=== PATIENT | male | born 1940 | race Caucasian/White ===

== ENCOUNTER 2017-11-26 07:51 | Inpatient (IN) | payer MEDICARE, OTHER, SELFPAY ==
[2017-11-12 10:12] VITALS: BP 106/60; PULSE 57; RESP 16; TEMP 36.9; O2SAT 97; BMI 27.7
[2017-11-12 11:00] LABS: Absolute Neutrophil Count 4.2 X10^3/uL (2.0-7.7); Basophil# 0.01 X10^3/uL; Basophil% 0.2 % (0-1); Eosinophil# 0.22 X10^3/uL; Eosinophils% 3.4 % (0-5); Hematocrit 39.3 % (40-54); Hemoglobin 13.3 g/dl (13.0-16.5); Lymphocyte % 23.3 % (19-41); Mean Corp Hgb Conc 33.8 g/gl (32-36); Mean Corpuscular Hgb 28.8 pg (27.0-32.0); Mean Corpuscular Volume 85.1 fL (80-94); Mean Platelet Vol. 9.3 fl (6.2-12.0); Monocyte# 0.53 X10^3/uL; Monocyte% 8.2 % (0-10); Neutrophil # 4.18 X10^3/uL (2.7-7.7); Neutrophil % 64.7 % (47-70); POSITIVE COUNT NO; POSITIVE DIFFERENTIAL NO; POSITIVE MORPHOLOGY NO; Platelet Count 118 K/mm3 (150-450); RBC Distribution Width SD 46.7 fl (35.1-43.9); Red Blood Count 4.62 M/mm3 (4.6-6.2); White Blood Count 6.5 K/mm3 (4.4-11.0)
[2017-11-12 11:13] LABS: Anion Gap 7 (5-15); BUN 22 mg/dL (7-18); BUN/Creat Ratio 22.4 RATIO (10-20); Calcium,Total 8.8 mg/dL (8.5-10.1); Chloride 108 mmol/L (98-107); Creatinine, Serum 0.98 mg/dL (0.70-1.30); EST Glomerular Filtration Rate 78 mL/min (>60); Est Glom Filt Rate - Afr Amer 95 mL/min (>60); Estimated Creatinine Clearance 58.08 ml/min; Glucose 122 mg/dL (74-106); Potassium 4.2 mmol/L (3.5-5.1); Sodium Level 139 mmol/L (136-145)
--- NOTE | 2017-11-12 21:45 | PCM.HP.BLA ---
History and Physical DATE OF SURGERY: 11/26/2017 SCHEDULED PROCEDURE: Direct anterior left total hip arthroplasty HISTORY OF PRESENT ILLNESS: This is a 77-year-old male who is been having ongoing left hip pain for several years. Patient recently in April 2017 had back surgery. Since then he has had progressively worsening pain in his left hip. Patient states his pain is aching and sharp. He has increased pain going up and down stairs, sitting for extended periods of time, and prolonged walking. Patient does have occasional start up pain. Pain can reach as high as an 8 out of 10. Patient does have pain in the left buttock and left thigh region. Patient has been through previous physical therapy. Patient denies previous surgery on the left hip. Patient states the left hip pain has been affecting his activities of daily living. X-rays of the left hip reveal severe osteoarthritis. Patient has had a previous right total hip replacement by Dr. Tafoya in 2004. After failing conservative measures and discussing all treatment options with Dr. Lewis, the patient would like to proceed with a left total hip arthroplasty. Patient does have a medical history pertinent for coronary artery disease and hypertension. Patient has had a previous heart bypass surgery in 1996. 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 Patient has had a previous stress echocardiogram in January 2017 which was negative for ischemia. Patient has obtained surgical clearance from his primary care physician and circuitry negative inspector Dr. Ramires. Patient currently denies any chest pain, shortness of breath, fevers chills, or recent infections. REVIEW OF SYSTEMS: ROS: Const: Denies anorexia, anxiety, change in appetite, fever and weight change,hard of hearing, and vision problems. CV: Denies chest pain, heart murmur, irregular heartbeat and peripheral vascular disease. Resp: Denies asthma, cough, pneumonia, sleep apnea, shortness of breath, tuberculosis and wheezing. GI: Reports heartburn, but denies constipation, diarrhea, nausea, bloody stools and vomiting, and difficulity swallowing. : . (F Genital Sx) Denies incontinence. Musculo: Reports trouble walking, but denies ambulatory dysfunction, leg swelling and weakness and limp. Skin: Denies Raynaud's, history of shingles and tattoo. Neuro: Reports numbness/tingling but denies ambulatory dysfunction, dizziness and tremor. Psych: Denies anxiety, depression, insomnia, mental illness and stress. Andreas/Lymph: Denies anemia, bleeding/bruising tendency and past transfusion. Reviewed, no changes. PAST MEDICAL HISTORY: Advance Care Plan: Other Directive, LIVING WILL Effective Date: 05/14/2016 PMH: Medical Problems: Arthritis, Coronary Artery Disease (CAD), Hypercholesterolemia, Aneurysm, High Blood Pressure Accidents: None Surgical Hx: Heart Bypass (CABG) - (1996) [facility] Tonsillectomy - (1946) [place] Hip Replacement - (2004) RT [facility] [facility] [place] [facility] [place] Lower Abdominal Anuresym Back - (2016) Anesthesia Complications: Nausea, Vomiting Assistive Devices: Glasses, Dentures Reviewed, no changes. SOCIAL HISTORY: SH: Marital: .Occupation: Retired.Work Status: Retired - (2000).Hand Dominance: Right-handed. Personal Habits: Smoking: Patient is a former smoker.Cigarette Use: Former - 2PKS/DAY- 25YRS.Alcohol: Denies use.Drug Use: Denies Use.Enjoy Exercising: Exercises 1-3 x/month. Reviewed, no changes. VITALS: Ht: 67 Wt: 177lb Wt k.287 BMI: 27.7 BP: 100/70 Pulse: 68 Resp: 16 T: 97.8 T: 36.6C ALLERGIES: No Known Drug Allergy MEDICATIONS: Simvastatin 40 mg 1 po qd, Isosorbide 10 mg one A day, Atenolol 25 mg 1 PO qd, Omeprazole 20 mg 1 PO daily, Amlodipine Besylate 5 mg 1 by mouth every day, Lisinopril 10 mg 1 by mouth every day, Clopidogrel Bisulfate 75 mg 1 by mouth every day, Tamsulosin HCL 0.4 mg 1 by mouth every day, Aspirin 81 mg 1 by mouth every day, Preservision Areds one PO daily PRE-OP EXAM: General appearance:NORMAL Other: Eyes: Conjunctivae and lids: NORMAL Pupils: ERR Ears, Nose, Mouth, and Throat: NORMAL Other: Inspection of lips, teeth and gums: NORMAL Other: Neck: Examination of neck: no masses noted. Respiratory: Assessment of respiratory effort: NORMAL Other: Ausculation of lungs: clear to ausculation no wheeses, ronchi or rales. Cardiovascular: Ausculation of heart: regular rate and rhythem, no mummurs, gallops or rubs. Exam of carotid arteries: NORMAL Other: Gastrointestinal: Exam of abdomen: soft, nontender, nondistended bowel sounds present. PHYSICAL EXAMINATION: Patient walks with an antalgic gait. Patient has increased pain with left hip range of motion. Internal rotation is to neutral. Flexion to 90?. Sensations intact to light touch. IMAGING STUDIES: 1. X-rays were obtained at [facility] on September 25, 2017 which reveals joint space narrowing, subchondral sclerosis, and osteophyte formation consistent with severe osteoarthritis. There is also evidence of recent lumbar fusion with hardware and previous right total hip arthroplasty. IMPRESSION: 1. Severe left hip osteoarthritis 2. Presence of right total hip arthroplasty 3. Coronary artery disease with previous heart bypass in 1996 4. History of stent placement in the aortoiliac secondary to aneurysm 5. Hyperlipidemia 6. Hypertension PLAN: Dr. Lewis did discuss and review with the patient all treatment options including surgical versus nonsurgical. Patient wishes to proceed with above-stated procedure. Potential risks, benefits, and complications of this procedure were discussed in detail including but not limited to , infection, nerve and blood vessel damage, persistent pain, numbness, tingling, paresthesias, blood clot, pulmonary embolism, and requirement for further surgery. The patient expressed full understanding has no further questions for the doctor. Patient does agree to proceed with the above-stated procedure and has signed the surgery consent form. Patient has obtained surgical clearance from primary care physician and circuitry negative inspector. We will stop patient's Plavix and aspirin with recommendations from circuitry negative inspector. ___ I have re-examined the patient. There are no clinical changes since date of exam. ___ See progress notes for changes. ___ Dictated on admission Date: Time: Signature:
--- NOTE | 2017-11-12 21:56 | HP.PCM_ITS ---
History and Physical DATE OF SURGERY: 11/26/2017 SCHEDULED PROCEDURE: Direct anterior left total hip arthroplasty HISTORY OF PRESENT ILLNESS: This is a 77-year-old male who is been having ongoing left hip pain for several years. Patient recently in April 2017 had back surgery. Since then he has had progressively worsening pain in his left hip. Patient states his pain is aching and sharp. He has increased pain going up and down stairs, sitting for extended periods of time, and prolonged walking. Patient does have occasional start up pain. Pain can reach as high as an 8 out of 10. Patient does have pain in the left buttock and left thigh region. Patient has been through previous physical therapy. Patient denies previous surgery on the left hip. Patient states the left hip pain has been affecting his activities of daily living. X-rays of the left hip reveal severe osteoarthritis. Patient has had a previous right total hip replacement by Dr. Tafoya in 2004. After failing conservative measures and discussing all treatment options with Dr. Lewis, the patient would like to proceed with a left total hip arthroplasty. Patient does have a medical history pertinent for coronary artery disease and hypertension. Patient has had a previous heart bypass surgery in 1996. 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 Patient has had a previous stress echocardiogram in January 2017 which was negative for ischemia. Patient has obtained surgical clearance from his primary care physician and patient access registrar Dr. Ramires. Patient currently denies any chest pain, shortness of breath, fevers chills, or recent infections. REVIEW OF SYSTEMS: ROS: Const: Denies anorexia, anxiety, change in appetite, fever and weight change, hard of hearing, and vision problems. CV: Denies chest pain, heart murmur, irregular heartbeat and peripheral vascular disease. Resp: Denies asthma, cough, pneumonia, sleep apnea, shortness of breath, tuberculosis and wheezing. GI: Reports heartburn, but denies constipation, diarrhea, nausea, bloody stools and vomiting, and difficulity swallowing. : . (F Genital Sx) Denies incontinence. Musculo: Reports trouble walking, but denies ambulatory dysfunction, leg swelling and weakness and limp. Skin: Denies Raynaud's, history of shingles and tattoo. Neuro: Reports numbness/tingling but denies ambulatory dysfunction, dizziness and tremor. Psych: Denies anxiety, depression, insomnia, mental illness and stress. Andreas/Lymph: Denies anemia, bleeding/bruising tendency and past transfusion. Reviewed, no changes. PAST MEDICAL HISTORY: Advance Care Plan: Other Directive, LIVING WILL Effective Date: 05/14/2016 PMH: Medical Problems: Arthritis, Coronary Artery Disease (CAD), Hypercholesterolemia, Aneurysm, High Blood Pressure Accidents: None Surgical Hx: Heart Bypass (CABG) - (1996) [facility] Tonsillectomy - (1946) [place] Hip Replacement - (2004) [place] [facility] [place] [facility] [place] Abdominal Anuresym Back - (2016) Anesthesia Complications: Nausea, Vomiting Assistive Devices: Glasses, Dentures Reviewed, no changes. SOCIAL HISTORY: SH: Marital: .Occupation: Retired.Work Status: Retired - (2000).Hand Dominance: Right-handed. Personal Habits: Smoking: Patient is a former smoker.Cigarette Use: Former - 2PKS/DAY- 25YRS.Alcohol: Denies use.Drug Use: Denies Use.Enjoy Exercising: Exercises 1-3 x/month. Reviewed, no changes. VITALS: Ht: 67 Wt: 177lb Wt k.287 BMI: 27.7 BP: 100/70 Pulse: 68 Resp: 16 T: 97.8 T: 36.6C ALLERGIES: No Known Drug Allergy MEDICATIONS: Simvastatin 40 mg 1 po qd, Isosorbide 10 mg one A day, Atenolol 25 mg 1 PO qd, Omeprazole 20 mg 1 PO daily, Amlodipine Besylate 5 mg 1 by mouth every day, Lisinopril 10 mg 1 by mouth every day, Clopidogrel Bisulfate 75 mg 1 by mouth every day, Tamsulosin HCL 0.4 mg 1 by mouth every day, Aspirin 81 mg 1 by mouth every day, Preservision Areds one PO daily PRE-OP EXAM: General appearance:NORMAL Other: Eyes: Conjunctivae and lids: NORMAL Pupils: ERR Ears, Nose, Mouth, and Throat: NORMAL Other: Inspection of lips, teeth and gums: NORMAL Other: Neck: Examination of neck: no masses noted. Respiratory: Assessment of respiratory effort: NORMAL Other: Ausculation of lungs: clear to ausculation no wheeses, ronchi or rales. Cardiovascular: Ausculation of heart: regular rate and rhythem, no mummurs, gallops or rubs. Exam of carotid arteries: NORMAL Other: Gastrointestinal: Exam of abdomen: soft, nontender, nondistended bowel sounds present. PHYSICAL EXAMINATION: Patient walks with an antalgic gait. Patient has increased pain with left hip range of motion. Internal rotation is to neutral. Flexion to 90?. Sensations intact to light touch. IMAGING STUDIES: 1. X-rays were obtained at [facility] on September 25, 2017 which reveals joint space narrowing, subchondral sclerosis, and osteophyte formation consistent with severe osteoarthritis. There is also evidence of recent lumbar fusion with hardware and previous right total hip arthroplasty. IMPRESSION: 1. Severe left hip osteoarthritis 2. Presence of right total hip arthroplasty 3. Coronary artery disease with previous heart bypass in 1996 4. History of stent placement in the aortoiliac secondary to aneurysm 5. Hyperlipidemia 6. Hypertension PLAN: Dr. Lewis did discuss and review with the patient all treatment options including surgical versus nonsurgical. Patient wishes to proceed with above- stated procedure. Potential risks, benefits, and complications of this procedure were discussed in detail including but not limited to , infection , nerve and blood vessel damage, persistent pain, numbness, tingling, paresthesias, blood clot, pulmonary embolism, and requirement for further surgery. The patient expressed full understanding has no further questions for the doctor. Patient does agree to proceed with the above-stated procedure and has signed the surgery consent form. Patient has obtained surgical clearance from primary care physician and patient access registrar. We will stop patient's Plavix and aspirin with recommendations from patient access registrar. ___ I have re-examined the patient. There are no clinical changes since date of exam. ___ See progress notes for changes. ___ Dictated on admission Date: Time: Signature:
[2017-11-26] VITALS (9 sets, daily range): BP systolic 124–150; BP diastolic 57–79; PULSE 54–69; RESP 16–18; TEMP 36–36.8; O2SAT 94–98; BMI 27.7
[2017-11-26] MEDS: Celecoxib 200 MG Capsule 400 MG PO (08:36)
[2017-11-26] MEDS: Acetaminophen 500 MG Tablet 1000 MG PO ×3 (08:37→21:00)
[2017-11-26] MEDS: oxyCODONE HCl Cr 10 MG Tablet PO (08:37)
--- NOTE | 2017-11-26 10:35 | RAD_ITS ---
STUDY: X-RAY/FLUOROSCOPY - PELVIS AND LEFT HIP REASON FOR EXAM: Male, 77 years old. Right SAHIL. TECHNIQUE: Fluoroscopic assistance was provided to Dr. Slaughter. 3 intraoperative fluoroscopic spot views are submitted. COMPARISON: CT abdomen and pelvis June 03, 2017 FINDINGS: Images demonstrate prior bilateral total hip arthroplasties with bilateral bipolar hip prostheses. The left is new since the earlier CT. On the right, the femoral prosthesis is revised to include a metal ball at the femoral head. On the final image, the stem of the prosthesis remains well seated in the stillaguamish femur, and the ball of the prosthesis is in anatomic alignment with the acetabular prosthesis. Gas lucencies in the adjacent soft tissues are consistent with a surgical wound. RAD/Hip 1 view with Pelvis IMPRESSION: Revision of right total hip arthroplasty. Electronically Signed: Kenny Mike MD at 13:23 EDT , Service support ,
[2017-11-26] MEDS: Cefazolin 2 GM in 0.9% Normal Saline 100 ML IV (10:40)
--- NOTE | 2017-11-26 12:07 | OP.PCM_ITS ---
Report of Operation Date of Procedure: 11/26/17 Pre-Operative Diagnosis: Left hip primary osteoarthritis Post-Operative Diagnosis: Left hip primary osteoarthritis Surgery/Procedure Performed:: Left direct anterior total hip replacement Description of Surgical Findings:: stAble hip with equal leg lengths social worker palliative care: [place] Ruth Type of Anesthesia:: Spinal Anesthesiologist: Oswaldo Keller Special Medications: 2 g Ancef, 1 g TXA at incision, 1 g TXA closure, 10 mg Decadron, joint cocktail (5 mg Duramorph, 30 mL of 0.5% Ropivicaine, 1000 units of epinephrine, 30 mg of Toradol) Specimen's removed: Bony cuts Estimated Blood Loss (mL): 150 Fluids Replaced: 2000 mL crystalloid Description of Procedure: Components used: 1. Accolade 2 Phillip femoral stem size 9 127? 2. [place] trident acetabular shell size 60 mm 3. Phillip X3 polyethylene G 4. [place] Biolox delta 36mm, 2.5mm femoral head Brief history operative indications: 77 yo m who failed conservative measures for their hip osteoarthritis. X-rays were consistent with osteoarthritis including joint space narrowing, osteophyte formation and subchondral cysts. Total hip replacement was discussed with the patient with risks and benefits including but not limited to blood loss, DVTs, PEs, neurovascular damage, dislocation, general risks of anesthesia including loss of life. Patient demonstrated an understanding medical clearance is obtained the patient was consented for surgery. Procedure: On the date of procedure the patient's L hip was marked in the preoperative area. Patient was then taken back to the operating room where anesthesia assumed control of the C-spine and airway and administered anesthetic. Patient was transferred to the operating table and placed in the supine position. The hips were placed at the break of the bed and a sacral bump was placed. The L lower extremity was then prepped out in a sterile fashion using chlorhexidine while the surgeon scrubbed. The PA was vital in the positioning of the patient. Upon reentering the room the L lower extremity was draped in the standard orthopedic fashion and the incision was marked. A timeout was called and everyone agreed upon the side, the site, the procedure be performed, antibody given, and patient's identity. At this time incision was made through skin, subcutaneous tissue, and fat down to fascia. The fascia was then incised and the TFL was retracted laterally. A retractor was placed on the lateral border of the femoral neck. Attention was directed to the inferior portion of the approach and all crossing vessels were identified and appropriately coagulated. A retractor was then placed on the medial portion of the femoral neck. The anterior capsule was then cleared of all soft tissue and then H shaped capsulotomy was made. The retractors were then placed inside the capsule. The femoral neck was identified and a cleanup cut was made. At this time a power corkscrew was used to remove the femoral head. Attention was then turned toward the acetabulum where the soft tissues were appropriately retracted and the acetabulum was sequentially reamed to 59 mm. A 60 mm cup was then selected and impacted into place. Acetabular liner was impacted into place and locking mechanism was verified. The position of the acetabular cup was then verified under live fluoroscopy. Attention was then turned to the femur. Soft tissue releases on the medial and lateral femoral neck were appropriately done, the leg was externally rotated and lateralized. A Joel retractor was placed medially and proximally to the greater trochanter this allowed appropriate visualization and exposure of the femoral canal. Rongeour was then used to remove excess lateral bone. A canal finder and entry broach were used to open the proximal canal. Once we verified we were down the femoral canal we subsequently broached up to a size 9 femur. The appropriate neck was placed in the previously selected head was trialed with a 2.5 mm neck. Traction was pulled and the hip was reduced with internal rotation. Once it was appropriately reduced and stability was checked. There was minimal shuck, equal leg lengths and appropriate stability with hyperextension and external rotation as well as with 90? flexion and internal rotation. Fluoroscopy was then also used to verify the position of the components and leg lengths using the contralateral side for comparison. The trial components were then dislocated the proximal femur was again exposed and the components were removed from the wound. The final components were verified and opened. The wound was copiously irrigated out with normal saline. The acetabulum was checked for any residual debris. The final components were placed and impacted. Traction and internal rotation were again used to reduce the hip. After adequate reduction the hip remained stable with appropriate leg lengths. The final components were once again checked with live fluoroscopy and were found to be satisfactory. The wound was then copiously irrigated with normal saline once more, and hemostasis was obtained. Closure was then done using #1 Vicryl runner to close the fascia. A 2-0 vicryl interuppted sutures were used to close the subcutaneous skin. A 3-0 Monocryl and Steri-Strips were used for final skin closure. A Silverlon dressing was placed. Patient was awakened by anesthesia and transferred to the [facility]. Patient was then transferred to the PACU for recovery. Postoperative plan: Patient will get 24 hours postop antibiotics. Patient will get in-house physical therapy and will be weight-bear as tolerated. Patient will follow up in office in 2 weeks for a wound check and x-rays. Grafts/Implants Used: Phillip Accolade 2 - Complications NONE - Admit VTE Documentation VTE Present on Admission: No VTE Mechan Device Prophylaxis: SCD's, Thigh High DHAVAL Hose VTE Pharm Prophylaxis ordered?: Yes
--- NOTE | 2017-11-26 12:42 | RAD_ITS ---
STUDY: X-RAY - PELVIS AND LEFT HIP REASON FOR EXAM: Male, 77 years old. Postop. TECHNIQUE: Radiological exam, hip, unilateral, with pelvis when performed; 1 view COMPARISON: CT abdomen and pelvis June 03, 2017. FINDINGS: There is a non-specific bowel gas pattern. Gas lucencies overlap the left hip, consistent with recent surgery. There is narrowing with cortical sclerosis of the sacroiliac joints, consistent with degenerative osteoarthritic changes. Normal visualized iliac wings and sacrum. Normal bilateral superior and inferior pubic rami. There are stable degenerative changes of the pubic symphysis with articular narrowing. Normal bilateral ischial tuberosities. There have been bilateral total hip arthroplasties. The left is new since the 2017 CT. Following resection of the left femoral head and neck, and middle bipolar hip prosthesis was placed. The acetabular and femoral components appear well seated, and in anatomic alignment. Based on the contour of the femoral prosthesis on earlier fluoroscopic images, this appears to be the hip in view on that study. The right bipolar hip prosthesis appears well seated and in anatomic alignment. There is no demonstrated acute fracture. RAD/Hip Min 2 Views (Portable) IMPRESSION: Post left total hip arthroplasty. Electronically Signed: Kenny Mike MD at 13:28 EDT , Service support ,
[2017-11-26] MEDS: Scopolamine 1mg/72hr Patch 1 PATCH TD (12:50)
[2017-11-26] MEDS: Lactated Ringers 1,000 ML 125 ML IV ×3 (13:24→22:48)
[2017-11-26] MEDS: oxyCODONE 5 MG Tablet PO (16:18)
[2017-11-26] MEDS: Cefazolin 1 GM/50 ML BAG IV (18:35)
[2017-11-26] MEDS: Isosorbide DN 10 MG Tablet PO (20:59)
[2017-11-26] MEDS: Tamsulosin HCl 0.4 MG Capsule PO (20:59)
[2017-11-26] MEDS: Atenolol 25 MG Tablet PO (20:59)
[2017-11-26] MEDS: Aspirin 325 MG Tablet PO (20:59)
[2017-11-26] MEDS: Atorvastatin Calcium 10 MG Tablet PO (20:59)
[2017-11-26] MEDS: Lisinopril 20 MG Tablet PO (20:59)
[2017-11-26] MEDS: Senna/Docusate Sodium 1 Tablet 2 TABLET PO (21:00)
[2017-11-27] MEDS: Cefazolin 1 GM/50 ML BAG IV (02:47)
[2017-11-27 03:00] VITALS: BP 145/77; PULSE 62; RESP 16; TEMP 36.8; O2SAT 96
[2017-11-27] MEDS: oxyCODONE 5 MG Tablet PO (05:23)
[2017-11-27 06:24] LABS: Hematocrit 33.3 % (40-54); Hemoglobin 11.4 g/dl (13.0-16.5); Mean Corp Hgb Conc 34.2 g/gl (32-36); Mean Corpuscular Hgb 29.2 pg (27.0-32.0); Mean Corpuscular Volume 85.2 fL (80-94); Mean Platelet Vol. 9.3 fl (6.2-12.0); Platelet Count 112 K/mm3 (150-450); RBC Distribution Width CV 14.2 % (11.6-14.6); RBC Distribution Width SD 43.3 fl (35.1-43.9); Red Blood Count 3.91 M/mm3 (4.6-6.2); White Blood Count 8.2 K/mm3 (4.4-11.0)
[2017-11-27 06:30] LABS: Scan Indicated on CBC? Y/N NO
[2017-11-27 06:41] LABS: Anion Gap 7 (5-15); BUN 14 mg/dL (7-18); Calcium,Total 8.4 mg/dL (8.5-10.1); Chloride 106 mmol/L (98-107); Creatinine, Serum 0.78 mg/dL (0.70-1.30); EST Glomerular Filtration Rate 103 mL/min (>60); Est Glom Filt Rate - Afr Amer 124 mL/min (>60); Estimated Creatinine Clearance 56.92 ml/min; Glucose 108 mg/dL (74-106); Potassium 3.8 mmol/L (3.5-5.1); Sodium Level 139 mmol/L (136-145)
[2017-11-27] MEDS: Aspirin 325 MG Tablet PO (08:07)
[2017-11-27 08:08] VITALS: BP 130/78; PULSE 66; RESP 16; TEMP 36.6; O2SAT 97
[2017-11-27 08:15] VITALS: PULSE 68
[2017-11-27] MEDS: Acetaminophen 500 MG Tablet 1000 MG PO (08:57)
--- NOTE | 2017-11-27 09:31 | PCM.PN.ORT ---
Subjective: The patient was sitting in bedside chair upon examination. Patient denies any chest pain, shortness of breath, lightheadedness, nausea or vomiting, or calf pain. Patient did report dizziness initially while getting up but this has resolved. Pain is controlled on medications. No adverse overnight events. Overall patient is doing well and does wish to go home today. Physical therapy outpatient has been set up already. Objective: Vital signs stable and afebrile. Patient is able to plantarflex and dorsiflex actively. Sensation is intact to light touch to saphenous, sural, superficial and deep peroneal, and tibial distribution. Dressing is clean dry and intact. Negative Homans bilaterally, negative signs and symptoms of DVT. - Physical Exam General: Alert, Oriented x3, Cooperative, No apparent distress Vital Signs Temp Pulse Resp BP Pulse Ox 97.9 F 66 16 130/78 H 97 11/27/17 08:08 11/27/17 08:08 11/27/17 08:08 11/27/17 08:08 11/27/17 08:08 Oxygen Delivery Method Room Air Weight: 80.286 kg Body Mass Index (BMI) 27.7 Intake and Output for Last 24 Hours 11/25/17 11/26/17 11/27/17 23:59 23:59 23:59 Intake Total 4240 / 4240 1965 / 1965 Output Total 350 / 350 490 / 490 Balance 3890 / 3890 1475 / 1475 Laboratory Tests Past 24 Hrs 11/27/17 11/27/17 05:54 05:54 WBC 8.2 RBC 3.91 L Hgb 11.4 L Hct 33.3 L MCV 85.2 MCH 29.2 MCHC 34.2 RDW 14.2 RDW Differential 43.3 Plt Count 112 L MPV 9.3 Sodium 139 Potassium 3.8 Chloride 106 Carbon Dioxide 26.0 Anion Gap 7 BUN 14 Creatinine 0.78 Estim Creat Clear Calc 56.92 Est GFR (MDRD) Af Amer 124 Est GFR (MDRD) Non-Af 103 BUN/Creatinine Ratio 18.0 Glucose 108 H Calcium 8.4 L Medical Necessity - Tobacco Use Smoking Status: Former smoker Assessment/Plan 1. S/P left total hip arthroplasty POD #1 2. Continue Pain Medications: Tylenol and OxyIR 3. DVT Prophylaxis: Aspirin 325 mg twice daily 4. PT/OT: Weightbearing as tolerated 5. H & H: 11.4/33.3, asymptomatic 6. Encouraged Incentive Spirometry 7. Disposition: Orthopedically stable. Plan is for discharge home today. Patient will follow-up per postop instructions. Prescriptions will be E scribed to [facility].
--- NOTE | 2017-11-27 09:39 | DCINST_ITS ---
Discharge Diet: No Restrictions Discharge Activity: May Not Drive - while taking narcotic pain medications. May shower in (days): 1 - Turned dressing away from water Ice area for (Minutes): 20 - Every 1-2 hours while awake Weight Bearing Status: Weight bearing as tolerated Additional Activity Instructions:: Wear elastic stockings for 2 weeks. DO NOT use alcohol with narcotic pain medication. DO NOT make important decisions while taking narcotic medication. If you have problems with taking your medication (rash, itching, nausea, etc.) call the office at once. Call your doctor if your incision/area has: Increased Pain/ Swelling, Increased Redness, Foul Smelling Discharge Call your doctor if you observe: Fever of 101 or Higher Remove Dressing in (days):: 4 - Okay to remove dressing on December 01, 2017 Additional Instructions: Follow [facility] postop instructions Do not take baby aspirin 81 mg while taking full dose 325 mg aspirin Allergies/Adverse Reactions: Allergies No Known Allergies Allergy (Verified 11/12/17 09:56) Medications to take at Discharge Amlodipine [Norvasc] 5 mg PO DAILY 11/12/17 Atenolol [Tenormin (beta humaira)] 25 mg PO BID 11/12/17 Clopidogrel Bisulfate [Plavix] 75 mg PO DAILY 11/12/17 Isosorbide DN [Isordil] 10 mg PO BID 11/12/17 Lisinopril 20 mg PO BID 11/12/17 Omeprazole [Prilosec] 20 mg PO DAILY 11/12/17 Simvastatin 20 mg PO QHS 11/12/17 Tamsulosin HCl [Flomax] 0.4 mg PO DAILY 11/12/17 Vit A/Vit C/Vit E/Zinc/Copper [Preservision Areds Softgel] 1 each PO DAILY 11/12 Acetaminophen [Tylenol] 1,000 mg PO Q8 #90 tab 11/27/17 Aspirin 325 mg PO BIDCM #30 tab 11/27/17 Oxycodone [Oxyir] 5 - 10 mg PO Q4H PRN PRN 5 Days #60 tablet 11/27/17 Senna/Docusate Sodium [Senokot-S] 2 tab PO BID #20 tab 11/27/17 The following prescriptions were given: Oxycodone [Oxyir] 5 - 10 mg PO Q4H PRN PRN 5 Days #60 tablet PRN Reason: Mod-Severe Pain (4-06/03) Acetaminophen [Tylenol] 1,000 mg PO Q8 #90 tab Aspirin 325 mg PO BIDCM #30 tab Senna/Docusate Sodium [Senokot-S] 2 tab PO BID #20 tab Primary Care Physician: John Bernstein MD [Primary Care Provider] - Please Follow Up With: [facility] When: 12/01/17 @ 7:30 am Please Follow Up With: Andrey Johnson PA-C When: 12/10/17 @ 10:00 am
[2017-11-27] MEDS: Pantoprazole Sodium 20 MG Tablet PO (10:51)
[2017-11-27] MEDS: Clopidogrel Bisulfate 75 MG Tablet PO (10:51)
[2017-11-27] MEDS: Lisinopril 20 MG Tablet PO (10:51)
[2017-11-27] MEDS: Atenolol 25 MG Tablet PO (10:51)
[2017-11-27] MEDS: amLODIPine 5 MG Tablet PO (10:51)
[2017-11-27] MEDS: Senna/Docusate Sodium 1 Tablet 2 TABLET PO (10:51)
[2017-11-27] MEDS: Isosorbide DN 10 MG Tablet PO (10:51)
[2017-11-27] MEDS: Famotidine 20 MG Tablet PO (10:51)
[2017-11-27 13:24] VITALS: BP 135/74; PULSE 69; RESP 16; TEMP 36.7; O2SAT 98
== END 2017-11-27 13:43 | disposition home or self-care (01) | DRG 470 ==
LOC: ACINP 07:53 → MS3 08:09
PROVIDERS: Admitting Provider Specialist; Family Provider Family Medicine; PCP Family Medicine; Visit Provider Specialist
PROC: 0SRB0JZ Replacement of Left Hip Joint with Synthetic Substitute, Open Approach (ICD-10-PCS; CPT 27284; principal; 2017-11-26 09:50)
DX: M16.12 Unilateral primary osteoarthritis, left hip (principal); Z96.641 Presence of right artificial hip joint; E78.5 Hyperlipidemia, unspecified; I25.10 Atherosclerotic heart disease of native coronary artery without angina pectoris; K21.9 Gastro-esophageal reflux disease without esophagitis; I10 Essential (primary) hypertension; Z95.1 Presence of aortocoronary bypass graft; Z87.891 Personal history of nicotine dependence
CPT/HCPCS: 36415; 73501; 73502; 76000; 80048; 85025; 85027; 87081; 97110; 97116; 97162; 97165; 97530; 97802; 99251; J7120; G0463

== ENCOUNTER → 2019-03-03 06:58 | Outpatient (CLI) | payer MEDICARE, OTHER, SELFPAY ==
[2018-08-11 15:40] VITALS: BMI 28.6
[2019-03-03 09:05] LABS: AST(SGOT) 16 U/L (15-37); Alanine Aminotransfer ALT/SGPT 17 U/L (16-61); Albumin, Serum 3.8 g/dL (3.2-5.0); Alkaline Phosphatase 154 U/L (45-117); Bilirubin, Direct 0.13 mg/dL (0.00-0.30); Cholesterol 112 mg/dL (200); Globulin 3.6 g/dL (2.2-4.2); High Density Lipoprotein 29 mg/dL; Protein, Total 7.4 g/dL (6.4-8.2); Triglycerides 284 mg/dL; Very Low Density Lipoprotein 57 mg/dL (5-40)
== END ==
PROVIDERS: Family Provider Family Medicine; PCP Family Medicine; Referring Provider Internal Medicine Cardiovascular Disease; Visit Provider Internal Medicine Cardiovascular Disease
DX: I25.10 Atherosclerotic heart disease of native coronary artery without angina pectoris (principal); E78.2 Mixed hyperlipidemia
CPT/HCPCS: 36415; 80061; 80076

== ENCOUNTER → 2019-04-13 13:46 | Outpatient (CLI) | payer MEDICARE, OTHER, SELFPAY ==
[2019-03-25 11:05] VITALS: BMI 28.8
--- NOTE | 2019-04-13 13:48 | ECHOD_ITS ---
Reason For Study: S/P CABG Procedure This was a 2D Doppler, Color Flow transthoracic echocardiogram. Exam performed in department. Left Ventricle Mild concentric left ventricular hypertrophy. The estimated ejection fraction is 65 %. Stage 1 diastolic dysfunction. No regional wall motion abnormalities noted. Right Ventricle Mildly dilated right ventricle. Normal systolic function. Atria Normal left atrium. Normal right atrium. Normal atrial septum. Mitral Valve The mitral valve is structurally normal. No prolapse or stenosis seen. Tricuspid Valve Normal tricuspid valve. Trivial tricuspid valve insufficiency. Right ventricular systolic pressure estimated to be 33 mmHg. Aortic Valve Trisinus/trileaflet aortic valve. Trivial aortic valve insufficiency. Pulmonic Valve Normal pulmonic valve. Trivial pulmonic valve insufficiency. Great Vessels Normal aortic root. Moderate atherosclerosis of the aortic arch. Normal inferior vena cava. Inferior vena cava collapse with sniff. Pericardium/Pleural No pericardial effusion. MMode/2D Measurements & Calculations LVIDd: 3.7 cm IVSd: 1.3 cm Ao root diam: 3.4 cm LVIDs: 2.6 cm LVPWd: 1.3 cm RVDd: 3.8 cm FS: 31.7 % LAV(MOD-bp): 58.6 ml LVAd ap4: 25.8 cm2 SV(MOD-sp4): 43.8 ml LAV(MOD-bp) Indexed: 30.2 ml/m2 EDV(MOD-sp4): 68.6 ml LAV(MOD-sp2): 54.5 ml EDV(sp4-el): 72.1 ml LAV(MOD-sp4): 63.2 ml LVAs ap4: 14.2 cm2 ESV(MOD-sp4): 24.8 ml ESV(sp4-el): 23.7 ml EF(MOD-sp4): 63.8 % EF(sp4-el): 67.2 % SV(sp4-el): 48.5 ml LA A4 area: 20.9 cm2 LA dimension(2D): 4.0 cm RA A4 area: 13.5 cm2 Time Measurements MV dec time: 0.34 sec Doppler Measurements & Calculations MV E max galen: 54.6 cm/sec Lat Peak E' Galen: 6.5 cm/sec Med Peak E' Galen: 6.4 cm/sec MV A max galen: 74.0 cm/sec E/E' lat: 8.4 E/E' med: 8.6 MV E/A: 0.74 Ao V2 max: 152.6 cm/sec AI max galen: 353.0 cm/sec LV V1 max: 106.6 cm/sec Ao max P.3 mmHg AI max P.1 mmHg LV V1 max P.5 mmHg AI dec slope: 174.0 cm/sec2 AI P1/2t: 594.4 msec PA V2 max: 91.3 cm/sec TR max galen: 253.4 cm/sec TR max P.7 mmHg Interpretation Summary Mild concentric left ventricular hypertrophy. The estimated ejection fraction is 65 %. Stage 1 diastolic dysfunction. Mildly dilated right ventricle. Trivial tricuspid valve insufficiency. Right ventricular systolic pressure estimated to be 33 mmHg. Trivial aortic valve insufficiency. Compared to echo report dated 06/16/2013, LV function has remained the same, but RVSP has increased from 25 to 33 mm Hg, Ordering Physician: Florencio Ramires Referring Physician: OCTAVIO BOSWELL Performed By: Aliya Davenport RDCS
== END ==
PROVIDERS: Family Provider Family Medicine; PCP Family Medicine; Referring Provider Internal Medicine Cardiovascular Disease; Visit Provider Internal Medicine Cardiovascular Disease
DX: E78.2 Mixed hyperlipidemia (principal); I10 Essential (primary) hypertension; I25.10 Atherosclerotic heart disease of native coronary artery without angina pectoris; Z95.828 Presence of other vascular implants and grafts
CPT/HCPCS: 93306

== ENCOUNTER → 2019-04-15 09:17 | Outpatient (CLI) | payer MEDICARE, OTHER, SELFPAY ==
[2019-03-25 11:05] VITALS: BMI 28.8
--- NOTE | 2019-04-15 09:18 | STEWCON_ITS ---
Reason For Study: SOB, DYSPNEA, CAD Stress Results Protocol: Stress Echocardiogram Maximum Predicted HR: 140 bpm Target HR: 119 bpm % Maximum Predicted HR: 87 % DurationHeart Rate Stage (mm:ss) (bpm) BP Comment BASELINE 73 138/78DILUTED DEFINITY USED 3 CC JOSE PROTOCOL- STAGE 1 3:00 101 130/76NO CP JOSE PROTOCOL- STAGE 2 3:00 109 148/70NO CP, SL SOB JOSE PROTOCOL- STAGE 3 0:37 122 / SOB RECPVERY 86 130/68PO 97% SOB SUBSIDED Stress Duration: 6:37 mm:ss Maximum Stress HR: 122 bpm Baseline Echocardiogram Findings The estimated ejection fraction is 60 %. Stress Echo Wall motion Data Resting WM Intermediate WM Stress WM Resting Wall Motion Wall Motion Stress No regional wall motion No regional wall motion abnormalities noted. abnormalities noted. EKG Data The baseline ECG displays normal sinus rhythm. The patient exercised according to the regular Jose protocol for a total duration of 6:37. The maximum heart rate attained was 122 beats per minute. This was 87% of maximum predicted heart rate. The patient exercised into stage 3 of the Jose protocol. During stress, there were no ST or T wave changes noted to suggest ischemia. No clinical angina was noted. Interpretation Summary The estimated ejection fraction is 60 %. Normal, adequate, treadmill echocardiogram. Negative for ischemia by EKG and echocardiographic criteria. No anginal symptoms noted. Rare PVC noted. Appropriate blood pressure response to exercise. Final LVEF is 75%. Test terminated due to the attainment of target heart rate and dyspnea. Decreased sensitivity due to poor echo windows requiring Definity agent. No complications. The study was technically difficult. Contrast injection was performed. Ordering Physician: Florencio Ramires Referring Physician: Florencio Ramires Performed By: Mp Orozco RCS
== END ==
PROVIDERS: Family Provider Family Medicine; PCP Family Medicine; Referring Provider Internal Medicine Cardiovascular Disease; Visit Provider Internal Medicine Cardiovascular Disease
DX: I25.10 Atherosclerotic heart disease of native coronary artery without angina pectoris (principal); R06.09 Other forms of dyspnea
CPT/HCPCS: 93017; 93350; Q9957; A4216; C8928

== ENCOUNTER 2019-10-27 14:08 | Inpatient (IN) | payer MEDICARE, OTHER, SELFPAY ==
[2019-03-25 11:05] VITALS: BMI 28.8
[2019-10-27] VITALS (7 sets, daily range): BP systolic 122–146; BP diastolic 64–80; PULSE 51–71; RESP 15–20; TEMP 36.3–36.8; O2SAT 92–96; BMI 28.2; BMI 28.3
--- NOTE | 2019-10-27 14:21 | EKG12_ITS ---
Test Reason : CP Blood Pressure : / mmHG Vent. Rate : 068 BPM Atrial Rate : 068 BPM P-R Int : 148 ms QRS Dur : 086 ms QT Int : 420 ms P-R-T Axes : 059 033 076 degrees QTc Int : 446 ms Normal sinus rhythm Minimal voltage criteria for LVH, may be normal variant Borderline ECG Confirmed by SARAH CAMPA, BENEDICTO ([id number]), medical editor HAM ALEXANDRA ([id number]) on 10/29/2019 8:09:01 AM Referred By: TI Confirmed By:WENDY SMITH MD
--- NOTE | 2019-10-27 14:21 | RAD_ITS ---
STUDY: X-RAY CHEST REASON FOR EXAM: Male, 79 years old. CHEST PAIN TECHNIQUE: Single AP portable view of the chest. COMPARISON: Comparison is made with prior study dated January 12, 2010. FINDINGS: EKG electrodes are seen. Mild increased markings at the lung bases suggestive of linear atelectasis superimposed on scarring. There is no demonstrated pleural abnormality. Sternal cerclage wires and vascular clips are present from a prior sternotomy and coronary artery bypass graft procedure (CABG). Normal mediastinum and abhay. Normal visualized pulmonary arteries. There is atherosclerotic calcification of the aortic arch with tortuosity. Normal visualized thoracic spine. There is degenerative osteoarthritis of the bilateral shoulders. There is no demonstrated abnormality of the visualized soft tissue structures of the upper abdomen. RAD/Chest 1 View (Portable) IMPRESSION: Mild increased markings at the lung bases suggestive of linear atelectasis and/or scarring. Electronically Signed: Galindo Raymond, at 14:58 EST , Service support ,
[2019-10-27 14:48] LABS: Absolute Lymphocyte Count 1.38 X10^3/uL (0.83-4.51); Absolute Neutrophil Count 5.7 X10^3/uL (2.0-7.7); Basophil# 0.02 X10^3/uL; Basophil% 0.3 % (0-1); Eosinophil# 0.25 X10^3/uL; Eosinophils% 3.1 % (0-5); Hematocrit 45.1 % (40-54); Hemoglobin 15.6 g/dL (13.0-16.5); Lymphocyte # 1.38 X10^3/ul (4.0); Lymphocyte % 17.3 % (19-41); Mean Corp Hgb Conc 34.6 g/dL (32-36); Mean Corpuscular Hgb 29.8 pg (27.0-32.0); Mean Corpuscular Volume 86.2 fL (80-94); Mean Platelet Vol. 9.4 fl (6.2-12.0); Monocyte# 0.61 X10^3/uL; Monocyte% 7.7 % (0-10); NRBC Flagged by Analyzer 0 % (0-5); Neutrophil # 5.69 X10^3/uL (2.7-7.7); Neutrophil % 71.3 % (47-70); Platelet Count 138 K/mm3 (150-450); RBC Distribution Width CV 13.2 % (11.6-14.6); RBC Distribution Width SD 41.1 fl (35.1-43.9); Red Blood Count 5.23 M/mm3 (4.6-6.2)
[2019-10-27 14:50] LABS: Anion Gap 6 (5-15); BUN 17 mg/dL (7-18); BUN/Creat Ratio 15.5 RATIO (10-20); Calcium,Total 9.4 mg/dL (8.5-10.1); Chloride 108 mmol/L (98-107); EST Glomerular Filtration Rate 68 mL/min (>60); Est Glom Filt Rate - Afr Amer 83 mL/min (>60); Estimated Creatinine Clearance 50.08 ml/min; Glucose 153 mg/dL (74-106); Potassium 4.1 mmol/L (3.5-5.1); Sodium Level 139 mmol/L (136-145)
--- NOTE | 2019-10-27 15:23 | EKG12_ITS ---
Test Reason : REPEAT Blood Pressure : / mmHG Vent. Rate : 049 BPM Atrial Rate : 049 BPM P-R Int : 144 ms QRS Dur : 096 ms QT Int : 472 ms P-R-T Axes : 053 024 075 degrees QTc Int : 426 ms Sinus bradycardia Minimal voltage criteria for LVH, may be normal variant Borderline ECG Confirmed by SARAH CAMPA, BENEDICTO ([id number]), map editor HAM ALEXANDRA ([id number]) on 10/29/2019 8:09:59 AM Referred By: DANE Confirmed By:WENDY SMITH MD
--- NOTE | 2019-10-27 15:45 | ED.VISSUMM ---
- ER Visit Summary Date of Service: 10/27/19 Chief Complaint: Chest pain History of Present Illness: The patient is a [address] Ramires and Dr. Onofre. He reports in the past 24 hours he has had 2 episodes of chest pain. First episode was last night while he was at rest. Last approximate hour until he fell asleep. He describes it as a dull, pressure that was 7 out of 10 at worst. States that it was not present when he woke today. Again today at noon while he was at rest he had an onset of a substernal dull, pressure that was 10 out of 10 in severity. He is pain-free currently. It was worsened by nothing including exertion. Was relieved by nitroglycerin and aspirin on the way to the emergency department. He denies any radiation of the pain. Denies any nausea, vomiting, or shortness of breath. He was diaphoretic with this. Patient denies any chest pain with exertion or change in dyspnea exertion in the past month. He had a four-vessel bypass in 1996. He had a heart catheterization 4 to 5 years ago that did not require stents. He had a stress test in March 2019 that was normal. Physical Examination: Vitals: Stable. Afebrile. General: Well-nourished and well-developed. Head: Normocephalic atraumatic. Neck: Supple, no lymphadenopathy. No JVD. Nontender. Cardiovascular: Regular rate and rhythm. No murmurs. Respiratory: No respiratory distress. Clear to auscultation bilaterally. Abdominal: Soft, nontender, nondistended, normal bowel sounds. No guarding, rebound, or peritoneal signs. Back: Nontender. Extremities: Nontender, no edema. Skin: Normal color, no rash. Neurologic: Alert and oriented ?3. Cranial nerves II through XII are intact. Normal strength and sensation. Psych: Normal affect. Test Results: EKG is sinus at 68 unchanged from 2017. Initial troponin 0 0.037. Chem-7 shows a chloride 108 and glucose 153. CBC shows platelets of 138, segmented neutrophils of 71, lymphocytes of 17. Repeat EKG is changed. He has a biphasic P wave and V1 and V2. Repeat troponin is 0.153. Emergency Department Course and Treatment: Patient is pain-free in the emerge department. He received aspirin by squad prior to arrival. I did review a stress test in March 2019. It was normal with an ejection fraction of 60%. Treatment Plan: The patient was discussed with Dr. Dawson. He was given a dose of Lovenox subcu. He will be admitted to the hospital for further evaluation and treatment. Disposition: Admitted in stable condition. Impression: 1. Chest pain. 2. Indeterminate troponin. 3. KALLI score 5. This note was generated with [employer] dictation software. It may contain incorrect words, spelling, and punctuation that were not noted in review of the chart prior to signing ED Disposition - Plan for ED Patient: Disposition: Acute Care Hospital [facility]
[2019-10-27] MEDS: Enoxaparin 80 MG/0.8 ML Syringe SC (18:09)
--- NOTE | 2019-10-27 18:12 | EKG12_ITS ---
Test Reason : Blood Pressure : / mmHG Vent. Rate : 064 BPM Atrial Rate : 064 BPM P-R Int : 154 ms QRS Dur : 090 ms QT Int : 442 ms P-R-T Axes : 074 054 074 degrees QTc Int : 455 ms Normal sinus rhythm Voltage criteria for left ventricular hypertrophy Abnormal ECG Confirmed by JASON CAMPA, JESSY ([id number]), magazine editor HAM ALEXANDRA ([id number]) on 11/03/2019 10:09:59 AM Referred By: Confirmed By:JESSY GOMEZ MD
--- NOTE | 2019-10-27 20:33 | PCM.HP.STD ---
History of Present Illness Date of Admission: 10/27/19 Chief Complaint: Chest pain The patient is a 79 year old M with a PMH as below presents to the hospital with 2 episodes of chest pain. He said his initial chest pain happened last night and it was a substernal chest pain with no radiation he fell asleep and he woke up without any chest pain. Then today around noon he had another episode while at rest however this substernal chest pain and therefore presented to the hospital. He did not have any acute EKG changes in the ER and his initial troponin was negative at 0.037. This chest pain this afternoon was relieved with nitroglycerin and aspirin on his way to the ER. And neither episode caused radiation of pain. He does have a cardiac history with a CABG in 1996 as well as a heart cath a few years ago. He did also have a normal stress test in March 2019. 3 hours after his initial troponin his second troponin came back elevated to 0.153, thus giving him a KALLI score of 6. The case was discussed with cardiology and he is already on aspirin and Plavix which he will continue he was also given a dose of therapeutic Lovenox. Past Medical History Past Medical History (Chronic Problems): Chronic Problems (Last Updated 03/25/19 @ 11:20 by Saida Middleton) History of endovascular stent graft for abdominal aortic aneurysm (AAA) (Chronic) Stent Graft 2009 Atherosclerosis of [place] coronary artery of [place] heart without angina pectoris (Chronic) Essential (primary) hypertension (Chronic) Hyperlipemia, mixed (Chronic) Medical History: Medical History (Last Updated 03/25/19 @ 11:20 by Saida Middleton) Dyspnea on exertion (Acute) R06.09 Atherosclerosis of [place] coronary artery of [place] heart without angina pectoris (Chronic) I25.10 Essential (primary) hypertension (Chronic) I10 Hyperlipemia, mixed (Chronic) E78.2 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 Rheumatic fever I00 Spinal stenosis M48.00 Syncope R55 Allergies No Known Allergies Allergy (Verified 10/27/19 14:09) Home Medications: Ambulatory Orders Medication Instructions Recorded Omeprazole [Prilosec] 20 mg PO DAILY 11/12/17 Vit A/Vit C/Vit E/Zinc/Copper 1 capsule PO BID 11/12/17 [Preservision Areds Softgel] finasteride 5 mg tablet 5 mg PO DAILY 02/23/18 aspirin 81 mg tablet,delayed 81 mg PO DAILY 08/11/18 release atenolol 25 mg tablet 25 mg PO BID #180 tab 10/21/18 lisinopril 20 mg tablet 20 mg PO BID #180 tab 12/24/18 clopidogrel 75 mg tablet 75 mg PO DAILY #90 tab 02/12/19 Amlodipine [Norvasc] 5 mg PO DAILY 10/27/19 Simvastatin 20 mg PO QHS 10/27/19 Tamsulosin HCl 0.4 mg PO BID 10/27/19 Turmeric/Turmeric Root Extract 500 mg PO BID 10/27/19 [Turmeric 500 mg Capsule] Surgical History: Surgical History (Last Reviewed 03/23/19 @ 20:37 by Saida Middleton) History of endovascular stent graft for abdominal aortic aneurysm (AAA) (Chronic) Z95.828 Stent Graft 2009 H/O coronary artery bypass surgery Z95.1 CABG x 4 Sequential HANCOCK-LAD and D1, , SVG-OM and SVG-RCA 09/22/96 History of left heart catheterization Z98.890 1996, 06/30/2007 Smoking Status: Former smoker Tobacco Use: Cigarettes Alcohol: None Drugs: None - *Family History Maternal Family History: Family History (Last Reviewed 03/23/19 @ 20:37 by Saida Middleton) Mother CAD (coronary artery disease) Brother CAD (coronary artery disease) Brother CAD (coronary artery disease) Review of Systems Constitutional: Denies: Chills, Fever, Weight Change HEENT: Denies: Head Aches, Sinus Congestion, Sinus Drainage Cardiovascular: Reports: Chest Pain. Denies: Palpitations Respiratory: Denies: Cough, Shortness of breath at rest, Sputum production Gastrointestinal: Denies: Abdominal Pain, Nausea, Vomiting Genitourinary: Denies: Dysuria Musculoskeletal: Denies: Joint Pain, Joint Tenderness Skin: Denies: Rash, Wounds Neurological: Denies: Numbness, Tingling, Focal weakness Psychiatric: Denies: Anxiety, Depression Hematologic/ Lymphatic: Denies: Easy Bruising, Easy Bleeding VTE Information - Inpt Only VTE Present on Admission: No - Physical Exam Vitals/I&O's: Vital Signs Temp Pulse Resp BP Pulse Ox 98.0 F 52 L 18 146/64 H 96 10/27/19 19:30 10/27/19 19:30 10/27/19 19:30 10/27/19 19:30 10/27/19 19:30 Oxygen Delivery Method Room Air Weight: 180 lb 8.937 oz Body Mass Index (BMI) 28.3 General: Alert, Oriented x3, Cooperative, No apparent distress HEENT: Atraumatic, PERRLA, EOMI, Normocephalic Oral: Moist Mucosa Neck: Supple, No JVD Lungs: Clear to auscultation, Normal air movement, No rhonchi, No wheeze, No rales Cardiovascular: Regular rate, Regular Rhythm, Normal S1, Normal S2, No murmurs Abdomen: Soft, Non Tender, Non-Distended, No Hepato-splenomegaly Extremities: No edema, Capillary Refill Less than 3 Seconds Skin: No rashes, No breakdown Neurological: Neuro grossly intact, Sensory exam intact to light touch and pain Psych/Mental Status: Normal Affect, Appropriate Laboratory Results 10/27/19 13:53: WBC 8.0, RBC 5.23, Hgb 15.6, Hct 45.1, MCV 86.2, MCH 29.8, MCHC 34.6, RDW Std Deviation 41.1, RDW Coeff of Zoë 13.2, Plt Count 138 L, MPV 9.4, Immature Gran % (Auto) 0.300, Neut % (Auto) 71.3 H, Lymph % (Auto) 17.3 L, Fleming % (Auto) 7.7, Eos % (Auto) 3.1, Baso % (Auto) 0.3, Absolute Neuts (auto) 5.7, Absolute Lymphs (auto) 1.38, Nucleated RBC % 0 10/27/19 13:53: Sodium 139, Potassium 4.1, Chloride 108 H, Carbon Dioxide 25.0, Anion Gap 6, BUN 17, Creatinine 1.10, Estim Creat Clear Calc 50.08, Est GFR (MDRD) Af Amer 83, Est GFR (MDRD) Non-Af 68, BUN/Creatinine Ratio 15.5, Glucose 153 H, Calcium 9.4, Troponin I 0.037 10/27/19 16:55: Troponin I 0.153 H 10/27/19 20:14: Troponin I Pending Current Medications Acetaminophen (Tylenol) 650 mg PO Q6H PRN PRN PRN Reason: Pain Score 1-10/Temp > 100.7 F Amlodipine Besylate (Norvasc) 5 mg PO DAILY [facility] Aspirin (Ecotrin) 81 mg PO DAILYCM [facility] Atenolol (Tenormin (Beta Kenan)) 25 mg PO BID [facility] Atorvastatin Calcium (Lipitor) 10 mg PO QHS [facility] Clopidogrel Bisulfate (Plavix) 75 mg PO DAILY [facility] Finasteride (Proscar) 5 mg PO DAILY [facility] Lisinopril (Zestril) 20 mg PO BID [facility] Nitroglycerin (Nitrostat) 0.4 mg SUBLINGUAL Q5M PRN PRN Reason: CARDIAC/CHEST PAIN Ondansetron HCl (Zofran) 4 mg IV Q8H PRN PRN PRN Reason: NAUSEA/VOMITING Pantoprazole Sodium (Protonix) 20 mg PO DAILY [facility] Sodium Chloride () 10 - 40 ml IV UD PRN PRN Reason: SALINE FLUSH Tamsulosin HCl (Flomax) 0.4 mg PO DAILY [facility] Assessment/Plan All Active Problems (Last Updated 03/25/19 @ 11:20 by Saida Middleton) Dyspnea on exertion (Acute) 1. Chest pain/CAD status post CABG/HTN/HLD -We will trend troponins and consult cardiology -Continue with aspirin and Plavix -He received a dose of therapeutic Lovenox this evening -Continue with his blood pressure medications -Continue with simvastatin 2. GERD -Stable -Continue with PPI DVT: Therapeutic Lovenox Code Visit OBSV E&M: [id number] Initial observation care L2
[2019-10-27] MEDS: Atorvastatin Calcium 10 MG Tablet PO (21:41)
[2019-10-27] MEDS: Atenolol 25 MG Tablet PO (21:41)
[2019-10-27] MEDS: Lisinopril 20 MG Tablet PO (21:41)
[2019-10-28] VITALS (37 sets, daily range): BP systolic 109–188; BP diastolic 53–96; PULSE 55–78; RESP 16–28; TEMP 36.4–37.1; O2SAT 94–99
[2019-10-28 06:18] LABS: Basophil# 0.03 X10^3/uL; Basophil% 0.5 % (0-1); Eosinophil# 0.28 X10^3/uL; Eosinophils% 4.2 % (0-5); Hematocrit 39.8 % (40-54); Hemoglobin 13.4 g/dL (13.0-16.5); Lymphocyte % 24.1 % (19-41); Mean Corp Hgb Conc 33.7 g/dL (32-36); Mean Corpuscular Hgb 28.7 pg (27.0-32.0); Mean Corpuscular Volume 85.2 fL (80-94); Mean Platelet Vol. 9.5 fl (6.2-12.0); Monocyte# 0.66 X10^3/uL; Monocyte% 9.9 % (0-10); NRBC Flagged by Analyzer 0 % (0-5); Neutrophil # 4.04 X10^3/uL (2.7-7.7); Neutrophil % 60.8 % (47-70); Platelet Count 119 K/mm3 (150-450); RBC Distribution Width CV 13.4 % (11.6-14.6); RBC Distribution Width SD 41.6 fl (35.1-43.9); Red Blood Count 4.67 M/mm3 (4.6-6.2); White Blood Count 6.6 K/mm3 (4.4-11.0)
[2019-10-28 06:40] LABS: BUN 18 mg/dL (7-18); Creatinine, Serum 0.88 mg/dL (0.70-1.30); Glucose 97 mg/dL (74-106)
[2019-10-28 06:41] LABS: Anion Gap 6 (5-15); BUN/Creat Ratio 20.5 RATIO (10-20); Calcium,Total 8.9 mg/dL (8.5-10.1); Chloride 110 mmol/L (98-107); EST Glomerular Filtration Rate 89 mL/min (>60); Est Glom Filt Rate - Afr Amer 107 mL/min (>60); Estimated Creatinine Clearance 62.59 ml/min; Sodium Level 139 mmol/L (136-145)
[2019-10-28] MEDS: Aspirin E.C. 81 MG Tablet PO (07:53)
[2019-10-28] MEDS: Clopidogrel Bisulfate 75 MG Tablet PO (07:53)
[2019-10-28] MEDS: amLODIPine 5 MG Tablet PO (07:53)
[2019-10-28] MEDS: Atenolol 25 MG Tablet PO ×2 (07:53→22:44)
[2019-10-28] MEDS: Lisinopril 20 MG Tablet PO ×2 (07:53→22:44)
--- NOTE | 2019-10-28 08:06 | PCM.HP.BLA ---
Problem List (1) NSTEMI (non-ST elevated myocardial infarction) Status: Acute (2) Dyspnea on exertion Status: Acute (3) History of endovascular stent graft for abdominal aortic aneurysm (AAA) Status: Chronic Comment: Stent Graft 2009 (4) Atherosclerosis of lower [place] coronary artery of lower [place] heart without angina pectoris Status: Chronic (5) Essential (primary) hypertension Status: Chronic (6) Hyperlipemia, mixed Status: Chronic History and Physical Date of Admission: 10/28/19 [facility] [address] [place] [address] OFFICE VISIT Date of Service: 03/25/19 MR#: [id number] Acct: [id number] Name: EZE MATAMOROS Rep #: [id number] : 1940 Provider: Florencio Ramires MD Age/Sex: 78/M Location: [facility] Status: Signed HPI HPI History of Present Illness Details: HPI Chief Complaint: Routine f/u Details: Details: Referring physician: Dr. John Bernstein It was a pleasure seeing your patient, Donnie Matamoros, today in our office. As you know he is a 78-year-old gentleman who is returning for followup of his coronary artery disease status post coronary artery bypass grafting. He is status post 4 vessel bypass surgery on on 09/22/96. At that time he underwent an QUAN to the LAD/diagonal, SVG to the obtuse marginal, and an SVG to the RCA. He apparently had a repeat catheterization in June 2007 which demonstrated no additional corrective measures were needed. Since his last visit Mr. Matamoros has had no chest pressure, tightness, burning, heaviness, neck, jaw, or arm discomfort to suggest angina, His main concern was what appeared to be a neurologic abnormality in which he experienced exquisite pain in the bottom surfaces of his feet, to the point where sometimes he cannot walk. Patient sought medical attention with a neurosurgeon, and underwent back surgery since her last visit and his symptoms have completely resolved. He is now walking without any difficulty whatsoever. Patient has had 2 previous back surgeries. In addition he is status post aortoiliac stent grafting the distant past by Dr. Graham at [facility]. He gets yearly CT scans. He seems to decline any claudication symptoms. In addition, the patient also had hip surgery without any difficulty. Patient underwent a stress echocardiogram on 06/30/14 which was negative for inducible ischemia. He underwent a follow-up dobutamine stress echo on 12/20/15 which was again negative for ischemia. His last echocardiogram was May 2013 which showed an EF of 65%. Since that time he has had no chest pain or angina. He is taking and tolerating his medications well. Most recent debridement echocardiogram for surveillance on 02/20/17 was negative for inducible ischemia. Since her last visit he denies any chest pain, angina, but does complain of shortness of breath and dyspnea on exertion. Apparently he has significant macular degeneration, and is legally blind requiring his to escort him. He is now able to exert himself and walk without difficulty. He is taking and tolerating his medicines well. In our office today his blood pressure is 120/60, and pulse is 64 and regular. His physical exam is as below. His lipids as of 05/27/15 showed HDL of 30 and LDL of 32. His lipids as of 07/01/16 showed an HDL of 31 and LDL of 29. Repeat lipids as of 08/12/17 show an LDL of 45 and HDL 35. Repeat lipids as of 03/03/2019 show an LDL of 26 and HDL 29. Intake Vital Signs 03/25/19 Height 5 ft 7 in 03/25/19 Weight: 184 lb 03/25/19 Body Mass Index (BMI) 28.8 03/25/19 Blood Pressure 120/60 03/25/19 Blood Pressure Location Lt brachial 03/25/19 Blood Pressure Position Sitting 03/25/19 Respiratory Rate 20 H 03/25/19 Pulse Rate 64 03/25/19 Pulse Source Auscultation Intake Visit Reasons: 6 M FU Machine Compositor Required: No Is patient in pain?: No Allergies No Known Allergies Allergy (Verified 03/25/19 11:10) Medications Omeprazole [Prilosec] 20 mg PO DAILY 11/12/17 [History Confirmed 03/25/19] Tamsulosin HCl [Flomax] 0.4 mg PO DAILY 11/12/17 [History Confirmed 03/25/19] Vit A/Vit C/Vit E/Zinc/Copper [Preservision Areds Softgel] 1 ea PO DAILY 11/12/17 [History Confirmed 03/25/19] Acetaminophen [Tylenol] 1,000 mg PO Q8 #90 tab 11/27/17 [Rx Confirmed 03/25/19] finasteride 5 mg tablet 5 mg PO QDAY 02/23/18 [History Confirmed 03/25/19] aspirin 81 mg tablet,delayed release 81 mg PO DAILY 08/11/18 [History Confirmed 03/25/19] vitamins A,C,T-rviu-nhvbgb 14,320 unit-226 mg-200 unit capsule 1 cap PO BID 08/11/18 [History Confirmed 03/25/19] atenolol 25 mg tablet 25 mg PO BID #180 tab 10/21/18 [Rx Confirmed 03/25/19] simvastatin 20 mg tablet 20 mg PO QHS #90 tab 10/30/18 [Rx Confirmed 03/25/19] lisinopril 20 mg tablet 20 mg PO BID #180 tab 12/24/18 [Rx Confirmed 03/25/19] clopidogrel 75 mg tablet 75 mg PO DAILY #90 tab 02/12/19 [Rx Confirmed 03/25/19] amlodipine 5 mg tablet 5 mg PO .COMPLEX tab 03/25/19 [History] [facility] Medical History Atherosclerosis of lower sioux coronary artery of lower [place] heart without angina pectoris (Chronic) Essential (primary) hypertension (Chronic) Hyperlipemia, mixed (Chronic) Lupus anticoagulant disorder (Chronic) Rheumatic fever (Chronic) Spinal stenosis (Chronic) Syncope (Chronic) Surgical History History of endovascular stent graft for abdominal aortic aneurysm (AAA) (Chronic) H/O coronary artery bypass surgery (Chronic) History of left heart catheterization (Chronic) Family History Mother CAD (coronary artery disease) Brother CAD (coronary artery disease) CABG Brother CAD (coronary artery disease) Social History (Updated 03/25/19 @ 11:20 by Florencio Ramires MD) Smoking Status: Former smoker ROS Const Const: Positive for other (Feels well but can no longer drive, macular degeneration is worse.); negative for fatigue, weakness, body ache, fever(s), headache(s), chills, frequent falls, night sweats, daytime sleepiness, difficulty sleeping, excessive sweating, weight gain, weight loss, increased appetite, poor appetite or anorexia Eyes Eyes: Positive for other (Macular degeneration is worsening. Can no longer drive.); negative for blind spots, loss of peripheral vision, transient loss of vision, blurry vision, change in vision, double vision, floaters or tunnel vision ENT ENT: Negative for headache(s), dizziness, hearing loss, tinnitus, Nosebleed/epistaxis, balance problems, post nasal drip, lip swelling, tongue swelling, bleeding gums, hoarseness, neck pain, dry mouth or other Cardio Chest Pain: No Palpitations: No Edema: None Muscle aches with walking: None Resp Respiratory: Positive for SOB with activity and Cough (dry cough. Lungs clear); negative for SOB at rest, SOB orthopnea\SOB lying down, Coughing up blood/hemoptysis, chest congestion, pain on inspiration, snoring, stridor, wheezing, crackles, paroxysmal nocturnal dyspnea or other GI GI: Negative nausea, vomiting, heartburn, constipation, belching, bloating, cramping, vomiting blood/hematemesis, bright, red blood in stools, black,tarry stools, loose stools, Difficulty Swallowing or other : Negative for hematuria, frequent nighttime urination/ nocturia, erectile dysfunction or abnormal vaginal bleeding Musc Musc: Negative for muscle aches/ myalgia, muscle weakness, joint pain or balance problems Skin Skin: Negative redness, non-healing lesions, rash, unusual bruising, skin ulcer, wounds, jaundice or other Neuro Neuro: Negative for dizziness, lightheadedness, near syncope, syncope, orthostatic symptoms, frequent falls, headache(s), weakness, confusion, memory loss, restless legs, blurry vision, double vision, vertigo, seizures, lack of coordination or other Andreas Hematologic/Lymphatic: Negative for easy bleeding, easy bruising, enlarged lymph nodes or other Endo Endo: Negative for fatigue, cold intolerance, heat intolerance, excessive sweating, flushing, increased thirst/drinking, increased hunger, hair loss, hair growth or other Psych Psych: Negative for anxiety, depression, thoughts of harming anyone, thoughts of harming yourself, visual hallucinations, panic attacks or audible hallucinations Allergy Allergy/Immunology: Negative for throat swelling, Negative for tongue swelling, Negative for hives, Negative for rash, Negative for lip swelling Cardiology Exam Const Appearance: cooperative, healthy appearing and no acute distress Nutritional Appearance: well nourished Orientation: alert, oriented x3 and oriented to person Head Head: normal to inspection, normocephalic and atraumatic Nose: external nose normal Face and Sinus: face symmetric Mouth: oral mucosae normal Eyes General: appearance normal, both eyes and all related structures Eyelids: eyelids normal Conjunctivae: conjunctivae normal Pupils: PERRL and normal by confrontation EOM: EOM intact bilaterally Neck Neck: normal visual inspection and full ROM Carotids: normal carotid upstroke Chest Chest inspection: normal inspection of the chest Auscultation: Bilateral: Clear to Auscultation Cardio Palpation: normal PMI Rate: regular rate Rhythm: regular rhythm Heart sounds: S1 normal and S2 normal GI GI: normal to inspection, no hepatosplenomegaly and bowel sounds present Neuro General: alert, awake, oriented x3, CN's II-XI intact bilaterally and moves all extremities Skin Skin: no rashes or lesions noted Extremities Pulses: Normal: Right Femoral Pulse, Left Femoral Pulse, Right Dorsalis Pedis Pulse, Left Dorsalis Pedis Pulse, Right Posterior Tibial Pulse, Left Posterior Tibial Pulse, Right Radial Pulse, Left Radial Pulse Lower Extremity Edema: None: Bilateral Psych Psychological: normal affect Assessment & Plan 1. Atherosclerosis of lower [place] coronary artery of lower [place] heart without angina pectoris I25.10 Plan 1. Coronary artery disease: No exertional anginal symptoms at this time however the patient has reported worsening shortness of breath and dyspnea on exertion especially with extreme exercise. It is been over 2 years since his last stress echocardiogram. After the patient's neurosurgery on his back, he cannot walk without any numbness in his feet. I recommended he undergo a treadmill echocardiogram to evaluate his dyspnea on exertion and surveillance for his coronary artery bypass grafts. If this is grossly abnormal for ischemia he may require repeat catheterization and graft angiography. In the meantime he will continue his baby aspirin, Plavix, atenolol, lisinopril. Orders Orders: Stress Test Echo W/Contrast Today Echo Complete Today 2. Hyperlipemia, mixed E78.2 Plan 2. Hyperlipidemia: His LDL and HDL cholesterol are at goal. Continue Zocor. Orders Orders: Echo Complete Today 3. History of endovascular stent graft for abdominal aortic aneurysm (AAA) Z95.828 Stent Graft 2009 Plan 3. AAA repair: I recommended the patient continue his antihypertensive and antilipid therapy. He follows up with Dr. Graham. He has had no claudication symptoms. No indication for PVRs at this time. 4. Return office in 6-months. This note was generated using a voice recognition system and there may be incorrect words, spelling or punctuation that were not noted when reviewing the office note prior to saving. Orders Orders: Echo Complete Today Plan Detail Other Orders Orders: Stress Test Echo W/Contrast Today R06.09 Echo Complete Today I10 Follow Up +6M (Ike) Coding Level of Care Code Off vis,est,level 3 Diagnoses Atherosclerosis of lower [place] coronary artery of lower [place] heart without angina pectoris I25.10 Hyperlipemia, mixed E78.2 History of endovascular stent graft for abdominal aortic aneurysm (AAA) Z95.828 Coding Level of Care Code Off vis,est,level 3 Diagnoses Atherosclerosis of lower [place] coronary artery of lower [place] heart without angina pectoris I25.10 Hyperlipemia, mixed E78.2 History of endovascular stent graft for abdominal aortic aneurysm (AAA) Z95.828 Supplemental Info Supplemental Information Labs LDL Cholesterol 26 mg/dL (0-130) 03/03/19 HDL Cholesterol 29 mg/dL (40-) L 03/03/19 Triglycerides 284 mg/dL (-199) H 03/03/19 VLDL Cholesterol 57 mg/dL (5-40) H 03/03/19 Diagnostics Electrocardiogram 01/05/17 Stress Echocardiogram 06/30/14 03/25/19 1120 <Electronically signed by Florencio Ramires MD> Date Florencio Ramires MD Cosigner Signature: Date (if applicable) CC: John Bernstein MD ~ Interventional cardiology addendum: Patient seen and examined this morning, and history reveals new onset nonexertional chest pain, superimposed on known cardiovascular disease with previous bypass surgery. The patient underwent a walking stress echocardiogram on 04/15/2019 which was read as normal. Given the patient's constellation of symptoms, cardiac risk factors, and abnormal troponins, a left heart catheterization with grafts was recommended. The risk/benefits of the procedure were thoroughly explained the patient informed consent was obtained. Cardiac catheterization to follow.
--- NOTE | 2019-10-28 09:39 | CL.I_ITS ---
Patient Name: EZE EVANS Study Date: 10/28/2019 Performing: Florencio Ramires MD Ht: 66.92 inches 170 cm : 1940 Wt: 180.78 lbs 82 kg Age: 79 Gender: male BSA: 1.94 PROCEDURE(S) PERFORMED SC14-SHC/COR/LV/CABG [id number] AND/OR PTCA, SINGLE GRAFT CLINICAL PROFILE AND CO-MORBIDITIES Indications: ACS <= 24 hrs, New Onset Angina <= 2 months, Stable Known CAD Heart Failure: None Stress/Imaging Date: 04/15/2019 Angina Classification Anginal Classification w/in 2 Weeks: CCS IV CAD Presentations: Unstable angina. Comorbidities/Risk Factors: Hypertension Dyslipidemia Prior CABG Peripheral Arterial Disease CONCLUSIONS Triple vessel CAD of the LAD, LCX and RCA Normal Left Ventricular systolic function LVEF: by LV gram 65 % Elevated Left Ventricular End Diastolic Pressure Widely patent sequential HANCOCK to LAD and DIAG Widely patnet SVG to PDA with eccentric 40% narrowing. Successful PTCA/BRYSON to SVG to OM#1 with filter wire assistance utilizing a 3.5 x 24 Promus Synergy, f ollowed immediately upstream with a 3.5 x 8 Promus Synergy, all post dilated with a 3.5 x 8 NC Balloo n; 90%-->0%, no dissection. Large piece of SVG grummus captured within filter wire. RECOMMENDATIONS Referred for immediate PCI Highly recommend quitting all tobacco products Follow up with primary carpenters supervisor Risk factor modification ASA Indefinitley Plavix for at least 12 months Routine post interventional care Refer for Outpatient Cardiac Rehab Manual sheath removal per protocol Follow up with Dr. Ramires Manual sheath removal as unable to close due to poor visibilty with previous hip replacement. DESCRIPTION OF PROCEDURE The patient arrived to the procedure lab. The risks and benefits of the procedure as well as a full d escription of our services here and lack of surgical backup were fully explained to the patient and/o r their significant other prior to the catheterization. The Timeout was completed, verifying the renetta ect patient and procedure. The patient's procedural site was prepped and draped in the usual fashion. Local anesthetic was given subcutaneously to right groin region with Lidocaine 2%. Using a modified Seldinger technique, arterial access was obtained via the right femoral artery, a 4Fr sheath was inse rted. Left Ventriculography was performed in HUA projection using a 4 Fr. Pigtail catheter. Left Cor onary Artery selective angiography was performed in multiple views using a 4 Fr. JL5 catheter. Right Coronary Artery selective angiography was then performed in multiple views using a 4 Fr. 3DRC cathete r. Saphenous Vein graft to the OM selective angiography was performed in multiple views using a 4 Fr. 3DRC catheter. Left internal mammary artery graft to the LAD selective angiography was performed in multiple views using a 4 Fr. 3DRC catheter. LV to AO pullback pressures were then record ed. Saphenous Vein graft to the RCA selective angiography was performed in multiple views using a 4 F r. AR MOD 2 catheterThe images were reviewed and options discussed. A decision was then made to proce ed with an Intervention, IVUS or other adjunct procedure. Arterial sheath was exchanged for a 6 Fr Sheath. hs 2 Guide catheter was inserted and engaged int o the SVG to the OM . bmw Guide wire was advanced to the OM. emerge 2.00 x 8 Balloon catheter was ad vanced across lesion in the svg to the om mid PTCA balloon inflated at 6 atms for 8 secs. PTCA ballo on inflated at 7 atms for 16 secs. small vessel filter wire Guide wire was advanced to the svg to the om Angiogram performed post balloon dilatation. synergy 3.5 x 24 Drug Eluting stent was advanced on filter wire across the lesion in the svg to th e om mid Angiogram performed post stent deployment. n c emerge 3.5 x 8 Balloon catheter was inserted post stent. Angiogram performed post balloon dilatatio n. synergy 3.5 x 8 Drug Eluting stent was advanced across the lesion in the svg to the om mid Angiog rhonda performed post stent deployment. The arterial sheath was sutured in place and capped CORONARY ANGIOGRAPHY DOMINANCE: Right Dominant LEFT HEART ASSESSMENT Left Ventricular Ejection Fraction: by LV Gram 65 % Normal Left Ventricular systolic function LVEDP: 27 mmHg Elevated Left Ventricular End Diastolic Pressure Normal LV wall motion LEFT MAIN: Mild calcification, No significant disease noted LEFT ANTERIOR DESCENDING ARTERY: PROX LAD: is occluded CIRCUMFLEX ARTERY: MID CIRC: 85 % Stenosis OM 1: Proximal - 70 % Stenosis RIGHT CORONARY ARTERY: is occluded GRAFTS: HANCOCK graft to the LAD and DIAG is patent Saphenous Vein graft to the RPDA has a proximal lesion of 40 % Saphenous Vein graft to the 1st OM has a mid lesion of 90 % INTERVENTION INFORMATION LESION SITE: OM (Mid) Saphaenous Vein Graft to the 90 lesion location in the mid graft segment Lesion Complexity: High/C, lesion at bifurcation: No, thrombus present: No, lesion length: 32 mm, cul prit lesion: Yes Pre Stenosis: 90 % Pre intervention KALLI flow: 2 PROCEDURE: Drug Eluting Stent with post dilatation Post Stenosis: 0 % Post intervention KALLI flow: 3 Lesion Devices: [place] [employer] 6 Fr HSII 100cm Guide Catheter Henson .014 [employer] [place] Straight 190cm Cosme Sci Small Vessel 2.25-3.5 Filter Wire 190cm Cosme Sci EMERGE MR 2.00x08 BALLOON Cosme Sci Synergy MR BRYSON 3.50x24 Cosme Sci NC EMERGE MR 3.50x08 BALLOON Cosme Sci Synergy MR BRYSON 3.50x08 COMPLICATIONS No Complications PROCEDURE MEDICATIONS Oxygen: 2 L/min via nasal cannula Heparin 6000 unit(s) IV 10/28/2019 08:40:49 Nitro 200 mcg IC 10/28/2019 08:44:06 Nitro glycerin 25mg / 250ml D5W @ 5 mcg/min IV started 10/28/2019 08:45:16 Nitro 300 mcg IC 10/28/2019 08:57:05 SUMMARY OF HEMODYNAMIC DATA Time AIR REST ECG 08:12:41 AO 179/75 (110) SA 08:25:40 LV 198/-14, 27 08:36:42 LV 199/-15, 27 08:36:48 LVp 202/-19, 25 08:36:53 AOp 193/71 (116) 08:36:58 Signed By Florencio Ramires MD On 10/28/2019 09:38:24 Florencio Ramires MD
[2019-10-28] MEDS: 0.9% Normal Saline 1,000 ML 150 ML IV (09:45)
--- NOTE | 2019-10-28 10:04 | EKG12_ITS ---
Test Reason : AM EKG Blood Pressure : / mmHG Vent. Rate : 063 BPM Atrial Rate : 063 BPM P-R Int : 158 ms QRS Dur : 086 ms QT Int : 458 ms P-R-T Axes : 069 042 073 degrees QTc Int : 468 ms Normal sinus rhythm Normal ECG Confirmed by JASON CAMPA, JESSY ([id number]), editor news HAM ALEXANDRA ([id number]) on 11/03/2019 9:43:58 AM Referred By: TROY Confirmed By:JESSY GOMEZ MD
--- NOTE | 2019-10-28 10:34 | CASEMGMT ---
Social Work met with pt and in room. Pt confirms he has both a living will and health care POA which names his daughter Jadyn Peralta. Pt notified that [facility] does not have a copy of documents and requested copy be brought in for EMR. GODFREY Benjamin
--- NOTE | 2019-10-28 10:37 | PCM.PROGNOTE ---
Patient Problems: Active and Suspected Problems (Last Updated 03/25/19 @ 11:20 by Saida Middleton) NSTEMI (non-ST elevated myocardial infarction) (Acute) Subjective: Patient was seen and examined today, he underwent cardiac catheterization this morning and had a drug-eluting stent placed in the saphenous vein graft to the obtuse marginal artery. Left ventricular ejection fraction was 65%. At this time, patient has no complaints of any chest pain or shortness of breath. His is in the room with him. - Physical Exam Vitals/I&O's: Vital Signs Temp Pulse Resp BP Pulse Ox 97.5 F L 57 L 16 143/79 H 96 10/28/19 09:35 10/28/19 10:30 10/28/19 10:30 10/28/19 10:30 10/28/19 10:30 Oxygen Delivery Method Room Air Weight: 81.9 kg Body Mass Index (BMI) 28.3 Intake and Output for Last 24 Hours 10/26/19 10/27/19 10/28/19 23:59 23:59 23:59 Output Total 350 / 350 Balance -350 / -350 General: Alert, Oriented x3, Cooperative, No apparent distress, Well developed HEENT: Atraumatic, PERRLA, EOMI, Normocephalic Oral: Moist Mucosa Neck: Supple, Trachea Midline, Thyroid Normal Size and Texture Lungs: Clear to auscultation, Normal air movement, No rhonchi, No wheeze, No rales Cardiovascular: Regular rate, Regular Rhythm, Normal S1, Normal S2, No murmurs, PMI Normal, No rub noted, No Gallop Abdomen: Bowel Sounds Present, Soft, Non Tender, Non-Distended Extremities: No edema, Capillary Refill Less than 3 Seconds Skin: No rashes, No breakdown Musculoskeletal: No Tenderness to Palpation of Joints or Extremities Neurological: Cranial nerves II-XII grossly intact, Neuro grossly intact, Sensory exam intact to light touch and pain, Coordination normal Psych/Mental Status: Normal Affect, Appropriate, Alert and oriented to time, place, person, mood and affect Laboratory Results 10/27/19 13:53: WBC 8.0, RBC 5.23, Hgb 15.6, Hct 45.1, MCV 86.2, MCH 29.8, MCHC 34.6, RDW Std Deviation 41.1, RDW Coeff of Zoë 13.2, Plt Count 138 L, MPV 9.4, Immature Gran % (Auto) 0.300, Neut % (Auto) 71.3 H, Lymph % (Auto) 17.3 L, Cuming % (Auto) 7.7, Eos % (Auto) 3.1, Baso % (Auto) 0.3, Absolute Neuts (auto) 5.7, Absolute Lymphs (auto) 1.38, Nucleated RBC % 0 10/27/19 13:53: Sodium 139, Potassium 4.1, Chloride 108 H, Carbon Dioxide 25.0, Anion Gap 6, BUN 17, Creatinine 1.10, Estim Creat Clear Calc 50.08, Est GFR (MDRD) Af Amer 83, Est GFR (MDRD) Non-Af 68, BUN/Creatinine Ratio 15.5, Glucose 153 H, Calcium 9.4, Troponin I 0.037 10/27/19 16:55: Troponin I 0.153 H 10/27/19 20:14: Troponin I 0.394 H 10/28/19 05:34: WBC 6.6, RBC 4.67, Hgb 13.4, Hct 39.8 L, MCV 85.2, MCH 28.7, MCHC 33.7, RDW Std Deviation 41.6, RDW Coeff of Zoë 13.4, Plt Count 119 L, MPV 9.5, Immature Gran % (Auto) 0.500, Neut % (Auto) 60.8, Lymph % (Auto) 24.1, Cuming % (Auto) 9.9, Eos % (Auto) 4.2, Baso % (Auto) 0.5, Absolute Neuts (auto) 4.0, Absolute Lymphs (auto) 1.60, Nucleated RBC % 0 10/28/19 05:34: Sodium 139, Potassium 4.0, Chloride 110 H, Carbon Dioxide 23.0, Anion Gap 6, BUN 18, Creatinine 0.88, Estim Creat Clear Calc 62.59, Est GFR (MDRD) Af Amer 107, Est GFR (MDRD) Non-Af 89, BUN/Creatinine Ratio 20.5 H, Glucose 97, Calcium 8.9 Current Medications Acetaminophen (Tylenol) 650 mg PO Q6H PRN PRN PRN Reason: Pain Score 1-10/Temp > 100.7 F Acetaminophen (Tylenol) 650 mg PO Q6H PRN PRN PRN Reason: Pain Score 1-3/10 Amlodipine Besylate (Norvasc) 5 mg PO DAILY [facility] Last Admin: 10/28/19 07:53 Dose: 5 mg Documented by: [facility] Admin: 10/28/19 07:53 Dose: 81 mg Documented by: Atenolol (Tenormin (Beta Kenan)) 25 mg PO BID [facility] Last Admin: 10/28/19 07:53 Dose: 25 mg Documented by: Atorvastatin Calcium (Lipitor) 10 mg PO QHS [facility] Last Admin: 10/27/19 21:41 Dose: 10 mg Documented by: Atropine Sulfate () 0.5 mg IV UD PRN PRN Reason: HR <50 bpm Clopidogrel Bisulfate (Plavix) 75 mg PO DAILY [facility] Last Admin: 10/28/19 07:53 Dose: 75 mg Documented by: Finasteride (Proscar) 5 mg PO DAILY [facility] Heparin Sodium (Beef Lung) (Heparin 500 Unit/5 Ml (100/Ml)) 500 unit IV UD PRN PRN Reason: HEPARIN FLUSH Hydrochlorothiazide () 12.5 mg PO DAILY [facility] Sodium Chloride () 1,000 mls @ 0 mls/hr IV .Q0M [facility] Sodium Chloride () 1,000 mls @ 150 mls/hr IV .Q6H40M [facility] Stop: 10/28/19 16:43 Last Admin: 10/28/19 09:45 Dose: 150 mls/hr Documented by: Nitroglycerin/Dextrose () 250 mls @ 3 mls/hr IV .[id number] [facility] Isosorbide Mononitrate (Imdur) 30 mg PO DAILY [facility] Labetalol HCl (Trandate) 5 mg IV X1 PRN PRN Reason: SBP > 160 when pulling sheath Lisinopril (Zestril) 20 mg PO BID [facility] Last Admin: 10/28/19 07:53 Dose: 20 mg Documented by: Lorazepam (Ativan) 1 mg PO Q6H PRN PRN PRN Reason: BACK SPASMS/ANXIETY Metoclopramide HCl (Reglan) 5 mg IV Q6H PRN PRN PRN Reason: NAUSEA/VOMITING Morphine Sulfate () 2 - 4 mg IV Q4H PRN PRN PRN Reason: Pain Score 1-10/10 Nitroglycerin (Nitrostat) 0.4 mg SUBLINGUAL Q5M PRN PRN Reason: CARDIAC/CHEST PAIN Nitroglycerin (Nitrostat) 0.4 mg SUBLINGUAL Q5M PRN PRN Reason: CARDIAC/CHEST PAIN Ondansetron HCl (Zofran) 4 mg IV Q8H PRN PRN PRN Reason: NAUSEA/VOMITING Pantoprazole Sodium (Protonix) 20 mg PO DAILY [facility] Sodium Chloride () 10 - 40 ml IV UD PRN PRN Reason: SALINE FLUSH Sodium Chloride () 500 ml IV BOLUS PRN PRN Reason: VASO-VAGAL PROTOCOL Tamsulosin HCl (Flomax) 0.4 mg PO DAILY [facility] Medical Necessity - Tobacco Use Smoking Status: Former smoker Tobacco Use: Cigarettes Assessment/Plan All Active Problems (Last Updated 03/25/19 @ 11:20 by Saida Middleton) NSTEMI (non-ST elevated myocardial infarction) (Acute) Dyspnea on exertion (Acute) #1 [id number]'s EF is normal #2 occlusive coronary artery disease with placement of drug-eluting stent in saphenous venous graft-postop day 0-medication adjustment per cardiology #3 triple-vessel coronary artery disease #4 essential hypertension-patient currently on a nitro drip-this will probably be weaned off #5 hyperlipidemia Code Visit Inpatient E&M: [id number] Init Hosp L3
[2019-10-28 12:40] LABS: ACT Activated Clotting Time 186 sec (74-137)
[2019-10-28 12:40] LABS: ACT Activated Clotting Time 169 sec (74-137)
[2019-10-28] MEDS: Nitroglycerin Infusion 250 ML 3 MG IV (12:50)
[2019-10-28 14:01] LABS: ACT Activated Clotting Time 246 sec (74-137)
[2019-10-28] MEDS: hydroCHLOROthiazide 12.5mg 12.5 MG PO (15:30)
[2019-10-28] MEDS: Pantoprazole Sodium 20 MG Tablet PO (15:30)
[2019-10-28] MEDS: Isosorbide Mononitrate 30 MG Tablet PO (15:30)
[2019-10-28] MEDS: Tamsulosin HCl 0.4 MG Capsule PO (15:30)
--- NOTE | 2019-10-28 22:30 | NURSING ---
cath site dressing dry and intact, good pulses
[2019-10-28] MEDS: Atorvastatin Calcium 10 MG Tablet PO (22:44)
[2019-10-29] VITALS (7 sets, daily range): BP systolic 116–140; BP diastolic 31–80; PULSE 63–73; RESP 16–26; TEMP 36.6–37.1; O2SAT 95–98
--- NOTE | 2019-10-29 01:35 | NURSING ---
pt awake, c/o severe heartburn/reflux, dr. sarah toney, joseta ordered.
[2019-10-29] MEDS: Mag Hydrox/Al Hydrox/Simeth 30 ML UDC PO (01:56)
[2019-10-29 04:55] LABS: Hematocrit 38.8 % (40-54); Hemoglobin 13.4 g/dL (13.0-16.5); Mean Corp Hgb Conc 34.5 g/dL (32-36); Mean Corpuscular Hgb 29.6 pg (27.0-32.0); Mean Corpuscular Volume 85.8 fL (80-94); Mean Platelet Vol. 9.4 fl (6.2-12.0); Platelet Count 126 K/mm3 (150-450); RBC Distribution Width CV 13.3 % (11.6-14.6); RBC Distribution Width SD 41.5 fl (35.1-43.9); Red Blood Count 4.52 M/mm3 (4.6-6.2); White Blood Count 8.4 K/mm3 (4.4-11.0)
[2019-10-29 05:11] LABS: ALB/GLOB Ratio 1.1 RATIO (0.9-2.4); AST(SGOT) 17 U/L (15-37); Alanine Aminotransfer ALT/SGPT 16 U/L (16-61); Albumin, Serum 3.5 g/dL (3.2-5.0); Alkaline Phosphatase 116 U/L (45-117); Anion Gap 6 (5-15); BUN 22 mg/dL (7-18); BUN/Creat Ratio 21.6 RATIO (10-20); Calcium,Total 9.1 mg/dL (8.5-10.1); Chloride 106 mmol/L (98-107); Creatinine, Serum 1.02 mg/dL (0.70-1.30); EST Glomerular Filtration Rate 75 mL/min (>60); Est Glom Filt Rate - Afr Amer 90 mL/min (>60); Globulin 3.3 g/dL (2.2-4.2); Glucose 122 mg/dL (74-106); Potassium 3.7 mmol/L (3.5-5.1); Protein, Total 6.8 g/dL (6.4-8.2); Sodium Level 138 mmol/L (136-145)
[2019-10-29] MEDS: Aspirin E.C. 81 MG Tablet PO (07:58)
[2019-10-29] MEDS: Pantoprazole Sodium 20 MG Tablet PO (07:58)
[2019-10-29] MEDS: Calcium Carbonate 500 MG Tablet 1000 MG PO (08:26)
--- NOTE | 2019-10-29 08:42 | CRPHASE1 ---
Patient Communication PHII Cardiac Rehab Discussed with Patient:: Yes Guide to Cardiac Rehab Given to Patient:: Yes Cardiac Rehab Facility Choice List Given to Patient:: Yes Choice Program [facility] CR PHII:: Communication Given to CR, Refer to [facility] Food Safety Manager:: Florencio Ramires Phase II Cardiac Rehab:: Yes Sessions:: 36 sessions - 3 days/wk, 12 weeks Risk Factors/Lifestyle Smoking Status: Former smoker Hx Hypertension: Yes - ESSENTIAL Hx Diabetes Mellitus Type 1: No Hx Diabetes Mellitus Type 2: No Hx Metabolic Disorders: Yes Hx Dyslipidemia: Yes Hx Obesity: No Stress: Home/Family Risk Factor for Sedentary Lifestyle: Moderate Risk Family History: Family History (Last Reviewed 03/23/19 @ 20:37 by Saida Middleton) Mother CAD (coronary artery disease) Brother CAD (coronary artery disease) Brother CAD (coronary artery disease) Past Cardiac Illness: Coronary Artery Disease, Previous PCI w/Stent, Coronary Artery Bypass Graft Phase I Education Given On:: [place], Nutrition, Antiplatelet medication Issues Affecting Care:: None Knowledge of Condition:: Yes Learning Preferences: Verbal, Written Hospital Course Presenting Symptoms:: NSTEMI Medical/Surgical History DE:: Yes - NSTEMI CAD:: Yes Cardiomyopathy:: No Diabetes:: No Hypertension:: Yes - ESSENTIAL HTN Dyslipidemia:: Yes Other Medical/Surgical Issues:: LUPUS, HX RHEUMATIC FEVER, HX SYNCOPE CABG: Yes PTCA:: Yes - CABG 1996/ PTCA 2009 ICD:: No Discharge/Home/Social Eval Discharge Disposition: Home Cardiac Rehabilitation Info Cardiac Rehabilitation Program Information: Cardiac Rehabilitation is important for patients like you who are recovering from a heart problem. Cardiac rehabilitation programs are recognized as integral to the continued care of the patient with coronary heart disease. The cardiac rehabilitation program is designed to optimize a patient's physical, psychological, and social functioning. Health career technical supervisor work in cardiac rehabilitation programs and assist you with getting the treatments you need to get stronger and healthier - like exercise, healthy eating habits, and medications. Cardiac rehabilitation has been show to help people with heart problems live longer and have better life enjoyment than people who do not go to cardiac rehabilitation. Please contact the Cardiac Rehabilitation Program at [facility] at in two weeks if you have not heard from them.
--- NOTE | 2019-10-29 08:46 | CRPH1.INSTRU ---
General Education CAD and cardiac anatomy and function:: Patient communicates acknowledgment Explanation of diagnoses and procedures:: Patient communicates acknowledgment Sign/Symptoms of DC:: Patient communicates acknowledgment Antiplatelet therapy: Patient communicates acknowledgment Proper use of NTG-SL: Not instructed Emergency procedures and activation of EMS: Patient communicates acknowledgment Compliance of all prescribed medications: Patient communicates acknowledgment Smoking Recommendations Include:: Previous smoker; encourage continued cessation Nicotine/Smoking Response Code:: Patient communicates acknowledgment Dyslipidemia Patient Dyslipidemia Risk Factors Are:: Total Cholesterol, Triglycerides, HDL, LDL Recommendations Include:: Lipid profile provided, Reviewed NCEP/ATP guidelines, Therapeutic Lifestyle Change dietary guidelines Dyslipidemia Response Code:: Patient communicates acknowledgment Overweight/Obesity Patient Overweight/Obesity Risk Factors Are:: BMI Normal [18-25 & < 65 years old] Hypertension Recommendations Include:: Maintain BP <130/85, DASH dietary guidelines, Decrease/maintain normal body weight, Moderation of ETOH Hypertension:: Patient communicates acknowledgment Heart Disease Patient Heart Disease Risk Factors Are:: Previous cardiac event Heart Disease Response Code:: Patient communicates acknowledgment Diabetes Patient Diabetes Risk Factors Are:: No documented hx of diabetes Metabolic Syndrome Patient Metabolic Syndrome Risk Factors Are [3 of 5]:: High triglyceride >150, Hypertension, Low HDL <40 [male] or < 50 [female] Recommendations Include:: Reinforce compliance to risk factor modifications, Encouraged follow-up with Primary Care Physician Metabolic Syndrome Response Code:: Patient communicates acknowledgment Sedentary Patient Sedentary Risk Factors Are:: Lack of regular exercise Recommendations Include:: Aerobic exercise 5-7 times/week for 20-30 minutes continuously, Benefits of regular exercise, Discussed home walking program, Monitored Outpatient Cardiac Rehab Sedentary Response Code:: Patient communicates acknowledgment Stress Recommendations Include:: Identification of stressors, and assessment of coping skills, Stress management techniques Stress Response Code:: Patient communicates acknowledgment
--- NOTE | 2019-10-29 08:48 | PCM.PN.CARD ---
Subjectve: Patient feeling much better today, no further chest pain. Blood pressure much better improved. Right groin is clean/dry/intact, without evidence of thrills, bruits or hematoma. Telemetry showed normal sinus rhythm, no ventricular ectopy. EKG shows normal sinus rhythm, no acute changes. Hemoglobin and creatinine are within nominal limits. Objective: Vital Signs Temp Pulse Resp BP Pulse Ox 98 F 65 16 140/80 H 97 10/29/19 08:01 10/29/19 08:01 10/29/19 08:01 10/29/19 08:01 10/29/19 08:01 Oxygen Delivery Method Room Air Weight: 180 lb 8.937 oz Body Mass Index (BMI) 28.3 Intake and Output for Last 24 Hours 10/27/19 10/28/19 10/29/19 23:59 23:59 23:59 Intake Total 1019.25 / 1219.25 400 / 400 Output Total 850 / 1125 275 / 275 Balance 169.25 / 94.25 125 / 125 General: Awake, Alert, Oriented x 3 HEENT: PERRL, EOMI, Sclera Non Icteric Neck: Supple, Good ROM, No Lymph Node Enlargement Lungs: Clear to auscultation Cardiovascular: Regular Rhythm, Normal S1, Normal S2, No Murmurs, No Rubs, No Gallops Vascular: No Carotid Bruits, Normal Femoral Pulses, Normal Radial Pulses, Normal Dorsalis Pedal Pulse, Normal Posterior Tibial Pulses Abdomen: Bowel Sounds Present, Soft, Non Tender, No HSM, No Organomegaly Extremities: No Cyanosis, No Clubbing, No edema Neurological: No Focal Motor or Sensory Deficit 10/29/19 04:45: WBC 8.4, RBC 4.52 L, Hgb 13.4, Hct 38.8 L, MCV 85.8, MCH 29.6, MCHC 34.5, Plt Count 126 L, MPV 9.4 10/29/19 04:45: Sodium 138, Potassium 3.7, Chloride 106, Carbon Dioxide 26.0, Anion Gap 6, BUN 22 H, Creatinine 1.02, Est GFR (MDRD) Af Amer 90, Est GFR (MDRD) Non-Af 75, BUN/Creatinine Ratio 21.6 H, Glucose 122 H, Calcium 9.1, Total Bilirubin 0.60 Rhythm: EKG: ECHO: Stress Test: Cardiac Cath: PCI: CT Surgery: Holter monitor: EPS: PPM: CXR: Chest CT Scan: Medical Necessity - Tobacco Use Smoking Status: Former smoker Tobacco Use: Cigarettes Assessment/Plan 1. Coronary artery disease: The patient presented with new onset angina, acute coronary syndrome, non-STEMI, and underwent left heart catheterization with graft angiography identifying a 90% stenosis and a saphenous vein graft to the obtuse marginal. The patient received 2 drug-eluting stents to the saphenous vein graft to the obtuse marginal with filter wire assistance with an excellent result. He is asymptomatic today. The patient will continue baby aspirin daily and Plavix daily for life. We have added Imdur 30 mg p.o. daily, and hydrochlorothiazide 12.5 mg p.o. daily for elevated LVEDP. In addition he will continue his other antihypertensive medicines as outlined in the MR[facility]. Patient will be seen in the office in 1 to 2 weeks time, followed by cardiac rehab. Patient has a 30 to 40% proximal saphenous vein graft to PDA stenosis but this did not appear to require intervention. The patient have recurrent chest pain symptoms, he may require further reevaluation of this vessel. 2. Hyperlipidemia: Continue Lipitor therapy. Repeat lipid profile after cardiac rehab is completed. 3. Thank you very much for the opportunity to participate in the cardiac care of your patient. Patient may be discharged home and follow-up with Dr. Ramires going forward. Inpatient E&M: [id number] [facility] Hosp L2
[2019-10-29] MEDS: Atenolol 25 MG Tablet PO (09:22)
[2019-10-29] MEDS: Lisinopril 20 MG Tablet PO (09:22)
[2019-10-29] MEDS: hydroCHLOROthiazide 12.5mg 12.5 MG PO (09:22)
[2019-10-29] MEDS: Clopidogrel Bisulfate 75 MG Tablet PO (09:23)
[2019-10-29] MEDS: Tamsulosin HCl 0.4 MG Capsule PO (09:23)
[2019-10-29] MEDS: Finasteride 5 MG Tablet PO (09:23)
[2019-10-29] MEDS: Isosorbide Mononitrate 30 MG Tablet PO (09:23)
[2019-10-29] MEDS: amLODIPine 5 MG Tablet PO (09:23)
--- NOTE | 2019-10-29 09:43 | PCM.DC ---
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 Successful PTCA/BRYSON to SVG to OM#1 with filter wire assistance utilizing a 3.5 x 24 Promus Synergy, followed immediately upstream with a 3.5 x 8 Promus Synergy, all post dilated with a 3.5 x 8 NC Balloon; 90%-->0%, no dissection. Large piece of SVG grummus captured within filter wire. 10/28/2019 per DJN @ [facility] NSTEMI (non-ST elevated myocardial infarction) (Acute) You will use the following diet at home:: Cardiac Your food should be the consistency of: Regular Your liquids should be the consistency of: Regular/Thin Discharge Activity: Return to Normal Activity Call your doctor if you observe: Fever of 101 or Higher, Shortness of breath, Dizziness, Fainting spells, Swelling in the ankles, Chest pain, Increased palpitations (irregular heartbeat) Allergies/Adverse Reactions: Allergies No Known Allergies Allergy (Verified 10/27/19 14:09) Medications to take at Discharge Omeprazole [Prilosec] 20 mg PO DAILY 11/12/17 Vit A/Vit C/Vit E/Zinc/Copper [Preservision Areds Softgel] 1 capsule PO BID 11/12/17 finasteride 5 mg tablet 5 mg PO DAILY 02/23/18 aspirin 81 mg tablet,delayed release 81 mg PO DAILY 08/11/18 atenolol 25 mg tablet 25 mg PO BID #180 tab 10/21/18 lisinopril 20 mg tablet 20 mg PO BID #180 tab 12/24/18 clopidogrel 75 mg tablet 75 mg PO DAILY #90 tab 02/12/19 Amlodipine [Norvasc] 5 mg PO DAILY 10/27/19 Simvastatin 20 mg PO QHS 10/27/19 Tamsulosin HCl 0.4 mg PO BID 10/27/19 Turmeric/Turmeric Root Extract [Turmeric 500 mg Capsule] 500 mg PO BID 10/27/19 Isosorbide Mononitrate [Imdur] 30 mg PO DAILY #30 tab 10/29/19 hydroCHLOROthiazide [Hydrochlorothiazide] 12.5 mg PO DAILY #30 cap 10/29/19 The following prescriptions were given: hydroCHLOROthiazide [Hydrochlorothiazide] 12.5 mg PO DAILY #30 cap Transmission Status: Pending to [facility] Isosorbide Mononitrate [Imdur] 30 mg PO DAILY #30 tab Transmission Status: Pending to [facility] Orders to be completed after discharge: Phase II, Outpatient Cardiac Rehab Location: None Selected Primary Care Physician: Robel Onofre DO [Primary Care Provider] - Please follow up with your Primary Care Physician in: 3-5 days Test Results: Test results from this visit will be discussed in further detail at your follow-up appointment, if applicable. Please Follow Up With: Florencio Ramires MD When: 1-2 weeks
--- NOTE | 2019-10-29 10:09 | PCM.DC.SUM ---
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 Successful PTCA/BRYSON to SVG to OM#1 with filter wire assistance utilizing a 3.5 x 24 Promus Synergy, followed immediately upstream with a 3.5 x 8 Promus Synergy, all post dilated with a 3.5 x 8 NC Balloon; 90%-->0%, no dissection. Large piece of SVG grummus captured within filter wire. 10/28/2019 per DJN @ [facility] History of endovascular stent graft for abdominal aortic aneurysm (AAA) (Chronic) Stent Graft 2009 Atherosclerosis of [place] coronary artery of [place] heart without angina pectoris (Chronic) Essential (primary) hypertension (Chronic) Hyperlipemia, mixed (Chronic) Hospital Course and Treatment Imaging Results: CXR: IMPRESSION: Mild increased markings at the lung bases suggestive of linear atelectasis and/or scarring. Cardiac Cath: CONCLUSIONS Triple vessel CAD of the LAD, LCX and RCA Normal Left Ventricular systolic function LVEF: by LV gram 65 % Elevated Left Ventricular End Diastolic Pressure Widely patent sequential HANCOCK to LAD and DIAG Widely patnet SVG to PDA with eccentric 40% narrowing. Successful PTCA/BRYSON to SVG to OM#1 with filter wire assistance utilizing a 3.5 x 24 Promus Synergy, followed immediately upstream with a 3.5 x 8 Promus Synergy, all post dilated with a 3.5 x 8 NC Balloon; 90%-->0%, no dissection. Large piece of SVG grummus captured within filter wire. RECOMMENDATIONS Referred for immediate PCI Highly recommend quitting all tobacco products Follow up with primary clinical review specialist Risk factor modification ASA Indefinitley Plavix for at least 12 months Routine post interventional care Refer for Outpatient Cardiac Rehab Manual sheath removal per protocol Follow up with Dr. Ramires Manual sheath removal as unable to close due to poor visibilty with previous hip replacement. Consults: Cardiology Operations: None Procedures: Cardiac catheterization Summary of Care Provided: Per HPI: The patient is a 79 year old M with a PMH as below presents to the hospital with 2 episodes of chest pain. He said his initial chest pain happened last night and it was a substernal chest pain with no radiation he fell asleep and he woke up without any chest pain. Then today around noon he had another episode while at rest however this substernal chest pain and therefore presented to the hospital. He did not have any acute EKG changes in the ER and his initial troponin was negative at 0.037. This chest pain this afternoon was relieved with nitroglycerin and aspirin on his way to the ER. And neither episode caused radiation of pain. He does have a cardiac history with a CABG in 1996 as well as a heart cath a few years ago. He did also have a normal stress test in March 2019. 3 hours after his initial troponin his second troponin came back elevated to 0.153, thus giving him a KALLI score of 6. The case was discussed with cardiology and he is already on aspirin and Plavix which he will continue he was also given a dose of therapeutic Lovenox. Hospital Course: 1. NSTEMI/CAD s/p stent and CABG/HTN/[id number]-old male with a history of a CABG presents with chest pain for 2 days. He underwent a cardiac cath because of a rising troponin and was found to have triple-vessel disease. He had 2 drug-eluting stents placed in the saphenous vein graft to OM1. He has done well after the procedure, denies any chest pain. He was started on Imdur and hydrochlorothiazide for his blood pressure as well as continued on his aspirin, Plavix, lisinopril, atenolol, and Norvasc. He will also be continued on his simvastatin. He will need to follow-up with his primary care doctor in 3 to 5 days and with cardiology in 1 to 2 weeks. Patient Problems: Active and Suspected Problems (Last Updated 10/28/19 @ 14:21 by Saida Middleton) NSTEMI (non-ST elevated myocardial infarction) (Acute) - Physical Exam Vitals/I&O's: Vital Signs Temp Pulse Resp BP Pulse Ox 98 F 69 16 118/58 L 98 10/29/19 09:00 10/29/19 09:00 10/29/19 09:00 10/29/19 09:00 10/29/19 09:00 Oxygen Delivery Method Room Air Weight: 180 lb 8.937 oz Body Mass Index (BMI) 28.3 Intake and Output for Last 24 Hours 10/27/19 10/28/19 10/29/19 23:59 23:59 23:59 Intake Total 1019.25 / 1219.25 400 / 400 Output Total 850 / 1125 275 / 275 Balance 169.25 / 94.25 125 / 125 General: Alert, Oriented x3, Cooperative, No apparent distress HEENT: Atraumatic, PERRLA, EOMI, Normocephalic Oral: Moist Mucosa Neck: Supple, No JVD Lungs: Clear to auscultation, Normal air movement, No rhonchi, No wheeze, No rales Cardiovascular: Regular rate, Regular Rhythm, Normal S1, Normal S2, No murmurs Abdomen: Soft, Non Tender, Non-Distended, No Hepato-splenomegaly Extremities: No edema, Capillary Refill Less than 3 Seconds Skin: No rashes, No breakdown Neurological: Neuro grossly intact, Sensory exam intact to light touch and pain Psych/Mental Status: Normal Affect, Appropriate Laboratory Results 10/28/19 09:15: Activated Clotting Time 246 H 10/28/19 11:35: Activated Clotting Time 186 H 10/28/19 12:29: Activated Clotting Time 169 H 10/29/19 04:45: WBC 8.4, RBC 4.52 L, Hgb 13.4, Hct 38.8 L, MCV 85.8, MCH 29.6, MCHC 34.5, RDW Std Deviation 41.5, RDW Coeff of Zoë 13.3, Plt Count 126 L, MPV 9.4 10/29/19 04:45: Sodium 138, Potassium 3.7, Chloride 106, Carbon Dioxide 26.0, Anion Gap 6, BUN 22 H, Creatinine 1.02, Estim Creat Clear Calc 54.00, Est GFR (MDRD) Af Amer 90, Est GFR (MDRD) Non-Af 75, BUN/Creatinine Ratio 21.6 H, Glucose 122 H, Calcium 9.1, Total Bilirubin 0.60, AST 17, ALT 16, Alkaline Phosphatase 116, Total Protein 6.8, Albumin 3.5, Globulin 3.3, Albumin/Globulin Ratio 1.1 Current Medications Acetaminophen (Tylenol) 650 mg PO Q6H PRN PRN PRN Reason: Pain Score 1-10/Temp > 100.7 F Acetaminophen (Tylenol) 650 mg PO Q6H PRN PRN PRN Reason: Pain Score 1-3/10 Amlodipine Besylate (Norvasc) 5 mg PO DAILY [facility] Last Admin: 10/29/19 09:23 Dose: 5 mg Documented by: [facility] Admin: 10/29/19 07:58 Dose: 81 mg Documented by: Atenolol (Tenormin (Beta Kenan)) 25 mg PO BID [facility] Last Admin: 10/29/19 09:22 Dose: 25 mg Documented by: Atorvastatin Calcium (Lipitor) 10 mg PO QHS [facility] Last Admin: 10/28/19 22:44 Dose: 10 mg Documented by: Atropine Sulfate () 0.5 mg IV UD PRN PRN Reason: HR <50 bpm Calcium Carbonate (Tums) 1,000 mg PO Q6H PRN PRN PRN Reason: heartburn Last Admin: 10/29/19 08:26 Dose: 1,000 mg Documented by: Clopidogrel Bisulfate (Plavix) 75 mg PO DAILY [facility] Last Admin: 10/29/19 09:23 Dose: 75 mg Documented by: Finasteride (Proscar) 5 mg PO DAILY [facility] Last Admin: 10/29/19 09:23 Dose: 5 mg Documented by: Heparin Sodium (Beef Lung) (Heparin 500 Unit/5 Ml (100/Ml)) 500 unit IV UD PRN PRN Reason: HEPARIN FLUSH Hydrochlorothiazide () 12.5 mg PO DAILY [facility] Last Admin: 10/29/19 09:22 Dose: 12.5 mg Documented by: Sodium Chloride () 1,000 mls @ 0 mls/hr IV .Q0M [facility] Nitroglycerin/Dextrose () 250 mls @ 3 mls/hr IV .[id number] [facility]; Protocol Last Titration: 10/28/19 17:00 Dose: Infused Documented by: Isosorbide Mononitrate (Imdur) 30 mg PO DAILY [facility] Last Admin: 10/29/19 09:23 Dose: 30 mg Documented by: Labetalol HCl (Trandate) 5 mg IV X1 PRN PRN Reason: SBP > 160 when pulling sheath Stop: 10/30/19 10:44 Lisinopril (Zestril) 20 mg PO BID [facility] Last Admin: 10/29/19 09:22 Dose: 20 mg Documented by: Lorazepam (Ativan) 1 mg PO Q6H PRN PRN PRN Reason: BACK SPASMS/ANXIETY Metoclopramide HCl (Reglan) 5 mg IV Q6H PRN PRN PRN Reason: NAUSEA/VOMITING Morphine Sulfate () 2 - 4 mg IV Q4H PRN PRN PRN Reason: Pain Score 1-10/10 Nitroglycerin (Nitrostat) 0.4 mg SUBLINGUAL Q5M PRN PRN Reason: CARDIAC/CHEST PAIN Nitroglycerin (Nitrostat) 0.4 mg SUBLINGUAL Q5M PRN PRN Reason: CARDIAC/CHEST PAIN Ondansetron HCl (Zofran) 4 mg IV Q8H PRN PRN PRN Reason: NAUSEA/VOMITING Pantoprazole Sodium (Protonix) 20 mg PO DAILY [facility] Last Admin: 10/29/19 07:58 Dose: 20 mg Documented by: Sodium Chloride () 10 - 40 ml IV UD PRN PRN Reason: SALINE FLUSH Sodium Chloride () 500 ml IV BOLUS PRN PRN Reason: VASO-VAGAL PROTOCOL Tamsulosin HCl (Flomax) 0.4 mg PO DAILY [facility] Last Admin: 10/29/19 09:23 Dose: 0.4 mg Documented by: Discharge Activity: Return to Normal Activity Call your doctor if you observe: Fever of 101 or Higher, Shortness of breath, Dizziness, Fainting spells, Swelling in the ankles, Chest pain, Increased palpitations (irregular heartbeat) Home Medications: Medications to take at Discharge Omeprazole [Prilosec] 20 mg PO DAILY 11/12/17 Vit A/Vit C/Vit E/Zinc/Copper [Preservision Areds Softgel] 1 capsule PO BID 11/12/17 finasteride 5 mg tablet 5 mg PO DAILY 02/23/18 aspirin 81 mg tablet,delayed release 81 mg PO DAILY 08/11/18 atenolol 25 mg tablet 25 mg PO BID #180 tab 10/21/18 lisinopril 20 mg tablet 20 mg PO BID #180 tab 12/24/18 clopidogrel 75 mg tablet 75 mg PO DAILY #90 tab 02/12/19 Amlodipine [Norvasc] 5 mg PO DAILY 10/27/19 Simvastatin 20 mg PO QHS 10/27/19 Tamsulosin HCl 0.4 mg PO BID 10/27/19 Turmeric/Turmeric Root Extract [Turmeric 500 mg Capsule] 500 mg PO BID 10/27/19 Isosorbide Mononitrate [Imdur] 30 mg PO DAILY #30 tab 10/29/19 hydroCHLOROthiazide [Hydrochlorothiazide] 12.5 mg PO DAILY #30 cap 10/29/19 Following Prescrptions Were Given to Patient: hydroCHLOROthiazide [Hydrochlorothiazide] 12.5 mg PO DAILY #30 cap Transmission Status: Sent to [facility] Isosorbide Mononitrate [Imdur] 30 mg PO DAILY #30 tab Transmission Status: Sent to [facility] Other Amb Orders: Phase II, Outpatient Cardiac Rehab Location: None Selected Primary Care Physician: Robel Onofre DO [Primary Care Provider] - Please follow up with your Primary Care Physician in: 3-5 days Please Follow Up With: Florencio Ramires MD When: 1-2 weeks Disposition: Home Minutes spent on discharge:: 35 Patient Condition:: Stable Medical Necessity - Tobacco Use Smoking Status: Former smoker Tobacco Use: Cigarettes Meaningful Use Info Meaningful Use Diagnoses (Choose all that apply): AMI - AMI/Post PCI/Angioplasty Aspirin given w/in 24hrs of arrival?: Yes ASA at discharge?: Yes Antiplatelet Therapy at Discharge:: Yes Statins at discharge?: Yes Gabriel/ARB at discharge?: Yes Beta Kenan at discharge?: Yes Done w/ Acute AL measure.: Yes Inpatient E&M: 31818 Disch Hosp
== END 2019-10-29 11:00 | disposition home or self-care (01) | DRG 247 ==
LOC: ED 14:57 → PCU 18:30 → ICU 10-28 09:50
PROVIDERS: Internal Medicine; Internal Medicine Cardiovascular Disease; Admitting Provider Family Medicine; Emergency Provider Emergency Medicine; PCP Student in an Organized Health Care Education/Training Program; Visit Provider Family Medicine
DX: I21.4 Non-ST elevation (NSTEMI) myocardial infarction (principal); I25.110 Atherosclerotic heart disease of native coronary artery with unstable angina pectoris; I10 Essential (primary) hypertension; E78.2 Mixed hyperlipidemia; H35.30 Unspecified macular degeneration; Z79.82 Long term (current) use of aspirin; Z87.891 Personal history of nicotine dependence; Z79.02 Long term (current) use of antithrombotics/antiplatelets; Z95.1 Presence of aortocoronary bypass graft; Z86.79 Personal history of other diseases of the circulatory system; I25.710 Atherosclerosis of autologous vein coronary artery bypass graft(s) with unstable angina pectoris
CPT/HCPCS: 36415; 71045; 80048; 80053; 84484; 85025; 85027; 85347; 92937; 93005; 93459; 99285; J7030; J7040; Q9967; A4216; C1725; C1769; C1874; C1884; C1887; C1894; C9604

== ENCOUNTER → 2019-11-04 07:44 | Outpatient (CLI) | payer MEDICARE, OTHER, SELFPAY ==
[2019-10-27 19:29] VITALS: BMI 28.3
--- NOTE | 2019-11-04 07:49 | PCM.CR.ITP ---
Diagnosis - General Information Admitting Diagnosis: PCI W/CORONARY STENT Secondary Diagnosis: NSTEMI Personal Learning Style:: Audio/Visual, Written Barriers to Learning: Hearing Impairment - BILATERAL HEARING AIDS, Vision Impairment - BILATERAL MACULAR DEGENERATION 10% VISION; CONSIDERED LEGALLY BLIND Gave educational material for:: Treating Heart Disease, Emotions & Heart Disease, Stress Management & Relaxation, Sleep Disorders & Heart Disease, How The Heart Works, What it means to have Heart Disease, How Coronary Artery Disease is Diagnosed, Heart Procedures, What Heart Medications Do, Risk Factors & Modifications, Living an Active Life, Nutrition - Education/Goals Individual Counseling: Initial Assessment: Abnormal Cholesterol Levels, High Blood Pressure Cardiac Rehabilitation Goals: 1. Maintain the individual as the primary focus of care. 2. To improve the patient's quality of life. 3. Identification of cardiac risk factors and provide cardiac risk factor management. 4. Enhance the psychosocial status of the patient. 5. Reconditioning enough to allow the patient to resume customary activities. 6. Control symptoms of cardiac disease Personal Goals: Initial Assessment: Improve management of stress and emotions, Improve energy level, Participate in home exercise program, Get back to work, or to resume activities faster, Improve knowledge of cardiac disease, Improve muscle strength and endurance, Improve diet and eating habits (eat healthier), Control risk factors (learn risk factor modification) Scale for measuring improvement of personal goals: Enter appropriate number in Comments. 2 = Unchanged. 3 = Slightly Better. 4 = Moderate Improvement. 5 = Met my Goal - Diagnosis & Disease Process Outcomes/Goals: Pt IDs own risk factors & lifestyle modifications by Session 10, Verbalizes symptoms of angina & response by session 3., Pt independently manages Plan/Interventions: Assist Pt to ID & engage in lifestyle modification to reduce CVD risk, Instruct on individual risk factors, Review symptoms of angina & emergency actions, Review secondary diagnosis & identify educational needs. 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 Assistive Devices:: None Exercise - Initial Assessment - Visit Date of Eval: 11/04/19 Session #:: 0 - INITIAL EVALUATION Mets: Pre-: >5 METS for 30 minutes by discharge - Physician Prescribed Exercise Modalities: Treadmill, Airdyne, NuStep Frequency: 3x/week for 12 weeks [36 sessions] Intensity: 60-80% of age predicted maximum heart rate reserve Current METSs:: 3.0 Target Heart Rate:: 96-125 EKG Type: SINUS BRADYCARDIA - Outcomes & Goals Goals:: Verbalizes understanding of THR, RPE & goal METS by session 6, Documents in home exercise log/reports 30 min aerobic 5 day/wk by DC, Demonstrates accurate pulse taking by DC - Intervention & Plan Exercise Program Goals: Instruct on personal THR & RPE, Instruct on MET level & personal MET goal, Show patient to take own pulse /validate performance until accurate, Instruct on home exercise - Physical Activity Home Exercise Physical Activity - Home Exercise: Safe Exercise, Warm-up, Self-monitoring, Cool-Down, Home Exercise > 30 min Daily, Sitting Time <3 hours/daily - Outcomes & Goals Outcomes/Goals: Demonstrates correct Warm-up/exercise Cool-Down (S3) if = 2.5 METs, Verbalizes symptoms of exercise intolerance by Session 3 (S3), Demonstrate safe equipment use (S3) & follows exercise prescrition (6) - Intervention & Plan Plan/Intervention: Instruct warm-up & cool-down if exercising at > 2 METs, Instruct on symptoms of exercise intolerance & actions to take, Instruct & monitor on saf, Assess intial functional capacity & safety risk Nutrition - Initial Assessment - Program Goals Nutrition Program Goals: LDL <100 optimal. 100 - 129 Near optimal. 130 - 159 Borderline High. 160 - 189 High. Total Cholesterol <200 desirable. 200 - 239 Borderline High. >/= 240 High. HDL < 40 Low >/=60 High. Triglycerides <150 desirable. <199 optimal. VlDL 5 - 40. HgbA1C <7%. BMI <25 Patient has diagnosis of Hyperlipidemia (ICD E78)?: Yes - Visit Date of Assessment:: 11/04/19 - Cholesterol/Lipids Triglycerides (mg/dL): 284 - 03/03/2019 LDL Cholesterol (mg/dL): 26 HDL Cholesterol (mg/dL): 29 Determine presence & major risk factors that modify LDL goal: Hypertension or hypertensive medication, Low HDL cholesterol <40 mg/dL* Outcomes/Goals: Pt IDs own risk factors & lifestyle modifications by Session 10, Verbalizes symptoms of angina & response by session 3., Pt independently manages Intervention/Plan: Instruct on personal lipid levels & lipid goals/NCEP guidelines, Instruct on cholesterol Referral to dietitian:: Yes - MEDICAL NUTRITION THERAPY - Diabetes (Other Core Measures) Diabetes Type: Not Applicable - Weight Mgt (Other Care) Outcomes/Goals: Pt sets, maintains & shows weight loss goal & trend during rehab Intervention/Plan: Instruct on ideal BMI & set weight loss goal w/patient - Healthy Eating Habits Will attend diet classes:: Yes Outcomes/Goals:: Consume diet rich in vegs,fruits,whole grain/high fiber,fish,lean meat, Limit sat/trans fats,cholesterol & added salts & sugars Intervention/Plan:: Assess current eating habits - Education Gave educational materials for:: Healthy eating Medical - Initial Assessment - Visit Date of Eval: 11/04/19 Session #:: 0 - IITIAL EVALUATION - Medication Compliance Preventative Medication(s):: Aspirin, Clopidogrel/P2Y12 inhibit, Statin/lipid Doesn?t believe in the benefits of treatment?: No Believes medications are unnecessary or harmful?: No Has a concern about medication side effects?: No Expresses concern over the cost of medications?: No Outcomes/Goals: Verbalizes medications,desired effect & common side effects @ DC, Pt self-reports following medication regimen, Keeps card in wallet w/medications listed by DC Interventions/plans: Instruct on medication effects & side effects, Review medication list w/patient every two weeks, Instruct importance of taking meds as ordered & assist problem solving - Tobacco Use Tobacco Use: Non-smoker - Hypertension Hypertension Diagnosis:: Hypertension ICD-10 I10 Resting Blood Pressure:: 120/60 [place] [employer] Hypertension Guidelines: [place] [employer] Hypertension Guidelines. Normal BP Less than 120/80. Elevated BP 120/80. Hypertension Stage 1: BP 130-139/80-89. Hypertesnion Stage 2: BP 140 or higher/90 or higher. Hypertension Crisis: BP higher than 180/120 Outcomes/Goals: Able to verbalize/achieve optimal blood pressure <130/80, Incorporates diet changes & exercise for blood pressure control by DC Interventions/plan: Instruct on optimal blood pressure, hypertension & medications, Instruct on effects of sodium, alcohol, stress, exercise &hypertension - Tobacco Cessation Referral Smoking Cessation Referral:: No Individual Education/Counseling:: No Education Schedule Given:: Yes Psychosocial - Initial Assess - VIsit Date of Eval: 11/04/19 Session #:: 0 - INITIAL EVALUATION Not Applicable: Yes History of previous Mental disease:: No Self-reported stressors: Other - VISION IMPAIRMENT PREVENTS ME FROM DOING MANY ACTIVITIES - Target Goals Target Goals: Assess presence or absence of depression. Using a valid screening tool, maximizes coping skills. Positive support system - Psychosocial Test Tool Used:: Alex Wiggins QOL Cardiac, PHQ-9 Questionnaire phq-9 Severity: Severity. 1-4 Minimal Depression. 5-9 Mild Depression. 10-14 Moderate Depression. 15-19 Moderately Sever Depression. 20-27 Severe Depression. Rule: - Referral to Behavioral Health PS - Interventions: Yes Attend Stress Management Classes - Outcomes/Goals: See list Psychosocial Outcomes/Goals:: ID's personal stressors & 2 strategies to manage stress by discharge - Intervention/Plan: See List Interventions/Plan:: Assess stressors,coping strategies & signs of derpression on admission, Instruct/assist pt to develop coping & personal stress Mgt strategies, Instruct patient to recognize signs & symptoms of depression, Instruct patient to recog Patient Health Questionnaire Initial Assessment 1. Little interest or pleasure in doing things: Several days 2. Feeling down, depressed, or hopeless: Several days 3. Trouble falling or staying asleep, or sleeping too much: Not at all 4. Feeling tired or having little energy: Several days 5. Poor appetite or overeating: Not at all 6. Feeling bad about yourself -- or that you are a failure or have let yourself or your family down: Several days 7. Trouble concentrating on things, such as reading the newspaper or watching television: Not at all 8. Moving or speaking so slowly that other people could have noticed. Or the opposite - being so fidgety or restless that you have been moving around a lot more than usual: Not at all 9. Thoughts that you would be better off , or of hurting yourself in some way: Several days How difficult have these problems made it for you to do your work, take care of things at home, or get along with other people?: Very difficult - EMOTIONAL ASPECT MORE RELATED TO HIS LOSS OF VISION WHICH HINDERS HIS ABILITY TO DO NORMAL ACTIVIES. Total Score: 5 PERICO-Q SV Test - Statements CAD is a disease of the arteries in the heart: False Examples of risk factors for heart disease: True Angina is chest pain or discomfort: True The benefits of resistance training include: True Eating more meat and dairy products: False Anti-platelet medications such as aspirin are important: True The only effective way to manage stress: False An exercise warm-up slowly increases heart rate: True Prepared, processed foods usually have high sodium: True Depression is common after a heart attack: True The statin medications lower cholesterol: True To control blood pressure, lower the amount of sodium: True If someone gets chest discomfort during walking: False Transfats are partially hydrogenated vegetable oils: True Sleep apnea that is not treated increases the risk: I Don't Know To control cholesterol, one should become a vegetarian: False Someone knows if he/she is exercising at the right level: I Don't Know Diabetes cannot be prevented with exercise & health eating: I Don't Know Stress is a large risk for heart attack: I Don't Know A diet that can help lower blood pressure is rich in: True - Total Score Total Correct Responses: 16 Self-Efficacy Initial Assessment We would like to know how confident you are in doing certain activities. Please select your confidence level for:: Select your confidence level for the following using the scale 1-10 where 1 is not at all confident and 10 is totally confident. Your score is the average of all 6 responses. Fatigue: How confident are you that you can keep the fatigue caused by your disease from interfering with the things you want to do? Select Number: 8 Physical Discomfort or Pain: How confident are you that you can keep the physical discomfort or pain of your disease from interfering with the things you want to do? Select Number: 8 Emotional Distress: How confident are you that you can keep the emotional distress caused by your disease from interfering with the things you want to do? Select Number: 9 Other Symptoms or Health Problems: How confident are you that you can keep other symptoms or health problems from interfering with the things you want to do? Select Number: 2 Different Tasks and Activities: How confident are you that you can do the different tasks and activities needed to manage your health condition so as to reduce your need to see a doctor? Select Number: 8 Medication: How confident are you that you can do things other than just taking medication to reduce how much your illness affects your everyday life? Select Number: 9 Total Score:: 7 Nutrition Survey - Nutrition Survey Instructions Scoring Instructions: Scoring is as follows: Yes = 1 points. No = 0 point. Patient score that is >/=12 is considered to be at potential nutritional risk and could benefit from a referral to a registered dietitian. - Nutrition Survey Initial Have you lost >10 lbs over the past 2 months without trying?: No Are you following a special diet at home for diabetes, low fat, or low salt?: No Are you interested in meeting with a dietitian for help understanding your diet?: Yes Do you eat less than 3 meals a day?: No Do you eat fatty meats (love, sausage, ribs, etc), fried foods, desserts, large amounts of salad dressings, margarine, butter, or cheese most days?: Yes Do you have food allergies? [Enter types in comment field]: No Do you eat in restaurants more than 3 times a week?: No Do you season food with salt, seasoning salt, or garlic salt?: Yes Do you used canned, boxed, frozen meals, or soups, seasoning packets?: No Total Score:: 3
--- NOTE | 2019-11-04 07:50 | PCM.CR.HP2 ---
CR - History & Physical - General Arrival date:: 11/04/19 Arrival time:: 07:54 Date of Referral:: 10/28/19 Date of CR Evaluation:: 11/04/19 Referring Physician: DR. ADDISON GARDINER Primary Diagnosis: PCI W/CORONARY STENTING - History of Present Cardiac Event Onset Date: Enter Onset Date of cardiac illnesses in Comment field below Acute Myocardial Infarction within 12 months:: Yes - NSTEMI 10/28/2019 PTCA or coronary stenting:: Yes - 10/28/2019 - Medications Home Medications: Ambulatory Orders Medication Instructions Recorded Omeprazole [Prilosec] 20 mg PO DAILY 11/12/17 Vit A/Vit C/Vit E/Zinc/Copper 1 capsule PO BID 11/12/17 [Preservision Areds Softgel] finasteride 5 mg tablet 5 mg PO DAILY 02/23/18 aspirin 81 mg tablet,delayed 81 mg PO DAILY 08/11/18 release atenolol 25 mg tablet 25 mg PO BID #180 tab 10/21/18 lisinopril 20 mg tablet 20 mg PO BID #180 tab 12/24/18 Amlodipine [Norvasc] 5 mg PO DAILY 10/27/19 Simvastatin 20 mg PO QHS 10/27/19 Tamsulosin HCl 0.4 mg PO BID 10/27/19 Turmeric/Turmeric Root Extract 500 mg PO BID 10/27/19 [Turmeric 500 mg Capsule] Isosorbide Mononitrate [Imdur] 30 mg PO DAILY #30 tab 10/29/19 clopidogrel 75 mg tablet 75 mg PO DAILY #90 tab 10/29/19 hydroCHLOROthiazide 12.5 mg PO DAILY #30 cap 10/29/19 [Hydrochlorothiazide] - Allergies Allergies/Adverse Reactions: Allergies No Known Allergies Allergy (Verified 10/27/19 14:09) - Sleep Disorder Evaluation Hx of Sleep Apnea: No Do you snore loudly (louder than talking or can be heard through closed doors)?: No Do you often feel tired/ fatigued/ sleepy during daytime?: No - PRIOR TO THE HEART ATTACK, FEELING MUCH BETTER SINCE THE STENT Has anyone observed you stop breathing during sleep?: No History of Hypertension (for STOP score): Yes STOP Results: Negative Advanced Directives - Advanced Directives Power of Printed Circuit Board Panels Developer: Yes Living Will: Yes Advance Directives Information Provided: No Advance Directives on File: No DNR Order?:: No - MOLST See MOLST form: No Past Medical History - Past Medical Illness Medical History: Past Medical History (Last Updated 11/04/19 @ 07:58 by Etienne Banks, EDUARD, BANQUET MANAGER, BS) 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) I25.810 Dyspnea on exertion (Acute) R06.09 Atherosclerosis of [place] coronary artery of [place] heart without angina pectoris (Chronic) I25.10 Essential (primary) hypertension (Chronic) I10 Hyperlipemia, mixed (Chronic) E78.2 Macular degeneration of both eyes H35.30 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 Successful PTCA/BRYSON to SVG to OM#1 with filter wire assistance utilizing a 3.5 x 24 Promus Synergy, followed immediately upstream with a 3.5 x 8 Promus Synergy, all post dilated with a 3.5 x 8 NC Balloon; 90%-->0%, no dissection. Large piece of SVG grummus captured within filter wire. 10/28/2019 per [facility]N @ [facility] History of endovascular stent graft for abdominal aortic aneurysm (AAA) (Chronic) Z95.828 Stent Graft 2009 H/O bilateral hip replacements Z96.643 History of tonsillectomy Z90.89 H/O coronary artery bypass surgery Z95.1 CABG x 4 Sequential HANCOCK-LAD and D1, , SVG-OM and SVG-RCA 09/22/96 History of left heart catheterization Z98.890 1996, 06/30/2007 - Family History Summary Family History: Family History (Last Reviewed 03/23/19 @ 20:37 by Saida Middleton) Mother CAD (coronary artery disease) Brother CAD (coronary artery disease) CABG Brother CAD (coronary artery disease) Social History - Smoking History Smoking Status: Former smoker Years Smokin - QUIT SMOKING 37 YEARS AGO Hx Tobacco Use: No Hx Smoking Exposure: No - Alcohol Use Alcohol Usage: No - Substance Abuse Hx Substance Use: No - Occupation Occupation (List type of work in comments):: Retired - Hobbies, Recreation, Social Activities Hobbies: Other - [employer], PREVIOUS H/O TRAVELING [employer] Recreational Activities: I am able to engage in most, but not all activities, I am able to engage in a few activities - IF COULD SEE COULD DO ALOT MORE, EVEN HAD TO QUIT DRIVING LAST JANUARY DUE TO VISION ISSUES. IF COULD SEE COULD DO A LOT MORE. Social Environment - Status Marital Status: - Current Living Arrangements Living Environment:: Spouse - Children How many children do you have?: 3 Do any of your children live nearby?: Yes - DAUGHTER JUST NEXT DOOR, SON MOVING BACK FROM [facility] - Safety Do you feel safe in your surroundings?: Yes - Assistance Do you need any assistance at home?: VERY LITTLE. Review of Systems - Review of Systems Hints: Right click = Denies ([place]ash). Left click = Reports ([place]) Review of Present Symptoms: Reports: Shortness of Breath with Exertion - SOME IF I REALLY EXERT MYSELF. NOTICE ALOT MORE ENERGY SINCE HAVING THE STENT DONE., Appetite - Normal, Appetite - Special Diet - NONE;, Sleep - Normal. Denies: Shortness of Breath at Rest, Dizziness/Lightheadedness, Fatigue - Pain Is Patient Pain Free?: Yes Pain Location: none Pain Level: 0/10 Risk Factor Assessment - Chief Complaint Chief Complaint: PT IS A VERY PLEASENT 79 YR OLD MALE WHO PRESENTST O CARDIAC REHAB TODAY FOLLOWING RECENT NSTEMI AND PCI INTERVENTION. THE PATIENT HAS ONLY 10% VISION IN BOTH EYES DUE TO MACULAR DEGENERATION DISEASE. - Vital Signs Temperature: 98.5 F Respiratory Rate: 20 Pulse Ox: 94 Blood Pressure: 120/60 Nailbeds:: PINK - Pulse Pulse Rate: 64 Pulse Rhythm: Regular - Blood Cholesterol/Lipids Total Cholesterol (mg/dL) Goal = less than 200 mg/dL: 0 - NO RECENT LIPID PROFILE 03/03/2019 HDL Cholesterol (mg/dL) Goal = less than 40 mg/dL: 29 LDL Cholesterol (mg/dL) Goal = less than 70 mg/dL: 26 - AT GOAL Triglycerides (mg/dL) Goal = less than 150 mg/dL: 284 - Diabetes Nutrition Referral for Diabetes: No - Obesity Height: 5 ft 7 in Weight:: 184 lb Weight in Pounds: 184.0 lbs Weight Source: [facility] Body Mass Index (BMI): 28.8 Nutritional Referral for Obesity: No - Physical Inactivity Physical Inactivity: None - NOT DUE TO PHYSICAL LIMITS BUT DUE TO VISION IMPAIRMENT - Risk Stratification Risk Guidelines: Lowest Risk: Risk Factor for Smoking, Risk Factor for Dyslipidemia, Risk Factor for Diabetes, Risk Factor for Hypertension, Risk Factor for Depression, Moderate Risk: Risk Factor for Obesity, Risk Factor for Sedentary Lifestyle - NOT THAT HE CANT DO ACTIVITIES, HE CAN'T SEE TO DO MUCH. - For Smoking Smoking Risk Guidelines: Smoking Low Risk: None or quit greater than 6 months ago. Smoking Moderate Risk: Smoker or quit 6 months or less ago. Smoking High Risk: Smoker - For Dyslipidemia Dyslipidemia Risk Guidelines: Low Risk: Moderate Risk: High Risk: 15-25% fat 25.1-29% fat >/= 30% fat. <7% sat fat 7-9% sat fat >9% sat fat. <150 mg chol 150-299 mg chol >/= 300 mg chol. LDL <100 LDL 100-129 LDL >/= 130. Chol/HDL ratio <5.0 Chol/HDL ratio 5.0-6.0 Chol/HDL ratio >6.0. Triglycerides <100 Triglycerides 100-149 Triglycerides >/= 150 - For Diabetes Mellitus Diabetes Risk Guidelines: Diabetes Low Risk: HgA1c <6.5% and/or FBG <120. Diabetes Moderate Risk: HgA1c 6.6-7.9% and/or FBG 120-180. Diabetes High Risk: HgA1c >/= 8% and/or FBG >180 - For Obesity/Overweight Obesity/Overweight Risk Guidelines: Obesity Low Risk: BMI <25.0. Obesity Moderate Risk: BMI 25-29.9. Obesity High Risk: BMI >/= 30.0 - For Hypertension Hypertension Risk Guidelines: Hypertension Low Risk: Systolic <120 and Diastolic <80. Hypertension Moderate Risk: Systolic 120-139 and Diastolic 80-89. Hypertension High Risk: Systolic >/= 140 and Diastolic >/= 90 - For Sedentary Lifestyle Sedentary Lifestyle Risk Guidelines: Sedentary Lifestyle Low Risk: >/= 1,500 kcal/week. Sedentary Lifestyle Moderate Risk: 700-1,499 kcal/week. Sedentary Lifestyle High Risk: < 700 kcal/week - For Depression Depression Risk Guidelines: Depression Low Risk: Not clinically depressed. Depression Moderate Risk: Mildly depressed. Depression High Risk: Clinically depressed - Family History Family History: Family History (Last Reviewed 03/23/19 @ 20:37 by Saida Middleton) Mother CAD (coronary artery disease) Brother CAD (coronary artery disease) Brother CAD (coronary artery disease) Motivation - Motivation to Participate On a scale of 1 to 10, how prepared are you to commit to attending program?: 8 What do you see as barriers to successfully being able to complete the program?: VISION, INABILITY TO DRIVE MYSELF. What do you see as the benefits of succesfully completing the program? In other words, what do you hope to get out of participating in the program?: PHYSICAL ABILITY TO DO MORE, IMPROVE EMOTIONS RELATED TO LOSS OF VISION. Are there issues you are dealing with that will interfere with completing the program?: LOSS OF VISION, IF SIT AROUND GET DOWN AND LOSS OF EMOTIONS. BEING PHYSICAL Do you have a spouse or signficant other, family or friends who will help support you to complete the program?: YES.
[2019-11-04 08:26] VITALS: BP 120/60; PULSE 64; RESP 20; TEMP 36.9; O2SAT 94; BMI 28.8
[2019-11-04 09:07] VITALS: BP 120/60
== END ==
PROVIDERS: PCP Student in an Organized Health Care Education/Training Program; Referring Provider Internal Medicine Cardiovascular Disease; Visit Provider Internal Medicine Cardiovascular Disease
DX: E78.2 Mixed hyperlipidemia (principal); I10 Essential (primary) hypertension; I25.810 Atherosclerosis of coronary artery bypass graft(s) without angina pectoris; Z95.1 Presence of aortocoronary bypass graft; Z95.5 Presence of coronary angioplasty implant and graft

== ENCOUNTER 2019-11-08 06:23 | Outpatient (RCR) | payer MEDICARE, OTHER, SELFPAY ==
[2019-11-04 08:26] VITALS: BMI 28.8
== END 2019-11-23 23:59 ==
LOC: CR 06:23
PROVIDERS: PCP Student in an Organized Health Care Education/Training Program; Referring Provider Internal Medicine Cardiovascular Disease; Visit Provider Internal Medicine Cardiovascular Disease
DX: I25.10 Atherosclerotic heart disease of native coronary artery without angina pectoris (principal); Z95.5 Presence of coronary angioplasty implant and graft
CPT/HCPCS: 93798

== ENCOUNTER → 2020-01-06 06:51 | Outpatient (CLI) | payer MEDICARE, OTHER, SELFPAY ==
[2019-11-18 10:24] VITALS: BMI 28.5
[2020-01-06 07:35] LABS: AST(SGOT) 19 U/L (15-37); Alanine Aminotransfer ALT/SGPT 19 U/L (16-61); Albumin, Serum 3.9 g/dL (3.2-5.0); Alkaline Phosphatase 117 U/L (45-117); Bilirubin, Direct 0.16 mg/dL (0.00-0.30); Cholesterol 122 mg/dL (200); Globulin 3.5 g/dL (2.2-4.2); High Density Lipoprotein 34 mg/dL; Protein, Total 7.4 g/dL (6.4-8.2); Triglycerides 270 mg/dL; Very Low Density Lipoprotein 54 mg/dL (5-40)
== END ==
PROVIDERS: PCP Student in an Organized Health Care Education/Training Program; Referring Provider Internal Medicine Cardiovascular Disease; Visit Provider Internal Medicine Cardiovascular Disease
DX: E78.00 Pure hypercholesterolemia, unspecified (principal); E78.2 Mixed hyperlipidemia; Z95.5 Presence of coronary angioplasty implant and graft
CPT/HCPCS: 36415; 80061; 80076

== ENCOUNTER 2020-01-21 11:30 | Outpatient (RCR) | payer MEDICARE, OTHER, SELFPAY ==
[2019-11-18 10:24] VITALS: BMI 28.5
--- NOTE | 2019-11-26 07:18 | PCM.CR.ITP ---
Exercise - Initial Assessment - Visit Date of Eval: 11/26/19 - With obvious neccessary interupption in the delivery of CR, the patient's program is on hold due to the coronovirus. The CR program has been closed for patient safety reasons.
--- NOTE | 2019-12-24 11:04 | PCM.CR.ITP ---
Diagnosis - General Information Admitting Diagnosis: PCI with coronary stent Personal Learning Style:: Audio/Visual, Demonstration, Group, Individual Preference, Written Barriers to Learning: Vision Impairment - Pt is legally blind Stage of change r/t lifestyle modifications:: Action Gave educational material for:: Treating Heart Disease, Emotions & Heart Disease, Stress Management & Relaxation, Sleep Disorders & Heart Disease, How The Heart Works, What it means to have Heart Disease, How Coronary Artery Disease is Diagnosed, Heart Procedures, What Heart Medications Do, Risk Factors & Modifications, Living an Active Life, Nutrition - Education/Goals Cardiac Rehabilitation Goals: 1. Maintain the individual as the primary focus of care. 2. To improve the patient's quality of life. 3. Identification of cardiac risk factors and provide cardiac risk factor management. 4. Enhance the psychosocial status of the patient. 5. Reconditioning enough to allow the patient to resume customary activities. 6. Control symptoms of cardiac disease Scale for measuring improvement of personal goals: Enter appropriate number in Comments. 2 = Unchanged. 3 = Slightly Better. 4 = Moderate Improvement. 5 = Met my Goal - Diagnosis & Disease Process Outcomes/Goals: Pt IDs own risk factors & lifestyle modifications by Session 10, Verbalizes symptoms of angina & response by session 3., Pt independently manages, Other Additional Outcomes/Goals: Plan/Interventions: Assist Pt to ID & engage in lifestyle modification to reduce CVD risk, Instruct on individual risk factors, Review symptoms of angina & emergency actions, Review secondary diagnosis & identify educational needs., Other see comment - Safety Fall Risk Assessed:: Yes - legally blind Assistive Devices:: None Exercise - 30-day Assessment - Visit Date of Eval: 12/24/19 Comments:: Pt was on hold for COVID 19 precaution. Pt is now going to start rehab. - Physician Prescribed Exercise Intensity: 60-80% of age predicted maximum heart rate reserve Target Heart Rate:: 96-125 EKG Type: SB - Outcomes & Goals Goals:: Verbalizes understanding of THR, RPE & goal METS by session 6, Documents in home exercise log/reports 30 min aerobic 5 day/wk by DC, Demonstrates accurate pulse taking by DC, Other additional outcome/goals: see below - Intervention & Plan Exercise Program Goals: Instruct on personal THR & RPE, Instruct on MET level & personal MET goal, Show patient to take own pulse /validate performance until accurate, Instruct on home exercise, Other additional plan/int Patient Health Questionnaire 30-Day Re-eval Assessment 1. Little interest or pleasure in doing things: Several days 2. Feeling down, depressed, or hopeless: Several days 3. Trouble falling or staying asleep, or sleeping too much: Not at all 4. Feeling tired or having little energy: Several days 5. Poor appetite or overeating: Not at all 6. Feeling bad about yourself -- or that you are a failure or have let yourself or your family down: Several days 7. Trouble concentrating on things, such as reading the newspaper or watching television: Not at all 8. Moving or speaking so slowly that other people could have noticed. Or the opposite - being so fidgety or restless that you have been moving around a lot more than usual: Not at all 9. Thoughts that you would be better off , or of hurting yourself in some way: Several days How difficult have these problems made it for you to do your work, take care of things at home, or get along with other people?: Very difficult - emotional aspect is more related to his loss of visioon Total Score: 5 Self-Efficacy 30-Day Re-eval Assessment We would like to know how confident you are in doing certain activities. Please select your confidence level for:: Select your confidence level for the following using the scale 1-10 where 1 is not at all confident and 10 is totally confident. Your score is the average of all 6 responses. Fatigue: How confident are you that you can keep the fatigue caused by your disease from interfering with the things you want to do? Select Number: 8 Physical Discomfort or Pain: How confident are you that you can keep the physical discomfort or pain of your disease from interfering with the things you want to do? Select Number: 8 Emotional Distress: How confident are you that you can keep the emotional distress caused by your disease from interfering with the things you want to do? Select Number: 9 Other Symptoms or Health Problems: How confident are you that you can keep other symptoms or health problems from interfering with the things you want to do? Select Number: 2 Different Tasks and Activities: How confident are you that you can do the different tasks and activities needed to manage your health condition so as to reduce your need to see a doctor? Select Number: 8 Medication: How confident are you that you can do things other than just taking medication to reduce how much your illness affects your everyday life? Select Number: 9 Total Score:: 7
--- NOTE | 2020-01-11 09:36 | CR.ITP_ITS ---
Exercise - 30-day Assessment - Visit Date of Eval: 01/11/20 Session #:: 6 Comments:: Suspension of Cardiac Rehab services resulted from 11/25/2019 through 12/27/2019 as a result of Covid-19 closure of the program under the Dept of [facility] and [place] Gov. [place]'s orders. - Physician Prescribed Exercise Modalities: Treadmill, Airdyne, NuStep Frequency: 3x/week for 12 weeks [36 sessions] Intensity: 60-80% of age predicted maximum heart rate reserve Current METSs:: 3.0 Target Heart Rate:: 91-119 Current RPE:: 11-12 Maximum Excercise HR:: 78 Resting Blood Pressure: 112/46 Maximum Exercise Blood Pressure: 120/52 EKG Type: Sinus bradycardia to sinus rhythm wiht rare PVC noted. - Outcomes & Goals Goals:: Verbalizes understanding of THR, RPE & goal METS by session 6, Documents in home exercise log/reports 30 min aerobic 5 day/wk by DC, Demonstrates accurate pulse taking by DC - Intervention & Plan Exercise Program Goals: Instruct on personal THR & RPE, Instruct on MET level & personal MET goal, Show patient to take own pulse /validate performance until accurate, Instruct on home exercise - 30-day Reassessments 30 day Reassessments:: Progressing - Physical Activity Home Exercise Physical Activity - Home Exercise: Safe Exercise, Warm-up, Self-monitoring, Cool-Down, Home Exercise > 30 min Daily, Sitting Time <3 hours/daily - Outcomes & Goals Outcomes/Goals: Demonstrates correct Warm-up/exercise Cool-Down (S3) if = 2.5 METs, Verbalizes symptoms of exercise intolerance by Session 3 (S3), Demonstrate safe equipment use (S3) & follows exercise prescrition (6) - Intervention & Plan Plan/Intervention: Instruct warm-up & cool-down if exercising at > 2 METs, Instruct on symptoms of exercise intolerance & actions to take, Instruct & monitor on saf, Assess intial functional capacity & safety risk - 30-day Reassessments 30 day Reassessments:: Progressing Nutrition - 30-Day Assessment - Program Goals Nutrition Program Goals: LDL <100 optimal. 100 - 129 Near optimal. 130 - 159 Borderline High. 160 - 189 High. Total Cholesterol <200 desirable. 200 - 239 Borderline High. >/= 240 High. HDL < 40 Low >/=60 High. Triglycerides <150 desirable. <199 optimal. VlDL 5 - 40. HgbA1C <7%. BMI <25 Patient has diagnosis of Hyperlipidemia (ICD E78)?: Yes - Visit Date of Assessment:: 01/11/20 Session #:: 6 - Cholesterol/Lipids Determine presence & major risk factors that modify LDL goal: Cigarette smoking, Hypertension or hypertensive medication, Low HDL cholesterol <40 mg/dL*, Family history of premature CHD in Male < 55 years: female <65 yearsFa, Age men > 45 years; women >/= 55 years Outcomes/Goals: Pt IDs own risk factors & lifestyle modifications by Session 10, Verbalizes symptoms of angina & response by session 3., Pt independently manages Intervention/Plan: Instruct on personal lipid levels & lipid goals/NCEP guidelines, Instruct on cholesterol Referral to dietitian:: Yes 30-day Reassessments:: Progressing - Diabetes (Other Core Measures) Diabetes Type: Not Applicable - Weight Mgt (Other Care) Not Applicable: Yes Height: 5 ft 7 in Weight:: 181 lb BMI: 28.3 Diagnosis Overweight/Obesity BMI> 30% ICD-10 E66: No Diagnosis High BMI/Morbid Obesity BMI> 35% ICD-10 Z68: No Outcomes/Goals: Pt sets, maintains & shows weight loss goal & trend during rehab Intervention/Plan: Instruct on ideal BMI & set weight loss goal w/patient, Assist pt to ID & incorporate diet changes for weight loss by S9, Encourage goal of using 250-300dcal per session for weight loss 30 day Reassessments:: Progressing - Healthy Eating Habits Outcomes/Goals:: Consume diet rich in vegs,fruits,whole grain/high fiber,fish,lean meat, Limit sat/trans fats,cholesterol & added salts & sugars Intervention/Plan:: Assess current eating habits 30-day Reassessments:: Progressing - Education Gave educational materials for:: Healthy eating Medical- 30-Day Assessment - Visit Date of Eval: 01/11/20 Session #:: 6 - Medication Compliance Preventative Medication(s):: Aspirin, Clopidogrel/P2Y12 inhibit, Statin/lipid, Beta humaira H/O mental health issues: depression, anxiety, or addiction?: No Doesn?t believe in the benefits of treatment?: No Believes medications are unnecessary or harmful?: No Has a concern about medication side effects?: No Expresses concern over the cost of medications?: No Outcomes/Goals: Verbalizes medications,desired effect & common side effects @ DC, Pt self-reports following medication regimen, Keeps card in wallet w/medications listed by DC Interventions/plans: Instruct on medication effects & side effects, Review medication list w/patient every two weeks, Instruct importance of taking meds as ordered & assist problem solving 30-day Reassessments:: Progressing - Tobacco Use Tobacco Use: Non-smoker - Hypertension Hypertension Diagnosis:: Hypertension ICD-10 I10 Resting Blood Pressure:: 112/46 [place] [employer] Hypertension Guidelines: [place] [employer] Hypertension Guidelines. Normal BP Less than 120/80. Elevated BP 120/80. Hypertension Stage 1: BP 130-139/80-89. Hypertesnion Stage 2: BP 140 or higher/90 or higher. Hypertension Crisis: BP higher than 180/120 Peak Exercise Blood Pressure:: 120/52 Outcomes/Goals: Able to verbalize/achieve optimal blood pressure <130/80, Incorporates diet changes & exercise for blood pressure control by DC Interventions/plan: Instruct on optimal blood pressure, hypertension & medications, Instruct on effects of sodium, alcohol, stress, exercise &hypertension 30 day Reassessments:: Progressing - Tobacco Cessation Referral Smoking Cessation Referral:: No Individual Education/Counseling:: No Education Schedule Given:: Yes Psychosocial - 30-Day Assess - VIsit Date of Eval: 01/11/20 Session #:: 6 Not Applicable: Yes History of previous Mental disease:: No - Target Goals Target Goals: Assess presence or absence of depression. Using a valid screening tool, maximizes coping skills. Positive support system - Psychosocial Test Tool Used:: [employer] QOL Cardiac, PHQ-9 Questionnaire phq-9 Severity: Severity. 1-4 Minimal Depression. 5-9 Mild Depression. 10-14 Moderate Depression. 15-19 Moderately Sever Depression. 20-27 Severe Depres laxmi. Rule: - Referral to Behavioral Health PS - Interventions: Yes Attend Stress Management Classes, No Referral to Behavioral Health if PHQ-9 score >9:, No Referral to [facility], No Referral to Physician if PHQ-9 if score is 5-9: - Outcomes/Goals: See list Psychosocial Outcomes/Goals:: ID's personal stressors & 2 strategies to manage stress by discharge - Intervention/Plan: See List Interventions/Plan:: Assess stressors,coping strategies & signs of derpression on admission, Instruct/assist pt to develop coping & personal stress Mgt strategies, Instruct patient to recognize signs & symptoms of depression, Instruct patient to recog - 30-day Reassessments: 30 day Reassessments:: Progressing Patient Health Questionnaire 30-Day Re-eval Assessment 1. Little interest or pleasure in doing things: Several days 2. Feeling down, depressed, or hopeless: Several days 3. Trouble falling or staying asleep, or sleeping too much: Not at all 4. Feeling tired or having little energy: Several days 5. Poor appetite or overeating: Not at all 6. Feeling bad about yourself -- or that you are a failure or have let yourself or your family down: Not at all 7. Trouble concentrating on things, such as reading the newspaper or watching television: Not at all 8. Moving or speaking so slowly that other people could have noticed. Or the opposite - being so fidgety or restless that you have been moving around a lot more than usual: Not at all 9. Thoughts that you would be better off , or of hurting yourself in some way: Several days How difficult have these problems made it for you to do your work, take care of things at home, or get along with other people?: Very difficult - emotional depression related to his loss of vision and reliance on others for support. Total Score: 4 Self-Efficacy 30-Day Re-eval Assessment We would like to know how confident you are in doing certain activities. Please select your confidence level for:: Select your confidence level for the following using the scale 1-10 where 1 is not at all confident and 10 is totally confident. Your score is the average of all 6 responses. Fatigue: How confident are you that you can keep the fatigue caused by your disease from interfering with the things you want to do? Select Number: 8 Physical Discomfort or Pain: How confident are you that you can keep the physical discomfort or pain of your disease from interfering with the things you want to do? Select Number: 8 Emotional Distress: How confident are you that you can keep the emotional distress caused by your disease from interfering with the things you want to do? Select Number: 9 Other Symptoms or Health Problems: How confident are you that you can keep other symptoms or health problems from interfering with the things you want to do? Select Number: 2 Different Tasks and Activities: How confident are you that you can do the different tasks and activities needed to manage your health condition so as to reduce your need to see a doctor? Select Number: 8 Medication: How confident are you that you can do things other than just taking medication to reduce how much your illness affects your everyday life? Select Number: 9 Total Score:: 7
[2020-01-11 09:45] VITALS: BP 112/46; BP 120/52; BMI 28.3
== END 2020-01-23 23:59 ==
LOC: CR 11:30
PROVIDERS: PCP Student in an Organized Health Care Education/Training Program; Referring Provider Internal Medicine Cardiovascular Disease; Visit Provider Internal Medicine Cardiovascular Disease
DX: I25.10 Atherosclerotic heart disease of native coronary artery without angina pectoris (principal); Z95.5 Presence of coronary angioplasty implant and graft
CPT/HCPCS: 93798

== ENCOUNTER 2020-02-21 11:30 | Outpatient (RCR) | payer MEDICARE, OTHER, SELFPAY ==
[2019-11-18 10:24] VITALS: BMI 28.5
[2020-01-11 09:45] VITALS: BMI 28.3
[2020-01-24 00:17] VITALS: BP 112/46; BP 120/52
--- NOTE | 2020-02-07 14:02 | CR.ITP_ITS ---
Exercise - 60-day Assessment - Visit Date of Eval: 02/07/20 Session #:: 17 Comments:: PATIENT'S CR PROGRAM INTERUPPTED BY COVID-19 CLOSURE BETWEEN OCTOBER 25, 2019 AND December. - Physician Prescribed Exercise Modalities: Treadmill, Airdyne, NuStep Frequency: 3x/week for 12 weeks [36 sessions] Current METSs:: 4.0 Target Heart Rate:: 91-119 Current RPE:: 13-14 Maximum Excercise HR:: 86 Resting Blood Pressure: 108/54 Maximum Exercise Blood Pressure: 132/50 EKG Type: SINUS BRADYCARDIA TO SINUS RHYTHM WITHOUT ECTOPY. - Outcomes & Goals Goals:: Verbalizes understanding of THR, RPE & goal METS by session 6, Documents in home exercise log/reports 30 min aerobic 5 day/wk by DC, Demonstrates accurate pulse taking by DC - Intervention & Plan Exercise Program Goals: Instruct on personal THR & RPE, Instruct on MET level & personal MET goal, Show patient to take own pulse /validate performance until accurate, Instruct on home exercise - 30-day Reassessments 30 day Reassessments:: Progressing - Physical Activity Home Exercise Physical Activity - Home Exercise: Safe Exercise, Warm-up, Self-monitoring, Cool-Down, Home Exercise > 30 min Daily, Sitting Time <3 hours/daily - Outcomes & Goals Outcomes/Goals: Demonstrates correct Warm-up/exercise Cool-Down (S3) if = 2.5 METs, Verbalizes symptoms of exercise intolerance by Session 3 (S3), Demonstrate safe equipment use (S3) & follows exercise prescrition (6) - Intervention & Plan Plan/Intervention: Instruct warm-up & cool-down if exercising at > 2 METs, Instruct on symptoms of exercise intolerance & actions to take, Instruct & monitor on saf, Assess intial functional capacity & safety risk - 30-day Reassessments 30 day Reassessments:: Progressing Nutrition - 60-Day Assessment - Program Goals Nutrition Program Goals: LDL <100 optimal. 100 - 129 Near optimal. 130 - 159 Borderline High. 160 - 189 High. Total Cholesterol <200 desirable. 200 - 239 Borderline High. >/= 240 High. HDL < 40 Low >/=60 High. Triglycerides <150 desirable. <199 optimal. VlDL 5 - 40. HgbA1C <7%. BMI <25 Patient has diagnosis of Hyperlipidemia (ICD E78)?: Yes - Visit Date of Assessment:: 02/07/20 Session #:: 18 - Cholesterol/Lipids Determine presence & major risk factors that modify LDL goal: Hypertension or hypertensive medication, Age men > 45 years; women >/= 55 years Outcomes/Goals: Pt IDs own risk factors & lifestyle modifications by Session 10, Verbalizes symptoms of angina & response by session 3., Pt independently manages Intervention/Plan: Instruct on personal lipid levels & lipid goals/NCEP guidelines, Instruct on cholesterol Referral to dietitian:: No - PATIENT'S INSURANCE DOES NOT COVER SERVICE 30-day Reassessments:: Progressing - Diabetes (Other Core Measures) Diabetes Type: Not Applicable - Weight Mgt (Other Care) Not Applicable: Yes Height: 5 ft 7 in Weight:: 185 lb BMI: 29.0 Diagnosis Overweight/Obesity BMI> 30% ICD-10 E66: No Diagnosis High BMI/Morbid Obesity BMI> 35% ICD-10 Z68: No Outcomes/Goals: Pt sets, maintains & shows weight loss goal & trend during rehab Intervention/Plan: Instruct on ideal BMI & set weight loss goal w/patient, Assist pt to ID & incorporate diet changes for weight loss by S9 30 day Reassessments:: Progressing - Healthy Eating Habits Outcomes/Goals:: Consume diet rich in vegs,fruits,whole grain/high fiber,fish,lean meat, Limit sat/trans fats,cholesterol & added salts & sugars Intervention/Plan:: Assess current eating habits 30-day Reassessments:: Progressing - Education Gave educational materials for:: Healthy eating Medical- 60-Day Assessment - Visit Date of Eval: 02/07/20 Session #:: 18 - Medication Compliance Preventative Medication(s):: Aspirin, Clopidogrel/P2Y12 inhibit, Statin/lipid, Beta humaira H/O mental health issues: depression, anxiety, or addiction?: No Doesn?t believe in the benefits of treatment?: No Believes medications are unnecessary or harmful?: No Has a concern about medication side effects?: No Expresses concern over the cost of medications?: No Outcomes/Goals: Verbalizes medications,desired effect & common side effects @ DC, Pt self-reports following medication regimen, Keeps card in wallet w/medications listed by DC Interventions/plans: Instruct on medication effects & side effects, Review medication list w/patient every two weeks, Instruct importance of taking meds as ordered & assist problem solving 30-day Reassessments:: Progressing - Tobacco Use Tobacco Use: Non-smoker - Hypertension Hypertension Diagnosis:: Hypertension ICD-10 I10 Resting Blood Pressure:: 108/54 [place] [employer] Hypertension Guidelines: [place] [employer] Hypertension Guidelines. Normal BP Less than 120/80. Elevated BP 120/80. Hypertension Stage 1: BP 130-139/80-89. Hypertesnion Stage 2: BP 140 or higher/90 or higher. Hypertension Crisis: BP higher than 180/120 Peak Exercise Blood Pressure:: 132/50 Outcomes/Goals: Able to verbalize/achieve optimal blood pressure <130/80, Incorporates diet changes & exercise for blood pressure control by DC Interventions/plan: Instruct on optimal blood pressure, hypertension & medications, Instruct on effects of sodium, alcohol, stress, exercise &hypertension 30 day Reassessments:: Progressing - Tobacco Cessation Referral Smoking Cessation Referral:: No Individual Education/Counseling:: No Education Schedule Given:: Yes Psychosocial - 60-Day Assess - VIsit Date of Eval: 02/07/20 Session #:: 18 Not Applicable: No History of previous Mental disease:: Yes History of Emotional Disorders: Depression - BILATERAL MACULAR DEGENERATION/LOSS OF VISION DIFFICULTY W/ADLs. Self-reported stressors: Medical/Health, Recent Illness - Target Goals Target Goals: Assess presence or absence of depression. Using a valid screening tool, maximizes coping skills. Positive support system - Psychosocial Test Tool Used:: [employer] QOL Cardiac, PHQ-9 Questionnaire phq-9 Severity: Severity. 1-4 Minimal Depression. 5-9 Mild Depression. 10-14 Moderate Depression. 15-19 Moderately Sever Depression. 20-27 Severe Depression. Rule: - Referral to Behavioral Health PS - Interventions: Yes Referral to Behavioral Health if PHQ-9 score >9:, Yes Referral to Physician if PHQ-9 if score is 5-9:, Yes Attend Stress Management Classes - Outcomes/Goals: See list Psychosocial Outcomes/Goals:: ID's personal stressors & 2 strategies to manage stress by discharge - Intervention/Plan: See List Interventions/Plan:: Assess stressors,coping strategies & signs of derpression on admission, Instruct/assist pt to develop coping & personal stress Mgt strategies, Refer to Behavioral Health if appropriate, Refer to Physician if appropriate, Instruct patient to recognize signs & symptoms of depression, Instruct patient to recog - 30-day Reassessments: 30 day Reassessments:: Not Met Patient Health Questionnaire 60-Day Re-eval Assessment 1. Little interest or pleasure in doing things: Several days 2. Feeling down, depressed, or hopeless: Several days 3. Trouble falling or staying asleep, or sleeping too much: Not at all 4. Feeling tired or having little energy: Several days 5. Poor appetite or overeating: Not at all 6. Feeling bad about yourself -- or that you are a failure or have let yourself or your family down: Several days 7. Trouble concentrating on things, such as reading the newspaper or watching television: Not at all 8. Moving or speaking so slowly that other people could have noticed. Or the opposite - being so fidgety or restless that you have been moving around a lot more than usual: Not at all 9. 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 Please select your confidence level for:: Select your confidence level for the following using the scale 1-10 where 1 is not at all confident and 10 is totally confident. Your score is the average of all 6 responses. Fatigue: How confident are you that you can keep the fatigue caused by your disease from interfering with the things you want to do? Select Number: 8 Physical Discomfort or Pain: How confident are you that you can keep the physical discomfort or pain of your disease from interfering with the things you want to do? Select Number: 8 Emotional Distress: How confident are you that you can keep the emotional distress caused by your disease from interfering with the things you want to do? Select Number: 9 Other Symptoms or Health Problems: How confident are you that you can keep other symptoms or health problems from interfering with the things you want to do? Select Number: 2 Different Tasks and Activities: How confident are you that you can do the different tasks and activities needed to manage your health condition so as to reduce your need to see a doctor? Select Number: 8 Medication: How confident are you that you can do things other than just taking medication to reduce how much your illness affects your everyday life? Select Number: 9 Total Score:: 7
[2020-02-07 14:12] VITALS: BP 108/54; BP 132/50; BMI 29.0
== END 2020-02-22 23:59 ==
LOC: CR 11:30
PROVIDERS: PCP Student in an Organized Health Care Education/Training Program; Referring Provider Internal Medicine Cardiovascular Disease; Visit Provider Internal Medicine Cardiovascular Disease
DX: I25.10 Atherosclerotic heart disease of native coronary artery without angina pectoris (principal); Z95.5 Presence of coronary angioplasty implant and graft
CPT/HCPCS: 93798

== ENCOUNTER 2020-03-24 11:30 | Outpatient (RCR) | payer MEDICARE, OTHER, SELFPAY ==
[2019-11-18 10:24] VITALS: BMI 28.5
[2020-02-07 14:12] VITALS: BMI 29.0
[2020-02-23 00:18] VITALS: BP 108/54; BP 132/50
--- NOTE | 2020-03-09 06:27 | PCM.CR.ITP ---
Exercise - 90-day Assessment - Visit Date of Eval: 03/09/20 Session #:: 29 - Physician Prescribed Exercise Modalities: Treadmill, Airdyne, NuStep Frequency: 3x/week for 12 weeks [36 sessions] Intensity: 60-80% of age predicted maximum heart rate reserve Current METSs:: 4.5 Target Heart Rate:: 91-119 Current RPE:: 13-15 Maximum Excercise HR:: 82 Resting Blood Pressure: 100/46 Maximum Exercise Blood Pressure: 112/50 EKG Type: Sinus rhythm without ectopy. - Outcomes & Goals Goals:: Verbalizes understanding of THR, RPE & goal METS by session 6, Documents in home exercise log/reports 30 min aerobic 5 day/wk by DC, Demonstrates accurate pulse taking by DC - Intervention & Plan Exercise Program Goals: Instruct on personal THR & RPE, Instruct on MET level & personal MET goal, Show patient to take own pulse /validate performance until accurate, Instruct on home exercise - 30-day Reassessments 30 day Reassessments:: Met - Physical Activity Home Exercise Physical Activity - Home Exercise: Safe Exercise, Warm-up, Self-monitoring, Cool-Down, Home Exercise > 30 min Daily, Sitting Time <3 hours/daily - Outcomes & Goals Outcomes/Goals: Demonstrates correct Warm-up/exercise Cool-Down (S3) if = 2.5 METs, Verbalizes symptoms of exercise intolerance by Session 3 (S3), Demonstrate safe equipment use (S3) & follows exercise prescrition (6) - Intervention & Plan Plan/Intervention: Instruct warm-up & cool-down if exercising at > 2 METs, Instruct on symptoms of exercise intolerance & actions to take, Instruct & monitor on saf, Assess intial functional capacity & safety risk - 30-day Reassessments 30 day Reassessments:: Met Nutrition - 90-Day Assessment - Program Goals Nutrition Program Goals: LDL <100 optimal. 100 - 129 Near optimal. 130 - 159 Borderline High. 160 - 189 High. Total Cholesterol <200 desirable. 200 - 239 Borderline High. >/= 240 High. HDL < 40 Low >/=60 High. Triglycerides <150 desirable. <199 optimal. VlDL 5 - 40. HgbA1C <7%. BMI <25 Patient has diagnosis of Hyperlipidemia (ICD E78)?: Yes - Visit Date of Assessment:: 03/09/20 Session #:: 29 - Cholesterol/Lipids Determine presence & major risk factors that modify LDL goal: Hypertension or hypertensive medication, Age men > 45 years; women >/= 55 years Outcomes/Goals: Pt IDs own risk factors & lifestyle modifications by Session 10, Verbalizes symptoms of angina & response by session 3., Pt independently manages Intervention/Plan: Instruct on personal lipid levels & lipid goals/NCEP guidelines, Instruct on cholesterol Referral to dietitian:: No 30-day Reassessments:: Met - Diabetes (Other Core Measures) Diabetes Type: Not Applicable - Weight Mgt (Other Care) Not Applicable: Yes Height: 5 ft 7 in Weight:: 185 lb 8 oz BMI: 29.0 Diagnosis Overweight/Obesity BMI> 30% ICD-10 E66: No Diagnosis High BMI/Morbid Obesity BMI> 35% ICD-10 Z68: No Outcomes/Goals: Pt sets, maintains & shows weight loss goal & trend during rehab Intervention/Plan: Instruct on ideal BMI & set weight loss goal w/patient, Encourage goal of using 250-300dcal per session for weight loss 30 day Reassessments:: Progressing - Healthy Eating Habits Will attend diet classes:: Yes Outcomes/Goals:: Consume diet rich in vegs,fruits,whole grain/high fiber,fish,lean meat, Limit sat/trans fats,cholesterol & added salts & sugars Intervention/Plan:: Assess current eating habits 30-day Reassessments:: Progressing - Education Gave educational materials for:: Healthy eating Medical- 90-Day Assessment - Visit Date of Eval: 03/09/20 Session #:: 29 - Medication Compliance Preventative Medication(s):: Aspirin, Clopidogrel/P2Y12 inhibit, Statin/lipid, Beta humaira H/O mental health issues: depression, anxiety, or addiction?: No Doesn?t believe in the benefits of treatment?: No Believes medications are unnecessary or harmful?: No Has a concern about medication side effects?: No Expresses concern over the cost of medications?: No Outcomes/Goals: Verbalizes medications,desired effect & common side effects @ DC, Pt self-reports following medication regimen, Keeps card in wallet w/medications listed by DC Interventions/plans: Instruct on medication effects & side effects, Review medication list w/patient every two weeks, Instruct importance of taking meds as ordered & assist problem solving 30-day Reassessments:: Progressing - Tobacco Use Tobacco Use: Non-smoker - Hypertension Hypertension Diagnosis:: Hypertension ICD-10 I10 Resting Blood Pressure:: 100/46 [place] [employer] Hypertension Guidelines: [place] [employer] Hypertension Guidelines. Normal BP Less than 120/80. Elevated BP 120/80. Hypertension Stage 1: BP 130-139/80-89. Hypertesnion Stage 2: BP 140 or higher/90 or higher. Hypertension Crisis: BP higher than 180/120 Peak Exercise Blood Pressure:: 112/50 Outcomes/Goals: Able to verbalize/achieve optimal blood pressure <130/80, Incorporates diet changes & exercise for blood pressure control by DC Interventions/plan: Instruct on optimal blood pressure, hypertension & medications, Instruct on effects of sodium, alcohol, stress, exercise &hypertension 30 day Reassessments:: Met - Tobacco Cessation Referral Smoking Cessation Referral:: No Individual Education/Counseling:: No Education Schedule Given:: Yes Psychosocial - 90-Day Assess - VIsit Date of Eval: 03/09/20 Session #:: 29 Not Applicable: Yes History of previous Mental disease:: No - Target Goals Target Goals: Assess presence or absence of depression. Using a valid screening tool, maximizes coping skills. Positive support system - Psychosocial Test Tool Used:: [employer] QOL Cardiac, PHQ-9 Questionnaire phq-9 Severity: Severity. 1-4 Minimal Depression. 5-9 Mild Depression. 10-14 Moderate Depression. 15-19 Moderately Sever Depression. 20-27 Severe Depression. Rule: - Referral to Behavioral Health PS - Interventions: Yes Attend Stress Management Classes, No Referral to Behavioral Health if PHQ-9 score >9:, No Referral to [facility], No Referral to Physician if PHQ-9 if score is 5-9: - Outcomes/Goals: See list Psychosocial Outcomes/Goals:: ID's personal stressors & 2 strategies to manage stress by discharge - Intervention/Plan: See List Interventions/Plan:: Assess stressors,coping strategies & signs of derpression on admission, Instruct/assist pt to develop coping & personal stress Mgt strategies, Instruct patient to recognize signs & symptoms of depression, Instruct patient to recog - 30-day Reassessments: 30 day Reassessments:: Met Patient Health Questionnaire 90-Day Re-eval Assessment 1. Little interest or pleasure in doing things: Several days 2. Feeling down, depressed, or hopeless: Several days 3. Trouble falling or staying asleep, or sleeping too much: Not at all 4. Feeling tired or having little energy: Not at all 5. Poor appetite or overeating: Not at all 6. Feeling bad about yourself -- or that you are a failure or have let yourself or your family down: Several days 7. Trouble concentrating on things, such as reading the newspaper or watching television: Not at all 8. Moving or speaking so slowly that other people could have noticed. Or the opposite - being so fidgety or restless that you have been moving around a lot more than usual: Not at all 9. Thoughts that you would be better off , or of hurting yourself in some way: Not at all How difficult have these problems made it for you to do your work, take care of things at home, or get along with other people?: Very difficult - more related to his vision impairment Total Score: 3 Self-Efficacy 90-Day Re-eval Assessment We would like to know how confident you are in doing certain activities. Please select your confidence level for:: Select your confidence level for the following using the scale 1-10 where 1 is not at all confident and 10 is totally confident. Your score is the average of all 6 responses. Fatigue: How confident are you that you can keep the fatigue caused by your disease from interfering with the things you want to do? Select Number: 8 Physical Discomfort or Pain: How confident are you that you can keep the physical discomfort or pain of your disease from interfering with the things you want to do? Select Number: 8 Emotional Distress: How confident are you that you can keep the emotional distress caused by your disease from interfering with the things you want to do? Select Number: 9 Other Symptoms or Health Problems: How confident are you that you can keep other symptoms or health problems from interfering with the things you want to do? Select Number: 4 Different Tasks and Activities: How confident are you that you can do the different tasks and activities needed to manage your health condition so as to reduce your need to see a doctor? Select Number: 9 Medication: How confident are you that you can do things other than just taking medication to reduce how much your illness affects your everyday life? Select Number: 9 Total Score:: 7
[2020-03-09 06:33] VITALS: BP 100/46; BP 112/50; BMI 29.0
== END 2020-03-24 23:59 ==
LOC: CR 11:30
PROVIDERS: PCP Student in an Organized Health Care Education/Training Program; Referring Provider Internal Medicine Cardiovascular Disease; Visit Provider Internal Medicine Cardiovascular Disease
DX: I25.10 Atherosclerotic heart disease of native coronary artery without angina pectoris (principal); Z95.5 Presence of coronary angioplasty implant and graft
CPT/HCPCS: 93798

== ENCOUNTER 2020-03-27 07:37 | Outpatient (RCR) | payer MEDICARE, OTHER, SELFPAY ==
[2020-03-09 06:33] VITALS: BMI 29.0
[2020-03-16 09:13] VITALS: BMI 28.8
[2020-03-25 00:19] VITALS: BP 100/46; BP 112/50
== END 2020-04-24 23:59 ==
LOC: CR 07:37
PROVIDERS: PCP Student in an Organized Health Care Education/Training Program; Referring Provider Internal Medicine Cardiovascular Disease; Visit Provider Internal Medicine Cardiovascular Disease
DX: I25.10 Atherosclerotic heart disease of native coronary artery without angina pectoris (principal); Z95.5 Presence of coronary angioplasty implant and graft
CPT/HCPCS: 93798

== ENCOUNTER → 2020-03-31 10:00 | Outpatient (CLI) | payer MEDICARE, OTHER, SELFPAY ==
[2020-03-09 06:33] VITALS: BMI 29.0
[2020-03-16 09:13] VITALS: BMI 28.8
--- NOTE | 2020-03-31 10:00 | ECHOD_ITS ---
Reason For Study: s/p [place] Procedure This was a 2D Doppler, Color Flow transthoracic echocardiogram. Exam performed in department. Left Ventricle Mild eccentric left ventricular hypertrophy. The estimated ejection fraction is 65 %. Stage 1 diastolic dysfunction. No regional wall motion abnormalities noted. Right Ventricle Normal size and thickness. Normal systolic function. Atria Normal left atrium. Normal right atrium. Normal atrial septum. Mitral Valve The mitral valve is structurally normal. No prolapse or stenosis seen. Trivial mitral valve insufficiency. Tricuspid Valve Normal tricuspid valve. Trivial tricuspid valve insufficiency. Right ventricular systolic pressure estimated to be 31 mmHg. Aortic Valve Trisinus/trileaflet aortic valve. Trivial aortic valve insufficiency. Pulmonic Valve Normal pulmonic valve. Trivial pulmonic valve insufficiency. Great Vessels Normal aortic root. Normal arch. Normal inferior vena cava. Inferior vena cava collapse with sniff. Pericardium/Pleural No pericardial effusion. MMode/2D Measurements & Calculations LVIDd: 3.9 cm IVSd: 1.6 cm LA dimension: 4.4 cm LVIDs: 2.9 cm LVPWd: 1.2 cm FS: 23.8 % LAV(MOD-bp): 52.3 ml LA A4 area: 18.2 cm2 RA A4 area: 16.4 cm2 LAV(MOD-bp) Indexed: 26.7 ml/m2 LAV(MOD-sp2): 57.5 ml LAV(MOD-sp4): 47.0 ml Time Measurements MV dec time: 0.40 sec Doppler Measurements & Calculations MV E max galen: 68.7 cm/sec Lat Peak E' Galen: 9.0 cm/sec Med Peak E' Galen: 4.7 cm/sec MV A max galen: 49.1 cm/sec E/E' lat: 7.6 E/E' med: 14.6 MV E/A: 1.4 MV V2 max: 85.4 cm/sec MV P1/2t max galen: 84.8 cm/sec Ao V2 max: 131.4 cm/sec MV max P.9 mmHg MV P1/2t: 77.3 msec Ao max P.9 mmHg MV V2 mean: 39.6 cm/sec MV dec slope: 321.2 cm/sec2 Ao V2 mean: 86.7 cm/sec MV mean P.76 mmHg MVA(P1/2t): 2.8 cm2 Ao mean P.5 mmHg MV V2 VTI: 31.2 cm Ao V2 VTI: 31.9 cm AI max galen: 348.8 cm/sec LV V1 max: 79.3 cm/sec PA V2 max: 81.9 cm/sec AI max P.7 mmHg LV V1 max P.5 mmHg LV V1 mean P.2 mmHg AI dec slope: 117.1 cm/sec2 LV V1 mean: 51.8 cm/sec AI P1/2t: 872.6 msec LV V1 VTI: 21.1 cm TR max galen: 242.8 cm/sec TR max P.6 mmHg Interpretation Summary Mild eccentric left ventricular hypertrophy. The estimated ejection fraction is 65 %. Stage 1 diastolic dysfunction. Trivial mitral valve insufficiency. Trivial tricuspid valve insufficiency. Right ventricular systolic pressure estimated to be 31 mmHg. Trivial aortic valve insufficiency. Compared to echo report dated 04/13/2019, no appreciable changes noted. Ordering Physician: Florencio Ramires Referring Physician: Robel Onofre Performed By: Mp Orozco RCS
== END ==
PROVIDERS: PCP Student in an Organized Health Care Education/Training Program; Referring Provider Internal Medicine Cardiovascular Disease; Visit Provider Internal Medicine Cardiovascular Disease
DX: I25.2 Old myocardial infarction (principal)
CPT/HCPCS: 93306

== ENCOUNTER 2021-07-17 17:59 | Outpatient (CLI) | payer MEDICARE, OTHER, SELFPAY ==
[2020-03-09 06:33] VITALS: BMI 29.0
[2021-07-17] MEDS: 0.9% Saline Lock 10 ML Syringe IV (17:58)
[2021-07-17 18:02] VITALS: BP 130/63; PULSE 63; RESP 16; TEMP 36.8; O2SAT 97; BMI 28.8
[2021-07-17 18:33] VITALS: BP 133/60; PULSE 58; RESP 16; TEMP 36.6; O2SAT 97
[2021-07-17 19:24] VITALS: BP 138/68; PULSE 62; RESP 16; TEMP 36.6; O2SAT 98
== END 2021-07-17 19:32 | disposition home or self-care (01) ==
LOC: MS3OUT 18:00 → MS3 18:01
PROVIDERS: PCP Student in an Organized Health Care Education/Training Program; Referring Provider Nurse Practitioner Adult Health; Visit Provider Nurse Practitioner Adult Health
DX: Z23 Encounter for immunization (principal); U07.1 COVID-19
CPT/HCPCS: M0245; Q0245

== ENCOUNTER → 2022-01-01 | Outpatient (CLI) | payer MEDICARE, OTHER, SELFPAY ==
[2020-03-09 06:33] VITALS: BMI 29.0
--- NOTE | 2022-01-01 07:55 | CT_ITS ---
STUDY: CT ABDOMEN AND PELVIS WITH CONTRAST REASON FOR EXAM: Male, 81 years old. LOCALIZED ENLARGED LYMPH NODES. Prior abdominal aortic aneurysm repair. RADIATION DOSAGE (If Supplied By Facility): CTDIvol = ( 15.69 ) mGy, DLP = ( 1061.51 ) mGycm TECHNIQUE: Transaxial images were obtained from the dome of the diaphragm to the symphysis pubis without oral contrast. IV 100mL Isovue-300 was administered. Sagittal and coronal images were reconstructed. Individualized dose optimization techniques were used for this CT. COMPARISON: Comparison is made with prior study 06/03/2017. FINDINGS: The visualized lung bases are unremarkable. Coronary artery calcifications. There is decreased attenuation of the liver consistent with steatosis. There are multiple gallstones. Borderline splenomegaly. Normal pancreas. Normal bilateral adrenal glands. Multiple cysts are seen in the right kidney. The largest cyst measures 3.1 cm. Stable focal atrophy in the lower pole of the left kidney most likely secondary to prior infarction. 2 mm calculus is seen in the lower pole calyx of the left kidney. There is a small hiatal hernia. Normal small intestine. There are scattered colonic diverticula consistent with diverticulosis. The appendix is visualized and appears normal. Aortic stent graft is seen within the distal abdominal aorta. The distal limbs are seen in the common iliac arteries bilaterally. Once again, there is aneurysmal dilatation of the distal abdominal aorta with a transverse dimension of 4.1 cm. Normal inferior vena cava. Normal retroperitoneum. Normal urinary bladder. There is a small umbilical hernia containing fat. Small bilateral inguinal hernias slightly worse on the right side containing nondilated small bowel loops. Prior laminectomy and fusion at the L4-L5 level. The patient is status post bilateral total hip replacement. CT/Abdomen/Pelvis WITH Contrast IMPRESSION: Diffuse fatty infiltration of the liver. Multiple small gallstones. Status post endoluminal stent grafting of the abdominal aortic aneurysm. This is unchanged. Bilateral inguinal hernias worse on the right side. Electronically Signed: Galindo Raymond MD at 9:41 EDT ,
[2022-01-01 08:10] LABS: CREATININE FINGERSTICK 1.3 mg/dL (0.70-1.30)
== END | disposition home or self-care (01) ==
LOC: CT 07:53
PROVIDERS: PCP Student in an Organized Health Care Education/Training Program; Visit Provider Student in an Organized Health Care Education/Training Program
DX: R59.0 Localized enlarged lymph nodes (principal); R10.31 Right lower quadrant pain
CPT/HCPCS: 74177; Q9967

== ENCOUNTER 2022-06-13 16:27 | Inpatient (IN) | payer MEDICARE, OTHER, SELFPAY ==
[2020-03-09 06:33] VITALS: BMI 29.0
[2022-06-13] VITALS (8 sets, daily range): BP systolic 125–158; BP diastolic 70–93; PULSE 72–89; RESP 18–20; TEMP 36.2–37.3; O2SAT 93–98; BMI 28.3; BMI 28.4
[2022-06-13] MEDS: Ondansetron 4 MG/2 ML Vial IV (17:27)
[2022-06-13] MEDS: 0.9% Normal Saline 1,000 ML 1000 ML IV (17:27)
[2022-06-13 17:31] LABS: Absolute Lymphocyte Count 1.16 X10^3/uL (0.83-4.51); Absolute Neutrophil Count 14.4 X10^3/uL (2.0-7.7); Basophil# 0.02 X10^3/uL; Basophil% 0.1 % (0-1); Hematocrit 42.6 % (40-54); Hemoglobin 14.5 g/dL (13.0-16.5); Lymphocyte # 1.16 X10^3/ul (0.83-4.51); Lymphocyte % 6.9 % (19-41); Mean Corpuscular Hgb 29.7 pg (27.0-32.0); Mean Corpuscular Volume 87.1 fL (80-94); Mean Platelet Vol. 9.3 fl (6.2-12.0); Monocyte# 1.22 X10^3/uL; Monocyte% 7.2 % (0-10); NRBC Flagged by Analyzer 0 % (0-5); Neutrophil # 14.38 X10^3/uL (2.7-7.7); Neutrophil % 85.3 % (47-70); Platelet Count 205 K/mm3 (150-450); RBC Distribution Width CV 13.9 % (11.6-14.6); RBC Distribution Width SD 44.2 fl (35.1-43.9); Red Blood Count 4.89 M/mm3 (4.6-6.2); White Blood Count 16.9 K/mm3 (4.4-11.0)
--- NOTE | 2022-06-13 17:35 | EDS_ITS ---
HPI HPI - GI History of Present Illness Chief Complaint: GI Bleed Informant: patient Narrative Narrative: Patient is an 82-year-old male with history of BPH, coronary artery disease, hyperlipidemia and hypertension presenting for vomiting of coffee-ground emesis after hernia surgery. Patient had elective bilateral inguinal hernia repair yesterday with Dr. Mendez at [facility]. Patient has had some difficulty urinating overnight and feels like he is having decreased urination. He has a sensation of incomplete emptying. He is also had multiple episodes of vomiting. This afternoon had started to turn into coffee-ground material. No bright red blood was reported. He has not had a bowel movement since the surgery. He denies any significant abdominal pain and only has mild pain at his surgical site. Did have issues with postop urinary retention with prior surgeries. He is never reacted like this with pain medication or anesthetic before. Has some mild epigastric abdominal discomfort. Denies any chest pain or difficulty breathing. Had chicken noodle soup and Oreo cheesecake last night after her surgery. No report of any fevers or chills. Patient has been holding his aspirin and his Plavix in association with his surgery. He had his other medications this morning. 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 Rheumatic fever Spinal stenosis Syncope Home Medications finasteride 5 mg tablet 5 mg PO DAILY prostate 02/23/18 [History Last Taken 06/13/22] aspirin 81 mg tablet,delayed release (Adult Aspirin Regimen) 81 mg PO DAILY blood thinner 08/11/18 [History Last Taken 06/04/22] tamsulosin 0.4 mg capsule 0.4 mg PO QHS prostate 10/27/19 [History Last Taken 06/12/22] atenolol 50 mg tablet 50 mg PO DAILY BLOOD PRESSURE 11/18/19 [History Last Taken 06/13/22] clopidogrel 75 mg tablet 75 mg PO DAILY BLOOD THINNER #90 tabs 02/07/20 [Rx Last Taken 06/04/22] simvastatin 20 mg tablet 20 mg PO QHS cholesterol #90 tabs 11/10/20 [Rx Last Taken 06/12/22] lansoprazole 15 mg capsule,delayed release 15 mg PO QHS GERD 07/17/21 [History Last Taken 06/10/22] amlodipine 5 mg tablet 5 mg PO DAILY BLOOD PRESSURE 06/13/22 [History Last Taken 06/13/22] cholecalciferol (vitamin D3) 50 mcg (2,000 unit) capsule (Vitamin D3) 50 mcg PO DAILY SUPPLEMENT 06/13/22 [History Last Taken 06/04/22] cyanocobalamin (vitamin B-12) 1,000 mcg tablet 1,000 mcg PO DAILY SUPPLEMENT 06/13/22 [History Last Taken 06/04/22] hydrochlorothiazide 12.5 mg capsule 12.5 mg PO DAILY 06/13/22 [History Last Taken 06/13/22] lisinopril 5 mg tablet 5 mg PO DAILY BLOOD PRESSURE 06/13/22 [History Last Taken 06/13/22] oxycodone-acetaminophen 5 mg-325 mg tablet 1 tab PO Q6H PRN Pain 06/13/22 [History Last Taken 06/13/22] Allergy/AdvReac Type Severity Reaction Status Date / Time No Known Allergies Allergy Verified 06/13/22 16:29 Family History Mother CAD (coronary artery disease) Brother CAD (coronary artery disease) CABG Brother CAD (coronary artery disease) Surgical History H/O bilateral hip replacements H/O coronary artery bypass surgery History of endovascular stent graft for abdominal aortic aneurysm (AAA) History of left heart catheterization History of tonsillectomy 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) Stented coronary artery (10/28/19) Social History Smoking Status: Former smoker how long ago did patient quit smokin years ago alcohol intake: never substance use type: does not use caffeine: Yes Type: coffee Number of servings: 4 ROS ROS ED Constitutional Constitutional ED: Denies chills or fever(s) ENT ENT ED: Denies rhinorrhea or sore throat Cardiovascular Cardiovascular: Denies chest pain or palpitations Respiratory/Chest Respiratory/Chest: Denies cough Gastrointestinal Gastrointestinal: Reports abdominal pain, nausea and vomiting; Denies constipation, diarrhea or melena Genitourinary Genitourinary ED: Denies dysuria or hematuria Musculoskeletal Musculoskeletal: Denies arthralgias or myalgias Integumentary Denies rash Neurologic Neurologic: Denies headache(s) or weakness Psychiatric Psychiatric: Denies anxiety Hematologic/Lymphatic Hematologic/Lymphatic: Denies easy bleeding or easy bruising EXAM Physical Exam Const Vital Signs: 06/13/22 16:28 06/13/22 17:31 06/13/22 18:36 Temperature 97.1 F L 99.1 F Temperature Source Temporal Temporal Pulse Rate 83 72 76 Respiratory Rate 20 H 18 18 Blood Pressure 125/70 H 137/76 H 158/76 H Blood Pressure Mean 88 96 103 Pulse Ox 98 97 96 Oxygen Delivery Method Room Air Room Air Room Air 06/13/22 19:28 06/13/22 19:28 Temperature 99.1 F Temperature Source Temporal Pulse Rate 80 80 Respiratory Rate 20 H 20 H Blood Pressure 152/70 H 152/70 H Blood Pressure Mean 97 97 Pulse Ox 95 95 Oxygen Delivery Method Room Air Room Air Positive well nourished and well developed General Appearance ED: well developed and NAD; Negative for pallor HEENT Reports dry mucous membranes normocephalic and atraumatic Mouth ED: Yes dry mucous membranes Mouth: dry mucous membranes Eyes PERRL and EOMs intact bilaterally Neck supple and no JVD Chest Wall Chest Narrative: No chest wall crepitus Resp normal respiratory effort and clear to auscultation bilaterally Cardio regular rate, regular rhythm and no murmurs GI non-tender and non-distended GI Narrative: Dressed port sites of the lower abdomen. No active bleeding or drainage appreciated. Auscultation: normoactive bowel sounds Palpation: soft; Negative for guarding or rigid Extremity full ROM General Extremety ED: Negative for edema or tenderness General Extremity: Negative for edema Neuro CN's II-XII intact bilaterally, moves all extremities, no sensory deficits noted and gait normal Sensorium / Orientation: alert, oriented to person, oriented to place and oriented to time Psych mental status grossly normal and thought process normal Skin no wounds General Skin Exam: Negative for pallor MDM MDM MDM Narrative Medical decision making narrative: Patient is evaluated for nausea and vomiting has progressed throughout the day today and is now turned into coffee-ground. Patient has emesis in the room that is coffee-ground in appearance and is occult positive for blood. He is hemodynamically stable in the ER and is actually mildly hypertensive. Patient has a stable hemoglobin of 14.5 however he does have a acute leukocytosis of 16.9. Creatinine is elevated from his baseline of 1.45. Patient is given IV fluids. He also has an elevated BUN of 44. Urinalysis is positive for ketones but not consistent with infection. Patient does have urinary retention and a Padron catheter is placed and he has over 1 L out. Not clear if his PEPE is secondary to acute urinary retention or dehydration from his vomiting. Given his PEPE, hematemesis and postop status will admit the patient. CT abdomen pelvis obtained which is negative for any acute process. Patient's lower abdomen is soft and I do not see any signs of acute surgical site infection or dehiscence. Case is discussed with Dr. Heard, GI as well as surgery on-call, Dr. Valdivia. Patient is admitted to the medicine service. Patient is given IV Protonix in the emergency room. Lab Data Attestation: I reviewed the patient's lab results. Labs: Laboratory Results - last 24 hr 06/13/22 06/13/22 06/13/22 16:55 16:55 17:30 WBC 16.9 H RBC 4.89 Hgb 14.5 Hct 42.6 MCV 87.1 MCH 29.7 MCHC 34.0 RDW Std Deviation 44.2 H RDW Coeff of Zoë 13.9 Plt Count 205 MPV 9.3 Immature Gran % (Auto) 0.500 Neut % (Auto) 85.3 H Lymph % (Auto) 6.9 L [place] % (Auto) 7.2 Eos % (Auto) 0.0 Baso % (Auto) 0.1 Absolute Neuts (auto) 14.4 H Absolute Lymphs (auto) 1.16 Nucleated RBC % 0 Sodium 136 Potassium 4.5 Chloride 98 Carbon Dioxide 29.0 Anion Gap 9 BUN 44 H Creatinine 1.45 H Estim Creat Clear Calc 36.09 Est GFR (MDRD) Af Amer 60 Est GFR (MDRD) Non-Af 49 L BUN/Creatinine Ratio 30.3 H Glucose 178 H Calcium 9.7 Total Bilirubin 1.00 AST 23 ALT 18 Alkaline Phosphatase 88 Total Protein 7.4 Albumin 3.8 Globulin 3.6 Albumin/Globulin Ratio 1.1 Lipase 46 L Urine Color Yellow Urine Clarity Clear Urine pH 8.0 Ur Specific [place] 1.010 Urine Protein 30 H Urine Glucose (UA) 50 H Urine Ketones 15 H Urine Occult Blood Negative Urine Nitrite Negative Urine Bilirubin Negative Urine Urobilinogen Normal Ur Leukocyte Esterase Negative Urine RBC 0 SEEN Urine WBC 0 SEEN Ur Squamous Epith Cells 0-5 SEEN Urine Bacteria 1+ Urine Mucus 0 SEEN Radiography Chest X-Ray - ED: 2 View, Read by ED Physician, Read by Radiologist and No Acute Disease Diagnostic Testing: Clinical Impression(s) from Imaging Studies Abdomen/Pelvis CT 06/13/22 18:10 IMPRESSION: 1. Resolution of the bowel seen within the right inguinal canal on the previous study. There is no gas in the distal left inguinal canal/upper scrotum of uncertain etiology. This is incompletely visualized on the current exam. 2. Stable aortobiiliac stent. 3. No other interval change. Electronically Signed: Galindo Henry DO at 18:49 EDT Reading Location ID and State: [facility] / [place] Tel [phone], Service support , Chest X-Ray 06/13/22 18:18 IMPRESSION: No acute cardiopulmonary disease or major interval change. Electronically Signed: Galindo Henry DO at 18:50 EDT Reading Location ID and State: [facility] / [place] Tel [phone], Service support , Discharge Plan Dx/Rx/DC Orders Clinical Impression: Upper GI bleed, PEPE (acute kidney injury), Acute urinary retention Disposition Disposition: Acute Care Hospital [facility] Discharge Date/Time: 06/13/22 20:01
[2022-06-13 17:43] LABS: Mucous, Urine 0 SEEN /hpf (<or=2+); Red Blood Cells-Urine 0 SEEN /hpf (0-5); White Blood Cells 0 SEEN /hpf (0-5)
[2022-06-13 17:57] LABS: Glucose, Dipstick 50 mg/dl (Normal); Ketone-Dipstick 15 mg/dl (Negative); Leukocyte Esterase-Dipstick Negative /ul (Negative); Nitrite-Dipstick Negative (Negative); Occult Blood-Urine Negative /ul (Negative); Protein-Dipstick 30 mg/dl (Negative); Urine Bilirubin Dipstick Negative (Negative); Urine Urobilinogen Normal (Normal)
[2022-06-13 18:05] LABS: ALB/GLOB Ratio 1.1 RATIO (0.9-2.4); AST(SGOT) 23 U/L (15-37); Alanine Aminotransfer ALT/SGPT 18 U/L (16-61); Albumin, Serum 3.8 g/dL (3.2-5.0); Alkaline Phosphatase 88 U/L (45-117); Anion Gap 9 (5-15); BUN 44 mg/dL (7-18); BUN/Creat Ratio 30.3 RATIO (10-20); Calcium,Total 9.7 mg/dL (8.5-10.1); Chloride 98 mmol/L (98-107); Creatinine, Serum 1.45 mg/dL (0.70-1.30); EST Glomerular Filtration Rate 49 mL/min (>60); Est Glom Filt Rate - Afr Amer 60 mL/min (>60); Estimated Creatinine Clearance 36.09 ml/min; Globulin 3.6 g/dL (2.2-4.2); Glucose 178 mg/dL (74-106); Lipase 46 U/L (73-393); Potassium 4.5 mmol/L (3.5-5.1); Protein, Total 7.4 g/dL (6.4-8.2); Sodium Level 136 mmol/L (136-145)
[2022-06-13 18:06] LABS: Color, Urine Yellow (Yellow); Urine Clarity Clear (Clear)
--- NOTE | 2022-06-13 18:10 | CT_ITS ---
STUDY: CT ABDOMEN AND PELVIS WITH CONTRAST REASON FOR EXAM: Male, 82 years old. Vomiting. RADIATION DOSAGE (If Supplied By Facility): CTDIvol = ( 17.60 ) mGy, DLP = ( 1210.47 ) mGycm TECHNIQUE: Transaxial images were obtained from the dome of the diaphragm to the symphysis pubis without oral contrast. IV 100mL Isovue-370 was administered. Sagittal and coronal images were reconstructed. Individualized dose optimization techniques were used for this CT. COMPARISON: 01/01/2022. FINDINGS: The visualized lung bases are unremarkable. The visualized portions of the heart are within normal limits. Dilated fluid-filled distal esophagus with retrocardiac hiatal hernia. Normal liver. Multiple gallstones without acute cholecystitis or biliary ductal dilatation. Normal spleen. Normal pancreas. Normal bilateral adrenal glands. Stable right renal cysts. No hydronephrosis. Normal right ureter. Small left cortical cyst. In addition there is an area of marked cortical loss with calcifications and fat lower pole which appears stable. Normal left ureter. Hiatal hernia. The stomach is well-distended with fluid. Normal small intestine. Colonic diverticulosis without acute inflammatory change. The appendix is visualized and appears normal. Aortobiiliac stent graft within an thrombosed abdominal aortic aneurysm. There is question of minimal leakage of contrast posterior to the left iliac stent Normal inferior vena cava. Normal retroperitoneum. Limited visualization of pelvic structures due to the scatter artifact from bilateral hips. There is a GALARZA catheter within urinary bladder. The prostate is enlarged with central calcifications. No visualized pelvic lymphadenopathy. No free air or free fluid is seen within the abdominal cavity. Bilateral inguinal hernia is. There is gas within the left upper scrotum/distal inguinal canal. The scrotum is incompletely imaged. There are diffuse degenerative changes of the visualized lumbar spine. CT/Abdomen/Pelvis W IV Cont ONLY IMPRESSION: 1. Resolution of the bowel seen within the right inguinal canal on the previous study. There is no gas in the distal left inguinal canal/upper scrotum of uncertain etiology. This is incompletely visualized on the current exam. 2. Stable aortobiiliac stent. 3. No other interval change. Electronically Signed: Galindo Henry DO at 18:49 EDT Reading Location ID and State: [address] [place] [address] Tel [phone], Service support ,
[2022-06-13 18:18] LABS: Bacteria 1+ /hpf (None Seen); Squamous Epithelial Cells - UA 0-5 SEEN /hpf (0-5)
--- NOTE | 2022-06-13 18:18 | RAD_ITS ---
STUDY: X-RAY CHEST REASON FOR EXAM: Male, 82 years old. Hernia surgery yesterday. Coffee ground emesis today. TECHNIQUE: PA and lateral views of the chest. COMPARISON: Chest, 10/27/2019 FINDINGS: The lungs are clear and expanded. There is no demonstrated pleural abnormality. Sternal cerclage wires and vascular clips are present from a prior sternotomy and coronary artery bypass graft procedure (CABG). The heart is normal in size Normal mediastinum and abhay. Normal visualized pulmonary arteries. Normal visualized aortic arch and descending thoracic aorta. There are diffuse degenerative changes of the visualized thoracic spine. There is degenerative osteoarthritis of the bilateral shoulders. There is no demonstrated abnormality of the visualized soft tissue structures of the upper abdomen. RAD/Chest PA and Lateral IMPRESSION: No acute cardiopulmonary disease or major interval change. Electronically Signed: Galindo Henry DO at 18:50 EDT ,
--- NOTE | 2022-06-13 19:16 | CON.PCM_ITS ---
Assessment & Plan Assessment/Plan (1) Upper GI bleed: PLAN: The differential diagnosis does include a Maegan-Feldman tear, erosive esophagitis, underlying peptic ulcer disease, medication induced gastroparesis, ileus. At this time see stable and regarding his vital sign and his blood count recommend to check H&H's every 6 hours. Hold all NSAIDs and antiplatelet medicines. Recommend Protonix 40 mg IV twice daily. I will continue to follow him while he is in the hospital. Thank you very much for allowing me to participate in the care of this patient. HPI Consult Data Date of Consult: 06/13/22 HPI Narrative Reason for Consultation: Upper GI bleed HPI Narrative: EZE EVANS, is a 82 M who presents as an outpatient with coffee-ground emesis. He has a history of BPH, coronary artery disease, hyperlipidemia and hypertension presenting for vomiting of coffee-ground emesis after hernia surgery.? Patient had elective bilateral inguinal hernia repair yesterday with Dr. Mendez at [facility] [place].? Patient has had some difficulty urinating overnight and feels like he is having decreased urination.? He has a sensation of incomplete emptying.? He is also had multiple episodes of vomiting.? This afternoon had started to turn into coffee-ground material.? No bright red blood was reported.? He has not had a bowel movement since the surgery.? He denies any significant abdominal pain and only has mild pain at his surgical site.? He did have issues with postop urinary retention with prior surgeries.? He is never reacted like this with pain medication or anesthetic before.? Has some mild epigastric abdominal discomfort.? Denies any chest pain or difficulty breathing.? Had chicken noodle soup and Oreo cheesecake last night after her surgery.? No report of any fevers or chills.? Patient has been holding his aspirin and his Plavix in association with his surgery.? He had his other medications this morning. He has not taken his blood thinners in the past 48 hours. His white blood cell count is 16.9 and his hemoglobin is 16. His BUN to crea tinine ratio is elevated. [facility] Medical History (Updated 06/13/22 @ 19:[address] 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 Rheumatic fever Spinal stenosis Syncope Home Medications finasteride 5 mg tablet 5 mg PO DAILY prostate 02/23/18 [History Last Taken 06/13/22] aspirin 81 mg tablet,delayed release (Adult Aspirin Regimen) 81 mg PO DAILY blood thinner 08/11/18 [History Last Taken 06/04/22] tamsulosin 0.4 mg capsule 0.4 mg PO QHS prostate 10/27/19 [History Last Taken 06/12/22] atenolol 50 mg tablet 50 mg PO DAILY BLOOD PRESSURE 11/18/19 [History Last Taken 06/13/22] clopidogrel 75 mg tablet 75 mg PO DAILY BLOOD THINNER #90 tabs 02/07/20 [Rx Last Taken 06/04/22] simvastatin 20 mg tablet 20 mg PO QHS cholesterol #90 tabs 11/10/20 [Rx Last Taken 06/12/22] lansoprazole 15 mg capsule,delayed release 15 mg PO QHS GERD 07/17/21 [History Last Taken 06/10/22] amlodipine 5 mg tablet 5 mg PO DAILY BLOOD PRESSURE 06/13/22 [History Last Taken 06/13/22] cholecalciferol (vitamin D3) 50 mcg (2,000 unit) capsule (Vitamin D3) 50 mcg PO DAILY SUPPLEMENT 06/13/22 [History Last Taken 06/04/22] cyanocobalamin (vitamin B-12) 1,000 mcg tablet 1,000 mcg PO DAILY SUPPLEMENT 06/13/22 [History Last Taken 06/04/22] hydrochlorothiazide 12.5 mg capsule 12.5 mg PO DAILY 06/13/22 [History Last Taken 06/13/22] lisinopril 5 mg tablet 5 mg PO DAILY BLOOD PRESSURE 06/13/22 [History Last Taken 06/13/22] oxycodone-acetaminophen 5 mg-325 mg tablet 1 tab PO Q6H PRN Pain 06/13/22 [History Last Taken 06/13/22] Allergy/AdvReac Type Severity Reaction Status Date / Time No Known Allergies Allergy Verified 06/13/22 16:29 Family History Mother CAD (coronary artery disease) Brother CAD (coronary artery disease) CABG Brother CAD (coronary artery disease) Surgical History H/O bilateral hip replacements H/O coronary artery bypass surgery History of endovascular stent graft for abdominal aortic aneurysm (AAA) History of left heart catheterization History of tonsillectomy 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) Stented coronary artery (10/28/19) Social History Smoking Status: Former smoker how long ago did patient quit smokin years ago alcohol intake: never substance use type: does not use caffeine: Yes Type: coffee Number of servings: 4 ROS Review of Systems ROS Unobtainable: other Constitutional Constitutional: Denies fatigue, fever(s), poor appetite, weight gain or weight loss ENT HEENT: Denies mouth lesions Cardiovascular Cardiovascular: Denies abdominal bloating, abdominal edema or abdominal pain Respiratory/Chest Respiratory/Chest: Denies change in mental status, change in phlegm color, chest congestion or chest tightness Gastrointestinal Gastrointestinal: Denies belching, bloating, change in bowel habits, change in stool character, chewing difficulty, coffee ground emesis, constipation, cramping, diarrhea, dyspepsia, dysphagia, early satiety, excessive flatus, fecal incontinence, heartburn, hematemesis, hematochezia, hemorrhoids, loose stools, melena, nausea, odynophagia, rectal bleeding, tenesmus, vomiting or weight changes Genitourinary Genitourinary: Denies abdominal discomfort, burning urination or itching Musculoskeletal Musculoskeletal: Reports as per HPI; Denies muscle weakness or myalgias Integumentary Integumentary: Denies jaundice Neurologic Neurologic: Denies lack of coordination or weakness Psychiatric Psychiatric: Denies confusion, depression, memory loss, mood swings, paranoia or suicidal ideation Endocrine Endocrinology: Denies systems reviewed and no addt'l complaints, except as documented Hematologic/Lymphatic Hematologic/Lymphatic: Denies anemia, easy bleeding, easy bruising or lymphadenopathy Allergic/Immunologic Allergic/Immunologic: Denies systems reviewed and no addt'l complaints, except as documented Physical Exam Const alert General Appearance: cooperative Orientation / Consciousness: oriented to person HEENT hearing grossly normal bilaterally Head and Scalp: normal to inspection Face and Sinus: face symmetric Nose: external nose normal Mouth: oral and palatal mucosa normal Eyes conjunctivae normal General Eye: normal appearance of both eyes Neck full ROM General: normal visual inspection Lymph Lymphatic: no lymphadenopathy noted Chest inspection of chest normal and palpation of chest normal Chest: symmetrical chest wall rise Resp normal respiratory effort Effort and Inspection: able to speak in complete sentences Cardio regular rate GI non-distended Percussion: normal to percussion Rectal Exam: deferred Neuro Speech: speech normal Gait (Neuro): normal gait Lab / Micro Data Result Diagrams: 06/13/22 16:55 06/13/22 16:55 Labs: Laboratory Results - last 24 hr 06/13/22 16:55: WBC 16.9 H, RBC 4.89, Hgb 14.5, Hct 42.6, MCV 87.1, MCH 29.7, MCHC 34.0, RDW Std Deviation 44.2 H, RDW Coeff of Zoë 13.9, Plt Count 205, MPV 9.3, Immature Gran % (Auto) 0.500, Neut % (Auto) 85.3 H, Lymph % (Auto) 6.9 L, Harper % (Auto) 7.2, Eos % (Auto) 0.0, Baso % (Auto) 0.1, Absolute Neuts (auto) 14.4 H, Absolute Lymphs (auto) 1.16, Nucleated RBC % 0 06/13/22 16:55: Sodium 136, Potassium 4.5, Chloride 98, Carbon Dioxide 29.0, Anion Gap 9, BUN 44 H, Creatinine 1.45 H, Estim Creat Clear Calc 36.09, Est GFR (MDRD) Af Amer 60, Est GFR (MDRD) Non-Af 49 L, BUN/Creatinine Ratio 30.3 H, Glucose 178 H, Calcium 9.7, Total Bilirubin 1.00, AST 23, ALT 18, Alkaline Ph osphatase 88, Total Protein 7.4, Albumin 3.8, Globulin 3.6, Albumin/Globulin Ratio 1.1, Lipase 46 L 06/13/22 17:30: Urine Color Yellow, Urine Clarity Clear, Urine pH 8.0, Ur Specific [place] 1.010, Urine Protein 30 H, Urine Glucose (UA) 50 H, Urine Ketones 15 H, Urine Occult Blood Negative, Urine Nitrite Negative, Urine Bilirubin Negative, Urine Urobilinogen Normal, Ur Leukocyte Esterase Negative, Urine RBC 0 SEEN, Urine WBC 0 SEEN, Ur Squamous Epith Cells 0-5 SEEN, Urine Bacteria 1+, Urine Mucus 0 SEEN Micro: Microbiology 06/13/22 17:30 Vomitus Gastric Occult Blood - Final Occult Blood Positive Radiology Impression Abdomen/Pelvis CT 06/13/22 18:10 IMPRESSION: 1. Resolution of the bowel seen within the right inguinal canal on the previous study. There is no gas in the distal left inguinal canal/upper scrotum of uncertain etiology. This is incompletely visualized on the current exam. 2. Stable aortobiiliac stent. 3. No other interval change. Electronically Signed: Galindo Henry DO at 18:49 EDT Reading Location ID and State: [employer] Tel [phone], Service support , Chest X-Ray 06/13/22 18:18 IMPRESSION: No acute cardiopulmonary disease or major interval change. Electronically Signed: Galindo Henry DO at 18:50 EDT Reading Location ID and State: [employer] Tel [phone], Service support , Charges/Coding Visit Charges Inpatient E&M: 97902 Init Hosp L2
--- NOTE | 2022-06-13 20:13 | HP.PCM.HOS_ITS ---
HPI - General General Date of Admission: 06/13/22 Date of Service: 06/13/22 Chief Complaint: Nausea vomiting coffee-ground vomiting started today. 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 Patient said he is having coffee-ground/black color vomiting started after he woke up today. As per daughter, patient was vomiting every 1/2 hour. Patient had elective laparoscopic bilateral inguinal hernia repair by Dr. Mendez in [facility]. Patient had difficulty urination but he voided spontaneously last night prior to discharge from the ER. In the morning was having some difficulty urinating and felt like incomplete emptying. Patient denies hematochezia or melena. Patient did not had bowel movement after surgery. Patient does not have bilateral inguinal pain but mild soreness. Patient has history of BPH and is on Flomax and finasteride. He gets urine retention after anesthesia during previous surgery. In ED, patient vitals were in normal range. No tachycardia. H&H 14.5/42.6. Platelet count 205,000. Patient is further admitted. 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 Rheumatic fever Spinal stenosis Syncope Home Medications finasteride 5 mg tablet 5 mg PO DAILY prostate 02/23/18 [History Last Taken 06/13/22] aspirin 81 mg tablet,delayed release (Adult Aspirin Regimen) 81 mg PO DAILY blood thinner 08/11/18 [History Last Taken 06/04/22] tamsulosin 0.4 mg capsule 0.4 mg PO QHS prostate 10/27/19 [History Last Taken 06/12/22] atenolol 50 mg tablet 50 mg PO DAILY BLOOD PRESSURE 11/18/19 [History Last Taken 06/13/22] clopidogrel 75 mg tablet 75 mg PO DAILY BLOOD THINNER #90 tabs 02/07/20 [Rx Last Taken 06/04/22] simvastatin 20 mg tablet 20 mg PO QHS cholesterol #90 tabs 11/10/20 [Rx Last Taken 06/12/22] lansoprazole 15 mg capsule,delayed release 15 mg PO QHS GERD 07/17/21 [History Last Taken 06/10/22] amlodipine 5 mg tablet 5 mg PO DAILY BLOOD PRESSURE 06/13/22 [History Last Taken 06/13/22] cholecalciferol (vitamin D3) 50 mcg (2,000 unit) capsule (Vitamin D3) 50 mcg PO DAILY SUPPLEMENT 06/13/22 [History Last Taken 06/04/22] cyanocobalamin (vitamin B-12) 1,000 mcg tablet 1,000 mcg PO DAILY SUPPLEMENT 06/13/22 [History Last Taken 06/04/22] hydrochlorothiazide 12.5 mg capsule 12.5 mg PO DAILY 06/13/22 [History Last Taken 06/13/22] lisinopril 5 mg tablet 5 mg PO DAILY BLOOD PRESSURE 06/13/22 [History Last Taken 06/13/22] oxycodone-acetaminophen 5 mg-325 mg tablet 1 tab PO Q6H PRN Pain 06/13/22 [History Last Taken 06/13/22] Allergy/AdvReac Type Severity Reaction Status Date / Time No Known Allergies Allergy Verified 06/13/22 16:29 Family History Mother CAD (coronary artery disease) Brother CAD (coronary artery disease) CABG Brother CAD (coronary artery disease) Surgical History H/O bilateral hip replacements H/O coronary artery bypass surgery History of endovascular stent graft for abdominal aortic aneurysm (AAA) History of left heart catheterization History of tonsillectomy 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) Stented coronary artery (10/28/19) Social History Smoking Status: Former smoker how long ago did patient quit smokin years ago alcohol intake: never substance use type: does not use caffeine: Yes Type: coffee Number of servings: 4 ROS ROS Narrative Constitutional: Reports fatigue and weakness. No fever HEENT: Bilateral impaired hearing. Reports systems reviewed and no addt'l complaints, except as documented Respiratory/Chest: Denies chest pain, shortness of breath at rest or with exertion Gastrointestinal: No abdominal pain or distention. Rest as described in HPI Genitourinary: Urine retention as described in HPI. Denies burning urination. Musculoskeletal: Reports mild joint pain and limited range of motion, degenerative arthritis Spine/back: 2 times lumbar spinal surgery. Neurologic: Denies seizure-like activity. No focal weakness. skin: No ulcer. No rash Endocrinology: Reports systems reviewed and no addt'l complaints, except as documented Hematologic/Lymphatic: Reports systems reviewed and no addt'l complaints, except as documented Rest 14 ROS are negative except as mentioned in HPI Vital Signs Vital Signs Vital Signs: 06/13/22 16:28 06/13/22 17:31 06/13/22 18:36 Temperature 97.1 F L 99.1 F Temperature Source Temporal Temporal Pulse Rate 83 72 76 Respiratory Rate 20 H 18 18 Blood Pressure 125/70 H 137/76 H 158/76 H Blood Pressure Mean 88 96 103 Pulse Ox 98 97 96 Oxygen Delivery Method Room Air Room Air Room Air 06/13/22 19:28 06/13/22 19:28 Temperature 99.1 F Temperature Source Temporal Pulse Rate 80 80 Respiratory Rate 20 H 20 H Blood Pressure 152/70 H 152/70 H Blood Pressure Mean 97 97 Pulse Ox 95 95 Oxygen Delivery Method Room Air Room Air Weight Weight: 181 lb Body Mass Index (BMI) 28.3 Physical Exam Narrative Physical exam General: Alert, Oriented x3, Cooperative HEENT: Atraumatic, PERRLA, EOMI, Normocephalic Oral: Oral mucosa dry. No Gingival or Mucosal Lesions/ Ulcerations Neck: Supple, No JVD, Negative Carotid Bruits Lungs: Air entry diminished in bilateral lung bases. No crepitation/rhonchi Cardiovascular: Regular rate, Regular Rhythm, Normal S1, Normal S2, holosystolic murmur over cardiac apex with radiation to axilla. Abdomen: Bowel Sounds Present, Soft, Non Tender, Non-Distended. Laparoscopic scars are dry. Mild tenderness over left groin at hernia repair surgery. : Padron catheter draining 200 mL clear urine. No renal angle tenderness. No suprapubic tenderness. Extremities: No edema, Capillary Refill Less than 3 Seconds Skin: No rashes, No breakdown Musculoskeletal/spine: No Tenderness to Palpation of Joints or Extremities. Deep surgical scar in the lumbar spine. No paraspinal muscle tenderness. Neurological: Cranial nerves II-XII grossly intact, DTR 2+/4 and Symmetrical, Neuro grossly intact Psych/Mental Status: Normal Affect, Appropriate. Results Lab / Micro Data Result Diagrams: 06/13/22 16:55 06/13/22 16:55 Labs: Laboratory Results - last 24 hr 06/13/22 16:55: WBC 16.9 H, RBC 4.89, Hgb 14.5, Hct 42.6, MCV 87.1, MCH 29.7, MCHC 34.0, RDW Std Deviation 44.2 H, RDW Coeff of Zoë 13.9, Plt Count 205, MPV 9.3, Immature Gran % (Auto) 0.500, Neut % (Auto) 85.3 H, Lymph % (Auto) 6.9 L, [place] % (Auto) 7.2, Eos % (Auto) 0.0, Baso % (Auto) 0.1, Absolute Neuts (auto) 14.4 H, Absolute Lymphs (auto) 1.16, Nucleated RBC % 0 06/13/22 16:55: Sodium 136, Potassium 4.5, Chloride 98, Carbon Dioxide 29.0, Anion Gap 9, BUN 44 H, Creatinine 1.45 H, Estim Creat Clear Calc 36.09, Est GFR (MDRD) Af Amer 60, Est GFR (MDRD) Non-Af 49 L, BUN/Creatinine Ratio 30.3 H, Glucose 178 H, Calcium 9.7, Total Bilirubin 1.00, AST 23, ALT 18, Alkaline Phosphatase 88, Total Protein 7.4, Albumin 3.8, Globulin 3.6, Albumin/Globulin Ratio 1.1, Lipase 46 L 06/13/22 17:30: Urine Color Yellow, Urine Clarity Clear, Urine pH 8.0, Ur Specific [place] 1.010, Urine Protein 30 H, Urine Glucose (UA) 50 H, Urine Ketones 15 H, Urine Occult Blood Negative, Urine Nitrite Negative, Urine Bilirubin Negative, Urine Urobilinogen Normal, Ur Leukocyte Esterase Negative, Urine RBC 0 SEEN, Urine WBC 0 SEEN, Ur Squamous Epith Cells 0-5 SEEN, Urine B acteria 1+, Urine Mucus 0 SEEN Micro: Microbiology 06/13/22 17:30 Vomitus Gastric Occult Blood - Final Occult Blood Positive Radiology Impression Abdomen/Pelvis CT 06/13/22 18:10 IMPRESSION: 1. Resolution of the bowel seen within the right inguinal canal on the previous study. There is no gas in the distal left inguinal canal/upper scrotum of uncertain etiology. This is incompletely visualized on the current exam. 2. Stable aortobiiliac stent. 3. No other interval change. Electronically Signed: Galindo Henry DO at 18:49 EDT Reading Location ID and State: [facility] / [place] Tel [phone], Service support , Chest X-Ray 06/13/22 18:18 IMPRESSION: No acute cardiopulmonary disease or major interval change. Electronically Signed: Galindo Henry DO at 18:50 EDT , Assessment & Plan Assessment/Plan (1) Upper GI bleed: PLAN: Plan This 82-year-old gentleman is being admitted for evaluation of upper GI bleed. 1. Intractable nausea vomiting and upper GI bleed, Possible differential diagnosis Maegan-Feldman tear, erosive esophagitis possible peptic ulcer disease, antiplatelet/anticoagulant agent: Patient is being admitted on the monitored bed. IV fluid normal saline. Hemodynamically blood pressure and heart rate are in normal range. Monitor intake and output. H&H every 6 hourly. H&H 14.5/42 percent. Platelet count 205,000. Patient has leukocytosis probably reactive from surgery yesterday. CBC and BMP tomorrow 2. Bilateral laparoscopic inguinal hernia repair: This was done by Dr. Mendez. Patient has mild soreness of her left inguinal hernia repair. No external surgical incision or scar. 3. BPH with history of recurrent postop urine retention: Patient had postop urinary retention and is having clear urine in Padron catheter. Continue Flomax and Proscar. 4. Coronary artery disease status post CABG, stent, non-STEMI last October 2019: Patient had 2 drug-eluting stent at that time in saphenous vein graft to OM1. Patient follows in cardiology office with Dr. Donald and John cui, Last visit September 2021. Last echo from March 2020 shows mild concentric LVH, EF 65%, stage I diastolic dysfunction, trivial MR, trivial TR, trivial AI and RVSP 31 mmHg. Overall suggestive of mild HFpEF. No acute issues of chest pain pressure or shortness of breath. Patient on metoprolol continued. 5. Acute kidney injury with CKD stage IIIa: Patient had last creatinine 1.02 in October 2019. Today, BUN/creatinine 44/1.45, BUN/creatinine ratio 30s to 1. Hold lisinopril, HCTZ. UA WBC 0, 1+ bacteria, nitrite and LE negative. SG n ormal. Mild proteinuria. IV fluid normal saline. Monitor kidney function, urine output. Patient has Padron catheter as mentioned above 6. Other multiple comorbidities include hypertension, dyslipidemia and history of endovascular stent graft for AAA: Home medication reconciliation done. Living will/advanced directive/end of life care: Patient does have living will or advanced directive. His daughter near the bedside is power of commonwealth attorney for health. Patient's has dementia. After discussion of benefits/risks procedures involved with full code, DNR CC arrest and DNR CC, the patient and her daughter opted for full code. Patient does want artificial life support including intubation, tube feed, ventilator and/chest compression, central venous catheter, vasopressor and DC shock if needed Total time spent in [id number] encounter in discussion of advanced directive 16 minutes. Microbiology Past 72 Hours 06/13/22 17:30 Vomitus Gastric Occult Blood - Final Occult Blood Positive Laboratory Results 06/13/22 16:55: WBC 16.9 H, RBC 4.89, Hgb 14.5, Hct 42.6, MCV 87.1, MCH 29.7, MCHC 34.0, RDW Std Deviation 44.2 H, RDW Coeff of Zoë 13.9, Plt Count 205, MPV 9.3, Immature Gran % (Auto) 0.500, Neut % (Auto) 85.3 H, Lymph % (Auto) 6.9 L, [place] % (Auto) 7.2, Eos % (Auto) 0.0, Baso % (Auto) 0.1, Absolute Neuts (auto) 14.4 H, Absolute Lymphs (auto) 1.16, Nucleated RBC % 0 06/13/22 16:55: Sodium 136, Potassium 4.5, Chloride 98, Carbon Dioxide 29.0, Anion Gap 9, BUN 44 H, Creatinine 1.45 H, Estim Creat Clear Calc 36.09, Est GFR (MDRD) Af Amer 60, Est GFR (MDRD) Non-Af 49 L, BUN/Creatinine Ratio 30.3 H, Glucose 178 H, Calcium 9.7, Total Bilirubin 1.00, AST 23, ALT 18, Alkaline Phosphatase 88, Total Protein 7.4, Albumin 3.8, Globulin 3.6, Albumin/Globulin Ratio 1.1, Lipase 46 L 06/13/22 16:55: Magnesium Pending 06/13/22 17:30: Urine Color Yellow, Urine Clarity Clear, Urine pH 8.0, Ur Specific [place] 1.010, Urine Protein 30 H, Urine Glucose (UA) 50 H, Urine Ketones 15 H, Urine Occult Blood Negative, Urine Nitrite Negative, Urine Bilirubin Negative, Urine Urobilinogen Normal, Ur Leukocyte Esterase Negative, Urine RBC 0 SEEN, Urine WBC 0 SEEN, Ur Squamous Epith Cells 0-5 SEEN, Urine Bact eria 1+, Urine Mucus 0 SEEN 1. NSTEMI/CAD s/p stent and CABG/HTN/RVX-20-tukb-old male with a history of a CABG presents with chest pain for 2 days.? He underwent a cardiac cath because of a rising troponin and was found to have triple-vessel disease.? He had 2 drug-eluting stents placed in the saphenous vein graft to OM1.? He has done well after the procedure, denies any chest pain.? He was started on Imdur and hydrochlorothiazide for his blood pressure as well as continued on his aspirin, Plavix, lisinopril, atenolol, and Norvasc.? He will also be continued on his simvastatin.? He will need to follow-up with his primary care doctor in 3 to 5 days and with cardiology in 1 to 2 weeks. Echocardiogram from 03/31/2020: Interpretation Summary Mild eccentric left ventricular hypertrophy. The estimated ejection fraction is 65 %. Stage 1 diastolic dysfunction. Trivial mitral valve insufficiency. Trivial tricuspid valve insufficiency. Right ventricular systolic pressure estimated to be 31 mmHg. Trivial aortic valve insufficiency. Charges/Coding Visit Charges Inpatient E&M: 54911 Init Hosp L3 OBSV E&M: 60086 Observ/hosp same date L1
--- NOTE | 2022-06-13 20:18 | EKG12_ITS ---
Test Reason : PRE-OP Blood Pressure : / mmHG Vent. Rate : 079 BPM Atrial Rate : 079 BPM P-R Int : 142 ms QRS Dur : 086 ms QT Int : 384 ms P-R-T Axes : 062 027 052 degrees QTc Int : 440 ms Normal sinus rhythm Normal ECG When compared with ECG of 29-OCT-2019 05:04, No significant change was found Confirmed by DEREK CAMPA, MARTHA ([id number]), school photograph editor HAM ALEXANDRA ([id number]) on 06/17/2022 2:11:46 PM Referred By: CHERRIE Confirmed By:MARTHA REED MD
[2022-06-13] MEDS: 0.9% Normal Saline 1,000 ML 75 ML IV (21:04)
[2022-06-13 21:05] LABS: International Normalized Ratio 1.2
[2022-06-13] MEDS: 0.9% Saline Lock 10 ML Syringe IV (21:05)
[2022-06-13] MEDS: Atorvastatin Calcium 10 MG Tablet PO (21:24)
[2022-06-13] MEDS: Tamsulosin HCl 0.4 MG Capsule PO (21:24)
[2022-06-13 21:45] LABS: Magnesium 2.2 mg/dL (1.6-2.6)
[2022-06-13 23:04] LABS: Hemoglobin 12.8 g/dL (13.0-16.5)
[2022-06-14] VITALS (15 sets, daily range): BP systolic 86–160; BP diastolic 48–91; PULSE 64–89; RESP 16–18; TEMP 36.6–37.3; O2SAT 94–99; BMI 27.2
[2022-06-14] MEDS: Calcium Carbonate 500 MG Tablet PO (00:33)
[2022-06-14 04:27] LABS: Absolute Lymphocyte Count 1.83 X10^3/uL (0.83-4.51); Absolute Neutrophil Count 14.4 X10^3/uL (2.0-7.7); Basophil# 0.02 X10^3/uL; Basophil% 0.1 % (0-1); Hematocrit 37.3 % (40-54); Hemoglobin 12.7 g/dL (13.0-16.5); Lymphocyte # 1.83 X10^3/ul (0.83-4.51); Lymphocyte % 10.2 % (19-41); Mean Corpuscular Hgb 29.6 pg (27.0-32.0); Mean Corpuscular Volume 86.9 fL (80-94); Mean Platelet Vol. 9.3 fl (6.2-12.0); Monocyte# 1.64 X10^3/uL; Monocyte% 9.1 % (0-10); NRBC Flagged by Analyzer 0 % (0-5); Neutrophil # 14.39 X10^3/uL (2.7-7.7); POSITIVE DIFFERENTIAL YES; Platelet Count 159 K/mm3 (150-450); RBC Distribution Width SD 44.2 fl (35.1-43.9); Red Blood Count 4.29 M/mm3 (4.6-6.2)
[2022-06-14 04:36] LABS: Differential Indicated SCAN CRITERIA MET
[2022-06-14 04:57] LABS: Phosphorus 2.2 mg/dL (2.5-4.9)
[2022-06-14 05:28] LABS: Anion Gap 5 (5-15); BUN 50 mg/dL (7-18); Calcium,Total 9.2 mg/dL (8.5-10.1); Chloride 105 mmol/L (98-107); Creatinine, Serum 1.02 mg/dL (0.70-1.30); EST Glomerular Filtration Rate 74 mL/min (>60); Est Glom Filt Rate - Afr Amer 90 mL/min (>60); Estimated Creatinine Clearance 49.52 ml/min; Glucose 145 mg/dL (74-106); Potassium 3.6 mmol/L (3.5-5.1); Sodium Level 137 mmol/L (136-145); Thyroid Stim Hormone (TSH) 0.56 uIU/mL (0.358-3.74)
--- NOTE | 2022-06-14 10:10 | CASEMGMT ---
SAMUEL KNAPP Face to Face with patient for initial transition planning/care coordination assessment. RN CM introduced self and role at [facility]. Patient lying in bed, alert and oriented, daughter at bedside. Patient willing to participate in assessment and is able to answer all questions appropriately. Care providers, pharmacy, and demographics verified. Patient wishes to discharge home, denies need for home health at this time. Patient states he has no further needs or concerns at this time. CM to follow for discharge planning needs that may arise. PCP: [place] Specialists: Odilon scalp specialist; Andrea surgeon Preferred Pharmacy: [facility] Insurance: [facility], [facility] Prescription Benefit: yes Living Will/HPOA: yes, daughter Zulema Bernstein HPOA LNOK: , daughters Living Arrangements: Patient lives with in a 2 home. Patient is independent and able to ambulate stairs. Transportation: , children DME/HHC: Patient has shower chair, raised toilet, cane, walker, grab bars, and wheelchair at home. Patient denies previous HHC or SNF. Disposition Plan: Patient to discharge home with family support and follow-up plans in place Mora BLAIR, RN, CM
[2022-06-14] MEDS: Tamsulosin HCl 0.4 MG Capsule PO ×2 (10:28→22:48)
[2022-06-14] MEDS: 0.9% Normal Saline 1,000 ML 75 ML IV (10:29)
--- NOTE | 2022-06-14 12:42 | PN.SURG_ITS ---
Subjective Subjective Patient is an 82-year-old white male who is status post a laparoscopic bilateral inguinal hernia repair this past Friday. Presented with GI bleed. Friend is here to see the patient is going to be doing an upper endoscopy on him today. Objective Data Objective Data Abdomen is soft dressings are dry no hematomas are identified. Vital Signs: Vital Signs Temp Pulse Resp BP Pulse Ox O2 Del Method 99.1 F 87 18 158/91 H 97 Room Air 06/14/22 08:24 06/14/22 09:46 06/14/22 08:24 06/14/22 08:24 06/14/22 08:24 06/14/22 09:39 Oxygen Delivery Method Room Air Weight: 173 lb 8.061 oz Body Mass Index (BMI) 28.4 Intake & Output: Intake and Output for Last 24 Hours 06/12/22 06/13/22 06/14/22 23:59 23:59 23:59 Intake Total 1035 / 1435 1182.5 / 1182.5 Output Total 100 / 750 1425 / 1425 Balance 935 / 685 -242.5 / -242.5 Lab / Micro Data Result Diagrams: 06/14/22 04:04 06/14/22 04:04 Labs: Laboratory Results - last 24 hr 06/13/22 16:55: WBC 16.9 H, RBC 4.89, Hgb 14.5, Hct 42.6, MCV 87.1, MCH 29.7, MCHC 34.0, RDW Std Deviation 44.2 H, RDW Coeff of Zoë 13.9, Plt Count 205, MPV 9.3, Immature Gran % (Auto) 0.500, Neut % (Auto) 85.3 H, Lymph % (Auto) 6.9 L, [place] % (Auto) 7.2, Eos % (Auto) 0.0, Baso % (Auto) 0.1, Absolute Neuts (auto) 14.4 H, Absolute Lymphs (auto) 1.16, Nucleated RBC % 0 06/13/22 16:55: Sodium 136, Potassium 4.5, Chloride 98, Carbon Dioxide 29.0, Anion Gap 9, BUN 44 H, Creatinine 1.45 H, Estim Creat Clear Calc 36.09, Est GFR (MDRD) Af Amer 60, Est GFR (MDRD) Non-Af 49 L, BUN/Creatinine Ratio 30.3 H, Glucose 178 H, Calcium 9.7, Total Bilirubin 1.00, AST 23, ALT 18, Alkaline Phosphatase 88, Total Protein 7.4, Albumin 3.8, Globulin 3.6, Albumin/Globulin Ratio 1.1, Lipase 46 L 06/13/22 16:55: Magnesium 2.2 06/13/22 17:30: Urine Color Yellow, Urine Clarity Clear, Urine pH 8.0, Ur Specific [place] 1.010, Urine Protein 30 H, Urine Glucose (UA) 50 H, Urine Ketones 15 H, Urine Occult Blood Negative, Urine Nitrite Negative, Urine Bilirubin Negative, Urine Urobilinogen Normal, Ur Leukocyte Esterase Negative, Urine RBC 0 SEEN, Urine WBC 0 SEEN, Ur Squamous Epith Cells 0-5 SEEN, Urine Bacteria 1+, Urine Mucus 0 SEEN 06/13/22 20:36: PT 15.0 H, INR 1.2 06/13/22 22:29: Hgb 12.8 L, Hct 37.0 L 06/14/22 04:04: WBC 18.0 H, RBC 4.29 L, Hgb 12.7 L, Hct 37.3 L, MCV 86.9, MCH 29.6, MCHC 34.0, RDW Std Deviation 44.2 H, RDW Coeff of Zoë 14.0, Plt Count 159, MPV 9.3, Immature Gran % (Auto) 0.600, Neut % (Auto) 80.0 H, Lymph % (Auto) 10.2 L, [place] % (Auto) 9.1, Eos % (Auto) 0.0, Baso % (Auto) 0.1, Absolute Neuts (auto) 14.4 H, Absolute Lymphs (auto) 1.83, Nucleated RBC % 0, Diff Path Review December06/14/22 04:04: Sodium 137, Potassium 3.6, Chloride 105, Carbon Dioxide 27.0, Anion Gap 5, BUN 50 H, Creatinine 1.02, Estim Creat Clear Calc 49.52, Est GFR (MDRD) Af Amer 90, Est GFR (MDRD) Non-Af 74, BUN/Creatinine Ratio 49.0 H, Glucose 145 H, Calcium 9.2, TSH 0.56 06/14/22 04:04: Phosphorus 2.2 L Micro: Microbiology 06/13/22 17:30 Vomitus Gastric Occult Blood - Final Occult Blood Positive Radiography Diagnostic Testing: Radiology Impression Abdomen/Pelvis CT 06/13/22 18:10 IMPRESSION: 1. Resolution of the bowel seen within the right inguinal canal on the previous study. There is no gas in the distal left inguinal canal/upper scrotum of uncertain etiology. This is incompletely visualized on the current exam. 2. Stable aortobiiliac stent. 3. No other interval change. Electronically Signed: Galindo Henry DO at 18:49 EDT Reading Location ID and State: [facility] / [place] Tel [phone], Service support , Chest X-Ray 06/13/22 18:18 IMPRESSION: No acute cardiopulmonary disease or major interval change. Electronically Signed: Galindo Henry DO at 18:50 EDT Reading Location ID and State: [employer] / [place] Tel [phone], Service support , Assessment & Plan Assessment/Plan (1) Status post bilateral inguinal hernia repair: PLAN: It is okay for the patient to be discharged with his Padron catheter. I will see him in the office and remove it.
[2022-06-14 13:24] LABS: Pathologist Review Reviewed
[2022-06-14] MEDS: Lactated Ringers 1,000 ML 15 ML IV (16:07)
--- NOTE | 2022-06-14 16:41 | DS.PCM_ITS ---
Providers Date of Admission: 06/13/22 Date of Discharge: 06/15/22 Primary Care Physician: Dr. Robel Onofre, Consultations 06/13/22 20:34 Consult: Gastroenterology Routine Consulting Provider: Francoise G[facility] Reason for Consult: Upper GI Bleed EMERGENT Consult: No MD Notified: Yes Date Notified: 06/13/22 Time Notified: 17:00 Method of Notification: Verbal Reason For Visit: UPPER GI BLEED Diagnosis Discharge Diagnosis (1) Status post bilateral inguinal hernia repair: Status: Acute Code(s): Z98.890 - Other specified postprocedural states; Z87.19 - Personal history of ot her diseases of the digestive system (2) Erosive esophagitis: Status: Acute Code(s): K22.10 - Ulcer of esophagus without bleeding (3) Urinary retention: Status: Acute Code(s): R33.9 - Retention of urine, unspecified (4) PEPE (acute kidney injury): Status: Acute Code(s): N17.9 - Acute kidney failure, unspecified (5) Leukocytosis: Status: Acute Code(s): D72.829 - Elevated white blood cell count, unspecified (6) Acute blood loss anemia: Status: Acute Code(s): D62 - Acute posthemorrhagic anemia Medications at Discharge Home Medications finasteride 5 mg tablet 5 mg PO DAILY prostate 02/23/18 aspirin 81 mg tablet,delayed release (Adult Aspirin Regimen) 81 mg PO DAILY blood thinner 08/11/18 tamsulosin 0.4 mg capsule 0.4 mg PO QHS prostate 10/27/19 atenolol 50 mg tablet 50 mg PO DAILY BLOOD PRESSURE 11/18/19 clopidogrel 75 mg tablet 75 mg PO DAILY BLOOD THINNER #90 tabs 02/07/20 simvastatin 20 mg tablet 20 mg PO QHS cholesterol #90 tabs 11/10/20 amlodipine 5 mg tablet 5 mg PO DAILY BLOOD PRESSURE 06/13/22 cholecalciferol (vitamin D3) 50 mcg (2,000 unit) capsule (Vitamin D3) 50 mcg PO DAILY SUPPLEMENT 06/13/22 cyanocobalamin (vitamin B-12) 1,000 mcg tablet 1,000 mcg PO DAILY SUPPLEMENT 06/13/22 hydrochlorothiazide 12.5 mg capsule 12.5 mg PO DAILY 06/13/22 lisinopril 5 mg tablet 5 mg PO DAILY BLOOD PRESSURE 06/13/22 oxycodone-acetaminophen 5 mg-325 mg tablet 1 tab PO Q6H PRN Pain 06/13/22 pantoprazole 40 mg tablet,delayed release (Protonix) 40 mg PO DAILY #60 tabs 06/14/22 sucralfate 1 gram tablet (Carafate) 1 g PO Q6H #120 tabs 06/15/22 Hospital Course Operations None Procedures EGD and - (CT abdomen and pelvis) Summary of Care Provided Minutes Spent on Discharge: 29 Hospital Course: Mr. Matamoros is an 82-year-old white male who presented to the emergency department [facility] on 06/13/2022 complaining of nausea and vomiting that contained coffee-ground emesis. This evidently started on the day of presentation. The patient had an elective laparoscopic bilateral inguinal hernia repair done by Dr. Mendez on the day prior to admission and was discharged home following the procedure. He had difficulty urinating but was able to void spontaneously prior to discharge from that procedure. The morning of admission he complained that he was having some difficulty initiating his urine and felt like he was incompletely emptying. He evidently does have a history of urinary tension following anesthesia and has BPH at baseline and takes Flomax and finasteride. He evidently started having coffee-ground emesis on wakening the day of admission and he had a witnessed episode in the emergency department therefore he was admitted to the hospital. Vital signs on presentation to the emergency department showed a temperature of 97.1, respiratory rate of 83, blood pressure 125/70, pulse ox 98% on room air. CBC showed a leukocytosis with a hemoglobin of 14.5 however his repeat hemoglobin dropped to 12.8. Platelet count was normal. His chemistry panel showed normal electrolytes however his initial BUN was 44 and his creatinine was 1.45. This improved with hydration to 1.02 on the day of discharge. His TSH was 0.56. CT of his abdomen pelvis was performed in the emergency department which showed resolution of bowel in the right inguinal canal, a stable aortic stent and no interval change. He was seen by gastroenterology for which an EGD was performed. EGD identified severe erosive esophagitis which was treated with heater probe and biopsied, small hiatal hernia, hematin in the stomach, and blood in the second portion of the duodenum. Recommendations were for a clear liquid diet x3 days with a slow transition, use of Protonix 40 mg p.o. twice daily for 4 weeks as well as Carafate suspension 1 g p.o. 4 times daily. With the severity of his esophagitis he was monitored overnight with a repeat hemoglobin obtained on the a.m. of 06/15/2022 and was found to be 9.2 down from 12.7 the day previously. The patient had no signs of active bleeding and a repeat hemoglobin was obtained approximately 3 hours post his initial specimen and it was found to be stable at 9.0. I suspect the drop was from fluids and equilibration. He did have a drop in his platelets as well and this is likely consumptive. It did appear that the esophagus may have ischemic changes and there was some suspicion that he perhaps had some hypotension during his operative procedure earlier this week however those records are not available to us. The importance of compliance with his clear liquid diet and transition slowly to soft then regular foods after the 3-day clear liquid portion was completed was impressed upon the patient with great significance and he voiced understanding along with his daughter at the bedside. Patient is to avoid aspirin, ibuprofen, naproxen and other nonsteroidal anti-inflammatory drugs for 7 days after EGD. He is to follow-up with Dr. Heard within the next 2 weeks and call Friday to initiate appointment. He is to follow-up with Dr. Mendez postoperatively for his bilateral inguinal hernia repair and per Dr. Mendez's documentation he would like him to leave his Padron in and he would remove it in the office. He is to follow-up with his primary care physician within the next 1 week. Would recommend follow-up CBC to be done within the next 3 to 5 days. Patient instructed to call primary care physician to obtain order to be done next week. Discharge diagnoses: Severe erosive esophagitis Upper GI bleed Acute blood loss anemia Leukocytosis-suspected reactive Postoperative urinary retention PEPE-resolved CAD status post CABG/stents Vitamin D deficiency Hypertension BPH AAA status post endovascular stent graft Hyperlipidemia GERD Physical Exam Narrative Patient complains only of some reflux which he states he has chronically Const alert, oriented x3, no apparent distress and well nourished Constitutional Narrative: Elderly white male, lying in bed, appears comfortable, nontoxic, daughter at bedside General Appearance: cooperative, comfortable, well kempt and well developed Orientation / Consciousness: awake, oriented to person, oriented to place and oriented to time Exam Limitations: no limitations Nutritional Appearance: overweight HEENT normocephalic, head/scalp atraumatic and moist oral mucous membranes HEENT Narrative: Mallampati 2, no thrush Eyes PERRL and EOMs intact bilaterally Eyes Narrative: Slight conjunctival pallor bilaterally, no scleral icterus Resp normal respiratory effort, no retractions, no use of accessory muscles and clear to auscultation bilaterally Auscultation: Negative for crackles, rales, rhonchi or wheezes Cardio regular rate, regular rhythm, S1 normal heart sound, S2 normal heart sound, no murmurs, no rub, no gallops and no clicks GI normal to inspection, nondistended, normoactive bowel sounds, soft to palpation and non-tender Extremity no clubbing, cyanosis or edema Extremity Narrative: 2+ pedal pulses Skin no rashes or lesions noted, no wounds, skin turgor normal and no jaundice Neuro oriented x3, CN's II-XII intact bilaterally, moves all extremities and no focal motor deficits Speech: speech normal Psych affect normal Psych Narrative: Pleasant, appropriately interactive, cooperative Weight / BMI Weight Weight: 78.7 kg Body Mass Index (BMI) 27.2 ABG / Lab / Microbiology Data Result Diagrams: 06/15/22 08:52 06/15/22 06:27 Laboratory: Laboratory Results - last 24 hr 06/13/22 16:55: WBC 16.9 H, RBC 4.89, Hgb 14.5, Hct 42.6, MCV 87.1, MCH 29.7, MCHC 34.0, RDW Std Deviation 44.2 H, RDW Coeff of Zoë 13.9, Plt Count 205, MPV 9.3, Immature Gran % (Auto) 0.500, Neut % (Auto) 85.3 H, Lymph % (Auto) 6.9 L, Waldo % (Auto) 7.2, Eos % (Auto) 0.0, Baso % (Auto) 0.1, Absolute Neuts (auto) 14.4 H, Absolute Lymphs (auto) 1.16, Nucleated RBC % 0 06/13/22 16:55: Sodium 136, Potassium 4.5, Chloride 98, Carbon Dioxide 29.0, Anion Gap 9, BUN 44 H, Creatinine 1.45 H, Estim Creat Clear Calc 36.09, Est GFR (MDRD) Af Amer 60, Est GFR (MDRD) Non-Af 49 L, BUN/Creatinine Ratio 30.3 H, Glucose 178 H, Calcium 9.7, Total Bilirubin 1.00, AST 23, ALT 18, Alkaline Phosphatase 88, Total Protein 7.4, Albumin 3.8, Globulin 3.6, Albumin/Globulin Ratio 1.1, Lipase 46 L 06/13/22 16:55: Magnesium 2.2 06/13/22 17:30: Urine Color Yellow, Urine Clarity Clear, Urine pH 8.0, Ur Specific Mershon 1.010, Urine Protein 30 H, Urine Glucose (UA) 50 H, Urine Ketones 15 H, Urine Occult Blood Negative, Urine Nitrite Negative, Urine Bilirubin Negative, Urine Urobilinogen Normal, Ur Leukocyte Esterase Negative, Urine RBC 0 SEEN, Urine WBC 0 SEEN, Ur Squamous Epith Cells 0-5 SEEN, Urine Bacteria 1+, Urine Mucus 0 SEEN 06/13/22 20:36: PT 15.0 H, INR 1.2 06/13/22 22:29: Hgb 12.8 L, Hct 37.0 L 06/14/22 04:04: WBC 18.0 H, RBC 4.29 L, Hgb 12.7 L, Hct 37.3 L, MCV 86.9, MCH 29.6, MCHC 34.0, RDW Std Deviation 44.2 H, RDW Coeff of Zoë 14.0, Plt Count 159, MPV 9.3, Immature Gran % (Auto) 0.600, Neut % (Auto) 80.0 H, Lymph % (Auto) 10.2 L, Waldo % (Auto) 9.1, Eos % (Auto) 0.0, Baso % (Auto) 0.1, Absolute Neuts (auto) 14.4 H, Absolute Lymphs (auto) 1.83, Nucleated RBC % 0, Diff Path Review Reviewed 06/14/22 04:04: Sodium 137, Potassium 3.6, Chloride 105, Carbon Dioxide 27.0, Anion Gap 5, BUN 50 H, Creatinine 1.02, Estim Creat Clear Calc 49.52, Est GFR (MDRD) Af Amer 90, Est GFR (MDRD) Non-Af 74, BUN/Creatinine Ratio 49.0 H, Glucose 145 H, Calcium 9.2, TSH 0.56 06/14/22 04:04: Phosphorus 2.2 L Microbiology: Microbiology 06/13/22 17:30 Vomitus Gastric Occult Blood - Final Occult Blood Positive Radiography Diagnostic Testing: Radiology Impression Abdomen/Pelvis CT 06/13/22 18:10 IMPRESSION: 1. Resolution of the bowel seen within the right inguinal canal on the previous study. There is no gas in the distal left inguinal canal/upper scrotum of uncertain etiology. This is incompletely visualized on the current exam. 2. Stable aortobiiliac stent. 3. No other interval change. Electronically Signed: Galindo Henry DO at 18:49 EDT Reading Location ID and State: [place] / [place] Tel [phone], Service support , Chest X-Ray 06/13/22 18:18 IMPRESSION: No acute cardiopulmonary disease or major interval change. Electronically Signed: Galindo Henry DO at 18:50 EDT Reading Location ID and State: [place] / [place] Tel [phone], Service support , D/C Instructions Discharge Diet: - (Clear liquid diet x3 days then advance to soft diet and slowly back to regular food, may use clear supplements) Discharge Activity: Return to Normal Activity Meaningful Use Info Meaningful Use Diagnoses (Choose all that apply): None applicable Discharge Plan Admission Admit Date/Time: 06/13/22 20:03 Primary Reason for Your Visit: Hematemesis/nausea vomiting Attending Provider: Mikaela Beck Primary Care Provider: Robel Onofre Consulting Providers: Rico Holliday Instructions Additional Instructions / Restrictions: 1. Maintain Padron until seen by Dr. Mendez 2. Please taken no more than a clear liquid diet for the next 3 days okay to use clear Ensure supplements during that time to supplement nutrition 3. Hold aspirin and Plavix as noted below until next 06/22/2022 at which time they may be restarted 4. Please continue Protonix and Carafate as ordered -Please crush Carafate and placed in liquid to take 5. Please call primary care physician on 06/17/2022 and request comple te blood count lab work to be done no later than Friday of next week to follow-up your blood counts. 6. Return to the emergency department with any ongoing nausea or vomiting Discharge Orders/Prescriptions Prescriptions: New pantoprazole [Protonix] 40 mg tablet,delayed release (DR/EC) 40 mg PO DAILY Qty: 60 1RF sucralfate [Carafate] 1 gram tablet 1 g PO Q6H Qty: 120 1RF Rx Instructions: Crush tablets and placed in liquid to make slurry to take Continued finasteride 5 mg tablet 5 mg PO DAILY atenolol 50 mg tablet 50 mg PO DAILY tamsulosin 0.4 mg capsule 0.4 mg PO QHS cyanocobalamin (vitamin B-12) 1,000 mcg tablet 1,000 mcg PO DAILY Label Comments: Take 1 tablet by mouth once daily. oxycodone-acetaminophen 5-325 mg tablet 1 tab PO Q6H PRN (Reason: Pain) hydrochlorothiazide 12.5 mg capsule 12.5 mg PO DAILY lisinopril 5 mg tablet 5 mg PO DAILY cholecalciferol (vitamin D3) [Vitamin D3] 50 mcg (2,000 unit) capsule 50 mcg PO DAILY amlodipine 5 mg tablet 5 mg PO DAILY simvastatin 20 mg tablet 20 mg PO QHS Qty: 90 4RF Held aspirin [Adult Aspirin Regimen] 81 mg tablet,delayed release (DR/EC) 81 mg PO DAILY Hold Instructions: Resume on 06/22/22. clopidogrel 75 mg tablet 75 mg PO DAILY Qty: 90 3RF Hold Instructions: Resume on 06/22/22. Discontinued lansoprazole 15 mg Capsule,Delayed Release(Dr/Ec) 15 mg PO QHS Referrals / Follow Up: Florencio Mendez MD [Med Staff - Active Staff] - See Referral Note (As scheduled) Robel Onofre DO [Primary Care Provider] - Within 2 Weeks Zeeshan Heard DO [Med Staff - Active Staff] - Within 2 Weeks (Call on Friday to make appointment) Disposition Disposition (needs filled in before D/C Order can be placed): Home, Self Care Charges/Coding Visit Charges Inpatient E&M: 77158 Disch Hosp
--- NOTE | 2022-06-14 17:30 | EGD_PTH ---
PATIENT: EZE EVANS LOC: 3 U#:[id number] AGE/SX: 82/M ROOM: [facility] RE06/13/[address]: Dr. Mikaela Beck DO : 1940 BED: 1 DIS: 06/15/2022 SPEC #: [id number] RECD: 06/14/22 21:02 STATUS: GUS REMarkie #: [id number] MIMA: 06/14/22 17:[address]: Zeeshan Heard DEPT: SURGICAL PATHOLOGY RECD BY: Susana Herrmann ENTERED: 06/17/22 08:56 SP TYPE: EGD BIOPSY OT DR: DO Dr. Mikaela Balderas DO Dr. Prakash Chand, MD Tissues: Esophagus, NOS Procedures: Special Stain Group I Surgery Specimen Level IV GMS Stain (control) Comments: @ Ordering doctor for SUIV edited from to @ by BAIRON at 06/17/22 1340 @ Submitting doctor edited from to @ by RGOOD at 06/17/22 1340 HEADER OPERATION: EGD with biopsies (MAC) PRE-OP DIAGNOSIS: Upper GI bleed TISSUE SUBMITTED: Random esophagus biopsy MICROSCOPIC DIAGNOSIS Esophagus, random biopsy: Ulceration with associated acute and chronic inflammation, fibrinopurulent exudate and granulation. Reactive epithelial atypia. Fungal organisms consistent with Nara species. AM:veronica 06/18/2022 COMMENT GMS stain with matched control was used in the evaluation of this case. MICROSCOPIC DESCRIPTION Slides are reviewed. GROSS DESCRIPTION Received in fixative is one container labeled with the patient's name and designated random esophagus biopsy. The specimen consists of multiple irregular fragments of light fitzgerald soft tissue that in aggregate measure 1 x 0.8 x 0.1 cm. The specimen is totally submitted in one cassette. / AM:veronica 06/17/2022 TC:2 CPT: 53300, 90106
--- NOTE | 2022-06-14 17:36 | OP.EGD_ITS ---
Patient Name: Todd Matamoros Procedure Date: 06/14/2022 5:09 PM Date of : 1940 Age: 82 Procedure: Upper GI endoscopy Indications: Epigastric abdominal pain, Hematemesis Providers: Zeeshan Heard DO Medicines: Monitored Anesthesia Care Patient Profile: This is an 82 year old male. Refer to note in patient chart for documentation of history and physical. Patient has symptoms of acute abdominal cramping, acute abdominal distention, acute epigastric abdominal pain and acute vomiting. Complications: No immediate complications. Procedure: Pre-Anesthesia Assessment: - Prior to the procedure, a History and Physical was performed, and patient medications and allergies were reviewed. The risks and benefits of the procedure and the sedation options and risks were discussed with the patient. All questions were answered and informed consent was obtained. Patient identification and proposed procedure were verified by the physician in the pre-procedure area. Mental Status Examination: alert and oriented. Airway Examination: normal oropharyngeal airway and neck mobility. Respiratory Examination: clear to auscultation. CV Examination: normal. Prophylactic Antibiotics: The patient does not require prophylactic antibiotics. Prior Anticoagulants: The patient has taken no previous anticoagulant or antiplatelet agents. ASA Grade Assessment: II - A patient with mild systemic disease. After reviewing the risks and benefits, the patient was deemed in satisfactory condition to undergo the procedure. The anesthesia plan was to use monitored anesthesia care (MAC). Immediately prior to administration of medications, the patient was re-assessed for adequacy to receive sedatives. The heart rate, respiratory rate, oxygen saturations, blood pressure, adequacy of pulmonary ventilation, and response to care were monitored throughout the procedure. The physical status of the patient was re-assessed after the procedure. After obtaining informed consent, the endoscope was passed under direct vision. Throughout the procedure, the patient's blood pressure, pulse, and oxygen saturations were monitored continuously. The Endoscope was introduced through the mouth, and advanced to the second part of duodenum. The upper GI endoscopy was accomplished without difficulty. The patient tolerated the procedure well. Scope In: 5:19:41 PM Scope Out: 5:27:58 PM Total Procedure Duration Time 0 hours 8 minutes 17 seconds Findings: Severe esophagitis with bleeding was found 26 to 40 cm from the incisors. Biopsies were taken with a cold forceps for histology. Verification of patient identification for the specimen was done. Estimated blood loss was minimal. Coagulation for hemostasis using heater probe was successful. Estimated blood loss was minimal. A small hiatal hernia was present. Hematin (altered blood/vwxlzn-ccebzn-pzuz material) was found in the stomach. Hematin (altered blood/ygiyyl-wlqsbc-yval material) was found in the second portion of the duodenum. Impression: - Severe erosive esophagitis. Biopsied. Treated with a heater probe. - Small hiatal hernia. - Hematin (altered blood/gmwjya-ggsbgg-irwf material) in the stomach. - Blood in the second portion of the duodenum. Recommendation: - Return patient to hospital [facility] for ongoing care. - Clear liquid diet for 3 days. - Use Protonix (pantoprazole) 40 mg PO BID for 4 weeks. - Use sucralfate suspension 1 gram PO QID. - Continue present medications. - No aspirin, ibuprofen, naproxen, or other non-steroidal anti-inflammatory drugs for 7 days after biopsy. Procedure Code(s): --- Professional --- 27869, 59, Esophagogastroduodenoscopy, flexible, transoral; with control of bleeding, any method 02109, 51, Esophagogastroduodenoscopy, flexible, transoral; with biopsy, single or multiple CPT copyright 2017 [employer]. All rights reserved. The codes documented in this report are preliminary and upon voip engineer review may be revised to meet current compliance requirements. Zeeshan Heard DO 06/14/2022 5:35:45 PM This report has been signed electronically. Number of Addenda: 0 Note Initiated On: 06/14/2022 5:09 PM
--- NOTE | 2022-06-14 17:37 | OP.CCLET_ITS ---
06/14/2022 Robel Onofre [address] [place] [address] Re : Upper GI endoscopy procedure for [facility] Dear Dr. Onofre This procedure was performed on Tuesday, June 14, 2022. My impressions and recommendations are as follows: Impressions : - Severe erosive esophagitis. Biopsied. Treated with a heater probe. - Small hiatal hernia. - Hematin (altered blood/ygeksy-tfcpim-fuxj material) in the stomach. - Blood in the second portion of the duodenum. Recommendations : - Return patient to hospital [facility] for ongoing care. - Clear liquid diet for 3 days. - Use Protonix (pantoprazole) 40 mg PO BID for 4 weeks. - Use sucralfate suspension 1 gram PO QID. - Continue present medications. - No aspirin, ibuprofen, naproxen, or other non-steroidal anti-inflammatory drugs for 7 days after biopsy. My findings are described in the full procedure note, which is enclosed. If I can be of further assistance, please feel free to contact me at . Sincerely, Zeeshan Heard, 06/14/2022 5:35:45 PM This report has been signed electronically.
--- NOTE | 2022-06-14 18:12 | PN.HOSP_ITS ---
Subjective Subjective Patient reports he is feeling well and would like to be able to go home. Hesitant on proceeding with the EGD and would like to talk to DrBeata Friend along with his daughter. Seems upset about the way his surgery went in [place]. Denies any further nausea or vomiting. States he is quite hungry. Also concerned about his urinary retention postoperatively. Objective Data Objective Data Vital Signs: Vital Signs Temp Pulse Resp BP Pulse Ox O2 Del Method 98 F 82 18 122/81 H 99 Room Air 06/14/22 17:53 06/14/22 17:53 06/14/22 17:53 06/14/22 17:53 06/14/22 17:53 06/14/22 17:53 Oxygen Delivery Method Room Air Weight: 78.7 kg Body Mass Index (BMI) 27.2 Intake & Output: Intake and Output for Last 24 Hours 06/12/22 06/13/22 06/14/22 23:59 23:59 23:59 Intake Total 1035 / 1435 3045.5 / 3045.5 Output Total 100 / 750 2425 / 2425 Balance 935 / 685 620.5 / 620.5 Lab / Micro Data Result Diagrams: 06/14/22 04:04 06/14/22 04:04 Labs: Laboratory Results - last 24 hr 06/13/22 16:55: Magnesium 2.2 06/13/22 17:30: Urine RBC 0 SEEN, Urine WBC 0 SEEN, Ur Squamous Epith Cells 0-5 SEEN, Urine Bacteria 1+, Urine Mucus 0 SEEN 06/13/22 20:36: PT 15.0 H, INR 1.2 06/13/22 22:29: Hgb 12.8 L, Hct 37.0 L 06/14/22 04:04: WBC 18.0 H, RBC 4.29 L, Hgb 12.7 L, Hct 37.3 L, MCV 86.9, MCH 29.6, MCHC 34.0, RDW Std Deviation 44.2 H, RDW Coeff of Zoë 14.0, Plt Count 159, MPV 9.3, Immature Gran % (Auto) 0.600, Neut % (Auto) 80.0 H, Lymph % (Auto) 10.2 L, [place] % (Auto) 9.1, Eos % (Auto) 0.0, Baso % (Auto) 0.1, Absolute Neuts (auto) 14.4 H, Absolute Lymphs (auto) 1.83, Nucleated RBC % 0, Diff Path Review Reviewed 06/14/22 04:04: Sodium 137, Potassium 3.6, Chloride 105, Carbon Dioxide 27.0, Anion Gap 5, BUN 50 H, Creatinine 1.02, Estim Creat Clear Calc 49.52, Est GFR (MDRD) Af Amer 90, Est GFR (MDRD) Non-Af 74, BUN/Creatinine Ratio 49.0 H, Glucose 145 H, Calcium 9.2, TSH 0.56 06/14/22 04:04: Phosphorus 2.2 L Micro: Microbiology 06/13/22 17:30 Vomitus Gastric Occult Blood - Final Occult Blood Positive Radiography Diagnostic Testing: Radiology Impression Abdomen/Pelvis CT 06/13/22 18:10 IMPRESSION: 1. Resolution of the bowel seen within the right inguinal canal on the previous study. There is no gas in the distal left inguinal canal/upper scrotum of uncertain etiology. This is incompletely visualized on the current exam. 2. Stable aortobiiliac stent. 3. No other interval change. Electronically Signed: Galindo Henry DO at 18:49 EDT Reading Location ID and State: [place] / [place] Tel [phone], Service support , Chest X-Ray 06/13/22 18:18 IMPRESSION: No acute cardiopulmonary disease or major interval change. Electronically Signed: Galindo Henry DO at 18:50 EDT Reading Location ID and State: [facility] / [place] Tel [phone], Service support , Physical Exam Const alert, oriented x3 and no apparent distress Constitutional Narrative: Elderly white male, somewhat agitated and refusing EGD at this time, would like to talk to Dr. Heard along with his daughter prior to proceeding, nontoxic appearing HEENT head/scalp atraumatic and moist oral mucous membranes HEENT Narrative: Moderate hearing loss with hearing aids in place Head and Scalp: normocephalic Resp normal respiratory effort, no retractions, no use of accessory muscles and clear to auscultation bilaterally Auscultation: Negative for crackles, rales, rhonchi or wheezes Cardio regular rate, regular rhythm, S1 normal heart sound, S2 normal heart sound, no murmurs, no rub, no gallops and no clicks GI normal to inspection, nondistended, normoactive bowel sounds, soft to palpation and non-tender Extremity no clubbing, cyanosis or edema Extremity Narrative: 2+ pedal pulses Neuro oriented x3, moves all extremities and no focal motor deficits Speech: speech normal Psych Psych Narrative: Mildly agitated Assessment & Plan Assessment/Plan (1) Upper GI bleed: (2) Acute blood loss anemia: (3) Urinary retention: (4) Erosive esophagitis: (5) Leukocytosis: (6) PEPE (acute kidney injury): PLAN: Plan Upper GI bleed secondary to severe erosive esophagitis -Plan to monitor overnight -Clear liquid diet initiated and patient to continue for 3 days after EGD on -Plan to hold aspirin and Plavix as well as other NSAIDs for the next 7 days with restart date 06/22/2022 -Protonix p.o. twice daily -Carafate 4 times daily -Follow-up CBC after discharge 3 to 5 days -Biopsies taken at EGD -Will need follow-up with GI after discharge in 2 weeks -Discharge tomorrow if patient remains stable and able to tolerate clear liquid diet Acute blood loss anemia -Mild with hemoglobin dropped to 12.1 -Hemoglobin is currently stable -No need for transfusion -Repeat CBC in the morning for stability Leukocytosis -Suspect reactive with relationship to surgery and GI bleeding -No signs of infection however could be related to esophageal stress related to the above -Repeat CBC in a.m. Postoperative urinary retention -Continue Flomax and Proscar -We will maintain Padron until he follows up with Dr. Mendez after discharge at which time Dr. Mendez will plan on removing Padron PEPE -Resolved -Serum creatinine is back to baseline CAD status post CABG/stents -Last PCI was in 2019 -Aspirin and Plavix on hold secondary to above -Continue and statin Hypertension -Continue home -Continue home Hydrocort Zide -Continue home amlodipine Hyperlipidemia -Continue home simvastatin BPH -Continue home Flomax -Continue home Proscar History of AAA status post endovascular stent graft -Currently stable History of GERD -Hold home Nexium -Protonix p.o. 40 mg twice daily DVT prophylaxis -SCDs -Chemoprophylaxis contraindicated secondary above CODE STATUS -full code Charges/Coding Visit Charges Inpatient E&M: 73739 Subs Hosp L2
[2022-06-14] MEDS: Atorvastatin Calcium 10 MG Tablet PO (22:48)
[2022-06-15] VITALS (8 sets, daily range): BP systolic 111–133; BP diastolic 48–64; PULSE 63–83; RESP 16–20; TEMP 36.6–37.2; O2SAT 94–97
[2022-06-15 07:15] LABS: Absolute Lymphocyte Count 0.92 X10^3/uL (0.83-4.51); Absolute Neutrophil Count 6.9 X10^3/uL (2.0-7.7); Basophil# 0.01 X10^3/uL; Basophil% 0.1 % (0-1); Eosinophil# 0.06 X10^3/uL; Eosinophils% 0.7 % (0-5); Hemoglobin 9.2 g/dL (13.0-16.5); Lymphocyte # 0.92 X10^3/ul (0.83-4.51); Lymphocyte % 10.2 % (19-41); Mean Corp Hgb Conc 34.1 g/dL (32-36); Mean Corpuscular Volume 87.9 fL (80-94); Mean Platelet Vol. 9.4 fl (6.2-12.0); Monocyte# 1.02 X10^3/uL; Monocyte% 11.3 % (0-10); NRBC Flagged by Analyzer 0 % (0-5); Neutrophil # 6.91 X10^3/uL (2.7-7.7); Neutrophil % 76.9 % (47-70); Platelet Count 109 K/mm3 (150-450); RBC Distribution Width SD 45.1 fl (35.1-43.9); Red Blood Count 3.07 M/mm3 (4.6-6.2)
[2022-06-15 07:42] LABS: Anion Gap 4 (5-15); BUN 42 mg/dL (7-18); BUN/Creat Ratio 38.5 RATIO (10-20); Calcium,Total 8.5 mg/dL (8.5-10.1); Chloride 111 mmol/L (98-107); Creatinine, Serum 1.09 mg/dL (0.70-1.30); EST Glomerular Filtration Rate 69 mL/min (>60); Est Glom Filt Rate - Afr Amer 83 mL/min (>60); Estimated Creatinine Clearance 46.34 ml/min; Glucose 123 mg/dL (74-106); Potassium 3.5 mmol/L (3.5-5.1); Sodium Level 141 mmol/L (136-145)
[2022-06-15 10:04] LABS: Absolute Lymphocyte Count 1.01 X10^3/uL (0.83-4.51); Absolute Neutrophil Count 6.1 X10^3/uL (2.0-7.7); Basophil# 0.02 X10^3/uL; Basophil% 0.2 % (0-1); Eosinophil# 0.07 X10^3/uL; Eosinophils% 0.9 % (0-5); Hematocrit 26.7 % (40-54); Lymphocyte # 1.01 X10^3/ul (0.83-4.51); Lymphocyte % 12.4 % (19-41); Mean Corp Hgb Conc 33.7 g/dL (32-36); Mean Corpuscular Hgb 29.7 pg (27.0-32.0); Mean Corpuscular Volume 88.1 fL (80-94); Mean Platelet Vol. 9.2 fl (6.2-12.0); Monocyte# 0.84 X10^3/uL; Monocyte% 10.3 % (0-10); NRBC Flagged by Analyzer 0 % (0-5); Neutrophil # 6.14 X10^3/uL (2.7-7.7); Neutrophil % 75.6 % (47-70); Platelet Count 109 K/mm3 (150-450); RBC Distribution Width CV 14.1 % (11.6-14.6); RBC Distribution Width SD 44.9 fl (35.1-43.9); Red Blood Count 3.03 M/mm3 (4.6-6.2); White Blood Count 8.1 K/mm3 (4.4-11.0)
[2022-06-15] MEDS: Tamsulosin HCl 0.4 MG Capsule PO (10:27)
[2022-06-15] MEDS: Ensure Plus High Protein 120 ML LIQUID PO (10:27)
[2022-06-15] MEDS: amLODIPine 5 MG Tablet PO (10:27)
[2022-06-15] MEDS: Atenolol 50 MG Tablet PO (10:27)
[2022-06-15] MEDS: Finasteride 5 MG Tablet PO (10:28)
== END 2022-06-15 12:54 | disposition home or self-care (01) | DRG 381 ==
LOC: ED 18:48 → MS3 20:18
PROVIDERS: Internal Medicine Gastroenterology; Admitting Provider Internal Medicine; Emergency Provider Emergency Medicine; PCP Student in an Organized Health Care Education/Training Program; Visit Provider Internal Medicine
PROC: 0DJ08ZZ Inspection of Upper Intestinal Tract, Via Natural or Artificial Opening Endoscopic (ICD-10-PCS; CPT 43235; principal; 2022-06-14 17:25)
DX: K22.11 Ulcer of esophagus with bleeding (principal); N17.9 Acute kidney failure, unspecified; D62 Acute posthemorrhagic anemia; N18.31 Chronic kidney disease, stage 3a; I25.10 Atherosclerotic heart disease of native coronary artery without angina pectoris; E78.2 Mixed hyperlipidemia; I12.9 Hypertensive chronic kidney disease with stage 1 through stage 4 chronic kidney disease, or unspecified chronic kidney disease; E55.9 Vitamin D deficiency, unspecified; K44.9 Diaphragmatic hernia without obstruction or gangrene; D72.829 Elevated white blood cell count, unspecified; E78.5 Hyperlipidemia, unspecified; K21.9 Gastro-esophageal reflux disease without esophagitis; R33.9 Retention of urine, unspecified; Z87.891 Personal history of nicotine dependence; Z66 Do not resuscitate; Z79.82 Long term (current) use of aspirin; Z79.02 Long term (current) use of antithrombotics/antiplatelets; R33.8 Other retention of urine; Z95.828 Presence of other vascular implants and grafts; I71.40 Abdominal aortic aneurysm, without rupture, unspecified; N40.1 Benign prostatic hyperplasia with lower urinary tract symptoms; Z87.19 Personal history of other diseases of the digestive system; Z98.890 Other specified postprocedural states; Z95.5 Presence of coronary angioplasty implant and graft
CPT/HCPCS: 36415; 71046; 74177; 80048; 80053; 81001; 82271; 83690; 83735; 84100; 84443; 85014; 85018; 85025; 85610; 88305; 88312; 93005; 99251; 99283; J7030; J7050; J7120; Q9967; A4216; G0463; J2405; J3490

== ENCOUNTER 2024-12-14 12:39 | Emergency (ER) | payer MEDICARE, SELFPAY ==
[2020-03-09 06:33] VITALS: BMI 29.0
[2024-12-14 12:40] VITALS: BP 188/86; PULSE 52; RESP 18; TEMP 36.3; O2SAT 97
--- NOTE | 2024-12-14 13:10 | CT_ITS ---
PROCEDURE: CTA HEAD AND NECK W/ CONTRAST 12/14/2024 REASON FOR EXAM: VERTIGO TECHNIQUE: CTA imaging of the head and neck from the aortic arch to the skull vertex with out constrast and with intravenous contrast. Coronal and Sagittal reconstruction series were provided. 3D post processing with reformations, Maximum intensity projection (MIPs) Volume rendering and Shaded surface rendering was provided. CONTRAST: Isovue 370 VOLUME: 88 mL One or more dose reduction techniques were used (e.g., Automated exposure control, adjustment of the mA and/or kV according to patient size, use of iterative reconstruction technique). RADIATION DOSE SUMMARY: CTDlvol: 33.3 mGy DLP: 1574.76 mGycm COMPARISON: None FINDINGS: Aortic Arch: Normal size and branching pattern. Mild atherosclerotic plaque. Brachiocephalic and Subclavians: Mild atherosclerotic plaque without significant stenosis. Prior CABG. RIGHT Carotid: Right CCA: Unremarkable. Right ICA: Mild calcified and soft plaque. Maximum stenosis (NASCET): <50 % Right ECA: Unremarkable. LEFT Carotid: Left CCA: Unremarkable. Left ICA: Unremarkable. Left ECA: Unremarkable. Vertebrals: Codominant. Arise from the subclavians. Both vertebrals form the basilar. RIGHT Vertebral: Unremarkable. LEFT Vertebral: Unremarkable. Anatomy: [place] anatomy is normal. Aneurysm or avm: No intracranial aneurysms or large vascular malformations are identified. Anterior cerebral arteries: Unremarkable: Middle cerebral arteries: Unremarkable. Basilar artery: Unremarkable. Posterior cerebral arteries: Unremarkable. Other major branches of the posterior circulation: Unremarkable. Major venous structures: Unremarkable. Other findings: Neck: No lymphadenopathy. Lungs: Lung apices are clear. Bones: Unenhanced brain examination was performed as well. Mild degree of cerebral atrophy as well as decreased attenuation in the bilateral periventricular white matter suggestive of chronic small-vessel disease. CT/CTA Head AND Neck W/ Contrast IMPRESSION: Minimal plaque formation at the origin of the right internal carotid artery. Cerebral atrophy. Reading Location: [place] [address]
[2024-12-14] MEDS: Metoclopramide 10 MG/2 ML Vial 2.5 MG IV (13:23)
[2024-12-14] MEDS: 0.9% Normal Saline (500mL Bag) 500 ML 1000 ML IV (13:27)
[2024-12-14 13:42] LABS: Absolute Lymphocyte Count 1.05 X10^3/uL (0.83-4.51); Absolute Neutrophil Count 4.8 X10^3/uL (2.0-7.7); Basophil# 0.02 X10^3/uL; Basophil% 0.3 % (0-1); Eosinophil# 0.18 X10^3/uL; Eosinophils% 2.7 % (0-5); Hematocrit 41.5 % (40-54); Hemoglobin 14.6 g/dL (13.0-16.5); Lymphocyte # 1.05 X10^3/ul (0.83-4.51); Lymphocyte % 15.9 % (19-41); Mean Corp Hgb Conc 35.2 g/dL (32-36); Mean Corpuscular Hgb 28.9 pg (27.0-32.0); Mean Corpuscular Volume 82.2 fL (80-94); Mean Platelet Vol. 9.4 fl (6.2-12.0); Monocyte# 0.54 X10^3/uL; Monocyte% 8.2 % (0-10); NRBC Flagged by Analyzer 0 % (0-5); Neutrophil # 4.79 X10^3/uL (2.7-7.7); Neutrophil % 72.6 % (47-70); Platelet Count 122 K/mm3 (150-450); RBC Distribution Width CV 13.9 % (11.6-14.6); RBC Distribution Width SD 41.1 fl (35.1-43.9); Red Blood Count 5.05 M/mm3 (4.6-6.2); White Blood Count 6.6 K/mm3 (4.4-11.0)
[2024-12-14 13:46] LABS: International Normalized Ratio 1.1
[2024-12-14 13:48] LABS: Partial Thromboplast Time 82.8 Seconds (24.1-36.2)
--- NOTE | 2024-12-14 13:50 | EDS_ITS ---
HPI History of Present Illness Chief Complaint: Dizziness Informant: patient and family Narrative Narrative: Patient here with daughter sent from PCP office Dr. Onofre for evaluation of vertigo symptoms. History of coronary disease with bypass in the past. Reports macular degeneration only 10% vision left. Has been on and off dizzy symptoms for months symptoms worsened yesterday while going to the bathroom. He states felt like room was spinning yesterday. He had evaluation in the office with [place] fully explained to the right he sat up and threw up. No headache. No recent upper respiratory symptoms or sinus symptoms. Does wear hearing aids. No allergies. Currently resting no symptoms. He ambulates with guidance from his daughter. Prior similar symptoms: Yes PFSH [facility] Medical History Hiatal hernia Restless legs High cholesterol History of stress test HTN (hypertension) Heart attack Macular degeneration of both eyes Atherosclerosis of coronary artery bypass graft(s) without angina pectoris Dyspnea on exertion Atherosclerosis of [place] coronary artery of [place] heart without angina pectoris Lupus anticoagulant disorder Syncope Spinal stenosis Rheumatic fever Essential (primary) hypertension Hyperlipemia, mixed Home Medications ?Medication ?Instructions ?Recorded ?Last Taken ?Type finasteride 5 mg tablet 5 mg PO DAILY prostate 02/2306/13/22 History aspirin 81 mg tablet,delayed 81 mg PO DAILY blood thin ner 08/11/18 06/04/22 History release (Adult Aspirin Regimen) tamsulosin 0.4 mg capsule 0.4 mg PO QHS prostate 10/2606/12/22 History atenolol 50 mg tablet 50 mg PO DAILY BLOOD PRESSUR E 11/18/19 06/13/22 History clopidogrel 75 mg tablet 75 mg PO DAILY BLOOD THINNER #90 02/07/20 06/04/22 Rx tabs simvastatin 20 mg tablet 20 mg PO QHS cholesterol #90 tabs 11/10/20 06/12/22 Rx cholecalciferol (vitamin D3) 50 50 mcg PO DAILY SUPPLE MENT 06/13/22 06/04/22 History mcg (2,000 unit) capsule (Vitamin D3) cyanocobalamin (vitamin B-12) 1,000 mcg PO DAILY SUPPL EMENT 06/13/22 06/04/22 History 1,000 mcg tablet pantoprazole 40 mg tablet,delayed 40 mg PO DAILY #60 t abs 06/14/22 Unknown Rx release (Protonix) omeprazole 20 mg capsule,delayed 20 mg PO DAILY Unknown History release isosorbide dinitrate 30 mg tablet 30 mg PO BID 4 Unknown History sertraline 25 mg tablet 25 mg PO DAILY 02/06/24 Unkn own History cyanocobalamin (vitamin B-12) mcg 12/14/24 Unknown His tory 1,000 mcg/mL injection solution lisinopril 10 mg tablet 10 mg PO DAILY 12/14/24 Unkn own History Allergy/AdvReac Type Severity Reaction Status Date / Time No Known Allergies Allergy Verified 12/14/24 12:42 Family History Mother CAD (coronary artery disease) Brother CAD (coronary artery disease) CABG Brother CAD (coronary artery disease) Surgical History Status post bilateral inguinal hernia repair Status post cardiac surgery History of heart artery stent H/O cardiac catheterization History of tonsillectomy 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) Stented coronary artery (10/28/19) H/O coronary artery bypass surgery History of endovascular stent graft for abdominal aortic aneurysm (AAA) History of left heart catheterization Social History Smoking Status: Former smoker how long ago did patient quit smokin years ago alcohol intake: never substance use type: does not use caffeine: Yes Type: coffee Number of servings: 4 ROS ROS ED Constitutional Constitutional ED: Denies chills, fever(s) or sweats ENT ENT ED: Denies sore throat Cardiovascular Cardiovascular: Denies chest pain, leg edema, palpitations or racing heartbeat Respiratory/Chest Respiratory/Chest: Denies cough, dyspnea or dyspnea on exertion Gastrointestinal Gastrointestinal: Reports nausea and vomiting; Denies abdominal pain or diarrhea Genitourinary Genitourinary ED: Denies dysuria, hematuria or urinary frequency Musculoskeletal Musculoskeletal: Denies back pain, extremity pain or neck pain Integumentary Denies rash or wounds Neurologic Neurologic: Reports other Details: Vertical ; Denies headache(s), paresthesias or weakness EXAM Physical Exam Const Vital Signs: 12/14/24 12:40 Temperature 97.4 F L Temperature Source Oral Pulse Rate 52 L Respiratory Rate 18 Blood Pressure 188/86 H Blood Pressure Mean 120 Pulse Ox 97 Oxygen Delivery Method Room Air Positive well nourished and well developed General Appearance ED: well developed and NAD HEENT Reports moist mucous membranes normocephalic and atraumatic Eyes Eyes Narrative: No nystagmus, he reports can see the outline of me during evaluation with light perception which is normal for him. Neck full ROM Chest Wall Chest: Negative for tenderness Resp normal respiratory effort and normal air movement Effort and Inspection: symmetric chest movement; Negative for respiratory distress Cardio regular rate, regular rhythm and no murmurs Peripheral Pulses: pulses 2+ throughout GI normal to inspection, nondistended, normoactive bowel sounds and non-tender Palpation: Negative for guarding or rebound tenderness present Extremity normal to inspection General Extremety ED: Negative for edema or tenderness General Extremity: Negative for edema Neuro oriented x3 and no sensory deficits noted Sensorium / Orientation: awake and alert Skin no rashes or lesions noted and no wounds MDM MDM MDM Narrative Medical decision making narrative: Interventions / MDM: Differential diagnosis: Diagnosis considered but do not suspect: N/A My EKG interpretation: Sinus rhythm 49, no ST changes. Imaging independently reviewed and interpreted by myself: N/A External documents reviewed: N/A Test considered but not ordered:N/A ED course: Presenting with vertigo symptoms that worsened overnight. Sent from PCP office. EKG sinus rhythm. Will check labs, CT angiogram head and neck, IV Reglan ordered. Will reevaluate. Re-evaluation: stable Disposition discussed with patient/family/significant other: Case discussed with consulting clinician: N/A This note was generated with [employer] dictation software. It may contain incorrect words, spelling, and punctuation that were not noted in checking the note before signing. Lab Data Labs: Laboratory Results - last 24 hr 12/14/24 13:24 WBC 6.6 RBC 5.05 Hgb 14.6 Hct 41.5 MCV 82.2 MCH 28.9 MCHC 35.2 RDW Std Deviation 41.1 RDW Coeff of Zoë 13.9 Plt Count 122 L MPV 9.4 Immature Gran % (Auto) 0.300 Neut % (Auto) 72.6 H Lymph % (Auto) 15.9 L [place] % (Auto) 8.2 Eos % (Auto) 2.7 Baso % (Auto) 0.3 Absolute Neuts (auto) 4.8 Absolute Lymphs (auto) 1.05 Nucleated RBC % 0 PT 14.0 INR 1.1 APTT 82.8 H Discharge Plan Triage Chief Complaint: Dizziness ED Provider: Cristobal Mayo Dx/Rx/DC Orders Prescriptions: No Action finasteride 5 mg tablet 5 mg PO DAILY aspirin [Adult Aspirin Regimen] 81 mg tablet,delayed release (DR/EC) 81 mg PO DAILY atenolol 50 mg tablet 50 mg PO DAILY omeprazole 20 mg capsule,delayed release(DR/EC) 20 mg PO DAILY sertraline 25 mg tablet 25 mg PO DAILY isosorbide dinitrate 30 mg tablet 30 mg PO BID Rx Instructions: allow nitrate-free interval of 12-14 hrs per 24-hr period tamsulosin 0.4 mg capsule 0.4 mg PO QHS cyanocobalamin (vitamin B-12) 1,000 mcg tablet 1,000 mcg PO DAILY Patient Comments: Take 1 tablet by mouth once daily. cholecalciferol (vitamin D3) [Vitamin D3] 50 mcg (2,000 unit) capsule 50 mcg PO DAILY pantoprazole [Protonix] 40 mg tablet,delayed release (DR/EC) 40 mg PO DAILY Qty: 60 1RF cyanocobalamin (vitamin B-12) 1,000 mcg/mL solution Patient Comments: Inject 1 mL intramuscularly one time a week for 30 days, THEN 1 mL every 2 weeks. lisinopril 10 mg tablet 10 mg PO DAILY clopidogrel 75 mg tablet 75 mg PO DAILY Qty: 90 3RF simvastatin 20 mg tablet 20 mg PO QHS Qty: 90 4RF Primary Care Provider: Robel Onofre Referrals: Robel Onofre DO [Primary Care Provider] - Print Language: Slovenian
--- NOTE | 2024-12-14 13:50 | EX.ED.DYSGE1 ---
HPI History of Present Illness Chief Complaint: Dizziness Informant: patient and family Narrative Narrative: Patient here with daughter sent from PCP office Dr. Onofre for evaluation of vertigo symptoms. History of coronary disease with bypass in the past. Reports macular degeneration only 10% vision left. Has been on and off dizzy symptoms for months symptoms worsened yesterday while going to the bathroom. He states felt like room was spinning yesterday. He had evaluation in the office with [facility] fully explained to the right he sat up and threw up. No headache. No recent upper respiratory symptoms or sinus symptoms. Does wear hearing aids. No allergies. Currently resting no symptoms. He ambulates with guidance from his daughter. 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 Dyspnea on exertion Atherosclerosis of [place] coronary artery of [place] heart without angina pectoris Lupus anticoagulant disorder Syncope Spinal stenosis Rheumatic fever Essential (primary) hypertension Hyperlipemia, mixed Home Medications ?Medication ?Instructions ?Recorded ?Last Taken ?Type finasteride 5 mg tablet 5 mg PO DAILY prostate 02/23/18 12/14/24 History aspirin 81 mg tablet,delayed 81 mg PO DAILY blood thinner 08/11/18 12/13/24 History release (Adult Aspirin Regimen) tamsulosin 0.4 mg capsule 0.4 mg PO BID prostate 10/27/19 12/14/24 History atenolol 50 mg tablet 50 mg PO DAILY BLOOD PRESSURE 11/18/19 12/14/24 History clopidogrel 75 mg tablet 75 mg PO DAILY BLOOD THINNER #90 02/07/20 12/14/24 Rx tabs simvastatin 20 mg tablet 20 mg PO QHS cholesterol #90 tabs 11/10/20 12/13/24 Rx cholecalciferol (vitamin D3) 50 50 mcg PO DAILY SUPPLEMENT 06/13/22 12/13/24 History mcg (2,000 unit) capsule (Vitamin D3) omeprazole 20 mg capsule,delayed 20 mg PO DAILY 02/07/23 12/13/24 History release sertraline 25 mg tablet 25 mg PO DAILY 02/06/24 12/13/24 History cyanocobalamin (vitamin B-12) 1,000 mcg IM .COMPLEX 12/14/24 11/30/24 History 1,000 mcg/mL injection solution lisinopril 10 mg tablet 10 mg PO DAILY 12/14/24 12/14/24 History meclizine 12.5 mg tablet 12.5 mg PO TID PRN dizziness #20 12/14/24 Unknown Rx tabs Allergy/AdvReac Type Severity Reaction Status Date / Time No Known Allergies Allergy Verified 12/14/24 12:42 Family History Mother CAD (coronary artery disease) Brother CAD (coronary artery disease) CABG Brother CAD (coronary artery disease) Surgical History Status post bilateral inguinal hernia repair Status post cardiac surgery History of heart artery stent H/O cardiac catheterization History of tonsillectomy 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) Stented coronary artery (10/28/19) H/O coronary artery bypass surgery History of endovascular stent graft for abdominal aortic aneurysm (AAA) History of left heart catheterization Social History Smoking Status: Former smoker how long ago did patient quit smokin years ago alcohol intake: never substance use type: does not use caffeine: Yes Type: coffee Number of servings: 4 ROS ROS ED Constitutional Constitutional ED: Denies chills, fever(s) or sweats ENT ENT ED: Denies sore throat Cardiovascular Cardiovascular: Denies chest pain, leg edema, palpitations or racing heartbeat Respiratory/Chest Respiratory/Chest: Denies cough, dyspnea or dyspnea on exertion Gastrointestinal Gastrointestinal: Reports nausea and vomiting; Denies abdominal pain or diarrhea Genitourinary Genitourinary ED: Denies dysuria, hematuria or urinary frequency Musculoskeletal Musculoskeletal: Denies back pain, extremity pain or neck pain Integumentary Denies rash or wounds Neurologic Neurologic: Reports other Details: Vertical ; Denies headache(s), paresthesias or weakness EXAM Physical Exam Const Vital Signs: 12/14/24 12:40 12/14/24 14:39 12/14/24 14:57 Temperature 97.4 F L 97.4 F L Temperature Source Oral Pulse Rate 52 L 52 L Respiratory Rate 18 18 Blood Pressure 188/86 H 174/92 H 174/92 H Blood Pressure Mean 120 119 119 Pulse Ox 97 97 Oxygen Delivery Method Room Air Positive well nourished and well developed General Appearance ED: well developed and NAD HEENT Reports moist mucous membranes normocephalic and atraumatic Eyes Eyes Narrative: No nystagmus, he reports can see the outline of me during evaluation with light perception which is normal for him. Neck full ROM Chest Wall Chest: Negative for tenderness Resp normal respiratory effort and normal air movement Effort and Inspection: symmetric chest movement; Negative for respiratory distress Cardio regular rate, regular rhythm and no murmurs Peripheral Pulses: pulses 2+ throughout GI normal to inspection, nondistended, normoactive bowel sounds and non-tender Palpation: Negative for guarding or rebound tenderness present Extremity normal to inspection General Extremety ED: Negative for edema or tenderness General Extremity: Negative for edema Neuro oriented x3 and no sensory deficits noted Sensorium / Orientation: awake and alert Skin no rashes or lesions noted and no wounds MDM MDM MDM Narrative Medical decision making narrative: Interventions / MDM: Differential diagnosis: Vertigo, history of coronary disease, history of macular degeneration Diagnosis considered but do not suspect: Intracranial hemorrhage, vertebral spine diagnosis however CT negative. My EKG interpretation: Sinus rhythm 49, no ST changes. Imaging independently reviewed and interpreted by myself: CT angiogram head and neck: Mild plaque noted right internal carotid artery, no other acute findings. External documents reviewed: N/A Test considered but not ordered:N/A ED course: Presenting with vertigo symptoms that worsened overnight. Sent from PCP office. EKG sinus rhythm. Will check labs, CT angiogram head and neck, IV Reglan ordered. Will reevaluate. Symptoms completely resolved on reevaluation he is ambulated to the bathroom with no return of symptoms. At this time with resolution of symptoms do not feel hospitalization is necessary. Prescription for meclizine to use, strict return precautions. Outpatient follow-up. All questions were answered. Re-evaluation: stable Disposition discussed with patient/family/significant other: Patient and daughter Case discussed with consulting clinician: N/A This note was generated with [employer] dictation software. It may contain incorrect words, spelling, and punctuation that were not noted in checking the note before signing. Lab Data Attestation: I reviewed the patient's lab results. Labs: Laboratory Results - last 24 hr 12/14/24 13:24 WBC 6.6 RBC 5.05 Hgb 14.6 Hct 41.5 MCV 82.2 MCH 28.9 MCHC 35.2 RDW Std Deviation 41.1 RDW Coeff of Zoë 13.9 Plt Count 122 L MPV 9.4 Immature Gran % (Auto) 0.300 Neut % (Auto) 72.6 H Lymph % (Auto) 15.9 L [place] % (Auto) 8.2 Eos % (Auto) 2.7 Baso % (Auto) 0.3 Absolute Neuts (auto) 4.8 Absolute Lymphs (auto) 1.05 Nucleated RBC % 0 PT 14.0 INR 1.1 APTT 82.8 H Sodium 137 Potassium 4.0 Chloride 106 Carbon Dioxide 21.1 Anion Gap 10 BUN 17 Creatinine 1.01 Est GFR (MDRD) Non-Af 73 BUN/Creatinine Ratio 16.9 Glucose 112 H Calcium 9.6 Radiography Diagnostic Testing: Clinical Impression(s) from Imaging Studies Head/Neck CTA 12/14/24 13:10 IMPRESSION: Minimal plaque formation at the origin of the right internal carotid artery. Cerebral atrophy. Reading Location: [place] [id number] Discharge Plan Triage Chief Complaint: Dizziness ED Provider: Cristobal Mayo Dx/Rx/DC Orders Clinical Impression: Vertigo, History of macular degeneration Instructions: ED Vertigo, Unspecified Prescriptions: New meclizine 12.5 mg tablet 12.5 mg PO TID PRN (Reason: dizziness) Qty: 20 0RF No Action finasteride 5 mg tablet 5 mg PO DAILY aspirin [Adult Aspirin Regimen] 81 mg tablet,delayed release (DR/EC) 81 mg PO DAILY atenolol 50 mg tablet 50 mg PO DAILY omeprazole 20 mg capsule,delayed release(DR/EC) 20 mg PO DAILY sertraline 25 mg tablet 25 mg PO DAILY tamsulosin 0.4 mg capsule 0.4 mg PO BID cholecalciferol (vitamin D3) [Vitamin D3] 50 mcg (2,000 unit) capsule 50 mcg PO DAILY cyanocobalamin (vitamin B-12) 1,000 mcg/mL solution 1,000 mcg IM .COMPLEX Patient Comments: Inject 1 mL intramuscularly one time a week for 30 days, THEN 1 mL every 2 weeks. Rx Instructions: 1,000 mcg intramuscularly QOWEEK; lisinopril 10 mg tablet 10 mg PO DAILY clopidogrel 75 mg tablet 75 mg PO DAILY Qty: 90 3RF simvastatin 20 mg tablet 20 mg PO QHS Qty: 90 4RF Primary Care Provider: Robel Onofre Referrals: Robel Onofre DO [Primary Care Provider] - 1 Week Activity Restrictions/Additional Instructions: CT angiogram head and neck only mild plaque noted right internal carotid. No other acute findings. This is not causing her symptoms. EKG labs stable. Use meclizine as needed. Follow-up with her doctor. If Symptoms recur or worsens, return to ED for reevaluation. Print Language: Estonian Disposition Disposition: Home, Self Care Discharge Date/Time: 12/14/24 15:01
[2024-12-14 14:12] LABS: Anion Gap 10 (5-15); BUN 17 mg/dL (4-19); BUN/Creat Ratio 16.9 RATIO (10-20); Calcium,Total 9.6 mg/dL (7.6-11.0); Carbon Dioxide 21.1 mmol/L (21.0-32.0); Chloride 106 mmol/L (98-108); Creatinine, Serum 1.01 mg/dL (0.70-1.20); EST Glomerular Filtration Rate 73 (>60); Glucose 112 mg/dL (70-99); Sodium Level 137 mmol/L (133-145)
[2024-12-14 14:39] VITALS: BP 174/92
[2024-12-14 14:57] VITALS: BP 174/92; PULSE 52; RESP 18; TEMP 36.3; O2SAT 97
== END 2024-12-14 15:01 | disposition home or self-care (01) ==
PROVIDERS: Emergency Provider Emergency Medicine; PCP Student in an Organized Health Care Education/Training Program; Visit Provider Emergency Medicine
DX: R42 Dizziness and giddiness (principal); Z87.891 Personal history of nicotine dependence; I25.10 Atherosclerotic heart disease of native coronary artery without angina pectoris; E78.2 Mixed hyperlipidemia; I10 Essential (primary) hypertension; Z95.5 Presence of coronary angioplasty implant and graft; Z79.82 Long term (current) use of aspirin; Z79.02 Long term (current) use of antithrombotics/antiplatelets; Z79.899 Other long term (current) drug therapy; H35.30 Unspecified macular degeneration; G31.9 Degenerative disease of nervous system, unspecified; I65.21 Occlusion and stenosis of right carotid artery
CPT/HCPCS: 70496; 70498; 80048; 85025; 85610; 85730; 93005; 96361; 96374; 99284; Q9967; A4216

== ENCOUNTER 2025-07-01 14:24 | Outpatient (RCR) | payer MEDICARE, SELFPAY ==
[2020-03-09 06:33] VITALS: BMI 29.0
--- NOTE | 2025-07-06 16:18 | HP.SP.EV_ITS ---
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 His daughter was present for the evaluation and she stated that certain foods have recently caused him to choke on several occassions, including vegetables and beans in soup and lettuce. Phi lip wiht PMH of erosive esophagitis, NSTEMI, atherosclerosis fo coronary artery bypass graft(s) without angina pectoris, S/P CABG x3 (09/22/96), stented coronary artery (10/28/19), endovascular stent graft for abdominal aortic aneurysm (AAA), atherosclerosis of [place] coronary artery of [place] heart without angina pectoris, essential HTN, hyperlipemia (mixed). Medications related to this diagnosis: aspirin [Adult Aspirin Regimen] 81 mg tablet,delayed release (DR/EC), atenolol 50 mg tablet, cholecalciferol (vitamin D3) [Vitamin D3] 50 mcg (2,000 unit) capsule, clopidogrel 75 mg tablet, cyanocobalamin (vitamin B-12) 1,000 mcg/mL solution, finasteride 5 mg tablet, lisinopril 10 mg tablet, meclizine 12.5 mg tablet, omeprazole 20 mg capsule,delayed release(DR/EC), sertraline 25 mg tablet, simvastatin 20 mg tablet, tamsulosin 0.4 mg capsule Smoking Status: Never smoker Diagnosis Diagnosis: Mild oropharyngeal dysphagia Pain Is pain an issue with your current prescribed condition?: No Personal Preferred language: Lao Patient Allergies Allergies Allergies: Allergies No Known Allergies Allergy (Verified 03/22/25 14:19) Subjective Dysphagia Symptoms Reported Symptoms/Problems with: Coughing and Choking Current Diet Solids Current Diet: Regular Current Diet Liquids Current Liquids: Thin Objective Dysphagia Administered by Administered by: [employer] SALESPERSON Thin Liquids Administred via: Cup and Straw Oral Transit: WNL Bolus clearance: fully cleared Gagging: No Pharyngeal phase: laryngeal elevation mildly restricted slow initiation Comments: No overt s/s of aspiration with this consistency. Pureed Administered via: Spoon Oral Preparation: WNL Oral Transit: WNL Bolus clearance: fully cleared Pharyngeal phase: laryngeal elevation mildly restricted slow initiation Comments: No overt s/s of aspiration with this consistency. Soft & Bite sized (Mechanical) Oral Preparation: WNL Oral Transit: WNL Bolus clearance: fully cleared Pharyngeal phase: laryngeal elevation mildly restricted slow initiation Comments: No overt s/s of aspiration with this consistency. Regular Oral Preparation: WNL Oral Transit: WNL Bolus clearance: fully cleared Pharyngeal phase: laryngeal elevation mildly restricted slow initiation Patient Report: Pt with dentures so he stated some things take him longer to chew. Comments: No overt s/s of aspiration with this consistency. Swallowing Impairment Contributing Factors to Swallowing Impairment: Mastication Inefficiency and Reduced Laryngeal Excursion Other: Difficulty with mastication on some foods due to dentures Impact Impact on Safety & Functioning: Risk for Aspiration Comments: Risk for aspiration due to reduced hyolaryngeal excursion with all consistencies this date. Patient with no overt s/s during trials this date. Educated patient on safe swallow strategies an diet recommendations. Recommendations Modified Barium Swallow/Cookie Swallow Recommended: No Swallowing Treatment: No Diet Texture Recommendations Solids: Easy to Chew (Level 7) Liquids: Thin (Level 0) Safety Saftey Precautions/Swallowing Recommendations (Check all that Apply): 1 to 1 Distant Supervision, Reduce Distractions, Small Sips & Bites when Eating, Multiple Swallows and Alternate Liquids & Solids Results Swallowing Diagnosis: Oropharyngeal Phase Dysphagia (R13.12) Severity: Mild Subjective Oral Motor Subjective Dentures ill fitting: No Comments Comments: Patient has partial upper and full lower dentures. Objective Oral Motor Oral Status Dentition: Upper Dentures and Lower Dentures Labial Impairment: WNL Observation at Rest: WNL Closure: WNL Pucker: WFL Retraction: WFL Alternating Pucker/Retraction: WFL Involuntary Movement noted: No Labial Comments Comments: Some difficulty with following instructions and mild labial weakness noted. Lingual Impairment: WNL Protrusion: WFL Retraction: WFL Lateralization: WFL Involuntary Movement: No Lingual Comments Comments: Some difficulty with following instructions and mild lingual weakness noted. Jaw Impairment: WNL Opening: WNL Closing: WNL Involuntary Movement: No Oral Motor Comments Comments: Mild weakness noted overall (WFL). Respiratory Status Respiratory Status: Room Air Reference: Neuro-QoL instrument Radiation Oncology Patient Plan Plan Plan: At this time, skilled speech therapy is not recommended for Pt and his daughter were educated on a home exercise program, inclduing oral motor tasks and safe swallow strategies to utilize following this evaluation. ST also recommends an easier to chew diet (IDDSI EC7) to reduce the risk of aspiration. Pt and daughter agreed to this recommendation. Recommendations Treatment Warranted: No Education Patient has Indicated that the Following The Patient has indicated that they have no educational or learning abilities that may effect their care.: Yes Patient Instruction Patient Education: Home Exercise Program Person Taught: Patient and Family Teaching Method: Discussion Response to teaching: Verbalize Understanding
== END 2025-07-01 19:00 | disposition home or self-care (01) ==
LOC: SP 14:24
PROVIDERS: PCP Student in an Organized Health Care Education/Training Program; Referring Provider Student in an Organized Health Care Education/Training Program; Visit Provider Student in an Organized Health Care Education/Training Program
DX: R13.11 Dysphagia, oral phase (principal)
CPT/HCPCS: 92610

== ENCOUNTER 2025-07-18 23:45 | Inpatient (IN) | payer MEDICARE, SELFPAY ==
[2020-03-09 06:33] VITALS: BMI 29.0
[2025-07-18 23:45] VITALS: BP 214/117; PULSE 105; PULSE 110; RESP 12; RESP 32; RESP 41; TEMP 36.1; O2SAT 100; BMI 31.0
[2025-07-18 23:49] VITALS: BP 214/117; PULSE 101; RESP 25; TEMP 36.1; O2SAT 100
[2025-07-19] VITALS (27 sets, daily range): BP systolic 121–173; BP diastolic 48–111; PULSE 56–100; RESP 12–28; TEMP 36.3–36.8; O2SAT 3–99; BMI 30.2
--- OUTSIDE RECORDS SUMMARY | 2025-07-19 00:08 | XMS RPT_ITS | CCD ---
Author Organization [facility] Inform ion [facility] Care Team Providers Care Inspector Firearms Name Role Phone Tony, Harumi Y Unavailable Unavailable Teodora RN, Dede Ewing Unavailable Unavailaneesh Middleton RN, Asida A Unavailable Unavailable Britney Jimenez Unavailable Unavailable Emi BAKER, Saida A Unavailable Unavailable Mandeep Bernstein DO Unavailable SAMUEL Araiza, Dede Ewing Unavailable UnavailAnuradha Gaytan Unavailable Unavailable Britney Jimenez Unavailable Unavailable John Bernstein Primary Care Provider Robel Onofre Primary Care Provider Robel Onofre DO Primary Care Provider Dr. Robel Onofre Primary Care Provider Dr. Robel Onofre Referring Provider Roof PRODUCT RESPONSIBILITY LIAISON, PRODUCT RESPONSIBILITY LIAISON-C John Murphy Attending Provider Robel Onofre DO Primary Care Provider Robel Onofre DO Primary Care Provider Dr. Robel Onofre Primary Care Provider Dr. Miladys Roca Emergency Provider Friend, Dr. Byers Attending Provider Dr. Rico Holliday Admit Provider Dr. Rico Holliday Attending Provider Dr. Rico Holliday Other Provider Dr. Mikaela Beck Attending Provider Dr. Mikaela Beck Other Provider FLORENCIO TESFAYE Admitting Unavailable FLORENCIO TESFAYE Attending Unavailable ONOFRE, ROBEL L Primary Care Unavailable Onofre DORobel L Primary Care Provider Onofre DORobel L Primary Care Provider Foote DRILLER HAND.MACHINIST APPRENTICE, Cat Argentina Unavailable Cristóbal DRILLER HAND.MACHINIST APPRENTICE, Bessie Unavailable Foote DRILLER HAND.MACHINIST APPRENTICE, Cat Elaine Unavailable Kingston OROZCO, Dr. Huston Primary Care Provider Maria Esther OROZCO, Dr. Jain Emergency Provider Elías DRILLER HAND.MACHINIST APPRENTICE, Una Duvall Unavailable Maria Esther OROZCO, Dr. Jain Attending Provider Kingston OROZCO, Dr. Huston Referring Provider Samir CAMPA, Dr. Berry Attending Provider ASHA HERNANDEZ Attending Unavailable ONOFRE, ROBEL Primary Care Unavailable ONOFRE, ROBEL Attending Unavailable ONOFRE, ROBEL Primary Care Unavailable ONOFRE, ROBEL Attending Unavailable ONOFRE, ROBEL Primary Care Unavailable ONOFRE, ROBEL Referring Unavailable ONOFRE, ROBEL Primary Care Unavailable ONOFRE, ROBEL Referring Unavailable ONOFRE, ROBEL Primary Care Unavailable ONOFRE, ROBEL Attending Unavailable ONOFRE, ROBEL Primary Care Unavailable ONOFRE, ROBLE Referring Unavailable ONOFRE, ROBEL Primary Care Unavailable ONOFRE, ROBEL L Referring Unavailable ONOFRE, ROBEL L Primary Care Unavailable Jamal Dawson Attending Unavailable Onofre, Robel Primary Care Unavailable Onofre, Robel Referring Unavailable Onofre, Robel Primary Care Unavailable Cristobal Mayo Attending Unavailable Onofre, Robel Primary Care Unavailable Onofre, Robel Attending Unavailable Onofre, Robel Referring Unavailable Medications Current Medications Medication Drug Class(es) Dates Sig (Normalized) Sig (Original) aspirin 81 mg delayed release oral tablet (20 sources) Platelet Aggregation Inhibitor, Nonsteroidal Anti-inflammatory Drug Start: 08-11-2018 take 1 tablet by mouth once daily Aspirin (Adult Aspirin Regimen) 81 mg tablet,delayed release (DR/EC) Active 81 mg PO DAILY August 11, 2018 1:00am blood thinner Start: 11-27-2017 End: 08-11-2018 take 1 tablet by mouth twice daily at mealtime Aspirin 325 MG tablet Discontinued 325 mg PO TWICE DAILY WITH MEALS 30 0 November 27, 2017 12:00am August 11, 2018 4:43pm Start: 12-12-2010 End: 11-27-2017 take 1 tablet by mouth once daily Aspirin 81 MG tablet Discontinued 81 mg PO DAILY@0800 November 12, 2017 12:00am November 27, 2017 9:35am BLOOD THINNER Start: 12-12-2010 take 1 tablet by triston th once daily ASPIRIN 81 MG TABS One tablet by mouth daily ASPIRIN [id number] Saida Middleton RN Start: 04-17-2007 End: 07-03-2022 take 1 tablet by mouth once daily Aspirin 81 mg ORAL Tab Take one(1) tablet daily. 0 04/17/2007 07/03/2022 Discontinued Comment on above: Take one(1) tablet d jony. atenolol 50 mg oral tablet (20 sources) beta-Adrenergic Kenan Start: 11-18-2019 End: 06-30-2024 take 1 tablet by mouth once daily Atenolol 50 mg tablet Active 50 mg PO DAILY November 18, 2019 12:00am BLOOD PRESSURE Start: 11-12-2017 End: 11-18-2019 take 1 tablet by mouth twice daily Atenolol 25 mg tablet Discontinued 25 mg PO TWICE A DAY 180 3 October 21, 2018 4:10pm November 18, 2019 10:29am BP Start: 11-11-2011 End: 10-27-2017 take 1 tablet by mouth twice daily Atenolol 25 MG tablet Discontinued 25 mg PO TWICE A DAY January 05, 2017 12:00am October 27, 2017 5:43pm Start: 12-12-2010 take 1 tablet by triston th once daily ATENOLOL 25 MG TABS One tablet by mouth daily ATENOLOL [id number] Anuradha Hickey Comment on above: Take 1 tablet by triston th once daily. cholecalciferol 0.05 mg oral capsule (20 sources) Vitamin D Start: take 1 capsule by mouth once daily Cholecalciferol, Vitamin D3, (VITAMIN D-3) 50 mcg (2,000 unit) cap Indications: Vitamin D deficiency Take 1 capsule by mouth once daily. 90 capsule 3 11/24/2024 Active Start: 06-13-2022 take 1 capsule by [facility] once daily Cholecalciferol (Vitamin D3) (Vitamin D3) 50 mcg (2,000 unit) capsule Active 50 ug PO DAILY June 13, 2022 12:00am SUPPLEMENT Start: 02-01-2022 End: 11-22-2024 take 1 capsule by mouth once daily Cholecalciferol, Vitamin D3, (VITAMIN D-3) 50 mcg (2,000 unit) cap Indications: Vitamin D deficiency Take 1 capsule by mouth once daily. 90 capsule 3 11/25/2023 11/22/2024 Discontinued Comment on above: Take 1 capsule by [facility] once daily. finasteride 5 mg oral tablet (20 sources) 5-alpha Reductase Inhibitor Start: 02-24-20 End: 10-08-19 take 1 tablet by mouth once daily Finasteride 5 mg tablet Active 5 mg PO DAILY February 23, 2018 12:00am prostate Comment on above: Take 1 tablet by [facility] once daily. iv contrast (will be provided with radiology test) (1 source) Start: 12-28-19 End: 12-29-19 iv contrast (will be provided with radiology test) Indications: Right groin pain CT ABD/PEL -Inject, intravenously, once for 1 dose.No IV access, insert saline lock prior to the beginning of sedation, infusion, injection of imaging exam. Discontinue saline lock post exam. If Pt. has a central line or IVAD, may access for administration according to line specific nursing protocol. Once exam is complete flush line and de-access according to line specific nursing protocol in the CT contrast administration guidelines link. 1 Each 0 12/27/2021 12/28/2021 Active Comment on above: CT ABD/PEL -Inject, intravenously, once for 1 dose.No IV access, insert saline lock prior to the beginning of sedation, infusion, injection of imaging exam. Discontinue saline lock post exam. If Pt. has a central line or IVAD, may access for administration according to line specific nursing protocol. Once exam is complete flush line and de-access according to line specific nursing protocol in the CT contrast administration guidelines link. lisinopril 10 mg oral tablet (20 sources) Angiotensin Converting Enzyme Inhibitor Start: 12-15-19 take 1 tablet by mouth once daily Lisinopril 10 mg tablet Active 10 mg PO DAILY December 14, 2024 12:00am Start: 12-22-2023 End: 12-09-2024 take 1 tablet by mouth once daily lisinopril (ZESTRIL) 10 mg tablet Take 1 tablet by mouth once daily. 90 tablet 3 12/09/2024 Active Start: 10-10-2021 End: 12-14-2024 take 1 tablet by mouth once daily Lisinopril 5 mg tablet Discontinued 5 mg PO DAILY June 13, 2022 12:00am December 14, 2024 1:13pm BLOOD PRESSURE Start: 06-06-2020 take 1 tablet by triston th once daily lisinopril (PRINIVIL;ZESTRIL) 5 MG tablet Take 5 mg by mouth daily 0 06/06/2020 Active Start: 04-14-2020 End: 04-14-2020 take 1 tablet by mouth once daily Lisinopril 10 mg tablet Discontinued 10 mg PO DAILY April 14, 2020 8:58am April 14, 2020 9:16am Start: 03-16-2020 End: 04-14-2020 take 5 mg by mouth once daily Lisinopril 10 mg tablet Discontinued 5 mg PO DAILY 1 0 March 16, 2020 12:00am April 14, 2020 9:00am Start: 03-16-2020 End: 04-14-2020 take 5 mg by mouth once daily Lisinopril Discontinued 5 MG PO DAILY 1 March 16, 2020 12:00am April 14, 2020 9:00am Start: 02-17-2020 End: 03-16-2020 take 10 mg by mouth once daily Lisinopril 20 mg tablet Discontinued 10 mg PO DAILY 180 3 February 17, 2020 4:31pm March 16, 2020 3:42pm BP Start: 02-17-2020 End: 03-16-2020 take 10 mg by mouth once daily Lisinopril Discontinued 10 MG PO DAILY 180 February 17, 2020 4:31pm March 16, 2020 3:42pm Start: 01-10-2020 End: 02-17-2020 take 1 tablet by mouth once daily Lisinopril 20 mg tablet Discontinued 20 mg PO DAILY 180 3 January 10, 2020 5:08pm February 17, 2020 4:31pm BP Start: 11-12-2017 End: 01-10-2020 take 1 tablet by mouth twice daily Lisinopril 20 mg tablet Discontinued 20 mg PO TWICE A DAY 180 3 January 04, 2020 9:35am January 10, 2020 5:09pm BP Start: 01-05-2017 End: 08-12-2017 take 1 tablet by mouth once daily Lisinopril (Zestril) 20 MG tablet Discontinued 20 mg PO DAILY January 05, 2017 12:00am August 12, 2017 3:09pm Start: 07-03-2015 End: 10-27-2017 take 1 tablet by mouth twice daily Lisinopril 20 MG tablet Discontinued 20 mg PO TWICE A DAY August 12, 2017 3:07pm October 27, 2017 5:43pm Start: 07-03-2015 take 1 tablet by triston th once daily LISINOPRIL 10 MG TABS One tablet by mouth daily LISINOPRIL [id number] Florencio Ramires MD Start: 07-03-2015 take 1 tablet by triston th twice daily LISINOPRIL 10 MG TABS One tablet by mouth twice daily LISINOPRIL [id number] Saida Middleton RN Start: 01-03-2014 End: 07-03-2015 take 1 tablet by mouth once daily LISINOPRIL 20 MG TABS One tablet by mouth daily LISINOPRIL [id number] Florencio Ramires MD Comment on above: Take 1 tablet by triston th once daily. meclizine hydrochloride 12.5 mg oral tablet (7 sources) Antiemetic Start: 12-15-19 25 take 1 tablet by mouth every eight hours as needed meclizine (ANTIVERT) 12.5 mg tab Take 1 tablet by mouth three times a day as needed (for dizziness.). 20 tablet 12/21/2024 Active pantoprazole 40 mg delayed release oral tablet (20 sources) Proton Pump Inhibitor Start: 12-28-19 25 take 1 tablet by mouth once daily pantoprazole DR (PROTONIX) 40 mg tablet Indications: Gastroesophageal ref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 hemorrhage Take 1 tablet by mouth once daily. 30 minutes before eating. 90 tablet 1 12/27/2024 Active Start: 06-14-2022 End: 12-14-2024 take 1 tablet by mouth once daily Pantoprazole (Protonix) 40 mg tablet,delayed release (DR/EC) Discontinued 40 mg PO DAILY 60 1 June 14, 2022 12:00am December 14, 2024 2:12pm Comment on above: Take 40 mg by mouth once daily. Take 1 tablet by triston th once daily. sertraline 25 mg oral tablet (20 sources) Serotonin Reuptake Inhibitor Start: 02-04-2024 End: 09-13-2025 take 1 tablet by mouth once daily Sertraline 25 mg tablet Active 25 mg PO DAILY February 06, 2024 12:00am Start: 12-05-2020 End: 06-03-2022 take 1 tablet by mouth once daily at bedtime sertraline (ZOLOFT) 25 mg tablet Indications: Dysthymia Take 1 tablet by mouth daily at bedtime. 90 tablet 1 12/05/2020 06/03/2022 Discontinued Comment on above: Take 1 tablet by triston th daily at bedtime. tamsulosin hydrochloride 0.4 mg oral capsule (20 sources) alpha-Adrenergic Kenan Start: End: take 2 capsules by mouth once daily tamsulosin (FLOMAX) 0.4 mg Take 2 capsules by mouth once daily. 180 capsule 3 11/08/2024 Active Start: 07-11-2020 take 2 capsules by m outh once daily tamsulosin (FLOMAX) 0.4 MG capsule TAKE 2 CAPSULES BY MOUTH ONCE DAILY 0 07/11/2020 Active Start: 10-27-2019 take 1 capsule by mo uth twice daily Tamsulosin 0.4 mg capsule Active 0.4 mg PO TWICE A DAY October 27, 2019 1:00am prostate Start: 05-29-2017 FLOMAX 0.4 MG CAPS 1 tab daily TAMSULOSIN HCL [id number] Mirian Ortiz DRILLER HAND-MACHINIST APPRENTICE Start: 05-31-2014 End: 07-03-2015 take 1 tablet by mouth once daily TAMSULOSIN HCL 0.4 MG CAPS One tablet by mouth daily TAMSULOSIN HCL [id number] Florencio Ramires MD Comment on above: Take 2 capsules by m outh once daily. triamcinolone acetonide 1 mg/ml topical cream (20 sources) Corticosteroid Start: 2020 End: 2022 triamcinolone acetonide (KENALOG) 0.1 % cream Indications: Other eczema Apply 1 application to affected area two times a day. For eczema, Apply sparingly to area for rash/itching. 453 g 1 07/25/2023 Active Comment on above: Apply 1 application to affected area twice daily. For eczema, Apply sparingly to area for rash/itching. Apply 1 application to affected area two times a day. For eczema, Apply sparingly to area for rash/itching. vitamin b12 1 mg/ml injectable solution (20 sources) Vitamin B12 Start: 2023 End: 2025 inject 1 mL by intramuscular injection every week, then inject 1 mL by intramuscular injection every other week cyanocobalamin 1,000 mcg/mL Indications: Vitamin B12 deficiency INJECT 1 ML INTRAMUSCULARLY 1 TIME PER WEEK FOR 30 DAYS THEN 1 ML EVERY 2 (TWO) WEEKS 30 mL 1 02/11/2025 Active Start: 02-01-2022 End: 12-14-2024 take 1 tablet by mouth once daily Cyanocobalamin (Vitamin B-12) 1,000 mcg tablet Discontinued 1000 ug PO DAILY June 13, 2022 12:00am December 14, 2024 2:12pm SUPPLEMENT Comment on above: Take 1 tablet by triston once daily. Vitamins A,C,A-Ounb-Rfkluy (Preservision Areds) 14,[phone] mcxy-tm-tawt capsule (1 source) Start: 2021 take 1 capsule by mouth twice daily Vitamins A,C,A-Bzsg-Mqgmcw (Preservision Areds) [phone] xefd-gv-iqow capsule Active 1 CAP PO TWICE A DAY 2021 11:07am Completed/Discontinued Medications Medication Drug Class(es) Dates Sig (Normalized) Sig (Original) acetaminophen 325 mg / oxyCODONE hydrochloride 5 mg oral tablet (6 sources) Opioid Agonist Start: 06-13-2022 take 1 tablet by mouth every six hours Oxycodone-Acetami nophen Active 1 TABLET PO EVERY 6 HOURS June 13, 2022 12:00am Start: 06-12-2022 End: 02-07-2023 Oxycodone-Acetaminophen 5-32 5 mg tablet Discontinued 1 {tbl} PO EVERY 6 HOURS as needed for Pain June 13, 2022 12:00am February 07, 2023 1:24pm Comment on above: Take 1 tablet by triston th every 6 hours as needed for up to 5 days. [id number] actuat albuterol 0.09 mg/actuat metered dose inhaler (9 sources) beta2-Adrenergic Agonist Start: 03-30-20 End: 02-02-20 22 take 2 puff(s) by inhalation every four hours as needed for wheezing albuterol HFA (VENTOLIN HFA) 90 mcg/actuation inhaler Indications: WYATT (dyspnea on exertion) , Cough Inhale 2 Puffs as instructed every 4 hours as needed for wheezing/shortness of breath. 18 g 1 03/30/2021 02/01/2022 Discontinued Comment on above: Inhale 2 Puffs as in structed every 4 hours as needed for wheezing/shortness of breath. amLODIPine 5 mg oral tablet (20 sources) Dihydropyridine Calcium Channel Kenan Start: 10-27-19 End: 02-08-20 23 take 1 tablet by mouth once daily Amlodipine 5 mg tablet Discontinued 5 mg PO DAILY 90 4 November 12, 2019 11:27am June 13, 2022 6:56pm bp Start: 11-12-2017 End: 03-25-2019 take 1 tablet by mouth once daily Amlodipine 5 mg tablet Discontinued 5 mg PO DAILY 90 3 November 05, 2018 9:26am March 25, 2019 11:11am BP Start: 05-31-2014 End: 10-27-2017 take 1 tablet by mouth once daily Amlodipine 5 MG tablet Discontinued 5 mg PO DAILY January 05, 2017 12:00am October 27, 2017 5:43pm Comment on above: Take 1 tablet by triston th once daily. ceramides 1,3,6-11(CERAVE TOPICAL CREAM) (13 sources) Start: 08-01-2009 End: 05-31-2022 ceramides 1,3,6-11(CERAVE TOPICAL CREAM) Indications: Xerosis cutis , Unspecified pruritic disorder Apply to dry skin areas and psoriasis/eczema areas of hands bid to qid and prn as directed and tolerated. stock size 12 08/01/2009 05/31/2022 Discontinued Start: 08-01-2009 ceramides 1,3, 6-11(CERAVE TOPICAL CREAM) Indications: Xerosis cutis , Unspecified pruritic disorder Apply to dry skin areas and psoriasis/eczema areas of hands bid to qid and prn as directed and tolerated. stock size 12 08/01/2009 Active Comment on above: Apply to dry skin ar eas and psoriasis/eczema areas of hands bid to qid and prn as directed and tolerated. clobetasol propionate 0.0005 mg/mg topical ointment (13 sources) Corticosteroid Start: 012 End: clobetasol 0.05 % ointment Indications: Lichenification and lichen simplex chronicus , Neurodermatitis, localized , Nummular eczema Apply selectively to dermatitis and/or psoriasis red scaling patch//plaque selectively on lower leg calf once to twice per day (qday to bid) until clear (up to a maximum of 4 to 6 wks if needed) and then stop or taper off as able. Can then substitute a bland moisturizer cream such as CeraVe cream twice per day as able. 15 g 2 07/21/2012 05/31/2022 Discontinued Comment on above: Apply selectively to dermatitis and/or psoriasis red scaling patch//plaque selectively on lower leg calf once to twice per day (qday to bid) until clear (up to a maximum of 4 to 6 wks if needed) and then stop or taper off as able. Can then substitute a bland moisturizer cream such as CeraVe cream twice per day as able. clopidogrel 75 mg oral tablet (20 sources) P2Y12 Platelet Inhibitor Start: 016 End: take 1 tablet by mouth once daily Clopidogrel 75 mg tablet Discontinued 75 mg PO DAILY 90 October 29, 2019 11:31am February 07, 2020 11:53am BLOOD THINNER Comment on above: Take 1 tablet by triston once daily. docusate sodium 50 mg / sennosides, fpc 8.6 mg oral tablet (5 sources) Start: 018 End: Sennosides-Docusate Sodium 1 TABLET tablet Discontinued 2 {tbl} PO TWICE A DAY 20 November 27, 2017 12:00am February 23, 2018 3:09pm Take until first bowel movement, then as needed Start: 11-27-2017 End: 02-23-2018 Sennosides-Docusate Sodium D iscontinued 2 TABLET PO TWICE A DAY November 27, 2017 12:00am February 23, 2018 3:09pm Take until first bowel movement, then as needed EZETIMIBE-SIMVASTATIN (8 sources) HMG-CoA Reductase Inhibitor, Dietary Cholesterol Absorption Inhibitor Start: 05-24-2013 take 1 tablet by mouth once daily VYTORIN 10-20 MG TABS One tablet by mouth daily EZETIMIBE-SIMVASTATIN [id number] Florencio Ramires MD Start: 05-24-2013 take 1 tablet by triston th once daily VYTORIN 10-20 MG TABS One tablet by mout h daily EZETIMIBE-SIMVASTATIN [id number] Florencio Ramires MD Start: 05-24-2013 take 1 tablet by triston th once daily VYTORIN 10-20 MG TABS One tablet by mout h daily EZETIMIBE-SIMVASTATIN [id number] Florencio Ramires MD hydroCHLOROthiazide 12.5 mg oral capsule (20 sources) Thiazide Diuretic Start: 04-03-2022 End: 02-06-2024 take 1 capsule by mouth once daily Hydrochlorothiazide 12.5 mg capsule Discontinued 12.5 mg PO DAILY June 13, 2022 12:00am February 06, 2024 8:56am Start: 02-12-2021 take 1 capsule by mo uth once daily hydroCHLOROthiazide 12.5 mg capsule Take 1 capsule by mouth once daily. 90 capsule 3 02/12/2021 Active Start: 10-29-2019 End: 04-14-2020 take 1 capsule by mouth once daily Hydrochlorothiazide 12.5 mg capsule Discontinued 12.5 mg PO DAILY 90 3 November 25, 2019 10:37am April 14, 2020 8:59am Comment on above: Take 1 capsule by mo uth once daily. ibuprofen 200 mg oral tablet (20 sources) Nonsteroidal Anti-inflammatory Drug Start: 7 End: 7 take 1 tablet by mouth three times daily Ibuprofen 200 MG tablet Discontinued 200 mg PO THREE TIMES A DAY January 05, 2017 12:00am August 12, 2017 3:08pm Start: 05-31-2014 take 2 tablets by mo uth twice daily IBUPROFEN 200 MG TABS Two tablets by mouth twice daily IBUPROFEN [id number] Saida Middleton RN 24 hr isosorbide mononitrate 30 mg extended release oral tablet (20 sources) Nitrate Vasodilator Start: 10-29-2019 End: 12-22-2023 take 1 tablet by mouth once daily, then take 1 tablet by mouth every twenty-four hours Isosorbide Mononitrate 30 mg tablet extended release 24 hr Discontinued 30 mg PO DAILY 90 3 November 25, 2019 10:37am April 14, 2020 8:59am Start: 04-03-2017 ISOSORBIDE MON ONITRATE 10 MG TABS 1/2 tab twice a day ISOSORBIDE MONONITRATE [id number] Scot D Bernstein DO Start: 11-11-2011 take 1 tablet by triston th twice daily ISOSORBIDE MONONITRATE 10 MG TABS One half Tablet by mouth twice daily ISOSORBIDE MONONITRATE [id number] Florencio Ramires MD Comment on above: Take 1 tablet by triston th once daily. isosorbide dinitrate 30 mg oral tablet (12 sources) Nitrate Vasodilator Start: End: take 1 tablet by mouth twice daily Isosorbide Dinitrate 30 mg tablet Discontinued 30 mg PO TWICE A DAY February 06, 2024 12:00am December 14, 2024 2:12pm allow nitrate-free interval of 12-14 hrs per 24-hr period Start: 11-12-2017 End: 02-23-2018 take 1 tablet by mouth twice daily Isosorbide Dinitrate 10 MG tablet Discontinued 10 mg PO TWICE A DAY November 12, 2017 12:00am February 23, 2018 3:16pm BP Start: 01-05-2017 End: 10-27-2017 Isosorbide Dinitrate 10 MG t ablet Discontinued 5 mg PO TWICE A DAY January 05, 2017 12:00am October 27, 2017 5:43pm Start: 01-05-2017 End: 10-27-2017 take 5 mg by mouth twice daily Isosorbide Dinitrate Di scontinued 5 MG PO TWICE A DAY January 05, 2017 12:00am October 27, 2017 5:43pm lansoprazole 15 mg delayed release oral capsule (10 sources) Proton Pump Inhibitor Start: 07-17-2021 End: 06-14-2022 take 1 capsule by mouth at bedtime Lansoprazole 15 mg Capsule,Delayed Release(Dr/Ec) Discontinued 15 mg PO AT BEDTIME July 17, 2021 1:00am June 14, 2022 5:56pm GERD Start: 04-14-2020 End: 2021 take 1 capsule by mouth once daily Lansoprazole 15 mg capsule,delayed release(DR/EC) Discontinued 15 mg PO DAILY April 14, 2020 12:00am 2021 11:06am MULTIPLE VITAMINS-MINERALS (1 source) Start: 04-03-2017 PRESERVISION A REDS CAPS one tab twice a day MULTIPLE VITAMINS-MINERALS [id number] Scot D Bernstein DO MULTIPLE VITAMINS-MINERALS (1 source) Start: 05-12-2018 PRESERVISION A REDS 2+MULTI VIT CAPS twice a day MULTIPLE VITAMINS-MINERALS [id number] Scot D Bernstein DO 24 hr nitroglycerin 0.1 mg/hr transdermal system (20 sources) Nitrate Vasodilator Start: 12-12-2010 End: 11-11-2011 NITRO-DUR 0.1 MG/HR PT24 Apply every morning & remove at night NITROGLYCERIN [id number] Reinaldo Diaz MD Start: 12-12-2010 NITROGLYCERIN 0.4 MG SUBL 1 tablet under the tongue every 5 minutes times 3 as needed for chest pain. NITROGLYCERIN [id number] Jennifer Tomlin RN Start: 12-12-2010 End: 11-11-2011 NITRO-DUR 0.1 MG/HR PT24 Tammi ly every morning & remove at night NITROGLYCERIN [id number] Reinaldo Diaz MD Start: 12-12-2010 NITRO-DUR 0.1 MG/HR PT24 Apply every morning & remove at night NITROGLYCERIN [id number] Anuradha Hickey [id number] ETHYL ESTERS (20 sources) Start: 12-02-2011 take 2 capsules by mouth twice daily LOVAZA 1 GM CAPS Two capsules by mouth twice daily [id number] ETHYL ESTERS [id number] Jennifer Tomlin RN Start: 12-02-2011 End: 11-11-2012 take 2 capsules by mouth twice daily LOVAZA 1 GM CAPS Two capsules by mouth twice daily [id number] ETHYL ESTERS [id number] Reinaldo Diaz MD Start: 12-02-2011 End: 11-11-2012 take 2 capsules by mouth twice daily LOVAZA 1 GM CAPS Two capsules by mouth twice daily [id number] ETHYL ESTERS [id number] Jennifer Tomlin RN Start: 12-02-2011 take 2 capsules by m [facility] twice daily LOVAZA 1 GM CAPS Two capsules by mouth twice daily [id number] ETHYL ESTERS [id number] Jennifer Tomlin RN Start: 12-02-2011 End: 11-11-2012 take 2 capsules by mouth twice daily LOVAZA 1 GM CAPS Two capsules by mouth twice daily [id number] ETHYL ESTERS [id number] Reinaldo Diaz MD Start: 12-12-2010 take 1 tablet by triston th twice daily LOVAZA 1 GM CAPS One tablet by mouth twice daily [id number] ETHYL ESTERS [id number] Anuradha Hickey Start: 12-12-2010 take 1 tablet by triston twice daily LOVAZA 1 GM CAPS One tablet by mouth twice daily [id number]-[id number] ETHYL ESTERS [id number] Anuradha Hickey Start: 12-12-2010 take 1 tablet by triston twice daily LOVAZA 1 GM CAPS One tablet by mouth twice daily [id number] ETHYL ESTERS [id number] Anuradha Hickey omeprazole 20 mg delayed release oral capsule (20 sources) Proton Pump Inhibitor Start: 04-03-2017 OMEPRAZO LE 20 MG TBEC one tab a day OMEPRAZOLE [id number] Mandeep Bernstein DO Start: 12-12-2010 End: 12-27-2024 take 1 capsule by mouth once daily Omeprazole 20 MG capsule Discontinued 20 mg PO DAILY November 12, 2017 12:00am April 14, 2020 9:00am 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 Take one(1) tablet daily. oxyCODONE hydrochloride 5 mg oral tablet (5 sources) Opioid Agonist Start: 11-28-19 18 End: 02-24-20 18 take 5-10 mg by mouth every four hours as needed for pain Oxycodone 5 MG tablet Discontinued 5 - 10 mg PO EVERY 4 HOURS NEEDED as needed for Mod-Severe Pain (4-1010) 60 5 0 November 27, 2017 12:00am February 23, 2018 3:09pm Presence of left artificial hip joint pravastatin sodium 40 mg oral tablet (16 sources) HMG-CoA Reductase Inhibitor Start: 12-13-19 11 End: 05-24-20 13 take 1 tablet by mouth at bedtime PRAVACHOL 40 MG TABS One tablet by mouth at bedtime. PRAVASTATIN SODIUM [id number] Florencio Ramires MD ramipril 10 mg oral tablet (20 sources) Angiotensin Converting Enzyme Inhibitor Start: 11-12-19 13 End: 01-04-20 14 take 1 tablet by mouth twice daily ALTACE 10 MG CAPS One tablet by mouth twice daily RAMIPRIL [id number] Reinaldo Diaz MD Start: 11-11-2012 End: 01-03-2014 take 1 tablet by mouth twice daily ALTACE 10 MG CAPS One tablet by mouth twice daily RAMIPRIL [id number] Reinaldo Diaz MD Start: 05-25-2012 take 1 tablet by triston th twice daily ALTACE 5 MG CAPS One tablet by mouth twice daily RAMIPRIL [id number] Reinaldo Diaz MD Start: 11-11-2011 take 1 tablet by triston th twice daily ALTACE 5 MG CAPS One tablet by mouth twice daily RAMIPRIL [id number] Reinaldo Diaz MD Start: 12-12-2010 take 1 tablet by triston th twice daily ALTACE 2.5 MG CAPS One tablet by mouth twice daily RAMIPRIL [id number] Anuradha Hickey Start: 12-12-2010 take 1 tablet by triston th twice daily ALTACE 2.5 MG CAPS One tablet by mouth twice daily RAMIPRIL [id number] Anuradha Hickey rosuvastatin calcium 10 mg oral tablet (8 sources) HMG-CoA Reductase Inhibitor Start: 05-28-2013 take 1 tablet by mouth at bedtime CRESTOR 10 MG TABS One tablet by mouth at bedtime. ROSUVASTATIN CALCIUM [id number] Florencio Ramires MD simvastatin 20 mg oral tablet (20 sources) HMG-CoA Reductase Inhibitor Start: 10-27-2019 End: 12-27-2024 take 1 tablet by mouth at bedtime Simvastatin 20 mg tablet Discontinued 20 mg PO AT BEDTIME 90 4 November 12, 2019 11:27am November 10, 2020 1:03pm cholesterol Start: 11-12-2017 End: 10-30-2018 take 1 tablet by mouth at bedtime Simvastatin 20 MG tablet Discontinued 20 mg PO AT BEDTIME November 12, 2017 12:00am October 30, 2018 5:32pm CHOLESTEROL Start: 08-12-2017 End: 10-27-2017 Simvastatin 40 MG tablet Discontinued 20 mg PO AT BEDTIME August 12, 2017 3:06pm October 27, 2017 5:43pm Start: 08-12-2017 End: 10-27-2017 take 20 mg by mouth at bedtime Simvastatin Discontinue d 20 MG PO AT BEDTIME August 12, 2017 3:06pm October 27, 2017 5:43pm Start: 04-03-2017 SIMVASTATIN 40 MG TABS 1/2 tab at bedtime SIMVASTATIN [id number] Scot Bekah Bernstein DO Start: 06-04-2013 End: 08-12-2017 take 1 tablet by mouth at bedtime Simvastatin 40 MG tablet Discontinued 40 mg PO AT BEDTIME January 05, 2017 12:00am August 12, 2017 3:09pm Comment on above: Take 1 tablet by triston th daily at bedtime. sucralfate 1000 mg oral tablet (20 sources) Aluminum Complex Start: 06-15-2022 End: 12-22-2023 take 1 tablet by mouth every six hours Sucralfate (Carafate) 1 gram tablet Discontinued 1 g PO EVERY 6 HOURS 120 1 June 15, 2022 12:00am February 07, 2023 1:24pm Crush tablets and placed in liquid to make slurry to take Comment on above: TAKE 1 TABLET BY TRISTON TH EVERY [address] IN LIQUID TO MAKE SLURRY TO TAKE Turmeric-Turmeric Root Extract (3 sources) Start: 10-27-2019 End: 04-14-2020 take 500 mg by mouth twice daily Turmeric-Turmeric Root Extract Discontinued 500 MG PO TWICE A DAY October 27, 2019 7:08pm April 14, 2020 9:00am Start: 10-27-2019 End: 04-14-2020 take 500 mg by mouth twice daily Turmeric-Turmeric Root Extract Discontinued 500 MG PO TWICE A DAY October 27, 2019 1:00am April 14, 2020 9:00am Turmeric-Turmeric Root Extract 1 EACH capsule (2 sources) Start: 10-27-2019 End: 04-14-2020 take 1 capsule by mouth twice daily Turmeric-Turmeric Root Extract 1 EACH capsule Discontinued 500 mg PO TWICE A DAY October 27, 2019 1:00am April 14, 2020 9:00am supplement Start: 10-27-2019 End: 04-14-2020 take 1 capsule by mouth twice daily Turmeric-Turmeric Root Extract 1 EACH capsule Discontinued 500 mg PO TWICE A DAY October 27, 2019 1:00am April 14, 2020 9:00am vit C/E/Zn/coppr/lutein/zeax an (PRESERVISION AREDS 2 ORAL) (17 sources) End: 06-12-2022 vit C/E/Zn/coppr/lutein/zeax an (PRESERVISION AREDS 2 ORAL) Take 2 tablets by mouth twice daily. 0 06/12/2022 Discontinued vit C/E/Zn/coppr /lutein/zeaxan (PRESERVISION AREDS 2 ORAL) Take 2 tablets by mouth twice daily. 0 Active Comment on above: Take 2 tablets by mo [facility] twice daily. Vitamins A,C,B-Dgcj-Hxhogm (3 sources) Start: 11-12-2017 End: 04-14-2020 take 1 capsule by mouth twice daily Vitamins A,C,E-Ctgz-Wegvps Discontinued 1 CAP PO TWICE A DAY November 12, 2017 10:06am April 14, 2020 9:00am Start: 11-12-2017 End: 04-14-2020 take 1 capsule by mouth twice daily Vitamins A,C,D-Ntxa-Uupjly Discontinued 1 CAP PO TWICE A DAY November 12, 2017 12:00am April 14, 2020 9:00am Vitamins A,C,S-Gnhp-Bpeaqn 1 EACH capsule (2 sources) Start: 11-12-2017 End: 04-14-2020 take 1 capsule by mouth twice daily Vitamins A,C,Y-Hvtz-Gldsih 1 EACH capsule Discontinued 1 NMA PO TWICE A DAY November 12, 2017 12:00am April 14, 2020 9:00am eye health Start: 11-12-2017 End: 04-14-2020 take 1 capsule by mouth twice daily Vitamins A,C,V-Kblv-Habvqw 1 EACH capsule Discontinued 1 NMA PO TWICE A DAY November 12, 2017 12:00am April 14, 2020 9:00am Problems Active Problems Problem Classification Problem Date Documented Da te Episodic/Chronic Abdominal pain (2 sources) Right inguinal pain; Translations: [Right lower quadrant pain] Episodic Acute and unspecified renal failure (4 sources) Injury of kidney; Translations: [Acute kidney failure, unspecified] Episodic Acute myocardial infarction (20 sources) Myocardial infarction; Translations: [Non-ST elevation (NSTEMI) myocardial infarction] Onset: 0 11-09-2019 Chronic Acute posthemorrhagic anemia (4 sources) Acute posthemorrhagic anemia; Translations: [Acute posthemorrhagic anemia] Episodic Adjustment disorders (5 sources) Stress; Translations: [Reaction to severe stress, unspecified] 02-04-2024 Chronic Aortic; peripheral; and visceral artery aneurysms (20 sources) Abdominal aortic aneurysm without rupture; Translations: [Abdominal aortic aneurysm, without rupture] Onset: 6 08-08-2016 Chronic Coagulation and hemorrhagic disorders (20 sources) Thrombocytopenic disorder; Translations: [Thrombocytopenia, unspecified] Onset: 2 Chronic Complication of device; implant or graft (20 sources) Arteriosclerosis of coronary artery bypass graft; Translations: [Atherosclerosis of coronary artery bypass graft(s) without angina pectoris] Onset: 1 12-12-2010 Chronic Comment on above: 09/22/1996: HANCOCK to L AD-Diagonal (sequential) arteries and SVG to the OM and RCAWidely patent sequential HANCOCK to LAD and DIAGWidely patent SVG to PDA with eccentric 40% narrowing.Successful PTCA/BRYSON to SVG to OM#1 with filter wire assistance utilizing a 3.5 x 24 Promus Synergy, followed immediately upstream with a 3.5 x 8 Promus Synergy, all post dilated with a 3.5 x 8 NC Balloon; 90%-->0%, no dissection.Large piece of SVG grummus captured within filter wire. 10/28/2019 per DJN @ [facility] Coronary atherosclerosis and other heart disease (20 sources) Coronary arteriosclerosis; Translations: [Coronary atherosclerosis] Onset: 1 Resolved: 5 12-12-2010 Chronic Diseases of white blood cells (4 sources) Leukocytosis; Translations: [Elevated white blood cell count, unspecified] Chronic Disorders of lipid metabolism (20 sources) Hyperlipidemia; Translations: [Familial hypercholesterolemia] Onset: 1 12-12-2010 Chronic Esophageal disorders (20 sources) Gastro-esophageal reflux disease with esophagitis; Translations: [GERD with esophagitis] Onset: 0 10-01-2019 Chronic Esophageal disorders (1 source) Maegan-Feldman tear; Translations: [Gastro-esophageal laceration-hemorrhage syndrome] Episodic Esophageal disorders (1 source) Esophageal disorders; Translations: [Gastroesophageal ref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 hemorrhage] Onset: 0 Essential hypertension (20 sources) Hypertensive disorder; Translations: [Essential hypertension] Onset: 1 12-12-2010 Chronic Gastrointestinal hemorrhage (6 sources) Upper gastrointestinal bleeding; Translations: [Gastrointestinal hemorrhage, unspecified] Episodic Genitourinary symptoms and ill-defined conditions (6 sources) Retention of urine; Translations: [Retention of urine, unspecified] Onset: 0 Episodic Hyperplasia of prostate (20 sources) Nocturia due to benign prostatic hypertrophy; Translations: [Benign prostatic hyperplasia with lower urinary tract symptoms] Onset: 0 Chronic Immunizations and screening for infectious disease (9 sources) Patient encounter status; Translations: [Encounter for immunization] Onset: 3 Episodic Lymphadenitis (1 source) Localized enlarged lymph nodes; Translations: [Localized enlarged lymph nodes] Episodic Miscellaneous mental health disorders (5 sources) Finding relating to self-concept; Translations: [Other symptoms and signs involving emotional state] 02-04-2024 Episodic Mood disorders (20 sources) Dysthymia; Translations: [Dysthymic disorder] Onset: 1 12-05-2020 Chronic Nutritional deficiencies (20 sources) Vitamin D deficiency; Translations: [Vitamin D deficiency, unspecified] Onset: 1 Chronic Other aftercare (2 sources) Surgical follow-up; Translations: [Encounter for surgical aftercare following surgery on the circulatory system] Episodic Other circulatory disease (1 source) Blood vessel finding; Translations: [Presence of other vascular implants and grafts] Chronic Other circulatory disease (2 sources) History of repair of aneurysm of abdominal aorta using endovascular stent graft; Translations: [Presence of other vascular implants and grafts] Onset: 6 Chronic Other circulatory disease (5 sources) History of endovascular stent graft for repair of abdominal aortic aneurysm; Translations: [Presence of other vascular implants and grafts] 02-23-2018 Chronic Comment on above: Stent Graft 2009 Other circulatory disease (1 source) Low blood pressure; Translations: [Hypotension, unspecified] Episodic Other ear and sense organ disorders (1 source) Bilateral hearing loss; Translations: [Unspecified hearing loss, bilateral] 02-04-2024 Chronic Other gastrointestinal disorders (1 source) Groin mass; Translations: [Other intra-abdominal and pelvic swelling, mass and lump] Episodic Other gastrointestinal disorders (2 sources) Dysphagia, oral phase; Translations: [Oral phase dysphagia] Onset: 5 Episodic Other liver diseases (1 source) Alkaline phosphatase raised; Translations: [Abnormal levels of other serum enzymes] 01-01-2024 Episodic Other lower respiratory disease (8 sources) Dyspnea on exertion; Translations: [Dyspnea, unspecified] Onset: 5 07-03-2015 Episodic Other nervous system disorders (2 sources) History of macular degeneration; Translations: [Personal history of other diseases of the nervous system and sense organs] 12-14-2024 Episodic Other nervous system disorders (1 source) Abnormal gait; Translations: [Unspecified abnormalities of gait and mobility] 12-14-2024 Episodic Other nutritional; endocrine; and metabolic disorders (8 sources) Body mass index (BMI) 30.0-30.9, adult; Translations: [Body mass index (BMI) 30.0-30.9, adult] Onset: 3 05-24-2013 Chronic Peripheral and visceral atherosclerosis (9 sources) Peripheral vascular disease, unspecified; Translations: [Intermittent claudication] Onset: 6 01-02-2016 Chronic Residual codes; unclassified (1 source) Other specified postprocedural states; Translations: [Other postprocedural status] Episodic Residual codes; unclassified (5 sources) Low motivation; Translations: [Other specified personal risk factors, not elsewhere classified] 02-04-2024 Episodic Retinal detachments; defects; vascular occlusion; and retinopathy (20 sources) 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; Translations: [Exudative age-related macular degeneration, bilateral, stage unspecified] Onset: 0 10-01-2019 Chronic Unclassified (3 sources) Long-term drug therapy; Translations: [Other retirement (current) drug therapy] Onset: 1 12-12-2010 Unclassified (2 sources) History of repair of aneurysm of abdominal aorta using endovascular stent graft; Translations: [History of endovascular stent graft for abdominal aortic aneurysm (AAA)] Onset: 6 08-08-2016 Unclassified (5 sources) Age more than 65 years; Translations: [Over 65 years old] 07-17-2021 Unclassified (1 source) Familial hypercholesterolemia, unspecified type; Translations: [Familial hypercholesterolemia, unspecified type] Onset: 0 Viral infection (5 sources) Disease caused by 2019-nCoV; Translations: [COVID-19] 10-15-2021 Episodic Past or Other Problems Problem Classification Problem Date Documented Da te Episodic/Chronic Abdominal hernia (20 sources) Bilateral inguinal hernia; Translations: [Bilateral inguinal hernia, without obstruction or gangrene, not specified as recurrent] Onset: 2 Resolved: 2 Episodic Allergic reactions (20 sources) Radiation-induced dermatosis; Translations: [Other skin changes due to chronic exposure to nonionizing radiation] Onset: 6 04-03-2010 Episodic Conditions associated with dizziness or vertigo (11 sources) Vertigo; Translations: [Dizziness and giddiness] Onset: 5 12-14-2024 Episodic Coronary atherosclerosis and other heart disease (20 sources) Presence of aortocoronary bypass graft; Translations: [Stented coronary artery] Onset: 7 12-12-2010 Episodic Comment on above: Widely patent sequen tial HANCOCK to LAD and DIAGWidely patent SVG to PDA with eccentric 40% narrowing.Successful PTCA/BRYSON to SVG to OM#1 with filter wire assistance utilizing a 3.5 x 24 Promus Synergy, followed immediately upstream with a 3.5 x 8 Promus Synergy, all post dilated with a 3.5 x 8 NC Balloon; 90%-->0%, no dissection.Large piece of SVG grummus captured within filter wire. 10/28/2019 per DJN @ [facility] Deficiency and other anemia (20 sources) Iron deficiency anemia; Translations: [Iron deficiency anemia, unspecified] Onset: 3 Episodic Diabetes mellitus without complication (19 sources) Hyperglycemia; Translations: [Hyperglycemia, unspecified] Onset: 4 06-14-2023 Episodic Malaise and fatigue (20 sources) Fatigue; Translations: [Other fatigue] Onset: 1 Episodic Nausea and vomiting (2 sources) Nausea and vomiting; Translations: [Nausea with vomiting, unspecified] Onset: 5 12-14-2024 Episodic Nonspecific chest pain (16 sources) Precordial pain; Translations: [Precordial pain] Onset: 1 Resolved: 5 07-03-2015 Episodic Nutritional deficiencies (20 sources) Cobalamin deficiency; Translations: [Deficiency of other specified B group vitamins] Onset: 2 Episodic Other acquired deformities (1 source) Spondylolisthesis, lumbar region; Translations: [Spondylolisthesis, lumbar region] Onset: 7 04-03-2017 Episodic Other aftercare (5 sources) Other intermediate designer (current) drug therapy; Translations: [Other retirement (current) drug therapy] Onset: 1 12-12-2010 Episodic Other and unspecified benign neoplasm (20 sources) Benign neoplasm of skin of face; Translations: [Other benign neoplasm of skin of unspecified part of face] Onset: 6 05-27-2006 Episodic Other and unspecified benign neoplasm (20 sources) Benign neoplasm of skin of trunk; Translations: [Other benign neoplasm of skin of trunk] Onset: 6 07-02-2006 Episodic Other and unspecified benign neoplasm (20 sources) Melanocytic nevus of face; Translations: [Melanocytic nevi of unspecified part of face] Onset: 0 04-04-2010 Episodic Other and unspecified benign neoplasm (20 sources) Melanocytic nevi of unspecified part of face; Translations: [Benign neoplasm of skin of other and unspecified parts of face] Onset: 0 04-04-2010 Episodic Other circulatory disease (20 sources) Non-neoplastic nevus; Translations: [Nevus, non-neoplastic] Onset: 6 07-02-2006 Episodic Other connective tissue disease (1 source) Arthrodesis status; Translations: [Arthrodesis status] Onset: 7 05-29-2017 Episodic Other diseases of kidney and ureters (20 sources) Acute renal insufficiency; Translations: [Disorder of kidney and ureter, unspecified] Onset: 2 Episodic Other gastrointestinal disorders (20 sources) Diarrhea; Translations: [Diarrhea, unspecified] Onset: 0 02-09-2020 Episodic Other inflammatory condition of skin (20 sources) Pruritus of skin; Translations: [Pruritus, unspecified] Onset: 9 08-02-2009 Episodic Other lower respiratory disease (20 sources) Dyspnea; Translations: [Dyspnea on exertion] Onset: 3 Resolved: 5 05-24-2013 Episodic Other nervous system disorders (1 source) Unspecified abnormalities of gait and mobility; Translations: [Gait disturbance] Onset: 5 Episodic Other nutritional; endocrine; and metabolic disorders (8 sources) Body mass index (BMI) 29.0-29.9, adult; Translations: [Body mass index (BMI) 29.0-29.9, adult] Onset: 3 05-31-2014 Episodic Other screening for suspected conditions (not mental disorders or infectious disease) (16 sources) Electrocardiogram abnormal; Translations: [Abnormal electrocardiogram [ECG] [EKG]] Onset: 1 Resolved: 5 12-12-2010 Episodic Other screening for suspected conditions (not mental disorders or infectious disease) (20 sources) Serum creatinine raised; Translations: [Other specified abnormal findings of blood chemistry] Onset: 2 Episodic Other skin disorders (20 sources) Actinic keratosis; Translations: [Actinic keratosis] Onset: 6 Episodic Other skin disorders (20 sources) Inflamed seborrheic keratosis; Translations: [Inflamed seborrheic keratosis] Onset: 6 05-27-2006 Episodic Other skin disorders (20 sources) Disorder of skin pigmentation; Translations: [Disorder of pigmentation, unspecified] Onset: 6 04-04-2010 Episodic Other skin disorders (20 sources) Seborrheic keratosis; Translations: [Other seborrheic keratosis] Onset: 6 07-02-2006 Episodic Other skin disorders (20 sources) Scar conditions and fibrosis of skin; Translations: [Scar conditions and fibrosis of skin] Onset: 6 07-02-2006 Episodic Other skin disorders (20 sources) Asteatosis cutis; Translations: [Xerosis cutis] Onset: 9 08-02-2009 Episodic Other skin disorders (1 source) Actinic keratosis; Translations: [Actinic keratosis] Onset: 2 Episodic Residual codes; unclassified (17 sources) Family history of ischemic heart disease and other diseases of the circulatory system; Translations: [History of operative procedure on lumbar spinal structure] Onset: 7 Resolved: 5 07-03-2015 Episodic Spondylosis; intervertebral disc disorders; other back problems (1 source) Spinal stenosis of lumbar region; Translations: [Other congenital malformations of spine, not associated with scoliosis] Onset: 7 04-03-2017 Episodic Unclassified (1 source) Problem Results Test Name Value Interpretation Reference Range Facility CNTHERAPYon 06-27-2025 CNTHERAPY OT/PT/Speech Visit ([facility]) TODD MATAMOROS ([id number]) 1940 M Date Time Provider Department 06/27/25 1:00 PM SALLY STEELE [facility] Date Time Provider Department Center 06/27/2025 1:00 PM [id number] STEE[facility] Reason for Visit: Speech Evaluation [7677] Visit Diagnosis:Oral phase dysphagia [R13.11] Allergies As of Date: 06/27/2025 (No Known Allergies) Date Reviewed: 12/14/2024 Reviewed by: Asha Hernandez, GIA.MACHINIST APPRENTICE - Fully Assessed Prescriptions as of 06/27/2025 - atenolol (TENORMIN) 50 mg tablet Take 1 tablet by mouth once daily. - cyanocobalamin 1,000 mcg/mL INJECT 1 ML INTRAMUSCULARLY 1 TIME PER WEEK FOR 30 DAYS THEN 1 ML EVERY 2 (TWO) WEEKS - sertraline (ZOLOFT) 25 mg tablet Take 1 tablet by mouth once daily. - simvastatin (ZOCOR) 20 mg tablet Take 1 tablet by mouth daily at bedtime. - pantoprazole DR (PROTONIX) 40 mg tablet Take 1 tablet by mouth once daily. 30 minutes before eating. - lisinopril (ZESTRIL) 10 mg tablet Take 1 tablet by mouth once daily. - Cholecalciferol, Vitamin D3, (VITAMIN D-3) 50 mcg (2,000 unit) cap Take 1 capsule by mouth once daily. - tamsulosin (FLOMAX) 0.4 mg Take 2 capsules by mouth once daily. - finasteride (PROSCAR) 5 mg tablet Take 1 tablet by mouth once daily. - clopidogrel (PLAVIX) 75 mg tablet Take 1 tablet by mouth once daily. - triamcinolone acetonide (KENALOG) 0.1 % cream Apply 1 application to affected area two times a day. For eczema, Apply sparingly to area for rash/itching. Normal [facility] Rosanna 06-25-2025 LEON Telephone (FAMPWS) TODD MATAMOROS ([id number]) 1940 M Date Time Provider Department 06/25/25 ROBEL ONOFREPWS During your visit today, we recorded the following information about you: Robel Onofre DO 06/25/2025 7:58 AM Signed Please fax Speech therapy referral to [facility]. This was ordered yesterday DO Jason Hernandez Linda M, LPN 06/25/2025 9:07 AM Signed Order faxed to [facility] as requested. Allergies As of Date: 06/25/2025 (No Known Allergies) Date Reviewed: 12/14/2024 Reviewed by: Asha Hernandez, DRILLER HAND.MACHINIST APPRENTICE - Fully Assessed Prescriptions as of 06/25/2025 - atenolol (TENORMIN) 50 mg tablet Take 1 tablet by mouth once daily. - cyanocobalamin 1,000 mcg/mL INJECT 1 ML INTRAMUSCULARLY 1 TIME PER WEEK FOR 30 DAYS THEN 1 ML EVERY 2 (TWO) WEEKS - sertraline (ZOLOFT) 25 mg tablet Take 1 tablet by mouth once daily. - simvastatin (ZOCOR) 20 mg tablet Take 1 tablet by mouth daily at bedtime. - pantoprazole DR (PROTONIX) 40 mg tablet Take 1 tablet by mouth once daily. 30 minutes before eating. - lisinopril (ZESTRIL) 10 mg tablet Take 1 tablet by mouth once daily. - Cholecalciferol, Vitamin D3, (VITAMIN D-3) 50 mcg (2,000 unit) cap Take 1 capsule by mouth once daily. - tamsulosin (FLOMAX) 0.4 mg Take 2 capsules by mouth once daily. - finasteride (PROSCAR) 5 mg tablet Take 1 tablet by mouth once daily. - clopidogrel (PLAVIX) 75 mg tablet Take 1 tablet by mouth once daily. - triamcinolone acetonide (KENALOG) 0.1 % cream Apply 1 application to affected area two times a day. For eczema, Apply sparingly to area for rash/itching. Problem List As Of Date 06/25/2025 Noted Resolved ACTINIC KERATOSES (Premalignant AK's) [L57.0] 05/27/2006 ACTINIC DAMAGE///CHR SOLAR SKIN DAMAGE NOS [L57*05/27/2006 SEBORRHEIC KERATOSIS INFLAMED [L82.0] 05/27/2006 SOLAR LENTIGINES [L81.9] 05/27/2006 BENIGN FABIAN SKIN FACE NEC [D23.30] 05/27/2006 BENIGN FABIAN SKIN TRUNK [D23.5] 07/02/2006 SEBORRHEIC KERATOSIS NOS [L82.1] 07/02/2006 NEVUS, NON-NEOPLASTIC [I78.1] 07/02/2006 SCAR AND FIBROSIS OF SKIN [L90.5] 07/02/2006 Eczema Dermatitis and Other Eczema, due to Unsp*08/02/2009 Xerosis Cutis [L85.3] 08/02/2009 Unspecified Pruritic Disorder [L29.9] 08/02/2009 Melanocytic Nevus Moles: Intradermal types: of *04/04/2010 BPH associated with nocturia [N40.1, R35.1] 10/01/2019 Bilateral exudative age-related macular degener*10/01/2019 Coronary artery disease due to lipid rich plaqu*10/01/2019 GERD with esophagitis [K21.00] 10/01/2019 Familial hypercholesterolemia [E78.019] 10/01/2019 NSTEMI (non-ST elevated myocardial infarction) *11/09/2019 Diarrhea [R19.7] 02/09/2020 Gastroesophageal reflux disease with esophagiti*06/06/2020 Vitamin D deficiency [E55.9] 12/05/2020 Fatigue [R53.83] 12/05/2020 Dysthymia [F34.1] 12/05/2020 Eczema [L30.9] 12/05/2020 Hypertension, essential [I10] 03/06/2021 AAA (abdominal aortic aneurysm) [I71.40] 05/31/2022 Thrombocytopenia (HCC) [D69.6] 05/31/2022 Acute renal insufficiency [N28.9] 05/31/2022 Vitamin B12 deficiency [E53.8] 06/04/2022 Elevated serum creatinine [R79.89] 06/04/2022 Right inguinal hernia [K40.90] 06/04/2022 06/12/2022 Iron deficiency anemia [D50.9] 12/06/2022 Borderline abnormal thyroid function test [R94.*12/22/2023 Hyperglycemia [R73.9] 06/30/2024 Macular degeneration of both eyes [H35.30] 06/30/2024 Depression [F32.A] 06/30/2024 BPPV (benign paroxysmal positional vertigo), un*12/27/2024 Dysuria [R30.0] 06/25/2025 Oral phase dysphagia [R13.11] 06/25/2025 Cough [R05.9] 06/25/2025 Encounter Status:Closed by HEIDI ABDI on 06/25/25 Normal [facility] 25(OH)D3 [facility] 25-hydroxyvitamin D3 [Mass/Vol] 46.4 ng/mL Normal 31.0-80.0 [facility] Comment on above: Order Comment: Christian modi Type: BLOOD SPECIMENOrdering Facility: [facility] Address: [address] [place] [address] Result Comment: Clas sification of 25 [place] Vitamin D status: Deficiency/Insufficiency: < or = 30 ng/ml. Sufficiency/Optimal Levels: 31-80 ng/mL Toxicity: > 100 ng/mL. Test performed by chemiluminescent immunoassay. Performed By: #### 1 989-3 ####[facility] LABCLIA [id number] [place] [address] [place] CBC W Auto Differential pane l (Bld)on 06-24-2025 Basophils (Bld) [#/Vol] 0.04 10*3/uL Normal <0.11 [facility] Comment on above: Order Comment: Christian modi Type: BLOOD SPECIMENOrdering Facility: [facility] Address: [address] [place] [address] Performed By: #### 5 7021-8 ####[facility] LABCLIA [id number] [place] [address] [place] Basophils/100 WBC (Bld) 0.6 % Normal C [facility] Comment on above: Order Comment: Christian modi Type: BLOOD SPECIMENOrdering Facility: [facility] Address: [address] [place] [address] Performed By: #### 5 7021-8 ####[facility] LABCLIA [id number] [place] [address] [place] Differential cell count method Nom (Bld) Auto Normal [facility] Comment on above: Order Comment: Speci men Type: BLOOD SPECIMENOrdering Facility: [facility] Address: [address] [place] [address] Performed By: #### 5 7021-8 ####[facility] LABCLIA [id number] [place] [address] [place] Eosinophils (Bld) [#/Vol] 0.33 10*3/uL Normal <0.46 [facility] Comment on above: Order Comment: Speci men Type: BLOOD SPECIMENOrdering Facility: [facility] Address: [address] [place] [address] Performed By: #### 5 7021-8 ####[facility] LABCLIA [id number] [address] [place] Eosinophils/100 WBC (Bld) 4.7 % Normal [facility] Comment on above: Order Comment: Speci men Type: BLOOD SPECIMENOrdering Facility: [facility] Address: [address] [place] [address] Performed By: #### 5 7021-8 ####[facility] LABCLIA [id number] [address] [place] Erythrocyte distribution width (RBC) [Ratio] 14.6 % Normal 11.5-15.0 [facility] Comment on above: Order Comment: Speci men Type: BLOOD SPECIMENOrdering Facility: [facility] Address: [address] [place] [address] Performed By: #### 5 7021-8 ####[facility] LABCLIA [id number] [address] [place] Hematocrit (Bld) [Volume fraction] 42.5 % Normal 39.0-51.0 [facility] Comment on above: Order Comment: Speci men Type: BLOOD SPECIMENOrdering Facility: [facility] Address: [address] [place] [address] Performed By: #### 5 7021-8 ####[facility] LABCLIA [id number] [place] [address] [place] Hemoglobin (Bld) [Mass/Vol] 14.4 g/dL Normal 13.0-17.0 [facility] Comment on above: Order Comment: Speci men Type: BLOOD SPECIMENOrdering Facility: [facility] Address: [address] [place] [address] Performed By: #### 5 7021-8 ####[facility] LABCLIA [id number] [place] [address] [place] Immature granulocytes (Bld) [#/Vol] 10*3/uL Normal <0.10 [facility] Comment on above: Order Comment: Speci men Type: BLOOD SPECIMENOrdering Facility: [facility] Address: [address] [place] [address] Performed By: #### 5 7021-8 ####[facility] LABCLIA [id number] [place] [address] [place] Immature granulocytes/100 WBC (Bld) 0.3 % Normal [facility] Comment on above: Order Comment: Speci men Type: BLOOD SPECIMENOrdering Facility: [facility] Address: [address] [place] [address] Performed By: #### 5 7021-8 ####[facility] LABCLIA [id number] [place] [address] [place] Lymphocytes (Bld) [#/Vol] 1.44 10*3/uL Normal 1.00-4.00 [facility] Comment on above: Order Comment: Speci men Type: BLOOD SPECIMENOrdering Facility: [facility] Address: [address] [place] [address] Performed By: #### 5 7021-8 ####[facility] LABCLIA [id number] [place] [address] [place] Lymphocytes/100 WBC (Bld) 20.3 % Normal [facility] Comment on above: Order Comment: Speci men Type: BLOOD SPECIMENOrdering Facility: [facility] Address: [address] [place] [address] Performed By: #### 5 7021-8 ####[facility] LABCLIA [id number] [place] [address] [place] MCH (RBC) [Entitic mass] 30.1 pg Normal 26.0-34.0 [facility] Comment on above: Order Comment: Speci men Type: BLOOD SPECIMENOrdering Facility: [facility] Address: [address] [place] [address] Performed By: #### 5 7021-8 ####[facility] LABCLIA [id number] [place] [address] [place] MCHC (RBC) [Mass/Vol] 33.9 g/dL Normal 30.5-36.0 [facility] Comment on above: Order Comment: Speci men Type: BLOOD SPECIMENOrdering Facility: [facility] Address: [address] [place] [address] Performed By: #### 5 7021-8 ####[facility] LABCLIA [id number] [place] [address] [place] MCV (RBC) [Entitic vol] 88.7 fL Normal 80.0-100.0 C [facility] Comment on above: Order Comment: Speci men Type: BLOOD SPECIMENOrdering Facility: [facility] Address: [address] [place] [address] Performed By: #### 5 7021-8 ####[facility] LABCLIA [id number] [place] [address] [place] Monocytes (Bld) [#/Vol] 0.77 10*3/uL Normal <0.87 [facility] Comment on above: Order Comment: Speci men Type: BLOOD SPECIMENOrdering Facility: [facility] Address: [address] [place] [address] Performed By: #### 5 7021-8 ####[facility] LABCLIA [id number] [place] [address] [place] Monocytes/100 WBC (Bld) 10.9 % Normal C [facility] Comment on above: Order Comment: Speci men Type: BLOOD SPECIMENOrdering Facility: [facility] Address: [address] [place] [address] Performed By: #### 5 7021-8 ####[facility] LABCLIA [id number] [place] [address] [place] Neutrophils (Bld) [#/Vol] 4.48 10*3/uL Normal 1.45-7.50 [facility] Comment on above: Order Comment: Speci men Type: BLOOD SPECIMENOrdering Facility: [facility] Address: [address] [place] [address] Performed By: #### 5 7021-8 ####[facility] LABCLIA [id number] [place] [address] [place] Neutrophils/100 WBC (Bld) 63.2 % Normal [facility] Comment on above: Order Comment: Speci men Type: BLOOD SPECIMENOrdering Facility: [facility] Address: [address] [place] [address] Performed By: #### 5 7021-8 ####[facility] LABCLIA [id number] [place] [address] [place] Nucleated RBC (Bld) [#/Vol] 10*3/uL Normal <0.01 [facility] Comment on above: Order Comment: Speci men Type: BLOOD SPECIMENOrdering Facility: [facility] Address: [address] [place] [address] Performed By: #### 5 7021-8 ####[facility] LABCLIA [id number] [place] [address] [place] Nucleated RBC/100 WBC (Bld) [Ratio] 0.0 /100 WBC Normal [facility] Comment on above: Order Comment: Speci men Type: BLOOD SPECIMENOrdering Facility: [facility] Address: [address] [place] [address] Performed By: #### 5 7021-8 ####[facility] LABCLIA [id number] [place] [address] [place] Platelet mean volume (Bld) [Entitic vol] 9.9 fL Normal 9.0-12.7 [facility] Comment on above: Order Comment: Speci men Type: BLOOD SPECIMENOrdering Facility: [facility] Address: [address] [place] [address] Performed By: #### 5 7021-8 ####[facility] LABCLIA [id number] [place] [address] [place] Platelets (Bld) [#/Vol] 134 10*3/uL Low 150-400 [facility] Comment on above: Order Comment: Speci men Type: BLOOD SPECIMENOrdering Facility: [facility] Address: [address] [place] [address] Performed By: #### 5 7021-8 ####[facility] LABCLIA [id number] [place] [address] [place] RBC (Bld) [#/Vol] 4.79 10*6/uL Normal 4.20-6.00 [facility] Comment on above: Order Comment: Speci men Type: BLOOD SPECIMENOrdering Facility: [facility] Address: [address] [place] [address] Performed By: #### 5 7021-8 ####[facility] LABCLIA [id number] [place] [address] [place] WBC (Bld) [#/Vol] 7.08 10*3/uL Normal 3.70-11.00 [facility] Comment on above: Order Comment: Speci men Type: BLOOD SPECIMENOrdering Facility: [facility] Address: [address] [place] [address] Performed By: #### 5 7021-8 ####[facility] LABCLIA [id number] [place] [address] [place] CNOVon 06-24-2025 CNOV Office Visit (FAMPWS ) TODD MATAMOROS ([id number]) 1940 M Date Time Provider Department 06/24/25 10:00 AM [facility] During your visit today, we recorded the following information about you: Temperature Pulse Blood pressure Weight 96.5 degrees 56/minute 138/72 85.7 kg Height 1.7 m Robel Onofre DO 06/25/2025 8:03 AM Signed CC: Todd Matamoros is a 85 year old male who presents to the office for follow up HPI: Dry cough, present for a few months now. Him and his daughter Jadyn state that every time he eats he finds that he feels the need to be coughing. Starts to cough while eating, feels food sometimes isn't able to be swallowed as well up in his throat. Does have hx of GERD, no obvious voice changes. No vomiting, no nausea. His appetite is good/normal. This is getting frustrating to him as well. Urinary urgency and frequency recently, has been eating more sugar and more stress due to recently with fracture of hip and surgical correction. Macular degeneration, continues to progress, no new recent interventions received. Knows that this affects his functioning/abilities but still has been able to stay at home since he knows where everything is located etc. No falls. BPH, long standing, use of Flomax and Proscar with improvement/relief, symptoms much improved HTN, CAD, aortic aneurysm, well controlled pulse and BP, taking medications as prescribed. Continues to see [facility] for followup Iron deficiency, eating iron rich foods,no signs of bleeding. Last labs in Jun 2024, willing to have labs rechecked. Mood, overall stable, taking Sertraline. Helps to care for his with dementia and she recently had a hip fracture. Daughter feels he is doing well. Has fatigue, taking vitamin b12 injections PAST MEDICAL HISTORY Diagnosis Date Acute bronchitis Aneurysm of abdominal aorta 04/20/2011. Lower abdomen. BPH (benign prostatic hyperplasia) CAD (coronary artery disease) Diverticulosis of colon (without mention of hemorrhage) GERD (gastroesophageal reflux disease) Hyperlipidemia Hypertension Internal hemorrhoids without mention of complication Macular degeneration NSTEMI (non-ST elevated myocardial infarction) ([facility]) 10/28/2019 Osteoarthritis of left hip Paresthesia PMH - PAST MEDICAL HISTORY OF sood PMH - PAST MEDICAL HISTORY OF heart problems PMH - PAST MEDICAL HISTORY OF problems with disc PMH - PAST MEDICAL HISTORY OF age 7 rheumatic fever PMH - PAST MEDICAL HISTORY OF syncope Spinal stenosis, unspecified region other than cervical lumbar Urinary incontinence PAST SURGICAL HISTORY Procedure Laterality Date ARTHRP ACETBLR/PROX FEM PROSTC AGRFT/ALGRFT Left 11/26/2017 Dr. Sukhjinder Lewis AVASTIN (BEVACIZUMAB) 1.25MG INTRAVITREAL INJECTION OD (RIGHT EYE) Right multiple COLONOSCOPY FLX DX W/COLLJ SPEC WHEN PFRMD 07/28/2007 DIR RPR ANEURYSM ABDOMINAL AORTA 04/20/2011 [facility] EYLEA (AFLIBERCEPT) 2MG INTRAVITREAL INJECTION OD (RIGHT EYE) Right 2017 x 3 INGUINAL HERNIA REPAIR HX Bilateral 06/12/2022 with mesh OTHER 10/28/2019 PTCA/BRYSON X2 in the saphenous vein graft to OM1. PAST SURGICAL HISTORY OF 09/1996 CABG PAST SURGICAL HISTORY OF 2004, 2016 Back PAST SURGICAL HISTORY OF cardiac cath PAST SURGICAL HISTORY OF 2004 right hip replacement PAST SURGICAL HISTORY OF 06/2007 surveillance cardiac cath PAST SURGICAL HISTORY OF 12/2009 Heart Cath PAST SURGICAL HISTORY OF Left 11/2017 Left Hip Surgery PERIPH ANEUR ARM KHADIJAH MAP INPT 2010 PRICARDIECTOMY STOT/COMPL W/CARDPULM BYPASS 1996 TONSILLECTOMY PRIMARY/SECONDARY Tonsillectomy XCAPSL CTRC RMVL INSJ IO LENS PROSTH W/O ECP Bilateral Cataract Extraction with PC IOL Social History: SOCIAL HISTORY[1] FAMILY HISTORY Problem Relation Age of Onset Heart Mother age 60 [place], smoker None Father age 77 MVA Cataract Father No Known Problems Sister No Known Problems Brother No Known Problems Sister No Known Problems Sister No Known Problems Sister Coronary Artery Disease Brother Coronary Artery Disease Brother Current Outpatient prescriptions: atenolol (TENORMIN) 50 mg tablet Take 1 tablet by mouth once daily. cyanocobalamin 1,000 mcg/mL INJECT 1 ML INTRAMUSCULARLY 1 TIME PER WEEK FOR 30 DAYS THEN 1 ML EVERY 2 (TWO) WEEKS sertraline (ZOLOFT) 25 mg tablet Take 1 tablet by mouth once daily. simvastatin (ZOCOR) 20 mg tablet Take 1 tablet by mouth daily at bedtime. pantoprazole DR (PROTONIX) 40 mg tablet Take 1 tablet by mouth once daily. 30 minutes before eating. lisinopril (ZESTRIL) 10 mg tablet Take 1 tablet by mouth once daily. Cholecalciferol, Vitamin D3, (VITAMIN D-3) 50 mcg (2,000 unit) cap Take 1 capsule by mouth once daily. tamsulosin (FLOMAX) 0.4 mg Take 2 capsules by mouth once daily. finasteride (PROSCAR) 5 (more content not included)... Normal [facility] Comprehensive metabolic 2000 panelon 06-24-2025 Albumin [Mass/Vol] 4.3 g/dL Normal 3.9-4.9 [facility] Comment on above: Order Comment: Speci men Type: BLOOD SPECIMENOrdering Facility: [facility] Address: [address] [place] [address] Performed By: #### L IPNF, 37963-0, 3024-7, 3016-3 ####[facility] LABCLIA [id number] [place] [address] [place] ALP [Catalytic activity/Vol] 116 U/L High 38-113 [facility] Comment on above: Order Comment: Speci men Type: BLOOD SPECIMENOrdering Facility: [facility] Address: [address] [place] [address] Performed By: #### L IPNF, 89886-8, 3024-7, 3016-3 ####[facility] LABCLIA [id number] [place] [address] [place] ALT [Catalytic activity/Vol] 11 U/L Normal 10-54 [facility] Comment on above: Order Comment: Speci men Type: BLOOD SPECIMENOrdering Facility: [facility] Address: [address] [place] [address] Performed By: #### L IPNF, 55824-5, 3024-7, 3016-3 ####[facility] LABCLIA [id number] [place] [address] [place] Anion gap [Moles/Vol] 9 mmol/L Normal 8-15 [facility] Comment on above: Order Comment: Speci men Type: BLOOD SPECIMENOrdering Facility: [facility] Address: [address] [place] [address] Performed By: #### L IPNF, 31705-0, 4-7, 3016-3 ####[facility] LABCLIA [id number] [place] [address] [place] AST [Catalytic activity/Vol] 15 U/L Normal 14-40 [facility] Comment on above: Order Comment: Speci men Type: BLOOD SPECIMENOrdering Facility: [facility] Address: [address] [place] [address] Performed By: #### L IPNF, 90431-8, 3023-7, 6-3 ####[facility] LABCLIA [id number] [place] [address] [place] Bilirubin [Mass/Vol] 0.5 mg/dL Normal 0.2-1.3 [facility] Comment on above: Order Comment: Speci men Type: BLOOD SPECIMENOrdering Facility: [facility] Address: [address] [place] [address] Performed By: #### L IPNF, 04226-1, 3023-7, 3016-3 ####[facility] LABCLIA [id number] [place] [address] [place] Calcium [Mass/Vol] 9.4 mg/dL Normal 8.5-10.2 [facility] Comment on above: Order Comment: Speci men Type: BLOOD SPECIMENOrdering Facility: [facility] Address: [address] [place] [address] Performed By: #### L IPNF, 54827-0, 4-7, 3016-3 ####[facility] LABCLIA [id number] [place] [address] [place] Chloride [Moles/Vol] 106 mmol/L Normal 98-107 [facility] Comment on above: Order Comment: Speci men Type: BLOOD SPECIMENOrdering Facility: [facility] Address: [address] [place] [address] Performed By: #### L IPNF, 49923-0, 3024-7, 3016-3 ####[facility] LABCLIA [id number] [place] [address] [place] CO2 [Moles/Vol] 24 mmol/L Normal 22-30 [facility] Comment on above: Order Comment: Speci men Type: BLOOD SPECIMENOrdering Facility: [facility] Address: [address] [place] [address] Performed By: #### L IPNF, 81914-6, 3024-7, 3016-3 ####[facility] LABCLIA [id number] [place] [address] [place] Creatinine [Mass/Vol] 1.25 mg/dL High 0.73-1.22 [facility] Comment on above: Order Comment: Speci men Type: BLOOD SPECIMENOrdering Facility: [facility] Address: [address] [place] [address] Performed By: #### L IPNF, 34091-2, 3024-7, 3016-3 ####[facility] LABCLIA [id number] [place] [address] [place] eGFRcr SerPlBld CKD-EPI 2020 56 mL/min/1.73m??? Low >=60 [facility] Comment on above: Order Comment: Speci men Type: BLOOD SPECIMENOrdering Facility: [facility] Address: [address] [place] [address] Result Comment: Shannan mated Glomerular Filtration Rate (eGFR) is calculated using the 2020 CKD-EPI creatinine equation. This equation utilizes serum creatinine, sex, and age as parameters. The creatinine assay has traceable calibration to isotope dilution-mass spectrometry. Refer to KDIGO guidelines for clinical interpretation. In patients with unstable renal function, e.g. those with acute kidney injury, the eGFR may not accurately reflect actual GFR. Performed By: #### L IPNF, 76475-6, 3023-7, 6-3 ####[facility] LABCLIA [id number] [place] [id number] [place] Glucose [Mass/Vol] 99 mg/dL Normal 74-99 [facility] Comment on above: Order Comment: Speci men Type: BLOOD SPECIMENOrdering Facility: [facility] Address: [address] [place] [address] Result Comment: The [place] Diabetes Association (ADA) provides guidance for cutoff values for fasting glucose and random glucose. The ADA defines fasting as no caloric intake for at least 8 hours. Fasting plasma glucose results between 100 to 125 mg/dL indicate increased risk for diabetes (prediabetes). Fasting plasma glucose results greater than or equal to 126 mg/dL meet the criteria for diagnosis of diabetes. In the absence of unequivocal hyperglycemia, results should be confirmed by repeat testing. In a patient with classic symptoms of hyperglycemia or hyperglycemic crisis, random plasma glucose results greater than or equal to 200 mg/dL meet the criteria for diagnosis of diabetes. Reference: Standards of Medical Care in Diabetes 2016, [place] [employer] Association. Diabetes Care. 2016.39(Suppl 1). Performed By: #### L IPNF, 04010-9, 7, 3 ####[facility] LABCLIA [id number] [place] [id number] [place] Potassium [Moles/Vol] 4.6 mmol/L Normal 3.7-5.1 [facility] Comment on above: Order Comment: Speci men Type: BLOOD SPECIMENOrdering Facility: [facility] Address: [address] [place] [id number] Performed By: #### L IPNF, 07598-6, 3023-7, 3015-3 ####[facility] LABCLIA [id number] [place] [id number] [place] Protein [Mass/Vol] 7.0 g/dL Normal 6.3-8.0 [facility] Comment on above: Order Comment: Speci men Type: BLOOD SPECIMENOrdering Facility: [facility] Address: [address] [place] [address] Performed By: #### L IPNF, 37211-7, 3024-7, 3016-3 ####[facility] LABCLIA [id number] [place] [id number] [place] Sodium [Moles/Vol] 139 mmol/L Normal 136-144 [facility] Comment on above: Order Comment: Speci men Type: BLOOD SPECIMENOrdering Facility: [facility] Address: [address] [place] [address] Performed By: #### L IPNF, 10634-8, 4-7, 6-3 ####[facility] LABCLIA [id number] [place] [address] [place] Urea nitrogen [Mass/Vol] 21 mg/dL Normal 9-24 [facility] Comment on above: Order Comment: Speci men Type: BLOOD SPECIMENOrdering Facility: [facility] Address: [address] [place] [address] Performed By: #### L IPNF, 46952-6, 4-7, 6-3 ####[facility] LABCLIA [id number] [place] [address] [place] HbA1c (Bld)on 06-24-2025 Average glucose Estimated from glycated hemoglobin (Bld) [Mass/Vol] 103 mg/dL Normal [facility] Comment on above: Order Comment: Speci men Type: BLOOD SPECIMENOrdering Facility: [facility] Address: [address] [place] [address] Result Comment: eAG: (Estimated average glucose) is a calculated value from HgbA1c and is patient service representative of the average blood glucose level in the last 2-3 month period. Performed By: #### 5 5454-3 ####[facility] LABCLIA [id number] [place] [address] [place] HbA1c (Bld) [Mass fraction] 5.2 % Normal 4.3-5.6 [facility] Comment on above: Order Comment: Speci men Type: BLOOD SPECIMENOrdering Facility: [facility] Address: [address] [place] [address] Result Comment: [place] Diabetes Association guidelines indicate that patients with HgbA1c in the range 5.7-6.4% are at increased risk for development of diabetes, and intervention by lifestyle modification may be beneficial. HgbA1c greater or equal to 6.5% is considered diagnostic of diabetes. Performed By: #### 5 5454-3 ####[facility] LABCLIA [id number] [address] [place] LIPID PANEL, NONFASTINGon Cholesterol [Mass/Vol] 115 mg/dL Normal <200 [facility] Comment on above: Order Comment: Christian modi Type: BLOOD SPECIMENOrdering Facility: [facility] Address: [address] [place] [address] Result Comment: <200 mg/dL, Desirable 200-239 mg/dL, Borderline high >239 mg/dL, High Performed By: #### L IPNF, 38319-1, 3024-7, 3016-3 ####[facility] LABCLIA [id number] [address] [place] HDL CHOLESTEROL, NF 32 mg/dL Low >39 [facility] Comment on above: Order Comment: Christian modi Type: BLOOD SPECIMENOrdering Facility: [facility] Address: [address] [place] [address] Result Comment: 40-5 9 mg/dL, Acceptable >59 mg/dL, High: Negative risk factor for coronary heart disease <40 mg/dL, Low: Positive risk factor for coronary heart disease Performed By: #### L IPNF, 36440-0, 3024-7, 3016-3 ####[facility] LABCLIA [id number] [place] [address] [place] LDL CHOLESTEROL CALCULATED, NF 43 mg/dL Normal <100 [facility] Comment on above: Order Comment: Emiraudel modi Type: BLOOD SPECIMENOrdering Facility: [facility] Address: [address] [place] [address] Result Comment: <100 mg/dL, Optimal 100-129 mg/dL, Near optimal/above optimal 130-159 mg/dL, Borderline high 160-189 mg/dL, High >189 mg/dL, Very high Secondary prevention optimal LDL Cholesterol levels are recommended to be <70 mg/dL LDL cholesterol is calculated using the Polo-NIH equation. Performed By: #### L IPTITO, 80102-6, 3023-7, 3015-3 ####[facility] LABCLIA [id number] [address] OF [facility] LDL/HDL RATIO, NF 1.34 mg/dL Normal <2.54 [facility] Comment on above: Order Comment: Christian modi Type: BLOOD SPECIMENOrdering Facility: [facility] Address: [address] [place] [address] Result Comment: Refe rence: 1. National Cholesterol Education Program ATP III Guideline At-A-Glance Quick Desk Reference: National Heart, Lung, and Blood [place]. National Institutes of Health. 2001: NIH Publication No. 01-3305. 2. An International Atherosclerosis Society position paper: global recommendations for the management of dyslipidemia: executive summary, Atherosclerosis. 2014: 232(2):410-413. Performed By: #### L KEITH, 24785-3, 3024-02, 3 ####[facility] LABCLIA [id number] [address] OF [facility] NON HDL CHOL, NF 83 mg/dL Normal <130 [facility] Comment on above: Order Comment: Christian modi Type: BLOOD SPECIMENOrdering Facility: [facility] Address: [address] [place] [address] Result Comment: <130 mg/dL, Optimal 130-159 mg/dL, Near optimal/above optimal 160-189 mg/dL, Borderline high 190-219 mg/dL, High >219 mg/dL, Very high Secondary prevention optimal non HDL Cholesterol levels are recommended to be <100 mg/dL Performed By: #### L IPNF, 17742-9, 3023-7, 3015-3 ####[facility] LABCLIA [id number] [place] [address] [place] T CHOL/HDL RATIO NF 3.59 mg/dL Normal <5.10 [facility] Comment on above: Order Comment: Speci men Type: BLOOD SPECIMENOrdering Facility: [facility] Address: [address] [place] [address] Performed By: #### L IPNF, 88932-3, 3024-7, 3016-3 ####[facility] LABCLIA [id number] [place] [address] [place] TRIGLYCERIDES, NF 257 mg/dL High <150 [facility] Comment on above: Order Comment: Speci men Type: BLOOD SPECIMENOrdering Facility: [facility] Address: [address] [place] [address] Result Comment: <150 mg/dL, Normal 150-199 mg/dL, Borderline high 200-499 mg/dL, High >499 mg/dL, Very high Performed By: #### L IPNF, 66332-2, 3023-7, 6-3 ####[facility] LABCLIA [id number] [place] [address] [place] VLDL CHOLESTEROL, NF 35 mg/dL High <30 [facility] Comment on above: Order Comment: Speci men Type: BLOOD SPECIMENOrdering Facility: [facility] Address: [address] [place] [address] Performed By: #### L IPNF, 72362-5, 3023-7, 6-3 ####[facility] LABCLIA [id number] [place] [address] [place] T4 Free SerPl-mCncon -31-2 025 Free T4 [Mass/Vol] 1.2 ng/dL Normal 0.9-1.7 [facility] Comment on above: Order Comment: Speci men Type: BLOOD SPECIMENOrdering Facility: [facility] Address: [address] [place] [address] Performed By: #### L IPNF, 89808-6, 302-7, 3016-3 ####[facility] LABCLIA [id number] [place] [id number] [place] TSH SerPl-aCncon 06-24-2025 TSH Qn 2.480 m[IU]/L Normal 0.270-4.200 [facility] Comment on above: Order Comment: Speci men Type: BLOOD SPECIMENOrdering Facility: [facility] Address: [address] [place] [address] Performed By: #### L IP, 57155-9, 3024-7, 3016-3 ####[facility] LABCLIA [id number] [place] [address] [place] Vit B12 SerPl-mCncon 025 Cobalamin (Vitamin B12) [Mass/Vol] 798 pg/mL Normal 232-1245 [facility] Comment on above: Order Comment: Speci men Type: BLOOD SPECIMENOrdering Facility: [facility] Address: [address] [place] [address] Performed By: #### 2 132-9 ####[facility] LABCLIA [id number] [place] [address] [place] XR CHEST 2V FRONTAL/LATon XR CHEST 2V FRONTAL/LAT * * *Final Repor t* * * DATE OF EXAM: Jun 24 2025 11:44AM WOX [id number] - XR CHEST 2V FRONTAL/LAT / PROCEDURE REASON: Oral phase dysphagia * * * * Physician Interpretation * * * * EXAMINATION: CHEST RADIOGRAPH (2 VIEW FRONTAL and LATERAL) CLINICAL HISTORY: Oral phase dysphagia MQ: XC2_6 EXAM DATE/TIME: 06/24/2025 11:44 AM COMPARISON: August 09, 2019. RESULT: Lines, tubes, and devices: None. Lungs and pleura: No consolidation. No lung mass. No pleural effusion. No pneumothorax. Cardiomediastinal silhouette: The patient is status post median sternotomy. Bones and soft tissues: Unremarkable. IMPRESSION: Stable exam with no acute radiographic abnormality. Mill Control Operator: TOM Transcribe Date/Time: Jun 26 2025 6:21P Dictated by : FIDEL GAO MD This examination was interpreted and the report reviewed and electronically signed by: FIDEL GAO MD on Jun 26 2025 6:22PM EST [id number] Normal [facility] Cardiology Visit Reporton Cardiology Visit Report [facility] [address] [place] [address] OFFICE VISIT Date of Service: 03/22/25 MR#: [id number] Acct: [id number] Name: TODD MATAMOROS Rep #: [id number] : 1940 Provider: Dr. Jamal Dawson MD Age/Sex: 84/M Location: [facility] Status: Signed HPI HPI History of Present Illness Details: This is an 84-year-old white male who presents today for outpatient cardiovascular follow-up visit. He has a history of underlying CAD, status post PCI, status post CABG, abdominal aortic aneurysm status post repair, superimposed on hyperlipidemia and hypertension. He has been taking care of his who has dementia. From a cardiac standpoint, the patient is doing well. He denies any palpitations, chest pain, pressure or heaviness. He denies SOB, Orthopnea, and PND. He does not have bleeding issues; no blood in urine, stool or nosebleeds. He denies any decrease in energy level, myalgias, or claudication. He does not have edema, or sudden weight gain. He denies dizziness, lightheadedness, syncopal or near syncopal episodes, and headaches. Intake Vital Signs 02/06/24 08:52 12/14/24 12:40 03/22/25 14:16 Height 5 ft 6 in 5 ft 6 in 5 ft 6 in Weight: 186 lb BMI 29.9 BP 149/73 H Blood Pressure Location Lt brachial Position Sitting Respiration 16 Pulse 57 L Pulse Source Monitor Intake Visit Reasons: 1 Y FU Sat Act Instructor Required: No Accompanied by: Daughter Is patient in pain?: No Allergies No Known Allergies Allergy (Verified 03/22/25 14:19) Medications ???Medication ???Instructions ???Recorded ???Confirmed ???Type finasteride 5 mg tablet 5 mg PO DAILY prostate 02/23/18 History aspirin 81 mg tablet,delayed 81 mg PO DAILY blood thinner 08/1103/22/25 History release (Adult Aspirin Regimen) tamsulosin 0.4 mg capsule 0.4 mg PO BID prostate 10/27/19 History atenolol 50 mg tablet 50 mg PO DAILY BLOOD PRESSURE 10/2403/22/25 History clopidogrel 75 mg tablet 75 mg PO DAILY BLOOD THINNER #90 0 02/07/20 03/22/25 Rx tabs simvastatin 20 mg tablet 20 mg PO QHS cholesterol #90 tabs 11/10/20 03/22/25 Rx cholecalciferol (vitamin D3) 50 50 mcg PO DAILY SUPPLEMENT 2 03/22/25 History mcg (2,000 unit) capsule (Vitamin D3) omeprazole 20 mg capsule,delayed 20 mg PO DAILY 02/07/23 03/22/25 H istory release sertraline 25 mg tablet 25 mg PO DAILY 02/06/24 03/22/25 H istory cyanocobalamin (vitamin B-12) 1,000 mcg IM .COMPLEX 12/14/24 History 1,000 mcg/mL injection solution lisinopril 10 mg tablet 10 mg PO DAILY 12/14/24 03/22/25 H istory meclizine 12.5 mg tablet 12.5 mg PO TID PRN dizziness #20 0 12/14/24 03/22/25 Rx tabs Have you fallen in the past year?: No PFSH Medical History Hiatal hernia Restless legs High cholesterol History of stress test HTN (hypertension) Heart attack Macular degeneration of both eyes Atherosclerosis of coronary artery bypass graft(s) without angina pectoris Dyspnea on exertion Atherosclerosis of council coronary artery of council heart without angina pectoris Lupus anticoagulant disorder Syncope Spinal stenosis Rheumatic fever Essential (primary) hypertension Hyperlipemia, mixed Surgical History Status post bilateral inguinal hernia repair Status post cardiac surgery History of heart artery stent H/O cardiac catheterization History of tonsillectomy 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) Stented coronary artery (10/28/19) H/O coronary artery bypass surgery History of endovascular stent graft for abdominal aortic aneurysm (AAA) History of left heart catheterization Family History Mother CAD (coronary artery disease) Brother CAD (coronary artery disease) CABG Brother CAD (coronary artery disease) Social History Smoking Status: Former smoker how long ago did patient quit smokin years ago alcohol intake: never substance use type: does not use caffeine: Yes Type: coffee Number of servings: 4 ROS Const Const: Positive for daytime sleepiness; Negative for fatigue, weakness, headache(s) or difficulty sleeping ENT ENT: Negative for headache(s), dizziness or Nosebleed/epistaxis Cardio Chest Pain: No Palpitations: No Edema: None Resp Respiratory: Positive for SOB with activity and SOB at rest; Negative for SOB orthopnea SOB lying down or Cough GI GI: Negative nausea, vomiting or heartburn Neuro Neuro: Negative for dizziness, lightheadedness, near syncope, headache(s) or weakness Endo Endo: Negative fo (more content not included)... Normal [facility] CNOVon 12-27-2024 [facility] Office Visit (FAMPWS ) TODD AMTAMOROS ([id number]) 1940 M Date Time Provider Department 12/27/24 10:40 AM ROBEL ONOFRE FAMPWS During your visit today, we recorded the following information about you: Temperature Pulse Respiration Blood pressure 98.6 degrees 60/minute 20/minute 110/70 Weight 82.6 kg Robel Onofre, 12/27/2024 2:03 PM Signed CC: Todd Matamoros is a 84 year old male who presents to the office for follow up HPI: Recently with episode of dizziness. Was assessed in office by Asha Hernandez CNP and then sent to [facility] for further assessment with CT brain and labs which were overall normal. He was then seen for follow up with ENT specialist for additional testing and Dr. Garay was able to do Iris maneuver with benefit. Macular degeneration, continues to progress, no new recent interventions received. Knows that this affects his functioning/abilities but still has been able to stay at home since he knows where everything is located etc. No falls. BPH, long standing, use of Flomax and Proscar with improvement/relief, symptoms much improved HTN, CAD, aortic aneurysm, well controlled pulse and BP, taking medications as prescribed. Continues to see [facility] for followup Iron deficiency, eating iron rich foods,no signs of bleeding. Last labs in Jun 2024 Mood, overall stable, taking Sertraline. Helps to care for his with dementia. Daughter feels he is doing well. Has fatigue, taking vitamin b12 injections PAST MEDICAL HISTORY Diagnosis Date Acute bronchitis Aneurysm of abdominal aorta 04/20/2011. Lower abdomen. BPH (benign prostatic hyperplasia) CAD (coronary artery disease) Diverticulosis of colon (without mention of hemorrhage) GERD (gastroesophageal reflux disease) Hyperlipidemia Hypertension Internal hemorrhoids without mention of complication Macular degeneration NSTEMI (non-ST elevated myocardial infarction) ([facility]) 10/28/2019 Osteoarthritis of left hip Paresthesia PMH - PAST MEDICAL HISTORY OF sood PMH - PAST MEDICAL HISTORY OF heart problems PMH - PAST MEDICAL HISTORY OF problems with disc PMH - PAST MEDICAL HISTORY OF age 7 rheumatic fever PMH - PAST MEDICAL HISTORY OF syncope Spinal stenosis, unspecified region other than cervical lumbar Urinary incontinence PAST SURGICAL HISTORY Procedure Laterality Date ARTHRP ACETBLR/PROX FEM PROSTC AGRFT/ALGRFT Left 11/26/2017 Dr. Sukhjinder Lewis AVASTIN (BEVACIZUMAB) 1.25MG INTRAVITREAL INJECTION OD (RIGHT EYE) Right multiple COLONOSCOPY FLX DX W/COLLJ SPEC WHEN PFRMD 07/28/2007 DIR RPR ANEURYSM ABDOMINAL AORTA 04/20/2011 [place] EYLEA (AFLIBERCEPT) 2MG INTRAVITREAL INJECTION OD (RIGHT EYE) Right 2017 x 3 INGUINAL HERNIA REPAIR HX Bilateral 06/12/2022 with mesh OTHER 10/28/2019 PTCA/BRYSON X2 in the saphenous vein graft to OM1. PAST SURGICAL HISTORY OF 09/1996 CABG PAST SURGICAL HISTORY OF 2004, 2016 Back PAST SURGICAL HISTORY OF cardiac cath PAST SURGICAL HISTORY OF 2004 right hip replacement PAST SURGICAL HISTORY OF 06/2007 surveillance cardiac cath PAST SURGICAL HISTORY OF 12/2009 Heart Cath PAST SURGICAL HISTORY OF Left 11/2017 Left Hip Surgery PERIPH ANEUR ARM KHADIJAH MAP INPT 2010 PRICARDIECTOMY STOT/COMPL W/CARDPULM BYPASS 1996 TONSILLECTOMY PRIMARY/SECONDARY Tonsillectomy XCAPSL CTRC RMVL INSJ IO LENS PROSTH W/O ECP Bilateral Cataract Extraction with PC IOL Current Outpatient Medications Medication Sig simvastatin (ZOCOR) 20 mg tablet Take 1 tablet by mouth daily at bedtime. meclizine (ANTIVERT) 12.5 mg tab Take 1 tablet by mouth three times a day as needed (for dizziness.). lisinopril (ZESTRIL) 10 mg tablet Take 1 tablet by mouth once daily. Cholecalciferol, Vitamin D3, (VITAMIN D-3) 50 mcg (2,000 unit) cap Take 1 capsule by mouth once daily. tamsulosin (FLOMAX) 0.4 mg Take 2 capsules by mouth once daily. sertraline (ZOLOFT) 25 mg tablet Take 1 tablet by mouth once daily. finasteride (PROSCAR) 5 mg tablet Take 1 tablet by mouth once daily. cyanocobalamin 1,000 mcg/mL Inject 1 mL intramuscularly one time a week for 30 days, THEN 1 mL every 2 weeks. clopidogrel (PLAVIX) 75 mg tablet Take 1 tablet by mouth once daily. atenolol (TENORMIN) 50 mg tablet Take 1 tablet by mouth once daily. triamcinolone acetonide (KENALOG) 0.1 % cream Apply 1 application to affected area two times a day. For eczema, Apply sparingly to area for rash/itching. omeprazole 20 mg capsule Take 20 mg by mouth once daily. Take one(1) tablet daily. No current facility-administered medications for this visit. ALLERGIES No Known Allergies Social History Tobacco Use Smoking status: Former Current packs/day: 0.00 Types: Cigarettes Quit date: 05/27/1982 Years since quittin.6 Smokeless tobacco: Never Vaping Use Vaping st (more content not included)... Normal [facility] Rosanna 12-20-2024 LEON Telephone (FAMPWS) TODD MATAMOROS ([id number]) 1940 M Date Time Provider Department 12/20/24 ROBEL ONOFRE During your visit today, we recorded the following information about you: Gildardo Franklin RN 12/20/2024 9:05 AM Signed Daughter, Zulema, reports pt saw Asha on 12/14/24 for vertigo. Asha sent pt to [facility] ER that day and ER prescribed meclizine 12.5 mg take 3 x's day prn. Reports the meclizine has helped pt's vertigo. Daughter did not schedule ER f/u with pcp b/c patient has appt with pcp on Friday12/27/24 for a f/u. Reports pt has 1-2 meclizine pills left. Asking if pcp would send new Rx to [facility]. Pended. Parish Beasley PA-C 12/21/2024 9:08 AM Signed The following approved medication requests have been transmitted electronically. Requested Prescriptions Signed Prescriptions Disp Refills meclizine (ANTIVERT) 12.5 mg tab 20 tablet 0 Sig: Take 1 tablet by mouth three times a day as needed (for dizziness.). Authorizing Provider: PARISH BEASLEY PA-C KEENER, HEATHER 12/21/2024 9:36 AM Signed Spoke with daughter and notified of below. Verbalized understanding. Nuria Hurst LPN Allergies As of Date: 12/20/2024 (No Known Allergies) Date Reviewed: 12/14/2024 Reviewed by: Asha Hernandez, DRILLER HAND.MACHINIST APPRENTICE - Fully Assessed Reason for Visit: Patient Question [5017] Order(s):meclizine (ANTIVERT) 12.5 mg tabTake 1 tablet by mouth three times a day as needed (for dizziness.).Disp: 20 tabletRfl: 0 Prescriptions as of 12/21/2024 - meclizine (ANTIVERT) 12.5 mg tab Take 1 tablet by mouth three times a day as needed (for dizziness.). - lisinopril (ZESTRIL) 10 mg tablet Take 1 tablet by mouth once daily. - Cholecalciferol, Vitamin D3, (VITAMIN D-3) 50 mcg (2,000 unit) cap Take 1 capsule by mouth once daily. - tamsulosin (FLOMAX) 0.4 mg Take 2 capsules by mouth once daily. - sertraline (ZOLOFT) 25 mg tablet Take 1 tablet by mouth once daily. - finasteride (PROSCAR) 5 mg tablet Take 1 tablet by mouth once daily. - cyanocobalamin 1,000 mcg/mL Inject 1 mL intramuscularly one time a week for 30 days, THEN 1 mL every 2 weeks. - clopidogrel (PLAVIX) 75 mg tablet Take 1 tablet by mouth once daily. - atenolol (TENORMIN) 50 mg tablet Take 1 tablet by mouth once daily. - simvastatin (ZOCOR) 20 mg tablet Take 1 tablet by mouth daily at bedtime. - triamcinolone acetonide (KENALOG) 0.1 % cream Apply 1 application to affected area two times a day. For eczema, Apply sparingly to area for rash/itching. - omeprazole 20 mg capsule Take 20 mg by mouth once daily. Take one(1) tablet daily. Problem List As Of Date 12/20/2024 Noted Resolved ACTINIC KERATOSES (Premalignant AK's) [L57.0] 05/27/2006 ACTINIC DAMAGE///CHR SOLAR SKIN DAMAGE NOS [L57*05/27/2006 SEBORRHEIC KERATOSIS INFLAMED [L82.0] 05/27/2006 SOLAR LENTIGINES [L81.9] 05/27/2006 BENIGN FABIAN SKIN FACE NEC [D23.30] 05/27/2006 BENIGN FABIAN SKIN TRUNK [D23.5] 07/02/2006 SEBORRHEIC KERATOSIS NOS [L82.1] 07/02/2006 NEVUS, NON-NEOPLASTIC [I78.1] 07/02/2006 SCAR AND FIBROSIS OF SKIN [L90.5] 07/02/2006 Eczema Dermatitis and Other Eczema, due to Unsp*08/02/2009 Xerosis Cutis [L85.3] 08/02/2009 Unspecified Pruritic Disorder [L29.9] 08/02/2009 Melanocytic Nevus Moles: Intradermal types: of *04/04/2010 BPH associated with nocturia [N40.1, R35.1] 10/01/2019 Bilateral exudative age-related macular degener*10/01/2019 Coronary artery disease due to lipid rich plaqu*10/01/2019 GERD with esophagitis [K21.00] 10/01/2019 Familial hypercholesterolemia [E78.01] 10/01/2019 NSTEMI (non-ST elevated myocardial infarction) *11/09/2019 Diarrhea [R19.7] 02/09/2020 Gastroesophageal reflux disease with esophagiti*06/06/2020 Vitamin D deficiency [E55.9] 12/05/2020 Fatigue [R53.83] 12/05/2020 Dysthymia [F34.1] 12/05/2020 Eczema [L30.9] 12/05/2020 Hypertension, essential [I10] 03/06/2021 AAA (abdominal aortic aneurysm) [I71.40] 05/31/2022 Thrombocytopenia (HCC) [D69.6] 05/31/2022 Acute renal insufficiency [N28.9] 05/31/2022 Vitamin B12 deficiency [E53.8] 06/04/2022 Elevated serum creatinine [R79.89] 06/04/2022 Right inguinal hernia [K40.90] 06/04/2022 06/12/2022 Iron deficiency anemia [D50.9] 12/06/2022 Borderline abnormal thyroid function test [R94.*12/22/2023 Hyperglycemia [R73.9] 06/30/2024 Macular degeneration of both eyes [H35.30] 06/30/2024 Depression [F32.A] 06/30/2024 Prescriptions ordered this encounter Disp Refills Start End MECLIZINE 12.5 MG TABLET 20 t* 0 12/21/2024 Route: ORAL Sig: Take 1 tablet by mouth three times a day as needed (for dizziness.). Encounter Status:Closed by PARISH BEASLEY on 12/21/24 Normal [facility] Absolute lymphocyte countOrd ered By: Cristobal Mayo on 12-14-2024 Lymphocytes Auto (Unsp spec) [#/Vol] 1.05 10*3/uL 0.83-4.51 [facility] Absolute neutrophil countOrd ered By: Cristobal Mayo on 12-14-2024 Neutrophils (Bld) [#/Vol] 4.8 10*3/uL 2.0-7.7 [facility] Activated partial thrombopla stin time (aPTT) in platelet poor plasma by coagulation aOrdered By: Cristobal Mayo on 12-14-2024 aPTT Coag (PPP) [Time] 82.8 s High 24.1-36.2 [facility] Anion gap in Serum or Plasma Ordered By: Cristobal Mayo on 12-14-2024 Anion gap [Moles/Vol] 10 mmol/L 5-15 [facility] Automated lymphocyte count a s percentage of total leukocytesOrdered By: Cristobal Mayo on 12-14-2024 Lymphocytes/100 WBC Auto (Unsp spec) 15.9 % Low - [facility] BUN/creatinine ratioOrdered By: Cristobal Mayo on 12-14-2024 Urea nitrogen/Creatinine [Mass ratio] 16.9 mg/mg - [facility] Basic Metabolic Profile (BMP )on 12-14-2024 BUN/CRE 16.9 RATIO Normal - [facility] Comment on above: Performed By: #### L 100.0100, L500.2500, L300.4310, L300.3900 #### [facility] [address] [place], [address] Calcium [Mass/Vol] 9.6 mg/dL Normal 7.6-11.0 [facility] Comment on above: Performed By: #### L 100.0100, L500.2500, L300.4310, L300.3900 #### [facility] [address] [place], [address] Chloride [Moles/Vol] 106 mmol/L Normal 98-108 [facility] Comment on above: Performed By: #### L 100.0100, L500.2500, L300.4310, L300.3900 #### [facility] [address] [place], [address] CO2 [Moles/Vol] 21.1 mmol/L Normal 21.0-32.0 [facility] Comment on above: Performed By: #### L 100.0100, L500.2500, L300.4310, L300.3900 #### [facility] [address] [place], [address] Creatinine [Mass/Vol] 1.01 mg/dL Normal 0.70-1.20 [facility] Comment on above: Performed By: #### L 100.0100, L500.2500, L300.4310, L300.3900 #### [facility] [address] [place], [address] GAP 10 Normal 5-15 [facility] Comment on above: Performed By: #### L 100.0100, L500.2500, L300.4310, L300.3900 #### [facility] [address] [place], [address] GFR/1.73 sq M.predicted among non-blacks MDRD (S/P/Bld) [Vol rate/Area] 73 mL/min/{1.73_m2} Normal >60 [facility] Comment on above: Result Comment: mL/m in/1.73m2 CKD-EPI Creatinine Equation (2020) Performed By: #### L 100.0100, L500.2500, L300.4310, L300.3900 #### [facility] [address] [place], [address] Glucose [Mass/Vol] 112 mg/dL High 70-99 [facility] Comment on above: Performed By: #### L 100.0100, L500.2500, L300.4310, L300.3900 #### [facility] [address] [place], [address] Potassium [Moles/Vol] 4.0 mmol/L Normal 3.3-5.1 [facility] Comment on above: Performed By: #### L 100.0100, L500.2500, L300.4310, L300.3900 #### [facility] [address] [place], [address] Sodium [Moles/Vol] 137 mmol/L Normal 133-145 [facility] Comment on above: Performed By: #### L 100.0100, L500.2500, L300.4310, L300.3900 #### [facility] [address] [place], [address] Urea nitrogen [Mass/Vol] 17 mg/dL Normal 4-19 [facility] Comment on above: Performed By: #### L 100.0100, L500.2500, L300.4310, L300.3900 #### [facility] [address] [place], [address] Basophil percentageOrdered B y: Cristobal Mayo on 12-14-2024 Basophils/100 WBC (Bld) 0.3 % 0-1 [facility] CBC W/Diff, Automatedon 11-24 Absolute Lymph 1.05 X10 3/uL Normal 0.83-4.51 [facility] Comment on above: Performed By: #### L 100.0100, L500.2500, L300.4310, L300.3900 #### [facility] [address] [place], [address] Absolute Neut 4.8 X10 3/uL Normal 2.0-7.7 [facility] Comment on above: Performed By: #### L 100.0100, L500.2500, L300.4310, L300.3900 #### [facility] [address] [place], [address] Basophils/100 WBC (Bld) 0.3 % Normal 0-1 [facility] Comment on above: Performed By: #### L 100.0100, L500.2500, L300.4310, L300.3900 #### [facility] [address] [place], [address] Eosinophils/100 WBC (Bld) 2.7 % Normal 0-5 [facility] Comment on above: Performed By: #### L 100.0100, L500.2500, L300.4310, L300.3900 #### [facility] [address] [place], [address] Erythrocyte distribution width (RBC) [Ratio] 13.9 % Normal 11.6-14.6 [facility] Comment on above: Performed By: #### L 100.0100, L500.2500, L300.4310, L300.3900 #### [facility] [address] [place], [address] Hematocrit (Bld) [Volume fraction] 41.5 % Normal 40-54 [facility] Comment on above: Performed By: #### L 100.0100, L500.2500, L300.4310, L300.3900 #### [facility] [address] [place], [address] Hemoglobin (Bld) [Mass/Vol] 14.6 g/dL Normal 13.0-16.5 [facility] Comment on above: Performed By: #### L 100.0100, L500.2500, L300.4310, L300.3900 #### [facility] [address] [place], [address] IG% 0.300 Normal 0.0-0.9 [facility] Comment on above: Result Comment: IG% - Immature Granulocytes (promyelocytes, myelocytes and metamyelocytes) > 1% indicates that a LEFT SHIFT is Present. Performed By: #### L 100.0100, L500.2500, L300.4310, L300.3900 #### [facility] [address] [place], [address] Lymphocytes/100 WBC (Bld) 15.9 % Low 19-41 [facility] Comment on above: Performed By: #### L 100.0100, L500.2500, L300.4310, L300.3900 #### [facility] [address] [place], [address] MCH (RBC) [Entitic mass] 28.9 pg Normal 27.0-32.0 [facility] Comment on above: Performed By: #### L 100.0100, L500.2500, L300.4310, L300.3900 #### [facility] [address] [place], [address] MCHC (RBC) [Mass/Vol] 35.2 g/dL Normal 32-36 [facility] Comment on above: Performed By: #### L 100.0100, L500.2500, L300.4310, L300.3900 #### [facility] [address] [place], [address] MCV (RBC) [Entitic vol] 82.2 fL Normal 80-94 [facility] Comment on above: Performed By: #### L 100.0100, L500.2500, L300.4310, L300.3900 #### [facility] [address] [place], [address] Monocytes/100 WBC (Bld) 8.2 % Normal 0-10 [facility] Comment on above: Performed By: #### L 100.0100, L500.2500, L300.4310, L300.3900 #### [facility] [address] [place], [address] Neutrophils/100 WBC (Bld) 72.6 % High 47-70 [facility] Comment on above: Performed By: #### L 100.0100, L500.2500, L300.4310, L300.3900 #### [facility] [address] [place], [address] Nucleated RBC (Bld) [#/Vol] 0 10*3/uL Normal 0-5 [facility] Comment on above: Performed By: #### L 100.0100, L500.2500, L300.4310, L300.3900 #### [facility] [address] [place], [address] Platelet mean volume (Bld) [Entitic vol] 9.4 fL Normal 6.2-12.0 [facility] Comment on above: Performed By: #### L 100.0100, L500.2500, L300.4310, L300.3900 #### [facility] [address] [place], [address] Platelets (Bld) [#/Vol] 122 10*3/uL Low 150-450 [facility] Comment on above: Performed By: #### L 100.0100, L500.2500, L300.4310, L300.3900 #### [facility] [address] [place], [address] RBC (Bld) [#/Vol] 5.05 10*6/uL Normal 4.6-6.2 [facility] Comment on above: Performed By: #### L 100.0100, L500.2500, L300.4310, L300.3900 #### [facility] [address] [place], [address] RDW SD 41.1 fl Normal 35.1-43.9 [facility] Comment on above: Performed By: #### L 100.0100, L500.2500, L300.4310, L300.3900 #### [facility] [address] [place], [address] WBC (Bld) [#/Vol] 6.6 10*3/uL Normal 4.4-11.0 [facility] Comment on above: Performed By: #### L 100.0100, L500.2500, L300.4310, L300.3900 #### [facility] [place], [address] CNOVon 12-14-2024 CNOV Office Visit (INTMWS ) TODD MATAMOROS ([id number]) 1940 M Date Time Provider Department 12/14/24 11:40 AM ASHA HERNANDEZ INTMWS During your visit today, we recorded the following information about you: Pulse Respiration Blood pressure Weight 54/minute 12/minute 152/84 84.1 kg Asha Hernandez, DRILLER HAND.MACHINIST APPRENTICE 12/14/2024 12:34 PM Signed CC: Patient presents with: Vertigo: Dizziness x 1 day HPI Recording using [employer] software for draft documentation of the visit was discussed with the patient/authorized patient service representative; all questions welcomed and answered. Patient/authorized patient service representative agreed to proceed Daryn is a 84-year-old male, with a history of CABG, presenting with acute onset of vertigo and nausea. He is accompanied by his daughter, who is providing additional history. Daryn reports the onset of vertigo last night when he sat up from a supine position to use the bathroom. He describes the sensation as the room spinning and notes that the vertigo subsided after sitting in the bathroom for a while. He denies any previous similar episodes, though he recalls a mild episode years ago that did not require medical attention. He also reports a 2-month history of feeling clumsy when standing and moving, but denies any recent falls or head injuries. Daryn experiences nausea with the vertigo, but denies emesis, fever, chills, otalgia, ear pressure, tinnitus, cephalalgia, chest pain, palpitations, slurred speech, facial drooping, or numbness and tingling. He has not been sick recently and denies any changes in vision since the onset of vertigo. He is not completely blind, but has limited vision. Denies any recent hospitalization, new medications or dose changes. Daryn is on Plavix following a CABG and denies any current cardiac issues. His BP is elevated today and orthostatic vital signs were positive, he has not been monitoring his blood pressure at home. 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 Lower abdomen. BPH (benign prostatic hyperplasia) CAD (coronary artery disease) Diverticulosis of colon (without mention of hemorrhage) GERD (gastroesophageal reflux disease) Hyperlipidemia Hypertension Internal hemorrhoids without mention of complication Macular degeneration NSTEMI (non-ST elevated myocardial infarction) ([facility]) 10/28/2019 Osteoarthritis of left hip Paresthesia PMH - PAST MEDICAL HISTORY OF sood PMH - PAST MEDICAL HISTORY OF heart problems PMH - PAST MEDICAL HISTORY OF problems with disc PMH - PAST MEDICAL HISTORY OF age 7 rheumatic fever PMH - PAST MEDICAL HISTORY OF syncope Spinal stenosis, unspecified region other than cervical lumbar Urinary incontinence PAST SURGICAL HISTORY Procedure Laterality Date ARTHRP ACETBLR/PROX FEM PROSTC AGRFT/ALGRFT Left 11/26/2017 Dr. Sukhjinder Lewis AVASTIN (BEVACIZUMAB) 1.25MG INTRAVITREAL INJECTION OD (RIGHT EYE) Right multiple COLONOSCOPY FLX DX W/COLLJ SPEC WHEN PFRMD 07/28/2007 DIR RPR ANEURYSM ABDOMINAL AORTA 04/20/2011 [facility] EYLEA (AFLIBERCEPT) 2MG INTRAVITREAL INJECTION OD (RIGHT EYE) Right 2017 x 3 INGUINAL HERNIA REPAIR HX Bilateral 06/12/2022 with mesh OTHER 10/28/2019 PTCA/BRYSON X2 in the saphenous vein graft to OM1. PAST SURGICAL HISTORY OF 09/1996 CABG PAST SURGICAL HISTORY OF 2004, 2016 Back PAST SURGICAL HISTORY OF cardiac cath PAST SURGICAL HISTORY OF 2004 right hip replacement PAST SURGICAL HISTORY OF 06/2007 surveillance cardiac cath PAST SURGICAL HISTORY OF 12/2009 Heart Cath PAST SURGICAL HISTORY OF Left 11/2017 Left Hip Surgery PERIPH ANEUR ARM KHADIJAH MAP INPT 2010 PRICARDIECTOMY STOT/COMPL W/CARDPULM BYPASS 1996 TONSILLECTOMY PRIMARY/SECONDARY Tonsillectomy XCAPSL CTRC RMVL INSJ IO LENS PROSTH W/O ECP Bilateral Cataract Extraction with PC IOL ALLERGIES Patient has no known allergies. MEDICATIONS lisinopril (ZESTRIL) 10 mg tablet Take 1 tablet by mouth once daily. Cholecalciferol, Vitamin D3, (VITAMIN D-3) 50 mcg (2,000 unit) cap Take 1 capsule by mouth once daily. tamsulosin (FLOMAX) 0.4 mg Take 2 capsules by mouth once daily. sertraline (ZOLOFT) 25 mg tablet Take 1 tablet by mouth once daily. finasteride (PROSCAR) 5 mg tablet Take 1 tablet by mouth once daily. cyanocobalamin 1,000 mcg/mL Inject 1 mL intramuscularly one time a week for 30 days, THEN 1 mL every 2 weeks. clopidogrel (PLAVIX) 75 mg tablet Take 1 tablet by mouth once daily. atenolol (TENORMIN) 50 mg tablet Take 1 tablet by mouth once daily. simvastatin (ZOCOR) 20 mg tablet Take 1 tablet by mouth daily at bedtime. triamcinolone acetonide (KENALOG) 0.1 % cream Apply 1 application to affected area two times a day. For eczema, Apply sparingly to area for rash/itching. omeprazole 20 mg capsule Take 20 mg b (more content not included)... Normal [facility] 12-14-2024 [facility] Telephone (ISAIASWS) TODD MATAMOROS ([id number]) 1940 M Date Time Provider Department 12/14/24 ROBEL ONOFRE [facility] During your visit today, we recorded the following information about you: Debra Romero LPN 12/14/2024 9:41 AM Signed Pt's daughter calls to report that pt is having vertigo-spinning sensation/dizziness. Daughter reports this started last night. Daughter reports it is causing some imbalance. Daughter denies: N/V, fever, MCCLAIN, SOB, one-sided weakness, trouble speaking or forming words. Daughter reports she is not currently with pt but was with him this morning and was going back to pt. Appt scheduled for this morning. Debra Romero LPN Allergies As of Date: 12/14/2024 (No Known Allergies) Date Reviewed: 06/30/2024 Reviewed by: Rodney Kirk LPN - Fully Assessed Reason for Visit: Vertigo [3853] Prescriptions as of 12/14/2024 - lisinopril (ZESTRIL) 10 mg tablet Take 1 tablet by mouth once daily. - Cholecalciferol, Vitamin D3, (VITAMIN D-3) 50 mcg (2,000 unit) cap Take 1 capsule by mouth once daily. - tamsulosin (FLOMAX) 0.4 mg Take 2 capsules by mouth once daily. - sertraline (ZOLOFT) 25 mg tablet Take 1 tablet by mouth once daily. - finasteride (PROSCAR) 5 mg tablet Take 1 tablet by mouth once daily. - cyanocobalamin 1,000 mcg/mL Inject 1 mL intramuscularly one time a week for 30 days, THEN 1 mL every 2 weeks. - clopidogrel (PLAVIX) 75 mg tablet Take 1 tablet by mouth once daily. - atenolol (TENORMIN) 50 mg tablet Take 1 tablet by mouth once daily. - simvastatin (ZOCOR) 20 mg tablet Take 1 tablet by mouth daily at bedtime. - triamcinolone acetonide (KENALOG) 0.1 % cream Apply 1 application to affected area two times a day. For eczema, Apply sparingly to area for rash/itching. - omeprazole 20 mg capsule Take 20 mg by mouth once daily. Take one(1) tablet daily. Problem List As Of Date 12/14/2024 Noted Resolved ACTINIC KERATOSES (Premalignant AK's) [L57.0] 05/27/2006 ACTINIC DAMAGE///CHR SOLAR SKIN DAMAGE NOS [L57*05/27/2006 SEBORRHEIC KERATOSIS INFLAMED [L82.0] 05/27/2006 SOLAR LENTIGINES [L81.9] 05/27/2006 BENIGN FABIAN SKIN FACE NEC [D23.30] 05/27/2006 BENIGN FABIAN SKIN TRUNK [D23.5] 07/02/2006 SEBORRHEIC KERATOSIS NOS [L82.1] 07/02/2006 NEVUS, NON-NEOPLASTIC [I78.1] 07/02/2006 SCAR AND FIBROSIS OF SKIN [L90.5] 07/02/2006 Eczema Dermatitis and Other Eczema, due to Unsp*08/02/2009 Xerosis Cutis [L85.3] 08/02/2009 Unspecified Pruritic Disorder [L29.9] 08/02/2009 Melanocytic Nevus Moles: Intradermal types: of *04/04/2010 BPH associated with nocturia [N40.1, R35.1] 10/01/2019 Bilateral exudative age-related macular degener*10/01/2019 Coronary artery disease due to lipid rich plaqu*10/01/2019 GERD with esophagitis [K21.00] 10/01/2019 Familial hypercholesterolemia [E78.01] 10/01/2019 NSTEMI (non-ST elevated myocardial infarction) *11/09/2019 Diarrhea [R19.7] 02/09/2020 Gastroesophageal reflux disease with esophagiti*06/06/2020 Vitamin D deficiency [E55.9] 12/05/2020 Fatigue [R53.83] 12/05/2020 Dysthymia [F34.1] 12/05/2020 Eczema [L30.9] 12/05/2020 Hypertension, essential [I10] 03/06/2021 AAA (abdominal aortic aneurysm) [I71.40] 05/31/2022 Thrombocytopenia (HCC) [D69.6] 05/31/2022 Acute renal insufficiency [N28.9] 05/31/2022 Vitamin B12 deficiency [E53.8] 06/04/2022 Elevated serum creatinine [R79.89] 06/04/2022 Right inguinal hernia [K40.90] 06/04/2022 06/12/2022 Iron deficiency anemia [D50.9] 12/06/2022 Borderline abnormal thyroid function test [R94.*12/22/2023 Hyperglycemia [R73.9] 06/30/2024 Macular degeneration of both eyes [H35.30] 06/30/2024 Depression [F32.A] 06/30/2024 Encounter Status:Closed by DEBRA ROMERO on 12/14/24 Normal [facility] CTA Head AND Neck W/ Contras ton 12-14-2024 CTA Head AND Neck W/ Contrast [facility] Imaging Services [address] [place] [address] CTA Head AND Neck W/ Contrast MR#: [id number] Acct: [id number] Name: TODD MATAMOROS Rep #: [id number] : 1940 M 84 From: Galindo redding MD PCP: Dr. Robel Onofre, DO Status: REG ER Study: CTA Head AND Neck W/ Contrast Date of Exam: Exam# [id number] Ordering Dr: Cristobal Mayo DO PROCEDURE: CTA HEAD AND NECK W/ CONTRAST 12/14/2024 REASON FOR EXAM: VERTIGO TECHNIQUE: CTA imaging of the head and neck from the aortic arch to the skull vertex with out constrast and with intravenous contrast. Coronal and Sagittal reconstruction series were provided. 3D post processing with reformations, Maximum intensity projection (MIPs) Volume rendering and Shaded surface rendering was provided. CONTRAST: Isovue 370 VOLUME: 88 mL One or more dose reduction techniques were used (e.g., Automated exposure control, adjustment of the mA and/or kV according to patient size, use of iterative reconstruction technique). RADIATION DOSE SUMMARY: CTDlvol: 33.3 mGy DLP: 1574.76 mGycm COMPARISON: None FINDINGS: Aortic Arch: Normal size and branching pattern. Mild atherosclerotic plaque. Brachiocephalic and Subclavians: Mild atherosclerotic plaque without significant stenosis. Prior CABG. RIGHT Carotid: Right CCA: Unremarkable. Right ICA: Mild calcified and soft plaque. Maximum stenosis (NASCET): <50 % Right ECA: Unremarkable. LEFT Carotid: Left CCA: Unremarkable. Left ICA: Unremarkable. Left ECA: Unremarkable. Vertebrals: Codominant. Arise from the subclavians. Both vertebrals form the basilar. RIGHT Vertebral: Unremarkable. LEFT Vertebral: Unremarkable. Anatomy: [place] anatomy is normal. Aneurysm or avm: No intracranial aneurysms or large vascular malformations are identified. Anterior cerebral arteries: Unremarkable: Middle cerebral arteries: Unremarkable. Basilar artery: Unremarkable. Posterior cerebral arteries: Unremarkable. Other major branches of the posterior circulation: Unremarkable. Major venous structures: Unremarkable. Other findings: Neck: No lymphadenopathy. Lungs: Lung apices are clear. Bones: Unenhanced brain examination was performed as well. Mild degree of cerebral atrophy as well as decreased attenuation in the bilateral periventricular white matter suggestive of chronic small-vessel disease. CT/CTA Head AND Neck W/ Contrast IMPRESSION: Minimal plaque formation at the origin of the right internal carotid artery. Cerebral atrophy. Reading Location: [place] [address] CC: Dr. Robel Onofre DO; Dr. Cristobal Mayo DO Mill Control Operator: Signed Normal [facility] Carbon dioxide, total [Moles /volume] in Central venous bloodOrdered By: Cristobal Mayo on 12-14-2024 CO2 [Moles/Vol] 21.1 mmol/L 21.0-32.0 [facility] Chloride assayOrdered By: Geovanni Mayo on 12-14-2024 Chloride [Moles/Vol] 106 mmol/L 98-108 [facility] Emergency Department Summary on 12-14-2024 Emergency Department Summary [facility] Medical Records Department [address] [place] [address] Emergency Department Summary 12/14/24 MR#: [id number] Acct: [id number] Name: TODD MATAMOROS Rep #: [id number] : 1940 84 From: Cristobal Ivory PCP: Dr. Robel Onofre DO Status:DEP ER Location: ED HPI History of Present Illness Chief Complaint: Dizziness Informant: patient and family Narrative Narrative: Patient here with daughter sent from PCP office Dr. Onofre for evaluation of vertigo symptoms. History of coronary disease with bypass in the past. Reports macular degeneration only 10% vision left. Has been on and off dizzy symptoms for months symptoms worsened yesterday while going to the bathroom. He states felt like room was spinning yesterday. He had evaluation in the office with David-Hallpike fully explained to the right he sat up and threw up. No headache. No recent upper respiratory symptoms or sinus symptoms. Does wear hearing aids. No allergies. Currently resting no symptoms. He ambulates with guidance from his daughter. Prior similar symptoms: Yes PFSH [facility] Medical History Hiatal hernia Restless legs High cholesterol History of stress test HTN (hypertension) Heart attack Macular degeneration of both eyes Atherosclerosis of coronary artery bypass graft(s) without angina pectoris Dyspnea on exertion Atherosclerosis of council coronary artery of council heart without angina pectoris Lupus anticoagulant disorder Syncope Spinal stenosis Rheumatic fever Essential (primary) hypertension Hyperlipemia, mixed Home Medications ???Medication ???Instructions ???Recorded ???Last Taken ???Type finasteride 5 mg tablet 5 mg PO DAILY prostate 02/23/18 History aspirin 81 mg tablet,delayed 81 mg PO DAILY blood thinner 08/1112/13/24 History release (Adult Aspirin Regimen) tamsulosin 0.4 mg capsule 0.4 mg PO BID prostate 10/27/19 History atenolol 50 mg tablet 50 mg PO DAILY BLOOD PRESSURE 10/2412/14/24 History clopidogrel 75 mg tablet 75 mg PO DAILY BLOOD THINNER #90 0 02/07/20 12/14/24 Rx tabs simvastatin 20 mg tablet 20 mg PO QHS cholesterol #90 tabs 11/10/20 12/13/24 Rx cholecalciferol (vitamin D3) 50 50 mcg PO DAILY SUPPLEMENT 2 12/13/24 History mcg (2,000 unit) capsule (Vitamin D3) omeprazole 20 mg capsule,delayed 20 mg PO DAILY 02/07/23 12/13/24 H istory release sertraline 25 mg tablet 25 mg PO DAILY 02/06/24 12/13/24 H istory cyanocobalamin (vitamin B-12) 1,000 mcg IM .COMPLEX 12/14/2404/18 History 1,000 mcg/mL injection solution lisinopril 10 mg tablet 10 mg PO DAILY 12/14/24 12/14/24 H istory meclizine 12.5 mg tablet 12.5 mg PO TID PRN dizziness #20 0 12/14/24 Unknown Rx tabs Allergy/AdvReac Type Severity Reaction Status Date / Time No Known Allergies Allergy Verified 12/14/24 12:42 Family History Mother CAD (coronary artery disease) Brother CAD (coronary artery disease) CABG Brother CAD (coronary artery disease) Surgical History Status post bilateral inguinal hernia repair Status post cardiac surgery History of heart artery stent H/O cardiac catheterization History of tonsillectomy 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) Stented coronary artery (10/28/19) H/O coronary artery bypass surgery History of endovascular stent graft for abdominal aortic aneurysm (AAA) History of left heart catheterization Social History Smoking Status: Former smoker how long ago did patient quit smokin years ago alcohol intake: never substance use type: does not use caffeine: Yes Type: coffee Number of servings: 4 ROS ROS ED Constitutional Constitutional ED: Denies chills, fever(s) or sweats ENT ENT ED: Denies sore throat Cardiovascular Cardiovascular: Denies chest pain, leg edema, palpitations or racing heartbeat Respiratory/Chest Respiratory/Chest: Denies cough, dyspnea or dyspnea on exertion Gastrointestinal Gastrointestinal: Reports nausea and vomiting; Denies abdominal pain or diarrhea Genitourinary Genitourinary ED: Denies dysuria, hematuria or urinary frequency Musculoskeletal Musculoskeletal: Denies back pain, extremity pain or neck pain Integumentary Denies rash or wounds Neurologic Neurologic: Reports other Details: Vertical ; Denies headache(s), paresthesias or weakness EXAM Physical Exam Const Vital Signs: 12/14/24 12:40 12/14/24 14:39 12/14/24 14:57 Temperature 97.4 F L 97.4 F L Temperature Source Oral Pulse Rate 52 L 52 L Respiratory Rate 18 18 Blood Pressure 188/86 H 174/92 H 174/9 (more content not included)... Normal [facility] Eosinophil percentageOrdered By: Cristobal Mayo on 12-14-2024 Eosinophils/100 WBC (Bld) 2.7 % 0-5 [facility] Erythrocyte distribution wid th (RBC) [Ratio]Ordered By: Cristobal Mayo on 12-14-2024 Erythrocyte distribution width (RBC) [Entitic vol] 41.1 fL 35.1-43.9 [facility] Erythrocyte distribution wid th ratioOrdered By: Cristobal Mayo on 12-14-2024 Erythrocyte distribution width (RBC) [Ratio] 13.9 % 11.6-14.6 [facility] Erythrocyte distribution wid th standard deviationOrdered By: Cristobal Mayo on 12-14-2024 Erythrocyte distribution width (RBC) [Ratio] 41.1 fl 35.1-43.9 [facility] GFR/1.73 sq M.predicted lebron g non-blacks MDRD (S/P/Bld) [Vol rate/Area]Ordered By: Cristobal Mayo on 12-14-2024 Estimated GFR (MDRD) Non-Af Amer 73 >60 [facility] Comment on above: mL/min/1.73m2 CKD-EP I Creatinine Equation (2020) Glomerular filtration rate ( GFR) estimation/1.73 sq m using serum, plasma, or whole bOrdered By: Cristobal Mayo on 12-14-2024 GFR/1.73 sq M.predicted among non-blacks MDRD (S/P/Bld) [Vol rate/Area] 73 mL/min/{1.73_m2} >60 [facility] Comment on above: mL/min/1.73m2 CKD-EP I Creatinine Equation (2020) Hematocrit Auto (Bld) [Volum e fraction]Ordered By: Cristobal Mayo on 12-14-2024 Hematocrit (Bld) [Volume fraction] 41.5 % 40-54 [facility] Hemoglobin measurementOrdere d By: Cristobal Mayo on 12-14-2024 Hemoglobin (Bld) [Mass/Vol] 14.6 g/dL 13.0-16.5 [facility] Immature granulocytes/100 WB C Auto (Bld)Ordered By: Cristobal Mayo on 12-14-2024 Immature granulocytes/100 WBC (Bld) 0.300 % 0.0-0.9 [facility] Comment on above: IG% - Immature Granu locytes (promyelocytes, myelocytes and metamyelocytes) > 1% indicates that a LEFT SHIFT is Present. International normalized rat io (INR) calculationOrdered By: Cristobal Mayo on 12-14-2024 INR Coag (Bld) [Relative time] 1.1 {INR} [facility] Lymphocytes Auto (Unsp spec) [#/Vol]Ordered By: Cristobal Mayo on 12-14-2024 Lymphocytes (Bld) [#/Vol] 1.05 10*3/uL 0.83-4.51 [facility] Lymphocytes/100 WBC Auto (Un sp spec)Ordered By: Cristobal Mayo on 12-14-2024 Lymphocytes/100 WBC (Bld) 15.9 % Low 19-41 [facility] MCV (mean corpuscular volume ) determinationOrdered By: Cristobal Mayo on 12-14-2024 MCV (RBC) [Entitic vol] 82.2 fL 80-94 [facility] Mean corpuscular hemoglobin (MCH) determinationOrdered By: Cristobal Mayo on 12-14-2024 MCH (RBC) [Entitic mass] 28.9 pg 27.0-32.0 [facility] Mean corpuscular hemoglobin concentration (MCHC) determinationOrdered By: Cristobal Mayo on 12-14-2024 MCHC (RBC) [Mass/Vol] 35.2 g/dL 32-36 [facility] Mean platelet volume determi nationOrdered By: Cristobal Mayo on 12-14-2024 Platelet mean volume (Bld) [Entitic vol] 9.4 fL 6.2-12.0 [facility] Monocyte percentageOrdered B y: Cristobal Mayo on 12-14-2024 Monocytes/100 WBC (Bld) 8.2 % 0-10 [facility] Neutrophil percentageOrdered By: Cristobal Mayo on 12-14-2024 Neutrophils/100 WBC (Bld) 72.6 % High 47-70 [facility] Nucleated red blood cell per centageOrdered By: Cristobal Mayo on 12-14-2024 Nucleated RBC/100 WBC (Bld) [Ratio] 0 % 0-5 [facility] Partial Thromboplast Timeon 12-14-2024 aPTT Coag (Bld) [Time] 82.8 s High 24.1-36.2 [facility] Comment on above: Performed By: #### L 100.0100, L500.2500, L300.4310, L300.3900 #### [facility] [address] [place], [address] Platelet countOrdered By: Geovanni Mayo on 12-14-2024 Platelets (Bld) [#/Vol] 122 10*3/uL Low 150-450 [facility] Potassium (Unsp spec) [Mass/ Vol]Ordered By: Cristobal Mayo on 12-14-2024 Potassium [Moles/Vol] 4.0 mmol/L 3.3-5.1 [facility] Potassium measurement (mass/ volume)Ordered By: Cristobal Mayo on 12-14-2024 Potassium (Unsp spec) [Mass/Vol] 4.0 mmol/L 3.3-5.1 [facility] Prothrombin Time w/INRon INR Coag (PPP) [Relative time] 1.1 {INR} Normal [facility] Comment on above: Performed By: #### L 100.0100, L500.2500, L300.4310, L300.3900 #### [facility] [address] [place], [address] PT Coag (PPP) [Time] 14.0 s Normal 11.7-14.9 [facility] Comment on above: Performed By: #### L 100.0100, L500.2500, L300.4310, L300.3900 #### [facility] [address] [place], [address] Prothrombin timeOrdered By: Cristobal Mayo on 12-14-2024 PT Coag (PPP) [Time] 14.0 s 11.7-14.9 [facility] RBC Auto (Bld) [#/Vol]Ordere d By: Cristobal Mayo on 12-14-2024 RBC (Bld) [#/Vol] 5.05 10*6/uL 4.6-6.2 [facility] Serum creatinine measurement (mass/volume)Ordered By: Cristobal Mayo on 12-14-2024 Creatinine [Mass/Vol] 1.01 mg/dL 0.70-1.20 [facility] Serum glucose measurement (m ass/volume)Ordered By: Cristobal Mayo on 12-14-2024 Glucose [Mass/Vol] 112 mg/dL High 70-99 [facility] Serum or plasma calcium kimmie urement (mass/volume)Ordered By: Cristobal Mayo on 12-14-2024 Calcium [Mass/Vol] 9.6 mg/dL 7.6-11.0 [facility] Serum or plasma urea nitroge n measurement (mass/volume)Ordered By: Cristobal Mayo on 12-14-2024 Urea nitrogen [Mass/Vol] 17 mg/dL 4-19 [facility] Sodium levelOrdered By: Cristobal Mayo on 12-14-2024 Sodium [Moles/Vol] 137 mmol/L 133-145 [facility] White blood cell (WBC) count Ordered By: Cristobal Mayo on 12-14-2024 WBC (Bld) [#/Vol] 6.6 10*3/uL 4.4-11.0 [facility] aPTT Coag (PPP) [Time]Ordere d By: Cristobal Mayo on 12-14-2024 aPTT Coag (Bld) [Time] 82.8 s High 24.1-36.2 [facility] CNPNon 10-08-2024 CNPN Telephone (FAMDahianaWS) TODD MATAMOROS ([id number]) 1940 M Date Time Provider Department 10/08/24 ROBEL ONOFRE During your visit today, we recorded the following information about you: Zenaida Morrissey 10/08/2024 8:17 AM Signed Shy is calling Robel Onofre DO today to request Letter (Blindness confirmation for taxes) Patient has been identified by name and birthdate. Duration of symptoms: N/A Person calling: daughter: Jadyn Lew patient at: [phone] Was an appointment scheduled: No Closing statement: Robel Wilson DO 10/12/2024 7:48 AM Signed Okay for letter. 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 Please compose letter for me to review and sign DO Luan Hernandez Susan LPN 10/12/2024 1:40 PM Signed Letter signed on Nurse's desk 2nd floor. Allergies As of Date: 10/08/2024 (No Known Allergies) Date Reviewed: 06/30/2024 Reviewed by: Rodney Kirk LPN - Fully Assessed Reason for Visit: Letter [264] Cmt: Blindness confirmation for taxes Prescriptions as of 10/12/2024 - sertraline (ZOLOFT) 25 mg tablet Take 1 tablet by mouth once daily. - finasteride (PROSCAR) 5 mg tablet Take 1 tablet by mouth once daily. - cyanocobalamin 1,000 mcg/mL Inject 1 mL intramuscularly one time a week for 30 days, THEN 1 mL every 2 weeks. - tamsulosin (FLOMAX) 0.4 mg Take 2 capsules by mouth once daily. - clopidogrel (PLAVIX) 75 mg tablet Take 1 tablet by mouth once daily. - atenolol (TENORMIN) 50 mg tablet Take 1 tablet by mouth once daily. - simvastatin (ZOCOR) 20 mg tablet Take 1 tablet by mouth daily at bedtime. - lisinopril (ZESTRIL) 10 mg tablet Take 1 tablet by mouth once daily. - Cholecalciferol, Vitamin D3, (VITAMIN D-3) 50 mcg (2,000 unit) cap Take 1 capsule by mouth once daily. - triamcinolone acetonide (KENALOG) 0.1 % cream Apply 1 application to affected area two times a day. For eczema, Apply sparingly to area for rash/itching. - omeprazole 20 mg capsule Take 20 mg by mouth once daily. Take one(1) tablet daily. Problem List As Of Date 10/08/2024 Noted Resolved ACTINIC KERATOSES (Premalignant AK's) [L57.0] 05/27/2006 ACTINIC DAMAGE///CHR SOLAR SKIN DAMAGE NOS [L57*05/27/2006 SEBORRHEIC KERATOSIS INFLAMED [L82.0] 05/27/2006 SOLAR LENTIGINES [L81.9] 05/27/2006 BENIGN FABIAN SKIN FACE NEC [D23.30] 05/27/2006 BENIGN FABIAN SKIN TRUNK [D23.5] 07/02/2006 SEBORRHEIC KERATOSIS NOS [L82.1] 07/02/2006 NEVUS, NON-NEOPLASTIC [I78.1] 07/02/2006 SCAR AND FIBROSIS OF SKIN [L90.5] 07/02/2006 Eczema Dermatitis and Other Eczema, due to Unsp*08/02/2009 Xerosis Cutis [L85.3] 08/02/2009 Unspecified Pruritic Disorder [L29.9] 08/02/2009 Melanocytic Nevus Moles: Intradermal types: of *04/04/2010 BPH associated with nocturia [N40.1, R35.1] 10/01/2019 Bilateral exudative age-related macular degener*10/01/2019 Coronary artery disease due to lipid rich plaqu*10/01/2019 GERD with esophagitis [K21.00] 10/01/2019 Familial hypercholesterolemia [E78.01] 10/01/2019 NSTEMI (non-ST elevated myocardial infarction) *11/09/2019 Diarrhea [R19.7] 02/09/2020 Gastroesophageal reflux disease with esophagiti*06/06/2020 Vitamin D deficiency [E55.9] 12/05/2020 Fatigue [R53.83] 12/05/2020 Dysthymia [F34.1] 12/05/2020 Eczema [L30.9] 12/05/2020 Hypertension, essential [I10] 03/06/2021 AAA (abdominal aortic aneurysm) [I71.40] 05/31/2022 Thrombocytopenia (HCC) [D69.6] 05/31/2022 Acute renal insufficiency [N28.9] 05/31/2022 Vitamin B12 deficiency [E53.8] 06/04/2022 Elevated serum creatinine [R79.89] 06/04/2022 Right inguinal hernia [K40.90] 06/04/2022 06/12/2022 Iron deficiency anemia [D50.9] 12/06/2022 Borderline abnormal thyroid function test [R94.*12/22/2023 Hyperglycemia [R73.9] 06/30/2024 Macular degeneration of both eyes [H35.30] 06/30/2024 Depression [F32.A] 06/30/2024 Letter Text Encounter Status:Closed by RODNEY KIRK LPN on 10/12/24 [facility] Rosanna 08-30-2024 LEON Telephone (FAMPWS) TODD MATAMOROS ([id number]) 1940 M Date Time Provider Department 08/30/24 ROBEL ONOFRE During your visit today, we recorded the following information about you: Rodney Kirk LPN 08/30/2024 12:11 PM Signed Type of form: Deaf and blind form Form received via walk in When form is completed, PhoneTina when complete.[phone] Form has been forwarded to Physician Desk: Shahla Peguero D.O., LPN, SAMUEL 09/01/2024 10:55 AM Signed Daughter calls to ask if form could be completed today as she is unexpectedly leaving to go out of town late this afternoon. Notified daughter that I was uncertain that letter would be completed that quickly. Daughter voices understanding and requests if can't be completed today to please send it to her in the mail at [phone] [phone]. SAMUEL Delgado Jordan L, DO 09/01/2024 8:16 PM Signed Paperwork is complete now DO Jason Hernandez Linda M, LPN 09/02/2024 8:44 AM Signed Forms mailed to Jadyn's home address as requested. Copy placed in chart of forms. Allergies As of Date: 08/30/2024 (No Known Allergies) Date Reviewed: 06/30/2024 Reviewed by: Rodney Kirk LPN - Fully Assessed Prescriptions as of 11/30/2024 - Cholecalciferol, Vitamin D3, (VITAMIN D-3) 50 mcg (2,000 unit) cap Take 1 capsule by mouth once daily. - tamsulosin (FLOMAX) 0.4 mg Take 2 capsules by mouth once daily. - sertraline (ZOLOFT) 25 mg tablet Take 1 tablet by mouth once daily. - finasteride (PROSCAR) 5 mg tablet Take 1 tablet by mouth once daily. - cyanocobalamin 1,000 mcg/mL Inject 1 mL intramuscularly one time a week for 30 days, THEN 1 mL every 2 weeks. - clopidogrel (PLAVIX) 75 mg tablet Take 1 tablet by mouth once daily. - atenolol (TENORMIN) 50 mg tablet Take 1 tablet by mouth once daily. - simvastatin (ZOCOR) 20 mg tablet Take 1 tablet by mouth daily at bedtime. - lisinopril (ZESTRIL) 10 mg tablet Take 1 tablet by mouth once daily. - triamcinolone acetonide (KENALOG) 0.1 % cream Apply 1 application to affected area two times a day. For eczema, Apply sparingly to area for rash/itching. - omeprazole 20 mg capsule Take 20 mg by mouth once daily. Take one(1) tablet daily. Problem List As Of Date 08/30/2024 Noted Resolved ACTINIC KERATOSES (Premalignant AK's) [L57.0] 05/27/2006 ACTINIC DAMAGE///CHR SOLAR SKIN DAMAGE NOS [L57*05/27/2006 SEBORRHEIC KERATOSIS INFLAMED [L82.0] 05/27/2006 SOLAR LENTIGINES [L81.9] 05/27/2006 BENIGN FABIAN SKIN FACE NEC [D23.30] 05/27/2006 BENIGN FABIAN SKIN TRUNK [D23.5] 07/02/2006 SEBORRHEIC KERATOSIS NOS [L82.1] 07/02/2006 NEVUS, NON-NEOPLASTIC [I78.1] 07/02/2006 SCAR AND FIBROSIS OF SKIN [L90.5] 07/02/2006 Eczema Dermatitis and Other Eczema, due to Unsp*08/02/2009 Xerosis Cutis [L85.3] 08/02/2009 Unspecified Pruritic Disorder [L29.9] 08/02/2009 Melanocytic Nevus Moles: Intradermal types: of *04/04/2010 BPH associated with nocturia [N40.1, R35.1] 10/01/2019 Bilateral exudative age-related macular degener*10/01/2019 Coronary artery disease due to lipid rich plaqu*10/01/2019 GERD with esophagitis [K21.00] 10/01/2019 Familial hypercholesterolemia [E78.01] 10/01/2019 NSTEMI (non-ST elevated myocardial infarction) *11/09/2019 Diarrhea [R19.7] 02/09/2020 Gastroesophageal reflux disease with esophagiti*06/06/2020 Vitamin D deficiency [E55.9] 12/05/2020 Fatigue [R53.83] 12/05/2020 Dysthymia [F34.1] 12/05/2020 Eczema [L30.9] 12/05/2020 Hypertension, essential [I10] 03/06/2021 AAA (abdominal aortic aneurysm) [I71.40] 05/31/2022 Thrombocytopenia (HCC) [D69.6] 05/31/2022 Acute renal insufficiency [N28.9] 05/31/2022 Vitamin B12 deficiency [E53.8] 06/04/2022 Elevated serum creatinine [R79.89] 06/04/2022 Right inguinal hernia [K40.90] 06/04/2022 06/12/2022 Iron deficiency anemia [D50.9] 12/06/2022 Borderline abnormal thyroid function test [R94.*12/22/2023 Hyperglycemia [R73.9] 06/30/2024 Macular degeneration of both eyes [H35.30] 06/30/2024 Depression [F32.A] 06/30/2024 Encounter Status:Closed by RODNEY KIRK LPN on 11/30/24 [facility] ([id number]) 1940 M Date Time Provider Department 07/01/24 ROBEL ONOFRE During your visit today, we recorded the following information about you: Robel Onofre DO 07/01/2024 10:46 AM Signed Please inform patient or daughters that his labs are overall stable. Urine has a little protein and is dark and concentrated. Needs to be drinking more water. DO Ella Hernandez Kim E, LPN 07/01/2024 11:50 AM Signed Patient notified and verbalized understanding. Kortney Bonner LPN Allergies As of Date: 07/01/2024 (No Known Allergies) Date Reviewed: 06/30/2024 Reviewed by: Rodney Kirk LPN - Fully Assessed Prescriptions as of 07/01/2024 - tamsulosin (FLOMAX) 0.4 mg Take 2 capsules by mouth once daily. - clopidogrel (PLAVIX) 75 mg tablet Take 1 tablet by mouth once daily. - atenolol (TENORMIN) 50 mg tablet Take 1 tablet by mouth once daily. - cyanocobalamin 1,000 mcg/mL Inject 1 mL intramuscularly one time a week for 30 days, THEN 1 mL every 2 weeks. - sertraline (ZOLOFT) 25 mg tablet Take 1 tablet by mouth once daily. - simvastatin (ZOCOR) 20 mg tablet Take 1 tablet by mouth daily at bedtime. - lisinopril (ZESTRIL) 10 mg tablet Take 1 tablet by mouth once daily. - Cholecalciferol, Vitamin D3, (VITAMIN D-3) 50 mcg (2,000 unit) cap Take 1 capsule by mouth once daily. - finasteride (PROSCAR) 5 mg tablet Take 1 tablet by mouth once daily. - triamcinolone acetonide (KENALOG) 0.1 % cream Apply 1 application to affected area two times a day. For eczema, Apply sparingly to area for rash/itching. - omeprazole 20 mg capsule Take 20 mg by mouth once daily. Take one(1) tablet daily. Problem List As Of Date 07/01/2024 Noted Resolved ACTINIC KERATOSES (Premalignant AK's) [L57.0] 05/27/2006 ACTINIC DAMAGE///CHR SOLAR SKIN DAMAGE NOS [L57*05/27/2006 SEBORRHEIC KERATOSIS INFLAMED [L82.0] 05/27/2006 SOLAR LENTIGINES [L81.9] 05/27/2006 BENIGN FABIAN SKIN FACE NEC [D23.30] 05/27/2006 BENIGN FABIAN SKIN TRUNK [D23.5] 07/02/2006 SEBORRHEIC KERATOSIS NOS [L82.1] 07/02/2006 NEVUS, NON-NEOPLASTIC [I78.1] 07/02/2006 SCAR AND FIBROSIS OF SKIN [L90.5] 07/02/2006 Eczema Dermatitis and Other Eczema, due to Unsp*08/02/2009 Xerosis Cutis [L85.3] 08/02/2009 Unspecified Pruritic Disorder [L29.9] 08/02/2009 Melanocytic Nevus Moles: Intradermal types: of *04/04/2010 BPH associated with nocturia [N40.1, R35.1] 10/01/2019 Bilateral exudative age-related macular degener*10/01/2019 Coronary artery disease due to lipid rich plaqu*10/01/2019 GERD with esophagitis [K21.00] 10/01/2019 Familial hypercholesterolemia [E78.01] 10/01/2019 NSTEMI (non-ST elevated myocardial infarction) *11/09/2019 Diarrhea [R19.7] 02/09/2020 Gastroesophageal reflux disease with esophagiti*06/06/2020 Vitamin D deficiency [E55.9] 12/05/2020 Fatigue [R53.83] 12/05/2020 Dysthymia [F34.1] 12/05/2020 Eczema [L30.9] 12/05/2020 Hypertension, essential [I10] 03/06/2021 AAA (abdominal aortic aneurysm) [I71.40] 05/31/2022 Thrombocytopenia (HCC) [D69.6] 05/31/2022 Acute renal insufficiency [N28.9] 05/31/2022 Vitamin B12 deficiency [E53.8] 06/04/2022 Elevated serum creatinine [R79.89] 06/04/2022 Right inguinal hernia [K40.90] 06/04/2022 06/12/2022 Iron deficiency anemia [D50.9] 12/06/2022 Borderline abnormal thyroid function test [R94.*12/22/2023 Hyperglycemia [R73.9] 06/30/2024 Macular degeneration of both eyes [H35.30] 06/30/2024 Depression [F32.A] 06/30/2024 Encounter Status:Closed by KORTNEY BONNER on 07/01/24 Normal [facility] 25(OH)D3 [facility] 2023 25-hydroxyvitamin D3 [Mass/Vol] 44.7 ng/mL Normal 31.0-80.0 [facility] Comment on above: Order Comment: Speci men Type: BLOOD SPECIMENOrdering Facility: [facility] Address: [address] [place] [address] Result Comment: Clas sification of 25 [place] Vitamin D status: Deficiency/Insufficiency: < or = 30 ng/ml. Sufficiency/Optimal Levels: 31-80 ng/mL Toxicity: > 100 ng/mL. Test performed by chemiluminescent immunoassay. Performed By: #### 1 989-3 ####[facility] LABCLIA [id number] [place] [address] [place] CBC W Auto Differential pane l (Bld)on 06-30-2024 Basophils (Bld) [#/Vol] 10*3/uL Normal <0.11 C [facility] Comment on above: Order Comment: Speci men Type: BLOOD SPECIMENOrdering Facility: [facility] Address: [address] [place] [address] Performed By: #### 5 7021-8 ####[facility] LABIA [id number] [place] [address] [place] Basophils/100 WBC (Bld) 0.3 % Normal C [facility] Comment on above: Order Comment: Speci men Type: BLOOD SPECIMENOrdering Facility: [facility] Address: [address] [place] [address] Performed By: #### 5 7021-8 ####[facility] LABCLIA [id number] [place] [address] [place] Differential cell count method Nom (Bld) Auto Normal [facility] Comment on above: Order Comment: Speci men Type: BLOOD SPECIMENOrdering Facility: [facility] Address: [address] [place] [address] Performed By: #### 5 7021-8 ####[facility] LABCLIA [id number] [address] [id number] [address] [place] Eosinophils (Bld) [#/Vol] 0.23 10*3/uL Normal <0.46 [facility] Comment on above: Order Comment: Speci men Type: BLOOD SPECIMENOrdering Facility: [facility] Address: [address] [place] [address] Performed By: #### 5 7021-8 ####[facility] LABCLIA [id number] [place] [address] [place] Eosinophils/100 WBC (Bld) 3.1 % Normal [facility] Comment on above: Order Comment: Speci men Type: BLOOD SPECIMENOrdering Facility: [facility] Address: [address] [place] [address] Performed By: #### 5 7021-8 ####[facility] LABCLIA [id number] [place] [address] [place] Erythrocyte distribution width (RBC) [Ratio] 14.1 % Normal 11.5-15.0 [facility] Comment on above: Order Comment: Speci men Type: BLOOD SPECIMENOrdering Facility: [facility] Address: [address] [place] [address] Performed By: #### 5 7021-8 ####[facility] LABCLIA [id number] [place] Hematocrit (Bld) [Volume fraction] 42.9 % Normal 39.0-51.0 [facility] Comment on above: Order Comment: Speci men Type: BLOOD SPECIMENOrdering Facility: [facility] Address: [address] [place] [address] Performed By: #### 5 7021-8 ####[facility] LABCLIA [id number] [place] [address] [place] Hemoglobin (Bld) [Mass/Vol] 14.6 g/dL Normal 13.0-17.0 [facility] Comment on above: Order Comment: Speci men Type: BLOOD SPECIMENOrdering Facility: [facility] Address: [address] [place] [address] Performed By: #### 5 7021-8 ####[facility] LABCLIA [id number] [place] [address] [place] Immature granulocytes (Bld) [#/Vol] 0.03 10*3/uL Normal <0.10 [facility] Comment on above: Order Comment: Speci men Type: BLOOD SPECIMENOrdering Facility: [facility] Address: [address] [place] [address] Performed By: #### 5 7021-8 ####[facility] LABCLIA [id number] [place] [address] [place] Immature granulocytes/100 WBC (Bld) 0.4 % Normal [facility] Comment on above: Order Comment: Speci men Type: BLOOD SPECIMENOrdering Facility: [facility] Address: [address] [place] [address] Performed By: #### 5 7021-8 ####[facility] LABCLIA [id number] [place] [address] [place] Lymphocytes (Bld) [#/Vol] 1.43 10*3/uL Normal 1.00-4.00 [facility] Comment on above: Order Comment: Speci men Type: BLOOD SPECIMENOrdering Facility: [facility] Address: [address] [place] [address] Performed By: #### 5 7021-8 ####[facility] LABCLIA [id number] [place] [address] [place] Lymphocytes/100 WBC (Bld) 19.1 % Normal [facility] Comment on above: Order Comment: Speci men Type: BLOOD SPECIMENOrdering Facility: [facility] Address: [address] [place] [address] Performed By: #### 5 7021-8 ####[facility] LABCLIA [id number] [address] [id number], [place] [address] [place] MCH (RBC) [Entitic mass] 29.9 pg Normal 26.0-34.0 [facility] Comment on above: Order Comment: Speci men Type: BLOOD SPECIMENOrdering Facility: [facility] Address: [address] [place] [address] Performed By: #### 5 7021-8 ####[facility] LABCLIA [id number] [place] [address] [place] MCHC (RBC) [Mass/Vol] 34.0 g/dL Normal 30.5-36.0 [facility] Comment on above: Order Comment: Speci men Type: BLOOD SPECIMENOrdering Facility: [facility] Address: [address] [place] [address] Performed By: #### 5 7021-8 ####[facility] LABCLIA [id number] [place] [address] [place] MCV (RBC) [Entitic vol] 87.9 fL Normal 80.0-100.0 C [facility] Comment on above: Order Comment: Speci men Type: BLOOD SPECIMENOrdering Facility: [facility] Address: [address] [place] [address] Performed By: #### 5 7021-8 ####[facility] LABIA [id number] [place] [address] [place] Monocytes (Bld) [#/Vol] 0.72 10*3/uL Normal <0.87 [facility] Comment on above: Order Comment: Speci men Type: BLOOD SPECIMENOrdering Facility: [facility] Address: [address] [place] [address] Performed By: #### 5 7021-8 ####[facility] LABCLIA [id number] [place] [address] [place] Monocytes/100 WBC (Bld) 9.6 % Normal C [facility] Comment on above: Order Comment: Speci men Type: BLOOD SPECIMENOrdering Facility: [facility] Address: [address] [place] [address] Performed By: #### 5 7021-8 ####[facility] LABCLIA [id number] [place] [address] [place] Neutrophils (Bld) [#/Vol] 5.05 10*3/uL Normal 1.45-7.50 [facility] Comment on above: Order Comment: Speci men Type: BLOOD SPECIMENOrdering Facility: [facility] Address: [address] [place] [address] Performed By: #### 5 7021-8 ####[facility] LABCLIA [id number] [place] [address] [place] Neutrophils/100 WBC (Bld) 67.5 % Normal [facility] Comment on above: Order Comment: Speci men Type: BLOOD SPECIMENOrdering Facility: [facility] Address: [address] [place] [address] Performed By: #### 5 7021-8 ####[facility] LABCLIA [id number] [place] [address] [place] Nucleated RBC (Bld) [#/Vol] 10*3/uL Normal <0.01 [facility] Comment on above: Order Comment: Speci men Type: BLOOD SPECIMENOrdering Facility: [facility] Address: [address] [place] [address] Performed By: #### 5 7021-8 ####[facility] LABCLIA [id number] [place] [address] [place] Nucleated RBC/100 WBC (Bld) [Ratio] 0.0 /100 WBC Normal [facility] Comment on above: Order Comment: Speci men Type: BLOOD SPECIMENOrdering Facility: [facility] Address: [address] [place] [address] Performed By: #### 5 7021-8 ####[facility] LABCLIA [id number] [place] [address] [place] Platelet mean volume (Bld) [Entitic vol] 9.8 fL Normal 9.0-12.7 [facility] Comment on above: Order Comment: Speci men Type: BLOOD SPECIMENOrdering Facility: [facility] Address: [address] [place] [address] Performed By: #### 5 7021-8 ####[facility] LABIA [id number] [place] [address] [place] Platelets (Bld) [#/Vol] 133 10*3/uL Low 150-400 [facility] Comment on above: Order Comment: Speci men Type: BLOOD SPECIMENOrdering Facility: [facility] Address: [address] [place] [address] Performed By: #### 5 7021-8 ####[facility] LABIA [id number] [place] [address] [place] RBC (Bld) [#/Vol] 4.88 10*6/uL Normal 4.20-6.00 [facility] Comment on above: Order Comment: Speci men Type: BLOOD SPECIMENOrdering Facility: [facility] Address: [address] [place] [address] Performed By: #### 5 7021-8 ####[facility] LABIA [id number] [place] [address] [place] WBC (Bld) [#/Vol] 7.48 10*3/uL Normal 3.70-11.00 [facility] Comment on above: Order Comment: Speci men Type: BLOOD SPECIMENOrdering Facility: [facility] Address: [address] [place] [address] Performed By: #### 5 7021-8 ####[facility] LABCLIA [id number] [place] [place] [address] [place] CNOVon 06-30-2024 CNOV Office Visit (FAMPWS ) TODD MATAMOROS ([id number]) 1940 M Date Time Provider Department 06/30/24 10:40 AM [facility] During your visit today, we recorded the following information about you: Temperature Pulse Respiration Blood pressure 97.8 degrees 64/minute 20/minute 140/80 Weight 84.4 kg Robel Onofre DO 06/30/2024 12:24 PM Signed CC: Todd Matamoros is a 84 year old male who presents to the office for follow up HPI: Macular degeneration, continues to progress, no new recent interventions received. Knows that this affects his functioning/abilities but still has been able to stay at home since he knows where everything is located etc. No falls. BPH, long standing, use of Flomax and Proscar with improvement/relief, symptoms much improved HTN, CAD, aortic aneurysm, well controlled pulse and BP, taking medications as prescribed. Continues to see [facility] for followup Iron deficiency, eating iron rich foods,no signs of bleeding. Last labs in November Mood, overall stable, taking Sertraline. Helps to care for his with dementia. Daughter feels he is doing well. Has fatigue, wondering if can try vitamin b12 injections PAST MEDICAL HISTORY Diagnosis Date Acute bronchitis Aneurysm of abdominal aorta ([facility]) 04/20/2011. Lower abdomen. BPH (benign prostatic hyperplasia) CAD (coronary artery disease) Diverticulosis of colon (without mention of hemorrhage) GERD (gastroesophageal reflux disease) Hyperlipidemia Hypertension Internal hemorrhoids without mention of complication Macular degeneration NSTEMI (non-ST elevated myocardial infarction) ([facility]) 10/28/2019 Osteoarthritis of left hip Paresthesia PMH - PAST MEDICAL HISTORY OF sood PMH - PAST MEDICAL HISTORY OF heart problems PMH - PAST MEDICAL HISTORY OF problems with disc PMH - PAST MEDICAL HISTORY OF age 7 rheumatic fever PMH - PAST MEDICAL HISTORY OF syncope Spinal stenosis, unspecified region other than cervical lumbar Urinary incontinence PAST SURGICAL HISTORY Procedure Laterality Date ARTHRP ACETBLR/PROX FEM PROSTC AGRFT/ALGRFT Left 11/26/2017 Dr. Sukhjinder Lewis AVASTIN (BEVACIZUMAB) 1.25MG INTRAVITREAL INJECTION OD (RIGHT EYE) Right multiple COLONOSCOPY FLX DX W/COLLJ SPEC WHEN PFRMD 07/28/2007 DIR RPR ANEURYSM ABDOMINAL AORTA 04/20/2011 Bledsoe Klarissa EYLEA (AFLIBERCEPT) 2MG INTRAVITREAL INJECTION OD (RIGHT EYE) Right 2017 x 3 INGUINAL HERNIA REPAIR HX Bilateral 06/12/2022 with mesh OTHER 10/28/2019 PTCA/BRYSON X2 in the saphenous vein graft to OM1. PAST SURGICAL HISTORY OF 09/1996 CABG PAST SURGICAL HISTORY OF 2004, 2016 Back PAST SURGICAL HISTORY OF cardiac cath PAST SURGICAL HISTORY OF 2004 right hip replacement PAST SURGICAL HISTORY OF 06/2007 surveillance cardiac cath PAST SURGICAL HISTORY OF 12/2009 Heart Cath PAST SURGICAL HISTORY OF Left 11/2017 Left Hip Surgery PERIPH ANEUR ARM KHADIJAH MAP INPT 2010 PRICARDIECTOMY STOT/COMPL W/CARDPULM BYPASS 1996 TONSILLECTOMY PRIMARY/SECONDARY Tonsillectomy XCAPSL CTRC RMVL INSJ IO LENS PROSTH W/O ECP Bilateral Cataract Extraction with PC IOL Current Outpatient Medications Medication Sig sertraline (ZOLOFT) 25 mg tablet Take 1 tablet by mouth once daily. simvastatin (ZOCOR) 20 mg tablet Take 1 tablet by mouth daily at bedtime. lisinopril (ZESTRIL) 10 mg tablet Take 1 tablet by mouth once daily. Cholecalciferol, Vitamin D3, (VITAMIN D-3) 50 mcg (2,000 unit) cap Take 1 capsule by mouth once daily. cyanocobalamin (VITAMIN B-12) 1,000 mcg tab Take 1 tablet by mouth once daily. finasteride (PROSCAR) 5 mg tablet Take 1 tablet by mouth once daily. tamsulosin (FLOMAX) 0.4 mg Take 2 capsules by mouth once daily. triamcinolone acetonide (KENALOG) 0.1 % cream Apply 1 application to affected area two times a day. For eczema, Apply sparingly to area for rash/itching. atenolol (TENORMIN) 50 mg tablet Take 1 tablet by mouth once daily. clopidogrel (PLAVIX) 75 mg tablet Take 1 tablet by mouth once daily. omeprazole 20 mg capsule Take 20 mg by mouth once daily. Take one(1) tablet daily. No current facility-administered medications for this visit. ALLERGIES No Known Allergies Social History Tobacco Use Smoking status: Former Current packs/day: 0.00 Types: Cigarettes Quit date: 05/27/1982 Years since quittin.1 Smokeless tobacco: Never Vaping Use Vaping status: Never Used Substance Use Topics Alcohol use: No Drug use: No ROS: See HPI PE: There were no vitals taken for this visit. Gen: AANDO, NAD, non-toxic appearing, Pleasant, cooperative HEENT: NT/AC, PERRLA, EOMs intact b/l, visually impaired, nares clear and patent b/l, pharynx without erythema, exudate or lesions, MMM. Uvula midline. EACs without erythema or debris. TMs pearly mcarthur with intact landmarks b/l. Neck: supple, No cer (more content not included)... Normal [facility] Comprehensive metabolic 2000 panelon 06-30-2024 Albumin [Mass/Vol] 4.2 g/dL Normal 3.9-4.9 [facility] Comment on above: Order Comment: Speci men Type: BLOOD SPECIMENOrdering Facility: [facility] Address: [address] [place] [address] Performed By: #### 2 4323-8, LIPNF, 3015-10, ####[facility] LABCLIA [id number] [place] [address] [place] ALP [Catalytic activity/Vol] 123 U/L High 38-113 [facility] Comment on above: Order Comment: Speci men Type: BLOOD SPECIMENOrdering Facility: [facility] Address: [address] [place] [address] Performed By: #### 2 4323-8, LIPNF, 3015-10, ####[facility] LABCLIA [id number] [place] [address] [place] ALT [Catalytic activity/Vol] 12 U/L Normal 10-54 [facility] Comment on above: Order Comment: Speci men Type: BLOOD SPECIMENOrdering Facility: [facility] Address: [address] [place] [address] Performed By: #### 2 4323-8, LIPNF, 6-3, ####[facility] LABCLIA [id number] [place] [address] [place] Anion gap [Moles/Vol] 11 mmol/L Normal 8-15 [facility] Comment on above: Order Comment: Speci men Type: BLOOD SPECIMENOrdering Facility: [facility] Address: [address] [place] [address] Performed By: #### 2 4323-8, LIPNF, 6-3, ####[facility] LABCLIA [id number] [place] [address] [place] AST [Catalytic activity/Vol] 13 U/L Low 14-40 [facility] Comment on above: Order Comment: Speci men Type: BLOOD SPECIMENOrdering Facility: [facility] Address: [address] [place] [address] Performed By: #### 2 4323-8, LIPNF, 6-3, ####[facility] LABCLIA [id number] [place] [address] [place] Bilirubin [Mass/Vol] 0.6 mg/dL Normal 0.2-1.3 [facility] Comment on above: Order Comment: Speci men Type: BLOOD SPECIMENOrdering Facility: [facility] Address: [address] [place] [address] Performed By: #### 2 4323-8, LIPNF, 3015-3, ####[facility] LABCLIA [id number] [place] [address] [place] Calcium [Mass/Vol] 9.3 mg/dL Normal 8.5-10.2 [facility] Comment on above: Order Comment: Speci men Type: BLOOD SPECIMENOrdering Facility: [facility] Address: [address] [place] [address] Performed By: #### 2 4323-8, LIPNF, 6-3, ####[facility] LABCLIA [id number] [place] [address] [place] Chloride [Moles/Vol] 105 mmol/L Normal 98-107 [facility] Comment on above: Order Comment: Speci men Type: BLOOD SPECIMENOrdering Facility: [facility] Address: [address] [place] [address] Performed By: #### 2 4323-8, LIPNF, 6-3, ####[facility] LABIA [id number] [place] [address] [place] CO2 [Moles/Vol] 21 mmol/L Low 22-30 [facility] Comment on above: Order Comment: Speci men Type: BLOOD SPECIMENOrdering Facility: [facility] Address: [address] [place] [address] Performed By: #### 2 4323-8, LIPNF, 6-3, ####[facility] LABIA [id number] [place] [address] [place] Creatinine [Mass/Vol] 1.09 mg/dL Normal 0.73-1.22 [facility] Comment on above: Order Comment: Speci men Type: BLOOD SPECIMENOrdering Facility: [facility] Address: [address] [place] [address] Performed By: #### 2 4323-8, LIPNF, 3015-3, ####[facility] LABIA [id number] [place] [address] [place] Creatinine and Glomerular filtration rate.predicted panel (S/P/Bld) 67 mL/min/1.73m??? Normal >=60 [facility] Comment on above: Order Comment: Speci men Type: BLOOD SPECIMENOrdering Facility: [facility] Address: [address] [place] [address] Result Comment: Shannan mated Glomerular Filtration Rate (eGFR) is calculated using the 2020 CKD-EPI creatinine equation. This equation utilizes serum creatinine, sex, and age as parameters. The creatinine assay has traceable calibration to isotope dilution-mass spectrometry. Refer to KDIGO guidelines for clinical interpretation. In patients with unstable renal function, e.g. those with acute kidney injury, the eGFR may not accurately reflect actual GFR. Performed By: #### 2 4323-8, ALEJA, 3015-3, ####[facility] LABIA [id number] [address] [address] [place] Glucose [Mass/Vol] 98 mg/dL Normal 74-99 [facility] Comment on above: Order Comment: Speci men Type: BLOOD SPECIMENOrdering Facility: [facility] Address: [address] [place] [address] Result Comment: The [place] Diabetes Association (ADA) provides guidance for cutoff values for fasting glucose and random glucose. The ADA defines fasting as no caloric intake for at least 8 hours. Fasting plasma glucose results between 100 to 125 mg/dL indicate increased risk for diabetes (prediabetes). Fasting plasma glucose results greater than or equal to 126 mg/dL meet the criteria for diagnosis of diabetes. In the absence of unequivocal hyperglycemia, results should be confirmed by repeat testing. In a patient with classic symptoms of hyperglycemia or hyperglycemic crisis, random plasma glucose results greater than or equal to 200 mg/dL meet the criteria for diagnosis of diabetes. Reference: Standards of Medical Care in Diabetes 2016, [place] Diabetes Association. Diabetes Care. 2016.39(Suppl 1). Performed By: #### 2 4323-8, LIPTITO, 3015-3, ####[facility] LABIA [id number] [address] [address] [place] Potassium [Moles/Vol] 4.0 mmol/L Normal 3.7-5.1 [facility] Comment on above: Order Comment: Speci men Type: BLOOD SPECIMENOrdering Facility: [facility] Address: [address] [place] [id number] Performed By: #### 2 4323-8, LIPNF, 3016-3, ####[facility] LABCLIA [id number] [address] [address] [place] Protein [Mass/Vol] 6.6 g/dL Normal 6.3-8.0 [facility] Comment on above: Order Comment: Speci men Type: BLOOD SPECIMENOrdering Facility: [facility] Address: [address] [place] [address] Performed By: #### 2 4323-8, LIPNF, 6-3, ####[facility] LABIA [id number] [place] [address] [place] Sodium [Moles/Vol] 137 mmol/L Normal 136-144 [facility] Comment on above: Order Comment: Speci men Type: BLOOD SPECIMENOrdering Facility: [facility] Address: [address] [place] [address] Performed By: #### 2 4323-8, LIPNF, 6-3, ####[facility] LABIA [id number] [place] [address] [place] Urea nitrogen [Mass/Vol] 22 mg/dL Normal 9-24 [facility] Comment on above: Order Comment: Speci men Type: BLOOD SPECIMENOrdering Facility: [facility] Address: [address] [place] [address] Performed By: #### 2 4323-8, LIPNF, 6-3, ####[facility] LABIA [id number] [place] [id number] [place] HbA1c (Bld)on 06-30-2024 Average glucose Estimated from glycated hemoglobin (Bld) [Mass/Vol] 100 mg/dL Normal [facility] Comment on above: Order Comment: Speci men Type: BLOOD SPECIMENOrdering Facility: [facility] Address: [address] [place] [address] Result Comment: eAG: (Estimated average glucose) is a calculated value from HgbA1c and is patient service representative of the average blood glucose level in the last 2-3 month period. Performed By: #### 5 5454-3 ####[facility] LABCLIA [id number] [place] [address] [place] HbA1c (Bld) [Mass fraction] 5.1 % Normal 4.3-5.6 [facility] Comment on above: Order Comment: Christian modi Type: BLOOD SPECIMENOrdering Facility: [facility] Address: [address] [place] [address] Result Comment: [place] Diabetes Association guidelines indicate that patients with HgbA1c in the range 5.7-6.4% are at increased risk for development of diabetes, and intervention by lifestyle modification may be beneficial. HgbA1c greater or equal to 6.5% is considered diagnostic of diabetes. Performed By: #### 5 5454-3 ####[facility] LABIA [id number] [place] [address] [place] LIPID PANEL, NONFASTINGon Cholesterol [Mass/Vol] 126 mg/dL Normal <200 [facility] Comment on above: Order Comment: Christian modi Type: BLOOD SPECIMENOrdering Facility: [facility] Address: [address] [place] [address] Result Comment: <200 mg/dL, Desirable 200-239 mg/dL, Borderline high >239 mg/dL, High Performed By: #### 2 4323-8, LIPNF, 3016-3, 28133-6 ####[facility] LABIA [id number] [place] [address] [place] HDL CHOLESTEROL, NF 33 mg/dL Low >39 [facility] Comment on above: Order Comment: Christian modi Type: BLOOD SPECIMENOrdering Facility: [facility] Address: [address] [place] [address] Result Comment: 40-5 9 mg/dL, Acceptable >59 mg/dL, High: Negative risk factor for coronary heart disease <40 mg/dL, Low: Positive risk factor for coronary heart disease Performed By: #### 2 4323-8, LIPNF, 3015-3, ####[facility] LABCLIA [id number] [place] [address] [place] LDL CHOLESTEROL, NF 43 mg/dL Normal <100 [facility] Comment on above: Order Comment: Speci men Type: BLOOD SPECIMENOrdering Facility: [facility] Address: [address] [place] [address] Result Comment: <100 mg/dL, Optimal 100-129 mg/dL, Near optimal/above optimal 130-159 mg/dL, Borderline high 160-189 mg/dL, High >189 mg/dL, Very high Secondary prevention optimal LDL Cholesterol levels are recommended to be < 70 mg/dL Performed By: #### 2 4323-8, LIPNF, 3015-10, ####[facility] LABCLIA [id number] [address] [place] LDL/HDL RATIO, NF 1.30 mg/dL Normal <2.54 [facility] Comment on above: Order Comment: Emii men Type: BLOOD SPECIMENOrdering Facility: [facility] Address: [address] [place] [address] Result Comment: Refe isabellce: 1. National Cholesterol Education Program ATP III Guideline At-A-Glance Quick Desk Reference: National Heart, Lung, and Blood [place]. National Institutes of Health. 2001: NIH Publication No. 01-3305. 2. An International Atherosclerosis Society position paper: global recommendations for the management of dyslipidemia: executive summary, Atherosclerosis. 2014: 232(2):410-413. Performed By: #### 2 4323-8, LIPNF, 3015-, ####[facility] LABCLIA [id number] [place] [address] [place] NON HDL CHOL, NF 93 mg/dL Normal <130 [facility] Comment on above: Order Comment: Speci men Type: BLOOD SPECIMENOrdering Facility: [facility] Address: [address] [place], [place] [address] Result Comment: <130 mg/dL, Optimal 130-159 mg/dL, Near optimal/above optimal 160-189 mg/dL, Borderline high 190-219 mg/dL, High >219 mg/dL, Very high Secondary prevention optimal non HDL Cholesterol levels are recommended to be <100 mg/dL Performed By: #### 2 4323-8, LIPNF, 3015-3, ####[facility] LABCLIA [id number] [place] [address] [place] T CHOL/HDL RATIO NF 3.82 mg/dL Normal <5.10 [facility] Comment on above: Order Comment: Speci men Type: BLOOD SPECIMENOrdering Facility: [facility] Address: [address] [place] [address] Performed By: #### 2 4323-8, LIPNF, 3015-10, ####[facility] LABCLIA [id number] [place] [address] [place] TRIGLYCERIDES, NF 251 mg/dL High <150 [facility] Comment on above: Order Comment: Speci men Type: BLOOD SPECIMENOrdering Facility: [facility] Address: [address] [place] [address] Result Comment: <150 mg/dL, Normal 150-199 mg/dL, Borderline high 200-499 mg/dL, High >499 mg/dL, Very high Performed By: #### 2 4323-8, LIPNF, 3015-10, ####[facility] LABCLIA [id number] [place] [id number] [place] VLDL CHOLESTEROL, NF 50 mg/dL High <30 [facility] Comment on above: Order Comment: Speci men Type: BLOOD SPECIMENOrdering Facility: [facility] Address: [address] [place] [address] Performed By: #### 2 4323-8, LIPNF, 3015-10, ####[facility] LABCLIA [id number] [address] [address] [place] Magnesium SerPl-mCncon 06-30 Magnesium [Mass/Vol] 2.2 mg/dL Normal 1.7-2.3 [facility] Comment on above: Order Comment: Speci men Type: BLOOD SPECIMENOrdering Facility: [facility] Address: [address] [place] [address] Performed By: #### 2 4323-8, LIPNF, 3015-10, ####[facility] LABIA [id number] [place] [address] [place] TSH SerPl-aCncon 06-30-2024 TSH Qn 2.020 m[IU]/L Normal 0.270-4.200 [facility] Comment on above: Order Comment: Speci men Type: BLOOD SPECIMENOrdering Facility: [facility] Address: [address] [place] [address] Performed By: #### 2 4323-8, LIPNF, 3015-10, ####[facility] LABIA [id number] [place] [address] [place] Urinalysis complete panel (U )on 06-30-2024 Bacteria LM.HPF (Urine sed) [#/Area] Negative Normal Negative [facility] Comment on above: Order Comment: Speci men Type: URINE SPECIMENOrdering Facility: [facility] Address: [address] [place] [address] Performed By: #### 2 4356-8 ####[facility] LABIA [id number] [place] [address] [place] Bilirubin Ql (U) Negative Normal Negative [facility] Comment on above: Order Comment: Speci men Type: URINE SPECIMENOrdering Facility: [facility] Address: [address] [place] [address] Performed By: #### 2 4356-8 ####[facility] LABCLIA [id number] [place] [address] [place] Clarity (Unsp spec) Clear Normal Clear [facility] Comment on above: Order Comment: Speci men Type: URINE SPECIMENOrdering Facility: [facility] Address: [address] [place] [address] Performed By: #### 2 4356-8 ####[facility] LABCLIA [id number] [place] [address] [place] Color (U) Dark Yellow Abnormal Yellow [facility] Comment on above: Order Comment: Speci men Type: URINE SPECIMENOrdering Facility: [facility] Address: [address] [place] [address] Performed By: #### 2 4356-8 ####[facility] LABCLIA [id number] [place] [address] [place] Epithelial cells LM.HPF (Urine sed) [#/Area] Few Normal [facility] Comment on above: Order Comment: Speci men Type: URINE SPECIMENOrdering Facility: [facility] Address: [address] [place] [address] Performed By: #### 2 4356-8 ####[facility] LABCLIA [id number] [place] [address] [place] Glucose Test strip (U) [Mass/Vol] Negative Normal Negative [facility] Comment on above: Order Comment: Speci men Type: URINE SPECIMENOrdering Facility: [facility] Address: [address] [place] [address] Performed By: #### 2 4356-8 ####[facility] LABCLIA [id number] [place] [address] [place] Hemoglobin Ql (U) Negative Normal Negative [facility] Comment on above: Order Comment: Speci men Type: URINE SPECIMENOrdering Facility: [facility] Address: [address] [place] [address] Performed By: #### 2 4356-8 ####[facility] LABCLIA [id number] [place] [address] [place] Hyaline casts (Urine sed) [#/Area] 0 /[LPF] Normal 0 /LPF [facility] Comment on above: Order Comment: Speci men Type: URINE SPECIMENOrdering Facility: [facility] Address: [address] [place] [address] Performed By: #### 2 4356-8 ####[facility] LABCLIA [id number] [place] [address] [place] Ketones Ql (U) Negative Normal Negative [facility] Comment on above: Order Comment: Speci men Type: URINE SPECIMENOrdering Facility: [facility] Address: [address] [place] [address] Performed By: #### 2 4356-8 ####[facility] LABCLIA [id number] [place] [address] [place] Leukocyte esterase Test strip Ql (U) Negative Normal Negative [facility] Comment on above: Order Comment: Speci men Type: URINE SPECIMENOrdering Facility: [facility] Address: [address] [place] [address] Performed By: #### 2 4356-8 ####[facility] LABCLIA [id number] [place] [address] [place] Nitrite Ql (U) Negative Normal Negative [facility] Comment on above: Order Comment: Speci men Type: URINE SPECIMENOrdering Facility: [facility] Address: [address] [place] [address] Performed By: #### 2 4356-8 ####[facility] LABCLIA [id number] [place] [address] [place] pH (U) 5.5 [pH] Normal <8.5 [facility] Comment on above: Order Comment: Speci men Type: URINE SPECIMENOrdering Facility: [facility] Address: [address] [place] [address] Performed By: #### 2 4356-8 ####[facility] LABIA [id number] [place] [address] [place] Protein (U) [Mass/Vol] Trace Abnormal Negative [facility] Comment on above: Order Comment: Speci men Type: URINE SPECIMENOrdering Facility: [facility] Address: [address] [place] [address] Performed By: #### 2 4356-8 ####[facility] [id number] [place] [address] [place] RBC LM.HPF (Urine sed) [#/Area] 0-2 /HPF Normal 0-2 /HPF [facility] Comment on above: Order Comment: Speci men Type: URINE SPECIMENOrdering Facility: [facility] Address: [address] [place] [address] Performed By: #### 2 4356-8 ####[facility] [id number] [place] [address] [place] Specific gravity (U) [Rel density] 1.024 Normal 1.005-1.030 [facility] Comment on above: Order Comment: Speci men Type: URINE SPECIMENOrdering Facility: [facility] Address: [address] [place] [address] Performed By: #### 2 4356-8 ####[facility] [id number] [place] [address] [place] Urobilinogen Ql (U) 1.0 EU/dL Normal 0.2-1.0 EU/dL [facility] Comment on above: Order Comment: Speci men Type: URINE SPECIMENOrdering Facility: [facility] Address: [address] [place] [address] Performed By: #### 2 4356-8 ####[facility] LABCLIA [id number] [place] [id number] [place] WBC LM.HPF (Urine sed) [#/Area] 0-5 /HPF Normal 0-5 /HPF [facility] Comment on above: Order Comment: Speci men Type: URINE SPECIMENOrdering Facility: [facility] Address: [address] [place] [address] Performed By: #### 2 4356-8 ####[facility] LABCLIA [id number] [place] [id number] [place] Vit B12 [facility] 06-30- 024 Cobalamin (Vitamin B12) [Mass/Vol] 1079 pg/mL Normal 232-1245 [facility] Comment on above: Order Comment: Speci men Type: BLOOD SPECIMENOrdering Facility: [facility] Address: [address] [place] [address] Performed By: #### 2 132-9 ####[facility] LABCLIA [id number] [place] [id number] [place] 25-hydroxyvitamin D3 [Mass/V ol]on 12-22-2023 Interpretation and review of laboratory results Normal [facility] The reference range interval was based on an analysis of samples from healthy adults and may not pertain to children from 0-18 years old. [facility] CBC W Auto Differential pane l (Bld)on 12-22-2023 Basophils (Bld) [#/Vol] 0.03 10*3/uL [facility] Basophils/100 WBC (Bld) 0.4 % C [facility] Differential cell count method Nom (Bld) Auto [facility] Eosinophils (Bld) [#/Vol] 0.54 10*3/uL High [facility] Eosinophils/100 WBC (Bld) 7.7 % [facility] Erythrocyte distribution width (RBC) [Ratio] 14.2 % 11.5 - 15.0 % [facility] Hematocrit (Bld) [Volume fraction] 44.0 % 39.0 - 51.0 % [facility] Hemoglobin (Bld) [Mass/Vol] 15.2 g/dL 13.0 - 17.0 g/dL [facility] Immature granulocytes (Bld) [#/Vol] 0.03 10*3/uL [facility] Immature granulocytes/100 WBC (Bld) 0.4 % [facility] Interpretation and review of laboratory results Abnormal [facility] Lymphocytes (Bld) [#/Vol] 1.45 10*3/uL [facility] Lymphocytes/100 WBC (Bld) 20.7 % [facility] MCH (RBC) [Entitic mass] 30.5 pg 26.0 - 34.0 pg [facility] MCHC (RBC) [Mass/Vol] 34.5 g/dL 30.5 - 36.0 g/dL [facility] MCV (RBC) [Entitic vol] 88.2 fL 80.0 - 100.0 fL [facility] Monocytes (Bld) [#/Vol] 0.62 10*3/uL [facility] Monocytes/100 WBC (Bld) 8.8 % [facility] Neutrophils (Bld) [#/Vol] 4.34 10*3/uL [facility] Neutrophils/100 WBC (Bld) 62.0 % [facility] Nucleated RBC (Bld) [#/Vol] [facility] Nucleated RBC/100 WBC (Bld) [Ratio] 0.0 % /100 WBC [facility] Platelet mean volume (Bld) [Entitic vol] 10.0 fL 9.0 - 12.7 fL [facility] Platelets (Bld) [#/Vol] 126 10*3/uL Low [facility] RBC (Bld) [#/Vol] 4.99 10*6/uL 4.20 - 6.0 0 m/uL [facility] WBC (Bld) [#/Vol] 7.01 10*3/uL [facility] VITAMIN D 25 HYDROXYon 12-21 25-hydroxyvitamin D3 [Mass/Vol] 47.9 ng/mL 31.0 - 80.0 ng/mL [facility] Comment on above: Classification of 25 [place] Vitamin D status: Deficiency/Insufficiency: < or = 30 ng/ml. Sufficiency/Optimal Levels: 31-80 ng/mL Toxicity: > 100 ng/mL. Test performed by chemiluminescent immunoassay. CBC W Auto Differential pane l (Bld)on 12-06-2022 Basophils (Bld) [#/Vol] 0.03 10*3/uL <0.11 k/uL [facility] Basophils/100 WBC (Bld) 0.4 % C [facility] Differential cell count method Nom (Bld) Auto [facility] Eosinophils (Bld) [#/Vol] 0.23 10*3/uL <0.46 k/uL [facility] Eosinophils/100 WBC (Bld) 3.3 % [facility] Erythrocyte distribution width (RBC) [Ratio] 16.5 % High 11.5 - 15.0 % [facility] Hematocrit (Bld) [Volume fraction] 38.5 % Low 39.0 - 51.0 % [facility] Hemoglobin (Bld) [Mass/Vol] 12.2 g/dL Low 13.0 - 17.0 g/dL [facility] Immature granulocytes (Bld) [#/Vol] 0.03 10*3/uL <0.10 k/uL [facility] Immature granulocytes/100 WBC (Bld) 0.4 % [facility] Lymphocytes (Bld) [#/Vol] 1.41 10*3/uL 1.00 - 4.00 k/uL [facility] Lymphocytes/100 WBC (Bld) 20.5 % [facility] MCH (RBC) [Entitic mass] 25.6 pg Low 26.0 - 34.0 pg [facility] MCHC (RBC) [Mass/Vol] 31.7 g/dL 30.5 - 36.0 g/dL [facility] MCV (RBC) [Entitic vol] 80.7 fL 80.0 - 100.0 fL [facility] Monocytes (Bld) [#/Vol] 0.75 10*3/uL <0.87 k/uL [facility] Monocytes/100 WBC (Bld) 10.9 % [facility] Neutrophils (Bld) [#/Vol] 4.43 10*3/uL 1.45 - 7.50 k/uL [facility] Neutrophils/100 WBC (Bld) 64.5 % [facility] Nucleated RBC (Bld) [#/Vol] <0.01 k/uL [facility] Nucleated RBC/100 WBC (Bld) [Ratio] 0.0 /100 WBC [facility] Platelet mean volume (Bld) [Entitic vol] 10.0 fL 9.0 - 12.7 fL [facility] Platelets (Bld) [#/Vol] 174 10*3/uL 150 - 400 k/uL [facility] RBC (Bld) [#/Vol] 4.77 10*6/uL 4.20 - 6.0 0 m/uL [facility] WBC (Bld) [#/Vol] 6.88 10*3/uL 3.70 - 11.00 k/uL [facility] Comprehensive metabolic 2000 panelon 12-06-2022 Albumin [Mass/Vol] 4.1 g/dL 3.9 - 4.9 g/dL [facility] ALP [Catalytic activity/Vol] 97 U/L 38 - 113 U/L [facility] ALT [Catalytic activity/Vol] 14 U/L 10 - 54 U/L [facility] Anion gap [Moles/Vol] 8 mmol/L Low 9 - 18 mmol/L [facility] AST [Catalytic activity/Vol] 16 U/L 14 - 40 U/L [facility] Bilirubin [Mass/Vol] 0.4 mg/dL 0.2 - 1 .3 mg/dL [facility] Calcium [Mass/Vol] 10.1 mg/dL 8.5 - 10. 2 mg/dL [facility] Chloride [Moles/Vol] 104 mmol/L 97 - 10 5 mmol/L [facility] CO2 [Moles/Vol] 26 mmol/L 22 - 30 mmol/L [facility] Creatinine [Mass/Vol] 1.24 mg/dL High 0.73 - 1.22 mg/dL [facility] Estimated Glomerular Filtration Rate 58 mL/min/1.73m Low >=60 mL/min/1.73 m [facility] Glucose [Mass/Vol] 84 mg/dL 74 - 99 mg/dL [facility] Potassium [Moles/Vol] 4.3 mmol/L 3.7 - 5.1 mmol/L [facility] Protein [Mass/Vol] 7.0 g/dL 6.3 - 8.0 g/dL [facility] Sodium [Moles/Vol] 138 mmol/L 136 - 144 mmol/L [facility] Urea nitrogen [Mass/Vol] 18 mg/dL 9 - 24 mg/dL [facility] FERRITIN BLDon 12-06-2022 Ferritin [Mass/Vol] 28.5 ng/mL Low 30.3 - 565.7 ng/mL [facility] Iron and Iron binding capaci ty panelon 12-06-2022 Iron [Mass/Vol] 39 ug/dL Low 41 - 186 ug/dL [facility] Iron binding capacity [Mass/Vol] 381 ug/dL 232 - 386 ug/dL [facility] Iron/TIBC [Molar ratio] 10.2 % Low 15.0 - 57.0 % [facility] PSA/PROSTSPECAG SCRNon 12-06 Prostate specific Ag [Mass/Vol] 1.90 ng/mL <2.60 ng/mL [facility] TSH BLDon 12-06-2022 TSH Qn 1.980 m[IU]/L 0.270 - 4.200 mIU/L [facility] VITAMIN B12 BLOODon 12-07-19 Cobalamin (Vitamin B12) [Mass/Vol] 911 pg/mL 232 - 1,245 pg/mL [facility] VITAMIN D 25 HYDROXYon 12-06 25-hydroxyvitamin D3 [Mass/Vol] 57.5 ng/mL 31.0 - 80.0 ng/mL [facility] CBC panel Auto (Bld)on 06-18 Erythrocyte distribution width (RBC) [Ratio] 14.5 % 11.5 - 15.0 % [facility] Hematocrit (Bld) [Volume fraction] 29.4 % Low 39.0 - 51.0 % [facility] Hemoglobin (Bld) [Mass/Vol] 10.1 g/dL Low 13.0 - 17.0 g/dL [facility] MCH (RBC) [Entitic mass] 30.6 pg 26.0 - 34.0 pg [facility] MCHC (RBC) [Mass/Vol] 34.4 g/dL 30.5 - 36.0 g/dL [facility] MCV (RBC) [Entitic vol] 89.1 fL 80.0 - 100.0 fL [facility] Nucleated RBC (Bld) [#/Vol] 0.02 10*3/uL High <0.01 k/uL [facility] Platelet mean volume (Bld) [Entitic vol] 10.3 fL 9.0 - 12.7 fL [facility] Platelets (Bld) [#/Vol] 168 10*3/uL 150 - 400 k/uL [facility] RBC (Bld) [#/Vol] 3.30 10*6/uL Low 4.20 - 6.0 0 m/uL [facility] WBC (Bld) [#/Vol] 9.59 10*3/uL 3.70 - 11.00 k/uL [facility] Absolute lymphocyte counton 06-15-2022 Lymphocytes Auto (Unsp spec) [#/Vol] 1.01 10*3/uL 0.83-4.51 [facility] Work Phone: Basophil percentageon 2021 Basophils/100 WBC (Bld) 0.2 % 0-1 [facility] Work Phone: Eosinophils/100 WBC (Bld) 0.9 % 0-5 [facility] Work Phone: Neutrophils (Bld) [#/Vol] 6.1 10*3/uL 2.0-7.7 [facility] Work Phone: Neutrophils/100 WBC (Bld) 75.6 % 47-70 [facility] Work Phone: WBC (Bld) [#/Vol] 8.1 10*3/uL 4.4-11.0 [facility] Work Phone: Chloride [Moles/Vol] 111 mmol/L 98-107 [facility] Work Phone: Glucose [Mass/Vol] 123 mg/dL 74-106 [facility] Work Phone: Comment on above: Fasting Glucose resu lt from 100 to 125 mg/dL suggests IMPAIRED HOMEOSTASIS per A.D.A. criteria. Potassium [Moles/Vol] 3.5 mmol/L 3.5-5.1 [facility] Work Phone: Sodium [Moles/Vol] 141 mmol/L 136-145 [facility] Work Phone: [phone] Blood erythrocytes count (nu mber/volume)on 06-15-2022 RBC (Bld) [#/Vol] 3.03 10*6/uL [facility]6-6.2 [facility]: Blood hemoglobin measurement (mass/volume)on 06-15-2022 Hemoglobin (Bld) [Mass/Vol] 9.0 g/dL 13.0-16.5 [facility] Work Phone: Blood lymphocytes/100 leukoc yteson 06-15-2022 Lymphocytes/100 WBC (Bld) 12.4 % 19-41 [facility] Work Phone: Blood monocytes/100 leukocyt eson 06-15-2022 Monocytes/100 WBC (Bld) 10.3 % 0-10 [facility] Work Phone: Blood platelet mean volumeon 06-15-2022 Platelet mean volume (Bld) [Entitic vol] 9.2 fL 6.2-12.0 [facility] Work Phone: Determination of erythrocyte mean corpuscular volume (MCV)on 06-15-2022 MCV (RBC) [Entitic vol] 88.1 fL 80-94 [facility] Work Phone: Hematocrit Auto (Bld) [Volum e fraction]on 06-15-2022 Hematocrit (Bld) [Volume fraction] 26.7 % 40-54 [facility] Work Phone: Laboratory - Chemistry and C hemistry - challengeon 06-15-2022 CO2 [Moles/Vol] 26.0 mmol/L 21.0-32.0 [facility] Work Phone: Urea nitrogen/Creatinine [Mass ratio] 38.5 mg/mg 10-20 [facility] Work Phone: Laboratory - Hematology and Cell countson 06-15-2022 Erythrocyte distribution width (RBC) [Entitic vol] 44.9 fL 35.1-43.9 [facility] Work Phone: Erythrocyte distribution width (RBC) [Ratio] 14.1 % 11.6-14.6 [facility] Work Phone: Immature granulocytes/100 WBC (Bld) 0.600 % 0.0-0.9 [facility] Work Phone: Comment on above: IG% - Immature Granu locytes (promyelocytes, myelocytes and metamyelocytes) > 1% indicates that a LEFT SHIFT is Present. MCH (RBC) [Entitic mass] 29.7 pg 27.0-32.0 [facility] Work Phone: Nucleated RBC/100 WBC (Bld) [Ratio] 0 % 0-5 [facility] Work Phone: MCHC Auto (RBC) [Mass/Vol]on 06-15-2022 MCHC (RBC) [Mass/Vol] 33.7 g/dL 32-36 [facility] Work Phone: No Panel Informationon 06-15 Estimated Creatinine Clearance Calc 46.34 ml/min [facility] Work Phone: Estimated GFR (MDRD) Amer 83 mL/min >60 [facility] Work Phone: Comment on above: GFR Calc Estimated GFR (MDRD) Non-Af Amer 69 mL/min >60 [facility] Work Phone: Comment on above: Non- GFR Calc Platelets bldon 06-15-2022 Platelets (Bld) [#/Vol] 109 10*3/uL 150-450 [facility] Work Phone: Serum or plasma calcium kimmie urement (mass/volume)on 06-15-2022 Calcium [Mass/Vol] 8.5 mg/dL 8.5-10.1 [facility] Work Phone: Serum or plasma creatinine m easurement (mass/volume)on 06-15-2022 Creatinine [Mass/Vol] 1.09 mg/dL 0.70-1.30 [facility] Work Phone: Comment on above: The validity of the calculated GFR & GFRAA in patients over 70 years has not been determined. Clinical correlation is essential. Serum or plasma urea nitroge n measurement (mass/volume)on 06-15-2022 Urea nitrogen [Mass/Vol] 42 mg/dL 7-18 [facility] Work Phone: Thin prep Papanicolaou smear with manual screeningon 06-15-2022 Thin prep Papanicolaou smear with manual screening 4 5-15 [facility] Work Phone: Basophil percentageon 2021 Basophil percentage 2.2 mg/dL 2.5-4.9 [facility] Work Phone: No Panel Informationon 06-14 Thyroid Stimulating Hormone (TSH) 0.56 uIU/mL 0.358-3.74 [facility] Work Phone: Review by pathologiston 05-26 Pathologist review Xu (Unsp spec) [Interp] Reviewed [facility] Work Phone: Comment on above: Previous reported re sult: Candace jackson Edited by: BAIRON on 06/14/22:1324Neutrophilic leukocytosis.Normocytic anemia.Clinical correlation suggested.Devon Hodgson D.O. 06/14/22 AMENDED REPORT 06/14/22 1324 PATH REV previously reported as: Candace jackson Absolute lymphocyte counton 06-13-2022 Lymphocytes Auto (Unsp spec) [#/Vol] 1.16 10*3/uL 0.83-4.51 [facility] Work Phone: Basophil percentageon 2021 Basophil percentage 0 SEEN /hpf 0-5 [facility] Work Phone: [phone] Basophils/100 WBC (Bld) 0.1 % 0-1 [facility] Work Phone: [phone] Bilirubin [Mass/Vol] 1.00 mg/dL 0.20-1.00 [facility] Work Phone: [phone] Comment on above: For patients on eltr ombopag therapy, use of Dimension [place] TBIL is not recommended. Chloride [Moles/Vol] 98 mmol/L 98-107 [facility] Work Phone: Eosinophils/100 WBC (Bld) 0.0 % 0-5 [facility] Work Phone: Glucose [Mass/Vol] 178 mg/dL 74-106 [facility] Work Phone: Comment on above: Fasting Glucose resu lt greater than or equal to 126 mg/dL suggests DIABETES MELLITUS per A.D.A. criteria. Neutrophils (Bld) [#/Vol] 14.4 10*3/uL 2.0-7.7 [facility] Work Phone: Neutrophils/100 WBC (Bld) 85.3 % 47-70 [facility] Work Phone: Potassium [Moles/Vol] 4.5 mmol/L 3.5-5.1 [facility] Work Phone: Comment on above: Moderate Hemolysis, Result may be falsely increased. Protein [Mass/Vol] 7.4 g/dL 6.4-8.2 [facility] Work Phone: Sodium [Moles/Vol] 136 mmol/L 136-145 [facility] Work Phone: WBC (Bld) [#/Vol] 16.9 10*3/uL 4.4-11.0 [facility] Work Phone: Bilirubin Test strip Ql (U)o n 06-13-2022 Bilirubin Ql (U) Negative Negative [facility] Work Phone: Blood erythrocytes count (nu mber/volume)on 06-13-2022 RBC (Bld) [#/Vol] 4.89 10*6/uL 4.6-6.2 [facility] Work Phone: Blood hemoglobin measurement (mass/volume)on 06-13-2022 Hemoglobin (Bld) [Mass/Vol] 14.5 g/dL 13.0-16.5 [facility] Work Phone: Blood lymphocytes/100 leukoc yteson 06-13-2022 Lymphocytes/100 WBC (Bld) 6.9 % 19-41 [facility] Work Phone: Blood monocytes/100 leukocyt eson 06-13-2022 Monocytes/100 WBC (Bld) 7.2 % 0-10 [facility] Work Phone: Blood platelet mean volumeon 06-13-2022 Platelet mean volume (Bld) [Entitic vol] 9.3 fL 6.2-12.0 [facility] Work Phone: Determination of erythrocyte mean corpuscular volume (MCV)on 06-13-2022 MCV (RBC) [Entitic vol] 87.1 fL 80-94 [facility] Work Phone: Hematocrit Auto (Bld) [Volum e fraction]on 06-13-2022 Hematocrit (Bld) [Volume fraction] 42.6 % 40-54 [facility] Work Phone: [phone] INR in Blood by Coagulation assayon 06-13-2022 INR Coag (Bld) [Relative time] 1.2 {INR} [facility] Work Phone: Ketones Test strip Ql (U)on 06-13-2022 Ketones Ql (U) 15 mg/dl Negative [facility] Work Phone: Laboratory - Chemistry and C hemistry - challengeon 06-13-2022 ALP [Catalytic activity/Vol] 88 U/L 45-117 [facility] Work Phone: ALT [Catalytic activity/Vol] 18 U/L 16-61 [facility] Work Phone: [phone] CO2 [Moles/Vol] 29.0 mmol/L 21.0-32.0 [facility] Work Phone: Globulin (S) [Mass/Vol] 3.6 g/dL 2.2-4.2 [facility] Work Phone: [phone] Lipase [Catalytic activity/Vol] 46 U/L 73-393 [facility] Work Phone: Magnesium [Mass/Vol] 2.2 mg/dL 1.6-2.6 [facility] Work Phone: Comment on above: Moderate Hemolysis, Result may be falsely increased. Urea nitrogen/Creatinine [Mass ratio] 30.3 mg/mg 06-13 [facility] Work Phone: Laboratory - Coagulationon 1 PT Coag (PPP) [Time] 15.0 s 11.7-14.9 [facility] Work Phone: Laboratory - Hematology and Cell countson 06-13-2022 Erythrocyte distribution width (RBC) [Entitic vol] 44.2 fL 35.1-43.9 [facility] Work Phone: Erythrocyte distribution width (RBC) [Ratio] 13.9 % 11.6-14.6 [facility] Work Phone: Immature granulocytes/100 WBC (Bld) 0.500 % 0.0-0.9 [facility] Work Phone: Comment on above: IG% - Immature Granu locytes (promyelocytes, myelocytes and metamyelocytes) > 1% indicates that a LEFT SHIFT is Present. MCH (RBC) [Entitic mass] 29.7 pg 27.0-32.0 [facility] Work Phone: Nucleated RBC/100 WBC (Bld) [Ratio] 0 % 0-5 [facility] Work Phone: MCHC Auto (RBC) [Mass/Vol]on 06-13-2022 MCHC (RBC) [Mass/Vol] 34.0 g/dL 32-36 [facility] Work Phone: Mucus LM Ql (Urine sed)on Mucus Ql (Urine sed) 0 SEEN /hpf [facility] Work Phone: Nitrite Test strip Ql (U)on 06-13-2022 Nitrite Ql (U) Negative Negative [facility] Work Phone: No Panel Informationon 06-13 Estimated Creatinine Clearance Calc 36.09 ml/min [facility] Work Phone: Estimated GFR (MDRD) Amer 60 mL/min >60 [facility] Work Phone: Comment on above: GFR Calc Estimated GFR (MDRD) Non-Af Amer 49 mL/min >60 [facility] Work Phone: Comment on above: Non- GFR Calc Platelets bldon 06-13-2022 Platelets (Bld) [#/Vol] 205 10*3/uL 150-450 [facility] Work Phone: Protein Test strip Ql (U)on 06-13-2022 Protein Ql (U) 30 mg/dl Negative [facility] Work Phone: Serum or plasma albumin kimmie urement (mass/volume)on 06-13-2022 Albumin [Mass/Vol] 3.8 g/dL 3.2-5.0 [facility] Work Phone: Serum or plasma albumin/glob ulin mass ratioon 06-13-2022 Albumin/Globulin [Mass ratio] 1.1 {ratio} 0.9-2.4 [facility] Work Phone: Serum or plasma calcium kimmie urement (mass/volume)on 06-13-2022 Calcium [Mass/Vol] 9.7 mg/dL 8.5-10.1 [facility] Work Phone: Serum or plasma creatinine m easurement (mass/volume)on 06-13-2022 Creatinine [Mass/Vol] 1.45 mg/dL 0.70-1.30 [facility] Work Phone: Comment on above: The validity of the calculated GFR & GFRAA in patients over 70 years has not been determined. Clinical correlation is essential. Serum or plasma urea nitroge n measurement (mass/volume)on 06-13-2022 Urea nitrogen [Mass/Vol] 44 mg/dL 7-18 [facility] Work Phone: Squamous epithelial cells de tection in urine sediment by light microscopyon 06-13-2022 Epithelial cells.squamous LM Ql (Urine sed) 0-5 SEEN /hpf 0-5 [facility] Work Phone: Thin prep Papanicolaou smear with manual screeningon 06-13-2022 Thin prep Papanicolaou smear with manual screening 23 U/L 15-37 [facility] Work Phone: Comment on above: Moderate Hemolysis, Result may be falsely increased. Thin prep Papanicolaou smear with manual screening 9 5-15 [facility] Work Phone: Urine blood detectionon --2021 RBC Ql (U) Negative Negative [facility] Work Phone: RBC Ql (U) 0 SEEN /hpf 0-5 [facility] Work Phone: Urine clarityon 06-13-2022 Clarity (U) Clear Clear [facility] Work Phone: Urine color determinationon 06-13-2022 Color (U) Yellow Yellow [facility] Work Phone: Urine glucose detectionon Glucose Ql (U) 50 mg/dl Normal [facility] Work Phone: Urine leukocyte esterase det ection by dipstickon 06-13-2022 Leukocyte esterase Test strip Ql (U) Negative Negative [facility] Work Phone: Urine pHon 06-13-2022 pH (U) 8.0 [pH] 5.0 - 8.0 [facility] Work Phone: Urine sediment bacteria coun t by microscopy (number/high power field)on 06-13-2022 Bacteria LM.HPF (Urine sed) [#/Area] 1 /[HPF] None Seen [facility] Work Phone: Urine specific gravity measu rementon 06-13-2022 Specific gravity (U) [Rel density] 1.010 1.002-1.030 [facility] Work Phone: Urobilinogen Auto test strip Ql (U)on 06-13-2022 Urobilinogen Ql (U) Normal mg/dl Normal [facility] Work Phone: ANES POSTPROC EVALon 022 ANES POSTPROC EVAL HNO ID: [id number] Author: Fernando Salinas MD Service: Anesthesiology Author Type: Anesthesiologist Type: Anesthesia Postprocedure Evaluation Filed: 06/12/2022 1:06 PM Note Text: POST ANESTHESIA EVALUATION NOTE : 1940 Procedure Summary Date: 06/12/22 Room / Location: [place] [address] / ID OR Anesthesia Start: 1140 Anesthesia Stop: 1300 Procedure: LAPAROSCOPY SURGICAL REPAIR INITIAL INGUINAL HERNIA W/ MESH (Right: Groin) Diagnosis: Right inguinal hernia (Right inguinal hernia [K40.90]) Surgeons: Florencio Tesfaye MD Responsible Provider: Fernando Salinas MD Anesthesia Type: general ASA Status: 3 Anesthesia Type: general Airway Type: ETT Last Vitals Vitals Value Taken Time BP 169/81 06/12/22 1300 Temp 37 06/12/22 1306 Pulse 61 06/12/22 1305 Resp 18 06/12/22 1305 SpO2 97 % 06/12/22 1305 Vitals shown include unvalidated device data. Post Anesthesia Patient Status Patient Evaluation: PACU. PACU/ICU Patient Condition: stable. Anticipated Disposition: phase 2 then home. Neurological Status: aware and responsive. Pulmonary Status: breathing comfortably on room air Airway Control: returned to baseline unsupported. Cardiovascular Status: stable. Pain Management: clinically adequate - multimodal analgesia pain management approach Postoperative Hydration: acceptable. Intraoperative Events: no significant anesthesia events Recommendation: continue current plan of care. Anesthesia Observations No Documentation SIGNATURE: Fernando Salinas MD PATIENT NAME: Todd Matamoros DATE: June 12, 2022 TIME: 1:06 PM CSN: [id number] [facility] ANES PRE-OPon 06-12-2022 ANES PRE-OP HNO ID: [id number] Author: Fernando Salinas MD Service: Anesthesiology Author Type: Anesthesiologist Type: Anesthesia Preprocedure Evaluation Filed: 06/12/2022 10:26 AM Note Text: ANESTHESIOLOGY DAY OF SURGERY NOTE : 1940 Procedure Information Date/Time: 06/12/22 1143 Procedure: LAPAROSCOPY SURGICAL REPAIR INITIAL INGUINAL HERNIA W/ MESH (Right) - Laparoscopic Inguinal Hernia Repair right with mesh possible bilateral Location: [place] OR04 / [place] Surgeons: Florencio Tesfaye MD Estimated body mass index is 28.19 kg/m? as calculated from the following: Height as of 05/31/22: 170.2 cm (5' 7). Weight as of 06/03/22: 81.6 kg (180 lb). Most recent hematocrit and potassium results: Hematocrit 40.4 05/31/2022 Potassium 4.1 05/31/2022 Relevant Problems CARDIO (+) AAA (abdominal aortic aneurysm) (+) Coronary artery disease due to lipid rich plaque (+) Hypertension, essential (+) NSTEMI (non-ST elevated myocardial infarction) (HCC) GI (+) Gastroesophageal ref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 hemorrhage -RENAL (+) Acute renal insufficiency I - PHYSICAL EVALUATION AIRWAY Patient intubated: No. Mallampati: II. TM distance: >3 FB. Neck ROM: full ROM without neurological symptoms. Mouth opening: adequate. Short neck: no. Thick neck: no DENTAL Dental findings: teeth intact and poor dentition. Additional exam findings: no II - ANESTHESIA PLAN ASA Score: 3 Anesthetic Plan: general Airway type: ETT NPO Status: adequate Monitoring plan: Standard ASA. Postoperative analgesic plan: parenteral or oral opioids and multimodal analgesia. Patient / Surrogate agrees to blood products: yes DNR status not reviewed with patient and/or family prior to surgery. Significant changes in the patient condition since the History and Physical, not otherwise documented in primary service progress note: no. Potential Anesthesia issues that may suggest increased risk of complications or contraindication to planned procedure: none. No vitals data found for the desired time range. No current facility-administered medications on file as of 06/12/2022. Outpatient Medications as of 06/12/2022 Medication Sig - lisinopril (ZESTRIL, PRINIVIL) 5 mg tablet Take 1 tablet by mouth once daily. - hydroCHLOROthiazide (HYDRODIURIL, ESIDRIX) 12.5 mg capsule Take 1 capsule by mouth once daily. - amLODIPine (NORVASC) 5 mg tablet Take 1 tablet by mouth once daily. - Cholecalciferol, Vitamin D3, 50 mcg (2,000 unit) cap Take 1 capsule by mouth once daily. - cyanocobalamin (VITAMIN B-12) 1,000 mcg tab Take 1 tablet by mouth once daily. - simvastatin (ZOCOR) 20 mg tablet Take 1 tablet by mouth daily at bedtime. - finasteride (PROSCAR) 5 mg tablet Take 1 tablet by mouth once daily. - atenolol (TENORMIN) 50 mg tablet Take 1 tablet by mouth once daily. - tamsulosin (FLOMAX) 0.4 mg Take 2 capsules by mouth once daily. - triamcinolone acetonide (KENALOG) 0.1 % cream Apply 1 application to affected area twice daily. For eczema, Apply sparingly to area for rash/itching. - isosorbide mononitrate ER (IMDUR) 30 mg 24 hr tablet Take 1 tablet by mouth once daily. - vit C/E/Zn/coppr/lutein/ze axan (PRESERVISION AREDS 2 ORAL) Take 2 tablets by mouth twice daily. - omeprazole 20 mg capsule Take 20 mg by mouth once daily. Take one(1) tablet daily. - Aspirin 81 mg ORAL Tab Take one(1) tablet daily. I have interviewed and examined the patient. I have reviewed the medical record and/or the pre-anesthesia evaluation, pertinent labs, and test results. This contains updated information obtained within 48 hours of Surgery/Procedure. SIGNATURE: Fernando Salinas MD PATIENT NAME: Todd Matamoros DATE: June 12, 2022 TIME: 10:26 AM CSN: [id number] [facility] HISTORY PHYSICALon HISTORY PHYSICAL HNO ID: [id number] Author: Florencio Tesfaye MD Service: General Surgery Author Type: Physician Type: HANDP Filed: 06/12/2022 11:11 AM Note Text: HISTORY AND PHYSICAL Todd Matamoros 1940 REFERRING PHYSICIAN: Self CHIEF COMPLAINT: Follow Up (Bilateral inguinal hernia) HPI: Todd is a 82 year old male with a complaint of a bulge and discomfort in his right inguinal region. The patient notes discomfort in this area with lifting and straining. The symptoms have increased, over the past few weeks. The patient notes no symptoms of bowel obstruction and denies nausea or vomiting. Patient noticed this after he was trying to work on a stump and then working his barn on his tractor. He is never noticed any bulges coming out he is never had any change in his bowel or bladder habits. He had a CAT scan of his abdomen and pelvis which did show bilateral inguinal hernias on the CAT scan. PAST MEDICAL HISTORY PAST MEDICAL HISTORY Diagnosis Date Acute bronchitis Aneurysm of abdominal aorta (HCC) 04/20/2011. Lower abdomen. BPH (benign prostatic hyperplasia) CAD (coronary artery disease) Diverticulosis of colon (without mention of hemorrhage) GERD (gastroesophageal reflux disease) Hyperlipidemia Hypertension Internal hemorrhoids without mention of complication Macular degeneration NSTEMI (non-ST elevated myocardial infarction) ([facility]) 10/28/2019 Osteoarthritis of left hip Paresthesia PMH - PAST MEDICAL HISTORY OF sood PMH - PAST MEDICAL HISTORY OF heart problems PMH - PAST MEDICAL HISTORY OF problems with disc PMH - PAST MEDICAL HISTORY OF age 7 rheumatic fever PMH - PAST MEDICAL HISTORY OF syncope Spinal stenosis, unspecified region other than cervical lumbar Urinary incontinence PAST SURGICAL HISTORY PAST SURGICAL HISTORY Procedure Laterality Date ARTHRP ACETBLR/PROX FEM PROSTC AGRFT/ALGRFT Left 11/26/2017 Dr. Sukhjinder Lewis AVASTIN (BEVACIZUMAB) 1.25MG INTRAVITREAL INJECTION OD (RIGHT EYE) Right multiple COLONOSCOPY FLX DX W/COLLJ SPEC WHEN PFRMD 07/28/07 DIR RPR ANEURYSM ABDOMINAL AORTA 04/20/2011 [facility] EYLEA (AFLIBERCEPT) 2MG INTRAVITREAL INJECTION OD (RIGHT EYE) Right 2017 x 3 OTHER 10/28/2019 PTCA/BRYSON X2 in the saphenous vein graft to OM1. PAST SURGICAL HISTORY OF 09/1996 CABG PAST SURGICAL HISTORY OF 2004, 2016 Back PAST SURGICAL HISTORY OF cardiac cath PAST SURGICAL HISTORY OF 2004 right hip replacement PAST SURGICAL HISTORY OF 06/2007 surveillance cardiac cath PAST SURGICAL HISTORY OF 12/2009 Heart Cath PAST SURGICAL HISTORY OF Left 11/2017 Left Hip Surgery PERIPH ANEUR ARM KHADIJAH MAP INPT 2010 PRICARDIECTOMY STOT/COMPL W/CARDPULM BYPASS 1996 TONSILLECTOMY PRIMARY/SECONDARY Tonsillectomy XCAPSL CTRC RMVL INSJ IO LENS PROSTH W/O ECP Bilateral Cataract Extraction with PC IOL CURRENT MEDICATIONS Current Outpatient Medications Medication Sig lisinopril (ZESTRIL, PRINIVIL) 5 mg tablet Take 1 tablet by mouth once daily. hydroCHLOROthiazide (HYDRODIURIL, ESIDRIX) 12.5 mg capsule Take 1 capsule by mouth once daily. amLODIPine (NORVASC) 5 mg tablet Take 1 tablet by mouth once daily. Cholecalciferol, Vitamin D3, 50 mcg (2,000 unit) cap Take 1 capsule by mouth once daily. cyanocobalamin (VITAMIN B-12) 1,000 mcg tab Take 1 tablet by mouth once daily. simvastatin (ZOCOR) 20 mg tablet Take 1 tablet by mouth daily at bedtime. finasteride (PROSCAR) 5 mg tablet Take 1 tablet by mouth once daily. atenolol (TENORMIN) 50 mg tablet Take 1 tablet by mouth once daily. tamsulosin (FLOMAX) 0.4 mg Take 2 capsules by mouth once daily. clopidogrel (PLAVIX) 75 mg tablet Take 1 tablet by mouth once daily. triamcinolone acetonide (KENALOG) 0.1 % cream Apply 1 application to affected area twice daily. For eczema, Apply sparingly to area for rash/itching. sertraline (ZOLOFT) 25 mg tablet Take 1 tablet by mouth daily at bedtime. isosorbide mononitrate ER (IMDUR) 30 mg 24 hr tablet Take 1 tablet by mouth once daily. vit C/E/Zn/coppr/lutein/ze axan (PRESERVISION AREDS 2 ORAL) Take 2 tablets by mouth twice daily. omeprazole 20 mg capsule Take 20 mg by mouth once daily. Take one(1) tablet daily. clobetasol 0.05 % ointment Apply selectively to dermatitis and/or psoriasis red scaling patch//plaque selectively on lower leg calf once to twice per day (qday to bid) until clear (up to a maximum of 4 to 6 wks if needed) and then stop or taper off as able. Can then substitute a bland moisturizer cream such as CeraVe cream twice per day as able. ceramides 1,3,6-11(CERAVE TOPICAL CREAM) Apply to dry skin areas and psoriasis/eczema areas of hands bid to qid and prn as directed and tolerated. Aspirin 81 mg ORAL Tab Take one(1) tablet daily. No current facility-administered medications for this visit. ALLERGIES: Patient has no known allergies. PERSONAL HISTORY: SOCIAL HISTORY Social History Tobacco Use Smokin (more content not included)... [facility] OPERATIVE NOon 06-12-2022 OPERATIVE NO HNO ID: [id number] Author: Florencio Tesfaye MD Service: General Surgery Author Type: Physician Type: Operative Report Filed: 06/12/2022 12:59 PM Note Text: OPERATIVE/PROCEDURE REPORT LOG ID: [id number] SURGERY/PROCEDURE DATE: 06/12/2022 INCISION/PROCEDURE START TIME: 12:00 PM INCISION CLOSE/PROCEDURE END TIME: 12:49 PM SURGEON(S)/PROCEDURALI ST(S) AND MEDICAL SECRETARY(S): Surgeon(s) and Role: * Florencio Tesfaye MD - Primary Nurse Practitioner: Nuria Banks APRN.MACHINIST APPRENTICE Physician [employer] Contractor: Indy Mosqueda PA-C SURGERY/PROCEDURE(S): Laparoscopic bilateral inguinal hernia repair with mesh ANESTHESIA: General SURGERY/PROCEDURE DETAILS: Patient was brought into the operating room. Placed in the supine position. Under excellent general anesthetic the abdomen was sterilely prepped and draped in the usual fashion. Local was injected supraumbilically. Dissection was carried down to the fascia the fascia was grasped with a Britt varies needle was placed inside the abdomen the abdomen was insufflated to 15 torr. A 10/12 trocar was placed without difficulty. It was flank by 2 number #5 trochars. Over these placed under direct visualization without injury to underlying structures. Patient was placed in the headdown rotated to the left position. I scored the peritoneum on the right. I dissected down to the pubic tubercle and Michael's ligament bringing back a direct inguinal defect into the operating field. I dissected further laterally dissecting the cord and vessel structures free. I had excellent hemostasis. I fashioned a 10 x 15 ProGrip mesh into the wound it laid flat I then reperitonealized the area with a pro tacker. I then went to the left side inspected he did indeed have an inguinal hernia here this was an indirect inguinal hernia I scored the peritoneum on the left once again dissected down to Michael's ligament and the pubic tubercle I dissected further laterally bringing a indirect defect back into the operating field identifying the cord and structures in the process and then dissected further laterally. I had good hemostasis. I fashioned a 16 x 12 mesh which I actually cut down to 15 x 10 ProGrip mesh since we did not have any further 15 x 10's. I placed this into the operating field and lay completely flat in the inguinal floor covering the defect completely. I reperitonealized the area covering the mesh. Ilioinguinal nerve blocks were performed. Trochars were removed good in the stasis was noted a closed the fascia the umbilical port with a [id number] stitch of 0 Vicryl. Skin incisions were closed with subcuticular stitches of 4-0 Monocryl. Steri-Strips were applied sterile dressings were applied patient tolerated the procedure well. Nuria Banks CNP was my lead recreation assistant. She assisted with retraction, visualization and performed skin closure. No additional surgeons or qualified residents were available. PRE-OP/PRE-PROCEDURE DIAGNOSIS: Right inguinal hernia POST-OP/POST-PROCEDURE DIAGNOSIS: Bilateral inguinal hernias ESTIMATED BLOOD LOSS: <30 mls SPECIMENS: None IMPLANTABLE DEVICES: two 10 x 15 ProGrip mesh DRAINS: None COMPLICATIONS: None PARTICIPATION IN SURGERY/PROCEDURE: I/primary surgeon/proceduralist performed the procedure with assistance. SIGNATURE: Florencio Tesfaye III, MD PATIENT NAME: Todd Matamoros DATE: June 12, 2022 TIME: 12:53 PM [facility] Basic metabolic 2000 panelon 05-31-2022 Anion gap [Moles/Vol] 8 mmol/L Low 9 - 18 mmol/L [facility] Calcium [Mass/Vol] 9.2 mg/dL 8.5 - 10. 2 mg/dL [facility] Chloride [Moles/Vol] 104 mmol/L 97 - 10 5 mmol/L [facility] CO2 [Moles/Vol] 24 mmol/L 22 - 30 mmol/L [facility] Creatinine [Mass/Vol] 1.15 mg/dL 0.73 - 1.22 mg/dL [facility] Estimated Glomerular Filtration Rate 63 mL/min/1.73m >=60 mL/min/1.73 m [facility] Glucose [Mass/Vol] 126 mg/dL High 74 - 99 mg/dL [facility] Potassium [Moles/Vol] 4.1 mmol/L 3.7 - 5.1 mmol/L [facility] Sodium [Moles/Vol] 136 mmol/L 136 - 144 mmol/L [facility] Urea nitrogen [Mass/Vol] 25 mg/dL High 9 - 24 mg/dL [facility] CBC W Auto Differential pane l (Bld)on 05-31-2022 Abs Immature Gran <0.10 k/uL [facility] Basophils (Bld) [#/Vol] 0.03 10*3/uL <0.11 k/uL [facility] Basophils/100 WBC (Bld) 0.4 % C [facility] Differential cell count method Nom (Bld) Auto [facility] Eosinophils (Bld) [#/Vol] 0.32 10*3/uL <0.46 k/uL [facility] Eosinophils/100 WBC (Bld) 4.6 % [facility] Erythrocyte distribution width (RBC) [Ratio] 13.8 % 11.5 - 15.0 % [facility] Hematocrit (Bld) [Volume fraction] 40.4 % 39.0 - 51.0 % [facility] Hemoglobin (Bld) [Mass/Vol] 14.2 g/dL 13.0 - 17.0 g/dL [facility] Immature Gran % 0.3 % [facility] Lymphocytes (Bld) [#/Vol] 1.58 10*3/uL 1.00 - 4.00 k/uL [facility] Lymphocytes/100 WBC (Bld) 22.9 % [facility] MCH (RBC) [Entitic mass] 30.3 pg 26.0 - 34.0 pg [facility] MCHC (RBC) [Mass/Vol] 35.1 g/dL 30.5 - 36.0 g/dL [facility] MCV (RBC) [Entitic vol] 86.1 fL 80.0 - 100.0 fL [facility] Monocytes (Bld) [#/Vol] 0.64 10*3/uL <0.87 k/uL [facility] Monocytes/100 WBC (Bld) 9.3 % [facility] Neutrophils (Bld) [#/Vol] 4.31 10*3/uL 1.45 - 7.50 k/uL [facility] Neutrophils/100 WBC (Bld) 62.5 % [facility] Nucleated RBC (Bld) [#/Vol] <0.01 k/uL [facility] Nucleated RBC/100 WBC (Bld) [Ratio] 0.0 /100 WBC [facility] Platelet mean volume (Bld) [Entitic vol] 9.2 fL 9.0 - 12.7 fL [facility] Platelets (Bld) [#/Vol] 126 10*3/uL Low 150 - 400 k/uL [facility] RBC (Bld) [#/Vol] 4.69 10*6/uL 4.20 - 6.0 0 m/uL [facility] WBC (Bld) [#/Vol] 6.90 10*3/uL 3.70 - 11.00 k/uL [facility] Basophil percentageon 2021 Creatinine [Mass/Vol] 1.3 mg/dL 0.70-1.30 [facility] Work Phone: Laboratory - Chemistry and C hemistry - challengeon 01-01-2022 GFR/1.73 sq M.predicted among non-blacks MDRD (S/P/Bld) [Vol rate/Area] 54.0000 mL/min/{1.73_m2} >60 [facility] Work Phone: VL AORTA/IVC/ILIAC/BYPASS GR AFT COMPLETEOrdered By: Shailesh Stone on 06-20-2021 [facility] ----- Abdominal Aortic Endograft Report Patient DO ShilohB: 1940 Study 06/20/2021 Name: Todd Presley (81yrs) Date: Patient [id number] Age: 81 Account: [id number] ID: Gender: M Loc: BP: Ordering Physician: Shailesh Stone Broadcast Designer: SHERWIN MaharajT Interpreting Physician: Prachi López MD ----- Location: [address] ----- Indications: AAA without rupture. ----- Conclusions 1. Right resting MIRNA is 1.07. This is within the normal range. 2. Left resting MIRNA is 1.10. This is within the normal range. 3. There is a 4.5 cm infrarenal abdominal aortic aneurysm. 4. Patent aortic endograft with no evidence of an endoleak. 5. The velocities are normal in both limbs. ----- History: Risk factors: Former tobacco use. Hypertension. Age over 75 years. Labs, prior tests, procedures, and surgery: EVAR. ----- Study data: Abdominal aorta endograft duplex exam. Duplex scan, grayscale 2D imaging, color Doppler imaging, and spectral Doppler analysis. Location: Vascular laboratory. Procedure: A vascular evaluation was performed with the patient in the supine position. Images were obtained using a [employer] E9 vascular ultrasound machine. The study was technically limited due to bowel gas. ----- Arterial pressure indices: + + ------+ + +Location +Pressure (REST)*+Index (REST)+ + + ------+ + +R brachial+145 + + + + ------+ + +L brachial+149 + + + + ------+ + +R DP +158 +1.06 + + + ------+ + +R PT +160 +1.07 + + + ------+ + +L DP +158 +1.06 + + + ------+ + +L PT +164 +1.10 + + + ------+ + ----- Arterial flow: +---------+ --+ +------ -----+--------+------- ----+ +Location +Diameter AP+Diameter +PSV(cm/sec)+Comment +Attachment + + + +Tr + + +sites + +---------+ --+ +------ -----+--------+------- ----+ +Aorta , +2.67 cm +2.70 +39 +--------+ + +prox + + + + + + +---------+ --+ +------ -----+--------+------- ----+ +Aorta , +2.91 cm +2.84 +38 +--------+Infrarenal + +mid + + + + + + +---------+ --+ +------ -----+--------+------- ----+ +Aorta , + +------- -----+32 +Appears + + +prox + + + +negative+ + +stent + + + +for + + +limb + + + +endoleak+ + +---------+ --+ +------ -----+--------+------- ----+ +Aorta , + +------- -----+34 +--------+ + +mid stent+ + + + + + +limb + + + + + + +---------+ --+ +------ -----+--------+------- ----+ +Aorta , + +------- -----+48 +--------+ + +dist + + + + + + +stent + + + + + + +limb + + + + + + +---------+ --+ +------ -----+--------+------- ----+ +Aorta , +4.37 cm +4.48 + +Was 4.67+ + +distal + + + +cm x + + + + + + +4.52 cm + + + + + + +on + + + + + + +previous+ + + + + + +exam + + + + (more content not included)... [employer] Work Phone: [place], [facility] Incoming Cardiology Results From [facility] - 06/20/2021 5:22 PM EDT [facility] ----- Abdominal Aortic Endograft Report Patient Shiloh, : 1940 Study 06/20/2021 Name: Todd Presley (yr) Date: Patient [id number] Age: 81 Account: [id number] ID: Gender: M Loc: BP: Ordering Physician: Shailesh Stone Broadcast Designer: Valerie Ulloa RVT Interpreting Physician: Prachi López MD ----- Location: [address] ----- Indications: AAA without rupture. ----- Conclusions 1. Right resting MIRNA is 1.07. This is within the normal range. 2. Left resting MIRNA is 1.10. This is within the normal range. 3. There is a 4.5 cm infrarenal abdominal aortic aneurysm. 4. Patent aortic endograft with no evidence of an endoleak. 5. The velocities are normal in both limbs. ----- History: Risk factors: Former tobacco use. Hypertension. Age over 75 years. Labs, prior tests, procedures, and surgery: EVAR. ----- Study data: Abdominal aorta endograft duplex exam. Duplex scan, grayscale 2D imaging, color Doppler imaging, and spectral Doppler analysis. Location: Vascular laboratory. Procedure: A vascular evaluation was performed with the patient in the supine position. Images were obtained using a [employer] E9 vascular ultrasound machine. The study was technically limited due to bowel gas. ----- Arterial pressure indices: + + ------+ + +Location +Pressure (REST)*+Index (REST)+ + + ------+ + +R brachial+145 + + + + ------+ + +L brachial+149 + + + + ------+ + +R DP +158 +1.06 + + + ------+ + +R PT +160 +1.07 + + + ------+ + +L DP +158 +1.06 + + + ------+ + +L PT +164 +1.10 + + + ------+ + ----- Arterial flow: +---------+ --+ +------ -----+--------+------- ----+ +Location +Diameter AP+Diameter +PSV(cm/sec)+Comment +Attachment + + + +Tr + + +sites + +---------+ --+ +------ -----+--------+------- ----+ +Aorta , +2.67 cm +2.70 +39 +--------+ + +prox + + + + + + +---------+ --+ +------ -----+--------+------- ----+ +Aorta , +2.91 cm +2.84 +38 +--------+Infrarenal + +mid + + + + + + +---------+ --+ +------ -----+--------+------- ----+ +Aorta , + +------- -----+32 +Appears + + +prox + + + +negative+ + +stent + + + +for + + +limb + + + +endoleak+ + +---------+ --+ +------ -----+--------+------- ----+ +Aorta , + +------- -----+34 +--------+ + +mid stent+ + + + + + +limb + + + + + + +---------+ --+ +------ -----+--------+------- ----+ +Aorta , + +------- -----+48 +--------+ + +dist + + + + + + +stent + + + + + + +limb + + + + + + +---------+ --+ +------ -----+--------+------- ----+ +Aorta , +4.37 cm +4.48 + +Was 4.67+ + +distal + + + +cm x + + + + + + +4.52 cm + + + + + + +on + + + + + + +previous+ + + + + + +exam + + + + + + +10/09/20+ + + + + + +. + + +---------+ --+ +------ -----+--------+------- ----+ +Right + +------- -----+46 +--------+ + +limb , + + + + + + +prox + + + + + + +---------+ --+ +------ -----+--------+------- ----+ +Right + +------- -----+78 +--------+ + +limb , + + + + + + +mid + + + + + + +---------+ --+ +------ -----+--------+------- ----+ +Right + +------- -----+61 +--------+ + +limb , + + + + + + +distal + + + + + + +---------+ --+ +------ -----+--------+------- ----+ +R CLARITZA , +1.59 cm +1.49 +60 +--------+Right + +distal to+ + + + +Common + +stent + + + + +Iliac + + + + + + +Artery + +---------+ --+ +------ -----+--------+------- ----+ +Left limb+ +--- ---------+60 +--------+ + +, prox + + + + + + +---------+ --+ +------ -----+--------+------- ----+ +Left limb+ (more content not included)... [employer] Work Phone: [facility] Phone: VL Aorta Iliac Duplex w/ Te nt Drew 06-20-2021 VL Aorta Iliac Duplex w/ Stent Graft Patient Name: TODD MATAMOROS [facility]#: [id number] Ultrasound ACCESSION EXAM DATE/TIME PROCEDURE ORDERING PROVIDER [id number] 06/20/2021 10:18 EDT VL Aorta Iliac Duplex w/ [id number] -SHAILESH STONE Stent Graft CPT code 05605 [id number] Reason For Exam (VL Aorta Iliac Duplex w/ Stent Graft) Presence of other vascular implants and grafts Report [facility] ----- Abdominal Aortic Endograft Report Patient DO ShilohB: 1940 Study 06/20/2021 Name: Todd Presley (81yrs) Date: Patient [id number] Age: 81 Account: [id number] ID: Gender: M Loc: BP: Ordering Physician: Shailesh Stone Broadcast Designer: Valerie Ulloa RVT Interpreting Physician: Prachi López MD ----- Location: [address] ----- Indications: AAA without rupture. ----- Conclusions 1. Right resting MIRNA is 1.07. This is within the normal range. 2. Left resting MIRNA is 1.10. This is within the normal range. 3. There is a 4.5 cm infrarenal abdominal aortic aneurysm. 4. Patent aortic endograft with no evidence of an endoleak. 5. The velocities are normal in both limbs. ----- History: Risk factors: Former tobacco use. Hypertension. Age over 74 years. Labs, prior tests, procedures, and surgery: EVAR. ----- Study data: Abdominal aorta endograft duplex exam. Duplex scan, Ultrasound Report grayscale 2D imaging, color Doppler imaging, and spectral Doppler analysis. Location: Vascular laboratory. Procedure: A vascular evaluation was performed with the patient in the supine position. Images were obtained using a [employer] E9 vascular ultrasound machine. The study was technically limited due to bowel gas. ----- Arterial pressure indices: + + ------+ + +Location +Pressure (REST)*+Index (REST)+ + + ------+ + +R brachial+145 + + + + ------+ + +L brachial+149 + + + + ------+ + +R DP +158 +1.06 + + + ------+ + +R PT +160 +1.07 + + + ------+ + +L DP +158 +1.06 + + + ------+ + +L PT +164 +1.10 + + + ------+ + ----- Arterial flow: +---------+ --+ +------ -----+--------+------- ----+ +Location +Diameter AP+Diameter +PSV(cm/sec)+Comment +Attachment + + + +Tr + + +sites + +---------+ --+ +------ -----+--------+------- ----+ +Aorta , +2.67 cm +2.70 +39 +--------+ + +prox + + + + + + +---------+ --+ +------ -----+--------+------- ----+ +Aorta , +2.91 cm +2.84 +38 +--------+Infrarenal + +mid + + + + + + +---------+ --+ +------ -----+--------+------- ----+ +Aorta , + +------- -----+32 +Appears + + +prox + + + +negative+ + +stent + + + +for + + +limb + + + +endoleak+ + +---------+ --+ +------ -----+--------+------- ----+ +Aorta , + +------- -----+34 +--------+ + +mid stent+ + + + + + +limb + + + + + + +---------+ --+ +------ -----+--------+------- ----+ +Aorta , + +------- -----+48 +--------+ + +dist + + + + + + +stent + + + + + + +limb + + + + + + +---------+ --+ +------ -----+--------+------- ----+ +Aorta , +4.37 cm +4.48 + +Was 4.67+ + +distal + + + +cm x + + + + + + +4.52 cm + + + + + + +on + + + + + + +previous+ + + + + + +exam + + + + + + +10/09/20+ + + + + + +. + + +---------+ --+ +------ -----+--------+------- ----+ +Right + +------- -----+46 +--------+ + Ultrasound Report +limb , + + + + + + +prox + + + + + + +---------+ --+ +------ -----+--------+------- ----+ +Right + +------- -----+78 +--------+ + +limb , + + + + + + +mid + + + + + + +---------+ --+ +------ -----+--------+------- ----+ +Right + +------- -----+61 +--------+ + +limb , + + + + + + +distal + + + + + + +---------+ --+ +------ -----+--------+------- ----+ +R CLARITZA , +1.59 cm +1.49 +60 +--------+Right + +distal to+ + + + +Common + +stent + + + + +Iliac + + + + + + +Artery + (more content not included)... Normal [facility] VL Aorta IVC Bypass Drew 06-02-2020 [facility] ----- Abdominal Aortic Endograft Report Ordering Physician: John Clark MD Broadcast Designer: Mae Brito [facility] Interpreting Physician: Fernando Walker MD ----- Location: [address] ----- Indications: AAA without rupture, history of endovascular stent graft for AAA. ----- Conclusions 1. Right resting MIRNA is 1.05. This is within the normal range. 2. Left resting MIRNA is 1.06. This is within the normal range. 3. Study is negative for aneurysm involving the abdominal aorta. 4. The proximal and distal attachments sites are normal. 5. No endoleak present at this time. 6. No flow in sac. 7. The right renal velocity is normal. 8. The left renal velocity is normal. 9. MIRNA is normal. ----- History: Risk factors: Former tobacco use. Hypertension. Hyperlipidemia. Age over 65 years. ----- Study data: Abdominal aorta endograft duplex exam. Duplex scan, grayscale 2D imaging, color Doppler imaging, and spectral Doppler analysis. Location: Vascular laboratory. Procedure: A vascular evaluation was performed with the patient in the supine position. Images were obtained using a [employer] E9 vascular ultrasound machine. ----- Arterial pressure indices: + + ------+ + +Location +Pressure (REST)*+Index (REST)+ + + ------+ + +R brachial+146 + + + + ------+ + +R DP +136 +0.87 + + + ------+ + +R PT +164 +1.05 + + + ------+ + +L brachial+156 + + + + ------+ + +L DP +140 +0.90 + + + ------+ + +L PT +166 +1.06 + + + ------+ + ----- Arterial flow: + +---- ---------+ + +--------- ----+ +Location +Diameter AP+Diameter +PSV(cm/sec)+Comment + + + +Tr + + + + +---- ---------+ + +--------- ----+ +Suprarenal aorta+1.99 cm +1.79 +38 +No leak seen.+ +, prox + + + + + + +---- ---------+ + +--------- ----+ +Aorta , prox + +------- -----+28 + + +stent limb + + + + + + +---- ---------+ + +--------- ----+ +Aorta , mid + +------- -----+31 + + +stent limb + + + + + + +---- ---------+ + +--------- ----+ +Aorta , dist + +------- -----+77 + + +stent limb + + + + + + +---- ---------+ + +--------- ----+ +Abdominal aorta +2.54 cm +2.62 +28 + + +, mid + + + + + + +---- ---------+ + +--------- ----+ +Abdominal aorta +4.67 cm +4.52 +77 +Last exam on + +, distal + + + +03--19 mmt + + + + + +4.49 cm x + + + + + +4.51 cm + + +---- ---------+ + +--------- ----+ +Right limb , + +------- -----+109 + + +prox + + + + + + +---- ---------+ + +--------- ----+ +Right limb , mid+ +---- --------+130 + + + +---- ---------+ + +--------- ----+ +Right limb , + +------- -----+91 + + +distal + + + + + + +---- ---------+ + +--------- ----+ +R CLARITZA , distal +1.15 cm +1.15 +89 + + +to stent + + + + + + +---- ---------+ + +--------- ----+ +Left limb , prox+ +--- ---------+89 + + + +---- ---------+ + +--------- ----+ +Left limb , mid + +------- -----+82 + + + +---- ---------+ + +--------- ----+ +Left limb , + +------- -----+113 + + +distal + + + + + + +---- ---------+ + +--------- ----+ +L CLARITZA , distal +1.06 cm +1.19 +97 + + +to stent + + + + + + +---- ---------+ + +--------- ----+ +R renal artery + +------- -----+81 + + +max + + + + + + +---- ---------+ + +--------- ----+ +L renal artery + +------- -----+71 + + +max + + + + + + +---- ---------+ + +--------- ----+ Prepared and electronically signed by Fernando Walker MD 06/02/2020 14:26 - [place], [place], [facility] Cardiology Results From Navin/C[facility] - 06/02/2020 2:26 PM EDT [facility] ----- Abdominal Aortic Endograft Report Ordering Physician: John Clark MD Broadcast Designer: SHERWIN JayT Interpreting Physician: Fernando Walker MD ----- Location: [address] ----- Indications: AAA without rupture, history of endovascular stent graft for AAA. ----- Conclusions 1. Right resting MIRNA is 1.05. This is within the normal range. 2. Left resting MIRNA is 1.06. This is within the normal range. 3. Study is negative for aneurysm involving the abdominal aorta. 4. The proximal and distal attachments sites are normal. 5. No endoleak present at this time. 6. No flow in sac. 7. The right renal velocity is normal. 8. The left renal velocity is normal. 9. MIRNA is normal. ----- History: Risk factors: Former tobacco use. Hypertension. Hyperlipidemia. Age over 64 years. ----- Study data: Abdominal aorta endograft duplex exam. Duplex scan, grayscale 2D imaging, color Doppler imaging, and spectral Doppler analysis. Location: Vascular laboratory. Procedure: A vascular evaluation was performed with the patient in the supine position. Images were obtained using a [employer] E9 vascular ultrasound machine. ----- Arterial pressure indices: + + ------+ + +Location +Pressure (REST)*+Index (REST)+ + + ------+ + +R brachial+146 + + + + ------+ + +R DP +136 +0.87 + + + ------+ + +R PT +164 +1.05 + + + ------+ + +L brachial+156 + + + + ------+ + +L DP +140 +0.90 + + + ------+ + +L PT +166 +1.06 + + + ------+ + ----- Arterial flow: + +---- ---------+ + +--------- ----+ +Location +Diameter AP+Diameter +PSV(cm/sec)+Comment + + + +Tr + + + + +---- ---------+ + +--------- ----+ +Suprarenal aorta+1.99 cm +1.79 +38 +No leak seen.+ +, prox + + + + + + +---- ---------+ + +--------- ----+ +Aorta , prox + +------- -----+28 + + +stent limb + + + + + + +---- ---------+ + +--------- ----+ +Aorta , mid + +------- -----+31 + + +stent limb + + + + + + +---- ---------+ + +--------- ----+ +Aorta , dist + +------- -----+77 + + +stent limb + + + + + + +---- ---------+ + +--------- ----+ +Abdominal aorta +2.54 cm +2.62 +28 + + +, mid + + + + + + +---- ---------+ + +--------- ----+ +Abdominal aorta +4.67 cm +4.52 +77 +Last exam on + +, distal + + + +03--19 mmt + + + + + +4.49 cm x + + + + + +4.51 cm + + +---- ---------+ + +--------- ----+ +Right limb , + +------- -----+109 + + +prox + + + + + + +---- ---------+ + +--------- ----+ +Right limb , mid+ +---- --------+130 + + + +---- ---------+ + +--------- ----+ +Right limb , + +------- -----+91 + + +distal + + + + + + +---- ---------+ + +--------- ----+ +R CLARITZA , distal +1.15 cm +1.15 +89 + + +to stent + + + + + + +---- ---------+ + +--------- ----+ +Left limb , prox+ +--- ---------+89 + + + +---- ---------+ + +--------- ----+ +Left limb , mid + +------- -----+82 + + + +---- ---------+ + +--------- ----+ +Left limb , + +------- -----+113 + + +distal + + + + + + +---- ---------+ + +--------- ----+ +L CLARITZA , distal +1.06 cm +1.19 +97 + + +to stent + + + + + + +---- ---------+ + +--------- ----+ +R renal artery + +------- -----+81 + + +max + + + + + + +---- ---------+ + +--------- ----+ +L renal artery + +------- -----+71 + + +max + + + + + + +---- ---------+ + +--------- ----+ Prepared and electronically signed by Fernando Walker MD 06/02/2020 14:26 [place], [place] Clinical Summary: HMSPatient IDon 05-12-2018 OOP Invalid Interpretation Code [facility] Work Phone: Office Visit: Follow-up by Mann peng: 1on 05-12-2018 NEGATED: Highlighted rowProtein mass conc Done Invalid Interpretation Code [facility] Work Phone: Lab Report: Lipid Profileon 08-12-2017 Cholesterol 112 mg/dL Invalid Interpretation Code 200 [facility] Work Phone: HDL Cholesterol 35 mg/dL [facility] Work Phone: LDL Cholesterol 45 mg/dL Invalid Interpretation Code 0-130 [facility] Work Phone: Triglyceride 162 mg/dL Invalid Interpretation Code [facility] Work Phone: very low density lipoproteins 32 mg/dL Invalid Interpretation Code 5-40 [facility] Work Phone: Lab Report: Liver Profileon 08-12-2017 Alanine aminotransferase (ALT) 17 U/L Invalid Interpretation Code 12-78 [facility] Work Phone: Albumin 3.6 g/dL Invalid Interpretation Code 3.4-5.0 [employer] Work Phone: [phone] Alkaline phosphatase (ALP) 145 U/L High 45-117 [employer] Work Phone: [phone] Aspartate aminotransferase (AST) 15 U/L Invalid Interpretation Code 15-37 [employer] Work Phone: [phone] Bilirubin (direct) 0.14 mg/dL Invalid Interpretation Code 0.00-0.30 [employer] Work Phone: [phone] Bilirubin (total) 0.50 mg/dL Invalid Interpretation Code 0.20-1.00 [employer] Work Phone: [phone] Globulin 4.4 g/dL High 2.2-4.2 [employer] Work Phone: [phone] Protein 8.0 g/dL Invalid Interpretation Code 6.4-8.2 [employer] Work Phone: [phone] Office Visiton 02-03-2017 Documentation of current medications (procedure) Done Invalid Interpretation Code [employer] Work Phone: [phone] Fall risk assessment No Invalid Interpretation Code [employer] Work Phone: [phone] Protein mass conc Done [employer] Work Phone: [phone] Chart Maintenanceon 02-02-20 17 Left ventricular Ejection fraction 65 % Invalid Interpretation Code [employer] Phone: [phone] Lab Report: Lipid Profileon 01-31-2017 Cholesterol 127 mg/dL Invalid Interpretation Code 200 [employer] Work Phone: [phone] HDL Cholesterol 40 mg/dL Invalid Interpretation Code [employer] Work Phone: [phone] LDL Cholesterol 54 mg/dL Invalid Interpretation Code 0-130 [employer] Work Phone: [phone] Triglyceride 166 mg/dL Invalid Interpretation Code [employer] Work Phone: [phone] very low density lipoproteins 33 mg/dL Invalid Interpretation Code 5-40 [employer] Work Phone: [phone] Lab Report: Liver Profileon 01-31-2017 Alanine aminotransferase (ALT) 26 U/L Invalid Interpretation Code 12-78 [employer] Work Phone: [phone] Albumin 3.8 g/dL Invalid Interpretation Code 3.4-5.0 [facility] Work Phone: [phone] Alkaline phosphatase (ALP) 132 U/L High 45-117 [facility] Work Phone: [phone] ALP enzyme act/vol (Bld) 132 U/L High 45-117 [facility] Work Phone: [phone] Aspartate aminotransferase (AST) 16 U/L Invalid Interpretation Code 15-37 [facility] Work Phone: [phone] Bilirubin (direct) 0.19 mg/dL Invalid Interpretation Code 0.00-0.30 [facility] Work Phone: [phone] Bilirubin (total) 0.70 mg/dL Invalid Interpretation Code 0.20-1.00 [facility] Work Phone: [phone] Globulin 3.5 g/dL Invalid Interpretation Code 2.3-3.5 [facility] Work Phone: [phone] Globulin mass conc (S) 3.5 g/dL 2.3-3.5 [facility] Work Phone: [phone] Protein 7.3 g/dL Invalid Interpretation Code 6.4-8.2 [facility] Work Phone: [phone] Office Visiton 07-30-2016 Documentation of current medications (procedure) Done Invalid Interpretation Code [facility] Work Phone: [phone] Protein mass conc Done [facility] Work Phone: [phone] Tobacco smoking status DEIS Tobacco smoking status DEIS Invalid Interpretation Code [facility] Work Phone: [phone] Tobacco smoking status [facility] Former smoker [facility] Work Phone: [phone] Tobacco use [facility] Former smoker Invalid Interpretation Code [facility] Work Phone: [phone] Lab Report: Lipid Profileon 07-01-2016 Cholesterol in HDL mass conc 31 mg/dL Low [facility] Work Phone: [phone] Cholesterol in LDL mass conc 29 mg/dL 0-130 [facility] Work Phone: [phone] Cholesterol mass conc 106 mg/dL [address] [facility] Work Phone: [phone] Lipoprotein.pre-beta mass conc 46 mg/dL High 5-40 [facility] Work Phone: [phone] Triglyceride mass conc 232 mg/dL High [facility] Work Phone: [phone] Lab Report: Liver Profileon 07-01-2016 Albumin mass conc 4.0 g/dL 3.4-5.0 [facility] Work Phone: [phone] ALP enzyme act/vol (Bld) 137 U/L High 50-136 [facility] Work Phone: [phone] ALT enzyme act/vol 25 U/L 12-78 [facility] Work Phone: [phone] AST enzyme act/vol 23 U/L 15-37 [facility] Work Phone: [phone] Bilirubin mass conc 0.70 mg/dL 0.20-1.00 [facility] Work Phone: [phone] Bilirubin.direct mass conc 0.15 mg/dL 0.00-0.30 [facility] Work Phone: [phone] Globulin mass conc (S) 3.3 g/dL 2.3-3.5 [facility] Work Phone: [phone] Protein mass conc 7.3 g/dL 6.4-8.2 [facility] Work Phone: [phone] Office Visiton 01-02-2016 Dietary management education, guidance, and counseling (procedure) yes Invalid Interpretation Code [facility] Work Phone: [phone] Office Visiton 07-03-2015 cardiac risk group C Invalid Interpretation Code [facility] Work Phone: [phone] General cardiovascular disease 10Y risk [#] [place].D'Agostino N/A Invalid Interpretation Code [facility] Work Phone: [phone] Protein mass conc yes [facility] Work Phone: [phone] Smoking cessation education (procedure) yes Invalid Interpretation Code [facility] Work Phone: [phone] Lab Report: LIVERon 06-14-20 14 ALK 139 U/L High 50-136 [facility] Work Phone: [phone] GE use only - for [employer] import when terms are not otherwise specified 139 U/L High 50-136 [facility] Work Phone: [phone] Replaced Document: Harjit Orr 05-24-2013 EKG QRS axis 28 deg [facility] [employer] Work Phone: [phone] electrocardiogram interpretation Sinus Bradycardia WITHIN NORMAL LIMITS Invalid Interpretation Code [facility] Work Phone: [phone] Interpretation Sinus Bradycardia WITHIN NORMAL LIMITS [facility] Work Phone: [phone] P [place] 55 deg [facility] Work Phone: [phone] P wave axis, electrocardiogram 55 deg Invalid Interpretation Code [facility] Work Phone: [phone] [place] Interval 138 ms [facility] Work Phone: [phone] [place] interval, electrocardiogram 138 ms Invalid Interpretation Code [facility] Work Phone: [phone] Pulse (Heart Rate) 442 ms Invalid Interpretation Code [facility] Work Phone: [phone] Pulse (Heart Rate) 57 /min Invalid Interpretation Code [facility] Work Phone: [phone] QRS axis, electrocardiogram 28 deg Invalid Interpretation Code [facility] Work Phone: [phone] QRS Duration 98 ms [facility] Work Phone: [phone] QRS duration, electrocardiogram 98 ms Invalid Interpretation Code [facility] Work Phone: [phone] QT Interval new path ms [facility] Work Phone: [phone] QT interval, electrocardiogram new path ms Invalid Interpretation Code [facility] Work Phone: [phone] T [place] 79 deg [facility] Work Phone: [phone] T wave axis, electrocardiogram 79 deg Invalid Interpretation Code [facility] Work Phone: [phone] Hemoglobin.gastrointestinal Ql ([place]) Gastric Occult Blood Positive [facility] Work Phone: Vital Signs Date Time Vital Sign Value Performing Clinician Facility 03-22-2025 14:16-0400 Body height 167.[address] Robel Onofre DO Work Phone: [facility] 03-22-2025 14:16-0400 Body mass index (BMI) [Ratio] 29.9 kg/m2 Dr. Robel Onofre DO Work Phone: [phone] [place] [address] 03-22-2025 14:16-0400 Body weight 84.[address] Robel Onofre DO Work Phone: [phone] [place] [address] 03-22-2025 14:16-0400 Diastolic blood pressure 73 mm[Hg] Dr. Robel Onofre DO Work Phone: [phone] [place] [address] 03-22-2025 14:16-0400 Heart rate 57 /min Dr. Robel Onofre DO Work Phone: [phone] [place] [address] 03-22-2025 14:16-0400 Respiratory rate 16 /min Dr. Robel Onofre DO Work Phone: [phone] [place] [address] 03-22-2025 14:16-0400 Systolic blood pressure 149 mm[Hg] Dr. Robel Onofre DO Work Phone: [phone] [place] [address] 12-27-2024 10:58-0400 Body mass index (BMI) [Ratio] 28.23 kg/m2 Robel Onofre DO Work Phone: [facility] 12-27-2024 10:58-0400 Body temperature 98.6 [degF] Robel Onofre DO Work Phone: [facility] 12-27-2024 10:58-0400 Body weight 82.56 kg Robel Hernandezon DO Work Phone: [facility] 12-27-2024 10:58-0400 Diastolic blood pressure 70 mm[Hg] Robel Hernandezon DO Work Phone: [facility] 12-27-2024 10:58-0400 Heart rate 60 /min Robel Hernandezon DO Work Phone: [facility] 12-27-2024 10:58-0400 Respiratory rate 20 /min Robel Onofre DO Work Phone: [facility] 12-27-2024 10:58-0400 Systolic blood pressure 110 mm[Hg] Robel Onofre DO Work Phone: [facility] 12-14-2024 14:57-0400 Body temperature 97.4 [degF] Dr. Robel Onofre DO Work Phone: [facility] 12-14-2024 14:57-0400 Diastolic blood pressure 92 mm[Hg] Dr. Robel Onofre DO Work Phone: [facility] 12-14-2024 14:57-0400 Heart rate 52 /min Dr. Robel Onofre DO Work Phone: [facility] 12-14-2024 14:57-0400 Respiratory rate 18 /min Dr. Robel Onofre DO Work Phone: [facility] 12-14-2024 14:57-0400 SaO2% (BldA) [Mass fraction] 97 % Dr. Robel Onofre DO Work Phone: [facility] 12-14-2024 14:57-0400 Systolic blood pressure 174 mm[Hg] Dr. Robel Onofre DO Work Phone: [phone] [place] [address] 12-14-2024 12:40-0400 Body height 167.[address] Robel Onofre DO Work Phone: [facility] 12-14-2024 11:45-0400 Body mass index (BMI) [Ratio] 28.76 kg/m2 Asha Hernandez APRN.MACHINIST APPRENTICE Work Phone: [facility] 12-14-2024 11:45-0400 Body weight 84.1 kg Asha Hernandez DRILLER HAND.MACHINIST APPRENTICE Work Phone: [facility] 12-14-2024 11:45-0400 Diastolic blood pressure 84 mm[Hg] Asha Hernandez DRILLER HAND.MACHINIST APPRENTICE Work Phone: [facility] 12-14-2024 11:45-0400 Heart rate 54 /min Asha Hernandez APRN.MACHINIST APPRENTICE Work Phone: [facility] 12-14-2024 11:45-0400 Respiratory rate 12 /min Asha Hernandez DRILLER HAND.MACHINIST APPRENTICE Work Phone: [facility] 12-14-2024 11:45-0400 SaO2% (BldA) [Mass fraction] 98 % Asha AlvaradoAnamaria DRILLER HAND.MACHINIST APPRENTICE Work Phone: [facility] 12-14-2024 11:45-0400 Systolic blood pressure 152 mm[Hg] Asha Hernandez DRILLER HAND.MACHINIST APPRENTICE Work Phone: [facility] 06-30-2024 10:29-0500 Body mass index (BMI) [Ratio] 28.85 kg/m2 Robel Onofre DO Work Phone: [facility] 06-30-2024 10:29-0500 Body temperature 97.81 [degF] Robel Onofre DO Work Phone: [facility] 06-30-2024 10:29-0500 Body weight 84.37 kg Robel Onofre DO Work Phone: [facility] 06-30-2024 10:29-0500 Diastolic blood pressure 80 mm[Hg] Roble Onofre DO Work Phone: [facility] 06-30-2024 10:29-0500 Heart rate 64 /min Robel Onofre DO Work Phone: [facility] 06-30-2024 10:29-0500 Respiratory rate 20 /min Robel Onofre DO Work Phone: [facility] 06-30-2024 10:29-0500 Systolic blood pressure 140 mm[Hg] Robel Onofre DO Work Phone: [facility] 03-10-2024 12:21-0400 Body mass index (BMI) [Ratio] 27.74 kg/m2 Bessie Ambrocio DRILLER HAND.MACHINIST APPRENTICE Work Phone: [facility] 03-10-2024 12:21-0400 Body weight 81.1 kg Bessie Ambrocio DRILLER HAND.MACHINIST APPRENTICE Work Phone: [facility] 03-10-2024 12:21-0400 Diastolic blood pressure 78 mm[Hg] Bessie Cristóbal DRILLER HAND.MACHINIST APPRENTICE Work Phone: [facility] 03-10-2024 12:21-0400 Heart rate 55 /min Bessie Cristóbal DRILLER HAND.MACHINIST APPRENTICE Work Phone: [facility] 03-10-2024 12:21-0400 Respiratory rate 18 /min Bessie Cristóbal DRILLER HAND.MACHINIST APPRENTICE Work Phone: [facility] 03-10-2024 12:21-0400 SaO2% (BldA) [Mass fraction] 96 % Bessie Cristóbal DRILLER HAND.MACHINIST APPRENTICE Work Phone: [facility] 03-10-2024 12:21-0400 Systolic blood pressure 136 mm[Hg] Bessie Cristóbal DRILLER HAND.MACHINIST APPRENTICE Work Phone: [facility] 02-04-2024 12:48-0400 Body mass index (BMI) [Ratio] 27.67 kg/m2 Bessie Cristóbal DRILLER HAND.MACHINIST APPRENTICE Work Phone: [facility] 02-04-2024 12:48-0400 Body weight 80.92 kg Bessie Cristóbal DRILLER HAND.MACHINIST APPRENTICE Work Phone: [facility] 02-04-2024 12:48-0400 Diastolic blood pressure 80 mm[Hg] Bessie Cristóbal DRILLER HAND.MACHINIST APPRENTICE Work Phone: [facility] 02-04-2024 12:48-0400 Heart rate 52 /min Bessie Cristóbal DRILLER HAND.MACHINIST APPRENTICE Work Phone: [facility] 02-04-2024 12:48-0400 Respiratory rate 20 /min Bessie Cristóbal DRILLER HAND.MACHINIST APPRENTICE Work Phone: [facility] 02-04-2024 12:48-0400 SaO2% (BldA) [Mass fraction] 96 % Bessie Cristóbal DRILLER HAND.MACHINIST APPRENTICE Work Phone: [facility] 02-04-2024 12:48-0400 Systolic blood pressure 122 mm[Hg] Bessie Ambrocio APRNBeataMACHINIST APPRENTICE Work Phone: [facility] 12-22-2023 12:12-0400 Body mass index (BMI) [Ratio] 27.92 kg/m2 Robel Onofre DO Work Phone: [facility] 12-22-2023 12:12-0400 Body temperature 96.69 [degF] Robel Onofre DO Work Phone: [facility] 12-22-2023 12:12-0400 Body weight 81.65 kg Robel Onofre DO Work Phone: [facility] 12-22-2023 12:12-0400 Diastolic blood pressure 70 mm[Hg] Robel Onofre DO Work Phone: [facility] 12-22-2023 12:12-0400 Heart rate 64 /min Robel Onofre DO Work Phone: [facility] 12-22-2023 12:12-0400 Respiratory rate 20 /min Robel Onofre DO Work Phone: [facility] 12-22-2023 12:12-0400 Systolic blood pressure 120 mm[Hg] Robel Onofre DO Work Phone: [facility] 06-13-2023 13:19-0400 Body height 171 cm Robel Onofre DO Work Phone: [facility] 06-13-2023 13:19-0400 Body temperature 96.69 [degF] Robel Onofre DO Work Phone: [facility] 06-13-2023 13:190400 Body weight 83.92 kg Robel Onofre DO Work Phone: [facility] 06-13-2023 13:19-0400 Diastolic blood pressure 70 mm[Hg] Robel Onofre DO Work Phone: [facility] 06-13-2023 13:19-0400 Heart rate 56 /min Robel Onofre DO Work Phone: [facility] 06-13-2023 13:19-0400 Respiratory rate 24 /min Robel Onofre DO Work Phone: [facility] 06-13-2023 13:19-0400 Systolic blood pressure 136 mm[Hg] Robel Onofre DO Work Phone: [facility] 12-06-2022 09:36-0400 Body temperature 97.7 [degF] Robel Onofre DO Work Phone: [facility] 12-06-2022 09:36-0400 Body weight 82.56 kg Robel Onofre DO Work Phone: [facility] 12-06-2022 09:36-0400 Diastolic blood pressure 60 mm[Hg] Robel Onofre DO Work Phone: [facility] 12-06-2022 09:36-0400 Heart rate 60 /min Robel Onofre DO Work Phone: [facility] 12-06-2022 09:36-0400 Respiratory rate 20 /min Robel Onofre DO Work Phone: [facility] 12-06-2022 09:36-0400 Systolic blood pressure 120 mm[Hg] Robel Onofre DO Work Phone: [facility] 07-03-2022 07:49-0500 Body weight 81.56 kg Bessie Cristóbal DRILLER HAND.MACHINIST APPRENTICE Work Phone: [facility] 07-03-2022 07:49-0500 Diastolic blood pressure 80 mm[Hg] Bessie Cristóbal DRILLER HAND.MACHINIST APPRENTICE Work Phone: [facility] 07-03-2022 07:49-0500 Heart rate 55 /min Bessie Cristóbal DRILLER HAND.MACHINIST APPRENTICE Work Phone: [facility] 07-03-2022 07:49-0500 SaO2% (BldA) [Mass fraction] 98 % Bessie Cristóbal DRILLER HAND.MACHINIST APPRENTICE Work Phone: [facility] 07-03-2022 07:49-0500 Systolic blood pressure 128 mm[Hg] Bessie Cristóbal DRILLER HAND.MACHINIST APPRENTICE Work Phone: [facility] 06-15-2022 12:48-0400 Body temperature 98.5 [degF] Dr. Robel Onofre Work Phone: [facility] Work Phone: 06-15-2022 12:48-0400 Diastolic blood pressure 48 mm[Hg] Dr. Robel Onofre Work Phone: [facility] Work Phone: 06-15-2022 12:48-0400 Heart rate 63 /min Dr. Robel Onofre Work Phone: [facility] Work Phone: 06-15-2022 12:48-0400 Respiratory rate 18 /min Dr. Robel Onofre Work Phone: [facility] Work Phone: 06-15-2022 12:48-0400 SaO2% (BldA) [Mass fraction] 94 % Dr. Robel Onofre Work Phone: [facility] Work Phone: 06-15-2022 12:48-0400 Systolic blood pressure 111 mm[Hg] Dr. Robel Onofre Work Phone: [facility] Work Phone: 06-15-2022 03:54-0400 Body weight 82.[address] Robel Onofre Work Phone: [facility] Work Phone: 06-14-2022 15:08-0400 Body height [address] Robel Onofre Work Phone: [facility] Work Phone: 06-14-2022 15:08-0400 Body mass index (BMI) [Ratio] 27.2 kg/m2 Dr. Robel Onofre Work Phone: [facility] Work Phone: 06-13-2022 19:28-0400 Body temperature 99.1 [degF] Dr. Robel Onofre Work Phone: [facility] Work Phone: 06-13-2022 19:28-0400 Diastolic blood pressure 70 mm[Hg] Dr. Robel Onofre Work Phone: [facility] Work Phone: 06-13-2022 19:28-0400 Heart rate 80 /min Dr. Robel Onofre Work Phone: [facility] Work Phone: 06-13-2022 19:28-0400 Respiratory rate 20 /min Dr. Robel Onofre Work Phone: [facility] Work Phone: 06-13-2022 19:28-0400 SaO2% (BldA) [Mass fraction] 95 % Dr. Robel Onofre Work Phone: [facility] Work Phone: 06-13-2022 19:28-0400 Systolic blood pressure 152 mm[Hg] Dr. Robel Onofre Work Phone: [facility] Work Phone: 06-13-2022 16:28-0400 Body height 170.[address] Robel Onofre Work Phone: [facility] Work Phone: 06-13-2022 16:28-0400 Body mass index (BMI) [Ratio] 28.3 kg/m2 Dr. Robel Onofre Work Phone: [facility] Work Phone: 06-13-2022 16:28-0400 Body weight 82.[address] Robel Onofre Work Phone: [facility] Work Phone: 06-12-2022 13:30-0400 Diastolic blood pressure 67 mm[Hg] Florencio Tesfaye MD Work Phone: [facility] 10-19-2022 13:30-0400 Heart rate 49 /min Florencio Tesfaye MD Work Phone: [facility] 06-12-2022 13:30-0400 Respiratory rate 13 /min Florencio Tesfaye MD Work Phone: [facility] 06-12-2022 13:30-0400 SaO2% (BldA) [Mass fraction] 99 % Florencio Tesfaye MD Work Phone: [facility] 06-12-2022 13:30-0400 Systolic blood pressure 152 mm[Hg] Florencio Tesfaye MD Work Phone: [facility] 06-12-2022 13:00-0400 Body temperature 97.2 [degF] Florencio Tesfaye MD Work Phone: [facility] 06-03-2022 10:47-0400 Body weight 81.65 kg Robel Onofre DO Work Phone: [facility] 06-03-2022 10:47-0400 Diastolic blood pressure 66 mm[Hg] Robel Onofre DO Work Phone: [facility] 06-03-2022 10:47-0400 Heart rate 60 /min Robel Onofre DO Work Phone: [facility] 06-03-2022 10:47-0400 Respiratory rate 16 /min Robel Onofre DO Work Phone: [facility] 06-03-2022 10:47-0400 Systolic blood pressure 120 mm[Hg] Robel Onofre DO Work Phone: [facility] 05-31-2022 08:47-0400 Body height 170.2 cm Pacc 1 Work Phone: [facility] 05-31-2022 08:47-0400 Body temperature 97.7 [degF] Pacc 1 Work Phone: [facility] 05-31-2022 08:47-0400 Body weight 82.37 kg Pacc 1 Work Phone: [facility] 05-31-2022 08:47-0400 Diastolic blood pressure 58 mm[Hg] Pacc 1 Work Phone: [facility] 05-31-2022 08:47-0400 Heart rate 51 /min Pacc 1 Work Phone: [facility] 05-31-2022 08:47-0400 Respiratory rate 16 /min Pacc 1 Work Phone: [facility] 05-31-2022 08:47-0400 SaO2% (BldA) [Mass fraction] 96 % Pacc 1 Work Phone: [facility] 05-31-2022 08:47-0400 Systolic blood pressure 100 mm[Hg] Pacc 1 Work Phone: [facility] 05-21-2022 15:11-0400 Body temperature 97.59 [degF] Florencio Tesfaye MD Work Phone: [facility] 05-21-2022 15:11-0400 Body weight 82.01 kg Florencio Tesfaye MD Work Phone: [facility] 05-21-2022 15:11-0400 Diastolic blood pressure 63 mm[Hg] Florencio Tesfaye MD Work Phone: [facility] 05-21-2022 15:11-0400 Heart rate 59 /min Florencio Tesfaye MD Work Phone: [facility] 05-21-2022 15:11-0400 SaO2% (BldA) [Mass fraction] 96 % Florencio Tesfaye MD Work Phone: [facility] 05-21-2022 15:11-0400 Systolic blood pressure 133 mm[Hg] Florencio Tesfaye MD Work Phone: [facility] 01-11-2022 08:03-0400 Body height 170.2 cm Florencio Tesfaye MD Work Phone: [facility] 01-11-2022 08:03-0400 Body temperature 98.1 [degF] Florencio Tesfaye MD Work Phone: [facility] 01-11-2022 08:03-0400 Body weight 83.28 kg Florencio Tesfaye MD Work Phone: [facility] 01-11-2022 08:03-0400 Diastolic blood pressure 58 mm[Hg] Florencio Tesfaye MD Work Phone: [facility] 01-11-2022 08:03-0400 Heart rate 85 /min Florencio Tesfaye MD Work Phone: [facility] 01-11-2022 08:03-0400 SaO2% (BldA) [Mass fraction] 99 % Florencio Tesfaye MD Work Phone: [facility] 01-11-2022 08:03-0400 Systolic blood pressure 118 mm[Hg] Florencio Tesfaye MD Work Phone: [facility] 12-26-2021 14:59-0400 Body weight 85.73 kg Bessie Cristóbal DRILLER HAND.MACHINIST APPRENTICE Work Phone: [facility] 12-26-2021 14:59-0400 Diastolic blood pressure 76 mm[Hg] Bessie Cristóbal DRILLER HAND.MACHINIST APPRENTICE Work Phone: [facility] 12-26-2021 14:59-0400 Heart rate 56 /min Bessie Cristóbal DRILLER HAND.MACHINIST APPRENTICE Work Phone: [facility] 12-26-2021 14:59-0400 SaO2% (BldA) [Mass fraction] 97 % Bessie Cristóbal DRILLER HAND.MACHINIST APPRENTICE Work Phone: [facility] 12-26-2021 14:59-0400 Systolic blood pressure 120 mm[Hg] Bessie Cristóbal DRILLER HAND.MACHINIST APPRENTICE Work Phone: [facility] 12-12-2021 10:04-0400 Body temperature 96.8 [degF] Robel Onofre DO Work Phone: [facility] 12-12-2021 10:04-0400 Body weight 83.92 kg Robel Onofre DO Work Phone: [facility] 12-12-2021 10:04-0400 Diastolic blood pressure 70 mm[Hg] Robel Onofre DO Work Phone: [facility] 12-12-2021 10:04-0400 Heart rate 56 /min Robel Onofre DO Work Phone: [facility] 12-12-2021 10:04-0400 Respiratory rate 16 /min Robel Onofre DO Work Phone: [facility] 12-12-2021 10:04-0400 Systolic blood pressure 100 mm[Hg] Robel Onofre DO Work Phone: [facility] 10-15-2021 08:32-0500 Body height 170.[address] Robel Onofre Work Phone: [facility] Work Phone: 10-15-2021 08:32-0500 Body mass index (BMI) [Ratio] 29.1 kg/m2 Dr. Robel Onofre Work Phone: [facility] Work Phone: 10-15-2021 08:32-0500 Body weight 84.[address] Robel Onofre Work Phone: [facility] Work Phone: 10-15-2021 08:32-0500 Diastolic blood pressure 70 mm[Hg] Dr. Robel Onofre Work Phone: [facility] Work Phone: 10-15-2021 08:32-0500 Heart rate 54 /min Dr. Robel Onofre Work Phone: [facility] Work Phone: 10-15-2021 08:32-0500 Respiratory rate 20 /min Dr. Robel Onofre Work Phone: [facility] Work Phone: 10-15-2021 08:32-0500 SaO2% (BldA) [Mass fraction] 96 % Dr. Robel Onofre Work Phone: [facility] Work Phone: 10-15-2021 08:32-0500 Systolic blood pressure 122 mm[Hg] Dr. Robel Onofre Work Phone: [facility] Work Phone: 02-03-2017 08:40-0400 BMI (Body Mass Index) 28.03 kg/m2 [facility] Work Phone: 02-03-2017 08:40-0400 BP Diastolic 68 mm[Hg] [facility] Work Phone: 02-03-2017 08:40-0400 BP Systolic 118 mm[Hg] [facility] Work Phone: 02-03-2017 08:40-0400 Height 170.18 cm [facility] Work Phone: 02-03-2017 08:40-0400 Pulse (Heart Rate) 58 /min [facility] Work Phone: 02-03-2017 08:40-0400 Respiratory Rate 18 /min [facility] Work Phone: 02-03-2017 08:40-0400 Weight 81.19 kg [facility] Work Phone: 07-30-2016 14:03-0500 BMI (Body Mass Index) 28.19 kg/m2 [facility] Work Phone: 07-30-2016 14:03-0500 BSA (Body Surface Area) 1.94 m2 [facility] Work Phone: 07-30-2016 14:03-0500 Height 170.18 cm [facility] Work Phone: 07-30-2016 14:03-0500 Pulse (Heart Rate) 62 /min [facility] Work Phone: 07-30-2016 14:03-0500 Respiratory Rate 18 /min [facility] Work Phone: 07-30-2016 14:03-0500 Weight 81.65 kg [facility] Work Phone: 01-02-2016 10:45-0400 BP Diastolic 78 mm[Hg] Dede Araiza RN [facility] Work Phone: 01-02-2016 10:45-0400 BP Systolic 150 mm[Hg] [facility] Work Phone: 05-24-2013 10:32-0400 Heart rate 57 /min [facility] Work Phone: 05-24-2013 10:32-0400 Heart rate 442 ms [facility] Work Phone: NEGATED: Highlighted [id number] 11:20-0400 BMI (Body Mass Index) 27.35 kg/m2 [facility] Work Phone: NEGATED: Highlighted [id number] 11:20-0400 BP Diastolic 77 mm[Hg] [facility] Work Phone: NEGATED: Highlighted [id number] 11:20-0400 BP Systolic 127 mm[Hg] [facility] Work Phone: NEGATED: Highlighted [id number] 11:20-0400 Height 170.18 cm [facility] Work Phone: NEGATED: Highlighted [id number] 11:20-0400 Height 170 cm [facility] Work Phone: NEGATED: Highlighted [id number] 11:20-0400 Pulse (Heart Rate) 57 /min [facility] Work Phone: NEGATED: Highlighted [id number] 11:20-0400 Weight 78.93 kg [facility] Work Phone: NEGATED: Poonam [id number] 11:0 Weight 79 kg [facility] Work Phone: Encounters Encounter Date Encounter Type Care Provider Facility Start: 07-01-2025 ambulatory Robel Onofre Facilit y:[facility] Start: 06-27-2025 End: 06-27-2025 ambulatory ROBEL ONOFRE Facility:[facility] Start: 06-24-2025 End: 06-24-2025 ambulatory ROBEL ONOFRE Facility:[facility] Start: 06-24-2025 End: 06-24-2025 ambulatory ROBEL ONOFRE Facility:[facility] Start: 03-22-2025 End: 03-22-[address] Jamal Dawson MD -[facility] Work Phone: Start: 03-22-2025 End: 03-22-[address] Robel Onofre DO Work Phone: -[facility] Start: 03-17-2025 End: 03-17-2025 Refill Robel Onofre DO Work Phone: [facility] [place] Comment on above: Refill Request Start: 02-10-2025 End: 02-11-2025 Refill Cat Foote APRN.MACHINIST APPRENTICE Work Phone: [facility] [place] Comment on above: Refill Request Start: 01-18-2025 End: 01-18-2025 ambulatory Citlaly Payton MA [employer] Start: 01-18-2025 End: 01-18-2025 Patient encounter procedure Citlaly Payton MA [facility] Comment on above: Population Health Na vigation Outreach ([place]/Workbench/ACO ) Start: 12-27-2024 End: 12-27-2024 Patient encounter procedure Robel Onofre DO Work Phone: [facility] [place] Comment on above: Gastroesophageal ref 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 hemorrhage (Primary Dx); Vitamin D deficiency; Other depression; Vitamin B12 deficiency; Thrombocytopenia; Familial hypercholesterolemia; Macular degeneration of both eyes, unspecified type; BPH associated with nocturia; Actinic keratosis; BPPV (benign paroxysmal positional vertigo), unspecified laterality Start: 12-27-2024 End: 12-27-2024 ambulatory ROBEL ONOFRE Facility:[facility] Start: 12-20-2024 End: 12-21-2024 Telephone encounter Robel Onofre DO Work Phone: [facility] [place] Comment on above: Patient Question Start: 12-14-2024 End: 12-14-2024 Telephone encounter Robel Onofre DO Work Phone: [facility] [place] Comment on above: Vertigo Start: 12-14-2024 End: 12-14-2024 Emergency department patient visit Dr. Robel Onofre DO Work Phone: -Emergency Department Work Phone: Start: 12-14-2024 End: 12-14-2024 Office outpatient visit 25 minutes Asha Hernandez APRN.MACHINIST APPRENTICE Work Phone: [facility] [place] Comment on above: Vertigo (Primary Dx) ; Nausea and vomiting, unspecified vomiting type; Gait disturbance Start: 12-14-2024 End: 12-14-2024 ambulatory ASHA HERNANDEZ Facility:[facility] Start: 12-09-2024 End: 12-09-2024 Refill Robel Hernandezon DO Work Phone: [address] [place] [address] Comment on above: Refill Request Start: 11-22-2024 End: 11-24-2024 Refill Robel Tobinrison DO Work Phone: [facility] [place] Comment on above: Refill Request Start: 11-08-2024 End: 11-08-2024 Refill Robel Bowman Onofre DO Work Phone: [address] [place] [address] Comment on above: Refill Request Start: 10-08-2024 End: 10-12-2024 Refill Robel Tobinrison DO Work Phone: [facility] [place] Comment on above: Refill Request Letter (Blindness co nfirmation for taxes) Start: 08-30-2024 End: 11-30-2024 Telephone encounter Robel Onofre DO Work Phone: [facility] Start: 08-11-2024 End: 08-11-2024 Refill Robel Onofre DO Work Phone: [facility] [place] Comment on above: Refill Request Start: 07-01-2024 End: 07-01-2024 Telephone encounter Robel Onofre DO Work Phone: [facility] [place] Start: 06-30-2024 End: 06-30-2024 ambulatory ROBEL ONOFRE Facility:[facility] Start: 06-30-2024 End: 06-30-2024 Patient encounter procedure Robel Onofre DO Work Phone: [facility] Comment on above: Hypertension, essent ial (Primary Dx); Need for influenza vaccination; Vitamin D deficiency; Vitamin B12 deficiency; Thrombocytopenia (HCC); Macular degeneration of both eyes, unspecified type; Familial hypercholesterolemia; BPH associated with nocturia; Borderline abnormal thyroid function test; Hyperglycemia; Other depression Start: 06-30-2024 End: 06-30-2024 ambulatory ROBEL ONOFRE Facility:[facility] Start: 05-04-2024 End: 05-04-2024 Refill Robel Onofre DO Work Phone: [facility] Comment on above: Refill Request Start: 03-10-2024 End: 03-10-2024 Office outpatient visit 15 minutes Bessie Ambrocio APRN.MACHINIST APPRENTICE Work Phone: [facility] [place] Comment on above: Feelings of worthles sness (Primary Dx); Stress; Lack of motivation; Other depression Start: 02-04-2024 End: 02-04-2024 Patient encounter procedure Bessie Ambrocio APRN.CNP Work Phone: [facility] [place] Comment on above: Feelings of worthles sness (Primary Dx); Stress; Lack of motivation; Other depression; Macular degeneration of both eyes, unspecified type; Bilateral hearing loss, unspecified hearing loss type Start: 01-26-2024 Telephone encounter Robel villanueva DO Work Phone: [facility] [place] Comment on above: Depression Start: 01-16-2024 Telephone encounter Robel villanueva DO Work Phone: [facility] [place] Comment on above: Results Start: 01-01-2024 Telephone encounter Robel villanueva DO Work Phone: [facility] [place] Start: 12-22-2023 End: 12-22-2023 Patient encounter procedure Robel Onofre DO Work Phone: [facility] [place] Comment on above: Hypertension, essent ial (Primary Dx); Vitamin D deficiency; Vitamin B12 deficiency; Other eczema; Bilateral exudative age-related macular degeneration, unspecified stage (HCC); Familial hypercholesterolemia; BPH associated with nocturia; Iron deficiency anemia, unspecified iron deficiency anemia type; Borderline abnormal thyroid function test; Abdominal aortic aneurysm (AAA) without rupture, unspecified part (HCC); Thrombocytopenia (HCC); Actinic keratosis Start: 11-25-2023 Refill Robel terrazas DO Work Phone: [facility] [place] Comment on above: Refill Request Start: 11-24-2023 Refill Robel terrazas DO Work Phone: [facility] [place] Comment on above: Refill Request; erro r Start: 11-12-2023 Refill Robel terrazas DO Work Phone: [facility] [place] Comment on above: Refill Request Start: 10-14-2023 Refill Robel terrazas DO Work Phone: [facility] [place] Comment on above: Refill Request Start: 07-31-2023 Refill Robel terrazas DO Work Phone: [facility] [place] Comment on above: Refill Request Start: 07-25-2023 Refill Robel terrazas DO Work Phone: [facility] [place] Comment on above: Refill Request Orders Start: 06-13-2023 End: 06-13-2023 Patient encounter procedure Robel Onorfe DO Work Phone: [facility] [place] Comment on above: Hypertension, essent ial (Primary Dx); Need for influenza vaccination; Bilateral exudative age-related macular degeneration, unspecified stage (HCC); Abdominal aortic aneurysm (AAA) without rupture, unspecified part (HCC); Thrombocytopenia (HCC); Vitamin D deficiency; Vitamin B12 deficiency; Familial hypercholesterolemia; BPH associated with nocturia; Iron deficiency anemia, unspecified iron deficiency anemia type; Coronary artery disease due to lipid rich plaque; Hyperglycemia; Screening for prostate cancer Start: 03-31-2023 Refill Robel terrazas DO Work Phone: [facility] Comment on above: Refill Request Start: 02-12-2023 Refill Robel terrazas DO Work Phone: [address] [place] [address] Comment on above: Refill Request Start: 01-30-2023 Telephone encounter Robel Gracie villanueva DO Work Phone: [facility] Comment on above: Handicap Placard Start: 12-23-2022 Telephone encounter Robel Bowman Jess villanueva DO Work Phone: [facility] Comment on above: Results Start: 12-06-2022 End: 12-06-2022 Patient encounter procedure Robel Onofre DO Work Phone: [facility] Comment on above: Vitamin D deficiency (Primary Dx); Vitamin B12 deficiency; Hypertension, essential; Familial hypercholesterolemia; BPH associated with nocturia; Screening for prostate cancer; Iron deficiency anemia, unspecified iron deficiency anemia type Start: 11-18-2022 Refill Bessie kenney APRN.MACHINIST APPRENTICE Work Phone: [facility] Comment on above: Refill Request Start: 10-17-2022 Refill Robel terrazas DO Work Phone: [facility] Comment on above: Refill Request Start: 10-07-2022 Refill Robel terrazas DO Work Phone: [facility] Comment on above: Refill Request Start: 09-10-2022 Refill Robel terrazas DO Work Phone: [facility] Comment on above: Refill Request Start: 07-24-2022 Refill Robel terrazas DO Work Phone: [facility] Comment on above: Refill Request Start: 07-04-2022 Telephone encounter Bessie Camargo DRILLER HAND.MACHINIST APPRENTICE Work Phone: [facility] Comment on above: Results Start: 07-03-2022 End: 07-03-2022 Patient encounter procedure Bessie Ambrocio DRILLER HAND.MACHINIST APPRENTICE Work Phone: [facility] Comment on above: Hypertension, essent ial (Primary Dx); Maegan-Feldman tear Start: 06-26-2022 Telephone encounter Robel villanueva DO Work Phone: [facility] Comment on above: Patient Update Start: 06-21-2022 Telephone encounter Robel villanueva DO Work Phone: [facility] Comment on above: Patient Update Start: 06-17-2022 ambulatory Robel terrazas DO Work Phone: [facility] Start: 06-17-2022 Telephone encounter Robel villanueva DO Work Phone: [facility] Comment on above: Orders Start: 06-14-2022 Non-patient / Non-visit Dr. Roxana Onofre Work Phone: [facility] Start: 06-14-2022 Non-patient / Non-visit Dr. Roxana Onofre Work Phone: [facility] Start: 06-13-2022 End: 06-15-2022 Evaluation and management of inpatient Dr. Robel Onofre Work Phone: [facility] 3 Start: 06-13-[address] Abram Onofre Work Phone: [facility] Work Phone: Start: 06-13-2022 Non-patient / Non-visit Dr. Roxana Onofre Work Phone: [facility] Start: 06-13-2022 Telephone encounter Florencio cummings MD Work Phone: General Surgery Comment on above: Patient Update Start: 06-12-2022 ambulatory FLORENCIO TESFAYE Facili ty:[facility] Start: 06-12-2022 End: 06-12-2022 Subsequent hospital visit by physician Florencio Tesfaye MD Work Phone: [facility] Surgery Comment on above: Right inguinal herni a [K40.90] Start: 06-07-2022 Telephone encounter Luiza Rivers APRN.CNP Work Phone: Pre Anesthesia Comment on above: Patient Update Start: 06-03-2022 End: 06-03-2022 Patient encounter procedure Robel Onofre Work Phone: [facility] Comment on above: Hypertension, essent ial (Primary Dx); Encounter for immunization; Vitamin D deficiency; Vitamin B12 deficiency; Elevated serum creatinine; Fatigue, unspecified type; Familial hypercholesterolemia; BPH associated with nocturia; Coronary artery disease due to lipid rich plaque; Bilateral exudative age-related macular degeneration, unspecified stage (HCC); Screening for prostate cancer; Thrombocytopenia (HCC); Non-recurrent bilateral inguinal hernia without obstruction or gangrene Start: 05-31-2022 End: 05-31-2022 [facility] [place] Start: 05-31-2022 End: 05-31-2022 ambulatory [facility] Work Phone: Pre Anesthesia Comment on above: Pre-operative examin ation (Primary Dx); Coronary artery disease due to lipid rich plaque; Hypertension, essential; Abdominal aortic aneurysm (AAA), unspecified part, unspecified whether ruptured; Thrombocytopenia (HCC); Familial hypercholesterolemia; Acute renal insufficiency; BPH associated with nocturia; Gastroesophageal ref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 hemorrhage Start: 05-31-2022 End: 05-31-2022 Preprocedural examination done [facility] [place] [facility] Work Phone: Pre Anesthesia Start: 05-21-2022 End: 05-21-2022 Patient encounter procedure Florencio Tesfaye MD Work Phone: General Surgery Comment on above: Right inguinal herni a (Primary Dx) Start: 04-08-2022 Refill Robel Grimes son DO Work Phone: [facility] [place] Comment on above: Refill Request Start: 02-18-2022 Refill Robel Grimes son DO Work Phone: [facility] Comment on above: Refill Request Start: 02-01-2022 Telephone encounter Bessie Camargo DRILLER HAND.MACHINIST APPRENTICE Work Phone: [facility] Comment on above: Results Start: 01-31-2022 Telephone encounter Robel villanueva DO Work Phone: [facility] Comment on above: Patient Update; Appo intment Start: 01-11-2022 End: 01-11-2022 Patient encounter procedure Florencio Tesfaye MD Work Phone: General Surgery Comment on above: Bilateral inguinal h ernia without obstruction or gangrene, recurrence not specified Start: 01-02-2022 Telephone encounter Robel villanueva DO Work Phone: [place] [facility] Comment on above: Results; Appointment Start: 01-01-2022 End: 01-01-[address] Robel Onofre Work Phone: [facility] Start: 12-27-2021 Telephone encounter Bessie Camargo DRILLER HAND.MACHINIST APPRENTICE Work Phone: [facility] Comment on above: Faxed orders Change Of Order ([facility] radiology dept.) Start: 12-26-2021 End: 12-26-2021 Patient encounter procedure Bessie Cristóbal DRILLER HAND.MACHINIST APPRENTICE Work Phone: [facility] Comment on above: Right inguinal pain (Primary Dx); Inguinal bulge Start: 12-26-2021 Telephone encounter Robel villanueva DO Work Phone: [facility] [place] Comment on above: Right groin pain Start: 12-12-2021 End: 12-12-2021 Patient encounter procedure Robel Onofre DO Work Phone: [facility] Comment on above: Vitamin D deficiency (Primary Dx); BPH associated with nocturia; Fatigue, unspecified type; Familial hypercholesterolemia; Coronary artery disease due to lipid rich plaque; Hypertension, essential; Actinic keratosis Start: 10-15-2021 End: 10-15-[address] Robel Onofre Work Phone: [facility] Start: 06-20-2021 End: 06-20-2021 Subsequent hospital visit by physician Shailesh FLORENCE [facility] Comment on above: Presence of other va scular implants and grafts; Abdominal aortic aneurysm, without rupture (HCC); Encounter for surgical aftercare following surgery on the circulatory system; Hx of endovascular stent graft for abdominal aortic aneurysm; AAA (abdominal aortic aneurysm) without rupture (HCC); Aftercare following surgery of the circulatory system Start: 06-02-2020 End: 06-02-2020 Subsequent hospital visit by physician John Clark Work Phone: [facility] Comment on above: Abdominal aortic ane urysm without rupture (HCC); History of endovascular stent graft for abdominal aortic aneurysm (AAA) Start: 05-12-2018 End: 05-14-2018 Patient encounter procedure Mandeep Bernstein DO Work Phone: [facility] Work Phone: Procedures Date Procedure Procedure Detail Performing Clinician Start: 12-14-2024 CT angiography of head and neck Dr. Abram Onofre DO Work Phone: Start: 06-13-2023 INFLUENZA VACCINE, PRSV FREE, AGE 65+ YR, HIGH DOSE, QUADRIVALENT (FLUZONE HIGH-DOSE) Robel Onofre DO Work Phone: Start: 06-14-[address] Robel clemente Work Phone: Start: 06-13-2022 Plain chest X-ray Dr. Robel Onofre Work Phone: Start: 06-13-2022 Computed tomography of abdomen and pelvis with intravenous contrast Dr. Robel Onofre Work Phone: Start: 01-01-2022 Computed tomography of abdomen and pelvis with contrast Dr. Robel Onofre Work Phone: Start: 06-20-2021 Dup-scan aorta ivc iliac vascl/bpgs complete Shailesh FLORENCE Start: 06-02-2020 Dup-scan aorta ivc iliac vascl/bpgs complete BandarSharee Clark Work Phone: Start: 05-12-2018 End: 05-14-2018 Blood pressure within normal parameters - no follow-up required Scot D Bernstein DO Work Phone: Start: 05-12-2018 End: 05-14-2018 BMI documented as above normal parameters - follow-up documented Scot D Bernstein DO Work Phone: Start: 05-12-2018 End: 05-14-2018 Current medications documented Scot D Mi ller DO Work Phone: Start: 05-12-2018 End: 05-14-2018 Pain assessment documented as positive - follow-up documented Scot D Bernstein DO Work Phone: Start: 05-12-2018 End: 05-14-2018 Tobacco non-user Scot D Bernstein DO Work Phone: Start: 08-01-2017 End: 08-13-2017 *Hepatic Function Panel Florencio Ramires MD Work Phone: Start: 08-01-2017 End: 08-13-2017 Lipid panel [AGGREGATE] Florencio Ramires MD Work Phone: Start: 02-03-2017 End: 02-21-2017 Stress Echocardiogram - Dobutamine Prakash Ramires MD Work Phone: Start: 12-30-2016 End: 02-01-2017 *Hepatic Function Panel Florencio Ramires MD Work Phone: Start: 12-30-2016 End: 02-01-2017 Lipid panel [AGGREGATE] Florencio Ramires MD Work Phone: Start: 07-30-2016 End: 07-30-2016 DJN Florencio Ramires MD Work Phone: Start: 07-30-2016 End: 07-30-2016 Follow Up Appt 6 months Florencio Ramires MD Work Phone: Start: 07-01-2016 End: 07-01-2016 *Hepatic Function Panel Florencio Ramires MD Work Phone: Start: 07-01-2016 End: 07-01-2016 Lipid panel [AGGREGATE] Florencio Ramires MD Work Phone: Start: 01-02-2016 End: 01-02-2016 Dietary management education, guidance, and counseling Dede Araiza RN Start: 01-02-2016 End: 02-07-2016 MIRNA Florencio Ramires MD Work Phone: Start: 01-02-2016 End: 01-02-2016 KATTY Ramires MD Work Phone: Start: 01-02-2016 End: 01-02-2016 Follow Up Appt 6 months Florencio Ramires MD Work Phone: Start: 01-02-2016 End: 01-19-2016 Stress Echocardiogram - Dobutamine Prakash Ramires MD Work Phone: Start: 11-28-2015 End: 12-28-2015 *Hepatic Function Panel Florencio Ramires MD Work Phone: Start: 11-28-2015 End: 12-28-2015 Lipid panel [AGGREGATE] Florencio Ramires MD Work Phone: Start: 07-03-2015 End: 07-03-2015 KATTY Ramires MD Work Phone: Start: 07-03-2015 End: 07-04-2015 Documentation of current medications Florencio Ramires MD Work Phone: Start: 07-03-2015 End: 07-03-2015 Follow Up Appt 6 months Florencio Ramires MD Work Phone: Start: 07-03-2015 End: 07-03-2015 Follow Up BP Check Florencio Ramires MD Work Phone: Start: 07-03-2015 End: 07-04-2015 Smoking cessation education Florencio tolentino MD Work Phone: Start: 05-29-2015 End: 05-29-2015 *Hepatic Function Panel Florencio Ramires MD Work Phone: Start: 05-29-2015 End: 05-29-2015 Lipid panel [AGGREGATE] Florencio Ramires MD Work Phone: Start: 12-13-2014 End: 12-13-2014 *Hepatic Function Panel Florencio Ramires MD Work Phone: Start: 12-13-2014 End: 12-13-2014 Lipid panel [AGGREGATE] Florencio Ramires MD Work Phone: Start: 05-31-2014 End: 06-14-2014 *Hepatic Function Panel Florencio Ramires MD Work Phone: Start: 05-31-2014 End: 05-31-2014 SUHASN Florencio Ramires MD Work Phone: Start: 05-31-2014 End: 05-31-2014 Follow Up Appt 1 year Gildardo Arzate Work Phone: Start: 05-31-2014 End: 06-14-2014 Lipid panel [AGGREGATE] Florencio Ramires MD Work Phone: Start: 05-31-2014 End: 06-30-2014 Stress Echocardiogram - Dobutamine Prakash Ramires MD Work Phone: Start: 05-24-2013 End: 05-18-2014 DJN Florencio Ramires MD Work Phone: Start: 05-24-2013 End: 05-18-2014 Echocardiography Florencio Ramires MD Work Phone: Start: 05-24-2013 End: 05-18-2014 Stress Echocardiogram - Dobutamine Prakash Ramires MD Work Phone: Start: 05-19-2013 End: 05-31-2014 *Hepatic Function Panel Reinaldo Diaz MD Start: 05-19-2013 End: 05-31-2014 Lipid panel [AGGREGATE] Reinaldo Diaz MD Start: 11-25-2012 End: 04-14-2013 *Hepatic Function Panel Reinaldo Diaz MD Start: 11-25-2012 End: 04-14-2013 Lipid panel [AGGREGATE] Reinaldo Diaz MD Start: 11-11-2012 End: 11-11-2012 eRx Transmitted during this visit (Medicare only) Reinaldo Diaz MD Start: 11-11-2012 End: 11-11-2012 Follow Up Appt 6 months Reinaldo Diaz MD Start: 05-25-2012 End: 05-25-2012 Electrocardiogram, complete Reinaldo Diaz MD Start: 05-25-2012 End: 05-25-2012 eRx Transmitted during this visit (Medicare only) Reinaldo Diaz MD Start: 05-25-2012 End: 05-25-2012 Follow Up Appt 6 months Reinaldo Diaz MD Start: 05-07-2012 End: 05-07-2012 *Hepatic Function Panel Reinaldo Diaz MD Start: 05-07-2012 End: 05-07-2012 Lipid panel [AGGREGATE] Reinaldo Diaz MD Start: 11-11-2011 End: 11-21-2011 *Hepatic Function Panel Reinaldo Diaz MD Start: 11-11-2011 End: 11-11-2011 Follow Up Appt 6 months Reinaldo Diaz MD Start: 11-11-2011 End: 11-11-2011 Follow Up Appt Other Reinaldo Diaz MD Start: 11-11-2011 End: 11-21-2011 Lipid panel [AGGREGATE] Reinaldo Diaz MD Start: 09-22-1996 History of coronary artery bypass grafting S/P CABG x 3 Dr. Robel Onofre Work Phone: Comment on above: 09/22/1996: HANCOCK to LAD-Diagonal (sequent ial) arteries and SVG to the OM and RCA History of repair of inguinal hernia Status post bilateral inguinal hernia repair Dr. Robel Onofre Work Phone: Measurement of occul t blood in gastric fluid specimen Dr. Robel Onofre Work Phone: Plan of Treatment Date Care Activity Detail Author Start: 06-30-2027 Diabetes Screening Diabetes Screening [facility] Start: 01-13-2027 Diabetes Screening Diabetes Screening [facility] Start: 12-21-2026 Diabetes Screening Diabetes Screening [facility] Start: 12-06-2025 DIABETES SCREEN DIABETES SCREEN [facility] Start: 12-06-2025 Diabetes Screening Diabetes Screening [facility] Start: 07-03-2025 DIABETES SCREEN DIABETES SCREEN [facility] Start: 06-30-2025 Hepatitis B surface antibody level LDL Cholesterol [facility] Start: 06-24-2025 End: 06-24-2025 Patient encounter procedure 06/24/2025 10:00 AM EDT Office Visit [facility] [place] [address], [place] [id number] Robel Onofre DO [address] [place], [place] [id number] Medicare Wellness [facility] [place] Comment on above: Medicare Wellness Start: 05-31-2025 DIABETES SCREEN DIABETES SCREEN [facility] Start: 04-25-2025 Influenza vaccination Influenza Vaccine (#1) [facility] Start: 01-31-2025 DIABETES SCREEN DIABETES SCREEN [facility] Start: 01-13-2025 Hepatitis B surface antibody level LDL Cholesterol [facility] Start: 12-27-2024 End: 12-27-2024 Patient encounter procedure 12/27/2024 10:40 AM EDT Office Visit [facility] [place] [address], [place] [id number] Robel Onofre DO [address] [facility] [place] [address] follow up [facility] [place] Comment on above: follow up Start: 12-14-2024 [facility] Start: 08-25-2024 Advance Directive Discussion Advance Directive Discussion [facility] Start: 08-25-2024 Medicare Advantage Annual Wellness Visit Medicare Advantage Annual Wellness Visit [facility] Start: 06-30-2024 End: 09-29-2024 25-hydroxyvitamin D3 [Mass/volume] in Serum or Plasma [facility] Comment on above: Expected: 06/30/2024, Expires: Start: 06-30-2024 End: 09-29-2024 CBC W Auto Differential panel - Blood [facility] Comment on above: Expected: 06/30/2024, Expires: Start: 06-30-2024 End: 09-29-2024 Cobalamin (Vitamin B12) [Mass/volume] in Serum or Plasma [facility] Comment on above: Expected: 06/30/2024, Expires: Start: 06-30-2024 End: 09-29-2024 Comprehensive metabolic 2000 panel - Serum or Plasma [facility] Work Phone: Comment on above: Expected: 06/30/2024, Expires: Start: 06-30-2024 End: 09-29-2024 Hemoglobin A1c in Blood [facility] Comment on above: Expected: 06/30/2024, Expires: Start: 06-30-2024 End: 09-29-2024 LIPID PANEL, NONFASTING [facility] Comment on above: Expected: 06/30/2024, Expires: Start: 06-30-2024 End: 09-29-2024 Magnesium [Mass/volume] in Serum or Plasma [facility] Comment on above: Expected: 06/30/2024, Expires: Start: 06-30-2024 End: 09-29-2024 Thyrotropin [Units/volume] in Serum or Plasma [facility] Comment on above: Expected: 06/30/2024, Expires: Start: 06-30-2024 End: 09-29-2024 Urinalysis complete panel - Urine [facility] Comment on above: Expected: 06/30/2024, Expires: Start: 06-30-2024 End: 06-30-2024 Patient encounter procedure 06/30/2024 10:40 AM EST Office Visit [facility] [place] [address] [facility] [address] Robel Onofre DO [address] [facility] [place] [address] 6 month follow up [facility] [place] Comment on above: 6 month follow up Start: 05-29-2024 DIABETES SCREEN DIABETES SCREEN [facility] Start: 04-25-2024 Covid-19 Vaccine ( season) Covid-19 Vaccine () [facility] Start: 04-25-2024 Covid-19 Vaccine ( season) Covid-19 Vaccine ( season) [facility] Start: 04-25-2024 Influenza vaccination Influenza Vaccine (#1) [facility] Start: 03-10-2024 End: 03-10-2024 Patient encounter procedure 03/10/2024 12:20 PM EDT Office Visit [facility] [place] [address] [facility] [address] Bessie Ambrocio, DRILLER HAND.MACHINIST APPRENTICE [address] [facility] [place] [address] 4-6 weeks follow up [facility] [place] Comment on above: 4-6 weeks follow up Start: 02-04-2024 End: 02-04-2024 Patient encounter procedure 02/04/2024 12:40 PM EDT Office Visit [facility] [place] [address] [facility] [address] Bessie Ambrocio, DRILLER HAND.MACHINIST APPRENTICE [address] [facility] [place], [place] [id number] depression [facility] Comment on above: depression Start: 01-01-2024 End: 04-01-2024 ALK PHOS ISOENZYM BL ALK PHOS ISOENZYM BL Lab Routine Elevated alkaline phosphatase level Expected: 01/01/2024, Expires: 04/01/2024 [facility] Comment on above: Expected: 01/01/2024, Expires: Start: 01-01-2024 End: 04-01-2024 CBC W Auto Differential panel - Blood COMPLETE BLOOD COUNT AND DIFFERENTIAL Lab Routine Thrombocytopenia (HCC) Expected: 01/01/2024, Expires: 04/01/[address] [facility] Work Phone: Comment on above: Expected: 01/01/2024, Expires: Start: 01-01-2024 End: 04-01-2024 Comprehensive metabolic 2000 panel - Serum or Plasma COMPREHENSIVE METABOLIC PANEL Lab Routine Elevated serum creatinine Expected: 01/01/2024, Expires: 04/01/2024 [facility] Comment on above: Expected: 01/01/2024, Expires: Start: 12-22-2023 End: 03-22-2024 Cobalamin (Vitamin B12) [Mass/volume] in Serum or Plasma [facility] Comment on above: Expected: 12/22/2023, Expires: Start: 12-22-2023 End: 03-22-2024 Comprehensive metabolic 2000 panel - Serum or Plasma [facility] Work Phone: Comment on above: Expected: 12/22/2023, Expires: Start: 12-22-2023 End: 03-22-2024 Iron and Iron binding capacity panel - Serum or Plasma IRON AND TIBC Lab Routine Iron deficiency anemia, unspecified iron deficiency anemia type Expected: 12/22/2023, Expires: 03/22/2024 [facility] Comment on above: Expected: 12/22/2023, Expires: Start: 12-22-2023 End: 03-22-2024 LIPID PANEL, NONFASTING LIPID PANEL, NONFASTING Lab Routine Familial hypercholesterolemia Expected: 12/22/2023, Expires: 03/22/2024 [facility] Comment on above: Expected: 12/22/2023, Expires: Start: 12-22-2023 End: 03-22-2024 Thyrotropin [Units/volume] in Serum or Plasma [facility] Comment on above: Expected: 12/22/2023, Expires: Start: 12-22-2023 End: 03-22-2024 Thyroxine (T4) free [Mass/volume] in Serum or Plasma [facility] Comment on above: Expected: 12/22/2023, Expires: Start: 12-14-2023 End: 03-14-2024 25-hydroxyvitamin D3 [Mass/volume] in Serum or Plasma VITAMIN D 25 HYDROXY Lab Routine Vitamin D deficiency Expected: 12/14/2023, Expires: 03/14/[address] [facility] Work Phone: Comment on above: Expected: 12/14/2023, Expires: Start: 12-14-2023 End: 03-14-2024 CBC panel - Blood by Automated count CBC Lab Routine Familial hypercholesterolemia Iron deficiency anemia, unspecified iron deficiency anemia type Expected: 12/14/2023, Expires: 03/14/[address] [facility] Work Phone: Comment on above: Expected: 12/14/2023, Expires: Start: 12-14-2023 End: 03-14-2024 Cobalamin (Vitamin B12) [Mass/volume] in Serum or Plasma VITAMIN B12 BLOOD Lab Routine Vitamin B12 deficiency Expected: 12/14/2023, Expires: 03/14/[address] [facility] Work Phone: Comment on above: Expected: 12/14/2023, Expires: Start: 12-14-2023 End: 03-14-2024 Comprehensive metabolic 2000 panel - Serum or Plasma COMP METABOLIC PANEL Lab Routine Familial hypercholesterolemia Expected: 12/14/2023, Expires: 03/14/[address] [facility] Work Phone: Comment on above: Expected: 12/14/2023, Expires: Start: 12-14-2023 End: 03-14-2024 Ferritin [Mass/volume] in Serum or Plasma FERRITIN BLD Lab Routine Iron deficiency anemia, unspecified iron deficiency anemia type Expected: 12/14/2023, Expires: 03/14/[address] [facility] Work Phone: Comment on above: Expected: 12/14/2023, Expires: Start: 12-14-2023 End: 03-14-2024 Hemoglobin A1c in Blood HGB A1C Lab Routine Hyperglycemia Expected: 12/14/2023, Expires: 03/14/[address] [facility] Work Phone: Comment on above: Expected: 12/14/2023, Expires: Start: 12-14-2023 End: 03-14-2024 Iron and Iron binding capacity panel - Serum or Plasma IRON + TIBC Lab Routine Iron deficiency anemia, unspecified iron deficiency anemia type Expected: 12/14/2023, Expires: 03/14/[address] [facility] Work Phone: Comment on above: Expected: 12/14/2023, Expires: 4 Start: 12-14-2023 End: 03-14-2024 Lipid 1996 panel - Serum or Plasma LIPID PANEL BASIC Lab Routine Familial hypercholesterolemia Expected: 12/14/2023, Expires: 03/14/[address] [facility] Work Phone: Comment on above: Expected: 12/14/2023, Expires: 4 Start: 12-14-2023 End: 03-14-2024 PSA/PROSTSPECAG SCRN PSA/PROSTSPECAG SCRN Lab Routine BPH associated with nocturia Screening for prostate cancer Expected: 12/14/2023, Expires: 03/14/[address] [facility] Work Phone: Comment on above: Expected: 12/14/2023, Expires: 4 Start: 08-25-2023 Advance Directive Discussion Advance Directive Discussion [facility] Start: 04-25-2023 Covid-19 Vaccine () Covid-19 Vaccine () [facility] Start: 04-25-2023 Influenza vaccination [facility] Start: 12-03-2022 End: 02-02-2023 25-hydroxyvitamin D3 [Mass/volume] in Serum or Plasma VITAMIN D 25 HYDROXY Lab Routine Vitamin D deficiency Expected: 12/03/2022, Expires: 02/02/[address] [facility] Work Phone: Comment on above: Expected: 12/03/2022, Expires: 3 Start: 12-03-2022 End: 02-02-2023 CBC panel - Blood by Automated count CBC Lab Routine Familial hypercholesterolemia Expected: 12/03/2022, Expires: 02/02/[address] [facility] Work Phone: Comment on above: Expected: 12/03/2022, Expires: 3 Start: 12-03-2022 End: 02-02-2023 Cobalamin (Vitamin B12) [Mass/volume] in Serum or Plasma VITAMIN B12 BLOOD Lab Routine Vitamin B12 deficiency Expected: 12/03/2022, Expires: 02/02/[address] [facility] Work Phone: Comment on above: Expected: 12/03/2022, Expires: 3 Start: 12-03-2022 End: 02-02-2023 Comprehensive metabolic 2000 panel - Serum or Plasma COMP METABOLIC PANEL Lab Routine Familial hypercholesterolemia Expected: 12/03/2022, Expires: 02/02/[address] [facility] Work Phone: Comment on above: Expected: 12/03/2022, Expires: 3 Start: 12-03-2022 End: 02-02-2023 Lipid 1996 panel - Serum or Plasma LIPID PANEL BASIC Lab Routine Familial hypercholesterolemia Expected: 12/03/2022, Expires: 02/02/[address] [facility] Work Phone: Comment on above: Expected: 12/03/2022, Expires: 3 Start: 12-03-2022 End: 02-02-2023 PSA/PROSTSPECAG SCRN PSA/PROSTSPECAG SCRN Lab Routine BPH associated with nocturia Screening for prostate cancer Expected: 12/03/2022, Expires: 02/02/[address] [facility] Work Phone: Comment on above: Expected: 12/03/2022, Expires: 3 Start: 12-03-2022 End: 02-02-2023 Thyrotropin [Units/volume] in Serum or Plasma TSH BLD Lab Routine Elevated serum creatinine Fatigue, unspecified type Familial hypercholesterolemia BPH associated with nocturia Expected: 12/03/2022, Expires: 02/02/[address] [facility] Work Phone: Comment on above: Expected: 12/03/2022, Expires: 3 Start: 08-25-2022 ADVANCE DIRECTIVE DISCUSSION ADVANCE DIRECTIVE DISCUSSION [facility] Start: 06-15-2022 Patient discharge [facility] Work Phone: Start: 06-14-2022 Catheterization of vein [facility] Work Phone: Start: 06-13-2022 Application of intermittent pneumatic compression device [facility] Work Phone: Start: 06-13-2022 Ambulation without limitation [facility] Work Phone: Start: 06-13-2022 Assessment of risk of venous thromboembolism [facility] Work Phone: Start: 06-13-2022 Documentation procedure [facility] Work Phone: Start: 06-13-2022 Incentive spirometry [facility] Work Phone: Start: 06-13-2022 Insertion of catheter into peripheral vein [facility] Work Phone: Start: 06-13-2022 Measuring intake and output [facility] Work Phone: Start: 06-13-2022 Oxygen therapy [facility] Work Phone: Start: 06-13-2022 Providing care according to standard [facility] Work Phone: Start: 06-13-2022 Referral to gastroenterology service [facility] Work Phone: Start: 06-13-2022 Referral to occupational therapist [facility] Work Phone: Start: 06-13-2022 Referral to service [facility] Work Phone: Start: 06-13-2022 [facility] Work Phone: Start: 06-13-2022 Following clinical pathway protocol [facility] Work Phone: Start: 06-13-2022 Admission procedure [facility] Work Phone: Start: 05-29-2022 Hepatitis B surface antibody level LDL CHOLESTEROL [facility] Start: 04-25-2022 Influenza vaccination INFLUENZA (#1) [facility] Start: 02-15-2022 End: 04-17-2022 Renal function 2000 panel - Serum or Plasma RENAL FUNCTION PANEL Lab Routine Elevated serum creatinine Expected: 02/15/2022, Expires: 04/17/[address] [facility] Work Phone: Comment on above: Expected: 02/15/2022, Expires: 2 Start: 12-27-2021 End: 02-26-2022 CREATININE BLD CREATININE BLD Lab Routine Right groin pain Expected: 12/27/2021, Expires: 02/26/[address] [facility] Work Phone: Comment on above: Expected: 12/27/2021, Expires: 2 Start: 08-25-2021 ADVANCE DIRECTIVE DISCUSSION ADVANCE DIRECTIVE DISCUSSION [facility] Start: 06-06-2021 PNEUMOCOCCAL: 65+ (2 - PCV) PNEUMOCOCCAL: 65+ (2 - PCV) [facility] Start: 05-09-2021 COVID-19 Vaccine (3 - Pfizer booster) COVID-19 Vaccine (3 - Pfizer booster) [facility] Work Phone: Start: 03-08-2021 COVID-19 VACCINE (4 - Booster for Pfizer series) COVID-19 VACCINE (4 - Booster for Pfizer series) [facility] Start: 01-01-2021 COVID-19 VACCINE (4 - Booster for Pfizer series) COVID-19 VACCINE (4 - Booster for Pfizer series) [facility] Start: 01-01-2021 COVID-19 VACCINE (5 - Booster) COVID-19 VACCINE (5 - Booster) [facility] Start: 01-01-2021 COVID-19 VACCINE (6 - Booster) COVID-19 VACCINE (6 - Booster) [facility] Start: 01-01-2021 COVID-19 VACCINE (6 - Pfizer series) COVID-19 VACCINE (6 - Pfizer series) [facility] Start: 04-25-2020 Influenza vaccination Flu vaccine (#1) [place], [place] Start: 02-14-2019 Annual Wellness Visit (AWV) Annual Wellness Visit (AWV) [place], [place] Start: 05-12-2018 End: 05-12-2018 Radex spine lumbosacral minimum 4 views XR LUMBAR 4VWS FLEX/EX [facility] Work Phone: Start: 08-12-2017 End: 08-12-2017 Appointment Appointment [facility] Work Phone: Start: 08-01-2017 End: 08-13-2017 *Hepatic Function Panel *Hepatic Function Panel [facility] Work Phone: Start: 08-01-2017 End: 08-13-2017 Lipid panel [AGGREGATE] *Lipid Profile CC [facility] Work Phone: Start: 02-03-2017 End: 02-03-2017 Appointment Appointment [facility] Work Phone: Start: 02-03-2017 End: 02-03-2017 DJN DJN [facility] Work Phone: Start: 02-03-2017 End: 02-03-2017 Follow Up Appt 6 months Follow Up Appt 6 months [facility] Work Phone: Start: 02-03-2017 End: 02-03-2017 Stress Echocardiogram - Dobutamine Stress Echocardiogram - Dobutamine [facility] Work Phone: Start: 12-30-2016 End: 02-01-2017 *Hepatic Function Panel *Hepatic Function Panel [facility] Work Phone: Start: 12-30-2016 End: 02-01-2017 Lipid panel [AGGREGATE] *Lipid Profile CC PCP [facility] Work Phone: Start: 07-30-2016 End: 07-30-2016 DJN DJN [facility] Work Phone: Start: 07-30-2016 End: 07-30-2016 Follow Up Appt 6 months Follow Up Appt 6 months [facility] Work Phone: Start: 07-01-2016 End: 07-01-2016 *Hepatic Function Panel *Hepatic Function Panel [facility] Work Phone: Start: 07-01-2016 End: 07-01-2016 Lipid panel [AGGREGATE] *Lipid Profile CC PCP [facility] Work Phone: Start: 01-02-2016 End: 01-02-2016 MIRNA MIRNA [facility] Work Phone: Start: 01-02-2016 End: 01-02-2016 DJN DJN [facility] Work Phone: Start: 01-02-2016 End: 01-02-2016 Follow Up Appt 6 months Follow Up Appt 6 months [facility] Work Phone: Start: 01-02-2016 End: 01-02-2016 Stress Echocardiogram - Dobutamine Stress Echocardiogram - Dobutamine [facility] Work Phone: Start: 11-28-2015 End: 12-28-2015 *Hepatic Function Panel *Hepatic Function Panel [facility] Work Phone: Start: 11-28-2015 End: 12-28-2015 Lipid panel [AGGREGATE] *Lipid Profile CC PCP [facility] Work Phone: Start: 07-03-2015 End: 07-03-2015 DJN DJN [facility] Work Phone: Start: 07-03-2015 End: 07-03-2015 Follow Up Appt 6 months Follow Up Appt 6 months [facility] Work Phone: Start: 07-03-2015 End: 07-03-2015 Follow Up BP Check Follow Up BP Check [facility] Work Phone: Start: 05-29-2015 End: 05-29-2015 *Hepatic Function Panel *Hepatic Function Panel [email or web address] Work Phone: Start: 05-29-2015 End: 05-29-2015 Lipid panel [AGGREGATE] *Lipid Profile CC PCP [facility] Work Phone: Start: 12-13-2014 End: 12-13-2014 *Hepatic Function Panel *Hepatic Function Panel [email or web address] Work Phone: Start: 12-13-2014 End: 12-13-2014 Lipid panel [AGGREGATE] *Lipid Profile CC PCP [facility] Work Phone: Start: 05-31-2014 End: 06-14-2014 *Hepatic Function Panel *Hepatic Function Panel [email or web address] Work Phone: Start: 05-31-2014 End: 05-31-2014 KATTY LAANIZ [employer] Work Phone: Start: 05-31-2014 End: 05-31-2014 Follow Up Appt 1 year Follow Up Appt 1 year [employer] Work Phone: Start: 05-31-2014 End: 06-14-2014 Lipid panel [AGGREGATE] *Lipid Profile CC PCP [facility] Work Phone: Start: 05-31-2014 End: 06-30-2014 Stress Echocardiogram - Dobutamine Stress Echocardiogram - Dobutamine [employer] Work Phone: Start: 2014 RSV Vaccine (1 - 1-dose 75+ series) RSV Vaccine (1 - 1-dose 75+ series) [facility] Start: 05-24-2013 End: 05-18-2014 KATTY ALANIZ [employer] Work Phone: Start: 05-24-2013 End: 05-24-2013 Echocardiography Echocardiogram (complete) [employer] Work Phone: Start: 05-24-2013 End: 05-18-2014 Follow Up Appt 1 year Follow Up Appt 1 year [facility] Work Phone: Start: 05-24-2013 End: 05-24-2013 Stress Echocardiogram - Dobutamine Stress Echocardiogram - Dobutamine [facility] Work Phone: Start: 05-19-2013 End: 05-31-2014 *Hepatic Function Panel *Hepatic Function Panel [facility] Work Phone: Start: 05-19-2013 End: 05-31-2014 Lipid panel [AGGREGATE] *Lipid Profile [facility] Work Phone: Start: 11-25-2012 End: 04-14-2013 *Hepatic Function Panel *Hepatic Function Panel [facility] Work Phone: Start: 11-25-2012 End: 04-14-2013 Lipid panel [AGGREGATE] *Lipid Profile [facility] Work Phone: Start: 11-11-2012 End: 11-11-2012 Follow Up Appt 6 months Follow Up Appt 6 months [facility] Work Phone: Start: 06-02-2012 End: 05-07-2012 *Hepatic Function Panel *Hepatic Function Panel [facility] Work Phone: Start: 06-02-2012 End: 05-07-2012 Lipid panel [AGGREGATE] *Lipid Profile [facility] Work Phone: Start: 05-25-2012 End: 05-25-2012 Electrocardiogram, complete EKG (In office) [facility] Work Phone: Start: 05-25-2012 End: 05-25-2012 Follow Up Appt 6 months Follow Up Appt 6 months [facility] Work Phone: Start: 11-11-2011 End: 11-21-2011 *Hepatic Function Panel *Hepatic Function Panel [facility] Work Phone: Start: 11-11-2011 End: 11-11-2011 Follow Up Appt 6 months Follow Up Appt 6 months [facility] Work Phone: Start: 11-11-2011 End: 11-11-2011 Follow Up Appt Other Follow Up Appt Other [facility] Work Phone: Start: 11-11-2011 End: 11-21-2011 Lipid panel [AGGREGATE] *Lipid Profile [facility] Work Phone: Start: 2004 Pneumococcal 65+ years Vaccine (1 of 1 - PPSV23) Pneumococcal 65+ years Vaccine (1 of 1 - PPSV23) [place], [place] Start: 1999 RSV Vaccine (1 - 1-dose 60+ series) RSV Vaccine (1 - 1-dose 60+ series) [facility] Start: 1989 Shingles Vaccine (1 of 2) Shingles Vaccine (1 of 2) [place] Start: 1989 SHINGRIX VACCINE (1 of 2) SHINGRIX VACCINE (1 of 2) [facility] Start: 1958 DTaP/Tdap/Td vaccine (1 - Tdap) DTaP/Tdap/Td vaccine (1 - Tdap) [place], [place] Start: 1958 Urine microalbumin profile [facility] Start: 1957 Anxiety Screening Anxiety Screening [facility] Start: 1949 Lipid panel Lipid screen [facility] Work Phone: Start: 1939 Creatinine measurement Creatinine monitoring [facility] Work Phone: Start: 1939 Potassium monitoring Potassium monitoring [facility] Work Phone: End: 01-26-2023 Ct abdomen & pelvis w/contrast material CT ABD/PEL W IVCON Radiology Routine Localized enlarged lymph nodes Right groin pain 1 Occurrences starting 12/27/2021 until 01/26/[address] [facility] Work Phone: Comment on above: 1 Occurrences starting 12/27/2021 until 01/26/2023 Hemoglobin.gastroint shannan nal.lower [Presence] in Stool by Immunoassay FECAL OCCULT BLOOD TEST Lab Routine Hypotension, unspecified hypotension type Ordered: 06/17/[address] [facility] Work Phone: Comment on above: Ordered: 06/17/2022 INFLUENZA SEASONAL QUADRIVALENT HIGH DOSE AGE 65+ INFLUENZA SEASONAL QUADRIVALENT HIGH DOSE AGE 65+ Immunization/Injection Routine Encounter for immunization Ordered: 06/03/[address] [facility] Work Phone: Comment on above: Ordered: 06/03/2022 Patient Education [facility] Work Phone: Patient referral Marianne Escobar [facility] Work Phone: End: 01-25-2023 Us pelvic nonobstetric image dcmtn limited/f/u US PEL[facility] Radiology MAYANK Right inguinal pain Inguinal bulge 1 Occurrences starting 12/26/2021 until 01/25/[address] [facility] Work Phone: Comment on above: 1 Occurrences starting 12/26/2021 until 01/25/2023 [facility] Immunizations Immunization Date Immunization Notes Care Provider [facility] 06-30-2024 influenza, high dose seasonal, preservative-free Robel Onofre DO Work Phone: [facility] 06-30-2024 influenza virus vaccine, unspecified formulation Tugg DO Work Phone: [facility] 06-13-2023 influenza (HD-IIV4) vaccine, age 65+ yr, high dose, quadrivalent, PF (FLUZONE HIGH-DOSE) Tugg DO Work Phone: [facility] Work Phone: 06-13-2023 influenza virus vaccine, unspecified formulation Tugg DO Work Phone: [facility] 12-06-2022 pneumococcal (PCV20) vaccine, 20 valent (PREVNAR 20) Tugg DO Work Phone: [facility] Work Phone: 12-06-2022 pneumococcal Conjuga te, unspecified formulation Tugg DO Work Phone: [facility] Work Phone: 07-03-2022 influenza, high-dose , quadrivalent vaccine (FLUZONE HIGH DOSE QUADRIVALENT) Bessie Ambrocio APRN.MACHINIST APPRENTICE Work Phone: [facility] 11-06-2020 COVID-19 vaccine, ag e 12+ yr (PFIZER-BIONTECH - PURPLE TOP) Robel Onofre DO Work Phone: [facility] Work Phone: 10-16-2020 COVID-19 vaccine, ag e 12+ yr (PFIZER-BIONTECH - PURPLE TOP) Robel Onofre DO Work Phone: [facility] Work Phone: 06-06-2020 influenza, high-dose , quadrivalent vaccine (FLUZONE HIGH DOSE QUADRIVALENT) Robel Onofre DO Work Phone: [facility] Work Phone: 06-06-2020 pneumococcal polysaccharide vaccine, 23 valent Robel Onofre DO Work Phone: [facility] Work Phone: 03-25-2020 Covid (Pfizer) Dr. Robel Onofre Work Phone: [facility] 02-23-2020 Covid (Pfizer) Dr. Robel Onofre Work Phone: [facility] 08-25-2019 influenza, injectabl e, quadrivalent, preservative free Dr. Robel Onofre DO Work Phone: [facility] 08-25-2019 influenza, seasonal, injectable Dr. Robel Onofre Work Phone: [facility] Work Phone: 07-27-2019 influenza, high dose seasonal, preservative-free Robel Onofre DO Work Phone: [facility] 05-25-[address] Robel Onofre Work Phone: [facility] No information available. Dorota Koenig [facility] Work Phone: NEGATED: Highlighted row has not occurred!06-04-2022 influenza, high-dose, quadrivalent vaccine (FLUZONE HIGH DOSE QUADRIVALENT) Robel Onofre DO Work Phone: [facility] Work Phone: Payers Date Payer Category Payer Self-pay [id number] 2024 Medicare (Managed Care) MMO [employer] HMO [id number] 2024 Unknown [id number] 2021 Private Health Insurance [employer] [id number] 2021 Unknown [employer] [place] [employer] [place] MEDIC[employer] SUPPLEMENT [id number] 2021-Present [phone] [address] [place] [address] Indemnity [id number] 2021 Unknown [employer] [place] [employer] [place] [employer]IC[employer] SUPPLEMENT [id number] 2021-Present [phone] [address] [place] [address] Indemnity [id number] 2021 Medicare [id number] 2016 Private Health Insurance [employer] [place] SUPP [id number] 2016-Present [phone] [address] [place] [address] [id number] [id number] 2016 Private Health Insurance [employer] [place] SUPP [id number] 2016-Present [phone] [address] [place] [address] [id number] 2014 Private Health Insurance [id number] 2004 Medicare MEDICARE MEDICAR E A AND B [id number] 2004-Present [phone] [address] [address] [place] [address] Medicare [id number] 2004 Medicare [id number] 2004 Medicare [id number] Unknown [id number] Unknown [id number] Unknown [id number] Unknown [id number] Social History Date Type Detail Facility Start: 02-11-2018 End: 06-13-2022 Assertion Unknown if ever smoked [facility] Work Phone: Start: 1940 Sex Assigned At Not on file [place], [place] Start: 07-27-2020 End: 12-14-2024 Tobacco smoking status DEIS Former smoker [facility] Work Phone: End: 07-27-1982 History of tobacco use Current smoker [facility] End: 07-27-1982 History of tobacco use Cigarette Smoker [facility] Start: 07-27-2020 End: 06-30-2024 Tobacco use and exposure Never used [facility] Start: 07-27-2020 Alcohol intake Lifetime non-drinker (finding) [facility] Work Phone: Start: 07-27-2020 End: 12-06-2022 History SDOH Alcohol Frequency 1 [facility] Work Phone: Start: 12-12-2021 End: 12-14-2024 Alcohol intake Current non-drinker of alcohol (finding) [facility] Start: 12-04-2020 End: 12-06-2022 History SDOH Social Connections Phone 5 [facility] Start: 12-04-2020 End: 12-06-2022 History SDOH Social Connections Meetings 3 [facility] Start: 12-04-2020 End: 12-06-2022 History SDOH Transport Med 2 [facility] Start: 12-04-2020 Education 12 [facility] Start: 12-02-2021 End: 07-03-2022 Exposure to SARS-CoV-2 (event) Not sure [facility] Work Phone: Start: 10-27-2019 None [facility] Start: 10-27-2019 Cigarettes [facility] Start: 1940 Sex Assigned At Male [facility] Start: 12-06-2022 History SDOH Alcohol Std Drinks 0 [facility] Start: 09-10-2022 End: 12-05-2022 History of Social function [facility] Start: 09-10-2022 End: 12-05-2022 Social connection and isolation panel [facility] Do you belong to any clubs or organizations such as episcopal groups, unions, fraternal or athletic groups, or school groups? Yes [facility] Are you now , , , , never or living with a partner? [facility] How often to you hav e a drink containing alcohol? Never [facility] How many standard dr inks containing alcohol do you have on a typical day? Patient does not drink [facility] Do you feel stress - tense, restless, nervous, or anxious, or unable to sleep at night because your mind is troubled all the time - these days [OSQ] Only a little [facility] (I/We) worried wheervin er (my/our) food would run out before (I/we) got money to buy more. Never true [facility] In the past 12 month s, was there a time when you were not able to pay the mortgage or rent on time? No [facility] Do you feel stress - tense, restless, nervous, or anxious, or unable to sleep at night because your mind is troubled all the time - these days [OSQ] Not at all [facility] Start: 12-14-2024 Sex Male (finding) [facility] Medical Equipment Procedure Code Equipment Code Equipment Origin al Text Equipment Identifier Dates ACCOLADE II ANGL E STEM 127 DEG FDA Start: 11-26-2017 BIOLEX DELTA CER AMIC FEM HEAD FDA Start: 11-26-2017 TRIDENT X3 O DEG POLY INSERT FDA Start: 11-26-2017 trident susan acetabular shell FDA Start: 11-26-2017 Mesh Progrip Polyactic Acid Collagen Polyester [id number] Surgical Self Fixate - [id number] Start: 06-12-2022 ACCOLADE II ANGL E STEM 127 DEG FDA Start: 11-26-2017 BIOLEX DELTA CER AMIC FEM HEAD FDA Start: 11-26-2017 TRIDENT X3 O DEG POLY INSERT FDA Start: 11-26-2017 trident susan acetabular shell FDA Start: 11-26-2017 ACCOLADE II ANGL E STEM 127 DEG FDA Start: 11-26-2017 BIOLEX DELTA CER AMIC FEM HEAD FDA Start: 11-26-2017 TRIDENT X3 O DEG POLY INSERT FDA Start: 11-26-2017 trident susan acetabular shell FDA Start: 11-26-2017 Mesh Progrip Wisam Pet [id number] Surgical Self Fixate Flat Sheet Hernia Sterile - [id number] Start: 06-12-2022 ACCOLADE II ANGL E STEM 127 DEG FDA Start: 11-26-2017 BIOLEX DELTA CER AMIC FEM HEAD FDA Start: 11-26-2017 TRIDENT X3 O DEG POLY INSERT FDA Start: 11-26-2017 trident susan acetabular shell FDA Start: 11-26-2017 ACCOLADE II ANGL E STEM 127 DEG FDA Start: 11-26-2017 BIOLEX DELTA CER AMIC FEM HEAD FDA Start: 11-26-2017 TRIDENT X3 O DEG POLY INSERT FDA Start: 11-26-2017 trident susan acetabular shell FDA Start: 11-26-2017 Goals Date Patient Goal Desired Activity /State Functional Status Date Assessment Result Facility 06-15-2022 Functional status Ambulates;Chair [facility] Work Phone: Mental Status Date Assessment Result Facility 12-14-2024 Cognitive function Voice/Name [facility] Work Phone: 06-15-2022 Cognitive function Voice/Name [facility] Work Phone: Clinical Notes 09-22-1996 to 06-27-2025 Telephone Encounter - Zenaida Morrissey [facility] 03/17/2025 8:57 AM EDTTelephone Encounter - Zenaida Morrissey [facility] 03/17/2025 8:57 AM Citlaly Maldonado MA - 01/18/2025 10:42 AM EDTPatient Instructions Note Date & Type Note Facility 06-27-2025 Note HNO ID: [id number] Author: SALLY STEELE CCC-TELEVISION SCRIPT WRITER Service: ? Author Type: Speech Language Pathologist Type: Progress Notes Filed: 06/27/2025 13:58 Note Text: Summary: DYSPHAGIA EVALUATION Episode Visit Count: 1 Therapist That Will Accept/Oversee The Plan Of Care: Sally Steele Start of Care Date: 06/27/25 Onset Date: 06/24/25 Patient Identified by Name and Date of : Yes [facility] SPEECH THERAPY CLINICAL SWALLOW EVALUATION PLAN OF CARE: Impression: Swallow Deficits Identified / Suspected: Concern for possible esophageal impairment RECOMMENDATIONS: Diet Recommendations Regular Consistency, Thin Liquids IDDSI Level 0 Swallow Strategy Recommendations (Alternate bites/sips;Anti-Reflux precautions;Feed / Eat at a slow rate;Maintain an upright position 20-30 minutes following all oral intake;Self-monitoring;Sit upright 90 degrees for all PO;Small Bite/Sip;Use extra moistening agents) Instrumental Swallow Study Recommendations Modified Barium Swallow Study (MBSS) Recommended Consults GI TELEVISION SCRIPT WRITER Recommendations: Instrumental Swallow Assessment Recommendations Instrumental Swallow Assessment Recommendations: Modified Barium Swallow Study (MBSS) Results and Recommendations Discussed With: Patient, Family, Physician Goals for Episode of Care: established 06/27/2025 N/A; EVALUATION ONLY Planned Interventions, Frequency, and Duration: Current Frequency: Discontinue Therapy Services Duration: (Evaluation only) SUGGESTED TREATMENT OBJECTIVES: N/A Patient demonstrates good understanding of results, recommendations, goals and plan of care. Patient and Family agreed with plan. SUBJECTIVE: Todd Matamoros is a 85 year old male seen today for clinical swallowing assessment. 85 y/o male referred to outpatient speech pathology for dysphagia evaluation due to coughing with meals x3 months. Chest xray 06/24/25 clear. Patient reports he is a slow eater, and chews forever. Elmo accompanied patient, who reported mixed consistencies and items with hulls or skins trigger extensive coughing episodes. Patient denies dysphagia with meats or breads. Reports PPI manages reflux symptoms. Past Relevant Medical Conditions: GERD Patient Goals: Get rid of this cough business. Home Environment Prior Functional Level: Within Functional Limits PROMIS Scales 06/26/2025 Speech Communication Score 80 (Normal) Proxy-reported T-Score and Percentile Interpretation T-scores: mean of general population = 50. 5 points is clinically meaningfully difference Percentiles provide an indication of how the patient's score ranks in relation to the general population. Higher percentile rankings indicate better function/quality of life. 50th percentile is the average of the general population and indicates half of respondents had a worse score. OBJECTIVE MEASURES WITH LEVEL OF FUNCTION: Swallow Position Of Patient During Assessment: Upright In Chair Feeding Method: Patient Self-Fed Consistencies Presented: Thin Liquids IDDSI Level 0, Pureed Solids IDDSI Level 4, Solid Solid Oral Phase: Impaired Mastication (Prolonged mastication. No changes in respiratory pattern or evidence of fatigue. Total oral clearance.) Response to Swallow Interventions: -No coughing, throat clearing, or changes in respiratory pattern ot vocal quality in all trials with thin liquids, pudding, and peanut butter sandwich crackers. -Independent with small, single bites and sips at slow rate. Compensatory Strategies Utilized During Assessment: Alternate bites and sips, Anti-Reflux precautions, Extended time between presentations, Feed / Eat at a slow rate, Maintain an upright position 20-30 minutes following all oral intake, Self-monitoring, Sit upright 90 degrees for all PO, Small Bite/Sip, Use extra moistening agents Terrie Swallow Protocol: Pass Suspected Esophageal Deficits: Patient/Family reported symptoms consistent with possible esophageal dysphagia: early satiation, globus, coughing near end of meal. Education Learning Preferences: Demonstration, Explanation, Performance Barriers: Visual Deficit, Hearing Deficit Learning/Educational Needs: Compensatory Strategies, Family Education/Training, Plan of Care, Swallowing Skills Education Provided: Yes, see treatment interventions for education provided Education Provided To: Patient, Family Education Mode/Type: Demonstration, Explanation/Discussion, Performance, Teach Back Response to Education/Teach Back: States/Identifies, Return Demonstration TREATMENT: Evaluation: Swallow Eval Func (90404) Evaluation: Swallow Eval Func (58443) Current Home Program: Continue diet as tolerated. Continue current swallow/eating strategies. MBSS and GI follow-up ( (more content not included)... [facility] 06-25-2025 Note HNO ID: [id number] Author: ROBEL ONOFRE, DO Service: ? Author Type: Physician Type: Progress Notes Filed: 06/25/2025 08:03 Note Text: Todd Matamoros is a 85 year old male here for a Medicare Wellness visit. Medicare Health Risk Assessment General Health Good Exercise: Minutes/Day Patient declined Exercise: Days/Week Patient declined Alcohol: Daily Use Never Alcohol: Drinks/Day Patient does not drink Alcohol: 6 or more drinks Never Feel off balance Decline Concerns: Teeth/Dentures No Concerns: Sexual function Decline Troubled by feelings None of the above Frequency: Eating healthy diet Nearly every day ADLs requiring help Decline Safety precautions in home/vehicle Yes Smoke, vape, chews tobacco No Difficulty hearing Yes, I wear a hearing aid Difficulty seeing Yes Current Providers Specialists: I have reviewed specialist-related care of the patient in the medical record. Medical/Family history review Reviewed and updated problem list, medical/surgical/family/social history, medications, and allergies. Opioid use review Prescribed: No opioid use on file in the last 90 days Patient-reported: No opioid use on file in the last 90 days Depression screening PHQ-2 Score: 1 (06/23/2025 5:50 AM) PHQ-9 Score: 2 (06/23/2025 5:50 AM) Based on score and interview, patient is at risk for depression. Recommendation: continuing current treatment plan Anxiety screening Continue current medication regiment BALDO-2 Score: 1 BALDO-7 Score: 1 Cognitive screening Cognitive screening reviewed and No further action needed (score 3-5). Functional Observation Was the patient's Timed Up AND Go test unsteady or >= 12 seconds? No Advance Directives Surrogate decision maker and/or advance care plan documented Measurements BP 138/72 Pulse (!) 56 Temp (!) 35.8 ?C (96.5 ?F) (Left Tympanic) Ht 170 cm (5' 6.93) Wt 85.7 kg (189 lb) SpO2 97% BMI 29.66 kg/m? Vision Screening: Follows with optometry/ophthalmology Assessment/Plan Medicare annual wellness visit, subsequent (Z00.00) - Counseled on healthy diet and regular exercise - Fall avoidance information provided - Personalized prevention plan provided - Discussed need for and benefit of weight loss. BMI 29.66 kg/(m2) Robel Onofre DO [facility] 06-24-2025 Note HNO ID: [id number] Author: NAMITA HARDWICK RT(R) Service: ? Author Type: Technologist Type: Progress Notes Filed: 06/24/2025 11:45 Note Text: Radiology Service Progress Note PATIENT NAME: Todd Matamoros DATE OF SERVICE: June 24, 2025 TIME: 11:36 AM PATIENT IDENTITY VERIFICATION COMPLETED USING TWO (2) IDENTIFIERS: Name and Date of confirmed by patient verbally. FALL SCREENING: Has the patient had 2 falls in the last year or 1 fall with injury or currently using an Ambulatory Assistive Device (Walker, Cane, Wheelchair, Crutches, etc.)? No PATIENT GENDER DATA: Assigned male at PATIENT RELEVANT IMPLANT DATA REVIEWED: Yes PATIENT PRESENTS WITH AN IMPLANTABLE OR ATTACHED DIRECTOR OF INFORMATICS: No RADIOLOGY DEPARTMENT: General X-ray: Exam(s) Completed: Chest X-Ray PERIPHERAL IV DATA: Not applicable SIGNED BY: RT Derrick(R) June 24, 2025 11:36 AM [facility] 06-24-2025 Note HNO ID: [id number] Author: ROBEL ONOFRE DO Service: ? Author Type: Physician Type: Progress Notes Filed: 06/25/2025 08:03 Note Text: CC: Todd Matamoros is a 85 year old male who presents to the office for follow up HPI: Dry cough, present for a few months now. Him and his daughter Jadyn state that every time he eats he finds that he feels the need to be coughing. Starts to cough while eating, feels food sometimes isn't able to be swallowed as well up in his throat. Does have hx of GERD, no obvious voice changes. No vomiting, no nausea. His appetite is good/normal. This is getting frustrating to him as well. Urinary urgency and frequency recently, has been eating more sugar and more stress due to recently with fracture of hip and surgical correction. Macular degeneration, continues to progress, no new recent interventions received. Knows that this affects his functioning/abilities but still has been able to stay at home since he knows where everything is located etc. No falls. BPH, long standing, use of Flomax and Proscar with improvement/relief, symptoms much improved HTN, CAD, aortic aneurysm, well controlled pulse and BP, taking medications as prescribed. Continues to see [facility] for followup Iron deficiency, eating iron rich foods,no signs of bleeding. Last labs in Jun 2024, willing to have labs rechecked. Mood, overall stable, taking Sertraline. Helps to care for his with dementia and she recently had a hip fracture. Daughter feels he is doing well. Has fatigue, taking vitamin b12 injections PAST MEDICAL HISTORY Diagnosis Date Acute bronchitis Aneurysm of abdominal aorta 04/20/2011. Lower abdomen. BPH (benign prostatic hyperplasia) CAD (coronary artery disease) Diverticulosis of colon (without mention of hemorrhage) GERD (gastroesophageal reflux disease) Hyperlipidemia Hypertension Internal hemorrhoids without mention of complication Macular degeneration NSTEMI (non-ST elevated myocardial infarction) ([facility]) 10/28/2019 Osteoarthritis of left hip Paresthesia PMH - PAST MEDICAL HISTORY OF sood PMH - PAST MEDICAL HISTORY OF heart problems PMH - PAST MEDICAL HISTORY OF problems with disc PMH - PAST MEDICAL HISTORY OF age 7 rheumatic fever PMH - PAST MEDICAL HISTORY OF syncope Spinal stenosis, unspecified region other than cervical lumbar Urinary incontinence PAST SURGICAL HISTORY Procedure Laterality Date ARTHRP ACETBLR/PROX FEM PROSTC AGRFT/ALGRFT Left 11/26/2017 Dr. Sukhjinder Lewis AVASTIN (BEVACIZUMAB) 1.25MG INTRAVITREAL INJECTION OD (RIGHT EYE) Right multiple COLONOSCOPY FLX DX W/COLLJ SPEC WHEN PFRMD 07/28/2007 DIR RPR ANEURYSM ABDOMINAL AORTA 04/20/2011 [facility] EYLEA (AFLIBERCEPT) 2MG INTRAVITREAL INJECTION OD (RIGHT EYE) Right 2017 x 3 INGUINAL HERNIA REPAIR HX Bilateral 06/12/2022 with mesh OTHER 10/28/2019 PTCA/BRYSON X2 in the saphenous vein graft to OM1. PAST SURGICAL HISTORY OF 09/1996 CABG PAST SURGICAL HISTORY OF 2004, 2016 Back PAST SURGICAL HISTORY OF cardiac cath PAST SURGICAL HISTORY OF 2004 right hip replacement PAST SURGICAL HISTORY OF 06/2007 surveillance cardiac cath PAST SURGICAL HISTORY OF 12/2009 Heart Cath PAST SURGICAL HISTORY OF Left 11/2017 Left Hip Surgery PERIPH ANEUR ARM KHADIJAH MAP INPT 2010 PRICARDIECTOMY STOT/COMPL W/CARDPULM BYPASS 1996 TONSILLECTOMY PRIMARY/SECONDARY Tonsillectomy XCAPSL CTRC RMVL INSJ IO LENS PROSTH W/O ECP Bilateral Cataract Extraction with PC IOL Social History: SOCIAL HISTORY[1] FAMILY HISTORY Problem Relation Age of Onset Heart Mother age 60 [place], smoker None Father age 77 MVA Cataract Father No Known Problems Sister No Known Problems Brother No Known Problems Sister No Known Problems Sister No Known Problems Sister Coronary Artery Disease Brother Coronary Artery Disease Brother Current Outpatient prescriptions: atenolol (TENORMIN) 50 mg tablet Take 1 tablet by mouth once daily. cyanocobalamin 1,000 mcg/mL INJECT 1 ML INTRAMUSCULARLY 1 TIME PER WEEK FOR 30 DAYS THEN 1 ML EVERY 2 (TWO) WEEKS sertraline (ZOLOFT) 25 mg tablet Take 1 tablet by mouth once daily. simvastatin (ZOCOR) 20 mg tablet Take 1 tablet by mouth daily at bedtime. pantoprazole DR (PROTONIX) 40 mg tablet Take 1 tablet by mouth once daily. 30 minutes before eating. lisinopril (ZESTRIL) 10 mg tablet Take 1 tablet by mouth once daily. Cholecalciferol, Vitamin D3, (VITAMIN D-3) 50 mcg (2,000 unit) cap Take 1 capsule by mouth once daily. tamsulosin (FLOMAX) 0.4 mg Take 2 capsules by mouth once daily. finasteride (PROSCAR) 5 mg tablet Take 1 tablet by mouth once daily. clopidogrel (PLAVIX) 75 mg tablet Take 1 tablet by mouth once daily. triamcinolone acetonide (KENALOG) 0.1 % cream Apply 1 application to affected area two times a day. For eczema, Apply sparingly to area for rash/itching. Allergies: ALLERGIES (more content not included)... [facility] 03-17-2025 Telephone encounter Note Prescription Refill Information The patient has been identified by name and date of : Yes Caregiver verified no other encounters exist for this prescription request: Yes Caregiver confirmed with patient/requestor that no other refills are due, in the near future, with this provider at this time: Yes The last office visit in the department: 12-27-24 Does the patient have a future office visit with this provider/department: Yes Requested Prescriptions Pending Prescriptions Disp Refills sertraline (ZOLOFT) 25 mg tablet 90 tablet 1 Sig: Take 1 tablet by mouth once daily. Zenaida Mace March 17, 2025 8:57 AM [facility] 03-17-2025 Miscellaneous Notes Prescription Refill Information The patient has been identified by name and date of : Yes Caregiver verified no other encounters exist for this prescription request: Yes Caregiver confirmed with patient/requestor that no other refills are due, in the near future, with this provider at this time: Yes The last office visit in the department: 12-27-24 Does the patient have a future office visit with this provider/department: Yes Requested Prescriptions Pending Prescriptions Disp Refills sertraline (ZOLOFT) 25 mg tablet 90 tablet 1 Sig: Take 1 tablet by mouth once daily. Zenaida Mace March 17, 2025 8:57 AM documented in this encounter [facility] 02-10-2025 Telephone encounter Note Prescription Refill Information The patient has been identified by name and date of : Yes Caregiver verified no other encounters exist for this prescription request: Yes Caregiver confirmed with patient/requestor that no other refills are due, in the near future, with this provider at this time: Yes The last office visit in the department: 12/27/24 Does the patient have a future office visit with this provider/department: Yes Requested Prescriptions Pending Prescriptions Disp Refills cyanocobalamin 1,000 mcg/mL [Pharmacy Med Name: cyanocobalamin (vit B-12) 1,000 mcg/mL injection solution] 30 mL 1 Sig: INJECT 1 ML INTRAMUSCULARLY 1 TIME PER WEEK FOR 30 DAYS THEN 1 ML EVERY 2 (TWO) WEEKS Sarah Cedillo MA February 10, 2025 7:53 PM [facility] 02-10-2025 Miscellaneous Notes Prescription Refill Information The patient has been identified by name and date of : Yes Caregiver verified no other encounters exist for this prescription request: Yes Caregiver confirmed with patient/requestor that no other refills are due, in the near future, with this provider at this time: Yes The last office visit in the department: 12/27/24 Does the patient have a future office visit with this provider/department: Yes Requested Prescriptions Pending Prescriptions Disp Refills cyanocobalamin 1,000 mcg/mL [Pharmacy Med Name: cyanocobalamin (vit B-12) 1,000 mcg/mL injection solution] 30 mL 1 Sig: INJECT 1 ML INTRAMUSCULARLY 1 TIME PER WEEK FOR 30 DAYS THEN 1 ML EVERY 2 (TWO) WEEKS Sarah Cedillo MA February 10, 2025 7:53 PM documented in this encounter [facility] 01-18-2025 Note HNO ID: [id number] Author: ICTLALY PAYTON MA Service: ? Author Type: Orthopaedic Technologist Type: Progress Notes Filed: 01/18/2025 10:43 Note Text: POPULATION HEALTH NAVIGATION OUTREACH Action/FYI Spoke to patient's daughter and appointment for AWV with HCC gap closure scheduled. Daughter also asked me to schedule an appointment for his /her mother and this was done as well. Topic Due (Y or N) Comments Annual Wellness Exam Yes PCP Follow up No Colorectal Cancer Screening No A1C No HTN/Controlling BP No HCC Yes Updated appointment notes No Reason for Outreach Care Gap/HCC or Scheduling Wellness Visits Care Gaps due: Medicare Annual Wellness Visit Patient Contacted: Spoke to patient/parent/or legal guardian Patient identified by name and : Yes Care Gap/HCC/Scheduling Wellness actions taken: Patient scheduled/pended orders: Medicare Annual Wellness Visit 06/24/2025 in [facility] with ROBEL ONOFRE - Medicare Wellness, HCC gap closure HCC related Navigation Signature: Citlaly Payton MA January 18, 2025 10:43 AM [facility] 01-18-2025 History of Present illness Narrative POPULATION HEALTH NAVIGATION OUTREACH Action/FYI Spoke to patient's daughter and appointment for AWV with HCC gap closure scheduled. Daughter also asked me to schedule an appointment for his /her mother and this was done as well. Topic Due (Y or N) Comments Annual Wellness Exam Yes PCP Follow up No Colorectal Cancer Screening No A1C No HTN/Controlling BP No HCC Yes Updated appointment notes No Reason for Outreach Care Gap/HCC or Scheduling Wellness Visits Care Gaps due: Medicare Annual Wellness Visit Patient Contacted: Spoke to patient/parent/or legal guardian Patient identified by name and : Yes Care Gap/HCC/Scheduling Wellness actions taken: Patient scheduled/pended orders: Medicare Annual Wellness Visit 06/24/2025 in [facility] with ROBEL ONOFRE Medicare Wellness, HCC gap closure HCC related Navigation Signature: Citlaly Payton MA January 18, 2025 10:43 AM documented in this encounter [facility] 01-18-2025 Note Patient Outreach (NE TNAV) TODD MATAMOROS ([id number]) 1940 M Date Time Provider Department 01/18/25 CITLALY PAYTON During your visit today, we recorded the following information about you: Citlaly Payton MA 01/18/2025 10:43 AM Signed POPULATION HEALTH NAVIGATION OUTREACH Action/FYI Spoke to patient's daughter and appointment for AWV with HCC gap closure scheduled. Daughter also asked me to schedule an appointment for his /her mother and this was done as well. Topic Due (Y or N) Comments Annual Wellness Exam Yes PCP Follow up No Colorectal Cancer Screening No A1C No HTN/Controlling BP No HCC Yes Updated appointment notes No Reason for Outreach Care Gap/HCC or Scheduling Wellness Visits Care Gaps due: Medicare Annual Wellness Visit Patient Contacted: Spoke to patient/parent/or legal guardian Patient identified by name and : Yes Care Gap/HCC/Scheduling Wellness actions taken: Patient scheduled/pended orders: Medicare Annual Wellness Visit 06/24/2025 in [facility] with ROBEL ONOFRE Medicare Wellness, HCC gap closure HCC related Navigation Signature: Citlaly Payton MA January 18, 2025 10:43 AM Allergies As of Date: 01/18/2025 (No Known Allergies) Date Reviewed: 12/14/2024 Reviewed by: Asha Hernandez APRN.CNP - Fully Assessed Reason for Visit: Population Health Navigation Outreach [3910] Cmt: [place]/Workbench/ACO Prescriptions as of 01/18/2025 - simvastatin (ZOCOR) 20 mg tablet Take 1 tablet by mouth daily at bedtime. - pantoprazole DR (PROTONIX) 40 mg tablet Take 1 tablet by mouth once daily. 30 minutes before eating. - meclizine (ANTIVERT) 12.5 mg tab Take 1 tablet by mouth three times a day as needed (for dizziness.). - lisinopril (ZESTRIL) 10 mg tablet Take 1 tablet by mouth once daily. - Cholecalciferol, Vitamin D3, (VITAMIN D-3) 50 mcg (2,000 unit) cap Take 1 capsule by mouth once daily. - tamsulosin (FLOMAX) 0.4 mg Take 2 capsules by mouth once daily. - sertraline (ZOLOFT) 25 mg tablet Take 1 tablet by mouth once daily. - finasteride (PROSCAR) 5 mg tablet Take 1 tablet by mouth once daily. - cyanocobalamin 1,000 mcg/mL Inject 1 mL intramuscularly one time a week for 30 days, THEN 1 mL every 2 weeks. - clopidogrel (PLAVIX) 75 mg tablet Take 1 tablet by mouth once daily. - atenolol (TENORMIN) 50 mg tablet Take 1 tablet by mouth once daily. - triamcinolone acetonide (KENALOG) 0.1 % cream Apply 1 application to affected area two times a day. For eczema, Apply sparingly to area for rash/itching. Problem List As Of Date 01/18/2025 Noted Resolved ACTINIC KERATOSES (Premalignant AK's) [L57.0] 05/27/2006 ACTINIC DAMAGE///CHR SOLAR SKIN DAMAGE NOS [L57*05/27/2006 SEBORRHEIC KERATOSIS INFLAMED [L82.0] 05/27/2006 SOLAR LENTIGINES [L81.9] 05/27/2006 BENIGN FABIAN SKIN FACE NEC [D23.30] 05/27/2006 BENIGN FABIAN SKIN TRUNK [D23.5] 07/02/2006 SEBORRHEIC KERATOSIS NOS [L82.1] 07/02/2006 NEVUS, NON-NEOPLASTIC [I78.1] 07/02/2006 SCAR AND FIBROSIS OF SKIN [L90.5] 07/02/2006 Eczema Dermatitis and Other Eczema, due to Unsp*08/02/2009 Xerosis Cutis [L85.3] 08/02/2009 Unspecified Pruritic Disorder [L29.9] 08/02/2009 Melanocytic Nevus Moles: Intradermal types: of *04/04/2010 BPH associated with nocturia [N40.1, R35.1] 10/01/2019 Bilateral exudative age-related macular degener*10/01/2019 Coronary artery disease due to lipid rich plaqu*10/01/2019 GERD with esophagitis [K21.00] 10/01/2019 Familial hypercholesterolemia [E78.01] 10/01/2019 NSTEMI (non-ST elevated myocardial infarction) *11/09/2019 Diarrhea [R19.7] 02/09/2020 Gastroesophageal reflux disease with esophagiti*06/06/2020 Vitamin D deficiency [E55.9] 12/05/2020 Fatigue [R53.83] 12/05/2020 Dysthymia [F34.1] 12/05/2020 Eczema [L30.9] 12/05/2020 Hypertension, essential [I10] 03/06/2021 AAA (abdominal aortic aneurysm) [I71.40] 05/31/2022 Thrombocytopenia (HCC) [D69.6] 05/31/2022 Acute renal insufficiency [N28.9] 05/31/2022 Vitamin B12 deficiency [E53.8] 06/04/2022 Elevated serum creatinine [R79.89] 06/04/2022 Right inguinal hernia [K40.90] 06/04/2022 06/12/2022 Iron deficiency anemia [D50.9] 12/06/2022 Borderline abnormal thyroid function test [R94.*12/22/2023 Hyperglycemia [R73.9] 06/30/2024 Macular degeneration of both eyes [H35.30] 06/30/2024 Depression [F32.A] 06/30/2024 BPPV (benign paroxysmal positional vertigo), un*12/27/2024 Encounter Status:Closed by CITLALY PAYTON on 01/18/25 [facility] 12-27-2024 Instructions Robel Onofre DO - 12/27/2024 11:19 AM EDT STOP the Omeprazole Start on PROTONIX documented in this encounter [facility] 12-27-2024 Note HNO ID: [id number] Author: ROBEL ONOFRE DO Service: ? Author Type: Physician Type: Progress Notes Filed: 12/27/2024 14:03 Note Text: CC: Todd Matamoros is a 84 year old male who presents to the office for follow up HPI: Recently with episode of dizziness. Was assessed in office by Asha Hernandez CNP and then sent to [facility] for further assessment with CT brain and labs which were overall normal. He was then seen for follow up with ENT specialist for additional testing and Dr. Garay was able to do Iris maneuver with benefit. Macular degeneration, continues to progress, no new recent interventions received. Knows that this affects his functioning/abilities but still has been able to stay at home since he knows where everything is located etc. No falls. BPH, long standing, use of Flomax and Proscar with improvement/relief, symptoms much improved HTN, CAD, aortic aneurysm, well controlled pulse and BP, taking medications as prescribed. Continues to see [facility] for followup Iron deficiency, eating iron rich foods,no signs of bleeding. Last labs in Jun 2024 Mood, overall stable, taking Sertraline. Helps to care for his with dementia. Daughter feels he is doing well. Has fatigue, taking vitamin b12 injections PAST MEDICAL HISTORY Diagnosis Date Acute bronchitis Aneurysm of abdominal aorta 04/20/2011. Lower abdomen. BPH (benign prostatic hyperplasia) CAD (coronary artery disease) Diverticulosis of colon (without mention of hemorrhage) GERD (gastroesophageal reflux disease) Hyperlipidemia Hypertension Internal hemorrhoids without mention of complication Macular degeneration NSTEMI (non-ST elevated myocardial infarction) (HCC) 10/28/2019 Osteoarthritis of left hip Paresthesia PMH - PAST MEDICAL HISTORY OF sood PMH - PAST MEDICAL HISTORY OF heart problems PMH - PAST MEDICAL HISTORY OF problems with disc PMH - PAST MEDICAL HISTORY OF age 7 rheumatic fever PMH - PAST MEDICAL HISTORY OF syncope Spinal stenosis, unspecified region other than cervical lumbar Urinary incontinence PAST SURGICAL HISTORY Procedure Laterality Date ARTHRP ACETBLR/PROX FEM PROSTC AGRFT/ALGRFT Left 11/26/2017 Dr. Sukhjinder Lewis AVASTIN (BEVACIZUMAB) 1.25MG INTRAVITREAL INJECTION OD (RIGHT EYE) Right multiple COLONOSCOPY FLX DX W/COLLJ SPEC WHEN PFRMD 07/28/2007 DIR RPR ANEURYSM ABDOMINAL AORTA 04/20/2011 [place] EYLEA (AFLIBERCEPT) 2MG INTRAVITREAL INJECTION OD (RIGHT EYE) Right 2017 x 3 INGUINAL HERNIA REPAIR HX Bilateral 06/12/2022 with mesh OTHER 10/28/2019 PTCA/BRYSON X2 in the saphenous vein graft to OM1. PAST SURGICAL HISTORY OF 09/1996 CABG PAST SURGICAL HISTORY OF 2004, 2016 Back PAST SURGICAL HISTORY OF cardiac cath PAST SURGICAL HISTORY OF 2004 right hip replacement PAST SURGICAL HISTORY OF 06/2007 surveillance cardiac cath PAST SURGICAL HISTORY OF 12/2009 Heart Cath PAST SURGICAL HISTORY OF Left 11/2017 Left Hip Surgery PERIPH ANEUR ARM KHADIJAH MAP INPT 2010 PRICARDIECTOMY STOT/COMPL W/CARDPULM BYPASS 1996 TONSILLECTOMY PRIMARY/SECONDARY Tonsillectomy XCAPSL CTRC RMVL INSJ IO LENS PROSTH W/O ECP Bilateral Cataract Extraction with PC IOL Current Outpatient Medications Medication Sig simvastatin (ZOCOR) 20 mg tablet Take 1 tablet by mouth daily at bedtime. meclizine (ANTIVERT) 12.5 mg tab Take 1 tablet by mouth three times a day as needed (for dizziness.). lisinopril (ZESTRIL) 10 mg tablet Take 1 tablet by mouth once daily. Cholecalciferol, Vitamin D3, (VITAMIN D-3) 50 mcg (2,000 unit) cap Take 1 capsule by mouth once daily. tamsulosin (FLOMAX) 0.4 mg Take 2 capsules by mouth once daily. sertraline (ZOLOFT) 25 mg tablet Take 1 tablet by mouth once daily. finasteride (PROSCAR) 5 mg tablet Take 1 tablet by mouth once daily. cyanocobalamin 1,000 mcg/mL Inject 1 mL intramuscularly one time a week for 30 days, THEN 1 mL every 2 weeks. clopidogrel (PLAVIX) 75 mg tablet Take 1 tablet by mouth once daily. atenolol (TENORMIN) 50 mg tablet Take 1 tablet by mouth once daily. triamcinolone acetonide (KENALOG) 0.1 % cream Apply 1 application to affected area two times a day. For eczema, Apply sparingly to area for rash/itching. omeprazole 20 mg capsule Take 20 mg by mouth once daily. Take one(1) tablet daily. No current facility-administered medications for this visit. ALLERGIES No Known Allergies Social History Tobacco Use Smoking status: Former Current packs/day: 0.00 Types: Cigarettes Quit date: 05/27/1982 Years since quittin.6 Smokeless tobacco: Never Vaping Use Vaping status: Never Used Substance Use Topics Alcohol use: No Drug use: No ROS: See HPI PE: BP 110/70 Pulse 60 Temp (Src) 98.6 (Right Tympanic) Resp 20 Wt 182 lb (82.6kg) Gen: AANDO, NAD, non-toxic appearing, Pleasant, cooperative HEENT: NT/AC, PERRLA, EOMs intact b/l, visually impair (more content not included)... [facility] 12-27-2024 History of Present illness Narrative CC: Todd Matamoros is a 84 year old male who presents to the office for follow up HPI: Recently with episode of dizziness. Was assessed in office by Asha Hernandez CNP and then sent to [facility] for further assessment with CT brain and labs which were overall normal. He was then seen for follow up with ENT specialist for additional testing and Dr. Garay was able to do Iris maneuver with benefit. Macular degeneration, continues to progress, no new recent interventions received. Knows that this affects his functioning/abilities but still has been able to stay at home since he knows where everything is located etc. No falls. BPH, long standing, use of Flomax and Proscar with improvement/relief, symptoms much improved HTN, CAD, aortic aneurysm, well controlled pulse and BP, taking medications as prescribed. Continues to see [facility] for followup Iron deficiency, eating iron rich foods,no signs of bleeding. Last labs in Jun 2024 Mood, overall stable, taking Sertraline. Helps to care for his with dementia. Daughter feels he is doing well. Has fatigue, taking vitamin b12 injections PAST MEDICAL HISTORY Diagnosis Date Acute bronchitis Aneurysm of abdominal aorta 04/20/2011. Lower abdomen. BPH (benign prostatic hyperplasia) CAD (coronary artery disease) Diverticulosis of colon (without mention of hemorrhage) GERD (gastroesophageal reflux disease) Hyperlipidemia Hypertension Internal hemorrhoids without mention of complication Macular degeneration NSTEMI (non-ST elevated myocardial infarction) ([facility]) 10/28/2019 Osteoarthritis of left hip Paresthesia PMH - PAST MEDICAL HISTORY OF sood PMH - PAST MEDICAL HISTORY OF heart problems PMH - PAST MEDICAL HISTORY OF problems with disc PMH - PAST MEDICAL HISTORY OF age 7 rheumatic fever PMH - PAST MEDICAL HISTORY OF syncope Spinal stenosis, unspecified region other than cervical lumbar Urinary incontinence PAST SURGICAL HISTORY Procedure Laterality Date ARTHRP ACETBLR/PROX FEM PROSTC AGRFT/ALGRFT Left 11/26/2017 Dr. Sukhjinder Lewis AVASTIN (BEVACIZUMAB) 1.25MG INTRAVITREAL INJECTION OD (RIGHT EYE) Right multiple COLONOSCOPY FLX DX W/COLLJ SPEC WHEN PFRMD 07/28/2007 DIR RPR ANEURYSM ABDOMINAL AORTA 04/20/2011 [facility] EYLEA (AFLIBERCEPT) 2MG INTRAVITREAL INJECTION OD (RIGHT EYE) Right 2017 x 3 INGUINAL HERNIA REPAIR HX Bilateral 06/12/2022 with mesh OTHER 10/28/2019 PTCA/BRYSON X2 in the saphenous vein graft to OM1. PAST SURGICAL HISTORY OF 09/1996 CABG PAST SURGICAL HISTORY OF 2004, 2016 Back PAST SURGICAL HISTORY OF cardiac cath PAST SURGICAL HISTORY OF 2004 right hip replacement PAST SURGICAL HISTORY OF 06/2007 surveillance cardiac cath PAST SURGICAL HISTORY OF 12/2009 Heart Cath PAST SURGICAL HISTORY OF Left 11/2017 Left Hip Surgery PERIPH ANEUR ARM KHADIJAH MAP INPT 2010 PRICARDIECTOMY STOT/COMPL W/CARDPULM BYPASS 1996 TONSILLECTOMY PRIMARY/SECONDARY <AGE 11 age 8 Tonsillectomy XCAPSL CTRC RMVL INSJ IO LENS PROSTH W/O ECP Bilateral Cataract Extraction with PC IOL Current Outpatient Medications Medication Sig simvastatin (ZOCOR) 20 mg tablet Take 1 tablet by mouth daily at bedtime. meclizine (ANTIVERT) 12.5 mg tab Take 1 tablet by mouth three times a day as needed (for dizziness.). lisinopril (ZESTRIL) 10 mg tablet Take 1 tablet by mouth once daily. Cholecalciferol, Vitamin D3, (VITAMIN D-3) 50 mcg (2,000 unit) cap Take 1 capsule by mouth once daily. tamsulosin (FLOMAX) 0.4 mg Take 2 capsules by mouth once daily. sertraline (ZOLOFT) 25 mg tablet Take 1 tablet by mouth once daily. finasteride (PROSCAR) 5 mg tablet Take 1 tablet by mouth once daily. cyanocobalamin 1,000 mcg/mL Inject 1 mL intramuscularly one time a week for 30 days, THEN 1 mL every 2 weeks. clopidogrel (PLAVIX) 75 mg tablet Take 1 tablet by mouth once daily. atenolol (TENORMIN) 50 mg tablet Take 1 tablet by mouth once daily. triamcinolone acetonide (KENALOG) 0.1 % cream Apply 1 application to affected area two times a day. For eczema, Apply sparingly to area for rash/itching. omeprazole 20 mg capsule Take 20 mg by mouth once daily. Take one(1) tablet daily. No current facility-administered medications for this visit. ALLERGIES No Known Allergies Social History Tobacco Use Smoking status: Former Current packs/day: 0.00 Types: Cigarettes Quit date: 05/27/1982 Years since quittin.6 Smokeless tobacco: Never Vaping Use Vaping status: Never Used Substance Use Topics Alcohol use: No Drug use: No ROS: See HPI PE: BP 110/70 Pulse 60 Temp (Src) 98.6 (Right Tympanic) Resp 20 Wt 182 lb (82.6kg) Gen: A&O, NAD, non-toxic appearing, Pleasant, cooperative HEENT: NT/AC, PERRLA, EOMs intact b/l, visually impaired, nares clear and patent b/l, pharynx without erythema, exudate or lesions, MMM. Uvula midline. EACs without erythema or debris. TMs pearly mcarthur with intact landmarks b/l. Neck: supple, No cervical LAD, no thyromegaly, no carotid bruits CV: RRR, normal S1 and S2, no murmurs, no gallops, no rubs, Pulses 2+ and symmetric in UE and LE b/l Lungs: normal respiratory effort, CTA b/l, no wheezing or rhonchi or rales Abd: soft, NT, ND, +BS, no hepatosplenomegaly MS: FROM all 4 extremities Neuro: CN II-XII intact b/l, strength 5/5 b/l UE and LE, DTRs 2/4 UE and LE, sensation intact. Skin: warm, dry, intact, actinic keratosis x 1 on left lower cheek No edema, normal pulses Informed consent: Discussed the risks (permanent scarring, light or dark discoloration, infection, pain, bleeding, bruising, redness, blister formation, and recurrence of the lesion) and the benefits of the procedure, as well as the alternatives. Informed consent was obtained. Anesthesia: none The hyperkeratotic portion of the lesion was removed with sharp debridement. The lesion was destroyed with liquid nitrogen. It was frozen until the ice ball extended beyond the lesion. 1 freeze/thaw cycles were done. Lesion on left lower cheek ASSESSMENT/PLAN: 1. Gastroesophageal ref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 hemorrhage - ICD9: 530.81, 530.10, ICD10: K21.00 (primary diagnosis) - Discussed lifestyle modifications including losing weight, limiting caffeine, no meals three hours before sleep, and head of bed elevation - PANTOPRAZOLE 40 MG TABLET,DELAYED RELEASE 2. Vitamin D deficiency - ICD9: 268.9, ICD10: E55.9 Continue supplement 3. Other depression - ICD9: 311, ICD10: F32.89 Stable, continue same medication 4. Vitamin B12 deficiency - ICD9: 266.2, ICD10: E53.8 Continue supplement stable 5. Thrombocytopenia - ICD9: 287.5, ICD10: D69.6 stable 6. Familial hypercholesterolemia - ICD9: 272.0, ICD10: E78.01 stable 7. Macular degeneration of both eyes, unspecified type - ICD9: 362.50, ICD10: H35.30 Stable/slowly worsening, no concerns. 8. BPH associated with nocturia - ICD9: 600.01, 788.43, ICD10: N40.1, R35.1 stable 9. Actinic keratosis - ICD9: 702.0, ICD10: L57.0 Treated with cryotherapy with benefit, no complications, tolerated well, aware of care at home 10. BPPV (benign paroxysmal positional vertigo), unspecified laterality - ICD9: 386.11, ICD10: H81.10 Improved after IRIS maneuver, CT head and labs were stable/normal Robel Onofre DO Return if no improvement. Follow up with Robel Onofre DO. To ER if develops chest pain, shortness of breath. Discussed risks, benefits, alternatives, and potential side effects of medications. Patient/Guardian expressed understanding and agreed with the plan. See patient instructions. Robel Onofre DO [address] [place] [address] documented in this encounter [facility] 12-21-2024 Telephone encounter Note Spoke with daughter and notified of below. Verbalized understanding. Nuria Hurst LPN [facility] 12-21-2024 Miscellaneous Notes Spoke with daughter and notified of below. Verbalized understanding. Nuria Hurst LPN The following approved medication requests have been transmitted electronically. Requested Prescriptions Signed Prescriptions Disp Refills meclizine (ANTIVERT) 12.5 mg tab 20 tablet 0 Sig: Take 1 tablet by mouth three times a day as needed (for dizziness.). Authorizing Provider: PARISH BEASLEY PA-C Daughter, Zulema, reports pt saw Asha on 12/14/24 for vertigo. Asha sent pt to [facility] ER that day and ER prescribed meclizine 12.5 mg take 3 x's day prn. Reports the meclizine has helped pt's vertigo. Daughter did not schedule ER f/u with pcp b/c patient has appt with pcp on Friday12/27/24 for a f/u. Reports pt has 1-2 meclizine pills left. Asking if pcp would send new Rx to [facility]. Pended. documented in this encounter [facility] 12-21-2024 Telephone encounter Note The following approved medication requests have been transmitted electronically. Requested Prescriptions Signed Prescriptions Disp Refills meclizine (ANTIVERT) 12.5 mg tab 20 tablet 0 Sig: Take 1 tablet by mouth three times a day as needed (for dizziness.). Authorizing Provider: PARISH BEASLEY PA-C [facility] 12-20-2024 Telephone encounter Note Daughter, Zulema, reports pt saw Asha on 12/14/24 for vertigo. Asha sent pt to [facility] ER that day and ER prescribed meclizine 12.5 mg take 3 x's day prn. Reports the meclizine has helped pt's vertigo. Daughter did not schedule ER f/u with pcp b/c patient has appt with pcp on Friday12/27/24 for a f/u. Reports pt has 1-2 meclizine pills left. Asking if pcp would send new Rx to [facility]. Pended. [facility] 12-14-2024 Radiology Diagnostic study note [facility] Imaging Services [address] [place], [place] [id number] CTA Head AND Neck W/ Contrast MR#: [id number] Acct: [id number] Name: TODD MATAMOROS Rep #: [id number] : 1940 M 84 From: Robert Raymond MD PCP: Dr. Robel Onofre, DO Status: RE G ER Study:CTA Head AND Neck W/ Contrast Date of E xam: 12/14/24 Exam# [id number] Ordering Dr: Cristobal Mayo DO PROCEDURE: CTA HEAD AND NECK W/ CONTRAST 12/14/2024 REASON FOR EXAM: VERTIGO TECHNIQUE: CTA imaging of the head and neck from the aortic arch to the skull vertex with out constrast and with intravenous contrast. Coronal and Sagittal reconstruction series were provided. 3D post processing with reformations, Maximum intensity projection (MIPs) Volume rendering and Shaded surface rendering was provided. CONTRAST: Isovue 370 VOLUME: 88 mL One or more dose reduction techniques were used (e.g., Automated exposure control, adjustment of the mA and/or kV according to patient size, use of iterative reconstruction technique). RADIATION DOSE SUMMARY: CTDlvol: 33.3 mGy DLP: 1574.76 mGycm COMPARISON: None FINDINGS: Aortic Arch: Normal size and branching pattern. Mild atherosclerotic plaque. Brachiocephalic and Subclavians: Mild atherosclerotic plaque without significantstenosis. Prior CABG. RIGHT Carotid: Right CCA: Unremarkable. Right ICA: Mild calcified and soft plaque. Maximum stenosis (NASCET): <50 % Right ECA: Unremarkable. LEFT Carotid: Left CCA: Unremarkable. Left ICA: Unremarkable. Left ECA: Unremarkable. Vertebrals: Codominant. Arise from the subclavians. Both vertebrals form the basilar. RIGHT Vertebral: Unremarkable. LEFT Vertebral: Unremarkable. Anatomy: [place] anatomy is normal. Aneurysm or avm: No intracranial aneurysms or large vascular malformations are identified. Anterior cerebral arteries: Unremarkable: Middle cerebral arteries: Unremarkable. Basilar artery: Unremarkable. Posterior cerebral arteries: Unremarkable. Other major branches of the posterior circulation: Unremarkable. Major venous structures: Unremarkable. Other findings: Neck: No lymphadenopathy. Lungs: Lung apices are clear. Bones: Unenhanced brain examination was performed as well. Mild degree of cerebral atrophy as well as decreased attenuation in the bilateral periventricular white matter suggestive of chronic small-vessel disease. CT/CTA Head AND Neck W/ Contrast IMPRESSION: Minimal plaque formation at the origin of the right internal carotid artery. Cerebral atrophy. [facility] CC: Dr. Robel Onofre, DO; Dr. Cristobal Mayo DO ~ Mill Control Operator: Signed [facility] 12-14-2024 Instructions Asha Hernandez, GIA.[facility] - 12/14/2024 12:22 PM EDT We discussed your dizziness and nausea: - Your symptoms are consistent with benign positional vertigo, which occurs when crystals in the inner ear become misaligned, causing dizziness and a spinning sensation. However, due to your age, medical history (including a prior heart bypass), and the severity of your nausea and dizziness, I am concerned about the possibility of a stroke. - I strongly recommend that you go to the emergency room today for further evaluation. At the hospital, they can perform a CT scan of your brain to rule out a stroke and provide treatment for your dizziness and nausea. - Please let the emergency room staff know about your symptoms, including when they started, the spinning sensation, and the associated nausea. We discussed your medical history: - Your neurological exam today was normal, but it is important to note that some strokes may not show obvious neurological signs. - Your history of heart disease increases your risk for stroke, which is why further testing is necessary. Next steps: - Please proceed to the emergency room as soon as possible for further evaluation and treatment. - Bring a list of your current medications with you to the hospital. If you have any questions or concerns after your visit to the emergency room, please contact our office. documented in this encounter [facility] 12-14-2024 Note HNO ID: [id number] Author: ASHA HERNANDEZ APRN.LEO Service: ? Author Type: Nurse Practitioner Type: Progress Notes Filed: 12/14/2024 12:34 Note Text: CC: Patient presents with: Vertigo: Dizziness x 1 day HPI Recording using [employer] software for draft documentation of the visit was discussed with the patient/authorized patient service representative; all questions welcomed and answered. Patient/authorized patient service representative agreed to proceed Daryn is a 84-year-old male, with a history of CABG, presenting with acute onset of vertigo and nausea. He is accompanied by his daughter, who is providing additional history. Daryn reports the onset of vertigo last night when he sat up from a supine position to use the bathroom. He describes the sensation as the room spinning and notes that the vertigo subsided after sitting in the bathroom for a while. He denies any previous similar episodes, though he recalls a mild episode years ago that did not require medical attention. He also reports a 2-month history of feeling clumsy when standing and moving, but denies any recent falls or head injuries. Daryn experiences nausea with the vertigo, but denies emesis, fever, chills, otalgia, ear pressure, tinnitus, cephalalgia, chest pain, palpitations, slurred speech, facial drooping, or numbness and tingling. He has not been sick recently and denies any changes in vision since the onset of vertigo. He is not completely blind, but has limited vision. Denies any recent hospitalization, new medications or dose changes. Daryn is on Plavix following a CABG and denies any current cardiac issues. His BP is elevated today and orthostatic vital signs were positive, he has not been monitoring his blood pressure at home. 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 Lower abdomen. BPH (benign prostatic hyperplasia) CAD (coronary artery disease) Diverticulosis of colon (without mention of hemorrhage) GERD (gastroesophageal reflux disease) Hyperlipidemia Hypertension Internal hemorrhoids without mention of complication Macular degeneration NSTEMI (non-ST elevated myocardial infarction) ([facility]) 10/28/2019 Osteoarthritis of left hip Paresthesia PMH - PAST MEDICAL HISTORY OF sood PMH - PAST MEDICAL HISTORY OF heart problems PMH - PAST MEDICAL HISTORY OF problems with disc PMH - PAST MEDICAL HISTORY OF age 7 rheumatic fever PMH - PAST MEDICAL HISTORY OF syncope Spinal stenosis, unspecified region other than cervical lumbar Urinary incontinence PAST SURGICAL HISTORY Procedure Laterality Date ARTHRP ACETBLR/PROX FEM PROSTC AGRFT/ALGRFT Left 11/26/2017 Dr. Sukhjinder Lewis AVASTIN (BEVACIZUMAB) 1.25MG INTRAVITREAL INJECTION OD (RIGHT EYE) Right multiple COLONOSCOPY FLX DX W/COLLJ SPEC WHEN PFRMD 07/28/2007 DIR RPR ANEURYSM ABDOMINAL AORTA 04/20/2011 [facility] EYLEA (AFLIBERCEPT) 2MG INTRAVITREAL INJECTION OD (RIGHT EYE) Right 2017 x 3 INGUINAL HERNIA REPAIR HX Bilateral 06/12/2022 with mesh OTHER 10/28/2019 PTCA/BRYSON X2 in the saphenous vein graft to OM1. PAST SURGICAL HISTORY OF 09/1996 CABG PAST SURGICAL HISTORY OF 2004, 2016 Back PAST SURGICAL HISTORY OF cardiac cath PAST SURGICAL HISTORY OF 2004 right hip replacement PAST SURGICAL HISTORY OF 06/2007 surveillance cardiac cath PAST SURGICAL HISTORY OF 12/2009 Heart Cath PAST SURGICAL HISTORY OF Left 11/2017 Left Hip Surgery PERIPH ANEUR ARM KHADIJAH MAP INPT 2010 PRICARDIECTOMY STOT/COMPL W/CARDPULM BYPASS 1996 TONSILLECTOMY PRIMARY/SECONDARY Tonsillectomy XCAPSL CTRC RMVL INSJ IO LENS PROSTH W/O ECP Bilateral Cataract Extraction with PC IOL ALLERGIES Patient has no known allergies. MEDICATIONS lisinopril (ZESTRIL) 10 mg tablet Take 1 tablet by mouth once daily. Cholecalciferol, Vitamin D3, (VITAMIN D-3) 50 mcg (2,000 unit) cap Take 1 capsule by mouth once daily. tamsulosin (FLOMAX) 0.4 mg Take 2 capsules by mouth once daily. sertraline (ZOLOFT) 25 mg tablet Take 1 tablet by mouth once daily. finasteride (PROSCAR) 5 mg tablet Take 1 tablet by mouth once daily. cyanocobalamin 1,000 mcg/mL Inject 1 mL intramuscularly one time a week for 30 days, THEN 1 mL every 2 weeks. clopidogrel (PLAVIX) 75 mg tablet Take 1 tablet by mouth once daily. atenolol (TENORMIN) 50 mg tablet Take 1 tablet by mouth once daily. simvastatin (ZOCOR) 20 mg tablet Take 1 tablet by mouth daily at bedtime. triamcinolone acetonide (KENALOG) 0.1 % cream Apply 1 application to affected area two times a day. For eczema, Apply sparingly to area for rash/itching. omeprazole 20 mg capsule Take 20 mg by mouth once daily. Take one(1) tablet daily. FAMILY HISTORY Problem Relation Age of Onset Heart Mother age 60 [place], smoker None Father age 77 MVA Cataract Father No Known Problems Sister No Known Problems Brother No Known Problems (more content not included)... [facility] 12-14-2024 History of Present illness Narrative CC: Patient presents with: Vertigo: Dizziness x 1 day HPI Recording using [employer] software for draft documentation of the visit was discussed with the patient/authorized patient service representative; all questions welcomed and answered. Patient/authorized patient service representative agreed to proceed Daryn is a 84-year-old male, with a history of CABG, presenting with acute onset of vertigo and nausea. He is accompanied by his daughter, who is providing additional history. Daryn reports the onset of vertigo last night when he sat up from a supine position to use the bathroom. He describes the sensation as the room spinning and notes that the vertigo subsided after sitting in the bathroom for a while. He denies any previous similar episodes, though he recalls a mild episode years ago that did not require medical attention. He also reports a 2-month history of feeling clumsy when standing and moving, but denies any recent falls or head injuries. Daryn experiences nausea with the vertigo, but denies emesis, fever, chills, otalgia, ear pressure, tinnitus, cephalalgia, chest pain, palpitations, slurred speech, facial drooping, or numbness and tingling. He has not been sick recently and denies any changes in vision since the onset of vertigo. He is not completely blind, but has limited vision. Denies any recent hospitalization, new medications or dose changes. Daryn is on Plavix following a CABG and denies any current cardiac issues. His BP is elevated today and orthostatic vital signs were positive, he has not been monitoring his blood pressure at home. 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 Lower abdomen. BPH (benign prostatic hyperplasia) CAD (coronary artery disease) Diverticulosis of colon (without mention of hemorrhage) GERD (gastroesophageal reflux disease) Hyperlipidemia Hypertension Internal hemorrhoids without mention of complication Macular degeneration NSTEMI (non-ST elevated myocardial infarction) ([facility]) 10/28/2019 Osteoarthritis of left hip Paresthesia PMH - PAST MEDICAL HISTORY OF sood PMH - PAST MEDICAL HISTORY OF heart problems PMH - PAST MEDICAL HISTORY OF problems with disc PMH - PAST MEDICAL HISTORY OF age 7 rheumatic fever PMH - PAST MEDICAL HISTORY OF syncope Spinal stenosis, unspecified region other than cervical lumbar Urinary incontinence PAST SURGICAL HISTORY Procedure Laterality Date ARTHRP ACETBLR/PROX FEM PROSTC AGRFT/ALGRFT Left 11/26/2017 Dr. Sukhjinder Lewis AVASTIN (BEVACIZUMAB) 1.25MG INTRAVITREAL INJECTION OD (RIGHT EYE) Right multiple COLONOSCOPY FLX DX W/COLLJ SPEC WHEN PFRMD 07/28/2007 DIR RPR ANEURYSM ABDOMINAL AORTA 04/20/2011 [facility] EYLEA (AFLIBERCEPT) 2MG INTRAVITREAL INJECTION OD (RIGHT EYE) Right 2017 x 3 INGUINAL HERNIA REPAIR HX Bilateral 06/12/2022 with mesh OTHER 10/28/2019 PTCA/BRYSON X2 in the saphenous vein graft to OM1. PAST SURGICAL HISTORY OF 09/1996 CABG PAST SURGICAL HISTORY OF 2004, 2016 Back PAST SURGICAL HISTORY OF cardiac cath PAST SURGICAL HISTORY OF 2004 right hip replacement PAST SURGICAL HISTORY OF 06/2007 surveillance cardiac cath PAST SURGICAL HISTORY OF 12/2009 Heart Cath PAST SURGICAL HISTORY OF Left 11/2017 Left Hip Surgery PERIPH ANEUR ARM KHADIJAH MAP INPT 2010 PRICARDIECTOMY STOT/COMPL W/CARDPULM BYPASS 1996 TONSILLECTOMY PRIMARY/SECONDARY <AGE 11 age 8 Tonsillectomy XCAPSL CTRC RMVL INSJ IO LENS PROSTH W/O ECP Bilateral Cataract Extraction with PC IOL ALLERGIES Patient has no known allergies. MEDICATIONS lisinopril (ZESTRIL) 10 mg tablet Take 1 tablet by mouth once daily. Cholecalciferol, Vitamin D3, (VITAMIN D-3) 50 mcg (2,000 unit) cap Take 1 capsule by mouth once daily. tamsulosin (FLOMAX) 0.4 mg Take 2 capsules by mouth once daily. sertraline (ZOLOFT) 25 mg tablet Take 1 tablet by mouth once daily. finasteride (PROSCAR) 5 mg tablet Take 1 tablet by mouth once daily. cyanocobalamin 1,000 mcg/mL Inject 1 mL intramuscularly one time a week for 30 days, THEN 1 mL every 2 weeks. clopidogrel (PLAVIX) 75 mg tablet Take 1 tablet by mouth once daily. atenolol (TENORMIN) 50 mg tablet Take 1 tablet by mouth once daily. simvastatin (ZOCOR) 20 mg tablet Take 1 tablet by mouth daily at bedtime. triamcinolone acetonide (KENALOG) 0.1 % cream Apply 1 application to affected area two times a day. For eczema, Apply sparingly to area for rash/itching. omeprazole 20 mg capsule Take 20 mg by mouth once daily. Take one(1) tablet daily. FAMILY HISTORY Problem Relation Age of Onset Heart Mother age 60 [place], smoker None Father age 77 MVA Cataract Father No Known Problems Sister No Known Problems Brother No Known Problems Sister No Known Problems Sister No Known Problems Sister Coronary Artery Disease Brother Coronary Artery Disease Brother Social History Tobacco Use Smoking status: Former Current packs/day: 0.00 Types: Cigarettes Quit date: 05/27/1982 Years since quittin.5 Smokeless tobacco: Never Vaping Use Vaping status: Never Used Substance Use Topics Alcohol use: No Drug use: No BP 152/84 Pulse (!) 54 Resp 12 Wt 84.1 kg (185 lb 6.5 oz) SpO2 98% BMI 28.76 kg/m Physical Exam Vitals reviewed. Constitutional: General: He is not in acute distress. Appearance: He is ill-appearing. He is not toxic-appearing. HENT: Head: Normocephalic and atraumatic. Right Ear: Tympanic membrane normal. Left Ear: Tympanic membrane normal. Mouth/Throat: Lips: [place]. Mouth: Mucous membranes are moist. Pharynx: Oropharynx is clear. Eyes: Extraocular Movements: Extraocular movements intact. Conjunctiva/sclera: Conjunctivae normal. Pupils: Pupils are equal, round, and reactive to light. Neck: Vascular: No carotid bruit. Cardiovascular: Rate and Rhythm: Normal rate and regular rhythm. Pulses: Normal pulses. Heart sounds: Normal heart sounds. No murmur heard. Pulmonary: Effort: Pulmonary effort is normal. Breath sounds: Normal breath sounds. No wheezing, rhonchi or rales. Musculoskeletal: Right lower leg: No edema. Left lower leg: No edema. Skin: General: Skin is warm and dry. Neurological: General: No focal deficit present. Mental Status: He is alert and oriented to person, place, and time. Cranial Nerves: Cranial nerve deficit present. Motor: No weakness or tremor. Coordination: Rapid alternating movements normal. Gait: Gait abnormal. Deep Tendon Reflexes: Reflexes are normal and symmetric. Comments: Spearman-Hallpike- vertigo elicited with head turned to the right however nystagmus was absent Assessment/Plan 1. Vertigo (R42) Nausea and vomiting, unspecified vomiting type (R11.2) Onset of vertigo occurred last evening when transitioning from a supine to sitting position. Described as room spinning, accompanied by nausea but no emesis. No associated otalgia, tinnitus, or recent upper respiratory infections. Neurological exam revealed no abnormalities. Spearman-Hallpike maneuver elicited vertigo when head turned to the right but negative for nystagmus. Differential diagnosis includes BPPV and potential cerebrovascular accident (CVA) due to age and cardiac history. - Recommended immediate evaluation in the emergency department for further diagnostic workup, including CT scan of the brain to rule out CVA. Patient is stable for his daughter to transport him to [facility] ER - Discussed potential treatments for vertigo and nausea in the ED. 2. Gait disturbance (R26.9) Chronic mild gait instability reported over the past few months, no recent exacerbation. No recent falls or injuries. Neurological examination showed normal strength and reflexes. - Monitor gait stability; etiology unclear. - Follow-up with primary care physician to discuss ongoing gait issues. I spent a total of 30 minutes on the date of the service which included preparing to see the patient, [id number] patient care, completing clinical documentation, performing a medically appropriate examination, counseling and educating the patient/family/caregiver, and care coordination (not separately reported). Prescription instructions reviewed with patient as applicable. Potential red flag symptoms discussed with the patient. Reviewed appropriate action plan to take if red flag symptoms occur. Patient agreeable to treatment plan. Asha Hernandez APRN.MACHINIST APPRENTICE documented in this encounter [facility] 12-14-2024 Telephone encounter Note Pt's daughter calls to report that pt is having vertigo-spinning sensation/dizziness. Daughter reports this started last night. Daughter reports it is causing some imbalance. Daughter denies: N/V, fever, MCCLAIN, SOB, one-sided weakness, trouble speaking or forming words. Daughter reports she is not currently with pt but was with him this morning and was going back to pt. Appt scheduled for this morning. Debra Romero LPN [facility] 12-14-2024 Miscellaneous Notes Pt's daughter calls to report that pt is having vertigo-spinning sensation/dizziness. Daughter reports this started last night. Daughter reports it is causing some imbalance. Daughter denies: N/V, fever, MCCLAIN, SOB, one-sided weakness, trouble speaking or forming words. Daughter reports she is not currently with pt but was with him this morning and was going back to pt. Appt scheduled for this morning. Debra Romero LPN documented in this encounter [facility] 12-09-2024 Telephone encounter Note Prescription Refill Information The patient has been identified by name and date of : Yes Caregiver verified no other encounters exist for this prescription request: Yes Caregiver confirmed with patient/requestor that no other refills are due, in the near future, with this provider at this time: Yes The last office visit in the department: Does the patient have a future office visit with this provider/department: Yes Requested Prescriptions Pending Prescriptions Disp Refills lisinopril (ZESTRIL) 10 mg tablet 90 tablet 3 Sig: Take 1 tablet by mouth once daily. Sravanthi Mace December 09, 2024 2:48 PM [facility] 12-09-2024 Miscellaneous Notes Prescription Refill Information The patient has been identified by name and date of : Yes Caregiver verified no other encounters exist for this prescription request: Yes Caregiver confirmed with patient/requestor that no other refills are due, in the near future, with this provider at this time: Yes The last office visit in the department: Does the patient have a future office visit with this provider/department: Yes Requested Prescriptions Pending Prescriptions Disp Refills lisinopril (ZESTRIL) 10 mg tablet 90 tablet 3 Sig: Take 1 tablet by mouth once daily. Sravanthi Mace December 09, 2024 2:48 PM documented in this encounter [facility] 11-22-2024 Telephone encounter Note Patient has been identified by name and date of : Yes Patient phones for refill(s): Requested Prescriptions Pending Prescriptions Disp Refills Cholecalciferol, Vitamin D3, (VITAMIN D-3) 50 mcg (2,000 unit) cap 90 capsule 3 Sig: Take 1 capsule by mouth once daily. Date of last office visit in primary care: 06/30/2024 Date of next office visit in primary care: 12/27/2024 Please advise. Thank you. Vanessa Casillas. [facility] 11-22-2024 Miscellaneous Notes Patient has been identified by name and date of : Yes Patient phones for refill(s): Requested Prescriptions Pending Prescriptions Disp Refills Cholecalciferol, Vitamin D3, (VITAMIN D-3) 50 mcg (2,000 unit) cap 90 capsule 3 Sig: Take 1 capsule by mouth once daily. Date of last office visit in primary care: 06/30/2024 Date of next office visit in primary care: 12/27/2024 Please advise. Thank you. Vanessa Casillas. documented in this encounter [facility] 11-08-2024 Telephone encounter Note Prescription Refill Information The patient has been identified by name and date of : Yes Caregiver verified no other encounters exist for this prescription request: Yes Caregiver confirmed with patient/requestor that no other refills are due, in the near future, with this provider at this time: Yes The last office visit in the department: Does the patient have a future office visit with this provider/department: Yes Requested Prescriptions Pending Prescriptions Disp Refills tamsulosin (FLOMAX) 0.4 mg 180 capsule 3 Sig: Take 2 capsules by mouth once daily. Sravanthi Mace November 08, 2024 8:43 AM [facility] 11-08-2024 Miscellaneous Notes Prescription Refill Information The patient has been identified by name and date of : Yes Caregiver verified no other encounters exist for this prescription request: Yes Caregiver confirmed with patient/requestor that no other refills are due, in the near future, with this provider at this time: Yes The last office visit in the department: Does the patient have a future office visit with this provider/department: Yes Requested Prescriptions Pending Prescriptions Disp Refills tamsulosin (FLOMAX) 0.4 mg 180 capsule 3 Sig: Take 2 capsules by mouth once daily. Sravanthi Mace November 08, 2024 8:43 AM documented in this encounter [facility] 10-12-2024 Telephone encounter Note Letter signed on Nurse's desk 2nd floor. [facility] 10-12-2024 Miscellaneous Notes Letter signed on Nurse's desk 2nd floor. Okay for letter. 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 Please compose letter for me to review and sign Robel Onofre DO Shy is calling Robel Onofre DO today to request Letter (Blindness confirmation for taxes) Patient has been identified by name and birthdate. Duration of symptoms: N/A Person calling: daughter: Jadyn Lew patient at: [phone] Was an appointment scheduled: No Closing statement: Zenaida Mace documented in this encounter [facility] 10-12-2024 Telephone encounter Note Okay for letter. 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 Please compose letter for me to review and sign Robel Onofre DO [facility] 10-08-2024 Telephone encounter Note Shy is calling Robel Onofre DO today to request Letter (Blindness confirmation for taxes) Patient has been identified by name and birthdate. Duration of symptoms: N/A Person calling: daughter: Jadyn Lew patient at: [phone] Was an appointment scheduled: No Closing statement: Zenaida Mace [facility] Work Phone: 10-08-2024 Telephone encounter Note For your information: Patient's insurance is now [employer]. Daughter unable to supply further information. Will call back with info to update namita. [facility] 10-08-2024 Miscellaneous Notes For your information: Patient's insurance is now [employer]. Daughter unable to supply further information. Will call back with info to update namita. Prescription Refill Information The patient has been identified by name and date of : Yes Caregiver verified no other encounters exist for this prescription request: Yes Caregiver confirmed with patient/requestor that no other refills are due, in the near future, with this provider at this time: Yes The last office visit in the department: 06-30-24 Does the patient have a future office visit with this provider/department: Yes Requested Prescriptions Pending Prescriptions Disp Refills sertraline (ZOLOFT) 25 mg tablet 90 tablet 1 Sig: Take 1 tablet by mouth once daily. finasteride (PROSCAR) 5 mg tablet 90 tablet 3 Sig: Take 1 tablet by mouth once daily. Zenaida Mace October 08, 2024 8:15 AM documented in this encounter [facility] 10-08-2024 Telephone encounter Note Prescription Refill Information The patient has been identified by name and date of : Yes Caregiver verified no other encounters exist for this prescription request: Yes Caregiver confirmed with patient/requestor that no other refills are due, in the near future, with this provider at this time: Yes The last office visit in the department: 06-30-24 Does the patient have a future office visit with this provider/department: Yes Requested Prescriptions Pending Prescriptions Disp Refills sertraline (ZOLOFT) 25 mg tablet 90 tablet 1 Sig: Take 1 tablet by mouth once daily. finasteride (PROSCAR) 5 mg tablet 90 tablet 3 Sig: Take 1 tablet by mouth once daily. Zenaida Mace October 08, 2024 8:15 AM [facility] 09-02-2024 Telephone encounter Note Forms mailed to Jadyn's home address as requested. Copy placed in chart of forms. [facility] 09-02-2024 Miscellaneous Notes Forms mailed to Jadyn's home address as requested. Copy placed in chart of forms. Paperwork is complete now Robel Onofre DO Daughter calls to ask if form could be completed today as she is unexpectedly leaving to go out of town late this afternoon. Notified daughter that I was uncertain that letter would be completed that quickly. Daughter voices understanding and requests if can't be completed today to please send it to her in the mail at [address]. [place], [place] [address]. Shahla Sofia RN Type of form: Deaf and blind form Form received via walk in When form is completed, PhoneTina when complete.[phone] Form has been forwarded to Physician Desk: Dr. Kingston Kirk LPN documented in this encounter [facility] 09-01-2024 Telephone encounter Note Paperwork is complete now Robel Onofre DO [facility] 09-01-2024 Telephone encounter Note Daughter calls to ask if form could be completed today as she is unexpectedly leaving to go out of town late this afternoon. Notified daughter that I was uncertain that letter would be completed that quickly. Daughter voices understanding and requests if can't be completed today to please send it to her in the mail at [address], [place] [address]. Shahla Sofia RN [facility] 08-30-2024 Telephone encounter Note Type of form: Deaf and blind form Form received via walk in When form is completed, PhoneTina when complete.[phone] Form has been forwarded to Physician Desk: Dr. Kingston Kirk LPN [facility] 08-11-2024 Telephone encounter Note Prescription Refill Information The patient has been identified by name and date of : Yes Caregiver verified no other encounters exist for this prescription request: Yes Caregiver confirmed with patient/requestor that no other refills are due, in the near future, with this provider at this time: Yes The last office visit in the department: 06-30-24 Does the patient have a future office visit with this provider/department: Yes Requested Prescriptions Pending Prescriptions Disp Refills cyanocobalamin 1,000 mcg/mL 30 mL 1 Sig: Inject 1 mL intramuscularly one time a week for 30 days, THEN 1 mL every 2 weeks. Lorrie Mace August 11, 2024 10:59 AM [facility] 08-11-2024 Miscellaneous Notes Prescription Refill Information The patient has been identified by name and date of : Yes Caregiver verified no other encounters exist for this prescription request: Yes Caregiver confirmed with patient/requestor that no other refills are due, in the near future, with this provider at this time: Yes The last office visit in the department: 06-30-24 Does the patient have a future office visit with this provider/department: Yes Requested Prescriptions Pending Prescriptions Disp Refills cyanocobalamin 1,000 mcg/mL 30 mL 1 Sig: Inject 1 mL intramuscularly one time a week for 30 days, THEN 1 mL every 2 weeks. Lorrie Mace August 11, 2024 10:59 AM documented in this encounter [facility] 07-01-2024 Telephone encounter Note Patient notified and verbalized understanding. Kortney Bonner LPN [facility] 07-01-2024 Miscellaneous Notes Patient notified and verbalized understanding. Kortney Bonner LPN Please inform patient or daughters that his labs are overall stable. Urine has a little protein and is dark and concentrated. Needs to be drinking more water. Robel Onofre DO documented in this encounter [facility] 07-01-2024 Telephone encounter Note Please inform patient or daughters that his labs are overall stable. Urine has a little protein and is dark and concentrated. Needs to be drinking more water. Robel Onofre DO [facility] 06-30-2024 Note HNO ID: [id number] Author: ROBEL ONOFRE DO Service: ? Author Type: Physician Type: Progress Notes Filed: 06/30/2024 12:24 Note Text: CC: Todd Matamoros is a 84 year old male who presents to the office for follow up HPI: Macular degeneration, continues to progress, no new recent interventions received. Knows that this affects his functioning/abilities but still has been able to stay at home since he knows where everything is located etc. No falls. BPH, long standing, use of Flomax and Proscar with improvement/relief, symptoms much improved HTN, CAD, aortic aneurysm, well controlled pulse and BP, taking medications as prescribed. Continues to see [facility] for followup Iron deficiency, eating iron rich foods,no signs of bleeding. Last labs in November Mood, overall stable, taking Sertraline. Helps to care for his with dementia. Daughter feels he is doing well. Has fatigue, wondering if can try vitamin b12 injections PAST MEDICAL HISTORY Diagnosis Date Acute bronchitis Aneurysm of abdominal aorta ([facility]) 04/20/2011. Lower abdomen. BPH (benign prostatic hyperplasia) CAD (coronary artery disease) Diverticulosis of colon (without mention of hemorrhage) GERD (gastroesophageal reflux disease) Hyperlipidemia Hypertension Internal hemorrhoids without mention of complication Macular degeneration NSTEMI (non-ST elevated myocardial infarction) ([facility]) 10/28/2019 Osteoarthritis of left hip Paresthesia PMH - PAST MEDICAL HISTORY OF sood PMH - PAST MEDICAL HISTORY OF heart problems PMH - PAST MEDICAL HISTORY OF problems with disc PMH - PAST MEDICAL HISTORY OF age 7 rheumatic fever PMH - PAST MEDICAL HISTORY OF syncope Spinal stenosis, unspecified region other than cervical lumbar Urinary incontinence PAST SURGICAL HISTORY Procedure Laterality Date ARTHRP ACETBLR/PROX FEM PROSTC AGRFT/ALGRFT Left 11/26/2017 Dr. Sukhjinder Lewis AVASTIN (BEVACIZUMAB) 1.25MG INTRAVITREAL INJECTION OD (RIGHT EYE) Right multiple COLONOSCOPY FLX DX W/COLLJ SPEC WHEN PFRMD 07/28/2007 DIR RPR ANEURYSM ABDOMINAL AORTA 04/20/2011 [place] EYLEA (AFLIBERCEPT) 2MG INTRAVITREAL INJECTION OD (RIGHT EYE) Right 2017 x 3 INGUINAL HERNIA REPAIR HX Bilateral 06/12/2022 with mesh OTHER 10/28/2019 PTCA/BRYSON X2 in the saphenous vein graft to OM1. PAST SURGICAL HISTORY OF 09/1996 CABG PAST SURGICAL HISTORY OF 2004, 2017 Back PAST SURGICAL HISTORY OF cardiac cath PAST SURGICAL HISTORY OF 2004 right hip replacement PAST SURGICAL HISTORY OF 06/2007 surveillance cardiac cath PAST SURGICAL HISTORY OF 12/2009 Heart Cath PAST SURGICAL HISTORY OF Left 11/2017 Left Hip Surgery PERIPH ANEUR ARM [facility]AH MAP INPT 2010 PRICARDIECTOMY STOT/COMPL W/CARDPULM BYPASS 1996 TONSILLECTOMY PRIMARY/SECONDARY Tonsillectomy XCAPSL CTRC RMVL INSJ IO LENS PROSTH W/O ECP Bilateral Cataract Extraction with PC IOL Current Outpatient Medications Medication Sig sertraline (ZOLOFT) 25 mg tablet Take 1 tablet by mouth once daily. simvastatin (ZOCOR) 20 mg tablet Take 1 tablet by mouth daily at bedtime. lisinopril (ZESTRIL) 10 mg tablet Take 1 tablet by mouth once daily. Cholecalciferol, Vitamin D3, (VITAMIN D-3) 50 mcg (2,000 unit) cap Take 1 capsule by mouth once daily. cyanocobalamin (VITAMIN B-12) 1,000 mcg tab Take 1 tablet by mouth once daily. finasteride (PROSCAR) 5 mg tablet Take 1 tablet by mouth once daily. tamsulosin (FLOMAX) 0.4 mg Take 2 capsules by mouth once daily. triamcinolone acetonide (KENALOG) 0.1 % cream Apply 1 application to affected area two times a day. For eczema, Apply sparingly to area for rash/itching. atenolol (TENORMIN) 50 mg tablet Take 1 tablet by mouth once daily. clopidogrel (PLAVIX) 75 mg tablet Take 1 tablet by mouth once daily. omeprazole 20 mg capsule Take 20 mg by mouth once daily. Take one(1) tablet daily. No current facility-administered medications for this visit. ALLERGIES No Known Allergies Social History Tobacco Use Smoking status: Former Current packs/day: 0.00 Types: Cigarettes Quit date: 05/27/1982 Years since quittin.1 Smokeless tobacco: Never Vaping Use Vaping status: Never Used Substance Use Topics Alcohol use: No Drug use: No ROS: See HPI PE: There were no vitals taken for this visit. Gen: AANDO, NAD, non-toxic appearing, Pleasant, cooperative HEENT: NT/AC, PERRLA, EOMs intact b/l, visually impaired, nares clear and patent b/l, pharynx without erythema, exudate or lesions, MMM. Uvula midline. EACs without erythema or debris. TMs pearly mcarthur with intact landmarks b/l. Neck: supple, No cervical LAD, no thyromegaly, no carotid bruits CV: RRR, normal S1 and S2, no murmurs, no gallops, no rubs, Pulses 2+ and symmetric in UE and LE b/l Lungs: normal respiratory effort, CTA b/l, no wheezing or rhonchi or rales Abd: soft, NT, ND, +BS, no hepatosplenomegaly MS: FROM all 4 extremities Ne (more content not included)... [facility] 06-30-2024 History of Present illness Narrative CC: Todd Matamoros is a 84 year old male who presents to the office for follow up HPI: Macular degeneration, continues to progress, no new recent interventions received. Knows that this affects his functioning/abilities but still has been able to stay at home since he knows where everything is located etc. No falls. BPH, long standing, use of Flomax and Proscar with improvement/relief, symptoms much improved HTN, CAD, aortic aneurysm, well controlled pulse and BP, taking medications as prescribed. Continues to see [facility] for followup Iron deficiency, eating iron rich foods,no signs of bleeding. Last labs in November Mood, overall stable, taking Sertraline. Helps to care for his with dementia. Daughter feels he is doing well. Has fatigue, wondering if can try vitamin b12 injections PAST MEDICAL HISTORY Diagnosis Date Acute bronchitis Aneurysm of abdominal aorta ([facility]) 04/20/2011. Lower abdomen. BPH (benign prostatic hyperplasia) CAD (coronary artery disease) Diverticulosis of colon (without mention of hemorrhage) GERD (gastroesophageal reflux disease) Hyperlipidemia Hypertension Internal hemorrhoids without mention of complication Macular degeneration NSTEMI (non-ST elevated myocardial infarction) ([facility]) 10/28/2019 Osteoarthritis of left hip Paresthesia PMH - PAST MEDICAL HISTORY OF sood PMH - PAST MEDICAL HISTORY OF heart problems PMH - PAST MEDICAL HISTORY OF problems with disc PMH - PAST MEDICAL HISTORY OF age 7 rheumatic fever PMH - PAST MEDICAL HISTORY OF syncope Spinal stenosis, unspecified region other than cervical lumbar Urinary incontinence PAST SURGICAL HISTORY Procedure Laterality Date ARTHRP ACETBLR/PROX FEM PROSTC AGRFT/ALGRFT Left 11/26/2017 Dr. Sukhjinder Lewis AVASTIN (BEVACIZUMAB) 1.25MG INTRAVITREAL INJECTION OD (RIGHT EYE) Right multiple COLONOSCOPY FLX DX W/COLLJ SPEC WHEN PFRMD 07/28/2007 DIR RPR ANEURYSM ABDOMINAL AORTA 04/20/2011 [place] EYLEA (AFLIBERCEPT) 2MG INTRAVITREAL INJECTION OD (RIGHT EYE) Right 2017 x 3 INGUINAL HERNIA REPAIR HX Bilateral 06/12/2022 with mesh OTHER 10/28/2019 PTCA/BRYSON X2 in the saphenous vein graft to OM1. PAST SURGICAL HISTORY OF 09/1996 CABG PAST SURGICAL HISTORY OF 2004, 2016 Back PAST SURGICAL HISTORY OF cardiac cath PAST SURGICAL HISTORY OF 2004 right hip replacement PAST SURGICAL HISTORY OF 06/2007 surveillance cardiac cath PAST SURGICAL HISTORY OF 12/2009 Heart Cath PAST SURGICAL HISTORY OF Left 11/2017 Left Hip Surgery PERIPH ANEUR ARM [facility]ADIJAH MAP INPT 2010 PRICARDIECTOMY STOT/COMPL W/CARDPULM BYPASS 1996 TONSILLECTOMY PRIMARY/SECONDARY <AGE 11 age 8 Tonsillectomy XCAPSL CTRC RMVL INSJ IO LENS PROSTH W/O ECP Bilateral Cataract Extraction with PC IOL Current Outpatient Medications Medication Sig sertraline (ZOLOFT) 25 mg tablet Take 1 tablet by mouth once daily. simvastatin (ZOCOR) 20 mg tablet Take 1 tablet by mouth daily at bedtime. lisinopril (ZESTRIL) 10 mg tablet Take 1 tablet by mouth once daily. Cholecalciferol, Vitamin D3, (VITAMIN D-3) 50 mcg (2,000 unit) cap Take 1 capsule by mouth once daily. cyanocobalamin (VITAMIN B-12) 1,000 mcg tab Take 1 tablet by mouth once daily. finasteride (PROSCAR) 5 mg tablet Take 1 tablet by mouth once daily. tamsulosin (FLOMAX) 0.4 mg Take 2 capsules by mouth once daily. triamcinolone acetonide (KENALOG) 0.1 % cream Apply 1 application to affected area two times a day. For eczema, Apply sparingly to area for rash/itching. atenolol (TENORMIN) 50 mg tablet Take 1 tablet by mouth once daily. clopidogrel (PLAVIX) 75 mg tablet Take 1 tablet by mouth once daily. omeprazole 20 mg capsule Take 20 mg by mouth once daily. Take one(1) tablet daily. No current facility-administered medications for this visit. ALLERGIES No Known Allergies Social History Tobacco Use Smoking status: Former Current packs/day: 0.00 Types: Cigarettes Quit date: 05/27/1982 Years since quittin.1 Smokeless tobacco: Never Vaping Use Vaping status: Never Used Substance Use Topics Alcohol use: No Drug use: No ROS: See HPI PE: There were no vitals taken for this visit. Gen: A&O, NAD, non-toxic appearing, Pleasant, cooperative HEENT: NT/AC, PERRLA, EOMs intact b/l, visually impaired, nares clear and patent b/l, pharynx without erythema, exudate or lesions, MMM. Uvula midline. EACs without erythema or debris. TMs pearly mcarthur with intact landmarks b/l. Neck: supple, No cervical LAD, no thyromegaly, no carotid bruits CV: RRR, normal S1 and S2, no murmurs, no gallops, no rubs, Pulses 2+ and symmetric in UE and LE b/l Lungs: normal respiratory effort, CTA b/l, no wheezing or rhonchi or rales Abd: soft, NT, ND, +BS, no hepatosplenomegaly MS: FROM all 4 extremities Neuro: CN II-XII intact b/l, strength 5/5 b/l UE and LE, DTRs 2/4 UE and LE, sensation intact. Skin: warm, dry, intact, actinic keratosis x 1 on left superior helix, x 1 on right superior helix, x 3 on mid upper chest wall, x1 on right helix No edema, normal pulses ASSESSMENT/PLAN: 1. Hypertension, essential - ICD9: 401.9, ICD10: I10 (primary diagnosis) - Controlled - Continue current medications - Recommend home blood pressure monitoring, to bring results to next visit - Encouraged sodium restriction, DASH or Mediterranean diet - Recommend regular aerobic exercise - COMPREHENSIVE METABOLIC PANEL - COMPLETE BLOOD COUNT AND DIFFERENTIAL 2. Need for influenza vaccination - ICD9: V04.81, ICD10: Z23 - INFLUENZA VACCINE, PRSV FREE, AGE 65+ YR, HIGH DOSE, TRIVALENT (FLUZONE HIGH-DOSE) 3. Vitamin D deficiency - ICD9: 268.9, ICD10: E55.9 Continue supplement Has fatigue - VITAMIN D 25 HYDROXY 4. Vitamin B12 deficiency - ICD9: 266.2, ICD10: E53.8 Add on vitamin B12 IM injections - VITAMIN B12 - CYANOCOBALAMIN (VIT B-12) 1,000 MCG/ML INJECTION SOLUTION 5. Thrombocytopenia (HCC) - ICD9: 287.5, ICD10: D69.6 stable 6. Macular degeneration of both eyes, unspecified type - ICD9: 362.50, ICD10: H35.30 Slowly worsening, no new falls. Needs to start with use of a cane and strengthening exercises 7. Familial hypercholesterolemia - ICD9: 272.0, ICD10: E78.01 Continue supplement - LIPID PANEL, NONFASTING - MAGNESIUM 8. BPH associated with nocturia - ICD9: 600.01, 788.43, ICD10: N40.1, R35.1 Recheck labs and UA - URINALYSIS, WITH MICROSCOPIC 9. Borderline abnormal thyroid function test - ICD9: 794.5, ICD10: R94.6 - Instructed patient on importance of taking on an empty stomach either first thing in the morning or at bedtime. - THYROID STIMULATING HORMONE 10. Hyperglycemia - ICD9: 790.29, ICD10: R73.9 Recheck labs. - HEMOGLOBIN A1C 11. Other depression - ICD9: 311, ICD10: F32.89 stable Robel Onofre DO Return if no improvement. Follow up with Robel Onofre DO. To ER if develops chest pain, shortness of breath. Discussed risks, benefits, alternatives, and potential side effects of medications. Patient/Guardian expressed understanding and agreed with the plan. See patient instructions. Robel Onofre DO [address] [place] [address] documented in this encounter [facility] 05-04-2024 Telephone encounter Note Prescription Refill Information The patient has been identified by name and date of : Yes Caregiver verified no other encounters exist for this prescription request: Yes Caregiver confirmed with patient/requestor that no other refills are due, in the near future, with this provider at this time: Yes The last office visit in the department: 03-10-24 Does the patient have a future office visit with this provider/department: Yes Requested Prescriptions Pending Prescriptions Disp Refills sertraline (ZOLOFT) 25 mg tablet 90 tablet 1 Sig: Take 1 tablet by mouth once daily. Zenaida Mace May 04, 2024 11:46 AM [facility] 05-04-2024 Miscellaneous Notes Prescription Refill Information The patient has been identified by name and date of : Yes Caregiver verified no other encounters exist for this prescription request: Yes Caregiver confirmed with patient/requestor that no other refills are due, in the near future, with this provider at this time: Yes The last office visit in the department: 03-10-24 Does the patient have a future office visit with this provider/department: Yes Requested Prescriptions Pending Prescriptions Disp Refills sertraline (ZOLOFT) 25 mg tablet 90 tablet 1 Sig: Take 1 tablet by mouth once daily. Zenaida Mace May 04, 2024 11:46 AM documented in this encounter [facility] 03-10-2024 History of Present illness Narrative Chief Complaint Patient presents with: Medication Follow-up MOHAMUD Matamoros is a 83 year old male who presents here today for Above Complaints.. Per visit with myself on 02/04/2024: MOHAMUD Matamoros is a 83 year old male who presents here today for Above Complaints. Accompanied today by his daughter Jadyn. Depression-had 2 bad days, about 2 weeks ago. Is unable to describe what a bad day is. Feels that overall he doesn't have depression, states he feels good today. 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 Now he feels that he cannot do any of these. Patient's lives at home with him-they have been 66 years-has dementia and this is hard on him to experience the degeneration but also that it is difficult to take care of her and he wishes he could be more helpful. Denies SI/HI, but does state on his 2 bad days did think that things would be better if he were not here. Denies he would ever harm himself. Feels blessed with his large extended family and health. ASSESSMENT/PLAN: 1. Feelings of worthlessness - ICD9: 799.29, ICD10: R45.89 (primary diagnosis) Begin sertraline daily at bedtime. Discussed with patient and daughter expected action of the medication follow up in the office in 4-6 weeks. - SERTRALINE 25 MG TABLET 2. Stress - ICD9: V62.89, ICD10: F43.9 Begin sertraline daily at bedtime. Discussed with patient and daughter expected action of the medication follow up in the office in 4-6 weeks. - SERTRALINE 25 MG TABLET 3. Lack of motivation - ICD9: V49.89, ICD10: Z91.89 Begin sertraline daily at bedtime. Discussed with patient and daughter expected action of the medication follow up in the office in 4-6 weeks. - SERTRALINE 25 MG TABLET 4. Other depression - ICD9: 311, ICD10: F32.89 Begin sertraline daily at bedtime. Discussed with patient and daughter expected action of the medication follow up in the office in 4-6 weeks. - SERTRALINE 25 MG TABLET 5. Macular degeneration of both eyes, unspecified type - ICD9: 362.50, ICD10: H35.30 Begin sertraline daily at bedtime. Discussed with patient and daughter expected action of the medication follow up in the office in 4-6 weeks. - SERTRALINE 25 MG TABLET 6. Bilateral hearing loss, unspecified hearing loss type - ICD9: 389.9, ICD10: H91.93 Begin sertraline daily at bedtime. Discussed with patient and daughter expected action of the medication follow up in the office in 4-6 weeks. - SERTRALINE 25 MG TABLET Bessie Ambrocio APRN.MACHINIST APPRENTICE Currently: Accompanied by daughter Zulema today. Mood-significant improvement. Denies SI/HI. Less feelings of being down, feeling worthless, overwhelmed. Tolerating Zoloft 25mg well, denies side effects. Would like to continue this medication. Past medical history, appointments, medications, allergies reviewed. Previous Medical History PAST MEDICAL HISTORY Diagnosis Date Acute bronchitis Aneurysm of abdominal aorta (HCC) 04/20/2011. Lower abdomen. BPH (benign prostatic hyperplasia) CAD (coronary artery disease) Diverticulosis of colon (without mention of hemorrhage) GERD (gastroesophageal reflux disease) Hyperlipidemia Hypertension Internal hemorrhoids without mention of complication Macular degeneration NSTEMI (non-ST elevated myocardial infarction) ([facility]) 10/28/2019 Osteoarthritis of left hip Paresthesia PMH - PAST MEDICAL HISTORY OF sood PMH - PAST MEDICAL HISTORY OF heart problems PMH - PAST MEDICAL HISTORY OF problems with disc PMH - PAST MEDICAL HISTORY OF age 7 rheumatic fever PMH - PAST MEDICAL HISTORY OF syncope Spinal stenosis, unspecified region other than cervical lumbar Urinary incontinence Previous Surgical History PAST SURGICAL HISTORY Procedure Laterality Date ARTHRP ACETBLR/PROX FEM PROSTC AGRFT/ALGRFT Left 11/26/2017 Dr. Sukhjinder Lewis AVASTIN (BEVACIZUMAB) 1.25MG INTRAVITREAL INJECTION OD (RIGHT EYE) Right multiple COLONOSCOPY FLX DX W/COLLJ SPEC WHEN PFRMD 07/28/2007 DIR RPR ANEURYSM ABDOMINAL AORTA 04/20/2011 [facility] EYLEA (AFLIBERCEPT) 2MG INTRAVITREAL INJECTION OD (RIGHT EYE) Right 2017 x 3 INGUINAL HERNIA REPAIR HX Bilateral 06/12/2022 with mesh OTHER 10/28/2019 PTCA/BRYSON X2 in the saphenous vein graft to OM1. PAST SURGICAL HISTORY OF 09/1996 CABG PAST SURGICAL HISTORY OF 2004, 2016 Back PAST SURGICAL HISTORY OF cardiac cath PAST SURGICAL HISTORY OF 2004 right hip replacement PAST SURGICAL HISTORY OF 06/2007 surveillance cardiac cath PAST SURGICAL HISTORY OF 12/2009 Heart Cath PAST SURGICAL HISTORY OF Left 11/2017 Left Hip Surgery PERIPH ANEUR ARM KHADIJAH MAP INPT 2010 PRICARDIECTOMY STOT/COMPL W/CARDPULM BYPASS 1996 TONSILLECTOMY PRIMARY/SECONDARY <AGE 11 age 8 Tonsillectomy XCAPSL CTRC RMVL INSJ IO LENS PROSTH W/O ECP Bilateral Cataract Extraction with PC IOL Family History FAMILY HISTORY Problem Relation Age of Onset Heart Mother age 60 [place], smoker None Father age 77 MVA Cataract Father No Known Problems Sister No Known Problems Brother No Known Problems Sister No Known Problems Sister No Known Problems Sister Coronary Artery Disease Brother Coronary Artery Disease Brother Patient Allergies ALLERGIES No Known Allergies Current Medications Current Outpatient Medications on File Prior to Visit Medication Sig sertraline (ZOLOFT) 25 mg tablet Take 1 tablet by mouth once daily for 14 days, THEN 2 tablets once daily. (Patient taking differently: Take 1 tablet by mouth once daily for 14 days, THEN 2 tablets once daily. ) simvastatin (ZOCOR) 20 mg tablet Take 1 tablet by mouth daily at bedtime. lisinopril (ZESTRIL) 10 mg tablet Take 1 tablet by mouth once daily. Cholecalciferol, Vitamin D3, (VITAMIN D-3) 50 mcg (2,000 unit) cap Take 1 capsule by mouth once daily. cyanocobalamin (VITAMIN B-12) 1,000 mcg tab Take 1 tablet by mouth once daily. finasteride (PROSCAR) 5 mg tablet Take 1 tablet by mouth once daily. tamsulosin (FLOMAX) 0.4 mg Take 2 capsules by mouth once daily. triamcinolone acetonide (KENALOG) 0.1 % cream Apply 1 application to affected area two times a day. For eczema, Apply sparingly to area for rash/itching. atenolol (TENORMIN) 50 mg tablet Take 1 tablet by mouth once daily. clopidogrel (PLAVIX) 75 mg tablet Take 1 tablet by mouth once daily. omeprazole 20 mg capsule Take 20 mg by mouth once daily. Take one(1) tablet daily. No current facility-administered medications on file prior to visit. Social History Social History Tobacco Use Smoking status: Former Types: Cigarettes Quit date: 05/27/1982 Years since quittin.8 Smokeless tobacco: Never Vaping Use Vaping Use: Never used Substance Use Topics Alcohol use: No Drug use: No Review of Symptoms REVIEW OF SYSTEMS See HPI, otherwise negative EXAM: BP 136/78 (BP Site: Left Arm, BP Position: Sitting, BP Cuff Size: Regular Adult) Pulse (!) 55 Resp 18 Wt 81.1 kg (178 lb 12.8 oz) SpO2 96% BMI 27.74 kg/m General Appearance: Well appearing, alert, in no acute distress, well-hydrated, well nourished. [place]. Psychiatric: pleasant, cooperative. Health Maintenance List DTaP,Tdap,Td Vaccine(1 - Tdap) Never done RSV Vaccine(1 - 1-dose 60+ series) Never done Covid-19 Vaccine( season) due on 04/25/2023 Advance Directive Discussion Never done Influenza Vaccine(1) due on 04/25/2024 LDL Cholesterol due on 01/13/2025 Diabetes Screening due on 01/13/2027 Shingrix Vaccine Completed Pneumococcal Vaccine: 65+ Completed Data reviewed Previous records, office notes ASSESSMENT/PLAN: 1. Feelings of worthlessness - ICD9: 799.29, ICD10: R45.89 (primary diagnosis) Continue current sertraline nightly. Has appt scheduled with PCP Dr. Onofre in June, she will review medication during that appointment. - SERTRALINE 25 MG TABLET 2. Stress - ICD9: V62.89, ICD10: F43.9 Continue current sertraline nightly. Has appt scheduled with PCP Dr. Onofre in June, she will review medication during that appointment. - SERTRALINE 25 MG TABLET 3. Lack of motivation - ICD9: V49.89, ICD10: Z91.89 Continue current sertraline nightly. Has appt scheduled with PCP Dr. Onofre in June, she will review medication during that appointment. - SERTRALINE 25 MG TABLET 4. Other depression - ICD9: 311, ICD10: F32.89 Continue current sertraline nightly. Has appt scheduled with PCP Dr. Onofre in June, she will review medication during that appointment. - SERTRALINE 25 MG TABLET Bessie Ambrocio APRN.MACHINIST APPRENTICE documented in this encounter [facility] 02-04-2024 History of Present illness Narrative Chief Complaint Patient presents with: Depression HPI Todd Matamoros is a 83 year old male who presents here today for Above Complaints. Accompanied today by his daughter Jadyn. Depression-had 2 bad days, about 2 weeks ago. Is unable to describe what a bad day is. Feels that overall he doesn't have depression, states he feels good today. 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 Now he feels that he cannot do any of these. Patient's lives at home with him-they have been 66 years-has dementia and this is hard on him to experience the degeneration but also that it is difficult to take care of her and he wishes he could be more helpful. Denies SI/HI, but does state on his 2 bad days did think that things would be better if he were not here. Denies he would ever harm himself. Feels blessed with his large extended family and health. Past medical history, appointments, medications, allergies reviewed. Previous Medical History PAST MEDICAL HISTORY Diagnosis Date Acute bronchitis Aneurysm of abdominal aorta ([facility]) 04/20/2011. Lower abdomen. BPH (benign prostatic hyperplasia) CAD (coronary artery disease) Diverticulosis of colon (without mention of hemorrhage) GERD (gastroesophageal reflux disease) Hyperlipidemia Hypertension Internal hemorrhoids without mention of complication Macular degeneration NSTEMI (non-ST elevated myocardial infarction) ([facility]) 10/28/2019 Osteoarthritis of left hip Paresthesia PMH - PAST MEDICAL HISTORY OF sood PMH - PAST MEDICAL HISTORY OF heart problems PMH - PAST MEDICAL HISTORY OF problems with disc PMH - PAST MEDICAL HISTORY OF age 7 rheumatic fever PMH - PAST MEDICAL HISTORY OF syncope Spinal stenosis, unspecified region other than cervical lumbar Urinary incontinence Previous Surgical History PAST SURGICAL HISTORY Procedure Laterality Date ARTHRP ACETBLR/PROX FEM PROSTC AGRFT/ALGRFT Left 11/26/2017 Dr. Sukhjinder Lewis AVASTIN (BEVACIZUMAB) 1.25MG INTRAVITREAL INJECTION OD (RIGHT EYE) Right multiple COLONOSCOPY FLX DX W/COLLJ SPEC WHEN PFRMD 07/28/2007 DIR RPR ANEURYSM ABDOMINAL AORTA 04/20/2011 [place] EYLEA (AFLIBERCEPT) 2MG INTRAVITREAL INJECTION OD (RIGHT EYE) Right 2017 x 3 INGUINAL HERNIA REPAIR HX Bilateral 06/12/2022 with mesh OTHER 10/28/2019 PTCA/BRYSON X2 in the saphenous vein graft to OM1. PAST SURGICAL HISTORY OF 09/1996 CABG PAST SURGICAL HISTORY OF 2004, 2016 Back PAST SURGICAL HISTORY OF cardiac cath PAST SURGICAL HISTORY OF 2004 right hip replacement PAST SURGICAL HISTORY OF 06/2007 surveillance cardiac cath PAST SURGICAL HISTORY OF 12/2009 Heart Cath PAST SURGICAL HISTORY OF Left 11/2017 Left Hip Surgery PERIPH ANEUR ARM KHADIJAH MAP INPT 2010 PRICARDIECTOMY STOT/COMPL W/CARDPULM BYPASS 1996 TONSILLECTOMY PRIMARY/SECONDARY <AGE 11 age 8 Tonsillectomy XCAPSL CTRC RMVL INSJ IO LENS PROSTH W/O ECP Bilateral Cataract Extraction with PC IOL Family History FAMILY HISTORY Problem Relation Age of Onset Heart Mother age 60 [place], smoker None Father age 77 MVA Cataract Father No Known Problems Sister No Known Problems Brother No Known Problems Sister No Known Problems Sister No Known Problems Sister Coronary Artery Disease Brother Coronary Artery Disease Brother Patient Allergies ALLERGIES No Known Allergies Current Medications Current Outpatient Medications on File Prior to Visit Medication Sig simvastatin (ZOCOR) 20 mg tablet Take 1 tablet by mouth daily at bedtime. lisinopril (ZESTRIL) 10 mg tablet Take 1 tablet by mouth once daily. Cholecalciferol, Vitamin D3, (VITAMIN D-3) 50 mcg (2,000 unit) cap Take 1 capsule by mouth once daily. cyanocobalamin (VITAMIN B-12) 1,000 mcg tab Take 1 tablet by mouth once daily. finasteride (PROSCAR) 5 mg tablet Take 1 tablet by mouth once daily. tamsulosin (FLOMAX) 0.4 mg Take 2 capsules by mouth once daily. triamcinolone acetonide (KENALOG) 0.1 % cream Apply 1 application to affected area two times a day. For eczema, Apply sparingly to area for rash/itching. atenolol (TENORMIN) 50 mg tablet Take 1 tablet by mouth once daily. clopidogrel (PLAVIX) 75 mg tablet Take 1 tablet by mouth once daily. omeprazole 20 mg capsule Take 20 mg by mouth once daily. Take one(1) tablet daily. No current facility-administered medications on file prior to visit. Social History Social History Tobacco Use Smoking status: Former Types: Cigarettes Quit date: 05/27/1982 Years since quittin.7 Smokeless tobacco: Never Vaping Use Vaping Use: Never used Substance Use Topics Alcohol use: No Drug use: No Review of Symptoms REVIEW OF SYSTEMS See HPI, otherwise negative EXAM: BP 122/80 (BP Site: Left Arm, BP Position: Sitting, BP Cuff Size: Regular Adult) Pulse (!) 52 Resp 20 Wt 80.9 kg (178 lb 6.4 oz) SpO2 96% BMI 27.67 kg/m General Appearance: Well appearing, alert, in no acute distress, well-hydrated, well nourished. [place], significantly decreased sight.. Lungs: Lungs clear to auscultation. No wheezing, rhonchi, rales.. Heart: RRR without murmur, gallop, or rubs. No ectopy. Psychiatric: pleasant, cooperative. Health Maintenance List DTaP,Tdap,Td Vaccine(1 - Tdap) Never done RSV Vaccine(1 - 1-dose 60+ series) Never done Covid-19 Vaccine( season) due on 04/25/2023 Advance Directive Discussion Never done LDL Cholesterol due on 01/13/2025 Diabetes Screening due on 01/13/2027 Influenza Vaccine Completed Shingrix Vaccine Completed Pneumococcal Vaccine: 65+ Completed Data reviewed Previous records, office notes ASSESSMENT/PLAN: 1. Feelings of worthlessness - ICD9: 799.29, ICD10: R45.89 (primary diagnosis) Begin sertraline daily at bedtime. Discussed with patient and daughter expected action of the medication follow up in the office in 4-6 weeks. - SERTRALINE 25 MG TABLET 2. Stress - ICD9: V62.89, ICD10: F43.9 Begin sertraline daily at bedtime. Discussed with patient and daughter expected action of the medication follow up in the office in 4-6 weeks. - SERTRALINE 25 MG TABLET 3. Lack of motivation - ICD9: V49.89, ICD10: Z91.89 Begin sertraline daily at bedtime. Discussed with patient and daughter expected action of the medication follow up in the office in 4-6 weeks. - SERTRALINE 25 MG TABLET 4. Other depression - ICD9: 311, ICD10: F32.89 Begin sertraline daily at bedtime. Discussed with patient and daughter expected action of the medication follow up in the office in 4-6 weeks. - SERTRALINE 25 MG TABLET 5. Macular degeneration of both eyes, unspecified type - ICD9: 362.50, ICD10: H35.30 Begin sertraline daily at bedtime. Discussed with patient and daughter expected action of the medication follow up in the office in 4-6 weeks. - SERTRALINE 25 MG TABLET 6. Bilateral hearing loss, unspecified hearing loss type - ICD9: 389.9, ICD10: H91.93 Begin sertraline daily at bedtime. Discussed with patient and daughter expected action of the medication follow up in the office in 4-6 weeks. - SERTRALINE 25 MG TABLET Bessie Ambrocio APRN.CNP\ documented in this encounter [facility] 01-26-2024 Telephone encounter Note Spoke to daughter patient was scheduled. Did make 40 min due to multiple concerns Abby Hardy MA [facility] 01-26-2024 Miscellaneous Notes Spoke to daughter patient was scheduled. Did make 40 min due to multiple concerns Abby Hardy MA Needs appointment to assess and discuss. Thank you, Cat Foote APRN.MACHINIST APPRENTICE Patient's daughter Jadyn calling stating that patient has been having issues with depression that seems to be getting worse due to 's worsening symptoms of dementia. Jadyn states that Todd is ready to try medication for this and is wondering if something could be sent to pharmacy. Please call Jadyn back once addressed. documented in this encounter [facility] 01-26-2024 Telephone encounter Note Needs appointment to assess and discuss. Thank you, Cat Foote APRN.MACHINIST APPRENTICE [facility] 01-26-2024 Telephone encounter Note Patient's daughter Jadyn calling stating that patient has been having issues with depression that seems to be getting worse due to 's worsening symptoms of dementia. Jadyn states that Todd is ready to try medication for this and is wondering if something could be sent to pharmacy. Please call Jadyn back once addressed. [facility] 01-16-2024 Telephone encounter Note TC to patients daughter Jadyn who is listed in chart to receive medical information. Jadyn verbalized understanding of providers message and has no questions at this time. MINA Myers [facility] 01-16-2024 Miscellaneous Notes TC to patients daughter Jadyn who is listed in chart to receive medical information. Jadyn verbalized understanding of providers message and has no questions at this time. MINA Myers Please let him know that overall his labs look much better, improved from previous labs. Now alkaline phosphatase is normal. Renal and liver function is normal. Triglycerides are just slightly high which is related to fatty meat and sugars. Cut back on this if able Robel Onofre DO documented in this encounter [facility] 01-16-2024 Telephone encounter Note Please let him know that overall his labs look much better, improved from previous labs. Now alkaline phosphatase is normal. Renal and liver function is normal. Triglycerides are just slightly high which is related to fatty meat and sugars. Cut back on this if able Robel Onofre DO [facility] 01-01-2024 Telephone encounter Note Jadyn- Daughter notified and verbalized understanding. Marylu Villanueva MA [facility] 01-01-2024 Miscellaneous Notes Jadyn- Daughter notified and verbalized understanding. Marylu Villanueva MA Please call patient and let him know that his recent labs show that his 1 liver enzyme called alkaline phosphatase is sligthly high and his serum creatinine is also slightly high. I would like him to increase his electrolyte rich water intake to at least 60-80 oz a day and recheck labs in 2 weeks. Robel Onofre DO documented in this encounter [facility] 01-01-2024 Telephone encounter Note Please call patient and let him know that his recent labs show that his 1 liver enzyme called alkaline phosphatase is sligthly high and his serum creatinine is also slightly high. I would like him to increase his electrolyte rich water intake to at least 60-80 oz a day and recheck labs in 2 weeks. Robel Onofre DO [facility] 12-22-2023 History of Present illness Narrative CC: Todd Matamoros is a 83 year old male who presents to the office for follow up HPI: Macular degeneration, continues to progress, no new recent interventions received. Knows that this affects his functioning/abilities but still has been able to stay at home since he knows where everything is located etc. No falls. BPH, long standing, use of Flomax and Proscar with improvement/relief, symptoms much improved HTN, CAD, aortic aneurysm, well controlled pulse and BP, taking medications as prescribed. Continues to see [facility] for followup Iron deficiency, eating iron rich foods,no signs of bleeding. Last labs in November PAST MEDICAL HISTORY Diagnosis Date Acute bronchitis Aneurysm of abdominal aorta (HCC) 04/20/2011. Lower abdomen. BPH (benign prostatic hyperplasia) CAD (coronary artery disease) Diverticulosis of colon (without mention of hemorrhage) GERD (gastroesophageal reflux disease) Hyperlipidemia Hypertension Internal hemorrhoids without mention of complication Macular degeneration NSTEMI (non-ST elevated myocardial infarction) ([facility]) 10/28/2019 Osteoarthritis of left hip Paresthesia PMH - PAST MEDICAL HISTORY OF sood PMH - PAST MEDICAL HISTORY OF heart problems PMH - PAST MEDICAL HISTORY OF problems with disc PMH - PAST MEDICAL HISTORY OF age 7 rheumatic fever PMH - PAST MEDICAL HISTORY OF syncope Spinal stenosis, unspecified region other than cervical lumbar Urinary incontinence PAST SURGICAL HISTORY Procedure Laterality Date ARTHRP ACETBLR/PROX FEM PROSTC AGRFT/ALGRFT Left 11/26/2017 Dr. Sukhjinder Lewis AVASTIN (BEVACIZUMAB) 1.25MG INTRAVITREAL INJECTION OD (RIGHT EYE) Right multiple COLONOSCOPY FLX DX W/COLLJ SPEC WHEN PFRMD 07/28/2007 DIR RPR ANEURYSM ABDOMINAL AORTA 04/20/2011 [facility] EYLEA (AFLIBERCEPT) 2MG INTRAVITREAL INJECTION OD (RIGHT EYE) Right 2017 x 3 INGUINAL HERNIA REPAIR HX Bilateral 06/12/2022 with mesh OTHER 10/28/2019 PTCA/BRYSON X2 in the saphenous vein graft to OM1. PAST SURGICAL HISTORY OF 09/1996 CABG PAST SURGICAL HISTORY OF 2004, 2016 Back PAST SURGICAL HISTORY OF cardiac cath PAST SURGICAL HISTORY OF 2004 right hip replacement PAST SURGICAL HISTORY OF 06/2007 surveillance cardiac cath PAST SURGICAL HISTORY OF 12/2009 Heart Cath PAST SURGICAL HISTORY OF Left 11/2017 Left Hip Surgery PERIPH ANEUR ARM KHADIJAH MAP INPT 2010 PRICARDIECTOMY STOT/COMPL W/CARDPULM BYPASS 1996 TONSILLECTOMY PRIMARY/SECONDARY <AGE 11 age 8 Tonsillectomy XCAPSL CTRC RMVL INSJ IO LENS PROSTH W/O ECP Bilateral Cataract Extraction with PC IOL Social History: Social History Tobacco Use Smoking status: Former Types: Cigarettes Quit date: 05/27/1982 Years since quittin.6 Smokeless tobacco: Never Vaping Use Vaping Use: Never used Substance Use Topics Alcohol use: No Drug use: No FAMILY HISTORY Problem Relation Age of Onset Heart Mother age 60 [place], smoker None Father age 77 MVA Cataract Father No Known Problems Sister No Known Problems Brother No Known Problems Sister No Known Problems Sister No Known Problems Sister Coronary Artery Disease Brother Coronary Artery Disease Brother Current Outpatient prescriptions: simvastatin (ZOCOR) 20 mg tablet Take 1 tablet by mouth daily at bedtime. Cholecalciferol, Vitamin D3, (VITAMIN D-3) 50 mcg (2,000 unit) cap Take 1 capsule by mouth once daily. cyanocobalamin (VITAMIN B-12) 1,000 mcg tab Take 1 tablet by mouth once daily. finasteride (PROSCAR) 5 mg tablet Take 1 tablet by mouth once daily. pantoprazole DR (PROTONIX) 40 mg tablet Take 1 tablet by mouth once daily. tamsulosin (FLOMAX) 0.4 mg Take 2 capsules by mouth once daily. triamcinolone acetonide (KENALOG) 0.1 % cream Apply 1 application to affected area two times a day. For eczema, Apply sparingly to area for rash/itching. atenolol (TENORMIN) 50 mg tablet Take 1 tablet by mouth once daily. clopidogrel (PLAVIX) 75 mg tablet Take 1 tablet by mouth once daily. hydroCHLOROthiazide 12.5 mg capsule Take 1 capsule by mouth once daily. lisinopril (ZESTRIL) 5 mg tablet Take 1 tablet by mouth once daily. sucralfate (CARAFATE) 1 gram tablet TAKE 1 TABLET BY MOUTH EVERY [address] TABLE[address] AND [address] IN LIQUID TO MAKE SLURRY TO TAKE isosorbide mononitrate ER (IMDUR) 30 mg 24 hr tablet Take 1 tablet by mouth once daily. omeprazole 20 mg capsule Take 20 mg by mouth once daily. Take one(1) tablet daily. Allergies: ALLERGIES No Known Allergies ROS: See HPI PE: 12/22/23 1212 BP: 120/70 Pulse: 64 Resp: 20 Temp: (!) 35.9 C (96.7 F) Weight: 81.6 kg (180 lb) Gen: A&O, NAD, non-toxic appearing, Pleasant, cooperative HEENT: NT/AC, PERRLA, EOMs intact b/l, visually impaired, nares clear and patent b/l, pharynx without erythema, exudate or lesions, MMM. Uvula midline. EACs without erythema or debris. TMs pearly mc[place]ur with intact landmarks b/l. Neck: supple, No cervical LAD, no thyromegaly, no carotid bruits CV: RRR, normal S1 and S2, no murmurs, no gallops, no rubs, Pulses 2+ and symmetric in UE and LE b/l Lungs: normal respiratory effort, CTA b/l, no wheezing or rhonchi or rales Abd: soft, NT, ND, +BS, no hepatosplenomegaly MS: FROM all 4 extremities Neuro: CN II-XII intact b/l, strength 5/5 b/l UE and LE, DTRs 2/4 UE and LE, sensation intact. Skin: warm, dry, intact, actinic keratosis x 2 on left superior helix, x 1 on right superior helix, x 2 on right upper cheek, x 2 on left mid and upper cheek, x 1 on left dorsal distal forearm, x 2 on right shoulder and x 2 on left upper back ASSESSMENT/PLAN: 1. Hypertension, essential - ICD9: 401.9, ICD10: I10 (primary diagnosis) - Controlled - Start lisinopril at increased dose to 10 mg a day and discontinue HCTZ 12.5 mg a day - Recommend home blood pressure monitoring, to bring results to next visit - Encouraged sodium restriction, DASH or Mediterranean diet - Recommend regular aerobic exercise 2. Vitamin D deficiency - ICD9: 268.9, ICD10: E55.9 Continue supplement - VITAMIN D 25 HYDROXY 3. Vitamin B12 deficiency - ICD9: 266.2, ICD10: E53.8 Continue supplement - VITAMIN B12 4. Other eczema - ICD9: 692.9, ICD10: L30.8 - discussed skin care of rash - follow up if symptoms persist or worsen. - Dry skin care instructions reviewed - Use mild soap like Dove, Aveeno or Cetaphil - limit shower/bath to less than 15 minutes with warm, not hot, water - BID use of recommended emollients such as Cetaphil, Eucerin Plus, Aveeno, Aquaphor - Follow up if symptoms persist or worsen. 5. Bilateral exudative age-related macular degeneration, unspecified stage (HCC) - ICD9: 362.52, ICD10: H35.3230 Worsening, chronic 6. Familial hypercholesterolemia - ICD9: 272.0, ICD10: E78.01 Continue statin therapy 7. BPH associated with nocturia - ICD9: 600.01, 788.43, ICD10: N40.1, R35.1 Continue same medications 8. Iron deficiency anemia, unspecified iron deficiency anemia type - ICD9: 280.9, ICD10: D50.9 Recheck labs as ordered. - COMPREHENSIVE METABOLIC PANEL - COMPLETE BLOOD COUNT AND DIFFERENTIAL 9. Borderline abnormal thyroid function test - ICD9: 794.5, ICD10: R94.6 - Instructed patient on importance of taking on an empty stomach either first thing in the morning or at bedtime. - THYROID STIMULATING HORMONE - T4 FREE/FREE THYROXINE 10. Abdominal aortic aneurysm (AAA) without rupture, unspecified part (HCC) - ICD9: 441.4, ICD10: I71.40 stable 11. Thrombocytopenia (HCC) - ICD9: 287.5, ICD10: D69.6 stable 12. Actinic keratosis - ICD9: 702.0, ICD10: L57.0 Treated with cryotherapy today in the office, tolerated well, no complications, he is aware of care at home Robel Onofre DO To ER if develops chest pain, shortness of breath, or severe worsening of symptoms. Discussed risks, benefits, alternatives, and potential side effects of medications. Patient expressed understanding and agreed with the plan. Robel Onofre DO [address] [place] [address] documented in this encounter [facility] 11-25-2023 Miscellaneous Notes Spoke with pt and information listed below given. Pt verbalizes understanding. Tiffanie Latham LPN Patient has been identified by name and date of : Yes, Provider [place] Daughter phones for refill(s): Requested Prescriptions Pending Prescriptions Disp Refills Cholecalciferol, Vitamin D3, (VITAMIN D-3) 50 mcg (2,000 unit) cap 90 capsule 3 Sig: Take 1 capsule by mouth once daily. Date of last office visit in primary care: 06/13/2023 Date of next office visit in primary care: 12/22/2023 Please advise. Thank you. Rodney Mace. documented in this encounter [facility] 11-12-2023 Miscellaneous Notes Patient has been identified by name and date of : Patient phones for refill(s): Requested Prescriptions Pending Prescriptions Disp Refills cyanocobalamin (VITAMIN B-12) 1,000 mcg tab 90 tablet 3 Sig: Take 1 tablet by mouth once daily. Date of last office visit in primary care: 06/13/2023 Date of next office visit in primary care: 12/22/2023 Please advise. Thank you. Lidia Galvez. documented in this encounter [facility] 10-14-2023 Miscellaneous Notes Patient has been identified by name and date of : Yes Daughter phones for refill(s): Requested Prescriptions Pending Prescriptions Disp Refills finasteride (PROSCAR) 5 mg tablet 90 tablet 3 Sig: Take 1 tablet by mouth once daily. Date of last office visit in primary care: 06/13/2023 Date of next office visit in primary care: 12/22/2023 Please advise. Thank you. Marisela Lilly Pss. documented in this encounter [facility] 07-31-2023 Miscellaneous Notes KIRAN 06/13/23 Scheduled 12/22/23 Patient has been identified by name and date of : Yes Requested Prescriptions Pending Prescriptions Disp Refills tamsulosin (FLOMAX) 0.4 mg 180 capsule 3 Sig: Take 2 capsules by mouth once daily. RX INSTRUCTIONS: Patient aware RX will be sent to pharmacy. No need to notify patient. Lidia Galvez documented in this encounter [facility] 07-31-2023 Miscellaneous Notes Called pts daughter who is his steel detailer gave information provided. She voices understanding. Asked this me mailed to home address,. Printed and sent to home address as asked. rx written in letters and sent to patient. Also printed if they need this as well Please inform Robel Onofre DO Last office visit - 06/13/2023 Patients steel detailer calling asking if they can please get a script for a stair lift chair. Thank you documented in this encounter [facility] 07-25-2023 Miscellaneous Notes Kiran--06/13/23 Nov--12/22/23 Last refill--12/05/20 453 g with 1 refill Last labs--12/06/22 Patient has been identified by name and date of : Yes Requested Prescriptions Pending Prescriptions Disp Refills triamcinolone acetonide (KENALOG) 0.1 % cream 453 g 1 Sig: Apply 1 application to affected area two times a day. For eczema, Apply sparingly to area for rash/itching. RX INSTRUCTIONS: Patient aware RX will be sent to pharmacy. No need to notify patient. Lakesha Mace documented in this encounter [facility] 06-14-2023 History of Present illness Narrative CC: Todd Matamoros is a 83 year old male who presents to the office for 6 months follow up HPI: Macular degeneration, continues to progress, no new recent interventions received. Knows that this affects his functioning/abilities but still has been able to stay at home since he knows where everything is located etc. No falls. BPH, long standing, use of Flomax and Proscar with improvement/relief, symptoms much improved HTN, CAD, aortic aneurysm, well controlled pulse and BP, taking medications as prescribed. Continues to see [facility] for followup Iron deficiency, eating iron rich foods,no signs of bleeding. Last labs in November PAST MEDICAL HISTORY Diagnosis Date Acute bronchitis Aneurysm of abdominal aorta ([facility]) 04/20/2011. Lower abdomen. BPH (benign prostatic hyperplasia) CAD (coronary artery disease) Diverticulosis of colon (without mention of hemorrhage) GERD (gastroesophageal reflux disease) Hyperlipidemia Hypertension Internal hemorrhoids without mention of complication Macular degeneration NSTEMI (non-ST elevated myocardial infarction) ([facility]) 10/28/2019 Osteoarthritis of left hip Paresthesia PMH - PAST MEDICAL HISTORY OF sood PMH - PAST MEDICAL HISTORY OF heart problems PMH - PAST MEDICAL HISTORY OF problems with disc PMH - PAST MEDICAL HISTORY OF age 7 rheumatic fever PMH - PAST MEDICAL HISTORY OF syncope Spinal stenosis, unspecified region other than cervical lumbar Urinary incontinence PAST SURGICAL HISTORY Procedure Laterality Date ARTHRP ACETBLR/PROX FEM PROSTC AGRFT/ALGRFT Left 11/26/2017 Dr. Sukhjinder Lewis AVASTIN (BEVACIZUMAB) 1.25MG INTRAVITREAL INJECTION OD (RIGHT EYE) Right multiple COLONOSCOPY FLX DX W/COLLJ SPEC WHEN PFRMD 07/28/2007 DIR RPR ANEURYSM ABDOMINAL AORTA 04/20/2011 [facility] EYLEA (AFLIBERCEPT) 2MG INTRAVITREAL INJECTION OD (RIGHT EYE) Right 2017 x 3 INGUINAL HERNIA REPAIR HX Bilateral 06/12/2022 with mesh OTHER 10/28/2019 PTCA/BRYSON X2 in the saphenous vein graft to OM1. PAST SURGICAL HISTORY OF 09/1996 CABG PAST SURGICAL HISTORY OF 2004, 2016 Back PAST SURGICAL HISTORY OF cardiac cath PAST SURGICAL HISTORY OF 2004 right hip replacement PAST SURGICAL HISTORY OF 06/2007 surveillance cardiac cath PAST SURGICAL HISTORY OF 12/2009 Heart Cath PAST SURGICAL HISTORY OF Left 11/2017 Left Hip Surgery PERIPH ANEUR ARM KHADIJAH MAP INPT 2010 PRICARDIECTOMY STOT/COMPL W/CARDPULM BYPASS 1996 TONSILLECTOMY PRIMARY/SECONDARY <AGE 11 age 8 Tonsillectomy XCAPSL CTRC RMVL INSJ IO LENS PROSTH W/O ECP Bilateral Cataract Extraction with PC IOL Current Outpatient Medications Medication Sig hydroCHLOROthiazide 12.5 mg capsule Take 1 capsule by mouth once daily. lisinopril (ZESTRIL) 5 mg tablet Take 1 tablet by mouth once daily. simvastatin (ZOCOR) 20 mg tablet Take 1 tablet by mouth daily at bedtime. cyanocobalamin (VITAMIN B-12) 1,000 mcg tab Take 1 tablet by mouth once daily. VITAMIN D-3 50 mcg (2,000 unit) cap Take 1 capsule by mouth once daily. finasteride (PROSCAR) 5 mg tablet Take 1 tablet by mouth once daily. pantoprazole DR (PROTONIX) 40 mg tablet Take 1 tablet by mouth once daily. tamsulosin (FLOMAX) 0.4 mg Take 2 capsules by mouth once daily. sucralfate (CARAFATE) 1 gram tablet TAKE 1 TABLET BY MOUTH EVERY [address] TABLETS [address] IN LIQUID TO MAKE SLURRY TO TAKE triamcinolone acetonide (KENALOG) 0.1 % cream Apply 1 application to affected area twice daily. For eczema, Apply sparingly to area for rash/itching. isosorbide mononitrate ER (IMDUR) 30 mg 24 hr tablet Take 1 tablet by mouth once daily. omeprazole 20 mg capsule Take 20 mg by mouth once daily. Take one(1) tablet daily. atenolol (TENORMIN) 50 mg tablet Take 1 tablet by mouth once daily. clopidogrel (PLAVIX) 75 mg tablet Take 1 tablet by mouth once daily. No current facility-administered medications for this visit. ALLERGIES No Known Allergies Social History Tobacco Use Smoking status: Former Types: Cigarettes Quit date: 05/27/1982 Years since quittin.0 Smokeless tobacco: Never Vaping Use Vaping Use: Never used Substance Use Topics Alcohol use: No Drug use: No ROS: See HPI PE: BP 136/70 Pulse 56 Temp (Src) 96.7 (Right Tympanic) Resp 24 Ht 5' 7.323 (1.71m) Wt 185 lb (83.9kg) BMI 28.70 kg/(m^2). Gen: A&O, NAD, non-toxic appearing, Pleasant, cooperative HEENT: NT/AC, PERRLA, EOMs intact b/l, visually impaired, nares clear and patent b/l, pharynx without erythema, exudate or lesions. Uvula midline. MMM, EACs without erythema or debris. TMs pearly mcarthur with intact landmarks b/l. Wearing hearing aides Neck: supple, No cervical LAD, no thyromegaly, no carotid bruits CV: RRR, normal S1 and S2, no murmurs, no gallops, no rubs, Pulses 2+ and symmetric in UE and LE b/l Lungs: normal respiratory effort, CTA b/l, no wheezing or rhonchi or rales Abd: soft, NT, ND, +BS, no hepatosplenomegaly Inguinal hernia present groin without pain today MS: FROM all 4 extremities, gait steady but slowed Neuro: CN II-XII intact b/l, sensation intact. Skin: actinic keratosis on right mid cheek and left lower cheek- 2 total ASSESSMENT/PLAN: 1. Hypertension, essential - ICD9: 401.9, ICD10: I10 (primary diagnosis) - Controlled - Continue current medications - Recommend home blood pressure monitoring, to bring results to next visit - Encouraged sodium restriction, DASH or Mediterranean diet - Recommend regular aerobic exercise - Discussed need for and benefit of weight loss. BMI 28.70 kg/(m^2) 2. Need for influenza vaccination - ICD9: V04.81, ICD10: Z23 - INFLUENZA VACCINE, PRSV FREE, AGE 65+ YR, HIGH DOSE, QUADRIVALENT (FLUZONE HIGH-DOSE) 3. Bilateral exudative age-related macular degeneration, unspecified stage (HCC) - ICD9: 362.52, ICD10: H35.3230 Slowly worsening, visually impaired. 4. Abdominal aortic aneurysm (AAA) without rupture, unspecified part (HCC) - ICD9: 441.4, ICD10: I71.40 stable 5. Thrombocytopenia (HCC) - ICD9: 287.5, ICD10: D69.6 stable 6. Vitamin D deficiency - ICD9: 268.9, ICD10: E55.9 Continue supplement - VITAMIN D 25 HYDROXY 7. Vitamin B12 deficiency - ICD9: 266.2, ICD10: E53.8 Continue supplement - VITAMIN B12 BLOOD 8. Familial hypercholesterolemia - ICD9: 272.0, ICD10: E78.01 Recheck labs in 6 months - COMP METABOLIC PANEL - CBC - LIPID PANEL BASIC 9. BPH associated with nocturia - ICD9: 600.01, 788.43, ICD10: N40.1, R35.1 Recheck labs in 6 months, no new symptoms. - PSA/PROSTSPECAG SCRN 10. Iron deficiency anemia, unspecified iron deficiency anemia type - ICD9: 280.9, ICD10: D50.9 Recheck labs as ordered, no signs of bleeding - CBC - IRON + TIBC - FERRITIN BLD 11. Coronary artery disease due to lipid rich plaque - ICD9: 414.00, 414.3, ICD10: I25.10, I25.83 Hx of, no recent symptoms 12. Hyperglycemia - ICD9: 790.29, ICD10: R73.9 Recheck labs, diet control - HGB A1C 13. Screening for prostate cancer - ICD9: V76.44, ICD10: Z12.5 - Counseled on healthy diet and regular exercise - PSA/PROSTSPECAG SCRN Robel Onofre DO Return if no improvement. Follow up with Robel Onofre DO. To ER if develops chest pain, shortness of breath. Discussed risks, benefits, alternatives, and potential side effects of medications. Patient/Guardian expressed understanding and agreed with the plan. See patient instructions. Robel Onofre DO [address] [place] [address] documented in this encounter [facility] 03-31-2023 Miscellaneous Notes Kiran--12/06/22 Nov--06/13/23 Last refill--lisinopril--10/07/22 90 with 1 refill Hctz--04/03/22 90 with 3 refills Last labs--12/06/22 Pharmacy verified in [facility] Patient has been identified by name and date of : Yes Patient aware RX will be sent to pharmacy. No need to notify patient. Zulema phones for refill(s): Requested Prescriptions Pending Prescriptions Disp Refills hydroCHLOROthiazide 12.5 mg capsule 90 capsule 3 Sig: Take 1 capsule by mouth once daily. lisinopril (ZESTRIL) 5 mg tablet 90 tablet 3 Sig: Take 1 tablet by mouth once daily. Date of last office visit : 12/06/2022 Date of next office visit : 06/13/2023 Last 2 Encounter Wt Readings: Date: Wt: 12/06/2022 82.6 kg (182 lb) 07/03/2022 81.6 kg (179 lb 12.8 oz) Not applicable Please advise. Zenaida Zacarias Pss documented in this encounter [facility] 02-12-2023 Miscellaneous Notes Patient has been identified by name and date of : Yes Last office visit in this department: Visit date not found RX INSTRUCTIONS: Patient aware RX will be sent to pharmacy. No need to notify patient. Patient phones requesting refills as follows: Requested Prescriptions Pending Prescriptions Disp Refills cyanocobalamin (VITAMIN B-12) 1,000 mcg tab 90 tablet 3 Sig: Take 1 tablet by mouth once daily. Cholecalciferol, Vitamin D3, (VITAMIN D-3) 50 mcg (2,000 unit) cap 90 capsule 3 Sig: Take 1 capsule by mouth once daily. Please review and advise. Sravanthi Mace documented in this encounter [facility] 02-05-2023 Miscellaneous Notes Given Rx's to daughter. Order signed Robel Onofre DO Order and Handicap placard letter placed on provider's desk to sign. Nury Levy RN Order placed Robel Onofre DO Patient requesting prescription of Handicap placard. Patient has two cars not sure if he needs two scripts or just one? Please advise and call Zulema Bernstein when ready for picker/puller. documented in this encounter [facility] 12-25-2022 Miscellaneous Notes Patient's daughter Jadyn calls back and notified of results and provider instructions. Jadyn voices understanding. Nury Levy RN Left a message for Jadyn to call the office for results on pts lab work. Tiffanie Latham LPN Left message to return call. Please inform patient's daughter Zulema Salamanca that his labs show that his iron is still too low and his anemia is still present but slightly improved. Would recommend increased iron intake of Slo fe supplement with at least 45-67 mg of iron in it twice a day with food if able to tolerate and doesn't cause constipation. Also can consider EGD and colonoscopy for further evaluation of the anemia cause. Serum creatinine is slightly high, needs to continue good fluid intake of at least 60 oz of water a day or more. Avoid NSAIDs orally as able. Robel Onofre DO documented in this encounter [facility] 12-06-2022 History of Present illness Narrative CC: Todd Matamoros is a 82 year old male who presents to the office for 6 months follow up HPI: Macular degeneration, continues to progress, no new recent interventions received. BPH, long standing, use of Flomax and Proscar with improvement/relief, symptoms much improved HTN, CAD, aortic aneurysm, well controlled pulse and BP, taking medications as prescribed. Will be seeing [facility] for follow up next week Iron deficiency, eating iron rich foods, okay to have labs rechecked, no signs of bleeding. PAST MEDICAL HISTORY Diagnosis Date Acute bronchitis Aneurysm of abdominal aorta 04/20/2011. Lower abdomen. BPH (benign prostatic hyperplasia) CAD (coronary artery disease) Diverticulosis of colon (without mention of hemorrhage) GERD (gastroesophageal reflux disease) Hyperlipidemia Hypertension Internal hemorrhoids without mention of complication Macular degeneration NSTEMI (non-ST elevated myocardial infarction) ([facility]) 10/28/2019 Osteoarthritis of left hip Paresthesia PMH - PAST MEDICAL HISTORY OF sood PMH - PAST MEDICAL HISTORY OF heart problems PMH - PAST MEDICAL HISTORY OF problems with disc PMH - PAST MEDICAL HISTORY OF age 7 rheumatic fever PMH - PAST MEDICAL HISTORY OF syncope Spinal stenosis, unspecified region other than cervical lumbar Urinary incontinence PAST SURGICAL HISTORY Procedure Laterality Date ARTHRP ACETBLR/PROX FEM PROSTC AGRFT/ALGRFT Left 11/26/2017 Dr. Sukhjinder Lewis AVASTIN (BEVACIZUMAB) 1.25MG INTRAVITREAL INJECTION OD (RIGHT EYE) Right multiple COLONOSCOPY FLX DX W/COLLJ SPEC WHEN PFRMD 07/28/2007 DIR RPR ANEURYSM ABDOMINAL AORTA 04/20/2011 [facility] EYLEA (AFLIBERCEPT) 2MG INTRAVITREAL INJECTION OD (RIGHT EYE) Right 2017 x 3 INGUINAL HERNIA REPAIR HX Bilateral 06/12/2022 with mesh OTHER 10/28/2019 PTCA/BRYSON X2 in the saphenous vein graft to OM1. PAST SURGICAL HISTORY OF 09/1996 CABG PAST SURGICAL HISTORY OF 2004, 2016 Back PAST SURGICAL HISTORY OF cardiac cath PAST SURGICAL HISTORY OF 2004 right hip replacement PAST SURGICAL HISTORY OF 06/2007 surveillance cardiac cath PAST SURGICAL HISTORY OF 12/2009 Heart Cath PAST SURGICAL HISTORY OF Left 11/2017 Left Hip Surgery PERIPH ANEUR ARM KHADIJAH MAP INPT 2010 PRICARDIECTOMY STOT/COMPL W/CARDPULM BYPASS 1996 TONSILLECTOMY PRIMARY/SECONDARY <AGE 11 age 8 Tonsillectomy XCAPSL CTRC RMVL INSJ IO LENS PROSTH W/O ECP Bilateral Cataract Extraction with PC IOL Social History: Social History Tobacco Use Smoking status: Former Types: Cigarettes Quit date: 05/27/1982 Years since quittin.5 Smokeless tobacco: Never Vaping Use Vaping Use: Never used Substance Use Topics Alcohol use: No Drug use: No FAMILY HISTORY Problem Relation Age of Onset Heart Mother age 60 [place], smoker None Father age 77 MVA Cataract Father No Known Problems Sister No Known Problems Brother No Known Problems Sister No Known Problems Sister No Known Problems Sister Coronary Artery Disease Brother Coronary Artery Disease Brother Current Outpatient prescriptions: cyanocobalamin (VITAMIN B-12) 1,000 mcg tab Take 1 tablet by mouth once daily. VITAMIN D-3 50 mcg (2,000 unit) cap Take 1 capsule by mouth once daily. finasteride (PROSCAR) 5 mg tablet Take 1 tablet by mouth once daily. lisinopril (ZESTRIL, PRINIVIL) 5 mg tablet Take 1 tablet by mouth once daily. pantoprazole DR (PROTONIX) 40 mg tablet Take 1 tablet by mouth once daily. atenolol (TENORMIN) 50 mg tablet Take 1 tablet by mouth once daily. tamsulosin (FLOMAX) 0.4 mg Take 2 capsules by mouth once daily. clopidogrel (PLAVIX) 75 mg tablet Take 1 tablet by mouth once daily. hydroCHLOROthiazide (HYDRODIURIL, ESIDRIX) 12.5 mg capsule Take 1 capsule by mouth once daily. simvastatin (ZOCOR) 20 mg tablet Take 1 tablet by mouth daily at bedtime. isosorbide mononitrate ER (IMDUR) 30 mg 24 hr tablet Take 1 tablet by mouth once daily. omeprazole 20 mg capsule Take 20 mg by mouth once daily. Take one(1) tablet daily. sucralfate (CARAFATE) 1 gram tablet TAKE 1 TABLET BY MOUTH EVERY [address] TABLETS AND PLACE IN LIQUID TO MAKE SLURRY TO TAKE triamcinolone acetonide (KENALOG) 0.1 % cream Apply 1 application to affected area twice daily. For eczema, Apply sparingly to area for rash/itching. Allergies: ALLERGIES No Known Allergies ROS: See HPI PE: 12/06/22 0936 BP: 120/60 Pulse: 60 Resp: 20 Temp: 36.5 C (97.7 F) TempSrc: Right Tympanic Weight: 82.6 kg (182 lb) Gen: A&O, NAD, non-toxic appearing, Pleasant, cooperative HEENT: NT/AC, PERRLA, EOMs intact b/l, visually impaired, nares clear and patent b/l, pharynx without erythema, exudate or lesions. Uvula midline. MMM, EACs without erythema or debris. TMs pearly mcarthur with intact landmarks b/l. Wearing hearing aides Neck: supple, No cervical LAD, no thyromegaly, no carotid bruits CV: RRR, normal S1 and S2, no murmurs, no gallops, no rubs, Pulses 2+ and symmetric in UE and LE b/l Lungs: normal respiratory effort, CTA b/l, no wheezing or rhonchi or rales Abd: soft, NT, ND, +BS, no hepatosplenomegaly Inguinal hernia present groin without pain today MS: FROM all 4 extremities, gait steady but slowed Neuro: CN II-XII intact b/l, sensation intact. ASSESSMENT/PLAN: 1. Vitamin D deficiency - ICD9: 268.9, ICD10: E55.9 (primary diagnosis) Recheck labs, continue supplements - VITAMIN D 25 HYDROXY 2. Vitamin B12 deficiency - ICD9: 266.2, ICD10: E53.8 Recheck labs, continue supplements - TSH BLD - VITAMIN B12 BLOOD 3. Hypertension, essential - ICD9: 401.9, ICD10: I10 - good control - Continue current medication(s) - Encouraged dietary sodium restriction/DASH diet - Recommended regular aerobic exercise. - Recommend home blood pressure monitoring, to bring results in on next visit - Goal of BP <130/80 - TSH BLD 4. Familial hypercholesterolemia - ICD9: 272.0, ICD10: E78.01 Recheck labs as ordered - CBC + DIFF - COMP METABOLIC PANEL - TSH BLD 5. BPH associated with nocturia - ICD9: 600.01, 788.43, ICD10: N40.1, R35.1 - recheck labs, continue follow up with Urologist - PSA/PROSTSPECAG SCRN - TSH BLD 6. Screening for prostate cancer - ICD9: V76.44, ICD10: Z12.5 - Counseled on healthy diet and regular exercise - PSA/PROSTSPECAG SCRN 7. Iron deficiency anemia, unspecified iron deficiency anemia type - ICD9: 280.9, ICD10: D50.9 Recheck labs, asymptomatic - CBC + DIFF - COMP METABOLIC PANEL - TSH BLD - IRON + TIBC - FERRITIN BLD - VITAMIN B12 BLOOD Robel Onofre DO To ER if develops chest pain, shortness of breath, or severe worsening of symptoms. Discussed risks, benefits, alternatives, and potential side effects of medications. Patient expressed understanding and agreed with the plan. Robel Onofre DO [address] [place] [address] documented in this encounter [facility] 11-18-2022 Miscellaneous Notes Patient has been identified by name and date of : Patient phones for refill(s): Requested Prescriptions Pending Prescriptions Disp Refills cyanocobalamin (VITAMIN B-12) 1,000 mcg tab [Pharmacy Med Name: cyanocobalamin (vit B-12) 1,000 mcg tablet] 90 tablet 3 Sig: Take 1 tablet by mouth once daily. VITAMIN D-3 50 mcg (2,000 unit) cap [Pharmacy Med Name: Vitamin D3 50 mcg (2,000 unit) capsule] 90 capsule 3 Sig: Take 1 capsule by mouth once daily. Date of last office visit in primary care: 07/03/22 Last 2 Encounter Wt Readings: Date: Wt: 07/03/2022 81.6 kg (179 lb 12.8 oz) 06/18/2022 80.3 kg (177 lb) Previous labs/tests for medication: Not applicable Please advise. Thank you. Rodney Kirk LPN documented in this encounter [facility] 10-17-2022 Miscellaneous Notes Last office visit: 07/03/22 F/u scheduled: 12/06/22 Mikaela Varghese Ma Pharmacy verified in [facility] Patient has been identified by name and date of : Yes Patient aware RX will be sent to pharmacy. No need to notify patient. Child phones for refill(s): Requested Prescriptions Pending Prescriptions Disp Refills finasteride (PROSCAR) 5 mg tablet 90 tablet 3 Sig: Take 1 tablet by mouth once daily. Date of last office visit : 07/03/2022 Date of next office visit : 12/06/2022 Last 2 Encounter Wt Readings: Date: Wt: 07/03/2022 81.6 kg (179 lb 12.8 oz) 06/18/2022 80.3 kg (177 lb) Not applicable Please advise. Zenaida Zacarias Pss documented in this encounter [facility] 10-07-2022 Miscellaneous Notes Kiran--07/03/22 Nov--12/06/22 Last refill--protonix--06/14/22 Lisinopril--04/08/22 90 with 1 refill Last labs--07/03/22 Patient has been identified by name and date of : Yes Requested Prescriptions Pending Prescriptions Disp Refills lisinopril (ZESTRIL, PRINIVIL) 5 mg tablet 90 tablet 1 Sig: Take 1 tablet by mouth once daily. pantoprazole DR (PROTONIX) 40 mg tablet 90 tablet 3 Sig: Take 1 tablet by mouth once daily. RX INSTRUCTIONS: Patient aware RX will be sent to pharmacy. No need to notify patient. Lorrie Latham Pss documented in this encounter [facility] 09-10-2022 Miscellaneous Notes Patient has been identified by name and date of : Yes Requested Prescriptions Pending Prescriptions Disp Refills atenolol (TENORMIN) 50 mg tablet 90 tablet 3 Sig: Take 1 tablet by mouth once daily. RX INSTRUCTIONS: Patient aware RX will be sent to pharmacy. No need to notify patient. Lorrie Latham Pss documented in this encounter [facility] 07-24-2022 Miscellaneous Notes Patient has been identified by name and date of : Yes Patient phones for refill(s): Requested Prescriptions Pending Prescriptions Disp Refills tamsulosin (FLOMAX) 0.4 mg 180 capsule 3 Sig: Take 2 capsules by mouth once daily. Date of last office visit in primary care: 07/03/22 Labs-07/03/22 NOV-none med filled 12/02/22 Last 2 Encounter Wt Readings: Date: Wt: 07/03/2022 81.6 kg (179 lb 12.8 oz) 06/18/2022 80.3 kg (177 lb) Previous labs/tests for medication: Not applicable Please advise. Thank you. Cat Trammell documented in this encounter [facility] 07-04-2022 Miscellaneous Notes Spoke with pt's daughter and information listed below given. Pt 's daughter verbalizes understanding. Left message with daughter to contact office for pt results. Marylu Jolly Ma Please let Daryn/his daughters know that we received his lab results. His hemoglobin has increased from 10.1 to now 11.1, so this is good. His iron level looks good as well. Bessie Ambrocio APRN.CNP documented in this encounter [facility] 07-03-2022 History of Present illness Narrative Chief Complaint Patient presents with: [facility] F/U [facility] Todd Matamoros is a 82 year old male who presents here today for Above Complaints.. Today: Was admitted to [facility] on 06/13 for coffee ground emesis. Had a surgery for hernia repair on 06/12. Was found to have a Maegan-Feldman tear and has followed up with Dr. Tesfaye in general surgery since. His sx have since resolved. He is to follow up with Dr. Tesfaye prn. Past medical history, appointments, medications, allergies reviewed. Previous Medical History PAST MEDICAL HISTORY Diagnosis Date Acute bronchitis Aneurysm of abdominal aorta 04/20/2011. Lower abdomen. BPH (benign prostatic hyperplasia) CAD (coronary artery disease) Diverticulosis of colon (without mention of hemorrhage) GERD (gastroesophageal reflux disease) Hyperlipidemia Hypertension Internal hemorrhoids without mention of complication Macular degeneration NSTEMI (non-ST elevated myocardial infarction) ([facility]) 10/28/2019 Osteoarthritis of left hip Paresthesia PMH - PAST MEDICAL HISTORY OF sood PMH - PAST MEDICAL HISTORY OF heart problems PMH - PAST MEDICAL HISTORY OF problems with disc PMH - PAST MEDICAL HISTORY OF age 7 rheumatic fever PMH - PAST MEDICAL HISTORY OF syncope Spinal stenosis, unspecified region other than cervical lumbar Urinary incontinence Previous Surgical History PAST SURGICAL HISTORY Procedure Laterality Date ARTHRP ACETBLR/PROX FEM PROSTC AGRFT/ALGRFT Left 11/26/2017 Dr. Sukhjinder Lewis AVASTIN (BEVACIZUMAB) 1.25MG INTRAVITREAL INJECTION OD (RIGHT EYE) Right multiple COLONOSCOPY FLX DX W/COLLJ SPEC WHEN PFRMD 07/28/2007 DIR RPR ANEURYSM ABDOMINAL AORTA 04/20/2011 [facility] EYLEA (AFLIBERCEPT) 2MG INTRAVITREAL INJECTION OD (RIGHT EYE) Right 2017 x 3 INGUINAL HERNIA REPAIR HX Bilateral 06/12/2022 with mesh OTHER 10/28/2019 PTCA/BRYSON X2 in the saphenous vein graft to OM1. PAST SURGICAL HISTORY OF 09/1996 CABG PAST SURGICAL HISTORY OF 2004, 2016 Back PAST SURGICAL HISTORY OF cardiac cath PAST SURGICAL HISTORY OF 2004 right hip replacement PAST SURGICAL HISTORY OF 06/2007 surveillance cardiac cath PAST SURGICAL HISTORY OF 12/2009 Heart Cath PAST SURGICAL HISTORY OF Left 11/2017 Left Hip Surgery PERIPH ANEUR ARM KHADIJAH MAP INPT 2010 PRICARDIECTOMY STOT/COMPL W/CARDPULM BYPASS 1996 TONSILLECTOMY PRIMARY/SECONDARY <AGE 11 age 8 Tonsillectomy XCAPSL CTRC RMVL INSJ IO LENS PROSTH W/O ECP Bilateral Cataract Extraction with PC IOL Family History FAMILY HISTORY Problem Relation Age of Onset Heart Mother age 60 [place], smoker None Father age 77 MVA Cataract Father No Known Problems Sister No Known Problems Brother No Known Problems Sister No Known Problems Sister No Known Problems Sister Coronary Artery Disease Brother Coronary Artery Disease Brother Patient Allergies ALLERGIES No Known Allergies Current Medications Current Outpatient Medications on File Prior to Visit Medication Sig pantoprazole DR (PROTONIX) 40 mg tablet Take 40 mg by mouth once daily. sucralfate (CARAFATE) 1 gram tablet TAKE 1 TABLET BY MOUTH EVERY [address] TABLE[address] AND [address] IN LIQUID TO MAKE SLURRY TO TAKE clopidogrel (PLAVIX) 75 mg tablet Take 1 tablet by mouth once daily. lisinopril (ZESTRIL, PRINIVIL) 5 mg tablet Take 1 tablet by mouth once daily. hydroCHLOROthiazide (HYDRODIURIL, ESIDRIX) 12.5 mg capsule Take 1 capsule by mouth once daily. Cholecalciferol, Vitamin D3, 50 mcg (2,000 unit) cap Take 1 capsule by mouth once daily. cyanocobalamin (VITAMIN B-12) 1,000 mcg tab Take 1 tablet by mouth once daily. simvastatin (ZOCOR) 20 mg tablet Take 1 tablet by mouth daily at bedtime. finasteride (PROSCAR) 5 mg tablet Take 1 tablet by mouth once daily. atenolol (TENORMIN) 50 mg tablet Take 1 tablet by mouth once daily. tamsulosin (FLOMAX) 0.4 mg Take 2 capsules by mouth once daily. triamcinolone acetonide (KENALOG) 0.1 % cream Apply 1 application to affected area twice daily. For eczema, Apply sparingly to area for rash/itching. isosorbide mononitrate ER (IMDUR) 30 mg 24 hr tablet Take 1 tablet by mouth once daily. omeprazole 20 mg capsule Take 20 mg by mouth once daily. Take one(1) tablet daily. amLODIPine (NORVASC) 5 mg tablet Take 1 tablet by mouth once daily. (Patient not taking: Reported on 07/03/2022) Aspirin 81 mg ORAL Tab Take one(1) tablet daily. (Patient not taking: No sig reported) No current facility-administered medications on file prior to visit. Social History Social History Tobacco Use Smoking status: Former Types: Cigarettes Quit date: 05/27/1982 Years since quittin.1 Smokeless tobacco: Never Vaping Use Vaping Use: Never used Substance Use Topics Alcohol use: No Drug use: No Review of Symptoms REVIEW OF SYSTEMS See HPI, otherwise negative EXAM: BP 128/80 (BP Site: Left Arm, BP Position: Sitting, BP Cuff Size: Regular Adult) Pulse (!) 55 Wt 81.6 kg (179 lb 12.8 oz) SpO2 98% BMI 28.16 kg/m General Appearance: Well appearing, alert, in no acute distress, well-hydrated, well nourished.. Lungs: Lungs clear to auscultation. No wheezing, rhonchi, rales.. Heart: RRR without murmur, gallop, or rubs. No ectopy. Abdomen: Normal abdominal exam, Abdomen soft, non-tender. Bowel sounds normal. No masses, organomegaly. Health Maintenance List DTAP,TDAP,TD(1 - Tdap) Never done SHINGRIX VACCINE(1 of 2) Never done COVID-19 VACCINE(5 - Booster) due on 01/01/2021 PNEUMOCOCCAL: 65+(2 - PCV) due on 06/06/2021 ADVANCE DIRECTIVE DISCUSSION Never done INFLUENZA(1) due on 04/25/2022 LDL CHOLESTEROL due on 05/29/2022 DIABETES SCREEN due on 05/31/2025 Data reviewed Previous records, office notes, hospital records ASSESSMENT/PLAN: 1. Hypertension, essential - ICD9: 401.9, ICD10: I10 (primary diagnosis) - good control - Continue current medication(s) - Recommended regular aerobic exercise. - Recommend home blood pressure monitoring, to bring results in on next visit - Goal of BP <130/80 2. Meagan-Feldman tear - ICD9: 530.7, ICD10: K22.6 Sx has resolved. Following with Dr. Tesfaye in general surgery. Bessie Ambrocio APRN.LEO documented in this encounter [facility] 06-27-2022 Miscellaneous Notes TC to patient who verbalizes understanding and will bring BP readings to appointment on Friday. NATHAN Myers Noted. Glad to hear he is doing better. Continue to monitor BP and bring recordings into visit on Friday. Thank you, Cat Lentz APRN.CNP Pt reports he is feeling better today. Reports BP was 153/72 this am. Marylu Jolly Ma Please call patient to see how he is feeling? Robel Onofre DO documented in this encounter [facility] 06-21-2022 Miscellaneous Notes Pt daughter informed of providers instructions, verbalized understanding. Marylu Jolly Ma Please have patient continue to check BP daily. If systolic drops below 90, let us know. If patient remains asymptomatic, OK to continue to monitor. If any symptoms arise over weekend, needs to go to ER. OK to restart anticoagulation as instructed. Thank you, Cat Lentz APRN.LEO Patient's daughter Shy calling and reports patient's BP this morning was 94/54. Patient is not having any hypotensive symptoms. She is calling to report this since patient is on BP medications. Daughter also asking if it is ok for patient to resume his plavix and aspirin tomorrow as originally ordered to restart? The medications were on hold while patient was having procedure. Please advise daughter Shy at [phone]. Thank you. documented in this encounter [facility] 06-17-2022 Miscellaneous Notes Noted. Good to hear. Thank you, Cat Lentz APRN.MACHINIST APPRENTICE Spoke with pts son pt is with him at the moment . He states they feel their one cuff they were using might have been the problem when they take it with this other cuff its normal. Pt is feeling much better. He will bring him in for cbc just incase. Will follow up with surgeon tomorrow and then decide if our appt needs moved up. Please ask patient if vomiting any coffee ground emesis or any blood in stool. We can complete CBC and fecal occult test to check hemoglobin levels to make sure not bleeding. With general surgery appointment tomorrow morning, this will addressed in more detail. Also, appointment Jul 03--- is this for hospital follow-up? This should be sooner if able. Thank you, Cat Lentz APRN.MACHINIST APPRENTICE Daughter calls and states pt had hernia surgery last 06-12-22. Pt was having complications and was admitted to [facility] 06-13-22 vomiting black coffee ground. and had a scope the following day and found the little tear in the esophagus Pt was D/C 06-08-22. Follow up with his surgeon on 06-18-22 . Daughter Zulema calls and states the following: LOW BLOOD PRESSURE BLOOD PRESSURE: today 99/52, 98/47 took again at 10:28 am 94/43 ONSETS: started this am. Yesterday 115 to 120. Friday 110 to 112 HOW: taking BP on arm with a cuff HISTORY: no history of low blood pressure MEDICATIONS: taking his medications and not missing any doses PULSE RATE: 61 OTHER SYMPTOMS: No difficulty breathing Tiffanie Latham LPN documented in this encounter [facility] 06-17-2022 History of Present illness Narrative TRANSITION CARE MANAGEMENT (TCM) INITIAL CONTACT Orthopaedic Technologist Outreach Provider Action/FYI: Pt having low blood pressure, daughter called in. Phone encounter made for this. Initial contact with patient post discharge, spoke to daughter. Patient identified by name and . TRANSITION CARE MANAGEMENT INITIAL OUTREACH DOCUMENTATION: Date of Outreach: 06/17/2022 Outreach Attempt 1: Contact Made Date of Discharge 06/08/2022 Some recent data might be hidden SUMMARY: -Pt discharged from [facility] on 06/08/22. -Admitted for: vomiting coffee grounds Do you have a hospital follow up appointment with your PCP? Appointment on 07/03/22 with 7:40 am this apt is at the daughter's request. No. Assist patient with follow-up appointment within 1-14 calendar days from discharge date. If patient prefers not to schedule follow-up appointment at this time, notify PCP. MEDICATIONS: Many patients have questions or concerns about their medications once they are home. Were you prescribed any new medications? If yes, what are those medications? Pantoprazole 40 mg 1 daily, Carafate 1 gm tablet every 6 hours, Were you told to hold any medications? If yes, what are those medications? Aspirin, clopidogrel Were any of your medications discontinued? If yes, what are those medications? lansoprazole Do you have any questions about getting or taking your medications? No Your discharge instructions/After visit Summary (AVS) are important in guiding you through the recovery process. Is there anything I might help you understand? No Do you have all the necessary equipment and supplies at home? Yes Medical records from recent hospitalization: Records are at [facility] documented in this encounter [facility] 06-13-[address] Tesfaye aware and agreed with the recommendation given by Delma Mojica RN to be evaluated in the emergency room. Bhavna Anne RN Pt's daughter called in states father has been having black coffee ground like emesis through out the day. Earlier today pt took pain medication and vomitted, daughter states emesis was very small amount of black and has had that a couple times, but just recently filled a [facility] and was all black. Pt hasn't been able to keep much food or drink down today per daughter. Pt denies any pain at this time. Encouraged daughter to take pt to ER to be assessed since it is 4:00 and not sure how quickly the provider could respond. Daughter agreeable. Please advise. Delma Mojica RN documented in this encounter [facility] 06-12-2022 Note HNO ID: [id number] Author: Tamara Stinson APRN.CRNA Service: Anesthesiology Author Type: Nurse Singing Waiter Or Waitress Type: Anesthesia Procedure Notes Filed: 06/12/2022 12:03 PM Note Text: ANESTHESIOLOGY PROCEDURE NOTE Airway General Information Procedure Start Time/Medication Administration: 06/12/2022 11:46 AM Patient location during procedure: OR Timeout Performed Pre-procedure: timeout performed Consent Obtained: Yes Patient identity confirmed: arm band and care support team member Staffing MEMORY CARE PROGRAM RESIDENT: Tamara Stinson APRN.MEMORY CARE PROGRAM RESIDENT Performed by: SARI Indications and Patient Condition Indications for airway management: anesthesia and respiratory distress Preoxygenated: yes anesthesia circuit Patient position: sniffing Method: asleep Final Airway Details Final airway type: endotracheal airway Final Endotracheal Airway: ETT Cuffed: yes Successful intubation technique: direct laryngoscopy Devices used: intubating stylet Endotracheal tube insertion site: oral Blade: Melissa Blade size: #4 ETT size (mm): 8.0 Measured from: lips Measurement (cm): 24 Placement verified by: chest auscultation and capnometry Cormack-Lehane Classification: grade I - full view of glottis Number of attempts at approach: 1 SIGNATURE: Tamara Stinson APRN.MEMORY CARE PROGRAM RESIDENT PATIENT NAME: Todd Matamoros DATE: June 12, 2022 TIME: 12:02 PM CSN: [id number] [facility] 06-12-2022 Surgical operation note OPERATIVE/PROCEDURE REPORT LOG ID: [id number] SURGERY/PROCEDURE DATE: 06/12/2022 INCISION/PROCEDURE START TIME: 12:00 PM INCISION CLOSE/PROCEDURE END TIME: 12:49 PM SURGEON(S)/PROCEDURALIST(S) AND MEDICAL SECRETARY(S): Surgeon(s) and Role: * Florencio Tesfaye MD - Primary Nurse Practitioner: Nuria Banks APRN.MACHINIST APPRENTICE Physician Brickmason Contractor: Indy Mosqueda PA-C SURGERY/PROCEDURE(S): Laparoscopic bilateral inguinal hernia repair with mesh ANESTHESIA: General SURGERY/PROCEDURE DETAILS: Patient was brought into the operating room. Placed in the supine position. Under excellent general anesthetic the abdomen was sterilely prepped and draped in the usual fashion. Local was injected supraumbilically. Dissection was carried down to the fascia the fascia was grasped with a [place] varies needle was placed inside the abdomen the abdomen was insufflated to 15 torr. A 10/12 trocar was placed without difficulty. It was flank by 2 number #5 trochars. Over these placed under direct visualization without injury to underlying structures. Patient was placed in the headdown rotated to the left position. I scored the peritoneum on the right. I dissected down to the pubic tubercle and Michael's ligament bringing back a direct inguinal defect into the operating field. I dissected further laterally dissecting the cord and vessel structures free. I had excellent hemostasis. I fashioned a 10 x 15 ProGrip mesh into the wound it laid flat I then reperitonealized the area with a pro tacker. I then went to the left side inspected he did indeed have an inguinal hernia here this was an indirect inguinal hernia I scored the peritoneum on the left once again dissected down to Michael's ligament and the pubic tubercle I dissected further laterally bringing a indirect defect back into the operating field identifying the cord and structures in the process and then dissected further laterally. I had good hemostasis. I fashioned a 16 x 12 mesh which I actually cut down to 15 x 10 ProGrip mesh since we did not have any further 15 x 10's. I placed this into the operating field and lay completely flat in the inguinal floor covering the defect completely. I reperitonealized the area covering the mesh. Ilioinguinal nerve blocks were performed. Trochars were removed good in the stasis was noted a closed the fascia the umbilical port with a [id number] stitch of 0 Vicryl. Skin incisions were closed with subcuticular stitches of 4-0 Monocryl. Steri-Strips were applied sterile dressings were applied patient tolerated the procedure well. Nuria Banks CNP was my lead recreation assistant. She assisted with retraction, visualization and performed skin closure. No additional surgeons or qualified residents were available. PRE-OP/PRE-PROCEDURE DIAGNOSIS: Right inguinal hernia POST-OP/POST-PROCEDURE DIAGNOSIS: Bilateral inguinal hernias ESTIMATED BLOOD LOSS: <30 mls SPECIMENS: None IMPLANTABLE DEVICES: two 10 x 15 ProGrip mesh DRAINS: None COMPLICATIONS: None PARTICIPATION IN SURGERY/PROCEDURE: I/primary surgeon/proceduralist performed the procedure with assistance. SIGNATURE: Florencio Tefsaye III, MD PATIENT NAME: Todd Matamoros DATE: June 12, 2022 TIME: 12:53 PM documented in this encounter [facility] 06-12-2022 History and physical note Images from the original note were not included. HISTORY AND PHYSICAL Todd Matamoros 1940 REFERRING PHYSICIAN: Self CHIEF COMPLAINT: Follow Up (Bilateral inguinal hernia) HPI: Todd is a 82 year old male with a complaint of a bulge and discomfort in his right inguinal region. The patient notes discomfort in this area with lifting and straining. The symptoms have increased, over the past few weeks. The patient notes no symptoms of bowel obstruction and denies nausea or vomiting. Patient noticed this after he was trying to work on a stump and then working his barn on his tractor. He is never noticed any bulges coming out he is never had any change in his bowel or bladder habits. He had a CAT scan of his abdomen and pelvis which did show bilateral inguinal hernias on the CAT scan. 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 Lower abdomen. BPH (benign prostatic hyperplasia) CAD (coronary artery disease) Diverticulosis of colon (without mention of hemorrhage) GERD (gastroesophageal reflux disease) Hyperlipidemia Hypertension Internal hemorrhoids without mention of complication Macular degeneration NSTEMI (non-ST elevated myocardial infarction) ([facility]) 10/28/2019 Osteoarthritis of left hip Paresthesia PMH - PAST MEDICAL HISTORY OF sood PMH - PAST MEDICAL HISTORY OF heart problems PMH - PAST MEDICAL HISTORY OF problems with disc PMH - PAST MEDICAL HISTORY OF age 7 rheumatic fever PMH - PAST MEDICAL HISTORY OF syncope Spinal stenosis, unspecified region other than cervical lumbar Urinary incontinence PAST SURGICAL HISTORY PAST SURGICAL HISTORY Procedure Laterality Date ARTHRP ACETBLR/PROX FEM PROSTC AGRFT/ALGRFT Left 11/26/2017 Dr. Sukhjinder Lewis AVASTIN (BEVACIZUMAB) 1.25MG INTRAVITREAL INJECTION OD (RIGHT EYE) Right multiple COLONOSCOPY FLX DX W/COLLJ SPEC WHEN PFRMD 07/28/07 DIR RPR ANEURYSM ABDOMINAL AORTA 04/20/2011 [place] EYLEA (AFLIBERCEPT) 2MG INTRAVITREAL INJECTION OD (RIGHT EYE) Right 2017 x 3 OTHER 10/28/2019 PTCA/BRYSON X2 in the saphenous vein graft to OM1. PAST SURGICAL HISTORY OF 09/1996 CABG PAST SURGICAL HISTORY OF 2004, 2016 Back PAST SURGICAL HISTORY OF cardiac cath PAST SURGICAL HISTORY OF 2004 right hip replacement PAST SURGICAL HISTORY OF 06/2007 surveillance cardiac cath PAST SURGICAL HISTORY OF 12/2009 Heart Cath PAST SURGICAL HISTORY OF Left 11/2017 Left Hip Surgery PERIPH ANEUR ARM KHADIJAH MAP INPT 2010 PRICARDIECTOMY STOT/COMPL W/CARDPULM BYPASS 1996 TONSILLECTOMY PRIMARY/SECONDARY <AGE 11 age 8 Tonsillectomy XCAPSL CTRC RMVL INSJ IO LENS PROSTH W/O ECP Bilateral Cataract Extraction with PC IOL CURRENT MEDICATIONS Current Outpatient Medications Medication Sig lisinopril (ZESTRIL, PRINIVIL) 5 mg tablet Take 1 tablet by mouth once daily. hydroCHLOROthiazide (HYDRODIURIL, ESIDRIX) 12.5 mg capsule Take 1 capsule by mouth once daily. amLODIPine (NORVASC) 5 mg tablet Take 1 tablet by mouth once daily. Cholecalciferol, Vitamin D3, 50 mcg (2,000 unit) cap Take 1 capsule by mouth once daily. cyanocobalamin (VITAMIN B-12) 1,000 mcg tab Take 1 tablet by mouth once daily. simvastatin (ZOCOR) 20 mg tablet Take 1 tablet by mouth daily at bedtime. finasteride (PROSCAR) 5 mg tablet Take 1 tablet by mouth once daily. atenolol (TENORMIN) 50 mg tablet Take 1 tablet by mouth once daily. tamsulosin (FLOMAX) 0.4 mg Take 2 capsules by mouth once daily. clopidogrel (PLAVIX) 75 mg tablet Take 1 tablet by mouth once daily. triamcinolone acetonide (KENALOG) 0.1 % cream Apply 1 application to affected area twice daily. For eczema, Apply sparingly to area for rash/itching. sertraline (ZOLOFT) 25 mg tablet Take 1 tablet by mouth daily at bedtime. isosorbide mononitrate ER (IMDUR) 30 mg 24 hr tablet Take 1 tablet by mouth once daily. vit C/E/Zn/coppr/lutein/zeaxan (PRESERVISION AREDS 2 ORAL) Take 2 tablets by mouth twice daily. omeprazole 20 mg capsule Take 20 mg by mouth once daily. Take one(1) tablet daily. clobetasol 0.05 % ointment Apply selectively to dermatitis and/or psoriasis red scaling patch//plaque selectively on lower leg calf once to twice per day (qday to bid) until clear (up to a maximum of 4 to 6 wks if needed) and then stop or taper off as able. Can then substitute a bland moisturizer cream such as CeraVe cream twice per day as able. ceramides 1,3,6-11(CERAVE TOPICAL CREAM) Apply to dry skin areas and psoriasis/eczema areas of hands bid to qid and prn as directed and tolerated. Aspirin 81 mg ORAL Tab Take one(1) tablet daily. No current facility-administered medications for this visit. ALLERGIES: Patient has no known allergies. PERSONAL HISTORY: SOCIAL HISTORY Social History Tobacco Use Smoking status: Former Types: Cigarettes Quit date: 05/27/1982 Years since quittin.0 Smokeless tobacco: Never Vaping Use Vaping Use: Never used Substance Use Topics Alcohol use: No Drug use: No FAMILY HISTORY: FAMILY HISTORY FAMILY HISTORY Problem Relation Age of Onset Heart Mother age 60 [place], smoker None Father age 77 MVA Cataract Father No Known Problems Sister No Known Problems Brother No Known Problems Sister No Known Problems Sister No Known Problems Sister Coronary Artery Disease Brother Coronary Artery Disease Brother REVIEW OF SYSTEMS: General: The patient NOTES fatigue, denies weight loss, denies weight gain, denies feeling hot, and denies feelings of cold. Eyes: The patient denies glaucoma, denies eye injury/surgery, wears glasses or contacts. Ear/Nose/Throat: The patient denies allergies, denies hayfever, denies ear infections, and denies bloody noses. Cardiovascular: The patient denies chest pain, NOTES heart disease, NOTES high blood pressure,denies cardiac stent, NOTES prior heart attack, denies irregular heart beat, denies high cholesterol, denies poor circulation, denies heart failure, other cardiac issues, denies claudication, denies cold feet, denies peripheral arterial stent. Respiratory: The patient denies tuberculosis, denies pneumonia, denies frequent cough, denies pulmonary embolism, denies shortness of breath, and denies coughing up blood. Gastrointestinal: The patient denies difficulty swallowing, NOTES acid reflux, denies ulcers, denies vomiting, denies jaundice/hepatitis, denies gallbladder problems, denies black or tarry stools, denies hemorrhoids, denies bleeding from rectum, denies diverticulitis, denies constipation, denies diarrhea, denies loss of stool control, and NOTES hernias. Kidney/Bladder: The patient denies kidney stones, denies urine infections, and denies bloody urine. Skin: The patient denies a history of skin cancer, denies bleeding/changing moles, and denies a history of skin rash. Neurologic: The patient denies a history of epilepsy/convulsions, denies headaches, denies head/spinal injuries, and denies stroke/TIA. Psychiatric: The patient denies psychiatric medications, NOTES depression, and denies voices, denies substance abuse. Endocrine: The patient denies thyroid disorders, denies diabetes, and denies hormonal problems. Hematologic: The patient denies a history of bruising, denies bleeding, and denies anemia, denies blood clots. Infections: The patient denies a history of measles and mumps, denies rheumatic fever, and denies sexually transmitted diseases. Musculoskeletal: The patient denies back pain/injury, NOTES back problems, denies sciatica, denies knee/foot trouble, denies arthritis, or denies gout. s When was patient's last Mammogram screening? N/A Last Colonoscopy: 07/28/2007 PHYSICAL EXAMINATION: General: The patient is 82 year old male, well nourished, well hydrated in no acute distress. The patient is oriented to time, place, and person. VITALS: Blood pressure 133/63, pulse (!) 59, temperature 36.4 C (97.6 F), weight 82 kg (180 lb 12.8 oz), SpO2 96 %. Body mass index is 28.32 kg/m . HEENT: Normal cephalic, ataumatic, pupils are equally round, sclera are anicteric, mucous membranes are moist, oropharynx is clear. Neck has no masses, asymmetry or lymphadenopathy. Thyroid is unremarkable. Respiratory: Clear to auscultation and percussion. Normal respiratory excursion and pattern. Cardiac: Examination is regular rate and rhythm. Abdominal exam: Soft, nontender, with no palpable masses. No hepatosplenomegaly. A moderate reducible right inguinal hernia, no left inguinal or umbilical hernias are noted Rectal exam: exam deferred Extremities: no clubbing, cyanosis or edema. No adenopathy. Other: LABORATORY VALUES: As Noted RADIOLOGIC STUDIES: As Noted Assessment IMPRESSION: right inguinal hernia PLAN: My plan is to perform a laparoscopic right inguinal hernia repair with mesh. The planned surgical procedure was discussed extensively with the patient. The risks, benefits, anticipated outcomes and possible complications were mentioned. Todd smithands that all hernia repair surgery has a chance of recurrence and/or chronic post operative pain. My staff has also explained the procedure in understandable terms and the patient was given the option to take printed material concerning the planned procedure. The patient had the opportunity to ask questions concerning the planned procedure. The patient freely consents to the planned procedure. My findings have been communicated to Dr. Robel Onofre DO via shared medical record. This note will be forwarded to Dr. Robel Onofre DO. Diagnoses: (K40.90) Right inguinal hernia (primary encounter diagnosis) Anticipated CPT Code: laparoscopic right inguinal hernia repair with mesh - 14528-936 Anticipated Anesthetic: General Patient weight: Blood pressure 133/63, pulse (!) 59, temperature 36.4 C (97.6 F), weight 82 kg (180 lb 12.8 oz), SpO2 96 %. BMI: Body mass index is 28.32 kg/m . Planned antibiotic: Ancef 2gm IVPB back tender insulation board to OR SCDs needed - Yes Return to Clinic: The patient is instructed to follow-up with me 1 week post operatively. COVID (Procedure Consent) Procedure Criteria Procedure Criteria: Yes Elective The surgeon/proceduralist and patient have discussed in detail the risk of exposure to and/or potential harm posed by the COVID-19 virus with having a surgery/procedure at this time versus the risk of delaying the surgery/procedure. It is not possible to know either the risk of delaying the surgery or procedure or chance of getting an infection with perfect accuracy, but a joint decision was made between the patient and the surgeon/proceduralist to proceed at this time with the scheduled surgery/procedure as indicated on the consent form. Florencio Tesfaye III, MD UPDATED HISTORY AND PHYSICAL EXAMINATION SERVICE DATE: 06/12/2022 SERVICE TIME: 11:11 AM PHYSICAL EXAM MUST BE COMPLETED ON ADMISSION The History and Physical (completed in the past 30 days) has been reviewed and the patient has been examined. The contents accurately reflect the patient's condition with the following additions or revisions since the H&P was completed. Examination indicates no changes. This H&P can be found in the attached. SIGNATURE: Florencio Tesfaye III, MD PATIENT NAME: Todd Matamoros DATE: June 12, 2022 TIME: 11:11 AM documented in this encounter [facility] 06-07-2022 Miscellaneous Notes Received letter from Dr. Donald's office with notification to stop Plavix for 5 days prior to procedure but can continue aspirin therapy due to cardiac stent. TE from Erickson rasheed today notifying patient of instructions. Copy of letter given to Luiza Rivers CNP and original sent to hog operator to scan. Gianna Branham LPN documented in this encounter [facility] 06-07-2022 Miscellaneous Notes Message left for Dr Donald for permission to hold plavix 5 day sprior ro 06/12/22 surgery. Received a call back from Saida BAKER at Dr Donald's office. They did not receive letter from our office requesting plavix instructions. Per Dr Dnoald, pt may hold plavix 5 days prior to surgery as his stent was done over 1 year ago. Will fax letter to his office for Dr Moodispaw to sign. Spoke with pt this mornng and instructed to hold Plavix starting today, 06/07/22. Pt verbalized understanding. Erickson Alvares RN June 07, 2022 10:44 AM documented in this encounter [facility] 06-04-2022 History of Past i llness Narrative Problem Noted Date Resolved Date Right inguinal hernia 06/04/2022 06/12/2022 documented as of this encounter (statuses as of 06/13/2022) [facility] History of Past illness Narrative* Problem Noted Date Resolved Date Right inguinal hernia 06/04/2022 06/12/2022 documented as of this encounter (statuses as of 06/13/2022) [facility] History of Past illness Narrative* Problem Noted Date Resolved Date Right inguinal hernia 06/04/2022 06/12/2022 documented as of this encounter (statuses as of 06/21/2022) [facility] History of Past illness Narrative* Problem Noted Date Resolved Date Right inguinal hernia 06/04/2022 06/12/2022 documented as of this encounter (statuses as of 06/24/2022) [facility] History of Past illness Narrative* Problem Noted Date Resolved Date Right inguinal hernia 06/04/2022 06/12/2022 documented as of this encounter (statuses as of 06/25/2022) [facility] History of Past illness Narrative* Problem Noted Date Resolved Date Right inguinal hernia 06/04/2022 06/12/2022 documented as of this encounter (statuses as of 06/27/2022) [facility] History of Past illness Narrative* Problem Noted Date Resolved Date Right inguinal hernia 06/04/2022 06/12/2022 documented as of this encounter (statuses as of 07/03/2022) [facility] History of Past illness Narrative* Problem Noted Date Resolved Date Right inguinal hernia 06/04/2022 06/12/2022 documented as of this encounter (statuses as of 07/04/2022) [facility] History of Past illness Narrative* Problem Noted Date Resolved Date Right inguinal hernia 06/04/2022 06/12/2022 documented as of this encounter (statuses as of 07/24/2022) [address]-2022 History of Past illness Narrative* Problem Noted Date Resolved Date Right inguinal hernia 06/04/2022 06/12/2022 documented as of this encounter (statuses as of 09/11/2022) [address]-2022 History of Past illness Narrative* Problem Noted Date Resolved Date Right inguinal hernia 06/04/2022 06/12/2022 documented as of this encounter (statuses as of 10/08/2022) [facility] History of Past illness Narrative* Problem Noted Date Resolved Date Right inguinal hernia 06/04/2022 06/12/2022 documented as of this encounter (statuses as of 10/17/2022) [facility] History of Past illness Narrative* Problem Noted Date Resolved Date Right inguinal hernia 06/04/2022 06/12/2022 documented as of this encounter (statuses as of 11/18/2022) [address]-2022 History of Past illness Narrative* Problem Noted Date Resolved Date Right inguinal hernia 06/04/2022 06/12/2022 documented as of this encounter (statuses as of 12/06/2022) [facility] History of Past illness Narrative* Problem Noted Date Resolved Date Right inguinal hernia 06/04/2022 06/12/2022 documented as of this encounter (statuses as of 12/26/2022) [address]-2022 History of Past illness Narrative* Problem Noted Date Resolved Date Right inguinal hernia 06/04/2022 06/12/2022 documented as of this encounter (statuses as of 02/05/2023) [facility] History of Past illness Narrative* Problem Noted Date Resolved Date Right inguinal hernia 06/04/2022 06/12/2022 documented as of this encounter (statuses as of 02/12/2023) [address]-2022 History of Past illness Narrative* Problem Noted Date Diagnosed Date Resolved Date Right inguinal hernia 06/04/20222021 documented as of this encounter (statuses as of 03/31/2023) [facility] History of Past illness Narrative* Problem Noted Date Diagnosed Date Resolved Date Right inguinal hernia 06/04/20222021 documented as of this encounter (statuses as of 06/18/2023) [address]-2022 History of Past illness Narrative* Problem Noted Date Diagnosed Date Resolved Date Right inguinal hernia 06/04/20222021 documented as of this encounter (statuses as of 07/25/2023) [address]22 History of Past illness Narrative* Problem Noted Date Diagnosed Date Resolved Date Right inguinal hernia 06/04/20222021 documented as of this encounter (statuses as of 07/31/2023) [facility] History of Past illness Narrative* Problem Noted Date Diagnosed Date Resolved Date Right inguinal hernia 06/04/20222021 documented as of this encounter (statuses as of 07/31/2023) [facility] History of Past illness Narrative* Problem Noted Date Diagnosed Date Resolved Date Right inguinal hernia 06/04/20222021 documented as of this encounter (statuses as of 10/15/2023) [facility] History of Past illness Narrative* Problem Noted Date Diagnosed Date Resolved Date Right inguinal hernia 06/04/20222021 documented as of this encounter (statuses as of 11/13/2023) [facility] History of Past illness Narrative* Problem Noted Date Diagnosed Date Resolved Date Right inguinal hernia 06/04/20222021 documented as of this encounter (statuses as of 11/24/2023) [facility] History of Past illness Narrative* Problem Noted Date Diagnosed Date Resolved Date Right inguinal hernia 06/04/20222021 documented as of this encounter (statuses as of 11/25/2023) [facility] History of Present illness Narrative* Robel Onofre, DO - 06/04/2022 7:35 AM EDT CC: Todd Matamoros is a 82 year old male who presents to the office for follow up. HPI: Macular degeneration, continues to progress, no new recent interventions received. BPH, long standing, use of Flomax and Proscar with improvement/relief, symptoms much improved HTN, CAD, aortic aneurysm, well controlled pulse and BP, taking medications as prescribed. Will be having upcoming inguinal hernia repair by Dr. Tesfaye Overall feeling well other than intermittent discomfort with inguinal hernia area. Will be having this repair next week. PAST MEDICAL HISTORY Diagnosis Date Acute bronchitis Aneurysm of abdominal aorta 04/20/2011. Lower abdomen. BPH (benign prostatic hyperplasia) CAD (coronary artery disease) Diverticulosis of colon (without mention of hemorrhage) GERD (gastroesophageal reflux disease) Hyperlipidemia Hypertension Internal hemorrhoids without mention of complication Macular degeneration NSTEMI (non-ST elevated myocardial infarction) ([facility]) 10/28/2019 Osteoarthritis of left hip Paresthesia PMH - PAST MEDICAL HISTORY OF sood PMH - PAST MEDICAL HISTORY OF heart problems PMH - PAST MEDICAL HISTORY OF problems with disc PMH - PAST MEDICAL HISTORY OF age 7 rheumatic fever PMH - PAST MEDICAL HISTORY OF syncope Spinal stenosis, unspecified region other than cervical lumbar Urinary incontinence PAST SURGICAL HISTORY Procedure Laterality Date ARTHRP ACETBLR/PROX FEM PROSTC AGRFT/ALGRFT Left 11/26/2017 Dr. Sukhjinder Lewis AVASTIN (BEVACIZUMAB) 1.25MG INTRAVITREAL INJECTION OD (RIGHT EYE) Right multiple COLONOSCOPY FLX DX W/COLLJ SPEC WHEN PFRMD 07/28/07 D[facility] RPR ANEURYSM ABDOMINAL AORTA 04/20/2011 [place] EYLEA (AFLIBERCEPT) 2MG INTRAVITREAL INJECTION OD (RIGHT EYE) Right 2017 x 3 OTHER 10/28/2019 PTCA/BRYSON X2 in the saphenous vein graft to OM1. PAST SURGICAL HISTORY OF 09/1996 CABG PAST SURGICAL HISTORY OF 2004, 2016 Back PAST SURGICAL HISTORY OF cardiac cath PAST SURGICAL HISTORY OF 2004 right hip replacement PAST SURGICAL HISTORY OF 06/2007 surveillance cardiac cath PAST SURGICAL HISTORY OF 12/2009 Heart Cath PAST SURGICAL HISTORY OF Left 11/2017 Left Hip Surgery PERIPH ANEUR ARM [facility]ADIJAH MAP INPT 2010 PRICARDIECTOMY STOT/COMPL W/CARDPULM BYPASS 1996 TONSILLECTOMY PRIMARY/SECONDARY <AGE 11 age 8 Tonsillectomy XCAPSL CTRC RMVL INSJ IO LENS PROSTH W/O ECP Bilateral Cataract Extraction with PC IOL Social History: Social History Tobacco Use Smoking status: Former Types: Cigarettes Quit date: 05/27/1982 Years since quittin.0 Smokeless tobacco: Never Vaping Use Vaping Use: Never used Substance Use Topics Alcohol use: No Drug use: No FAMILY HISTORY Problem Relation Age of Onset Heart Mother age 60 [place], smoker None Father age 77 MVA Cataract Father No Known Problems Sister No Known Problems Brother No Known Problems Sister No Known Problems Sister No Known Problems Sister Coronary Artery Disease Brother Coronary Artery Disease Brother Current Outpatient prescriptions: lisinopril (ZESTRIL, PRINIVIL) 5 mg tablet Take 1 tablet by mouth once daily. hydroCHLOROthiazide (HYDRODIURIL, ESIDRIX) 12.5 mg capsule Take 1 capsule by mouth once daily. amLODIPine (NORVASC) 5 mg tablet Take 1 tablet by mouth once daily. simvastatin (ZOCOR) 20 mg tablet Take 1 tablet by mouth daily at bedtime. finasteride (PROSCAR) 5 mg tablet Take 1 tablet by mouth once daily. atenolol (TENORMIN) 50 mg tablet Take 1 tablet by mouth once daily. tamsulosin (FLOMAX) 0.4 mg Take 2 capsules by mouth once daily. triamcinolone acetonide (KENALOG) 0.1 % cream Apply 1 application to affected area twice daily. Foreczema, Apply sparingly to area for rash/itching. isosorbide mononitrate ER (IMDUR) 30 mg 24 hr tablet Take 1 tablet by mouth once daily. vit C/E/Zn/coppr/lutein/zeaxan (PRESERVISION AREDS 2 ORAL) Take 2 tablets by mouth twice daily. omeprazole 20 mg capsule Take 20 mg by mouth once daily. Take one(1) tablet daily. Aspirin 81 mg ORAL Tab Take one(1) tablet daily. clopidogrel (PLAVIX) 75 mg tablet Take 1 tablet by mouth once daily. Cholecalciferol, Vitamin D3, 50 mcg (2,000 unit) cap Take 1 capsule by mouth once daily. cyanocobalamin (VITAMIN B-12) 1,000 mcg tab Take 1 tablet by mouth once daily. Allergies: ALLERGIES No Known Allergies ROS: See HPI PE: 06/03/22 1047 BP: 120/66 Pulse: 60 Resp: 16 Weight: 81.6 kg (180 lb) Gen: A&O, NAD, non-toxic appearing, Pleasant, cooperative HEENT: NT/AC, PERRLA, EOMs intact b/l, visually impaired, nares clear and patent b/l, pharynx without erythema, exudate or lesions. Uvula midline. MMM, EACs without erythema or debris. TMs pearly mcarthur with intact landmarks b/l. Wearing hearing aides Neck: supple, No cervical LAD, no thyromegaly, no carotid bruits CV: RRR, normal S1 and S2, no murmurs, no gallops, no rubs, Pulses 2+ and symmetric in UE and LE b/l Lungs: normal respiratory effort, CTA b/l, no wheezing or rhonchi or rales Abd: soft, NT, ND, +BS, no hepatosplenomegaly Inguinal hernia present groin without pain today MS: FROM all 4 extremities, gait steady but slowed Neuro: CN II-XII intact b/l, sensation intact. ASSESSMENT/PLAN: 1. Hypertension, essential - ICD9: 401.9, ICD10: I10 (primary diagnosis) - good control - Continue current medication(s) - Encouraged dietary sodium restriction/DASH diet - Recommended regular aerobic exercise. - Recommend home blood pressure monitoring, to bring results in on next visit - Discussed need and benefit for weight loss. - Goal of BP <130/80 2. Encounter for immunization - ICD9: V03.89, ICD10: Z23 - INFLUENZA SEASONAL QUADRIVALENT HIGH DOSE AGE 65+ 3. Vitamin D deficiency - ICD9: 268.9, ICD10: E55.9 Continue supplement, recheck labs in 6 months. - VITAMIN D 25 HYDROXY 4. Vitamin B12 deficiency - ICD9: 266.2, ICD10: E53.8 Continue supplement, recheck labs in 6 months - VITAMIN B12 BLOOD 5. Elevated serum creatinine - ICD9: 790.99, ICD10: R79.89 Recheck labs in 6 months, stable, hx of, need for increased water intake. - TSH BLD 6. Fatigue, unspecified type - ICD9: 780.79, ICD10: R53.83 - recheck labs - TSH BLD 7. Familial hypercholesterolemia - ICD9: 272.0, ICD10: E78.01 Stable, diet and medication controlled. Hx of CAD and NSTEMI, no recent symptoms. - COMP METABOLIC PANEL - CBC - LIPID PANEL BASIC - TSH BLD 8. BPH associated with nocturia - ICD9: 600.01, 788.43, ICD10: N40.1, R35.1 - recheck labs. - TSH BLD - PSA/PROSTSPECAG SCRN 9. Coronary artery disease due to lipid rich plaque - ICD9: 414.00, 414.3, ICD10: I25.10, I25.83 Stable, diet and medication controlled. Hx of CAD and NSTEMI, no recent symptoms. 10. Bilateral exudative age-related macular degeneration, unspecified stage (HCC) - ICD9: 362.52, ICD10: H35.3230 F/u with Cardiology Technician 11. Screening for prostate cancer - ICD9: V76.44, ICD10: Z12.5 - Counseled on healthy diet and regular exercise - PSA/PROSTSPECAG SCRN 12. Thrombocytopenia (HCC) - ICD9: 287.5, ICD10: D69.6 Stable, chronic 13. Non-recurrent bilateral inguinal hernia without obstruction or gangrene - ICD9: 550.92, ICD10: K40.20 - f/u with Dr. Tesfaye for surgical repair Robel Onofre DO To ER if develops chest pain, shortness of breath, or severe worsening of symptoms. Discussed risks, benefits, alternatives, and potential side effects of medications. Patient expressed understanding and agreed with the plan. Robel Onofre DO [address] [place] [address] [facility] History and physical note * Luiza Rivers APRN.MACHINIST APPRENTICE - 05/31/2022 8:55 AM EDT HISTORY AND PHYSICAL EXAMINATION SERVICE DATE: 05/31/2022 SERVICE TIME: 8:55 AM PRIMARY CARE PHYSICIAN: Robel Onofre DO REASON FOR VISIT: Todd Matamoros is a 82 year old male who is scheduled for Procedure(s) with comments: LAPAROSCOPY SURGICAL REPAIR INITIAL INGUINAL HERNIA W/ MESH (Right) - Laparoscopic Inguinal Hernia Repair right with mesh possible bilateral at the request of Dr. Florencio Tesfaye for consultation. My final recommendation will be communicated back to the requesting physician by way of shared medical record or letter. Subjective The patient has the following: ACTIVE PROBLEM LIST ACTINIC KERATOSES (Premalignant AK's) ACTINIC DAMAGE///CHR SOLAR SKIN DAMAGE NOS Inflamed Seborrheic Keratosis SOLAR LENTIGINES Benign Neoplasm of Skin of Other and Unspecified Parts of Face Benign Neoplasm of Skin of Trunk, Except Scrotum Other Seborrheic Keratosis Nevus, Non-Neoplastic Scar Condition and Fibrosis of Skin Eczema Dermatitis and Other Eczema, due to Unspec Xerosis Cutis Unspecified Pruritic Disorder Melanocytic Nevus Moles: Intradermal types: of Face Bph Associated With Nocturia Bilateral Exudative Age-Related Macular Degeneration (Hcc) Coronary Artery Disease Due to Lipid Rich Plaque Gerd With Esophagitis Familial Hypercholesterolemia Nstemi (Non-St Elevated Myocardial Infarction) (Hcc) Diarrhea Gastroesophageal Reflux Disease With Esophagitis Without Hemorrhage Vitamin D Deficiency Fatigue Dysthymia Eczema Hypertension, Essential COVID-19 Immunization Status Overdue - COVID-19 VACCINE (4 - Booster for Pfizer series) Overdue since 01/01/2021 11/06/2020 Imm Admin: COVID-19 vaccine, age 12+ yr (PFIZER-BIONTECH - PURPLE TOP) 10/16/2020 Imm Admin: COVID-19 vaccine, age 12+ yr (PFIZER-BIONTECH - PURPLE TOP) 09/16/2020 Imm Admin: COVID-19 vaccine, age 12+ yr (PFIZER-BIONTECH - PURPLE TOP) CHIEF COMPLAINT: Pre-op exam HPI: GINNY is a 82 yo seen for PAC due to scheduled above surgery because of an inguinal hernia. 05/21/2022 Dr. Tesfaye HPI: Todd is a 82 year old male with a complaint of a bulge and discomfort in his right inguinalregion. The patient notes discomfort in this area with lifting and straining. The symptoms have increased, over the past few weeks. The patient notes no symptoms of bowel obstruction and denies nausea or vomiting. Patient noticed this after he was trying to work on a stump and then working his barn on his tractor. He is never noticed any bulges coming out he is never had any change in his bowel or bladder habits. He had a CAT scan of his abdomen and pelvis which did show bilateral inguinal hernias on the CATscan. REVIEW OF SYSTEMS: General: No weight loss, malaise or fevers. Neurological: No history of TIA's, stroke, BOOKS BINDER tumor, impaired sensorium, hemiplegia, paraplegia orquadraplegia. No neurological symptoms or problems. Respiratory: No history of current cough or dyspnea, or pneumonia in the past 6 weeks. No history of respiratory/pulmonary symptoms or problems. Cardiovascular: Positive for: abdominal aortic aneurysm (s/p repair), anticoagulation therapy (ASA, Plavix), CAD, hyperlipidemia (on rx), hypertension (on rx) and open heart surgery Patient's last office visit with field scout, [facility], The following tests and/or procedures were performed: cardiac stents. Negative for: arrhythmia, atrial fibrillation, chest pain, CHF, congenital heart defect, DVT/PE, recent [place], murmur/valvular heart disease and valve surgery. GI: See HPI. Positive for: GERD (on rx) Negative for: abdominal pain, dysphagia, hepatitis, irritable bowel syndrome, inflammatory bowel disease, liver disease, nausea, pancreatitis, vomiting and ETOH >2 drinks/day. : Positive for: BPH (on rx). Negative for: urinary incontinence, nephrolithiasis, renal failure and urinary tract infection. Endocrine: No history of diabetes. Has not taken steroids within the past 30 days. No history of endocrinological symptoms or problems. Hematology: +thrombocytopenia Positive for: chronic anti-coagulation/platelet meds. Patient is on anti- coagulation/platelet medication(s): Aspirin and Plavix. Negative for: anemia, bruises/bleeds easily and transfusion of at least 4 units within 72 hours prior to surgery. Oncology: No history of CA metastasis, chemo within 30 days, or radiotherapy within 90 days. No history of oncological symptoms or problems. Psych: No history of psychiatric symptoms or problems. Musculoskeletal: Negative for joint pain or swelling, back pain or muscle pain. Skin: Negative for lesions, rash and itching. PAST MEDICAL HISTORY Diagnosis Date Acute bronchitis Aneurysm of abdominal aorta 04/20/2011. Lower abdomen. BPH (benign prostatic hyperplasia) CAD (coronary artery disease) Diverticulosis of colon (without mention of hemorrhage) GERD (gastroesophageal reflux disease) Hyperlipidemia Hypertension Internal hemorrhoids without mention of complication Macular degeneration NSTEMI (non-ST elevated myocardial infarction) (HCC) 10/28/2019 Osteoarthritis of left hip Paresthesia PMH - PAST MEDICAL HISTORY OF sood PMH - PAST MEDICAL HISTORY OF heart problems PMH - PAST MEDICAL HISTORY OF problems with disc PMH - PAST MEDICAL HISTORY OF age 7 rheumatic fever PMH - PAST MEDICAL HISTORY OF syncope Spinal stenosis, unspecified region other than cervical lumbar Urinary incontinence PAST SURGICAL HISTORY Procedure Laterality Date ARTHRP ACETBLR/PROX FEM PROSTC AGRFT/ALGRFT Left 11/26/2017 Dr. Sukhjinder Lewis AVASTIN (BEVACIZUMAB) 1.25MG INTRAVITREAL INJECTION OD (RIGHT EYE) Right multiple COLONOSCOPY FLX DX W/COLLJ SPEC WHEN PFRMD 07/28/07 DIR RPR ANEURYSM ABDOMINAL AORTA 04/20/2011 [facility] EYLEA (AFLIBERCEPT) 2MG INTRAVITREAL INJECTION OD (RIGHT EYE) Right 2017 x 3 OTHER 10/28/2019 PTCA/BRYSON X2 in the saphenous vein graft to OM1. PAST SURGICAL HISTORY OF 09/1996 CABG PAST SURGICAL HISTORY OF 2004, 2016 Back PAST SURGICAL HISTORY OF cardiac cath PAST SURGICAL HISTORY OF 2004 right hip replacement PAST SURGICAL HISTORY OF 06/2007 surveillance cardiac cath PAST SURGICAL HISTORY OF 12/2009 Heart Cath PAST SURGICAL HISTORY OF Left 11/2017 Left Hip Surgery PERIPH ANEUR ARM KHADIJAH MAP INPT 2010 PRICARDIECTOMY STOT/COMPL W/CARDPULM BYPASS 1996 TONSILLECTOMY PRIMARY/SECONDARY <AGE 11 age 8 Tonsillectomy XCAPSL CTRC RMVL INSJ IO LENS PROSTH W/O ECP Bilateral Cataract Extraction with PC IOL FAMILY HISTORY Problem Relation Age of Onset Heart Mother age 60 [place], smoker None Father age 77 MVA Cataract Father No Known Problems Sister No Known Problems Brother No Known Problems Sister No Known Problems Sister No Known Problems Sister Coronary Artery Disease Brother Coronary Artery Disease Brother Social History Tobacco Use Smoking status: Former Types: Cigarettes Quit date: 05/27/1982 Years since quittin.0 Smokeless tobacco: Never Vaping Use Vaping Use: Never used Substance Use Topics Alcohol use: No Drug use: No Prior to Admission medications as of 05/31/22 0847 Medication Sig Last Dose Taking lisinopril (ZESTRIL, PRINIVIL) 5 mg tablet Take 1 tablet by mouth once daily. Taking Yes hydroCHLOROthiazide (HYDRODIURIL, ESIDRIX) 12.5 mg capsule Take 1 capsule by mouth once daily. Taking Yes amLODIPine (NORVASC) 5 mg tablet Take 1 tablet by mouth once daily. Taking Yes Cholecalciferol, Vitamin D3, 50 mcg (2,000 unit) cap Take 1 capsule by mouth once daily. Taking Yes cyanocobalamin (VITAMIN B-12) 1,000 mcg tab Take 1 tablet by mouth once daily. Taking Yes simvastatin (ZOCOR) 20 mg tablet Take 1 tablet by mouth daily at bedtime. Taking Yes finasteride (PROSCAR) 5 mg tablet Take 1 tablet by mouth once daily. Taking Yes atenolol (TENORMIN) 50 mg tablet Take 1 tablet by mouth once daily. Taking Yes tamsulosin (FLOMAX) 0.4 mg Take 2 capsules by mouth once daily. Taking Yes clopidogrel (PLAVIX) 75 mg tablet Take 1 tablet by mouth once daily. Taking Yes triamcinolone acetonide (KENALOG) 0.1 % cream Apply 1 application to affected area twice daily. Foreczema, Apply sparingly to area for rash/itching. Taking Yes sertraline (ZOLOFT) 25 mg tablet Take 1 tablet by mouth daily at bedtime. Taking Yes isosorbide mononitrate ER (IMDUR) 30 mg 24 hr tablet Take 1 tablet by mouth once daily. Taking Yes vit C/E/Zn/coppr/lutein/zeaxan (PRESERVISION AREDS 2 ORAL) Take 2 tablets by mouth twice daily. Taking Yes omeprazole 20 mg capsule Take 20 mg by mouth once daily. Take one(1) tablet daily. Taking Yes Aspirin 81 mg ORAL Tab Take one(1) tablet daily. Taking Yes No medication comments found. ALLERGIES No Known Allergies Objective PHYSICAL EXAM: General: alert and oriented (x3) and healthy appearance. Pertinent negatives noted - not distressed. Skin: normal color, no rash or lesions. HEENT: EOM intact and pupils equal round. Pertinent negatives noted - no carotid bruit. Cardiovascular: regular rate and rhythm, normal S1 and S2, no rub, murmurs, or gallop. Respiratory: normal breath sounds, no wheezes or crackles. No chest wall deformity or tenderness. Abdomen: soft. Pertinent negatives noted - not tender. Extremities: no deformity, no edema or tenderness, no joint swelling or clubbing. Neurological: normal cognition and motor skills. Gait normal. No weakness or sensory deficit. PAIN ASSESSMENT: VITALS: BP 100/58 Pulse 51 Temp 97.7 Resp 16 Ht 5' 7 (1.70m) Wt 181 lb 9.6 oz (82.4kg) SpO2 96% BMI 28.44 kg/(m^2). Diagnostic tests reviewed for today's visit: Lab Value Units Date High Low HB 14.7 g/dL 01/31/2022 17.0 13.0 HCT 43.5 % 01/31/2022 51.0 39.0 WBC 5.41 k/uL 01/31/2022 11.00 3.70 PLT 137 k/uL 01/31/2022 400 150 NA 135 mmol/L 01/31/2022 144 136 K 3.9 mmol/L 01/31/2022 5.1 3.7 GLUC 111 mg/dL 01/31/2022 99 74 BUN 24 mg/dL 01/31/2022 24 9 CREAT 1.31 mg/dL 01/31/2022 1.22 0.73 PTSEC No results within date range. INR No results within date range. APTT No results within date range. ALT 10 U/L 01/31/2022 54 10 AST 15 U/L 01/31/2022 40 14 TBILI 0.9 mg/dL 01/31/2022 1.3 0.2 TSH No results within date range. Lab Value Units Date High Low HCGQT No results within date range. UHCG No results within date range. HCG, BODY* No results within date range. Lab Value Units Date High Low ABORHD No results within date range. ABSCREEN No results within date range. Hemoglobin A1C (%) Date Value 05/29/2021 5.2 12/05/2020 5.3 No results found for this or any previous visit (from the past 8760 hour(s)). No results found for this or any previous visit (from the past 55769 hour(s)). Assessment BPH associated with nocturia Assessment: controlled on rx Coronary artery disease due to lipid rich plaque Assessment: s/p CABG and stent, daily statin, BB, and ASA therapy. Also on Plavix, AC letter faxed to [employer] scout office. Follows [facility], last OV 09/2021 scanned into [employer]. Denies CP, palpitations or SOB Familial hypercholesterolemia Assessment: c/w statin Gastroesophageal ref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 hemorrhage Assessment: controlled on rx Hypertension, essential Assessment: controlled on rx Last 14 BP Last 14 Encounter BP Readings: Date: BP: 05/31/2022 100/58 05/21/2022 133/63 01/31/2022 118/58 01/11/2022 118/58 12/26/2021 120/76 12/12/2021 100/70 06/06/2021 120/60 03/06/2021 130/80 12/05/2020 120/60 06/06/2020 120/70 02/09/2020 110/60 10/01/2019 130/60 08/09/2019 128/66 04/17/2007 118/70 AAA (abdominal aortic aneurysm) Assessment: s/p repair, following OS vascular 07/10/2021 Karolina Almanzar CNP, OSH IMAGING Aorta Bypass Graft Complete 06/20/21 Conclusions 1. Right resting MIRNA is 1.07. This is within the normal range. 2. Left resting MIRNA is 1.10. This is within the normal range. 3. There is a 4.5 cm infrarenal abdominal aortic aneurysm. 4. Patent aortic endograft with no evidence of an endoleak. 5. The velocities are normal in both limbs. ASSESSMENT/PLAN: Problem List Items Addressed This Visit Abdominal aortic aneurysm (AAA) without rupture (HCC) - Primary 1. Stable follow-up of abdominal aortic aneurysm(s) - Aortoiliac Duplex - 1 year--order already placed - Continue ASA/Statin - Discussed importance of maintaining normal blood pressure of 120/80 mmHg. - Advised at least 30 minutes of safe aerobic activity daily. Follow-Up: 1 year Thrombocytopenia (HCC) Assessment: hx, stable,no tx Platelet Count Date Value Ref Range Status 05/31/2022 126 (L) 150 - 400 k/uL Final Acute renal insufficiency Assessment: remote lab, recheck normal Creatinine Date Value Ref Range Status 05/31/2022 1.15 0.73 - 1.22 mg/dL Final 01/31/2022 1.31 (H) 0.73 - 1.22 mg/dL Final 05/29/2021 1.12 0.73 - 1.22 mg/dL Final 12/05/2020 0.94 0.73 - 1.22 mg/dL Final Day Activity Status Index: METS: Climb a flight of stairs or walk up a hill (5.50 METs) DASI Score: 5.5 Patient denies any chest pain or undue shortness of breath with the above physical activity. Clinical Frailty Scale: 4. Apparently vulnerable STOP-Bang Score: Has or is being treated for high blood pressure Patient over 50 years old Male patient Denies snoring loudly Denies feeling tired, fatigued, or sleepy during the daytime Has not been observed to stop breathing or choking/gasping during sleep BMI less than or equal to 35 kg/m^2 Does not have a large neck STOP-Bang Score: 3 [id number] Score: Age: >=75 Sex: male CHF history: No Hypertension history: Yes Stroke/TIA/thromboembolism history: No Vascular disease history: Yes Diabetes history: No [id number] Score: 4 ARISCAT Score: Age: >80 Preoperative SpO2: >=96% Respiratory infection in the last month: No Preoperative anemia: No Surgical incision: peripheral Duration of surgery: <2 hrs Emergency procedure: No ARISCAT Score: 16 ASA Class: 3 ANESTHESIA FINDINGS: Intubation History: No history of difficult intubation Significant Anesthesia Considerations: none Airway History: No history of difficult airway I - PHYSICAL EVALUATION AIRWAYTracheostomy tube not present Mallampati: II. TM distance: >3 FB. Neck ROM: full ROM without neurological symptoms. Mouth opening: adequate. Short neck: no. Thick neck: no DENTAL Dentures, upper: complete. II - ANESTHESIA PLAN ASA Score: 3 Anesthetic Plan: other Anesthetic plan additional comments: *PACC/TCI - anesthesia choice. Informed Consent Anesthetic risks, benefits, alternatives, personnel and consent discussed: yes. Patient / Responsible Republican agrees to proceed: yes Patient / Surrogate agrees to blood products: blood products not planned Prepared for Surgery: optimally prepared for surgery, pending [see comment]. Labs AC letter faxed to [facility] CONSULTS: Patient does not require consults for optimization at this time Planned Anesthetic: other anesthesia choice The Following Tests/Procedures Have Been Initiated: Orders Placed This Encounter >CBC + AUTO DIFF Standing Status: Future Standing Expiration Date: 07/31/2022 >BMP Standing Status: Future Standing Expiration Date: 07/31/2022 Instructions Given to Patient: Instructions located in the after visit summary. Patient given verbal and written preop instructions and voices comprehension and compliance. SIGNATURE: Luiza Rivers APRN.CNP PATIENT NAME: Todd Matamoros DATE: May 31, 2022 TIME: 8:55 AM PAGER/CONTACT #: documented in [facility]Dun[facility] Instructions* Patient Instructions* Luiza Rivers APRN.CNP - 05/31/2022 8:55 AM EDT PATIENT PREOPERATIVE INSTRUCTIONS Florencio Tesfaye MD has scheduled you for your procedure at this surgery center: [facility]: [phone] -- [address] [facility] [address]. Please read below carefully for your personalized instructions. Dietary Restrictions: - No solid food after midnight. - You may have 12 ounces of clear liquids (water, clear juices such as apple juice or gatorade, carbonated beverages, clear tea, black coffee, jello) until 2 hours before scheduled arrival at facility. No red/purple coloring and no creamer/sugar Medications: Unless instructed differently below, stay on all of your medications until your surgery. Approved medications to take the morning of surgery with a sip of water: Aspirin, Amlodipine, Atenolol, Finasteride, Isosorbide, Omeprazole, Sertraline, Tamsulosin Do not take Lisinopril or Hydrochlorothiazide the morning or evening prior to surgery If you take any medications for erectile dysfunction-Cialis (Tadalafil), Levitra, Staxyn (Vardenafil) Viagra (Sildenenafil please do not take these for 48 hours before surgery. If you start any new medications after today's visit, please contact the surgeon's office. Blood Thinning Medications: - Stop NSAIDS (Ibuprofen, Advil, Aleve, Motrin, Celebrex, Mobic, etc.) 7 days before surgery, as directed by your surgeon. - Stop Plavix 5 days before surgery or as directed by physician. - Stop Vitamin E, ALL multi-vitamins, herbals and dietary supplements 7 days before surgery. - You may take Tylenol (Acetaminophen) or any of your pain medications that do not contain aspirin or NSAIDS as needed. Important Reminders: - If you use CPAP/BIPAP, bring the machine with you to the surgery center. - If you are prescribed inhalers for breathing, continue using them. - Candy, mints, and tobacco products are NOT permitted the morning of surgery. - Hearing aids, dentures and glasses may be worn the morning of surgery. - NO jewelry, body piercings, makeup, hairpins or contacts are to be worn the day of surgery. If you develop symptoms such as a fever, cold, or flu, or have other changes to your health within TWO DAYS of scheduled surgery or the morning of surgery, please contact the surgery center above. Personal Belongings: -Please have photo ID and insurance cards. -If you do not have a copy of advance directives on file with us, please bring a copy with you on the day of surgery. - Leave ALL valuables and money at home or with family members. For Outpatient Procedures: - YOU MUST HAVE A RESPONSIBLE DIGITAL ARCHIVIST TAKE YOU HOME. A FIELD [employer] MAN OR BELT REPAIRER CANNOT BE MADE A RESPONSIBLE DIGITAL ARCHIVIST. - We recommend that a responsible person stays with you overnight to take care of you. - You cannot stay in a hotel alone after outpatient surgery. You will not be permitted to have yoursurgery, if you do not have someone to take care of you. Arrival Time for Surgery: - The Surgery Center or hospital where you are having surgery will call the afternoon before surgery (or Friday for Friday surgery) with a scheduled arrival time. - If you have not heard by 4 pm, please contact the surgery center above. Please be aware that emergency situations arise, which may delay or change your surgical time. If this happens, we will notify you as soon as possible and regret any inconvenience. If you already have an Advance Directive, please fax a copy to [phone] or email to for it to be added to your chart. If you do not have an Advance Directive, you can find the appropriate form and more information at [email or web address]. We recommend that youcomplete the Advance Directive form found on the website and bring it with you the day of your surgery. It can be witnessed and scanned into your chart that day. Luiza Rivers APRN.LEO documented in this encounterDun[facility]10-03-[facility]22 History of Present illness Narrative* Florencio Tesfaye MD - 05/27/2022 7:54 AM EDT HISTORY AND PHYSICAL Todd Matamoros 1940 REFERRING PHYSICIAN: Self CHIEF COMPLAINT: Follow Up (Bilateral inguinal hernia) HPI: Todd is a 82 year old male with a complaint of a bulge and discomfort in his right inguinalregion. The patient notes discomfort in this area with lifting and straining. The symptoms have increased, over the past few weeks. The patient notes no symptoms of bowel obstruction and denies nausea or vomiting. Patient noticed this after he was trying to work on a stump and then working his barn on his tractor. He is never noticed any bulges coming out he is never had any change in his bowel or bladder habits. He had a CAT scan of his abdomen and pelvis which did show bilateral inguinal hernias on the CATscan. 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 Lower abdomen. BPH (benign prostatic hyperplasia) CAD (coronary artery disease) Diverticulosis of colon (without mention of hemorrhage) GERD (gastroesophageal reflux disease) Hyperlipidemia Hypertension Internal hemorrhoids without mention of complication Macular degeneration NSTEMI (non-ST elevated myocardial infarction) ([facility]) 10/28/2019 Osteoarthritis of left hip Paresthesia PMH - PAST MEDICAL HISTORY OF sood PMH - PAST MEDICAL HISTORY OF heart problems PMH - PAST MEDICAL HISTORY OF problems with disc PMH - PAST MEDICAL HISTORY OF age 7 rheumatic fever PMH - PAST MEDICAL HISTORY OF syncope Spinal stenosis, unspecified region other than cervical lumbar Urinary incontinence PAST SURGICAL HISTORY Procedure Laterality Date ARTHRP ACETBLR/PROX FEM PROSTC AGRFT/ALGRFT Left 11/26/2017 Dr. Sukhjinder Lewis AVASTIN (BEVACIZUMAB) 1.25MG INTRAVITREAL INJECTION OD (RIGHT EYE) Right multiple COLONOSCOPY FLX DX W/COLLJ SPEC WHEN PFRMD 07/28/07 DIR RPR ANEURYSM ABDOMINAL AORTA 04/20/2011 [place] EYLEA (AFLIBERCEPT) 2MG INTRAVITREAL INJECTION OD (RIGHT EYE) Right 2016 x 3 OTHER 10/28/2019 PTCA/BRYSON X2 in the saphenous vein graft to OM1. PAST SURGICAL HISTORY OF 09/1996 CABG PAST SURGICAL HISTORY OF 2004, 2016 Back PAST SURGICAL HISTORY OF cardiac cath PAST SURGICAL HISTORY OF 2004 right hip replacement PAST SURGICAL HISTORY OF 06/2007 surveillance cardiac cath PAST SURGICAL HISTORY OF 12/2009 Heart Cath PAST SURGICAL HISTORY OF Left 11/2017 Left Hip Surgery PERIPH ANEUR ARM KHADIJAH MAP INPT 2010 PRICARDIECTOMY STOT/COMPL W/CARDPULM BYPASS 1996 TONSILLECTOMY PRIMARY/SECONDARY <AGE 11 age 8 Tonsillectomy XCAPSL CTRC RMVL INSJ IO LENS PROSTH W/O ECP Bilateral Cataract Extraction with PC IOL Current Outpatient Medications Medication Sig lisinopril (ZESTRIL, PRINIVIL) 5 mg tablet Take 1 tablet by mouth once daily. hydroCHLOROthiazide (HYDRODIURIL, ESIDRIX) 12.5 mg capsule Take 1 capsule by mouth once daily. amLODIPine (NORVASC) 5 mg tablet Take 1 tablet by mouth once daily. Cholecalciferol, Vitamin D3, 50 mcg (2,000 unit) cap Take 1 capsule by mouth once daily. cyanocobalamin (VITAMIN B-12) 1,000 mcg tab Take 1 tablet by mouth once daily. simvastatin (ZOCOR) 20 mg tablet Take 1 tablet by mouth daily at bedtime. finasteride (PROSCAR) 5 mg tablet Take 1 tablet by mouth once daily. atenolol (TENORMIN) 50 mg tablet Take 1 tablet by mouth once daily. tamsulosin (FLOMAX) 0.4 mg Take 2 capsules by mouth once daily. clopidogrel (PLAVIX) 75 mg tablet Take 1 tablet by mouth once daily. triamcinolone acetonide (KENALOG) 0.1 % cream Apply 1 application to affected area twice daily. Foreczema, Apply sparingly to area for rash/itching. sertraline (ZOLOFT) 25 mg tablet Take 1 tablet by mouth daily at bedtime. isosorbide mononitrate ER (IMDUR) 30 mg 24 hr tablet Take 1 tablet by mouth once daily. vit C/E/Zn/coppr/lutein/zeaxan (PRESERVISION AREDS 2 ORAL) Take 2 tablets by mouth twice daily. omeprazole 20 mg capsule Take 20 mg by mouth once daily. Take one(1) tablet daily. clobetasol 0.05 % ointment Apply selectively to dermatitis and/or psoriasis red scaling patch//plaque selectively on lower leg calf once to twice per day (qday to bid) until clear (up to a maximum of4 to 6 wks if needed) and then stop or taper off as able. Can then substitute a bland moisturizer cream such as CeraVe cream twice per day as able. ceramides 1,3,6-11(CERAVE TOPICAL CREAM) Apply to dry skin areas and psoriasis/eczema areas of hands bid to qid and prn as directed and tolerated. Aspirin 81 mg ORAL Tab Take one(1) tablet daily. No current facility-administered medications for this visit. ALLERGIES: Patient has no known allergies. PERSONAL HISTORY: Social History Tobacco Use Smoking status: Former Types: Cigarettes Quit date: 05/27/1982 Years since quittin.0 Smokeless tobacco: Never Vaping Use Vaping Use: Never used Substance Use Topics Alcohol use: No Drug use: No FAMILY HISTORY: FAMILY HISTORY Problem Relation Age of Onset Heart Mother age 60 [place], smoker None Father age 77 MVA Cataract Father No Known Problems Sister No Known Problems Brother No Known Problems Sister No Known Problems Sister No Known Problems Sister Coronary Artery Disease Brother Coronary Artery Disease Brother REVIEW OF SYSTEMS: General: The patient NOTES fatigue, denies weight loss, denies weight gain, denies feeling hot, anddenies feelings of cold. Eyes: The patient denies glaucoma, denies eye injury/surgery, wears glasses or contacts. Ear/Nose/Throat: The patient denies allergies, denies hayfever, denies ear infections, and denies bloody noses. Cardiovascular: The patient denies chest pain, NOTES heart disease, NOTES high blood pressure,denies cardiac stent, NOTES prior heart attack, denies irregular heart beat, denies high cholesterol, denies poor circulation, denies heart failure, other cardiac issues, denies claudication, denies cold feet, denies peripheral arterial stent. Respiratory: The patient denies tuberculosis, denies pneumonia, denies frequent cough, denies pulmonary embolism, denies shortness of breath, and denies coughing up blood. Gastrointestinal: The patient denies difficulty swallowing, NOTES acid reflux, denies ulcers, denies vomiting, denies jaundice/hepatitis, denies gallbladder problems, denies black or tarry stools, denies hemorrhoids, denies bleeding from rectum, denies diverticulitis, denies constipation, denies diarrhea, denies loss of stool control, and NOTES hernias. Kidney/Bladder: The patient denies kidney stones, denies urine infections, and denies bloody urine. Skin: The patient denies a history of skin cancer, denies bleeding/changing moles, and denies a history of skin rash. Neurologic: The patient denies a history of epilepsy/convulsions, denies headaches, denies head/spinal injuries, and denies stroke/TIA. Psychiatric: The patient denies psychiatric medications, NOTES depression, and denies voices, denies substance abuse. Endocrine: The patient denies thyroid disorders, denies diabetes, and denies hormonal problems. Hematologic: The patient denies a history of bruising, denies bleeding, and denies anemia, denies blood clots. Infections: The patient denies a history of measles and mumps, denies rheumatic fever, and denies sexually transmitted diseases. Musculoskeletal: The patient denies back pain/injury, NOTES back problems, denies sciatica, denies knee/foot trouble, denies arthritis, or denies gout. s When was patient's last Mammogram screening? N/A Last Colonoscopy: 07/28/2007 PHYSICAL EXAMINATION: General: The patient is 82 year old male, well nourished, well hydrated in no acute distress. The patient is oriented to time, place, and person. VITALS: Blood pressure 133/63, pulse (!) 59, temperature 36.4 C (97.6 F), weight 82 kg (180 lb 12.8oz), SpO2 96 %. Body mass index is 28.32 kg/m . HEENT: Normal cephalic, ataumatic, pupils are equally round, sclera are anicteric, mucous membranesare moist, oropharynx is clear. Neck has no masses, asymmetry or lymphadenopathy. Thyroid is unremarkable. Respiratory: Clear to auscultation and percussion. Normal respiratory excursion and pattern. Cardiac: Examination is regular rate and rhythm. Abdominal exam: Soft, nontender, with no palpable masses. No hepatosplenomegaly. A moderate reducible right inguinal hernia, no left inguinal or umbilical hernias are noted Rectal exam: exam deferred Extremities: no clubbing, cyanosis or edema. No adenopathy. Other: LABORATORY VALUES: As Noted RADIOLOGIC STUDIES: As Noted Assessment IMPRESSION: right inguinal hernia PLAN: My plan is to perform a laparoscopic right inguinal hernia repair with mesh. The planned surgical procedure was discussed extensively with the patient. The risks, benefits, anticipated outcomesand possible complications were mentioned. [facility] that all hernia repair surgery has a chance of recurrence and/or chronic post operative pain. My staff has also explained the procedure in understandable terms and the patient was given the option to take printed material concerning the planned procedure. The patient had the opportunity to ask questions concerning the planned procedure. The patient freely consents to the planned procedure. My findings have been communicated to Dr. Robel Onofre DO via shared medical record. This note will be forwarded to Dr. Robel Onofre DO. Diagnoses: (K40.90) Right inguinal hernia (primary encounter diagnosis) Anticipated CPT Code: laparoscopic right inguinal hernia repair with mesh - 46892-008 Anticipated Anesthetic: General Patient weight: Blood pressure 133/63, pulse (!) 59, temperature 36.4 C (97.6 F), weight 82 kg (180lb 12.8 oz), SpO2 96 %. BMI: Body mass index is 28.32 kg/m . Planned antibiotic: Ancef 2gm IVPB back tender insulation board to OR SCDs needed - Yes Return to Clinic: The patient is instructed to follow-up with me 1 week post operatively. COVID (Procedure Consent) Procedure Criteria Procedure Criteria: Yes Elective The surgeon/proceduralist and patient have discussed in detail therisk of exposure to and/or potential harm posed by the COVID-19 virus with having a surgery/procedure at this time versus the risk of delaying the surgery/procedure. It is not possible to know eitherthe risk of delaying the surgery or procedure or chance of getting an infection with perfect accuracy, but a joint decision was made between the patient and the surgeon/proceduralist to proceed at this time with the scheduled surgery/procedure as indicated on the consent form. Florencio Tesfaye III, MD documented in this encounterDunlap [facility] Hospital08-15-2022 Miscellaneous Notes* Telephone Encounter - Analilia Pedersen MA - 04/08/2022 12:37 PM EDT Patient has been identified by name and date of : Yes Requested Prescriptions Pending Prescriptions Disp Refills lisinopril (ZESTRIL, PRINIVIL) 5 mg tablet 90 tablet 1 Sig: Take 1 tablet by mouth once daily. RX INSTRUCTIONS: Patient aware RX will be sent to pharmacy. No need to notify patient. Analilia Pedersen MA Kiran: 01/2022 Nov: 05/2022 Last refill: 09/2021 * Telephone Encounter - Delma Alatorre Pss - 04/08/2022 11:14 AM EDT Patient has been identified by name and date of : Yes Requested Prescriptions Pending Prescriptions Disp Refills lisinopril (ZESTRIL, PRINIVIL) 5 mg tablet 90 tablet 1 Sig: Take 1 tablet by mouth once daily. RX INSTRUCTIONS: Patient aware RX will be sent to pharmacy. No need to notify patient. Delma Alatorre Pss documented in this encounterDunlap [facility] Hospital06-27-2022 Miscellaneous Notes* Telephone Encounter - NATHAN Myers - 02/18/2022 11:19 AM EDT KIRAN 01/31/2022 NOV 06/03/2022 Please advise. Thank you. NATHAN Myers * Telephone Encounter - Haritha Arias - 02/18/2022 9:22 AM EDT Patient has been identified by name and date of : Yes Pending Prescriptions Disp Refills AMLODIPINE 5 MG TABLET 90 tablet 3 Sig: Take 1 tablet by mouth once daily. ASHLY: No RX INSTRUCTIONS: Patient aware RX will be sent to pharmacy. No need to notify patient. Haritha Arias documented in this encounterDunlap Memorial Hospital06-10-2022 Miscellaneous Notes* Telephone Encounter - Marylu Jolly Ma - 02/01/2022 10:45 AM EDT Don't see Zulema number in chart. Pt informed, verbalized understanding. Pt reports he is feeling much better. No more abdominal pain. Pt informed office will call Jadyn (daughter) to relay results to her as well. Jadyn notified and verbalized understanding Marylu Jolly Ma * Telephone Encounter - Bessie Ambrocio APRN.CNP - 02/01/2022 10:20 AM EDT Please call patient's daughter, Zulema, with results per patient and Zulema request. His vitamin D level is a bit low. I don't believe he is taking a vitamin D supplement. I'm sending one to his pharmacy for him. His vitamin B12 levels are a bit low as well. I'm sending him a daily vitamin B supplement. Iron levels look good. His platelet levels are just slightly low; however, this is chronic for him, so not acutely worrisome. His creatinine levels, which are related to his kidneys are elevated a bit. This is likely related to dehydration, like we discussed. I'd like him to make sure that he drinks at least 60-80oz of water daily. And then we'll recheck these labs again in 2 weeks. Please also see how he is feeling. At this point, I am suspecting a stomach bug/virus that he has had. However, if he does not improve/continue to improve, they should let us know early next week. Bessie Ambrocio APRN.LEO documented in this encounterDunlap [facility] Hospital06-09-2022 Miscellaneous Notes* Telephone Encounter - Bessie Ambrocio APRN.CNP - 01/31/2022 9:58 AM EDT Thank you. Bessie Ambrocio APRN.CNP * Telephone Encounter - Shahla Sofia RN - 01/31/2022 9:48 AM EDT Appointment changed to 40 minutes. Updated daughter Shy of appointment time changed to 1240 pm. Shahla Sofia RN * Telephone Encounter - Bessie Ambrocio APRN.CNP - 01/31/2022 9:36 AM EDT This needs to be changed to a 40 minute appointment, given age and number or complaints. Bessie Ambrocio APRN.CNP * Telephone Encounter - Shahla Sofia RN - 01/31/2022 9:26 AM EDT Daughter (Shy) calls to request an appointment for patient. She reports that his appetite is poor, decreased energy, nausea at times over the past two days, and continues to have bilateral groin pain from hernias. No surgical treatment recommended by Dr. Tesfaye at this time per daughter. No fever, chest pain, shortness of breath, cough vomiting, diarrhea, constipation, or bleeding. Offered VV but declined. Shahla Sofia RN documented in this encounterDunlap Memorial Hospital05-20-2022 History of Present illness Narrative* Florencio Tesfaye MD - 01/11/2022 8:13 AM EDT HISTORY AND PHYSICAL Todd Matamoros 1940 REFERRING PHYSICIAN: Robel Onofre DO CHIEF COMPLAINT: Consult (bilateral inguinal hernia) HPI: The patient is a 81 year old male with a complaint of right groin pain. Patient noticed this after he was trying to work on a stump and then working his barn on his tractor. He is never noticed any bulges coming out he is never had any change in his bowel or bladder habits. He had a CAT scan of his abdomen and pelvis which did show bilateral inguinal hernias on the CAT scan. Since the incidence he has had no further pain or discomfort in his groin area.. The patient is being seen by me today at the request of Dr. Robel Onofre DO for my opinion and advice regarding Bilateral inguinal hernia without obstruction or gangrene, recurrence not specified. PAST MEDICAL HISTORY Diagnosis Date Acute bronchitis Aneurysm of abdominal aorta ([facility]) 04/20/2011. Lower abdomen. BPH (benign prostatic hyperplasia) CAD (coronary artery disease) Diverticulosis of colon (without mention of hemorrhage) GERD (gastroesophageal reflux disease) Hyperlipidemia Hypertension Internal hemorrhoids without mention of complication Macular degeneration NSTEMI (non-ST elevated myocardial infarction) ([facility]) 10/28/2019 Osteoarthritis of left hip Paresthesia PMH - PAST MEDICAL HISTORY OF sood PMH - PAST MEDICAL HISTORY OF heart problems PMH - PAST MEDICAL HISTORY OF problems with disc PMH - PAST MEDICAL HISTORY OF age 7 rheumatic fever PMH - PAST MEDICAL HISTORY OF syncope Spinal stenosis, unspecified region other than cervical lumbar Urinary incontinence PAST SURGICAL HISTORY Procedure Laterality Date ARTHRP ACETBLR/PROX FEM PROSTC AGRFT/ALGRFT Left 11/26/2017 Dr. Sukhjinder Lewis AVASTIN (BEVACIZUMAB) 1.25MG INTRAVITREAL INJECTION OD (RIGHT EYE) Right multiple COLONOSCOPY FLX DX W/COLLJ SPEC WHEN PFRMD 07/28/07 DIR RPR ANEURYSM ABDOMINAL AORTA 04/20/2011 [place] EYLEA (AFLIBERCEPT) 2MG INTRAVITREAL INJECTION OD (RIGHT EYE) Right 2017 x 3 OTHER 10/28/2019 PTCA/BRYSON X2 in the saphenous vein graft to OM1. PAST SURGICAL HISTORY OF 09/1996 CABG PAST SURGICAL HISTORY OF 2004, 2016 Back PAST SURGICAL HISTORY OF cardiac cath PAST SURGICAL HISTORY OF 2004 right hip replacement PAST SURGICAL HISTORY OF 06/2007 surveillance cardiac cath PAST SURGICAL HISTORY OF 12/2009 Heart Cath PAST SURGICAL HISTORY OF Left 11/2017 Left Hip Surgery PERIPH ANEUR ARM KHADIJAH MAP INPT 2010 PRICARDIECTOMY STOT/COMPL W/CARDPULM BYPASS 1996 TONSILLECTOMY PRIMARY/SECONDARY <AGE 11 age 8 Tonsillectomy XCAPSL CTRC RMVL INSJ IO LENS PROSTH W/O ECP Bilateral Cataract Extraction with PC IOL Current Outpatient Medications Medication Sig simvastatin (ZOCOR) 20 mg tablet Take 1 tablet by mouth daily at bedtime. lisinopril (ZESTRIL, PRINIVIL) 5 mg tablet Take 1 tablet by mouth once daily. finasteride (PROSCAR) 5 mg tablet Take 1 tablet by mouth once daily. atenolol (TENORMIN) 50 mg tablet Take 1 tablet by mouth once daily. tamsulosin (FLOMAX) 0.4 mg Take 2 capsules by mouth once daily. clopidogrel (PLAVIX) 75 mg tablet Take 1 tablet by mouth once daily. amLODIPine (NORVASC) 5 mg tablet Take 1 tablet by mouth once daily. hydroCHLOROthiazide 12.5 mg capsule Take 1 capsule by mouth once daily. triamcinolone acetonide (KENALOG) 0.1 % cream Apply 1 application to affected area twice daily. Foreczema, Apply sparingly to area for rash/itching. sertraline (ZOLOFT) 25 mg tablet Take 1 tablet by mouth daily at bedtime. isosorbide mononitrate ER (IMDUR) 30 mg 24 hr tablet Take 1 tablet by mouth once daily. vit C/E/Zn/coppr/lutein/zeaxan (PRESERVISION AREDS 2 ORAL) Take 2 tablets by mouth twice daily. omeprazole 20 mg capsule Take 20 mg by mouth once daily. Take one(1) tablet daily. clobetasol 0.05 % ointment Apply selectively to dermatitis and/or psoriasis red scaling patch//plaque selectively on lower leg calf once to twice per day (qday to bid) until clear (up to a maximum of4 to 6 wks if needed) and then stop or taper off as able. Can then substitute a bland moisturizer cream such as CeraVe cream twice per day as able. ceramides 1,3,6-11(CERAVE TOPICAL CREAM) Apply to dry skin areas and psoriasis/eczema areas of hands bid to qid and prn as directed and tolerated. Aspirin 81 mg ORAL Tab Take one(1) tablet daily. albuterol HFA (VENTOLIN HFA) 90 mcg/actuation inhaler Inhale 2 Puffs as instructed every 4 hours asneeded for wheezing/shortness of breath. (Patient not taking: Reported on 01/11/2022 ) No current facility-administered medications for this visit. ALLERGIES: Patient has no known allergies. PERSONAL HISTORY: Social History Tobacco Use Smoking status: Former Smoker Quit date: 05/27/1982 Years since quittin.6 Smokeless tobacco: Never Used Vaping Use Vaping Use: Never used Substance Use Topics Alcohol use: No Drug use: No FAMILY HISTORY: FAMILY HISTORY Problem Relation Age of Onset Heart Mother age 60 [place], smoker None Father age 77 MVA Cataract Father No Known Problems Sister No Known Problems Brother No Known Problems Sister No Known Problems Sister No Known Problems Sister Coronary Artery Disease Brother Coronary Artery Disease Brother REVIEW OF SYMPTOMS: The review of systems data was entered by the nurse and reviewed by nh Nursing Notes: Bhavna Anne RN 01/11/2022 8:09 AM Signed REVIEW OF SYSTEMS: General: The patient NOTES fatigue, denies weight loss, denies weight gain, denies feeling hot, anddenies feelings of cold. Eyes: The patient denies glaucoma, denies eye injury/surgery, wears glasses or contacts. Ear/Nose/Throat: The patient denies allergies, denies hayfever, denies ear infections, and denies bloody noses. Cardiovascular: The patient denies chest pain, NOTES heart disease, NOTES high blood pressure,denies cardiac stent, NOTES prior heart attack, denies irregular heart beat, denies high cholesterol, denies poor circulation, denies heart failure, other cardiac issues, denies claudication, denies cold feet, denies peripheral arterial stent. Respiratory: The patient denies tuberculosis, denies pneumonia, denies frequent cough, denies pulmonary embolism, denies shortness of breath, and denies coughing up blood. Gastrointestinal: The patient denies difficulty swallowing, NOTES acid reflux, denies ulcers, denies vomiting, denies jaundice/hepatitis, denies gallbladder problems, denies black or tarry stools, denies hemorrhoids, denies bleeding from rectum, denies diverticulitis, denies constipation, denies diarrhea, denies loss of stool control, and NOTES hernias. Kidney/Bladder: The patient denies kidney stones, denies urine infections, and denies bloody urine. Skin: The patient denies a history of skin cancer, denies bleeding/changing moles, and denies a history of skin rash. Neurologic: The patient denies a history of epilepsy/convulsions, denies headaches, denies head/spinal injuries, and denies stroke/TIA. Psychiatric: The patient denies psychiatric medications, NOTES depression, and denies voices, denies substance abuse. Endocrine: The patient denies thyroid disorders, denies diabetes, and denies hormonal problems. Hematologic: The patient denies a history of bruising, denies bleeding, and denies anemia, denies blood clots. Infections: The patient denies a history of measles and mumps, denies rheumatic fever, and denies sexually transmitted diseases. Musculoskeletal: The patient denies back pain/injury, NOTES back problems, denies sciatica, denies knee/foot trouble, denies arthritis, or denies gout. s When was patient's last Mammogram screening? N/A Last Colonoscopy: 07/28/2007 Bhavna Anne RN PHYSICAL EXAMINATION: General: The patient is 81 year old male, well nourished, well hydrated in no acute distress. The patient is oriented to time, place, and person. VITALS: Blood pressure 118/58, pulse 85, temperature 36.7 C (98.1 F), height 170.2 cm (5' 7), weight 83.3 kg (183 lb 9.6 oz), SpO2 99 %. Abdominal exam: Soft, nontender, with no palpable masses. No hepatosplenomegaly. No palpable hernias. Rectal exam: exam deferred Extremities: no clubbing, cyanosis or edema. No adenopathy. Other: LABORATORY VALUES: As Noted RADIOLOGIC STUDIES: As Noted Assessment IMPRESSION: Bilateral inguinal hernia without obstruction or gangrene, recurrence not specified PLAN: Given the fact that the patient is completely asymptomatic at this time and I cannot elicit any hernias coming down on my physical exam I do not think there is any surgical interventions that we should entertain here. I think the patient should probably be working smarter so that he does not injure his groin areas any further. I have also instructed them if he were to notice a bulge I should probably send reexamine him and if he ever develops a bulge that does not spontaneously go back heshould emergently go to the emergency department. Diagnoses: (K40.20) Bilateral inguinal hernia without obstruction or gangrene, recurrence not specified My findings have been communicated to Dr. Robel Onofre DO via shared medical record. This note will be forwarded to Dr. Robel Onofre DO. Return to Clinic: The patient is instructed to follow-up with me as needed. Florencio Tesfaye III, MD documented in this encounterDunlap Memorial Hospital05-20-2022 Nurse Note* Bhavna Anne RN - 01/11/2022 8:07 AM EDT REVIEW OF SYSTEMS: General: The patient NOTES fatigue, denies weight loss, denies weight gain, denies feeling hot, anddenies feelings of cold. Eyes: The patient denies glaucoma, denies eye injury/surgery, wears glasses or contacts. Ear/Nose/Throat: The patient denies allergies, denies hayfever, denies ear infections, and denies bloody noses. Cardiovascular: The patient denies chest pain, NOTES heart disease, NOTES high blood pressure,denies cardiac stent, NOTES prior heart attack, denies irregular heart beat, denies high cholesterol, denies poor circulation, denies heart failure, other cardiac issues, denies claudication, denies cold feet, denies peripheral arterial stent. Respiratory: The patient denies tuberculosis, denies pneumonia, denies frequent cough, denies pulmonary embolism, denies shortness of breath, and denies coughing up blood. Gastrointestinal: The patient denies difficulty swallowing, NOTES acid reflux, denies ulcers, denies vomiting, denies jaundice/hepatitis, denies gallbladder problems, denies black or tarry stools, denies hemorrhoids, denies bleeding from rectum, denies diverticulitis, denies constipation, denies diarrhea, denies loss of stool control, and NOTES hernias. Kidney/Bladder: The patient denies kidney stones, denies urine infections, and denies bloody urine. Skin: The patient denies a history of skin cancer, denies bleeding/changing moles, and denies a history of skin rash. Neurologic: The patient denies a history of epilepsy/convulsions, denies headaches, denies head/spinal injuries, and denies stroke/TIA. Psychiatric: The patient denies psychiatric medications, NOTES depression, and denies voices, denies substance abuse. Endocrine: The patient denies thyroid disorders, denies diabetes, and denies hormonal problems. Hematologic: The patient denies a history of bruising, denies bleeding, and denies anemia, denies blood clots. Infections: The patient denies a history of measles and mumps, denies rheumatic fever, and denies sexually transmitted diseases. Musculoskeletal: The patient denies back pain/injury, NOTES back problems, denies sciatica, denies knee/foot trouble, denies arthritis, or denies gout. s When was patient's last Mammogram screening? N/A Last Colonoscopy: 07/28/2007 Bhavna Anne RN documented in this encounterDunlap Memorial Hospital05-12-2022 Miscellaneous Notes* Telephone Encounter - Bessie Ambrocio APRN.LEO - 01/03/2022 8:29 AM EDT Noted, thank you. Bessie Ambrocio APRN.LEO * Telephone Encounter - Brooklynn Muller RN - 01/03/2022 8:20 AM EDT Pts daughter called and is notified of providers results and instructions. She voices understanding. Put daughter through to scheduling to make appointment with general surgery. Brooklynn Muller RN * Telephone Encounter - Robel Onofre DO - 01/02/2022 10:06 PM EDT Please inform patient that his CT of abdomen/pelvis shows that he has bilateral inguinal hernias - the right is more prominent than the left side and contains loops of bowel wall. There is also a small umbilical hernia, this is fat containing. I would like him to see the general surgeon for evaluation to determine if surgery is indicated. Thanks Robel Onofre DO documented in this encounterDunlap Memorial Hospital05-05-2022 Miscellaneous Notes* Telephone Encounter - Jessica Moon Ma - 12/27/2021 2:48 PM EDT Faxed to [facility]. * Telephone Encounter - Bessie Ambrocio APRN.CNP - 12/27/2021 2:44 PM EDT New order placed per below request. Bessie Ambrocio APRN.CNP * Telephone Encounter - Torie King LPN - 12/27/2021 1:38 PM EDT [facility] coroner technician Ju is calling to report if you are ruling out inguinal hernia the do not do this with an ultrasound at [facility]. It would be CT abd/pelvis with contrast. You can fax them a new order for CT. documented in this encounterDunlap Memorial Hospital05-05-2022 Miscellaneous Notes* Telephone Encounter - Nury Levy RN - 12/27/2021 8:13 AM EDT Patient's daughter calls and is requesting that ultrasound orders be faxed to [facility]. Orders faxed as requested. Nury Levy RN documented in this encounterDunlap Memorial Hospital05-04-2022 History of Present illness Narrative* Bessie Ambrocio APRN.CNP - 12/26/2021 3:06 PM EDT Chief Complaint Patient presents with: Mass: right groin area HPI Todd Matamoros is a 81 year old male who presents here today for Acute onset of right groin pain. Today: Has had 3 different episodes where his groin hurts for about an hour at a time. 3 weeks ago picked up a log, then started hurting a few hours later. Is a dull pain, similar to pulling something. Rates 5-6/10. Nothing that makes it better or worse. Has tried to feel for a hernia, but unable to feel anything. Most recent episode was this past Friday afternoon. No pain or discomfort in scrotum or penis. Past medical history, appointments, medications, allergies reviewed. Previous Medical History PAST MEDICAL HISTORY Diagnosis Date Acute bronchitis Aneurysm of abdominal aorta ([facility]) 04/20/2011. Lower abdomen. BPH (benign prostatic hyperplasia) CAD (coronary artery disease) Diverticulosis of colon (without mention of hemorrhage) GERD (gastroesophageal reflux disease) Hyperlipidemia Hypertension Internal hemorrhoids without mention of complication Macular degeneration NSTEMI (non-ST elevated myocardial infarction) ([facility]) 10/28/2019 Osteoarthritis of left hip Paresthesia PMH - PAST MEDICAL HISTORY OF sodo PMH - PAST MEDICAL HISTORY OF heart problems PMH - PAST MEDICAL HISTORY OF problems with disc PMH - PAST MEDICAL HISTORY OF age 7 rheumatic fever PMH - PAST MEDICAL HISTORY OF syncope Spinal stenosis, unspecified region other than cervical lumbar Urinary incontinence Previous Surgical History PAST SURGICAL HISTORY Procedure Laterality Date ARTHRP ACETBLR/PROX FEM PROSTC AGRFT/ALGRFT Left 11/26/2017 Dr. Sukhjinder Lewis AVASTIN (BEVACIZUMAB) 1.25MG INTRAVITREAL INJECTION OD (RIGHT EYE) Right multiple COLONOSCOPY FLX DX W/COLLJ SPEC WHEN PFRMD 07/28/07 DIR RPR ANEURYSM ABDOMINAL AORTA 04/20/2011 [facility] EYLEA (AFLIBERCEPT) 2MG INTRAVITREAL INJECTION OD (RIGHT EYE) Right 2017 x 3 OTHER 10/28/2019 PTCA/BRYSON X2 in the saphenous vein graft to OM1. PAST SURGICAL HISTORY OF 09/1996 CABG PAST SURGICAL HISTORY OF 2004, 2016 Back PAST SURGICAL HISTORY OF cardiac cath PAST SURGICAL HISTORY OF 2004 right hip replacement PAST SURGICAL HISTORY OF 06/2007 surveillance cardiac cath PAST SURGICAL HISTORY OF 12/2009 Heart Cath PAST SURGICAL HISTORY OF Left 11/2017 Left Hip Surgery PERIPH ANEUR ARM KHADIJAH MAP INPT 2010 PRICARDIECTOMY STOT/COMPL W/CARDPULM BYPASS 1996 TONSILLECTOMY PRIMARY/SECONDARY <AGE 11 age 8 Tonsillectomy XCAPSL CTRC RMVL INSJ IO LENS PROSTH W/O ECP Bilateral Cataract Extraction with PC IOL Family History FAMILY HISTORY Problem Relation Age of Onset Heart Mother age 60 [place], smoker None Father age 77 MVA Cataract Father No Known Problems Sister No Known Problems Brother No Known Problems Sister No Known Problems Sister No Known Problems Sister Coronary Artery Disease Brother Coronary Artery Disease Brother Patient Allergies ALLERGIES No Known Allergies Current Medications Current Outpatient Medications on File Prior to Visit Medication Sig simvastatin (ZOCOR) 20 mg tablet Take 1 tablet by mouth daily at bedtime. lisinopril (ZESTRIL, PRINIVIL) 5 mg tablet Take 1 tablet by mouth once daily. finasteride (PROSCAR) 5 mg tablet Take 1 tablet by mouth once daily. atenolol (TENORMIN) 50 mg tablet Take 1 tablet by mouth once daily. tamsulosin (FLOMAX) 0.4 mg Take 2 capsules by mouth once daily. clopidogrel (PLAVIX) 75 mg tablet Take 1 tablet by mouth once daily. albuterol HFA (VENTOLIN HFA) 90 mcg/actuation inhaler Inhale 2 Puffs as instructed every 4 hours asneeded for wheezing/shortness of breath. amLODIPine (NORVASC) 5 mg tablet Take 1 tablet by mouth once daily. hydroCHLOROthiazide 12.5 mg capsule Take 1 capsule by mouth once daily. triamcinolone acetonide (KENALOG) 0.1 % cream Apply 1 application to affected area twice daily. Foreczema, Apply sparingly to area for rash/itching. sertraline (ZOLOFT) 25 mg tablet Take 1 tablet by mouth daily at bedtime. isosorbide mononitrate ER (IMDUR) 30 mg 24 hr tablet Take 1 tablet by mouth once daily. vit C/E/Zn/coppr/lutein/zeaxan (PRESERVISION AREDS 2 ORAL) Take 2 tablets by mouth twice daily. omeprazole 20 mg capsule Take 20 mg by mouth once daily. Take one(1) tablet daily. clobetasol 0.05 % ointment Apply selectively to dermatitis and/or psoriasis red scaling patch//plaque selectively on lower leg calf once to twice per day (qday to bid) until clear (up to a maximum of4 to 6 wks if needed) and then stop or taper off as able. Can then substitute a bland moisturizer cream such as CeraVe cream twice per day as able. ceramides 1,3,6-11(CERAVE TOPICAL CREAM) Apply to dry skin areas and psoriasis/eczema areas of hands bid to qid and prn as directed and tolerated. Aspirin 81 mg ORAL Tab Take one(1) tablet daily. No current facility-administered medications on file prior to visit. Social History Social History Tobacco Use Smoking status: Former Smoker Quit date: 05/27/1982 Years since quittin.6 Smokeless tobacco: Never Used Substance Use Topics Alcohol use: No Drug use: No Review of Symptoms REVIEW OF SYSTEMS See HPI, otherwise negative EXAM: BP 120/76 (BP Site: Left Arm, BP Position: Sitting, BP Cuff Size: Regular Adult) Pulse (!) 56 Wt 85.7 kg (189 lb) SpO2 97% BMI 28.74 kg/m General Appearance: Well appearing, alert, in no acute distress, well-hydrated, well nourished. Genitalia: Penis normal. No urethral discharge. Scrotum normal to palpation. No hernia., Normal except for slight bulge palpable to right groin-nonpainful, nontender. Health Maintenance List DTAP,TDAP,TD(1 - Tdap) Never done SHINGRIX VACCINE(1 of 2) Never done ADVANCE DIRECTIVE DISCUSSION Never done LDL CHOLESTEROL due on 05/29/2022 DIABETES SCREEN due on 05/29/2024 INFLUENZA Completed PNEUMOVAX AGE 65 AND OVER WITH 5YR LOOKBACK Completed COVID-19 VACCINE Completed MENINGOCOCCAL CONJUGATE Aged Out Data reviewed Previous records, office notes. ASSESSMENT/PLAN: 1. Right inguinal pain - ICD9: 789.03, ICD10: R10.31 (primary diagnosis) Suspect inguinal hernia. Groin assessment and palpation performed in exam room with patient's son present as well. - US PELVIS LTD 2. Inguinal bulge - ICD9: 789.30, ICD10: R19.09 Suspect inguinal hernia. Groin assessment and palpation performed in exam room with patient's son present as well. - [employer] Bessie Ambrocio APRN.CNP [facility] Miscellaneous Notes* Telephone Encounter - Bessie Ambrocio APRN.CNP - 12/26/2021 9:16 AM EDT Noted, thank you. Bessie Ambrocio APRN.CNP * Telephone Encounter - Gildardo Franklin RN - 12/26/2021 8:59 AM EDT Daughter, Jadyn, reports, 3 weeks ago, patient overdid it lifting logs, and had pain in right groin / pelvic area, that came and went. 1 week later pain returned. Patient did not report this to family, until it happened again this past Friday. This time, pain was intense. Family assessed area, didnot find a lump (looking for hernia). No pain since Sat. Hx of AAA and daughter wonders if the painis related to this. Scheduled same day appt with Architectural Associate for evaluation. documented in this [facility] History of Present illness Narrative* Robel Onofre, DO - 12/12/2021 12:30 PM EDT CC: Todd Matamoros is a 81 year old male who presents to the office for follow up HPI: Macular degeneration, continues to progress, no new recent interventions received. BPH, long standing, use of Flomax and Proscar with improvement/relief, symptoms much improved HTN, CAD, aortic aneurysm, well controlled pulse and BP, taking medications as prescribed. No recent chest pain/pressure or dyspnea or dizziness/LH or edema. Hx of CAD PAST MEDICAL HISTORY Diagnosis Date Acute bronchitis Aneurysm of abdominal aorta (HCC) 04/20/2011. Lower abdomen. BPH (benign prostatic hyperplasia) CAD (coronary artery disease) Diverticulosis of colon (without mention of hemorrhage) GERD (gastroesophageal reflux disease) Hyperlipidemia Hypertension Internal hemorrhoids without mention of complication Macular degeneration NSTEMI (non-ST elevated myocardial infarction) ([facility]) 10/28/2019 Osteoarthritis of left hip Paresthesia PMH - PAST MEDICAL HISTORY OF sood PMH - PAST MEDICAL HISTORY OF heart problems PMH - PAST MEDICAL HISTORY OF problems with disc PMH - PAST MEDICAL HISTORY OF age 7 rheumatic fever PMH - PAST MEDICAL HISTORY OF syncope Spinal stenosis, unspecified region other than cervical lumbar Urinary incontinence PAST SURGICAL HISTORY Procedure Laterality Date ARTHRP ACETBLR/PROX FEM PROSTC AGRFT/ALGRFT Left 11/26/2017 Dr. Sukhjinder Lewis AVASTIN (BEVACIZUMAB) 1.25MG INTRAVITREAL INJECTION OD (RIGHT EYE) Right multiple COLONOSCOPY FLX DX W/COLLJ SPEC WHEN PFRMD 07/28/07 DIR RPR ANEURYSM ABDOMINAL AORTA 04/20/2011 [facility] EYLEA (AFLIBERCEPT) 2MG INTRAVITREAL INJECTION OD (RIGHT EYE) Right 2017 x 3 OTHER 10/28/2019 PTCA/BRYSON X2 in the saphenous vein graft to OM1. PAST SURGICAL HISTORY OF 09/1996 CABG PAST SURGICAL HISTORY OF 2004, 2016 Back PAST SURGICAL HISTORY OF cardiac cath PAST SURGICAL HISTORY OF 2004 right hip replacement PAST SURGICAL HISTORY OF 06/2007 surveillance cardiac cath PAST SURGICAL HISTORY OF 12/2009 Heart Cath PAST SURGICAL HISTORY OF Left 11/2017 Left Hip Surgery PERIPH ANEUR ARM KHADIJAH MAP INPT 2010 PRICARDIECTOMY STOT/COMPL W/CARDPULM BYPASS 1996 TONSILLECTOMY PRIMARY/SECONDARY <AGE 11 age 8 Tonsillectomy XCAPSL CTRC RMVL INSJ IO LENS PROSTH W/O ECP Bilateral Cataract Extraction with PC IOL Current Outpatient Medications Medication Sig simvastatin (ZOCOR) 20 mg tablet Take 1 tablet by mouth daily at bedtime. lisinopril (ZESTRIL, PRINIVIL) 5 mg tablet Take 1 tablet by mouth once daily. finasteride (PROSCAR) 5 mg tablet Take 1 tablet by mouth once daily. atenolol (TENORMIN) 50 mg tablet Take 1 tablet by mouth once daily. tamsulosin (FLOMAX) 0.4 mg Take 2 capsules by mouth once daily. clopidogrel (PLAVIX) 75 mg tablet Take 1 tablet by mouth once daily. amLODIPine (NORVASC) 5 mg tablet Take 1 tablet by mouth once daily. hydroCHLOROthiazide 12.5 mg capsule Take 1 capsule by mouth once daily. sertraline (ZOLOFT) 25 mg tablet Take 1 tablet by mouth daily at bedtime. isosorbide mononitrate ER (IMDUR) 30 mg 24 hr tablet Take 1 tablet by mouth once daily. vit C/E/Zn/coppr/lutein/zeaxan (PRESERVISION AREDS 2 ORAL) Take 2 tablets by mouth twice daily. omeprazole 20 mg capsule Take 20 mg by mouth once daily. Take one(1) tablet daily. ceramides 1,3,6-11(CERAVE TOPICAL CREAM) Apply to dry skin areas and psoriasis/eczema areas of hands bid to qid and prn as directed and tolerated. Aspirin 81 mg ORAL Tab Take one(1) tablet daily. albuterol HFA (VENTOLIN HFA) 90 mcg/actuation inhaler Inhale 2 Puffs as instructed every 4 hours asneeded for wheezing/shortness of breath. triamcinolone acetonide (KENALOG) 0.1 % cream Apply 1 application to affected area twice daily. Foreczema, Apply sparingly to area for rash/itching. clobetasol 0.05 % ointment Apply selectively to dermatitis and/or psoriasis red scaling patch//plaque selectively on lower leg calf once to twice per day (qday to bid) until clear (up to a maximum of4 to 6 wks if needed) and then stop or taper off as able. Can then substitute a bland moisturizer cream such as CeraVe cream twice per day as able. No current facility-administered medications for this visit. ALLERGIES No Known Allergies Social History Tobacco Use Smoking status: Former Smoker Quit date: 05/27/1982 Years since quittin.5 Smokeless tobacco: Never Used Substance Use Topics Alcohol use: No Drug use: No ROS: See HPI PE: BP 100/70 Pulse 56 Temp (Src) 96.8 (Left Tympanic) Resp 16 Wt 185 lb (83.9kg) Gen: A&O, NAD, non-toxic appearing, Pleasant, cooperative HEENT: NT/AC, PERRLA, EOMs intact b/l, visually impaired, nares clear and patent b/l, pharynx without erythema, exudate or lesions. Uvula midline. MMM, EACs without erythema or debris. TMs pearly mcarthur with intact landmarks b/l. Wearing hearing aides Neck: supple, No cervical LAD, no thyromegaly, no carotid bruits CV: RRR, normal S1 and S2, no murmurs, no gallops, no rubs, Pulses 2+ and symmetric in UE and LE b/l Lungs: normal respiratory effort, CTA b/l, no wheezing or rhonchi or rales Abd: soft, NT, ND, +BS, no hepatosplenomegaly MS: FROM all 4 extremities, gait steady but slowed Neuro: CN II-XII intact b/l, sensation intact. Actinic keratosis right side of distal nose, actinic keratosis left distal eyebrow area ASSESSMENT/PLAN: 1. Vitamin D deficiency - ICD9: 268.9, ICD10: E55.9 (primary diagnosis) - continue supplement 2. BPH associated with nocturia - ICD9: 600.01, 788.43, ICD10: N40.1, R35.1 - stable, continue supplement 3. Fatigue, unspecified type - ICD9: 780.79, ICD10: R53.83 - continue same medications and supplements. 4. Familial hypercholesterolemia - ICD9: 272.0, ICD10: E78.01 - stable, hx of, recheck labs in 6 months. 5. Coronary artery disease due to lipid rich plaque - ICD9: 414.00, 414.3, ICD10: I25.10, I25.83 - f/u with [facility] [employer] as scheduled. stable 6. Hypertension, essential - ICD9: 401.9, ICD10: I10 - good control - Continue current medication(s) - Encouraged dietary sodium restriction/DASH diet - Recommended regular aerobic exercise. - Recommend home blood pressure monitoring, to bring results in on next visit - Goal of BP <130/80 7. Actinic keratosis - ICD9: 702.0, ICD10: L57.0 - treated x 2 with cryotherapy, tolerated well, aware of wound care Robel Onofre DO Return if no improvement. Follow up with Robel Onofre DO. To ER if develops chest pain, shortness of breath Discussed risks, benefits, alternatives, and potential side effects of medications. Patient/Guardian expressed understanding and agreed with the plan. See patient instructions. 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, 1996 chronic Stented coronary artery October 28, 2019 [facility] Work Phone: Evaluation note* Diagnosis Presence of other vascular implants and grafts Abdominal aortic aneurysm, without rupture (HCC) Encounter for surgical aftercare following surgery on the circulatory system Hx of endovascular stent graft for abdominal aortic aneurysm Blood vessel replaced by other means AAA (abdominal aortic aneurysm) without rupture (HCC) Abdominal aneurysm without mention of rupture Aftercare following surgery of the circulatory system Aftercare following surgery of the circulatory system, NEC documented in this encounter [facility] Work Phone: Evaluation note* Diagnosis Vitamin D deficiency- Primary Unspecified vitamin D deficiency 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 and other lower urinary tract symptoms (LUTS) Fatigue, unspecified type Familial hypercholesterolemia Pure hypercholesterolemia Coronary artery disease due to lipid rich plaque Hypertension, essential Unspecified essential hypertension Actinic keratosis [facility]* Diagnosis Right inguinal pain- Primary Abdominal pain, right lower quadrant Inguinal bulge Abdominal or pelvic swelling, mass or lump, unspecified site [facility]* Diagnosis Right groin pain- Primary Abdominal pain, right lower quadrant Localized enlarged lymph nodes Enlargement of lymph nodes [facility]* Diagnosis Bilateral inguinal hernia without obstruction or gangrene, recurrence not specified- Primary [facility]* Diagnosis Bilateral inguinal hernia without obstruction or gangrene, recurrence not specified [facility]* Diagnosis Vitamin D deficiency- Primary Unspecified vitamin D deficiency Vitamin B12 deficiency Other B-complex deficiencies Elevated serum creatinine Other nonspecific findings on examination of blood documented in this encounter [facility] note* Diagnosis Right inguinal hernia- Primary Inguinal hernia without mention of obstruction or gangrene, unilateral or unspecified, (not specified as recurrent) Right inguinal hernia Inguinal hernia without mention of obstruction or gangrene, unilateral or unspecified, (not specified as recurrent) documented in this encounter [facility] note* Diagnosis Pre-operative examination- Primary Preoperative examination, unspecified Coronary artery disease due to lipid rich plaque Hypertension, essential Unspecified essential hypertension Abdominal aortic aneurysm (AAA), unspecified part, unspecified whether ruptured Thrombocytopenia (HCC) Thrombocytopenia, unspecified Familial hypercholesterolemia Pure hypercholesterolemia Acute renal insufficiency Unspecified disorder of kidney and ureter 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 and other lower urinary tract symptoms (LUTS) Gastroesophageal ref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 hemorrhage Right inguinal hernia Inguinal hernia without mention of obstruction or gangrene, unilateral or unspecified, (not specified as recurrent) [facility]* Diagnosis Hypertension, essential- Primary Unspecified essential hypertension Encounter for immunization Need for other specified prophylactic vaccination against single bacterial disease Vitamin D deficiency Unspecified vitamin D deficiency Vitamin B12 deficiency Other B-complex deficiencies Elevated serum creatinine Other nonspecific findings on examination of blood Fatigue, unspecified type Familial hypercholesterolemia Pure hypercholesterolemia 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 and other lower urinary tract symptoms (LUTS) Coronary artery disease due to lipid rich plaque Bilateral exudative age-related macular degeneration, unspecified stage (HCC) Screening for prostate cancer Special screening for malignant neoplasm of prostate Thrombocytopenia (HCC) Thrombocytopenia, unspecified Non-recurrent bilateral inguinal hernia without obstruction or gangrene Right inguinal hernia Inguinal hernia without mention of obstruction or gangrene, unilateral or unspecified, (not specified as recurrent) [facility]* Diagnosis Right inguinal hernia- Primary Inguinal hernia without mention of obstruction or gangrene, unilateral or unspecified, (not specified as recurrent) Right inguinal hernia Inguinal hernia without mention of obstruction or gangrene, unilateral or unspecified, (not specified as recurrent) [facility]* Diagnosis Onset Date Resolution Status Upper GI bleed acute [facility] Work Phone: Evaluation note* Diagnosis Onset Date Resolution Status Acute blood loss anemia acut e PEPE (acute kidney injury) ac lobiot Erosive esophagitis acute Leukocytosis acute Status post bilateral inguinal hernia repair acute Upper GI bleed acute Urinary retention acute [facility] Work Phone: Evaluation note* Diagnosis Hypotension, unspecified hypotension type- Primary [facility]* Diagnosis Hypertension, essential- Primary Unspecified essential hypertension 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 [facility] Diagnosis Vitamin D deficiency Unspecified vitamin D deficiency Vitamin B12 deficiency Other B-complex deficiencies documented in this encounter [facility] note* Diagnosis Vitamin D deficiency- Primary Unspecified vitamin D deficiency Vitamin B12 deficiency Other B-complex deficiencies Hypertension, essential Unspecified essential hypertension Familial hypercholesterolemia Pure hypercholesterolemia 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 and other lower urinary tract symptoms (LUTS) Screening for prostate cancer Special screening for malignant neoplasm of prostate Iron deficiency anemia, unspecified iron deficiency anemia type documented in this encounter [facility] note* Diagnosis Macular degeneration of both eyes, unspecified type- Primary [facility] Diagnosis Vitamin D deficiency Unspecified vitamin D deficiency Vitamin B12 deficiency Other B-complex deficiencies [facility]* Diagnosis Hypertension, essential- Primary Unspecified essential hypertension Need for influenza vaccination Need for prophylactic vaccination and inoculation against influenza Bilateral exudative age-related macular degeneration, unspecified stage (HCC) Abdominal aortic aneurysm (AAA) without rupture, unspecified part (HCC) Thrombocytopenia (HCC) Thrombocytopenia, unspecified Vitamin D deficiency Unspecified vitamin D deficiency Vitamin B12 deficiency Other B-complex deficiencies Familial hypercholesterolemia Pure hypercholesterolemia 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 and other lower urinary tract symptoms (LUTS) Iron deficiency anemia, unspecified iron deficiency anemia type Coronary artery disease due to lipid rich plaque Hyperglycemia Other abnormal glucose Screening for prostate cancer Special screening for malignant neoplasm of prostate [facility] Diagnosis Other eczema [facility]* Diagnosis Vitamin D deficiency Unspecified vitamin D deficiency Vitamin B12 deficiency Other B-complex deficiencies [facility] Diagnosis Vitamin D deficiency Unspecified vitamin D deficiency Vitamin B12 deficiency Other B-complex deficiencies [facility] Diagnosis Vitamin D deficiency Unspecified vitamin D deficiency [facility]* Diagnosis Hypertension, essential- Primary Unspecified essential hypertension Vitamin D deficiency Unspecified vitamin D deficiency Vitamin B12 deficiency Other B-complex deficiencies Other eczema Bilateral exudative age-related macular degeneration, unspecified stage (HCC) Familial hypercholesterolemia Pure hypercholesterolemia 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 and other lower urinary tract symptoms (LUTS) Iron deficiency anemia, unspecified iron deficiency anemia type Borderline abnormal thyroid function test Nonspecific abnormal results of thyroid function study Abdominal aortic aneurysm (AAA) without rupture, unspecified part (HCC) Thrombocytopenia (HCC) Thrombocytopenia, unspecified Actinic keratosis [facility] Diagnosis Elevated alkaline phosphatase level- Primary Other nonspecific abnormal serum enzyme levels Elevated serum creatinine Other nonspecific findings on examination of blood Thrombocytopenia (HCC) Thrombocytopenia, unspecified documented [facility]* Diagnosis Feelings of worthlessness- Primary Stress Other psychological or physical stress, not elsewhere classified Lack of motivation Other depression Macular degeneration of both eyes, unspecified type Bilateral hearing loss, unspecified hearing loss type [facility]* Diagnosis Feelings of worthlessness- Primary Stress Other psychological or physical stress, not elsewhere classified Lack of motivation Other depression [facility]* Diagnosis Pre-operative examination- Primary Preoperative examination, unspecified Coronary artery disease due to lipid rich plaque Hypertension, essential Unspecified essential hypertension Abdominal aortic aneurysm (AAA), unspecified part, unspecified whether ruptured (HCC) Thrombocytopenia (HCC) Thrombocytopenia, unspecified Familial hypercholesterolemia Pure hypercholesterolemia Acute renal insufficiency Unspecified disorder of kidney and ureter 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 and other lower urinary tract symptoms (LUTS) Gastroesophageal ref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 hemorrhage Feelings of worthlessness Stress Other psychological or physical stress, not elsewhere classified Lack of motivation Other depression [facility]* Diagnosis Pre-operative examination- Primary Preoperative examination, unspecified Coronary artery disease due to lipid rich plaque Hypertension, essential Unspecified essential hypertension Abdominal aortic aneurysm (AAA), unspecified part, unspecified whether ruptured (HCC) Thrombocytopenia (HCC) Thrombocytopenia, unspecified Familial hypercholesterolemia Pure hypercholesterolemia Acute renal insufficiency Unspecified disorder of kidney and ureter 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 and other lower urinary tract symptoms (LUTS) Gastroesophageal ref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 hemorrhage Hypertension, essential- Primary Unspecified essential hypertension Need for influenza vaccination Need for prophylactic vaccination and inoculation against influenza Vitamin D deficiency Unspecified vitamin D deficiency Vitamin B12 deficiency Other B-complex deficiencies Thrombocytopenia (HCC) Thrombocytopenia, unspecified Macular degeneration of both eyes, unspecified type Familial hypercholesterolemia Pure hypercholesterolemia 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 and other lower urinary tract symptoms (LUTS) Borderline abnormal thyroid function test Nonspecific abnormal results of thyroid function study Hyperglycemia Other abnormal glucose Other depression documented in this encounter [facility] note* Diagnosis Pre-operative examination- Primary Preoperative examination, unspecified Coronary artery disease due to lipid rich plaque Hypertension, essential Unspecified essential hypertension Abdominal aortic aneurysm (AAA), unspecified part, unspecified whether ruptured (HCC) Thrombocytopenia (HCC) Thrombocytopenia, unspecified Familial hypercholesterolemia Pure hypercholesterolemia Acute renal insufficiency Unspecified disorder of kidney and ureter 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 and other lower urinary tract symptoms (LUTS) Gastroesophageal ref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 hemorrhage Vitamin B12 deficiency Other B-complex deficiencies documented in this encounter [facility] note* Diagnosis Pre-operative examination- Primary Preoperative examination, unspecified Coronary artery disease due to lipid rich plaque Hypertension, essential Unspecified essential hypertension Abdominal aortic aneurysm (AAA), unspecified part, unspecified whether ruptured (HCC) Thrombocytopenia (HCC) Thrombocytopenia, unspecified Familial hypercholesterolemia Pure hypercholesterolemia Acute renal insufficiency Unspecified disorder of kidney and ureter 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 and other lower urinary tract symptoms (LUTS) Gastroesophageal ref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 hemorrhage Feelings of worthlessness Stress Other psychological or physical stress, not elsewhere classified Lack of motivation Other depression documented in this encounter [facility] note* Diagnosis Pre-operative examination- Primary Preoperative examination, unspecified Coronary artery disease due to lipid rich plaque Hypertension, essential Unspecified essential hypertension Abdominal aortic aneurysm (AAA), unspecified part, unspecified whether ruptured Thrombocytopenia Thrombocytopenia, unspecified Familial hypercholesterolemia Pure hypercholesterolemia Acute renal insufficiency Unspecified disorder of kidney and ureter 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 and other lower urinary tract symptoms (LUTS) Gastroesophageal ref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 hemorrhage Vitamin D deficiency Unspecified vitamin D deficiency documented in this encounter [facility] noteNo assessment information availableWAd[facility] Work Phone: Evaluation note* Diagnosis Pre-operative examination- Primary Preoperative examination, unspecified Coronary artery disease due to lipid rich plaque Hypertension, essential Unspecified essential hypertension Abdominal aortic aneurysm (AAA), unspecified part, unspecified whether ruptured Thrombocytopenia Thrombocytopenia, unspecified Familial hypercholesterolemia Pure hypercholesterolemia Acute renal insufficiency Unspecified disorder of kidney and ureter 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 and other lower urinary tract symptoms (LUTS) Gastroesophageal ref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 hemorrhage Vertigo- Primary Dizziness and giddiness Nausea and vomiting, unspecified vomiting type Gait disturbance Abnormality of gait documented in this encounter [facility] note* Diagnosis Pre-operative examination- Primary Preoperative examination, unspecified Coronary artery disease due to lipid rich plaque Hypertension, essential Unspecified essential hypertension Abdominal aortic aneurysm (AAA), unspecified part, unspecified whether ruptured Thrombocytopenia Thrombocytopenia, unspecified Familial hypercholesterolemia Pure hypercholesterolemia Acute renal insufficiency Unspecified disorder of kidney and ureter 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 and other lower urinary tract symptoms (LUTS) Gastroesophageal ref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 hemorrhage Gastroesophageal ref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 hemorrhage- Primary Vitamin D deficiency Unspecified vitamin D deficiency Other depression Vitamin B12 deficiency Other B-complex deficiencies Thrombocytopenia Thrombocytopenia, unspecified Familial hypercholesterolemia Pure hypercholesterolemia Macular degeneration of both eyes, unspecified type 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 and other lower urinary tract symptoms (LUTS) Actinic keratosis BPPV (benign paroxysmal positional vertigo), unspecified laterality documented in this encounter [facility] Diagnosis Pre-operative examination- Primary Preoperative examination, unspecified Coronary artery disease due to lipid rich plaque Hypertension, essential Unspecified essential hypertension Abdominal aortic aneurysm (AAA), unspecified part, unspecified whether ruptured Thrombocytopenia Thrombocytopenia, unspecified Familial hypercholesterolemia Pure hypercholesterolemia Acute renal insufficiency Unspecified disorder of kidney and ureter 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 No other acute findings. This is not causing her symptoms. EKG labs stable. Use meclizine as needed. Follow-up with her doctor. If Symptoms recur or worsens, return to ED for reevaluation.[facility] Work Phone: Reason for referral (narrative)* Diagnostic Procedure Only (Urgent) - Pending Review Specialty Diagnoses / Procedures Referred By Bala sheridan Referred To Contact US IMAGING Diagnoses Right inguinal pain Inguinal bulge Procedures US PELVIS LTD US PELVIC NONOBSTETRIC IMAGE DCMTN LIMITED/F/U Bessie Ambrocio, GIA.MACHINIST APPRENTICE [address] [place] [address] Us Imaging Referral ID Status Reason Start Date Expiration Date Visits Requested Visits Authorized [id number] Pending Review Auto-Generat ed Referral 12/26/2021 01/25/2023 1 1 [facility])No reason for referral information availableWAdams [facility] Work Phone: Instructions Instruction Description Start Date Patient advised to follow-up with Primary Care Physician for BMI management. Advance Directives No Advanced Directives Records FoundDocuments on File Type Date Recorded Patient Netting Inspector Expl anation ACP-Advance Directive ACP-Power of Vp Clinical Advance Directive Response Recorded Date/ Time Living Will Yes November 04, 2019 8:26am Power of Vp Clinical Yes November 03 8:26am Advance Directive Response Recorded Date/ Time Name of Medical Power of Vp Clinical Thierno Matamoros June 13, 2022 5:30pm Living Will Yes June 13 5:30pm Power of Vp Clinical Yes June 13, 2022 5:30pm Advance Directive Response Recorded Date/ Time Name of Medical Power of Vp Clinical Jadyn Peralta, Thierno Matamoros and Shy Bernstein June 13, 2022 8:21pm Living Will Yes June 13 8:21pm Power of Vp Clinical Yes June 13, 2022 8:21pm Advance Directive Response Recorded Date/ Time Do you have a Healthcare Power of Vp Clinical? No December 14, 2024 12:42pm Advance Directive Response Recorded Date/ Time Living Will Yes June 13 8:21pm Do you have a Healthcare Power of Vp Clinical? Yes June 13, 2022 8:21pm Do you have a Healthcare Power of Vp Clinical? No December 14, 2024 12:42pm Assessments Diagnosis Abdominal aortic aneurysm without rupture (HCC) Abdominal aneurysm without mention of rupture History of endovascular stent graft for abdominal aortic aneurysm (AAA) Review of System There may be information available, but it has not been provided by the sender. Family History No Family History Records Found Relationship Condition Age at Onset Recorded Date/T matti mother Coronary artery disease Unknown brother Coronary artery disease Unknown Reason for Referral Status Reason Specialty Diagnoses / Procedures Referre d By Contact Referred To Contact Open Radiology Diagnoses Abdominal aortic aneurysm without rupture (HCC) History of endovascular stent graft for abdominal aortic aneurysm (AAA) Procedures VL Aorta IVC Bypass Graft John Clark MD [address] [facility] [address] [place] [address] Status Reason Specialty Diagnoses / Procedures Referre d By Contact Referred To Contact Open Radiology Diagnoses Hx of endovascular stent graft for abdominal aortic aneurysm AAA (abdominal aortic aneurysm) without rupture (HCC) Aftercare following surgery of the circulatory system Procedures VL AORTA/IVC/ILIAC/BYPASS GRAFT COMPLETE Shailesh Stone PA [address] [place] [address] Specialty Diagnoses / Procedures Referred By Bala sheridan Referred To Contact CT IMAGING Diagnoses Localized enlarged lymph nodes Right groin pain Procedures CT ABD/PEL W IVCON CT ABD & PELVIS W/CONTRAST Robel Onofre, DO [address] [place] [address] Ct Imaging Referral ID Status Reason Start Date Expiration Date Visits Requested Visits Authorized [id number] Pending Review Auto-Generat ed Referral 12/27/2021 01/26/2023 1 1 Specialty Diagnoses / Procedures Referred By Bala sheridan Referred To Contact General Surgery Diagnoses Bilateral inguinal hernia without obstruction or gangrene, recurrence not specified Procedures CONSULT TO GENERAL SURGERY OFFICE/OUTPATIENT [facility] 60-74 MINUTES Robel Onofre, DO [address] [place] [address] Referral ID Status Reason Start Date Expiration Date Visits Requested Visits Authorized [id number] Authorized PCP Requested Referral 01/02/2022 01/02/2023 1 1 Summary Purpose Chief Complaint and Reason for Visit Chief Complaint 6 M FU RIGHT GROIN PAIN Reason for Visit Atherosclerosis of c oronary artery bypass graft(s) without angina pectoris Essential (primary) hypertension Hyperlipemia, mixed S/P CABG x 3 Stented coronary artery Chief Complaint GI BLEED UPPER GI BLEED, PEPE Reason for Visit Upper GI bleed Chief Complaint GI BLEED UPPER GI BLEED UPPER GI BLEED UPPER GI BLEED Reason for Visit Acute blood loss ane abby PEPE (acute kidney injury) Erosive esophagitis Leukocytosis Status post bilateral inguinal hernia repair Upper GI bleed Urinary retention Chief Complaint Admit Date vertigo December 14, 2024 12: 39pm Chief Complaint Admit Date vertigo December 14, 2024 12: 39pm 1 Y FU March 22, 2025 2:14 pm Medications Administered Section Inactive Administered Medications - up to 3 most recent administrations Medication Order MAR Action Action Date Dose Rate Site acetaminophen 1,000 mg tab(s) (TYLENOL) 1,000 mg, ORAL, PRE-OP ONCE, 1 dose, On Fri06/12/22 at 1030, If ordered PRN for pain, patient/guardian may elect to receive this medication for higher pain levels INSTEAD of the opioid, if preferred: Yes, Preprocedure Given 06/12/2022 10:47 AM EDT 1,000 mg fentaNYL 50 mcg/mL 50 mcg injection (SUBLIMAZE) 50 mcg, INTRAVENOUS, EVERY 10 MINUTES NEEDED, 4 doses, Starting on Fri06/12/22 at 1311, Until Batool 06/13/22 at 0303, FIRST LINE THERAPY for mild, moderate, or severe pain, USE FOR MILD PAIN ONLY IF PATIENT IS UNABLE TO TOLERATE ORAL THERAPY, Recovery or Phase I (only) HYDROmorphone 0.2 mg injection (DILAUDID) 0.2 mg, INTRAVENOUS, EVERY 5 MINUTES NEEDED, 5 doses, Starting on Fri06/12/22 at 1311, Until Fri06/13/22 at 0303, SECOND LINE THERAPY for mild, moderate, or severe pain, USE FOR MILD PAIN ONLY IF PATIENT IS UNABLE TO TOLERATE ORAL THERAPY, Recovery or Phase I (only) lactated ringers iv infusion 5-30 mL/hr, INTRAVENOUS, CONTINUOUS, Starting on Fri06/12/22 at 1030, Until Fri06/12/22 at 1300, Preprocedure New Bag/Syringe/Bottle 06/12/2022 10:30 AM EDT 30 mL/hr 30 mL/hr lactated ringers iv infusion 50 mL/hr, INTRAVENOUS, CONTINUOUS, Starting on Fri06/12/22 at 1330, Until Fri06/13/22 at 0303, Recovery or Phase I (only) ondansetron (PF) 4 mg injection (ZOFRAN) 4 mg, INTRAVENOUS, EVERY 6 HOURS NEEDED, Starting on Fri06/12/22 at 1311, Until Fri06/13/22 at 0303, Nausea/Vomiting - First Line - Parenteral, Shivering, EVERY 6 HOURS NEEDED Give IV push over 2 minutes. Use when patient unable to take medications by mouth., Recovery or Phase I (only) ondansetron orally disintegrating 4 mg tab(s) (ZOFRAN ODT) 4 mg, ORAL, EVERY 6 HOURS NEEDED, Starting on Fri06/12/22 at 1311, Until Batool 06/13/22 at 0303, Nausea/Vomiting - First Line - Enteral, EVERY 6 HOURS NEEDED Use when patient able to take medications by mouth. Place tablet on tongue and allow to dissolve; do not chew. Open packaging using dry hands; do not push tablet through packaging., Recovery or Phase I (only) oxyCODONE-acetaminophen 5-325 mg 1-2 tablet (PERCOCET) 1-2 tablet, ORAL, NEEDED, 1 dose, Starting on Fri06/12/22 at 1311, Until Fri06/12/22 at 1415, Moderate Pain (4-6) - Enteral, Recovery or Phase I (only) Given 06/12/2022 2:15 PM EDT 1 tablet scopolamine - REMOVE PATCH ONCE, Recovery or Phase I (only), THIS IS USED ONLY TO DOCUMENT PATCH REMOVAL. Use Remvd Patch action. scopolamine - VERIFY patch EVERY 8 HOURS, Recovery or Phase I (only), THIS IS USED ONLY TO DOCUMENT THAT THE PATCH IS VERIFIED ON OR OFF PER ORDER. Use Patch On or Patch Off action. scopolamine 1 mg over 3 days 1 Patch (TRANSDERM-SCOP) 1 Patch, TRANSDERMAL, Administer over 24 Hours, NEEDED, 1 dose, Starting on Fri06/12/22 at 1311, Until Batool 06/13/22 at 0303, Nausea/Vomiting - Second Line - Topical, Allow 4 hours to achieve onset Apply patch behind ear. Each time a new patch is needed it should be placed behind the alternate ear from the previous patch. Remove old patch. Each 1.5 mg patch delivers 1 mg of scopolamine over 3 days., Recovery or Phase I (only) Additional Source Comments (unrecognized sect ion and content) No Status Records FoundNo Status Records FoundNo Status Records FoundNo Status Records FoundNo Status Records Found INFORMATION SOURCE (unrecogn ized section and content) DATE CREATED AUTHOR 06/22/2021 [facility] DATE CREATED AUTHOR AUTHOR'S ORGANIZ ATION 06/17/2022 [facility] DATE CREATED AUTHOR AUTHOR'S ORGANIZ ATION 06/27/2025 [facility] DATE CREATED AUTHOR AUTHOR'S ORGANIZ ATION 06/28/2025 [facility] DATE CREATED AUTHOR AUTHOR'S ORGANIZ ATION 07/01/2025 [facility] Source Comments (unrecognize d section and content) In the event this informatio n is protected by the Federal Confidentiality of Alcohol and Drug Abuse Patient Records regulations: The Federal rules restrict any use of the information to criminally investigate or prosecute any alcohol or drug abuse patient.[facility]In the event this information is protected by the Federal Confidentiality of Alcohol and Drug Abuse Patient Records regulations: The Federal rules restrict any use of the information to criminally investigate or prosecute any alcohol or drug abuse patient.[facility] HospitalIn the event this information is protected by the Federal Confidentiality of Alcohol and Drug Abuse Patient Records regulations: The Federal rules restrict any use of the information to criminally investigate or prosecute any alcohol or drug abuse patient.[facility] HospitalIn the event this information is protected by the Federal Confidentiality of Alcohol and Drug Abuse Patient Records regulations: The Federal rules restrict any use of the information to criminally investigate or prosecute any alcohol or drug abuse patient.[facility] HospitalIn the event this information is protected by the Federal Confidentiality of Alcohol and Drug Abuse Patient Records regulations: The Federal rules restrict any use of the information to criminally investigate or prosecute any alcohol or drug abuse patient.[facility] HospitalIn the event this information is protected by the Federal Confidentiality of Alcohol and Drug Abuse Patient Records regulations: The Federal rules restrict any use of the information to criminally investigate or prosecute any alcohol or drug abuse patient.[facility] HospitalIn the event this information is protected by the Federal Confidentiality of Alcohol and Drug Abuse Patient Records regulations: The Federal rules restrict any use of the information to criminally investigate or prosecute any alcohol or drug abuse patient.[facility] HospitalIn the event this information is protected by the Federal Confidentiality of Alcohol and Drug Abuse Patient Records regulations: The Federal rules restrict any use of the information to criminally investigate or prosecute any alcohol or drug abuse patient.[facility] HospitalIn the event this information is protected by the Federal Confidentiality of Alcohol and Drug Abuse Patient Records regulations: The Federal rules restrict any use of the information to criminally investigate or prosecute any alcohol or drug abuse patient.[facility] HospitalIn the event this information is protected by the Federal Confidentiality of Alcohol and Drug Abuse Patient Records regulations: The Federal rules restrict any use of the information to criminally investigate or prosecute any alcohol or drug abuse patient.[facility] HospitalIn the event this information is protected by the Federal Confidentiality of Alcohol and Drug Abuse Patient Records regulations: The Federal rules restrict any use of the information to criminally investigate or prosecute any alcohol or drug abuse patient.[facility] HospitalIn the event this information is protected by the Federal Confidentiality of Alcohol and Drug Abuse Patient Records regulations: The Federal rules restrict any use of the information to criminally investigate or prosecute any alcohol or drug abuse patient.[facility] HospitalIn the event this information is protected by the Federal Confidentiality of Alcohol and Drug Abuse Patient Records regulations: The Federal rules restrict any use of the information to criminally investigate or prosecute any alcohol or drug abuse patient.[facility] HospitalIn the event this information is protected by the Federal Confidentiality of Alcohol and Drug Abuse Patient Records regulations: The Federal rules restrict any use of the information to criminally investigate or prosecute any alcohol or drug abuse patient.[facility] HospitalIn the event this information is protected by the Federal Confidentiality of Alcohol and Drug Abuse Patient Records regulations: The Federal rules restrict any use of the information to criminally investigate or prosecute any alcohol or drug abuse patient.[facility] HospitalIn the event this information is protected by the Federal Confidentiality of Alcohol and Drug Abuse Patient Records regulations: The Federal rules restrict any use of the information to criminally investigate or prosecute any alcohol or drug abuse patient.[facility] HospitalIn the event this information is protected by the Federal Confidentiality of Alcohol and Drug Abuse Patient Records regulations: The Federal rules restrict any use of the information to criminally investigate or prosecute any alcohol or drug abuse patient.[facility] HospitalIn the event this information is protected by the Federal Confidentiality of Alcohol and Drug Abuse Patient Records regulations: The Federal rules restrict any use of the information to criminally investigate or prosecute any alcohol or drug abuse patient.[facility] HospitalIn the event this information is protected by the Federal Confidentiality of Alcohol and Drug Abuse Patient Records regulations: The Federal rules restrict any use of the information to criminally investigate or prosecute any alcohol or drug abuse patient.[facility] HospitalIn the event this information is protected by the Federal Confidentiality of Alcohol and Drug Abuse Patient Records regulations: The Federal rules restrict any use of the information to criminally investigate or prosecute any alcohol or drug abuse patient.[facility] HospitalIn the event this information is protected by the Federal Confidentiality of Alcohol and Drug Abuse Patient Records regulations: The Federal rules restrict any use of the information to criminally investigate or prosecute any alcohol or drug abuse patient.[facility] HospitalIn the event this information is protected by the Federal Confidentiality of Alcohol and Drug Abuse Patient Records regulations: The Federal rules restrict any use of the information to criminally investigate or prosecute any alcohol or drug abuse patient.[facility] HospitalIn the event this information is protected by the Federal Confidentiality of Alcohol and Drug Abuse Patient Records regulations: The Federal rules restrict any use of the information to criminally investigate or prosecute any alcohol or drug abuse patient.[facility] HospitalIn the event this information is protected by the Federal Confidentiality of Alcohol and Drug Abuse Patient Records regulations: The Federal rules restrict any use of the information to criminally investigate or prosecute any alcohol or drug abuse patient.[facility] HospitalIn the event this information is protected by the Federal Confidentiality of Alcohol and Drug Abuse Patient Records regulations: The Federal rules restrict any use of the information to criminally investigate or prosecute any alcohol or drug abuse patient.[facility] HospitalIn the event this information is protected by the Federal Confidentiality of Alcohol and Drug Abuse Patient Records regulations: The Federal rules restrict any use of the information to criminally investigate or prosecute any alcohol or drug abuse patient.[facility] HospitalIn the event this information is protected by the Federal Confidentiality of Alcohol and Drug Abuse Patient Records regulations: The Federal rules restrict any use of the information to criminally investigate or prosecute any alcohol or drug abuse patient.[facility] HospitalIn the event this information is protected by the Federal Confidentiality of Alcohol and Drug Abuse Patient Records regulations: The Federal rules restrict any use of the information to criminally investigate or prosecute any alcohol or drug abuse patient.[facility] HospitalIn the event this information is protected by the Federal Confidentiality of Alcohol and Drug Abuse Patient Records regulations: The Federal rules restrict any use of the information to criminally investigate or prosecute any alcohol or drug abuse patient.[facility] HospitalIn the event this information is protected by the Federal Confidentiality of Alcohol and Drug Abuse Patient Records regulations: The Federal rules restrict any use of the information to criminally investigate or prosecute any alcohol or drug abuse patient.[facility] HospitalIn the event this information is protected by the Federal Confidentiality of Alcohol and Drug Abuse Patient Records regulations: The Federal rules restrict any use of the information to criminally investigate or prosecute any alcohol or drug abuse patient.[facility] HospitalIn the event this information is protected by the Federal Confidentiality of Alcohol and Drug Abuse Patient Records regulations: The Federal rules restrict any use of the information to criminally investigate or prosecute any alcohol or drug abuse patient.[facility] HospitalIn the event this information is protected by the Federal Confidentiality of Alcohol and Drug Abuse Patient Records regulations: The Federal rules restrict any use of the information to criminally investigate or prosecute any alcohol or drug abuse patient.[facility] HospitalIn the event this information is protected by the Federal Confidentiality of Alcohol and Drug Abuse Patient Records regulations: The Federal rules restrict any use of the information to criminally investigate or prosecute any alcohol or drug abuse patient.[facility] HospitalIn the event this information is protected by the Federal Confidentiality of Alcohol and Drug Abuse Patient Records regulations: The Federal rules restrict any use of the information to criminally investigate or prosecute any alcohol or drug abuse patient.[facility] HospitalIn the event this information is protected by the Federal Confidentiality of Alcohol and Drug Abuse Patient Records regulations: The Federal rules restrict any use of the information to criminally investigate or prosecute any alcohol or drug abuse patient.[facility] HospitalIn the event this information is protected by the Federal Confidentiality of Alcohol and Drug Abuse Patient Records regulations: The Federal rules restrict any use of the information to criminally investigate or prosecute any alcohol or drug abuse patient.[facility] HospitalIn the event this information is protected by the Federal Confidentiality of Alcohol and Drug Abuse Patient Records regulations: The Federal rules restrict any use of the information to criminally investigate or prosecute any alcohol or drug abuse patient.[facility] HospitalIn the event this information is protected by the Federal Confidentiality of Alcohol and Drug Abuse Patient Records regulations: The Federal rules restrict any use of the information to criminally investigate or prosecute any alcohol or drug abuse patient.[facility] HospitalIn the event this information is protected by the Federal Confidentiality of Alcohol and Drug Abuse Patient Records regulations: The Federal rules restrict any use of the information to criminally investigate or prosecute any alcohol or drug abuse patient.[facility] HospitalIn the event this information is protected by the Federal Confidentiality of Alcohol and Drug Abuse Patient Records regulations: The Federal rules restrict any use of the information to criminally investigate or prosecute any alcohol or drug abuse patient.[facility] HospitalIn the event this information is protected by the Federal Confidentiality of Alcohol and Drug Abuse Patient Records regulations: The Federal rules restrict any use of the information to criminally investigate or prosecute any alcohol or drug abuse patient.[facility] HospitalIn the event this information is protected by the Federal Confidentiality of Alcohol and Drug Abuse Patient Records regulations: The Federal rules restrict any use of the information to criminally investigate or prosecute any alcohol or drug abuse patient.[facility] HospitalIn the event this information is protected by the Federal Confidentiality of Alcohol and Drug Abuse Patient Records regulations: The Federal rules restrict any use of the information to criminally investigate or prosecute any alcohol or drug abuse patient.[facility] HospitalIn the event this information is protected by the Federal Confidentiality of Alcohol and Drug Abuse Patient Records regulations: The Federal rules restrict any use of the information to criminally investigate or prosecute any alcohol or drug abuse patient.[facility] HospitalIn the event this information is protected by the Federal Confidentiality of Alcohol and Drug Abuse Patient Records regulations: The Federal rules restrict any use of the information to criminally investigate or prosecute any alcohol or drug abuse patient.[facility] HospitalIn the event this information is protected by the Federal Confidentiality of Alcohol and Drug Abuse Patient Records regulations: The Federal rules restrict any use of the information to criminally investigate or prosecute any alcohol or drug abuse patient.[facility] HospitalIn the event this information is protected by the Federal Confidentiality of Alcohol and Drug Abuse Patient Records regulations: The Federal rules restrict any use of the information to criminally investigate or prosecute any alcohol or drug abuse patient.[facility] HospitalIn the event this information is protected by the Federal Confidentiality of Alcohol and Drug Abuse Patient Records regulations: The Federal rules restrict any use of the information to criminally investigate or prosecute any alcohol or drug abuse patient.[facility] HospitalIn the event this information is protected by the Federal Confidentiality of Alcohol and Drug Abuse Patient Records regulations: The Federal rules restrict any use of the information to criminally investigate or prosecute any alcohol or drug abuse patient.[facility] HospitalIn the event this information is protected by the Federal Confidentiality of Alcohol and Drug Abuse Patient Records regulations: The Federal rules restrict any use of the information to criminally investigate or prosecute any alcohol or drug abuse patient.[facility] HospitalIn the event this information is protected by the Federal Confidentiality of Alcohol and Drug Abuse Patient Records regulations: The Federal rules restrict any use of the information to criminally investigate or prosecute any alcohol or drug abuse patient.[facility] HospitalIn the event this information is protected by the Federal Confidentiality of Alcohol and Drug Abuse Patient Records regulations: The Federal rules restrict any use of the information to criminally investigate or prosecute any alcohol or drug abuse patient.[facility] HospitalIn the event this information is protected by the Federal Confidentiality of Alcohol and Drug Abuse Patient Records regulations: The Federal rules restrict any use of the information to criminally investigate or prosecute any alcohol or drug abuse patient.[facility] HospitalIn the event this information is protected by the Federal Confidentiality of Alcohol and Drug Abuse Patient Records regulations: The Federal rules restrict any use of the information to criminally investigate or prosecute any alcohol or drug abuse patient.[facility] HospitalIn the event this information is protected by the Federal Confidentiality of Alcohol and Drug Abuse Patient Records regulations: The Federal rules restrict any use of the information to criminally investigate or prosecute any alcohol or drug abuse patient.[facility] HospitalIn the event this information is protected by the Federal Confidentiality of Alcohol and Drug Abuse Patient Records regulations: The Federal rules restrict any use of the information to criminally investigate or prosecute any alcohol or drug abuse patient.[facility] HospitalIn the event this information is protected by the Federal Confidentiality of Alcohol and Drug Abuse Patient Records regulations: The Federal rules restrict any use of the information to criminally investigate or prosecute any alcohol or drug abuse patient.[facility] HospitalIn the event this information is protected by the Federal Confidentiality of Alcohol and Drug Abuse Patient Records regulations: The Federal rules restrict any use of the information to criminally investigate or prosecute any alcohol or drug abuse patient.[facility] HospitalIn the event this information is protected by the Federal Confidentiality of Alcohol and Drug Abuse Patient Records regulations: The Federal rules restrict any use of the information to criminally investigate or prosecute any alcohol or drug abuse patient.[facility] HospitalIn the event this information is protected by the Federal Confidentiality of Alcohol and Drug Abuse Patient Records regulations: The Federal rules restrict any use of the information to criminally investigate or prosecute any alcohol or drug abuse patient.[facility] HospitalIn the event this information is protected by the Federal Confidentiality of Alcohol and Drug Abuse Patient Records regulations: The Federal rules restrict any use of the information to criminally investigate or prosecute any alcohol or drug abuse patient.[facility] HospitalIn the event this information is protected by the Federal Confidentiality of Alcohol and Drug Abuse Patient Records regulations: The Federal rules restrict any use of the information to criminally investigate or prosecute any alcohol or drug abuse patient.[facility] HospitalIn the event this information is protected by the Federal Confidentiality of Alcohol and Drug Abuse Patient Records regulations: The Federal rules restrict any use of the information to criminally investigate or prosecute any alcohol or drug abuse patient.[facility] HospitalIn the event this information is protected by the Federal Confidentiality of Alcohol and Drug Abuse Patient Records regulations: The Federal rules restrict any use of the information to criminally investigate or prosecute any alcohol or drug abuse patient.[facility] Reason for Visit (unrecogniz ed section and content) Reason Comments 6 Month Exam Reason Comments Right groin pain Reason Comments hernia right groin area Reason Comments Faxed orders Reason Comments Change Of Order [facility] radiology dept. Reason Comments Results Appointment Reason Comments Consult bilateral inguinal h ernia Specialty Diagnoses / Procedures Referred By Contac t Referred To Contact General Surgery Diagnoses Bilateral inguinal hernia without obstruction or gangrene, recurrence not specified Procedures CONSULT TO GENERAL SURGERY OFFICE/OUTPATIENT NEW HIGH MDM 60-74 MINUTES Robel Onofre, DO [address] [place] [address] Referral ID Status Reason Start Date Expiration Date V isits Requested Visits Authorized [id number] Closed PCP Requested Referral 01/02/2022 01/02/2023 1 1 Reason Comments Patient Update Appointment Reason Comments Results Reason Onset Date Comments Refill Request 02/18/2022 Reason Onset Date Comments Refill Request 04/08/2022 Reason Comments Follow Up Bilateral inguinal h ernia Reason Comments Consult Reason Comments Recheck Reason Comments Patient Update Specialty Diagnoses / Procedures Referred By Contac t Referred To Contact Diagnoses Right inguinal hernia Right inguinal hernia [K40.90] Procedures LAPAROSCOPY SURG RPR INITIAL INGUINAL HERNIA LAPAROSCOPY SURGICAL REPAIR INITIAL INGUINAL HERNIA W/ MESH [facility] [address] [place] [address] Referral ID Status Reason Start Date Expiration Date Visits Re quested Visits Authorized [id number] 1 1 Reason Comments Orders Reason Comments Hospital F/U Reason Onset Date Comments Refill Request 07/24/2022 Reason Comments Refill Request Reason Onset Date Comments Refill Request 10/17/2022 Reason Comments Handicap Placard Reason Onset Date Comments Refill Request 02/12/2023 Reason Onset Date Comments Refill Request 03/31/2023 Reason Onset Date Comments Yearly Exam Immunizations 06/13/2023 Flu vaccination Reason Onset Date Comments Refill Request 07/25/2023 Reason Onset Date Comments Refill Request 07/31/2023 Reason Onset Date Comments Refill Request 10/14/2023 Reason Onset Date Comments Refill Request 11/12/2023 Reason Onset Date Comments Refill Request 11/24/2023 error 11/24/2023 Reason Onset Date Comments Refill Request 11/25/2023 Reason Comments Depression Reason Comments Medication Follow-up Reason Onset Date Comments Refill Request 05/04/2024 Reason Onset Date Comments 6 Month Exam Immunizations 06/30/2024 Flu vaccination Reason Onset Date Comments Refill Request 08/11/2024 Reason Onset Date Comments Refill Request 10/08/2024 Reason Comments Letter Blindness confirmati on for taxes Reason Onset Date Comments Refill Request 11/08/2024 Reason Onset Date Comments Refill Request 11/22/2024 Reason Onset Date Comments Refill Request 12/09/2024 Reason Comments Vertigo Reason Comments Vertigo Dizziness x 1 day Reason Comments Patient Question Reason Comments Follow Up Reason Onset Date Comments Population Health Navigation Outreach 01/18/2025 Marianne/Workbench/ACO Reason Onset Date Comments Refill Request 03/17/2025 Care Teams (unrecognized sec tion and content) Inspector Firearms Relationship Specialty Start Date End Date Robel Onofre, DO [address] [place] [address] PCP - General Family Practice 10/01/19 Inspector Firearms Relationship Specialty Start Date End Date Robel Onofre, DO [address] [place] [address] PCP - General Family Practice 10/01/19 Inspector Firearms Relationship Specialty Start Date End Date Robel Onofre, DO [address] [place] [address] PCP - General Family Practice 10/01/19 Inspector Firearms Relationship Specialty Start Date End Date Robel Onofre, DO [address] [place] [address] PCP - General Family Practice 10/01/19 Inspector Firearms Relationship Specialty Start Date End Date Robel Onofre, DO [address] [place] [address] PCP - General Family Practice 10/01/19 Inspector Firearms Relationship Specialty Start Date End Date Robel Onofre, DO [address] [facility] [place] [address] PCP - General Family Practice 10/01/19 Inspector Firearms Relationship Specialty Start Date End Date Robel Onofre, DO [address] [place] [address] PCP - General Family Practice 10/01/19 Inspector Firearms Relationship Specialty Start Date End Date Robel Onofre, DO [address] [place] [address] PCP - General Family Practice 10/01/19 Inspector Firearms Relationship Specialty Start Date End Date Robel Onofre, DO [address] [place] [address] PCP - General Family Medicine 10/01/19 Inspector Firearms Relationship Specialty Start Date End Date Robel Onofre, DO [address] [place] [address] PCP - General Family Medicine 10/01/19 Inspector Firearms Relationship Specialty Start Date End Date Robel Onofre, DO [address] [place] [address] PCP - General Family Medicine 10/01/19 Inspector Firearms Relationship Specialty Start Date End Date Robel Onofre, DO [address] [place] [address] PCP - General Family Medicine 10/01/19 Inspector Firearms Relationship Specialty Start Date End Date Robel Onofre, DO [address] [place] [address] PCP - General Family Medicine 10/01/19 Inspector Firearms Relationship Specialty Start Date End Date Robel Onofre, DO [address] [place] [address] PCP - General Family Medicine 10/01/19 Inspector Firearms Relationship Specialty Start Date End Date Robel Onofre, DO [address] [place] [address] PCP - General Family Medicine 10/01/19 Inspector Firearms Relationship Specialty Start Date End Date Robel Onofre, DO [address] [place] [address] PCP - General Family Medicine 10/01/19 Inspector Firearms Relationship Specialty Start Date End Date Robel Onofre, DO [address] [place] [address] PCP - General Family Medicine 10/01/19 Inspector Firearms Relationship Specialty Start Date End Date Robel Onofre, DO [address] [place] [address] PCP - General Family Medicine 10/01/19 Inspector Firearms Relationship Specialty Start Date End Date Robel Onfore, DO [address] [place] [address] PCP - General Family Medicine 10/01/19 Inspector Firearms Relationship Specialty Start Date End Date Robel Onofre, DO [address] [place] [address] PCP - General Family Medicine 10/01/19 Inspector Firearms Relationship Specialty Start Date End Date Robel Onofre, DO [address] [place] [address] PCP - General Family Medicine 10/01/19 Inspector Firearms Relationship Specialty Start Date End Date Robel Onofre DO [address] [place] [address] PCP - General Family Medicine 10/01/19 Inspector Firearms Relationship Specialty Start Date End Date Robel Onofre DO [address] [place] [address] PCP - General Family Medicine 10/01/19 Inspector Firearms Relationship Specialty Start Date End Date Robel Onofre DO [address] [facility] [place] [address] PCP - General Family Medicine 10/01/19 Inspector Firearms Relationship Specialty Start Date End Date Robel Onofre, [address] [facility] [place] [address] PCP - General Family Medicine 10/01/19 Inspector Firearms Relationship Specialty Start Date End Date Robel Onofre, [address] [facility] [place] [address] PCP - General Family Medicine 10/01/19 Inspector Firearms Relationship Specialty Start Date End Date Robel Onofre, [address] [place] [address] PCP - General Family Medicine 10/01/19 Inspector Firearms Relationship Specialty Start Date End Date Robel Onofre, [address] [place] [address] PCP - General Family Medicine 10/01/19 Inspector Firearms Relationship Specialty Start Date End Date Robel Onofre, [address] [place] [address] PCP - General Family Medicine 10/01/19 Inspector Firearms Relationship Specialty Start Date End Date Robel Onofre, [address] [place] [address] PCP - General Family Medicine 10/01/19 Inspector Firearms Relationship Specialty Start Date End Date Robel Onofre DO [address] [place] [place] [address] PCP - General Family Medicine 10/01/19 Inspector Firearms Relationship Specialty Start Date End Date Robel Onofre DO [address] [place] [address] PCP - General Family Medicine 10/01/19 Inspector Firearms Relationship Specialty Start Date End Date Robel Onofre DO [address] [place] [address] PCP - General Family Medicine 10/01/19 Inspector Firearms Relationship Specialty Start Date End Date Robel Onofre DO [address] [place] [address] PCP - General Family Medicine 10/01/19 Inspector Firearms Relationship Specialty Start Date End Date Robel Onofre DO [address] [place] [address] PCP - General Family Medicine 10/01/19 Cat Foote, DRILLER HAND.MACHINIST APPRENTICE [address] [place] [place] [address] Receptionist Nurse Family Medicine 08/01/24 Bessie Ambrocio, DRILLER HAND.MACHINIST APPRENTICE [address] [place] [place] [address] Receptionist Nurse Family Medicine 08/01/24 Inspector Firearms Relationship Specialty Start Date End Date Robel Onofre DO [address] [place] [address] PCP - General Family Medicine 10/01/19 Cat Foote, DRILLER HAND.MACHINIST APPRENTICE [address] [place] [place] [address] Receptionist Nurse Family Medicine 08/01/24 Bessie Ambrocio DRILLER HAND.MACHINIST APPRENTICE [address] [place] [address] Receptionist Nurse Family [facility] 08/01/24 Inspector Firearms Relationship Specialty Start Date End Date Robel Onofre DO [address] [facility] [place] [address] PCP - General Family Medicine 10/01/19 Cat Foote, DRILLER HAND.MACHINIST APPRENTICE [address] [facility] [place] [address] Receptionist Nurse Family Medicine 08/01/24 Bessie Ambrocio, DRILLER HAND.MACHINIST APPRENTICE [address] [facility] [place] [address] [facility] Inspector Firearms Relationship Specialty Start Date End Date Robel Onofre DO [address] [facility] [place] [address] PCP - General Family Medicine 10/01/19 Cat Foote, DRILLER HAND.MACHINIST APPRENTICE [address] [facility] [place] [address] Receptionist Nurse Family Medicine 08/01/24 Bessie Ambrocio, DRILLER HAND.MACHINIST APPRENTICE [address] [facility] [place] [address] [facility] 08/01/24 Inspector Firearms Relationship Specialty Start Date End Date Robel Onofre DO [address] [facility] [place] [address] PCP - General Family Medicine 10/01/19 Bessie Ambrocio, DRILLER HAND.MACHINIST APPRENTICE [address] [place] [address] [facility] 08/01/24 Inspector Firearms Relationship Specialty Start Date End Date Robel Onofre DO [address] [place] [address] PCP - General Family Medicine 10/01/19 Cat Foote, DRILLER HAND.MACHINIST APPRENTICE [address] [place] [address] [facility] 08/01/24 11/12/24 Bessie Ambrocio, DRILLER HAND.MACHINIST APPRENTICE [address] [place] [address] Formerly [facility] 08/01/24 Inspector Firearms Relationship Specialty Start Date End Date Robel Onofre DO [address] [place] [address] PCP - General Family Medicine 10/01/19 Bessie Ambrocio, DRILLER HAND.MACHINIST APPRENTICE [address] [place] [address] Formerly [facility] 08/01/24 Team Status: Active Member Role Status Dates Dr. Robel Onofre DO Primary Care Provider Active Team Status: Inactive Member Role Status Dates Dr. Robel Onofre DO Primary Care Provider Active Start: December 14, 2024 End: December 14, 2024 Dr. Cristobal Mayo DO Emergency Provider Active Start : December 14, 2024 End: December 14, 2024 Inspector Firearms Relationship Specialty Start Date End Date Robel Onofre DO [address] [place] [address] PCP - General Family Medicine 10/01/19 Bessie Ambrocio, DRILLER HAND.MACHINIST APPRENTICE [address] [place] [address] Receptionist Nurse Family Medicine 08/01/24 Inspector Firearms Relationship Specialty Start Date End Date Robel Onofre DO [address] [place] [place] [address] PCP - General Family Medicine 10/01/19 [facility] DRILLER HAND.MACHINIST APPRENTICE [address] [place] [address] Receptionist Nurse Family [facility] 08/01/24 Inspector Firearms Relationship Specialty Start Date End Date Robel Onofre DO [address] [place] [address] PCP - General Family Medicine 10/01/19 [facility], DRILLER HAND.MACHINIST APPRENTICE [address] [place] [address] Receptionist Nurse Family [facility] 08/01/24 Inspector Firearms Relationship Specialty Start Date End Date Robel Onofre DO [address] [place] [address] PCP - General Family Medicine 10/01/19 [facility], DRILLER HAND.MACHINIST APPRENTICE [address] [place] [address] Receptionist Nurse Family Medicine 08/01/24 Una Mckinley, DRILLER HAND.MACHINIST APPRENTICE [address] [place] [address] Receptionist Nurse Family Medicine 02/07/25 Inspector Firearms Relationship Specialty Start Date End Date Robel Onofre DO [address] [place] [address] PCP - General Family Medicine 10/01/19 Bessie Ambrocio APRN.MACHINIST APPRENTICE [address] [place], [place] [address] Receptionist Nurse Family Medicine 08/01/24 Una Mckinley, GIA.MACHINIST APPRENTICE [address] [place], [place] [address] Receptionist Nurse Family Medicine 02/07/25 Team Status: Active Member Role/Relationship Status Dates Dr. Robel Onofre DO Primary Care Provider Active Team Status: Inactive Member Role/Relationship Status Dates Dr. Robel Onofre DO Primary Care Provider Active Start: December 14, 2024 End: December 14, 2024 Dr. Cristobal Mayo DO Attending Provider Active Start : December 14, 2024 End: December 14, 2024 Dr. Cristobal Mayo DO Emergency Provider Active Start : December 14, 2024 End: December 14, 2024 Team Status: Inactive Member Role/Relationship Status Dates Dr. Robel Onofre DO Primary Care Provider Active Start: March 22, 2025 End: March 22, 2025 Dr. Robel Onofre DO Referring Provider Active Start: March 22, 2025 End: March 22, 2025 Dr. Jamal Dawson MD Attending Provider Active S tart: March 22, 2025 End: March 22, 2025 Goals (unrecognized section and content) Goals may be documented in a n alternate sectionGoals may be documented in an alternate sectionGoals may be documented in an alternate sectionGoals may be documented in an alternate section Scheduled Active and Recently Administ ered Medications (unrecognized section and content) Medication Order 06/10/2022 06/11/2022 06/12/2022 acetaminophen 1,000 mg tab(s) (TYLENOL) (COMPLETED) 1,000 mg, ORAL, PRE-OP ONCE, 1 dose, On Fri06/12/22 at 1030, If ordered PRN for pain, patient/guardian may elect to receive this medication for higher pain levels INSTEAD of the opioid, if preferred: Yes, Preprocedure 1047 (Given - Provid er: Tiffanie Gross RN) ceFAZolin iv piggyback 2 g in D5W (iso-osmotic) 100 mL (ANCEF) (COMPLETED) 2 g, INTRAVENOUS, at 200 mL/hr, Administer over 30 Minutes, PRE-OP ONCE, 1 dose, On Fri06/12/22 at 1030, General Cases PRE-OP ANTIBIOTIC ADMINISTER ONLY IN SURGICAL AREA - DO NOT ADMINSTER ON THE FLOOR Refrigerate, Please document the antimicrobial indication: Prophylaxis, Preprocedure 1047 (Sent with Bella ent - Provider: Tiffanie Gross RN)1140 (Given - Provider: Tamara Stinson APRN.MEMORY CARE PROGRAM RESIDENT) scopolamine - REMOVE PATCH(Linked Group 1) ONCE, Recovery or Phase I (only), THIS IS USED ONLY TO DOCUMENT PATCH REMOVAL. Use Remvd Patch action. scopolamine - VERIFY patch(Linked Group 1) EVERY 8 HOURS, Recovery or Phase I (only), THIS IS USED ONLY TO DOCUMENT THAT THE PATCH IS VERIFIED ON OR OFF PER ORDER. Use Patch On or Patch Off action. 1330 (Due) Continuous Medication Order 06/10/2022 06/11/2022 06/12/2022 lactated ringers iv infusion (CANCELED) 5-30 mL/hr, INTRAVENOUS, CONTINUOUS, Starting on Fri06/12/22 at 1030, Until Fri06/12/22 at 1300, Preprocedure 1030 (New Bag/Syring e/Bottle - Provider: Tiffanie Gross RN)1300 (Due: Infusion Complete) lactated ringers iv infusion 50 mL/hr, INTRAVENOUS, CONTINUOUS, Starting on Fri06/12/22 at 1330, Until Batool 06/13/22 at 0303, Recovery or Phase I (only) 1330 (Due) PRN Medication Order 06/10/2022 06/11/2022 06/12/2022 bupivacaine (PF) 0.5 % (5 mg/mL) injection (CANCELED) X (OR/PROCEDURE) PRN, Starting on Fri06/12/22 at 1211, Until Fri06/12/22 at 1305, Intraprocedure 1211 (Given - Provid er: Florencio Tesfaye MD) fentaNYL 50 mcg/mL 50 mcg injection (SUBLIMAZE) 50 mcg, INTRAVENOUS, EVERY 10 MINUTES NEEDED, 4 doses, Starting on Fri06/12/22 at 1311, Until Batool 06/13/22 at 0303, FIRST LINE THERAPY for mild, moderate, or severe pain, USE FOR MILD PAIN ONLY IF PATIENT IS UNABLE TO TOLERATE ORAL THERAPY, Recovery or Phase I (only) HYDROmorphone 0.2 mg injection (DILAUDID) 0.2 mg, INTRAVENOUS, EVERY 5 MINUTES NEEDED, 5 doses, Starting on Fri06/12/22 at 1311, Until Batool 06/13/22 at 0303, SECOND LINE THERAPY for mild, moderate, or severe pain, USE FOR MILD PAIN ONLY IF PATIENT IS UNABLE TO TOLERATE ORAL THERAPY, Recovery or Phase I (only) ondansetron (PF) 4 mg injection (ZOFRAN)(Linked Group 2) 4 mg, INTRAVENOUS, EVERY 6 HOURS NEEDED, Starting on Fri06/12/22 at 1311, Until Batool 06/13/22 at 0303, Nausea/Vomiting - First Line - Parenteral, Shivering, EVERY 6 HOURS NEEDED Give IV push over 2 minutes. Use when patient unable to take medications by mouth., Recovery or Phase I (only) ondansetron orally disintegrating 4 mg tab(s) (ZOFRAN ODT)(Linked Group 2) 4 mg, ORAL, EVERY 6 HOURS NEEDED, Starting on Fri06/12/22 at 1311, Until Batool 06/13/22 at 0303, Nausea/Vomiting - First Line - Enteral, EVERY 6 HOURS NEEDED Use when patient able to take medications by mouth. Place tablet on tongue and allow to dissolve; do not chew. Open packaging using dry hands; do not push tablet through packaging., Recovery or Phase I (only) oxyCODONE-acetaminophen 5-325 mg 1-2 tablet (PERCOCET) (COMPLETED) 1-2 tablet, ORAL, NEEDED, 1 dose, Starting on Fri06/12/22 at 1311, Until Discontinued, Moderate Pain (4-6) - Enteral, Recovery or Phase I (only) 1415 (Given - Provid er: Delma Sharp RN) scopolamine 1 mg over 3 days 1 Patch (TRANSDERM-SCOP)(Linked Group 1) 1 Patch, TRANSDERMAL, Administer over 24 Hours, NEEDED, 1 dose, Starting on Fri06/12/22 at 1311, Until [place] 06/13/22 at 0303, Nausea/Vomiting - Second Line - Topical, Allow 4 hours to achieve onset Apply patch behind ear. Each time a new patch is needed it should be placed behind the alternate ear from the previous patch. Remove old patch. Each 1.5 mg patch delivers 1 mg of scopolamine over 3 days., Recovery or Phase I (only) Linked Groups Order Group 1: scopolamine 1 mg over 3 days 1 Patch (TRANSDERM-SCOP)Jump to med 1 Patch, TRANSDERMAL, Administer over 24 Hours, NEEDED, 1 dose, Starting on Fri06/12/22 at 1311, Until [place] 06/13/22 at 0303, Nausea/Vomiting - Second Line - Topical
Allow 4 hours to achieve onset Apply patch behind ear. Each time a new patch is needed it should be placed behind the alternate ear from the previous patch. Remove old patch. Each 1.5 mg patch delivers 1 mg of scopolamine over 3 days.
Recovery or Phase I (only) And scopolamine - VERIFY patchJump to med EVERY 8 HOURS, Recovery or Phase I (only)
THIS IS USED ONLY TO DOCUMENT THAT THE PATCH IS VERIFIED ON OR OFF PER ORDER. Use Patch On or Patch Off action.
And scopolamine - REMOVE PATCHJump to med ONCE, Recovery or Phase I (only)
THIS IS USED ONLY TO DOCUMENT PATCH REMOVAL. Use Remvd Patch action.
Group 2: ondansetron orally disintegrating 4 mg tab(s) (ZOFRAN ODT)Jump to med 4 mg, ORAL, EVERY 6 HOURS NEEDED, Starting on Fri06/12/22 at 1311, Until [place] 06/13/22 at 0303, Nausea/Vomiting - First Line - Enteral
EVERY 6 HOURS NEEDED Use when patient able to take medications by mouth. Place tablet on tongue and allow to dissolve; do not chew. Open packaging using dry hands; do not push tablet through packaging.
Recovery or Phase I (only) Or ondansetron (PF) 4 mg injection (ZOFRAN)Jump to med 4 mg, INTRAVENOUS, EVERY 6 HOURS NEEDED, Starting on 06/12/22 at 1311, Until [place] 06/13/22 at 0303, Nausea/Vomiting - First Line - Parenteral, Shivering
EVERY 6 HOURS NEEDED Give IV push over 2 minutes. Use when patient unable to take medications by mouth.
Recovery or Phase I (only) FOR RECORDS PERTAINING TO PATIENTS WHO ARE OR HAVE BEEN ENROLLED IN A CHEMICAL DEPENDENCY/SUBSTANCEABUSE PROGRAM, SOME INFORMATION MAY BE OMITTED. This clinical summary was aggregated from multiple sources. Caution should be exercised in using it in the provision of clinical care. This summary normalizes information from multiple sources, and as a consequence, information in this document may materially change the coding, format and clinical context of patient data. In addition, data may be omitted in some cases. CLINICAL DECISIONS SHOULD BE BASED ON THE PRIMARY CLINICAL RECORDS. [facility] [employer] [facility]. provides no warranty or guarantee of the accuracy or completeness of information in this document.
[2025-07-19 00:11] LABS: Allen Test Positive; Base Excess -4 mmol/L (-2 to +2); FI02 60.0; PO2 91 mmHG (75-100); SITE R Radial; SO2 97 % (94-98)
--- NOTE | 2025-07-19 00:11 | EKG12_ITS ---
Test Reason : DYSRHYTHMIA Blood Pressure : */* mmHG Vent. Rate : 99 BPM Atrial Rate : 99 BPM P-R Int : 164 ms QRS Dur : 104 ms QT Int : 386 ms P-R-T Axes : 61 41 103 degrees QTcB Int : 495 ms Normal sinus rhythm Possible Left atrial enlargement Left ventricular hypertrophy ( Sokolow-Gill , Romhilt-Melendrez ) ST & T wave abnormality, consider inferior ischemia Prolonged QT Abnormal ECG Confirmed by DEREK CAMPA, MARTHA ([id number]), news copy editor HAM ALEXANDRA ([id number]) on 07/20/2025 9:13:45 AM Referred By: AIDEN Confirmed By: MARTHA REED MD
--- NOTE | 2025-07-19 00:20 | RAD_ITS ---
PROCEDURE: CHEST 1 VIEW (PORTABLE) 07/19/2025 REASON FOR EXAM: DYSPNEA TECHNIQUE: Frontal view of the chest. COMPARISON: 06/13/2022. FINDINGS: Hazy interstitial markings are noted within both lungs concerning for interstitial infiltrates. 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 Atherosclerotic calcifications are noted within the aortic knob. No acute osseous abnormality. RAD/Chest 1 View (Portable) IMPRESSION: As above. Reading Location: [id number]
[2025-07-19 00:23] LABS: Hematocrit 44.9 % (40-54); Hemoglobin 14.9 g/dL (13.0-16.5); Immature Granulocytes Count 0.060 X10^3/uL (0.0-0.0); Mean Corp Hgb Conc 33.2 g/dL (32-36); Mean Corpuscular Volume 86.2 fL (80-94); Mean Platelet Vol. 10.0 fl (6.2-12.0); NRBC Flagged by Analyzer 0 % (0-5); Platelet Count 140 K/mm3 (150-450); RBC Distribution Width CV 14.7 % (11.6-14.6); RBC Distribution Width SD 46.0 fl (35.1-43.9); Red Blood Count 5.21 M/mm3 (4.6-6.2); White Blood Count 10.9 K/mm3 (4.4-11.0)
[2025-07-19 00:43] LABS: Troponin T High Sensitivity 1994 ng/L (<=22)
[2025-07-19 00:50] LABS: Anion Gap 14 (5-15); BUN 26 mg/dL (4-19); BUN/Creat Ratio 21.9 RATIO (10-20); Calcium,Total 9.3 mg/dL (7.6-11.0); Carbon Dioxide 18.4 mmol/L (21.0-32.0); Chloride 103 mmol/L (98-108); Estimated Creatinine Clearance 46.92 ml/min (50-250); Glucose 201 mg/dL (70-99); Magnesium 2.3 mg/dL (1.5-2.2); Potassium 4.0 mmol/L (3.3-5.1); Pro- Brain NATRIURETIC PEPTIDE 2378 pg/mL (<=1800); Procalcitonin 0.07 ng/mL (<=0.10)
--- NOTE | 2025-07-19 01:46 | EX.ED.DYSGE1 ---
HPI History of Present Illness Chief Complaint: Shortness of Breath Informant: patient, family and EMS Narrative Narrative: Patient is an 85-year-old male with past medical history of hypertension hyperlipidemia coronary artery disease status post CABG and stent placement as well as aortic aneurysm repair. He states he does not have a history of lung disorders such as asthma or COPD and does not smoke nor does he require oxygen at baseline. He states he has had a slight cough for the last few days but nothing that is worrisome. He ate dinner with his son this evening and he and his son both reported that he felt normal and did not have any signs of respiratory distress or difficulty breathing. The patient reports he went to bed normally and then awoke with chest discomfort that was in the midsternal region as well as shortness of breath. Secondary to his cardiac history EMS was called. When they arrived he was awake and alert but his pulse ox was low at approximately 80% and he was having difficulty breathing so they placed him on a nonrebreather. [facility] Medical History Hiatal hernia Restless legs High cholesterol History of stress test HTN (hypertension) Heart attack Macular degeneration of both eyes Atherosclerosis of coronary artery bypass graft(s) without angina pectoris Dyspnea on exertion Atherosclerosis of [place] coronary artery of [place] heart without angina pectoris Lupus anticoagulant disorder Syncope Spinal stenosis Rheumatic fever Essential (primary) hypertension Hyperlipemia, mixed Home Medications ?Medication ?Instructions ?Recorded ?Last Taken ?Type finasteride 5 mg tablet 5 mg PO DAILY prostate 02/23/18 12/14/24 History tamsulosin 0.4 mg capsule 0.4 mg PO BID prostate 10/27/19 12/14/24 History atenolol 50 mg tablet 50 mg PO DAILY BLOOD PRESSURE 11/18/19 12/14/24 History clopidogrel 75 mg tablet 75 mg PO DAILY BLOOD THINNER #90 02/07/20 12/14/24 Rx tabs simvastatin 20 mg tablet 20 mg PO QHS cholesterol #90 tabs 11/10/20 12/13/24 Rx cholecalciferol (vitamin D3) 50 50 mcg PO DAILY SUPPLEMENT 06/13/22 12/13/24 History mcg (2,000 unit) capsule (Vitamin D3) omeprazole 20 mg capsule,delayed 20 mg PO DAILY 02/07/23 12/13/24 History release sertraline 25 mg tablet 25 mg PO DAILY 02/06/24 12/13/24 History cyanocobalamin (vitamin B-12) 1,000 mcg IM .COMPLEX 12/14/24 11/30/24 History 1,000 mcg/mL injection solution lisinopril 10 mg tablet 10 mg PO DAILY 12/14/24 12/14/24 History Allergy/AdvReac Type Severity Reaction Status Date / Time No Known Allergies Allergy Verified 07/18/25 23:48 Family History Mother CAD (coronary artery disease) Brother CAD (coronary artery disease) CABG Brother CAD (coronary artery disease) Surgical History Status post bilateral inguinal hernia repair Status post cardiac surgery History of heart artery stent H/O cardiac catheterization History of tonsillectomy 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) Stented coronary artery (10/28/19) H/O coronary artery bypass surgery History of endovascular stent graft for abdominal aortic aneurysm (AAA) History of left heart catheterization Social History Smoking Status: Never smoker how long ago did patient quit smokin years ago alcohol intake: never substance use type: does not use caffeine: Yes Type: coffee Number of servings: 4 ROS ROS ED Constitutional Constitutional ED: Denies chills or fever(s) Eyes Eyes: Denies change in vision ENT ENT ED: Denies rhinorrhea or sore throat Cardiovascular Cardiovascular: Reports chest pain; Denies palpitations or racing heartbeat Respiratory/Chest Respiratory/Chest: Reports cough and dyspnea Gastrointestinal Gastrointestinal: Denies abdominal pain, diarrhea, nausea or vomiting Musculoskeletal Musculoskeletal: Denies back pain or myalgias Integumentary Denies rash Neurologic Neurologic: Denies headache(s) Hematologic/Lymphatic Hematologic/Lymphatic: Reports easy bleeding and easy bruising Allergic/Immunologic Allergic/Immunologic ED: Denies mouth swelling, tongue swelling or urticaria EXAM Physical Exam Const Vital Signs: 07/18/25 23:45 07/18/25 23:45 07/18/25 23:45 Temperature 96.9 F L Temperature Source Temporal Pulse Rate 110 H 105 H Respiratory Rate 41 H 32 H Respiratory Effort Respiratory Depth Respiratory Pattern Tachypnea Blood Pressure 214/117 H Blood Pressure Mean 149 Pulse Ox 100 100 100 Oxygen Delivery Method Bi-pap Bi-pap Oxygen Flow Rate (L/min) Fraction of Inspired Oxygen (FIO2) 100 100 07/18/25 23:49 07/18/25 23:49 07/19/25 00:09 Temperature 96.9 F L Temperature Source Temporal Pulse Rate 101 H Respiratory Rate 25 H Respiratory Effort Short of Breath Accessory Muscle Use Respiratory Depth Deep Respiratory Pattern Tachypnea Tachypnea Blood Pressure 214/117 H Blood Pressure Mean 149 Pulse Ox 100 97 Oxygen Delivery Method Bi-pap Bi-pap Oxygen Flow Rate (L/min) Fraction of Inspired Oxygen (FIO2) 100 50 07/19/25 00:18 07/19/25 01:00 07/19/25 01:30 Temperature Temperature Source Pulse Rate 77 71 72 Respiratory Rate 26 H 24 H 18 Respiratory Effort Respiratory Depth Respiratory Pattern Blood Pressure 173/95 H 135/75 H 140/80 H Blood Pressure Mean 121 95 100 Pulse Ox 97 97 97 Oxygen Delivery Method Bi-pap Bi-pap Bi-pap Oxygen Flow Rate (L/min) 50 Fraction of Inspired Oxygen (FIO2) 50 35 07/19/25 01:38 07/19/25 02:00 07/19/25 02:30 Temperature 98 F Temperature Source Pulse Rate 69 69 65 Respiratory Rate 19 H 19 H 22 H Respiratory Effort Respiratory Depth Respiratory Pattern Blood Pressure 140/80 H 147/89 H 151/84 H Blood Pressure Mean 100 108 106 Pulse Ox 96 95 94 Oxygen Delivery Method Bi-pap Bi-pap Oxygen Flow Rate (L/min) Fraction of Inspired Oxygen (FIO2) 30 30 Positive well nourished and well developed Constitutional Narrative: Patient is in moderate respiratory distress with tachypnea and accessory muscle use General Appearance ED: well developed; Negative for pallor HEENT Reports moist mucous membranes HEENT Narrative: No tongue or lip swelling no oral lesions no airway edema or compromise; no secondary findings in the posterior pharynx to suggest infection Eyes PERRL and EOMs intact bilaterally General Eye ED: Negative for scleral icterus Neck supple and no JVD Chest Wall palpation of chest normal Resp Resp Narrative: Patient is in moderate respiratory distress with tachypnea and accessory muscle use Breath sounds are diminished throughout with crackles in the bilateral bases and faint expiratory wheeze in the upper lobes Cardio regular rhythm Rate: tachycardic and other Other Details: Tachycardic rate with regular rhythm Radial and carotid pulses are equal and symmetric GI normal to inspection, nondistended, normoactive bowel sounds, non-tender, non-distended and no masses GI Narrative: No voluntary guarding or rigidity or pulsatile mass No fluid wave noted Auscultation: normoactive bowel sounds Palpation: soft Extremity Extremity Narrative: Trace pitting edema of the bilateral lower extremities Negative Homans' sign bilaterally Neuro oriented x3, CN's II-XII intact bilaterally and no sensory deficits noted Sensorium / Orientation: alert Motor Exam: strength 5/5 throughout Psych mental status grossly normal Skin no rashes or lesions noted General Skin Exam: Negative for jaundice or pallor MDM MDM MDM Narrative Medical decision making narrative: Patient arrived to the ER in respiratory distress with tachypnea and accessory muscle use and he was hypoxic with pulse ox of 84%. With the patient showing moderate respiratory distress with work of breathing and hypoxia and lungs sounding more like volume overload than infectious process he was placed on BiPAP upon arrival. With this his pulse ox improved into the mid 90s and his work of breathing resolved. He also reported feeling much better. In order to assess for volume overload versus pneumonia or pneumothorax a chest x-ray was obtained. A viral swab was also ordered to assess for COVID versus influenza versus RSV as a potential cause of his symptoms. An EKG was ordered to assess for acute coronary syndrome versus cardiac dysrhythmia. Lab work was obtained to check for acute blood loss anemia versus PEPE or clinically significant electrolyte abnormality. The patient's white count is normal there is no left shift his procalcitonin is normal and therefore I do not feel this is an infectious process. The patient's proBNP is elevated at approximately 2400 and his x-ray shows pulmonary vascular congestion indicating this is CHF exacerbation. This would correlate with the fact his BiPAP is helping control symptoms and Lasix was also added for diuresis. EKG did not show STEMI or dysrhythmia or ischemic change. However troponin was obtained as he does have significant cardiac history and reported chest pain when he awoke. The troponin is greatly elevated at approximately 2000. Secondary to this the case was discussed with his counter intelligence technician Dr. Dawson. He recommends the patient be placed on a heparin drip secondary to his symptoms and elevated value. He states that there is no need for a nitro drip as the patient at this time is pain-free. He states he will evaluate the patient later today and decide upon need for heart catheterization. The patient was also given aspirin secondary to his report of chest discomfort and elevated troponin. He is already on antiplatelet/Plavix so I did not add a other dose of this especially as heparin is being given at this time. The hospitalist was then contacted and the case was discussed and he agrees to accept the patient for continued care. This plan of care was also communicated to the patient and his son who are agreeable to it History & Record Review Discussion w/independent historian: Patient and Family Lab Data Attestation: I reviewed the patient's lab results. Labs: Laboratory Results - last 24 hr 07/18/25 07/19/25 23:50 01:49 WBC 10.9 RBC 5.21 Hgb 14.9 Hct 44.9 MCV 86.2 MCH 28.6 MCHC 33.2 RDW Std Deviation 46.0 H RDW Coeff of Zoë 14.7 H Plt Count 140 L MPV 10.0 Immature Gran % (Auto) 0.600 Neut % (Auto) 68.7 Lymph % (Auto) 20.5 [place] % (Auto) 7.6 Eos % (Auto) 2.3 Baso % (Auto) 0.3 Absolute Neuts (auto) 7.5 Absolute Lymphs (auto) 2.23 Nucleated RBC % 0 PT 15.1 H INR 1.2 APTT 79.5 H Sodium 135 Potassium 4.0 Chloride 103 Carbon Dioxide 18.4 L Anion Gap 14 BUN 26 H Creatinine 1.17 Estim Creat Clear Calc 46.92 L Est GFR (MDRD) Non-Af 61 BUN/Creatinine Ratio 21.9 H Glucose 201 H Calcium 9.3 Magnesium 2.3 H Troponin T High Sens 1993 H* Troponin T Hi Sens 2 Hr 1948 H* NT pro BNP II 2378 H Procalcitonin 0.07 ABG Data ABG results: ABG 07/19/25 00:07 Specimen Type ART Sample Site R Radial pH 7.34 L Bicarbonate Actual 21.4 L Total CO2 23 Base Excess -4 L O2 Saturation 97 O2 % 60.0 ABG pCO2 39.5 ABG pO2 91 Jasbir Test Positive O2 Delivery Device BiPAP Vent Mode Not entered Clinical Comments 09/06 12 60% Radiography Diagnostic Testing: Clinical Impression(s) from Imaging Studies Chest X-Ray 07/19/25 00:20 IMPRESSION: As above. Reading Location: [facility] 1 view chest x-ray as interpreted by the emergency medicine reveals mild cardiomegaly with pulmonary vascular congestion without obvious infiltrate or pneumothorax Management Discussion w/another healthcare provider: Hospitalist and Tree Inspector Critical Care Time Critical Care Time: Yes Critical care time (excluding procedures): Discussing w/Patient &/or Family/Youth Career Specialist, Discussing w/Consultants, Arranging Admission or Transfer and - (Critical care time of 33) Discharge Plan Dx/Rx/DC Orders Clinical Impression: Non-ST elevated myocardial infarction (non-STEMI), CHF exacerbation, Acute respiratory failure with hypoxia, Essential (primary) hypertension, Hyperlipidemia, CAD (coronary artery disease) Disposition Disposition: Acute Care Hospital [facility] Discharge Date/Time: 07/19/25 02:58
[2025-07-19] MEDS: Heparin Injection (Vial) 5,000 UNIT/ML VIAL 4000 UNIT IV (01:52)
[2025-07-19] MEDS: HEPARIN/D5w 25,000 UNITS 25,000 UNITS/250 ML IV.SOLN. 10 UNITS CONT INF (01:56)
[2025-07-19 02:10] LABS: Prothrombin Time (Protime)PT. 15.1 SECONDS (11.7-14.9)
[2025-07-19 02:11] LABS: Partial Thromboplast Time 79.5 Seconds (24.1-36.2)
--- OUTSIDE RECORDS SUMMARY | 2025-07-19 02:11 | XMS RPT_ITS | CCD ---
Author Organization [facility] Inform ion [facility] Care Team Providers Care City Maintenance Manager Name Role Phone Tony, Harumi Y Unavailable Unavailable Teodora RN, Dede Ewing Unavailable Unavailaneesh Middleton RN, Saida A Unavailable Unavailable Britney Jimenez Unavailable Unavailable Emi BAKER, Saida A Unavailable Unavailable Mandeep Bernstein DO Unavailable SAMUEL Araiza, Dede Ewing Unavailable UnavailAnuradha Gaytan Unavailable Unavailable Britney Jimenez Unavailable Unavailable John Bernstein Primary Care Provider Robel Onofre Primary Care Provider Robel Onofre DO Primary Care Provider Dr. Robel Onofre Primary Care Provider Dr. Robel Onofre Referring Provider Roof MACHINE BENDER, MACHINE BENDER-C John Murphy Attending Provider Robel Onofre DO [...] Onofre DORobel L Primary Care Provider Foote HYDRAMATIC SPECIALIST.CT TECH, Cat Argentina Unavailable Cristóbal HYDRAMATIC SPECIALIST.CT TECH, Bessie Unavailable [place]e HYDRAMATIC SPECIALIST.CT TECH, Cat Elaine Unavailable Kingston OROZCO, Dr. Huston Primary Care Provider Maria Esther OROZCO, Dr. Jain Emergency Provider Elías HYDRAMATIC SPECIALIST.CT TECH, Una Duvall Unavailable Maria Esther OROZCO, Dr. Jain Attending Provider [place] OROZCO, Dr. Huston Referring Provider Samir CAMPA, [...] TABS One tablet by mouth daily ASPIRIN [id number] Saida Middleton RN Start: 04-17-2007 End: 07-03-2022 [...] TABS One tablet by mouth daily ATENOLOL [id number] Anuradha Hickey Comment on above: Take 1 tablet by triston th once daily. cholecalciferol 0.05 mg oral capsule (20 sources) Vitamin D Start: take 1 capsule by mouth once daily Cholecalciferol, Vitamin D3, (VITAMIN D-3) 50 mcg (2,000 unit) cap Indications: Vitamin D deficiency Take 1 capsule by mouth once daily. 90 capsule 3 11/24/2024 Active Start: 06-13-2022 take 1 capsule by [facility] once daily Cholecalciferol (Vitamin D3) (Vitamin D3) [...] Comment on above: Take 1 capsule by [facility] once daily. finasteride 5 mg oral tablet (20 sources) 5-alpha Reductase Inhibitor Start: 02-24-20 End: 10-08-19 take 1 tablet by mouth once daily Finasteride 5 mg tablet Active 5 mg PO DAILY February 23, 2018 12:00am prostate Comment on above: Take 1 tablet by [facility] daily. iv contrast (will be [...] TABS One tablet by mouth daily LISINOPRIL [id number] Florencio Ramires MD Start: 07-03-2015 take 1 tablet by triston th twice daily LISINOPRIL 10 MG TABS One tablet by mouth twice daily LISINOPRIL [id number] Saida Middleton RN Start: 01-03-2014 End: 07-03-2015 take 1 tablet by mouth once daily LISINOPRIL 20 MG TABS One tablet by mouth daily LISINOPRIL [id number] Florencio Ramires MD Comment on above: Take [...] 0.4 mg oral capsule (20 sources) alpha-Adrenergic Kenna Start: End: take 2 capsules by mouth [...] MG CAPS 1 tab daily TAMSULOSIN HCL [id number] Mirian Ortiz HYDRAMATIC SPECIALIST-CT TECH Start: 05-31-2014 End: 07-03-2015 take 1 tablet by mouth once daily TAMSULOSIN HCL 0.4 MG CAPS One tablet by mouth daily TAMSULOSIN HCL 39752866047 Florencio Ramires MD Comment on above: Take [...] 1 tablet by triston once daily. Vitamins A,C,X-Wecf-Grgdjf (Preservision Areds) 14,320-226-200 hupq-up-gmca capsule (1 source) Start: 2021 take 1 capsule by mouth twice daily Vitamins A,C,L-Evaz-Cbmczz (Preservision Areds) 14,320-226-200 rqkw-jk-czhq capsule Active 1 CAP PO TWICE A [...] as needed for up to 5 days. [id number] actuat albuterol 0.09 mg/actuat metered dose [...] daily. docusate sodium 50 mg / sennosides, [facility] 8.6 mg oral tablet (5 sources) Start: [...] TABS One tablet by mouth daily EZETIMIBE-SIMVASTATIN [id number] Florencio Ramires MD Start: 05-24-2013 take 1 tablet by triston th once daily VYTORIN 10-20 MG TABS One tablet by mout h daily EZETIMIBE-SIMVASTATIN 78887264238 Florencio Ramires MD Start: 05-24-2013 take 1 tablet by triston th once daily VYTORIN 10-20 MG TABS One tablet by mout h daily EZETIMIBE-SIMVASTATIN 48368517794 Florencio Ramires MD hydroCHLOROthiazide 12.5 mg oral [...] Two tablets by mouth twice daily IBUPROFEN [id number] Saida Middleton RN 24 hr isosorbide mononitrate [...] 1/2 tab twice a day ISOSORBIDE MONONITRATE [id number] Scot D Bernstein DO Start: 11-11-2011 take 1 tablet by triston th twice daily ISOSORBIDE MONONITRATE 10 MG TABS One half Tablet by mouth twice daily ISOSORBIDE MONONITRATE 80537876777 Florencio Ramires MD Comment on above: Take [...] one tab twice a day MULTIPLE VITAMINS-MINERALS [id number] Scot D Bernstein DO MULTIPLE VITAMINS-MINERALS (1 source) Start: 05-12-2018 PRESERVISION A REDS 2+MULTI VIT CAPS twice a day MULTIPLE VITAMINS-MINERALS [id number] Scot D Bernstein DO 24 hr nitroglycerin 0.1 mg/hr transdermal system (20 sources) Nitrate Vasodilator Start: 12-12-2010 End: 11-11-2011 NITRO-DUR 0.1 MG/HR PT24 Apply every morning & remove at night NITROGLYCERIN 05261923845 Reinaldo Diaz MD Start: 12-12-2010 NITROGLYCERIN 0.4 MG SUBL 1 tablet under the tongue every 5 minutes times 3 as needed for chest pain. NITROGLYCERIN [id number] Jennifer Tomlin RN Start: 12-12-2010 End: 11-11-2011 NITRO-DUR 0.1 MG/HR PT24 Tammi ly every morning & remove at night NITROGLYCERIN 06191292754 Reinaldo Diaz MD Start: 12-12-2010 NITRO-DUR 0.1 MG/HR PT24 Apply every morning & remove at night NITROGLYCERIN [id number] Anuradha Hickey HUJPX-2-PFIZ ETHYL ESTERS (20 sources) Start: 12-02-2011 take 2 capsules by mouth twice daily LOVAZA 1 GM CAPS Two capsules by mouth twice daily MGKDL-0-TXNS ETHYL ESTERS [id number] Jennifer Tomlin RN Start: 12-02-2011 End: 11-11-2012 take 2 capsules by mouth twice daily LOVAZA 1 GM CAPS Two capsules by mouth twice daily JNTET-9-SAVE ETHYL ESTERS [id number] Reinaldo Diaz MD Start: 12-02-2011 End: 11-11-2012 take 2 capsules by mouth twice daily LOVAZA 1 GM CAPS Two capsules by mouth twice daily BATLF-3-FLLI ETHYL ESTERS 70028245317 Jennifer Tomlin RN Start: 12-02-2011 take 2 capsules by m [facility] twice daily LOVAZA 1 GM CAPS Two capsules by mouth twice daily LMCUC-9-GNVP ETHYL ESTERS [id number] Jennifer Tomlin RN Start: 12-02-2011 End: 11-11-2012 take 2 capsules by mouth twice daily LOVAZA 1 GM CAPS Two capsules by mouth twice daily ZQEBZ-4-VWLZ ETHYL ESTERS 55795160221 Reinaldo Diaz MD Start: 12-12-2010 take 1 tablet by triston th twice daily LOVAZA 1 GM CAPS One tablet by mouth twice daily EIVXS-5-OXGZ ETHYL ESTERS 72309661294 Anuradha Hickey Start: 12-12-2010 take 1 tablet by triston twice daily LOVAZA 1 GM CAPS One tablet by mouth twice daily OSBUM-0-IKYO ETHYL ESTERS [id number] Anuradha Hickey Start: 12-12-2010 take 1 tablet by triston twice daily LOVAZA 1 GM CAPS One tablet by mouth twice daily KZCFL-9-ZNRK ETHYL ESTERS 94932118631 Anuradha Hickey omeprazole 20 mg delayed release oral capsule (20 sources) Proton Pump Inhibitor Start: 04-03-2017 OMEPRAZO LE 20 MG TBEC one tab a day OMEPRAZOLE [id number] Mandeep Bernstein DO Start: 12-12-2010 End: 12-27-2024 take 1 capsule by mouth once daily Omeprazole 20 MG capsule Discontinued 20 mg PO DAILY November 12, 2017 12:00am April 14, 2020 9:00am ACID TRIM DIE MAKER Comment on above: Take 20 mg by [...] tablet by mouth at bedtime. PRAVASTATIN SODIUM [id number] Florencio Ramires MD ramipril 10 mg oral tablet (20 sources) Angiotensin Converting Enzyme Inhibitor Start: 11-12-19 13 End: 01-04-20 14 take 1 tablet by mouth twice daily ALTACE 10 MG CAPS One tablet by mouth twice daily RAMIPRIL [id number] Reinaldo Diaz MD Start: 11-11-2012 End: 01-03-2014 take 1 tablet by mouth twice daily ALTACE 10 MG CAPS One tablet by mouth twice daily RAMIPRIL 61264322510 Reinaldo Diaz MD Start: 05-25-2012 take 1 tablet by triston th twice daily ALTACE 5 MG CAPS One tablet by mouth twice daily RAMIPRIL [id number] Reinaldo Diaz MD Start: 11-11-2011 take 1 tablet by triston th twice daily ALTACE 5 MG CAPS One tablet by mouth twice daily RAMIPRIL [id number] Reinaldo Diaz MD Start: 12-12-2010 take 1 tablet by triston th twice daily ALTACE 2.5 MG CAPS One tablet by mouth twice daily RAMIPRIL [id number] Anuradha Hickey Start: 12-12-2010 take 1 tablet by triston th twice daily ALTACE 2.5 MG CAPS One tablet by mouth twice daily RAMIPRIL [id number] Anuradha Hickey rosuvastatin calcium 10 mg oral tablet (8 sources) HMG-CoA Reductase Inhibitor Start: 05-28-2013 take 1 tablet by mouth at bedtime CRESTOR 10 MG TABS One tablet by mouth at bedtime. ROSUVASTATIN CALCIUM 74468854478 Florencio Ramires MD simvastatin 20 mg oral [...] MG TABS 1/2 tab at bedtime SIMVASTATIN [id number] Scot Bekah Bernstein DO Start: 06-04-2013 End: [...] on above: Take 2 tablets by mo [facility] twice daily. Vitamins A,C,M-Nftq-Ezhmpv (3 sources) Start: 11-12-2017 End: 04-14-2020 take 1 capsule by mouth twice daily Vitamins A,C,G-Ogid-Ekwloo Discontinued 1 CAP PO TWICE A DAY November 12, 2017 10:06am April 14, 2020 9:00am Start: 11-12-2017 End: 04-14-2020 take 1 capsule by mouth twice daily Vitamins A,C,Z-Ddvr-Jtdkcp Discontinued 1 CAP PO TWICE A DAY November 12, 2017 12:00am April 14, 2020 9:00am Vitamins A,C,S-Nror-Xwleuh 1 EACH capsule (2 sources) Start: 11-12-2017 End: 04-14-2020 take 1 capsule by mouth twice daily Vitamins A,C,N-Xmet-Aqglgx 1 EACH capsule Discontinued 1 NMA PO TWICE A DAY November 12, 2017 12:00am April 14, 2020 9:00am [facility] Start: 11-12-2017 End: 04-14-2020 take 1 capsule by mouth twice daily Vitamins A,C,X-Cqwa-Dqezjl 1 EACH capsule Discontinued 1 NMA PO [...] within filter wire. 10/28/2019 per DJN @ [facility] Coronary atherosclerosis and other heart disease [...] (3 sources) Long-term drug therapy; Translations: [Other care home (current) drug therapy] Onset: 1 12-12-2010 Unclassified [...] within filter wire. 10/28/2019 per DJN @ [facility] Deficiency and other anemia (20 sources) [...] 04-03-2017 Episodic Other aftercare (5 sources) Other terminal operations manager (current) drug therapy; Translations: [Other care home (current) drug therapy] Onset: 1 12-12-2010 Episodic [...] 06-27-2025 CNTHERAPY OT/PT/Speech Visit (LDSP) TODD MATAMOROS ([id number]) 1940 M Date Time Provider Department 06/27/25 1:00 PM SALLY STEELE LDSP Date Time Provider Department Center 06/27/2025 1:00 PM [id number]-IUTYOBKSALLY STEELE [facility] Reason for Visit: Speech Evaluation [5047] Visit Diagnosis:Oral phase dysphagia [R13.11] Allergies As of Date: 06/27/2025 (No Known Allergies) Date Reviewed: 12/14/2024 Reviewed by: Asha Hernandez, GIA.CT TECH - Fully Assessed Prescriptions as of 06/27/2025 [...] Apply sparingly to area for rash/itching. Normal [facility] Rosanna 06-25-2025 LEON Telephone (FAMPWS) TODD MATAMOROS ([id number]) 1940 M Date Time Provider Department 06/25/25 ROBEL ONOFREPWS During your visit today, we recorded the following information about you: Robel Onofre DO 06/25/2025 7:58 AM Signed Please fax Speech therapy referral to [facility]. This was ordered yesterday DO Jason Hernandez Linda M, LPN 06/25/2025 9:07 AM Signed Order faxed to [facility] as requested. Allergies As of Date: 06/25/2025 (No Known Allergies) Date Reviewed: 12/14/2024 Reviewed by: Asha Hernandez, HYDRAMATIC SPECIALIST.CT TECH - Fully Assessed Prescriptions as of 06/25/2025 [...] Status:Closed by HEIDI ABDI on 06/25/25 Normal [facility] 25(OH)[facility] 25-hydroxyvitamin D3 [Mass/Vol] 46.4 ng/mL Normal 31.0-80.0 [facility] Comment on above: Order Comment: Christian modi Type: BLOOD SPECIMENOrdering Facility: [facility] Address: [address] [place] [address] Result Comment: Clas sification of 25 OH Vitamin D status: Deficiency/Insufficiency: < or = 30 ng/ml. Sufficiency/Optimal Levels: 31-80 ng/mL Toxicity: > 100 ng/mL. Test performed by chemiluminescent immunoassay. Performed By: #### 1 989-3 ####[facility]CL[facility] [id number] [place] [address] [place] CBC W Auto Differential pane l (Bld)on 06-24-2025 Basophils (Bld) [#/Vol] 0.04 10*3/uL Normal <0.11 [facility] Comment on above: Order Comment: Christian modi Type: BLOOD SPECIMENOrdering Facility: [facility] Address: [address] [place] [address] Performed By: #### 5 7021-8 ####[facility]CLIA [id number] [place] [address] [place] Basophils/100 WBC (Bld) 0.6 % Normal C [facility] Comment on above: Order Comment: Christian modi Type: BLOOD SPECIMENOrdering Facility: [facility] Address: [address] [place] [address] Performed By: #### 5 7021-8 ####[facility]CLIA [id number] [place] [address] [place] Differential cell count method Nom (Bld) Auto Normal [facility] Comment on above: Order Comment: Speci men Type: BLOOD SPECIMENOrdering Facility: [facility] Address: [address] [place] [address] Performed By: #### 5 7021-8 ####[facility]CL[facility] [id number] [place] [address] [place] Eosinophils (Bld) [#/Vol] 0.33 10*3/uL Normal <0.46 [facility] Comment on above: Order Comment: Speci men Type: BLOOD SPECIMENOrdering Facility: [facility] Address: [address] [place] [address] Performed By: #### 5 7021-8 ####[facility] [id number] [address] [place] Eosinophils/100 WBC (Bld) 4.7 % Normal [facility] Comment on above: Order Comment: Speci men Type: BLOOD SPECIMENOrdering Facility: [facility] Address: [address] [place] [address] Performed By: #### 5 7021-8 ####[facility]CLIA [id number] [address] [place] Erythrocyte distribution width (RBC) [Ratio] 14.6 % Normal 11.5-15.0 [facility] Comment on above: Order Comment: Speci men Type: BLOOD SPECIMENOrdering Facility: [facility] Address: [address] [place] [address] Performed By: #### 5 7021-8 ####[facility]CL[facility] [id number] [address] [place] Hematocrit (Bld) [Volume fraction] 42.5 % Normal 39.0-51.0 [facility] Comment on above: Order Comment: Speci men Type: BLOOD SPECIMENOrdering Facility: [facility] Address: [address] [place] [address] Performed By: #### 5 7021-8 ####[facility]CL[facility] [id number] [place] [address] [place] Hemoglobin (Bld) [Mass/Vol] 14.4 g/dL Normal 13.0-17.0 [facility] Comment on above: Order Comment: Speci men Type: BLOOD SPECIMENOrdering Facility: [facility] Address: [address] [place] [address] Performed By: #### 5 7021-8 ####[facility]CL[facility] [id number] [place] [address] [place] Immature granulocytes (Bld) [#/Vol] 10*3/uL Normal <0.10 [facility] Comment on above: Order Comment: Speci men Type: BLOOD SPECIMENOrdering Facility: [facility] Address: [address] [place] [address] Performed By: #### 5 7021-8 ####[facility]CLIA [id number] [place] [address] [place] Immature granulocytes/100 WBC (Bld) 0.3 % Normal [facility] Comment on above: Order Comment: Speci men Type: BLOOD SPECIMENOrdering Facility: [facility] Address: [address] [place] [address] Performed By: #### 5 7021-8 ####[facility]CLIA [id number] [place] [address] [place] Lymphocytes (Bld) [#/Vol] 1.44 10*3/uL Normal 1.00-4.00 [facility] Comment on above: Order Comment: Speci men Type: BLOOD SPECIMENOrdering Facility: [facility] Address: [address] [place] [address] Performed By: #### 5 7021-8 ####[facility]CLIA [id number] [place] [address] [place] Lymphocytes/100 WBC (Bld) 20.3 % Normal [facility] Comment on above: Order Comment: Speci men Type: BLOOD SPECIMENOrdering Facility: [facility] Address: [address] [place] [address] Performed By: #### 5 7021-8 ####[facility]CLIA [id number] [place] [address] [place] MCH (RBC) [Entitic mass] 30.1 pg Normal 26.0-34.0 [facility] Comment on above: Order Comment: Speci men Type: BLOOD SPECIMENOrdering Facility: [facility] Address: [address] [place] [address] Performed By: #### 5 7021-8 ####[facility]CLIA [id number] [place] [address] [place] MCHC (RBC) [Mass/Vol] 33.9 g/dL Normal 30.5-36.0 [facility] Comment on above: Order Comment: Speci men Type: BLOOD SPECIMENOrdering Facility: [facility] Address: [address] [place] [address] Performed By: #### 5 7021-8 ####[facility]CLIA [id number] [place] [address] [place] MCV (RBC) [Entitic vol] 88.7 fL Normal 80.0-100.0 C [facility] Comment on above: Order Comment: Speci men Type: BLOOD SPECIMENOrdering Facility: [facility] Address: [address] [place] [address] Performed By: #### 5 7021-8 ####[facility]CLIA [id number] [place] [address] [place] Monocytes (Bld) [#/Vol] 0.77 10*3/uL Normal <0.87 [facility] Comment on above: Order Comment: Speci men Type: BLOOD SPECIMENOrdering Facility: [facility] Address: [address] [place] [address] Performed By: #### 5 7021-8 ####[facility]CLIA [id number] [place] [address] [place] Monocytes/100 WBC (Bld) 10.9 % Normal C [facility] Comment on above: Order Comment: Speci men Type: BLOOD SPECIMENOrdering Facility: [facility] Address: [address] [place] [address] Performed By: #### 5 7021-8 ####[facility]CLIA [id number] [place] [address] [place] Neutrophils (Bld) [#/Vol] 4.48 10*3/uL Normal 1.45-7.50 [facility] Comment on above: Order Comment: Speci men Type: BLOOD SPECIMENOrdering Facility: [facility] Address: [address] [place] [address] Performed By: #### 5 7021-8 ####[facility] [id number] [place] [address] [place] Neutrophils/100 WBC (Bld) 63.2 % Normal [facility] Comment on above: Order Comment: Speci men Type: BLOOD SPECIMENOrdering Facility: [facility] Address: [address] [place] [address] Performed By: #### 5 7021-8 ####[facility]CLIA [id number] [place] [address] [place] Nucleated RBC (Bld) [#/Vol] 10*3/uL Normal <0.01 [facility] Comment on above: Order Comment: Speci men Type: BLOOD SPECIMENOrdering Facility: [facility] Address: [address] [place] [address] Performed By: #### 5 7021-8 ####[facility]CLIA [id number] [place] [address] [place] Nucleated RBC/100 WBC (Bld) [Ratio] 0.0 /100 WBC Normal [facility] Comment on above: Order Comment: Speci men Type: BLOOD SPECIMENOrdering Facility: [facility] Address: [address] [place] [address] Performed By: #### 5 7021-8 ####[facility]CLIA [id number] [place] [address] [place] Platelet mean volume (Bld) [Entitic vol] 9.9 fL Normal 9.0-12.7 [facility] Comment on above: Order Comment: Speci men Type: BLOOD SPECIMENOrdering Facility: [facility] Address: [address] [place] [address] Performed By: #### 5 7021-8 ####[facility]CLIA [id number] [place] [address] [place] Platelets (Bld) [#/Vol] 134 10*3/uL Low 150-400 [facility] Comment on above: Order Comment: Speci men Type: BLOOD SPECIMENOrdering Facility: [facility] Address: [address] [place] [address] Performed By: #### 5 7021-8 ####[facility]CLIA [id number] [place] [address] [place] RBC (Bld) [#/Vol] 4.79 10*6/uL Normal 4.20-6.00 [facility] Comment on above: Order Comment: Speci men Type: BLOOD SPECIMENOrdering Facility: [facility] Address: [address] [place] [address] Performed By: #### 5 7021-8 ####[facility]CLIA [id number] [place] [address] [place] WBC (Bld) [#/Vol] 7.08 10*3/uL Normal 3.70-11.00 [facility] Comment on above: Order Comment: Speci men Type: BLOOD SPECIMENOrdering Facility: [facility] Address: [address] [place] [address] Performed By: #### 5 7021-8 ####[facility]CLIA [id number] [place] [address] [place] CNOVon 06-24-2025 CNOV Office Visit (FAMPWS ) TODD MATAMOROS ([id number]) 1940 M Date Time Provider Department 06/24/25 10:00 AM [facility] visit today, we recorded [...] taking medications as prescribed. Continues to see Travel Consultant for followup Iron deficiency, eating iron rich [...] Macular degeneration NSTEMI (non-ST elevated myocardial infarction) ([facility]) 10/28/2019 Osteoarthritis of left hip Paresthesia PMH [...] 07/28/2007 DIR RPR ANEURYSM ABDOMINAL AORTA 04/20/2011 [facility] EYLEA (AFLIBERCEPT) 2MG INTRAVITREAL INJECTION OD [...] Age of Onset Heart Mother age 60 NC, smoker None Father age 77 MVA Cataract [...] (PROSCAR) 5 (more content not included)... Normal [facility] Comprehensive metabolic 2000 panelon 06-24-2025 Albumin [Mass/Vol] 4.3 g/dL Normal 3.9-4.9 [facility] Comment on above: Order Comment: Speci men Type: BLOOD SPECIMENOrdering Facility: [facility] Address: [address] [place] [address] Performed By: #### L IPNF, 77128-0, 3024-7, 3016-3 ####[facility]CLIA [id number] [place] [address] [place] ALP [Catalytic activity/Vol] 116 U/L High 38-113 [facility] Comment on above: Order Comment: Speci men Type: BLOOD SPECIMENOrdering Facility: [facility] Address: [address] [place] [address] Performed By: #### L IPNF, 08700-8, 3024-7, 3016-3 ####[facility]CLIA [id number] [place] [address] [place] ALT [Catalytic activity/Vol] 11 U/L Normal 10-54 [facility] Comment on above: Order Comment: Speci men Type: BLOOD SPECIMENOrdering Facility: [facility] Address: [address] [place] [address] Performed By: #### L IPNF, 81038-8, 3024-7, 3016-3 ####[facility]CLIA [id number] [place] [address] [place] Anion gap [Moles/Vol] 9 mmol/L Normal 8-15 [facility] Comment on above: Order Comment: Speci men Type: BLOOD SPECIMENOrdering Facility: [facility] Address: [address] [place] [address] Performed By: #### L IPNF, 59792-7, 4-7, 3016-3 ####[facility]CLIA [id number] [place] [address] [place] AST [Catalytic activity/Vol] 15 U/L Normal 14-40 [facility] Comment on above: Order Comment: Speci men Type: BLOOD SPECIMENOrdering Facility: [facility] Address: [address] [place] [address] Performed By: #### L IPNF, 81962-3, 3023-7, 6-3 ####[facility] LABCLIA [id number] [place] [address] [place] Bilirubin [Mass/Vol] 0.5 mg/dL Normal 0.2-1.3 [facility] Comment on above: Order Comment: Speci men Type: BLOOD SPECIMENOrdering Facility: [facility] Address: [address] [place] [address] Performed By: #### L IPNF, 36672-6, 3023-7, 3016-3 ####[facility] LABCLIA [id number] [place] [address] [place] Calcium [Mass/Vol] 9.4 mg/dL Normal 8.5-10.2 [facility] Comment on above: Order Comment: Speci men Type: BLOOD SPECIMENOrdering Facility: [facility] Address: [address] [place] [address] Performed By: #### L IPNF, 60881-9, 4-7, 3016-3 ####[facility] LABCLIA [id number] [place] [address] [place] Chloride [Moles/Vol] 106 mmol/L Normal 98-107 [facility] Comment on above: Order Comment: Speci men Type: BLOOD SPECIMENOrdering Facility: [facility] Address: [address] [place] [address] Performed By: #### L IPNF, 02874-1, 3024-7, 3016-3 ####[facility] LABCLIA [id number] [place] [address] [place] CO2 [Moles/Vol] 24 mmol/L Normal 22-30 [facility] Comment on above: Order Comment: Speci men Type: BLOOD SPECIMENOrdering Facility: [facility] Address: [address] [place] [address] Performed By: #### L IPNF, 51443-3, 3024-7, 3016-3 ####[facility] LABCLIA [id number] [place] [address] [place] Creatinine [Mass/Vol] 1.25 mg/dL High 0.73-1.22 [facility] Comment on above: Order Comment: Speci men Type: BLOOD SPECIMENOrdering Facility: [facility] Address: [address] [place] [address] Performed By: #### L IPNF, 06232-9, 3024-7, 3016-3 ####[facility] LABCLIA [id number] [place] [address] [place] eGFRcr SerPlBld CKD-EPI 2020 56 mL/min/1.73m??? Low >=60 [facility] Comment on above: Order Comment: Speci men Type: BLOOD SPECIMENOrdering Facility: [facility] Address: [address] [place] [address] Result Comment: Shannan mated Glomerular Filtration Rate [...] actual GFR. Performed By: #### L IPNF, 51229-6, 3023-7, 6-3 ####[facility] LABCLIA [id number] [place] [id number] [place] Glucose [Mass/Vol] 99 mg/dL Normal 74-99 [facility] Comment on above: Order Comment: Speci men Type: BLOOD SPECIMENOrdering Facility: [facility] Address: [address] [place] [address] Result Comment: The [place] Diabetes Association (ADA) provides guidance for cutoff [...] Standards of Medical Care in Diabetes 2016, [place] Diabetes Association. Diabetes Care. 2016.39(Suppl 1). Performed By: #### L IPNF, 27524-2, 7, 3 ####[facility] LABCLIA [id number] [place] [id number] [place] Potassium [Moles/Vol] 4.6 mmol/L Normal 3.7-5.1 [facility] Comment on above: Order Comment: Speci men Type: BLOOD SPECIMENOrdering Facility: [facility] Address: [address] [place] [id number] Performed By: #### L IPNF, 42856-2, 3023-7, 3015-3 ####[facility] LABCLIA [id number] [place] [id number] [place] Protein [Mass/Vol] 7.0 g/dL Normal 6.3-8.0 [facility] Comment on above: Order Comment: Speci men Type: BLOOD SPECIMENOrdering Facility: [facility] Address: [address] [place] [address] Performed By: #### L IPNF, 74683-8, 3024-7, 3016-3 ####[facility] LABCLIA [id number] [place] [id number] [place] Sodium [Moles/Vol] 139 mmol/L Normal 136-144 [facility] Comment on above: Order Comment: Speci men Type: BLOOD SPECIMENOrdering Facility: [facility] Address: [address] [place] [address] Performed By: #### L IPNF, 65585-1, 4-7, 6-3 ####[facility] LABCLIA [id number] [place] [address] [place] Urea nitrogen [Mass/Vol] 21 mg/dL Normal 9-24 [facility] Comment on above: Order Comment: Speci men Type: BLOOD SPECIMENOrdering Facility: [facility] Address: [address] [place] [address] Performed By: #### L IPNF, 11452-3, 4-7, 6-3 ####[facility] LABCLIA [id number] [place] [address] [place] HbA1c (Bld)on 06-24-2025 Average glucose Estimated from glycated hemoglobin (Bld) [Mass/Vol] 103 mg/dL Normal [facility] Comment on above: Order Comment: Speci men Type: BLOOD SPECIMENOrdering Facility: [facility] Address: [address] [place] [address] Result Comment: eAG: (Estimated average glucose) is a calculated value from HgbA1c and is auto service representative of the average blood glucose level in the last 2-3 month period. Performed By: #### 5 5454-3 ####[facility] LABCLIA [id number] [place] [address] [place] HbA1c (Bld) [Mass fraction] 5.2 % Normal 4.3-5.6 [facility] Comment on above: Order Comment: Speci men Type: BLOOD SPECIMENOrdering Facility: [facility] Address: [address] [place] [address] Result Comment: Amer ican Diabetes Association guidelines indicate that patients with HgbA1c in the range 5.7-6.4% are at increased risk for development of diabetes, and intervention by lifestyle modification may be beneficial. HgbA1c greater or equal to 6.5% is considered diagnostic of diabetes. Performed By: #### 5 5454-3 ####[facility] LABCLIA [id number] [address] OF [place] LIPID PANEL, NONFASTINGon Cholesterol [Mass/Vol] 115 mg/dL Normal <200 [facility] Comment on above: Order Comment: Christian modi Type: BLOOD SPECIMENOrdering Facility: [facility] Address: [address] [place] [address] Result Comment: <200 mg/dL, Desirable 200-239 mg/dL, Borderline high >239 mg/dL, High Performed By: #### L IPNF, 29562-0, 3024-7, 3016-3 ####[facility] LABCLIA [id number] [address] [place] HDL CHOLESTEROL, NF 32 mg/dL Low >39 [facility] Comment on above: Order Comment: Christian modi Type: BLOOD SPECIMENOrdering Facility: [facility] Address: [address] [place] [address] Result Comment: 40-5 9 mg/dL, Acceptable >59 mg/dL, High: Negative risk factor for coronary heart disease <40 mg/dL, Low: Positive risk factor for coronary heart disease Performed By: #### L IPNF, 23399-8, 3024-7, 3016-3 ####[facility] LABCLIA [id number] [place] [address] [place] LDL CHOLESTEROL CALCULATED, NF 43 mg/dL Normal <100 [facility] Comment on above: Order Comment: Emiraudel modi Type: BLOOD SPECIMENOrdering Facility: [facility] Address: [address] [place] [address] Result Comment: <100 mg/dL, Optimal 100-129 mg/dL, Near optimal/above optimal 130-159 mg/dL, Borderline high 160-189 mg/dL, High >189 mg/dL, Very high Secondary prevention optimal LDL Cholesterol levels are recommended to be <70 mg/dL LDL cholesterol is calculated using the Polo-NIH equation. Performed By: #### L IPTITO, 59906-2, 3023-7, 3015-3 ####[facility] LABCLIA [id number] [address] OF [facility] LDL/HDL RATIO, NF 1.34 mg/dL Normal <2.54 [facility] Comment on above: Order Comment: Christian modi Type: BLOOD SPECIMENOrdering Facility: [facility] Address: [address] [place] [address] Result Comment: Refe rence: 1. National Cholesterol Education Program ATP III Guideline At-A-Glance Quick Desk Reference: National Heart, Lung, and Blood Marble. National Institutes of Health. 2001: NIH Publication No. 01-3305. 2. An International Atherosclerosis Society position paper: global recommendations for the management of dyslipidemia: executive summary, Atherosclerosis. 2014: 232(2):410-413. Performed By: #### L KEITH, 50188-4, 3024-02, 3 ####[facility] LABCLIA [id number] [address] OF [facility] NON HDL CHOL, NF 83 mg/dL Normal <130 [facility] Comment on above: Order Comment: Christian modi Type: BLOOD SPECIMENOrdering Facility: [facility] Address: [address] [place] [address] Result Comment: <130 mg/dL, Optimal 130-159 mg/dL, Near optimal/above optimal 160-189 mg/dL, Borderline high 190-219 mg/dL, High >219 mg/dL, Very high Secondary prevention optimal non HDL Cholesterol levels are recommended to be <100 mg/dL Performed By: #### L IPNF, 66826-6, 3023-7, 3015-3 ####[facility] LABCLIA [id number] [place] [address] [place] T CHOL/HDL RATIO NF 3.59 mg/dL Normal <5.10 [facility] Comment on above: Order Comment: Speci men Type: BLOOD SPECIMENOrdering Facility: [facility] Address: [address] [place] [address] Performed By: #### L IPNF, 44231-1, 3024-7, 3016-3 ####[facility] LABCLIA [id number] [place] [address] [place] TRIGLYCERIDES, NF 257 mg/dL High <150 [facility] Comment on above: Order Comment: Speci men Type: BLOOD SPECIMENOrdering Facility: [facility] Address: [address] [place] [address] Result Comment: <150 mg/dL, Normal 150-199 mg/dL, Borderline high 200-499 mg/dL, High >499 mg/dL, Very high Performed By: #### L IPNF, 34775-7, 3023-7, 6-3 ####[facility] LABCLIA [id number] [place] [address] [place] VLDL CHOLESTEROL, NF 35 mg/dL High <30 [facility] Comment on above: Order Comment: Speci men Type: BLOOD SPECIMENOrdering Facility: [facility] Address: [address] [place] [address] Performed By: #### L IPNF, 44732-5, 3023-7, 6-3 ####[facility] LABCLIA [id number] [place] [address] [place] T4 Free SerPl-mCncon -31-2 025 Free T4 [Mass/Vol] 1.2 ng/dL Normal 0.9-1.7 [facility] Comment on above: Order Comment: Speci men Type: BLOOD SPECIMENOrdering Facility: [facility] Address: [address] [place] [address] Performed By: #### L IPNF, 41600-9, 302-7, 3016-3 ####[facility] LABCLIA [id number] [place] [id number] [place] TSH SerPl-aCncon 06-24-2025 TSH Qn 2.480 m[IU]/L Normal 0.270-4.200 [facility] Comment on above: Order Comment: Speci men Type: BLOOD SPECIMENOrdering Facility: [facility] Address: [address] [place] [address] Performed By: #### L IP, 67563-6, 3024-7, 3016-3 ####[facility] LABCLIA [id number] [place] [address] [place] Vit B12 SerPl-mCncon 025 Cobalamin (Vitamin B12) [Mass/Vol] 798 pg/mL Normal 232-1245 [facility] Comment on above: Order Comment: Speci men Type: BLOOD SPECIMENOrdering Facility: [facility] Address: [address] [place] [address] Performed By: #### 2 132-9 ####[facility] LABCLIA [id number] [place] [address] [place] XR CHEST 2V [...] Stable exam with no acute radiographic abnormality. External Grinder: TOM Transcribe Date/Time: Jun 26 2025 6:21P Dictated by : FIDEL GAO MD This examination was interpreted and the report reviewed and electronically signed by: FIDEL GAO MD on Jun 26 2025 6:22PM EST [id number] Normal [facility] Cardiology Visit Reporton Cardiology Visit Report [facility] [address] [place] [address] OFFICE VISIT Date of Service: 03/22/25 MR#: [id number] Acct: [id number] Name: TODD MATAMOROS Rep #: [id number] : 1940 Provider: Dr. Jamal Dawson MD Age/Sex: 84/M [place] [facility] Status: Signed HPI HPI History of Present [...] Monitor Intake Visit Reasons: 1 Y FU [employer] Application Developer Required: No Accompanied by: Daughter Is patient [...] angina pectoris Dyspnea on exertion Atherosclerosis of [place] coronary artery of [place] heart without angina pectoris Lupus anticoagulant disorder [...] Negative fo (more content not included)... [facility] 12-27-2024 [facility] Office Visit (FAMPWS ) TODD MATAMOROS ([id number]) 1940 M Date Time Provider Department 12/27/24 [...] Asha Hernandez CNP and then sent to [facility] EMERGENCY DEPARTMENT for further assessment with [...] taking medications as prescribed. Continues to see Travel Consultant for followup Iron deficiency, eating iron rich [...] Macular degeneration NSTEMI (non-ST elevated myocardial infarction) ([facility]) 10/28/2019 Osteoarthritis of left hip Paresthesia PMH [...] 07/28/2007 DIR RPR ANEURYSM ABDOMINAL AORTA 04/20/2011 [place] EYLEA (AFLIBERCEPT) 2MG INTRAVITREAL INJECTION OD [...] Vaping st (more content not included)... Normal [facility] Rosanna 12-20-2024 [facility] Telephone (FAMPWS) TODD MATAMOROS ([id number]) 1940 M Date Time Provider Department 12/20/24 ROBEL ONOFRE During your visit today, we recorded the following information about you: Gildardo Franklin RN 12/20/2024 9:05 AM Signed Daughter, Zulema, reports pt saw Asha on 12/14/24 for vertigo. Asha sent pt to [facility] ER that day and ER prescribed [...] Date Reviewed: 12/14/2024 Reviewed by: Asha Hernandez, HYDRAMATIC SPECIALIST.CT TECH - Fully Assessed Reason for Visit: Patient Question [7557] Order(s):meclizine (ANTIVERT) 12.5 mg tabTake 1 tablet [...] Status:Closed by [place] on 12/21/24 Normal [facility] Absolute lymphocyte countOrd ered By: Cristobal Mayo on 12-14-2024 Lymphocytes Auto (Unsp spec) [#/Vol] 1.05 10*3/uL 0.83-4.51 [facility] Absolute neutrophil countOrd ered By: Cristobal Mayo on 12-14-2024 Neutrophils (Bld) [#/Vol] 4.8 10*3/uL 2.0-7.7 [facility] Activated partial thrombopla stin time (aPTT) in platelet poor plasma by coagulation aOrdered By: Cristobal Mayo on 12-14-2024 aPTT Coag (PPP) [Time] 82.8 s High 24.1-36.2 [facility] Anion gap in Serum or Plasma Ordered By: Cristobal Mayo on 12-14-2024 Anion gap [Moles/Vol] 10 mmol/L 5-15 [facility] Automated lymphocyte count a s percentage of total leukocytesOrdered By: Cristobal Mayo on 12-14-2024 Lymphocytes/100 WBC Auto (Unsp spec) 15.9 % Low - [facility] BUN/creatinine ratioOrdered By: Cristobal Mayo on 12-14-2024 Urea nitrogen/Creatinine [Mass ratio] 16.9 mg/mg - [facility] Basic Metabolic Profile (BMP )on 12-14-2024 BUN/CRE 16.9 RATIO Normal - [facility] Comment on above: Performed By: #### L 100.0100, L500.2500, L300.4310, L300.3900 #### [facility] [address] [place], [address] Calcium [Mass/Vol] 9.6 mg/dL Normal 7.6-11.0 [facility] Comment on above: Performed By: #### L 100.0100, L500.2500, L300.4310, L300.3900 #### [facility] [address] [place], [address] Chloride [Moles/Vol] 106 mmol/L Normal 98-108 [facility] Comment on above: Performed By: #### L 100.0100, L500.2500, L300.4310, L300.3900 #### [facility] [address] [place], [address] CO2 [Moles/Vol] 21.1 mmol/L Normal 21.0-32.0 [facility] Comment on above: Performed By: #### L 100.0100, L500.2500, L300.4310, L300.3900 #### [facility] [address] [place], [address] Creatinine [Mass/Vol] 1.01 mg/dL Normal 0.70-1.20 [facility] Comment on above: Performed By: #### L 100.0100, L500.2500, L300.4310, L300.3900 #### [facility] [address] [place], [address] GAP 10 Normal 5-15 [facility] Comment on above: Performed By: #### L 100.0100, L500.2500, L300.4310, L300.3900 #### [facility] [address] [place], [address] GFR/1.73 sq M.predicted among non-blacks MDRD (S/P/Bld) [Vol rate/Area] 73 mL/min/{1.73_m2} Normal >60 [facility] Comment on above: Result Comment: mL/m in/1.73m2 CKD-EPI Creatinine Equation (2020) Performed By: #### L 100.0100, L500.2500, L300.4310, L300.3900 #### [facility] [address] [place], [address] Glucose [Mass/Vol] 112 mg/dL High 70-99 [facility] Comment on above: Performed By: #### L 100.0100, L500.2500, L300.4310, L300.3900 #### [facility] [address] [place], [address] Potassium [Moles/Vol] 4.0 mmol/L Normal 3.3-5.1 [facility] Comment on above: Performed By: #### L 100.0100, L500.2500, L300.4310, L300.3900 #### [facility] [address] [place], [address] Sodium [Moles/Vol] 137 mmol/L Normal 133-145 [facility] Comment on above: Performed By: #### L 100.0100, L500.2500, L300.4310, L300.3900 #### [facility] [address] [place], [address] Urea nitrogen [Mass/Vol] 17 mg/dL Normal 4-19 [facility] Comment on above: Performed By: #### L 100.0100, L500.2500, L300.4310, L300.3900 #### [facility] [address] [place], [address] Basophil percentageOrdered B y: Cristobal Mayo on 12-14-2024 Basophils/100 WBC (Bld) 0.3 % 0-1 [facility] CBC W/Diff, Automatedon 11-24 Absolute Lymph 1.05 X10 3/uL Normal 0.83-4.51 [facility] Comment on above: Performed By: #### L 100.0100, L500.2500, L300.4310, L300.3900 #### [facility] [address] [place], [address] Absolute Neut 4.8 X10 3/uL Normal 2.0-7.7 [facility] Comment on above: Performed By: #### L 100.0100, L500.2500, L300.4310, L300.3900 #### [facility] [address] [place], [address] Basophils/100 WBC (Bld) 0.3 % Normal 0-1 [facility] Comment on above: Performed By: #### L 100.0100, L500.2500, L300.4310, L300.3900 #### [facility] [address] [place], [address] Eosinophils/100 WBC (Bld) 2.7 % Normal 0-5 [facility] Comment on above: Performed By: #### L 100.0100, L500.2500, L300.4310, L300.3900 #### [facility] [address] [place], [address] Erythrocyte distribution width (RBC) [Ratio] 13.9 % Normal 11.6-14.6 [facility] Comment on above: Performed By: #### L 100.0100, L500.2500, L300.4310, L300.3900 #### [facility] [address] [place], [address] Hematocrit (Bld) [Volume fraction] 41.5 % Normal 40-54 [facility] Comment on above: Performed By: #### L 100.0100, L500.2500, L300.4310, L300.3900 #### [facility] [address] [place], [address] Hemoglobin (Bld) [Mass/Vol] 14.6 g/dL Normal 13.0-16.5 [facility] Comment on above: Performed By: #### L 100.0100, L500.2500, L300.4310, L300.3900 #### [facility] [address] [place], [address] IG% 0.300 Normal 0.0-0.9 [facility] Comment on above: Result Comment: IG% - Immature Granulocytes (promyelocytes, myelocytes and metamyelocytes) > 1% indicates that a LEFT SHIFT is Present. Performed By: #### L 100.0100, L500.2500, L300.4310, L300.3900 #### [facility] [address] [place], [address] Lymphocytes/100 WBC (Bld) 15.9 % Low 19-41 [facility] Comment on above: Performed By: #### L 100.0100, L500.2500, L300.4310, L300.3900 #### [facility] [address] [place], [address] MCH (RBC) [Entitic mass] 28.9 pg Normal 27.0-32.0 [facility] Comment on above: Performed By: #### L 100.0100, L500.2500, L300.4310, L300.3900 #### [facility] [address] [place], [address] MCHC (RBC) [Mass/Vol] 35.2 g/dL Normal 32-36 [facility] Comment on above: Performed By: #### L 100.0100, L500.2500, L300.4310, L300.3900 #### [facility] [address] [place], [address] MCV (RBC) [Entitic vol] 82.2 fL Normal 80-94 [facility] Comment on above: Performed By: #### L 100.0100, L500.2500, L300.4310, L300.3900 #### [facility] [address] [place], [address] Monocytes/100 WBC (Bld) 8.2 % Normal 0-10 [facility] Comment on above: Performed By: #### L 100.0100, L500.2500, L300.4310, L300.3900 #### [facility] [address] [place], [address] Neutrophils/100 WBC (Bld) 72.6 % High 47-70 [facility] Comment on above: Performed By: #### L 100.0100, L500.2500, L300.4310, L300.3900 #### [facility] [address] [place], [address] Nucleated RBC (Bld) [#/Vol] 0 10*3/uL Normal 0-5 [facility] Comment on above: Performed By: #### L 100.0100, L500.2500, L300.4310, L300.3900 #### [facility] [address] [place], [address] Platelet mean volume (Bld) [Entitic vol] 9.4 fL Normal 6.2-12.0 [facility] Comment on above: Performed By: #### L 100.0100, L500.2500, L300.4310, L300.3900 #### [facility] [address] [place], [address] Platelets (Bld) [#/Vol] 122 10*3/uL Low 150-450 [facility] Comment on above: Performed By: #### L 100.0100, L500.2500, L300.4310, L300.3900 #### [facility] [address] [place], [address] RBC (Bld) [#/Vol] 5.05 10*6/uL Normal 4.6-6.2 [facility] Comment on above: Performed By: #### L 100.0100, L500.2500, L300.4310, L300.3900 #### [facility] [address] [place], [address] RDW SD 41.1 fl Normal 35.1-43.9 [facility] Comment on above: Performed By: #### L 100.0100, L500.2500, L300.4310, L300.3900 #### [facility] [address] [place], [address] WBC (Bld) [#/Vol] 6.6 10*3/uL Normal 4.4-11.0 [facility] Comment on above: Performed By: #### L 100.0100, L500.2500, L300.4310, L300.3900 #### [facility] [place], [address] CNOVon 12-14-2024 CNOV Office Visit (INTMWS ) TODD MATAMOROS ([id number]) 1940 M Date Time Provider Department 12/14/24 11:40 AM ASHA HERNANDEZ INTMWS During your visit today, we recorded the following information about you: Pulse Respiration Blood pressure Weight 54/minute 12/minute 152/84 84.1 kg Asha Hernandez, HYDRAMATIC SPECIALIST.CT TECH 12/14/2024 12:34 PM Signed CC: Patient presents with: Vertigo: Dizziness x 1 day HPI Recording using FXTrip software for draft documentation of the visit was discussed with the patient/authorized auto service representative; all questions welcomed and answered. Patient/authorized auto service representative agreed to proceed Daryn is [...] Macular degeneration NSTEMI (non-ST elevated myocardial infarction) ([facility]) 10/28/2019 Osteoarthritis of left hip Paresthesia PMH [...] 07/28/2007 DIR RPR ANEURYSM ABDOMINAL AORTA 04/20/2011 [facility] EYLEA (AFLIBERCEPT) 2MG INTRAVITREAL INJECTION OD [...] mg b (more content not included)... Normal [facility] 12-14-2024 [facility] Telephone (ISAIASWS) TODD MATAMOROS ([id number]) 1940 M Date Time Provider Department 12/14/[address] [facility] During your visit today, we recorded the [...] Status:Closed by DEBRA ROMERO on 12/14/24 Normal [facility] CTA Head AND Neck W/ Contras ton 12-14-2024 CTA Head AND Neck W/ Contrast [facility] [address] [place] [address] CTA Head AND Neck W/ Contrast MR#: [id number] Acct: [id number] Name: TODD MATAMOROS Rep #: [id number] : 1940 M 84 From: Galindo redding MD PCP: Dr. Robel Onofre, DO Status: REG ER Study: CTA Head AND Neck W/ Contrast Date of Exam: Exam# [id number] Ordering Dr: Cristobal Mayo DO PROCEDURE: CTA [...] RIGHT Vertebral: Unremarkable. LEFT Vertebral: Unremarkable. Anatomy: [place] of [place] anatomy is normal. Aneurysm or [...] internal carotid artery. Cerebral atrophy. Reading Location: [place] [address] CC: Dr. Robel Onofre DO; Dr. Cristobal Mayo DO External Grinder: Signed [facility] Carbon dioxide, total [Moles /volume] in Central venous bloodOrdered By: Cristobal Mayo on 12-14-2024 CO2 [Moles/Vol] 21.1 mmol/L 21.0-32.0 [facility] Chloride assayOrdered By: Geovanni Mayo on 12-14-2024 Chloride [Moles/Vol] 106 mmol/L 98-108 [facility] Emergency Department Summary on 12-14-2024 Emergency Department Summary [facility] Medical Records Department [address] [place] [address] Emergency Department Summary 12/14/24 MR#: [id number] Acct: [id number] Name: TODD MATAMOROS Rep #: [id number] : 1940 84 From: Cristobal Ivory PCP: [...] his daughter. 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 Normal [facility] Eosinophil percentageOrdered By: Cristobal Mayo on 12-14-2024 Eosinophils/100 WBC (Bld) 2.7 % 0-5 [facility] Erythrocyte distribution wid th (RBC) [Ratio]Ordered By: Cristobal Mayo on 12-14-2024 Erythrocyte distribution width (RBC) [Entitic vol] 41.1 fL 35.1-43.9 [facility] Erythrocyte distribution wid th ratioOrdered By: Cristobal Mayo on 12-14-2024 Erythrocyte distribution width (RBC) [Ratio] 13.9 % 11.6-14.6 [facility] Erythrocyte distribution wid th standard deviationOrdered By: Cristobal Myao on 12-14-2024 Erythrocyte distribution width (RBC) [Ratio] 41.1 fl 35.1-43.9 [facility] GFR/1.73 sq M.predicted lebron g non-blacks MDRD (S/P/Bld) [Vol rate/Area]Ordered By: Cristobal Mayo on 12-14-2024 Estimated GFR (MDRD) Non-Af Amer 73 >60 [facility] Comment on above: mL/min/1.73m2 CKD-EP I Creatinine Equation (2020) Glomerular filtration rate ( GFR) estimation/1.73 sq m using serum, plasma, or whole bOrdered By: Cristobal Mayo on 12-14-2024 GFR/1.73 sq M.predicted among non-blacks MDRD (S/P/Bld) [Vol rate/Area] 73 mL/min/{1.73_m2} >60 [facility] Comment on above: mL/min/1.73m2 CKD-EP I Creatinine Equation (2020) Hematocrit Auto (Bld) [Volum e fraction]Ordered By: Cristobal Mayo on 12-14-2024 Hematocrit (Bld) [Volume fraction] 41.5 % 40-54 [facility] Hemoglobin measurementOrdere d By: Cristobal Mayo on 12-14-2024 Hemoglobin (Bld) [Mass/Vol] 14.6 g/dL 13.0-16.5 [facility] Immature granulocytes/100 WB C Auto (Bld)Ordered By: Cristobal Mayo on 12-14-2024 Immature granulocytes/100 WBC (Bld) 0.300 % 0.0-0.9 [facility] Comment on above: IG% - Immature Granu locytes (promyelocytes, myelocytes and metamyelocytes) > 1% indicates that a LEFT SHIFT is Present. International normalized rat io (INR) calculationOrdered By: Cristobal Mayo on 12-14-2024 INR Coag (Bld) [Relative time] 1.1 {INR} [facility] Lymphocytes Auto (Unsp spec) [#/Vol]Ordered By: Cristobal Mayo on 12-14-2024 Lymphocytes (Bld) [#/Vol] 1.05 10*3/uL 0.83-4.51 [facility] Lymphocytes/100 WBC Auto (Un sp spec)Ordered By: Cristobal Mayo on 12-14-2024 Lymphocytes/100 WBC (Bld) 15.9 % Low 19-41 [facility] MCV (mean corpuscular volume ) determinationOrdered By: Cristobal Mayo on 12-14-2024 MCV (RBC) [Entitic vol] 82.2 fL 80-94 [facility] Mean corpuscular hemoglobin (MCH) determinationOrdered By: Cristobal Mayo on 12-14-2024 MCH (RBC) [Entitic mass] 28.9 pg 27.0-32.0 [facility] Mean corpuscular hemoglobin concentration (MCHC) determinationOrdered By: Cristobal Mayo on 12-14-2024 MCHC (RBC) [Mass/Vol] 35.2 g/dL 32-36 [facility] Mean platelet volume determi nationOrdered By: Cristobal Mayo on 12-14-2024 Platelet mean volume (Bld) [Entitic vol] 9.4 fL 6.2-12.0 [facility] Monocyte percentageOrdered B y: Cristobal Mayo on 12-14-2024 Monocytes/100 WBC (Bld) 8.2 % 0-10 [facility] Neutrophil percentageOrdered By: Cristobal Mayo on 12-14-2024 Neutrophils/100 WBC (Bld) 72.6 % High 47-70 [facility] Nucleated red blood cell per centageOrdered By: Cristobal Mayo on 12-14-2024 Nucleated RBC/100 WBC (Bld) [Ratio] 0 % 0-5 [facility] Partial Thromboplast Timeon 12-14-2024 aPTT Coag (Bld) [Time] 82.8 s High 24.1-36.2 [facility] Comment on above: Performed By: #### L 100.0100, L500.2500, L300.4310, L300.3900 #### [facility] [address] [place], [address] Platelet countOrdered By: Geovanni Mayo on 12-14-2024 Platelets (Bld) [#/Vol] 122 10*3/uL Low 150-450 [facility] Potassium (Unsp spec) [Mass/ Vol]Ordered By: Cristobal Mayo on 12-14-2024 Potassium [Moles/Vol] 4.0 mmol/L 3.3-5.1 [facility] Potassium measurement (mass/ volume)Ordered By: Cristobal Mayo on 12-14-2024 Potassium (Unsp spec) [Mass/Vol] 4.0 mmol/L 3.3-5.1 [facility] Prothrombin Time w/INRon INR Coag (PPP) [Relative time] 1.1 {INR} [facility] Comment on above: Performed By: #### L 100.0100, L500.2500, L300.4310, L300.3900 #### [facility] [address] [place], [address] PT Coag (PPP) [Time] 14.0 s Normal 11.7-14.9 [facility] Comment on above: Performed By: #### L 100.0100, L500.2500, L300.4310, L300.3900 #### [facility] [address] [place], [address] Prothrombin timeOrdered By: Cristobal Mayo on 12-14-2024 PT Coag (PPP) [Time] 14.0 s 11.7-14.9 [facility] RBC Auto (Bld) [#/Vol]Ordere d By: Cristobal Mayo on 12-14-2024 RBC (Bld) [#/Vol] 5.05 10*6/uL 4.6-6.2 [facility] Serum creatinine measurement (mass/volume)Ordered By: Cristobal Mayo on 12-14-2024 Creatinine [Mass/Vol] 1.01 mg/dL 0.70-1.20 [facility] Serum glucose measurement (m ass/volume)Ordered By: Cristobal Mayo on 12-14-2024 Glucose [Mass/Vol] 112 mg/dL High 70-99 [facility] Serum or plasma calcium kimmie urement (mass/volume)Ordered By: Cristobal Mayo on 12-14-2024 Calcium [Mass/Vol] 9.6 mg/dL 7.6-11.0 [facility] Serum or plasma urea nitroge n measurement (mass/volume)Ordered By: Cristobal Mayo on 12-14-2024 Urea nitrogen [Mass/Vol] 17 mg/dL 4-19 [facility] Sodium levelOrdered By: Cristobal Mayo on 12-14-2024 Sodium [Moles/Vol] 137 mmol/L 133-145 [facility] White blood cell (WBC) count Ordered By: Cristobal Mayo on 12-14-2024 WBC (Bld) [#/Vol] 6.6 10*3/uL 4.4-11.0 [facility] aPTT Coag (PPP) [Time]Ordere d By: Cristobal Mayo on 12-14-2024 aPTT Coag (Bld) [Time] 82.8 s High 24.1-36.2 [facility] CNPNon 10-08-2024 CNPN Telephone (FAMDahianaWS) TODD MATAMOROS ([id number]) 1940 M Date Time Provider Department 10/08/24 ROBEL ONOFRE During your visit today, we recorded the following information about you: Zenaida Morrissey 10/08/2024 8:17 AM Signed Shy is calling Robel Onofre DO today to request Letter (Blindness confirmation for taxes) Patient has been identified by name and birthdate. Duration of symptoms: N/A Person calling: daughter: Jadyn Lew patient at: [phone] Was an appointment scheduled: No Closing statement: [...] Status:Closed by RODNEY KIRK LPN on 10/12/24 [facility] Rosanna 08-30-2024 LEON Telephone (FAMPWS) TODD MATAMOROS ([id number]) 1940 M Date Time Provider Department 08/30/24 ROBEL ONOFRE During your visit today, we recorded the following information about you: Rodney Kirk LPN 08/30/2024 12:11 PM Signed Type of form: Deaf and blind form Form received via walk in When form is completed, PhoneTina when complete.[phone] Form has been forwarded to Physician Desk: [...] it to her in the mail at [phone] [phone]. SAMUEL Delgado Jordan L, DO 09/01/2024 8:16 [...] Status:Closed by RODNEY KIRK LPN on 11/30/24 [facility] TOD[facility]OS ([id number]) 1940 M Date Time Provider Department 07/01/24 [...] Status:Closed by KORTNEY BONNER on 07/01/24 Normal [facility] 25([place])D3 [facility] 2023 25-hydroxyvitamin D3 [Mass/Vol] 44.7 ng/mL Normal 31.0-80.0 [facility] Comment on above: Order Comment: Speci men Type: BLOOD SPECIMENOrdering Facility: [facility] Address: [address] [place] [address] Result Comment: Clas sification of 25 [place] Vitamin D status: Deficiency/Insufficiency: < or = 30 ng/ml. Sufficiency/Optimal Levels: 31-80 ng/mL Toxicity: > 100 ng/mL. Test performed by chemiluminescent immunoassay. Performed By: #### 1 989-3 ####[facility] LABCLIA [id number] [place] [address] [place] CBC W Auto Differential pane l (Bld)on 06-30-2024 Basophils (Bld) [#/Vol] 10*3/uL Normal <0.11 C [facility] Comment on above: Order Comment: Speci men Type: BLOOD SPECIMENOrdering Facility: [facility] Address: [address] [place] [address] Performed By: #### 5 7021-8 ####[facility] LABIA [id number] [place] [address] [place] Basophils/100 WBC (Bld) 0.3 % Normal C [facility] Comment on above: Order Comment: Speci men Type: BLOOD SPECIMENOrdering Facility: [facility] Address: [address] [place] [address] Performed By: #### 5 7021-8 ####[facility] LABCLIA [id number] [place] [address] [place] Differential cell count method Nom (Bld) Auto Normal [facility] Comment on above: Order Comment: Speci men Type: BLOOD SPECIMENOrdering Facility: [facility] Address: [address] [place] [address] Performed By: #### 5 7021-8 ####[facility] LABCLIA [id number] [id number] [address] [place] Eosinophils (Bld) [#/Vol] 0.23 10*3/uL Normal <0.46 [facility] Comment on above: Order Comment: Speci men Type: BLOOD SPECIMENOrdering Facility: [facility] Address: [address] [place] [address] Performed By: #### 5 7021-8 ####[facility] LABCLIA [id number] [place] [address] [place] Eosinophils/100 WBC (Bld) 3.1 % Normal [facility] Comment on above: Order Comment: Speci men Type: BLOOD SPECIMENOrdering Facility: [facility] Address: [address] [place] [address] Performed By: #### 5 7021-8 ####[facility] LABCLIA [id number] [place] [address] [place] Erythrocyte distribution width (RBC) [Ratio] 14.1 % Normal 11.5-15.0 [facility] Comment on above: Order Comment: Speci men Type: BLOOD SPECIMENOrdering Facility: [facility] Address: [address] [place] [address] Performed By: #### 5 7021-8 ####[facility] LABCLIA [id number] [address] [place] Hematocrit (Bld) [Volume fraction] 42.9 % Normal 39.0-51.0 [facility] Comment on above: Order Comment: Speci men Type: BLOOD SPECIMENOrdering Facility: [facility] Address: [address] [place] [address] Performed By: #### 5 7021-8 ####[facility] LABCLIA [id number] [place] [address] [place] Hemoglobin (Bld) [Mass/Vol] 14.6 g/dL Normal 13.0-17.0 [facility] Comment on above: Order Comment: Speci men Type: BLOOD SPECIMENOrdering Facility: [facility] Address: [address] [place] [address] Performed By: #### 5 7021-8 ####[facility] LABCLIA [id number] [place] [address] [place] Immature granulocytes (Bld) [#/Vol] 0.03 10*3/uL Normal <0.10 [facility] Comment on above: Order Comment: Speci men Type: BLOOD SPECIMENOrdering Facility: [facility] Address: [address] [place] [address] Performed By: #### 5 7021-8 ####[facility] LABCLIA [id number] [place] [address] [place] Immature granulocytes/100 WBC (Bld) 0.4 % Normal [facility] Comment on above: Order Comment: Speci men Type: BLOOD SPECIMENOrdering Facility: [facility] Address: [address] [place] [address] Performed By: #### 5 7021-8 ####[facility] LABCLIA [id number] [place] [address] [place] Lymphocytes (Bld) [#/Vol] 1.43 10*3/uL Normal 1.00-4.00 [facility] Comment on above: Order Comment: Speci men Type: BLOOD SPECIMENOrdering Facility: [facility] Address: [address] [place] [address] Performed By: #### 5 7021-8 ####[facility] LABCLIA [id number] [place] [address] [place] Lymphocytes/100 WBC (Bld) 19.1 % Normal [facility] Comment on above: Order Comment: Speci men Type: BLOOD SPECIMENOrdering Facility: [facility] Address: [address] [place] [address] Performed By: #### 5 7021-8 ####[facility] LABCLIA [id number] [id number] [address] [place] MCH (RBC) [Entitic mass] 29.9 pg Normal 26.0-34.0 [facility] Comment on above: Order Comment: Speci men Type: BLOOD SPECIMENOrdering Facility: [facility] Address: [address] [place] [address] Performed By: #### 5 7021-8 ####[facility] LABCLIA [id number] [place] [address] [place] MCHC (RBC) [Mass/Vol] 34.0 g/dL Normal 30.5-36.0 [facility] Comment on above: Order Comment: Speci men Type: BLOOD SPECIMENOrdering Facility: [facility] Address: [address] [place] [address] Performed By: #### 5 7021-8 ####[facility] LABCLIA [id number] [place] [address] [place] MCV (RBC) [Entitic vol] 87.9 fL Normal 80.0-100.0 C [facility] Comment on above: Order Comment: Speci men Type: BLOOD SPECIMENOrdering Facility: [facility] Address: [address] [place] [address] Performed By: #### 5 7021-8 ####[facility] LABIA [id number] [place] [address] [place] Monocytes (Bld) [#/Vol] 0.72 10*3/uL Normal <0.87 [facility] Comment on above: Order Comment: Speci men Type: BLOOD SPECIMENOrdering Facility: [facility] Address: [address] [place] [address] Performed By: #### 5 7021-8 ####[facility] LABCLIA [id number] [place] [address] [place] Monocytes/100 WBC (Bld) 9.6 % Normal C [facility] Comment on above: Order Comment: Speci men Type: BLOOD SPECIMENOrdering Facility: [facility] Address: [address] [place] [address] Performed By: #### 5 7021-8 ####[facility] LABCLIA [id number] [place] [address] [place] Neutrophils (Bld) [#/Vol] 5.05 10*3/uL Normal 1.45-7.50 [facility] Comment on above: Order Comment: Speci men Type: BLOOD SPECIMENOrdering Facility: [facility] Address: [address] [place] [address] Performed By: #### 5 7021-8 ####[facility] LABCLIA [id number] [place] [address] [place] Neutrophils/100 WBC (Bld) 67.5 % Normal [facility] Comment on above: Order Comment: Speci men Type: BLOOD SPECIMENOrdering Facility: [facility] Address: [address] [place] [address] Performed By: #### 5 7021-8 ####[facility] LABCLIA [id number] [place] [address] [place] Nucleated RBC (Bld) [#/Vol] 10*3/uL Normal <0.01 [facility] Comment on above: Order Comment: Speci men Type: BLOOD SPECIMENOrdering Facility: [facility] Address: [address] [place] [address] Performed By: #### 5 7021-8 ####[facility] LABCLIA [id number] [place] [address] [place] Nucleated RBC/100 WBC (Bld) [Ratio] 0.0 /100 WBC Normal [facility] Comment on above: Order Comment: Speci men Type: BLOOD SPECIMENOrdering Facility: [facility] Address: [address] [place] [address] Performed By: #### 5 7021-8 ####[facility] LABCLIA [id number] [place] [address] [place] Platelet mean volume (Bld) [Entitic vol] 9.8 fL Normal 9.0-12.7 [facility] Comment on above: Order Comment: Speci men Type: BLOOD SPECIMENOrdering Facility: [facility] Address: [address] [place] [address] Performed By: #### 5 7021-8 ####[facility] LABIA [id number] [place] [address] [place] Platelets (Bld) [#/Vol] 133 10*3/uL Low 150-400 [facility] Comment on above: Order Comment: Speci men Type: BLOOD SPECIMENOrdering Facility: [facility] Address: [address] [place] [address] Performed By: #### 5 7021-8 ####[facility] LABIA [id number] [place] [address] [place] RBC (Bld) [#/Vol] 4.88 10*6/uL Normal 4.20-6.00 [facility] Comment on above: Order Comment: Speci men Type: BLOOD SPECIMENOrdering Facility: [facility] Address: [address] [place] [address] Performed By: #### 5 7021-8 ####[facility] LABIA [id number] [place] [address] [place] WBC (Bld) [#/Vol] 7.48 10*3/uL Normal 3.70-11.00 [facility] Comment on above: Order Comment: Speci men Type: BLOOD SPECIMENOrdering Facility: [facility] Address: [address] [place] [address] Performed By: #### 5 7021-8 ####[facility] LABCLIA [id number] [place] [address] [place] CNOVon 06-30-2024 CNOV Office Visit (FAMPWS ) TODD MATAMOROS ([id number]) 1940 M Date Time Provider Department 06/30/24 10:40 AM [facility] During your visit today, we recorded the [...] taking medications as prescribed. Continues to see Travel Consultant for followup Iron deficiency, eating iron rich foods,no signs of bleeding. Last labs in November Mood, overall stable, taking Sertraline. Helps to care for his with dementia. Daughter feels he is doing well. Has fatigue, wondering if can try vitamin b12 injections PAST MEDICAL HISTORY Diagnosis Date Acute bronchitis Aneurysm of abdominal aorta ([facility]) 04/20/2011. Lower abdomen. BPH (benign prostatic hyperplasia) CAD (coronary artery disease) Diverticulosis of colon (without mention of hemorrhage) GERD (gastroesophageal reflux disease) Hyperlipidemia Hypertension Internal hemorrhoids without mention of complication Macular degeneration NSTEMI (non-ST elevated myocardial infarction) ([facility]) 10/28/2019 Osteoarthritis of left hip Paresthesia PMH [...] 07/28/2007 DIR RPR ANEURYSM ABDOMINAL AORTA 04/20/2011 [place] Klarissa EYLEA (AFLIBERCEPT) 2MG INTRAVITREAL INJECTION OD [...] No cer (more content not included)... Normal [facility] Comprehensive metabolic 2000 panelon 06-30-2024 Albumin [Mass/Vol] 4.2 g/dL Normal 3.9-4.9 [facility] Comment on above: Order Comment: Speci men Type: BLOOD SPECIMENOrdering Facility: [facility] Address: [address] [place] [address] Performed By: #### 2 4323-8, LIPNF, 3015-10, ####[facility] LABCLIA [id number] [place] [address] [place] ALP [Catalytic activity/Vol] 123 U/L High 38-113 [facility] Comment on above: Order Comment: Speci men Type: BLOOD SPECIMENOrdering Facility: [facility] Address: [address] [place] [address] Performed By: #### 2 4323-8, LIPNF, 3015-10, ####[facility] LABCLIA [id number] [place] [address] [place] ALT [Catalytic activity/Vol] 12 U/L Normal 10-54 [facility] Comment on above: Order Comment: Speci men Type: BLOOD SPECIMENOrdering Facility: [facility] Address: [address] [place] [address] Performed By: #### 2 4323-8, LIPNF, 6-3, ####[facility] LABCLIA [id number] [place] [address] [place] Anion gap [Moles/Vol] 11 mmol/L Normal 8-15 [facility] Comment on above: Order Comment: Speci men Type: BLOOD SPECIMENOrdering Facility: [facility] Address: [address] [place] [address] Performed By: #### 2 4323-8, LIPNF, 6-3, ####[facility] LABCLIA [id number] [place] [address] [place] AST [Catalytic activity/Vol] 13 U/L Low 14-40 [facility] Comment on above: Order Comment: Speci men Type: BLOOD SPECIMENOrdering Facility: [facility] Address: [address] [place] [address] Performed By: #### 2 4323-8, LIPNF, 6-3, ####[facility] LABCLIA [id number] [place] [address] [place] Bilirubin [Mass/Vol] 0.6 mg/dL Normal 0.2-1.3 [facility] Comment on above: Order Comment: Speci men Type: BLOOD SPECIMENOrdering Facility: [facility] Address: [address] [place] [address] Performed By: #### 2 4323-8, LIPNF, 3015-3, ####[facility] LABCLIA [id number] [place] [address] [place] Calcium [Mass/Vol] 9.3 mg/dL Normal 8.5-10.2 [facility] Comment on above: Order Comment: Speci men Type: BLOOD SPECIMENOrdering Facility: [facility] Address: [address] [place] [address] Performed By: #### 2 4323-8, LIPNF, 6-3, ####[facility] LABCLIA [id number] [place] [address] [place] Chloride [Moles/Vol] 105 mmol/L Normal 98-107 [facility] Comment on above: Order Comment: Speci men Type: BLOOD SPECIMENOrdering Facility: [facility] Address: [address] [place] [address] Performed By: #### 2 4323-8, LIPNF, 6-3, ####[facility] LABIA [id number] [place] [address] [place] CO2 [Moles/Vol] 21 mmol/L Low 22-30 [facility] Comment on above: Order Comment: Speci men Type: BLOOD SPECIMENOrdering Facility: [facility] Address: [address] [place] [address] Performed By: #### 2 4323-8, LIPNF, 6-3, ####[facility] LABIA [id number] [place] [address] [place] Creatinine [Mass/Vol] 1.09 mg/dL Normal 0.73-1.22 [facility] Comment on above: Order Comment: Speci men Type: BLOOD SPECIMENOrdering Facility: [facility] Address: [address] [place] [address] Performed By: #### 2 4323-8, LIPNF, 3015-3, ####[facility] LABIA [id number] [place] [address] [place] Creatinine and Glomerular filtration rate.predicted panel (S/P/Bld) 67 mL/min/1.73m??? Normal >=60 [facility] Comment on above: Order Comment: Speci men Type: BLOOD SPECIMENOrdering Facility: [facility] Address: [address] [place] [address] Result Comment: Shannan mated Glomerular Filtration Rate [...] Performed By: #### 2 4323-8, ALEJA, 3015-3, ####[facility] LABIA [id number] [address] [address] [place] Glucose [Mass/Vol] 98 mg/dL Normal 74-99 [facility] Comment on above: Order Comment: Speci men Type: BLOOD SPECIMENOrdering Facility: [facility] Address: [address] [place] [address] Result Comment: The [place] [employer] (ADA) provides guidance for cutoff [...] Standards of Medical Care in Diabetes 2016, [employer]. Diabetes Care. 2016.39(Suppl 1). Performed By: #### 2 4323-8, LIPTITO, 3015-3, ####[facility] LABIA [id number] [address] [address] [place] Potassium [Moles/Vol] 4.0 mmol/L Normal 3.7-5.1 [facility] Comment on above: Order Comment: Speci men Type: BLOOD SPECIMENOrdering Facility: [facility] Address: [address] [id number] Performed By: #### 2 4323-8, LIPNF, 3016-3, ####[facility] LABCLIA [id number] [address] [address] [place] Protein [Mass/Vol] 6.6 g/dL Normal 6.3-8.0 [facility] Comment on above: Order Comment: Speci men Type: BLOOD SPECIMENOrdering Facility: [facility] Address: [address] [place] [address] Performed By: #### 2 4323-8, LIPNF, 6-3, ####[facility] LABIA [id number] [place] [address] [place] Sodium [Moles/Vol] 137 mmol/L Normal 136-144 [facility] Comment on above: Order Comment: Speci men Type: BLOOD SPECIMENOrdering Facility: [facility] Address: [address] [place] [address] Performed By: #### 2 4323-8, LIPNF, 6-3, ####[facility] LABIA [id number] [place] [address] [place] Urea nitrogen [Mass/Vol] 22 mg/dL Normal 9-24 [facility] Comment on above: Order Comment: Speci men Type: BLOOD SPECIMENOrdering Facility: [facility] Address: [address] [place] [address] Performed By: #### 2 4323-8, LIPNF, 6-3, ####[facility] LABIA [id number] [address] [id number] [place] HbA1c (Bld)on 06-30-2024 Average glucose Estimated from glycated hemoglobin (Bld) [Mass/Vol] 100 mg/dL Normal [facility] Comment on above: Order Comment: Speci men Type: BLOOD SPECIMENOrdering Facility: [facility] Address: [address] [place] [address] Result Comment: eAG: (Estimated average glucose) is a calculated value from HgbA1c and is auto service representative of the average blood glucose level in the last 2-3 month period. Performed By: #### 5 5454-3 ####[facility] LABCLIA [id number] [place] [address] [place] HbA1c (Bld) [Mass fraction] 5.1 % Normal 4.3-5.6 [facility] Comment on above: Order Comment: Christian modi Type: BLOOD SPECIMENOrdering Facility: [facility] Address: [address] [place] [address] Result Comment: [place] Diabetes Association guidelines indicate that patients with HgbA1c in the range 5.7-6.4% are at increased risk for development of diabetes, and intervention by lifestyle modification may be beneficial. HgbA1c greater or equal to 6.5% is considered diagnostic of diabetes. Performed By: #### 5 5454-3 ####[facility] LABIA [id number] [place] [address] [place] LIPID PANEL, NONFASTINGon Cholesterol [Mass/Vol] 126 mg/dL Normal <200 [facility] Comment on above: Order Comment: Christian modi Type: BLOOD SPECIMENOrdering Facility: [facility] Address: [address] [place] [address] Result Comment: <200 mg/dL, Desirable 200-239 mg/dL, Borderline high >239 mg/dL, High Performed By: #### 2 4323-8, LIPNF, 3016-3, 94585-9 ####[facility] LABIA [id number] [place] [address] [place] HDL CHOLESTEROL, NF 33 mg/dL Low >39 [facility] Comment on above: Order Comment: Christian modi Type: BLOOD SPECIMENOrdering Facility: [facility] Address: [address] [place] [address] Result Comment: 40-5 9 mg/dL, Acceptable >59 mg/dL, High: Negative risk factor for coronary heart disease <40 mg/dL, Low: Positive risk factor for coronary heart disease Performed By: #### 2 4323-8, LIPNF, 3015-3, ####[facility] LABCLIA [id number] [place] [address] [place] LDL CHOLESTEROL, NF 43 mg/dL Normal <100 [facility] Comment on above: Order Comment: Speci men Type: BLOOD SPECIMENOrdering Facility: [facility] Address: [address] [place] [address] Result Comment: <100 mg/dL, Optimal 100-129 mg/dL, Near optimal/above optimal 130-159 mg/dL, Borderline high 160-189 mg/dL, High >189 mg/dL, Very high Secondary prevention optimal LDL Cholesterol levels are recommended to be < 70 mg/dL Performed By: #### 2 4323-8, LIPNF, 3015-10, ####[facility] LABCLIA [id number] [address] [place] LDL/HDL RATIO, NF 1.30 mg/dL Normal <2.54 [facility] Comment on above: Order Comment: Emii men Type: BLOOD SPECIMENOrdering Facility: [facility] Address: [address] [place] [address] Result Comment: Refe isabellce: 1. National Cholesterol Education Program ATP III Guideline At-A-Glance Quick Desk Reference: National Heart, Lung, and Blood Marble. National Institutes of Health. 2001: NIH Publication No. 01-3305. 2. An International Atherosclerosis Society position paper: global recommendations for the management of dyslipidemia: executive summary, Atherosclerosis. 2014: 232(2):410-413. Performed By: #### 2 4323-8, LIPNF, 3015-, ####[facility] LABCLIA [id number] [place] [address] [place] NON HDL CHOL, NF 93 mg/dL Normal <130 [facility] Comment on above: Order Comment: Speci men Type: BLOOD SPECIMENOrdering Facility: [facility] Address: [address] [place], [place] [id number] Result Comment: <130 mg/dL, Optimal 130-159 mg/dL, Near optimal/above optimal 160-189 mg/dL, Borderline high 190-219 mg/dL, High >219 mg/dL, Very high Secondary prevention optimal non HDL Cholesterol levels are recommended to be <100 mg/dL Performed By: #### 2 4323-8, LIPNF, 3015-3, ####[facility] LABCLIA [id number] [place] [address] [place] T CHOL/HDL RATIO NF 3.82 mg/dL Normal <5.10 [facility] Comment on above: Order Comment: Speci men Type: BLOOD SPECIMENOrdering Facility: [facility] Address: [address] [place] [address] Performed By: #### 2 4323-8, LIPNF, 3015-10, ####[facility] LABCLIA [id number] [place] [address] [place] TRIGLYCERIDES, NF 251 mg/dL High <150 [facility] Comment on above: Order Comment: Speci men Type: BLOOD SPECIMENOrdering Facility: [facility] Address: [address] [place] [address] Result Comment: <150 mg/dL, Normal 150-199 mg/dL, Borderline high 200-499 mg/dL, High >499 mg/dL, Very high Performed By: #### 2 4323-8, LIPNF, 3015-10, ####[facility] LABCLIA [id number] [place] [id number] [place] VLDL CHOLESTEROL, NF 50 mg/dL High <30 [facility] Comment on above: Order Comment: Speci men Type: BLOOD SPECIMENOrdering Facility: [facility] Address: [address] [place] [address] Performed By: #### 2 4323-8, LIPNF, 3015-10, ####[facility] LABCLIA [id number] [address] [address] [place] Magnesium SerPl-mCncon 06-30 Magnesium [Mass/Vol] 2.2 mg/dL Normal 1.7-2.3 [facility] Comment on above: Order Comment: Speci men Type: BLOOD SPECIMENOrdering Facility: [facility] Address: [address] [place] [address] Performed By: #### 2 4323-8, LIPNF, 3015-10, ####[facility] LABIA [id number] [place] [id number] [place] TSH SerPl-aCncon 06-30-2024 TSH Qn 2.020 m[IU]/L Normal 0.270-4.200 [facility] Comment on above: Order Comment: Speci men Type: BLOOD SPECIMENOrdering Facility: [facility] Address: [address] [place] [address] Performed By: #### 2 4323-8, LIPNF, 3015-10, ####[facility] LABIA [id number] [place] [address] [place] Urinalysis complete panel (U )on 06-30-2024 Bacteria LM.HPF (Urine sed) [#/Area] Negative Normal Negative [facility] Comment on above: Order Comment: Speci men Type: URINE SPECIMENOrdering Facility: [facility] Address: [address] [place] [address] Performed By: #### 2 4356-8 ####[facility] LABIA [id number] [place] [address] [place] Bilirubin Ql (U) Negative Normal Negative [facility] Comment on above: Order Comment: Speci men Type: URINE SPECIMENOrdering Facility: [facility] Address: [address] [place] [address] Performed By: #### 2 4356-8 ####[facility] LABCLIA [id number] [place] [address] [place] Clarity (Unsp spec) Clear Normal Clear [facility] Comment on above: Order Comment: Speci men Type: URINE SPECIMENOrdering Facility: [facility] Address: [address] [place] [address] Performed By: #### 2 4356-8 ####[facility] LABCLIA [id number] [place] [address] [place] Color (U) Dark Yellow Abnormal Yellow [facility] Comment on above: Order Comment: Speci men Type: URINE SPECIMENOrdering Facility: [facility] Address: [address] [place] [address] Performed By: #### 2 4356-8 ####[facility] LABCLIA [id number] [place] [address] [place] Epithelial cells LM.HPF (Urine sed) [#/Area] Few Normal [facility] Comment on above: Order Comment: Speci men Type: URINE SPECIMENOrdering Facility: [facility] Address: [address] [place] [address] Performed By: #### 2 4356-8 ####[facility] LABCLIA [id number] [place] [address] [place] Glucose Test strip (U) [Mass/Vol] Negative Normal Negative [facility] Comment on above: Order Comment: Speci men Type: URINE SPECIMENOrdering Facility: [facility] Address: [address] [place] [address] Performed By: #### 2 4356-8 ####[facility] LABCLIA [id number] [place] [address] [place] Hemoglobin Ql (U) Negative Normal Negative [facility] Comment on above: Order Comment: Speci men Type: URINE SPECIMENOrdering Facility: [facility] Address: [address] [place] [address] Performed By: #### 2 4356-8 ####[facility] LABCLIA [id number] [place] [address] [place] Hyaline casts (Urine sed) [#/Area] 0 /[LPF] Normal 0 /LPF [facility] Comment on above: Order Comment: Speci men Type: URINE SPECIMENOrdering Facility: [facility] Address: [address] [place] [address] Performed By: #### 2 4356-8 ####[facility] LABCLIA [id number] [place] [address] [place] Ketones Ql (U) Negative Normal Negative [facility] Comment on above: Order Comment: Speci men Type: URINE SPECIMENOrdering Facility: [facility] Address: [address] [place] [address] Performed By: #### 2 4356-8 ####[facility] LABCLIA [id number] [place] [address] [place] Leukocyte esterase Test strip Ql (U) Negative Normal Negative [facility] Comment on above: Order Comment: Speci men Type: URINE SPECIMENOrdering Facility: [facility] Address: [address] [place] [address] Performed By: #### 2 4356-8 ####[facility] LABCLIA [id number] [place] [address] [place] Nitrite Ql (U) Negative Normal Negative [facility] Comment on above: Order Comment: Speci men Type: URINE SPECIMENOrdering Facility: [facility] Address: [address] [place] [address] Performed By: #### 2 4356-8 ####[facility] LABCLIA [id number] [place] [address] [place] pH (U) 5.5 [pH] Normal <8.5 [facility] Comment on above: Order Comment: Speci men Type: URINE SPECIMENOrdering Facility: [facility] Address: [address] [place] [address] Performed By: #### 2 4356-8 ####[facility] LABIA [id number] [place] [address] [place] Protein (U) [Mass/Vol] Trace Abnormal Negative Cl [facility] Comment on above: Order Comment: Speci men Type: URINE SPECIMENOrdering Facility: [facility] Address: [address] [place] [address] Performed By: #### 2 4356-8 ####[facility] [id number] [place] [address] [place] RBC LM.HPF (Urine sed) [#/Area] 0-2 /HPF Normal 0-2 /HPF [facility] Comment on above: Order Comment: Speci men Type: URINE SPECIMENOrdering Facility: [facility] Address: [address] [place] [address] Performed By: #### 2 4356-8 ####[facility] [id number] [place] [address] [place] Specific gravity (U) [Rel density] 1.024 Normal 1.005-1.030 [facility] Comment on above: Order Comment: Speci men Type: URINE SPECIMENOrdering Facility: [facility] Address: [address] [place] [address] Performed By: #### 2 4356-8 ####[facility] [id number] [place] [address] [place] Urobilinogen Ql (U) 1.0 EU/dL Normal 0.2-1.0 EU/dL [facility] Comment on above: Order Comment: Speci men Type: URINE SPECIMENOrdering Facility: [facility] Address: [address] [place] [address] Performed By: #### 2 4356-8 ####[facility] LABCLIA [id number] [place] [id number] [place] WBC LM.HPF (Urine sed) [#/Area] 0-5 /HPF Normal 0-5 /HPF [facility] Comment on above: Order Comment: Speci men Type: URINE SPECIMENOrdering Facility: [facility] Address: [address] [place] [address] Performed By: #### 2 4356-8 ####[facility] LABCLIA [id number] [place] [id number] [place] Vit B12 [facility] 06-30- 024 Cobalamin (Vitamin B12) [Mass/Vol] 1079 pg/mL Normal 232-1245 [facility] Comment on above: Order Comment: Speci men Type: BLOOD SPECIMENOrdering Facility: [facility] Address: [address] [place] [address] Performed By: #### 2 132-9 ####[facility] LABCLIA [id number] [place] [id number] [place] 25-hydroxyvitamin D3 [Mass/V ol]on 12-22-2023 Interpretation and review of laboratory results Normal [facility] The reference range interval was based on an analysis of samples from healthy adults and may not pertain to children from 0-[address] [facility] CBC W Auto Differential pane l (Bld)on 12-22-2023 Basophils (Bld) [#/Vol] 0.03 10*3/uL [facility] Basophils/100 WBC (Bld) 0.4 % C [facility] Differential cell count method Nom (Bld) Auto [facility] Eosinophils (Bld) [#/Vol] 0.54 10*3/uL High [facility] Eosinophils/100 WBC (Bld) 7.7 % [facility] Erythrocyte distribution width (RBC) [Ratio] 14.2 % 11.5 - 15.0 % [facility] Hematocrit (Bld) [Volume fraction] 44.0 % 39.0 - 51.0 % [facility] Hemoglobin (Bld) [Mass/Vol] 15.2 g/dL 13.0 - 17.0 g/dL [facility] Immature granulocytes (Bld) [#/Vol] 0.03 10*3/uL [facility] Immature granulocytes/100 WBC (Bld) 0.4 % [facility] Interpretation and review of laboratory results Abnormal [facility] Lymphocytes (Bld) [#/Vol] 1.45 10*3/uL [facility] Lymphocytes/100 WBC (Bld) 20.7 % [facility] MCH (RBC) [Entitic mass] 30.5 pg 26.0 - 34.0 pg [facility] MCHC (RBC) [Mass/Vol] 34.5 g/dL 30.5 - 36.0 g/dL [facility] MCV (RBC) [Entitic vol] 88.2 fL 80.0 - 100.0 fL [facility] Monocytes (Bld) [#/Vol] 0.62 10*3/uL [facility] Monocytes/100 WBC (Bld) 8.8 % [facility] Neutrophils (Bld) [#/Vol] 4.34 10*3/uL [facility] Neutrophils/100 WBC (Bld) 62.0 % [facility] Nucleated RBC (Bld) [#/Vol] [facility] Nucleated RBC/100 WBC (Bld) [Ratio] 0.0 % /100 WBC [facility] Platelet mean volume (Bld) [Entitic vol] 10.0 fL 9.0 - 12.7 fL [facility] Platelets (Bld) [#/Vol] 126 10*3/uL Low [facility] RBC (Bld) [#/Vol] 4.99 10*6/uL 4.20 - 6.0 0 m/uL [facility] WBC (Bld) [#/Vol] 7.01 10*3/uL [facility] VITAMIN D 25 HYDROXYon 12-21 25-hydroxyvitamin D3 [Mass/Vol] 47.9 ng/mL 31.0 - 80.0 ng/mL [facility] Comment on above: Classification of 25 [place] Vitamin D status: Deficiency/Insufficiency: < or = 30 ng/ml. Sufficiency/Optimal Levels: 31-80 ng/mL Toxicity: > 100 ng/mL. Test performed by chemiluminescent immunoassay. CBC W Auto Differential pane l (Bld)on 12-06-2022 Basophils (Bld) [#/Vol] 0.03 10*3/uL <0.11 k/uL [facility] Basophils/100 WBC (Bld) 0.4 % C [facility] Differential cell count method Nom (Bld) Auto [facility] Eosinophils (Bld) [#/Vol] 0.23 10*3/uL <0.46 k/uL [facility] Eosinophils/100 WBC (Bld) 3.3 % [facility] Erythrocyte distribution width (RBC) [Ratio] 16.5 % High 11.5 - 15.0 % [facility] Hematocrit (Bld) [Volume fraction] 38.5 % Low 39.0 - 51.0 % [facility] Hemoglobin (Bld) [Mass/Vol] 12.2 g/dL Low 13.0 - 17.0 g/dL [facility] Immature granulocytes (Bld) [#/Vol] 0.03 10*3/uL <0.10 k/uL [facility] Immature granulocytes/100 WBC (Bld) 0.4 % [facility] Lymphocytes (Bld) [#/Vol] 1.41 10*3/uL 1.00 - 4.00 k/uL [facility] Lymphocytes/100 WBC (Bld) 20.5 % [facility] MCH (RBC) [Entitic mass] 25.6 pg Low 26.0 - 34.0 pg [facility] MCHC (RBC) [Mass/Vol] 31.7 g/dL 30.5 - 36.0 g/dL [facility] MCV (RBC) [Entitic vol] 80.7 fL 80.0 - 100.0 fL [facility] Monocytes (Bld) [#/Vol] 0.75 10*3/uL <0.87 k/uL [facility] Monocytes/100 WBC (Bld) 10.9 % C [facility] Neutrophils (Bld) [#/Vol] 4.43 10*3/uL 1.45 - 7.50 k/uL [facility] Neutrophils/100 WBC (Bld) 64.5 % [facility] Nucleated RBC (Bld) [#/Vol] <0.01 k/uL [facility] Nucleated RBC/100 WBC (Bld) [Ratio] 0.0 /100 WBC [facility] Platelet mean volume (Bld) [Entitic vol] 10.0 fL 9.0 - 12.7 fL [facility] Platelets (Bld) [#/Vol] 174 10*3/uL 150 - 400 k/uL [facility] RBC (Bld) [#/Vol] 4.77 10*6/uL 4.20 - 6.0 0 m/uL [facility] WBC (Bld) [#/Vol] 6.88 10*3/uL 3.70 - 11.00 k/uL [facility] Comprehensive metabolic 2000 panelon 12-06-2022 Albumin [Mass/Vol] 4.1 g/dL 3.9 - 4.9 g/dL [facility] ALP [Catalytic activity/Vol] 97 U/L 38 - 113 U/L [facility] ALT [Catalytic activity/Vol] 14 U/L 10 - 54 U/L [facility] Anion gap [Moles/Vol] 8 mmol/L Low 9 - 18 mmol/L [facility] AST [Catalytic activity/Vol] 16 U/L 14 - 40 U/L [facility] Bilirubin [Mass/Vol] 0.4 mg/dL 0.2 - 1 .3 mg/dL [facility] Calcium [Mass/Vol] 10.1 mg/dL 8.5 - 10. 2 mg/dL [facility] Chloride [Moles/Vol] 104 mmol/L 97 - 10 5 mmol/L [facility] CO2 [Moles/Vol] 26 mmol/L 22 - 30 mmol/L [facility] Creatinine [Mass/Vol] 1.24 mg/dL High 0.73 - 1.22 mg/dL [facility] Estimated Glomerular Filtration Rate 58 mL/min/1.73m Low >=60 mL/min/1.73 m [facility] Glucose [Mass/Vol] 84 mg/dL 74 - 99 mg/dL [facility] Potassium [Moles/Vol] 4.3 mmol/L 3.7 - 5.1 mmol/L [facility] Protein [Mass/Vol] 7.0 g/dL 6.3 - 8.0 g/dL [facility] Sodium [Moles/Vol] 138 mmol/L 136 - 144 mmol/L [facility] Urea nitrogen [Mass/Vol] 18 mg/dL 9 - 24 mg/dL [facility] FERRITIN BLDon 12-06-2022 Ferritin [Mass/Vol] 28.5 ng/mL Low 30.3 - 565.7 ng/mL [facility] Iron and Iron binding capaci ty panelon 12-06-2022 Iron [Mass/Vol] 39 ug/dL Low 41 - 186 ug/dL [facility] Iron binding capacity [Mass/Vol] 381 ug/dL 232 - 386 ug/dL [facility] Iron/TIBC [Molar ratio] 10.2 % Low 15.0 - 57.0 % [facility] PSA/PROSTSPECAG SCRNon 12-06 Prostate specific Ag [Mass/Vol] 1.90 ng/mL <2.60 ng/mL [facility] TSH BLDon 12-06-2022 TSH Qn 1.980 m[IU]/L 0.270 - 4.200 mIU/L [facility] VITAMIN B12 BLOODon 12-07-19 Cobalamin (Vitamin B12) [Mass/Vol] 911 pg/mL 232 - 1,245 pg/mL [facility] VITAMIN D 25 HYDROXYon 12-06 25-hydroxyvitamin D3 [Mass/Vol] 57.5 ng/mL 31.0 - 80.0 ng/mL [facility] CBC panel Auto (Bld)on 06-18 Erythrocyte distribution width (RBC) [Ratio] 14.5 % 11.5 - 15.0 % [facility] Hematocrit (Bld) [Volume fraction] 29.4 % Low 39.0 - 51.0 % [facility] Hemoglobin (Bld) [Mass/Vol] 10.1 g/dL Low 13.0 - 17.0 g/dL [facility] MCH (RBC) [Entitic mass] 30.6 pg 26.0 - 34.0 pg [facility] MCHC (RBC) [Mass/Vol] 34.4 g/dL 30.5 - 36.0 g/dL [facility] MCV (RBC) [Entitic vol] 89.1 fL 80.0 - 100.0 fL [facility] Nucleated RBC (Bld) [#/Vol] 0.02 10*3/uL High <0.01 k/uL [facility] Platelet mean volume (Bld) [Entitic vol] 10.3 fL 9.0 - 12.7 fL [facility] Platelets (Bld) [#/Vol] 168 10*3/uL 150 - 400 k/uL [facility] RBC (Bld) [#/Vol] 3.30 10*6/uL Low 4.20 - 6.0 0 m/uL [facility] WBC (Bld) [#/Vol] 9.59 10*3/uL 3.70 - 11.00 k/uL [facility] Absolute lymphocyte counton 06-15-2022 Lymphocytes Auto (Unsp spec) [#/Vol] 1.01 10*3/uL 0.83-4.51 [facility] Work Phone: Basophil percentageon 2021 Basophils/100 WBC (Bld) 0.2 % 0-1 W [facility] Work Phone: Eosinophils/100 WBC (Bld) 0.9 % 0-5 [facility] Work Phone: Neutrophils (Bld) [#/Vol] 6.1 10*3/uL 2.0-7.7 [facility] Work Phone: Neutrophils/100 WBC (Bld) 75.6 % 47-70 [facility] Work Phone: WBC (Bld) [#/Vol] 8.1 10*3/uL 4.4-11.0 [facility] Work Phone: Chloride [Moles/Vol] 111 mmol/L 98-107 [facility] Work Phone: Glucose [Mass/Vol] 123 mg/dL 74-106 [facility] Work Phone: Comment on above: Fasting Glucose resu lt from 100 to 125 mg/dL suggests IMPAIRED HOMEOSTASIS per A.D.A. criteria. Potassium [Moles/Vol] 3.5 mmol/L 3.5-5.1 [facility] Work Phone: Sodium [Moles/Vol] 141 mmol/L 136-145 [facility] Work Phone: [phone] Blood erythrocytes count (nu mber/volume)on 06-15-2022 RBC (Bld) [#/Vol] 3.03 10*6/uL 4.6-6.2 [facility]: Blood hemoglobin measurement (mass/volume)on 06-15-2022 Hemoglobin (Bld) [Mass/Vol] 9.0 g/dL 13.0-16.5 [facility] Work Phone: Blood lymphocytes/100 leukoc yteson 06-15-2022 Lymphocytes/100 WBC (Bld) 12.4 % 19-41 [facility] Work Phone: Blood monocytes/100 leukocyt eson 06-15-2022 Monocytes/100 WBC (Bld) 10.3 % 0-10 [facility] Work Phone: Blood platelet mean volumeon 06-15-2022 Platelet mean volume (Bld) [Entitic vol] 9.2 fL 6.2-12.0 [facility] Work Phone: Determination of erythrocyte mean corpuscular volume (MCV)on 06-15-2022 MCV (RBC) [Entitic vol] 88.1 fL 80-94 [facility] Work Phone: Hematocrit Auto (Bld) [Volum e fraction]on 06-15-2022 Hematocrit (Bld) [Volume fraction] 26.7 % 40-54 [facility] Work Phone: Laboratory - Chemistry and C hemistry - challengeon 06-15-2022 CO2 [Moles/Vol] 26.0 mmol/L 21.0-32.0 [facility] Work Phone: Urea nitrogen/Creatinine [Mass ratio] 38.5 mg/mg 10-20 [facility] Work Phone: Laboratory - Hematology and Cell countson 06-15-2022 Erythrocyte distribution width (RBC) [Entitic vol] 44.9 fL 35.1-43.9 [facility] Work Phone: Erythrocyte distribution width (RBC) [Ratio] 14.1 % 11.6-14.6 [facility] Work Phone: Immature granulocytes/100 WBC (Bld) 0.600 % 0.0-0.9 [facility] Work Phone: Comment on above: IG% - Immature Granu locytes (promyelocytes, myelocytes and metamyelocytes) > 1% indicates that a LEFT SHIFT is Present. MCH (RBC) [Entitic mass] 29.7 pg 27.0-32.0 [facility] Work Phone: Nucleated RBC/100 WBC (Bld) [Ratio] 0 % 0-5 [facility] Work Phone: MCHC Auto (RBC) [Mass/Vol]on 06-15-2022 MCHC (RBC) [Mass/Vol] 33.7 g/dL 32-36 [facility] Work Phone: No Panel Informationon 06-15 Estimated Creatinine Clearance Calc 46.34 ml/min [facility] Work Phone: Estimated GFR (MDRD) Amer 83 mL/min >60 [facility] Work Phone: Comment on above: GFR Calc Estimated GFR (MDRD) Non-Af Amer 69 mL/min >60 [facility] Work Phone: Comment on above: Non- GFR Calc Platelets bldon 06-15-2022 Platelets (Bld) [#/Vol] 109 10*3/uL 150-450 [facility] Work Phone: Serum or plasma calcium kimmie urement (mass/volume)on 06-15-2022 Calcium [Mass/Vol] 8.5 mg/dL 8.5-10.1 [facility] Work Phone: Serum or plasma creatinine m easurement (mass/volume)on 06-15-2022 Creatinine [Mass/Vol] 1.09 mg/dL 0.70-1.30 [facility] Work Phone: Comment on above: The validity of the calculated GFR & GFRAA in patients over 70 years has not been determined. Clinical correlation is essential. Serum or plasma urea nitroge n measurement (mass/volume)on 06-15-2022 Urea nitrogen [Mass/Vol] 42 mg/dL 7-18 [facility] Work Phone: Thin prep Papanicolaou smear with manual screeningon 06-15-2022 Thin prep Papanicolaou smear with manual screening 4 5-15 [facility] Work Phone: Basophil percentageon 2021 Basophil percentage 2.2 mg/dL 2.5-4.9 [facility] Work Phone: No Panel Informationon 06-14 Thyroid Stimulating Hormone (TSH) 0.56 uIU/mL 0.358-3.74 [facility] Work Phone: Review by pathologiston 05-26 Pathologist review Xu (Unsp spec) [Interp] Reviewed [facility] Work Phone: Comment on above: Previous reported re sult: Candace jackson Edited by: BAIRON on 06/14/22:1324Neutrophilic leukocytosis.Normocytic anemia.Clinical correlation suggested.Devon Hodgson D.O. 06/14/22 AMENDED REPORT 06/14/22 1324 PATH REV previously reported as: Candace jackson Absolute lymphocyte counton 06-13-2022 Lymphocytes Auto (Unsp spec) [#/Vol] 1.16 10*3/uL 0.83-4.51 [facility] Work Phone: Basophil percentageon 2021 Basophil percentage 0 SEEN /hpf 0-5 [facility] Work Phone: [phone] Basophils/100 WBC (Bld) 0.1 % 0-1 [facility] Work Phone: [phone] Bilirubin [Mass/Vol] 1.00 mg/dL 0.20-1.00 [facility] Work Phone: [phone] Comment on above: For patients on eltr ombopag therapy, use of Dimension [place] TBIL is not recommended. Chloride [Moles/Vol] 98 mmol/L 98-107 [facility] Work Phone: Eosinophils/100 WBC (Bld) 0.0 % 0-5 [facility] Work Phone: Glucose [Mass/Vol] 178 mg/dL 74-106 [facility] Work Phone: Comment on above: Fasting Glucose resu lt greater than or equal to 126 mg/dL suggests DIABETES MELLITUS per A.D.A. criteria. Neutrophils (Bld) [#/Vol] 14.4 10*3/uL 2.0-7.7 [facility] Work Phone: Neutrophils/100 WBC (Bld) 85.3 % 47-70 [facility] Work Phone: Potassium [Moles/Vol] 4.5 mmol/L 3.5-5.1 [facility] Work Phone: Comment on above: Moderate Hemolysis, Result may be falsely increased. Protein [Mass/Vol] 7.4 g/dL 6.4-8.2 [facility] Work Phone: Sodium [Moles/Vol] 136 mmol/L 136-145 [facility] Work Phone: WBC (Bld) [#/Vol] 16.9 10*3/uL 4.4-11.0 [facility] Work Phone: Bilirubin Test strip Ql (U)o n 06-13-2022 Bilirubin Ql (U) Negative Negative [facility] Work Phone: Blood erythrocytes count (nu mber/volume)on 06-13-2022 RBC (Bld) [#/Vol] 4.89 10*6/uL 4.6-6.2 [facility] Work Phone: Blood hemoglobin measurement (mass/volume)on 06-13-2022 Hemoglobin (Bld) [Mass/Vol] 14.5 g/dL 13.0-16.5 [facility] Work Phone: Blood lymphocytes/100 leukoc yteson 06-13-2022 Lymphocytes/100 WBC (Bld) 6.9 % 19-41 [facility] Work Phone: Blood monocytes/100 leukocyt eson 06-13-2022 Monocytes/100 WBC (Bld) 7.2 % 0-10 [facility] Work Phone: Blood platelet mean volumeon 06-13-2022 Platelet mean volume (Bld) [Entitic vol] 9.3 fL 6.2-12.0 [facility] Work Phone: Determination of erythrocyte mean corpuscular volume (MCV)on 06-13-2022 MCV (RBC) [Entitic vol] 87.1 fL 80-94 [facility] Work Phone: Hematocrit Auto (Bld) [Volum e fraction]on 06-13-2022 Hematocrit (Bld) [Volume fraction] 42.6 % 40-54 [facility] Work Phone: INR in Blood by Coagulation assayon 06-13-2022 INR Coag (Bld) [Relative time] 1.2 {INR} [facility] Work Phone: Ketones Test strip Ql (U)on 06-13-2022 Ketones Ql (U) 15 mg/dl Negative [facility] Work Phone: Laboratory - Chemistry and C hemistry - challengeon 06-13-2022 ALP [Catalytic activity/Vol] 88 U/L 45-117 [facility] Work Phone: ALT [Catalytic activity/Vol] 18 U/L 16-61 [facility] Work Phone: [phone] CO2 [Moles/Vol] 29.0 mmol/L 21.0-32.0 [facility] Work Phone: Globulin (S) [Mass/Vol] 3.6 g/dL 2.2-4.2 [facility] Work Phone: [phone] Lipase [Catalytic activity/Vol] 46 U/L 73-393 [facility] Work Phone: Magnesium [Mass/Vol] 2.2 mg/dL 1.6-2.6 [facility] Work Phone: Comment on above: Moderate Hemolysis, Result may be falsely increased. Urea nitrogen/Creatinine [Mass ratio] 30.3 mg/mg 06-13 [facility] Work Phone: Laboratory - Coagulationon 1 PT Coag (PPP) [Time] 15.0 s 11.7-14.9 [facility] Work Phone: Laboratory - Hematology and Cell countson 06-13-2022 Erythrocyte distribution width (RBC) [Entitic vol] 44.2 fL 35.1-43.9 [facility] Work Phone: Erythrocyte distribution width (RBC) [Ratio] 13.9 % 11.6-14.6 [facility] Work Phone: Immature granulocytes/100 WBC (Bld) 0.500 % 0.0-0.9 [facility] Work Phone: Comment on above: IG% - Immature Granu locytes (promyelocytes, myelocytes and metamyelocytes) > 1% indicates that a LEFT SHIFT is Present. MCH (RBC) [Entitic mass] 29.7 pg 27.0-32.0 [facility] Work Phone: Nucleated RBC/100 WBC (Bld) [Ratio] 0 % 0-5 [facility] Work Phone: MCHC Auto (RBC) [Mass/Vol]on 06-13-2022 MCHC (RBC) [Mass/Vol] 34.0 g/dL 32-36 [facility] Work Phone: Mucus LM Ql (Urine sed)on Mucus Ql (Urine sed) 0 SEEN /hpf [facility] Work Phone: Nitrite Test strip Ql (U)on 06-13-2022 Nitrite Ql (U) Negative Negative [facility] Work Phone: No Panel Informationon 06-13 Estimated Creatinine Clearance Calc 36.09 ml/min [facility] Work Phone: Estimated GFR (MDRD) Amer 60 mL/min >60 [facility] Work Phone: Comment on above: GFR Calc Estimated GFR (MDRD) Non-Af Amer 49 mL/min >60 [facility] Work Phone: Comment on above: Non- GFR Calc Platelets bldon 06-13-2022 Platelets (Bld) [#/Vol] 205 10*3/uL 150-450 [facility] Work Phone: Protein Test strip Ql (U)on 06-13-2022 Protein Ql (U) 30 mg/dl Negative [facility] Work Phone: Serum or plasma albumin kimmie urement (mass/volume)on 06-13-2022 Albumin [Mass/Vol] 3.8 g/dL 3.2-5.0 [facility] Work Phone: Serum or plasma albumin/glob ulin mass ratioon 06-13-2022 Albumin/Globulin [Mass ratio] 1.1 {ratio} 0.9-2.4 [facility] Work Phone: Serum or plasma calcium kimmie urement (mass/volume)on 06-13-2022 Calcium [Mass/Vol] 9.7 mg/dL 8.5-10.1 [facility] Work Phone: Serum or plasma creatinine m easurement (mass/volume)on 06-13-2022 Creatinine [Mass/Vol] 1.45 mg/dL 0.70-1.30 [facility] Work Phone: Comment on above: The validity of the calculated GFR & GFRAA in patients over 70 years has not been determined. Clinical correlation is essential. Serum or plasma urea nitroge n measurement (mass/volume)on 06-13-2022 Urea nitrogen [Mass/Vol] 44 mg/dL 7-18 [facility] Work Phone: Squamous epithelial cells de tection in urine sediment by light microscopyon 06-13-2022 Epithelial cells.squamous LM Ql (Urine sed) 0-5 SEEN /hpf 0-5 [facility] Work Phone: Thin prep Papanicolaou smear with manual screeningon 06-13-2022 Thin prep Papanicolaou smear with manual screening 23 U/L 15-37 [facility] Work Phone: Comment on above: Moderate Hemolysis, Result may be falsely increased. Thin prep Papanicolaou smear with manual screening 9 5-15 [facility] Work Phone: Urine blood detectionon --2021 RBC Ql (U) Negative Negative [facility] Work Phone: RBC Ql (U) 0 SEEN /hpf 0-5 [facility] Work Phone: Urine clarityon 06-13-2022 Clarity (U) Clear Clear [facility] Work Phone: Urine color determinationon 06-13-2022 Color (U) Yellow Yellow [facility] Work Phone: Urine glucose detectionon Glucose Ql (U) 50 mg/dl Normal [facility] Work Phone: Urine leukocyte esterase det ection by dipstickon 06-13-2022 Leukocyte esterase Test strip Ql (U) Negative Negative [facility] Work Phone: Urine pHon 06-13-2022 pH (U) 8.0 [pH] 5.0 - 8.0 [facility] Work Phone: Urine sediment bacteria coun t by microscopy (number/high power field)on 06-13-2022 Bacteria LM.HPF (Urine sed) [#/Area] 1 /[HPF] None Seen [facility] Work Phone: Urine specific gravity measu rementon 06-13-2022 Specific gravity (U) [Rel density] 1.010 1.002-1.030 [facility] Work Phone: Urobilinogen Auto test strip Ql (U)on 06-13-2022 Urobilinogen Ql (U) Normal mg/dl Normal [facility] Work Phone: ANES POSTPROC EVALon 022 ANES POSTPROC EVAL HNO ID: [id number] Author: Fernando Salinas MD Service: Anesthesiology Author Type: Anesthesiologist Type: Anesthesia Postprocedure Evaluation Filed: 06/12/2022 1:06 PM Note Text: POST ANESTHESIA EVALUATION NOTE : 1940 Procedure Summary Date: 06/12/22 Room / Location: [place] [address] / [place] OR Anesthesia Start: 1140 Anesthesia Stop: 1300 [...] June 12, 2022 TIME: 1:06 PM CSN: [id number] [facility] ANES PRE-OPon 06-12-2022 ANES PRE-OP HNO ID: [id number] Author: Fernando Salinas MD Service: Anesthesiology Author [...] June 12, 2022 TIME: 10:26 AM CSN: [id number] [facility] HISTORY PHYSICALon HISTORY PHYSICAL HNO ID: [id number] Author: Florencio Tesfaye MD Service: General Surgery [...] Macular degeneration NSTEMI (non-ST elevated myocardial infarction) ([facility]) 10/28/2019 Osteoarthritis of left hip Paresthesia PMH [...] 07/28/07 DIR RPR ANEURYSM ABDOMINAL AORTA 04/20/2011 [facility] EYLEA (AFLIBERCEPT) 2MG INTRAVITREAL INJECTION OD [...] Tobacco Use Smokin (more content not included)... [facility] OPERATIVE NOon 06-12-2022 OPERATIVE NO HNO ID: [id number] Author: Florencio Tesfaye MD Service: General Surgery Author Type: Physician Type: Operative Report Filed: 06/12/2022 12:59 PM Note Text: OPERATIVE/PROCEDURE REPORT LOG ID: [id number] SURGERY/PROCEDURE DATE: 06/12/2022 INCISION/PROCEDURE START TIME: 12:00 PM INCISION CLOSE/PROCEDURE END TIME: 12:49 PM SURGEON(S)/PROCEDURALI ST(S) AND MANAGER PHYSICAL(S): Surgeon(s) and Role: * Florencio Tesfaye MD - Primary Nurse Practitioner: Nuria Banks APRN.CT TECH Physician Recruiting Consultant: Indy Mosqueda PA-C SURGERY/PROCEDURE(S): Laparoscopic bilateral inguinal [...] the fascia the umbilical port with a [id number] stitch of 0 Vicryl. Skin incisions were closed with subcuticular stitches of 4-0 Monocryl. Steri-Strips were applied sterile dressings were applied patient tolerated the procedure well. Nuria Banks CNP was my assistant professor of theater. She assisted with retraction, visualization and performed [...] DATE: June 12, 2022 TIME: 12:53 PM [facility] Basic metabolic 2000 panelon 05-31-2022 Anion gap [Moles/Vol] 8 mmol/L Low 9 - 18 mmol/L [facility] Calcium [Mass/Vol] 9.2 mg/dL 8.5 - 10. 2 mg/dL [facility] Chloride [Moles/Vol] 104 mmol/L 97 - 10 5 mmol/L [facility] CO2 [Moles/Vol] 24 mmol/L 22 - 30 mmol/L [facility] Creatinine [Mass/Vol] 1.15 mg/dL 0.73 - 1.22 mg/dL [facility] Estimated Glomerular Filtration Rate 63 mL/min/1.73m >=60 mL/min/1.73 m [facility] Glucose [Mass/Vol] 126 mg/dL High 74 - 99 mg/dL [facility] Potassium [Moles/Vol] 4.1 mmol/L 3.7 - 5.1 mmol/L [facility] Sodium [Moles/Vol] 136 mmol/L 136 - 144 mmol/L [facility] Urea nitrogen [Mass/Vol] 25 mg/dL High 9 - 24 mg/dL [facility] CBC W Auto Differential pane l (Bld)on 05-31-2022 Abs Immature Gran <0.10 k/uL [facility] Basophils (Bld) [#/Vol] 0.03 10*3/uL <0.11 k/uL [facility] Basophils/100 WBC (Bld) 0.4 % C [facility] Differential cell count method Nom (Bld) Auto [facility] Eosinophils (Bld) [#/Vol] 0.32 10*3/uL <0.46 k/uL [facility] Eosinophils/100 WBC (Bld) 4.6 % [facility] Erythrocyte distribution width (RBC) [Ratio] 13.8 % 11.5 - 15.0 % [facility] Hematocrit (Bld) [Volume fraction] 40.4 % 39.0 - 51.0 % [facility] Hemoglobin (Bld) [Mass/Vol] 14.2 g/dL 13.0 - 17.0 g/dL [facility] Immature Gran % 0.3 % [facility] Lymphocytes (Bld) [#/Vol] 1.58 10*3/uL 1.00 - 4.00 k/uL [facility] Lymphocytes/100 WBC (Bld) 22.9 % [facility] MCH (RBC) [Entitic mass] 30.3 pg 26.0 - 34.0 pg [facility] MCHC (RBC) [Mass/Vol] 35.1 g/dL 30.5 - 36.0 g/dL [facility] MCV (RBC) [Entitic vol] 86.1 fL 80.0 - 100.0 fL [facility] Monocytes (Bld) [#/Vol] 0.64 10*3/uL <0.87 k/uL [facility] Monocytes/100 WBC (Bld) 9.3 % [facility] Neutrophils (Bld) [#/Vol] 4.31 10*3/uL 1.45 - 7.50 k/uL [facility] Neutrophils/100 WBC (Bld) 62.5 % [facility] Nucleated RBC (Bld) [#/Vol] <0.01 k/uL [facility] Nucleated RBC/100 WBC (Bld) [Ratio] 0.0 /100 WBC [facility] Platelet mean volume (Bld) [Entitic vol] 9.2 fL 9.0 - 12.7 fL [facility] Platelets (Bld) [#/Vol] 126 10*3/uL Low 150 - 400 k/uL [facility] RBC (Bld) [#/Vol] 4.69 10*6/uL 4.20 - 6.0 0 m/uL [facility] WBC (Bld) [#/Vol] 6.90 10*3/uL 3.70 - 11.00 k/uL [facility] Basophil percentageon 2021 Creatinine [Mass/Vol] 1.3 mg/dL 0.70-1.30 [facility] Work Phone: Laboratory - Chemistry and C hemistry - challengeon 01-01-2022 GFR/1.73 sq M.predicted among non-blacks MDRD (S/P/Bld) [Vol rate/Area] 54.0000 mL/min/{1.73_m2} >60 [facility] Work Phone: VL AORTA/IVC/ILIAC/BYPASS GR AFT COMPLETEOrdered By: Shailesh Stone on 06-20-2021 [facility] ----- Abdominal Aortic Endograft Report Patient DO ShilohB: 1940 Study 06/20/2021 Name: Todd Presley (81yrs) Date: Patient [id number] Age: 81 Account: [id number] ID: Gender: M Loc: BP: Ordering Physician: Shailesh Stone Blueprint Assembler: SHERWIN MaharajT Interpreting Physician: Prachi López MD ----- Location: [address] ----- Indications: AAA without rupture. ----- [...] supine position. Images were obtained using a [employer] E9 vascular ultrasound machine. The study was [...] + + + (more content not included)... [facility] Work Phone: [place], [facility] Incoming Cardiology Results From [employer] - 06/20/2021 5:22 PM EDT [facility] ----- Abdominal Aortic Endograft Report Patient Shiloh, : 1940 Study 06/20/2021 Name: Todd Presley (yr) Date: Patient [id number] Age: 81 Account: [id number] ID: Gender: M Loc: BP: Ordering Physician: Shailesh Stone Blueprint Assembler: Valerie Ulloa RVT Interpreting Physician: Prachi López MD ----- Location: [address] ----- Indications: AAA without rupture. ----- [...] supine position. Images were obtained using a [employer] E9 vascular ultrasound machine. The study was [...] ----+ +Left limb+ (more content not included)... 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 Patient Name: TODD MATAMOROS [facility]#: [id number] Ultrasound ACCESSION EXAM DATE/TIME PROCEDURE ORDERING PROVIDER [id number] 06/20/2021 10:18 EDT VL Aorta Iliac Duplex w/ [id number] -SHAILESH STONE Stent Graft CPT code 15639 [id number] Reason For Exam (VL Aorta Iliac Duplex w/ Stent Graft) Presence of other vascular implants and grafts Report [facility] ----- Abdominal Aortic Endograft Report Patient DO ShilohB: 1940 Study 06/20/2021 Name: Todd Presley (81yrs) Date: Patient [id number] Age: 81 Account: [id number] ID: Gender: M Loc: BP: Ordering Physician: Shailesh Stone Blueprint Assembler: Valerie Ulloa RVT Interpreting Physician: Prachi Lópze MD ----- Location: [address] ----- Indications: AAA without rupture. ----- [...] supine position. Images were obtained using a [employer] E9 vascular ultrasound machine. The study was [...] +Artery + (more content not included)... Normal [employer] [facility] VL Aorta IVC Bypass [place] 06-02-2020 [facility] ----- Abdominal Aortic Endograft Report Ordering Physician: John Clark MD Blueprint Assembler: Mae Brito [facility] Interpreting Physician: Fernando Walker MD ----- Location: [address] ----- Indications: AAA without rupture, history [...] supine position. Images were obtained using a [employer] E9 vascular ultrasound machine. ----- Arterial pressure [...] signed by Fernando Walker MD 06/02/2020 14:26 [facility] [place], [place], [facility] Cardiology Results From [employer] - 06/02/2020 2:26 PM EDT [facility] ----- Abdominal Aortic Endograft Report Ordering Physician: John Clark MD Blueprint Assembler: SHERWIN JayT Interpreting Physician: Fernando Walker MD ----- Location: [address] ----- Indications: AAA without rupture, history [...] supine position. Images were obtained using a [employer] E9 vascular ultrasound machine. ----- Arterial pressure [...] signed by Fernando Walker MD 06/02/2020 14:26 [place], [place] Clinical Summary: HMSPatient IDon 05-12-2018 OOP Invalid Interpretation Code [facility] Work Phone: Office Visit: Follow-up by Mann peng: 1on 05-12-2018 NEGATED: Highlighted rowProtein mass conc Done Invalid Interpretation Code [facility] Work Phone: Lab Report: Lipid Profileon 08-12-2017 Cholesterol 112 mg/dL Invalid Interpretation Code 200 [facility] Work Phone: HDL Cholesterol 35 mg/dL Low [facility] Work Phone: LDL Cholesterol 45 mg/dL Invalid Interpretation Code 0-130 [facility] Work Phone: Triglyceride 162 mg/dL Invalid Interpretation Code [facility] Work Phone: very low density lipoproteins 32 mg/dL Invalid Interpretation Code 5-40 [facility] Work Phone: Lab Report: Liver Profileon 08-12-2017 Alanine aminotransferase (ALT) 17 U/L Invalid Interpretation Code 12-78 [facility] Work Phone: Albumin 3.6 g/dL Invalid Interpretation Code 3.4-5.0 [employer] Work Phone: [phone] Alkaline phosphatase (ALP) 145 U/L High 45-117 [employer] Work Phone: [phone] Aspartate aminotransferase (AST) 15 U/L Invalid Interpretation Code 15-37 [employer] Work Phone: [phone] Bilirubin (direct) 0.14 mg/dL Invalid Interpretation Code 0.00-0.30 [employer] Work Phone: [phone] Bilirubin (total) 0.50 mg/dL Invalid Interpretation Code 0.20-1.00 [employer] Work Phone: [phone] Globulin 4.4 g/dL High 2.2-4.2 [employer] Work Phone: [phone] Protein 8.0 g/dL Invalid Interpretation Code 6.4-8.2 [employer] Work Phone: [phone] Office Visiton 02-03-2017 Documentation of current medications (procedure) Done Invalid Interpretation Code [employer] Work Phone: [phone] Fall risk assessment No Invalid Interpretation Code [employer] Work Phone: [phone] Protein mass conc Done [employer] Work Phone: [phone] Chart Maintenanceon 02-02-20 17 Left ventricular Ejection fraction 65 % Invalid Interpretation Code [employer] Phone: [phone] Lab Report: Lipid Profileon 01-31-2017 Cholesterol 127 mg/dL Invalid Interpretation Code 200 [employer] Work Phone: [phone] HDL Cholesterol 40 mg/dL Invalid Interpretation Code [employer] Work Phone: [phone] LDL Cholesterol 54 mg/dL Invalid Interpretation Code 0-130 [employer] Work Phone: [phone] Triglyceride 166 mg/dL Invalid Interpretation Code [employer] Work Phone: [phone] very low density lipoproteins 33 mg/dL Invalid Interpretation Code 5-40 [employer] Work Phone: [phone] Lab Report: Liver Profileon 01-31-2017 Alanine aminotransferase (ALT) 26 U/L Invalid Interpretation Code 12-78 [employer] Work Phone: [phone] Albumin 3.8 g/dL Invalid Interpretation Code 3.4-5.0 [facility] Work Phone: [phone] Alkaline phosphatase (ALP) 132 U/L High 45-117 [facility] Work Phone: [phone] ALP enzyme act/vol (Bld) 132 U/L High 45-117 [facility] Work Phone: [phone] Aspartate aminotransferase (AST) 16 U/L Invalid Interpretation Code 15-37 [facility] Work Phone: [phone] Bilirubin (direct) 0.19 mg/dL Invalid Interpretation Code 0.00-0.30 [facility] Work Phone: [phone] Bilirubin (total) 0.70 mg/dL Invalid Interpretation Code 0.20-1.00 [facility] Work Phone: [phone] Globulin 3.5 g/dL Invalid Interpretation Code 2.3-3.5 [facility] Work Phone: [phone] Globulin mass conc (S) 3.5 g/dL 2.3-3.5 [facility] Work Phone: [phone] Protein 7.3 g/dL Invalid Interpretation Code 6.4-8.2 [facility] Work Phone: [phone] Office Visiton 07-30-2016 Documentation of current medications (procedure) Done Invalid Interpretation Code [facility] Work Phone: [phone] Protein mass conc Done [facility] Work Phone: [phone] Tobacco smoking status TXIS Tobacco smoking status TXIS Invalid Interpretation Code [facility] Work Phone: [phone] Tobacco smoking status [facility] Former smoker [facility] Work Phone: [phone] Tobacco use [facility] Former smoker Invalid Interpretation Code [facility] Work Phone: [phone] Lab Report: Lipid Profileon 07-01-2016 Cholesterol in HDL mass conc 31 mg/dL Low [facility] Work Phone: [phone] Cholesterol in LDL mass conc 29 mg/dL 0-130 [facility] Work Phone: [phone] Cholesterol mass conc 106 mg/dL [address] [facility] Work Phone: [phone] Lipoprotein.pre-beta mass conc 46 mg/dL High 5-40 [facility] Work Phone: [phone] Triglyceride mass conc 232 mg/dL High [facility] Work Phone: [phone] Lab Report: Liver Profileon 07-01-2016 Albumin mass conc 4.0 g/dL 3.4-5.0 [facility] Work Phone: [phone] ALP enzyme act/vol (Bld) 137 U/L High 50-136 [facility] Work Phone: [phone] ALT enzyme act/vol 25 U/L 12-78 [facility] Work Phone: [phone] AST enzyme act/vol 23 U/L 15-37 [facility] Work Phone: [phone] Bilirubin mass conc 0.70 mg/dL 0.20-1.00 [facility] Work Phone: [phone] Bilirubin.direct mass conc 0.15 mg/dL 0.00-0.30 [facility] Work Phone: [phone] Globulin mass conc (S) 3.3 g/dL 2.3-3.5 [facility] Work Phone: [phone] Protein mass conc 7.3 g/dL 6.4-8.2 [facility] Work Phone: [phone] Office Visiton 01-02-2016 Dietary management education, guidance, and counseling (procedure) yes Invalid Interpretation Code [facility] Work Phone: [phone] Office Visiton 07-03-2015 cardiac risk group C Invalid Interpretation Code [facility] Work Phone: [phone] General cardiovascular disease 10Y risk [#] [place].D'Agostino N/A Invalid Interpretation Code [facility] Work Phone: [phone] Protein mass conc yes [facility] Work Phone: [phone] Smoking cessation education (procedure) yes Invalid Interpretation Code [facility] Work Phone: [phone] Lab Report: LIVERon 06-14-20 14 ALK 139 U/L High 50-136 [facility] Work Phone: [phone] GE use only - for [employer] import when terms are not otherwise specified 139 U/L High 50-136 [facility] [employer] Work Phone: [phone] Replaced Document: Harjit Orr 05-24-2013 EKG QRS axis 28 deg [facility] [place] Work Phone: [phone] electrocardiogram interpretation Sinus Bradycardia WITHIN NORMAL LIMITS Invalid Interpretation Code [facility] Work Phone: [phone] Interpretation Sinus Bradycardia WITHIN NORMAL LIMITS [facility] Work Phone: [phone] P Bowman 55 deg [facility] Work Phone: [phone] P wave axis, electrocardiogram 55 deg Invalid Interpretation Code [facility] [employer] Work Phone: [phone] IN Interval 138 ms [facility] [employer] Work Phone: [phone] IN interval, electrocardiogram 138 ms Invalid Interpretation Code [facility] [employer] Work Phone: [phone] Pulse (Heart Rate) 442 ms Invalid Interpretation Code [facility] [employer] Work Phone: [phone] Pulse (Heart Rate) 57 /min Invalid Interpretation Code [facility] Work Phone: [phone] QRS axis, electrocardiogram 28 deg Invalid Interpretation Code [facility] [employer] Work Phone: [phone] QRS Duration 98 ms [employer] [facility] [employer] Work Phone: [phone] QRS duration, electrocardiogram 98 ms Invalid Interpretation Code [facility] [employer] Work Phone: [phone] QT Interval new path ms [facility] [employer] Work Phone: [phone] QT interval, electrocardiogram new path ms Invalid Interpretation Code [facility] [employer] Work Phone: [phone] T Bowman 79 deg [facility] [employer] Work Phone: [phone] T wave axis, electrocardiogram 79 deg Invalid Interpretation Code [facility] [employer] Work Phone: [phone] Hemoglobin.gastrointestinal Ql ([place] fld) Gastric Occult Blood Positive [facility] Work Phone: Vital Signs Date Time Vital Sign Value Performing Clinician Facility 03-22-2025 14:16-0400 Body height 167.[address] Robel Onofre DO Work Phone[facility] 03-22-2025 14:16-0400 Body mass index (BMI) [Ratio] 29.9 kg/m2 Dr. Robel Onofre DO Work Phone: [phone] [place] [address] 03-22-2025 14:16-0400 Body weight 84.[address] Robel Onofre DO Work Phone: [phone] [place] [address] 03-22-2025 14:16-0400 Diastolic blood pressure 73 mm[Hg] Dr. Robel Onofre DO Work Phone: [phone] [place] [address] 03-22-2025 14:16-0400 Heart rate 57 /min Dr. Robel Onofre DO Work Phone: [phone] [place] [address] 03-22-2025 14:16-0400 Respiratory rate 16 /min Dr. Robel Onofre DO Work Phone: [phone] [place] [address] 03-22-2025 14:16-0400 Systolic blood pressure 149 mm[Hg] Dr. Robel Onofre DO Work Phone: [phone] [place] [address] 12-27-2024 10:58-0400 Body mass index (BMI) [Ratio] 28.23 kg/m2 Robel Onofre DO Work Phone: [facility] 12-27-2024 10:58-0400 Body temperature 98.6 [degF] Robel Onofre DO Work Phone: [facility] 12-27-2024 10:58-0400 Body weight 82.56 kg Robel Hernandezon DO Work Phone: [facility] 12-27-2024 10:58-0400 Diastolic blood pressure 70 mm[Hg] Robel Hernandezon DO Work Phone: [facility] 12-27-2024 10:58-0400 Heart rate 60 /min Robel Hernandezon DO Work Phone: [facility] 12-27-2024 10:58-0400 Respiratory rate 20 /min Robel Onofre DO Work Phone: [facility] 12-27-2024 10:58-0400 Systolic blood pressure 110 mm[Hg] Robel Onofre DO Work Phone: [facility] 12-14-2024 14:57-0400 Body temperature 97.4 [degF] Dr. Robel Onofre DO Work Phone: [facility] 12-14-2024 14:57-0400 Diastolic blood pressure 92 mm[Hg] Dr. Robel Onofre DO Work Phone: [facility] 12-14-2024 14:57-0400 Heart rate 52 /min Dr. Robel Onofre DO Work Phone: [facility] 12-14-2024 14:57-0400 Respiratory rate 18 /min Dr. Robel Onofre DO Work Phone: [facility] 12-14-2024 14:57-0400 SaO2% (BldA) [Mass fraction] 97 % Dr. Robel Onofre DO Work Phone: [facility] 12-14-2024 14:57-0400 Systolic blood pressure 174 mm[Hg] Dr. Robel Onofre DO Work Phone: [phone] [place] [address] 12-14-2024 12:40-0400 Body height 167.[address] Robel Onofre DO Work Phone: [facility] 12-14-2024 11:45-0400 Body mass index (BMI) [Ratio] 28.76 kg/m2 Asha Hernandez APRN.CT TECH Work Phone: [facility] 12-14-2024 11:45-0400 Body weight 84.1 kg Asha Hernandez HYDRAMATIC SPECIALIST.CT TECH Work Phone: [facility] 12-14-2024 11:45-0400 Diastolic blood pressure 84 mm[Hg] Asha Hernandez HYDRAMATIC SPECIALIST.CT TECH Work Phone: [facility] 12-14-2024 11:45-0400 Heart rate 54 /min Asha Hernandez APRN.CT TECH Work Phone: [facility] 12-14-2024 11:45-0400 Respiratory rate 12 /min Asha Hernandez HYDRAMATIC SPECIALIST.CT TECH Work Phone: [facility] 12-14-2024 11:45-0400 SaO2% (BldA) [Mass fraction] 98 % Asha AlvaradoAnamaria HYDRAMATIC SPECIALIST.CT TECH Work Phone: [facility] 12-14-2024 11:45-0400 Systolic blood pressure 152 mm[Hg] Asha Hernandez HYDRAMATIC SPECIALIST.CT TECH Work Phone: [facility] 06-30-2024 10:29-0500 Body mass index (BMI) [Ratio] 28.85 kg/m2 Robel Onofre DO Work Phone: [facility] 06-30-2024 10:29-0500 Body temperature 97.81 [degF] Robel Onofre DO Work Phone: [facility] 06-30-2024 10:29-0500 Body weight 84.37 kg Robel Onofre DO Work Phone: [facility] 06-30-2024 10:29-0500 Diastolic blood pressure 80 mm[Hg] Robel Onofre DO Work Phone: [facility] 06-30-2024 10:29-0500 Heart rate 64 /min Robel Onofre DO Work Phone: [facility] 06-30-2024 10:29-0500 Respiratory rate 20 /min Robel Onofre DO Work Phone: [facility] 06-30-2024 10:29-0500 Systolic blood pressure 140 mm[Hg] Robel Onofre DO Work Phone: [facility] 03-10-2024 12:21-0400 Body mass index (BMI) [Ratio] 27.74 kg/m2 Bessie Ambrocio HYDRAMATIC SPECIALIST.CT TECH Work Phone: [facility] 03-10-2024 12:21-0400 Body weight 81.1 kg Bessie Ambrocio HYDRAMATIC SPECIALIST.CT TECH Work Phone: [facility] 03-10-2024 12:21-0400 Diastolic blood pressure 78 mm[Hg] Bessie Cristóbal HYDRAMATIC SPECIALIST.CT TECH Work Phone: [facility] 03-10-2024 12:21-0400 Heart rate 55 /min Bessie Cristóbal HYDRAMATIC SPECIALIST.CT TECH Work Phone: [facility] 03-10-2024 12:21-0400 Respiratory rate 18 /min Bessie Cristóabl HYDRAMATIC SPECIALIST.CT TECH Work Phone: [facility] 03-10-2024 12:21-0400 SaO2% (BldA) [Mass fraction] 96 % Bessie Cristóbal HYDRAMATIC SPECIALIST.CT TECH Work Phone: [facility] 03-10-2024 12:21-0400 Systolic blood pressure 136 mm[Hg] Bessie Cristóbal HYDRAMATIC SPECIALIST.CT TECH Work Phone: [facility] 02-04-2024 12:48-0400 Body mass index (BMI) [Ratio] 27.67 kg/m2 Bessie Cristóbal HYDRAMATIC SPECIALIST.CT TECH Work Phone: [facility] 02-04-2024 12:48-0400 Body weight 80.92 kg Bessie Cristóbal HYDRAMATIC SPECIALIST.CT TECH Work Phone: [facility] 02-04-2024 12:48-0400 Diastolic blood pressure 80 mm[Hg] Bessie Cristóbal HYDRAMATIC SPECIALIST.CT TECH Work Phone: [facility] 02-04-2024 12:48-0400 Heart rate 52 /min Bessie Cristóbal HYDRAMATIC SPECIALIST.CT TECH Work Phone: [facility] 02-04-2024 12:48-0400 Respiratory rate 20 /min Bessie Cristóbal HYDRAMATIC SPECIALIST.CT TECH Work Phone: [facility] 02-04-2024 12:48-0400 SaO2% (BldA) [Mass fraction] 96 % Bessie Cristóbal HYDRAMATIC SPECIALIST.CT TECH Work Phone: [facility] 02-04-2024 12:48-0400 Systolic blood pressure 122 mm[Hg] Bessie Ambrocio APRNBeataCT TECH Work Phone: [facility] 12-22-2023 12:12-0400 Body mass index (BMI) [Ratio] 27.92 kg/m2 Robel Onofre DO Work Phone: [facility] 12-22-2023 12:12-0400 Body temperature 96.69 [degF] Robel Onofre DO Work Phone: [facility] 12-22-2023 12:12-0400 Body weight 81.65 kg Robel Onofre DO Work Phone: [facility] 12-22-2023 12:12-0400 Diastolic blood pressure 70 mm[Hg] Robel Onofre DO Work Phone: [facility] 12-22-2023 12:12-0400 Heart rate 64 /min Robel Onofre DO Work Phone: [facility] 12-22-2023 12:12-0400 Respiratory rate 20 /min Robel Onofre DO Work Phone: [facility] 12-22-2023 12:12-0400 Systolic blood pressure 120 mm[Hg] Robel Onofre DO Work Phone: [facility] 06-13-2023 13:19-0400 Body height 171 cm Robel Onofre DO Work Phone: [facility] 06-13-2023 13:19-0400 Body temperature 96.69 [degF] Robel Onofre DO Work Phone: [facility] 06-13-2023 13:190400 Body weight 83.92 kg Robel Onofre DO Work Phone: [facility] 06-13-2023 13:19-0400 Diastolic blood pressure 70 mm[Hg] Robel Onofre DO Work Phone: [facility] 06-13-2023 13:19-0400 Heart rate 56 /min Robel Onofre DO Work Phone: [facility] 06-13-2023 13:19-0400 Respiratory rate 24 /min Robel Onofre DO Work Phone: [facility] 06-13-2023 13:19-0400 Systolic blood pressure 136 mm[Hg] Robel Onofre DO Work Phone: [facility] 12-06-2022 09:36-0400 Body temperature 97.7 [degF] Robel Onofre DO Work Phone: [facility] 12-06-2022 09:36-0400 Body weight 82.56 kg Robel Onofre DO Work Phone: [facility] 12-06-2022 09:36-0400 Diastolic blood pressure 60 mm[Hg] Robel Onofre DO Work Phone: [facility] 12-06-2022 09:36-0400 Heart rate 60 /min Robel Onofre DO Work Phone: [facility] 12-06-2022 09:36-0400 Respiratory rate 20 /min Robel Onofre DO Work Phone: [facility] 12-06-2022 09:36-0400 Systolic blood pressure 120 mm[Hg] Robel Onofre DO Work Phone: [facility] 07-03-2022 07:49-0500 Body weight 81.56 kg Bessie Cristóbal HYDRAMATIC SPECIALIST.CT TECH Work Phone: [facility] 07-03-2022 07:49-0500 Diastolic blood pressure 80 mm[Hg] Bessie Cristóbal HYDRAMATIC SPECIALIST.CT TECH Work Phone: [facility] 07-03-2022 07:49-0500 Heart rate 55 /min Bessie Cristóbal HYDRAMATIC SPECIALIST.CT TECH Work Phone: [facility] 07-03-2022 07:49-0500 SaO2% (BldA) [Mass fraction] 98 % Bessie Cristóbal HYDRAMATIC SPECIALIST.CT TECH Work Phone: [facility] 07-03-2022 07:49-0500 Systolic blood pressure 128 mm[Hg] Bessie Cristóbal HYDRAMATIC SPECIALIST.CT TECH Work Phone: [facility] 06-15-2022 12:48-0400 Body temperature 98.5 [degF] Dr. Robel Onofre Work Phone: [facility] Work Phone: 06-15-2022 12:48-0400 Diastolic blood pressure 48 mm[Hg] Dr. Robel Onofre Work Phone: [facility] Work Phone: 06-15-2022 12:48-0400 Heart rate 63 /min Dr. Robel Onofre Work Phone: [facility] Work Phone: 06-15-2022 12:48-0400 Respiratory rate 18 /min Dr. Robel Onofre Work Phone: [facility] Work Phone: 06-15-2022 12:48-0400 SaO2% (BldA) [Mass fraction] 94 % Dr. Robel Onofre Work Phone: [facility] Work Phone: 06-15-2022 12:48-0400 Systolic blood pressure 111 mm[Hg] Dr. Robel Onofre Work Phone: [facility] Work Phone: 06-15-2022 03:54-0400 Body weight 82.[address] Robel Onofre Work Phone: [facility] Work Phone: 06-14-2022 15:08-0400 Body height [address] Robel Onofre Work Phone: [facility] Work Phone: 06-14-2022 15:08-0400 Body mass index (BMI) [Ratio] 27.2 kg/m2 Dr. Robel Onofre Work Phone: [facility] Work Phone: 06-13-2022 19:28-0400 Body temperature 99.1 [degF] Dr. Robel Onofre Work Phone: [facility] Work Phone: 06-13-2022 19:28-0400 Diastolic blood pressure 70 mm[Hg] Dr. Robel Onofre Work Phone: [facility] Work Phone: 06-13-2022 19:28-0400 Heart rate 80 /min Dr. Robel Onofre Work Phone: [facility] Work Phone: 06-13-2022 19:28-0400 Respiratory rate 20 /min Dr. Robel Onofre Work Phone: [facility] Work Phone: 06-13-2022 19:28-0400 SaO2% (BldA) [Mass fraction] 95 % Dr. Robel Onofre Work Phone: [facility] Work Phone: 06-13-2022 19:28-0400 Systolic blood pressure 152 mm[Hg] Dr. Robel Onofre Work Phone: [facility] Work Phone: 06-13-2022 16:28-0400 Body height 170.[address] Robel Onofre Work Phone: [facility] Work Phone: 06-13-2022 16:28-0400 Body mass index (BMI) [Ratio] 28.3 kg/m2 Dr. Robel Onofre Work Phone: [facility] Work Phone: 06-13-2022 16:28-0400 Body weight 82.[address] Robel Onofre Work Phone: [facility] Work Phone: 06-12-2022 13:30-0400 Diastolic blood pressure 67 mm[Hg] Florencio Tesfaye MD Work Phone: [facility] 10-19-2022 13:30-0400 Heart rate 49 /min Florencio Tesfaye MD Work Phone: [facility] 06-12-2022 13:30-0400 Respiratory rate 13 /min Florencio Tesfaye MD Work Phone: [facility] 06-12-2022 13:30-0400 SaO2% (BldA) [Mass fraction] 99 % Florencio Tesfaye MD Work Phone: [facility] 06-12-2022 13:30-0400 Systolic blood pressure 152 mm[Hg] Florencio Tesfaye MD Work Phone: [facility] 06-12-2022 13:00-0400 Body temperature 97.2 [degF] Florencio Tesfaye MD Work Phone: [facility] 06-03-2022 10:47-0400 Body weight 81.65 kg Robel Onofre DO Work Phone: [facility] 06-03-2022 10:47-0400 Diastolic blood pressure 66 mm[Hg] Robel Onofre DO Work Phone: [facility] 06-03-2022 10:47-0400 Heart rate 60 /min Robel Onofre DO Work Phone: [facility] 06-03-2022 10:47-0400 Respiratory rate 16 /min Robel Onofre DO Work Phone: [facility] 06-03-2022 10:47-0400 Systolic blood pressure 120 mm[Hg] Robel Onofer DO Work Phone: [facility] 05-31-2022 08:47-0400 Body height 170.2 cm Pacc 1 Work Phone: [facility] 05-31-2022 08:47-0400 Body temperature 97.7 [degF] Pacc 1 Work Phone: [facility] 05-31-2022 08:47-0400 Body weight 82.37 kg Pacc 1 Work Phone: [facility] 05-31-2022 08:47-0400 Diastolic blood pressure 58 mm[Hg] Pacc 1 Work Phone: [facility] 05-31-2022 08:47-0400 Heart rate 51 /min Pacc 1 Work Phone: [facility] 05-31-2022 08:47-0400 Respiratory rate 16 /min Pacc 1 Work Phone: [facility] 05-31-2022 08:47-0400 SaO2% (BldA) [Mass fraction] 96 % Pacc 1 Work Phone: [facility] 05-31-2022 08:47-0400 Systolic blood pressure 100 mm[Hg] Pacc 1 Work Phone: [facility] 05-21-2022 15:11-0400 Body temperature 97.59 [degF] Florencio Tesfaye MD Work Phone: [facility] 05-21-2022 15:11-0400 Body weight 82.01 kg Florencio Tesfaye MD Work Phone: [facility] 05-21-2022 15:11-0400 Diastolic blood pressure 63 mm[Hg] Florencio Tesfaye MD Work Phone: [facility] 05-21-2022 15:11-0400 Heart rate 59 /min Florencio Tesfaye MD Work Phone: [facility] 05-21-2022 15:11-0400 SaO2% (BldA) [Mass fraction] 96 % Florencio Tesfaye MD Work Phone: [facility] 05-21-2022 15:11-0400 Systolic blood pressure 133 mm[Hg] Florencio Tesfaye MD Work Phone: [facility] 01-11-2022 08:03-0400 Body height 170.2 cm Florencio Tesfaye MD Work Phone: [facility] 01-11-2022 08:03-0400 Body temperature 98.1 [degF] Florencio Tesfaye MD Work Phone: [facility] 01-11-2022 08:03-0400 Body weight 83.28 kg Florencio Tesfaye MD Work Phone: [facility] 01-11-2022 08:03-0400 Diastolic blood pressure 58 mm[Hg] Florencio Tesfaye MD Work Phone: [facility] 01-11-2022 08:03-0400 Heart rate 85 /min Florencio Tesfaye MD Work Phone: [facility] 01-11-2022 08:03-0400 SaO2% (BldA) [Mass fraction] 99 % Florencio Tesfaye MD Work Phone: [facility] 01-11-2022 08:03-0400 Systolic blood pressure 118 mm[Hg] Florencio Tesfaye MD Work Phone: [facility] 12-26-2021 14:59-0400 Body weight 85.73 kg Bessie Cristóbal HYDRAMATIC SPECIALIST.CT TECH Work Phone: [facility] 12-26-2021 14:59-0400 Diastolic blood pressure 76 mm[Hg] Bessie Cristóbal HYDRAMATIC SPECIALIST.CT TECH Work Phone: [facility] 12-26-2021 14:59-0400 Heart rate 56 /min Bessei Cristóbal HYDRAMATIC SPECIALIST.CT TECH Work Phone: [facility] 12-26-2021 14:59-0400 SaO2% (BldA) [Mass fraction] 97 % Bessie Cristóbal HYDRAMATIC SPECIALIST.CT TECH Work Phone: [facility] 12-26-2021 14:59-0400 Systolic blood pressure 120 mm[Hg] Bessie Cristóbal HYDRAMATIC SPECIALIST.CT TECH Work Phone: [facility] 12-12-2021 10:04-0400 Body temperature 96.8 [degF] Robel Onofre DO Work Phone: [facility] 12-12-2021 10:04-0400 Body weight 83.92 kg Robel Onofre DO Work Phone: [facility] 12-12-2021 10:04-0400 Diastolic blood pressure 70 mm[Hg] Robel Onofre DO Work Phone: [facility] 12-12-2021 10:04-0400 Heart rate 56 /min Robel Onofre DO Work Phone: [facility] 12-12-2021 10:04-0400 Respiratory rate 16 /min Robel Onofre DO Work Phone: [facility] 12-12-2021 10:04-0400 Systolic blood pressure 100 mm[Hg] Robel Onofre DO Work Phone: [facility] 10-15-2021 08:32-0500 Body height 170.[address] Robel Onofre Work Phone: [facility] Work Phone: 10-15-2021 08:32-0500 Body mass index (BMI) [Ratio] 29.1 kg/m2 Dr. Robel Onofre Work Phone: [facility] Work Phone: 10-15-2021 08:32-0500 Body weight 84.[address] Robel Onofre Work Phone: [facility] Work Phone: 10-15-2021 08:32-0500 Diastolic blood pressure 70 mm[Hg] Dr. Robel Onofre Work Phone: [facility] Work Phone: 10-15-2021 08:32-0500 Heart rate 54 /min Dr. Robel Onofre Work Phone: [facility] Work Phone: 10-15-2021 08:32-0500 Respiratory rate 20 /min Dr. Robel Onofre Work Phone: [facility] Work Phone: 10-15-2021 08:32-0500 SaO2% (BldA) [Mass fraction] 96 % Dr. Robel Onofre Work Phone: [facility] Work Phone: 10-15-2021 08:32-0500 Systolic blood pressure 122 mm[Hg] Dr. Robel Onofre Work Phone: [facility] Work Phone: 02-03-2017 08:40-0400 BMI (Body Mass Index) 28.03 kg/m2 [facility] Work Phone: 02-03-2017 08:40-0400 BP Diastolic 68 mm[Hg] [facility] Work Phone: 02-03-2017 08:40-0400 BP Systolic 118 mm[Hg] [facility] Work Phone: 02-03-2017 08:40-0400 Height 170.18 cm [facility] Work Phone: 02-03-2017 08:40-0400 Pulse (Heart Rate) 58 /min [facility] Work Phone: 02-03-2017 08:40-0400 Respiratory Rate 18 /min [facility] Work Phone: 02-03-2017 08:40-0400 Weight 81.19 kg [facility] Work Phone: 07-30-2016 14:03-0500 BMI [...] BP Diastolic 78 mm[Hg] Dede Araiza RN [facility] Work Phone: 01-02-2016 10:45-0400 BP Systolic 150 mm[Hg] [facility] Work Phone: 05-24-2013 10:32-0400 Heart rate 57 /min [facility] Work Phone: 05-24-2013 10:32-0400 Heart rate 442 ms [facility] Work Phone: NEGATED: Highlighted [id number] 11:20-0400 BMI (Body Mass Index) 27.35 kg/m2 [facility] Work Phone: NEGATED: Highlighted [id number] 11:20-0400 BP Diastolic 77 mm[Hg] [facility] Work Phone: NEGATED: Highlighted [id number] 11:20-0400 BP Systolic 127 mm[Hg] [facility] Work Phone: NEGATED: Highlighted [id number] 11:20-0400 Height 170.18 cm [facility] Work Phone: NEGATED: Highlighted [id number] 11:20-0400 Height 170 cm [facility] Work Phone: NEGATED: Highlighted [id number] 11:20-0400 Pulse (Heart Rate) 57 /min [facility] Work Phone: NEGATED: Highlighted [id number] 11:20-0400 Weight 78.93 kg [facility] Work Phone: NEGATED: Poonam [id number] 11:0 Weight 79 kg [facility] Work Phone: Encounters Encounter Date Encounter Type Care Provider Facility Start: 07-01-2025 ambulatory Robel Onofre [facility]ilit [facility] Start: 06-27-2025 End: 06-27-2025 ambulatory ROBEL ONOFRE Facility:[facility] Start: 06-24-2025 End: 06-24-2025 ambulatory ROBEL ONOFRE Facility:[facility] Start: 06-24-2025 End: 06-24-2025 ambulatory ROBEL ONOFRE Facility:[facility] Start: 03-22-2025 End: 03-22-[address] Jamal Dawson MD -[facility] Work Phone: Start: 03-22-2025 End: 03-22-[address] Robel Onofre DO Work Phone: -[facility] Start: 03-17-2025 End: 03-17-2025 Refill Robel Onofre DO Work Phone: [facility] Comment on above: Refill Request Start: 02-10-2025 End: 02-11-2025 Refill Cat Foote APRN.CT TECH Work Phone: [facility] Comment on above: Refill Request Start: 01-18-2025 End: 01-18-2025 ambulatory Citlaly Payton MA [facility] Start: 01-18-2025 End: 01-18-2025 Patient encounter procedure Citlaly Payton MA [facility] Comment on above: Population Health Na vigation Outreach ([place]/Workbench/ACO ) Start: 12-27-2024 End: 12-27-2024 Patient encounter procedure Robel Onofre DO Work Phone: [facility] [place] Comment on above: Gastroesophageal ref 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 hemorrhage (Primary Dx); Vitamin D deficiency; Other depression; Vitamin B12 deficiency; Thrombocytopenia; Familial hypercholesterolemia; Macular degeneration of both eyes, unspecified type; BPH associated with nocturia; Actinic keratosis; BPPV (benign paroxysmal positional vertigo), unspecified laterality Start: 12-27-2024 End: 12-27-2024 ambulatory ROBEL ONOFRE Facility:[facility] Start: 12-20-2024 End: 12-21-2024 Telephone encounter Robel Onofre DO Work Phone: [facility] [place] Comment on above: Patient Question Start: 12-14-2024 End: 12-14-2024 Telephone encounter Robel Onofre DO Work Phone: [facility] [place] Comment on above: Vertigo Start: 12-14-2024 End: 12-14-2024 Emergency department patient visit Dr. Robel Onofre DO Work Phone: -Emergency Department Work Phone: Start: 12-14-2024 End: 12-14-2024 Office outpatient visit 25 minutes Asha Hernandez APRN.CT TECH Work Phone: [facility] [place] Comment on above: Vertigo (Primary Dx) ; Nausea and vomiting, unspecified vomiting type; Gait disturbance Start: 12-14-2024 End: 12-14-2024 ambulatory ASHA HERNANDEZ Facility:[facility] Start: 12-09-2024 End: 12-09-2024 Refill Robel Hernandezon DO Work Phone: [address] [place] [address] Comment on above: Refill Request Start: 11-22-2024 End: 11-24-2024 Refill Robel Tobinrison DO Work Phone: [facility] [place] Comment on above: Refill Request Start: 11-08-2024 End: 11-08-2024 Refill Robel Bowman Onofre DO Work Phone: [address] [place] [address] Comment on above: Refill Request Start: 10-08-2024 End: 10-12-2024 Refill Robel Tobinrison DO Work Phone: [facility] [place] Comment on above: Refill Request Letter (Blindness co nfirmation for taxes) Start: 08-30-2024 End: 11-30-2024 Telephone encounter Robel Onofre DO Work Phone: [facility] [place] Start: 08-11-2024 End: 08-11-2024 Refill Robel Onofre DO Work Phone: [facility] [place] Comment on above: Refill Request Start: 07-01-2024 End: 07-01-2024 Telephone encounter Robel Onofre DO Work Phone: [facility] [place] Start: 06-30-2024 End: 06-30-2024 ambulatory ROBEL ONOFRE Facility:[facility] Start: 06-30-2024 End: 06-30-2024 Patient encounter procedure Robel Oonfre DO Work Phone: [facility] Comment on above: Hypertension, essent ial (Primary Dx); Need for influenza vaccination; Vitamin D deficiency; Vitamin B12 deficiency; Thrombocytopenia (HCC); Macular degeneration of both eyes, unspecified type; Familial hypercholesterolemia; BPH associated with nocturia; Borderline abnormal thyroid function test; Hyperglycemia; Other depression Start: 06-30-2024 End: 06-30-2024 ambulatory ROBEL ONOFRE Facility:[facility] Start: 05-04-2024 End: 05-04-2024 Refill Robel Onofre DO Work Phone: [facility] Comment on above: Refill Request Start: 03-10-2024 End: 03-10-2024 Office outpatient visit 15 minutes Bessie Ambrocio APRN.CT TECH Work Phone: [facility] [place] Comment on above: Feelings of worthles sness (Primary Dx); Stress; Lack of motivation; Other depression Start: 02-04-2024 End: 02-04-2024 Patient encounter procedure Bessie Ambrocio APRN.CNP Work Phone: [facility] [place] Comment on above: Feelings of worthles sness (Primary Dx); Stress; Lack of motivation; Other depression; Macular degeneration of both eyes, unspecified type; Bilateral hearing loss, unspecified hearing loss type Start: 01-26-2024 Telephone encounter Robel villanueva DO Work Phone: [facility] [place] Comment on above: Depression Start: 01-16-2024 Telephone encounter Robel villanueva DO Work Phone: [facility] [place] Comment on above: Results Start: 01-01-2024 Telephone encounter Robel villanueva DO Work Phone: [facility] [place] Start: 12-22-2023 End: 12-22-2023 Patient encounter procedure Robel Onofre DO Work Phone: [facility] [place] Comment on above: Hypertension, essent ial (Primary [...] 11-25-2023 Refill Robel terrazas DO Work Phone: [facility] [place] Comment on above: Refill Request Start: 11-24-2023 Refill Robel terrazas DO Work Phone: [facility] [place] Comment on above: Refill Request; erro r Start: 11-12-2023 Refill Robel terrazas DO Work Phone: [facility] [place] Comment on above: Refill Request Start: 10-14-2023 Refill Robel terrazas DO Work Phone: [facility] [place] Comment on above: Refill Request Start: 07-31-2023 Refill Robel terrazas DO Work Phone: [facility] [place] Comment on above: Refill Request Start: 07-25-2023 Refill Robel terrazas DO Work Phone: [facility] [place] Comment on above: Refill Request Orders Start: 06-13-2023 End: 06-13-2023 Patient encounter procedure Robel Onofre DO Work [...] 03-31-2023 Refill Robel terrazas DO Work Phone: [facility] Comment on above: Refill Request Start: 02-12-2023 Refill Robel terrazas DO Work Phone: [address] [place] [address] Comment on above: Refill Request Start: 01-30-2023 Telephone encounter Robel Gracie villanueva DO Work Phone: [facility] Comment on above: Handicap Placard Start: 12-23-2022 Telephone encounter Robel Bowman Jess villanueva DO Work Phone: [facility] Comment on above: Results Start: 12-06-2022 End: 12-06-2022 Patient encounter procedure Robel Onofre DO Work Phone: [facility] Comment on above: Vitamin D deficiency (Primary Dx); Vitamin B12 deficiency; Hypertension, essential; Familial hypercholesterolemia; BPH associated with nocturia; Screening for prostate cancer; Iron deficiency anemia, unspecified iron deficiency anemia type Start: 11-18-2022 Refill Bessie kenney APRN.CT TECH Work Phone: [facility] Comment on above: Refill Request Start: 10-17-2022 Refill Robel terrazas DO Work Phone: [facility] Comment on above: Refill Request Start: 10-07-2022 Refill Robel terrazas DO Work Phone: [facility] Comment on above: Refill Request Start: 09-10-2022 Refill Robel terrazas DO Work Phone: [facility] Comment on above: Refill Request Start: 07-24-2022 Refill Robel terrazas DO Work Phone: [facility] Comment on above: Refill Request Start: 07-04-2022 Telephone encounter Bessie Camargo HYDRAMATIC SPECIALIST.CT TECH Work Phone: [facility] Comment on above: Results Start: 07-03-2022 End: 07-03-2022 Patient encounter procedure Bessie Ambrocio HYDRAMATIC SPECIALIST.CT TECH Work Phone: [facility] Comment on above: Hypertension, essent ial (Primary Dx); Maegan-Feldman tear Start: 06-26-2022 Telephone encounter Robel villanueva DO Work Phone: [facility] Comment on above: Patient Update Start: 06-21-2022 Telephone encounter Robel villanueva DO Work Phone: [facility] Comment on above: Patient Update Start: 06-17-2022 ambulatory Robel terrazas DO Work Phone: [facility] Start: 06-17-2022 Telephone encounter Robel villanueva DO Work Phone: [facility] Comment on above: Orders Start: 06-14-2022 Non-patient / Non-visit Dr. Roxana Onofre Work Phone: [facility] Inpatient Physicians Start: 06-14-2022 Non-patient / Non-visit Dr. Roxana Onofre Work Phone: [facility] Start: 06-13-2022 End: 06-15-2022 Evaluation and management of inpatient Dr. Robel Onofre Work Phone: [facility] Start: 06-13-[address] Abram Onofre Work Phone: [facility] Work Phone: Start: 06-13-2022 Non-patient / Non-visit Dr. Roxana Onofre Work Phone: [facility] Start: 06-13-2022 Telephone encounter Florencio cummings MD Work Phone: General Surgery Comment on above: Patient Update Start: 06-12-2022 ambulatory FLORENCIO TESFAYE Facili ty:[facility] Start: 06-12-2022 End: 06-12-2022 Subsequent hospital visit by physician Florencio Tesfaye MD Work Phone: [facility] Surgery Comment on above: Right inguinal herni a [K40.90] Start: 06-07-2022 Telephone encounter Luiza Rivers APRN.CNP Work Phone: Pre Anesthesia Comment on above: Patient Update Start: 06-03-2022 End: 06-03-2022 Patient encounter procedure Robel Onofre Work Phone: [facility] Comment on above: Hypertension, essent ial [...] gangrene Start: 05-31-2022 End: 05-31-2022 [facility] Work Phone: [facility] [place] Start: 05-31-2022 End: 05-31-2022 ambulatory [facility] 1 Work Phone: Pre Anesthesia Comment [...] Refill Robel Grimes son DO Work Phone: [facility] [place] Comment on above: Refill Request Start: 02-18-2022 Refill Robel Grimes son DO Work Phone: [facility] Comment on above: Refill Request Start: 02-01-2022 Telephone encounter Bessie Camargo HYDRAMATIC SPECIALIST.CT TECH Work Phone: [facility] Comment on above: Results Start: 01-31-2022 Telephone encounter Robel villanueva DO Work Phone: [facility] Comment on above: Patient Update; Appo intment Start: 01-11-2022 End: 01-11-2022 Patient encounter procedure Florencio Tesfaye MD Work Phone: General Surgery Comment on above: Bilateral inguinal h ernia without obstruction or gangrene, recurrence not specified Start: 01-02-2022 Telephone encounter Robel villanueva DO Work Phone: [facility] Comment on above: Results; Appointment Start: 01-01-2022 End: 01-01-[address] Robel Onofre Work Phone: [facility] Start: 12-27-2021 Telephone encounter Bessie Camargo HYDRAMATIC SPECIALIST.CT TECH Work Phone: [facility] Comment on above: Faxed orders Change Of Order ([facility] radiology dept.) Start: 12-26-2021 End: 12-26-2021 Patient encounter procedure Bessie Cristóbal HYDRAMATIC SPECIALIST.CT TECH Work Phone: [facility] Comment on above: Right inguinal pain (Primary Dx); Inguinal bulge Start: 12-26-2021 Telephone encounter Robel villanueva DO Work Phone: [facility] [place] Comment on above: Right groin pain Start: 12-12-2021 End: 12-12-2021 Patient encounter procedure Robel Onofre DO Work Phone: [facility] [place] Comment on above: Vitamin D deficiency (Primary Dx); BPH associated with nocturia; Fatigue, unspecified type; Familial hypercholesterolemia; Coronary artery disease due to lipid rich plaque; Hypertension, essential; Actinic keratosis Start: 10-15-2021 End: 10-15-[address] Robel Onofre Work Phone: [facility] Start: 06-20-2021 End: 06-20-2021 Subsequent hospital [...] encounter procedure Mandeep Bernstein DO Work Phone: [facility] Work Phone: Procedures [...] 12-13-2014 End: 12-13-2014 Lipid panel [AGGREGATE] Florencio aRmires MD Work Phone: Start: 05-31-2014 End: 06-14-2014 [...] Start: 05-19-2013 End: 05-31-2014 Lipid panel [AGGREGATE] eRinaldo Diaz MD Start: 11-25-2012 End: 04-14-2013 *Hepatic [...] Author Start: 06-30-2027 Diabetes Screening Diabetes Screening [facility] Start: 01-13-2027 Diabetes Screening Diabetes Screening [facility] Start: 12-21-2026 Diabetes Screening Diabetes Screening [facility] Start: 12-06-2025 DIABETES SCREEN DIABETES SCREEN [facility] Start: 12-06-2025 Diabetes Screening Diabetes Screening [facility] Start: 07-03-2025 DIABETES SCREEN DIABETES SCREEN [facility] Start: 06-30-2025 Hepatitis B surface antibody level LDL Cholesterol [facility] Start: 06-24-2025 End: 06-24-2025 Patient encounter procedure 06/24/2025 10:00 AM EDT Office Visit [facility] [place] [address] [place], [place] [id number] Robel Onofre DO [address] [place], [place] [id number] Medicare Wellness [facility] [place] Comment on above: Medicare Wellness Start: 05-31-2025 DIABETES SCREEN DIABETES SCREEN [facility] Start: 04-25-2025 Influenza vaccination [facility] Start: 01-31-2025 DIABETES SCREEN DIABETES SCREEN [facility] Start: 01-13-2025 Hepatitis B surface antibody level LDL Cholesterol [facility] Start: 12-27-2024 End: 12-27-2024 Patient encounter procedure 12/27/2024 10:40 AM EDT Office Visit [facility] [place] [address] [place], [place] [address] Robel Onofre DO [address] [facility] [place] [address] follow up [facility] [place] Comment on above: follow up Start: 12-14-2024 [facility] Start: 08-25-2024 Advance Directive Discussion Advance Directive Discussion [facility] Start: 08-25-2024 Medicare Advantage Annual Wellness Visit Medicare Advantage Annual Wellness Visit [facility] Start: 06-30-2024 End: 09-29-2024 25-hydroxyvitamin D3 [Mass/volume] in Serum or Plasma [facility] Comment on above: Expected: 06/30/2024, Expires: Start: 06-30-2024 End: 09-29-2024 CBC W Auto Differential panel - Blood [facility] Comment on above: Expected: 06/30/2024, Expires: Start: 06-30-2024 End: 09-29-2024 Cobalamin (Vitamin B12) [Mass/volume] in Serum or Plasma [facility] Comment on above: Expected: 06/30/2024, Expires: Start: 06-30-2024 End: 09-29-2024 Comprehensive metabolic 2000 panel - Serum or Plasma [facility] Work Phone: Comment on above: Expected: 06/30/2024, Expires: Start: 06-30-2024 End: 09-29-2024 Hemoglobin A1c in Blood [facility] Comment on above: Expected: 06/30/2024, Expires: Start: 06-30-2024 End: 09-29-2024 LIPID PANEL, NONFASTING [facility] Comment on above: Expected: 06/30/2024, Expires: Start: 06-30-2024 End: 09-29-2024 Magnesium [Mass/volume] in Serum or Plasma [facility] Comment on above: Expected: 06/30/2024, Expires: Start: 06-30-2024 End: 09-29-2024 Thyrotropin [Units/volume] in Serum or Plasma [facility] Comment on above: Expected: 06/30/2024, Expires: Start: 06-30-2024 End: 09-29-2024 Urinalysis complete panel - Urine [facility] Comment on above: Expected: 06/30/2024, Expires: Start: 06-30-2024 End: 06-30-2024 Patient encounter procedure 06/30/2024 10:40 AM EST Office Visit [facility] [place] [address] [facility] [place] [address] Robel Onofre DO [address] [facility] [place] [address] 6 month follow up [facility] [place] Comment on above: 6 month follow up Start: 05-29-2024 DIABETES SCREEN DIABETES SCREEN [facility] Start: 04-25-2024 Covid-19 Vaccine ( season) Covid-19 Vaccine () [facility] Start: 04-25-2024 Covid-19 Vaccine ( season) Covid-19 Vaccine ( season) [facility] Start: 04-25-2024 Influenza vaccination Influenza Vaccine (#1) [facility] Start: 03-10-2024 End: 03-10-2024 Patient encounter procedure 03/10/2024 12:20 PM EDT Office Visit [facility] [place] [address] [facility] [place] [address] Bessie Ambrocio, HYDRAMATIC SPECIALIST.CT TECH [address] [facility] [place] [address] 4-6 weeks follow up [facility] [place] Comment on above: 4-6 weeks follow up Start: 02-04-2024 End: 02-04-2024 Patient encounter procedure 02/04/2024 12:40 PM EDT Office Visit [facility] [place] [address] [facility] [place] [address] Bessie Ambrocio, HYDRAMATIC SPECIALIST.CT TECH [address] [facility] [place], [place] [id number] depression [facility] [place] Comment on above: depression Start: 01-01-2024 End: 04-01-2024 ALK PHOS ISOENZYM BL ALK PHOS ISOENZYM BL Lab Routine Elevated alkaline phosphatase level Expected: 01/01/2024, Expires: 04/01/2024 [facility] Comment on above: Expected: 01/01/2024, Expires: Start: 01-01-2024 End: 04-01-2024 CBC W Auto Differential panel - Blood COMPLETE BLOOD COUNT AND DIFFERENTIAL Lab Routine Thrombocytopenia (HCC) Expected: 01/01/2024, Expires: 04/01/2024 [facility] Work Phone: Comment on above: Expected: 01/01/2024, Expires: Start: 01-01-2024 End: 04-01-2024 Comprehensive metabolic 2000 panel - Serum or Plasma COMPREHENSIVE METABOLIC PANEL Lab Routine Elevated serum creatinine Expected: 01/01/2024, Expires: 04/01/2024 [facility] Comment on above: Expected: 01/01/2024, Expires: Start: 12-22-2023 End: 03-22-2024 Cobalamin (Vitamin B12) [Mass/volume] in Serum or Plasma [facility] Comment on above: Expected: 12/22/2023, Expires: Start: 12-22-2023 End: 03-22-2024 Comprehensive metabolic 2000 panel - Serum or Plasma [facility] Work Phone: Comment on above: Expected: 12/22/2023, Expires: Start: 12-22-2023 End: 03-22-2024 Iron and Iron binding capacity panel - Serum or Plasma IRON AND TIBC Lab Routine Iron deficiency anemia, unspecified iron deficiency anemia type Expected: 12/22/2023, Expires: 03/22/2024 [facility] Comment on above: Expected: 12/22/2023, Expires: Start: 12-22-2023 End: 03-22-2024 LIPID PANEL, NONFASTING LIPID PANEL, NONFASTING Lab Routine Familial hypercholesterolemia Expected: 12/22/2023, Expires: 03/22/2024 [facility] Comment on above: Expected: 12/22/2023, Expires: Start: 12-22-2023 End: 03-22-2024 Thyrotropin [Units/volume] in Serum or Plasma [facility] Comment on above: Expected: 12/22/2023, Expires: Start: 12-22-2023 End: 03-22-2024 Thyroxine (T4) free [Mass/volume] in Serum or Plasma [facility] Comment on above: Expected: 12/22/2023, Expires: Start: 12-14-2023 End: 03-14-2024 25-hydroxyvitamin D3 [Mass/volume] in Serum or Plasma VITAMIN D 25 HYDROXY Lab Routine Vitamin D deficiency Expected: 12/14/2023, Expires: 03/14/2024 [facility] Work Phone: Comment on above: Expected: 12/14/2023, Expires: Start: 12-14-2023 End: 03-14-2024 CBC panel - Blood by Automated count CBC Lab Routine Familial hypercholesterolemia Iron deficiency anemia, unspecified iron deficiency anemia type Expected: 12/14/2023, Expires: 03/14/2024 [facility] Work Phone: Comment on above: Expected: 12/14/2023, Expires: Start: 12-14-2023 End: 03-14-2024 Cobalamin (Vitamin B12) [Mass/volume] in Serum or Plasma VITAMIN B12 BLOOD Lab Routine Vitamin B12 deficiency Expected: 12/14/2023, Expires: 03/14/2024 [facility] Work Phone: Comment on above: Expected: 12/14/2023, Expires: Start: 12-14-2023 End: 03-14-2024 Comprehensive metabolic 2000 panel - Serum or Plasma COMP METABOLIC PANEL Lab Routine Familial hypercholesterolemia Expected: 12/14/2023, Expires: 03/14/2024 [facility] Work Phone: Comment on above: Expected: 12/14/2023, Expires: Start: 12-14-2023 End: 03-14-2024 Ferritin [Mass/volume] in Serum or Plasma FERRITIN BLD Lab Routine Iron deficiency anemia, unspecified iron deficiency anemia type Expected: 12/14/2023, Expires: 03/14/2024 [facility] Work Phone: Comment on above: Expected: 12/14/2023, Expires: Start: 12-14-2023 End: 03-14-2024 Hemoglobin A1c in Blood HGB A1C Lab Routine Hyperglycemia Expected: 12/14/2023, Expires: 03/14/2024 [facility] Work Phone: Comment on above: Expected: 12/14/2023, Expires: Start: 12-14-2023 End: 03-14-2024 Iron and Iron binding capacity panel - Serum or Plasma IRON + TIBC Lab Routine Iron deficiency anemia, unspecified iron deficiency anemia type Expected: 12/14/2023, Expires: 03/14/2024 [facility] Work Phone: Comment on above: Expected: 12/14/2023, Expires: 4 Start: 12-14-2023 End: 03-14-2024 Lipid 1996 panel - Serum or Plasma LIPID PANEL BASIC Lab Routine Familial hypercholesterolemia Expected: 12/14/2023, Expires: 03/14/2024 [facility] Work Phone: Comment on above: Expected: 12/14/2023, Expires: 4 Start: 12-14-2023 End: 03-14-2024 PSA/PROSTSPECAG SCRN PSA/PROSTSPECAG SCRN Lab Routine BPH associated with nocturia Screening for prostate cancer Expected: 12/14/2023, Expires: 03/14/2024 [facility] Work Phone: Comment on above: Expected: 12/14/2023, Expires: 4 Start: 08-25-2023 Advance Directive Discussion Advance Directive Discussion [facility] Start: 04-25-2023 Covid-19 Vaccine () Covid-19 Vaccine () [facility] Start: 04-25-2023 Influenza vaccination [facility] Start: 12-03-2022 End: 02-02-2023 25-hydroxyvitamin D3 [Mass/volume] in Serum or Plasma VITAMIN D 25 HYDROXY Lab Routine Vitamin D deficiency Expected: 12/03/2022, Expires: 02/02/2023 [facility] Work Phone: Comment on above: Expected: 12/03/2022, Expires: 3 Start: 12-03-2022 End: 02-02-2023 CBC panel - Blood by Automated count CBC Lab Routine Familial hypercholesterolemia Expected: 12/03/2022, Expires: 02/02/2023 [facility] Work Phone: Comment on above: Expected: 12/03/2022, Expires: 3 Start: 12-03-2022 End: 02-02-2023 Cobalamin (Vitamin B12) [Mass/volume] in Serum or Plasma VITAMIN B12 BLOOD Lab Routine Vitamin B12 deficiency Expected: 12/03/2022, Expires: 02/02/2023 [facility] Work Phone: Comment on above: Expected: 12/03/2022, Expires: 3 Start: 12-03-2022 End: 02-02-2023 Comprehensive metabolic 2000 panel - Serum or Plasma COMP METABOLIC PANEL Lab Routine Familial hypercholesterolemia Expected: 12/03/2022, Expires: 02/02/2023 [facility] Work Phone: Comment on above: Expected: 12/03/2022, Expires: 3 Start: 12-03-2022 End: 02-02-2023 Lipid 1996 panel - Serum or Plasma LIPID PANEL BASIC Lab Routine Familial hypercholesterolemia Expected: 12/03/2022, Expires: 02/02/2023 [facility] Work Phone: Comment on above: Expected: 12/03/2022, Expires: 3 Start: 12-03-2022 End: 02-02-2023 PSA/PROSTSPECAG SCRN PSA/PROSTSPECAG SCRN Lab Routine BPH associated with nocturia Screening for prostate cancer Expected: 12/03/2022, Expires: 02/02/2023 [facility] Work Phone: Comment on above: Expected: 12/03/2022, Expires: 3 Start: 12-03-2022 End: 02-02-2023 Thyrotropin [Units/volume] in Serum or Plasma TSH BLD Lab Routine Elevated serum creatinine Fatigue, unspecified type Familial hypercholesterolemia BPH associated with nocturia Expected: 12/03/2022, Expires: 02/02/2023 [facility] Work Phone: Comment on above: Expected: 12/03/2022, Expires: 3 Start: 08-25-2022 ADVANCE DIRECTIVE DISCUSSION ADVANCE DIRECTIVE DISCUSSION [facility] Start: 06-15-2022 [facility] discharge [facility] Work Phone: Start: 06-14-2022 Catheterization of vein [facility] Work Phone: Start: 06-13-2022 Application of intermittent pneumatic compression device [facility] Work Phone: Start: 06-13-2022 Ambulation without limitation [facility] Work Phone: Start: 06-13-2022 Assessment of risk of venous thromboembolism [facility] Work Phone: Start: 06-13-2022 Documentation procedure [facility] Work Phone: Start: 06-13-2022 Incentive spirometry [facility] Work Phone: Start: 06-13-2022 Insertion of catheter into peripheral vein [facility] Work Phone: Start: 06-13-2022 Measuring intake and output [facility] Work Phone: Start: 06-13-2022 Oxygen therapy [facility] Work Phone: Start: 06-13-2022 Providing care according to standard [facility] Work Phone: Start: 06-13-2022 Referral to gastroenterology service [facility] Work Phone: Start: 06-13-2022 Referral to occupational therapist [facility] Work Phone: Start: 06-13-2022 Referral to service [facility] Work Phone: Start: 06-13-2022 [facility] Work Phone: Start: 06-13-2022 Following clinical pathway protocol [facility] Work Phone: Start: 06-13-2022 Admission procedure [facility] Work Phone: Start: 05-29-2022 Hepatitis B surface antibody level LDL CHOLESTEROL [facility] Start: 04-25-2022 Influenza vaccination INFLUENZA (#1) [facility] Start: 02-15-2022 End: 04-17-2022 Renal function 2000 panel - Serum or Plasma RENAL FUNCTION PANEL Lab Routine Elevated serum creatinine Expected: 02/15/2022, Expires: 04/17/2022 [facility] Work Phone: Comment on above: Expected: 02/15/2022, Expires: 2 Start: 12-27-2021 End: 02-26-2022 CREATININE BLD CREATININE BLD Lab Routine Right groin pain Expected: 12/27/2021, Expires: 02/26/2022 [facility] Work Phone: Comment on above: Expected: 12/27/2021, Expires: 2 Start: 08-25-2021 ADVANCE DIRECTIVE DISCUSSION ADVANCE DIRECTIVE DISCUSSION [facility] Start: 06-06-2021 PNEUMOCOCCAL: 65+ (2 - PCV) PNEUMOCOCCAL: 65+ (2 - PCV) [facility] Start: 05-09-2021 COVID-19 Vaccine (3 - Pfizer booster) COVID-19 Vaccine (3 - Pfizer booster) [facility] Work Phone: Start: 03-08-2021 COVID-19 VACCINE (4 - Booster for Pfizer series) COVID-19 VACCINE (4 - Booster for Pfizer series) [facility] Start: 01-01-2021 COVID-19 VACCINE (4 - Booster for Pfizer series) COVID-19 VACCINE (4 - Booster for Pfizer series) [facility] Start: 01-01-2021 COVID-19 VACCINE (5 - Booster) COVID-19 VACCINE (5 - Booster) [facility] Start: 01-01-2021 COVID-19 VACCINE (6 - Booster) COVID-19 VACCINE (6 - Booster) [facility] Start: 01-01-2021 COVID-19 VACCINE (6 - Pfizer series) COVID-19 VACCINE (6 - Pfizer series) [facility] Start: 04-25-2020 Influenza vaccination Flu vaccine (#1) [place], [place] Start: 02-14-2019 Annual Wellness Visit (AWV) Annual Wellness Visit (AWV) [place] Start: 05-12-2018 End: 05-12-2018 Radex spine lumbosacral minimum 4 views XR LUMBAR 4VWS FLEX/EX [facility] Work Phone: Start: 08-12-2017 End: 08-12-2017 Appointment Appointment [facility] Work Phone: Start: 08-01-2017 End: 08-13-2017 *Hepatic Function Panel *Hepatic Function Panel [facility] Work Phone: Start: 08-01-2017 End: 08-13-2017 Lipid panel [AGGREGATE] *Lipid Profile CC PCP [facility] Work Phone: Start: 02-03-2017 End: 02-03-2017 Appointment Appointment [facility] Work Phone: Start: 02-03-2017 End: 02-03-2017 DJN DJN [facility] Work Phone: Start: 02-03-2017 End: 02-03-2017 Follow Up Appt 6 months Follow Up Appt 6 months [facility] Work Phone: Start: 02-03-2017 End: 02-03-2017 Stress Echocardiogram - Dobutamine Stress Echocardiogram - Dobutamine [facility] Work Phone: Start: 12-30-2016 End: 02-01-2017 *Hepatic Function Panel *Hepatic Function Panel [facility] Work Phone: Start: 12-30-2016 End: 02-01-2017 Lipid panel [AGGREGATE] *Lipid Profile CC PCP [facility] Work Phone: Start: 07-30-2016 End: 07-30-2016 DJN DJN [facility] Work Phone: Start: 07-30-2016 End: 07-30-2016 Follow Up Appt 6 months Follow Up Appt 6 months [facility] Work Phone: Start: 07-01-2016 End: 07-01-2016 *Hepatic Function Panel *Hepatic Function Panel [facility] Work Phone: Start: 07-01-2016 End: 07-01-2016 Lipid panel [AGGREGATE] *Lipid Profile CC PCP [facility] Work Phone: Start: 01-02-2016 End: 01-02-2016 MIRNA MIRNA [facility] Work Phone: Start: 01-02-2016 End: 01-02-2016 DJN DJN [facility] Work Phone: Start: 01-02-2016 End: 01-02-2016 Follow Up Appt 6 months Follow Up Appt 6 months [facility] Work Phone: Start: 01-02-2016 End: 01-02-2016 Stress Echocardiogram - Dobutamine Stress Echocardiogram - Dobutamine [facility] Work Phone: Start: 11-28-2015 End: 12-28-2015 *Hepatic Function Panel *Hepatic Function Panel [facility] Work Phone: Start: 11-28-2015 End: 12-28-2015 Lipid panel [AGGREGATE] *Lipid Profile CC PCP [facility] Work Phone: Start: 07-03-2015 End: 07-03-2015 DJN DJN [facility] Work Phone: Start: 07-03-2015 End: 07-03-2015 Follow Up Appt 6 months Follow Up Appt 6 months [facility] Work Phone: Start: 07-03-2015 End: 07-03-2015 Follow Up BP Check Follow Up BP Check [facility] [employer] Work Phone: Start: 05-29-2015 End: 05-29-2015 *Hepatic Function Panel *Hepatic Function Panel [facility] Work Phone: Start: 05-29-2015 End: 05-29-2015 Lipid panel [AGGREGATE] *Lipid Profile CC PCP [facility] [employer] Work Phone: Start: 12-13-2014 End: 12-13-2014 *Hepatic Function Panel *Hepatic Function Panel [facility] Work Phone: Start: 12-13-2014 End: 12-13-2014 Lipid panel [AGGREGATE] *Lipid Profile CC PCP [facility] [employer] Work Phone: Start: 05-31-2014 End: 06-14-2014 *Hepatic Function Panel *Hepatic Function Panel [facility] Work Phone: Start: 05-31-2014 End: 05-31-2014 KATTY ALANIZ [employer] Work Phone: Start: 05-31-2014 End: 05-31-2014 Follow Up Appt 1 year Follow Up Appt 1 year [employer] Work Phone: Start: 05-31-2014 End: 06-14-2014 Lipid panel [AGGREGATE] *Lipid Profile CC PCP [facility] [employer] Work Phone: Start: 05-31-2014 End: 06-30-2014 Stress Echocardiogram - Dobutamine Stress Echocardiogram - Dobutamine [employer] Work Phone: Start: 2014 RSV Vaccine (1 - 1-dose 75+ series) RSV Vaccine (1 - 1-dose 75+ series) [facility] Start: 05-24-2013 End: 05-18-2014 KATTY ALANIZ [employer] Work Phone: Start: 05-24-2013 End: 05-24-2013 Echocardiography Echocardiogram (complete) [employer] Work Phone: Start: 05-24-2013 End: 05-18-2014 Follow Up Appt 1 year Follow Up Appt 1 year [facility] Work Phone: Start: 05-24-2013 End: 05-24-2013 Stress Echocardiogram - Dobutamine Stress Echocardiogram - Dobutamine [facility] Work Phone: Start: 05-19-2013 End: 05-31-2014 *Hepatic Function Panel *Hepatic Function Panel [facility] [employer] Work Phone: Start: 05-19-2013 End: 05-31-2014 Lipid panel [AGGREGATE] *Lipid Profile [facility] [employer] Work Phone: Start: 11-25-2012 End: 04-14-2013 *Hepatic Function Panel *Hepatic Function Panel [facility] [employer] Work Phone: Start: 11-25-2012 End: 04-14-2013 Lipid panel [AGGREGATE] *Lipid Profile [facility] [employer] Work Phone: Start: 11-11-2012 End: 11-11-2012 Follow Up Appt 6 months Follow Up Appt 6 months [facility] [employer] Work Phone: Start: 06-02-2012 End: 05-07-2012 *Hepatic Function Panel *Hepatic Function Panel [facility] [employer] Work Phone: Start: 06-02-2012 End: 05-07-2012 Lipid panel [AGGREGATE] *Lipid Profile [facility] [employer] Work Phone: Start: 05-25-2012 End: 05-25-2012 Electrocardiogram, complete EKG (In office) [facility] Work Phone: Start: 05-25-2012 End: 05-25-2012 Follow Up Appt 6 months Follow Up Appt 6 months [facility] [employer] Work Phone: Start: 11-11-2011 End: 11-21-2011 *Hepatic Function Panel *Hepatic Function Panel [facility] [employer] Work Phone: Start: 11-11-2011 End: 11-11-2011 Follow Up Appt 6 months Follow Up Appt 6 months [facility] Work Phone: Start: 11-11-2011 End: 11-11-2011 Follow Up Appt Other Follow Up Appt Other [facility] Work Phone: Start: 11-11-2011 End: 11-21-2011 Lipid panel [AGGREGATE] *Lipid Profile [facility] Work Phone: Start: 2004 Pneumococcal 65+ years Vaccine (1 of 1 - PPSV23) Pneumococcal 65+ years Vaccine (1 of 1 - PPSV23) [place], [place] Start: 1999 RSV Vaccine (1 - 1-dose 60+ series) RSV Vaccine (1 - 1-dose 60+ series) [facility] Start: 1989 Shingles Vaccine (1 of 2) Shingles Vaccine (1 of 2) [place], [place] Start: 1989 SHINGRIX VACCINE (1 of 2) SHINGRIX VACCINE (1 of 2) [facility] Start: 1958 DTaP/Tdap/Td vaccine (1 - Tdap) DTaP/Tdap/Td vaccine (1 - Tdap) [place], [place] Start: 1958 Urine microalbumin profile [facility] Start: 1957 Anxiety Screening Anxiety Screening [facility] Start: 1949 Lipid panel Lipid screen [facility] Work Phone: Start: 1940 Creatinine measurement Creatinine monitoring [facility] Work Phone: Start: 1939 Potassium monitoring Potassium monitoring [facility] Work Phone: End: 01-26-2023 Ct abdomen & pelvis w/contrast material CT ABD/PEL W IVCON Radiology Routine Localized enlarged lymph nodes Right groin pain 1 Occurrences starting 12/27/2021 until 01/26/2023 [facility] Work Phone: Comment on above: 1 Occurrences starting 12/27/2021 until 01/26/2023 Hemoglobin.gastroint shannan nal.lower [Presence] in Stool by Immunoassay FECAL OCCULT BLOOD TEST Lab Routine Hypotension, unspecified hypotension type Ordered: 06/17/2022 [facility] Work Phone: Comment on above: Ordered: 06/17/2022 INFLUENZA SEASONAL QUADRIVALENT HIGH DOSE AGE 65+ INFLUENZA SEASONAL QUADRIVALENT HIGH DOSE AGE 65+ Immunization/Injection Routine Encounter for immunization Ordered: 06/03/2022 [facility] Work Phone: Comment on above: Ordered: 06/03/2022 Patient Education [facility] Work Phone: Patient referral [facility] Work Phone: End: 01-25-2023 Us pelvic nonobstetric image dcmtn limited/f/u US PELVIS LTD Radiology MAYANK Right inguinal pain Inguinal bulge 1 Occurrences starting 12/26/2021 until 01/25/2023 [facility] Work Phone: Comment on above: 1 Occurrences starting 12/26/2021 until 01/25/2023 [facility] Immunizations Immunization Date Immunization Notes Care Provider [facility] 06-30-2024 influenza, high dose seasonal, preservative-free Robel Onofre DO Work Phone: [facility] 06-30-2024 influenza virus vaccine, unspecified formulation [employer] DO Work Phone: [facility] 06-13-2023 influenza (HD-IIV4) vaccine, age 65+ yr, high dose, quadrivalent, PF (FLUZONE HIGH-DOSE) [employer] DO Work Phone: [facility] Work Phone: 06-13-2023 influenza virus vaccine, unspecified formulation [employer] DO Work Phone: [facility] 12-06-2022 pneumococcal (PCV20) vaccine, 20 valent (PREVNAR 20) [employer] DO Work Phone: [facility] Work Phone: 12-06-2022 pneumococcal Conjuga te, unspecified formulation [employer] DO Work Phone: [facility] Work Phone: 07-03-2022 influenza, high-dose , quadrivalent vaccine (FLUZONE HIGH DOSE QUADRIVALENT) Bessie Ambrocio APRN.CT TECH Work Phone: [facility] 11-06-2020 COVID-19 vaccine, ag e 12+ yr (PFIZER-BIONTECH - PURPLE TOP) Robel Onofre DO Work Phone: [facility] Work Phone: 10-16-2020 COVID-19 vaccine, ag e 12+ yr (PFIZER-BIONTECH - PURPLE TOP) Robel Onofre DO Work Phone: [facility] Work Phone: 06-06-2020 influenza, high-dose , quadrivalent vaccine (FLUZONE HIGH DOSE QUADRIVALENT) Robel Onofre DO Work Phone: [facility] Work Phone: 06-06-2020 pneumococcal polysaccharide vaccine, 23 valent Robel Onofre DO Work Phone: [facility] Work Phone: 03-25-2020 Covid (Pfizer) Dr. Robel Onofre Work Phone: [facility] 02-23-2020 Covid (Pfizer) Dr. Robel Onofre Work Phone: [facility] 08-25-2019 influenza, injectabl e, quadrivalent, preservative free Dr. Robel Onofre DO Work Phone: [facility] 08-25-2019 influenza, seasonal, injectable Dr. Robel Onofre Work Phone: [facility] Work Phone: 07-27-2019 influenza, high dose seasonal, preservative-free Robel Onofre DO Work Phone: [facility] 05-25-[address] Robel Onofre Work Phone: [facility] No information available. Dorota Koenig [facility] Work Phone: NEGATED: Highlighted row has not occurred!06-04-2022 influenza, high-dose, quadrivalent vaccine (FLUZONE HIGH DOSE QUADRIVALENT) Robel Onofre DO Work Phone: [facility] Work Phone: Payers Date Payer Category Payer Self-pay [id number] 2024 Medicare (Managed Care) MMO [employer] HMO [id number] 2024 Unknown [id number] 2021 Private Health Insurance [employer] [place] [id number] 2021 Unknown [employer] [place] [employer] [place] MEDICARE SUPPLEMENT [id number] 2021-Present [phone] [id number] [place] [address] Indemnity [id number] 2021 Unknown [employer] [place] [employer] [place] MEDIC[employer] SUPPLEMENT [id number] 2021-Present [phone] [address] [place] [address] Indemnity [id number] 2021 Medicare [id number] 2016 Private Health Insurance [employer] [place] [employer] SUPP [id number] 2016-Present [phone] [address] [place] [address] [id number] [id number] 2016 Private Health Insurance [employer] [place] SUPP [id number] 2016-Present [phone] [address] [place] [address] [id number] 2014 Private Health Insurance [id number] 2004 Medicare MEDICARE MEDICAR E A AND B [id number] 2004-Present [phone] [address] [address] [place] [address] Medicare [id number] 2004 Medicare [id number] 2004 Medicare [id number] Unknown [id number] Unknown [id number] Unknown [id number] Unknown [id number] Social History Date Type Detail Facility Start: 02-11-2018 End: 06-13-2022 Assertion Unknown if ever smoked [facility] Work Phone: Start: 1940 Sex Assigned At Not on file [place], [place] Start: 07-27-2020 End: 12-14-2024 Tobacco smoking status TXIS Former smoker [facility] Work Phone: End: 07-27-1982 History of tobacco use Current smoker [facility] End: 07-27-1982 History of tobacco use Cigarette Smoker [facility] Start: 07-27-2020 End: 06-30-2024 Tobacco use and exposure Never used [facility] Start: 07-27-2020 Alcohol intake Lifetime non-drinker (finding) [facility] Work Phone: Start: 07-27-2020 End: 12-06-2022 History SDOH Alcohol Frequency 1 [facility] Work Phone: Start: 12-12-2021 End: 12-14-2024 Alcohol intake Current non-drinker of alcohol (finding) [facility] Start: 12-04-2020 End: 12-06-2022 History SDOH Social Connections Phone 5 [facility] Start: 12-04-2020 End: 12-06-2022 History SDOH Social Connections Meetings 3 [facility] Start: 12-04-2020 End: 12-06-2022 History SDOH Transport Med 2 [facility] Start: 12-04-2020 Education 12 [facility] Start: 12-02-2021 End: 07-03-2022 Exposure to SARS-CoV-2 (event) Not sure [facility] Work Phone: Start: 10-27-2019 None [facility] Start: 10-27-2019 Cigarettes [facility] Start: 1940 Sex Assigned At Male [facility] Start: 12-06-2022 History SDOH Alcohol Std Drinks 0 [facility] Start: 09-10-2022 End: 12-05-2022 History of Social function [facility] Start: 09-10-2022 End: 12-05-2022 Social connection and isolation panel [facility] Do you belong to any clubs or organizations such as restorationism groups, unions, fraternal or athletic groups, or school groups? Yes [facility] Are you now , , , , never or living with a partner? [facility] How often to you hav e a drink containing alcohol? Never [facility] How many standard dr inks containing alcohol do you have on a typical day? Patient does not drink [facility] Do you feel stress - tense, restless, nervous, or anxious, or unable to sleep at night because your mind is troubled all the time - these days [OSQ] Only a little [facility] (I/We) worried wheervin er (my/our) food would run out before (I/we) got money to buy more. Never true [facility] In the past 12 month s, was there a time when you were not able to pay the mortgage or rent on time? No [facility] Do you feel stress - tense, restless, nervous, or anxious, or unable to sleep at night because your mind is troubled all the time - these days [OSQ] Not at all [facility] Start: 12-14-2024 Sex Male (finding) [facility] Medical Equipment Procedure Code Equipment Code Equipment Origin al Text Equipment Identifier Dates ACCOLADE II ANGL E STEM 127 DEG FDA Start: 11-26-2017 BIOLEX DELTA CER AMIC FEM HEAD FDA Start: 11-26-2017 TRIDENT X3 O DEG POLY INSERT FDA Start: 11-26-2017 trident susan acetabular shell FDA Start: 11-26-2017 Mesh Progrip Polyactic Acid Collagen Polyester [id number] Surgical Self Fixate - [id number] Start: 06-12-2022 ACCOLADE II ANGL E [...] FDA Start: 11-26-2017 Mesh Progrip Wisam Pet [id number] Surgical Self Fixate Flat Sheet Hernia Sterile - [id number] Start: 06-12-2022 ACCOLADE II ANGL E [...] Assessment Result Facility 06-15-2022 Functional status Ambulates;[facility] Work Phone: Mental Status Date Assessment Result Facility 12-14-2024 Cognitive function Voice/Name [facility] Work Phone: 06-15-2022 Cognitive function Voice/Name [facility] Work Phone: Clinical Notes 09-22-1996 to 06-27-2025 Telephone Encounter - Zenaida Morrissey [facility] 03/17/2025 8:57 AM EDTTelephone Encounter - Zenaida Morrissey [facility] 03/17/2025 8:57 AM Citlaly Maldonado MA - 01/18/2025 10:42 AM EDTPatient Instructions Note Date & Type Note Facility 06-27-2025 Note HNO ID: [id number] Author: SALLY STEELE CCC-POLYMERIZATION ENGINEER Service: ? Author Type: Speech Language Pathologist Type: Progress Notes Filed: 06/27/2025 13:58 Note Text: Summary: DYSPHAGIA EVALUATION Episode Visit Count: 1 Therapist That Will Accept/Oversee The Plan Of Care: Sally Steele Start of Care Date: 06/27/25 Onset Date: 06/24/25 Patient Identified by Name and Date of : Yes [facility] SPEECH THERAPY CLINICAL [...] Barium Swallow Study (MBSS) Recommended Consults GI POLYMERIZATION ENGINEER Recommendations: Instrumental Swallow Assessment Recommendations Instrumental Swallow [...] Return Demonstration TREATMENT: Evaluation: Swallow Eval Func (49803) Evaluation: Swallow Eval Func (97298) Current Home Program: Continue diet as tolerated. Continue current swallow/eating strategies. MBSS and GI follow-up ( (more content not included)... [facility] 06-25-2025 Note HNO ID: [id number] Author: ROBEL ONOFRE, DO Service: ? Author [...] loss. BMI 29.66 kg/(m2) Robel Onofre DO [facility] 06-24-2025 Note HNO ID: [id number] Author: NAMITA HARDWICK RT(R) Service: ? Author [...] PATIENT PRESENTS WITH AN IMPLANTABLE OR ATTACHED KICK PRESS OPERATOR: No RADIOLOGY DEPARTMENT: General X-ray: Exam(s) Completed: Chest X-Ray PERIPHERAL IV DATA: Not applicable SIGNED BY: RT Derrick(R) June 24, 2025 11:36 AM [facility] 06-24-2025 Note HNO ID: [id number] Author: ROBEL ONOFRE DO Service: ? Author [...] taking medications as prescribed. Continues to see Travel Consultant for followup Iron deficiency, eating iron rich [...] Macular degeneration NSTEMI (non-ST elevated myocardial infarction) ([facility]) 10/28/2019 Osteoarthritis of left hip Paresthesia PMH [...] 07/28/2007 DIR RPR ANEURYSM ABDOMINAL AORTA 04/20/2011 [facility] EYLEA (AFLIBERCEPT) 2MG INTRAVITREAL INJECTION OD [...] Age of Onset Heart Mother age 60 NC, smoker None Father age 77 MVA Cataract [...] rash/itching. Allergies: ALLERGIES (more content not included)... [facility] 03-17-2025 Telephone encounter Note Prescription Refill Information [...] Zenaida Mace March 17, 2025 8:57 AM [facility] 03-17-2025 Miscellaneous Notes Prescription Refill Information The [...] 2025 8:57 AM documented in this encounter [facility] 02-10-2025 Telephone encounter Note Prescription Refill Information [...] Cedillo MA February 10, 2025 7:53 PM [facility] 02-10-2025 Miscellaneous Notes Prescription Refill Information The [...] 2025 7:53 PM documented in this encounter [facility] 01-18-2025 Note HNO ID: [id number] Author: CITLALY PAYTON MA Service: ? Author Type: Flanging Operator Type: Progress Notes Filed: 01/18/2025 10:43 Note [...] orders: Medicare Annual Wellness Visit 06/24/2025 in [facility] with ROBEL ONOFRE - Medicare Wellness, HCC gap closure HCC related Navigation Signature: Citlaly Payton MA January 18, 2025 10:43 AM [facility] 01-18-2025 History of Present illness Narrative POPULATION [...] orders: Medicare Annual Wellness Visit 06/24/2025 in [facility] with ROBEL ONOFRE Medicare Wellness, HCC gap closure HCC related Navigation Signature: Citlaly Payton MA January 18, 2025 10:43 AM documented in this encounter [facility] 01-18-2025 Note Patient Outreach (NE TNAV) TODD MATAMOROS ([id number]) 1940 M Date Time Provider Department 01/18/25 [...] orders: Medicare Annual Wellness Visit 06/24/2025 in [facility] with ROBEL ONOFRE Medicare Wellness, HCC gap closure HCC related Navigation Signature: Citlaly Payton MA January 18, 2025 10:43 AM Allergies As of Date: 01/18/2025 (No Known Allergies) Date Reviewed: 12/14/2024 Reviewed by: Asha Hernandez APRN.CNP - Fully Assessed Reason for Visit: Population Health Navigation Outreach [3910] Cmt: [facility]/ACO Prescriptions as of 01/18/2025 - simvastatin (ZOCOR) [...] Encounter Status:Closed by CITLALY PAYTON on 01/18/25 [facility] 12-27-2024 Instructions Robel Onofre DO - 12/27/2024 11:19 AM EDT STOP the Omeprazole Start on PROTONIX documented in this encounter [facility] 12-27-2024 Note HNO ID: [id number] Author: ROBEL ONOFRE DO Service: ? Author Type: Physician Type: Progress Notes Filed: 12/27/2024 14:03 Note Text: CC: Todd Matamoros is a 84 year old male who presents to the office for follow up HPI: Recently with episode of dizziness. Was assessed in office by Asha Hernandez CNP and then sent to [facility] for further assessment with [...] taking medications as prescribed. Continues to see Travel Consultant for followup Iron deficiency, eating iron rich [...] 07/28/2007 DIR RPR ANEURYSM ABDOMINAL AORTA 04/20/2011 [place] EYLEA (AFLIBERCEPT) 2MG INTRAVITREAL INJECTION OD [...] b/l, visually impair (more content not included)... [facility] 12-27-2024 History of Present illness Narrative CC: Todd Matamoros is a 84 year old male who presents to the office for follow up HPI: Recently with episode of dizziness. Was assessed in office by Asha Hernandez CNP and then sent to [facility] for further assessment with [...] taking medications as prescribed. Continues to see Travel Consultant for followup Iron deficiency, eating iron rich [...] Macular degeneration NSTEMI (non-ST elevated myocardial infarction) ([facility]) 10/28/2019 Osteoarthritis of left hip Paresthesia PMH [...] 07/28/2007 DIR RPR ANEURYSM ABDOMINAL AORTA 04/20/2011 [facility] EYLEA (AFLIBERCEPT) 2MG INTRAVITREAL INJECTION OD [...] See patient instructions. Robel Onofre DO [address] [place] [address] documented in this encounter [facility] 12-21-2024 Telephone encounter Note Spoke with daughter and notified of below. Verbalized understanding. Nuria Hurst LPN [facility] 12-21-2024 Miscellaneous Notes Spoke with daughter and [...] 12/14/24 for vertigo. Asha sent pt to [facility] ER that day and ER prescribed meclizine 12.5 mg take 3 x's day prn. Reports the meclizine has helped pt's vertigo. Daughter did not schedule ER f/u with pcp b/c patient has appt with pcp on Friday12/27/24 for a f/u. Reports pt has 1-2 meclizine pills left. Asking if pcp would send new Rx to [facility]. Pended. documented in this encounter [facility] 12-21-2024 Telephone encounter Note The following approved medication requests have been transmitted electronically. Requested Prescriptions Signed Prescriptions Disp Refills meclizine (ANTIVERT) 12.5 mg tab 20 tablet 0 Sig: Take 1 tablet by mouth three times a day as needed (for dizziness.). Authorizing Provider: PARISH BEASLEY PA-C [facility] 12-20-2024 Telephone encounter Note Daughter, Zulema, reports pt saw Asha on 12/14/24 for vertigo. Asha sent pt to [facility] ER that day and ER prescribed meclizine 12.5 mg take 3 x's day prn. Reports the meclizine has helped pt's vertigo. Daughter did not schedule ER f/u with pcp b/c patient has appt with pcp on Friday12/27/24 for a f/u. Reports pt has 1-2 meclizine pills left. Asking if pcp would send new Rx to [facility]. Pended. [facility] 12-14-2024 Radiology Diagnostic study note [facility] [address] [place], [place] [id number] CTA Head AND Neck W/ Contrast MR#: [id number] Acct: [id number] Name: TODD MATAMOROS Rep #: [id number] : [id number] M [id number] From: Robert Raymond MD PCP: Dr. Robel Onofre, DO Status: RE G ER Study:CTA Head AND Neck W/ Contrast Date of E xam: 12/14/24 Exam# [id number] Ordering Dr: Cristobal Mayo DO PROCEDURE: CTA [...] RIGHT Vertebral: Unremarkable. LEFT Vertebral: Unremarkable. Anatomy: Robinson of [place] anatomy is normal. Aneurysm or [...] internal carotid artery. Cerebral atrophy. [facility] CC: Dr. Robel Onofre, DO; Dr. Cristobal Mayo DO ~ External Grinder: Signed [facility] 12-14-2024 Instructions Asha Hernandez, GIA.[facility] - 12/14/2024 12:22 PM EDT We [...] contact our office. documented in this encounter [facility] 12-14-2024 Note HNO ID: [id number] Author: ASHA HERNANDEZ APRN.LEO Service: ? Author Type: Nurse Practitioner Type: Progress Notes Filed: 12/14/2024 12:34 Note Text: CC: Patient presents with: Vertigo: Dizziness x 1 day HPI Recording using FXTrip software for draft documentation of the visit was discussed with the patient/authorized auto service representative; all questions welcomed and answered. Patient/authorized auto service representative agreed to proceed Daryn is [...] Macular degeneration NSTEMI (non-ST elevated myocardial infarction) ([facility]) 10/28/2019 Osteoarthritis of left hip Paresthesia PMH [...] 07/28/2007 DIR RPR ANEURYSM ABDOMINAL AORTA 04/20/2011 [facility] EYLEA (AFLIBERCEPT) 2MG INTRAVITREAL INJECTION OD [...] Age of Onset Heart Mother age 60 [place], smoker None Father age 77 MVA Cataract Father No Known Problems Sister No Known Problems Brother No Known Problems (more content not included)... [facility] 12-14-2024 History of Present illness Narrative CC: Patient presents with: Vertigo: Dizziness x 1 day HPI Recording using FXTrip software for draft documentation of the visit was discussed with the patient/authorized auto service representative; all questions welcomed and answered. Patient/authorized auto service representative agreed to proceed Daryn is [...] Macular degeneration NSTEMI (non-ST elevated myocardial infarction) ([facility]) 10/28/2019 Osteoarthritis of left hip Paresthesia PMH [...] 07/28/2007 DIR RPR ANEURYSM ABDOMINAL AORTA 04/20/2011 [facility] EYLEA (AFLIBERCEPT) 2MG INTRAVITREAL INJECTION OD [...] Age of Onset Heart Mother age 60 [place], smoker None Father age 77 MVA Cataract [...] Left Ear: Tympanic membrane normal. Mouth/Throat: Lips: [place]. Mouth: Mucous membranes are moist. Pharynx: Oropharynx [...] Reflexes: Reflexes are normal and symmetric. Comments: Thayer-Hallpike- vertigo elicited with head turned to the right however nystagmus was absent Assessment/Plan 1. Vertigo (R42) Nausea and vomiting, unspecified vomiting type (R11.2) Onset of vertigo occurred last evening when transitioning from a supine to sitting position. Described as room spinning, accompanied by nausea but no emesis. No associated otalgia, tinnitus, or recent upper respiratory infections. Neurological exam revealed no abnormalities. Thayer-Hallpike maneuver elicited vertigo when head turned to the right but negative for nystagmus. Differential diagnosis includes BPPV and potential cerebrovascular accident (CVA) due to age and cardiac history. - Recommended immediate evaluation in the emergency department for further diagnostic workup, including CT scan of the brain to rule out CVA. Patient is stable for his daughter to transport him to [facility] ER - Discussed potential treatments for [...] which included preparing to see the patient, [id number] patient care, completing clinical documentation, performing a medically appropriate examination, counseling and educating the patient/family/caregiver, and care coordination (not separately reported). Prescription instructions reviewed with patient as applicable. Potential red flag symptoms discussed with the patient. Reviewed appropriate action plan to take if red flag symptoms occur. Patient agreeable to treatment plan. Asha Hernandez APRN.CT TECH documented in this encounter [facility] 12-14-2024 Telephone encounter Note Pt's daughter calls [...] scheduled for this morning. Debra Romero LPN [facility] 12-14-2024 Miscellaneous Notes Pt's daughter calls to [...] Debra Romero LPN documented in this encounter [facility] 12-09-2024 Telephone encounter Note Prescription Refill Information [...] Sravanthi Mace December 09, 2024 2:48 PM [facility] 12-09-2024 Miscellaneous Notes Prescription Refill Information The [...] 2024 2:48 PM documented in this encounter [facility] 11-22-2024 Telephone encounter Note Patient has been [...] 12/27/2024 Please advise. Thank you. Vanessa Casillas. [facility] 11-22-2024 Miscellaneous Notes Patient has been identified [...] you. Vanessa Casillas. documented in this encounter [facility] 11-08-2024 Telephone encounter Note Prescription Refill Information [...] Sravanthi Mace November 08, 2024 8:43 AM [facility] 11-08-2024 Miscellaneous Notes Prescription Refill Information The [...] 2024 8:43 AM documented in this encounter [facility] 10-12-2024 Telephone encounter Note Letter signed on Nurse's desk 2nd floor. [facility] 10-12-2024 Miscellaneous Notes Letter signed on Nurse's [...] Person calling: daughter: Jadyn Lew patient at: [phone] Was an appointment scheduled: No Closing statement: Zenaida Mace documented in this encounter [facility] 10-12-2024 Telephone encounter Note Okay for letter. 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 Please compose letter for me to review and sign Robel Onofre DO [facility] 10-08-2024 Telephone encounter Note Shy is calling Robel Onofre DO today to request Letter (Blindness confirmation for taxes) Patient has been identified by name and birthdate. Duration of symptoms: N/A Person calling: daughter: Jadyn Lew patient at: [phone] Was an appointment scheduled: No Closing statement: Zenaida Mace [facility] Work Phone: 10-08-2024 Telephone encounter Note For your information: Patient's insurance is now [employer]. Daughter unable to supply further information. Will call back with info to update namita. [facility] 10-08-2024 Miscellaneous Notes For your information: Patient's [...] 2024 8:15 AM documented in this encounter [facility] 10-08-2024 Telephone encounter Note Prescription Refill Information [...] Zenaida Mace October 08, 2024 8:15 AM [facility] 09-02-2024 Telephone encounter Note Forms mailed to Jadyn's home address as requested. Copy placed in chart of forms. [facility] 09-02-2024 Miscellaneous Notes Forms mailed to Jadyn's [...] it to her in the mail at [address] [place], [place] [address]. Shahla Sofia RN Type of form: Deaf and blind form Form received via walk in When form is completed, PhoneTina when complete.[phone] Form has been forwarded to Physician Desk: Dr. Kinsg[place] Kirk LPN documented in this encounter [facility] 09-01-2024 Telephone encounter Note Paperwork is complete now Robel Onofre DO [facility] 09-01-2024 Telephone encounter Note Daughter calls to ask if form could be completed today as she is unexpectedly leaving to go out of town late this afternoon. Notified daughter that I was uncertain that letter would be completed that quickly. Daughter voices understanding and requests if can't be completed today to please send it to her in the mail at [address] [place], [place] [address]. Shahla Sofia RN [facility] 08-30-2024 Telephone encounter Note Type of form: Deaf and blind form Form received via walk in When form is completed, PhoneTina when complete.[phone] Form has been forwarded to Physician Desk: Dr. Kingston Kirk LPN [facility] 08-11-2024 Telephone encounter Note Prescription Refill Information [...] Lorrie Mace August 11, 2024 10:59 AM [facility] 08-11-2024 Miscellaneous Notes Prescription Refill Information The [...] 2024 10:59 AM documented in this encounter [facility] 07-01-2024 Telephone encounter Note Patient notified and verbalized understanding. Kortney Bonner LPN [facility] 07-01-2024 Miscellaneous Notes Patient notified and verbalized understanding. Kortney Bonner LPN Please inform patient or daughters that his labs are overall stable. Urine has a little protein and is dark and concentrated. Needs to be drinking more water. Robel Onofre DO documented in this encounter [facility] 07-01-2024 Telephone encounter Note Please inform patient or daughters that his labs are overall stable. Urine has a little protein and is dark and concentrated. Needs to be drinking more water. Robel Onofre DO [facility] 06-30-2024 Note HNO ID: [id number] Author: ROBEL ONOFRE DO Service: ? Author [...] taking medications as prescribed. Continues to see Travel Consultant for followup Iron deficiency, eating iron rich foods,no signs of bleeding. Last labs in November Mood, overall stable, taking Sertraline. Helps to care for his with dementia. Daughter feels he is doing well. Has fatigue, wondering if can try vitamin b12 injections PAST MEDICAL HISTORY Diagnosis Date Acute bronchitis Aneurysm of abdominal aorta ([facility]) 04/20/2011. Lower abdomen. BPH (benign prostatic hyperplasia) CAD (coronary artery disease) Diverticulosis of colon (without mention of hemorrhage) GERD (gastroesophageal reflux disease) Hyperlipidemia Hypertension Internal hemorrhoids without mention of complication Macular degeneration NSTEMI (non-ST elevated myocardial infarction) ([facility]) 10/28/2019 Osteoarthritis of left hip Paresthesia PMH [...] 07/28/2007 DIR RPR ANEURYSM ABDOMINAL AORTA 04/20/2011 [place] EYLEA (AFLIBERCEPT) 2MG INTRAVITREAL INJECTION OD [...] 4 extremities Ne (more content not included)... [facility] 06-30-2024 History of Present illness Narrative CC: [...] taking medications as prescribed. Continues to see Travel Consultant for followup Iron deficiency, eating iron rich foods,no signs of bleeding. Last labs in November Mood, overall stable, taking Sertraline. Helps to care for his with dementia. Daughter feels he is doing well. Has fatigue, wondering if can try vitamin b12 injections PAST MEDICAL HISTORY Diagnosis Date Acute bronchitis Aneurysm of abdominal aorta ([facility]) 04/20/2011. Lower abdomen. BPH (benign prostatic hyperplasia) CAD (coronary artery disease) Diverticulosis of colon (without mention of hemorrhage) GERD (gastroesophageal reflux disease) Hyperlipidemia Hypertension Internal hemorrhoids without mention of complication Macular degeneration NSTEMI (non-ST elevated myocardial infarction) ([facility]) 10/28/2019 Osteoarthritis of left hip Paresthesia PMH [...] 07/28/2007 DIR RPR ANEURYSM ABDOMINAL AORTA 04/20/2011 [place] EYLEA (AFLIBERCEPT) 2MG INTRAVITREAL INJECTION OD [...] See patient instructions. Robel Onofre DO [address] [place] [address] documented in this encounter [facility] 05-04-2024 Telephone encounter Note Prescription Refill Information [...] Zenaida Mace May 04, 2024 11:46 AM [facility] 05-04-2024 Miscellaneous Notes Prescription Refill Information The [...] 2024 11:46 AM documented in this encounter [facility] 03-10-2024 History of Present illness Narrative Chief [...] - SERTRALINE 25 MG TABLET Bessie Ambrocio APRN.CT TECH Currently: Accompanied by daughter Zulema today. Mood-significant [...] Macular degeneration NSTEMI (non-ST elevated myocardial infarction) ([facility]) 10/28/2019 Osteoarthritis of left hip Paresthesia PMH [...] 07/28/2007 DIR RPR ANEURYSM ABDOMINAL AORTA 04/20/2011 [facility] EYLEA (AFLIBERCEPT) 2MG INTRAVITREAL INJECTION OD [...] Age of Onset Heart Mother age 60 [place], smoker None Father age 77 MVA Cataract [...] in no acute distress, well-hydrated, well nourished. [place]. Psychiatric: pleasant, cooperative. Health Maintenance List DTaP,Tdap,Td [...] - SERTRALINE 25 MG TABLET Bessie Ambrocio APRN.CT TECH documented in this encounter [facility] 02-04-2024 History of Present illness Narrative Chief [...] Date Acute bronchitis Aneurysm of abdominal aorta ([facility]) 04/20/2011. Lower abdomen. BPH (benign prostatic hyperplasia) CAD (coronary artery disease) Diverticulosis of colon (without mention of hemorrhage) GERD (gastroesophageal reflux disease) Hyperlipidemia Hypertension Internal hemorrhoids without mention of complication Macular degeneration NSTEMI (non-ST elevated myocardial infarction) ([facility]) 10/28/2019 Osteoarthritis of left hip Paresthesia PMH [...] 07/28/2007 DIR RPR ANEURYSM ABDOMINAL AORTA 04/20/2011 [place] EYLEA (AFLIBERCEPT) 2MG INTRAVITREAL INJECTION OD [...] Age of Onset Heart Mother age 60 [place], smoker None Father age 77 MVA Cataract [...] in no acute distress, well-hydrated, well nourished. [place], significantly decreased sight.. Lungs: Lungs clear to [...] Bessie Ambrocio APRN.CNP\ documented in this encounter [facility] 01-26-2024 Telephone encounter Note Spoke to daughter patient was scheduled. Did make 40 min due to multiple concerns Abby Hardy MA [facility] 01-26-2024 Miscellaneous Notes Spoke to daughter patient was scheduled. Did make 40 min due to multiple concerns Abby Hardy MA Needs appointment to assess and discuss. Thank you, Cat Foote APRN.CT TECH Patient's daughter Jadyn calling stating that patient has been having issues with depression that seems to be getting worse due to 's worsening symptoms of dementia. Jadyn states that Todd is ready to try medication for this and is wondering if something could be sent to pharmacy. Please call Jadyn back once addressed. documented in this encounter [facility] 01-26-2024 Telephone encounter Note Needs appointment to assess and discuss. Thank you, Cat Foote APRN.CT TECH [facility] 01-26-2024 Telephone encounter Note Patient's daughter Jadyn calling stating that patient has been having issues with depression that seems to be getting worse due to 's worsening symptoms of dementia. Jadyn states that Todd is ready to try medication for this and is wondering if something could be sent to pharmacy. Please call Jadyn back once addressed. [facility] 01-16-2024 Telephone encounter Note TC to patients daughter Jadyn who is listed in chart to receive medical information. Jadyn verbalized understanding of providers message and has no questions at this time. MINA Myers [facility] 01-16-2024 Miscellaneous Notes TC to patients daughter [...] Robel Onofre DO documented in this encounter [facility] 01-16-2024 Telephone encounter Note Please let him know that overall his labs look much better, improved from previous labs. Now alkaline phosphatase is normal. Renal and liver function is normal. Triglycerides are just slightly high which is related to fatty meat and sugars. Cut back on this if able Robel Onofre DO [facility] 01-01-2024 Telephone encounter Note Jadyn- Daughter notified and verbalized understanding. Marylu Villanueva MA [facility] 01-01-2024 Miscellaneous Notes Jadyn- Daughter notified and [...] Robel Onofre DO documented in this encounter [facility] 01-01-2024 Telephone encounter Note Please call patient and let him know that his recent labs show that his 1 liver enzyme called alkaline phosphatase is sligthly high and his serum creatinine is also slightly high. I would like him to increase his electrolyte rich water intake to at least 60-80 oz a day and recheck labs in 2 weeks. Robel Onofre DO [facility] 12-22-2023 History of Present illness Narrative CC: [...] taking medications as prescribed. Continues to see Travel Consultant for followup Iron deficiency, eating iron rich [...] Macular degeneration NSTEMI (non-ST elevated myocardial infarction) ([facility]) 10/28/2019 Osteoarthritis of left hip Paresthesia PMH [...] 07/28/2007 DIR RPR ANEURYSM ABDOMINAL AORTA 04/20/2011 [facility] EYLEA (AFLIBERCEPT) 2MG INTRAVITREAL INJECTION OD [...] Age of Onset Heart Mother age 60 [place], smoker None Father age 77 MVA Cataract [...] agreed with the plan. Robel Onofre DO [address] [place] [address] documented in this encounter [facility] 11-25-2023 Miscellaneous Notes Spoke with pt and [...] you. Rodney Mace. documented in this encounter [facility] 11-12-2023 Miscellaneous Notes Patient has been identified [...] you. Lidia Galvez. documented in this encounter [facility] 10-14-2023 Miscellaneous Notes Patient has been identified [...] Marisela Lilly Pss. documented in this encounter [facility] 07-31-2023 Miscellaneous Notes KIRAN 06/13/23 Scheduled 12/22/23 Patient has been identified by name and date of : Yes Requested Prescriptions Pending Prescriptions Disp Refills tamsulosin (FLOMAX) 0.4 mg 180 capsule 3 Sig: Take 2 capsules by mouth once daily. RX INSTRUCTIONS: Patient aware RX will be sent to pharmacy. No need to notify patient. Lidia Galvez documented in this encounter [facility] 07-31-2023 Miscellaneous Notes Called pts daughter who is his credit correspondence clerk gave information provided. She voices understanding. Asked this me mailed to home address,. Printed and sent to home address as asked. rx written in letters and sent to patient. Also printed if they need this as well Please inform Robel Onofre DO Last office visit - 06/13/2023 Patients credit correspondence clerk calling asking if they can please get a script for a stair lift chair. Thank you documented in this encounter [facility] 07-25-2023 Miscellaneous Notes Kiran--06/13/23 Nov--12/22/23 Last refill--12/05/20 [...] patient. Lakesha Mace documented in this encounter [facility] 06-14-2023 History of Present illness Narrative CC: [...] taking medications as prescribed. Continues to see Travel Consultant for followup Iron deficiency, eating iron rich foods,no signs of bleeding. Last labs in November PAST MEDICAL HISTORY Diagnosis Date Acute bronchitis Aneurysm of abdominal aorta ([facility]) 04/20/2011. Lower abdomen. BPH (benign prostatic hyperplasia) CAD (coronary artery disease) Diverticulosis of colon (without mention of hemorrhage) GERD (gastroesophageal reflux disease) Hyperlipidemia Hypertension Internal hemorrhoids without mention of complication Macular degeneration NSTEMI (non-ST elevated myocardial infarction) ([facility]) 10/28/2019 Osteoarthritis of left hip Paresthesia PMH [...] 07/28/2007 DIR RPR ANEURYSM ABDOMINAL AORTA 04/20/2011 [facility] EYLEA (AFLIBERCEPT) 2MG INTRAVITREAL INJECTION OD [...] plan. See patient instructions. Robel Onofre DO [address] [place] [address] documented in this encounter [facility] 03-31-2023 Miscellaneous Notes Kiran--12/06/22 Nov--06/13/23 Last refill--lisinopril--10/07/22 90 with 1 refill Hctz--04/03/22 90 with 3 refills Last labs--12/06/22 Pharmacy verified in [facility] Patient has been identified by name and [...] Zenaida Zacarias Pss documented in this encounter [facility] 02-12-2023 Miscellaneous Notes Patient has been identified [...] advise. Sravanthi Mace documented in this encounter [facility] 02-05-2023 Miscellaneous Notes Given Rx's to daughter. Order signed Robel Onofre DO Order and Handicap placard letter placed on provider's desk to sign. Nury Levy RN Order placed Robel Onofre DO Patient requesting prescription of Handicap placard. Patient has two cars not sure if he needs two scripts or just one? Please advise and call Zulema Bernstein when ready for pick up man. documented in this encounter [facility] 12-25-2022 Miscellaneous Notes Patient's daughter Jadyn calls [...] Robel Onofre DO documented in this encounter [facility] 12-06-2022 History of Present illness Narrative CC: [...] taking medications as prescribed. Will be seeing Travel Consultant for follow up next week Iron deficiency, [...] Macular degeneration NSTEMI (non-ST elevated myocardial infarction) ([facility]) 10/28/2019 Osteoarthritis of left hip Paresthesia PMH [...] 07/28/2007 DIR RPR ANEURYSM ABDOMINAL AORTA 04/20/2011 [facility] EYLEA (AFLIBERCEPT) 2MG INTRAVITREAL INJECTION OD [...] Age of Onset Heart Mother age 60 NC, smoker None Father age 77 MVA Cataract [...] with the plan. Robel Onofre DO [address] [place] [address] documented in this encounter [facility] 11-18-2022 Miscellaneous Notes Patient has been identified [...] Rodney Kirk LPN documented in this encounter [facility] 10-17-2022 Miscellaneous Notes Last office visit: 07/03/22 F/u scheduled: 12/06/22 Mikaela Varghese [facility] Pharmacy verified in [facility] Patient has been identified by name and [...] Zenaida Zacarias Pss documented in this encounter [facility] 10-07-2022 Miscellaneous Notes Kiran--07/03/22 Nov--12/06/22 Last refill--protonix--06/14/22 [...] Lorrie Latham Pss documented in this encounter [facility] 09-10-2022 Miscellaneous Notes Patient has been identified by name and date of : Yes Requested Prescriptions Pending Prescriptions Disp Refills atenolol (TENORMIN) 50 mg tablet 90 tablet 3 Sig: Take 1 tablet by mouth once daily. RX INSTRUCTIONS: Patient aware RX will be sent to pharmacy. No need to notify patient. Lorrie Latham Pss documented in this encounter [facility] 07-24-2022 Miscellaneous Notes Patient has been identified [...] you. Cat Trammell documented in this encounter [facility] 07-04-2022 Miscellaneous Notes Spoke with pt's daughter [...] Bessie Ambrocio APRN.CNP documented in this encounter [facility] 07-03-2022 History of Present illness Narrative Chief Complaint Patient presents with: [facility] Todd Matamoros is a 82 year old male who presents here today for Above Complaints.. Today: Was admitted to [facility] on 06/13 for coffee ground emesis. [...] Macular degeneration NSTEMI (non-ST elevated myocardial infarction) ([facility]) 10/28/2019 Osteoarthritis of left hip Paresthesia PMH [...] 07/28/2007 DIR RPR ANEURYSM ABDOMINAL AORTA 04/20/2011 [facility] EYLEA (AFLIBERCEPT) 2MG INTRAVITREAL INJECTION OD [...] Age of Onset Heart Mother age 60 [place], smoker None Father age 77 MVA Cataract [...] visit - Goal of BP <130/80 2. Maegan-Feldman tear - ICD9: 530.7, ICD10: K22.6 Sx has resolved. Following with Dr. Tesfaye in general surgery. Bessie Ambrocio APRN.LEO documented in this encounter [facility] 06-27-2022 Miscellaneous Notes TC to patient who [...] Robel Onofre DO documented in this encounter [facility] 06-21-2022 Miscellaneous Notes Pt daughter informed of [...] having procedure. Please advise daughter Shy at [phone]. Thank you. documented in this encounter [facility] 06-17-2022 Miscellaneous Notes Noted. Good to hear. Thank you, Cat Lentz APRN.CT TECH Spoke with pts son pt is with [...] should be sooner if able. Thank you, aCt Lentz APRN.CT TECH Daughter calls and states pt had hernia surgery last 06-12-22. Pt was having complications and was admitted to [facility] 06-13-22 vomiting black coffee ground. and [...] Tiffanie Latham LPN documented in this encounter [facility] 06-17-2022 History of Present illness Narrative TRANSITION CARE MANAGEMENT (TCM) INITIAL CONTACT Flanging Operator Outreach Provider Action/FYI: Pt having low blood pressure, daughter called in. Phone encounter made for this. Initial contact with patient post discharge, spoke to daughter. Patient identified by name and . TRANSITION CARE MANAGEMENT INITIAL OUTREACH DOCUMENTATION: Date of Outreach: 06/17/2022 Outreach Attempt 1: Contact Made Date of Discharge 06/08/2022 Some recent data might be hidden SUMMARY: -Pt discharged from [facility] on 06/08/22. -Admitted for: vomiting coffee [...] records from recent hospitalization: Records are at [facility] documented in this encounter [facility] 06-13-[address] Tesfaye aware and [...] Delma Mojica RN documented in this encounter [facility] 06-12-2022 Note HNO ID: [id number] Author: Tamara Stinson APRN.CRNA Service: Anesthesiology Author Type: Nurse Die Cast Die Maker Type: Anesthesia Procedure Notes Filed: 06/12/2022 12:03 PM Note Text: ANESTHESIOLOGY PROCEDURE NOTE Airway General Information Procedure Start Time/Medication Administration: 06/12/2022 11:46 AM Patient location during procedure: OR Timeout Performed Pre-procedure: timeout performed Consent Obtained: Yes Patient identity confirmed: arm band and care development team lead Staffing RESEARCH ATTORNEY: Tamara Stinson APRN.RESEARCH ATTORNEY Performed by: SARI Indications and Patient Condition [...] attempts at approach: 1 SIGNATURE: Tamara Stinson APRN.RESEARCH ATTORNEY PATIENT NAME: Todd Matamoros DATE: June 12, 2022 TIME: 12:02 PM CSN: [id number] [facility] 06-12-2022 Surgical operation note OPERATIVE/PROCEDURE REPORT LOG ID: [id number] SURGERY/PROCEDURE DATE: 06/12/2022 INCISION/PROCEDURE START TIME: 12:00 PM INCISION CLOSE/PROCEDURE END TIME: 12:49 PM SURGEON(S)/PROCEDURALIST(S) AND MANAGER PHYSICAL(S): Surgeon(s) and Role: * Florencio Tesfaye MD - Primary Nurse Practitioner: Nuria Banks APRN.CT TECH Physician Recruiting Consultant: Indy Mosqueda PA-C SURGERY/PROCEDURE(S): Laparoscopic bilateral inguinal hernia repair with mesh ANESTHESIA: General SURGERY/PROCEDURE DETAILS: Patient was brought into the operating room. Placed in the supine position. Under excellent general anesthetic the abdomen was sterilely prepped and draped in the usual fashion. Local was injected supraumbilically. Dissection was carried down to the fascia the fascia was grasped with a Jefferson varies needle was placed inside the abdomen [...] the fascia the umbilical port with a [id number] stitch of 0 Vicryl. Skin incisions were closed with subcuticular stitches of 4-0 Monocryl. Steri-Strips were applied sterile dressings were applied patient tolerated the procedure well. Nuria Banks CNP was my assistant professor of theater. She assisted with retraction, visualization and performed [...] TIME: 12:53 PM documented in this encounter [facility] 06-12-2022 History and physical note Images from [...] Date Acute bronchitis Aneurysm of abdominal aorta ([facility]) 04/20/2011. Lower abdomen. BPH (benign prostatic hyperplasia) CAD (coronary artery disease) Diverticulosis of colon (without mention of hemorrhage) GERD (gastroesophageal reflux disease) Hyperlipidemia Hypertension Internal hemorrhoids without mention of complication Macular degeneration NSTEMI (non-ST elevated myocardial infarction) ([facility]) 10/28/2019 Osteoarthritis of left hip Paresthesia PMH [...] 07/28/07 DIR RPR ANEURYSM ABDOMINAL AORTA 04/20/2011 [place] EYLEA (AFLIBERCEPT) 2MG INTRAVITREAL INJECTION OD [...] Age of Onset Heart Mother age 60 [place], smoker None Father age 77 MVA Cataract [...] right inguinal hernia repair with mesh - [id number] Anticipated Anesthetic: General Patient weight: Blood pressure 133/63, pulse (!) 59, temperature 36.4 C (97.6 F), weight 82 kg (180 lb 12.8 oz), SpO2 96 %. BMI: Body mass index is 28.32 kg/m . Planned antibiotic: Ancef 2gm IVPB second floor operator to OR SCDs needed - Yes Return [...] TIME: 11:11 AM documented in this encounter [facility] 06-07-2022 Miscellaneous Notes Received letter from Dr. Donald's office with notification to stop Plavix for 5 days prior to procedure but can continue aspirin therapy due to cardiac stent. TE from Erickson rasheed today notifying patient of instructions. Copy of letter given to Luiza Rivers CNP and original sent to roller die cutting machine operator to scan. Gianna Branham LPN documented in this encounter [facility] 06-07-2022 Miscellaneous Notes Message left for Dr Donald for permission to hold plavix 5 day sprior ro 06/12/22 surgery. Received a call back from Saida BAKER at Dr Donald's office. They did not receive letter from our office requesting plavix instructions. Per Dr Donald, pt may hold plavix 5 days prior to surgery as his stent was done over 1 year ago. Will fax letter to his office for Dr Moodispaw to sign. Spoke with pt this mornng and instructed to hold Plavix starting today, 06/07/22. Pt verbalized understanding. Erickson Alvares RN June 07, 2022 10:44 AM documented in this encounter [facility] 06-04-2022 History of Past i llness Narrative Problem Noted Date Resolved Date Right inguinal hernia 06/04/2022 06/12/2022 documented as of this encounter (statuses as of 06/13/2022) [facility] History of Past illness Narrative* Problem Noted Date Resolved Date Right inguinal hernia 06/04/2022 06/12/2022 documented as of this encounter (statuses as of 06/13/2022) [facility] History of Past illness Narrative* Problem Noted Date Resolved Date Right inguinal hernia 06/04/2022 06/12/2022 documented as of this encounter (statuses as of 06/21/2022) [facility] History of Past illness Narrative* Problem Noted Date Resolved Date Right inguinal hernia 06/04/2022 06/12/2022 documented as of this encounter (statuses as of 06/24/2022) [facility] History of Past illness Narrative* Problem Noted Date Resolved Date Right inguinal hernia 06/04/2022 06/12/2022 documented as of this encounter (statuses as of 06/25/2022) [facility] History of Past illness Narrative* Problem Noted Date Resolved Date Right inguinal hernia 06/04/2022 06/12/2022 documented as of this encounter (statuses as of 06/27/2022) [facility] History of Past illness Narrative* Problem Noted Date Resolved Date Right inguinal hernia 06/04/2022 06/12/2022 documented as of this encounter (statuses as of 07/03/2022) [facility] History of Past illness Narrative* Problem Noted Date Resolved Date Right inguinal hernia 06/04/2022 06/12/2022 documented as of this encounter (statuses as of 07/04/2022) [facility] History of Past illness Narrative* Problem Noted Date Resolved Date Right inguinal hernia 06/04/2022 06/12/2022 documented as of this encounter (statuses as of 07/24/2022) [address]11-2022 History of Past illness Narrative* Problem Noted Date Resolved Date Right inguinal hernia 06/04/2022 06/12/2022 documented as of this encounter (statuses as of 09/11/2022) [address]22 History of Past illness Narrative* Problem Noted Date Resolved Date Right inguinal hernia 06/04/2022 06/12/2022 documented as of this encounter (statuses as of 10/08/2022) [facility] History of Past illness Narrative* Problem Noted Date Resolved Date Right inguinal hernia 06/04/2022 06/12/2022 documented as of this encounter (statuses as of 10/17/2022) [facility] History of Past illness Narrative* Problem Noted Date Resolved Date Right inguinal hernia 06/04/2022 06/12/2022 documented as of this encounter (statuses as of 11/18/2022) [address]22 History of Past illness Narrative* Problem Noted Date Resolved Date Right inguinal hernia 06/04/2022 06/12/2022 documented as of this encounter (statuses as of 12/06/2022) [facility] History of Past illness Narrative* Problem Noted Date Resolved Date Right inguinal hernia 06/04/2022 06/12/2022 documented as of this encounter (statuses as of 12/26/2022) [address]22 History of Past illness Narrative* Problem Noted Date Resolved Date Right inguinal hernia 06/04/2022 06/12/2022 documented as of this encounter (statuses as of 02/05/2023) [facility] History of Past illness Narrative* Problem Noted Date Resolved Date Right inguinal hernia 06/04/2022 06/12/2022 documented as of this encounter (statuses as of 02/12/2023) [address]22 History of Past illness Narrative* Problem Noted Date Diagnosed Date Resolved Date Right inguinal hernia 06/04/20222021 documented as of this encounter (statuses as of 03/31/2023) [facility] History of Past illness Narrative* Problem Noted Date Diagnosed Date Resolved Date Right inguinal hernia 06/04/20222021 documented as of this encounter (statuses as of 06/18/2023) [address]22 History of Past illness Narrative* Problem Noted Date Diagnosed Date Resolved Date Right inguinal hernia 06/04/20222021 documented as of this encounter (statuses as of 07/25/2023) [address]22 History of Past illness Narrative* Problem Noted Date Diagnosed Date Resolved Date Right inguinal hernia 06/04/20222021 documented as of this encounter (statuses as of 07/31/2023) [facility] History of Past illness Narrative* Problem Noted Date Diagnosed Date Resolved Date Right inguinal hernia 06/04/20222021 documented as of this encounter (statuses as of 07/31/2023) [facility] History of Past illness Narrative* Problem Noted Date Diagnosed Date Resolved Date Right inguinal hernia 06/04/20222021 documented as of this encounter (statuses as of 10/15/2023) [facility] History of Past illness Narrative* Problem Noted Date Diagnosed Date Resolved Date Right inguinal hernia 06/04/20222021 documented as of this encounter (statuses as of 11/13/2023) [facility] History of Past illness Narrative* Problem Noted Date Diagnosed Date Resolved Date Right inguinal hernia 06/04/20222021 documented as of this encounter (statuses as of 11/24/2023) [facility] History of Past illness Narrative* Problem Noted Date Diagnosed Date Resolved Date Right inguinal hernia 06/04/20222021 documented as of this encounter (statuses as of 11/25/2023) [facility] History of Present illness Narrative* Robel Onofre, [...] Macular degeneration NSTEMI (non-ST elevated myocardial infarction) ([facility]) 10/28/2019 Osteoarthritis of left hip Paresthesia PMH [...] 07/28/07 DIR RPR ANEURYSM ABDOMINAL AORTA 04/20/2011 [place] EYLEA (AFLIBERCEPT) 2MG INTRAVITREAL INJECTION OD [...] Age of Onset Heart Mother age 60 [place], smoker None Father age 77 MVA Cataract [...] - ICD9: 362.52, ICD10: H35.3230 F/u with Automotive Design Layout Drafter 11. Screening for prostate cancer - ICD9: [...] with the plan. Robel Onofre DO [address] [place] [address] [facility] History and physical note * Luiza Rivers APRN.CT TECH - 05/31/2022 8:55 AM EDT HISTORY AND [...] fevers. Neurological: No history of TIA's, stroke, PERSONAL COACH tumor, impaired sensorium, hemiplegia, paraplegia orquadraplegia. No neurological symptoms or problems. Respiratory: No history of current cough or dyspnea, or pneumonia in the past 6 weeks. No history of respiratory/pulmonary symptoms or problems. Cardiovascular: Positive for: abdominal aortic aneurysm (s/p repair), anticoagulation therapy (ASA, Plavix), CAD, hyperlipidemia (on rx), hypertension (on rx) and open heart surgery Patient's last office visit with quarry boss, [facility], The following tests and/or procedures were performed: cardiac stents. Negative for: arrhythmia, atrial fibrillation, chest pain, CHF, congenital heart defect, DVT/PE, recent NC, murmur/valvular heart disease and valve surgery. GI: [...] ACETBLR/PROX FEM PROSTC AGRFT/ALGRFT Left 11/26/2017 Dr. Sukhjidner Lewis AVASTIN (BEVACIZUMAB) 1.25MG INTRAVITREAL INJECTION OD (RIGHT EYE) Right multiple COLONOSCOPY FLX DX W/COLLJ SPEC WHEN PFRMD 07/28/07 DIR RPR ANEURYSM ABDOMINAL AORTA 04/20/2011 [facility] EYLEA (AFLIBERCEPT) 2MG INTRAVITREAL INJECTION OD [...] Age of Onset Heart Mother age 60 [place], smoker None Father age 77 MVA Cataract [...] or any previous visit (from the past 92725 hour(s)). Assessment BPH associated with nocturia Assessment: controlled on rx Coronary artery disease due to lipid rich plaque Assessment: s/p CABG and stent, daily statin, BB, and ASA therapy. Also on Plavix, AC letter faxed to quarry boss office. Follows [facility], last OV 09/2021 scanned into [employer]. Denies CP, palpitations or SOB Familial hypercholesterolemia [...] have a large neck STOP-Bang Score: 3 [id number] Score: Age: >=75 Sex: male CHF history: No Hypertension history: Yes Stroke/TIA/thromboembolism history: No Vascular disease history: Yes Diabetes history: No [id number] Score: 4 ARISCAT Score: Age: >80 Preoperative [...] and consent discussed: yes. Patient / Responsible Green Party agrees to proceed: yes Patient / Surrogate agrees to blood products: blood products not planned Prepared for Surgery: optimally prepared for surgery, pending [see comment]. Labs AC letter faxed to [facility] CONSULTS: Patient does not require [...] 8:55 AM PAGER/CONTACT #: documented in [facility] Instructions* Patient Instructions* Luiza Rivers APRN.CNP - 05/31/2022 8:55 AM EDT PATIENT PREOPERATIVE INSTRUCTIONS Florencio Tesfaye MD has scheduled you for your procedure at this surgery center: [facility]: [phone] -- [address] [facility] [address]. Please read below carefully for your personalized [...] Procedures: - YOU MUST HAVE A RESPONSIBLE COMPOSING MACHINE OPERATOR TAKE YOU HOME. A TRACK LINER OPERATOR OR GREETER GUEST SERVICES CANNOT BE MADE A RESPONSIBLE COMPOSING MACHINE OPERATOR. - We recommend that a responsible person [...] Advance Directive, please fax a copy to [phone] or email to for it to be [...] day. Luiza Rivers APRN.LEO documented in [facility] History of Present illness Narrative* Florencio Tesfaye [...] Macular degeneration NSTEMI (non-ST elevated myocardial infarction) ([facility]) 10/28/2019 Osteoarthritis of left hip Paresthesia PMH [...] 07/28/07 DIR RPR ANEURYSM ABDOMINAL AORTA 04/20/2011 [place] EYLEA (AFLIBERCEPT) 2MG INTRAVITREAL INJECTION OD [...] Age of Onset Heart Mother age 60 [place], smoker None Father age 77 MVA Cataract [...] benefits, anticipated outcomesand possible complications were mentioned. [facility] that all hernia repair surgery has a [...] right inguinal hernia repair with mesh - [id number] Anticipated Anesthetic: General Patient weight: Blood pressure 133/63, pulse (!) 59, temperature 36.4 C (97.6 F), weight 82 kg (180lb 12.8 oz), SpO2 96 %. BMI: Body mass index is 28.32 kg/m . Planned antibiotic: Ancef 2gm IVPB second floor operator to OR SCDs needed - Yes Return [...] Florencio Tesfaye III, MD documented in [facility] Miscellaneous Notes* Telephone Encounter - Analilia Pedersen [...] patient. Delma Alatorre Pss documented in this encounterHol[facility] [place] Miscellaneous Notes* Telephone Encounter - NATHAN Myers [...] notify patient. Haritha Arias documented in this encounterHol[facility] [place] Miscellaneous Notes* Telephone Encounter - Marylu Jolly [...] week. Bessie Ambrocio APRN.LEO documented in this encounterHol[facility] [place] Miscellaneous Notes* Telephone Encounter - Bessie Ambrocio [...] declined. Shahla Sofia RN documented in this encounterHol[facility] [place] History of Present illness Narrative* Florencio Tesfaye [...] Date Acute bronchitis Aneurysm of abdominal aorta ([facility]) 04/20/2011. Lower abdomen. BPH (benign prostatic hyperplasia) CAD (coronary artery disease) Diverticulosis of colon (without mention of hemorrhage) GERD (gastroesophageal reflux disease) Hyperlipidemia Hypertension Internal hemorrhoids without mention of complication Macular degeneration NSTEMI (non-ST elevated myocardial infarction) ([facility]) 10/28/2019 Osteoarthritis of left hip Paresthesia PMH [...] 07/28/07 DIR RPR ANEURYSM ABDOMINAL AORTA 04/20/2011 [place] EYLEA (AFLIBERCEPT) 2MG INTRAVITREAL INJECTION OD [...] Age of Onset Heart Mother age 60 [place], smoker None Father age 77 MVA Cataract Father No Known Problems Sister No Known Problems Brother No Known Problems Sister No Known Problems Sister No Known Problems Sister Coronary Artery Disease Brother Coronary Artery Disease Brother REVIEW OF SYMPTOMS: The review of systems data was entered by the nurse and reviewed by wy Nursing Notes: Bhavna Anne RN 01/11/2022 8:09 [...] Florencio Tesfaye III, MD documented in this encounterHol[facility] [place] Nurse Note* Bhavna Anne RN - 01/11/2022 [...] 07/28/2007 Bhavna Anne RN documented in this encounterHol[facility] [place]05-12-2022 Miscellaneous Notes* Telephone Encounter - Bessie Ambrocio [...] Thanks Robel Onofre DO documented in this encounterHol[facility] [place]05-[facility]-2022 Miscellaneous Notes* Telephone Encounter - Jessica Moon Ma - 12/27/2021 2:48 PM EDT Faxed to [facility]. * Telephone Encounter - Bessie Ambrocio APRN.CNP - 12/27/2021 2:44 PM EDT New order placed per below request. Bessie Ambrocio APRN.CNP * Telephone Encounter - Torie King LPN - 12/27/2021 1:38 PM EDT [facility] technical administrative assistant Ju is calling to report if you are ruling out inguinal hernia the do not do this with an ultrasound at [facility]. It would be CT abd/pelvis with contrast. You can fax them a new order for CT. documented in this encounterHolzer [facility] [place]05-[facility]-2022 Miscellaneous Notes* Telephone Encounter - Nury Levy RN - 12/27/2021 8:13 AM EDT Patient's daughter calls and is requesting that ultrasound orders be faxed to [facility]. Orders faxed as requested. Nury Levy RN documented in this encounterHolzer [facility] [place]05-[facility] History of Present illness Narrative* Bessie Ambrocio APRN.CNP - 12/26/2021 3:06 PM EDT Chief Complaint Patient presents with: Mass: right groin area HPI Todd Maatmoros is a 81 year old male who [...] Macular degeneration NSTEMI (non-ST elevated myocardial infarction) ([facility]) 10/28/2019 Osteoarthritis of left hip Paresthesia PMH [...] 07/28/07 DIR RPR ANEURYSM ABDOMINAL AORTA 04/20/2011 [facility] EYLEA (AFLIBERCEPT) 2MG INTRAVITREAL INJECTION OD [...] Age of Onset Heart Mother age 60 [place], smoker None Father age 77 MVA Cataract [...] present as well. - [employer] e[employer]ssie Ambrocio APRN.CNP documented in this encounterHol[facility] [place]-2022 Miscellaneous Notes* Telephone Encounter - Bessie Ambrocio [...] to this. Scheduled same day appt with Lumber Scaler for evaluation. documented in this encounterHolzer [facility] [place]04-[facility] History of Present illness Narrative* Robel Onofre, [...] Macular degeneration NSTEMI (non-ST elevated myocardial infarction) ([facility]) 10/28/2019 Osteoarthritis of left hip Paresthesia PMH [...] 07/28/07 DIR RPR ANEURYSM ABDOMINAL AORTA 04/20/2011 [facility] EYLEA (AFLIBERCEPT) 2MG INTRAVITREAL INJECTION OD [...] 414.3, ICD10: I25.10, I25.83 - f/u with Travel Consultant as scheduled. stable 6. Hypertension, essential - [...] See patient instructions. Robel Onofre DO [address] [place] [address] [facility]* Diagnosis Onset Date Resolution Status Atherosclerosis of coronary artery bypass graft(s) without angina pectoris chronic Essential (primary) hypertension chronic Hyperlipemia, mixed chronic S/P CABG x 3 September 22, 1996 chronic Stented coronary artery October 28, 2019 [facility] Work Phone: Evaluation note* Diagnosis Presence of [...] hypertension Actinic keratosis [facility] [place] [facility]* Diagnosis Right inguinal pain- Primary Abdominal pain, right lower quadrant Inguinal bulge Abdominal or pelvic swelling, mass or lump, unspecified site [facility] [place] [facility]* Diagnosis Right groin pain- Primary Abdominal pain, right lower quadrant Localized enlarged lymph nodes Enlargement of lymph nodes [facility] [place] [facility]* Diagnosis Bilateral inguinal hernia without obstruction or gangrene, recurrence not specified- Primary [facility] [place] [facility]* Diagnosis Bilateral inguinal hernia without obstruction or gangrene, recurrence not specified [facility] [place] [facility]* Diagnosis Vitamin D deficiency- Primary Unspecified vitamin D deficiency Vitamin B12 deficiency Other B-complex deficiencies Elevated serum creatinine Other nonspecific findings on examination of blood documented in this encounter [facility] note* Diagnosis Right inguinal hernia- Primary Inguinal hernia without mention of obstruction or gangrene, unilateral or unspecified, (not specified as recurrent) Right inguinal hernia Inguinal hernia without mention of obstruction or gangrene, unilateral or unspecified, (not specified as recurrent) documented in this encounter [facility] note* Diagnosis Pre-operative examination- Primary Preoperative [...] specified as recurrent) [facility] [place] [facility]* Diagnosis Hypertension, essential- Primary Unspecified essential [...] specified as recurrent) [facility] [place] [facility]* Diagnosis Right inguinal hernia- Primary Inguinal hernia without mention of obstruction or gangrene, unilateral or unspecified, (not specified as recurrent) Right inguinal hernia Inguinal hernia without mention of obstruction or gangrene, unilateral or unspecified, (not specified as recurrent) [facility] [place] [facility]* Diagnosis Onset Date Resolution Status Upper GI bleed acute [facility] Work Phone: Evaluation note* Diagnosis Onset Date Resolution Status Acute blood loss anemia acut e PEPE (acute kidney injury) ac lobito Erosive esophagitis acute Leukocytosis acute Status post bilateral inguinal hernia repair acute Upper GI bleed acute Urinary retention acute [facility] Work Phone: Evaluation note* Diagnosis Hypotension, unspecified hypotension type- Primary [facility] [place] [facility]* Diagnosis Hypertension, essential- Primary Unspecified essential hypertension 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 [facility] [place] [facility]* Diagnosis Vitamin D deficiency Unspecified vitamin D deficiency Vitamin B12 deficiency Other B-complex deficiencies documented in this encounter [facility] note* Diagnosis Vitamin D deficiency- Primary [...] deficiency anemia type documented in this encounter [facility] note* Diagnosis Macular degeneration of both eyes, unspecified type- Primary [facility] Vitamin D deficiency Unspecified vitamin D deficiency Vitamin B12 deficiency Other B-complex deficiencies [facility] Diagnosis Hypertension, essential- Primary Unspecified essential [...] neoplasm of prostate [facility] [place] [facility]* Diagnosis Other eczema [facility] Diagnosis Vitamin D deficiency Unspecified vitamin D deficiency Vitamin B12 deficiency Other B-complex deficiencies [facility] [place] [facility]* Diagnosis Vitamin D deficiency Unspecified vitamin D deficiency Vitamin B12 deficiency Other B-complex deficiencies [facility] Diagnosis Vitamin D deficiency Unspecified vitamin D deficiency [facility] [place] [facility]* Diagnosis Hypertension, essential- Primary Unspecified essential [...] unspecified Actinic keratosis [facility] [place] [facility]* Diagnosis Elevated alkaline phosphatase level- Primary Other nonspecific abnormal serum enzyme levels Elevated serum creatinine Other nonspecific findings on examination of blood Thrombocytopenia (HCC) Thrombocytopenia, unspecified [facility]* Diagnosis Feelings of worthlessness- Primary Stress Other psychological or physical stress, not elsewhere classified Lack of motivation Other depression Macular degeneration of both eyes, unspecified type Bilateral hearing loss, unspecified hearing loss type [facility] [place] [facility]* Diagnosis Feelings of worthlessness- Primary Stress Other psychological or physical stress, not elsewhere classified Lack of motivation Other depression [facility] [place] [facility]* Diagnosis Pre-operative examination- Primary Preoperative examination, [...] motivation Other depression [facility] [place] [facility]* Diagnosis Pre-operative examination- Primary Preoperative examination, [...] glucose Other depression documented in this encounter [facility] note* Diagnosis Pre-operative examination- Primary Preoperative [...] Other B-complex deficiencies documented in this encounter [facility] note* Diagnosis Pre-operative examination- Primary Preoperative [...] motivation Other depression documented in this encounter [facility] note* Diagnosis Pre-operative examination- Primary Preoperative [...] vitamin D deficiency documented in this encounter [facility] noteNo assessment information availableWAshtabula [facility] Work Phone: Evaluation note* Diagnosis [...] Abnormality of gait documented in this encounter [facility] note* Diagnosis Pre-operative examination- Primary Preoperative [...] vertigo), unspecified laterality [facility] [place] [facility]* Diagnosis Pre-operative examination- Primary Preoperative examination, [...] Other B-complex deficiencies [facility] Diagnosis Pre-operative examination- Primary Preoperative examination, [...] motivation Other depression [facility] Instructions CT angiogram head and neck only mild plaque noted right internal carotid. No other acute findings. This is not causing her symptoms. EKG labs stable. Use meclizine as needed. Follow-up with her doctor. If Symptoms recur or worsens, return to ED for reevaluation.[facility] Work Phone: Reason for referral (narrative)* Diagnostic Procedure Only (Urgent) - Pending Review Specialty Diagnoses / Procedures Referred By Bala sheridan Referred To Contact US IMAGING Diagnoses Right inguinal pain Inguinal bulge Procedures US PELVIS LTD US PELVIC NONOBSTETRIC IMAGE DCMTN LIMITED/F/U Bessie Ambrocio, GIA.CT TECH [address] [place] [address] Us Imaging Referral ID Status Reason Start Date Expiration Date Visits Requested Visits Authorized [id number] Pending Review Auto-Generat ed Referral 12/26/2021 01/25/2023 1 1 [facility] for referral (narrative)No reason for referral information availableWAshtabula County Medical Center Work Phone: Instructions Instruction Description Start Date Patient advised to follow-up with Primary Care Physician for BMI management. Advance Directives No Advanced Directives Records FoundDocuments on File Type Date Recorded Patient Kettle Girl Expl anation ACP-Advance Directive ACP-Power of Ladle Mechanic Advance Directive Response Recorded Date/ Time Living Will Yes November 04, 2019 8:26am Power of Ladle Mechanic Yes November 03 8:26am Advance Directive Response Recorded Date/ Time Name of Medical Power of Ladle Mechanic Thierno Matamoros June 13, 2022 5:30pm Living Will Yes June 13 5:30pm Power of Ladle Mechanic Yes June 13, 2022 5:30pm Advance Directive Response Recorded Date/ Time Name of Medical Power of Ladle Mechanic Jadyn Peralta, Thierno Matamoros and Shy Bernstein June 13, 2022 8:21pm Living Will Yes June 13 8:21pm Power of Ladle Mechanic Yes June 13, 2022 8:21pm Advance Directive Response Recorded Date/ Time Do you have a Healthcare Power of Ladle Mechanic? No December 14, 2024 12:42pm Advance Directive Response Recorded Date/ Time Living Will Yes June 13 8:21pm Do you have a Healthcare Power of Ladle Mechanic? Yes June 13, 2022 8:21pm Do you have a Healthcare Power of Ladle Mechanic? 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 [place] [address] Specialty Diagnoses / Procedures Referred By Bala sheridan Referred To Contact CT IMAGING Diagnoses Localized enlarged lymph nodes Right groin pain Procedures CT ABD/PEL W IVCON CT ABD & PELVIS W/CONTRAST Robel Onofre, DO [address] [place] [address] Ct Imaging Referral ID Status Reason Start Date Expiration Date Visits Requested Visits Authorized [id number] Pending Review Auto-Generat ed Referral 12/27/2021 01/26/2023 1 1 Specialty Diagnoses / Procedures Referred By Bala sheridan Referred To Contact General Surgery Diagnoses Bilateral inguinal hernia without obstruction or gangrene, recurrence not specified Procedures CONSULT TO GENERAL SURGERY OFFICE/OUTPATIENT [facility] 60-74 MINUTES Robel Onofre, DO [address] [place] [address] Referral ID Status Reason Start Date Expiration Date Visits Requested Visits Authorized [id number] Authorized PCP Requested Referral 01/02/2022 01/02/2023 1 [...] section and content) DATE CREATED AUTHOR 06/22/2021 [facility] DATE CREATED AUTHOR AUTHOR'S ORGANIZ ATION 06/17/2022 [facility] DATE CREATED AUTHOR AUTHOR'S ORGANIZ ATION 06/27/2025 [facility] DATE CREATED AUTHOR AUTHOR'S ORGANIZ ATION 06/28/2025 [facility] DATE CREATED AUTHOR AUTHOR'S ORGANIZ ATION 07/01/2025 [facility] Source Comments (unrecognize d section and content) In the event this informatio n is protected by the Federal Confidentiality of Alcohol and Drug Abuse Patient Records regulations: The Federal rules restrict any use of the information to criminally investigate or prosecute any alcohol or drug abuse patient.[facility] Jackson[facility] the event this information is protected by the Federal Confidentiality of Alcohol and Drug Abuse Patient Records regulations: The Federal rules restrict any use of the information to criminally investigate or prosecute any alcohol or drug abuse patient.[facility] Jackson[facility] the event this information is protected by the Federal Confidentiality of Alcohol and Drug Abuse Patient Records regulations: The Federal rules restrict any use of the information to criminally investigate or prosecute any alcohol or drug abuse patient.[facility] JacksonIn the event this information is protected by the Federal Confidentiality of Alcohol and Drug Abuse Patient Records regulations: The Federal rules restrict any use of the information to criminally investigate or prosecute any alcohol or drug abuse patient.[facility] JacksonIn the event this information is protected by the Federal Confidentiality of Alcohol and Drug Abuse Patient Records regulations: The Federal rules restrict any use of the information to criminally investigate or prosecute any alcohol or drug abuse patient.[facility] JacksonIn the event this information is protected by the Federal Confidentiality of Alcohol and Drug Abuse Patient Records regulations: The Federal rules restrict any use of the information to criminally investigate or prosecute any alcohol or drug abuse patient.[facility] JacksonIn the event this information is protected by the Federal Confidentiality of Alcohol and Drug Abuse Patient Records regulations: The Federal rules restrict any use of the information to criminally investigate or prosecute any alcohol or drug abuse patient.[facility] JacksonIn the event this information is protected by the Federal Confidentiality of Alcohol and Drug Abuse Patient Records regulations: The Federal rules restrict any use of the information to criminally investigate or prosecute any alcohol or drug abuse patient.[facility] JacksonIn the event this information is protected by the Federal Confidentiality of Alcohol and Drug Abuse Patient Records regulations: The Federal rules restrict any use of the information to criminally investigate or prosecute any alcohol or drug abuse patient.[facility] JacksonIn the event this information is protected by the Federal Confidentiality of Alcohol and Drug Abuse Patient Records regulations: The Federal rules restrict any use of the information to criminally investigate or prosecute any alcohol or drug abuse patient.[facility] JacksonIn the event this information is protected by the Federal Confidentiality of Alcohol and Drug Abuse Patient Records regulations: The Federal rules restrict any use of the information to criminally investigate or prosecute any alcohol or drug abuse patient.[facility] JacksonIn the event this information is protected by the Federal Confidentiality of Alcohol and Drug Abuse Patient Records regulations: The Federal rules restrict any use of the information to criminally investigate or prosecute any alcohol or drug abuse patient.[facility] JacksonIn the event this information is protected by the Federal Confidentiality of Alcohol and Drug Abuse Patient Records regulations: The Federal rules restrict any use of the information to criminally investigate or prosecute any alcohol or drug abuse patient.[facility] JacksonIn the event this information is protected by the Federal Confidentiality of Alcohol and Drug Abuse Patient Records regulations: The Federal rules restrict any use of the information to criminally investigate or prosecute any alcohol or drug abuse patient.[facility] JacksonIn the event this information is protected by the Federal Confidentiality of Alcohol and Drug Abuse Patient Records regulations: The Federal rules restrict any use of the information to criminally investigate or prosecute any alcohol or drug abuse patient.[facility] JacksonIn the event this information is protected by the Federal Confidentiality of Alcohol and Drug Abuse Patient Records regulations: The Federal rules restrict any use of the information to criminally investigate or prosecute any alcohol or drug abuse patient.[facility] JacksonIn the event this information is protected by the Federal Confidentiality of Alcohol and Drug Abuse Patient Records regulations: The Federal rules restrict any use of the information to criminally investigate or prosecute any alcohol or drug abuse patient.[facility] JacksonIn the event this information is protected by the Federal Confidentiality of Alcohol and Drug Abuse Patient Records regulations: The Federal rules restrict any use of the information to criminally investigate or prosecute any alcohol or drug abuse patient.[facility] JacksonIn the event this information is protected by the Federal Confidentiality of Alcohol and Drug Abuse Patient Records regulations: The Federal rules restrict any use of the information to criminally investigate or prosecute any alcohol or drug abuse patient.[facility] JacksonIn the event this information is protected by the Federal Confidentiality of Alcohol and Drug Abuse Patient Records regulations: The Federal rules restrict any use of the information to criminally investigate or prosecute any alcohol or drug abuse patient.[facility] JacksonIn the event this information is protected by the Federal Confidentiality of Alcohol and Drug Abuse Patient Records regulations: The Federal rules restrict any use of the information to criminally investigate or prosecute any alcohol or drug abuse patient.[facility] JacksonIn the event this information is protected by the Federal Confidentiality of Alcohol and Drug Abuse Patient Records regulations: The Federal rules restrict any use of the information to criminally investigate or prosecute any alcohol or drug abuse patient.[facility] JacksonIn the event this information is protected by the Federal Confidentiality of Alcohol and Drug Abuse Patient Records regulations: The Federal rules restrict any use of the information to criminally investigate or prosecute any alcohol or drug abuse patient.[facility] JacksonIn the event this information is protected by the Federal Confidentiality of Alcohol and Drug Abuse Patient Records regulations: The Federal rules restrict any use of the information to criminally investigate or prosecute any alcohol or drug abuse patient.[facility] JacksonIn the event this information is protected by the Federal Confidentiality of Alcohol and Drug Abuse Patient Records regulations: The Federal rules restrict any use of the information to criminally investigate or prosecute any alcohol or drug abuse patient.[facility] JacksonIn the event this information is protected by the Federal Confidentiality of Alcohol and Drug Abuse Patient Records regulations: The Federal rules restrict any use of the information to criminally investigate or prosecute any alcohol or drug abuse patient.[facility] JacksonIn the event this information is protected by the Federal Confidentiality of Alcohol and Drug Abuse Patient Records regulations: The Federal rules restrict any use of the information to criminally investigate or prosecute any alcohol or drug abuse patient.[facility] JacksonIn the event this information is protected by the Federal Confidentiality of Alcohol and Drug Abuse Patient Records regulations: The Federal rules restrict any use of the information to criminally investigate or prosecute any alcohol or drug abuse patient.[facility] JacksonIn the event this information is protected by the Federal Confidentiality of Alcohol and Drug Abuse Patient Records regulations: The Federal rules restrict any use of the information to criminally investigate or prosecute any alcohol or drug abuse patient.[facility] JacksonIn the event this information is protected by the Federal Confidentiality of Alcohol and Drug Abuse Patient Records regulations: The Federal rules restrict any use of the information to criminally investigate or prosecute any alcohol or drug abuse patient.[facility] JacksonIn the event this information is protected by the Federal Confidentiality of Alcohol and Drug Abuse Patient Records regulations: The Federal rules restrict any use of the information to criminally investigate or prosecute any alcohol or drug abuse patient.[facility] JacksonIn the event this information is protected by the Federal Confidentiality of Alcohol and Drug Abuse Patient Records regulations: The Federal rules restrict any use of the information to criminally investigate or prosecute any alcohol or drug abuse patient.[facility] JacksonIn the event this information is protected by the Federal Confidentiality of Alcohol and Drug Abuse Patient Records regulations: The Federal rules restrict any use of the information to criminally investigate or prosecute any alcohol or drug abuse patient.[facility] JacksonIn the event this information is protected by the Federal Confidentiality of Alcohol and Drug Abuse Patient Records regulations: The Federal rules restrict any use of the information to criminally investigate or prosecute any alcohol or drug abuse patient.[facility] JacksonIn the event this information is protected by the Federal Confidentiality of Alcohol and Drug Abuse Patient Records regulations: The Federal rules restrict any use of the information to criminally investigate or prosecute any alcohol or drug abuse patient.[facility] JacksonIn the event this information is protected by the Federal Confidentiality of Alcohol and Drug Abuse Patient Records regulations: The Federal rules restrict any use of the information to criminally investigate or prosecute any alcohol or drug abuse patient.[facility] JacksonIn the event this information is protected by the Federal Confidentiality of Alcohol and Drug Abuse Patient Records regulations: The Federal rules restrict any use of the information to criminally investigate or prosecute any alcohol or drug abuse patient.[facility] JacksonIn the event this information is protected by the Federal Confidentiality of Alcohol and Drug Abuse Patient Records regulations: The Federal rules restrict any use of the information to criminally investigate or prosecute any alcohol or drug abuse patient.[facility] JacksonIn the event this information is protected by the Federal Confidentiality of Alcohol and Drug Abuse Patient Records regulations: The Federal rules restrict any use of the information to criminally investigate or prosecute any alcohol or drug abuse patient.[facility] JacksonIn the event this information is protected by the Federal Confidentiality of Alcohol and Drug Abuse Patient Records regulations: The Federal rules restrict any use of the information to criminally investigate or prosecute any alcohol or drug abuse patient.[facility] JacksonIn the event this information is protected by the Federal Confidentiality of Alcohol and Drug Abuse Patient Records regulations: The Federal rules restrict any use of the information to criminally investigate or prosecute any alcohol or drug abuse patient.[facility] JacksonIn the event this information is protected by the Federal Confidentiality of Alcohol and Drug Abuse Patient Records regulations: The Federal rules restrict any use of the information to criminally investigate or prosecute any alcohol or drug abuse patient.[facility] [place] the event this information is protected by the Federal Confidentiality of Alcohol and Drug Abuse Patient Records regulations: The Federal rules restrict any use of the information to criminally investigate or prosecute any alcohol or drug abuse patient.[facility] JacksonIn the event this information is protected by the Federal Confidentiality of Alcohol and Drug Abuse Patient Records regulations: The Federal rules restrict any use of the information to criminally investigate or prosecute any alcohol or drug abuse patient.[facility] JacksonIn the event this information is protected by the Federal Confidentiality of Alcohol and Drug Abuse Patient Records regulations: The Federal rules restrict any use of the information to criminally investigate or prosecute any alcohol or drug abuse patient.[facility] JacksonIn the event this information is protected by the Federal Confidentiality of Alcohol and Drug Abuse Patient Records regulations: The Federal rules restrict any use of the information to criminally investigate or prosecute any alcohol or drug abuse patient.[facility] JacksonIn the event this information is protected by the Federal Confidentiality of Alcohol and Drug Abuse Patient Records regulations: The Federal rules restrict any use of the information to criminally investigate or prosecute any alcohol or drug abuse patient.[facility] JacksonIn the event this information is protected by the Federal Confidentiality of Alcohol and Drug Abuse Patient Records regulations: The Federal rules restrict any use of the information to criminally investigate or prosecute any alcohol or drug abuse patient.[facility] JacksonIn the event this information is protected by the Federal Confidentiality of Alcohol and Drug Abuse Patient Records regulations: The Federal rules restrict any use of the information to criminally investigate or prosecute any alcohol or drug abuse patient.[facility] JacksonIn the event this information is protected by the Federal Confidentiality of Alcohol and Drug Abuse Patient Records regulations: The Federal rules restrict any use of the information to criminally investigate or prosecute any alcohol or drug abuse patient.[facility] JacksonIn the event this information is protected by the Federal Confidentiality of Alcohol and Drug Abuse Patient Records regulations: The Federal rules restrict any use of the information to criminally investigate or prosecute any alcohol or drug abuse patient.[facility] JacksonIn the event this information is protected by the Federal Confidentiality of Alcohol and Drug Abuse Patient Records regulations: The Federal rules restrict any use of the information to criminally investigate or prosecute any alcohol or drug abuse patient.[facility] JacksonIn the event this information is protected by the Federal Confidentiality of Alcohol and Drug Abuse Patient Records regulations: The Federal rules restrict any use of the information to criminally investigate or prosecute any alcohol or drug abuse patient.[facility] JacksonIn the event this information is protected by the Federal Confidentiality of Alcohol and Drug Abuse Patient Records regulations: The Federal rules restrict any use of the information to criminally investigate or prosecute any alcohol or drug abuse patient.[facility] JacksonIn the event this information is protected by the Federal Confidentiality of Alcohol and Drug Abuse Patient Records regulations: The Federal rules restrict any use of the information to criminally investigate or prosecute any alcohol or drug abuse patient.[facility] JacksonIn the event this information is protected by the Federal Confidentiality of Alcohol and Drug Abuse Patient Records regulations: The Federal rules restrict any use of the information to criminally investigate or prosecute any alcohol or drug abuse patient.[facility] JacksonIn the event this information is protected by the Federal Confidentiality of Alcohol and Drug Abuse Patient Records regulations: The Federal rules restrict any use of the information to criminally investigate or prosecute any alcohol or drug abuse patient.[facility] JacksonIn the event this information is protected by the Federal Confidentiality of Alcohol and Drug Abuse Patient Records regulations: The Federal rules restrict any use of the information to criminally investigate or prosecute any alcohol or drug abuse patient.[facility] JacksonIn the event this information is protected by the Federal Confidentiality of Alcohol and Drug Abuse Patient Records regulations: The Federal rules restrict any use of the information to criminally investigate or prosecute any alcohol or drug abuse patient.[facility] JacksonIn the event this information is protected by the Federal Confidentiality of Alcohol and Drug Abuse Patient Records regulations: The Federal rules restrict any use of the information to criminally investigate or prosecute any alcohol or drug abuse patient.[facility] JacksonIn the event this information is protected by the Federal Confidentiality of Alcohol and Drug Abuse Patient Records regulations: The Federal rules restrict any use of the information to criminally investigate or prosecute any alcohol or drug abuse patient.[facility] JacksonIn the event this information is protected by the Federal Confidentiality of Alcohol and Drug Abuse Patient Records regulations: The Federal rules restrict any use of the information to criminally investigate or prosecute any alcohol or drug abuse patient.[facility] JacksonIn the event this information is protected by the Federal Confidentiality of Alcohol and Drug Abuse Patient Records regulations: The Federal rules restrict any use of the information to criminally investigate or prosecute any alcohol or drug abuse patient.[facility] JacksonIn the event this information is protected by the Federal Confidentiality of Alcohol and Drug Abuse Patient Records regulations: The Federal rules restrict any use of the information to criminally investigate or prosecute any alcohol or drug abuse patient.[facility] JacksonIn the event this information is protected by the Federal Confidentiality of Alcohol and Drug Abuse Patient Records regulations: The Federal rules restrict any use of the information to criminally investigate or prosecute any alcohol or drug abuse patient.[facility] Reason for Visit (unrecogniz ed section and content) Reason Comments 6 Month Exam Reason Comments Right groin pain Reason Comments hernia right groin area Reason Comments Faxed orders Reason Comments Change Of Order [facility] radiology dept. Reason Comments Results Appointment Reason Comments Consult bilateral inguinal h ernia Specialty Diagnoses / Procedures Referred By Contac t Referred To Contact General Surgery Diagnoses Bilateral inguinal hernia without obstruction or gangrene, recurrence not specified Procedures CONSULT TO GENERAL SURGERY OFFICE/OUTPATIENT NEW HIGH MDM 60-74 MINUTES Robel Onofre, DO [address] [place] [address] Referral ID Status Reason Start Date Expiration Date V isits Requested Visits Authorized [id number] Closed PCP Requested Referral 01/02/2022 01/02/2023 1 [...] INGUINAL HERNIA W/ MESH [facility] [address] [place] [address] Referral ID Status Reason Start Date Expiration Date Visits Re quested Visits Authorized [id number] 1 Reason Comments Orders Reason Comments [...] Care Teams (unrecognized sec tion and content) City Maintenance Manager Relationship Specialty Start Date End Date Robel Onofre, DO [address] [place] [address] PCP - General Family Practice 10/01/19 City Maintenance Manager Relationship Specialty Start Date End Date Robel Onofre, DO [address] [place] [address] PCP - General Family Practice 10/01/19 City Maintenance Manager Relationship Specialty Start Date End Date Robel Onofre, DO [address] [place] [address] PCP - General Family Practice 10/01/19 City Maintenance Manager Relationship Specialty Start Date End Date Robel Onofre, DO [address] [place] [address] PCP - General Family Practice 10/01/19 City Maintenance Manager Relationship Specialty Start Date End Date Robel Onofre, DO [address] [place] [address] PCP - General Family Practice 10/01/19 City Maintenance Manager Relationship Specialty Start Date End Date Robel Onofre, DO [address] [facility] [place] [address] PCP - General Family Practice 10/01/19 City Maintenance Manager Relationship Specialty Start Date End Date Robel Onofre, DO [address] [place] [address] PCP - General Family Practice 10/01/19 City Maintenance Manager Relationship Specialty Start Date End Date Robel Onofre, DO [address] [place] [address] PCP - General Family Practice 10/01/19 City Maintenance Manager Relationship Specialty Start Date End Date Robel Onofre, DO [address] [place] [address] PCP - General Family Medicine 10/01/19 City Maintenance Manager Relationship Specialty Start Date End Date Robel Onofre, DO [address] [place] [address] PCP - General Family Medicine 10/01/19 City Maintenance Manager Relationship Specialty Start Date End Date Robel Onofre, DO [address] [place] [address] PCP - General Family Medicine 10/01/19 City Maintenance Manager Relationship Specialty Start Date End Date Robel Onofre, DO [address] [place] [address] PCP - General Family Medicine 10/01/19 City Maintenance Manager Relationship Specialty Start Date End Date Robel Onofre, DO [address] [place] [address] PCP - General Family Medicine 10/01/19 City Maintenance Manager Relationship Specialty Start Date End Date Robel Onofre, DO [address] [place] [address] PCP - General Family Medicine 10/01/19 City Maintenance Manager Relationship Specialty Start Date End Date Robel Onofre, DO [address] [place] [address] PCP - General Family Medicine 10/01/19 City Maintenance Manager Relationship Specialty Start Date End Date Robel Onofre, DO [address] [place] [address] PCP - General Family Medicine 10/01/19 City Maintenance Manager Relationship Specialty Start Date End Date Robel Onofre, DO [address] [place] [address] PCP - General Family Medicine 10/01/19 City Maintenance Manager Relationship Specialty Start Date End Date Robel Onofre, DO [address] [place] [address] PCP - General Family Medicine 10/01/19 City Maintenance Manager Relationship Specialty Start Date End Date Robel Onofre, DO [address] [place] [address] PCP - General Family Medicine 10/01/19 City Maintenance Manager Relationship Specialty Start Date End Date Robel Onofre, DO [address] [place] [address] PCP - General Family Medicine 10/01/19 City Maintenance Manager Relationship Specialty Start Date End Date Robel Onofre, DO [address] [place] [address] PCP - General Family Medicine 10/01/19 City Maintenance Manager Relationship Specialty Start Date End Date Robel Onofre DO [address] [place] [address] PCP - General Family Medicine 10/01/19 City Maintenance Manager Relationship Specialty Start Date End Date Robel Onofre DO [address] [place] [address] PCP - General Family Medicine 10/01/19 City Maintenance Manager Relationship Specialty Start Date End Date Robel Onofre DO [address] [facility] [place] [address] PCP - General Family Medicine 10/01/19 City Maintenance Manager Relationship Specialty Start Date End Date Robel Onofre, [address] [facility] [place] [address] PCP - General Family Medicine 10/01/19 City Maintenance Manager Relationship Specialty Start Date End Date Robel Onofre, [address] [place] [address] PCP - General Family Medicine 10/01/19 City Maintenance Manager Relationship Specialty Start Date End Date Robel Onofre, [address] [place] [address] PCP - General Family Medicine 10/01/19 City Maintenance Manager Relationship Specialty Start Date End Date Robel Onofre, [address] [place] [address] PCP - General Family Medicine 10/01/19 City Maintenance Manager Relationship Specialty Start Date End Date Robel Onofre, [address] [place] [address] PCP - General Family Medicine 10/01/19 City Maintenance Manager Relationship Specialty Start Date End Date Robel Onofre, [address] [place] [address] PCP - General Family Medicine 10/01/19 City Maintenance Manager Relationship Specialty Start Date End Date Robel Onofre DO [address] [place] [address] PCP - General Family Medicine 10/01/19 City Maintenance Manager Relationship Specialty Start Date End Date Robel Onofre DO [address] [place] [address] PCP - General Family Medicine 10/01/19 City Maintenance Manager Relationship Specialty Start Date End Date Robel Onofre DO [address] [place] [address] PCP - General Family Medicine 10/01/19 City Maintenance Manager Relationship Specialty Start Date End Date Robel Onofre DO [address] [place] [address] PCP - General Family Medicine 10/01/19 City Maintenance Manager Relationship Specialty Start Date End Date Robel Onofre DO [address] [place] [address] PCP - General Family Medicine 10/01/19 Cat Foote, HYDRAMATIC SPECIALIST.CT TECH [address] [place] [address] Procedure Manager Family Medicine 08/01/24 Bessie Ambrocio, HYDRAMATIC SPECIALIST.CT TECH [address] [place] [address] Procedure Manager Family Medicine 08/01/24 City Maintenance Manager Relationship Specialty Start Date End Date Robel Onofre DO [address] [place] [address] PCP - General Family Medicine 10/01/19 Cat Foote, HYDRAMATIC SPECIALIST.CT TECH [address] [place] [address] Procedure Manager Family Medicine 08/01/24 Bessie Ambrocio HYDRAMATIC SPECIALIST.CT TECH [address] [place] [address] Procedure Manager Family [facility] 08/01/24 City Maintenance Manager Relationship Specialty Start Date End Date Robel Onofre DO [address] [facility] [place] [address] PCP - General Family Medicine 10/01/19 Cat Foote, HYDRAMATIC SPECIALIST.CT TECH [address] [facility] [place] [address] Procedure Manager Family Medicine 08/01/24 Bessie Ambrocio, HYDRAMATIC SPECIALIST.CT TECH [address] [facility] [place] [address] [facility] City Maintenance Manager Relationship Specialty Start Date End Date Robel Onofre DO [address] [facility] [place] [address] PCP - General Family Medicine 10/01/19 Cat Foote, HYDRAMATIC SPECIALIST.CT TECH [address] [facility] [place] [address] Procedure Manager Family Medicine 08/01/24 Bessie Ambrocio, HYDRAMATIC SPECIALIST.CT TECH [address] [place] [address] [facility]24 City Maintenance Manager Relationship Specialty Start Date End Date Robel Onofre DO [address] [facility] [place] [address] PCP - General Family Medicine 10/01/19 Bessie Ambrocio, HYDRAMATIC SPECIALIST.CT TECH [address] [place] [address] [facility]/01[facility] City Maintenance Manager Relationship Specialty Start Date End Date Robel Onofre DO [address] [place] [address] PCP - General Family Medicine 10/01/19 Cat Foote, HYDRAMATIC SPECIALIST.CT TECH [address] [place] [address] [facility] 08/01/24 11/12/24 Bessie Ambrocio, HYDRAMATIC SPECIALIST.CT TECH [address] [place] [address] [facility] 08/01/24 City Maintenance Manager Relationship Specialty Start Date End Date Robel Onofre DO [address] [place] [address] PCP - General Family Medicine 10/01/19 Bessie Ambrocio, HYDRAMATIC SPECIALIST.CT TECH [address] [place] [address] [facility] 08/01/24 Team Status: Active Member Role Status Dates Dr. Robel Onofre DO Primary Care Provider Active Team Status: Inactive Member Role Status Dates Dr. Robel Onofre DO Primary Care Provider Active Start: December 14, 2024 End: December 14, 2024 Dr. Cristobal Mayo DO Emergency Provider Active Start : December 14, 2024 End: December 14, 2024 City Maintenance Manager Relationship Specialty Start Date End Date Robel Onofre DO [address] [place] [address] PCP - General Family Medicine 10/01/19 Bessie Ambrocio, HYDRAMATIC SPECIALIST.CT TECH [address] [place] [address] Procedure Manager Family Medicine 08/01/24 City Maintenance Manager Relationship Specialty Start Date End Date Robel Onofre DO [address] [place] [address] PCP - General Family Medicine 10/01/19 [facility] HYDRAMATIC SPECIALIST.CT TECH [address] [place] [address] Procedure Manager Family [facility] 08/01/24 City Maintenance Manager Relationship Specialty Start Date End Date Robel Onofre DO [address] [place] [address] PCP - General Family Medicine 10/01/19 [facility] HYDRAMATIC SPECIALIST.CT TECH [address] [place] [address] Procedure Manager Family [facility] 08/01/24 City Maintenance Manager Relationship Specialty Start Date End Date Robel Onofre DO [address] [place] [address] PCP - General Family Medicine 10/01/19 [facility] HYDRAMATIC SPECIALIST.CT TECH [address] [place] [address] Procedure Manager Family Medicine 08/01/24 Una Mckinley, HYDRAMATIC SPECIALIST.CT TECH [address] [place] [address] Procedure Manager Family Medicine 02/07/25 City Maintenance Manager Relationship Specialty Start Date End Date Robel Onofre DO [address] [place] [address] PCP - General Family Medicine 10/01/19 Bessie Ambrocio APRN.CT TECH [address] [place], [place] [address] Procedure Manager Family Medicine 08/01/24 Una Mckinley, GIA.CT TECH [address] [place], [place] [address] Procedure Manager Family Medicine 02/07/25 Team Status: Active Member [...] Gross RN)[id number] (Given - Provider: Tamara Stinson APRN.RESEARCH ATTORNEY) scopolamine - REMOVE PATCH(Linked Group 1) ONCE, [...] BE BASED ON THE PRIMARY CLINICAL RECORDS. [facility] [employer] [facility] provides no warranty or guarantee of the accuracy or completeness of information in this document.
[2025-07-19 02:20] LABS: Troponin T High Sens 2 HR 1948 ng/L (<=22)
--- OUTSIDE RECORDS SUMMARY | 2025-07-19 02:55 | XMS RPT_ITS | CCD ---
Author Organization [facility] Inform ion [facility] Care Team Providers Care Video System Repairer Name Role Phone Tony, Harumi Y Unavailable [...] Provider Dr. Robel Onofre Referring Provider Roof CARPET TECHNICIAN, CARPET TECHNICIAN-C John Murphy Attending Provider Robel Onofre DO [...] Onofre DORobel L Primary Care Provider Foote OUTSIDE PLANT FIELD ENGINEER.SUBMARINE ELEMENT COORDINATOR, Cat Argentina Unavailable Cristóbal OUTSIDE PLANT FIELD ENGINEER.SUBMARINE ELEMENT COORDINATOR, Bessie Unavailable Foote OUTSIDE PLANT FIELD ENGINEER.SUBMARINE ELEMENT COORDINATOR, Cat Elaine Unavailable Kingston OROZCO, Dr. Huston Primary Care Provider Maria Esther OROZCO, Dr. Jain Emergency Provider Elías OUTSIDE PLANT FIELD ENGINEER.SUBMARINE ELEMENT COORDINATOR, Una Duvall Unavailable Maria Esther OROZCO, Dr. Jain Attending Provider Kingston OROZCO, Dr. Huston Referring Provider Samir CAMPA, Dr. Berry Attending Provider [phone] ASHA HERNANDEZ Attending Unavailable ONOFRE, ROBEL Primary [...] TABS One tablet by mouth daily ASPIRIN [id number] Saida Middleton RN Start: 04-17-2007 End: 07-03-2022 [...] TABS One tablet by mouth daily ATENOLOL [id number] Anuradha Hickey Comment on above: Take 1 tablet by triston th once daily. cholecalciferol 0.05 mg oral capsule (20 sources) Vitamin D Start: take 1 capsule by mouth once daily Cholecalciferol, Vitamin D3, (VITAMIN D-3) 50 mcg (2,000 unit) cap Indications: Vitamin D deficiency Take 1 capsule by mouth once daily. 90 capsule 3 11/24/2024 Active Start: 06-13-2022 take 1 capsule by [facility] once daily Cholecalciferol (Vitamin D3) (Vitamin [...] Comment on above: Take 1 capsule by [facility] once daily. finasteride 5 mg oral tablet (20 sources) 5-alpha Reductase Inhibitor Start: 02-24-20 End: 10-08-19 take 1 tablet by mouth once daily Finasteride 5 mg tablet Active 5 mg PO DAILY February 23, 2018 12:00am prostate Comment on above: [facility] iv contrast (will be [...] TABS One tablet by mouth daily LISINOPRIL [id number] Florencio Ramires MD Start: 07-03-2015 take 1 tablet by triston th twice daily LISINOPRIL 10 MG TABS One tablet by mouth twice daily LISINOPRIL 29178667103 Saida Middleton RN Start: 01-03-2014 End: 07-03-2015 take 1 tablet by mouth once daily LISINOPRIL 20 MG TABS One tablet by mouth daily LISINOPRIL [id number] Florencio Ramires MD Comment on above: Take [...] MG CAPS 1 tab daily TAMSULOSIN HCL [id number] Mirian Ortiz OUTSIDE PLANT FIELD ENGINEER-SUBMARINE ELEMENT COORDINATOR Start: 05-31-2014 End: 07-03-2015 take 1 tablet by mouth once daily TAMSULOSIN HCL 0.4 MG CAPS One tablet by mouth daily TAMSULOSIN HCL [id number] Florencio Ramires MD Comment on above: Take [...] 1 tablet by triston once daily. Vitamins A,C,Z-Hufw-Ekmfvr (Preservision Areds) 14,320-226-200 xhkm-lw-serd capsule (1 source) Start: 2021 take 1 capsule by mouth twice daily Vitamins A,C,R-Qdwt-Ecvdhq (Preservision Areds) 14,320-226-200 kxqy-hc-ssux capsule Active 1 CAP PO TWICE A [...] as needed for up to 5 days. [id number] 200 actuat albuterol 0.09 mg/actuat metered dose [...] daily. docusate sodium 50 mg / sennosides, senior living 8.6 mg oral tablet (5 sources) Start: [...] TABS One tablet by mouth daily EZETIMIBE-SIMVASTATIN [id number] Florencio Ramires MD Start: 05-24-2013 take 1 tablet by triston th once daily VYTORIN 10-20 MG TABS One tablet by mout h daily EZETIMIBE-SIMVASTATIN [id number] Florencio Ramires MD Start: 05-24-2013 take 1 tablet by triston th once daily VYTORIN 10-20 MG TABS One tablet by mout h daily EZETIMIBE-SIMVASTATIN [id number] Florencio Ramires MD hydroCHLOROthiazide 12.5 mg oral [...] Two tablets by mouth twice daily IBUPROFEN 52804663689 Saida Middleton RN 24 hr isosorbide mononitrate [...] 1/2 tab twice a day ISOSORBIDE MONONITRATE [id number] Scot D Bernstein DO Start: 11-11-2011 take 1 tablet by triston th twice daily ISOSORBIDE MONONITRATE 10 MG TABS One half Tablet by mouth twice daily ISOSORBIDE MONONITRATE 85582476180 Florencio Ramires MD Comment on above: Take [...] one tab twice a day MULTIPLE VITAMINS-MINERALS [id number] Scot D Bernstein DO MULTIPLE VITAMINS-MINERALS (1 source) Start: 05-12-2018 PRESERVISION A REDS 2+MULTI VIT CAPS twice a day MULTIPLE VITAMINS-MINERALS [id number] Scot D Bernstein DO 24 hr nitroglycerin 0.1 mg/hr transdermal system (20 sources) Nitrate Vasodilator Start: 12-12-2010 End: 11-11-2011 NITRO-DUR 0.1 MG/HR PT24 Apply every morning & remove at night NITROGLYCERIN [id number] Reinaldo Diaz MD Start: 12-12-2010 NITROGLYCERIN 0.4 MG SUBL 1 tablet under the tongue every 5 minutes times 3 as needed for chest pain. NITROGLYCERIN [id number] Jennifer Tomlin RN Start: 12-12-2010 End: 11-11-2011 NITRO-DUR 0.1 MG/HR PT24 Tammi ly every morning & remove at night NITROGLYCERIN [id number] Reinaldo Diaz MD Start: 12-12-2010 NITRO-DUR 0.1 MG/HR PT24 Apply every morning & remove at night NITROGLYCERIN [id number] Anuradha Hickey LOOND-3-FSJK ETHYL ESTERS (20 sources) Start: 12-02-2011 take 2 capsules by mouth twice daily LOVAZA 1 GM CAPS Two capsules by mouth twice daily GLTTJ-6-MYAP ETHYL ESTERS [id number] Jennifer Tomlin RN Start: 12-02-2011 End: 11-11-2012 take 2 capsules by mouth twice daily LOVAZA 1 GM CAPS Two capsules by mouth twice daily GRMSO-4-XYMG ETHYL ESTERS [id number] Reinaldo Diaz MD Start: 12-02-2011 End: 11-11-2012 take 2 capsules by mouth twice daily LOVAZA 1 GM CAPS Two capsules by mouth twice daily FSEWD-7-SNKI ETHYL ESTERS [id number] Jennifer Tomlin RN Start: 12-02-2011 take 2 capsules by [facility] twice daily LOVAZA 1 GM CAPS Two capsules by mouth twice daily GYOHB-5-REYA ETHYL ESTERS 89761058325 Jennifer Tomlin RN Start: 12-02-2011 End: 11-11-2012 take 2 capsules by mouth twice daily LOVAZA 1 GM CAPS Two capsules by mouth twice daily XPSUC-6-FBZC ETHYL ESTERS [id number] Reinaldo Diaz MD Start: 12-12-2010 take 1 tablet by triston th twice daily LOVAZA 1 GM CAPS One tablet by mouth twice daily IFROH-1-RWMB ETHYL ESTERS [id number] Anuradha Hickey Start: 12-12-2010 take 1 tablet by triston twice daily LOVAZA 1 GM CAPS One tablet by mouth twice daily USWBF-3-DULX ETHYL ESTERS [id number] Anuradha Hickey Start: 12-12-2010 take 1 tablet by triston twice daily LOVAZA 1 GM CAPS One tablet by mouth twice daily CRRPM-0-ORNA ETHYL ESTERS [id number] Anuradha Hickey omeprazole 20 mg delayed release oral capsule (20 sources) Proton Pump Inhibitor Start: 04-03-2017 OMEPRAZO LE 20 MG TBEC one tab a day OMEPRAZOLE [id number] Mandeep Bernstein DO Start: 12-12-2010 End: 12-27-2024 take 1 capsule by mouth once daily Omeprazole 20 MG capsule Discontinued 20 mg PO DAILY November 12, 2017 12:00am April 14, 2020 9:00am ACID SEQUINS STRINGER Comment on above: Take 20 mg by [...] tablet by mouth at bedtime. PRAVASTATIN SODIUM [id number] Florencio Ramires MD ramipril 10 mg oral tablet (20 sources) Angiotensin Converting Enzyme Inhibitor Start: 11-12-19 13 End: 01-04-20 14 take 1 tablet by mouth twice daily ALTACE 10 MG CAPS One tablet by mouth twice daily RAMIPRIL [id number] Reinaldo Diaz MD Start: 11-11-2012 End: 01-03-2014 take 1 tablet by mouth twice daily ALTACE 10 MG CAPS One tablet by mouth twice daily RAMIPRIL [id number] Reinaldo Diaz MD Start: 05-25-2012 take 1 tablet by triston th twice daily ALTACE 5 MG CAPS One tablet by mouth twice daily RAMIPRIL [id number] Reinaldo Diaz MD Start: 11-11-2011 take 1 tablet by triston th twice daily ALTACE 5 MG CAPS One tablet by mouth twice daily RAMIPRIL [id number] Reinaldo Diaz MD Start: 12-12-2010 take 1 tablet by triston th twice daily ALTACE 2.5 MG CAPS One tablet by mouth twice daily RAMIPRIL [id number] Anuradha Hickey Start: 12-12-2010 take 1 tablet by triston th twice daily ALTACE 2.5 MG CAPS One tablet by mouth twice daily RAMIPRIL 82197279870 Anuradha Hickey rosuvastatin calcium 10 mg oral tablet (8 sources) HMG-CoA Reductase Inhibitor Start: 05-28-2013 take 1 tablet by mouth at bedtime CRESTOR 10 MG TABS One tablet by mouth at bedtime. ROSUVASTATIN CALCIUM 50366215293 Florencio Ramires MD simvastatin 20 mg oral [...] MG TABS 1/2 tab at bedtime SIMVASTATIN [id number] Scot Bekah Bernstein DO Start: 06-04-2013 End: [...] on above: Take 2 tablets by mo [facility] twice daily. Vitamins A,C,I-Gpqh-Wazwjh (3 sources) Start: 11-12-2017 End: 04-14-2020 take 1 capsule by mouth twice daily Vitamins A,C,U-Nvqk-Thkmzb Discontinued 1 CAP PO TWICE A DAY November 12, 2017 10:06am April 14, 2020 9:00am Start: 11-12-2017 End: 04-14-2020 take 1 capsule by mouth twice daily Vitamins A,C,T-Ymmj-Gkersg Discontinued 1 CAP PO TWICE A DAY November 12, 2017 12:00am April 14, 2020 9:00am Vitamins A,C,U-Jipl-Fupeoz 1 EACH capsule (2 sources) Start: 11-12-2017 End: 04-14-2020 take 1 capsule by mouth twice daily Vitamins A,C,D-Irdq-Ovyiwe 1 EACH capsule Discontinued 1 NMA PO TWICE A DAY November 12, 2017 12:00am April 14, 2020 9:00am [facility] Start: 11-12-2017 End: 04-14-2020 take 1 capsule by mouth twice daily Vitamins A,C,W-Jvmu-Lkpmuf 1 EACH capsule Discontinued 1 NMA PO [...] within filter wire. 10/28/2019 per DJN @ [facility] Coronary atherosclerosis and other heart disease [...] (3 sources) Long-term drug therapy; Translations: [Other longterm (current) drug therapy] Onset: 1 12-12-2010 Unclassified [...] within filter wire. 10/28/2019 per DJN @ [facility] Deficiency and other anemia (20 sources) [...] Episodic Other aftercare (5 sources) Other terminal press operator (current) drug therapy; Translations: [Other longterm (current) drug therapy] Onset: 1 12-12-2010 Episodic [...] 06-27-2025 CNTHERAPY OT/PT/Speech Visit (LDSP) TODD MATAMOROS ([id number]) 1940 M Date Time Provider Department 06/27/25 1:00 PM SALLY STEELE LDSP Date Time Provider Department Center 06/27/2025 1:00 PM [id number] STEELE [facility] Reason for Visit: Speech Evaluation [6907] Visit Diagnosis:Oral phase dysphagia [R13.11] Allergies As of Date: 06/27/2025 (No Known Allergies) Date Reviewed: 12/14/2024 Reviewed by: Asha Hernandez, GIA.SUBMARINE ELEMENT COORDINATOR - Fully Assessed Prescriptions as of 06/27/2025 [...] Apply sparingly to area for rash/itching. Normal [facility] Rosanna 06-25-2025 LEON Telephone (FAMPWS) TODD MATAMOROS ([id number]) 1940 M Date Time Provider Department 06/25/25 ROBEL ONOFREPWS During your visit today, we recorded the following information about you: Robel Onofre DO 06/25/2025 7:58 AM Signed Please fax Speech therapy referral to [facility]. This was ordered yesterday DO Jason Hernandez Linda M, LPN 06/25/2025 9:07 AM Signed Order faxed to [facility] as requested. Allergies As of Date: 06/25/2025 (No Known Allergies) Date Reviewed: 12/14/2024 Reviewed by: Asha Hernandez, OUTSIDE PLANT FIELD ENGINEER.SUBMARINE ELEMENT COORDINATOR - Fully Assessed Prescriptions as of 06/25/2025 [...] HEIDI ABDI on 06/25/25 Normal [facility] 25([place])[facility] 25-hydroxyvitamin D3 [Mass/Vol] 46.4 ng/mL Normal 31.0-80.0 [facility] Comment on above: Order Comment: Christian modi Type: BLOOD SPECIMENOrdering Facility: [facility] Address: [address] [place] [address] Result Comment: Clas sification of 25 [place] Vitamin D status: Deficiency/Insufficiency: < or = 30 ng/ml. Sufficiency/Optimal Levels: 31-80 ng/mL Toxicity: > 100 ng/mL. Test performed by chemiluminescent immunoassay. Performed By: #### 1 989-3 ####[facility] LABCLIA [id number] [place] [address] [place] CBC W Auto Differential pane l (Bld)on 06-24-2025 Basophils (Bld) [#/Vol] 0.04 10*3/uL Normal <0.11 [facility] Comment on above: Order Comment: Christian modi Type: BLOOD SPECIMENOrdering Facility: [facility] Address: [address] [place] [address] Performed By: #### 5 7021-8 ####[facility] LABCLIA [id number] [place] [address] [place] Basophils/100 WBC (Bld) 0.6 % Normal C [facility] Comment on above: Order Comment: Christian modi Type: BLOOD SPECIMENOrdering Facility: [facility] Address: [address] [place] [address] Performed By: #### 5 7021-8 ####[facility] LABCLIA [id number] [place] [address] [place] Differential cell count method Nom (Bld) Auto Normal [facility] Comment on above: Order Comment: Speci men Type: BLOOD SPECIMENOrdering Facility: [facility] Address: [address] [place] [address] Performed By: #### 5 7021-8 ####[facility] LABCLIA [id number] [place] [address] [place] Eosinophils (Bld) [#/Vol] 0.33 10*3/uL Normal <0.46 [facility] Comment on above: Order Comment: Speci men Type: BLOOD SPECIMENOrdering Facility: [facility] Address: [address] [place] [address] Performed By: #### 5 7021-8 ####[facility] LABCLIA [id number] [address] [place] Eosinophils/100 WBC (Bld) 4.7 % Normal [facility] Comment on above: Order Comment: Speci men Type: BLOOD SPECIMENOrdering Facility: [facility] Address: [address] [place] [address] Performed By: #### 5 7021-8 ####[facility] LABCLIA [id number] [address] [place] Erythrocyte distribution width (RBC) [Ratio] 14.6 % Normal 11.5-15.0 [facility] Comment on above: Order Comment: Speci men Type: BLOOD SPECIMENOrdering Facility: [facility] Address: [address] [place] [address] Performed By: #### 5 7021-8 ####[facility] LABCLIA [id number] [address] [place] Hematocrit (Bld) [Volume fraction] 42.5 % Normal 39.0-51.0 [facility] Comment on above: Order Comment: Speci men Type: BLOOD SPECIMENOrdering Facility: [facility] Address: [address] [place] [address] Performed By: #### 5 7021-8 ####[facility] LABCLIA [id number] [place] [address] [place] Hemoglobin (Bld) [Mass/Vol] 14.4 g/dL Normal 13.0-17.0 [facility] Comment on above: Order Comment: Speci men Type: BLOOD SPECIMENOrdering Facility: [facility] Address: [address] [place] [address] Performed By: #### 5 7021-8 ####[facility] LABCLIA [id number] [place] [address] [place] Immature granulocytes (Bld) [#/Vol] 10*3/uL Normal <0.10 [facility] Comment on above: Order Comment: Speci men Type: BLOOD SPECIMENOrdering Facility: [facility] Address: [address] [place] [address] Performed By: #### 5 7021-8 ####[facility] LABCLIA [id number] [place] [address] [place] Immature granulocytes/100 WBC (Bld) 0.3 % Normal [facility] Comment on above: Order Comment: Speci men Type: BLOOD SPECIMENOrdering Facility: [facility] Address: [address] [place] [address] Performed By: #### 5 7021-8 ####[facility] LABCLIA [id number] [place] [address] [place] Lymphocytes (Bld) [#/Vol] 1.44 10*3/uL Normal 1.00-4.00 [facility] Comment on above: Order Comment: Speci men Type: BLOOD SPECIMENOrdering Facility: [facility] Address: [address] [place] [address] Performed By: #### 5 7021-8 ####[facility] LABCLIA [id number] [place] [address] [place] Lymphocytes/100 WBC (Bld) 20.3 % Normal [facility] Comment on above: Order Comment: Speci men Type: BLOOD SPECIMENOrdering Facility: [facility] Address: [address] [place] [address] Performed By: #### 5 7021-8 ####[facility] LABCLIA [id number] [place] [address] [place] MCH (RBC) [Entitic mass] 30.1 pg Normal 26.0-34.0 [facility] Comment on above: Order Comment: Speci men Type: BLOOD SPECIMENOrdering Facility: [facility] Address: [address] [place] [address] Performed By: #### 5 7021-8 ####[facility] LABCLIA [id number] [place] [address] [place] MCHC (RBC) [Mass/Vol] 33.9 g/dL Normal 30.5-36.0 [facility] Comment on above: Order Comment: Speci men Type: BLOOD SPECIMENOrdering Facility: [facility] Address: [address] [place] [address] Performed By: #### 5 7021-8 ####[facility] LABCLIA [id number] [place] [address] [place] MCV (RBC) [Entitic vol] 88.7 fL Normal 80.0-100.0 C [facility] Comment on above: Order Comment: Speci men Type: BLOOD SPECIMENOrdering Facility: [facility] Address: [address] [place] [address] Performed By: #### 5 7021-8 ####[facility] LABCLIA [id number] [place] [address] [place] Monocytes (Bld) [#/Vol] 0.77 10*3/uL Normal <0.87 [facility] Comment on above: Order Comment: Speci men Type: BLOOD SPECIMENOrdering Facility: [facility] Address: [address] [place] [address] Performed By: #### 5 7021-8 ####[facility] LABCLIA [id number] [place] [address] [place] Monocytes/100 WBC (Bld) 10.9 % Normal C [facility] Comment on above: Order Comment: Speci men Type: BLOOD SPECIMENOrdering Facility: [facility] Address: [address] [place] [address] Performed By: #### 5 7021-8 ####[facility] LABCLIA [id number] [place] [address] [place] Neutrophils (Bld) [#/Vol] 4.48 10*3/uL Normal 1.45-7.50 [facility] Comment on above: Order Comment: Speci men Type: BLOOD SPECIMENOrdering Facility: [facility] Address: [address] [place] [address] Performed By: #### 5 7021-8 ####[facility] LABCLIA [id number] [place] [address] [place] Neutrophils/100 WBC (Bld) 63.2 % Normal [facility] Comment on above: Order Comment: Speci men Type: BLOOD SPECIMENOrdering Facility: [facility] Address: [address] [place] [address] Performed By: #### 5 7021-8 ####[facility] LABCLIA [id number] [place] [address] [place] Nucleated RBC (Bld) [#/Vol] 10*3/uL Normal <0.01 [facility] Comment on above: Order Comment: Speci men Type: BLOOD SPECIMENOrdering Facility: [facility] Address: [address] [place] [address] Performed By: #### 5 7021-8 ####[facility] LABCLIA [id number] [place] [address] [place] Nucleated RBC/100 WBC (Bld) [Ratio] 0.0 /100 WBC Normal [facility] Comment on above: Order Comment: Speci men Type: BLOOD SPECIMENOrdering Facility: [facility] Address: [address] [place] [address] Performed By: #### 5 7021-8 ####[facility] LABCLIA [id number] [place] [address] [place] Platelet mean volume (Bld) [Entitic vol] 9.9 fL Normal 9.0-12.7 [facility] Comment on above: Order Comment: Speci men Type: BLOOD SPECIMENOrdering Facility: [facility] Address: [address] [place] [address] Performed By: #### 5 7021-8 ####[facility] LABCLIA [id number] [place] [address] [place] Platelets (Bld) [#/Vol] 134 10*3/uL Low 150-400 [facility] Comment on above: Order Comment: Speci men Type: BLOOD SPECIMENOrdering Facility: [facility] Address: [address] [place] [address] Performed By: #### 5 7021-8 ####[facility] LABCLIA [id number] [place] [address] [place] RBC (Bld) [#/Vol] 4.79 10*6/uL Normal 4.20-6.00 [facility] Comment on above: Order Comment: Speci men Type: BLOOD SPECIMENOrdering Facility: [facility] Address: [address] [place] [address] Performed By: #### 5 7021-8 ####[facility] LABCLIA [id number] [place] [address] [place] WBC (Bld) [#/Vol] 7.08 10*3/uL Normal 3.70-11.00 [facility] Comment on above: Order Comment: Speci men Type: BLOOD SPECIMENOrdering Facility: [facility] Address: [address] [place] [address] Performed By: #### 5 7021-8 ####[facility] LABCLIA [id number] [place] [address] [place] CNOVon 06-24-2025 CNOV Office Visit (FAMPWS ) TODD MATAMOROS ([id number]) 1940 M Date Time Provider Department 06/24/25 10:00 AM [facility] visit today, we recorded [...] taking medications as prescribed. Continues to see Showplace Manager for followup Iron deficiency, eating iron rich [...] Macular degeneration NSTEMI (non-ST elevated myocardial infarction) ([facility]) 10/28/2019 Osteoarthritis of left hip [...] 07/28/2007 DIR RPR ANEURYSM ABDOMINAL AORTA 04/20/2011 [facility] EYLEA (AFLIBERCEPT) 2MG INTRAVITREAL INJECTION OD (RIGHT [...] Age of Onset Heart Mother age 60 [place], smoker None Father age 77 MVA Cataract [...] (more content not included)... Normal [facility] Comprehensive metabolic 2000 panelon 06-24-2025 Albumin [Mass/Vol] 4.3 g/dL Normal 3.9-4.9 [facility] Comment on above: Order Comment: Speci men Type: BLOOD SPECIMENOrdering Facility: [facility] Address: [address] [place] [address] Performed By: #### L IPNF, 11883-8, 3024-7, 3016-3 ####[facility] LABCLIA [id number] [place] [address] [place] ALP [Catalytic activity/Vol] 116 U/L High 38-113 [facility] Comment on above: Order Comment: Speci men Type: BLOOD SPECIMENOrdering Facility: [facility] Address: [address] [place] [address] Performed By: #### L IPNF, 56057-4, 3024-7, 3016-3 ####[facility] LABCLIA [id number] [place] [address] [place] ALT [Catalytic activity/Vol] 11 U/L Normal 10-54 [facility] Comment on above: Order Comment: Speci men Type: BLOOD SPECIMENOrdering Facility: [facility] Address: [address] [place] [address] Performed By: #### L IPNF, 49509-9, 3024-7, 3016-3 ####[facility] LABCLIA [id number] [place] [address] [place] Anion gap [Moles/Vol] 9 mmol/L Normal 8-15 [facility] Comment on above: Order Comment: Speci men Type: BLOOD SPECIMENOrdering Facility: [facility] Address: [address] [place] [address] Performed By: #### L IPNF, 77155-5, 4-7, 3016-3 ####[facility] LABCLIA [id number] [place] [address] [place] AST [Catalytic activity/Vol] 15 U/L Normal 14-40 [facility] Comment on above: Order Comment: Speci men Type: BLOOD SPECIMENOrdering Facility: [facility] Address: [address] [place] [address] Performed By: #### L IPNF, 43573-8, 3023-7, 6-3 ####[facility] LABCLIA [id number] [place] [address] [place] Bilirubin [Mass/Vol] 0.5 mg/dL Normal 0.2-1.3 [facility] Comment on above: Order Comment: Speci men Type: BLOOD SPECIMENOrdering Facility: [facility] Address: [address] [place] [address] Performed By: #### L IPNF, 13390-7, 3023-7, 3016-3 ####[facility] LABCLIA [id number] [place] [address] [place] Calcium [Mass/Vol] 9.4 mg/dL Normal 8.5-10.2 [facility] Comment on above: Order Comment: Speci men Type: BLOOD SPECIMENOrdering Facility: [facility] Address: [address] [place] [address] Performed By: #### L IPNF, 97020-0, 4-7, 3016-3 ####[facility] LABCLIA [id number] [place] [address] [place] Chloride [Moles/Vol] 106 mmol/L Normal 98-107 [facility] Comment on above: Order Comment: Speci men Type: BLOOD SPECIMENOrdering Facility: [facility] Address: [address] [place] [address] Performed By: #### L IPNF, 25384-6, 3024-7, 3016-3 ####[facility] LABCLIA [id number] [place] [address] [place] CO2 [Moles/Vol] 24 mmol/L Normal 22-30 [facility] Comment on above: Order Comment: Speci men Type: BLOOD SPECIMENOrdering Facility: [facility] Address: [address] [place] [address] Performed By: #### L IPNF, 90071-6, 3024-7, 3016-3 ####[facility] LABCLIA [id number] [place] [address] [place] Creatinine [Mass/Vol] 1.25 mg/dL High 0.73-1.22 [facility] Comment on above: Order Comment: Speci men Type: BLOOD SPECIMENOrdering Facility: [facility] Address: [address] [place] [address] Performed By: #### L IPNF, 19443-1, 3024-7, 3016-3 ####[facility] LABCLIA [id number] [place] [address] [place] eGFRcr SerPlBld CKD-EPI 2020 56 mL/min/1.73m??? Low >=60 [facility] Comment on above: Order Comment: Speci men Type: BLOOD SPECIMENOrdering Facility: [facility] Address: [address] [place] [address] Result Comment: Shannan mated Glomerular Filtration Rate [...] actual GFR. Performed By: #### L IPNF, 92009-8, 3023-7, 6-3 ####[facility] LABCLIA [id number] [place] [id number] [place] Glucose [Mass/Vol] 99 mg/dL Normal 74-99 [facility] Comment on above: Order Comment: Speci men Type: BLOOD SPECIMENOrdering Facility: [facility] Address: [address] [place] [address] Result Comment: The [place] Diabetes Association (ADA) provides guidance for cutoff [...] Standards of Medical Care in Diabetes 2016, [place] Diabetes Association. Diabetes Care. 2016.39(Suppl 1). Performed By: #### L IPNF, 02038-4, 7, 3 ####[facility] LABCLIA [id number] [place] [id number] [place] Potassium [Moles/Vol] 4.6 mmol/L Normal 3.7-5.1 [facility] Comment on above: Order Comment: Speci men Type: BLOOD SPECIMENOrdering Facility: [facility] Address: [address] [place] [id number] Performed By: #### L IPNF, 19098-0, 3023-7, 3015-3 ####[facility] LABCLIA [id number] [place] [id number] [place] Protein [Mass/Vol] 7.0 g/dL Normal 6.3-8.0 [facility] Comment on above: Order Comment: Speci men Type: BLOOD SPECIMENOrdering Facility: [facility] Address: [address] [place] [address] Performed By: #### L IPNF, 73461-1, 3024-7, 3016-3 ####[facility] LABCLIA [id number] [place] [address] [place] Sodium [Moles/Vol] 139 mmol/L Normal 136-144 [facility] Comment on above: Order Comment: Speci men Type: BLOOD SPECIMENOrdering Facility: [facility] Address: [address] [place] [address] Performed By: #### L IPNF, 25629-7, 4-7, 6-3 ####[facility] LABCLIA [id number] [place] [address] [place] Urea nitrogen [Mass/Vol] 21 mg/dL Normal 9-24 [facility] Comment on above: Order Comment: Speci men Type: BLOOD SPECIMENOrdering Facility: [facility] Address: [address] [place] [address] Performed By: #### L IPNF, 29558-7, 4-7, 6-3 ####[facility] LABCLIA [id number] [place] [address] [place] HbA1c (Bld)on 06-24-2025 Average glucose Estimated from glycated hemoglobin (Bld) [Mass/Vol] 103 mg/dL Normal [facility] Comment on above: Order Comment: Speci men Type: BLOOD SPECIMENOrdering Facility: [facility] Address: [address] [place] [address] Result Comment: eAG: (Estimated average glucose) is a calculated value from HgbA1c and is provider service representative of the average blood glucose level in the last 2-3 month period. Performed By: #### 5 5454-3 ####[facility] LABCLIA [id number] [place] [address] [place] HbA1c (Bld) [Mass fraction] 5.2 % Normal 4.3-5.6 [facility] Comment on above: Order Comment: Speci men Type: BLOOD SPECIMENOrdering Facility: [facility] Address: [address] [place] [address] Result Comment: Amer [place] Diabetes Association guidelines indicate that patients with HgbA1c in the range 5.7-6.4% are at increased risk for development of diabetes, and intervention by lifestyle modification may be beneficial. HgbA1c greater or equal to 6.5% is considered diagnostic of diabetes. Performed By: #### 5 5454-3 ####[facility] LABCLIA [id number] [address] [place] LIPID PANEL, NONFASTINGon Cholesterol [Mass/Vol] 115 mg/dL Normal <200 [facility] Comment on above: Order Comment: Christian modi Type: BLOOD SPECIMENOrdering Facility: [facility] Address: [address] [place] [address] Result Comment: <200 mg/dL, Desirable 200-239 mg/dL, Borderline high >239 mg/dL, High Performed By: #### L IPNF, 72273-0, 3024-7, 3016-3 ####[facility] LABCLIA [id number] [address] [place] HDL CHOLESTEROL, NF 32 mg/dL Low >39 [facility] Comment on above: Order Comment: Christian modi Type: BLOOD SPECIMENOrdering Facility: [facility] Address: [address] [place] [address] Result Comment: 40-5 9 mg/dL, Acceptable >59 mg/dL, High: Negative risk factor for coronary heart disease <40 mg/dL, Low: Positive risk factor for coronary heart disease Performed By: #### L IPNF, 92302-2, 3024-7, 3016-3 ####[facility] LABCLIA [id number] [place] [address] [place] LDL CHOLESTEROL CALCULATED, NF 43 mg/dL Normal <100 [facility] Comment on above: Order Comment: Emiraudel modi Type: BLOOD SPECIMENOrdering Facility: [facility] Address: [address] [place] [address] Result Comment: <100 mg/dL, Optimal 100-129 mg/dL, Near optimal/above optimal 130-159 mg/dL, Borderline high 160-189 mg/dL, High >189 mg/dL, Very high Secondary prevention optimal LDL Cholesterol levels are recommended to be <70 mg/dL LDL cholesterol is calculated using the Polo-NIH equation. Performed By: #### L IPTITO, 36972-9, 3023-7, 3015-3 ####[facility] LABCLIA [id number] [address] OF [facility] LDL/HDL RATIO, NF 1.34 mg/dL Normal <2.54 [facility] Comment on above: Order Comment: Christian modi Type: BLOOD SPECIMENOrdering Facility: [facility] Address: [address] [place] [address] Result Comment: Refe rence: 1. National Cholesterol Education Program ATP III Guideline At-A-Glance Quick Desk Reference: National Heart, Lung, and Blood Hurley. National Institutes of Health. 2001: NIH Publication No. 01-3305. 2. An International Atherosclerosis Society position paper: global recommendations for the management of dyslipidemia: executive summary, Atherosclerosis. 2014: 232(2):410-413. Performed By: #### L KEITH, 46665-2, 3024-02, 3 ####[facility] LABCLIA [id number] [address] OF [facility] NON HDL CHOL, NF 83 mg/dL Normal <130 [facility] Comment on above: Order Comment: Christian modi Type: BLOOD SPECIMENOrdering Facility: [facility] Address: [address] [place] [address] Result Comment: <130 mg/dL, Optimal 130-159 mg/dL, Near optimal/above optimal 160-189 mg/dL, Borderline high 190-219 mg/dL, High >219 mg/dL, Very high Secondary prevention optimal non HDL Cholesterol levels are recommended to be <100 mg/dL Performed By: #### L IPNF, 90714-8, 3023-7, 3015-3 ####[facility] LABCLIA [id number] [place] [address] [place] T CHOL/HDL RATIO NF 3.59 mg/dL Normal <5.10 [facility] Comment on above: Order Comment: Speci men Type: BLOOD SPECIMENOrdering Facility: [facility] Address: [address] [place] [address] Performed By: #### L IPNF, 98979-0, 3024-7, 3016-3 ####[facility] LABCLIA [id number] [place] [address] [place] TRIGLYCERIDES, NF 257 mg/dL High <150 [facility] Comment on above: Order Comment: Speci men Type: BLOOD SPECIMENOrdering Facility: [facility] Address: [address] [place] [address] Result Comment: <150 mg/dL, Normal 150-199 mg/dL, Borderline high 200-499 mg/dL, High >499 mg/dL, Very high Performed By: #### L IPNF, 90738-4, 3023-7, 6-3 ####[facility] LABCLIA [id number] [place] [address] [place] VLDL CHOLESTEROL, NF 35 mg/dL High <30 [facility] Comment on above: Order Comment: Speci men Type: BLOOD SPECIMENOrdering Facility: [facility] Address: [address] [place] [address] Performed By: #### L IPNF, 03328-8, 3023-7, 6-3 ####[facility] LABCLIA [id number] [place] [address] [place] T4 Free SerPl-mCncon -31-2 025 Free T4 [Mass/Vol] 1.2 ng/dL Normal 0.9-1.7 [facility] Comment on above: Order Comment: Speci men Type: BLOOD SPECIMENOrdering Facility: [facility] Address: [address] [place] [address] Performed By: #### L IPNF, 02155-3, 302-7, 3016-3 ####[facility] LABCLIA [id number] [place] [id number] [place] TSH SerPl-aCncon 06-24-2025 TSH Qn 2.480 m[IU]/L Normal 0.270-4.200 [facility] Comment on above: Order Comment: Speci men Type: BLOOD SPECIMENOrdering Facility: [facility] Address: [address] [place] [address] Performed By: #### L IP, 45424-2, 3024-7, 3016-3 ####[facility] LABCLIA [id number] [place] [address] [place] Vit B12 SerPl-mCncon 025 Cobalamin (Vitamin B12) [Mass/Vol] 798 pg/mL Normal 232-1245 [facility] Comment on above: Order Comment: Speci men Type: BLOOD SPECIMENOrdering Facility: [facility] Address: [address] [place] [address] Performed By: #### 2 132-9 ####[facility] LABCLIA [id number] [place] [address] [place] XR CHEST 2V [...] Stable exam with no acute radiographic abnormality. Distributing Clerk: TOM Transcribe Date/Time: Jun 26 2025 6:21P Dictated by : FIDEL GAO MD This examination was interpreted and the report reviewed and electronically signed by: FIDEL GAO MD on Jun 26 2025 6:22PM EST [id number] Normal [facility] Cardiology Visit Reporton Cardiology Visit Report [facility] [address] [place] [address] OFFICE VISIT Date of Service: 03/22/25 MR#: [id number] Acct: [id number] Name: TODD MATAMOROS Rep #: [id number] : 1940 Provider: Dr. Jamal Dawson MD Age/Sex: 84/M Location: [facility] [place] Status: Signed HPI HPI History of [...] Monitor Intake Visit Reasons: 1 Y FU Counselor/Art Therapist Required: No Accompanied by: Daughter Is patient [...] angina pectoris Dyspnea on exertion Atherosclerosis of [place] coronary artery of [place] heart without angina pectoris Lupus anticoagulant disorder [...] Negative fo (more content not included)... Normal [facility] CNOVon 12-27-2024 [facility] Office Visit (FAMPWS ) TODD MATAMOROS ([id number]) 1940 M Date Time Provider Department 12/27/24 [...] Asha Hernandez CNP and then sent to [facility] EMERGENCY DEPARTMENT for further assessment with [...] taking medications as prescribed. Continues to see Showplace Manager for followup Iron deficiency, eating iron rich [...] Macular degeneration NSTEMI (non-ST elevated myocardial infarction) ([facility]) 10/28/2019 Osteoarthritis of left hip [...] 07/28/2007 DIR RPR ANEURYSM ABDOMINAL AORTA 04/20/2011 [place] EYLEA (AFLIBERCEPT) 2MG INTRAVITREAL INJECTION OD [...] (more content not included)... Normal [facility] Rosanna 12-20-2024 LEON Telephone (FAMPWS) TODD MATAMOROS ([id number]) 1940 M Date Time Provider Department 12/20/24 ROBEL ONOFRE During your visit today, we recorded the following information about you: Gildardo Franklin RN 12/20/2024 9:05 AM Signed Daughter, Zulema, reports pt saw Asha on 12/14/24 for vertigo. Asha sent pt to [facility] ER that day and ER prescribed [...] Date Reviewed: 12/14/2024 Reviewed by: Asha Hernandez, OUTSIDE PLANT FIELD ENGINEER.SUBMARINE ELEMENT COORDINATOR - Fully Assessed Reason for Visit: Patient Question [0247] Order(s):meclizine (ANTIVERT) 12.5 mg tabTake 1 tablet [...] [place] on 12/21/24 Normal [facility] Absolute lymphocyte countOrd ered By: Cristobal Mayo on 12-14-2024 Lymphocytes Auto (Unsp spec) [#/Vol] 1.05 10*3/uL 0.83-4.[address] [facility] Absolute neutrophil countOrd ered By: Cristobal Mayo on 12-14-2024 Neutrophils (Bld) [#/Vol] 4.8 10*3/uL 2.0-7.[address] [facility] Activated partial thrombopla stin time (aPTT) in platelet poor plasma by coagulation aOrdered By: Cristobal Mayo on 12-14-2024 aPTT Coag (PPP) [Time] 82.8 s High 24.1-36.2 [facility] Anion gap in Serum or Plasma Ordered By: Cristobal Mayo on 12-14-2024 Anion gap [Moles/Vol] 10 mmol/L 5-15 [facility] Automated lymphocyte count a s percentage of total leukocytesOrdered By: Cristobal Mayo on 12-14-2024 Lymphocytes/100 WBC Auto (Unsp spec) 15.9 % Low - [facility] BUN/creatinine ratioOrdered By: Cristobal Mayo on 12-14-2024 Urea nitrogen/Creatinine [Mass ratio] 16.9 mg/mg - [facility] Basic Metabolic Profile (BMP )on 12-14-2024 BUN/CRE 16.9 RATIO Normal - [facility] Comment on above: Performed By: #### L 100.0100, L500.2500, L300.4310, L300.3900 #### [facility] [address] [place], [address] Calcium [Mass/Vol] 9.6 mg/dL Normal 7.6-11.0 [facility] Comment on above: Performed By: #### L 100.0100, L500.2500, L300.4310, L300.3900 #### [facility] [address] [place], [address] Chloride [Moles/Vol] 106 mmol/L Normal 98-108 [facility] Comment on above: Performed By: #### L 100.0100, L500.2500, L300.4310, L300.3900 #### [facility] [address] [place], [address] CO2 [Moles/Vol] 21.1 mmol/L Normal 21.0-32.[address] [facility] Comment on above: Performed By: #### L 100.0100, L500.2500, L300.4310, L300.3900 #### [facility] [address] [place], [address] Creatinine [Mass/Vol] 1.01 mg/dL Normal 0.70-1.20 [facility] Comment on above: Performed By: #### L 100.0100, L500.2500, L300.4310, L300.3900 #### [facility] [address] [place], [address] GAP 10 Normal 5-[address] [facility] Comment on above: Performed By: #### L 100.0100, L500.2500, L300.4310, L300.3900 #### [facility] [address] [place], [address] GFR/1.73 sq M.predicted among non-blacks MDRD (S/P/Bld) [Vol rate/Area] 73 mL/min/{1.73_m2} Normal >[address] [facility] Comment on above: Result Comment: mL/m in/1.73m2 CKD-EPI Creatinine Equation (2020) Performed By: #### L 100.0100, L500.2500, L300.4310, L300.3900 #### [facility] [address] [place], [address] Glucose [Mass/Vol] 112 mg/dL High 70-99 [facility] Comment on above: Performed By: #### L 100.0100, L500.2500, L300.4310, L300.3900 #### [facility] [address] [place], [address] Potassium [Moles/Vol] 4.0 mmol/L Normal 3.3-5.1 [facility] Comment on above: Performed By: #### L 100.0100, L500.2500, L300.4310, L300.3900 #### [facility] [address] [place], [address] Sodium [Moles/Vol] 137 mmol/L Normal 133-145 [facility] Comment on above: Performed By: #### L 100.0100, L500.2500, L300.4310, L300.3900 #### [facility] [address] [place], [address] Urea nitrogen [Mass/Vol] 17 mg/dL Normal 4-[address] [facility] Comment on above: Performed By: #### L 100.0100, L500.2500, L300.4310, L300.3900 #### [facility] [address] [place], [address] Basophil percentageOrdered B y: Cristobal Mayo on 12-14-2024 Basophils/100 WBC (Bld) 0.3 % 0-1 [facility] CBC W/Diff, Automatedon 11-24 Absolute Lymph 1.05 X10 3/uL Normal 0.83-4.[address] [facility] Comment on above: Performed By: #### L 100.0100, L500.2500, L300.4310, L300.3900 #### [facility] [address] [place], [address] Absolute Neut 4.8 X10 3/uL Normal 2.0-7.[address] [facility] Comment on above: Performed By: #### L 100.0100, L500.2500, L300.4310, L300.3900 #### [facility] [address] [place], [address] Basophils/100 WBC (Bld) 0.3 % Normal 0-1 [facility] Comment on above: Performed By: #### L 100.0100, L500.2500, L300.4310, L300.3900 #### [facility] [address] [place], [address] Eosinophils/100 WBC (Bld) 2.7 % Normal 0-[address] [facility] Comment on above: Performed By: #### L 100.0100, L500.2500, L300.4310, L300.3900 #### [facility] [address] [place], [address] Erythrocyte distribution width (RBC) [Ratio] 13.9 % Normal 11.6-14.[address] [facility] Comment on above: Performed By: #### L 100.0100, L500.2500, L300.4310, L300.3900 #### [facility] [address] [place], [address] Hematocrit (Bld) [Volume fraction] 41.5 % Normal 40-[address] [facility] Comment on above: Performed By: #### L 100.0100, L500.2500, L300.4310, L300.3900 #### [facility] [address] [place], [address] Hemoglobin (Bld) [Mass/Vol] 14.6 g/dL Normal 13.0-16.[address] [facility] Comment on above: Performed By: #### L 100.0100, L500.2500, L300.4310, L300.3900 #### [facility] [address] [place], [address] IG% 0.300 Normal 0.0-0.[address] [facility] Comment on above: Result Comment: IG% - Immature Granulocytes (promyelocytes, myelocytes and metamyelocytes) > 1% indicates that a LEFT SHIFT is Present. Performed By: #### L 100.0100, L500.2500, L300.4310, L300.3900 #### [facility] [address] [place], [address] Lymphocytes/100 WBC (Bld) 15.9 % Low 19-[address] [facility] Comment on above: Performed By: #### L 100.0100, L500.2500, L300.4310, L300.3900 #### [facility] [address] [place], [address] MCH (RBC) [Entitic mass] 28.9 pg Normal 27.0-32.[address] [facility] Comment on above: Performed By: #### L 100.0100, L500.2500, L300.4310, L300.3900 #### [facility] [address] [place], [address] MCHC (RBC) [Mass/Vol] 35.2 g/dL Normal 32-36 [facility] Comment on above: Performed By: #### L 100.0100, L500.2500, L300.4310, L300.3900 #### [facility] [address] [place], [address] MCV (RBC) [Entitic vol] 82.2 fL Normal 80-94 [facility] Comment on above: Performed By: #### L 100.0100, L500.2500, L300.4310, L300.3900 #### [facility] [address] [place], [address] Monocytes/100 WBC (Bld) 8.2 % Normal 0-10 [facility] Comment on above: Performed By: #### L 100.0100, L500.2500, L300.4310, L300.3900 #### [facility] [address] [place], [address] Neutrophils/100 WBC (Bld) 72.6 % High 47-[address] [facility] Comment on above: Performed By: #### L 100.0100, L500.2500, L300.4310, L300.3900 #### [facility] [address] [place], [address] Nucleated RBC (Bld) [#/Vol] 0 10*3/uL Normal 0-[address] [facility] Comment on above: Performed By: #### L 100.0100, L500.2500, L300.4310, L300.3900 #### [facility] [address] [place], [address] Platelet mean volume (Bld) [Entitic vol] 9.4 fL Normal 6.2-12.[address] [facility] Comment on above: Performed By: #### L 100.0100, L500.2500, L300.4310, L300.3900 #### [facility] [address] [place], [address] Platelets (Bld) [#/Vol] 122 10*3/uL Low 150-[address] [facility] Comment on above: Performed By: #### L 100.0100, L500.2500, L300.4310, L300.3900 #### [facility] [address] [place], [address] RBC (Bld) [#/Vol] 5.05 10*6/uL Normal 4.6-6.2 [facility] Comment on above: Performed By: #### L 100.0100, L500.2500, L300.4310, L300.3900 #### [facility] [address] [place], [address] RDW SD 41.1 fl Normal 35.1-43.[address] [facility] Comment on above: Performed By: #### L 100.0100, L500.2500, L300.4310, L300.3900 #### [facility] [address] [place], [address] WBC (Bld) [#/Vol] 6.6 10*3/uL Normal 4.4-11.0 [facility] Comment on above: Performed By: #### L 100.0100, L500.2500, L300.4310, L300.3900 #### [facility] [place], [address] CNOVon 12-14-2024 CNOV Office Visit (INTMWS ) TODD MATAMOROS ([id number]) 1940 M Date Time Provider Department 12/14/24 11:40 AM ASHA HERNANDEZ INTMWS During your visit today, we recorded the following information about you: Pulse Respiration Blood pressure Weight 54/minute 12/minute 152/84 84.1 kg Asha Hernandez, OUTSIDE PLANT FIELD ENGINEER.SUBMARINE ELEMENT COORDINATOR 12/14/2024 12:34 PM Signed CC: Patient presents with: Vertigo: Dizziness x 1 day HPI Recording using [employer] software for draft documentation of the visit was discussed with the patient/authorized provider service representative; all questions welcomed and answered. Patient/authorized provider service representative agreed to proceed Daryn is [...] Macular degeneration NSTEMI (non-ST elevated myocardial infarction) ([facility]) 10/28/2019 Osteoarthritis of left hip [...] 07/28/2007 DIR RPR ANEURYSM ABDOMINAL AORTA 04/20/2011 [facility] EYLEA (AFLIBERCEPT) 2MG INTRAVITREAL INJECTION OD (RIGHT [...] included)... Normal [facility] 12-14-2024 [facility] Telephone (ISAIASWS) TODD MATAMOROS ([id number]) 1940 M Date Time Provider Department 12/14/24 ROBEL ONOFRE [facility] During your visit today, we recorded the [...] DEBRA ROMERO on 12/14/24 Normal [facility] CTA Head AND Neck W/ Contras ton 12-14-2024 CTA Head AND Neck W/ Contrast [facility] Imaging Services [address] [place] [address] CTA Head AND Neck W/ Contrast MR#: [id number] Acct: [id number] Name: TODD MATAMOROS Rep #: [id number] : 1940 M 84 From: Galindo redding MD PCP: Dr. Robel Onofre, DO Status: REG ER Study: CTA Head AND Neck W/ Contrast Date of Exam: Exam# [id number] Ordering Dr: Cristobal Mayo DO PROCEDURE: CTA [...] RIGHT Vertebral: Unremarkable. LEFT Vertebral: Unremarkable. Anatomy: [place] anatomy is normal. Aneurysm [...] internal carotid artery. Cerebral atrophy. Reading Location: [place] [address] CC: Dr. Robel Onofre DO; Dr. Cristobal Mayo DO Distributing Clerk: Signed Normal [facility] Carbon dioxide, total [Moles /volume] in Central venous bloodOrdered By: Cristobal Mayo on 12-14-2024 CO2 [Moles/Vol] 21.1 mmol/L 21.0-32.[address] [facility] Chloride assayOrdered By: Geovanni Mayo on 12-14-2024 Chloride [Moles/Vol] 106 mmol/L 98-108 [facility] Emergency Department Summary on 12-14-2024 Emergency Department Summary [facility] Medical Records Department [address] [place] [address] Emergency Department Summary 12/14/24 MR#: [id number] Acct: [id number] Name: TODD MATAMOROS Rep #: [id number] : 1940 84 From: Cristobal Ivory PCP: [...] daughter. 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 Normal [facility] Eosinophil percentageOrdered By: Cristobal Mayo on 12-14-2024 Eosinophils/100 WBC (Bld) 2.7 % 0-[address] [facility] Erythrocyte distribution wid th (RBC) [Ratio]Ordered By: Cristobal Mayo on 12-14-2024 Erythrocyte distribution width (RBC) [Entitic vol] 41.1 fL 35.1-43.[address] [facility] Erythrocyte distribution wid th ratioOrdered By: Cristobal Mayo on 12-14-2024 Erythrocyte distribution width (RBC) [Ratio] 13.9 % 11.6-14.[address] [facility] Erythrocyte distribution wid th standard deviationOrdered By: Cristobal Mayo on 12-14-2024 Erythrocyte distribution width (RBC) [Ratio] 41.1 fl 35.1-43.[address] [facility] GFR/1.73 sq M.predicted lebron g non-blacks MDRD (S/P/Bld) [Vol rate/Area]Ordered By: Cristobal Mayo on 12-14-2024 Estimated GFR (MDRD) Non-Af Amer [address] [facility] Comment on above: mL/min/1.73m2 CKD-EP I Creatinine Equation (2020) Glomerular filtration rate ( GFR) estimation/1.73 sq m using serum, plasma, or whole bOrdered By: Cristobal Mayo on 12-14-2024 GFR/1.73 sq M.predicted among non-blacks MDRD (S/P/Bld) [Vol rate/Area] 73 mL/min/{1.73_m2} >[address] [facility] Comment on above: mL/min/1.73m2 CKD-EP I Creatinine Equation (2020) Hematocrit Auto (Bld) [Volum e fraction]Ordered By: Cristobal Mayo on 12-14-2024 Hematocrit (Bld) [Volume fraction] 41.5 % 40-[address] [facility] Hemoglobin measurementOrdere d By: Cristobal Mayo on 12-14-2024 Hemoglobin (Bld) [Mass/Vol] 14.6 g/dL 13.0-16.[address] [facility] Immature granulocytes/100 WB C Auto (Bld)Ordered By: Cristobal Mayo on 12-14-2024 Immature granulocytes/100 WBC (Bld) 0.300 % 0.0-0.[address] [facility] Comment on above: IG% - Immature Granu locytes (promyelocytes, myelocytes and metamyelocytes) > 1% indicates that a LEFT SHIFT is Present. International normalized rat io (INR) calculationOrdered By: Cristobal Mayo on 12-14-2024 INR Coag (Bld) [Relative time] 1.1 {INR} [facility] Lymphocytes Auto (Unsp spec) [#/Vol]Ordered By: Cristobal Mayo on 12-14-2024 Lymphocytes (Bld) [#/Vol] 1.05 10*3/uL 0.83-4.[address] [facility] Lymphocytes/100 WBC Auto (Un sp spec)Ordered By: Cristobal Mayo on 12-14-2024 Lymphocytes/100 WBC (Bld) 15.9 % Low 19-[address] [facility] MCV (mean corpuscular volume ) determinationOrdered By: Cristobal Mayo on 12-14-2024 MCV (RBC) [Entitic vol] 82.2 fL 80-94 [facility] Mean corpuscular hemoglobin (MCH) determinationOrdered By: Cristobal Mayo on 12-14-2024 MCH (RBC) [Entitic mass] 28.9 pg 27.0-32.[address] [facility] Mean corpuscular hemoglobin concentration (MCHC) determinationOrdered By: Cristobal Mayo on 12-14-2024 MCHC (RBC) [Mass/Vol] 35.2 g/dL 32-36 [facility] Mean platelet volume determi nationOrdered By: Cristobal Mayo on 12-14-2024 Platelet mean volume (Bld) [Entitic vol] 9.4 fL 6.2-12.[address] [facility] Monocyte percentageOrdered B y: Cristobal Mayo on 12-14-2024 Monocytes/100 WBC (Bld) 8.2 % 0-10 [facility] Neutrophil percentageOrdered By: Cristobal Mayo on 12-14-2024 Neutrophils/100 WBC (Bld) 72.6 % High 47-[address] [facility] Nucleated red blood cell per centageOrdered By: Cristobal Mayo on 12-14-2024 Nucleated RBC/100 WBC (Bld) [Ratio] 0 % 0-[address] [facility] Partial Thromboplast Timeon 12-14-2024 aPTT Coag (Bld) [Time] 82.8 s High 24.1-36.2 [facility] Comment on above: Performed By: #### L 100.0100, L500.2500, L300.4310, L300.3900 #### [facility] [address] [place], [address] Platelet countOrdered By: Geovanni Mayo on 12-14-2024 Platelets (Bld) [#/Vol] 122 10*3/uL Low 150-[address] [facility] Potassium (Unsp spec) [Mass/ Vol]Ordered By: Cristobal Mayo on 12-14-2024 Potassium [Moles/Vol] 4.0 mmol/L 3.3-5.1 [facility] Potassium measurement (mass/ volume)Ordered By: Cristobal Mayo on 12-14-2024 Potassium (Unsp spec) [Mass/Vol] 4.0 mmol/L 3.3-5.[address] [facility] Prothrombin Time w/INRon INR Coag (PPP) [Relative time] 1.1 {INR} Normal [facility] Comment on above: Performed By: #### L 100.0100, L500.2500, L300.4310, L300.3900 #### [facility] [address] [place], [address] PT Coag (PPP) [Time] 14.0 s Normal 11.7-14.9 [facility] Comment on above: Performed By: #### L 100.0100, L500.2500, L300.4310, L300.3900 #### [facility] [address] [place], [address] Prothrombin timeOrdered By: Cristobal Mayo on 12-14-2024 PT Coag (PPP) [Time] 14.0 s 11.7-14.9 [facility] RBC Auto (Bld) [#/Vol]Ordere d By: Cristobal Mayo on 12-14-2024 RBC (Bld) [#/Vol] 5.05 10*6/uL 4.6-6.2 [facility] Serum creatinine measurement (mass/volume)Ordered By: Cristobal Mayo on 12-14-2024 Creatinine [Mass/Vol] 1.01 mg/dL 0.70-1.20 [facility] Serum glucose measurement (m ass/volume)Ordered By: Cristobal Mayo on 12-14-2024 Glucose [Mass/Vol] 112 mg/dL High 70-99 [facility] Serum or plasma calcium kimmie urement (mass/volume)Ordered By: Cristobal Mayo on 12-14-2024 Calcium [Mass/Vol] 9.6 mg/dL 7.6-11.0 [facility] Serum or plasma urea nitroge n measurement (mass/volume)Ordered By: Cristobal Mayo on 12-14-2024 Urea nitrogen [Mass/Vol] 17 mg/dL 4-[address] [facility] Sodium levelOrdered By: Cristobal Mayo on 12-14-2024 Sodium [Moles/Vol] 137 mmol/L 133-145 [facility] White blood cell (WBC) count Ordered By: Cristobal Mayo on 12-14-2024 WBC (Bld) [#/Vol] 6.6 10*3/uL 4.4-11.0 [facility] aPTT Coag (PPP) [Time]Ordere d By: Cristobal Mayo on 12-14-2024 aPTT Coag (Bld) [Time] 82.8 s High 24.1-36.2 [facility] CNPNon 10-08-2024 CNPN Telephone (FAMDahianaWS) TODD MATAMOROS ([id number]) 1940 M Date Time Provider Department 10/08/24 ROBEL ONOFRE During your visit today, we recorded the following information about you: Zenaida Morrissey 10/08/2024 8:17 AM Signed Shy is calling Robel Onofre DO today to request Letter (Blindness confirmation for taxes) Patient has been identified by name and birthdate. Duration of symptoms: N/A Person calling: daughter: Jadyn Lew patient at: [phone] Was an appointment scheduled: No Closing statement: [...] Status:Closed by RODNEY KIRK LPN on 10/12/24 [facility] Rosanna 08-30-2024 [place] Telephone (FAMPWS) TODD MATAMOROS ([id number]) 1940 M Date Time Provider Department 08/30/24 ROBEL ONOFRE During your visit today, we recorded the following information about you: Rodney Kirk LPN 08/30/2024 12:11 PM Signed Type of form: Deaf and blind form Form received via walk in When form is completed, PhoneTina when complete.[phone] Form has been forwarded to Physician Desk: [...] it to her in the mail at [address] [phone]. SAMUEL Delgado Jordan L, DO 09/01/2024 8:16 [...] Status:Closed by RODNEY KIRK LPN on 11/30/24 [facility] 07-01-2024 [facility] Telephone (FAMPWS) TODD MATAMOROS ([id number]) 1940 M Date Time Provider Department 07/01/24 [...] KORTNEY BONNER on 07/01/24 Normal [facility] 25([place])D3 [facility] 2023 25-hydroxyvitamin D3 [Mass/Vol] 44.7 ng/mL Normal 31.0-80.0 [facility] Comment on above: Order Comment: Speci men Type: BLOOD SPECIMENOrdering Facility: [facility] Address: [address] [place] [address] Result Comment: Clas sification of 25 [place] Vitamin D status: Deficiency/Insufficiency: < or = 30 ng/ml. Sufficiency/Optimal Levels: 31-80 ng/mL Toxicity: > 100 ng/mL. Test performed by chemiluminescent immunoassay. Performed By: #### 1 989-3 ####[facility] LABCLIA [id number] [place] [address] [place] CBC W Auto Differential pane l (Bld)on 06-30-2024 Basophils (Bld) [#/Vol] 10*3/uL Normal <0.11 [facility] Comment on above: Order Comment: Speci men Type: BLOOD SPECIMENOrdering Facility: [facility] Address: [address] [place] [address] Performed By: #### 5 7021-8 ####[facility] LABIA [id number] [place] [address] [place] Basophils/100 WBC (Bld) 0.3 % Normal [facility] Comment on above: Order Comment: Speci men Type: BLOOD SPECIMENOrdering Facility: [facility] Address: [address] [place] [address] Performed By: #### 5 7021-8 ####[facility] LABCLIA [id number] [place] [address] [place] Differential cell count method Nom (Bld) Auto Normal [facility] Comment on above: Order Comment: Speci men Type: BLOOD SPECIMENOrdering Facility: [facility] Address: [address] [place] [address] Performed By: #### 5 7021-8 ####[facility] LABCLIA [id number] [id number] [address] [place] Eosinophils (Bld) [#/Vol] 0.23 10*3/uL Normal <0.46 [facility] Comment on above: Order Comment: Speci men Type: BLOOD SPECIMENOrdering Facility: [facility] Address: [address] [place] [address] Performed By: #### 5 7021-8 ####[facility] LABCLIA [id number] [place] [address] [place] Eosinophils/100 WBC (Bld) 3.1 % Normal [facility] Comment on above: Order Comment: Speci men Type: BLOOD SPECIMENOrdering Facility: [facility] Address: [address] [place] [address] Performed By: #### 5 7021-8 ####[facility] LABCLIA [id number] [place] [address] [place] Erythrocyte distribution width (RBC) [Ratio] 14.1 % Normal 11.5-15.0 [facility] Comment on above: Order Comment: Speci men Type: BLOOD SPECIMENOrdering Facility: [facility] Address: [address] [place] [address] Performed By: #### 5 7021-8 ####[facility] LABCLIA [id number] [address] [place] Hematocrit (Bld) [Volume fraction] 42.9 % Normal 39.0-51.0 [facility] Comment on above: Order Comment: Speci men Type: BLOOD SPECIMENOrdering Facility: [facility] Address: [address] [place] [address] Performed By: #### 5 7021-8 ####[facility] LABCLIA [id number] [place] [address] [place] Hemoglobin (Bld) [Mass/Vol] 14.6 g/dL Normal 13.0-17.0 [facility] Comment on above: Order Comment: Speci men Type: BLOOD SPECIMENOrdering Facility: [facility] Address: [address] [place] [address] Performed By: #### 5 7021-8 ####[facility] LABCLIA [id number] [place] [address] [place] Immature granulocytes (Bld) [#/Vol] 0.03 10*3/uL Normal <0.10 [facility] Comment on above: Order Comment: Speci men Type: BLOOD SPECIMENOrdering Facility: [facility] Address: [address] [place] [address] Performed By: #### 5 7021-8 ####[facility] LABCLIA [id number] [place] [address] [place] Immature granulocytes/100 WBC (Bld) 0.4 % Normal [facility] Comment on above: Order Comment: Speci men Type: BLOOD SPECIMENOrdering Facility: [facility] Address: [address] [place] [address] Performed By: #### 5 7021-8 ####[facility] LABCLIA [id number] [place] [address] [place] Lymphocytes (Bld) [#/Vol] 1.43 10*3/uL Normal 1.00-4.00 [facility] Comment on above: Order Comment: Speci men Type: BLOOD SPECIMENOrdering Facility: [facility] Address: [address] [place] [address] Performed By: #### 5 7021-8 ####[facility] LABCLIA [id number] [place] [address] [place] Lymphocytes/100 WBC (Bld) 19.1 % Normal [facility] Comment on above: Order Comment: Speci men Type: BLOOD SPECIMENOrdering Facility: [facility] Address: [address] [place] [address] Performed By: #### 5 7021-8 ####[facility] LABCLIA [id number] [address] [id number] [address] [place] MCH (RBC) [Entitic mass] 29.9 pg Normal 26.0-34.0 [facility] Comment on above: Order Comment: Speci men Type: BLOOD SPECIMENOrdering Facility: [facility] Address: [address] [place] [address] Performed By: #### 5 7021-8 ####[facility] LABCLIA [id number] [place] [address] [place] MCHC (RBC) [Mass/Vol] 34.0 g/dL Normal 30.5-36.0 [facility] Comment on above: Order Comment: Speci men Type: BLOOD SPECIMENOrdering Facility: [facility] Address: [address] [place] [address] Performed By: #### 5 7021-8 ####[facility] LABCLIA [id number] [place] [address] [place] MCV (RBC) [Entitic vol] 87.9 fL Normal 80.0-100.0 [facility] Comment on above: Order Comment: Speci men Type: BLOOD SPECIMENOrdering Facility: [facility] Address: [address] [place] [address] Performed By: #### 5 7021-8 ####[facility] LABIA [id number] [place] [address] [place] Monocytes (Bld) [#/Vol] 0.72 10*3/uL Normal <0.87 [facility] Comment on above: Order Comment: Speci men Type: BLOOD SPECIMENOrdering Facility: [facility] Address: [address] [place] [address] Performed By: #### 5 7021-8 ####[facility] LABCLIA [id number] [place] [address] [place] Monocytes/100 WBC (Bld) 9.6 % Normal [facility] Comment on above: Order Comment: Speci men Type: BLOOD SPECIMENOrdering Facility: [facility] Address: [address] [place] [address] Performed By: #### 5 7021-8 ####[facility] LABCLIA [id number] [place] [address] [place] Neutrophils (Bld) [#/Vol] 5.05 10*3/uL Normal 1.45-7.50 [facility] Comment on above: Order Comment: Speci men Type: BLOOD SPECIMENOrdering Facility: [facility] Address: [address] [place] [address] Performed By: #### 5 7021-8 ####[facility] LABCLIA [id number] [place] [address] [place] Neutrophils/100 WBC (Bld) 67.5 % Normal [facility] Comment on above: Order Comment: Speci men Type: BLOOD SPECIMENOrdering Facility: [facility] Address: [address] [place] [address] Performed By: #### 5 7021-8 ####[facility] LABCLIA [id number] [place] [address] [place] Nucleated RBC (Bld) [#/Vol] 10*3/uL Normal <0.01 [facility] Comment on above: Order Comment: Speci men Type: BLOOD SPECIMENOrdering Facility: [facility] Address: [address] [place] [address] Performed By: #### 5 7021-8 ####[facility] LABCLIA [id number] [place] [address] [place] Nucleated RBC/100 WBC (Bld) [Ratio] 0.0 /100 WBC Normal [facility] Comment on above: Order Comment: Speci men Type: BLOOD SPECIMENOrdering Facility: [facility] Address: [address] [place] [address] Performed By: #### 5 7021-8 ####[facility] LABCLIA [id number] [place] [address] [place] Platelet mean volume (Bld) [Entitic vol] 9.8 fL Normal 9.0-12.7 [facility] Comment on above: Order Comment: Speci men Type: BLOOD SPECIMENOrdering Facility: [facility] Address: [address] [place] [address] Performed By: #### 5 7021-8 ####[facility] LABIA [id number] [place] [address] [place] Platelets (Bld) [#/Vol] 133 10*3/uL Low 150-400 [facility] Comment on above: Order Comment: Speci men Type: BLOOD SPECIMENOrdering Facility: [facility] Address: [address] [place] [address] Performed By: #### 5 7021-8 ####[facility] LABIA [id number] [place] [address] [place] RBC (Bld) [#/Vol] 4.88 10*6/uL Normal 4.20-6.00 [facility] Comment on above: Order Comment: Speci men Type: BLOOD SPECIMENOrdering Facility: [facility] Address: [address] [place] [address] Performed By: #### 5 7021-8 ####[facility] LABIA [id number] [place] [address] [place] WBC (Bld) [#/Vol] 7.48 10*3/uL Normal 3.70-11.00 [facility] Comment on above: Order Comment: Speci men Type: BLOOD SPECIMENOrdering Facility: [facility] Address: [address] [place] [address] Performed By: #### 5 7021-8 ####[facility] LABCLIA [id number] [place] [address] [place] CNOVon 06-30-2024 CNOV Office Visit (FAMPWS ) TODD MATAMOROS ([id number]) 1940 M Date Time Provider Department 06/30/24 10:40 AM [facility] During your visit today, we recorded [...] taking medications as prescribed. 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 Last labs in November Mood, overall stable, taking Sertraline. Helps to care for his with dementia. Daughter feels he is doing well. 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 Lower abdomen. BPH (benign prostatic hyperplasia) CAD (coronary artery disease) Diverticulosis of colon (without mention of hemorrhage) GERD (gastroesophageal reflux disease) Hyperlipidemia Hypertension Internal hemorrhoids without mention of complication Macular degeneration NSTEMI (non-ST elevated myocardial infarction) ([facility]) 10/28/2019 Osteoarthritis of left hip [...] 07/28/2007 DIR RPR ANEURYSM ABDOMINAL AORTA 04/20/2011 [place] EYLEA (AFLIBERCEPT) 2MG INTRAVITREAL INJECTION OD [...] (more content not included)... Normal [facility] Comprehensive metabolic 2000 panelon 06-30-2024 Albumin [Mass/Vol] 4.2 g/dL Normal 3.9-4.9 [facility] Comment on above: Order Comment: Speci men Type: BLOOD SPECIMENOrdering Facility: [facility] Address: [address] [place] [address] Performed By: #### 2 4323-8, LIPNF, 3015-10, ####[facility] LABCLIA [id number] [place] [address] [place] ALP [Catalytic activity/Vol] 123 U/L High 38-113 [facility] Comment on above: Order Comment: Speci men Type: BLOOD SPECIMENOrdering Facility: [facility] Address: [address] [place] [address] Performed By: #### 2 4323-8, LIPNF, 3015-10, ####[facility] LABCLIA [id number] [place] [address] [place] ALT [Catalytic activity/Vol] 12 U/L Normal 10-54 [facility] Comment on above: Order Comment: Speci men Type: BLOOD SPECIMENOrdering Facility: [facility] Address: [address] [place] [address] Performed By: #### 2 4323-8, LIPNF, 6-3, ####[facility] LABCLIA [id number] [place] [address] [place] Anion gap [Moles/Vol] 11 mmol/L Normal 8-15 [facility] Comment on above: Order Comment: Speci men Type: BLOOD SPECIMENOrdering Facility: [facility] Address: [address] [place] [address] Performed By: #### 2 4323-8, LIPNF, 6-3, ####[facility] LABCLIA [id number] [place] [address] [place] AST [Catalytic activity/Vol] 13 U/L Low 14-40 [facility] Comment on above: Order Comment: Speci men Type: BLOOD SPECIMENOrdering Facility: [facility] Address: [address] [place] [address] Performed By: #### 2 4323-8, LIPNF, 6-3, ####[facility] LABCLIA [id number] [place] [address] [place] Bilirubin [Mass/Vol] 0.6 mg/dL Normal 0.2-1.3 [facility] Comment on above: Order Comment: Speci men Type: BLOOD SPECIMENOrdering Facility: [facility] Address: [address] [place] [address] Performed By: #### 2 4323-8, LIPNF, 3015-3, ####[facility] LABCLIA [id number] [place] [address] [place] Calcium [Mass/Vol] 9.3 mg/dL Normal 8.5-10.2 [facility] Comment on above: Order Comment: Speci men Type: BLOOD SPECIMENOrdering Facility: [facility] Address: [address] [place] [address] Performed By: #### 2 4323-8, LIPNF, 6-3, ####[facility] LABCLIA [id number] [place] [address] [place] Chloride [Moles/Vol] 105 mmol/L Normal 98-107 [facility] Comment on above: Order Comment: Speci men Type: BLOOD SPECIMENOrdering Facility: [facility] Address: [address] [place] [address] Performed By: #### 2 4323-8, LIPNF, 6-3, ####[facility] LABIA [id number] [place] [address] [place] CO2 [Moles/Vol] 21 mmol/L Low 22-30 [facility] Comment on above: Order Comment: Speci men Type: BLOOD SPECIMENOrdering Facility: [facility] Address: [address] [place] [address] Performed By: #### 2 4323-8, LIPNF, 6-3, ####[facility] LABIA [id number] [place] [address] [place] Creatinine [Mass/Vol] 1.09 mg/dL Normal 0.73-1.22 [facility] Comment on above: Order Comment: Speci men Type: BLOOD SPECIMENOrdering Facility: [facility] Address: [address] [place] [address] Performed By: #### 2 4323-8, LIPNF, 3015-3, ####[facility] LABIA [id number] [place] [address] [place] Creatinine and Glomerular filtration rate.predicted panel (S/P/Bld) 67 mL/min/1.73m??? Normal >=60 [facility] Comment on above: Order Comment: Speci men Type: BLOOD SPECIMENOrdering Facility: [facility] Address: [address] [place] [address] Result Comment: Shannan mated Glomerular Filtration Rate [...] Performed By: #### 2 4323-8, ALEJA, 3015-3, ####[facility] LABIA [id number] [address] [address] [place] Glucose [Mass/Vol] 98 mg/dL Normal 74-99 [facility] Comment on above: Order Comment: Speci men Type: BLOOD SPECIMENOrdering Facility: [facility] Address: [address] [place] [address] Result Comment: The [place] Diabetes Association (ADA) provides guidance for cutoff [...] Standards of Medical Care in Diabetes 2016, [place] Diabetes Association. Diabetes Care. 2016.39(Suppl 1). Performed By: #### 2 4323-8, LIPTITO, 3015-3, ####[facility] LABIA [id number] [address] [address] [place] Potassium [Moles/Vol] 4.0 mmol/L Normal 3.7-5.1 [facility] Comment on above: Order Comment: Speci men Type: BLOOD SPECIMENOrdering Facility: [facility] Address: [address] [id number] Performed By: #### 2 4323-8, LIPNF, 3016-3, ####[facility] LABCLIA [id number] [address] [address] [place] Protein [Mass/Vol] 6.6 g/dL Normal 6.3-8.0 [facility] Comment on above: Order Comment: Speci men Type: BLOOD SPECIMENOrdering Facility: [facility] Address: [address] [place] [address] Performed By: #### 2 4323-8, LIPNF, 6-3, ####[facility] LABIA [id number] [place] [address] [place] Sodium [Moles/Vol] 137 mmol/L Normal 136-144 [facility] Comment on above: Order Comment: Speci men Type: BLOOD SPECIMENOrdering Facility: [facility] Address: [address] [place] [address] Performed By: #### 2 4323-8, LIPNF, 6-3, ####[facility] LABIA [id number] [place] [address] [place] Urea nitrogen [Mass/Vol] 22 mg/dL Normal 9-24 [facility] Comment on above: Order Comment: Speci men Type: BLOOD SPECIMENOrdering Facility: [facility] Address: [address] [place] [address] Performed By: #### 2 4323-8, LIPNF, 6-3, ####[facility] LABIA [id number] [place] [id number] [place] HbA1c (Bld)on 06-30-2024 Average glucose Estimated from glycated hemoglobin (Bld) [Mass/Vol] 100 mg/dL Normal [facility] Comment on above: Order Comment: Speci men Type: BLOOD SPECIMENOrdering Facility: [facility] Address: [address] [place] [address] Result Comment: eAG: (Estimated average glucose) is a calculated value from HgbA1c and is provider service representative of the average blood glucose level in the last 2-3 month period. Performed By: #### 5 5454-3 ####[facility] LABCLIA [id number] [place] [address] [place] HbA1c (Bld) [Mass fraction] 5.1 % Normal 4.3-5.6 [facility] Comment on above: Order Comment: Christian modi Type: BLOOD SPECIMENOrdering Facility: [facility] Address: [address] [place] [address] Result Comment: Amer [place] Diabetes Association guidelines indicate that patients with HgbA1c in the range 5.7-6.4% are at increased risk for development of diabetes, and intervention by lifestyle modification may be beneficial. HgbA1c greater or equal to 6.5% is considered diagnostic of diabetes. Performed By: #### 5 5454-3 ####[facility] LABIA [id number] [place] [address] [place] LIPID PANEL, NONFASTINGon Cholesterol [Mass/Vol] 126 mg/dL Normal <200 [facility] Comment on above: Order Comment: Christian modi Type: BLOOD SPECIMENOrdering Facility: [facility] Address: [address] [place] [address] Result Comment: <200 mg/dL, Desirable 200-239 mg/dL, Borderline high >239 mg/dL, High Performed By: #### 2 4323-8, LIPNF, 3016-3, 06133-2 ####[facility] LABIA [id number] [place] [address] [place] HDL CHOLESTEROL, NF 33 mg/dL Low >39 [facility] Comment on above: Order Comment: Christian modi Type: BLOOD SPECIMENOrdering Facility: [facility] Address: [address] [place] [address] Result Comment: 40-5 9 mg/dL, Acceptable >59 mg/dL, High: Negative risk factor for coronary heart disease <40 mg/dL, Low: Positive risk factor for coronary heart disease Performed By: #### 2 4323-8, LIPNF, 3015-3, ####[facility] LABCLIA [id number] [place] [address] [place] LDL CHOLESTEROL, NF 43 mg/dL Normal <100 [facility] Comment on above: Order Comment: Speci men Type: BLOOD SPECIMENOrdering Facility: [facility] Address: [address] [place] [address] Result Comment: <100 mg/dL, Optimal 100-129 mg/dL, Near optimal/above optimal 130-159 mg/dL, Borderline high 160-189 mg/dL, High >189 mg/dL, Very high Secondary prevention optimal LDL Cholesterol levels are recommended to be < 70 mg/dL Performed By: #### 2 4323-8, LIPNF, 3015-10, ####[facility] LABCLIA [id number] [address] [place] LDL/HDL RATIO, NF 1.30 mg/dL Normal <2.54 [facility] Comment on above: Order Comment: Emii men Type: BLOOD SPECIMENOrdering Facility: [facility] Address: [address] [place] [address] Result Comment: Refe isabellce: 1. National Cholesterol Education Program ATP III Guideline At-A-Glance Quick Desk Reference: National Heart, Lung, and Blood Hurley. National Institutes of Health. 2001: NIH Publication No. 01-3305. 2. An International Atherosclerosis Society position paper: global recommendations for the management of dyslipidemia: executive summary, Atherosclerosis. 2014: 232(2):410-413. Performed By: #### 2 4323-8, LIPNF, 3015-, ####[facility] LABCLIA [id number] [place] [address] [place] NON HDL CHOL, NF 93 mg/dL Normal <130 [facility] Comment on above: Order Comment: Speci men Type: BLOOD SPECIMENOrdering Facility: [facility] Address: [address] [place], [place] [id number] Result Comment: <130 mg/dL, Optimal 130-159 mg/dL, Near optimal/above optimal 160-189 mg/dL, Borderline high 190-219 mg/dL, High >219 mg/dL, Very high Secondary prevention optimal non HDL Cholesterol levels are recommended to be <100 mg/dL Performed By: #### 2 4323-8, LIPNF, 3015-3, ####[facility] LABCLIA [id number] [place] [address] [place] T CHOL/HDL RATIO NF 3.82 mg/dL Normal <5.10 [facility] Comment on above: Order Comment: Speci men Type: BLOOD SPECIMENOrdering Facility: [facility] Address: [address] [place] [address] Performed By: #### 2 4323-8, LIPNF, 3015-10, ####[facility] LABCLIA [id number] [place] [address] [place] TRIGLYCERIDES, NF 251 mg/dL High <150 [facility] Comment on above: Order Comment: Speci men Type: BLOOD SPECIMENOrdering Facility: [facility] Address: [address] [place] [address] Result Comment: <150 mg/dL, Normal 150-199 mg/dL, Borderline high 200-499 mg/dL, High >499 mg/dL, Very high Performed By: #### 2 4323-8, LIPNF, 3015-10, ####[facility] LABCLIA [id number] [place] [id number] [place] VLDL CHOLESTEROL, NF 50 mg/dL High <30 [facility] Comment on above: Order Comment: Speci men Type: BLOOD SPECIMENOrdering Facility: [facility] Address: [address] [place] [address] Performed By: #### 2 4323-8, LIPNF, 3015-10, ####[facility] LABCLIA [id number] [address] [address] [place] Magnesium SerPl-mCncon 06-30 Magnesium [Mass/Vol] 2.2 mg/dL Normal 1.7-2.3 [facility] Comment on above: Order Comment: Speci men Type: BLOOD SPECIMENOrdering Facility: [facility] Address: [address] [place] [address] Performed By: #### 2 4323-8, LIPNF, 3015-10, ####[facility] LABIA [id number] [place] [id number] [place] TSH SerPl-aCncon 06-30-2024 TSH Qn 2.020 m[IU]/L Normal 0.270-4.200 [facility] Comment on above: Order Comment: Speci men Type: BLOOD SPECIMENOrdering Facility: [facility] Address: [address] [place] [address] Performed By: #### 2 4323-8, LIPNF, 3015-10, ####[facility] LABIA [id number] [place] [address] [place] Urinalysis complete panel (U )on 06-30-2024 Bacteria LM.HPF (Urine sed) [#/Area] Negative Normal Negative [facility] Comment on above: Order Comment: Speci men Type: URINE SPECIMENOrdering Facility: [facility] Address: [address] [place] [address] Performed By: #### 2 4356-8 ####[facility] LABIA [id number] [place] [address] [place] Bilirubin Ql (U) Negative Normal Negative [facility] Comment on above: Order Comment: Speci men Type: URINE SPECIMENOrdering Facility: [facility] Address: [address] [place] [address] Performed By: #### 2 4356-8 ####[facility] LABCLIA [id number] [place] [address] [place] Clarity (Unsp spec) Clear Normal Clear [facility] Comment on above: Order Comment: Speci men Type: URINE SPECIMENOrdering Facility: [facility] Address: [address] [place] [address] Performed By: #### 2 4356-8 ####[facility] LABCLIA [id number] [place] [address] [place] Color (U) Dark Yellow Abnormal Yellow [facility] Comment on above: Order Comment: Speci men Type: URINE SPECIMENOrdering Facility: [facility] Address: [address] [place] [address] Performed By: #### 2 4356-8 ####[facility] LABCLIA [id number] [place] [address] [place] Epithelial cells LM.HPF (Urine sed) [#/Area] Few Normal [facility] Comment on above: Order Comment: Speci men Type: URINE SPECIMENOrdering Facility: [facility] Address: [address] [place] [address] Performed By: #### 2 4356-8 ####[facility] LABCLIA [id number] [place] [address] [place] Glucose Test strip (U) [Mass/Vol] Negative Normal Negative [facility] Comment on above: Order Comment: Speci men Type: URINE SPECIMENOrdering Facility: [facility] Address: [address] [place] [address] Performed By: #### 2 4356-8 ####[facility] LABCLIA [id number] [place] [address] [place] Hemoglobin Ql (U) Negative Normal Negative [facility] Comment on above: Order Comment: Speci men Type: URINE SPECIMENOrdering Facility: [facility] Address: [address] [place] [address] Performed By: #### 2 4356-8 ####[facility] LABCLIA [id number] [place] [address] [place] Hyaline casts (Urine sed) [#/Area] 0 /[LPF] Normal 0 /LPF [facility] Comment on above: Order Comment: Speci men Type: URINE SPECIMENOrdering Facility: [facility] Address: [address] [place] [address] Performed By: #### 2 4356-8 ####[facility] LABCLIA [id number] [place] [address] [place] Ketones Ql (U) Negative Normal Negative [facility] Comment on above: Order Comment: Speci men Type: URINE SPECIMENOrdering Facility: [facility] Address: [address] [place] [address] Performed By: #### 2 4356-8 ####[facility] LABCLIA [id number] [place] [address] [place] Leukocyte esterase Test strip Ql (U) Negative Normal Negative [facility] Comment on above: Order Comment: Speci men Type: URINE SPECIMENOrdering Facility: [facility] Address: [address] [place] [address] Performed By: #### 2 4356-8 ####[facility] LABCLIA [id number] [place] [address] [place] Nitrite Ql (U) Negative Normal Negative [facility] Comment on above: Order Comment: Speci men Type: URINE SPECIMENOrdering Facility: [facility] Address: [address] [place] [address] Performed By: #### 2 4356-8 ####[facility] LABCLIA [id number] [place] [address] [place] pH (U) 5.5 [pH] Normal <8.5 [facility] Comment on above: Order Comment: Speci men Type: URINE SPECIMENOrdering Facility: [facility] Address: [address] [place] [address] Performed By: #### 2 4356-8 ####[facility] LABIA [id number] [place] [address] [place] Protein (U) [Mass/Vol] Trace Abnormal Negative [facility] Comment on above: Order Comment: Speci men Type: URINE SPECIMENOrdering Facility: [facility] Address: [address] [place] [address] Performed By: #### 2 4356-8 ####[facility] [id number] [place] [address] [place] RBC LM.HPF (Urine sed) [#/Area] 0-2 /HPF Normal 0-2 /HPF [facility] Comment on above: Order Comment: Speci men Type: URINE SPECIMENOrdering Facility: [facility] Address: [address] [place] [address] Performed By: #### 2 4356-8 ####[facility] [id number] [place] [address] [place] Specific gravity (U) [Rel density] 1.024 Normal 1.005-1.030 [facility] Comment on above: Order Comment: Speci men Type: URINE SPECIMENOrdering Facility: [facility] Address: [address] [place] [address] Performed By: #### 2 4356-8 ####[facility] [id number] [place] [address] [place] Urobilinogen Ql (U) 1.0 EU/dL Normal 0.2-1.0 EU/dL [facility] Comment on above: Order Comment: Speci men Type: URINE SPECIMENOrdering Facility: [facility] Address: [address] [place] [address] Performed By: #### 2 4356-8 ####[facility] LABCLIA [id number] [place] [id number] [place] WBC LM.HPF (Urine sed) [#/Area] 0-5 /HPF Normal 0-5 /HPF [facility] Comment on above: Order Comment: Speci men Type: URINE SPECIMENOrdering Facility: [facility] Address: [address] [place] [address] Performed By: #### 2 4356-8 ####[facility] LABCLIA [id number] [place] [id number] [place] Vit B12 [facility] 06-30- 024 Cobalamin (Vitamin B12) [Mass/Vol] 1079 pg/mL Normal 232-1245 [facility] Comment on above: Order Comment: Speci men Type: BLOOD SPECIMENOrdering Facility: [facility] Address: [address] [place] [address] Performed By: #### 2 132-9 ####[facility] LABCLIA [id number] [place] [id number] [place] 25-hydroxyvitamin D3 [Mass/V ol]on 12-22-2023 Interpretation and review of laboratory results Normal [facility] The reference range interval was based on an analysis of samples from healthy adults and may not pertain to children from 0-18 years old. [facility] CBC W Auto Differential pane l (Bld)on 12-22-2023 Basophils (Bld) [#/Vol] 0.03 10*3/uL [facility] Basophils/100 WBC (Bld) 0.4 % C [facility] Differential cell count method Nom (Bld) Auto [facility] Eosinophils (Bld) [#/Vol] 0.54 10*3/uL High [facility] Eosinophils/100 WBC (Bld) 7.7 % [facility] Erythrocyte distribution width (RBC) [Ratio] 14.2 % 11.5 - 15.0 % [facility] Hematocrit (Bld) [Volume fraction] 44.0 % 39.0 - 51.0 % [facility] Hemoglobin (Bld) [Mass/Vol] 15.2 g/dL 13.0 - 17.0 g/dL [facility] Immature granulocytes (Bld) [#/Vol] 0.03 10*3/uL [facility] Immature granulocytes/100 WBC (Bld) 0.4 % [facility] Interpretation and review of laboratory results Abnormal [facility] Lymphocytes (Bld) [#/Vol] 1.45 10*3/uL [facility] Lymphocytes/100 WBC (Bld) 20.7 % [facility] MCH (RBC) [Entitic mass] 30.5 pg 26.0 - 34.0 pg [facility] MCHC (RBC) [Mass/Vol] 34.5 g/dL 30.5 - 36.0 g/dL [facility] MCV (RBC) [Entitic vol] 88.2 fL 80.0 - 100.0 fL [facility] Monocytes (Bld) [#/Vol] 0.62 10*3/uL [facility] Monocytes/100 WBC (Bld) 8.8 % [facility] Neutrophils (Bld) [#/Vol] 4.34 10*3/uL [facility] Neutrophils/100 WBC (Bld) 62.0 % [facility] Nucleated RBC (Bld) [#/Vol] [facility] Nucleated RBC/100 WBC (Bld) [Ratio] 0.0 % /100 WBC [facility] Platelet mean volume (Bld) [Entitic vol] 10.0 fL 9.0 - 12.7 fL [facility] Platelets (Bld) [#/Vol] 126 10*3/uL Low [facility] RBC (Bld) [#/Vol] 4.99 10*6/uL 4.20 - 6.0 0 m/uL [facility] WBC (Bld) [#/Vol] 7.01 10*3/uL [facility] VITAMIN D 25 HYDROXYon 12-21 25-hydroxyvitamin D3 [Mass/Vol] 47.9 ng/mL 31.0 - 80.0 ng/mL [facility] Comment on above: Classification of 25 [place] Vitamin D status: Deficiency/Insufficiency: < or = 30 ng/ml. Sufficiency/Optimal Levels: 31-80 ng/mL Toxicity: > 100 ng/mL. Test performed by chemiluminescent immunoassay. CBC W Auto Differential pane l (Bld)on 12-06-2022 Basophils (Bld) [#/Vol] 0.03 10*3/uL <0.11 k/uL [facility] Basophils/100 WBC (Bld) 0.4 % C [facility] Differential cell count method Nom (Bld) Auto [facility] Eosinophils (Bld) [#/Vol] 0.23 10*3/uL <0.46 k/uL [facility] Eosinophils/100 WBC (Bld) 3.3 % [facility] Erythrocyte distribution width (RBC) [Ratio] 16.5 % High 11.5 - 15.0 % [facility] Hematocrit (Bld) [Volume fraction] 38.5 % Low 39.0 - 51.0 % [facility] Hemoglobin (Bld) [Mass/Vol] 12.2 g/dL Low 13.0 - 17.0 g/dL [facility] Immature granulocytes (Bld) [#/Vol] 0.03 10*3/uL <0.10 k/uL [facility] Immature granulocytes/100 WBC (Bld) 0.4 % [facility] Lymphocytes (Bld) [#/Vol] 1.41 10*3/uL 1.00 - 4.00 k/uL [facility] Lymphocytes/100 WBC (Bld) 20.5 % [facility] MCH (RBC) [Entitic mass] 25.6 pg Low 26.0 - 34.0 pg [facility] MCHC (RBC) [Mass/Vol] 31.7 g/dL 30.5 - 36.0 g/dL [facility] MCV (RBC) [Entitic vol] 80.7 fL 80.0 - 100.0 fL [facility] Monocytes (Bld) [#/Vol] 0.75 10*3/uL <0.87 k/uL [facility] Monocytes/100 WBC (Bld) 10.9 % C [facility] Neutrophils (Bld) [#/Vol] 4.43 10*3/uL 1.45 - 7.50 k/uL [facility] Neutrophils/100 WBC (Bld) 64.5 % [facility] Nucleated RBC (Bld) [#/Vol] <0.01 k/uL [facility] Nucleated RBC/100 WBC (Bld) [Ratio] 0.0 /100 WBC [facility] Platelet mean volume (Bld) [Entitic vol] 10.0 fL 9.0 - 12.7 fL [facility] Platelets (Bld) [#/Vol] 174 10*3/uL 150 - 400 k/uL [facility] RBC (Bld) [#/Vol] 4.77 10*6/uL 4.20 - 6.0 0 m/uL [facility] WBC (Bld) [#/Vol] 6.88 10*3/uL 3.70 - 11.00 k/uL [facility] Comprehensive metabolic 2000 panelon 12-06-2022 Albumin [Mass/Vol] 4.1 g/dL 3.9 - 4.9 g/dL [facility] ALP [Catalytic activity/Vol] 97 U/L 38 - 113 U/L [facility] ALT [Catalytic activity/Vol] 14 U/L 10 - 54 U/L [facility] Anion gap [Moles/Vol] 8 mmol/L Low 9 - 18 mmol/L [facility] AST [Catalytic activity/Vol] 16 U/L 14 - 40 U/L [facility] Bilirubin [Mass/Vol] 0.4 mg/dL 0.2 - 1 .3 mg/dL [facility] Calcium [Mass/Vol] 10.1 mg/dL 8.5 - 10. 2 mg/dL [facility] Chloride [Moles/Vol] 104 mmol/L 97 - 10 5 mmol/L [facility] CO2 [Moles/Vol] 26 mmol/L 22 - 30 mmol/L [facility] Creatinine [Mass/Vol] 1.24 mg/dL High 0.73 - 1.22 mg/dL [facility] Estimated Glomerular Filtration Rate 58 mL/min/1.73m Low >=60 mL/min/1.73 m [facility] Glucose [Mass/Vol] 84 mg/dL 74 - 99 mg/dL [facility] Potassium [Moles/Vol] 4.3 mmol/L 3.7 - 5.1 mmol/L [facility] Protein [Mass/Vol] 7.0 g/dL 6.3 - 8.0 g/dL [facility] Sodium [Moles/Vol] 138 mmol/L 136 - 144 mmol/L [facility] Urea nitrogen [Mass/Vol] 18 mg/dL 9 - 24 mg/dL [facility] FERRITIN BLDon 12-06-2022 Ferritin [Mass/Vol] 28.5 ng/mL Low 30.3 - 565.7 ng/mL [facility] Iron and Iron binding capaci ty panelon 12-06-2022 Iron [Mass/Vol] 39 ug/dL Low 41 - 186 ug/dL [facility] [facility] Iron binding capacity [Mass/Vol] 381 ug/dL 232 - 386 ug/dL [facility] Iron/TIBC [Molar ratio] 10.2 % Low 15.0 - 57.0 % [facility] PSA/PROSTSPECAG SCRNon 12-06 Prostate specific Ag [Mass/Vol] 1.90 ng/mL <2.60 ng/mL [facility] TSH BLDon 12-06-2022 TSH Qn 1.980 m[IU]/L 0.270 - 4.200 mIU/L [facility] VITAMIN B12 BLOODon 12-07-19 Cobalamin (Vitamin B12) [Mass/Vol] 911 pg/mL 232 - 1,245 pg/mL [facility] VITAMIN D 25 HYDROXYon 12-06 25-hydroxyvitamin D3 [Mass/Vol] 57.5 ng/mL 31.0 - 80.0 ng/mL [facility] CBC panel Auto (Bld)on 06-18 Erythrocyte distribution width (RBC) [Ratio] 14.5 % 11.5 - 15.0 % [facility] Hematocrit (Bld) [Volume fraction] 29.4 % Low 39.0 - 51.0 % [facility] Hemoglobin (Bld) [Mass/Vol] 10.1 g/dL Low 13.0 - 17.0 g/dL [facility] MCH (RBC) [Entitic mass] 30.6 pg 26.0 - 34.0 pg [facility] MCHC (RBC) [Mass/Vol] 34.4 g/dL 30.5 - 36.0 g/dL [facility] MCV (RBC) [Entitic vol] 89.1 fL 80.0 - 100.0 fL [facility] Nucleated RBC (Bld) [#/Vol] 0.02 10*3/uL High <0.01 k/uL [facility] Platelet mean volume (Bld) [Entitic vol] 10.3 fL 9.0 - 12.7 fL [facility] Platelets (Bld) [#/Vol] 168 10*3/uL 150 - 400 k/uL [facility] RBC (Bld) [#/Vol] 3.30 10*6/uL Low 4.20 - 6.0 0 m/uL [facility] WBC (Bld) [#/Vol] 9.59 10*3/uL 3.70 - 11.00 k/uL [facility] Absolute lymphocyte counton 06-15-2022 Lymphocytes Auto (Unsp spec) [#/Vol] 1.01 10*3/uL 0.83-4.[address] [facility] Work Phone: Basophil percentageon 2021 Basophils/100 WBC (Bld) 0.2 % 0-1 [facility] Work Phone: Eosinophils/100 WBC (Bld) 0.9 % 0-[address] [facility] Work Phone: Neutrophils (Bld) [#/Vol] 6.1 10*3/uL 2.0-7.[address] [facility] Work Phone: Neutrophils/100 WBC (Bld) 75.6 % 47-[address] [facility] Work Phone: WBC (Bld) [#/Vol] 8.1 10*3/uL 4.4-11.0 [facility] Work Phone: Chloride [Moles/Vol] 111 mmol/L 98-107 [facility] Work Phone: Glucose [Mass/Vol] 123 mg/dL 74-106 [facility] Work Phone: Comment on above: Fasting Glucose resu lt from 100 to 125 mg/dL suggests IMPAIRED HOMEOSTASIS per A.D.A. criteria. Potassium [Moles/Vol] 3.5 mmol/L 3.5-5.1 [facility] Work Phone: Sodium [Moles/Vol] 141 mmol/L 136-145 [facility] Work Phone: [phone] Blood erythrocytes count (nu mber/volume)on 06-15-2022 RBC (Bld) [#/Vol] 3.03 10*6/uL 4.6-6.2 [facility] Work [facility]: Blood hemoglobin measurement (mass/volume)on 06-15-2022 Hemoglobin (Bld) [Mass/Vol] 9.0 g/dL 13.0-16.[address] [facility] Work Phone: Blood lymphocytes/100 leukoc yteson 06-15-2022 Lymphocytes/100 WBC (Bld) 12.4 % 19-[address] [facility] Work Phone: Blood monocytes/100 leukocyt eson 06-15-2022 Monocytes/100 WBC (Bld) 10.3 % 0-10 [facility] Work Phone: Blood platelet mean volumeon 06-15-2022 Platelet mean volume (Bld) [Entitic vol] 9.2 fL 6.2-12.[address] [facility] Work Phone: Determination of erythrocyte mean corpuscular volume (MCV)on 06-15-2022 MCV (RBC) [Entitic vol] 88.1 fL 80-94 [facility] Work Phone: Hematocrit Auto (Bld) [Volum e fraction]on 06-15-2022 Hematocrit (Bld) [Volume fraction] 26.7 % 40-[address] [facility] Work Phone: Laboratory - Chemistry and C hemistry - challengeon 06-15-2022 CO2 [Moles/Vol] 26.0 mmol/L 21.0-32.[address] [facility] Work Phone: Urea nitrogen/Creatinine [Mass ratio] 38.5 mg/mg 10-[address] [facility] Work Phone: Laboratory - Hematology and Cell countson 06-15-2022 Erythrocyte distribution width (RBC) [Entitic vol] 44.9 fL 35.1-43.[address] [facility] Work Phone: Erythrocyte distribution width (RBC) [Ratio] 14.1 % 11.6-14.[address] [facility] Work Phone: Immature granulocytes/100 WBC (Bld) 0.600 % 0.0-0.[address] [facility] Work Phone: Comment on above: IG% - Immature Granu locytes (promyelocytes, myelocytes and metamyelocytes) > 1% indicates that a LEFT SHIFT is Present. MCH (RBC) [Entitic mass] 29.7 pg 27.0-32.[address] [facility] Work Phone: Nucleated RBC/100 WBC (Bld) [Ratio] 0 % 0-[address] [facility] Work Phone: MCHC Auto (RBC) [Mass/Vol]on 06-15-2022 MCHC (RBC) [Mass/Vol] 33.7 g/dL 32-36 [facility] Work Phone: No Panel Informationon 06-15 Estimated Creatinine Clearance Calc 46.34 ml/min [facility] Work Phone: Estimated GFR (MDRD) Amer 83 mL/min >[address] [facility] Work Phone: Comment on above: GFR Calc Estimated GFR (MDRD) Non-Af Amer 69 mL/min >[address] [facility] Work Phone: Comment on above: Non- GFR Calc Platelets bldon 06-15-2022 Platelets (Bld) [#/Vol] 109 10*3/uL 150-[address] [facility] Work Phone: Serum or plasma calcium kimmie urement (mass/volume)on 06-15-2022 Calcium [Mass/Vol] 8.5 mg/dL 8.5-10.1 [facility] Work Phone: Serum or plasma creatinine m easurement (mass/volume)on 06-15-2022 Creatinine [Mass/Vol] 1.09 mg/dL 0.70-1.30 [facility] Work Phone: Comment on above: The validity of the calculated GFR & GFRAA in patients over 70 years has not been determined. Clinical correlation is essential. Serum or plasma urea nitroge n measurement (mass/volume)on 06-15-2022 Urea nitrogen [Mass/Vol] 42 mg/dL 7-[address] [facility] Work Phone: Thin prep Papanicolaou smear with manual screeningon 06-15-2022 Thin prep Papanicolaou smear with manual screening 4 5-[address] [facility] Work Phone: Basophil percentageon 2021 Basophil percentage 2.2 mg/dL 2.5-4.9 [facility] Work Phone: No Panel Informationon 06-14 Thyroid Stimulating Hormone (TSH) 0.56 uIU/mL 0.358-3.[address] [facility] Work Phone: Review by pathologiston 05-26 Pathologist review Xu (Unsp spec) [Interp] Reviewed [facility] Work Phone: Comment on above: Previous reported re sult: Candace jackson Edited by: BAIRON on 06/14/22:1324Neutrophilic leukocytosis.Normocytic anemia.Clinical correlation suggested.Devon Hodgson D.O. 06/14/22 AMENDED REPORT 06/14/22 1324 PATH REV previously reported as: Candace jackson Absolute lymphocyte counton 06-13-2022 Lymphocytes Auto (Unsp spec) [#/Vol] 1.16 10*3/uL 0.83-4.[address] [facility] Work Phone: Basophil percentageon 2021 Basophil percentage 0 SEEN /hpf 0-5 [facility] Work Phone: [phone] Basophils/100 WBC (Bld) 0.1 % 0-1 [facility] Work Phone: [phone] Bilirubin [Mass/Vol] 1.00 mg/dL 0.20-1.00 [facility] Work Phone: [phone] Comment on above: For patients on eltr ombopag therapy, use of Dimension [place] TBIL is not recommended. Chloride [Moles/Vol] 98 mmol/L 98-107 [facility] Work Phone: Eosinophils/100 WBC (Bld) 0.0 % 0-[address] [facility] Work Phone: Glucose [Mass/Vol] 178 mg/dL 74-106 [facility] Work Phone: Comment on above: Fasting Glucose resu lt greater than or equal to 126 mg/dL suggests DIABETES MELLITUS per A.D.A. criteria. Neutrophils (Bld) [#/Vol] 14.4 10*3/uL 2.0-7.[address] [facility] Work Phone: Neutrophils/100 WBC (Bld) 85.3 % 47-[address] [facility] Work Phone: Potassium [Moles/Vol] 4.5 mmol/L 3.5-5.1 [facility] Work Phone: Comment on above: Moderate Hemolysis, Result may be falsely increased. Protein [Mass/Vol] 7.4 g/dL 6.4-8.2 [facility] Work Phone: Sodium [Moles/Vol] 136 mmol/L 136-145 [facility] Work Phone: WBC (Bld) [#/Vol] 16.9 10*3/uL 4.4-11.0 [facility] Work Phone: Bilirubin Test strip Ql (U)o n 06-13-2022 Bilirubin Ql (U) Negative Negative [facility] Work Phone: Blood erythrocytes count (nu mber/volume)on 06-13-2022 RBC (Bld) [#/Vol] 4.89 10*6/uL 4.6-6.2 [facility] Work Phone: Blood hemoglobin measurement (mass/volume)on 06-13-2022 Hemoglobin (Bld) [Mass/Vol] 14.5 g/dL 13.0-16.[address] [facility] Work Phone: Blood lymphocytes/100 leukoc yteson 06-13-2022 Lymphocytes/100 WBC (Bld) 6.9 % 19-[address] [facility] Work Phone: Blood monocytes/100 leukocyt eson 06-13-2022 Monocytes/100 WBC (Bld) 7.2 % 0-10 [facility] Work Phone: Blood platelet mean volumeon 06-13-2022 Platelet mean volume (Bld) [Entitic vol] 9.3 fL 6.2-12.[address] [facility] Work Phone: Determination of erythrocyte mean corpuscular volume (MCV)on 06-13-2022 MCV (RBC) [Entitic vol] 87.1 fL 80-94 [facility] Work Phone: Hematocrit Auto (Bld) [Volum e fraction]on 06-13-2022 Hematocrit (Bld) [Volume fraction] 42.6 % 40-[address] [facility] Work Phone: INR in Blood by Coagulation assayon 06-13-2022 INR Coag (Bld) [Relative time] 1.2 {INR} [facility] Work Phone: Ketones Test strip Ql (U)on 06-13-2022 Ketones Ql (U) 15 mg/dl Negative [facility] Work Phone: Laboratory - Chemistry and C hemistry - challengeon 06-13-2022 ALP [Catalytic activity/Vol] 88 U/L 45-[address] [facility] Work Phone: ALT [Catalytic activity/Vol] 18 U/L 16-[address] [facility] Work Phone: [phone] CO2 [Moles/Vol] 29.0 mmol/L 21.0-32.[address] [facility] Work Phone: Globulin (S) [Mass/Vol] 3.6 g/dL 2.2-4.2 [facility] Work Phone: [phone] Lipase [Catalytic activity/Vol] 46 U/L 73-[address] [facility] Work Phone: Magnesium [Mass/Vol] 2.2 mg/dL 1.6-2.6 [facility] Work Phone: Comment on above: Moderate Hemolysis, Result may be falsely increased. Urea nitrogen/Creatinine [Mass ratio] 30.3 mg/mg 06-[address] [facility] Work Phone: Laboratory - Coagulationon 1 PT Coag (PPP) [Time] 15.0 s 11.7-14.9 [facility] Work Phone: Laboratory - Hematology and Cell countson 06-13-2022 Erythrocyte distribution width (RBC) [Entitic vol] 44.2 fL 35.1-43.[address] [facility] Work Phone: Erythrocyte distribution width (RBC) [Ratio] 13.9 % 11.6-14.[address] [facility] Work Phone: Immature granulocytes/100 WBC (Bld) 0.500 % 0.0-0.[address] [facility] Work Phone: Comment on above: IG% - Immature Granu locytes (promyelocytes, myelocytes and metamyelocytes) > 1% indicates that a LEFT SHIFT is Present. MCH (RBC) [Entitic mass] 29.7 pg 27.0-32.[address] [facility] Work Phone: Nucleated RBC/100 WBC (Bld) [Ratio] 0 % 0-[address] [facility] Work Phone: MCHC Auto (RBC) [Mass/Vol]on 06-13-2022 MCHC (RBC) [Mass/Vol] 34.0 g/dL 32-36 [facility] Work Phone: Mucus LM Ql (Urine sed)on Mucus Ql (Urine sed) 0 SEEN /hpf [facility] Work Phone: Nitrite Test strip Ql (U)on 06-13-2022 Nitrite Ql (U) Negative Negative [facility] Work Phone: No Panel Informationon 06-13 Estimated Creatinine Clearance Calc 36.09 ml/min [facility] Work Phone: Estimated GFR (MDRD) Amer 60 mL/min >[address] [facility] Work Phone: Comment on above: GFR Calc Estimated GFR (MDRD) Non-Af Amer 49 mL/min >[address] [facility] Work Phone: Comment on above: Non- GFR Calc Platelets bldon 06-13-2022 Platelets (Bld) [#/Vol] 205 10*3/uL 150-[address] [facility] Work Phone: Protein Test strip Ql (U)on 06-13-2022 Protein Ql (U) 30 mg/dl Negative [facility] Work Phone: Serum or plasma albumin kimmie urement (mass/volume)on 06-13-2022 Albumin [Mass/Vol] 3.8 g/dL 3.2-5.0 [facility] Work Phone: Serum or plasma albumin/glob ulin mass ratioon 06-13-2022 Albumin/Globulin [Mass ratio] 1.1 {ratio} 0.9-2.[address] [facility] Work Phone: Serum or plasma calcium kimmie urement (mass/volume)on 06-13-2022 Calcium [Mass/Vol] 9.7 mg/dL 8.5-10.1 [facility] Work Phone: Serum or plasma creatinine m easurement (mass/volume)on 06-13-2022 Creatinine [Mass/Vol] 1.45 mg/dL 0.70-1.30 [facility] Work Phone: Comment on above: The validity of the calculated GFR & GFRAA in patients over 70 years has not been determined. Clinical correlation is essential. Serum or plasma urea nitroge n measurement (mass/volume)on 06-13-2022 Urea nitrogen [Mass/Vol] 44 mg/dL 7-[address] [facility] Work Phone: Squamous epithelial cells de tection in urine sediment by light microscopyon 06-13-2022 Epithelial cells.squamous LM Ql (Urine sed) 0-5 SEEN /hpf 0-[address] [facility] Work Phone: Thin prep Papanicolaou smear with manual screeningon 06-13-2022 Thin prep Papanicolaou smear with manual screening 23 U/L 15-[address] [facility] Work Phone: Comment on above: Moderate Hemolysis, Result may be falsely increased. Thin prep Papanicolaou smear with manual screening 9 5-[address] [facility] Work Phone: Urine blood detectionon --2021 RBC Ql (U) Negative Negative [facility] Work Phone: RBC Ql (U) 0 SEEN /hpf 0-[address] [facility] Work Phone: Urine clarityon 06-13-2022 Clarity (U) Clear Clear [facility] Work Phone: Urine color determinationon 06-13-2022 Color (U) Yellow Yellow [facility] Work Phone: Urine glucose detectionon Glucose Ql (U) 50 mg/dl Normal [facility] Work Phone: Urine leukocyte esterase det ection by dipstickon 06-13-2022 Leukocyte esterase Test strip Ql (U) Negative Negative [facility] Work Phone: Urine pHon 06-13-2022 pH (U) 8.0 [pH] 5.0 - 8.[address] [facility] Work Phone: Urine sediment bacteria coun t by microscopy (number/high power field)on 06-13-2022 Bacteria LM.HPF (Urine sed) [#/Area] 1 /[HPF] None Seen [facility] Work Phone: Urine specific gravity measu rementon 06-13-2022 Specific gravity (U) [Rel density] 1.010 1.002-1.[address] [facility] Work Phone: Urobilinogen Auto test strip Ql (U)on 06-13-2022 Urobilinogen Ql (U) Normal mg/dl Normal [facility] Work Phone: ANES POSTPROC EVALon 022 ANES POSTPROC EVAL HNO ID: [id number] Author: Fernando Salinas MD Service: Anesthesiology Author Type: Anesthesiologist Type: Anesthesia Postprocedure Evaluation Filed: 06/12/2022 1:06 PM Note Text: POST ANESTHESIA EVALUATION NOTE : 1940 Procedure Summary Date: 06/12/22 Room / Location: [place] [address] [facility] An[facility]hesia Start: 1140 Anesthesia Stop: 1300 [...] June 12, 2022 TIME: 1:06 PM CSN: [id number] [facility] ANES PRE-OPon 06-12-2022 ANES PRE-OP HNO ID: [id number] Author: Fernando Salinas MD Service: Anesthesiology Author [...] June 12, 2022 TIME: 10:26 AM CSN: [id number] [facility] HISTORY PHYSICALon HISTORY PHYSICAL HNO ID: [id number] Author: Florencio Tesfaye MD Service: General Surgery Author Type: Physician Type: HANDP Filed: 06/12/2022 11:11 AM Note Text: HISTORY AND PHYSICAL Todd Matamoros 1940 REFERRING PHYSICIAN: Self CHIEF COMPLAINT: Follow Up (Bilateral inguinal hernia) HPI: Tdod is a 82 year old male with [...] Macular degeneration NSTEMI (non-ST elevated myocardial infarction) ([facility]) 10/28/2019 Osteoarthritis of left hip [...] 07/28/07 DIR RPR ANEURYSM ABDOMINAL AORTA 04/20/2011 [facility] EYLEA (AFLIBERCEPT) 2MG INTRAVITREAL INJECTION OD (RIGHT [...] Tobacco Use Smokin (more content not included)... [facility] OPERATIVE NOon 06-12-2022 OPERATIVE NO HNO ID: [id number] Author: Florencio Tesfaye MD Service: General Surgery Author Type: Physician Type: Operative Report Filed: 06/12/2022 12:59 PM Note Text: OPERATIVE/PROCEDURE REPORT LOG ID: [id number] SURGERY/PROCEDURE DATE: 06/12/2022 INCISION/PROCEDURE START TIME: 12:00 PM INCISION CLOSE/PROCEDURE END TIME: 12:49 PM SURGEON(S)/PROCEDURALI ST(S) AND MEDICAL TRANSCRIPTION RADIOLOGY(S): Surgeon(s) and Role: * Florencio Tesfaye MD - Primary Nurse Practitioner: Nuria Banks APRN.SUBMARINE ELEMENT COORDINATOR Physician [employer] Ski Maker: Indy Mosqueda PA-C SURGERY/PROCEDURE(S): Laparoscopic bilateral inguinal [...] the fascia the umbilical port with a jwrvnl-hw-ygnjo stitch of 0 Vicryl. Skin incisions were closed with subcuticular stitches of 4-0 Monocryl. Steri-Strips were applied sterile dressings were applied patient tolerated the procedure well. Nuria Banks CNP was my program support assistant. She assisted with retraction, visualization and [...] DATE: June 12, 2022 TIME: 12:53 PM [facility] Basic metabolic 2000 panelon 05-31-2022 Anion gap [Moles/Vol] 8 mmol/L Low 9 - 18 mmol/L [facility] Calcium [Mass/Vol] 9.2 mg/dL 8.5 - 10. 2 mg/dL [facility] Chloride [Moles/Vol] 104 mmol/L 97 - 10 5 mmol/L [facility] CO2 [Moles/Vol] 24 mmol/L 22 - 30 mmol/L [facility] Creatinine [Mass/Vol] 1.15 mg/dL 0.73 - 1.22 mg/dL [facility] Estimated Glomerular Filtration Rate 63 mL/min/1.73m >=60 mL/min/1.73 m [facility] Glucose [Mass/Vol] 126 mg/dL High 74 - 99 mg/dL [facility] Potassium [Moles/Vol] 4.1 mmol/L 3.7 - 5.1 mmol/L [facility] Sodium [Moles/Vol] 136 mmol/L 136 - 144 mmol/L [facility] Urea nitrogen [Mass/Vol] 25 mg/dL High 9 - 24 mg/dL [facility] CBC W Auto Differential pane l (Bld)on 05-31-2022 Abs Immature Gran <0.10 k/uL [facility] Basophils (Bld) [#/Vol] 0.03 10*3/uL <0.11 k/uL [facility] Basophils/100 WBC (Bld) 0.4 % [facility] Differential cell count method Nom (Bld) Auto [facility] Eosinophils (Bld) [#/Vol] 0.32 10*3/uL <0.46 k/uL [facility] Eosinophils/100 WBC (Bld) 4.6 % [facility] Erythrocyte distribution width (RBC) [Ratio] 13.8 % 11.5 - 15.0 % [facility] Hematocrit (Bld) [Volume fraction] 40.4 % 39.0 - 51.0 % [facility] Hemoglobin (Bld) [Mass/Vol] 14.2 g/dL 13.0 - 17.0 g/dL [facility] Immature Gran % 0.3 % [facility] Lymphocytes (Bld) [#/Vol] 1.58 10*3/uL 1.00 - 4.00 k/uL [facility] Lymphocytes/100 WBC (Bld) 22.9 % [facility] MCH (RBC) [Entitic mass] 30.3 pg 26.0 - 34.0 pg [facility] MCHC (RBC) [Mass/Vol] 35.1 g/dL 30.5 - 36.0 g/dL [facility] MCV (RBC) [Entitic vol] 86.1 fL 80.0 - 100.0 fL [facility] Monocytes (Bld) [#/Vol] 0.64 10*3/uL <0.87 k/uL [facility] Monocytes/100 WBC (Bld) 9.3 % [facility] Neutrophils (Bld) [#/Vol] 4.31 10*3/uL 1.45 - 7.50 k/uL [facility] Neutrophils/100 WBC (Bld) 62.5 % [facility] Nucleated RBC (Bld) [#/Vol] <0.01 k/uL [facility] Nucleated RBC/100 WBC (Bld) [Ratio] 0.0 /100 WBC [facility] Platelet mean volume (Bld) [Entitic vol] 9.2 fL 9.0 - 12.7 fL [facility] Platelets (Bld) [#/Vol] 126 10*3/uL Low 150 - 400 k/uL [facility] RBC (Bld) [#/Vol] 4.69 10*6/uL 4.20 - 6.0 0 m/uL [facility] WBC (Bld) [#/Vol] 6.90 10*3/uL 3.70 - 11.00 k/uL [facility] Basophil percentageon 2021 Creatinine [Mass/Vol] 1.3 mg/dL 0.70-1.30 [facility] Work Phone: Laboratory - Chemistry and C hemistry - challengeon 01-01-2022 GFR/1.73 sq M.predicted among non-blacks MDRD (S/P/Bld) [Vol rate/Area] 54.0000 mL/min/{1.73_m2} >[address] [facility] Work Phone: VL AORTA/IVC/ILIAC/BYPASS GR AFT COMPLETEOrdered By: Shailesh Stone on 06-20-2021 [facility] [place] [facility] ----- Abdominal Aortic Endograft Report Patient DO ShilohB: 1940 Study 06/20/2021 Name: Todd Presley (81yrs) Date: Patient [id number] Age: 81 Account: [id number] ID: Gender: M Loc: BP: Ordering Physician: Shailesh Stone Automatic Lathe Setter: SHERWIN MaharajT Interpreting Physician: Prachi López MD ----- Location: [address] ----- Indications: AAA without rupture. ----- [...] supine position. Images were obtained using a [email or web address] E9 vascular ultrasound machine. The study was [...] + + + (more content not included)... [employer] Work Phone: [place], [facility] Incoming Cardiology Results From [employer] - 06/20/2021 5:22 PM EDT [facility] ----- Abdominal Aortic Endograft Report Patient Shiloh, : 1940 Study 06/20/2021 Name: Todd Presley (yr) Date: Patient [id number] Age: 81 Account: [id number] ID: Gender: M Loc: BP: Ordering Physician: Shailesh Stone Automatic Lathe Setter: Valerie Ulloa RVT Interpreting Physician: Prachi López MD ----- Location: [address] ----- Indications: AAA without rupture. ----- [...] supine position. Images were obtained using a [email or web address] E9 vascular ultrasound machine. The study was [...] ----+ +Left limb+ (more content not included)... [employer] Work Phone: [employer] Phone: VL Aorta Iliac Duplex w/ Te nt [place]ern 06-20-2021 VL Aorta Iliac Duplex w/ Stent Graft Patient Name: TODD MATAMOROS [facility]#: [id number] Ultrasound ACCESSION EXAM DATE/TIME PROCEDURE ORDERING PROVIDER [phone] 06/20/2021 10:18 EDT VL Aorta Iliac Duplex w/ [id number] -SHAILESH STONE Stent Graft CPT code 44468 [id number] Reason For Exam (VL Aorta Iliac Duplex w/ Stent Graft) Presence of other vascular implants and grafts Report [facility] ----- Abdominal Aortic Endograft Report Patient DO ShilohB: 1940 Study 06/20/2021 Name: Todd Presley (81yrs) Date: Patient [id number] Age: 81 Account: [id number] ID: Gender: M Loc: BP: Ordering Physician: Shailesh Stone Automatic Lathe Setter: Valerie Ulloa RVT Interpreting Physician: Prachi López MD ----- Location: [address] ----- Indications: AAA without rupture. ----- [...] supine position. Images were obtained using a [email or web address] E9 vascular ultrasound machine. The study was [...] +Artery + (more content not included)... Normal [employer] [facility] VL Aorta IVC Bypass [place] 06-02-2020 [facility] [place] [facility] ----- Abdominal Aortic Endograft Report Ordering Physician: John Clark MD Automatic Lathe Setter: Mae Brito [facility] Interpreting Physician: Fernando Walker MD ----- Location: [address] ----- Indications: AAA without rupture, history [...] supine position. Images were obtained using a [email or web address] E9 vascular ultrasound machine. ----- Arterial pressure [...] signed by Fernando Walker MD 06/02/2020 14:26 [facility] [place], [place], [facility] Cardiology Results From [employer] - 06/02/2020 2:26 PM EDT [facility] ----- Abdominal Aortic Endograft Report Ordering Physician: John Clark MD Automatic Lathe Setter: SHERWIN JayT Interpreting Physician: Fernando Walker MD ----- Location: [address] ----- Indications: AAA without rupture, history [...] supine position. Images were obtained using a [email or web address] E9 vascular ultrasound machine. ----- Arterial pressure [...] signed by Fernando Walker MD 06/02/2020 14:26 [place], [place] Clinical Summary: HMSPatient IDon 05-12-2018 OOP Invalid Interpretation Code [facility] Work Phone: Office Visit: Follow-up by Mann peng: 1on 05-12-2018 NEGATED: Highlighted rowProtein mass conc Done Invalid Interpretation Code [facility] Work Phone: Lab Report: Lipid Profileon 08-12-2017 Cholesterol 112 mg/dL Invalid Interpretation Code 200 [facility] Work Phone: HDL Cholesterol 35 mg/dL Low [facility] Work Phone: LDL Cholesterol [...] Albumin 3.6 g/dL Invalid Interpretation Code 3.4-5.0 [employer] Work Phone: [phone] Alkaline phosphatase (ALP) 145 U/L High 45-117 [employer] Work Phone: [phone] Aspartate aminotransferase (AST) 15 U/L Invalid Interpretation Code 15-37 [employer] Work Phone: [phone] Bilirubin (direct) 0.14 mg/dL Invalid Interpretation Code 0.00-0.30 [employer] [employer] Work Phone: [phone] Bilirubin (total) 0.50 mg/dL Invalid Interpretation Code 0.20-1.00 [employer] Work Phone: [phone] Globulin 4.4 g/dL High 2.2-4.2 [employer] Work Phone: [phone] Protein 8.0 g/dL Invalid Interpretation Code 6.4-8.2 [employer] Work Phone: [phone] Office Visiton 02-03-2017 Documentation of current medications (procedure) Done Invalid Interpretation Code [employer] Work Phone: [phone] Fall risk assessment No Invalid Interpretation Code [employer] Work Phone: [phone] Protein mass conc Done [employer] Work Phone: [phone] Chart Maintenanceon 02-02-20 17 Left ventricular Ejection fraction 65 % Invalid Interpretation Code [employer] Phone: [phone] Lab Report: Lipid Profileon 01-31-2017 Cholesterol 127 mg/dL Invalid Interpretation Code 200 [employer] Work Phone: [phone] HDL Cholesterol 40 mg/dL Invalid Interpretation Code [employer] Work Phone: [phone] LDL Cholesterol 54 mg/dL Invalid Interpretation Code 0-130 [employer] Work Phone: [phone] Triglyceride 166 mg/dL Invalid Interpretation Code [employer] Work Phone: [phone] very low density lipoproteins 33 mg/dL Invalid Interpretation Code 5-40 [employer] Work Phone: [phone] Lab Report: Liver Profileon 01-31-2017 Alanine aminotransferase (ALT) 26 U/L Invalid Interpretation Code 12-78 [employer] Work Phone: [phone] Albumin 3.8 g/dL Invalid Interpretation Code 3.4-5.0 [facility] Work Phone: [phone] Alkaline phosphatase (ALP) 132 U/L High 45-117 [facility] Work Phone: [phone] ALP enzyme act/vol (Bld) 132 U/L High 45-117 [facility] Work Phone: [phone] Aspartate aminotransferase (AST) 16 U/L Invalid Interpretation Code 15-37 [facility] Work Phone: [phone] Bilirubin (direct) 0.19 mg/dL Invalid Interpretation Code 0.00-0.30 [facility] Work Phone: [phone] Bilirubin (total) 0.70 mg/dL Invalid Interpretation Code 0.20-1.00 [facility] Work Phone: [phone] Globulin 3.5 g/dL Invalid Interpretation Code 2.3-3.5 [facility] Work Phone: [phone] Globulin mass conc (S) 3.5 g/dL 2.3-3.5 [facility] Work Phone: [phone] Protein 7.3 g/dL Invalid Interpretation Code 6.4-8.2 [facility] Work Phone: [phone] Office Visiton 07-30-2016 Documentation of current medications (procedure) Done Invalid Interpretation Code [facility] Work Phone: [phone] Protein mass conc Done [facility] Work Phone: [phone] Tobacco smoking status ARIS Tobacco smoking status ARIS Invalid Interpretation Code [facility] Work Phone: [phone] Tobacco smoking status [facility] Former smoker [facility] Work Phone: [phone] Tobacco use [facility] Former smoker Invalid Interpretation Code [facility] Work Phone: [phone] Lab Report: Lipid Profileon 07-01-2016 Cholesterol in HDL mass conc 31 mg/dL Low [facility] Work Phone: [phone] Cholesterol in LDL mass conc 29 mg/dL 0-130 [facility] Work Phone: [phone] Cholesterol mass conc 106 mg/dL [address] [facility] Work Phone: [phone] Lipoprotein.pre-beta mass conc 46 mg/dL High 5-40 [facility] Work Phone: [phone] Triglyceride mass conc 232 mg/dL High [facility] Work Phone: [phone] Lab Report: Liver Profileon 07-01-2016 Albumin mass conc 4.0 g/dL 3.4-5.0 [facility] Work Phone: [phone] ALP enzyme act/vol (Bld) 137 U/L High 50-136 [facility] Work Phone: [phone] ALT enzyme act/vol 25 U/L 12-78 [facility] Work Phone: [phone] AST enzyme act/vol 23 U/L 15-37 [facility] Work Phone: [phone] Bilirubin mass conc 0.70 mg/dL 0.20-1.00 [facility] Work Phone: [phone] Bilirubin.direct mass conc 0.15 mg/dL 0.00-0.30 [facility] Work Phone: [phone] Globulin mass conc (S) 3.3 g/dL 2.3-3.5 [facility] Work Phone: [phone] Protein mass conc 7.3 g/dL 6.4-8.2 [facility] Work Phone: [phone] Office Visiton 01-02-2016 Dietary management education, guidance, and counseling (procedure) yes Invalid Interpretation Code [facility] Work Phone: [phone] Office Visiton 07-03-2015 cardiac risk group C Invalid Interpretation Code [facility] Work Phone: [phone] General cardiovascular disease 10Y risk [#] Dahinda.D'Agostino N/A Invalid Interpretation Code [facility] Work Phone: [phone] Protein mass conc yes [facility] Work Phone: [phone] Smoking cessation education (procedure) yes Invalid Interpretation Code [facility] Work Phone: [phone] Lab Report: LIVERon 06-14-20 14 ALK 139 U/L High 50-136 [facility] Work Phone: [phone] GE use only - for [employer] import when terms are not otherwise specified 139 U/L High 50-136 [facility] [employer] Work Phone: [phone] Replaced Document: Harjit Orr 05-24-2013 EKG QRS axis 28 deg [facility] Work Phone: [phone] electrocardiogram interpretation Sinus Bradycardia WITHIN NORMAL LIMITS Invalid Interpretation Code [facility] Work Phone: [phone] Interpretation Sinus Bradycardia WITHIN NORMAL LIMITS [facility] Work Phone: [phone] P Dewitt 55 deg [facility] Work Phone: [phone] P wave axis, electrocardiogram 55 deg Invalid Interpretation Code [facility] [employer] Work Phone: [phone] IN Interval 138 ms [facility] [employer] Work Phone: [phone] IN interval, electrocardiogram 138 ms Invalid Interpretation Code [facility] [employer] Work Phone: [phone] Pulse (Heart Rate) 442 ms Invalid Interpretation Code [facility] [employer] Work Phone: [phone] Pulse (Heart Rate) 57 /min Invalid Interpretation Code [facility] Work Phone: [phone] QRS axis, electrocardiogram 28 deg Invalid Interpretation Code [facility] [employer] Work Phone: [phone] QRS Duration 98 ms [facility] [employer] Work Phone: [phone] QRS duration, electrocardiogram 98 ms Invalid Interpretation Code [facility] [employer] Work Phone: [phone] QT Interval new path ms [facility] [employer] Work Phone: [phone] QT interval, electrocardiogram new path ms Invalid Interpretation Code [facility] [employer] Work Phone: [phone] T Dewitt 79 deg [facility] [employer] Work Phone: [phone] T wave axis, electrocardiogram 79 deg Invalid Interpretation Code [facility] [employer] Work Phone: [phone] Hemoglobin.gastrointestinal Ql ([place]) Gastric Occult Blood Positive [facility] Work Phone: Vital Signs Date Time Vital Sign Value Performing Clinician Facility 03-22-2025 14:16-0400 Body height 167.[address] Robel Onofre DO Work Phone: [facility] 03-22-2025 14:16-0400 Body mass index (BMI) [Ratio] 29.9 kg/m2 Dr. Robel Onofre DO Work Phone: [phone] [place] [address] 03-22-2025 14:16-0400 Body weight 84.[address] Robel Onofre DO Work Phone: [phone] [place] [address] 03-22-2025 14:16-0400 Diastolic blood pressure 73 mm[Hg] Dr. Robel Onofre DO Work Phone: [phone])[phone] [place] [address] 03-22-2025 14:16-0400 Heart rate 57 /min Dr. Robel Onofre DO Work Phone: [phone](483)[phone] [place] [address] 03-22-2025 14:16-0400 Respiratory rate 16 /min Dr. Robel Onofre DO Work Phone: [phone] [place] [address] 03-22-2025 14:16-0400 Systolic blood pressure 149 mm[Hg] Dr. Robel Onofre DO Work Phone: 7(773)[phone] [place] [address] 12-27-2024 10:58-0400 Body mass index (BMI) [Ratio] 28.23 kg/m2 Robel Onofre DO Work Phone: [facility] 12-27-2024 10:58-0400 Body temperature 98.6 [degF] Robel Onofre DO Work Phone: [facility] 12-27-2024 10:58-0400 Body weight 82.56 kg Robel Hernandezon DO Work Phone: [facility] 12-27-2024 10:58-0400 Diastolic blood pressure 70 mm[Hg] Robel Hernandezon DO Work Phone: [facility] 12-27-2024 10:58-0400 Heart rate 60 /min Robel Hernandezon DO Work Phone: [facility] 12-27-2024 10:58-0400 Respiratory rate 20 /min Robel Onofre DO Work Phone: [facility] 12-27-2024 10:58-0400 Systolic blood pressure 110 mm[Hg] Robel Onofre DO Work Phone: [facility] 12-14-2024 14:57-0400 Body temperature 97.4 [degF] Dr. Robel Onofre DO Work Phone: [facility] 12-14-2024 14:57-0400 Diastolic blood pressure 92 mm[Hg] Dr. Robel Onofre DO Work Phone: [facility] 12-14-2024 14:57-0400 Heart rate 52 /min Dr. Robel Onofre DO Work Phone: [facility] 12-14-2024 14:57-0400 Respiratory rate 18 /min Dr. Robel Onorfe DO Work Phone: [facility] 12-14-2024 14:57-0400 SaO2% (BldA) [Mass fraction] 97 % Dr. Robel Onofre DO Work Phone: [facility] 12-14-2024 14:57-0400 Systolic blood pressure 174 mm[Hg] Dr. Robel Onofre DO Work Phone: [phone])135-182260 [place] [address] 12-14-2024 12:40-0400 Body height 167.[address] Robel Onofre DO Work Phone: [facility] 12-14-2024 11:45-0400 Body mass index (BMI) [Ratio] 28.76 kg/m2 Asha Hernandez APRN.SUBMARINE ELEMENT COORDINATOR Work Phone: [facility] 12-14-2024 11:45-0400 Body weight 84.1 kg Asha Hernandez [employer] FIELD ENGINEER.SUBMARINE ELEMENT COORDINATOR Work Phone: [facility] 12-14-2024 11:45-0400 Diastolic blood pressure 84 mm[Hg] Asha Hernandez [employer] FIELD ENGINEER.SUBMARINE ELEMENT COORDINATOR Work Phone: [facility] 12-14-2024 11:45-0400 Heart rate 54 /min Asha Hernandez APRN.SUBMARINE ELEMENT COORDINATOR Work Phone: [facility] 12-14-2024 11:45-0400 Respiratory rate 12 /min Asha Hernandez [employer]SIDE [employer] FIELD ENGINEER.SUBMARINE ELEMENT COORDINATOR Work Phone: [facility] 12-14-2024 11:45-0400 SaO2% (BldA) [Mass fraction] 98 % Asha AlvaradoAnamaria [employer]SIDE [employer]ANT FIELD ENGINEER.SUBMARINE ELEMENT COORDINATOR Work Phone: [facility] 12-14-2024 11:45-0400 Systolic blood pressure 152 mm[Hg] Asha Hernandez [employer]SIDE [employer] FIELD ENGINEER.SUBMARINE ELEMENT COORDINATOR Work Phone: [facility] 06-30-2024 10:29-0500 Body mass index (BMI) [Ratio] 28.85 kg/m2 Robel Onofre DO Work Phone: [facility] 06-30-2024 10:29-0500 Body temperature 97.81 [degF] Robel Onofre DO Work Phone: [facility] 06-30-2024 10:29-0500 Body weight 84.37 kg Robel Onofre DO Work Phone: [facility] 06-30-2024 10:29-0500 Diastolic blood pressure 80 mm[Hg] Robel Onofre DO Work Phone: [facility] 06-30-2024 10:29-0500 Heart rate 64 /min Robel Onofre DO Work Phone: [facility] 06-30-2024 10:29-0500 Respiratory rate 20 /min Robel Onofre DO Work Phone: [facility] 06-30-2024 10:29-0500 Systolic blood pressure 140 mm[Hg] Robel Onofre DO Work Phone: [facility] 03-10-2024 12:21-0400 Body mass index (BMI) [Ratio] 27.74 kg/m2 Bessie Ambrocio [employer]SIDE [employer] FIELD ENGINEER.SUBMARINE ELEMENT COORDINATOR Work Phone: [facility] 03-10-2024 12:21-0400 Body weight 81.1 kg Bessie Ambrocio [employer]SIDE [employer] FIELD ENGINEER.SUBMARINE ELEMENT COORDINATOR Work Phone: [facility] 03-10-2024 12:21-0400 Diastolic blood pressure 78 mm[Hg] Bessie Cristóbal [employer] FIELD ENGINEER.SUBMARINE ELEMENT COORDINATOR Work Phone: [facility] 03-10-2024 12:21-0400 Heart rate 55 /min Bessie Cristóbal [employer]SIDE [employer] FIELD ENGINEER.SUBMARINE ELEMENT COORDINATOR Work Phone: [facility] 03-10-2024 12:21-0400 Respiratory rate 18 /min Bessie Cristóbal [employer]IDE [employer] FIELD ENGINEER.SUBMARINE ELEMENT COORDINATOR Work Phone: [facility] 03-10-2024 12:21-0400 SaO2% (BldA) [Mass fraction] 96 % Bessie Cristóbal [employer]SIDE [employer] FIELD ENGINEER.SUBMARINE ELEMENT COORDINATOR Work Phone: [facility] 03-10-2024 12:21-0400 Systolic blood pressure 136 mm[Hg] Bessie Cristóbal [employer]SIDE [employer]ANT FIELD ENGINEER.SUBMARINE ELEMENT COORDINATOR Work Phone: [facility] 02-04-2024 12:48-0400 Body mass index (BMI) [Ratio] 27.67 kg/m2 Bessie Cristóbal [employer] FIELD ENGINEER.SUBMARINE ELEMENT COORDINATOR Work Phone: [facility] 02-04-2024 12:48-0400 Body weight 80.92 kg Bessie Cristóbal [employer]SIDE [employer]ANT FIELD ENGINEER.SUBMARINE ELEMENT COORDINATOR Work Phone: [facility] 02-04-2024 12:48-0400 Diastolic blood pressure 80 mm[Hg] Bessie Cristóbal [employer]SIDE [employer]ANT FIELD ENGINEER.SUBMARINE ELEMENT COORDINATOR Work Phone: [facility] 02-04-2024 12:48-0400 Heart rate 52 /min Bessie Cristóbal [employer]SIDE [employer]ANT FIELD ENGINEER.SUBMARINE ELEMENT COORDINATOR Work Phone: [facility] 02-04-2024 12:48-0400 Respiratory rate 20 /min Bessie Cristóbal [employer]SIDE [employer] FIELD ENGINEER.SUBMARINE ELEMENT COORDINATOR Work Phone: [facility] 02-04-2024 12:48-0400 SaO2% (BldA) [Mass fraction] 96 % Bessie Cristóbal [employer]SIDE [employer] FIELD ENGINEER.SUBMARINE ELEMENT COORDINATOR Work Phone: [facility] 02-04-2024 12:48-0400 Systolic blood pressure 122 mm[Hg] Bessie Ambrocio APRNBeataSUBMARINE ELEMENT COORDINATOR Work Phone: [facility] 12-22-2023 12:12-0400 Body mass index (BMI) [Ratio] 27.92 kg/m2 Robel Onofre DO Work Phone: [facility] 12-22-2023 12:12-0400 Body temperature 96.69 [degF] Robel Onofre DO Work Phone: [facility] 12-22-2023 12:12-0400 Body weight 81.65 kg Robel Onofre DO Work Phone: [facility] 12-22-2023 12:12-0400 Diastolic blood pressure 70 mm[Hg] Robel Onofre DO Work Phone: [facility] 12-22-2023 12:12-0400 Heart rate 64 /min Robel Onofre DO Work Phone: [facility] 12-22-2023 12:12-0400 Respiratory rate 20 /min Robel Onofre DO Work Phone: [facility] 12-22-2023 12:12-0400 Systolic blood pressure 120 mm[Hg] Robel Onofre DO Work Phone: [facility] 06-13-2023 13:19-0400 Body height 171 cm Robel Onofre DO Work Phone: [facility] 06-13-2023 13:19-0400 Body temperature 96.69 [degF] Robel Onofre DO Work Phone: [facility] 06-13-2023 13:190400 Body weight 83.92 kg Robel Onofre DO Work Phone: [facility] 06-13-2023 13:19-0400 Diastolic blood pressure 70 mm[Hg] Robel Onofre DO Work Phone: [facility] 06-13-2023 13:19-0400 Heart rate 56 /min Robel Onofre DO Work Phone: [facility] 06-13-2023 13:19-0400 Respiratory rate 24 /min Robel Onofre DO Work Phone: [facility] 06-13-2023 13:19-0400 Systolic blood pressure 136 mm[Hg] Robel Onofre DO Work Phone: [facility] 12-06-2022 09:36-0400 Body temperature 97.7 [degF] Robel Onofre DO Work Phone: [facility] 12-06-2022 09:36-0400 Body weight 82.56 kg Robel Onofre DO Work Phone: [facility] 12-06-2022 09:36-0400 Diastolic blood pressure 60 mm[Hg] Robel Onofre DO Work Phone: [facility] 12-06-2022 09:36-0400 Heart rate 60 /min Robel Onofre DO Work Phone: [facility] 12-06-2022 09:36-0400 Respiratory rate 20 /min Robel Onofre DO Work Phone: [facility] 12-06-2022 09:36-0400 Systolic blood pressure 120 mm[Hg] Robel Onofre DO Work Phone: [facility] 07-03-2022 07:49-0500 Body weight 81.56 kg Bessie Cristóbal OUTSIDE PLANT FIELD ENGINEER.SUBMARINE ELEMENT COORDINATOR Work Phone: [facility] 07-03-2022 07:49-0500 Diastolic blood pressure 80 mm[Hg] Bessie Cristóbal [employer]SIDE PLANT FIELD ENGINEER.SUBMARINE ELEMENT COORDINATOR Work Phone: [facility] 07-03-2022 07:49-0500 Heart rate 55 /min Bessie Cristóbal [employer]SIDE [employer]ANT FIELD ENGINEER.SUBMARINE ELEMENT COORDINATOR Work Phone: [facility] 07-03-2022 07:49-0500 SaO2% (BldA) [Mass fraction] 98 % Bessie Cristóbal [employer]SIDE [employer]ANT FIELD ENGINEER.SUBMARINE ELEMENT COORDINATOR Work Phone: [facility] 07-03-2022 07:49-0500 Systolic blood pressure 128 mm[Hg] Bessie Cristóbal [employer]SIDE [employer]ANT FIELD ENGINEER.SUBMARINE ELEMENT COORDINATOR Work Phone: [facility] 06-15-2022 12:48-0400 Body temperature 98.5 [degF] Dr. Robel Onofre Work Phone: [facility] Work Phone: 06-15-2022 12:48-0400 Diastolic blood pressure 48 mm[Hg] Dr. Robel Onofre Work Phone: [facility] Work Phone: 06-15-2022 12:48-0400 Heart rate 63 /min Dr. Robel Onofre Work Phone: [facility] Work Phone: 06-15-2022 12:48-0400 Respiratory rate 18 /min Dr. Robel Onofre Work Phone: [facility] Work Phone: 06-15-2022 12:48-0400 SaO2% (BldA) [Mass fraction] 94 % Dr. Robel Onofre Work Phone: [facility] Work Phone: 06-15-2022 12:48-0400 Systolic blood pressure 111 mm[Hg] Dr. Robel Onofre Work Phone: [facility] Work Phone: 06-15-2022 03:54-0400 Body weight 82.[address] Robel Onofre Work Phone: [facility] Work Phone: 06-14-2022 15:08-0400 Body height [address] Robel Onofre Work Phone: [facility] Work Phone: 06-14-2022 15:08-0400 Body mass index (BMI) [Ratio] 27.2 kg/m2 Dr. Robel Onofre Work Phone: [facility] Work Phone: 06-13-2022 19:28-0400 Body temperature 99.1 [degF] Dr. Robel Onofre Work Phone: [facility] Work Phone: 06-13-2022 19:28-0400 Diastolic blood pressure 70 mm[Hg] Dr. Robel Onofre Work Phone: [facility] Work Phone: 06-13-2022 19:28-0400 Heart rate 80 /min Dr. Robel Onofre Work Phone: [facility] Work Phone: 06-13-2022 19:28-0400 Respiratory rate 20 /min Dr. Robel Onofre Work Phone: [facility] Work Phone: 06-13-2022 19:28-0400 SaO2% (BldA) [Mass fraction] 95 % Dr. Robel Onofre Work Phone: [facility] Work Phone: 06-13-2022 19:28-0400 Systolic blood pressure 152 mm[Hg] Dr. Robel Onofre Work Phone: [facility] Work Phone: 06-13-2022 16:28-0400 Body height 170.[address] Robel Onofre Work Phone: [facility] Work Phone: 06-13-2022 16:28-0400 Body mass index (BMI) [Ratio] 28.3 kg/m2 Dr. Robel Onofre Work Phone: [facility] Work Phone: 06-13-2022 16:28-0400 Body weight 82.[address] Robel Onofre Work Phone: [facility] Work Phone: 06-12-2022 13:30-0400 Diastolic blood pressure 67 mm[Hg] Florencio Tesfaye MD Work Phone: [facility] 10-19-2022 13:30-0400 Heart rate 49 /min Florencio Tesfaye MD Work Phone: [facility] 06-12-2022 13:30-0400 Respiratory rate 13 /min Florencio Tesfaye MD Work Phone: [facility] 06-12-2022 13:30-0400 SaO2% (BldA) [Mass fraction] 99 % Florencio Tesfaye MD Work Phone: [facility] 06-12-2022 13:30-0400 Systolic blood pressure 152 mm[Hg] Florencio Tesfaye MD Work Phone: [facility] 06-12-2022 13:00-0400 Body temperature 97.2 [degF] Florencio Tesfaye MD Work Phone: [facility] 06-03-2022 10:47-0400 Body weight 81.65 kg Robel Onofre DO Work Phone: [facility] 06-03-2022 10:47-0400 Diastolic blood pressure 66 mm[Hg] Robel Onofre DO Work Phone: [facility] 06-03-2022 10:47-0400 Heart rate 60 /min Robel Onofre DO Work Phone: [facility] 06-03-2022 10:47-0400 Respiratory rate 16 /min Robel Onofre DO Work Phone: [facility] 06-03-2022 10:47-0400 Systolic blood pressure 120 mm[Hg] Robel Onofre DO Work Phone: [facility] 05-31-2022 08:47-0400 Body height 170.2 cm Pacc 1 Work Phone: [facility] 05-31-2022 08:47-0400 Body temperature 97.7 [degF] Pacc 1 Work Phone: [facility] 05-31-2022 08:47-0400 Body weight 82.37 kg Pacc 1 Work Phone: [facility] 05-31-2022 08:47-0400 Diastolic blood pressure 58 mm[Hg] Pacc 1 Work Phone: [facility] 05-31-2022 08:47-0400 Heart rate 51 /min Pacc 1 Work Phone: [facility] 05-31-2022 08:47-0400 Respiratory rate 16 /min Pacc 1 Work Phone: [facility] 05-31-2022 08:47-0400 SaO2% (BldA) [Mass fraction] 96 % Pacc 1 Work Phone: [facility] 05-31-2022 08:47-0400 Systolic blood pressure 100 mm[Hg] Pacc 1 Work Phone: [facility] 05-21-2022 15:11-0400 Body temperature 97.59 [degF] Florencio Tesfaye MD Work Phone: [facility] 05-21-2022 15:11-0400 Body weight 82.01 kg Florencio Tesfaye MD Work Phone: [facility] 05-21-2022 15:11-0400 Diastolic blood pressure 63 mm[Hg] Florencio Tesfaye MD Work Phone: [facility] 05-21-2022 15:11-0400 Heart rate 59 /min Florencio Tesfaye MD Work Phone: [facility] 05-21-2022 15:11-0400 SaO2% (BldA) [Mass fraction] 96 % Florencio Tesfaye MD Work Phone: [facility] 05-21-2022 15:11-0400 Systolic blood pressure 133 mm[Hg] Florencio Tesfaye MD Work Phone: [facility] 01-11-2022 08:03-0400 Body height 170.2 cm Florencio Tesfaye MD Work Phone: [facility] 01-11-2022 08:03-0400 Body temperature 98.1 [degF] Florencio Tesfaye MD Work Phone: [facility] 01-11-2022 08:03-0400 Body weight 83.28 kg Florencio Tesfaye MD Work Phone: [facility] 01-11-2022 08:03-0400 Diastolic blood pressure 58 mm[Hg] Florencio Tesfaye MD Work Phone: [facility] 01-11-2022 08:03-0400 Heart rate 85 /min Florencio Tesfaye MD Work Phone: [facility] 01-11-2022 08:03-0400 SaO2% (BldA) [Mass fraction] 99 % Florencio Tesfaye MD Work Phone: [facility] 01-11-2022 08:03-0400 Systolic blood pressure 118 mm[Hg] Florencio Tesfaye MD Work Phone: [facility] 12-26-2021 14:59-0400 Body weight 85.73 kg Bessie Cristóbal OUTSIDE PLANT FIELD ENGINEER.SUBMARINE ELEMENT COORDINATOR Work Phone: [facility] 12-26-2021 14:59-0400 Diastolic blood pressure 76 mm[Hg] Bessie Cristóbal OUTSIDE PLANT FIELD ENGINEER.SUBMARINE ELEMENT COORDINATOR Work Phone: [facility] 12-26-2021 14:59-0400 Heart rate 56 /min Bessie Cristóbal OUTSIDE PLANT FIELD ENGINEER.SUBMARINE ELEMENT COORDINATOR Work Phone: [facility] 12-26-2021 14:59-0400 SaO2% (BldA) [Mass fraction] 97 % Bessie Cristóbal OUTSIDE PLANT FIELD ENGINEER.SUBMARINE ELEMENT COORDINATOR Work Phone: [facility] 12-26-2021 14:59-0400 Systolic blood pressure 120 mm[Hg] Bessie Cristóbal OUTSIDE PLANT FIELD ENGINEER.SUBMARINE ELEMENT COORDINATOR Work Phone: [facility] 12-12-2021 10:04-0400 Body temperature 96.8 [degF] Robel Onofre DO Work Phone: [facility] 12-12-2021 10:04-0400 Body weight 83.92 kg Robel Onofre DO Work Phone: [facility] 12-12-2021 10:04-0400 Diastolic blood pressure 70 mm[Hg] Robel Onofre DO Work Phone: [facility] 12-12-2021 10:04-0400 Heart rate 56 /min Robel Onofre DO Work Phone: [facility] 12-12-2021 10:04-0400 Respiratory rate 16 /min Robel Onofre DO Work Phone: [facility] 12-12-2021 10:04-0400 Systolic blood pressure 100 mm[Hg] Robel Onofre DO Work Phone: [facility] 10-15-2021 08:32-0500 Body height 170.[address] Robel Onofre Work Phone: [facility] Work Phone: 10-15-2021 08:32-0500 Body mass index (BMI) [Ratio] 29.1 kg/m2 Dr. Robel Onofre Work Phone: [facility] Work Phone: 10-15-2021 08:32-0500 Body weight 84.[address] Robel Onofre Work Phone: [facility] Work Phone: 10-15-2021 08:32-0500 Diastolic blood pressure 70 mm[Hg] Dr. Robel Onofre Work Phone: [facility] Work Phone: 10-15-2021 08:32-0500 Heart rate 54 /min Dr. Robel Onofre Work Phone: [facility] Work Phone: 10-15-2021 08:32-0500 Respiratory rate 20 /min Dr. Robel Onofre Work Phone: [facility] Work Phone: 10-15-2021 08:32-0500 SaO2% (BldA) [Mass fraction] 96 % Dr. Robel Onofre Work Phone: [facility] Work Phone: 10-15-2021 08:32-0500 Systolic blood pressure 122 mm[Hg] Dr. Robel Onofre Work Phone: [facility] Work Phone: 02-03-2017 08:40-0400 BMI (Body Mass Index) 28.03 kg/m2 [facility] Work Phone: 02-03-2017 08:40-0400 BP Diastolic 68 mm[Hg] [facility] Work Phone: 02-03-2017 08:40-0400 BP Systolic 118 mm[Hg] [facility] Work Phone: 02-03-2017 08:40-0400 Height 170.18 cm [facility] Work Phone: 02-03-2017 08:40-0400 Pulse (Heart Rate) 58 /min [facility] Work Phone: 02-03-2017 08:40-0400 Respiratory Rate 18 /min [facility] Work Phone: 02-03-2017 08:40-0400 Weight 81.19 kg [facility] Work Phone: 07-30-2016 14:03-0500 BMI [...] BP Diastolic 78 mm[Hg] Dede Araiza RN [facility] Work Phone: 01-02-2016 10:45-0400 BP Systolic 150 mm[Hg] [facility] Work Phone: 05-24-2013 10:32-0400 Heart rate 57 /min [facility] Work Phone: 05-24-2013 10:32-0400 Heart rate 442 ms [facility] Work Phone: NEGATED: Highlighted [id number] 11:20-0400 BMI (Body Mass Index) 27.35 kg/m2 [facility] Work Phone: NEGATED: Highlighted [id number] 11:20-0400 BP Diastolic 77 mm[Hg] [facility] Work Phone: NEGATED: Highlighted [id number] 11:20-0400 BP Systolic 127 mm[Hg] [facility] Work Phone: NEGATED: Highlighted [id number] 11:20-0400 Height 170.18 cm [facility] Work Phone: NEGATED: Highlighted [id number] 11:20-0400 Height 170 cm [facility] Work Phone: NEGATED: Highlighted [id number] 11:20-0400 Pulse (Heart Rate) 57 /min [facility] Work Phone: NEGATED: Highlighted [id number] 11:20-0400 Weight 78.93 kg [facility] Work Phone: NEGATED: Poonam [id number] 11:0 Weight 79 kg [facility] Work Phone: Encounters Encounter Date Encounter Type Care Provider Facility Start: 07-01-2025 ambulatory Robel Onofre Facilit y:[facility] Start: 06-27-2025 End: 06-27-2025 ambulatory ROBEL ONOFRE Facility:[facility] Start: 06-24-2025 End: 06-24-2025 ambulatory ROBEL ONOFRE Facility:[facility] Start: 06-24-2025 End: 06-24-2025 ambulatory ROBEL ONOFRE Facility:[facility] Start: 03-22-2025 End: 03-22-[address] Jamal [facility] Work Phone: Start: 03-22-2025 End: 03-22-[address] Robel Onofre DO Work Phone: [facility] Start: 03-17-2025 End: 03-17-2025 Refill Robel Onofre DO Work Phone: [facility] [place] Comment on above: Refill Request Start: 02-10-2025 End: 02-11-2025 Refill Cat Foote APRN.SUBMARINE ELEMENT COORDINATOR Work Phone: [facility] [place] Comment on above: Refill Request Start: 01-18-2025 End: 01-18-2025 ambulatory Citlaly Payton MA [facility] Start: 01-18-2025 End: 01-18-2025 Patient encounter procedure Citlaly Payton MA [facility] Comment on above: Population Health Na vigation Outreach ([place]/Workbench/ACO ) Start: 12-27-2024 End: 12-27-2024 Patient encounter procedure Robel Onofre DO Work Phone: [facility] [place] Comment on above: Gastroesophageal ref 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 hemorrhage (Primary Dx); Vitamin D deficiency; Other depression; Vitamin B12 deficiency; Thrombocytopenia; Familial hypercholesterolemia; Macular degeneration of both eyes, unspecified type; BPH associated with nocturia; Actinic keratosis; BPPV (benign paroxysmal positional vertigo), unspecified laterality Start: 12-27-2024 End: 12-27-2024 ambulatory ROBEL ONOFRE Facility:[facility] Start: 12-20-2024 End: 12-21-2024 Telephone encounter Robel Onofre DO Work Phone: [facility] [place] Comment on above: Patient Question Start: 12-14-2024 End: 12-14-2024 Telephone encounter Robel Onofre DO Work Phone: [facility] [place] Comment on above: Vertigo Start: 12-14-2024 End: 12-14-2024 Emergency department patient visit Dr. Robel Onofre DO Work Phone: -Emergency Department Work Phone: Start: 12-14-2024 End: 12-14-2024 Office outpatient visit 25 minutes Asha Hernandez APRN.SUBMARINE ELEMENT COORDINATOR Work Phone: [facility] [place] Comment on above: Vertigo (Primary Dx) ; Nausea and vomiting, unspecified vomiting type; Gait disturbance Start: 12-14-2024 End: 12-14-2024 ambulatory ASHA HERNANDEZ Facility:[facility] Start: 12-09-2024 End: 12-09-2024 Refill Robel Hernandezon DO Work Phone: [address] [place] [address] Comment on above: Refill Request Start: 11-22-2024 End: 11-24-2024 Refill Robel Tobinrison DO Work Phone: [facility] [place] Comment on above: Refill Request Start: 11-08-2024 End: 11-08-2024 Refill Robel Bowman Onofre DO Work Phone: [address] [place] [address] Comment on above: Refill Request Start: 10-08-2024 End: 10-12-2024 Refill Robel Tobinrison DO Work Phone: [facility] [place] Comment on above: Refill Request Letter (Blindness co nfirmation for taxes) Start: 08-30-2024 End: 11-30-2024 Telephone encounter Robel Onofre DO Work Phone: [facility] [place] Start: 08-11-2024 End: 08-11-2024 Refill Robel Onofre DO Work Phone: [facility] [place] Comment on above: Refill Request Start: 07-01-2024 End: 07-01-2024 Telephone encounter Robel Onofre DO Work Phone: [facility] [place] Start: 06-30-2024 End: 06-30-2024 ambulatory ROBEL ONOFRE Facility:[facility] Start: 06-30-2024 End: 06-30-2024 Patient encounter procedure Robel Onofre DO Work Phone: [facility] Comment on above: Hypertension, essent ial (Primary Dx); Need for influenza vaccination; Vitamin D deficiency; Vitamin B12 deficiency; Thrombocytopenia (HCC); Macular degeneration of both eyes, unspecified type; Familial hypercholesterolemia; BPH associated with nocturia; Borderline abnormal thyroid function test; Hyperglycemia; Other depression Start: 06-30-2024 End: 06-30-2024 ambulatory ROBEL ONOFRE Facility:[facility] Start: 05-04-2024 End: 05-04-2024 Refill Robel Onofre DO Work Phone: [facility] Comment on above: Refill Request Start: 03-10-2024 End: 03-10-2024 Office outpatient visit 15 minutes Bessie Ambrocio APRN.SUBMARINE ELEMENT COORDINATOR Work Phone: [facility] [place] Comment on above: Feelings of worthles sness (Primary Dx); Stress; Lack of motivation; Other depression Start: 02-04-2024 End: 02-04-2024 Patient encounter procedure Bessie Ambrocio APRN.CNP Work Phone: [facility] [place] Comment on above: Feelings of worthles sness (Primary Dx); Stress; Lack of motivation; Other depression; Macular degeneration of both eyes, unspecified type; Bilateral hearing loss, unspecified hearing loss type Start: 01-26-2024 Telephone encounter Robel villanueva DO Work Phone: [facility] [place] Comment on above: Depression Start: 01-16-2024 Telephone encounter Robel villanueva DO Work Phone: [facility] [place] Comment on above: Results Start: 01-01-2024 Telephone encounter Robel villanueva DO Work Phone: [facility] [place] Start: 12-22-2023 End: 12-22-2023 Patient encounter procedure Robel Onofre DO Work Phone: [facility] [place] Comment on above: Hypertension, essent ial (Primary [...] 11-25-2023 Refill Robel terrazas DO Work Phone: [facility] [place] Comment on above: Refill Request Start: 11-24-2023 Refill Robel terrazas DO Work Phone: [facility] [place] Comment on above: Refill Request; erro r Start: 11-12-2023 Refill Robel terrazas DO Work Phone: [facility] [place] Comment on above: Refill Request Start: 10-14-2023 Refill Robel terrazas DO Work Phone: [facility] [place] Comment on above: Refill Request Start: 07-31-2023 Refill Robel terrazas DO Work Phone: [facility] [place] Comment on above: Refill Request Start: 07-25-2023 Refill Robel terrazas DO Work Phone: [facility] [place] Comment on above: Refill Request Orders Start: [...] 03-31-2023 Refill Robel terrazas DO Work Phone: [facility] Comment on above: Refill Request Start: 02-12-2023 Refill Robel terrazas DO Work Phone: [address] [place] [address] Comment on above: Refill Request Start: 01-30-2023 Telephone encounter Robel Gracie villanueva DO Work Phone: [facility] Comment on above: Handicap Placard Start: 12-23-2022 Telephone encounter Robel Bowman Jess villanueva DO Work Phone: [facility] Comment on above: Results Start: 12-06-2022 End: 12-06-2022 Patient encounter procedure Robel Onofre DO Work Phone: [facility] Comment on above: Vitamin D deficiency (Primary Dx); Vitamin B12 deficiency; Hypertension, essential; Familial hypercholesterolemia; BPH associated with nocturia; Screening for prostate cancer; Iron deficiency anemia, unspecified iron deficiency anemia type Start: 11-18-2022 Refill Bessie kenney APRN.SUBMARINE ELEMENT COORDINATOR Work Phone: [facility] Comment on above: Refill Request Start: 10-17-2022 Refill Robel terrazas DO Work Phone: [facility] Comment on above: Refill Request Start: 10-07-2022 Refill Robel terrazas DO Work Phone: [facility] Comment on above: Refill Request Start: 09-10-2022 Refill Robel terrazas DO Work Phone: [facility] Comment on above: Refill Request Start: 07-24-2022 Refill Robel terrazas DO Work Phone: [facility] Comment on above: Refill Request Start: 07-04-2022 Telephone encounter Bessie Camargo OUTSIDE PLANT FIELD ENGINEER.SUBMARINE ELEMENT COORDINATOR Work Phone: [facility] Comment on above: Results Start: 07-03-2022 End: 07-03-2022 Patient encounter procedure Bessie Ambrocio OUTSIDE PLANT FIELD ENGINEER.SUBMARINE ELEMENT COORDINATOR Work Phone: [facility] Comment on above: Hypertension, essent ial (Primary Dx); Maegan-Feldman tear Start: 06-26-2022 Telephone encounter Robel villanueva DO Work Phone: [facility] Comment on above: Patient Update Start: 06-21-2022 Telephone encounter Robel villanueva DO Work Phone: [facility] Comment on above: Patient Update Start: 06-17-2022 ambulatory Robel terrazas DO Work Phone: [facility] Start: 06-17-2022 Telephone encounter Robel villanueva DO Work Phone: [facility] Comment on above: Orders Start: 06-14-2022 Non-patient / Non-visit Dr. Roxana Onofre Work Phone: [facility] Start: 06-14-2022 Non-patient / Non-visit Dr. Roxana Onofre Work Phone: [facility] Start: 06-13-2022 End: 06-15-2022 Evaluation and management of inpatient Dr. Robel Onofre Work Phone: [facility] Start: 06-13-[address] Abram Onofre Work Phone: [facility] Work Phone: Start: 06-13-2022 Non-patient / Non-visit Dr. Roxana Onofre Work Phone: [facility] Start: 06-13-2022 Telephone encounter Florencio cummings MD Work Phone: General Surgery Comment on above: Patient Update Start: 06-12-2022 ambulatory FLORENCIO TESFAYE Facili ty:[facility] Start: 06-12-2022 End: 06-12-2022 Subsequent hospital visit by physician Florencio Tesfaye MD Work Phone: [facility] Surgery Comment on above: Right inguinal herni a [K40.90] Start: 06-07-2022 Telephone encounter Luiza Rivers APRN.CNP Work Phone: Pre Anesthesia Comment on above: Patient Update Start: 06-03-2022 End: 06-03-2022 Patient encounter procedure Robel Onofre Work Phone: [facility] Comment on above: Hypertension, essent ial [...] gangrene Start: 05-31-2022 End: 05-31-2022 [facility]: [facility] [place] Start: 05-31-2022 End: 05-31-2022 ambulatory [facility] 1 Work Phone: Pre Anesthesia Comment [...] Refill Robel Grimes son DO Work Phone: [facility] [place] Comment on above: Refill Request Start: 02-18-2022 Refill Robel Grimes son DO Work Phone: [facility] Comment on above: Refill Request Start: 02-01-2022 Telephone encounter Bessie Camargo OUTSIDE PLANT FIELD ENGINEER.SUBMARINE ELEMENT COORDINATOR Work Phone: [facility] Comment on above: Results Start: 01-31-2022 Telephone encounter Robel villanueva DO Work Phone: [facility] Comment on above: Patient Update; Appo intment Start: 01-11-2022 End: 01-11-2022 Patient encounter procedure Florencio Tesfaye MD Work Phone: General Surgery Comment on above: Bilateral inguinal h ernia without obstruction or gangrene, recurrence not specified Start: 01-02-2022 Telephone encounter Robel villanueva DO Work Phone: [facility] Comment on above: Results; Appointment Start: 01-01-2022 End: 01-01-[address] Robel Onofre Work Phone: [facility] Start: 12-27-2021 Telephone encounter Bessie Camargo OUTSIDE PLANT FIELD ENGINEER.SUBMARINE ELEMENT COORDINATOR Work Phone: [facility] Comment on above: Faxed orders Change Of Order ([facility] radiology dept[facility] Start: 12-26-2021 End: 12-26-2021 Patient encounter procedure Bessie Cristóbal OUTSIDE PLANT FIELD ENGINEER.SUBMARINE ELEMENT COORDINATOR Work Phone: [facility] Comment on above: Right inguinal pain (Primary Dx); Inguinal bulge Start: 12-26-2021 Telephone encounter Robel villanueva DO Work Phone: [facility] [place] Comment on above: Right groin pain Start: 12-12-2021 End: 12-12-2021 Patient encounter procedure Robel Onofre DO Work Phone: [facility] [place] Comment on above: Vitamin D deficiency (Primary Dx); BPH associated with nocturia; Fatigue, unspecified type; Familial hypercholesterolemia; Coronary artery disease due to lipid rich plaque; Hypertension, essential; Actinic keratosis Start: 10-15-2021 End: 10-15-[address] Robel Onofre Work Phone: [facility] Start: 06-20-2021 End: 06-20-2021 Subsequent hospital visit [...] encounter procedure Mandeep Bernstein DO Work Phone: [facility] Work Phone: [...] 06-20-2021 Dup-scan aorta ivc iliac vascl/bpgs complete Shailehs [place] Start: 06-02-2020 Dup-scan aorta ivc iliac [...] Author Start: 06-30-2027 Diabetes Screening Diabetes Screening [facility] Start: 01-13-2027 Diabetes Screening Diabetes Screening [facility] Start: 12-21-2026 Diabetes Screening Diabetes Screening [facility] Start: 12-06-2025 DIABETES SCREEN DIABETES SCREEN [facility] Start: 12-06-2025 Diabetes Screening Diabetes Screening [facility] Start: 07-03-2025 DIABETES SCREEN DIABETES SCREEN [facility] Start: 06-30-2025 Hepatitis B surface antibody level LDL Cholesterol [facility] Start: 06-24-2025 End: 06-24-2025 Patient encounter procedure 06/24/2025 10:00 AM EDT Office Visit [facility] [place] [address] [place], [place] [id number] Robel Onofre DO [address] [place], [place] [address] Medicare Wellness [facility] [place] Comment on above: Medicare Wellness Start: 05-31-2025 DIABETES SCREEN DIABETES SCREEN [facility] Start: 04-25-2025 Influenza [facility] Start: 01-31-2025 DIABETES SCREEN DIABETES SCREEN [facility] Start: 01-13-2025 Hepatitis B surface antibody level LDL Cholesterol [facility] Start: 12-27-2024 End: 12-27-2024 Patient encounter procedure 12/27/2024 10:40 AM EDT Office Visit [facility] [place] [address] [place], [place] [id number] Robel Onofre DO [address] [facility] [place] [address] follow up [facility] [place] Comment on above: follow up Start: 12-14-[address] [facility] Start: 08-25-2024 Advance Directive Discussion Advance Directive Discussion [facility] Start: 08-25-2024 Medicare Advantage Annual Wellness Visit Medicare Advantage Annual Wellness Visit [facility] Start: 06-30-2024 End: 09-29-2024 25-hydroxyvitamin D3 [Mass/volume] in Serum or Plasma [facility] Comment on above: Expected: 06/30/2024, Expires: Start: 06-30-2024 End: 09-29-2024 CBC W Auto Differential panel - Blood [facility] Comment on above: Expected: 06/30/2024, Expires: Start: 06-30-2024 End: 09-29-2024 Cobalamin (Vitamin B12) [Mass/volume] in Serum or Plasma [facility] Comment on above: Expected: 06/30/2024, Expires: Start: 06-30-2024 End: 09-29-2024 Comprehensive metabolic 2000 panel - Serum or Plasma [facility] Work Phone: Comment on above: Expected: 06/30/2024, Expires: Start: 06-30-2024 End: 09-29-2024 Hemoglobin A1c in Blood [facility] Comment on above: Expected: 06/30/2024, Expires: Start: 06-30-2024 End: 09-29-2024 LIPID PANEL, NONFASTING [facility] Comment on above: Expected: 06/30/2024, Expires: Start: 06-30-2024 End: 09-29-2024 Magnesium [Mass/volume] in Serum or Plasma [facility] Comment on above: Expected: 06/30/2024, Expires: Start: 06-30-2024 End: 09-29-2024 Thyrotropin [Units/volume] in Serum or Plasma [facility] Comment on above: Expected: 06/30/2024, Expires: Start: 06-30-2024 End: 09-29-2024 Urinalysis complete panel - Urine [facility] Comment on above: Expected: 06/30/2024, Expires: Start: 06-30-2024 End: 06-30-2024 Patient encounter procedure 06/30/2024 10:40 AM EST Office Visit [facility] [place] [address] [facility] [place] [address] Robel Onofre DO [address] [facility] [place] [address] 6 month follow up [facility] [place] Comment on above: 6 month follow up Start: 05-29-2024 DIABETES SCREEN DIABETES SCREEN [facility] Start: 04-25-2024 Covid-19 Vaccine ( season) Covid-19 Vaccine () [facility] Start: 04-25-2024 Covid-19 Vaccine ( season) Covid-19 Vaccine ( season) [facility] Start: 04-25-2024 Influenza vaccination Influenza Vaccine (#1) [facility] Start: 03-10-2024 End: 03-10-2024 Patient encounter procedure 03/10/2024 12:20 PM EDT Office Visit [facility] [place] [address] [facility] [place] [address] Bessie Ambrocio, OUTSIDE PLANT FIELD ENGINEER.SUBMARINE ELEMENT COORDINATOR [address] [facility] [place] [address] 4-6 weeks follow up [facility] [place] Comment on above: 4-6 weeks follow up Start: 02-04-2024 End: 02-04-2024 Patient encounter procedure 02/04/2024 12:40 PM EDT Office Visit [facility] [place] [address] [facility] [place] [address] Bessie Ambrocio, OUTSIDE PLANT FIELD ENGINEER.SUBMARINE ELEMENT COORDINATOR [address] [facility] [place], [place] [id number] depression [facility] [place] Comment on above: depression Start: 01-01-2024 End: 04-01-2024 ALK PHOS ISOENZYM BL ALK PHOS ISOENZYM BL Lab Routine Elevated alkaline phosphatase level Expected: 01/01/2024, Expires: 04/01/2024 [facility] Comment on above: Expected: 01/01/2024, Expires: Start: 01-01-2024 End: 04-01-2024 CBC W Auto Differential panel - Blood COMPLETE BLOOD COUNT AND DIFFERENTIAL Lab Routine Thrombocytopenia (HCC) Expected: 01/01/2024, Expires: 04/01/2024 [facility] Work Phone: Comment on above: Expected: 01/01/2024, Expires: Start: 01-01-2024 End: 04-01-2024 Comprehensive metabolic 2000 panel - Serum or Plasma COMPREHENSIVE METABOLIC PANEL Lab Routine Elevated serum creatinine Expected: 01/01/2024, Expires: 04/01/2024 [facility] Comment on above: Expected: 01/01/2024, Expires: Start: 12-22-2023 End: 03-22-2024 Cobalamin (Vitamin B12) [Mass/volume] in Serum or Plasma [facility] Comment on above: Expected: 12/22/2023, Expires: Start: 12-22-2023 End: 03-22-2024 Comprehensive metabolic 2000 panel - Serum or Plasma [facility] Work Phone: Comment on above: Expected: 12/22/2023, Expires: Start: 12-22-2023 End: 03-22-2024 Iron and Iron binding capacity panel - Serum or Plasma IRON AND TIBC Lab Routine Iron deficiency anemia, unspecified iron deficiency anemia type Expected: 12/22/2023, Expires: 03/22/2024 [facility] Comment on above: Expected: 12/22/2023, Expires: Start: 12-22-2023 End: 03-22-2024 LIPID PANEL, NONFASTING LIPID PANEL, NONFASTING Lab Routine Familial hypercholesterolemia Expected: 12/22/2023, Expires: 03/22/2024 [facility] Comment on above: Expected: 12/22/2023, Expires: Start: 12-22-2023 End: 03-22-2024 Thyrotropin [Units/volume] in Serum or Plasma [facility] Comment on above: Expected: 12/22/2023, Expires: Start: 12-22-2023 End: 03-22-2024 Thyroxine (T4) free [Mass/volume] in Serum or Plasma [facility] Comment on above: Expected: 12/22/2023, Expires: Start: 12-14-2023 End: 03-14-2024 25-hydroxyvitamin D3 [Mass/volume] in Serum or Plasma VITAMIN D 25 HYDROXY Lab Routine Vitamin D deficiency Expected: 12/14/2023, Expires: 03/14/2024 [facility] Work Phone: Comment on above: Expected: 12/14/2023, Expires: Start: 12-14-2023 End: 03-14-2024 CBC panel - Blood by Automated count CBC Lab Routine Familial hypercholesterolemia Iron deficiency anemia, unspecified iron deficiency anemia type Expected: 12/14/2023, Expires: 03/14/2024 [facility] Work Phone: Comment on above: Expected: 12/14/2023, Expires: Start: 12-14-2023 End: 03-14-2024 Cobalamin (Vitamin B12) [Mass/volume] in Serum or Plasma VITAMIN B12 BLOOD Lab Routine Vitamin B12 deficiency Expected: 12/14/2023, Expires: 03/14/2024 [facility] Work Phone: Comment on above: Expected: 12/14/2023, Expires: Start: 12-14-2023 End: 03-14-2024 Comprehensive metabolic 2000 panel - Serum or Plasma COMP METABOLIC PANEL Lab Routine Familial hypercholesterolemia Expected: 12/14/2023, Expires: 03/14/2024 [facility] Work Phone: Comment on above: Expected: 12/14/2023, Expires: Start: 12-14-2023 End: 03-14-2024 Ferritin [Mass/volume] in Serum or Plasma FERRITIN BLD Lab Routine Iron deficiency anemia, unspecified iron deficiency anemia type Expected: 12/14/2023, Expires: 03/14/2024 [facility] Work Phone: Comment on above: Expected: 12/14/2023, Expires: Start: 12-14-2023 End: 03-14-2024 Hemoglobin A1c in Blood HGB A1C Lab Routine Hyperglycemia Expected: 12/14/2023, Expires: 03/14/2024 [facility] Work Phone: Comment on above: Expected: 12/14/2023, Expires: Start: 12-14-2023 End: 03-14-2024 Iron and Iron binding capacity panel - Serum or Plasma IRON + TIBC Lab Routine Iron deficiency anemia, unspecified iron deficiency anemia type Expected: 12/14/2023, Expires: 03/14/2024 [facility] Work Phone: Comment on above: Expected: 12/14/2023, Expires: 4 Start: 12-14-2023 End: 03-14-2024 Lipid 1996 panel - Serum or Plasma LIPID PANEL BASIC Lab Routine Familial hypercholesterolemia Expected: 12/14/2023, Expires: 03/14/2024 [facility] Work Phone: Comment on above: Expected: 12/14/2023, Expires: 4 Start: 12-14-2023 End: 03-14-2024 PSA/PROSTSPECAG SCRN PSA/PROSTSPECAG SCRN Lab Routine BPH associated with nocturia Screening for prostate cancer Expected: 12/14/2023, Expires: 03/14/2024 [facility] Work Phone: Comment on above: Expected: 12/14/2023, Expires: 4 Start: 08-25-2023 Advance Directive Discussion Advance Directive Discussion [facility] Start: 04-25-2023 Covid-19 Vaccine () Covid-19 Vaccine () [facility] Start: 04-25-2023 Influenza vaccination [facility] Start: 12-03-2022 End: 02-02-2023 25-hydroxyvitamin D3 [Mass/volume] in Serum or Plasma VITAMIN D 25 HYDROXY Lab Routine Vitamin D deficiency Expected: 12/03/2022, Expires: 02/02/2023 [facility] Work Phone: Comment on above: Expected: 12/03/2022, Expires: 3 Start: 12-03-2022 End: 02-02-2023 CBC panel - Blood by Automated count CBC Lab Routine Familial hypercholesterolemia Expected: 12/03/2022, Expires: 02/02/2023 [facility] Work Phone: Comment on above: Expected: 12/03/2022, Expires: 3 Start: 12-03-2022 End: 02-02-2023 Cobalamin (Vitamin B12) [Mass/volume] in Serum or Plasma VITAMIN B12 BLOOD Lab Routine Vitamin B12 deficiency Expected: 12/03/2022, Expires: 02/02/2023 [facility] Work Phone: Comment on above: Expected: 12/03/2022, Expires: 3 Start: 12-03-2022 End: 02-02-2023 Comprehensive metabolic 2000 panel - Serum or Plasma COMP METABOLIC PANEL Lab Routine Familial hypercholesterolemia Expected: 12/03/2022, Expires: 02/02/2023 [facility] Work Phone: Comment on above: Expected: 12/03/2022, Expires: 3 Start: 12-03-2022 End: 02-02-2023 Lipid 1996 panel - Serum or Plasma LIPID PANEL BASIC Lab Routine Familial hypercholesterolemia Expected: 12/03/2022, Expires: 02/02/2023 [facility] Work Phone: Comment on above: Expected: 12/03/2022, Expires: 3 Start: 12-03-2022 End: 02-02-2023 PSA/PROSTSPECAG SCRN PSA/PROSTSPECAG SCRN Lab Routine BPH associated with nocturia Screening for prostate cancer Expected: 12/03/2022, Expires: 02/02/2023 [facility] Work Phone: Comment on above: Expected: 12/03/2022, Expires: 3 Start: 12-03-2022 End: 02-02-2023 Thyrotropin [Units/volume] in Serum or Plasma TSH BLD Lab Routine Elevated serum creatinine Fatigue, unspecified type Familial hypercholesterolemia BPH associated with nocturia Expected: 12/03/2022, Expires: 02/02/2023 [facility] Work Phone: Comment on above: Expected: 12/03/2022, Expires: 3 Start: 08-25-2022 ADVANCE DIRECTIVE DISCUSSION ADVANCE DIRECTIVE DISCUSSION [facility] Start: 06-15-[address] [facility] Work Phone: Start: 06-14-2022 Catheterization of vein [facility] Work Phone: Start: 06-13-2022 Application of intermittent pneumatic compression device [facility] Work Phone: Start: 06-13-2022 Ambulation without limitation [facility] Work Phone: Start: 06-13-2022 Assessment of risk of venous thromboembolism [facility] Work Phone: Start: 06-13-2022 Documentation procedure [facility] Work Phone: Start: 06-13-[address] [facility] Work Phone: Start: 06-13-2022 Insertion of catheter into peripheral vein [facility] Work Phone: Start: 06-13-2022 Measuring intake and output [facility] Work Phone: Start: 06-13-[address] [facility] Work Phone: Start: 06-13-2022 Providing care according to standard [facility] Work Phone: Start: 06-13-2022 Referral to gastroenterology service [facility] Work Phone: Start: 06-13-2022 Referral to occupational therapist [facility] Work Phone: Start: 06-13-2022 Referral to service [facility] Work Phone: Start: 06-13-[address] [facility] Work Phone: Start: 06-13-2022 Following clinical pathway protocol [facility] Work Phone: Start: 06-13-[address] [facility] Work Phone: Start: 05-29-2022 Hepatitis B surface antibody level LDL CHOLESTEROL [facility] Start: 04-25-2022 Influenza vaccination INFLUENZA (#1) [facility] Start: 02-15-2022 End: 04-17-2022 Renal function 2000 panel - Serum or Plasma RENAL FUNCTION PANEL Lab Routine Elevated serum creatinine Expected: 02/15/2022, Expires: 04/17/2022 [facility] Work Phone: Comment on above: Expected: 02/15/2022, Expires: 2 Start: 12-27-2021 End: 02-26-2022 CREATININE BLD CREATININE BLD Lab Routine Right groin pain Expected: 12/27/2021, Expires: 02/26/2022 [facility] Work Phone: Comment on above: Expected: 12/27/2021, Expires: 2 Start: 08-25-2021 ADVANCE DIRECTIVE DISCUSSION ADVANCE DIRECTIVE DISCUSSION [facility] Start: 06-06-2021 PNEUMOCOCCAL: 65+ (2 - PCV) PNEUMOCOCCAL: 65+ (2 - PCV) [facility] Start: 05-09-2021 COVID-19 Vaccine (3 - Pfizer booster) COVID-19 Vaccine (3 - Pfizer booster) [facility] Work Phone: Start: 03-08-2021 COVID-19 VACCINE (4 - Booster for Pfizer series) COVID-19 VACCINE (4 - Booster for Pfizer series) [facility] Start: 01-01-2021 COVID-19 VACCINE (4 - Booster for Pfizer series) COVID-19 VACCINE (4 - Booster for Pfizer series) [facility] Start: 01-01-2021 COVID-19 VACCINE (5 - Booster) COVID-19 VACCINE (5 - Booster) [facility] Start: 01-01-2021 COVID-19 VACCINE (6 - Booster) COVID-19 VACCINE (6 - Booster) [facility] Start: 01-01-2021 COVID-19 VACCINE (6 - Pfizer series) COVID-19 VACCINE (6 - Pfizer series) [facility] Start: 04-25-2020 Influenza vaccination Flu vaccine (#1) [place], [place] Start: 02-14-2019 Annual Wellness Visit (AWV) Annual Wellness Visit (AWV) [place] Start: 05-12-2018 End: 05-12-2018 Radex spine lumbosacral minimum 4 views XR LUMBAR 4VWS FLEX/EX [facility] Work Phone: Start: 08-12-2017 End: 08-12-2017 Appointment Appointment [facility] Work Phone: Start: 08-01-2017 End: 08-13-2017 *Hepatic Function Panel *Hepatic Function Panel [employer] Work Phone: Start: 08-01-2017 End: 08-13-2017 Lipid panel [AGGREGATE] *Lipid Profile CC PCP [facility] Work Phone: Start: 02-03-2017 End: 02-03-2017 Appointment Appointment [facility] Work Phone: Start: 02-03-2017 End: 02-03-2017 DJN DJN [facility] Work Phone: Start: 02-03-2017 End: 02-03-2017 Follow Up Appt 6 months Follow Up Appt 6 months [facility] Work Phone: Start: 02-03-2017 End: 02-03-2017 Stress Echocardiogram - Dobutamine Stress Echocardiogram - Dobutamine [facility] Work Phone: Start: 12-30-2016 End: 02-01-2017 *Hepatic Function Panel *Hepatic Function Panel [facility] Work Phone: Start: 12-30-2016 End: 02-01-2017 Lipid panel [AGGREGATE] *Lipid Profile CC PCP [facility] Work Phone: Start: 07-30-2016 End: 07-30-2016 DJN DJN [facility] Work Phone: Start: 07-30-2016 End: 07-30-2016 Follow Up Appt 6 months Follow Up Appt 6 months [facility] Work Phone: Start: 07-01-2016 End: 07-01-2016 *Hepatic Function Panel *Hepatic Function Panel [facility] Work Phone: Start: 07-01-2016 End: 07-01-2016 Lipid panel [AGGREGATE] *Lipid Profile CC PCP [facility] Work Phone: Start: 01-02-2016 End: 01-02-2016 MIRNA MIRNA [facility] Work Phone: Start: 01-02-2016 End: 01-02-2016 DJN DJN [facility] Work Phone: Start: 01-02-2016 End: 01-02-2016 Follow Up Appt 6 months Follow Up Appt 6 months [facility] Work Phone: Start: 01-02-2016 End: 01-02-2016 Stress Echocardiogram - Dobutamine Stress Echocardiogram - Dobutamine [facility] Work Phone: Start: 11-28-2015 End: 12-28-2015 *Hepatic Function Panel *Hepatic Function Panel [facility] Work Phone: Start: 11-28-2015 End: 12-28-2015 Lipid panel [AGGREGATE] *Lipid Profile CC PCP [facility] Work Phone: Start: 07-03-2015 End: 07-03-2015 DJN DJN [facility] Work Phone: Start: 07-03-2015 End: 07-03-2015 Follow Up Appt 6 months Follow Up Appt 6 months [facility] Work Phone: Start: 07-03-2015 End: 07-03-2015 Follow Up BP Check Follow Up BP Check [facility] [employer] [facility] Work Phone: Start: 05-29-2015 End: 05-29-2015 *Hepatic Function Panel *Hepatic Function Panel [employer] Work Phone: Start: 05-29-2015 End: 05-29-2015 Lipid panel [AGGREGATE] *Lipid Profile CC PCP [facility] [employer] Work Phone: Start: 12-13-2014 End: 12-13-2014 *Hepatic Function Panel *Hepatic Function Panel [employer] Work Phone: Start: 12-13-2014 End: 12-13-2014 Lipid panel [AGGREGATE] *Lipid Profile CC PCP [facility] [employer] Work Phone: Start: 05-31-2014 End: 06-14-2014 *Hepatic Function Panel *Hepatic Function Panel [employer] Work Phone: Start: 05-31-2014 End: 05-31-2014 KATTY ALANIZ [employer] Work Phone: Start: 05-31-2014 End: 05-31-2014 Follow Up Appt 1 year Follow Up Appt 1 year [employer] Work Phone: Start: 05-31-2014 End: 06-14-2014 Lipid panel [AGGREGATE] *Lipid Profile CC PCP [facility] [employer] Work Phone: Start: 05-31-2014 End: 06-30-2014 Stress Echocardiogram - Dobutamine Stress Echocardiogram - Dobutamine [employer] Work Phone: Start: 2014 RSV Vaccine (1 - 1-dose 75+ series) RSV Vaccine (1 - 1-dose 75+ series) [facility] Start: 05-24-2013 End: 05-18-2014 KATTY ALANIZ [employer] Work Phone: Start: 05-24-2013 End: 05-24-2013 Echocardiography Echocardiogram (complete) [employer] Work Phone: Start: 05-24-2013 End: 05-18-2014 Follow Up Appt 1 year Follow Up Appt 1 year [facility] Work Phone: Start: 05-24-2013 End: 05-24-2013 Stress Echocardiogram - Dobutamine Stress Echocardiogram - Dobutamine [facility] Work Phone: Start: 05-19-2013 End: 05-31-2014 *Hepatic Function Panel *Hepatic Function Panel [facility] [employer] Work Phone: Start: 05-19-2013 End: 05-31-2014 Lipid panel [AGGREGATE] *Lipid Profile [facility] [employer] Work Phone: Start: 11-25-2012 End: 04-14-2013 *Hepatic Function Panel *Hepatic Function Panel [facility] [employer] Work Phone: Start: 11-25-2012 End: 04-14-2013 Lipid panel [AGGREGATE] *Lipid Profile [facility] [employer] Work Phone: Start: 11-11-2012 End: 11-11-2012 Follow Up Appt 6 months Follow Up Appt 6 months [facility] [employer] Work Phone: Start: 06-02-2012 End: 05-07-2012 *Hepatic Function Panel *Hepatic Function Panel [facility] [employer] Work Phone: Start: 06-02-2012 End: 05-07-2012 Lipid panel [AGGREGATE] *Lipid Profile [facility] [employer] Work Phone: Start: 05-25-2012 End: 05-25-2012 Electrocardiogram, complete EKG (In office) [facility] Work Phone: Start: 05-25-2012 End: 05-25-2012 Follow Up Appt 6 months Follow Up Appt 6 months [facility] [employer] Work Phone: Start: 11-11-2011 End: 11-21-2011 *Hepatic Function Panel *Hepatic Function Panel [facility] [employer] Work Phone: Start: 11-11-2011 End: 11-11-2011 Follow Up Appt 6 months Follow Up Appt 6 months [facility] Work Phone: Start: 11-11-2011 End: 11-11-2011 Follow Up Appt Other Follow Up Appt Other [facility] Work Phone: Start: 11-11-2011 End: 11-21-2011 Lipid panel [AGGREGATE] *Lipid Profile [facility] Work Phone: Start: 2004 Pneumococcal 65+ years Vaccine (1 of 1 - PPSV23) Pneumococcal 65+ years Vaccine (1 of 1 - PPSV23) [place] Start: 1999 RSV Vaccine (1 - 1-dose 60+ series) RSV Vaccine (1 - 1-dose 60+ series) [facility] Start: 1989 Shingles Vaccine (1 of 2) Shingles Vaccine (1 of 2) [place] Start: 1989 SHINGRIX VACCINE (1 of 2) SHINGRIX VACCINE (1 of 2) [facility] Start: 1958 DTaP/Tdap/Td vaccine (1 - Tdap) DTaP/Tdap/Td vaccine (1 - Tdap) [place], [place] Start: 1958 Urine microalbumin profile [facility] Start: 1957 Anxiety Screening Anxiety Screening [facility] Start: 1949 Lipid panel Lipid screen [facility] Work Phone: Start: 1939 Creatinine measurement Creatinine monitoring [facility] Work Phone: Start: 1939 Potassium monitoring Potassium monitoring [facility] Work Phone: End: 01-26-2023 Ct abdomen & pelvis w/contrast material CT ABD/PEL W IVCON Radiology Routine Localized enlarged lymph nodes Right groin pain 1 Occurrences starting 12/27/2021 until 01/26/2023 [facility] Work Phone: Comment on above: 1 Occurrences starting 12/27/2021 until 01/26/2023 Hemoglobin.gastroint shannan nal.lower [Presence] in Stool by Immunoassay FECAL OCCULT BLOOD TEST Lab Routine Hypotension, unspecified hypotension type Ordered: 06/17/2022 [facility] Work Phone: Comment on above: Ordered: 06/17/2022 INFLUENZA SEASONAL QUADRIVALENT HIGH DOSE AGE 65+ INFLUENZA SEASONAL QUADRIVALENT HIGH DOSE AGE 65+ Immunization/Injection Routine Encounter for immunization Ordered: 06/03/2022 [facility] Work Phone: Comment on above: Ordered: 06/03/2022 Patient Education [facility] Work Phone: Patient referral [facility] Work Phone: End: 01-25-2023 Us pelvic nonobstetric image dcmtn limited/f/u US PELVIS LTD Radiology MAYANK Right inguinal pain Inguinal bulge 1 Occurrences starting 12/26/2021 until 01/25/2023 [facility] Work Phone: Comment on above: 1 Occurrences starting 12/26/2021 until 01/25/[address] [facility] Immunizations Immunization Date Immunization Notes Care Provider [facility]ide 06-30-2024 influenza, high dose seasonal, preservative-free Robel Onofre DO Work Phone: [facility] 06-30-2024 influenza virus vaccine, unspecified formulation [employer] ([employer] DO Work Phone: [facility] 06-13-2023 influenza (HD-IIV4) vaccine, age 65+ yr, high dose, quadrivalent, PF (FLUZONE HIGH-DOSE) [employer] DO Work Phone: [facility] Work Phone: 06-13-2023 influenza virus vaccine, unspecified formulation [employer] DO Work Phone: [facility] 12-06-2022 pneumococcal (PCV20) vaccine, 20 valent (PREVNAR 20) [employer] DO Work Phone: [facility] Work Phone: 12-06-2022 pneumococcal Conjuga te, unspecified formulation [employer] DO Work Phone: [facility] Work Phone: 07-03-2022 influenza, high-dose , quadrivalent vaccine (FLUZONE HIGH DOSE QUADRIVALENT) Bessie Ambrocio APRN.SUBMARINE ELEMENT COORDINATOR Work Phone: [facility] 11-06-2020 COVID-19 vaccine, ag e 12+ yr (PFIZER-BIONTECH - PURPLE TOP) Robel Onofre DO Work Phone: [facility] Work Phone: 10-16-2020 COVID-19 vaccine, ag e 12+ yr (PFIZER-BIONTECH - PURPLE TOP) Robel Onofre DO Work Phone: [facility] Work Phone: 06-06-2020 influenza, high-dose , quadrivalent vaccine (FLUZONE HIGH DOSE QUADRIVALENT) Robel Onofre DO Work Phone: [facility] Work Phone: 06-06-2020 pneumococcal polysaccharide vaccine, 23 valent Robel Onofre DO Work Phone: [facility] Work Phone: 03-25-2020 Covid (Pfizer) Dr. Robel Onofre Work Phone: [facility] 02-23-2020 Covid (Pfizer) Dr. Robel Onofre Work Phone: [facility] 08-25-2019 influenza, injectabl e, quadrivalent, preservative free Dr. Robel Onofre DO Work Phone: [facility] 08-25-2019 influenza, seasonal, injectable Dr. Robel Onofre Work Phone: [facility] Work Phone: 07-27-2019 influenza, high dose seasonal, preservative-free Robel Onofre DO Work Phone: [facility] 05-25-[address] Robel Onofre Work Phone: [facility] No information available. Dorota Koenig [facility] Work Phone: NEGATED: Highlighted row has not occurred!06-04-2022 influenza, high-dose, quadrivalent vaccine (FLUZONE HIGH DOSE QUADRIVALENT) Robel Onofre DO Work Phone: [facility] Work Phone: Payers Date Payer Category Payer Self-pay [id number] 2024 Medicare (Managed Care) MMO [employer] HMO [id number] 2024 Unknown [id number] 2021 Private Health Insurance [employer] [id number] 2021 Unknown [employer] MEDICARE SUPPLEMENT [id number] 2021-Present [phone] [id number] [place] [address] Indemnity [id number] 2021 Unknown [employer] MEDICARE SUPPLEMENT [id number] 2021-Present [phone] [id number] [place] [address] Indemnity [id number] 2021 Medicare [id number] 2016 Private Health Insurance [employer]IC[employer] SUPP [id number] 2016-Present [phone] [address] [place] [address] VABLKCHF [id number] 2016 Private Health Insurance [employer]IC[employer] SUPP [id number] 2016-Present [phone] [address] [place] [address] [id number] 2014 Private Health Insurance [id number] 2004 Medicare MEDICARE MEDICAR E A AND B [id number] 2004-Present [phone] [address] [address] [place] [address] Medicare [id number] 2004 Medicare [id number] 2004 Medicare [id number] Unknown [id number] Unknown [id number] Unknown [id number] Unknown [id number] Social History Date Type Detail Facility Start: 02-11-2018 End: 06-13-2022 Assertion Unknown if ever smoked [facility] Work Phone: Start: 1940 Sex Assigned At Not on file [place], [place] Start: 07-27-2020 End: 12-14-2024 Tobacco smoking status ARIS Former smoker [facility] Work Phone: End: 07-27-1982 History of tobacco use Current smoker [facility] End: 07-27-1982 History of tobacco use Cigarette Smoker [facility] Start: 07-27-2020 End: 06-30-2024 Tobacco use and exposure Never used [facility] Start: 07-27-2020 Alcohol intake Lifetime non-drinker (finding) [facility] Work Phone: Start: 07-27-2020 End: 12-06-2022 History SDOH Alcohol Frequency 1 [facility] Work Phone: Start: 12-12-2021 End: 12-14-2024 Alcohol intake Current non-drinker of alcohol (finding) [facility] Start: 12-04-2020 End: 12-06-2022 History SDOH Social Connections Phone 5 [facility] Start: 12-04-2020 End: 12-06-2022 History SDOH Social Connections Meetings 3 [facility] Start: 12-04-2020 End: 12-06-2022 History SDOH Transport Med 2 [facility] Start: 12-04-2020 Education 12 [facility] Start: 12-02-2021 End: 07-03-2022 Exposure to SARS-CoV-2 (event) Not sure [facility] Work Phone: Start: 10-27-[address] [facility] Start: 10-27-[address] [facility] Start: 1940 Sex Assigned At Male [facility] Start: 12-06-2022 History SDOH Alcohol Std Drinks 0 [facility] Start: 09-10-2022 End: 12-05-2022 History of Social function [facility] Start: 09-10-2022 End: 12-05-2022 Social connection and isolation panel [facility] Do you belong to any clubs or organizations such as christian groups, unions, fraternal or athletic groups, or school groups? Yes [facility] Are you now , , , , never or living with a partner? [facility] How often to you hav e a drink containing alcohol? Never [facility] How many standard dr inks containing alcohol do you have on a typical day? Patient does not drink [facility] Do you feel stress - tense, restless, nervous, or anxious, or unable to sleep at night because your mind is troubled all the time - these days [OSQ] Only a little [facility] (I/We) worried wheervin er (my/our) food would run out before (I/we) got money to buy more. Never true [facility] In the past 12 month s, was there a time when you were not able to pay the mortgage or rent on time? No [facility] Do you feel stress - tense, restless, nervous, or anxious, or unable to sleep at night because your mind is troubled all the time - these days [OSQ] Not at all [facility] Start: 12-14-2024 Sex Male (finding) [facility] Medical Equipment Procedure Code Equipment Code Equipment Origin al Text Equipment Identifier Dates ACCOLADE II ANGL E STEM 127 DEG FDA Start: 11-26-2017 BIOLEX DELTA CER AMIC FEM HEAD FDA Start: 11-26-2017 TRIDENT X3 O DEG POLY INSERT FDA Start: 11-26-2017 trident susan acetabular shell FDA Start: 11-26-2017 Mesh Progrip Polyactic Acid Collagen Polyester [id number] Surgical Self Fixate - [id number] Start: 06-12-2022 ACCOLADE II ANGL E [...] FDA Start: 11-26-2017 Mesh Progrip Wisam Pet [id number] Surgical Self Fixate Flat Sheet Hernia Sterile - [id number] Start: 06-12-2022 ACCOLADE II ANGL E [...] Assessment Result Facility 06-15-2022 Functional status Ambulates;Chair [facility] Work Phone: Mental Status Date Assessment Result Facility 12-14-2024 Cognitive function Voice/Name [facility] Work Phone: 06-15-2022 Cognitive function Voice/Name [facility] Work Phone: Clinical Notes 09-22-1996 to 06-27-2025 Telephone Encounter - Zenaida Morrissey [facility] 03/17/2025 8:57 AM EDTTelephone Encounter - Zenaida Morrissey [facility] 03/17/2025 8:57 AM Citlaly Maldonado MA - 01/18/2025 10:42 AM EDTPatient Instructions Note Date & Type Note Facility 06-27-2025 Note HNO ID: [id number] Author: SALLY STEELE CCC-SERVICE ORDER DISPATCHER Service: ? Author Type: Speech Language Pathologist Type: Progress Notes Filed: 06/27/2025 13:58 Note Text: Summary: DYSPHAGIA EVALUATION Episode Visit Count: 1 Therapist That Will Accept/Oversee The Plan Of Care: Sally Steele Start of Care Date: 06/27/25 Onset Date: 06/24/25 Patient Identified by Name and Date of : Yes [facility] SPEECH THERAPY CLINICAL [...] Barium Swallow Study (MBSS) Recommended Consults GI SERVICE ORDER DISPATCHER Recommendations: Instrumental Swallow Assessment Recommendations Instrumental Swallow [...] Return Demonstration TREATMENT: Evaluation: Swallow Eval Func (90591) Evaluation: Swallow Eval Func (08303) Current Home Program: Continue diet as tolerated. Continue current swallow/eating strategies. MBSS and GI follow-up ( (more content not included)... [facility] 06-25-2025 Note HNO ID: [id number] Author: ROBEL ONOFRE, DO Service: ? Author [...] 29.66 kg/(m2) Robel Onofre DO [facility] 06-24-2025 Note HNO ID: [id number] Author: NAMITA HARDWICK RT(R) Service: ? Author [...] PATIENT PRESENTS WITH AN IMPLANTABLE OR ATTACHED EVENT TECHNICIAN: No RADIOLOGY DEPARTMENT: General X-ray: Exam(s) Completed: Chest X-Ray PERIPHERAL IV DATA: Not applicable SIGNED BY: RT Derrick(R) June 24, 2025 11:36 AM [facility] 06-24-2025 Note HNO ID: [id number] Author: ROBEL ONOFRE DO Service: ? Author [...] taking medications as prescribed. Continues to see Showplace Manager for followup Iron deficiency, eating iron rich [...] Macular degeneration NSTEMI (non-ST elevated myocardial infarction) ([facility]) 10/28/2019 Osteoarthritis of left hip [...] 07/28/2007 DIR RPR ANEURYSM ABDOMINAL AORTA 04/20/2011 [facility] EYLEA (AFLIBERCEPT) 2MG INTRAVITREAL INJECTION OD (RIGHT [...] Age of Onset Heart Mother age 60 [place], smoker None Father age 77 MVA Cataract [...] ALLERGIES (more content not included)... [facility] 03-17-2025 Telephone encounter Note Prescription Refill Information [...] Zenaida Mace March 17, 2025 8:57 AM [facility] 03-17-2025 Miscellaneous Notes Prescription Refill [...] 2025 8:57 AM documented in this encounter [facility] 02-10-2025 Telephone encounter Note Prescription [...] Cedillo MA February 10, 2025 7:53 PM [facility] 02-10-2025 Miscellaneous Notes Prescription Refill [...] 2025 7:53 PM documented in this encounter [facility] 01-18-2025 Note HNO ID: [id number] Author: CITLALY PAYTON MA Service: ? Author Type: Ton Cylinder Inspector Type: Progress Notes Filed: 01/18/2025 10:43 Note [...] orders: Medicare Annual Wellness Visit 06/24/2025 in [facility] with ROBEL ONOFRE - Medicare Wellness, HCC gap closure HCC related Navigation Signature: Citlaly Payton MA January 18, 2025 10:43 AM [facility] 01-18-2025 History of Present illness Narrative POPULATION [...] orders: Medicare Annual Wellness Visit 06/24/2025 in [facility] with ROBEL ONOFRE Medicare Wellness, HCC gap closure HCC related Navigation Signature: Citlaly Payton MA January 18, 2025 10:43 AM documented in this encounter [facility] 01-18-2025 Note Patient Outreach (NE TNAV) TODD MATAMOROS ([id number]) 1940 M Date Time Provider Department 01/18/25 [...] orders: Medicare Annual Wellness Visit 06/24/2025 in [facility] with ROBEL ONOFRE Medicare Wellness, HCC gap closure HCC related Navigation Signature: Citlaly Payton MA January 18, 2025 10:43 AM Allergies As of Date: 01/18/2025 (No Known Allergies) Date Reviewed: 12/14/2024 Reviewed by: Asha Hernandez APRN.CNP - Fully Assessed Reason for Visit: Population Health Navigation Outreach [3910] Cmt: [place]/Workbench/ACO Prescriptions as of 01/18/2025 - simvastatin (ZOCOR) [...] by CITLALY PAYTON on 01/18/25 [facility] 12-27-2024 Instructions Rboel Onofre DO - 12/27/2024 11:19 AM EDT STOP the Omeprazole Start on PROTONIX documented in this encounter [facility] 12-27-2024 Note HNO ID: [id number] Author: ROBEL ONOFRE DO Service: ? Author Type: Physician Type: Progress Notes Filed: 12/27/2024 14:03 Note Text: CC: Todd Matamoros is a 84 year old male who presents to the office for follow up HPI: Recently with episode of dizziness. Was assessed in office by Asha Hernandez CNP and then sent to [facility] for further assessment with [...] taking medications as prescribed. Continues to see Showplace Manager for followup Iron deficiency, eating iron rich [...] 07/28/2007 DIR RPR ANEURYSM ABDOMINAL AORTA 04/20/2011 [place] EYLEA (AFLIBERCEPT) 2MG INTRAVITREAL INJECTION OD [...] impair (more content not included)... [facility] 12-27-2024 History of Present illness Narrative CC: Todd Matamoros is a 84 year old male who presents to the office for follow up HPI: Recently with episode of dizziness. Was assessed in office by Asha Hernandez CNP and then sent to [facility] for further assessment with [...] taking medications as prescribed. Continues to see Showplace Manager for followup Iron deficiency, eating iron rich [...] Macular degeneration NSTEMI (non-ST elevated myocardial infarction) ([facility]) 10/28/2019 Osteoarthritis of left hip [...] 07/28/2007 DIR RPR ANEURYSM ABDOMINAL AORTA 04/20/2011 [facility] EYLEA (AFLIBERCEPT) 2MG INTRAVITREAL INJECTION OD (RIGHT [...] See patient instructions. Robel Onofre DO [address] [place] [address] documented in this encounter [facility] 12-21-2024 Telephone encounter Note Spoke with daughter and notified of below. Verbalized understanding. Nuria Hurst LPN [facility] 12-21-2024 Miscellaneous Notes Spoke with [...] 12/14/24 for vertigo. Asha sent pt to [facility] ER that day and ER prescribed meclizine 12.5 mg take 3 x's day prn. Reports the meclizine has helped pt's vertigo. Daughter did not schedule ER f/u with pcp b/c patient has appt with pcp on Friday12/27/24 for a f/u. Reports pt has 1-2 meclizine pills left. Asking if pcp would send new Rx to [facility]. Pended. documented in this encounter [facility] 12-21-2024 Telephone encounter Note The following approved medication requests have been transmitted electronically. Requested Prescriptions Signed Prescriptions Disp Refills meclizine (ANTIVERT) 12.5 mg tab 20 tablet 0 Sig: Take 1 tablet by mouth three times a day as needed (for dizziness.). Authorizing Provider: PARISH BEASLEY PA-C [facility] 12-20-2024 Telephone encounter Note Daughter, Zulema, reports pt saw Asha on 12/14/24 for vertigo. Asha sent pt to [facility] ER that day and ER prescribed meclizine 12.5 mg take 3 x's day prn. Reports the meclizine has helped pt's vertigo. Daughter did not schedule ER f/u with pcp b/c patient has appt with pcp on Friday12/27/24 for a f/u. Reports pt has 1-2 meclizine pills left. Asking if pcp would send new Rx to [facility]. Pended. [facility] 12-14-2024 Radiology Diagnostic study note [facility] Imaging Services [address] [place], [place] [id number] CTA Head AND Neck W/ Contrast MR#: [id number] Acct: [id number] Name: TODD MATAMOROS Rep #: [id number] : 1940 M 84 From: Robert Raymond MD PCP: Dr. Robel Onofre, DO Status: RE G ER Study:CTA Head AND Neck W/ Contrast Date of E xam: 12/14/24 Exam# [id number] Ordering Dr: Cristobal Mayo DO PROCEDURE: CTA [...] RIGHT Vertebral: Unremarkable. LEFT Vertebral: Unremarkable. Anatomy: [place] anatomy is normal. Aneurysm [...] internal carotid artery. Cerebral atrophy. [facility] CC: Dr. Robel Onofre, DO; Dr. Cristobal Mayo DO ~ Distributing Clerk: Signed [facility] 12-14-2024 Instructions Asha Hernandez, GIA.[facility] - 12/14/2024 12:22 PM EDT We discussed [...] contact our office. documented in this encounter [facility] 12-14-2024 Note HNO ID: [id number] Author: ASHA HERNANDEZ APRN.LEO Service: ? Author Type: Nurse Practitioner Type: Progress Notes Filed: 12/14/2024 12:34 Note Text: CC: Patient presents with: Vertigo: Dizziness x 1 day HPI Recording using [employer] software for draft documentation of the visit was discussed with the patient/authorized provider service representative; all questions welcomed and answered. Patient/authorized provider service representative agreed to proceed Daryn is [...] Macular degeneration NSTEMI (non-ST elevated myocardial infarction) ([facility]) 10/28/2019 Osteoarthritis of left hip [...] 07/28/2007 DIR RPR ANEURYSM ABDOMINAL AORTA 04/20/2011 [facility] EYLEA (AFLIBERCEPT) 2MG INTRAVITREAL INJECTION OD (RIGHT [...] Age of Onset Heart Mother age 60 [place], smoker None Father age 77 MVA Cataract Father No Known Problems Sister No Known Problems Brother No Known Problems (more content not included)... [facility] 12-14-2024 History of Present illness Narrative CC: Patient presents with: Vertigo: Dizziness x 1 day HPI Recording using [employer] software for draft documentation of the visit was discussed with the patient/authorized provider service representative; all questions welcomed and answered. Patient/authorized provider service representative agreed to proceed Daryn is [...] Macular degeneration NSTEMI (non-ST elevated myocardial infarction) ([facility]) 10/28/2019 Osteoarthritis of left hip [...] 07/28/2007 DIR RPR ANEURYSM ABDOMINAL AORTA 04/20/2011 [facility] EYLEA (AFLIBERCEPT) 2MG INTRAVITREAL INJECTION OD (RIGHT [...] Age of Onset Heart Mother age 60 [place], smoker None Father age 77 MVA Cataract [...] Left Ear: Tympanic membrane normal. Mouth/Throat: Lips: [place]. Mouth: Mucous membranes are moist. Pharynx: Oropharynx [...] Reflexes: Reflexes are normal and symmetric. Comments: Blue-Hallpike- vertigo elicited with head turned to the right however nystagmus was absent Assessment/Plan 1. Vertigo (R42) Nausea and vomiting, unspecified vomiting type (R11.2) Onset of vertigo occurred last evening when transitioning from a supine to sitting position. Described as room spinning, accompanied by nausea but no emesis. No associated otalgia, tinnitus, or recent upper respiratory infections. Neurological exam revealed no abnormalities. Blue-Hallpike maneuver elicited vertigo when head turned to the right but negative for nystagmus. Differential diagnosis includes BPPV and potential cerebrovascular accident (CVA) due to age and cardiac history. - Recommended immediate evaluation in the emergency department for further diagnostic workup, including CT scan of the brain to rule out CVA. Patient is stable for his daughter to transport him to [facility] ER - Discussed potential treatments for [...] which included preparing to see the patient, [id number] patient care, completing clinical documentation, performing a medically appropriate examination, counseling and educating the patient/family/caregiver, and care coordination (not separately reported). Prescription instructions reviewed with patient as applicable. Potential red flag symptoms discussed with the patient. Reviewed appropriate action plan to take if red flag symptoms occur. Patient agreeable to treatment plan. Asha Hernandez APRN.SUBMARINE ELEMENT COORDINATOR documented in this encounter [facility] 12-14-2024 Telephone encounter Note Pt's [...] scheduled for this morning. Debra Romero LPN [facility] 12-14-2024 Miscellaneous Notes Pt's daughter [...] Debra Romero LPN documented in this encounter [facility] 12-09-2024 Telephone encounter Note Prescription [...] Sravanthi Mace December 09, 2024 2:48 PM [facility] 12-09-2024 Miscellaneous Notes Prescription Refill [...] 2024 2:48 PM documented in this encounter [facility] 11-22-2024 Telephone encounter Note Patient [...] 12/27/2024 Please advise. Thank you. Vanessa Casillas. [facility] 11-22-2024 Miscellaneous Notes Patient has [...] you. Vanessa Casillas. documented in this encounter [facility] 11-08-2024 Telephone encounter Note Prescription [...] Sravanthi Mace November 08, 2024 8:43 AM [facility] 11-08-2024 Miscellaneous Notes Prescription Refill [...] 2024 8:43 AM documented in this encounter [facility] 10-12-2024 Telephone encounter Note Letter signed on Nurse's desk 2nd floor. [facility] 10-12-2024 Miscellaneous Notes Letter signed [...] Person calling: daughter: Jadyn Lew patient at: [phone] Was an appointment scheduled: No Closing statement: Zenaida Mace documented in this encounter [facility] 10-12-2024 Telephone encounter Note Okay for letter. 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 Please compose letter for me to review and sign Robel Onofre DO [facility] 10-08-2024 Telephone encounter Note Shy is calling Robel Onofre DO today to request Letter (Blindness confirmation for taxes) Patient has been identified by name and birthdate. Duration of symptoms: N/A Person calling: daughter: Jadyn Lew patient at: [phone] Was an appointment scheduled: No Closing statement: Zenaida Mace [facility] Work Phone: 10-08-2024 Telephone encounter Note For your information: Patient's insurance is now [employer]. Daughter unable to supply further information. Will call back with info to update namita. [facility] 10-08-2024 Miscellaneous Notes For your [...] 2024 8:15 AM documented in this encounter [facility] 10-08-2024 Telephone encounter Note Prescription [...] Zenaida Mace October 08, 2024 8:15 AM [facility] 09-02-2024 Telephone encounter Note Forms mailed to Jadyn's home address as requested. Copy placed in chart of forms. [facility] 09-02-2024 Miscellaneous Notes Forms mailed [...] it to her in the mail at [address] [place], [place] [address]. Shahla Sofia RN Type of form: Deaf and blind form Form received via walk in When form is completed, PhoneTina when complete.[phone] Form has been forwarded to Physician Desk: Dr. Kingston Kirk LPN documented in this encounter [facility] 09-01-2024 Telephone encounter Note Paperwork is complete now Robel Onofre DO [facility] 09-01-2024 Telephone encounter Note Daughter calls to ask if form could be completed today as she is unexpectedly leaving to go out of town late this afternoon. Notified daughter that I was uncertain that letter would be completed that quickly. Daughter voices understanding and requests if can't be completed today to please send it to her in the mail at [address] [place], [place] [address]. Shahla Sofia RN [facility] 08-30-2024 Telephone encounter Note Type of form: Deaf and blind form Form received via walk in When form is completed, PhoneTina when complete.[phone] Form has been forwarded to Physician Desk: Dr. Kingston Kirk LPN [facility] 08-11-2024 Telephone encounter Note Prescription [...] Lorrie Mace August 11, 2024 10:59 AM [facility] 08-11-2024 Miscellaneous Notes Prescription Refill [...] 2024 10:59 AM documented in this encounter [facility] 07-01-2024 Telephone encounter Note Patient notified and verbalized understanding. Kortney Bonner LPN [facility] 07-01-2024 Miscellaneous Notes Patient notified and verbalized understanding. Kortney Bonner LPN Please inform patient or daughters that his labs are overall stable. Urine has a little protein and is dark and concentrated. Needs to be drinking more water. Robel Onofre DO documented in this encounter [facility] 07-01-2024 Telephone encounter Note Please inform patient or daughters that his labs are overall stable. Urine has a little protein and is dark and concentrated. Needs to be drinking more water. Robel Onofre DO [facility] 06-30-2024 Note HNO ID: [id number] Author: ROBEL ONOFRE DO Service: ? Author [...] taking medications as prescribed. 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 Last labs in November Mood, overall stable, taking Sertraline. Helps to care for his with dementia. Daughter feels he is doing well. 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 Lower abdomen. BPH (benign prostatic hyperplasia) CAD (coronary artery disease) Diverticulosis of colon (without mention of hemorrhage) GERD (gastroesophageal reflux disease) Hyperlipidemia Hypertension Internal hemorrhoids without mention of complication Macular degeneration NSTEMI (non-ST elevated myocardial infarction) ([facility]) 10/28/2019 Osteoarthritis of left hip [...] 07/28/2007 DIR RPR ANEURYSM ABDOMINAL AORTA 04/20/2011 [place] EYLEA (AFLIBERCEPT) 2MG INTRAVITREAL INJECTION OD [...] Ne (more content not included)... [facility] 06-30-2024 History of Present illness Narrative CC: [...] taking medications as prescribed. 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 Last labs in November Mood, overall stable, taking Sertraline. Helps to care for his with dementia. Daughter feels he is doing well. 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 Lower abdomen. BPH (benign prostatic hyperplasia) CAD (coronary artery disease) Diverticulosis of colon (without mention of hemorrhage) GERD (gastroesophageal reflux disease) Hyperlipidemia Hypertension Internal hemorrhoids without mention of complication Macular degeneration NSTEMI (non-ST elevated myocardial infarction) ([facility]) 10/28/2019 Osteoarthritis of left hip [...] 07/28/2007 DIR RPR ANEURYSM ABDOMINAL AORTA 04/20/2011 [place] EYLEA (AFLIBERCEPT) 2MG INTRAVITREAL INJECTION OD [...] See patient instructions. Robel Onofre DO [address] [place] [address] documented in this encounter [facility] 05-04-2024 Telephone encounter Note Prescription [...] Zenaida Mace May 04, 2024 11:46 AM [facility] 05-04-2024 Miscellaneous Notes Prescription Refill [...] 2024 11:46 AM documented in this encounter [facility] 03-10-2024 History of Present illness [...] - SERTRALINE 25 MG TABLET Bessie Ambrocio APRN.SUBMARINE ELEMENT COORDINATOR Currently: Accompanied by daughter Zulema today. Mood-significant [...] Macular degeneration NSTEMI (non-ST elevated myocardial infarction) ([facility]) 10/28/2019 Osteoarthritis of left hip [...] 07/28/2007 DIR RPR ANEURYSM ABDOMINAL AORTA 04/20/2011 [facility] EYLEA (AFLIBERCEPT) 2MG INTRAVITREAL INJECTION OD (RIGHT [...] Age of Onset Heart Mother age 60 [place], smoker None Father age 77 MVA Cataract [...] in no acute distress, well-hydrated, well nourished. ALTURAS. Psychiatric: pleasant, cooperative. Health Maintenance List DTaP,Tdap,Td [...] - SERTRALINE 25 MG TABLET Bessie Ambrocio APRN.SUBMARINE ELEMENT COORDINATOR documented in this encounter [facility] 02-04-2024 History of Present illness [...] Date Acute bronchitis Aneurysm of abdominal aorta ([facility]) 04/20/2011. Lower abdomen. BPH (benign prostatic hyperplasia) CAD (coronary artery disease) Diverticulosis of colon (without mention of hemorrhage) GERD (gastroesophageal reflux disease) Hyperlipidemia Hypertension Internal hemorrhoids without mention of complication Macular degeneration NSTEMI (non-ST elevated myocardial infarction) ([facility]) 10/28/2019 Osteoarthritis of left hip [...] 07/28/2007 DIR RPR ANEURYSM ABDOMINAL AORTA 04/20/2011 [place] EYLEA (AFLIBERCEPT) 2MG INTRAVITREAL INJECTION OD [...] Age of Onset Heart Mother age 60 [place], smoker None Father age 77 MVA Cataract [...] in no acute distress, well-hydrated, well nourished. ALTURAS, significantly decreased sight.. Lungs: Lungs clear to [...] Bessie Ambrocio APRN.CNP\ documented in this encounter [facility] 01-26-2024 Telephone encounter Note Spoke to daughter patient was scheduled. Did make 40 min due to multiple concerns Abby Hardy MA [facility] 01-26-2024 Miscellaneous Notes Spoke to daughter patient was scheduled. Did make 40 min due to multiple concerns Abby Hardy MA Needs appointment to assess and discuss. Thank you, Cat Foote APRN.SUBMARINE ELEMENT COORDINATOR Patient's daughter Jadyn calling stating that patient has been having issues with depression that seems to be getting worse due to 's worsening symptoms of dementia. Jadyn states that Todd is ready to try medication for this and is wondering if something could be sent to pharmacy. Please call Jadyn back once addressed. documented in this encounter [facility] 01-26-2024 Telephone encounter Note Needs appointment to assess and discuss. Thank you, Cat Foote APRN.SUBMARINE ELEMENT COORDINATOR [facility] 01-26-2024 Telephone encounter Note Patient's daughter Jadyn calling stating that patient has been having issues with depression that seems to be getting worse due to 's worsening symptoms of dementia. Jadyn states that Todd is ready to try medication for this and is wondering if something could be sent to pharmacy. Please call Jadyn back once addressed. [facility] 01-16-2024 Telephone encounter Note TC to patients daughter Jadyn who is listed in chart to receive medical information. Jadyn verbalized understanding of providers message and has no questions at this time. MINA Myers [facility] 01-16-2024 Miscellaneous Notes TC to [...] Robel Onofre DO documented in this encounter [facility] 01-16-2024 Telephone encounter Note Please let him know that overall his labs look much better, improved from previous labs. Now alkaline phosphatase is normal. Renal and liver function is normal. Triglycerides are just slightly high which is related to fatty meat and sugars. Cut back on this if able Robel Onofre DO [facility] 01-01-2024 Telephone encounter Note Jadyn- Daughter notified and verbalized understanding. Marylu Villanueva MA [facility] 01-01-2024 Miscellaneous Notes Jadyn- Daughter [...] Robel Onofre DO documented in this encounter [facility] 01-01-2024 Telephone encounter Note Please [...] labs in 2 weeks. Robel Onofre DO [facility] 12-22-2023 History of Present illness [...] taking medications as prescribed. Continues to see Showplace Manager for followup Iron deficiency, eating iron rich [...] Macular degeneration NSTEMI (non-ST elevated myocardial infarction) ([facility]) 10/28/2019 Osteoarthritis of left hip [...] 07/28/2007 DIR RPR ANEURYSM ABDOMINAL AORTA 04/20/2011 [facility] EYLEA (AFLIBERCEPT) 2MG INTRAVITREAL INJECTION OD (RIGHT [...] Age of Onset Heart Mother age 60 [place], smoker None Father age 77 MVA Cataract [...] agreed with the plan. Robel Onofre DO [address] [place] [address] documented in this encounter [facility] 11-25-2023 Miscellaneous Notes Spoke with [...] you. Rodney Mace. documented in this encounter [facility] 11-12-2023 Miscellaneous Notes Patient has [...] you. Lidia Galvez. documented in this encounter [facility] 10-14-2023 Miscellaneous Notes Patient has [...] Marisela Lilly Pss. documented in this encounter [facility] 07-31-2023 Miscellaneous Notes KIRAN 06/13/23 Scheduled 12/22/23 Patient has been identified by name and date of : Yes Requested Prescriptions Pending Prescriptions Disp Refills tamsulosin (FLOMAX) 0.4 mg 180 capsule 3 Sig: Take 2 capsules by mouth once daily. RX INSTRUCTIONS: Patient aware RX will be sent to pharmacy. No need to notify patient. Lidia Galvez documented in this encounter [facility] 07-31-2023 Miscellaneous Notes Called pts daughter who is his wash operator gave information provided. She voices understanding. Asked this me mailed to home address,. Printed and sent to home address as asked. rx written in letters and sent to patient. Also printed if they need this as well Please inform Robel Onofre DO Last office visit - 06/13/2023 Patients wash operator calling asking if they can please get a script for a stair lift chair. Thank you documented in this encounter [facility] 07-25-2023 Miscellaneous Notes Kiran--06/13/23 Nov--12/22/23 [...] patient. Lakesha Mace documented in this encounter [facility] 06-14-2023 History of Present illness [...] taking medications as prescribed. 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 Last labs in November PAST MEDICAL HISTORY Diagnosis Date Acute bronchitis Aneurysm of abdominal aorta ([facility]) 04/20/2011. Lower abdomen. BPH (benign prostatic hyperplasia) CAD (coronary artery disease) Diverticulosis of colon (without mention of hemorrhage) GERD (gastroesophageal reflux disease) Hyperlipidemia Hypertension Internal hemorrhoids without mention of complication Macular degeneration NSTEMI (non-ST elevated myocardial infarction) ([facility]) 10/28/2019 Osteoarthritis of left hip [...] FEM PROSTC AGRFT/ALGRFT Left 11/26/2017 Dr. Sukhjinder Lewsi AVASTIN (BEVACIZUMAB) 1.25MG INTRAVITREAL INJECTION OD (RIGHT EYE) Right multiple COLONOSCOPY FLX DX W/COLLJ SPEC WHEN PFRMD 07/28/2007 DIR RPR ANEURYSM ABDOMINAL AORTA 04/20/2011 [facility] EYLEA (AFLIBERCEPT) 2MG INTRAVITREAL INJECTION OD (RIGHT [...] plan. See patient instructions. Robel Onofre DO [address] [place] [address] documented in this encounter [facility] 03-31-2023 Miscellaneous Notes Kiran--12/06/22 Nov--06/13/23 Last refill--lisinopril--10/07/22 90 with 1 refill Hctz--04/03/22 90 with 3 refills Last labs--12/06/22 Pharmacy verified in [facility] Patient has been identified by name and [...] Zenaida Zacarias Pss documented in this encounter [facility] 02-12-2023 Miscellaneous Notes Patient has [...] advise. Sravanthi Mace documented in this encounter [facility] 02-05-2023 Miscellaneous Notes Given Rx's to daughter. Order signed Robel Onofre DO Order and Handicap placard letter placed on provider's desk to sign. Nury Levy RN Order placed Robel Onofre DO Patient requesting prescription of Handicap placard. Patient has two cars not sure if he needs two scripts or just one? Please advise and call Zulema Bernstein when ready for pickle maker. documented in this encounter [facility] 12-25-2022 Miscellaneous Notes Patient's daughter [...] Robel Onofre DO documented in this encounter [facility] 12-06-2022 History of Present illness [...] taking medications as prescribed. Will be seeing Showplace Manager for follow up next week Iron deficiency, [...] Macular degeneration NSTEMI (non-ST elevated myocardial infarction) ([facility]) 10/28/2019 Osteoarthritis of left hip [...] 07/28/2007 DIR RPR ANEURYSM ABDOMINAL AORTA 04/20/2011 [facility] EYLEA (AFLIBERCEPT) 2MG INTRAVITREAL INJECTION OD (RIGHT [...] Age of Onset Heart Mother age 60 [place], smoker None Father age 77 MVA Cataract [...] with the plan. Robel Onofre DO [address] [place] [address] documented in this encounter [facility] 11-18-2022 Miscellaneous Notes Patient has [...] Rodney Kirk LPN documented in this encounter [facility] 10-17-2022 Miscellaneous Notes Last office visit: 07/03/22 F/u scheduled: 12/06/22 Mikaela Varghese Ma Pharmacy verified in [facility] Patient has been identified by name and [...] Zenaida Zacarias Pss documented in this encounter [facility] 10-07-2022 Miscellaneous Notes Kiran--07/03/22 Nov--12/06/22 [...] Lorrie Latham Pss documented in this encounter [facility] 09-10-2022 Miscellaneous Notes Patient has been identified by name and date of : Yes Requested Prescriptions Pending Prescriptions Disp Refills atenolol (TENORMIN) 50 mg tablet 90 tablet 3 Sig: Take 1 tablet by mouth once daily. RX INSTRUCTIONS: Patient aware RX will be sent to pharmacy. No need to notify patient. Lorrie Latham Pss documented in this encounter [facility] 07-24-2022 Miscellaneous Notes Patient has [...] you. Cat Trammell documented in this encounter [facility] 07-04-2022 Miscellaneous Notes Spoke with [...] Bessie Ambrocio APRN.CNP documented in this encounter [facility] 07-03-2022 History of Present illness Narrative Chief Complaint Patient presents with: [facility] F/U [facility] Todd Matamoros is a 82 year old male who presents here today for Above Complaints.. Today: Was admitted to [facility] on 06/13 for coffee ground emesis. [...] Macular degeneration NSTEMI (non-ST elevated myocardial infarction) ([facility]) 10/28/2019 Osteoarthritis of left hip [...] 07/28/2007 DIR RPR ANEURYSM ABDOMINAL AORTA 04/20/2011 [facility] EYLEA (AFLIBERCEPT) 2MG INTRAVITREAL INJECTION OD (RIGHT [...] Age of Onset Heart Mother age 60 [place], smoker None Father age 77 MVA Cataract [...] visit - Goal of BP <130/80 2. Maegan-Feldmna tear - ICD9: 530.7, ICD10: K22.6 Sx has resolved. Following with Dr. Tesfaye in general surgery. Bessie Ambrocio APRN.LEO documented in this encounter [facility] 06-27-2022 Miscellaneous Notes TC to [...] Robel Onofre DO documented in this encounter [facility] 06-21-2022 Miscellaneous Notes Pt daughter [...] having procedure. Please advise daughter Shy at [phone]. Thank you. documented in this encounter [facility] 06-17-2022 Miscellaneous Notes Noted. Good to hear. Thank you, Cat Lentz APRN.SUBMARINE ELEMENT COORDINATOR Spoke with pts son pt is with [...] sooner if able. Thank you, Cat Lentz APRN.SUBMARINE ELEMENT COORDINATOR Daughter calls and states pt had hernia surgery last 06-12-22. Pt was having complications and was admitted to [facility] 06-13-22 vomiting black coffee ground. and [...] Tiffanie Latham LPN documented in this encounter [facility] 06-17-2022 History of Present illness Narrative TRANSITION CARE MANAGEMENT (TCM) INITIAL CONTACT Ton Cylinder Inspector Outreach Provider Action/FYI: Pt having low blood pressure, daughter called in. Phone encounter made for this. Initial contact with patient post discharge, spoke to daughter. Patient identified by name and . TRANSITION CARE MANAGEMENT INITIAL OUTREACH DOCUMENTATION: Date of Outreach: 06/17/2022 Outreach Attempt 1: Contact Made Date of Discharge 06/08/2022 Some recent data might be hidden SUMMARY: -Pt discharged from [facility] on 06/08/22. -Admitted for: vomiting coffee [...] records from recent hospitalization: Records are at [facility] documented in this encounter [facility] 06-13-[address] 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 SECURITY CHIEF MUSEUM: Tamara Stinson APRN.SECURITY CHIEF MUSEUM Performed by: SARI Indications and Patient Condition [...] attempts at approach: 1 SIGNATURE: Tamara Stinson APRN.SECURITY CHIEF MUSEUM PATIENT NAME: Todd Matamoros DATE: June 12, 2022 TIME: 12:02 PM CSN: [id number] [facility] 06-12-2022 Surgical operation note OPERATIVE/PROCEDURE REPORT LOG ID: [id number] SURGERY/PROCEDURE DATE: 06/12/2022 INCISION/PROCEDURE START TIME: 12:00 PM INCISION CLOSE/PROCEDURE END TIME: 12:49 PM SURGEON(S)/PROCEDURALIST(S) AND MEDICAL TRANSCRIPTION RADIOLOGY(S): Surgeon(s) and Role: * Florencio Tesfaye MD - Primary Nurse Practitioner: Nuria Banks APRN.SUBMARINE ELEMENT COORDINATOR Physician Fiberglass Ski Maker: Indy Mosqueda PA-C SURGERY/PROCEDURE(S): Laparoscopic bilateral inguinal hernia repair with mesh ANESTHESIA: General SURGERY/PROCEDURE DETAILS: Patient was brought into the operating room. Placed in the supine position. Under excellent general anesthetic the abdomen was sterilely prepped and draped in the usual fashion. Local was injected supraumbilically. Dissection was carried down to the fascia the fascia was grasped with a Winthrop varies needle was placed inside the abdomen [...] the fascia the umbilical port with a [id number] stitch of 0 Vicryl. Skin incisions were closed with subcuticular stitches of 4-0 Monocryl. Steri-Strips were applied sterile dressings were applied patient tolerated the procedure well. Nuria Banks CNP was my program support assistant. She assisted with retraction, visualization and [...] TIME: 12:53 PM documented in this encounter [facility] 06-12-2022 History and physical note [...] Date Acute bronchitis Aneurysm of abdominal aorta ([facility]) 04/20/2011. Lower abdomen. BPH (benign prostatic hyperplasia) CAD (coronary artery disease) Diverticulosis of colon (without mention of hemorrhage) GERD (gastroesophageal reflux disease) Hyperlipidemia Hypertension Internal hemorrhoids without mention of complication Macular degeneration NSTEMI (non-ST elevated myocardial infarction) ([facility]) 10/28/2019 Osteoarthritis of left hip [...] 07/28/07 DIR RPR ANEURYSM ABDOMINAL AORTA 04/20/2011 [place] EYLEA (AFLIBERCEPT) 2MG INTRAVITREAL INJECTION OD [...] Age of Onset Heart Mother age 60 [place], smoker None Father age 77 MVA Cataract [...] right inguinal hernia repair with mesh - [id number] Anticipated Anesthetic: General Patient weight: Blood pressure 133/63, pulse (!) 59, temperature 36.4 C (97.6 F), weight 82 kg (180 lb 12.8 oz), SpO2 96 %. BMI: Body mass index is 28.32 kg/m . Planned antibiotic: Ancef 2gm IVPB crown ironer to OR SCDs needed - Yes Return [...] TIME: 11:11 AM documented in this encounter [facility] 06-07-2022 Miscellaneous Notes Received letter from Dr. Donald's office with notification to stop Plavix for 5 days prior to procedure but can continue aspirin therapy due to cardiac stent. TE from Erickson rasheed today notifying patient of instructions. Copy of letter given to Luiza Rivers CNP and original sent to flotation operator to scan. Gianna Branham LPN documented in this encounter [facility] 06-07-2022 Miscellaneous Notes Message left [...] 2022 10:44 AM documented in this encounter [facility] 06-04-2022 History of Past i llness Narrative Problem Noted Date Resolved Date Right inguinal hernia 06/04/2022 06/12/2022 documented as of this encounter (statuses as of 06/13/2022) [facility] History of Past illness Narrative* Problem Noted Date Resolved Date Right inguinal hernia 06/04/2022 06/12/2022 documented as of this encounter (statuses as of 06/13/2022) [facility] History of Past illness Narrative* Problem Noted Date Resolved Date Right inguinal hernia 06/04/2022 06/12/2022 documented as of this encounter (statuses as of 06/21/2022) [facility] History of Past illness Narrative* Problem Noted Date Resolved Date Right inguinal hernia 06/04/2022 06/12/2022 documented as of this encounter (statuses as of 06/24/2022) [facility] of Past illness Narrative* Problem Noted Date Resolved Date Right inguinal hernia 06/04/2022 06/12/2022 documented as of this encounter (statuses as of 06/25/2022) [facility] History of Past illness Narrative* Problem Noted Date Resolved Date Right inguinal hernia 06/04/2022 06/12/2022 documented as of this encounter (statuses as of 06/27/2022) [facility] History of Past illness Narrative* Problem Noted Date Resolved Date Right inguinal hernia 06/04/2022 06/12/2022 documented as of this encounter (statuses as of 07/03/2022) [facility] of Past illness Narrative* Problem Noted Date Resolved Date Right inguinal hernia 06/04/2022 06/12/2022 documented as of this encounter (statuses as of 07/04/2022) [facility] History of Past illness Narrative* Problem Noted Date Resolved Date Right inguinal hernia 06/04/2022 06/12/2022 documented as of this encounter (statuses as of 07/24/2022) [address]11-2022 History of Past illness Narrative* Problem Noted Date Resolved Date Right inguinal hernia 06/04/2022 06/12/2022 documented as of this encounter (statuses as of 09/11/2022) [address]-2022 History of Past illness Narrative* Problem Noted Date Resolved Date Right inguinal hernia 06/04/2022 06/12/2022 documented as of this encounter (statuses as of 10/08/2022) [facility] of Past illness Narrative* Problem Noted Date Resolved Date Right inguinal hernia 06/04/2022 06/12/2022 documented as of this encounter (statuses as of 10/17/2022) [facility] History of Past illness Narrative* Problem Noted Date Resolved Date Right inguinal hernia 06/04/2022 06/12/2022 documented as of this encounter (statuses as of 11/18/2022) [address]-2022 History of Past illness Narrative* Problem Noted Date Resolved Date Right inguinal hernia 06/04/2022 06/12/2022 documented as of this encounter (statuses as of 12/06/2022) [facility] of Past illness Narrative* Problem Noted Date Resolved Date Right inguinal hernia 06/04/2022 06/12/2022 documented as of this encounter (statuses as of 12/26/2022) [address]22 History of Past illness Narrative* Problem Noted Date Resolved Date Right inguinal hernia 06/04/2022 06/12/2022 documented as of this encounter (statuses as of 02/05/2023) [facility] of Past illness Narrative* Problem Noted Date Resolved Date Right inguinal hernia 06/04/2022 06/12/2022 documented as of this encounter (statuses as of 02/12/2023) [address]11-[address]22 History of Past illness Narrative* Problem Noted Date Diagnosed Date Resolved Date Right inguinal hernia 06/04/20222021 documented as of this encounter (statuses as of 03/31/2023) [facility] of Past illness Narrative* Problem Noted Date Diagnosed Date Resolved Date Right inguinal hernia 06/04/20222021 documented as of this encounter (statuses as of 06/18/2023) [address]22 History of Past illness Narrative* Problem Noted Date Diagnosed Date Resolved Date Right inguinal hernia 06/04/20222021 documented as of this encounter (statuses as of 07/25/2023) [address]22 History of Past illness Narrative* Problem Noted Date Diagnosed Date Resolved Date Right inguinal hernia 06/04/20222021 documented as of this encounter (statuses as of 07/31/2023) [facility] of Past illness Narrative* Problem Noted Date Diagnosed Date Resolved Date Right inguinal hernia 06/04/20222021 documented as of this encounter (statuses as of 07/31/2023) [facility] of Past illness Narrative* Problem Noted Date Diagnosed Date Resolved Date Right inguinal hernia 06/04/20222021 documented as of this encounter (statuses as of 10/15/2023) [facility] of [facility] illness Narrative* Problem Noted Date Diagnosed Date Resolved Date Right inguinal hernia 06/04/20222021 documented as of this encounter (statuses as of 11/13/2023) [facility] of Past illness Narrative* Problem Noted Date Diagnosed Date Resolved Date Right inguinal hernia 06/04/20222021 documented as of this encounter (statuses as of 11/24/2023) [facility] History of Past illness Narrative* Problem Noted Date Diagnosed Date Resolved Date Right inguinal hernia 06/04/20222021 documented as of this encounter (statuses as of 11/25/2023) [facility] History of Present illness Narrative* [...] Macular degeneration NSTEMI (non-ST elevated myocardial infarction) ([facility]) 10/28/2019 Osteoarthritis of left hip [...] 07/28/07 DIR RPR ANEURYSM ABDOMINAL AORTA 04/20/2011 [place] EYLEA (AFLIBERCEPT) 2MG INTRAVITREAL INJECTION OD [...] Age of Onset Heart Mother age 60 [place], smoker None Father age 77 MVA Cataract [...] - ICD9: 362.52, ICD10: H35.3230 F/u with Brass Finisher 11. Screening for prostate cancer - ICD9: [...] with the plan. Robel Onofre DO [address] [place] [address] [facility] History and physical note * Luiza Rivers APRN.SUBMARINE ELEMENT COORDINATOR - 05/31/2022 8:55 AM EDT HISTORY AND [...] fevers. Neurological: No history of TIA's, stroke, PART TIME RECEPTIONIST tumor, impaired sensorium, hemiplegia, paraplegia orquadraplegia. No neurological symptoms or problems. Respiratory: No history of current cough or dyspnea, or pneumonia in the past 6 weeks. No history of respiratory/pulmonary symptoms or problems. Cardiovascular: Positive for: abdominal aortic aneurysm (s/p repair), anticoagulation therapy (ASA, Plavix), CAD, hyperlipidemia (on rx), hypertension (on rx) and open heart surgery Patient's last office visit with machine fixer, [facility], The following tests and/or procedures were performed: cardiac stents. Negative for: arrhythmia, atrial fibrillation, chest pain, CHF, congenital heart defect, DVT/PE, recent [place], murmur/valvular heart disease and valve surgery. GI: [...] 07/28/07 DIR RPR ANEURYSM ABDOMINAL AORTA 04/20/2011 [facility] EYLEA (AFLIBERCEPT) 2MG INTRAVITREAL INJECTION OD (RIGHT [...] Age of Onset Heart Mother age 60 [place], smoker None Father age 77 MVA Cataract [...] or any previous visit (from the past 41853 hour(s)). Assessment BPH associated with nocturia Assessment: controlled on rx Coronary artery disease due to lipid rich plaque Assessment: s/p CABG and stent, daily statin, BB, and ASA therapy. Also on Plavix, AC letter faxed to machine fixer office. Follows [facility], last OV 09/2021 scanned into [employer]. Denies CP, palpitations or SOB Familial hypercholesterolemia [...] have a large neck STOP-Bang Score: 3 [id number] Score: Age: >=75 Sex: male CHF history: No Hypertension history: Yes Stroke/TIA/thromboembolism history: No Vascular disease history: Yes Diabetes history: No [id number] Score: 4 ARISCAT Score: Age: >80 Preoperative [...] and consent discussed: yes. Patient / Responsible Libertarian agrees to proceed: yes Patient / Surrogate agrees to blood products: blood products not planned Prepared for Surgery: optimally prepared for surgery, pending [see comment]. Labs AC letter faxed to [facility] CONSULTS: Patient does not require [...] 8:55 AM PAGER/CONTACT #: documented [facility] Instructions* Patient Instructions* Luiza Rivers APRN.CNP - 05/31/2022 8:55 AM EDT PATIENT PREOPERATIVE INSTRUCTIONS Florencio Tesfaye MD has scheduled you for your procedure at this surgery center: [facility]: [phone] -- [address] [address]. Please read below carefully for your personalized [...] Procedures: - YOU MUST HAVE A RESPONSIBLE MAIL DELIVERY SUPERVISOR TAKE YOU HOME. A BRIDGE SAW OPERATOR OR RETAIL COVERAGE MERCHANDISER CANNOT BE MADE A RESPONSIBLE MAIL DELIVERY SUPERVISOR. - We recommend that a responsible person [...] Advance Directive, please fax a copy to [phone] or email to for it to be [...] day. Luiza Rivers APRN.LEO documented [facility] History of Present illness Narrative* [...] Macular degeneration NSTEMI (non-ST elevated myocardial infarction) ([facility]) 10/28/2019 Osteoarthritis of left hip [...] 07/28/07 DIR RPR ANEURYSM ABDOMINAL AORTA 04/20/2011 [place] EYLEA (AFLIBERCEPT) 2MG INTRAVITREAL INJECTION OD [...] Age of Onset Heart Mother age 60 [place], smoker None Father age 77 MVA Cataract [...] benefits, anticipated outcomesand possible complications were mentioned. [facility] that all hernia repair surgery [...] right inguinal hernia repair with mesh - [id number] Anticipated Anesthetic: General Patient weight: Blood pressure 133/63, pulse (!) 59, temperature 36.4 C (97.6 F), weight 82 kg (180lb 12.8 oz), SpO2 96 %. BMI: Body mass index is 28.32 kg/m . Planned antibiotic: Ancef 2gm IVPB crown ironer to OR SCDs needed - Yes Return [...] Florencio Tesfaye III, MD [facility] Miscellaneous Notes* Telephone Encounter - [...] patient. Delma Alatorre Pss documented in [facility] encounterL[facility]06[facility] Miscellaneous Notes* Telephone Encounter - [...] notify patient. Haritha Arias documented in [facility] encounter[facility]06[facility] Miscellaneous Notes* Telephone Encounter - [...] week. Bessie Ambrocio APRN.LEO documented in [facility] encounter[facility]06[facility] Miscellaneous Notes* Telephone Encounter - [...] declined. Shahla Sofia RN documented in this encounterL[facility]05[facility] History of Present illness Narrative* [...] Date Acute bronchitis Aneurysm of abdominal aorta ([facility]) 04/20/2011. Lower abdomen. BPH (benign prostatic hyperplasia) CAD (coronary artery disease) Diverticulosis of colon (without mention of hemorrhage) GERD (gastroesophageal reflux disease) Hyperlipidemia Hypertension Internal hemorrhoids without mention of complication Macular degeneration NSTEMI (non-ST elevated myocardial infarction) ([facility]) 10/28/2019 Osteoarthritis of left hip [...] 07/28/07 DIR RPR ANEURYSM ABDOMINAL AORTA 04/20/2011 [place] EYLEA (AFLIBERCEPT) 2MG INTRAVITREAL INJECTION OD [...] Age of Onset Heart Mother age 60 [place], smoker None Father age 77 MVA Cataract Father No Known Problems Sister No Known Problems Brother No Known Problems Sister No Known Problems Sister No Known Problems Sister Coronary Artery Disease Brother Coronary Artery Disease Brother REVIEW OF SYMPTOMS: The review of systems data was entered by the nurse and reviewed by ks Nursing Notes: Bhavna Anne RN 01/11/2022 8:09 [...] Florencio Tesfaye III, MD documented in [facility] encounterL[facility] Nurse Note* Bhavna Anne RN [...] 07/28/2007 Bhavna Anne RN documented in [facility] encounterL[facility]05[facility] Miscellaneous Notes* Telephone Encounter - [...] Thanks Robel Onofre DO documented in this encounterL[facility]05-[facility]-2022 Miscellaneous Notes* Telephone Encounter - Jessica Moon Ma - 12/27/2021 2:48 PM EDT Faxed to [facility]. * Telephone Encounter - Bessie Ambrocio APRN.CNP - 12/27/2021 2:44 PM EDT New order placed per below request. Bessie Ambrocio APRN.CNP * Telephone Encounter - Torie King LPN - 12/27/2021 1:38 PM EDT [facility] foundry technician Ju is calling to report if you are ruling out inguinal hernia the do not do this with an ultrasound at [facility]. It would be CT abd/pelvis with contrast. You can fax them a new order for CT. documented in this encounterLicking [facility]05-[facility]-2022 Miscellaneous Notes* Telephone Encounter - Nury Levy RN - 12/27/2021 8:13 AM EDT Patient's daughter calls and is requesting that ultrasound orders be faxed to [facility]. Orders faxed as requested. Nury Levy RN documented in this encounterLicking [facility] Hospital05-04-[facility]22 History of Present illness Narrative* [...] Macular degeneration NSTEMI (non-ST elevated myocardial infarction) ([facility]) 10/28/2019 Osteoarthritis of left hip [...] 07/28/07 DIR RPR ANEURYSM ABDOMINAL AORTA 04/20/2011 [facility] EYLEA (AFLIBERCEPT) 2MG INTRAVITREAL INJECTION OD (RIGHT [...] Age of Onset Heart Mother age 60 [place], smoker None Father age 77 MVA Cataract [...] LTD Bessie Ambrocio APRN.CNP documented in this encounterLicking [facility]05-04-2022 Miscellaneous Notes* Telephone Encounter - [...] to this. Scheduled same day appt with [employer] for evaluation. documented in this encounterLicking [facility] Hospital04-20-[facility]22 History of Present illness Narrative* [...] Macular degeneration NSTEMI (non-ST elevated myocardial infarction) ([facility]) 10/28/2019 Osteoarthritis of left hip [...] 07/28/07 DIR RPR ANEURYSM ABDOMINAL AORTA 04/20/2011 [facility] EYLEA (AFLIBERCEPT) 2MG INTRAVITREAL INJECTION OD (RIGHT [...] 414.3, ICD10: I25.10, I25.83 - f/u with Showplace Manager as scheduled. stable 6. Hypertension, essential - [...] See patient instructions. 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, 1996 chronic Stented coronary artery October 28, 2019 [facility] Work Phone: Evaluation note* Diagnosis Presence of [...] hypertension Actinic keratosis [facility] Diagnosis Right inguinal pain- Primary Abdominal pain, right lower quadrant Inguinal bulge Abdominal or pelvic swelling, mass or lump, unspecified site documented in this encounter [facility]* Diagnosis Right groin pain- Primary Abdominal pain, right lower quadrant Localized enlarged lymph nodes Enlargement of lymph nodes documented in this [facility]* Diagnosis Bilateral inguinal hernia without obstruction or gangrene, recurrence not specified- Primary documented in this [facility]* Diagnosis Bilateral inguinal hernia without obstruction or gangrene, recurrence not specified documented in this encounter [facility]* Diagnosis Vitamin D deficiency- Primary Unspecified vitamin D deficiency Vitamin B12 deficiency Other B-complex deficiencies Elevated serum creatinine Other nonspecific findings on examination of blood documented in this encounter [facility] note* Diagnosis Right inguinal hernia- Primary Inguinal hernia without mention of obstruction or gangrene, unilateral or unspecified, (not specified as recurrent) Right inguinal hernia Inguinal hernia without mention of obstruction or gangrene, unilateral or unspecified, (not specified as recurrent) documented in this encounter [facility] note* Diagnosis Pre-operative examination- Primary Preoperative examination, [...] specified as recurrent) documented in this encounter [facility]* Diagnosis Hypertension, essential- Primary Unspecified [...] specified as recurrent) documented in this [facility]* Diagnosis Right inguinal hernia- Primary Inguinal hernia without mention of obstruction or gangrene, unilateral or unspecified, (not specified as recurrent) Right inguinal hernia Inguinal hernia without mention of obstruction or gangrene, unilateral or unspecified, (not specified as recurrent) documented in this encounter [facility]* Diagnosis Onset Date Resolution Status Upper GI bleed acute [facility] Work Phone: Evaluation note* Diagnosis Onset Date Resolution Status Acute blood loss anemia acut e PEPE (acute kidney injury) ac lobito Erosive esophagitis acute Leukocytosis acute Status post bilateral inguinal hernia repair acute Upper GI bleed acute Urinary retention acute [facility] Work Phone: Evaluation note* Diagnosis Hypotension, unspecified hypotension type- Primary documented in this encounter [facility]* Diagnosis Hypertension, essential- Primary Unspecified essential hypertension 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 [facility] Diagnosis Vitamin D deficiency Unspecified vitamin D deficiency Vitamin B12 deficiency Other B-complex deficiencies documented in this encounter [facility] note* Diagnosis Vitamin D deficiency- Primary Unspecified [...] deficiency anemia type documented in this encounter [facility] note* Diagnosis Macular degeneration of both eyes, unspecified type- Primary [facility] Vitamin D deficiency Unspecified vitamin D deficiency Vitamin B12 deficiency Other B-complex deficiencies [facility] Diagnosis Hypertension, essential- Primary [...] neoplasm of prostate [facility] Diagnosis Other eczema [facility] Diagnosis Vitamin D deficiency Unspecified vitamin D deficiency Vitamin B12 deficiency Other B-complex deficiencies [facility] Diagnosis Vitamin D deficiency Unspecified vitamin D deficiency Vitamin B12 deficiency Other B-complex deficiencies [facility] Vitamin D deficiency Unspecified vitamin D deficiency [facility] Diagnosis Hypertension, essential- [...] unspecified Actinic keratosis [facility] Diagnosis Elevated alkaline phosphatase level- Primary Other nonspecific abnormal serum enzyme levels Elevated serum creatinine Other nonspecific findings on examination of blood Thrombocytopenia (HCC) Thrombocytopenia, unspecified [facility] Diagnosis Feelings of worthlessness- Primary Stress Other psychological or physical stress, not elsewhere classified Lack of motivation Other depression Macular degeneration of both eyes, unspecified type Bilateral hearing loss, unspecified hearing loss type [facility] Diagnosis Feelings of worthlessness- Primary Stress Other psychological or physical stress, not elsewhere classified Lack of motivation Other depression documented in this encounter [facility]* Diagnosis Pre-operative examination- Primary Preoperative [...] this encounter [facility]* Diagnosis Pre-operative examination- Primary Preoperative [...] glucose Other depression documented in this encounter [facility] note* Diagnosis Pre-operative examination- Primary Preoperative examination, [...] Other B-complex deficiencies documented in this encounter [facility] note* Diagnosis Pre-operative examination- Primary Preoperative examination, [...] motivation Other depression documented in this encounter [facility] note* Diagnosis Pre-operative examination- Primary Preoperative examination, [...] vitamin D deficiency documented in this encounter [facility] noteNo assessment information availableWCleveland Clinic Med[facility] Work Phone: Evaluation note* Diagnosis Pre-operative examination- [...] Abnormality of gait documented in this encounter [facility] note* Diagnosis Pre-operative examination- Primary Preoperative examination, [...] vertigo), unspecified laterality [facility] Diagnosis Pre-operative examination- [...] Other B-complex deficiencies [facility] Diagnosis Pre-operative examination- Primary Preoperative [...] motivation Other depression [facility] CT [facility]ogram head and neck only mild plaque noted right internal carotid. No other acute findings. This is not causing her symptoms. EKG labs stable. Use meclizine as needed. Follow-up with her doctor. If Symptoms recur or worsens, return to ED for reevaluation.[facility] Work Phone: Reason for referral (narrative)* Diagnostic Procedure Only (Urgent) - Pending Review Specialty Diagnoses / Procedures Referred By Bala sheridan Referred To Contact US IMAGING Diagnoses Right inguinal pain Inguinal bulge Procedures US PELVIS LTD US PELVIC NONOBSTETRIC IMAGE DCMTN LIMITED/F/U Bessie Ambrocio, GIA.SUBMARINE ELEMENT COORDINATOR [address] [place] [address] Us Imaging Referral ID Status Reason Start Date Expiration Date Visits Requested Visits Authorized [id number] Pending Review Auto-Generat ed Referral 12/26/2021 01/25/2023 1 1 [facility] (narrative)No reason for referral information availableWCleveland Clinic Med[facility] Work Phone: Instructions Instruction Description Start Date Patient advised to follow-up with Primary Care Physician for BMI management. Advance Directives No Advanced Directives Records FoundDocuments on File Type Date Recorded Patient Lithostripper Expl anation ACP-Advance Directive ACP-Power of Spiral Winding Machine Helper Advance Directive Response Recorded Date/ Time Living Will Yes November 04, 2019 8:26am Power of Spiral Winding Machine Helper Yes November 03 8:26am Advance Directive Response Recorded Date/ Time Name of Medical Power of Spiral Winding Machine Helper Thierno Matamoros June 13, 2022 5:30pm Living Will Yes June 13 5:30pm Power of Spiral Winding Machine Helper Yes June 13, 2022 5:30pm Advance Directive Response Recorded Date/ Time Name of Medical Power of Spiral Winding Machine Helper Jadyn Peralta, Thierno Matamoros and Shy Bernstein June 13, 2022 8:21pm Living Will Yes June 13 8:21pm Power of Spiral Winding Machine Helper Yes June 13, 2022 8:21pm Advance Directive Response Recorded Date/ Time Do you have a Healthcare Power of Spiral Winding Machine Helper? No December 14, 2024 12:42pm Advance Directive Response Recorded Date/ Time Living Will Yes June 13 8:21pm Do you have a Healthcare Power of Spiral Winding Machine Helper? Yes June 13, 2022 8:21pm Do you have a Healthcare Power of Spiral Winding Machine Helper? No December 14, 2024 12:42pm Assessments Diagnosis [...] Bypass Graft John Clark MD [address] [facility] [address] [place] [address] Status Reason Specialty Diagnoses / Procedures Referre d By Contact Referred To Contact Open Radiology Diagnoses Hx of endovascular stent graft for abdominal aortic aneurysm AAA (abdominal aortic aneurysm) without rupture (HCC) Aftercare following surgery of the circulatory system Procedures VL AORTA/IVC/ILIAC/BYPASS GRAFT COMPLETE Shailesh Stone PA [address] [place] [address] Specialty Diagnoses / Procedures Referred By Bala sheridan Referred To Contact CT IMAGING Diagnoses Localized enlarged lymph nodes Right groin pain Procedures CT ABD/PEL W IVCON CT ABD & PELVIS W/CONTRAST Robel Onofre, DO [address] [place] [address] Ct Imaging Referral ID Status Reason Start Date Expiration Date Visits Requested Visits Authorized [id number] Pending Review Auto-Generat ed Referral 12/27/2021 01/26/2023 1 1 Specialty Diagnoses / Procedures Referred By Bala sheridan Referred To Contact General Surgery Diagnoses Bilateral inguinal hernia without obstruction or gangrene, recurrence not specified Procedures CONSULT TO GENERAL SURGERY OFFICE/OUTPATIENT [facility] 60-74 MINUTES Robel Onofre, DO [address] [place] [address] Referral ID Status Reason Start Date Expiration Date Visits Requested Visits Authorized [id number] Authorized PCP Requested Referral 01/02/2022 01/02/2023 1 [...] section and content) DATE CREATED AUTHOR 06/22/2021 [facility] DATE CREATED AUTHOR AUTHOR'S ORGANIZ ATION 06/17/2022 [facility] DATE CREATED AUTHOR AUTHOR'S ORGANIZ ATION 06/27/2025 [facility] DATE CREATED AUTHOR AUTHOR'S ORGANIZ ATION 06/28/2025 [facility] DATE CREATED AUTHOR AUTHOR'S ORGANIZ ATION 07/01/2025 [facility] Source Comments (unrecognize d section and content) In the event this informatio n is protected by the Federal Confidentiality of Alcohol and Drug Abuse Patient Records regulations: The Federal rules restrict any use of the information to criminally investigate or prosecute any alcohol or drug abuse patient.[facility] HospitalIn the event this information is protected by the Federal Confidentiality of Alcohol and Drug Abuse Patient Records regulations: The Federal rules restrict any use of the information to criminally investigate or prosecute any alcohol or drug abuse patient.[facility] HospitalIn the event this information is protected by the Federal Confidentiality of Alcohol and Drug Abuse Patient Records regulations: The Federal rules restrict any use of the information to criminally investigate or prosecute any alcohol or drug abuse patient.[facility] HospitalIn the event this information is protected by the Federal Confidentiality of Alcohol and Drug Abuse Patient Records regulations: The Federal rules restrict any use of the information to criminally investigate or prosecute any alcohol or drug abuse patient.[facility] HospitalIn the event this information is protected by the Federal Confidentiality of Alcohol and Drug Abuse Patient Records regulations: The Federal rules restrict any use of the information to criminally investigate or prosecute any alcohol or drug abuse patient.[facility] HospitalIn the event this information is protected by the Federal Confidentiality of Alcohol and Drug Abuse Patient Records regulations: The Federal rules restrict any use of the information to criminally investigate or prosecute any alcohol or drug abuse patient.[facility] HospitalIn the event this information is protected by the Federal Confidentiality of Alcohol and Drug Abuse Patient Records regulations: The Federal rules restrict any use of the information to criminally investigate or prosecute any alcohol or drug abuse patient.[facility] HospitalIn the event this information is protected by the Federal Confidentiality of Alcohol and Drug Abuse Patient Records regulations: The Federal rules restrict any use of the information to criminally investigate or prosecute any alcohol or drug abuse patient.[facility] HospitalIn the event this information is protected by the Federal Confidentiality of Alcohol and Drug Abuse Patient Records regulations: The Federal rules restrict any use of the information to criminally investigate or prosecute any alcohol or drug abuse patient.[facility] HospitalIn the event this information is protected by the Federal Confidentiality of Alcohol and Drug Abuse Patient Records regulations: The Federal rules restrict any use of the information to criminally investigate or prosecute any alcohol or drug abuse patient.[facility] HospitalIn the event this information is protected by the Federal Confidentiality of Alcohol and Drug Abuse Patient Records regulations: The Federal rules restrict any use of the information to criminally investigate or prosecute any alcohol or drug abuse patient.[facility] HospitalIn the event this information is protected by the Federal Confidentiality of Alcohol and Drug Abuse Patient Records regulations: The Federal rules restrict any use of the information to criminally investigate or prosecute any alcohol or drug abuse patient.[facility] HospitalIn the event this information is protected by the Federal Confidentiality of Alcohol and Drug Abuse Patient Records regulations: The Federal rules restrict any use of the information to criminally investigate or prosecute any alcohol or drug abuse patient.[facility] HospitalIn the event this information is protected by the Federal Confidentiality of Alcohol and Drug Abuse Patient Records regulations: The Federal rules restrict any use of the information to criminally investigate or prosecute any alcohol or drug abuse patient.[facility] HospitalIn the event this information is protected by the Federal Confidentiality of Alcohol and Drug Abuse Patient Records regulations: The Federal rules restrict any use of the information to criminally investigate or prosecute any alcohol or drug abuse patient.[facility] HospitalIn the event this information is protected by the Federal Confidentiality of Alcohol and Drug Abuse Patient Records regulations: The Federal rules restrict any use of the information to criminally investigate or prosecute any alcohol or drug abuse patient.[facility] HospitalIn the event this information is protected by the Federal Confidentiality of Alcohol and Drug Abuse Patient Records regulations: The Federal rules restrict any use of the information to criminally investigate or prosecute any alcohol or drug abuse patient.[facility] HospitalIn the event this information is protected by the Federal Confidentiality of Alcohol and Drug Abuse Patient Records regulations: The Federal rules restrict any use of the information to criminally investigate or prosecute any alcohol or drug abuse patient.[facility] HospitalIn the event this information is protected by the Federal Confidentiality of Alcohol and Drug Abuse Patient Records regulations: The Federal rules restrict any use of the information to criminally investigate or prosecute any alcohol or drug abuse patient.[facility] HospitalIn the event this information is protected by the Federal Confidentiality of Alcohol and Drug Abuse Patient Records regulations: The Federal rules restrict any use of the information to criminally investigate or prosecute any alcohol or drug abuse patient.[facility] HospitalIn the event this information is protected by the Federal Confidentiality of Alcohol and Drug Abuse Patient Records regulations: The Federal rules restrict any use of the information to criminally investigate or prosecute any alcohol or drug abuse patient.[facility] HospitalIn the event this information is protected by the Federal Confidentiality of Alcohol and Drug Abuse Patient Records regulations: The Federal rules restrict any use of the information to criminally investigate or prosecute any alcohol or drug abuse patient.[facility] HospitalIn the event this information is protected by the Federal Confidentiality of Alcohol and Drug Abuse Patient Records regulations: The Federal rules restrict any use of the information to criminally investigate or prosecute any alcohol or drug abuse patient.[facility] HospitalIn the event this information is protected by the Federal Confidentiality of Alcohol and Drug Abuse Patient Records regulations: The Federal rules restrict any use of the information to criminally investigate or prosecute any alcohol or drug abuse patient.[facility] HospitalIn the event this information is protected by the Federal Confidentiality of Alcohol and Drug Abuse Patient Records regulations: The Federal rules restrict any use of the information to criminally investigate or prosecute any alcohol or drug abuse patient.[facility] HospitalIn the event this information is protected by the Federal Confidentiality of Alcohol and Drug Abuse Patient Records regulations: The Federal rules restrict any use of the information to criminally investigate or prosecute any alcohol or drug abuse patient.[facility] HospitalIn the event this information is protected by the Federal Confidentiality of Alcohol and Drug Abuse Patient Records regulations: The Federal rules restrict any use of the information to criminally investigate or prosecute any alcohol or drug abuse patient.[facility] HospitalIn the event this information is protected by the Federal Confidentiality of Alcohol and Drug Abuse Patient Records regulations: The Federal rules restrict any use of the information to criminally investigate or prosecute any alcohol or drug abuse patient.[facility] HospitalIn the event this information is protected by the Federal Confidentiality of Alcohol and Drug Abuse Patient Records regulations: The Federal rules restrict any use of the information to criminally investigate or prosecute any alcohol or drug abuse patient.[facility] HospitalIn the event this information is protected by the Federal Confidentiality of Alcohol and Drug Abuse Patient Records regulations: The Federal rules restrict any use of the information to criminally investigate or prosecute any alcohol or drug abuse patient.[facility] HospitalIn the event this information is protected by the Federal Confidentiality of Alcohol and Drug Abuse Patient Records regulations: The Federal rules restrict any use of the information to criminally investigate or prosecute any alcohol or drug abuse patient.[facility] HospitalIn the event this information is protected by the Federal Confidentiality of Alcohol and Drug Abuse Patient Records regulations: The Federal rules restrict any use of the information to criminally investigate or prosecute any alcohol or drug abuse patient.[facility] HospitalIn the event this information is protected by the Federal Confidentiality of Alcohol and Drug Abuse Patient Records regulations: The Federal rules restrict any use of the information to criminally investigate or prosecute any alcohol or drug abuse patient.[facility] HospitalIn the event this information is protected by the Federal Confidentiality of Alcohol and Drug Abuse Patient Records regulations: The Federal rules restrict any use of the information to criminally investigate or prosecute any alcohol or drug abuse patient.[facility] HospitalIn the event this information is protected by the Federal Confidentiality of Alcohol and Drug Abuse Patient Records regulations: The Federal rules restrict any use of the information to criminally investigate or prosecute any alcohol or drug abuse patient.[facility] HospitalIn the event this information is protected by the Federal Confidentiality of Alcohol and Drug Abuse Patient Records regulations: The Federal rules restrict any use of the information to criminally investigate or prosecute any alcohol or drug abuse patient.[facility] HospitalIn the event this information is protected by the Federal Confidentiality of Alcohol and Drug Abuse Patient Records regulations: The Federal rules restrict any use of the information to criminally investigate or prosecute any alcohol or drug abuse patient.[facility] HospitalIn the event this information is protected by the Federal Confidentiality of Alcohol and Drug Abuse Patient Records regulations: The Federal rules restrict any use of the information to criminally investigate or prosecute any alcohol or drug abuse patient.[facility] HospitalIn the event this information is protected by the Federal Confidentiality of Alcohol and Drug Abuse Patient Records regulations: The Federal rules restrict any use of the information to criminally investigate or prosecute any alcohol or drug abuse patient.[facility] HospitalIn the event this information is protected by the Federal Confidentiality of Alcohol and Drug Abuse Patient Records regulations: The Federal rules restrict any use of the information to criminally investigate or prosecute any alcohol or drug abuse patient.[facility] HospitalIn the event this information is protected by the Federal Confidentiality of Alcohol and Drug Abuse Patient Records regulations: The Federal rules restrict any use of the information to criminally investigate or prosecute any alcohol or drug abuse patient.[facility] HospitalIn the event this information is protected by the Federal Confidentiality of Alcohol and Drug Abuse Patient Records regulations: The Federal rules restrict any use of the information to criminally investigate or prosecute any alcohol or drug abuse patient.[facility] HospitalIn the event this information is protected by the Federal Confidentiality of Alcohol and Drug Abuse Patient Records regulations: The Federal rules restrict any use of the information to criminally investigate or prosecute any alcohol or drug abuse patient.[facility] HospitalIn the event this information is protected by the Federal Confidentiality of Alcohol and Drug Abuse Patient Records regulations: The Federal rules restrict any use of the information to criminally investigate or prosecute any alcohol or drug abuse patient.[facility] HospitalIn the event this information is protected by the Federal Confidentiality of Alcohol and Drug Abuse Patient Records regulations: The Federal rules restrict any use of the information to criminally investigate or prosecute any alcohol or drug abuse patient.[facility] HospitalIn the event this information is protected by the Federal Confidentiality of Alcohol and Drug Abuse Patient Records regulations: The Federal rules restrict any use of the information to criminally investigate or prosecute any alcohol or drug abuse patient.[facility] HospitalIn the event this information is protected by the Federal Confidentiality of Alcohol and Drug Abuse Patient Records regulations: The Federal rules restrict any use of the information to criminally investigate or prosecute any alcohol or drug abuse patient.[facility] HospitalIn the event this information is protected by the Federal Confidentiality of Alcohol and Drug Abuse Patient Records regulations: The Federal rules restrict any use of the information to criminally investigate or prosecute any alcohol or drug abuse patient.[facility] HospitalIn the event this information is protected by the Federal Confidentiality of Alcohol and Drug Abuse Patient Records regulations: The Federal rules restrict any use of the information to criminally investigate or prosecute any alcohol or drug abuse patient.[facility] HospitalIn the event this information is protected by the Federal Confidentiality of Alcohol and Drug Abuse Patient Records regulations: The Federal rules restrict any use of the information to criminally investigate or prosecute any alcohol or drug abuse patient.[facility] HospitalIn the event this information is protected by the Federal Confidentiality of Alcohol and Drug Abuse Patient Records regulations: The Federal rules restrict any use of the information to criminally investigate or prosecute any alcohol or drug abuse patient.[facility] HospitalIn the event this information is protected by the Federal Confidentiality of Alcohol and Drug Abuse Patient Records regulations: The Federal rules restrict any use of the information to criminally investigate or prosecute any alcohol or drug abuse patient.[facility] HospitalIn the event this information is protected by the Federal Confidentiality of Alcohol and Drug Abuse Patient Records regulations: The Federal rules restrict any use of the information to criminally investigate or prosecute any alcohol or drug abuse patient.[facility] HospitalIn the event this information is protected by the Federal Confidentiality of Alcohol and Drug Abuse Patient Records regulations: The Federal rules restrict any use of the information to criminally investigate or prosecute any alcohol or drug abuse patient.[facility] HospitalIn the event this information is protected by the Federal Confidentiality of Alcohol and Drug Abuse Patient Records regulations: The Federal rules restrict any use of the information to criminally investigate or prosecute any alcohol or drug abuse patient.[facility] HospitalIn the event this information is protected by the Federal Confidentiality of Alcohol and Drug Abuse Patient Records regulations: The Federal rules restrict any use of the information to criminally investigate or prosecute any alcohol or drug abuse patient.[facility] HospitalIn the event this information is protected by the Federal Confidentiality of Alcohol and Drug Abuse Patient Records regulations: The Federal rules restrict any use of the information to criminally investigate or prosecute any alcohol or drug abuse patient.[facility] HospitalIn the event this information is protected by the Federal Confidentiality of Alcohol and Drug Abuse Patient Records regulations: The Federal rules restrict any use of the information to criminally investigate or prosecute any alcohol or drug abuse patient.[facility] HospitalIn the event this information is protected by the Federal Confidentiality of Alcohol and Drug Abuse Patient Records regulations: The Federal rules restrict any use of the information to criminally investigate or prosecute any alcohol or drug abuse patient.[facility] HospitalIn the event this information is protected by the Federal Confidentiality of Alcohol and Drug Abuse Patient Records regulations: The Federal rules restrict any use of the information to criminally investigate or prosecute any alcohol or drug abuse patient.[facility] HospitalIn the event this information is protected by the Federal Confidentiality of Alcohol and Drug Abuse Patient Records regulations: The Federal rules restrict any use of the information to criminally investigate or prosecute any alcohol or drug abuse patient.[facility] HospitalIn the event this information is protected by the Federal Confidentiality of Alcohol and Drug Abuse Patient Records regulations: The Federal rules restrict any use of the information to criminally investigate or prosecute any alcohol or drug abuse patient.[facility] HospitalIn the event this information is protected by the Federal Confidentiality of Alcohol and Drug Abuse Patient Records regulations: The Federal rules restrict any use of the information to criminally investigate or prosecute any alcohol or drug abuse patient.[facility] HospitalIn the event this information is protected by the Federal Confidentiality of Alcohol and Drug Abuse Patient Records regulations: The Federal rules restrict any use of the information to criminally investigate or prosecute any alcohol or drug abuse patient.[facility] HospitalIn the event this information is protected by the Federal Confidentiality of Alcohol and Drug Abuse Patient Records regulations: The Federal rules restrict any use of the information to criminally investigate or prosecute any alcohol or drug abuse patient.[facility] Reason for Visit (unrecogniz ed section and content) Reason Comments 6 Month Exam Reason Comments Right groin pain Reason Comments hernia right groin area Reason Comments Faxed orders Reason Comments Change Of Order [facility] radiology dept. Reason Comments Results Appointment Reason Comments Consult bilateral inguinal h ernia Specialty Diagnoses / Procedures Referred By Contac t Referred To Contact General Surgery Diagnoses Bilateral inguinal hernia without obstruction or gangrene, recurrence not specified Procedures CONSULT TO GENERAL SURGERY OFFICE/OUTPATIENT NEW HIGH MDM 60-74 MINUTES Robel Onofre, DO [address] [place] [address] Referral ID Status Reason Start Date Expiration Date V isits Requested Visits Authorized [id number] Closed PCP Requested Referral 01/02/2022 01/02/2023 1 [...] INGUINAL HERNIA W/ MESH [facility] [address] [place] [address] Referral ID Status Reason Start Date Expiration Date Visits Re quested Visits Authorized [id number] 1 1 Reason Comments Orders Reason Comments [...] Care Teams (unrecognized sec tion and content) Video System Repairer Relationship Specialty Start Date End Date Robel Onofre, DO [address] [place] [address] PCP - General Family Practice 10/01/19 Video System Repairer Relationship Specialty Start Date End Date Robel Onofre, DO [address] [place] [address] PCP - General Family Practice 10/01/19 Video System Repairer Relationship Specialty Start Date End Date Robel Onofre, DO [address] [place] [address] PCP - General Family Practice 10/01/19 Video System Repairer Relationship Specialty Start Date End Date Robel Onofre, DO [address] [place] [address] PCP - General Family Practice 10/01/19 Video System Repairer Relationship Specialty Start Date End Date Robel Onofre, DO [address] [place] [address] PCP - General Family Practice 10/01/19 Video System Repairer Relationship Specialty Start Date End Date Robel Onofre, DO [address] [facility] [place] [address] PCP - General Family Practice 10/01/19 Video System Repairer Relationship Specialty Start Date End Date Robel Onofre, DO [address] [place] [address] PCP - General Family Practice 10/01/19 Video System Repairer Relationship Specialty Start Date End Date Robel Onofre, DO [address] [place] [address] PCP - General Family Practice 10/01/19 Video System Repairer Relationship Specialty Start Date End Date Robel Onofre, DO [address] [place] [address] PCP - General Family Medicine 10/01/19 Video System Repairer Relationship Specialty Start Date End Date Robel Onofre, DO [address] [place] [address] PCP - General Family Medicine 10/01/19 Video System Repairer Relationship Specialty Start Date End Date Robel Onofre, DO [address] [place] [address] PCP - General Family Medicine 10/01/19 Video System Repairer Relationship Specialty Start Date End Date Robel Onofre, DO [address] [place] [address] PCP - General Family Medicine 10/01/19 Video System Repairer Relationship Specialty Start Date End Date Robel Onofre, DO [address] [place] [address] PCP - General Family Medicine 10/01/19 Video System Repairer Relationship Specialty Start Date End Date Robel Onofre, DO [address] [place] [address] PCP - General Family Medicine 10/01/19 Video System Repairer Relationship Specialty Start Date End Date Robel Onofre, DO [address] [place] [address] PCP - General Family Medicine 10/01/19 Video System Repairer Relationship Specialty Start Date End Date Robel Onofre, DO [address] [place] [address] PCP - General Family Medicine 10/01/19 Video System Repairer Relationship Specialty Start Date End Date Robel Onofre, DO [address] [place] [address] PCP - General Family Medicine 10/01/19 Video System Repairer Relationship Specialty Start Date End Date Robel Onofre, DO [address] [place] [address] PCP - General Family Medicine 10/01/19 Video System Repairer Relationship Specialty Start Date End Date Robel Onofre, DO [address] [place] [address] PCP - General Family Medicine 10/01/19 Video System Repairer Relationship Specialty Start Date End Date Robel Onofre, DO [address] [place] [address] PCP - General Family Medicine 10/01/19 Video System Repairer Relationship Specialty Start Date End Date Robel Onofre, DO [address] [place] [address] PCP - General Family Medicine 10/01/19 Video System Repairer Relationship Specialty Start Date End Date Robel Onofre DO [address] [place] [address] PCP - General Family Medicine 10/01/19 Video System Repairer Relationship Specialty Start Date End Date Robel Onofre DO [address] [place] [address] PCP - General Family Medicine 10/01/19 Video System Repairer Relationship Specialty Start Date End Date Robel Onofre DO [address] [facility] [place] [address] PCP - General Family Medicine 10/01/19 Video System Repairer Relationship Specialty Start Date End Date Robel Onofre, [address] [facility] [place] [address] PCP - General Family Medicine 10/01/19 Video System Repairer Relationship Specialty Start Date End Date Robel Onofre, [address] [facility] [place] [address] PCP - General Family Medicine 10/01/19 Video System Repairer Relationship Specialty Start Date End Date Robel Onofre, [address] [facility] [place] [address] PCP - General Family Medicine 10/01/19 Video System Repairer Relationship Specialty Start Date End Date Robel Onofre, [address] [facility] [place] [address] PCP - General Family Medicine 10/01/19 Video System Repairer Relationship Specialty Start Date End Date Robel Onofre, [address] [facility] [place] [address] PCP - General Family Medicine 10/01/19 Video System Repairer Relationship Specialty Start Date End Date Robel Onofre, [address] [facility] [place] [address] PCP - General Family Medicine 10/01/19 Video System Repairer Relationship Specialty Start Date End Date Robel Onofre DO [address] [facility] [place] [address] PCP - General Family Medicine 10/01/19 Video System Repairer Relationship Specialty Start Date End Date Robel Onofre DO [address] [facility] [place] [address] PCP - General Family Medicine 10/01/19 Video System Repairer Relationship Specialty Start Date End Date Robel Onofre DO [address] [facility] [place] [address] PCP - General Family Medicine 10/01/19 Video System Repairer Relationship Specialty Start Date End Date Robel Onofre DO [address] [facility] [place] [address] PCP - General Family Medicine 10/01/19 Video System Repairer Relationship Specialty Start Date End Date Robel Onofre DO [address] [facility] [place] [address] PCP - General Family Medicine 10/01/19 Cat Foote, OUTSIDE PLANT FIELD ENGINEER.SUBMARINE ELEMENT COORDINATOR [address] [facility] [place] [address] Clerk Family Medicine 08/01/24 Bessie Ambrocio, OUTSIDE PLANT FIELD ENGINEER.SUBMARINE ELEMENT COORDINATOR [address] [facility] [place] [address] Clerk Family Medicine 08/01/24 Video System Repairer Relationship Specialty Start Date End Date Roble Onofre DO [address] [facility] [place] [address] PCP - General Family Medicine 10/01/19 Cat Foote, OUTSIDE PLANT FIELD ENGINEER.SUBMARINE ELEMENT COORDINATOR [address] [facility] [place] [address] Clerk Family Medicine 08/01/24 Bessie Ambrocio OUTSIDE PLANT FIELD ENGINEER.SUBMARINE ELEMENT COORDINATOR [address] [place] [address] Clerk Family [facility] 08/01/24 Video System Repairer Relationship Specialty Start Date End Date Robel Onofre DO [address] [facility] [place] [address] PCP - General Family Medicine 10/01/19 Cat Foote, OUTSIDE PLANT FIELD ENGINEER.SUBMARINE ELEMENT COORDINATOR [address] [facility] [place] [place] [address] Clerk Family Medicine 08/01/24 Bessie Ambrocio, OUTSIDE PLANT FIELD ENGINEER.SUBMARINE ELEMENT COORDINATOR [address] [facility] [place] [place] [address] [facility]24 Video System Repairer Relationship Specialty Start Date End Date Robel Onofre DO [address] [facility] [place] [place] [address] PCP - General Family Medicine 10/01/19 Cat Foote, OUTSIDE PLANT FIELD ENGINEER.SUBMARINE ELEMENT COORDINATOR [address] [facility] [place] [place] [address] Clerk Family Medicine 08/01/24 Bessie Ambrocio, OUTSIDE PLANT FIELD ENGINEER.SUBMARINE ELEMENT COORDINATOR [address] [facility] [place] [address] [facility] 08/01/24 Video System Repairer Relationship Specialty Start Date End Date Robel Onofre DO [address] [facility] [place] [place] [address] PCP - General Family Medicine 10/01/19 Bessie Ambrocio, OUTSIDE PLANT FIELD ENGINEER.SUBMARINE ELEMENT COORDINATOR [address] [place] [address] [facility] 08/01/24 Video System Repairer Relationship Specialty Start Date End Date Robel Onofre DO [address] [place] [address] PCP - General Family Medicine 10/01/19 Cat Foote, OUTSIDE PLANT FIELD ENGINEER.SUBMARINE ELEMENT COORDINATOR [address] [place] [address] [facility] 08/01/24 11/12/24 Bessie Ambrocio, OUTSIDE PLANT FIELD ENGINEER.SUBMARINE ELEMENT COORDINATOR [address] [place] [address] [facility] 08/01/24 Video System Repairer Relationship Specialty Start Date End Date Robel Onofre DO [address] [place] [address] PCP - General Family Medicine 10/01/19 Bessie Ambrocio, OUTSIDE PLANT FIELD ENGINEER.SUBMARINE ELEMENT COORDINATOR [address] [place] [address] [facility] 08/01/24 Team Status: Active Member Role Status Dates Dr. Robel Onofre DO Primary Care Provider Active Team Status: Inactive Member Role Status Dates Dr. Robel Onofre DO Primary Care Provider Active Start: December 14, 2024 End: December 14, 2024 Dr. Cristobal Mayo DO Emergency Provider Active Start : December 14, 2024 End: December 14, 2024 Video System Repairer Relationship Specialty Start Date End Date Robel Onofre DO [address] [place] [address] PCP - General Family Medicine 10/01/19 Bessie Ambrocio, OUTSIDE PLANT FIELD ENGINEER.SUBMARINE ELEMENT COORDINATOR [address] [facility] [place] [address] Clerk Family Medicine 08/01/24 Video System Repairer Relationship Specialty Start Date End Date Robel Onofre DO [address] [facility] [place] [address] PCP - General Family Medicine 10/01/19 [facility], OUTSIDE PLANT FIELD ENGINEER.SUBMARINE ELEMENT COORDINATOR [address] [place] [address] Clerk Family [facility] 08/01/24 Video System Repairer Relationship Specialty Start Date End Date Robel Onofre DO [address] [place] [address] PCP - General Family Medicine 10/01/19 [facility], OUTSIDE PLANT FIELD ENGINEER.SUBMARINE ELEMENT COORDINATOR [address] [place] [address] Clerk Family [facility] 08/01/24 Video System Repairer Relationship Specialty Start Date End Date Robel Onofre DO [address] [place] [address] PCP - General Family Medicine 10/01/19 [facility], OUTSIDE PLANT FIELD ENGINEER.SUBMARINE ELEMENT COORDINATOR [address] [facility] [place] [address] Clerk Family Medicine 08/01/24 Una Mckinley, OUTSIDE PLANT FIELD ENGINEER.SUBMARINE ELEMENT COORDINATOR [address] [place] [address] Clerk Family Medicine 02/07/25 Video System Repairer Relationship Specialty Start Date End Date Robel Onofre DO [address] [place] [address] PCP - General Family Medicine 10/01/19 Bessie Ambrocio APRN.SUBMARINE ELEMENT COORDINATOR [address] [place], [place] [address] Maintenance Of [address] Clerk Family Medicine 08/01/24 Una Mckinley, GIA.SUBMARINE ELEMENT COORDINATOR [address] [place], [place] [address] Maintenance Of Way Clerk Family Medicine 02/07/25 Team Status: Active Member [...] Preprocedure 1047 (Given - Provid er: Tiffanie rGoss RN) ceFAZolin iv piggyback 2 g in [...] Gross RN)1140 (Given - Provider: Tamara Stinson APRN.[employer]) scopolamine - REMOVE PATCH(Linked Group 1) ONCE, [...] BE BASED ON THE PRIMARY CLINICAL RECORDS. [facility] [employer] [facility]. provides no warranty or guarantee of the accuracy or completeness of information in this document.
--- NOTE | 2025-07-19 03:03 | PCM.HP.STD ---
HPI - General General Date of Admission: 07/19/25 Date of Service: 07/19/25 Chief Complaint: Chest pain and shortness of breath HPI Narrative EZE EVANS, is a 85 M who presents with sudden onset severe retrosternal chest discomfort along with shortness of breath and hypoxemia requiring new oxygen that started last night when patient was in bed trying to sleep. Patient has medical history of CAD, he had remote CABG followed by a stent in 2019, last note from cardiology in February was reviewed and patient was doing okay with no symptoms at baseline. Son at bedside states patient has no anginal symptoms at baseline or dyspnea with exertion. Compliant to all his medications including Plavix and statin. When he went to bed last night he called his son because of severe chest discomfort and shortness of breath. He took 1 dose of nitroglycerin without significant relief. EMS found him hypoxemic and he was started on oxygen. In the ED he required BiPAP and he was very anxious so he received a small dose of Ativan while on BiPAP. His EKG showed some ST depressions and troponin were close to 2000, cardiology was contacted and recommended heparin. His Plavix was continued and aspirin was added. He received V Lasix, he responded and BiPAP is being titrated down Initial blood pressure was 214 /110, improved while he was in ED without a specific antihypertensive medicine There has been a lot of stress around this patient, his daughter has recently had a ruptured brain aneurysm, the patient's son states that care is being withdrawn and she just passed this night but the patient (her dad) does not know this as of this moment. He is also taking care of his who has dementia which is very stressful. Son states that patient has had recent discussion with his primary doctor about CODE STATUS and he switched to DNR. Because of the current medical situation, CODE STATUS was not discussed with him and I advised the son not to disclose his sister status, who just passed, with his dad who only knows that she had a brain bleed and she is in the ICU in [facility] Medical History Hiatal hernia Restless legs High cholesterol History of stress test HTN (hypertension) Heart attack Macular degeneration of both eyes Atherosclerosis of coronary artery bypass graft(s) without angina pectoris Dyspnea on exertion Atherosclerosis of [place] coronary artery of [place] heart without angina pectoris Lupus anticoagulant disorder Syncope Spinal stenosis Rheumatic fever Essential (primary) hypertension Hyperlipemia, mixed Home Medications ?Medication ?Instructions ?Recorded ?Last Taken ?Type finasteride 5 mg tablet 5 mg PO DAILY prostate 02/23/18 12/14/24 History tamsulosin 0.4 mg capsule 0.4 mg PO BID prostate 10/27/19 12/14/24 History atenolol 50 mg tablet 50 mg PO DAILY BLOOD PRESSURE 11/18/19 12/14/24 History clopidogrel 75 mg tablet 75 mg PO DAILY BLOOD THINNER #90 02/07/20 12/14/24 Rx tabs simvastatin 20 mg tablet 20 mg PO QHS cholesterol #90 tabs 11/10/20 12/13/24 Rx cholecalciferol (vitamin D3) 50 50 mcg PO DAILY SUPPLEMENT 06/13/22 12/13/24 History mcg (2,000 unit) capsule (Vitamin D3) omeprazole 20 mg capsule,delayed 20 mg PO DAILY 02/07/23 12/13/24 History release sertraline 25 mg tablet 25 mg PO DAILY 02/06/24 12/13/24 History cyanocobalamin (vitamin B-12) 1,000 mcg IM .COMPLEX 12/14/24 11/30/24 History 1,000 mcg/mL injection solution lisinopril 10 mg tablet 10 mg PO DAILY 12/14/24 12/14/24 History Allergy/AdvReac Type Severity Reaction Status Date / Time No Known Allergies Allergy Verified 07/18/25 23:48 Family History Mother CAD (coronary artery disease) Brother CAD (coronary artery disease) CABG Brother CAD (coronary artery disease) Surgical History Status post bilateral inguinal hernia repair Status post cardiac surgery History of heart artery stent H/O cardiac catheterization History of tonsillectomy 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) Stented coronary artery (10/28/19) H/O coronary artery bypass surgery History of endovascular stent graft for abdominal aortic aneurysm (AAA) History of left heart catheterization Social History Smoking Status: Former smoker how long ago did patient quit smokin years ago alcohol intake: never substance use type: does not use caffeine: Yes Type: coffee Number of servings: 4 ROS Constitutional Constitutional: Denies fever(s) or poor appetite ENT HEENT: Reports none Cardiovascular Cardiovascular: Reports chest pain and dyspnea Respiratory/Chest Respiratory/Chest: Reports cough; Denies wheezing Gastrointestinal Gastrointestinal: Denies abdominal pain or change in bowel habits Genitourinary Genitourinary: Denies change in urinary stream or dysuria Musculoskeletal Musculoskeletal: Denies arthralgias or myalgias Integumentary Integumentary: Reports none Neurologic Neurologic: Denies abnormal speech, dizziness, focal weakness, loss of vision or numbness Hematologic/Lymphatic Hematologic/Lymphatic: Reports none Vital Signs Vital Signs Vital Signs: 07/18/25 23:45 07/18/25 23:45 07/18/25 23:45 Temperature 96.9 F L Temperature Source Temporal Pulse Rate 110 H 105 H Respiratory Rate 41 H 32 H Respiratory Effort Respiratory Depth Respiratory Pattern Tachypnea Blood Pressure 214/117 H Blood Pressure Mean 149 Pulse Ox 100 100 100 Oxygen Delivery Method Bi-pap Bi-pap Oxygen Flow Rate (L/min) Fraction of Inspired Oxygen (FIO2) 100 100 07/18/25 23:49 07/18/25 23:49 07/19/25 00:09 Temperature 96.9 F L Temperature Source Temporal Pulse Rate 101 H Respiratory Rate 25 H Respiratory Effort Short of Breath Accessory Muscle Use Respiratory Depth Deep Respiratory Pattern Tachypnea Tachypnea Blood Pressure 214/117 H Blood Pressure Mean 149 Pulse Ox 100 97 Oxygen Delivery Method Bi-pap Bi-pap Oxygen Flow Rate (L/min) Fraction of Inspired Oxygen (FIO2) 100 50 07/19/25 00:18 07/19/25 01:00 07/19/25 01:30 Temperature Temperature Source Pulse Rate 77 71 72 Respiratory Rate 26 H 24 H 18 Respiratory Effort Respiratory Depth Respiratory Pattern Blood Pressure 173/95 H 135/75 H 140/80 H Blood Pressure Mean 121 95 100 Pulse Ox 97 97 97 Oxygen Delivery Method Bi-pap Bi-pap Bi-pap Oxygen Flow Rate (L/min) 50 Fraction of Inspired Oxygen (FIO2) 50 35 07/19/25 01:38 07/19/25 02:00 07/19/25 02:30 Temperature 98 F Temperature Source Pulse Rate 69 69 65 Respiratory Rate 19 H 19 H 22 H Respiratory Effort Respiratory Depth Respiratory Pattern Blood Pressure 140/80 H 147/89 H 151/84 H Blood Pressure Mean 100 108 106 Pulse Ox 96 95 94 Oxygen Delivery Method Bi-pap Bi-pap Oxygen Flow Rate (L/min) Fraction of Inspired Oxygen (FIO2) 30 30 Weight Weight: 87.3 kg Body Mass Index (BMI) 31.0 Physical Exam Const alert and oriented x3 HEENT normocephalic and head/scalp atraumatic Eyes EOMs intact bilaterally; Negative for no scleral icterus Neck supple Resp Resp Narrative: Respiratory distress on BiPAP Effort and Inspection: tachypneic and respiratory distress Auscultation: crackles and rales Cardio regular rhythm; Negative for no murmurs Rate: tachycardic GI normal to inspection, nondistended, normoactive bowel sounds; Negative for non-tender no CVA tenderness Extremity no joint enlargement and no pedal edema Skin no rashes or lesions noted Neuro oriented x3 and moves all extremities Results Lab / Micro Data 07/18/25 23:50 07/18/25 23:50 Labs: Laboratory Results - last 24 hr 07/18/25 23:50: WBC 10.9, RBC 5.21, Hgb 14.9, Hct 44.9, MCV 86.2, MCH 28.6, MCHC 33.2, RDW Std Deviation 46.0 H, RDW Coeff of Zoë 14.7 H, Plt Count 140 L, MPV 10.0, Immature Gran % (Auto) 0.600, Neut % (Auto) 68.7, Lymph % (Auto) 20.5, [place] % (Auto) 7.6, Eos % (Auto) 2.3, Baso % (Auto) 0.3, Absolute Neuts (auto) 7.5, Absolute Lymphs (auto) 2.23, Nucleated RBC % 0, Sodium 135, Potassium 4.0, Chloride 103, Carbon Dioxide 18.4 L, Anion Gap 14, BUN 26 H, Creatinine 1.17, Estim Creat Clear Calc 46.92 L, Est GFR (MDRD) Non-Af 61, BUN/Creatinine Ratio 21.9 H, Glucose 201 H, Calcium 9.3, Magnesium 2.3 H, Troponin T High Sens 1993 H*, NT pro BNP II 2378 H, Procalcitonin 0.07 07/19/25 01:49: PT 15.1 H, INR 1.2, APTT 79.5 H, Troponin T Hi Sens 2 Hr 1948 H* Micro: Microbiology 07/19/25 00:20 Mucosa - Nose SARS-CoV-2, Influenza & RSV (PCR) - Final ABG Data ABG results: ABG 07/19/25 00:07 Specimen Type ART Sample Site R Radial pH 7.34 L Bicarbonate Actual 21.4 L Total CO2 23 Base Excess -4 L O2 Saturation 97 O2 % 60.0 ABG pCO2 39.5 ABG pO2 91 Jasbir Test Positive O2 Delivery Device BiPAP Vent Mode Not entered Clinical Comments 09/06 12 60% Imaging Radiology Impression Chest X-Ray 07/19/25 00:20 IMPRESSION: As above. Reading Location: [facility] Assessment & Plan Assessment/Plan (1) Non-ST elevated myocardial infarction (non-STEMI): (2) Acute respiratory failure with hypoxia: (3) Acute decompensated heart failure: (4) S/P CABG x 3: (5) Stented coronary artery: (6) Essential (primary) hypertension: (7) Hyperlipemia, mixed: PLAN: Plan 85-year-old man presenting with acute non-ST elevation [place] with decompensated heart failure causing pulmonary edema leading to acute hypoxemic respiratory failure requiring BiPAP, admission to ICU with heparin drip, aspirin Plavix and cardiology consultation for possible cardiac cath Non-STEMI: High KALLI score. Dual platelets and IV heparin. High intensity statin Lipitor 40 mg, at home he is on simvastatin which is low intensity. Nitro paste for pain Decision for coronary angiography by cardiology based on risk-benefit evaluation and patient's perspectives IV Lasix, had a dose by ED. Reassess for subsequent dosing if remains dyspneic and hypoxemic Strict blood pressure control, IV labetalol as needed to keep SBP below 140 N.p.o. Respiratory failure: Due to pulmonary edema. Was very anxious with BiPAP so received Ativan. Will attempt downgrading to nasal cannula after he received Lasix. Blood gas shows no hypercapnia Heart failure: Decompensated triggered by acute coronary event Check 2D echo. No recent one in the system and patient was asymptomatic at baseline CAD: Had remote CABG, required stenting in 2019 Hypertensive emergency: Currently within acceptable limits. Continue home medication atenolol and lisinopril. As needed labetalol to keep SBP below 140. Avoid hydralazine or nifedipine Charges/Coding Visit Charges Inpatient E&M: 69442 Init Hosp L3 KALLI Risk Score for UA/STEMI Assesmment (YES = 1) > or = 3 CAD risk factors (HTN, Hypercholesterolemia, Diabetes, family hx, current smoker): Yes Known CAD (Stenosis > or = 50%): Yes ASA used in past 7 days: Yes Severe angina (> or = 2 episodes in 24 hrs): Yes EKG ST change > or = 0.5mm: No Positive cardiac markers: Yes Score KALLI Risk Score of mortality/ recurrent ischemic event over the next 14 days: 5 = 26.6% - HIGH RISK
--- NOTE | 2025-07-19 03:19 | ECHOD_ITS ---
Reason For Study Reason For Study: CHF Procedure This was a 2D Doppler, Color Flow transthoracic echocardiogram. Myocardial strain analysis was performed in this exam to aid in the assessment of cardiac function. Patient was scanned in supine position during reflux assessment. s/p heart cath. Exam performed portable in ICU/CCU. Left Ventricle Normal LV size. The left ventricular ejection fraction is 45 %. Mid-Lateral : Hypokinetic. Lateral-Basal: Hypokinetic. There are regional wall motion abnormalities as specified. The rest of the wall segments are normal. Right Ventricle Normal RV size. Normal systolic function. Atria The left atrium is moderately enlarged. Normal right atrium. Mitral Valve Normal mitral valve. Mild-Moderate (1-2+) eccentric mitral valve insufficiency. Tricuspid Valve Normal tricuspid valve. Mild (1+) tricuspid valve insufficiency. Pulmonary artery systolic pressure is 28 mmHg. Aortic Valve Trisinus/trileaflet aortic valve. Mild (1+) eccentric aortic valve insufficiency. Pulmonic Valve Normal pulmonic valve. Great Vessels Normal aortic root. The pulmonary artery is normal size. Inferior vena cava collapse with respiration. Pericardium/Pleural No pericardial effusion. MMode/2D Measurements & Calculations LVIDd: 5.1 cm IVSd: 0.86 cm asc Aorta Diam: 3.6 cm LVIDs: 4.0 cm LVPWd: 1.0 cm RVDd: 3.8 cm FS: 21.3 % LAV(MOD-bp): 76.2 ml LVAd ap4: 33.7 cm2 LVAd ap2: 28.4 cm2 LAV(MOD-bp) Indexed: 38.3 ml/m2 LVLd ap4: 8.8 cm LVLd ap2: 8.5 cm LAV(MOD-sp2): 77.1 ml EDV(MOD-sp4): 104.5 ml EDV(MOD-sp2): 79.2 ml LAV(MOD-sp4): 73.3 ml EDV(sp4-el): 109.4 ml EDV(sp2-el): 81.1 ml LVAs ap4: 23.7 cm2 LVAs ap2: 18.9 cm2 LVLs ap4: 7.9 cm LVLs ap2: 7.0 cm ESV(MOD-sp4): 60.6 ml ESV(MOD-sp2): 42.2 ml ESV(sp4-el): 60.4 ml ESV(sp2-el): 43.3 ml EF(MOD-sp4): 42.0 % EF(MOD-sp2): 46.7 % EF(sp4-el): 44.8 % SV(MOD-sp4): 43.9 ml SV(MOD-sp2): 37.0 ml SV(sp4-el): 49.0 ml SI(MOD-sp4): 22.1 ml/m2 SI(MOD-sp2): 18.6 ml/m2 LA A4 area: 23.9 cm2 LA dimension(2D): 5.3 cm RA A4 area: 14.0 cm2 TAPSE: 0.79 cm Time Measurements MV dec time: 0.27 sec Doppler Measurements & Calculations MV E max galen: 73.1 cm/sec Lat Peak E' Galen: 5.1 cm/sec Med Peak E' Galen: 4.1 cm/sec MV A max galen: 41.5 cm/sec E/E' lat: 14.3 E/E' med: 17.7 MV E/A: 1.8 Ao V2 max: 115.9 cm/sec AI max galen: 355.7 cm/sec MV dec slope: 273.2 cm/sec2 Ao max P.4 mmHg AI max P.6 mmHg Ao V2 mean: 73.5 cm/sec Ao mean P.5 mmHg AI dec slope: 222.4 cm/sec2 Ao V2 VTI: 20.8 cm AI P1/2t: 468.4 msec AV (velocity ratio): 0.75 LV V1 max: 73.6 cm/sec PA V2 max: 78.5 cm/sec PI end-d galen: 172.8 cm/sec LV V1 max P.2 mmHg LV V1 mean P.1 mmHg LV V1 mean: 50.3 cm/sec LV V1 VTI: 15.5 cm TR max galen: 241.8 cm/sec TR max P.4 mmHg ECHO/Echo Complete Interpretation Summary Normal LV size. The left ventricular ejection fraction is 45 %. Pulmonary artery systolic pressure is 28 mmHg. Mild (1+) eccentric aortic valve insufficiency. Mild-Moderate (1-2+) eccentric mitral valve insufficiency. The global longitudinal strain is moderately abnormal. The global longitudinal strain = -12.4% (abnormal). Ordering Physician: Elin Zavala Referring Physician: Robel Onofre Performed By: Brady Hummel RDCS
[2025-07-19] MEDS: 0.9% Saline Lock 10 ML Syringe IV (04:05)
[2025-07-19 04:21] LABS: Hematocrit 39.1 % (40-54); Hemoglobin 13.3 g/dL (13.0-16.5); Immature Granulocytes Count 0.040 X10^3/uL (0.0-0.0); Mean Corp Hgb Conc 34.0 g/dL (32-36); Mean Corpuscular Volume 85.4 fL (80-94); Mean Platelet Vol. 10.0 fl (6.2-12.0); NRBC Flagged by Analyzer 0 % (0-5); Platelet Count 128 K/mm3 (150-450); RBC Distribution Width CV 14.6 % (11.6-14.6); RBC Distribution Width SD 44.9 fl (35.1-43.9); Red Blood Count 4.58 M/mm3 (4.6-6.2); White Blood Count 8.4 K/mm3 (4.4-11.0)
[2025-07-19 04:43] LABS: Anion Gap 13 (5-15); BUN 25 mg/dL (4-19); BUN/Creat Ratio 21.5 RATIO (10-20); Calcium,Total 9.5 mg/dL (7.6-11.0); Carbon Dioxide 20.9 mmol/L (21.0-32.0); Chloride 104 mmol/L (98-108); Estimated Creatinine Clearance 47.83 ml/min (50-250); Glucose 141 mg/dL (70-99); Magnesium 2.3 mg/dL (1.5-2.2); Potassium 4.1 mmol/L (3.3-5.1)
[2025-07-19 04:57] LABS: Troponin T High Sens 4 HR 1903 ng/L (<=22)
[2025-07-19] MEDS: Nitroglycerin Oint 1 INCH PACKET TD (06:25)
--- NOTE | 2025-07-19 08:22 | PCM.CONS.C ---
Assessment & Plan Assessment/Plan (1) Acute decompensated heart failure: PLAN: He presents with acute decompensated heart failure. I suspect the above is on the basis of his severe hypertension which may have been precipitated by his stress. However coronary disease needs to be excluded and at this time I would suggest that we perform a limited cardiac catheterization to make sure that his coronary anatomy is unchanged. (2) CAD (coronary artery disease): PLAN: He does have a history of coronary disease status post PCI of the saphenous vein graft to obtuse marginal branch. His HANCOCK and the saphenous vein graft to the right coronary artery were patent. This would need to be reevaluated. My suspicion is that the graft to the obtuse marginal is occluded. However this will be reevaluated. There is benefits alternatives have been explained to him he understands and agrees to proceed. (3) Essential (primary) hypertension: PLAN: His blood pressure is rather elevated today. Will continue with aggressive risk factor modification. His medications will be adjusted appropriately. (4) History of endovascular stent graft for abdominal aortic aneurysm (AAA): PLAN: He does have a history of abdominal aortic aneurysm status postrepair. He will continue with surveillance. (5) Hyperlipemia, mixed: PLAN: Will continue with aggressive risk factor modification at this time. HPI Consult Data Date of Consult: 07/19/25 HPI Narrative HPI Narrative: EZE EVANS, is a 85 M who presents to the emergency room with shortness of breath. He is a gentleman with a history of coronary disease, hypertension, hyperlipidemia status post coronary bypass surgery with a HANCOCK to the LAD and diagonal sequential graft and the saphenous vein graft to the obtuse marginal vessel . He also has a saphenous vein graft to the right coronary artery. In 2019 he underwent PCI with thrombectomy to the saphenous vein graft to obtuse marginal vessel. He was recently seen in the office in February and had been doing well. Apparently his daughter has been having a very stressful situation and he is also been taking care of his demented . He presented to the emergency room yesterday with marked short of breath hypertension and was noted to have an abnormal cardiac troponin as well as natruretic peptide level. I was consulted for further evaluation and management. This morning he appears to doing well pain-free. He also has a history of hyperlipidemia and abdominal aortic aneurysm status postrepair in 2009. [facility] Medical History Hiatal hernia Restless legs High cholesterol History of stress test HTN (hypertension) Heart attack Macular degeneration of both eyes Atherosclerosis of coronary artery bypass graft(s) without angina pectoris Dyspnea on exertion Atherosclerosis of [place] coronary artery of [place] heart without angina pectoris Lupus anticoagulant disorder Syncope Spinal stenosis Rheumatic fever Essential (primary) hypertension Hyperlipemia, mixed Home Medications ?Medication ?Instructions ?Recorded ?Last Taken ?Type finasteride 5 mg tablet 5 mg PO DAILY prostate 02/23/18 12/14/24 History tamsulosin 0.4 mg capsule 0.4 mg PO BID prostate 10/27/19 12/14/24 History atenolol 50 mg tablet 50 mg PO DAILY BLOOD PRESSURE 11/18/19 12/14/24 History clopidogrel 75 mg tablet 75 mg PO DAILY BLOOD THINNER #90 02/07/20 12/14/24 Rx tabs simvastatin 20 mg tablet 20 mg PO QHS cholesterol #90 tabs 11/10/20 12/13/24 Rx cholecalciferol (vitamin D3) 50 50 mcg PO DAILY SUPPLEMENT 06/13/22 12/13/24 History mcg (2,000 unit) capsule (Vitamin D3) omeprazole 20 mg capsule,delayed 20 mg PO DAILY 02/07/23 12/13/24 History release sertraline 25 mg tablet 25 mg PO DAILY 02/06/24 12/13/24 History cyanocobalamin (vitamin B-12) 1,000 mcg IM .COMPLEX 12/14/24 11/30/24 History 1,000 mcg/mL injection solution lisinopril 10 mg tablet 10 mg PO DAILY 12/14/24 12/14/24 History Allergy/AdvReac Type Severity Reaction Status Date / Time No Known Allergies Allergy Verified 07/18/25 23:48 Family History Mother CAD (coronary artery disease) Brother CAD (coronary artery disease) CABG Brother CAD (coronary artery disease) Surgical History Status post bilateral inguinal hernia repair Status post cardiac surgery History of heart artery stent H/O cardiac catheterization History of tonsillectomy 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) Stented coronary artery (10/28/19) H/O coronary artery bypass surgery History of endovascular stent graft for abdominal aortic aneurysm (AAA) History of left heart catheterization Social History Smoking Status: Former smoker how long ago did patient quit smokin years ago alcohol intake: never substance use type: does not use caffeine: Yes Type: coffee Number of servings: 4 ROS Constitutional Constitutional: Denies fever(s) or weight loss Eyes Eyes: Reports systems reviewed and no addt'l complaints, except as documented ENT HEENT: Reports systems reviewed and no addt'l complaints, except as documented Cardiovascular Cardiovascular: Denies chest pain at rest, chest pain with activity, dyspnea at rest, dyspnea on exertion, edema, palpitations or paroxysmal nocturnal dyspnea Respiratory/Chest Respiratory/Chest: Reports dyspnea on exertion, shortness of breath at rest and shortness of breath with exertion; Denies productive cough Gastrointestinal Gastrointestinal: Denies change in bowel habits, nausea, vomiting or weight changes Genitourinary Genitourinary: Denies difficulty urinating Musculoskeletal Musculoskeletal: Denies joint stiffness or muscle weakness Integumentary Integumentary: Denies lesions Neurologic Neurologic: Denies dizziness or syncope Psychiatric Psychiatric: Denies anxiety Endocrine Endocrinology: Denies excessive sweating or fatigue Hematologic/Lymphatic Hematologic/Lymphatic: Denies anemia Allergic/Immunologic Allergic/Immunologic: Denies seasonal rhinorrhea Physical Exam Const alert and oriented x3 Orientation / Consciousness: awake HEENT normocephalic Eyes PERRL Neck Carotids: normal carotid upstroke Chest inspection of chest normal Resp Auscultation: diminished lung sounds Cardio regular rate GI normal to inspection, nondistended, normoactive bowel sounds Extremity no clubbing, cyanosis or edema Objective Data Vital Signs: Vital Signs Temp Pulse Resp BP Pulse Ox O2 Del Method O2 Flow Rate 98.0 F 60 12 136/72 H 90 Nasal Cannula 3 07/19/25 03:15 07/19/25 06:25 07/19/25 06:00 07/19/25 06:25 07/19/25 06:00 07/19/25 06:00 07/19/25 06:00 FiO2 30 07/19/25 02:30 Oxygen Flow Rate (L/min) 3 Oxygen Delivery Method Nasal Cannula Weight: 192 lb 10.944 oz Body Mass Index (BMI) 30.2 Intake & Output: Intake and Output for Last 24 Hours 07/17/25 07/18/25 07/19/25 23:59 23:59 23:59 Intake Total 11.67 / 11.67 Output Total 325 / 325 Balance -313.33 / -313.33 Lab / Micro Data 07/19/25 04:07 07/19/25 04:07 Labs: Laboratory Results - last 24 hr 07/18/25 23:50: WBC 10.9, RBC 5.21, Hgb 14.9, Hct 44.9, MCV 86.2, MCH 28.6, MCHC 33.2, RDW Std Deviation 46.0 H, RDW Coeff of Zoë 14.7 H, Plt Count 140 L, MPV 10.0, Immature Gran % (Auto) 0.600, Neut % (Auto) 68.7, Lymph % (Auto) 20.5, [place] % (Auto) 7.6, Eos % (Auto) 2.3, Baso % (Auto) 0.3, Absolute Neuts (auto) 7.5, Absolute Lymphs (auto) 2.23, Nucleated RBC % 0, Sodium 135, Potassium 4.0, Chloride 103, Carbon Dioxide 18.4 L, Anion Gap 14, BUN 26 H, Creatinine 1.17, Estim Creat Clear Calc 46.92 L, Est GFR (MDRD) Non-Af 61, BUN/Creatinine Ratio 21.9 H, Glucose 201 H, Calcium 9.3, Magnesium 2.3 H, Troponin T High Sens 1993 H*, NT pro BNP II 2378 H, Procalcitonin 0.07 07/19/25 01:49: PT 15.1 H, INR 1.2, APTT 79.5 H, Troponin T Hi Sens 2 Hr 1948 H* 07/19/25 04:07: WBC 8.4, RBC 4.58 L, Hgb 13.3, Hct 39.1 L, MCV 85.4, MCH 29.0, MCHC 34.0, RDW Std Deviation 44.9 H, RDW Coeff of Zoë 14.6, Plt Count 128 L, MPV 10.0, Immature Gran % (Auto) 0.500, Neut % (Auto) 80.2 H, Lymph % (Auto) 11.1 L, [place] % (Auto) 7.2, Eos % (Auto) 0.6, Baso % (Auto) 0.4, Absolute Neuts (auto) 6.7, Absolute Lymphs (auto) 0.93, Nucleated RBC % 0, Sodium 138, Potassium 4.1, Chloride 104, Carbon Dioxide 20.9 L, Anion Gap 13, BUN 25 H, Creatinine 1.17, Estim Creat Clear Calc 47.83 L, Est GFR (MDRD) Non-Af 61, BUN/Creatinine Ratio 21.5 H, Glucose 141 H, Calcium 9.5, Magnesium 2.3 H, Troponin T Hi Sens 4Hr 1903 H* Micro: Microbiology 07/19/25 00:20 Mucosa - Nose SARS-CoV-2, Influenza & RSV (PCR) - Final ABG Data ABG results: ABG 07/19/25 00:07 Specimen Type ART Sample Site R Radial pH 7.34 L Bicarbonate Actual 21.4 L Total CO2 23 Base Excess -4 L O2 Saturation 97 O2 % 60.0 ABG pCO2 39.5 ABG pO2 91 Jasbir Test Positive O2 Delivery Device BiPAP Vent Mode Not entered Clinical Comments 09/06 12 60% Cardiology Labs/Tests 07/18/25 23:50: WBC 10.9, RBC 5.21, Hgb 14.9, Hct 44.9, MCV 86.2, MCH 28.6, MCHC 33.2, Plt Count 140 L, MPV 10.0, Immature Gran % (Auto) 0.600, Neut % (Auto) 68.7, Lymph % (Auto) 20.5, [place] % (Auto) 7.6, Eos % (Auto) 2.3, Baso % (Auto) 0.3, Absolute Neuts (auto) 7.5, Nucleated RBC % 0, Sodium 135, Potassium 4.0, Chloride 103, Carbon Dioxide 18.4 L, Anion Gap 14, BUN 26 H, Creatinine 1.17, Est GFR (MDRD) Non-Af 61, BUN/Creatinine Ratio 21.9 H, Glucose 201 H, Calcium 9.3, Magnesium 2.3 H 07/19/25 00:07: pH 7.34 L, Bicarbonate Actual 21.4 L, Base Excess -4 L, O2 Saturation 97, ABG pCO2 39.5, ABG pO2 91, Jasbir Test Positive 07/19/25 01:49: PT 15.1 H, INR 1.2, APTT 79.5 H 07/19/25 04:07: WBC 8.4, RBC 4.58 L, Hgb 13.3, Hct 39.1 L, MCV 85.4, MCH 29.0, MCHC 34.0, Plt Count 128 L, MPV 10.0, Immature Gran % (Auto) 0.500, Neut % (Auto) 80.2 H, Lymph % (Auto) 11.1 L, [place] % (Auto) 7.2, Eos % (Auto) 0.6, Baso % (Auto) 0.4, Absolute Neuts (auto) 6.7, Nucleated RBC % 0, Sodium 138, Potassium 4.1, Chloride 104, Carbon Dioxide 20.9 L, Anion Gap 13, BUN 25 H, Creatinine 1.17, Est GFR (MDRD) Non-Af 61, BUN/Creatinine Ratio 21.5 H, Glucose 141 H, Calcium 9.5, Magnesium 2.3 H Rhythm: EKG: ECHO: Stress Test: Cardiac Cath: PCI: CT Surgery: Holter monitor: EPS: PPM: CXR: Chest CT Scan: Radiography Diagnostic Testing: Radiology Impression Chest X-Ray 07/19/25 00:20 IMPRESSION: As above. Reading Location: [facility]I Risk Score for UA/STEMI Assesmment (YES = 1) Risk Stratification Applicable: Yes Age > or = 65: Yes > or = 3 CAD risk factors (HTN, Hypercholesterolemia, Diabetes, family hx, current smoker): Yes Known CAD (Stenosis > or = 50%): Yes ASA used in past 7 days: Yes Severe angina (> or = 2 episodes in 24 hrs): No EKG ST change > or = 0.5mm: No Positive cardiac markers: Yes Score KALLI Risk Score of mortality/ recurrent ischemic event over the next 14 days: 5 = 26.6% - HIGH RISK
[2025-07-19 08:57] LABS: Partial Thromboplast Time 198.6 Seconds (24.1-36.2)
[2025-07-19] MEDS: 0.9% Normal Saline (1000mL) 1,000 ML 15 ML IV (09:13)
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
[2025-07-19] MEDS: Pantoprazole Sodium 40 MG in 0.9% Normal Saline (100mL MB+) 100 ML 300 MG IV (12:36)
--- NOTE | 2025-07-19 14:16 | DCINST_ITS ---
Discharge Instructions DC O2, CPAP, BIPAP needs Home O2 Discharge instructions: No Dressing / Incision Discharge Activity: Return to Normal Activity Dressing / Incision Call your doctor if you observe: Fever of 101 or Higher, Shortness of breath, Dizziness, Fainting spells, Swelling in the ankles, Chest pain and Increased palpitations (irregular heartbeat) Follow Up Care Test Results: Test results from this visit will be discussed in further detail at your follow- up appointment, if applicable. Discharge Plan Admission Admit Date/Time: 07/19/25 02:40 Attending Provider: Foster Mcmahon Primary Care Provider: Robel Onofre Consulting Providers: Jamal Dawson; Elin Zavala Discharge Orders/Prescriptions Prescriptions: New aspirin 81 mg capsule 81 mg PO DAILY Qty: 30 3RF Continued finasteride 5 mg tablet 5 mg PO DAILY atenolol 50 mg tablet 50 mg PO DAILY omeprazole 20 mg capsule,delayed release(DR/EC) 20 mg PO DAILY sertraline 25 mg tablet 25 mg PO DAILY tamsulosin 0.4 mg capsule 0.4 mg PO BID cholecalciferol (vitamin D3) [Vitamin D3] 50 mcg (2,000 unit) capsule 50 mcg PO DAILY cyanocobalamin (vitamin B-12) 1,000 mcg/mL solution 1,000 mcg IM .COMPLEX Rx Instructions: 1,000 mcg intramuscularly QOWEEK; lisinopril 10 mg tablet 10 mg PO DAILY clopidogrel 75 mg tablet 75 mg PO DAILY Qty: 90 3RF simvastatin 20 mg tablet 20 mg PO QHS Qty: 90 4RF Referrals / Follow Up: Jamal Dawson MD [Med Staff - Active Staff, Cardiology] - Within 1 Month Robel Onofre DO [Primary Care Provider, Medical] - Within 1 Week Disposition Disposition (needs filled in before D/C Order can be placed): Home, Self Care
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
--- NOTE | 2025-07-19 16:20 | DS.PCM_ITS ---
Providers Date of Admission: 07/19/25 Primary Care Physician: Dr. Robel Onofre DO Consultations 07/19/25 04:09 Consult: Cardiology Routine Consulting Provider: Jamal Dawson Reason for Consult: Non-ST elevation GA EMERGENT Consult: Yes MD Notified: Yes Date Notified: 07/19/25 Time Notified: 04:09 Method of Notification: ED Physician Initiated Reason For Visit: ACUTE MYOCARDIAL INFARCTION Diagnosis Discharge Diagnosis (1) Acute decompensated heart failure: Status: Acute Code(s): I50.9 - Heart failure, unspecified (2) CAD (coronary artery disease): Status: Acute Code(s): I25.10 - Atherosclerotic heart disease of [place] coronary artery without angina pectoris (3) Essential (primary) hypertension: Status: Chronic Code(s): I10 - Essential (primary) hypertension (4) History of endovascular stent graft for abdominal aortic aneurysm (AAA): Status: Chronic Code(s): Z95.828 - Presence of other vascular implants and grafts (5) Hyperlipemia, mixed: Status: Chronic Code(s): E78.2 - Mixed hyperlipidemia Medications at Discharge Home Medications finasteride 5 mg tablet 5 mg PO DAILY prostate 02/23/18 tamsulosin 0.4 mg capsule 0.4 mg PO BID prostate 10/27/19 atenolol 50 mg tablet 50 mg PO DAILY BLOOD PRESSURE 11/18/19 clopidogrel 75 mg tablet 75 mg PO DAILY BLOOD THINNER #90 tabs 02/07/20 simvastatin 20 mg tablet 20 mg PO QHS cholesterol #90 tabs 11/10/20 cholecalciferol (vitamin D3) 50 mcg (2,000 unit) capsule (Vitamin D3) 50 mcg PO DAILY SUPPLEMENT 06/13/22 omeprazole 20 mg capsule,delayed release 20 mg PO DAILY 02/07/23 sertraline 25 mg tablet 25 mg PO DAILY 02/06/24 cyanocobalamin (vitamin B-12) 1,000 mcg/mL injection solution 1,000 mcg IM .COMPLEX 12/14/24 lisinopril 10 mg tablet 10 mg PO DAILY 12/14/24 aspirin 81 mg capsule 81 mg PO DAILY #30 caps 07/19/25 Hospital Course Operations None Procedures 2-D Echocardiogram and Cardiac catheterization Summary of Care Provided Minutes Spent on Discharge: 38 Hospital Course: Per HPI: EZE EVANS, is a 85 M who presents with sudden onset severe retrosternal chest discomfort along with shortness of breath and hypoxemia requiring new oxygen that started last night when patient was in bed trying to sleep. Patient has medical history of CAD, he had remote CABG followed by a stent in 2019, last note from cardiology in February was reviewed and patient was doing okay with no symptoms at baseline. Son at bedside states patient has no anginal symptoms at baseline or dyspnea with exertion. Compliant to all his medications including Plavix and statin. When he went to bed last night he called his son because of severe chest discomfort and shortness of breath. He took 1 dose of nitroglycerin without significant relief. EMS found him hypoxemic and he was started on oxygen. In the ED he required BiPAP and he was very anxious so he received a small dose of Ativan while on BiPAP. His EKG showed some ST depressions and troponin were close to 2000, cardiology was contacted and recommended heparin. His Plavix was continued and aspirin was added. He received V Lasix, he responded and BiPAP is being titrated down. Initial blood pressure was 214 /110, improved while he was in ED without a specific antihypertensive medicine. There has been a lot of stress around this patient, his daughter has recently had a ruptured brain aneurysm, the patient's son states that care is being withdrawn and she just passed this night but the patient (her dad) does not know this as of this moment. He is also taking care of his who has dementia which is very stressful. Son states that patient has had recent discussion with his primary doctor about CODE STATUS and he switched to DNR. Because of the current medical situation, CODE STATUS was not discussed with him and I advised the son not to disclose his sister status, who just passed, with his dad who only knows that she had a brain bleed and she is in the ICU in [place]. Hospital Course: 1. Non-STEMI with acute hypoxic respiratory failure and hypertensive emergency with flash pulmonary edema?85-year-old male presented to the hospital with sudden onset severe substernal chest pain. Family has been undergoing a lot of stress as his daughter had a brain bleed and ultimately in [place] last night but that is when he had found out that she had had a brain bleed but was not told about her until this morning after his heart cath. His heart cath did not demonstrate any new disease though did show progression of his old disease with occlusion of his proximal LAD and proximal circumflex with an occluded vein graft to the first OM. Cardiology did not feel like there is anything to do as he is on maximal therapy at this time and will follow-up with them in the outpatient setting. 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 I do think that with all the stress that he was undergoing his hypertensive episode where his systolics were over 200 led to his non-STEMI and essentially a flash pulmonary edema that improved with a dose of Lasix and BiPAP as he is now on room air and does not need any oxygen with ambulation. I discussed with him and his family the plan for discharge today and they expressed understanding of the risks and benefits of going home and would like to go home today. He is already on aspirin and Plavix and is on simvastatin and lisinopril. I do recommend outpatient follow-up with cardiology in a month for further medication adjustments if indicated. 2. 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 His home medications were continued where appropriate. Physical Exam Narrative General: Alert, Oriented x3, Cooperative, No apparent distress HEENT: Atraumatic, PERRLA, EOMI, Normocephalic Oral: Moist Mucosa Neck: Supple, No JVD Lungs: Diminished, Normal air movement, No rhonchi, No wheeze, No rales Cardiovascular: Regular rate, Regular Rhythm, Normal S1, Normal S2, No murmurs Abdomen: Soft, Non Tender, Non-Distended, No Hepato-splenomegaly Extremities: No edema, Capillary Refill Less than 3 Seconds Skin: No rashes, No breakdown Musculoskeletal: No Tenderness to Palpation of Joints or Extremities Neurological: No focal neurological deficits, moves all extremities Psych/Mental Status: Normal Affect, Appropriate Weight / BMI Weight Weight: 192 lb 10.944 oz Body Mass Index (BMI) 30.2 ABG / Lab / Microbiology Data 07/19/25 04:07 07/19/25 04:07 Laboratory: Laboratory Results - last 24 hr 07/18/25 23:50: WBC 10.9, RBC 5.21, Hgb 14.9, Hct 44.9, MCV 86.2, MCH 28.6, MCHC 33.2, RDW Std Deviation 46.0 H, RDW Coeff of Zoë 14.7 H, Plt Count 140 L, MPV 10.0, Immature Gran % (Auto) 0.600, Neut % (Auto) 68.7, Lymph % (Auto) 20.5, [place] % (Auto) 7.6, Eos % (Auto) 2.3, Baso % (Auto) 0.3, Absolute Neuts (auto) 7.5, Absolute Lymphs (auto) 2.23, Nucleated RBC % 0, Sodium 135, Potassium 4.0, Chloride 103, Carbon Dioxide 18.4 L, Anion Gap 14, BUN 26 H, Creatinine 1.17, E stim Creat Clear Calc 46.92 L, Est GFR (MDRD) Non-Af 61, BUN/Creatinine Ratio 21.9 H, Glucose 201 H, Calcium 9.3, Magnesium 2.3 H, Troponin T High Sens 1993 H*, NT pro BNP II 2378 H, Procalcitonin 0.07 07/19/25 01:49: PT 15.1 H, INR 1.2, APTT 79.5 H, Troponin T Hi Sens 2 Hr 1948 H* 07/19/25 04:07: WBC 8.4, RBC 4.58 L, Hgb 13.3, Hct 39.1 L, MCV 85.4, MCH 29.0, MCHC 34.0, RDW Std Deviation 44.9 H, RDW Coeff of Zoë 14.6, Plt Count 128 L, MPV 10.0, Immature Gran % (Auto) 0.500, Neut % (Auto) 80.2 H, Lymph % (Auto) 11.1 L, [place] % (Auto) 7.2, Eos % (Auto) 0.6, Baso % (Auto) 0.4, Absolute Neuts (auto) 6.7, Absolute Lymphs (auto) 0.93, Nucleated RBC % 0, Sodium 138, Potassium 4.1, Chloride 104, Carbon Dioxide 20.9 L, Anion Gap 13, BUN 25 H, Creatinine 1.17, E stim Creat Clear Calc 47.83 L, Est GFR (MDRD) Non-Af 61, BUN/Creatinine Ratio 21.5 H, Glucose 141 H, Calcium 9.5, Magnesium 2.3 H, Troponin T Hi Sens 4Hr 1903 H* 11/25/25 08:10: APTT 198.6 H* Microbiology: Microbiology 07/19/25 00:20 Mucosa - Nose SARS-CoV-2, Influenza & RSV (PCR) - Final ABG: ABG 07/19/25 00:07 Specimen Type ART Sample Site R Radial pH 7.34 L Bicarbonate Actual 21.4 L Total CO2 23 Base Excess -4 L O2 Saturation 97 O2 % 60.0 ABG pCO2 39.5 ABG pO2 91 Jasbir Test Positive O2 Delivery Device BiPAP Vent Mode Not entered Clinical Comments 09/06 12 60% Radiography Diagnostic Testing: Radiology Impression Chest X-Ray 07/19/25 00:20 IMPRESSION: As above. Reading Location: [id number] Instructions Call your doctor if you observe: Fever of 101 or Higher, Shortness of breath, Dizziness, Fainting spells, Swelling in the ankles, Chest pain and Increased palpitations (irregular heartbeat) DC O2, CPAP, BIPAP Needs Home O2 Discharge instructions: No Meaningful Use Info Meaningful Use Meaningful Use Diagnoses (Choose all that apply): None applicable Discharge Plan Admission Admit Date/Time: 07/19/25 02:40 Attending Provider: Foster Mcmahon Primary Care Provider: Robel Onofre Consulting Providers: Jamal Dawson; Elin Zavala Discharge Orders/Prescriptions Prescriptions: New aspirin 81 mg capsule 81 mg PO DAILY Qty: 30 3RF Continued finasteride 5 mg tablet 5 mg PO DAILY atenolol 50 mg tablet 50 mg PO DAILY omeprazole 20 mg capsule,delayed release(DR/EC) 20 mg PO DAILY sertraline 25 mg tablet 25 mg PO DAILY tamsulosin 0.4 mg capsule 0.4 mg PO BID cholecalciferol (vitamin D3) [Vitamin D3] 50 mcg (2,000 unit) capsule 50 mcg PO DAILY cyanocobalamin (vitamin B-12) 1,000 mcg/mL solution 1,000 mcg IM .COMPLEX Rx Instructions: 1,000 mcg intramuscularly QOWEEK; lisinopril 10 mg tablet 10 mg PO DAILY clopidogrel 75 mg tablet 75 mg PO DAILY Qty: 90 3RF simvastatin 20 mg tablet 20 mg PO QHS Qty: 90 4RF Referrals / Follow Up: Jamal Dawson MD [Med Staff - Active Staff, Cardiology] - Within 1 Month Robel Onofre DO [Primary Care Provider, Medical] - Within 1 Week Disposition Disposition (needs filled in before D/C Order can be placed): Home, Self Care Charges/Coding Visit Charges Inpatient E&M: 06488 Disch Hosp >30min
== END 2025-07-19 17:00 | disposition home or self-care (01) | DRG 280 ==
LOC: ED 07-19 01:42 → ICU 07-19 02:52
PROVIDERS: Admitting Provider Internal Medicine; Emergency Provider Emergency Medicine; PCP Student in an Organized Health Care Education/Training Program; Visit Provider Family Medicine
DX: I21.4 Non-ST elevation (NSTEMI) myocardial infarction (principal); J96.01 Acute respiratory failure with hypoxia; J81.0 Acute pulmonary edema; I16.1 Hypertensive emergency; N13.8 Other obstructive and reflux uropathy; I50.9 Heart failure, unspecified; Z95.1 Presence of aortocoronary bypass graft; F32.A Depression, unspecified; Z95.828 Presence of other vascular implants and grafts; I11.0 Hypertensive heart disease with heart failure; I25.10 Atherosclerotic heart disease of native coronary artery without angina pectoris; E78.2 Mixed hyperlipidemia; K21.9 Gastro-esophageal reflux disease without esophagitis; F41.9 Anxiety disorder, unspecified; I25.2 Old myocardial infarction; Z82.49 Family history of ischemic heart disease and other diseases of the circulatory system; Z95.5 Presence of coronary angioplasty implant and graft; Z87.891 Personal history of nicotine dependence; Z79.02 Long term (current) use of antithrombotics/antiplatelets; Z79.82 Long term (current) use of aspirin; N40.1 Benign prostatic hyperplasia with lower urinary tract symptoms
CPT/HCPCS: 36600; 71045; 80048; 82803; 83735; 83880; 84145; 84484; 85025; 85610; 85730; 87631; 93005; 93306; 93455; 94002; 94003; 94762; 99152; 99153; 99285; C1894; Q9967; A4216; C1760; C1769; J1938

== ENCOUNTER 2025-07-28 23:57 | Inpatient (IN) | payer MEDICARE, SELFPAY ==
[2020-03-09 06:33] VITALS: BMI 29.0
[2025-07-28 23:57] VITALS: BP 209/121; PULSE 92; RESP 35; TEMP 36.6; O2SAT 87; O2SAT 94; BMI 30.9
[2025-07-29] VITALS (54 sets, daily range): BP systolic 79–209; BP diastolic 50–121; PULSE 56–88; RESP 12–28; TEMP 36.3–36.7; O2SAT 89–100; BMI 28.8
--- NOTE | 2025-07-29 00:08 | EKG12_ITS ---
Test Reason : DYSRHYTHMIA Blood Pressure : */* mmHG Vent. Rate : 88 BPM Atrial Rate : 88 BPM P-R Int : 146 ms QRS Dur : 92 ms QT Int : 422 ms P-R-T Axes : 59 40 81 degrees QTcB Int : 510 ms Normal sinus rhythm Possible Left atrial enlargement Minimal voltage criteria for LVH, may be normal variant ( Sokolow-Gill ) Cannot rule out Inferior infarct , age undetermined Prolonged QT Abnormal ECG Confirmed by DEREK CAMPA, MARTHA ([id number]), scientific publications editor HAM ALEXANDRA ([id number]) on 08/01/2025 6:03:52 AM Referred By: FLORIDALMA Confirmed By: MARTHA REED MD
[2025-07-29] MEDS: Nitroglycerin SL (ED/IMG/CATH) 0.4 MG TABLET 2 MG SL (00:09)
--- NOTE | 2025-07-29 00:20 | RAD_ITS ---
PROCEDURE: CHEST 1 VIEW (PORTABLE) 07/29/2025 REASON FOR EXAM: CHEST PAIN TECHNIQUE: Frontal view of the chest. COMPARISON: 07/19/2025. FINDINGS: Unremarkable median sternotomy wires. Mild increase in interstitial pulmonary congestion/infiltrates. There is no demonstrated pleural abnormality. Enlarged cardiac silhouette. Normal mediastinum and abhay. Normal visualized pulmonary arteries. Atheromatous plaques of the visualized aortic arch and descending thoracic aorta. Diffuse spondylosis of the visualized thoracic spine. Normal visualized ribs, clavicles. Degenerative joint disease. There is no demonstrated abnormality of the visualized soft tissue structures of the upper abdomen. RAD/Chest 1 View (Portable) IMPRESSION: Mild increase in interstitial pulmonary congestion/infiltrates. Reading [facility]
[2025-07-29 00:26] LABS: Hematocrit 40.1 % (40-54); Hemoglobin 13.3 g/dL (13.0-16.5); Immature Granulocytes Count 0.040 X10^3/uL (0.0-0.0); Mean Corp Hgb Conc 33.2 g/dL (32-36); Mean Corpuscular Volume 86.6 fL (80-94); Mean Platelet Vol. 9.5 fl (6.2-12.0); NRBC Flagged by Analyzer 0 % (0-5); Platelet Count 144 K/mm3 (150-450); RBC Distribution Width CV 15.0 % (11.6-14.6); RBC Distribution Width SD 47.0 fl (35.1-43.9); Red Blood Count 4.63 M/mm3 (4.6-6.2); White Blood Count 9.2 K/mm3 (4.4-11.0)
--- NOTE | 2025-07-29 00:36 | ED.VIS.DYS ---
HPI History of Present Illness Chief Complaint: Shortness of Breath Narrative Narrative: Patient was seen and examined after presenting to ED for shortness of breath patient was recently admitted had heart failure also was admitted for NSTEMI but reportedly had a clean cath patient reports that he became more short of breath he does not normally wear oxygen but was requiring supplemental oxygen from EMS. [facility] Medical History Hiatal hernia Restless legs High cholesterol History of stress test HTN (hypertension) Heart attack Macular degeneration of both eyes Atherosclerosis of coronary artery bypass graft(s) without angina pectoris Dyspnea on exertion Atherosclerosis of [place] coronary artery of [place] heart without angina pectoris Lupus anticoagulant disorder Syncope Spinal stenosis Rheumatic fever Essential (primary) hypertension Hyperlipemia, mixed Home Medications ?Medication ?Instructions ?Recorded ?Last Taken ?Type finasteride 5 mg tablet 5 mg PO DAILY prostate 02/23/18 12/14/24 History tamsulosin 0.4 mg capsule 0.4 mg PO BID prostate 10/27/19 12/14/24 History atenolol 50 mg tablet 50 mg PO DAILY BLOOD PRESSURE 11/18/19 12/14/24 History clopidogrel 75 mg tablet 75 mg PO DAILY BLOOD THINNER #90 02/07/20 12/14/24 Rx tabs simvastatin 20 mg tablet 20 mg PO QHS cholesterol #90 tabs 11/10/20 12/13/24 Rx cholecalciferol (vitamin D3) 50 50 mcg PO DAILY SUPPLEMENT 06/13/22 12/13/24 History mcg (2,000 unit) capsule (Vitamin D3) sertraline 25 mg tablet 50 mg PO DAILY 02/06/24 12/13/24 History cyanocobalamin (vitamin B-12) 1,000 mcg IM .COMPLEX 12/14/24 11/30/24 History 1,000 mcg/mL injection solution lisinopril 10 mg tablet 10 mg PO DAILY 12/14/24 12/14/24 History aspirin 81 mg capsule 81 mg PO DAILY #30 caps 07/19/25 Unknown Rx lorazepam 0.5 mg tablet 0.5 mg PO TID PRN PRN panic attack 07/29/25 Unknown History pantoprazole 40 mg tablet,delayed 40 mg PO DAILY 07/29/25 Unknown History release Allergy/AdvReac Type Severity Reaction Status Date / Time No Known Allergies Allergy Verified 07/29/25 00:02 Family History Mother CAD (coronary artery disease) Brother CAD (coronary artery disease) CABG Brother CAD (coronary artery disease) Surgical History Status post bilateral inguinal hernia repair Status post cardiac surgery History of heart artery stent H/O cardiac catheterization History of tonsillectomy 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) Stented coronary artery (10/28/19) H/O coronary artery bypass surgery History of endovascular stent graft for abdominal aortic aneurysm (AAA) History of left heart catheterization Social History Smoking Status: Former smoker how long ago did patient quit smokin years ago alcohol intake: never substance use type: does not use caffeine: Yes Type: coffee Number of servings: 4 ROS ROS ED ROS Narrative Critical care caveat applies EXAM Physical Exam Narrative Exam Narrative: Patient is afebrile but hypertensive blood pressure of 209/110 tachypneic and hypoxic with coarse lung sounds audible from even without using a stethoscope but he had coarse crackles using an ultrasound images were not saved however he had diffuse B-lines bilaterally indicative of pulmonary edema. Heart rate was normal he was 94% on but appeared to be 6 L nasal cannula. Intact MSPs. Const Vital Signs: 07/28/25 23:57 07/28/25 23:57 07/29/25 00:09 Temperature 98 F Temperature Source Temporal Pulse Rate 92 88 Respiratory Rate 35 H Respiratory Effort Short of Breath Labored Respiratory Pattern Blood Pressure 209/121 H 209/121 H Blood Pressure Mean 150 Pulse Ox 94 Oxygen Delivery Method Nasal Cannula Room Air Oxygen Flow Rate (L/min) 4 Fraction of Inspired Oxygen (FIO2) 07/29/25 00:12 07/29/25 00:13 07/29/25 00:13 Temperature Temperature Source Pulse Rate 87 Respiratory Rate 24 H Respiratory Effort Respiratory Pattern Tachypnea Blood Pressure Blood Pressure Mean Pulse Ox 94 94 Oxygen Delivery Method Bi-pap Bi-pap Oxygen Flow Rate (L/min) Fraction of Inspired Oxygen (FIO2) 40 50 50 07/29/25 00:19 07/29/25 00:19 07/29/25 00:21 Temperature Temperature Source Pulse Rate 84 84 Respiratory Rate 28 H 26 H Respiratory Effort Respiratory Pattern Blood Pressure 104/65 Blood Pressure Mean 78 Pulse Ox 94 94 94 Oxygen Delivery Method Bi-pap Oxygen Flow Rate (L/min) Fraction of Inspired Oxygen (FIO2) 50 07/29/25 00:24 07/29/25 00:27 07/29/25 00:30 Temperature Temperature Source Pulse Rate 82 86 80 Respiratory Rate 27 H 28 H 26 H Respiratory Effort Respiratory Pattern Blood Pressure 105/69 116/71 103/62 Blood Pressure Mean 81 84 76 Pulse Ox 94 98 96 Oxygen Delivery Method Oxygen Flow Rate (L/min) Fraction of Inspired Oxygen (FIO2) 07/29/25 00:33 07/29/25 00:36 07/29/25 00:39 Temperature Temperature Source Pulse Rate 80 80 82 Respiratory Rate 23 H 19 H 20 H Respiratory Effort Respiratory Pattern Blood Pressure 91/65 94/59 L 106/64 Blood Pressure Mean 73 71 78 Pulse Ox 94 96 96 Oxygen Delivery Method Oxygen Flow Rate (L/min) Fraction of Inspired Oxygen (FIO2) 07/29/25 00:42 07/29/25 00:45 07/29/25 00:48 Temperature Temperature Source Pulse Rate 81 78 74 Respiratory Rate 20 H 26 H 23 H Respiratory Effort Respiratory Pattern Blood Pressure 94/62 92/61 106/59 L Blood Pressure Mean 73 72 71 Pulse Ox 96 96 96 Oxygen Delivery Method Oxygen Flow Rate (L/min) Fraction of Inspired Oxygen (FIO2) 07/29/25 00:51 07/29/25 00:54 07/29/25 00:57 Temperature Temperature Source Pulse Rate 69 67 66 Respiratory Rate 21 H 25 H 23 H Respiratory Effort Respiratory Pattern Blood Pressure 85/53 L 84/61 L 98/62 Blood Pressure Mean 63 69 72 Pulse Ox 96 97 96 Oxygen Delivery Method Oxygen Flow Rate (L/min) Fraction of Inspired Oxygen (FIO2) 07/29/25 01:00 07/29/25 01:03 07/29/25 01:06 Temperature Temperature Source Pulse Rate 69 67 66 Respiratory Rate 28 H 24 H 23 H Respiratory Effort Respiratory Pattern Blood Pressure 105/62 100/61 102/61 Blood Pressure Mean 75 75 75 Pulse Ox 97 96 95 Oxygen Delivery Method Oxygen Flow Rate (L/min) Fraction of Inspired Oxygen (FIO2) 07/29/25 01:09 07/29/25 01:12 07/29/25 01:15 Temperature Temperature Source Pulse Rate 65 64 65 Respiratory Rate 22 H 23 H 26 H Respiratory Effort Respiratory Pattern Blood Pressure 98/55 L 110/57 L 96/65 Blood Pressure Mean 68 72 76 Pulse Ox 95 97 96 Oxygen Delivery Method Oxygen Flow Rate (L/min) Fraction of Inspired Oxygen (FIO2) 07/29/25 01:18 07/29/25 01:19 07/29/25 01:21 Temperature Temperature Source Pulse Rate 63 64 65 Respiratory Rate 24 H 24 H 21 H Respiratory Effort Respiratory Pattern Blood Pressure 79/59 L 81/57 L 80/50 L Blood Pressure Mean 67 65 60 Pulse Ox 95 96 95 Oxygen Delivery Method Oxygen Flow Rate (L/min) Fraction of Inspired Oxygen (FIO2) 07/29/25 01:24 07/29/25 01:27 07/29/25 01:30 Temperature Temperature Source Pulse Rate 65 62 66 Respiratory Rate 25 H 23 H 20 H Respiratory Effort Respiratory Pattern Blood Pressure 95/60 88/52 L 109/62 Blood Pressure Mean 72 63 76 Pulse Ox 98 97 100 Oxygen Delivery Method Oxygen Flow Rate (L/min) Fraction of Inspired Oxygen (FIO2) 07/29/25 01:40 07/29/25 01:45 Temperature Temperature Source Pulse Rate 61 61 Respiratory Rate 24 H 21 H Respiratory Effort Respiratory Pattern Blood Pressure 102/54 L Blood Pressure Mean 69 Pulse Ox 98 99 Oxygen Delivery Method Oxygen Flow Rate (L/min) Fraction of Inspired Oxygen (FIO2) MDM MDM MDM Narrative Medical decision making narrative: Nursing notes, triage notes, available previous documentation, and vital signs were reviewed. Any discrepancies noted were addressed. Differential Diagnoses: Flash pulmonary edema we will evaluate for ACS lower suspicion for PE or aortic etiology for infectious causes Interventions: BiPAP, 5 nitro tabs, 1 mg of Bumex we were about to give Vasotec as well as started nitro drip however patient's blood pressure had rapidly improved and he was appearing much more comfortable with the interventions already performed Labs Reviewed: No leukocytosis leukopenia or anemia no significant electrolyte abnormality creatinine is 1.2 with a GFR of 58 initial troponin is 215 however on 07/18/2025 it was nearly 2000 and his proBNP however is significantly more elevated at 6500. Delta troponin is pending Imaging Reviewed: Personally reviewed and interpreted by me: Bedside ultrasound in which the images were not saved showed diffuse B-lines bilaterally indicative of pulmonary edema it appeared that his EF was reduced. Chest x-ray: My personal review and interpretation appears like he has pulmonary edema you can also see sternotomy wires EKG: Normal sinus rhythm rate of [address] segment elevation QTc was prolonged at 510. EKG interpretation is noted and agreed to in the EMR. The interpretation of this patient's EKG contributed directly to the care and management of this patient. Previous Documentation Reviewed: None available or applicable at this time. ED Course: Patient presenting with acute hypoxic respiratory failure demonstrating flash pulmonary edema clinically as well as based off of bedside ultrasound imaging interventions were initiated ultimately has not needed the IV nitro drip or the Vasotec at this time but we will keep a close eye on him to monitor for additional interventions patient will require admission to the hospital. 0150: I discussed with the hospitalist who is agreeable to admission into the intensive care unit. Again we did not need to initiate any sort of IV nitro or Vasotec because he had rapid improvement off the interventions that were initially applied his troponin was downtrending compared to a little more than a week ago when he had an elevated troponin of nearly 2000 35 minutes of critical care time utilized in managing the patient. This is due to high probability of and deterioration of the patient based on the patient's condition and excludes any separately billable procedures. This note was made utilizing voice recognition software. All attempts were made to correct spelling or other errors prior to note completion. However, due to the fast-paced nature of emergency medicine, some errors may still be present. Lab Data Labs: Laboratory Results - last 24 hr 07/29/25 00:00 WBC 9.2 RBC 4.63 Hgb 13.3 Hct 40.1 MCV 86.6 MCH 28.7 MCHC 33.2 RDW Std Deviation 47.0 H RDW Coeff of Zoë 15.0 H Plt Count 144 L MPV 9.5 Immature Gran % (Auto) 0.400 Neut % (Auto) 79.2 H Lymph % (Auto) 11.2 L [place] % (Auto) 7.1 Eos % (Auto) 1.8 Baso % (Auto) 0.3 Absolute Neuts (auto) 7.3 Absolute Lymphs (auto) 1.03 Nucleated RBC % 0 PT 15.1 H INR 1.2 APTT 76.1 H Sodium 136 Potassium 4.0 Chloride 104 Carbon Dioxide 19.4 L Anion Gap 13 BUN 24 H Creatinine 1.22 H Estim Creat Clear Calc 46.41 L Est GFR (MDRD) Non-Af 58 L BUN/Creatinine Ratio 19.8 Glucose 167 H Calcium 9.3 Troponin T High Sens 215 H* D NT pro BNP II 6585 H Radiography Diagnostic Testing: Clinical Impression(s) from Imaging Studies Chest X-Ray 07/29/25 00:20 IMPRESSION: Mild increase in interstitial pulmonary congestion/infiltrates. Reading Location: [place] [id number] Discharge Plan Triage Chief Complaint: Shortness of Breath ED Provider: Jenny Shah Dx/Rx/DC Orders Clinical Impression: Acute hypoxic respiratory failure, Flash pulmonary edema, Dyspnea, History of heart failure Prescriptions: No Action finasteride 5 mg tablet 5 mg PO DAILY atenolol 50 mg tablet 50 mg PO DAILY sertraline 25 mg tablet 50 mg PO DAILY tamsulosin 0.4 mg capsule 0.4 mg PO BID cholecalciferol (vitamin D3) [Vitamin D3] 50 mcg (2,000 unit) capsule 50 mcg PO DAILY cyanocobalamin (vitamin B-12) 1,000 mcg/mL solution 1,000 mcg IM .COMPLEX Rx Instructions: 1,000 mcg intramuscularly QOWEEK; lisinopril 10 mg tablet 10 mg PO DAILY aspirin 81 mg capsule 81 mg PO DAILY Qty: 30 3RF lorazepam 0.5 mg tablet 0.5 mg PO TID PRN PRN (Reason: panic attack) pantoprazole 40 mg tablet,delayed release (DR/EC) 40 mg PO DAILY clopidogrel 75 mg tablet 75 mg PO DAILY Qty: 90 3RF simvastatin 20 mg tablet 20 mg PO QHS Qty: 90 4RF Primary Care Provider: Robel Onofre Referrals: Robel Onofre DO [Primary Care Provider, Medical] Print Language: [place]
--- OUTSIDE RECORDS SUMMARY | 2025-07-29 00:39 | XMS RPT_ITS | CCD ---
Author Organization [facility] Inform ion [facility] Care Team Providers Care Sampler Ovens Name Role Phone Tony, Harumi Y Unavailable Unavailable Teodora RN, Deed Ewing Unavailable Unavailaneesh Middleton RN, Saida A [...] Provider Dr. Robel Onofre Referring Provider Roof STULL HEWER, STULL HEWER-C John Murphy Attending Provider Robel Onofre DO Primary Care Provider Robel Onofre DO Primary Care Provider Dr. Robel Onofre Primary Care Provider Dr. Miladys Roca Emergency Provider Friend, Dr. Byers Attending Provider [phone] Dr. Rico Holliday Admit Provider Dr. Rico Holliday Attending Provider Dr. Rico Holliday Other Provider Dr. Mikaela Beck Attending Provider Dr. Mikaela Beck Other Provider FLORENCIO TESFAYE Admitting Unavailable FLORENCIO TESFAYE Attending Unavailable ONOFRE, ROBEL L Primary Care Unavailable Onofre DORobel L Primary Care Provider Onofre DORobel L Primary Care Provider Foote MANAGER OF [employer]IR[employer] SALES.PMO CONSULTANT, Cat Argentina Unavailable Cristóbal MANAGER OF [employer] SALES.PMO CONSULTANT, Bessie Unavailable Foote MANAGER OF [employer] SALES.PMO CONSULTANT, Cat Elaine Unavailable Kingston OROZCO, Dr. Huston Primary Care Provider Maria Esther OROZCO, Dr. Jain Emergency Provider Elías MANAGER OF [employer] SALES.PMO CONSULTANT, Una Duvall Unavailable Maria Esther OROZCO, Dr. Jain Attending Provider Kingston OROZCO, Dr. Huston Referring Provider Samir CAMPA, Dr. Berry Attending Provider ASHA HERNANDEZ Attending Unavailable ONOFRE, ROBEL Primary Care Unavailable ONOFRE, ROBEL Attending Unavailable ONOFRE, ROBEL Primary Care Unavailable ONOFRE, ROBEL Attending Unavailable ONOFRE, ROBEL Primary Care Unavailable ONOFRE, ROBEL Referring Unavailable ONOFRE, ROBEL Primary Care Unavailable ONOFRE, ROBEL Referring Unavailable NOOFRE, ROBEL Primary Care Unavailable ONOFRE, ROBEL Attending [...] TABS One tablet by mouth daily ASPIRIN [id number] Saida Middleton RN Start: 04-17-2007 End: 07-03-2022 [...] TABS One tablet by mouth daily ATENOLOL [id number] Anuradha Hickey Comment on above: Take 1 tablet by triston th once daily. cholecalciferol 0.05 mg oral capsule (20 sources) Vitamin D Start: take 1 capsule by mouth once daily Cholecalciferol, Vitamin D3, (VITAMIN D-3) 50 mcg (2,000 unit) cap Indications: Vitamin D deficiency Take 1 capsule by mouth once daily. 90 capsule 3 11/24/2024 Active Start: 06-13-2022 take 1 capsule by [facility] once daily Cholecalciferol (Vitamin D3) (Vitamin [...] Comment on above: Take 1 capsule by [facility] once daily. finasteride 5 mg oral tablet (20 sources) 5-alpha Reductase Inhibitor Start: 02-24-20 End: 10-08-19 take 1 tablet by mouth once daily Finasteride 5 mg tablet Active 5 mg PO DAILY February 23, 2018 12:00am prostate Comment on above: Take 1 tablet by [facility] once daily. iv contrast (will be [...] TABS One tablet by mouth daily LISINOPRIL [id number] Florencio Ramires MD Start: 07-03-2015 take 1 tablet by triston th twice daily LISINOPRIL 10 MG TABS One tablet by mouth twice daily LISINOPRIL [id number] Saida Middleton RN Start: 01-03-2014 End: 07-03-2015 take 1 tablet by mouth once daily LISINOPRIL 20 MG TABS One tablet by mouth daily LISINOPRIL [id number] Florencio Ramires MD Comment on above: Take [...] MG CAPS 1 tab daily TAMSULOSIN HCL [id number] Mirian Ortiz MANAGER OF [employer] SALES-PMO CONSULTANT Start: 05-31-2014 End: 07-03-2015 take 1 tablet by mouth once daily TAMSULOSIN HCL 0.4 MG CAPS One tablet by mouth daily TAMSULOSIN HCL [id number] Florencio Ramires MD Comment on above: Take [...] 1 tablet by triston once daily. Vitamins A,C,F-Cmsq-Bnarwh (Preservision Areds) 14,[phone] fzbi-ze-jzyh capsule (1 source) Start: 2021 take 1 capsule by mouth twice daily Vitamins A,C,U-Cupu-Dvqroc (Preservision Areds) 14,320-226-200 cnme-ly-nbht capsule Active 1 CAP PO TWICE A [...] as needed for up to 5 days. [id number] 200 actuat albuterol 0.09 mg/actuat metered dose [...] TABS One tablet by mouth daily EZETIMIBE-SIMVASTATIN 80143092443 Florencio Ramires MD Start: 05-24-2013 take 1 tablet by triston th once daily VYTORIN 10-20 MG TABS One tablet by mout h daily EZETIMIBE-SIMVASTATIN [id number] Florencio Ramires MD Start: 05-24-2013 take 1 tablet by triston th once daily VYTORIN 10-20 MG TABS One tablet by mout h daily EZETIMIBE-SIMVASTATIN [id number] Florencio Ramires MD hydroCHLOROthiazide 12.5 mg oral [...] Two tablets by mouth twice daily IBUPROFEN 31201050245 Saida Middleton RN 24 hr isosorbide mononitrate [...] 1/2 tab twice a day ISOSORBIDE MONONITRATE [id number] Scot D Bernstein DO Start: 11-11-2011 take 1 tablet by triston th twice daily ISOSORBIDE MONONITRATE 10 MG TABS One half Tablet by mouth twice daily ISOSORBIDE MONONITRATE 47518753111 Florencio Ramires MD Comment on above: Take [...] one tab twice a day MULTIPLE VITAMINS-MINERALS [id number] Scot D Bernstein DO MULTIPLE VITAMINS-MINERALS (1 source) Start: 05-12-2018 PRESERVISION A REDS 2+MULTI VIT CAPS twice a day MULTIPLE VITAMINS-MINERALS [id number] Scot D Bernstein DO 24 hr nitroglycerin 0.1 mg/hr transdermal system (20 sources) Nitrate Vasodilator Start: 12-12-2010 End: 11-11-2011 NITRO-DUR 0.1 MG/HR PT24 Apply every morning & remove at night NITROGLYCERIN 35379188303 Reinaldo Diaz MD Start: 12-12-2010 NITROGLYCERIN 0.4 MG SUBL 1 tablet under the tongue every 5 minutes times 3 as needed for chest pain. NITROGLYCERIN [id number] Jennifer Tomlin RN Start: 12-12-2010 End: 11-11-2011 NITRO-DUR 0.1 MG/HR PT24 Tammi ly every morning & remove at night NITROGLYCERIN [id number] Reinaldo Diaz MD Start: 12-12-2010 NITRO-DUR 0.1 MG/HR PT24 Apply every morning & remove at night NITROGLYCERIN 89406365711 Anuradha Hickye CMPSV-3-SSBX ETHYL ESTERS (20 sources) Start: 12-02-2011 take 2 capsules by mouth twice daily LOVAZA 1 GM CAPS Two capsules by mouth twice daily EQWLT-6-QUDA ETHYL ESTERS 74654756032 Jennifer Tomlin RN Start: 12-02-2011 End: 11-11-2012 take 2 capsules by mouth twice daily LOVAZA 1 GM CAPS Two capsules by mouth twice daily WYDPC-5-MKTH ETHYL ESTERS [id number] Reinaldo Diaz MD Start: 12-02-2011 End: 11-11-2012 take 2 capsules by mouth twice daily LOVAZA 1 GM CAPS Two capsules by mouth twice daily FGUZY-1-XRAS ETHYL ESTERS 58979696461 Jennifer Tomlin RN Start: 12-02-2011 take 2 capsules by [facility] twice daily LOVAZA 1 GM CAPS Two capsules by mouth twice daily TPBLE-6-CFHP ETHYL ESTERS [id number] Jennifer Tomlin RN Start: 12-02-2011 End: 11-11-2012 take 2 capsules by mouth twice daily LOVAZA 1 GM CAPS Two capsules by mouth twice daily OFSYW-8-JWXE ETHYL ESTERS [id number] Reinaldo Diaz MD Start: 12-12-2010 take 1 tablet by triston th twice daily LOVAZA 1 GM CAPS One tablet by mouth twice daily IREXO-7-UBXZ ETHYL ESTERS [id number] Anuradha Hickey Start: 12-12-2010 take 1 tablet by triston twice daily LOVAZA 1 GM CAPS One tablet by mouth twice daily KDKLC-0-UJMC ETHYL ESTERS [id number] Anuradha Hickey Start: 12-12-2010 take 1 tablet by triston twice daily LOVAZA 1 GM CAPS One tablet by mouth twice daily SMKAU-5-PUIA ETHYL ESTERS [id number] Anuradha Hickey omeprazole 20 mg delayed release oral capsule (20 sources) Proton Pump Inhibitor Start: 04-03-2017 OMEPRAZO LE 20 MG TBEC one tab a day OMEPRAZOLE [id number] Mandeep Bernstein DO Start: 12-12-2010 End: 12-27-2024 take 1 capsule by mouth once daily Omeprazole 20 MG capsule Discontinued 20 mg PO DAILY November 12, 2017 12:00am April 14, 2020 9:00am 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 PRAVASTATIN SODIUM 10227419693 Florencio Ramires MD ramipril 10 mg oral tablet (20 sources) Angiotensin Converting Enzyme Inhibitor Start: 11-12-19 13 End: 01-04-20 14 take 1 tablet by mouth twice daily ALTACE 10 MG CAPS One tablet by mouth twice daily RAMIPRIL [id number] Reinaldo Diaz MD Start: 11-11-2012 End: 01-03-2014 take 1 tablet by mouth twice daily ALTACE 10 MG CAPS One tablet by mouth twice daily RAMIPRIL [id number] Reinaldo Diaz MD Start: 05-25-2012 take 1 tablet by triston th twice daily ALTACE 5 MG CAPS One tablet by mouth twice daily RAMIPRIL [id number] Reinaldo Diaz MD Start: 11-11-2011 take 1 tablet by triston th twice daily ALTACE 5 MG CAPS One tablet by mouth twice daily RAMIPRIL [id number] Reinaldo Diaz MD Start: 12-12-2010 take 1 tablet by triston th twice daily ALTACE 2.5 MG CAPS One tablet by mouth twice daily RAMIPRIL [id number] Anuradha Hickey Start: 12-12-2010 take 1 tablet by triston th twice daily ALTACE 2.5 MG CAPS One tablet by mouth twice daily RAMIPRIL [id number] Anuradha Hickey rosuvastatin calcium 10 mg oral tablet (8 sources) HMG-CoA Reductase Inhibitor Start: 05-28-2013 take 1 tablet by mouth at bedtime CRESTOR 10 MG TABS One tablet by mouth at bedtime. ROSUVASTATIN CALCIUM 25223898245 Florencio Ramires MD simvastatin 20 mg oral [...] MG TABS 1/2 tab at bedtime SIMVASTATIN [id number] Scot Bekah Bernstein DO Start: 06-04-2013 End: [...] on above: Take 2 tablets by mo [facility] twice daily. Vitamins A,C,B-Jisd-Brbawh (3 sources) Start: 11-12-2017 End: 04-14-2020 take 1 capsule by mouth twice daily Vitamins A,C,A-Vlis-Hadsem Discontinued 1 CAP PO TWICE A DAY November 12, 2017 10:06am April 14, 2020 9:00am Start: 11-12-2017 End: 04-14-2020 take 1 capsule by mouth twice daily Vitamins A,C,O-Onyr-Dgehcv Discontinued 1 CAP PO TWICE A DAY November 12, 2017 12:00am April 14, 2020 9:00am Vitamins A,C,Z-Udac-Nxkfaf 1 EACH capsule (2 sources) Start: 11-12-2017 End: 04-14-2020 take 1 capsule by mouth twice daily Vitamins A,C,I-Hvbw-Mmxiif 1 EACH capsule Discontinued 1 NMA PO TWICE A DAY November 12, 2017 12:00am April 14, 2020 9:00am [facility] Start: 11-12-2017 End: 04-14-2020 take 1 capsule by mouth twice daily Vitamins A,C,B-Txpu-Rllffh 1 EACH capsule Discontinued 1 NMA PO [...] within filter wire. 10/28/2019 per DJN @ [facility] Coronary atherosclerosis and other heart disease [...] (3 sources) Long-term drug therapy; Translations: [Other fci (current) drug therapy] Onset: 1 12-12-2010 Unclassified [...] within filter wire. 10/28/2019 per [facility]N @ [facility] Deficiency and other anemia (20 sources) [...] 04-03-2017 Episodic Other aftercare (5 sources) Other intermission coordinator (current) drug therapy; Translations: [Other intermission coordinator (current) drug therapy] Onset: 1 12-12-2010 Episodic [...] 06-27-2025 CNTHERAPY OT/PT/Speech Visit (LDSP) TODD MATAMOROS ([id number]) 1940 M Date Time Provider Department 06/27/25 1:00 PM SALLY STEELE LDSP Date Time Provider Department Center 06/27/2025 1:00 PM [id number] STEELE [facility] Reason for Visit: Speech Evaluation [6677] Visit Diagnosis:Oral phase dysphagia [R13.11] Allergies As of Date: 06/27/2025 (No Known Allergies) Date Reviewed: 12/14/2024 Reviewed by: Asha Hernandez, GIA.PMO CONSULTANT - Fully Assessed Prescriptions as of 06/27/2025 [...] Apply sparingly to area for rash/itching. Normal [facility] Rosanna 06-25-2025 LEON Telephone (FAMPWS) TODD MATAMOROS ([id number]) 1940 M Date Time Provider Department 06/25/25 ROBEL ONOFREPWS During your visit today, we recorded the following information about you: Robel Onofre DO 06/25/2025 7:58 AM Signed Please fax Speech therapy referral to [facility]. This was ordered yesterday DO Jason Hernandez Linda M, LPN 06/25/2025 9:07 AM Signed Order faxed to [facility] as requested. Allergies As of Date: 06/25/2025 (No Known Allergies) Date Reviewed: 12/14/2024 Reviewed by: Asha Hernandez, MANAGER OF [employer] SALES.PMO CONSULTANT - Fully Assessed Prescriptions as of 06/25/2025 [...] Status:Closed by HEIDI ABDI on 06/25/25 Normal [facility] 25(OH)[facility]3 [facility] 25-hydroxyvitamin D3 [Mass/Vol] 46.4 ng/mL Normal 31.0-80.0 [facility] Comment on above: Order Comment: Christian modi Type: BLOOD SPECIMENOrdering Facility: [facility] Address: [address] [place] [address] Result Comment: Clas sification of 25 OH Vitamin D status: Deficiency/Insufficiency: < or = 30 ng/ml. Sufficiency/Optimal Levels: 31-80 ng/mL Toxicity: > 100 ng/mL. Test performed by chemiluminescent immunoassay. Performed By: #### 1 989-3 ####[facility] [id number] [place] [address] [place] CBC W Auto Differential pane l (Bld)on 06-24-2025 Basophils (Bld) [#/Vol] 0.04 10*3/uL Normal <0.11 [facility] Comment on above: Order Comment: Christian modi Type: BLOOD SPECIMENOrdering Facility: [facility] Address: [address] [place] [address] Performed By: #### 5 7021-8 ####[facility] [id number] [place] [address] [place] Basophils/100 WBC (Bld) 0.6 % Normal C [facility] Comment on above: Order Comment: Christian modi Type: BLOOD SPECIMENOrdering Facility: [facility] Address: [address] [place] [address] Performed By: #### 5 7021-8 ####[facility] [id number] [place] [address] [place] Differential cell count method Nom (Bld) Auto Normal [facility] Comment on above: Order Comment: Speci men Type: BLOOD SPECIMENOrdering Facility: [facility] Address: [address] [place] [address] Performed By: #### 5 7021-8 ####[facility] [id number] [place] [address] [place] Eosinophils (Bld) [#/Vol] 0.33 10*3/uL Normal <0.46 [facility] Comment on above: Order Comment: Speci men Type: BLOOD SPECIMENOrdering Facility: [facility] Address: [address] [place] [address] Performed By: #### 5 7021-8 ####[facility] [id number] [address] [place] Eosinophils/100 WBC (Bld) 4.7 % Normal [facility] Comment on above: Order Comment: Speci men Type: BLOOD SPECIMENOrdering Facility: [facility] Address: [address] [place] [address] Performed By: #### 5 7021-8 ####[facility] [id number] [address] [place] Erythrocyte distribution width (RBC) [Ratio] 14.6 % Normal 11.5-15.0 [facility] Comment on above: Order Comment: Speci men Type: BLOOD SPECIMENOrdering Facility: [facility] Address: [address] [place] [address] Performed By: #### 5 7021-8 ####[facility] [id number] [address] [place] Hematocrit (Bld) [Volume fraction] 42.5 % Normal 39.0-51.0 [facility] Comment on above: Order Comment: Speci men Type: BLOOD SPECIMENOrdering Facility: [facility] Address: [address] [place] [address] Performed By: #### 5 7021-8 ####[facility] [id number] [place] [address] [place] Hemoglobin (Bld) [Mass/Vol] 14.4 g/dL Normal 13.0-17.0 [facility] Comment on above: Order Comment: Speci men Type: BLOOD SPECIMENOrdering Facility: [facility] Address: [address] [place] [address] Performed By: #### 5 7021-8 ####[facility] [id number] [place] [address] [place] Immature granulocytes (Bld) [#/Vol] 10*3/uL Normal <0.10 [facility] Comment on above: Order Comment: Speci men Type: BLOOD SPECIMENOrdering Facility: [facility] Address: [address] [place] [address] Performed By: #### 5 7021-8 ####[facility] [id number] [place] [address] [place] Immature granulocytes/100 WBC (Bld) 0.3 % Normal [facility] Comment on above: Order Comment: Speci men Type: BLOOD SPECIMENOrdering Facility: [facility] Address: [address] [place] [address] Performed By: #### 5 7021-8 ####[facility] [id number] [place] [address] [place] Lymphocytes (Bld) [#/Vol] 1.44 10*3/uL Normal 1.00-4.00 [facility] Comment on above: Order Comment: Speci men Type: BLOOD SPECIMENOrdering Facility: [facility] Address: [address] [place] [address] Performed By: #### 5 7021-8 ####[facility] [id number] [place] [address] [place] Lymphocytes/100 WBC (Bld) 20.3 % Normal [facility] Comment on above: Order Comment: Speci men Type: BLOOD SPECIMENOrdering Facility: [facility] Address: [address] [place] [address] Performed By: #### 5 7021-8 ####[facility] [id number] [place] [address] [place] MCH (RBC) [Entitic mass] 30.1 pg Normal 26.0-34.0 [facility] Comment on above: Order Comment: Speci men Type: BLOOD SPECIMENOrdering Facility: [facility] Address: [address] [place] [address] Performed By: #### 5 7021-8 ####[facility] [id number] [place] [address] [place] MCHC (RBC) [Mass/Vol] 33.9 g/dL Normal 30.5-36.0 [facility] Comment on above: Order Comment: Speci men Type: BLOOD SPECIMENOrdering Facility: [facility] Address: [address] [place] [address] Performed By: #### 5 7021-8 ####[facility] [id number] [place] [address] [place] MCV (RBC) [Entitic vol] 88.7 fL Normal 80.0-100.0 C [facility] Comment on above: Order Comment: Speci men Type: BLOOD SPECIMENOrdering Facility: [facility] Address: [address] [place] [address] Performed By: #### 5 7021-8 ####[facility] [id number] [place] [address] [place] Monocytes (Bld) [#/Vol] 0.77 10*3/uL Normal <0.87 [facility] Comment on above: Order Comment: Speci men Type: BLOOD SPECIMENOrdering Facility: [facility] Address: [address] [place] [address] Performed By: #### 5 7021-8 ####[facility] [id number] [place] [address] [place] Monocytes/100 WBC (Bld) 10.9 % Normal C [facility] Comment on above: Order Comment: Speci men Type: BLOOD SPECIMENOrdering Facility: [facility] Address: [address] [place] [address] Performed By: #### 5 7021-8 ####[facility] [id number] [place] [address] [place] Neutrophils (Bld) [#/Vol] 4.48 10*3/uL Normal 1.45-7.50 [facility] Comment on above: Order Comment: Speci men Type: BLOOD SPECIMENOrdering Facility: [facility] Address: [address] [place] [address] Performed By: #### 5 7021-8 ####[facility] [id number] [place] [address] [place] Neutrophils/100 WBC (Bld) 63.2 % Normal [facility] Comment on above: Order Comment: Speci men Type: BLOOD SPECIMENOrdering Facility: [facility] Address: [address] [place] [address] Performed By: #### 5 7021-8 ####[facility] [id number] [place] [address] [place] Nucleated RBC (Bld) [#/Vol] 10*3/uL Normal <0.01 [facility] Comment on above: Order Comment: Speci men Type: BLOOD SPECIMENOrdering Facility: [facility] Address: [address] [place] [address] Performed By: #### 5 7021-8 ####[facility] [id number] [place] [address] [place] Nucleated RBC/100 WBC (Bld) [Ratio] 0.0 /100 WBC Normal [facility] Comment on above: Order Comment: Speci men Type: BLOOD SPECIMENOrdering Facility: [facility] Address: [address] [place] [address] Performed By: #### 5 7021-8 ####[facility] [id number] [place] [address] [place] Platelet mean volume (Bld) [Entitic vol] 9.9 fL Normal 9.0-12.7 [facility] Comment on above: Order Comment: Speci men Type: BLOOD SPECIMENOrdering Facility: [facility] Address: [address] [place] [address] Performed By: #### 5 7021-8 ####[facility] [id number] [place] [address] [place] Platelets (Bld) [#/Vol] 134 10*3/uL Low 150-400 [facility] Comment on above: Order Comment: Speci men Type: BLOOD SPECIMENOrdering Facility: [facility] Address: [address] [place] [address] Performed By: #### 5 7021-8 ####[facility] [id number] [place] [address] [place] RBC (Bld) [#/Vol] 4.79 10*6/uL Normal 4.20-6.00 [facility] Comment on above: Order Comment: Speci men Type: BLOOD SPECIMENOrdering Facility: [facility] Address: [address] [place] [address] Performed By: #### 5 7021-8 ####[facility] [id number] [place] [address] [place] WBC (Bld) [#/Vol] 7.08 10*3/uL Normal 3.70-11.00 [facility] Comment on above: Order Comment: Speci men Type: BLOOD SPECIMENOrdering Facility: [facility] Address: [address] [place] [address] Performed By: #### 5 7021-8 ####[facility] [id number] [place] [address] [place] CNOVon 06-24-2025 CNOV Office Visit (FAMPWS ) TODD MATAMOROS ([id number]) 1940 M Date Time Provider Department 06/24/25 10:00 AM [facility] During your visit today, we recorded the [...] taking medications as prescribed. Continues to see Office Secretary for followup Iron deficiency, eating iron rich [...] Macular degeneration NSTEMI (non-ST elevated myocardial infarction) ([facility]) 10/28/2019 Osteoarthritis of left hip Paresthesia PMH [...] 07/28/2007 DIR RPR ANEURYSM ABDOMINAL AORTA 04/20/2011 [facility] EYLEA (AFLIBERCEPT) 2MG INTRAVITREAL INJECTION OD (RIGHT [...] Age of Onset Heart Mother age 60 [place], smoker None Father age 77 MVA Cataract [...] (PROSCAR) 5 (more content not included)... Normal [facility] Comprehensive metabolic 2000 panelon 06-24-2025 Albumin [Mass/Vol] 4.3 g/dL Normal 3.9-4.9 [facility] Comment on above: Order Comment: Speci men Type: BLOOD SPECIMENOrdering Facility: [facility] Address: [address] [place] [address] Performed By: #### L IPNF, 68536-1, 3024-7, 3016-3 ####[facility] [id number] [place] [address] [place] ALP [Catalytic activity/Vol] 116 U/L High 38-113 [facility] Comment on above: Order Comment: Speci men Type: BLOOD SPECIMENOrdering Facility: [facility] Address: [address] [place] [address] Performed By: #### L IPNF, 92848-9, 3024-7, 3016-3 ####[facility] [id number] [place] [address] [place] ALT [Catalytic activity/Vol] 11 U/L Normal 10-54 [facility] Comment on above: Order Comment: Speci men Type: BLOOD SPECIMENOrdering Facility: [facility] Address: [address] [place] [address] Performed By: #### L IPNF, 25409-2, 3024-7, 3016-3 ####[facility] [id number] [place] [address] [place] Anion gap [Moles/Vol] 9 mmol/L Normal 8-15 [facility] [facility] Comment on above: Order Comment: Speci men Type: BLOOD SPECIMENOrdering Facility: [facility] Address: [address] [place] [address] Performed By: #### L IPNF, 06122-1, 4-7, 3016-3 ####[facility] [id number] [place] [address] [place] AST [Catalytic activity/Vol] 15 U/L Normal 14-40 [facility] Comment on above: Order Comment: Speci men Type: BLOOD SPECIMENOrdering Facility: [facility] Address: [address] [place] [address] Performed By: #### L IPNF, 80084-7, 3023-7, 6-3 ####[facility] [id number] [place] [address] [place] Bilirubin [Mass/Vol] 0.5 mg/dL Normal 0.2-1.3 [facility] Comment on above: Order Comment: Speci men Type: BLOOD SPECIMENOrdering Facility: [facility] Address: [address] [place] [address] Performed By: #### L IPNF, 80447-2, 3023-7, 3016-3 ####[facility] [id number] [place] [address] [place] Calcium [Mass/Vol] 9.4 mg/dL Normal 8.5-10.2 [facility] Comment on above: Order Comment: Speci men Type: BLOOD SPECIMENOrdering Facility: [facility] Address: [address] [place] [address] Performed By: #### L IPNF, 63208-6, 4-7, 3016-3 ####[facility] [id number] [place] [address] [place] Chloride [Moles/Vol] 106 mmol/L Normal 98-107 [facility] Comment on above: Order Comment: Speci men Type: BLOOD SPECIMENOrdering Facility: [facility] Address: [address] [place] [address] Performed By: #### L IPNF, 76152-6, 3024-7, 3016-3 ####[facility] [id number] [place] [address] [place] CO2 [Moles/Vol] 24 mmol/L Normal 22-30 [facility] Comment on above: Order Comment: Speci men Type: BLOOD SPECIMENOrdering Facility: [facility] Address: [address] [place] [address] Performed By: #### L IPNF, 02901-4, 3024-7, 3016-3 ####[facility] [id number] [place] [address] [place] Creatinine [Mass/Vol] 1.25 mg/dL High 0.73-1.22 [facility] Comment on above: Order Comment: Speci men Type: BLOOD SPECIMENOrdering Facility: [facility] Address: [address] [place] [address] Performed By: #### L IPNF, 49788-7, 3024-7, 3016-3 ####[facility] [id number] [place] [address] [place] eGFRcr SerPlBld CKD-EPI 2020 56 mL/min/1.73m??? Low >=60 [facility] Comment on above: Order Comment: Speci men Type: BLOOD SPECIMENOrdering Facility: [facility] Address: [address] [place] [address] Result Comment: Shannan mated Glomerular Filtration Rate [...] actual GFR. Performed By: #### L IPNF, 00907-4, 3023-7, 6-3 ####[facility] [id number] [place] [id number] [place] Glucose [Mass/Vol] 99 mg/dL Normal 74-99 [facility] Comment on above: Order Comment: Speci men Type: BLOOD SPECIMENOrdering Facility: [facility] Address: [address] [place] [address] Result Comment: The [place] Diabetes Association (ADA) provides guidance for cutoff [...] Standards of Medical Care in Diabetes 2016, [place] Diabetes Association. Diabetes Care. 2016.39(Suppl 1). Performed By: #### L IPNF, 49291-0, 7, 3 ####[facility] [id number] [place] [id number] [place] Potassium [Moles/Vol] 4.6 mmol/L Normal 3.7-5.1 [facility] Comment on above: Order Comment: Speci men Type: BLOOD SPECIMENOrdering Facility: [facility] Address: [address] [place] [id number] Performed By: #### L IPNF, 38112-6, 3023-7, 3015-3 ####[facility] [id number] [place] [id number] [place] Protein [Mass/Vol] 7.0 g/dL Normal 6.3-8.0 [facility] Comment on above: Order Comment: Speci men Type: BLOOD SPECIMENOrdering Facility: [facility] Address: [address] [place] [address] Performed By: #### L IPNF, 82150-2, 3024-7, 3016-3 ####[facility] [id number] [place] [id number] [place] Sodium [Moles/Vol] 139 mmol/L Normal 136-144 [facility] Comment on above: Order Comment: Speci men Type: BLOOD SPECIMENOrdering Facility: [facility] Address: [address] [place] [address] Performed By: #### L IPNF, 04087-5, 4-7, 6-3 ####[facility] [id number] [place] [address] [place] Urea nitrogen [Mass/Vol] 21 mg/dL Normal 9-24 [facility] Comment on above: Order Comment: Speci men Type: BLOOD SPECIMENOrdering Facility: [facility] Address: [address] [place] [address] Performed By: #### L IPNF, 80839-3, 4-7, 6-3 ####[facility] [id number] [place] [address] [place] HbA1c (Bld)on 06-24-2025 Average glucose Estimated from glycated hemoglobin (Bld) [Mass/Vol] 103 mg/dL Normal [facility] Comment on above: Order Comment: Speci men Type: BLOOD SPECIMENOrdering Facility: [facility] Address: [address] [place] [address] Result Comment: eAG: (Estimated average glucose) is a calculated value from HgbA1c and is floor representative of the average blood glucose level in the last 2-3 month period. Performed By: #### 5 5454-3 ####[facility] [id number] [place] [address] [place] HbA1c (Bld) [Mass fraction] 5.2 % Normal 4.3-5.6 [facility] Comment on above: Order Comment: Speci men Type: BLOOD SPECIMENOrdering Facility: [facility] Address: [address] [place] [address] Result Comment: [place] Diabetes Association guidelines indicate that patients with HgbA1c in the range 5.7-6.4% are at increased risk for development of diabetes, and intervention by lifestyle modification may be beneficial. HgbA1c greater or equal to 6.5% is considered diagnostic of diabetes. Performed By: #### 5 5454-3 ####[facility] [id number] [address] OF [place] LIPID PANEL, NONFASTINGon Cholesterol [Mass/Vol] 115 mg/dL Normal <200 [facility] Comment on above: Order Comment: Christian modi Type: BLOOD SPECIMENOrdering Facility: [facility] Address: [address] [place] [address] Result Comment: <200 mg/dL, Desirable 200-239 mg/dL, Borderline high >239 mg/dL, High Performed By: #### L IPNF, 35554-1, 3024-7, 3016-3 ####[facility] [id number] [address] [place] HDL CHOLESTEROL, NF 32 mg/dL Low >39 [facility] Comment on above: Order Comment: Christian modi Type: BLOOD SPECIMENOrdering Facility: [facility] Address: [address] [place] [address] Result Comment: 40-5 9 mg/dL, Acceptable >59 mg/dL, High: Negative risk factor for coronary heart disease <40 mg/dL, Low: Positive risk factor for coronary heart disease Performed By: #### L IPNF, 14195-3, 3024-7, 3016-3 ####[facility] [id number] [place] [address] [place] LDL CHOLESTEROL CALCULATED, NF 43 mg/dL Normal <100 [facility] Comment on above: Order Comment: Emiraudel modi Type: BLOOD SPECIMENOrdering Facility: [facility] Address: [address] [place] [address] Result Comment: <100 mg/dL, Optimal 100-129 mg/dL, Near optimal/above optimal 130-159 mg/dL, Borderline high 160-189 mg/dL, High >189 mg/dL, Very high Secondary prevention optimal LDL Cholesterol levels are recommended to be <70 mg/dL LDL cholesterol is calculated using the Polo-NIH equation. Performed By: #### L IPTITO, 33387-7, 3023-7, 3015-3 ####[facility] [id number] [address] [facility] LDL/HDL RATIO, NF 1.34 mg/dL Normal <2.54 [facility] Comment on above: Order Comment: Christian modi Type: BLOOD SPECIMENOrdering Facility: [facility] Address: [address] [place] [address] Result Comment: Refe rence: 1. National Cholesterol Education Program ATP III Guideline At-A-Glance Quick Desk Reference: National Heart, Lung, and Blood [place]. National Institutes of Health. 2001: NIH Publication No. 01-3305. 2. An International Atherosclerosis Society position paper: global recommendations for the management of dyslipidemia: executive summary, Atherosclerosis. 2014: 232(2):410-413. Performed By: #### L KEITH, 91971-7, 3024-02, 3 ####[facility] [id number] [address] [facility] NON HDL CHOL, NF 83 mg/dL Normal <130 [facility] Comment on above: Order Comment: Christian modi Type: BLOOD SPECIMENOrdering Facility: [facility] Address: [address] [place] [address] Result Comment: <130 mg/dL, Optimal 130-159 mg/dL, Near optimal/above optimal 160-189 mg/dL, Borderline high 190-219 mg/dL, High >219 mg/dL, Very high Secondary prevention optimal non HDL Cholesterol levels are recommended to be <100 mg/dL Performed By: #### L IPNF, 36840-6, 3023-7, 3015-3 ####[facility]CL[facility] [id number] [place] [address] [place] T CHOL/HDL RATIO NF 3.59 mg/dL Normal <5.10 [facility] Comment on above: Order Comment: Speci men Type: BLOOD SPECIMENOrdering Facility: [facility] Address: [address] [place] [address] Performed By: #### L IPNF, 86740-9, 3024-7, 3016-3 ####[facility]CLIA [id number] [place] [address] [place] TRIGLYCERIDES, NF 257 mg/dL High <150 [facility] Comment on above: Order Comment: Speci men Type: BLOOD SPECIMENOrdering Facility: [facility] Address: [address] [place] [address] Result Comment: <150 mg/dL, Normal 150-199 mg/dL, Borderline high 200-499 mg/dL, High >499 mg/dL, Very high Performed By: #### L IPNF, 43702-8, 3023-7, 6-3 ####[facility] [id number] [place] [address] [place] VLDL CHOLESTEROL, NF 35 mg/dL High <30 [facility] Comment on above: Order Comment: Speci men Type: BLOOD SPECIMENOrdering Facility: [facility] Address: [address] [place] [address] Performed By: #### L IPNF, 90171-7, 3023-7, 6-3 ####[facility]CL[facility] [id number] [place] [address] [place] T4 Free SerPl-mCncon -31-2 025 Free T4 [Mass/Vol] 1.2 ng/dL Normal 0.9-1.7 [facility] Comment on above: Order Comment: Speci men Type: BLOOD SPECIMENOrdering Facility: [facility] Address: [address] [place] [address] Performed By: #### L IPNF, 31854-3, 302-7, 3016-3 ####[facility]CL[facility] [id number] [place] [id number] [place] TSH SerPl-aCncon 06-24-2025 TSH Qn 2.480 m[IU]/L Normal 0.270-4.200 [facility] Comment on above: Order Comment: Speci men Type: BLOOD SPECIMENOrdering Facility: [facility] Address: [address] [place] [address] Performed By: #### L IP, 42569-1, 3024-7, 3016-3 ####[facility]CL[facility] [id number] [place] [address] [place] Vit B12 SerPl-mCncon 025 Cobalamin (Vitamin B12) [Mass/Vol] 798 pg/mL Normal 232-1245 [facility] Comment on above: Order Comment: Speci men Type: BLOOD SPECIMENOrdering Facility: [facility] Address: [address] [place] [address] Performed By: #### 2 132-9 ####[facility]CL[facility] [id number] [place] [address] [place] XR CHEST 2V [...] Stable exam with no acute radiographic abnormality. Property Underwriter: TOM Transcribe Date/Time: Jun 26 2025 6:21P Dictated by : FIDEL GAO MD This examination was interpreted and the report reviewed and electronically signed by: FIDEL GAO MD on Jun 26 2025 6:22PM EST [id number] Normal [facility] Cardiology Visit Reporton Cardiology Visit Report [facility] [address] [place] [address] OFFICE VISIT Date of Service: 03/22/25 MR#: [id number] Acct: [id number] Name: TODD MATAMOROS Rep #: [id number] : 1940 Provider: Dr. Jamal Dawson MD Age/Sex: 84/M Location: 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 Normal [facility] CNOVon 12-27-2024 [facility] Office Visit (FAMPWS ) TODD MATAMOROS ([id number]) 1940 M Date Time Provider Department 12/27/24 10:40 AM ROBEL ONOFRE FAMPWS During your visit today, we recorded the following information about you: Temperature Pulse Respiration Blood pressure 98.6 degrees 60/minute 20/minute 110/70 Weight 82.6 kg Rboel Onofre, 12/27/2024 2:03 PM Signed CC: Todd Matamoros is a 84 year old male who presents to the office for follow up HPI: Recently with episode of dizziness. Was assessed in office by Asha Hernandez CNP and then sent to [facility] EM[facility] for further assessment with [...] taking medications as prescribed. Continues to see Office Secretary for followup Iron deficiency, eating iron rich [...] Macular degeneration NSTEMI (non-ST elevated myocardial infarction) ([facility]) 10/28/2019 Osteoarthritis of left hip Paresthesia PMH [...] 07/28/2007 DIR RPR ANEURYSM ABDOMINAL AORTA 04/20/2011 [place] EYLEA (AFLIBERCEPT) 2MG INTRAVITREAL INJECTION OD [...] Vaping st (more content not included)... Normal [facility] Rosanna 12-20-2024 [facility] Telephone (FAMPWS) TODD MATAMOROS ([id number]) 1940 M Date Time Provider Department 12/20/24 ROBEL ONOFRE During your visit today, we recorded the following information about you: Gildardo Franklin RN 12/20/2024 9:05 AM Signed Daughter, Zulema, reports pt saw Asha on 12/14/24 for vertigo. Asha sent pt to [facility] ER that day and ER prescribed [...] Date Reviewed: 12/14/2024 Reviewed by: Asha Hernandez, MANAGER OF [employer] SALES.PMO CONSULTANT - Fully Assessed Reason for Visit: Patient Question [9007] Order(s):meclizine (ANTIVERT) 12.5 mg tabTake 1 tablet [...] Status:Closed by [place] on 12/21/24 Normal [facility] Absolute lymphocyte countOrd ered By: Cristobal Mayo on 12-14-2024 Lymphocytes Auto (Unsp spec) [#/Vol] 1.05 10*3/uL 0.83-4.51 [facility] Absolute neutrophil countOrd ered By: Cristobal Mayo on 12-14-2024 Neutrophils (Bld) [#/Vol] 4.8 10*3/uL 2.0-7.7 [facility] Activated partial thrombopla stin time (aPTT) in platelet poor plasma by coagulation aOrdered By: Cristobal Mayo on 12-14-2024 aPTT Coag (PPP) [Time] 82.8 s High 24.1-36.2 [facility] Anion gap in Serum or Plasma Ordered By: Cristobal Mayo on 12-14-2024 Anion gap [Moles/Vol] 10 mmol/L 5-15 [facility] Automated lymphocyte count a s percentage of total leukocytesOrdered By: Cristobal Mayo on 12-14-2024 Lymphocytes/100 WBC Auto (Unsp spec) 15.9 % Low - [facility] BUN/creatinine ratioOrdered By: Cristobal Mayo on 12-14-2024 Urea nitrogen/Creatinine [Mass ratio] 16.9 mg/mg - [facility] Basic Metabolic Profile (BMP )on 12-14-2024 BUN/CRE 16.9 RATIO Normal - [facility] Comment on above: Performed By: #### L 100.0100, L500.2500, L300.4310, L300.3900 #### [facility] [address] [place], [address] Calcium [Mass/Vol] 9.6 mg/dL Normal 7.6-11.0 [facility] Comment on above: Performed By: #### L 100.0100, L500.2500, L300.4310, L300.3900 #### [facility] [address] [place], [address] Chloride [Moles/Vol] 106 mmol/L Normal 98-108 [facility] Comment on above: Performed By: #### L 100.0100, L500.2500, L300.4310, L300.3900 #### [facility] [address] [place], [address] CO2 [Moles/Vol] 21.1 mmol/L Normal 21.0-32.0 [facility] Comment on above: Performed By: #### L 100.0100, L500.2500, L300.4310, L300.3900 #### [facility] [address] [place], [address] Creatinine [Mass/Vol] 1.01 mg/dL Normal 0.70-1.20 [facility] Comment on above: Performed By: #### L 100.0100, L500.2500, L300.4310, L300.3900 #### [facility] [address] [place], [address] GAP 10 Normal 5-15 [facility] Comment on above: Performed By: #### L 100.0100, L500.2500, L300.4310, L300.3900 #### [facility] [address] [place], [address] GFR/1.73 sq M.predicted among non-blacks MDRD (S/P/Bld) [Vol rate/Area] 73 mL/min/{1.73_m2} Normal >60 [facility] Comment on above: Result Comment: mL/m in/1.73m2 CKD-EPI Creatinine Equation (2020) Performed By: #### L 100.0100, L500.2500, L300.4310, L300.3900 #### [facility] [address] [place], [address] Glucose [Mass/Vol] 112 mg/dL High 70-99 [facility] Comment on above: Performed By: #### L 100.0100, L500.2500, L300.4310, L300.3900 #### [facility] [address] [place], [address] Potassium [Moles/Vol] 4.0 mmol/L Normal 3.3-5.1 [facility] Comment on above: Performed By: #### L 100.0100, L500.2500, L300.4310, L300.3900 #### [facility] [address] [place], [address] Sodium [Moles/Vol] 137 mmol/L Normal 133-145 [facility] Comment on above: Performed By: #### L 100.0100, L500.2500, L300.4310, L300.3900 #### [facility] [address] [place], [address] Urea nitrogen [Mass/Vol] 17 mg/dL Normal 4-19 [facility] Comment on above: Performed By: #### L 100.0100, L500.2500, L300.4310, L300.3900 #### [facility] [address] [place], [address] Basophil percentageOrdered B y: Cristobal Mayo on 12-14-2024 Basophils/100 WBC (Bld) 0.3 % 0-1 [facility] CBC W/Diff, Automatedon 11-24 Absolute Lymph 1.05 X10 3/uL Normal 0.83-4.51 [facility] Comment on above: Performed By: #### L 100.0100, L500.2500, L300.4310, L300.3900 #### [facility] [address] [place], [address] Absolute Neut 4.8 X10 3/uL Normal 2.0-7.7 [facility] Comment on above: Performed By: #### L 100.0100, L500.2500, L300.4310, L300.3900 #### [facility] [address] [place], [address] Basophils/100 WBC (Bld) 0.3 % Normal 0-1 [facility] Comment on above: Performed By: #### L 100.0100, L500.2500, L300.4310, L300.3900 #### [facility] [address] [place], [address] Eosinophils/100 WBC (Bld) 2.7 % Normal 0-5 [facility] Comment on above: Performed By: #### L 100.0100, L500.2500, L300.4310, L300.3900 #### [facility] [address] [place], [address] Erythrocyte distribution width (RBC) [Ratio] 13.9 % Normal 11.6-14.6 [facility] Comment on above: Performed By: #### L 100.0100, L500.2500, L300.4310, L300.3900 #### [facility] [address] [place], [address] Hematocrit (Bld) [Volume fraction] 41.5 % Normal 40-54 [facility] Comment on above: Performed By: #### L 100.0100, L500.2500, L300.4310, L300.3900 #### [facility] [address] [place], [address] Hemoglobin (Bld) [Mass/Vol] 14.6 g/dL Normal 13.0-16.5 [facility] Comment on above: Performed By: #### L 100.0100, L500.2500, L300.4310, L300.3900 #### [facility] [address] [place], [address] IG% 0.300 Normal 0.0-0.9 [facility] Comment on above: Result Comment: IG% - Immature Granulocytes (promyelocytes, myelocytes and metamyelocytes) > 1% indicates that a LEFT SHIFT is Present. Performed By: #### L 100.0100, L500.2500, L300.4310, L300.3900 #### [facility] [address] [place], [address] Lymphocytes/100 WBC (Bld) 15.9 % Low 19-41 [facility] Comment on above: Performed By: #### L 100.0100, L500.2500, L300.4310, L300.3900 #### [facility] [address] [place], [address] MCH (RBC) [Entitic mass] 28.9 pg Normal 27.0-32.0 [facility] Comment on above: Performed By: #### L 100.0100, L500.2500, L300.4310, L300.3900 #### [facility] [address] [place], [address] MCHC (RBC) [Mass/Vol] 35.2 g/dL Normal 32-36 [facility] Comment on above: Performed By: #### L 100.0100, L500.2500, L300.4310, L300.3900 #### [facility] [address] [place], [address] MCV (RBC) [Entitic vol] 82.2 fL Normal 80-94 [facility] Comment on above: Performed By: #### L 100.0100, L500.2500, L300.4310, L300.3900 #### [facility] [address] [place], [address] Monocytes/100 WBC (Bld) 8.2 % Normal 0-10 [facility] Comment on above: Performed By: #### L 100.0100, L500.2500, L300.4310, L300.3900 #### [facility] [address] [place], [address] Neutrophils/100 WBC (Bld) 72.6 % High 47-70 [facility] Comment on above: Performed By: #### L 100.0100, L500.2500, L300.4310, L300.3900 #### [facility] [address] [place], [address] Nucleated RBC (Bld) [#/Vol] 0 10*3/uL Normal 0-5 [facility] Comment on above: Performed By: #### L 100.0100, L500.2500, L300.4310, L300.3900 #### [facility] [address] [place], [address] Platelet mean volume (Bld) [Entitic vol] 9.4 fL Normal 6.2-12.0 [facility] Comment on above: Performed By: #### L 100.0100, L500.2500, L300.4310, L300.3900 #### [facility] [address] [place], [address] Platelets (Bld) [#/Vol] 122 10*3/uL Low 150-450 [facility] Comment on above: Performed By: #### L 100.0100, L500.2500, L300.4310, L300.3900 #### [facility] [address] [place], [address] RBC (Bld) [#/Vol] 5.05 10*6/uL Normal 4.6-6.2 [facility] Comment on above: Performed By: #### L 100.0100, L500.2500, L300.4310, L300.3900 #### [facility] [address] [place], [address] RDW SD 41.1 fl Normal 35.1-43.9 [facility] Comment on above: Performed By: #### L 100.0100, L500.2500, L300.4310, L300.3900 #### [facility] [address] [place], [address] WBC (Bld) [#/Vol] 6.6 10*3/uL Normal 4.4-11.0 [facility] Comment on above: Performed By: #### L 100.0100, L500.2500, L300.4310, L300.3900 #### [facility] [place], [address] CNOVon 12-14-2024 CNOV Office Visit (INTMWS ) TODD MATAMOROS ([id number]) 1940 M Date Time Provider Department 12/14/24 11:40 AM ASHA HERNANDEZ INTMWS During your visit today, we recorded the following information about you: Pulse Respiration Blood pressure Weight 54/minute 12/minute 152/84 84.1 kg Asha Hernandez, MANAGER OF [employer].PMO CONSULTANT 12/14/2024 12:34 PM Signed CC: Patient presents with: Vertigo: Dizziness x 1 day HPI Recording using [employer] software for draft documentation of the visit was discussed with the patient/authorized floor representative; all questions welcomed and answered. Patient/authorized floor representative agreed to proceed Daryn is a [...] Macular degeneration NSTEMI (non-ST elevated myocardial infarction) ([facility]) 10/28/2019 Osteoarthritis of left hip Paresthesia PMH [...] 07/28/2007 DIR RPR ANEURYSM ABDOMINAL AORTA 04/20/2011 [facility] EYLEA (AFLIBERCEPT) 2MG INTRAVITREAL INJECTION OD (RIGHT [...] mg b (more content not included)... Normal [facility] 12-14-2024 [facility] Telephone (ISAIASWS) TODD MATAMOROS ([id number]) 1940 M Date Time Provider Department 12/14/24 ROBEL ONOFRE [facility] During your visit today, we [...] Status:Closed by DEBRA ROMERO on 12/14/24 Normal [facility] CTA Head AND Neck W/ Contras ton 12-14-2024 CTA Head AND Neck W/ Contrast [facility] Imaging Services [address] [place] [address] CTA Head AND Neck W/ Contrast MR#: [id number] Acct: [id number] Name: TODD MATAMOROS Rep #: [id number] : 1940 M 84 From: Galindo redding MD PCP: Dr. Robel Onofre, DO Status: REG ER Study: CTA Head AND Neck W/ Contrast Date of Exam: Exam# [id number] Ordering Dr: Cristobal Mayo DO PROCEDURE: CTA [...] RIGHT Vertebral: Unremarkable. LEFT Vertebral: Unremarkable. Anatomy: [place] anatomy is normal. Aneurysm or [...] internal carotid artery. Cerebral atrophy. Reading Location: [place] [address] CC: Dr. Robel Onofre DO; Dr. Cristobal Mayo DO Property Underwriter: Signed Normal [facility] Carbon dioxide, total [Moles /volume] in Central venous bloodOrdered By: Cristobal Mayo on 12-14-2024 CO2 [Moles/Vol] 21.1 mmol/L 21.0-32.0 [facility] Chloride assayOrdered By: Geovanni Mayo on 12-14-2024 Chloride [Moles/Vol] 106 mmol/L 98-108 [facility] Emergency Department Summary on 12-14-2024 Emergency Department Summary [facility] Medical Records Department [address] [place] [address] Emergency Department Summary 12/14/24 MR#: [id number] Acct: [id number] Name: TODD MATAMOROS Rep #: [id number] : 1940 84 From: Cristobal Ivory PCP: [...] He had evaluation in the office with [place] fully explained to the right he sat up and threw up. No headache. No recent upper respiratory symptoms or sinus symptoms. Does wear hearing aids. No allergies. Currently resting no symptoms. He ambulates with guidance from his daughter. 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 Normal [facility] Eosinophil percentageOrdered By: Cristobal Mayo on 12-14-2024 Eosinophils/100 WBC (Bld) 2.7 % 0-5 [facility] Erythrocyte distribution wid th (RBC) [Ratio]Ordered By: Cristobal Mayo on 12-14-2024 Erythrocyte distribution width (RBC) [Entitic vol] 41.1 fL 35.1-43.9 [facility] Erythrocyte distribution wid th ratioOrdered By: Cristobal Mayo on 12-14-2024 Erythrocyte distribution width (RBC) [Ratio] 13.9 % 11.6-14.6 [facility] Erythrocyte distribution wid th standard deviationOrdered By: Cristobal Mayo on 12-14-2024 Erythrocyte distribution width (RBC) [Ratio] 41.1 fl 35.1-43.9 [facility] GFR/1.73 sq M.predicted lebron g non-blacks MDRD (S/P/Bld) [Vol rate/Area]Ordered By: Cristobal Mayo on 12-14-2024 Estimated GFR (MDRD) Non-Af Amer 73 >60 [facility] Comment on above: mL/min/1.73m2 CKD-EP I Creatinine Equation (2020) Glomerular filtration rate ( GFR) estimation/1.73 sq m using serum, plasma, or whole bOrdered By: Cristobal Mayo on 12-14-2024 GFR/1.73 sq M.predicted among non-blacks MDRD (S/P/Bld) [Vol rate/Area] 73 mL/min/{1.73_m2} >60 [facility] Comment on above: mL/min/1.73m2 CKD-EP I Creatinine Equation (2020) Hematocrit Auto (Bld) [Volum e fraction]Ordered By: Cristobal Mayo on 12-14-2024 Hematocrit (Bld) [Volume fraction] 41.5 % 40-54 [facility] Hemoglobin measurementOrdere d By: Cristobal Mayo on 12-14-2024 Hemoglobin (Bld) [Mass/Vol] 14.6 g/dL 13.0-16.5 [facility] Immature granulocytes/100 WB C Auto (Bld)Ordered By: Cristobal Mayo on 12-14-2024 Immature granulocytes/100 WBC (Bld) 0.300 % 0.0-0.9 [facility] Comment on above: IG% - Immature Granu locytes (promyelocytes, myelocytes and metamyelocytes) > 1% indicates that a LEFT SHIFT is Present. International normalized rat io (INR) calculationOrdered By: Cristobal Mayo on 12-14-2024 INR Coag (Bld) [Relative time] 1.1 {INR} [facility] Lymphocytes Auto (Unsp spec) [#/Vol]Ordered By: Cristobal Mayo on 12-14-2024 Lymphocytes (Bld) [#/Vol] 1.05 10*3/uL 0.83-4.51 [facility] Lymphocytes/100 WBC Auto (Un sp spec)Ordered By: Cristobal Mayo on 12-14-2024 Lymphocytes/100 WBC (Bld) 15.9 % Low 19-41 [facility] MCV (mean corpuscular volume ) determinationOrdered By: Cristobal Mayo on 12-14-2024 MCV (RBC) [Entitic vol] 82.2 fL 80-94 [facility] Mean corpuscular hemoglobin (MCH) determinationOrdered By: Cristobal Mayo on 12-14-2024 MCH (RBC) [Entitic mass] 28.9 pg 27.0-32.0 [facility] Mean corpuscular hemoglobin concentration (MCHC) determinationOrdered By: Cristobal Mayo on 12-14-2024 MCHC (RBC) [Mass/Vol] 35.2 g/dL 32-36 [facility] Mean platelet volume determi nationOrdered By: Cristobal Mayo on 12-14-2024 Platelet mean volume (Bld) [Entitic vol] 9.4 fL 6.2-12.0 [facility] Monocyte percentageOrdered B y: Cristobal Mayo on 12-14-2024 Monocytes/100 WBC (Bld) 8.2 % 0-10 [facility] Neutrophil percentageOrdered By: Cristobal Mayo on 12-14-2024 Neutrophils/100 WBC (Bld) 72.6 % High 47-70 [facility] Nucleated red blood cell per centageOrdered By: Cristobal Mayo on 12-14-2024 Nucleated RBC/100 WBC (Bld) [Ratio] 0 % 0-5 [facility] Partial Thromboplast Timeon 12-14-2024 aPTT Coag (Bld) [Time] 82.8 s High 24.1-36.2 [facility] Comment on above: Performed By: #### L 100.0100, L500.2500, L300.4310, L300.3900 #### [facility] [address] [place], [address] Platelet countOrdered By: Geovanni Mayo on 12-14-2024 Platelets (Bld) [#/Vol] 122 10*3/uL Low 150-450 [facility] Potassium (Unsp spec) [Mass/ Vol]Ordered By: Cristobal Mayo on 12-14-2024 Potassium [Moles/Vol] 4.0 mmol/L 3.3-5.1 [facility] Potassium measurement (mass/ volume)Ordered By: Cristobal Mayo on 12-14-2024 Potassium (Unsp spec) [Mass/Vol] 4.0 mmol/L 3.3-5.1 [facility] Prothrombin Time w/INRon INR Coag (PPP) [Relative time] 1.1 {INR} Normal [facility] Comment on above: Performed By: #### L 100.0100, L500.2500, L300.4310, L300.3900 #### [facility] [address] [place], [address] PT Coag (PPP) [Time] 14.0 s Normal 11.7-14.9 [facility] Comment on above: Performed By: #### L 100.0100, L500.2500, L300.4310, L300.3900 #### [facility] [address] [place], [address] Prothrombin timeOrdered By: Cristobal Mayo on 12-14-2024 PT Coag (PPP) [Time] 14.0 s 11.7-14.9 [facility] RBC Auto (Bld) [#/Vol]Ordere d By: Cristobal Mayo on 12-14-2024 RBC (Bld) [#/Vol] 5.05 10*6/uL 4.6-6.2 [facility] Serum creatinine measurement (mass/volume)Ordered By: Cristobal Mayo on 12-14-2024 Creatinine [Mass/Vol] 1.01 mg/dL 0.70-1.20 [facility] Serum glucose measurement (m ass/volume)Ordered By: Cristobal Mayo on 12-14-2024 Glucose [Mass/Vol] 112 mg/dL High 70-99 [facility] Serum or plasma calcium kimmie urement (mass/volume)Ordered By: Cristobal Mayo on 12-14-2024 Calcium [Mass/Vol] 9.6 mg/dL 7.6-11.0 [facility] Serum or plasma urea nitroge n measurement (mass/volume)Ordered By: Cristobal Mayo on 12-14-2024 Urea nitrogen [Mass/Vol] 17 mg/dL 4-19 [facility] Sodium levelOrdered By: Cristobal Mayo on 12-14-2024 Sodium [Moles/Vol] 137 mmol/L 133-145 [facility] White blood cell (WBC) count Ordered By: Cristobal Mayo on 12-14-2024 WBC (Bld) [#/Vol] 6.6 10*3/uL 4.4-11.0 [facility] aPTT Coag (PPP) [Time]Ordere d By: Cristobal Mayo on 12-14-2024 aPTT Coag (Bld) [Time] 82.8 s High 24.1-36.2 [facility] CNPNon 10-08-2024 CNPN Telephone (FAMDahianaWS) TODD MATAMOROS ([id number]) 1940 M Date Time Provider Department 10/08/24 ROBEL ONOFRE During your visit today, we recorded the following information about you: Zenaida Morrissey 10/08/2024 8:17 AM Signed Shy is calling Robel Onofre DO today to request Letter (Blindness confirmation for taxes) Patient has been identified by name and birthdate. Duration of symptoms: N/A Person calling: daughter: Jadyn Lew patient at: [phone] Was an appointment scheduled: No Closing statement: [...] Status:Closed by RODNEY KIRK LPN on 10/12/24 [facility] Rosanna 08-30-2024 [place]ON Telephone (FAMPWS) TODD MATAMOROS ([id number]) 1940 M Date Time Provider Department 08/30/24 ROBEL ONOFRE During your visit today, we recorded the following information about you: Rodney Kirk LPN 08/30/2024 12:11 PM Signed Type of form: Deaf and blind form Form received via walk in When form is completed, PhoneTina when complete.[phone] Form has been forwarded to Physician Desk: [...] it to her in the mail at [address] [phone]. SAMUEL Delgado Jordan L, DO 09/01/2024 8:16 [...] Status:Closed by RODNEY KIRK LPN on 11/30/24 [facility] TOD[facility]OS ([id number]) 1940 M Date Time Provider Department 07/01/24 [...] Status:Closed by KORTNEY BONNER on 07/01/24 Normal [facility] 25([place])D3 [facility] 2023 25-hydroxyvitamin D3 [Mass/Vol] 44.7 ng/mL Normal 31.0-80.0 [facility] Comment on above: Order Comment: Speci men Type: BLOOD SPECIMENOrdering Facility: [facility] Address: [address] [place] [address] Result Comment: Clas sification of 25 [place] Vitamin D status: Deficiency/Insufficiency: < or = 30 ng/ml. Sufficiency/Optimal Levels: 31-80 ng/mL Toxicity: > 100 ng/mL. Test performed by chemiluminescent immunoassay. Performed By: #### 1 989-3 ####[facility] LABCL[facility] [id number] [place] [address] [place] CBC W Auto Differential pane l (Bld)on 06-30-2024 Basophils (Bld) [#/Vol] 10*3/uL Normal <0.11 C [facility] Comment on above: Order Comment: Speci men Type: BLOOD SPECIMENOrdering Facility: [facility] Address: [address] [place] [address] Performed By: #### 5 7021-8 ####[facility] LABIA [id number] [place] [address] [place] Basophils/100 WBC (Bld) 0.3 % Normal C [facility] Comment on above: Order Comment: Speci men Type: BLOOD SPECIMENOrdering Facility: [facility] Address: [address] [place] [address] Performed By: #### 5 7021-8 ####[facility]CL[facility] [id number] [place] [address] [place] Differential cell count method Nom (Bld) Auto Normal [facility] Comment on above: Order Comment: Speci men Type: BLOOD SPECIMENOrdering Facility: [facility] Address: [address] [place] [address] Performed By: #### 5 7021-8 ####[facility]CL[facility] [id number] [id number] [address] [place] Eosinophils (Bld) [#/Vol] 0.23 10*3/uL Normal <0.46 [facility] Comment on above: Order Comment: Speci men Type: BLOOD SPECIMENOrdering Facility: [facility] Address: [address] [place] [address] Performed By: #### 5 7021-8 ####[facility]CL[facility] [id number] [place] [address] [place] Eosinophils/100 WBC (Bld) 3.1 % Normal [facility] Comment on above: Order Comment: Speci men Type: BLOOD SPECIMENOrdering Facility: [facility] Address: [address] [place] [address] Performed By: #### 5 7021-8 ####[facility]CL[facility] [id number] [place] [address] [place] Erythrocyte distribution width (RBC) [Ratio] 14.1 % Normal 11.5-15.0 [facility] Comment on above: Order Comment: Speci men Type: BLOOD SPECIMENOrdering Facility: [facility] Address: [address] [place] [address] Performed By: #### 5 7021-8 ####[facility]CL[facility] [id number] [address] [place] Hematocrit (Bld) [Volume fraction] 42.9 % Normal 39.0-51.0 [facility] Comment on above: Order Comment: Speci men Type: BLOOD SPECIMENOrdering Facility: [facility] Address: [address] [place] [address] Performed By: #### 5 7021-8 ####[facility]CL[facility] [id number] [place] [address] [place] Hemoglobin (Bld) [Mass/Vol] 14.6 g/dL Normal 13.0-17.0 [facility] Comment on above: Order Comment: Speci men Type: BLOOD SPECIMENOrdering Facility: [facility] Address: [address] [place] [address] Performed By: #### 5 7021-8 ####[facility]CL[facility] [id number] [place] [address] [place] Immature granulocytes (Bld) [#/Vol] 0.03 10*3/uL Normal <0.10 [facility] Comment on above: Order Comment: Speci men Type: BLOOD SPECIMENOrdering Facility: [facility] Address: [address] [place] [address] Performed By: #### 5 7021-8 ####[facility]CL[facility] [id number] [place] [address] [place] Immature granulocytes/100 WBC (Bld) 0.4 % Normal [facility] Comment on above: Order Comment: Speci men Type: BLOOD SPECIMENOrdering Facility: [facility] Address: [address] [place] [address] Performed By: #### 5 7021-8 ####[facility]CL[facility] [id number] [place] [address] [place] Lymphocytes (Bld) [#/Vol] 1.43 10*3/uL Normal 1.00-4.00 [facility] Comment on above: Order Comment: Speci men Type: BLOOD SPECIMENOrdering Facility: [facility] Address: [address] [place] [address] Performed By: #### 5 7021-8 ####[facility]CL[facility] [id number] [place] [address] [place] Lymphocytes/100 WBC (Bld) 19.1 % Normal [facility] Comment on above: Order Comment: Speci men Type: BLOOD SPECIMENOrdering Facility: [facility] Address: [address] [place] [address] Performed By: #### 5 7021-8 ####[facility]CL[facility] [id number] [id number], [place] [address] [place] MCH (RBC) [Entitic mass] 29.9 pg Normal 26.0-34.0 [facility] Comment on above: Order Comment: Speci men Type: BLOOD SPECIMENOrdering Facility: [facility] Address: [address] [place] [address] Performed By: #### 5 7021-8 ####[facility]CL[facility] [id number] [place] [address] [place] MCHC (RBC) [Mass/Vol] 34.0 g/dL Normal 30.5-36.0 [facility] Comment on above: Order Comment: Speci men Type: BLOOD SPECIMENOrdering Facility: [facility] Address: [address] [place] [address] Performed By: #### 5 7021-8 ####[facility]CL[facility] [id number] [place] [address] [place] MCV (RBC) [Entitic vol] 87.9 fL Normal 80.0-100.0 C [facility] Comment on above: Order Comment: Speci men Type: BLOOD SPECIMENOrdering Facility: [facility] Address: [address] [place] [address] Performed By: #### 5 7021-8 ####[facility] LABIA [id number] [place] [address] [place] Monocytes (Bld) [#/Vol] 0.72 10*3/uL Normal <0.87 [facility] Comment on above: Order Comment: Speci men Type: BLOOD SPECIMENOrdering Facility: [facility] Address: [address] [place] [address] Performed By: #### 5 7021-8 ####[facility]CL[facility] [id number] [place] [address] [place] Monocytes/100 WBC (Bld) 9.6 % Normal C [facility] Comment on above: Order Comment: Speci men Type: BLOOD SPECIMENOrdering Facility: [facility] Address: [address] [place] [address] Performed By: #### 5 7021-8 ####[facility]CL[facility] [id number] [place] [address] [place] Neutrophils (Bld) [#/Vol] 5.05 10*3/uL Normal 1.45-7.50 [facility] Comment on above: Order Comment: Speci men Type: BLOOD SPECIMENOrdering Facility: [facility] Address: [address] [place] [address] Performed By: #### 5 7021-8 ####[facility]CL[facility] [id number] [place] [address] [place] Neutrophils/100 WBC (Bld) 67.5 % Normal [facility] Comment on above: Order Comment: Speci men Type: BLOOD SPECIMENOrdering Facility: [facility] Address: [address] [place] [address] Performed By: #### 5 7021-8 ####[facility]CL[facility] [id number] [place] [address] [place] Nucleated RBC (Bld) [#/Vol] 10*3/uL Normal <0.01 [facility] Comment on above: Order Comment: Speci men Type: BLOOD SPECIMENOrdering Facility: [facility] Address: [address] [place] [address] Performed By: #### 5 7021-8 ####[facility]CL[facility] [id number] [place] [address] [place] Nucleated RBC/100 WBC (Bld) [Ratio] 0.0 /100 WBC Normal [facility] Comment on above: Order Comment: Speci men Type: BLOOD SPECIMENOrdering Facility: [facility] Address: [address] [place] [address] Performed By: #### 5 7021-8 ####[facility]CL[facility] [id number] [place] [address] [place] Platelet mean volume (Bld) [Entitic vol] 9.8 fL Normal 9.0-12.7 [facility] Comment on above: Order Comment: Speci men Type: BLOOD SPECIMENOrdering Facility: [facility] Address: [address] [place] [address] Performed By: #### 5 7021-8 ####[facility]IA [id number] [place] [address] [place] Platelets (Bld) [#/Vol] 133 10*3/uL Low 150-400 [facility] Comment on above: Order Comment: Speci men Type: BLOOD SPECIMENOrdering Facility: [facility] Address: [address] [place] [address] Performed By: #### 5 7021-8 ####[facility] LABIA [id number] [place] [address] [place] RBC (Bld) [#/Vol] 4.88 10*6/uL Normal 4.20-6.00 [facility] Comment on above: Order Comment: Speci men Type: BLOOD SPECIMENOrdering Facility: [facility] Address: [address] [place] [address] Performed By: #### 5 7021-8 ####[facility]IA [id number] [place] [address] [place] WBC (Bld) [#/Vol] 7.48 10*3/uL Normal 3.70-11.00 [facility] Comment on above: Order Comment: Speci men Type: BLOOD SPECIMENOrdering Facility: [facility] Address: [address] [place] [address] Performed By: #### 5 7021-8 ####[facility]CL[facility] [id number] [place] [address] [place] CNOVon 06-30-2024 CNOV Office Visit (FAMPWS ) TODD MATAMOROS ([id number]) 1940 M Date Time Provider Department 06/30/24 10:40 AM [facility] During your visit today, we recorded [...] taking medications as prescribed. Continues to see Office Secretary for followup Iron deficiency, eating iron rich foods,no signs of bleeding. Last labs in November Mood, overall stable, taking Sertraline. Helps to care for his with dementia. Daughter feels he is doing well. Has fatigue, wondering if can try vitamin b12 injections PAST MEDICAL HISTORY Diagnosis Date Acute bronchitis Aneurysm of abdominal aorta ([facility] 04/20/2011. Lower abdomen. BPH (benign prostatic hyperplasia) CAD (coronary artery disease) Diverticulosis of colon (without mention of hemorrhage) GERD (gastroesophageal reflux disease) Hyperlipidemia Hypertension Internal hemorrhoids without mention of complication Macular degeneration NSTEMI (non-ST elevated myocardial infarction) ([facility]) 10/28/2019 Osteoarthritis of left hip Paresthesia PMH [...] 07/28/2007 DIR RPR ANEURYSM ABDOMINAL AORTA 04/20/2011 [place] EYLEA (AFLIBERCEPT) 2MG INTRAVITREAL INJECTION OD [...] No cer (more content not included)... Normal [facility] Comprehensive metabolic 2000 panelon 06-30-2024 Albumin [Mass/Vol] 4.2 g/dL Normal 3.9-4.9 [facility] Comment on above: Order Comment: Speci men Type: BLOOD SPECIMENOrdering Facility: [facility] Address: [address] [place] [address] Performed By: #### 2 4323-8, LIPNF, 3015-10, ####[facility] [id number] [place] [address] [place] ALP [Catalytic activity/Vol] 123 U/L High 38-113 [facility] Comment on above: Order Comment: Speci men Type: BLOOD SPECIMENOrdering Facility: [facility] Address: [address] [place] [address] Performed By: #### 2 4323-8, LIPNF, 3015-10, ####[facility] [id number] [place] [address] [place] ALT [Catalytic activity/Vol] 12 U/L Normal 10-54 [facility] Comment on above: Order Comment: Speci men Type: BLOOD SPECIMENOrdering Facility: [facility] Address: [address] [place] [address] Performed By: #### 2 4323-8, LIPNF, 6-3, ####[facility] [id number] [place] [address] [place] Anion gap [Moles/Vol] 11 mmol/L Normal 8-15 [facility] Comment on above: Order Comment: Speci men Type: BLOOD SPECIMENOrdering Facility: [facility] Address: [address] [place] [address] Performed By: #### 2 4323-8, LIPNF, 6-3, ####[facility]CL[facility] [id number] [place] [address] [place] AST [Catalytic activity/Vol] 13 U/L Low 14-40 [facility] Comment on above: Order Comment: Speci men Type: BLOOD SPECIMENOrdering Facility: [facility] Address: [address] [place] [address] Performed By: #### 2 4323-8, LIPNF, 6-3, ####[facility] [id number] [place] [address] [place] Bilirubin [Mass/Vol] 0.6 mg/dL Normal 0.2-1.3 [facility] Comment on above: Order Comment: Speci men Type: BLOOD SPECIMENOrdering Facility: [facility] Address: [address] [place] [address] Performed By: #### 2 4323-8, LIPNF, 3015-3, ####[facility] [id number] [place] [address] [place] Calcium [Mass/Vol] 9.3 mg/dL Normal 8.5-10.2 [facility] Comment on above: Order Comment: Speci men Type: BLOOD SPECIMENOrdering Facility: [facility] Address: [address] [place] [address] Performed By: #### 2 4323-8, LIPNF, 6-3, ####[facility] [id number] [place] [address] [place] Chloride [Moles/Vol] 105 mmol/L Normal 98-107 [facility] Comment on above: Order Comment: Speci men Type: BLOOD SPECIMENOrdering Facility: [facility] Address: [address] [place] [address] Performed By: #### 2 4323-8, LIPNF, 6-3, ####[facility] [id number] [place] [address] [place] CO2 [Moles/Vol] 21 mmol/L Low 22-30 [facility] Comment on above: Order Comment: Speci men Type: BLOOD SPECIMENOrdering Facility: [facility] Address: [address] [place] [address] Performed By: #### 2 4323-8, LIPNF, 6-3, ####[facility] [id number] [place] [address] [place] Creatinine [Mass/Vol] 1.09 mg/dL Normal 0.73-1.22 [facility] Comment on above: Order Comment: Speci men Type: BLOOD SPECIMENOrdering Facility: [facility] Address: [address] [place] [address] Performed By: #### 2 4323-8, LIPNF, 3015-3, ####[facility] [id number] [place] [address] [place] Creatinine and Glomerular filtration rate.predicted panel (S/P/Bld) 67 mL/min/1.73m??? Normal >=60 [facility] Comment on above: Order Comment: Speci men Type: BLOOD SPECIMENOrdering Facility: [facility] Address: [address] [place] [address] Result Comment: Shannan mated Glomerular Filtration Rate [...] Performed By: #### 2 4323-8, ALEJA, 3015-3, ####[facility] [id number] [address] [address] [place] Glucose [Mass/Vol] 98 mg/dL Normal 74-99 [facility] Comment on above: Order Comment: Speci men Type: BLOOD SPECIMENOrdering Facility: [facility] Address: [address] [place] [address] Result Comment: The [place] Diabetes Association (ADA) provides guidance for cutoff [...] Standards of Medical Care in Diabetes 2016, [place] Diabetes Association. Diabetes Care. 2016.39(Suppl 1). Performed By: #### 2 4323-8, LIPTITO, 3015-3, ####[facility] [id number] [address] [address] [place] Potassium [Moles/Vol] 4.0 mmol/L Normal 3.7-5.1 [facility] Comment on above: Order Comment: Speci men Type: BLOOD SPECIMENOrdering Facility: [facility] Address: [address] [place] [id number] Performed By: #### 2 4323-8, LIPNF, 3016-3, ####[facility] [id number] [address] [address] [place] Protein [Mass/Vol] 6.6 g/dL Normal 6.3-8.0 [facility] Comment on above: Order Comment: Speci men Type: BLOOD SPECIMENOrdering Facility: [facility] Address: [address] [place] [address] Performed By: #### 2 4323-8, LIPNF, 6-3, ####[facility] [id number] [place] [address] [place] Sodium [Moles/Vol] 137 mmol/L Normal 136-144 [facility] Comment on above: Order Comment: Speci men Type: BLOOD SPECIMENOrdering Facility: [facility] Address: [address] [place] [address] Performed By: #### 2 4323-8, LIPNF, 6-3, ####[facility] [id number] [place] [address] [place] Urea nitrogen [Mass/Vol] 22 mg/dL Normal 9-24 [facility] Comment on above: Order Comment: Speci men Type: BLOOD SPECIMENOrdering Facility: [facility] Address: [address] [place] [address] Performed By: #### 2 4323-8, LIPNF, 6-3, ####[facility] [id number] [place] [id number] [place] HbA1c (Bld)on 06-30-2024 Average glucose Estimated from glycated hemoglobin (Bld) [Mass/Vol] 100 mg/dL Normal [facility] Comment on above: Order Comment: Speci men Type: BLOOD SPECIMENOrdering Facility: [facility] Address: [address] [place] [address] Result Comment: eAG: (Estimated average glucose) is a calculated value from HgbA1c and is floor representative of the average blood glucose level in the last 2-3 month period. Performed By: #### 5 5454-3 ####[facility] [id number] [place] [address] [place] HbA1c (Bld) [Mass fraction] 5.1 % Normal 4.3-5.6 [facility] Comment on above: Order Comment: Christian modi Type: BLOOD SPECIMENOrdering Facility: [facility] Address: [address] [place] [address] Result Comment: [place] Diabetes Association guidelines indicate that patients with HgbA1c in the range 5.7-6.4% are at increased risk for development of diabetes, and intervention by lifestyle modification may be beneficial. HgbA1c greater or equal to 6.5% is considered diagnostic of diabetes. Performed By: #### 5 5454-3 ####[facility] [id number] [place] [address] [place] LIPID PANEL, NONFASTINGon Cholesterol [Mass/Vol] 126 mg/dL Normal <200 [facility] Comment on above: Order Comment: Christian modi Type: BLOOD SPECIMENOrdering Facility: [facility] Address: [address] [place] [address] Result Comment: <200 mg/dL, Desirable 200-239 mg/dL, Borderline high >239 mg/dL, High Performed By: #### 2 4323-8, LIPNF, 3016-3, 76666-7 ####[facility] [id number] [place] [address] [place] HDL CHOLESTEROL, NF 33 mg/dL Low >39 [facility] Comment on above: Order Comment: Christian modi Type: BLOOD SPECIMENOrdering Facility: [facility] Address: [address] [place] [address] Result Comment: 40-5 9 mg/dL, Acceptable >59 mg/dL, High: Negative risk factor for coronary heart disease <40 mg/dL, Low: Positive risk factor for coronary heart disease Performed By: #### 2 4323-8, LIPNF, 3015-3, ####[facility] [id number] [place] [address] [place] LDL CHOLESTEROL, NF 43 mg/dL Normal <100 [facility] Comment on above: Order Comment: Speci men Type: BLOOD SPECIMENOrdering Facility: [facility] Address: [address] [place] [address] Result Comment: <100 mg/dL, Optimal 100-129 mg/dL, Near optimal/above optimal 130-159 mg/dL, Borderline high 160-189 mg/dL, High >189 mg/dL, Very high Secondary prevention optimal LDL Cholesterol levels are recommended to be < 70 mg/dL Performed By: #### 2 4323-8, LIPNF, 3015-10, ####[facility] [id number] [address] [place] LDL/HDL RATIO, NF 1.30 mg/dL Normal <2.54 [facility] Comment on above: Order Comment: Emii men Type: BLOOD SPECIMENOrdering Facility: [facility] Address: [address] [place] [address] Result Comment: Refe isabellce: 1. National Cholesterol Education Program ATP III Guideline At-A-Glance Quick Desk Reference: National Heart, Lung, and Blood [place]. National Institutes of Health. 2001: NIH Publication No. 01-3305. 2. An International Atherosclerosis Society position paper: global recommendations for the management of dyslipidemia: executive summary, Atherosclerosis. 2014: 232(2):410-413. Performed By: #### 2 4323-8, LIPNF, 3015-, ####[facility] [id number] [place] [address] [place] NON HDL CHOL, NF 93 mg/dL Normal <130 [facility] Comment on above: Order Comment: Speci men Type: BLOOD SPECIMENOrdering Facility: [facility] Address: [address] [place], [place] [id number] Result Comment: <130 mg/dL, Optimal 130-159 mg/dL, Near optimal/above optimal 160-189 mg/dL, Borderline high 190-219 mg/dL, High >219 mg/dL, Very high Secondary prevention optimal non HDL Cholesterol levels are recommended to be <100 mg/dL Performed By: #### 2 4323-8, LIPNF, 3015-3, ####[facility] [id number] [place] [address] [place] T CHOL/HDL RATIO NF 3.82 mg/dL Normal <5.10 [facility] Comment on above: Order Comment: Speci men Type: BLOOD SPECIMENOrdering Facility: [facility] Address: [address] [place] [address] Performed By: #### 2 4323-8, LIPNF, 3015-10, ####[facility] [id number] [place] [address] [place] TRIGLYCERIDES, NF 251 mg/dL High <150 [facility] Comment on above: Order Comment: Speci men Type: BLOOD SPECIMENOrdering Facility: [facility] Address: [address] [place] [address] Result Comment: <150 mg/dL, Normal 150-199 mg/dL, Borderline high 200-499 mg/dL, High >499 mg/dL, Very high Performed By: #### 2 4323-8, LIPNF, 3015-10, ####[facility] [id number] [place] [id number] [place] VLDL CHOLESTEROL, NF 50 mg/dL High <30 [facility] Comment on above: Order Comment: Speci men Type: BLOOD SPECIMENOrdering Facility: [facility] Address: [address] [place] [address] Performed By: #### 2 4323-8, LIPNF, 3015-10, ####[facility] [id number] [address] [address] [place] Magnesium SerPl-mCncon 06-30 Magnesium [Mass/Vol] 2.2 mg/dL Normal 1.7-2.3 [facility] Comment on above: Order Comment: Speci men Type: BLOOD SPECIMENOrdering Facility: [facility] Address: [address] [place] [address] Performed By: #### 2 4323-8, LIPNF, 3015-10, ####[facility] [id number] [place] [id number] [place] TSH SerPl-aCncon 06-30-2024 TSH Qn 2.020 m[IU]/L Normal 0.270-4.200 [facility] Comment on above: Order Comment: Speci men Type: BLOOD SPECIMENOrdering Facility: [facility] Address: [address] [place] [address] Performed By: #### 2 4323-8, LIPNF, 3015-10, ####[facility] [id number] [place] [address] [place] Urinalysis complete panel (U )on 06-30-2024 Bacteria LM.HPF (Urine sed) [#/Area] Negative Normal Negative [facility] Comment on above: Order Comment: Speci men Type: URINE SPECIMENOrdering Facility: [facility] Address: [address] [place] [address] Performed By: #### 2 4356-8 ####[facility] [id number] [place] [address] [place] Bilirubin Ql (U) Negative Normal Negative [facility] Comment on above: Order Comment: Speci men Type: URINE SPECIMENOrdering Facility: [facility] Address: [address] [place] [address] Performed By: #### 2 4356-8 ####[facility] [id number] [place] [address] [place] Clarity (Unsp spec) Clear Normal Clear [facility] Comment on above: Order Comment: Speci men Type: URINE SPECIMENOrdering Facility: [facility] Address: [address] [place] [address] Performed By: #### 2 4356-8 ####[facility] [id number] [place] [address] [place] Color (U) Dark Yellow Abnormal Yellow [facility] Comment on above: Order Comment: Speci men Type: URINE SPECIMENOrdering Facility: [facility] Address: [address] [place] [address] Performed By: #### 2 4356-8 ####[facility] [id number] [place] [address] [place] Epithelial cells LM.HPF (Urine sed) [#/Area] Few Normal [facility] Comment on above: Order Comment: Speci men Type: URINE SPECIMENOrdering Facility: [facility] Address: [address] [place] [address] Performed By: #### 2 4356-8 ####[facility] [id number] [place] [address] [place] Glucose Test strip (U) [Mass/Vol] Negative Normal Negative [facility] Comment on above: Order Comment: Speci men Type: URINE SPECIMENOrdering Facility: [facility] Address: [address] [place] [address] Performed By: #### 2 4356-8 ####[facility] [id number] [place] [address] [place] Hemoglobin Ql (U) Negative Normal Negative [facility] Comment on above: Order Comment: Speci men Type: URINE SPECIMENOrdering Facility: [facility] Address: [address] [place] [address] Performed By: #### 2 4356-8 ####[facility] [id number] [place] [address] [place] Hyaline casts (Urine sed) [#/Area] 0 /[LPF] Normal 0 /LPF [facility] Comment on above: Order Comment: Speci men Type: URINE SPECIMENOrdering Facility: [facility] Address: [address] [place] [address] Performed By: #### 2 4356-8 ####[facility] [id number] [place] [address] [place] Ketones Ql (U) Negative Normal Negative [facility] Comment on above: Order Comment: Speci men Type: URINE SPECIMENOrdering Facility: [facility] Address: [address] [place] [address] Performed By: #### 2 4356-8 ####[facility] [id number] [place] [address] [place] Leukocyte esterase Test strip Ql (U) Negative Normal Negative [facility] Comment on above: Order Comment: Speci men Type: URINE SPECIMENOrdering Facility: [facility] Address: [address] [place] [address] Performed By: #### 2 4356-8 ####[facility] [id number] [place] [address] [place] Nitrite Ql (U) Negative Normal Negative [facility] Comment on above: Order Comment: Speci men Type: URINE SPECIMENOrdering Facility: [facility] Address: [address] [place] [address] Performed By: #### 2 4356-8 ####[facility] [id number] [place] [address] [place] pH (U) 5.5 [pH] Normal <8.5 [facility] Comment on above: Order Comment: Speci men Type: URINE SPECIMENOrdering Facility: [facility] Address: [address] [place] [address] Performed By: #### 2 4356-8 ####[facility] [id number] [place] [address] [place] Protein (U) [Mass/Vol] Trace Abnormal Negative [facility] Comment on above: Order Comment: Speci men Type: URINE SPECIMENOrdering Facility: [facility] Address: [address] [place] [address] Performed By: #### 2 4356-8 ####[facility] [id number] [place] [address] [place] RBC LM.HPF (Urine sed) [#/Area] 0-2 /HPF Normal 0-2 /HPF [facility] Comment on above: Order Comment: Speci men Type: URINE SPECIMENOrdering Facility: [facility] Address: [address] [place] [address] Performed By: #### 2 4356-8 ####[facility] [id number] [place] [address] [place] Specific gravity (U) [Rel density] 1.024 Normal 1.005-1.030 [facility] Comment on above: Order Comment: Speci men Type: URINE SPECIMENOrdering Facility: [facility] Address: [address] [place] [address] Performed By: #### 2 4356-8 ####[facility] [id number] [place] [address] [place] Urobilinogen Ql (U) 1.0 EU/dL Normal 0.2-1.0 EU/dL [facility] Comment on above: Order Comment: Speci men Type: URINE SPECIMENOrdering Facility: [facility] Address: [address] [place] [address] Performed By: #### 2 4356-8 ####[facility] [id number] [place] [id number] [place] WBC LM.HPF (Urine sed) [#/Area] 0-5 /HPF Normal 0-5 /HPF [facility] Comment on above: Order Comment: Speci men Type: URINE SPECIMENOrdering Facility: [facility] Address: [address] [place] [address] Performed By: #### 2 4356-8 ####[facility] [id number] [place] [id number] [place] Vit B12 [facility] 06-30- 024 Cobalamin (Vitamin B12) [Mass/Vol] 1079 pg/mL Normal 232-1245 [facility] Comment on above: Order Comment: Speci men Type: BLOOD SPECIMENOrdering Facility: [facility] Address: [address] [place] [address] Performed By: #### 2 132-9 ####[facility] [id number] [place] [id number] [place] 25-hydroxyvitamin D3 [Mass/V ol]on 12-22-2023 Interpretation and review of laboratory results Normal [facility] The reference range interval was based on an analysis of samples from healthy adults and may not pertain to children from 0-18 years old. [facility] CBC W Auto Differential pane l (Bld)on 12-22-2023 Basophils (Bld) [#/Vol] 0.03 10*3/uL BANNERF [facility] Basophils/100 WBC (Bld) 0.4 % [facility] Differential cell count method Nom (Bld) Auto [facility] Eosinophils (Bld) [#/Vol] 0.54 10*3/uL High BANNERF [facility] Eosinophils/100 WBC (Bld) 7.7 % [facility] Erythrocyte distribution width (RBC) [Ratio] 14.2 % 11.5 - 15.0 % [facility] Hematocrit (Bld) [Volume fraction] 44.0 % 39.0 - 51.0 % [facility] Hemoglobin (Bld) [Mass/Vol] 15.2 g/dL 13.0 - 17.0 g/dL [facility] Immature granulocytes (Bld) [#/Vol] 0.03 10*3/uL BANNERF [facility] Immature granulocytes/100 WBC (Bld) 0.4 % [facility] Interpretation and review of laboratory results Abnormal [facility] Lymphocytes (Bld) [#/Vol] 1.45 10*3/uL [facility] Lymphocytes/100 WBC (Bld) 20.7 % [facility] MCH (RBC) [Entitic mass] 30.5 pg 26.0 - 34.0 pg [facility] MCHC (RBC) [Mass/Vol] 34.5 g/dL 30.5 - 36.0 g/dL [facility] MCV (RBC) [Entitic vol] 88.2 fL 80.0 - 100.0 fL [facility] Monocytes (Bld) [#/Vol] 0.62 10*3/uL [facility] Monocytes/100 WBC (Bld) 8.8 % [facility] Neutrophils (Bld) [#/Vol] 4.34 10*3/uL [facility] Neutrophils/100 WBC (Bld) 62.0 % [facility] Nucleated RBC (Bld) [#/Vol] BANNERF [facility] Nucleated RBC/100 WBC (Bld) [Ratio] 0.0 % /100 WBC [facility] Platelet mean volume (Bld) [Entitic vol] 10.0 fL 9.0 - 12.7 fL [facility] Platelets (Bld) [#/Vol] 126 10*3/uL Low [facility] RBC (Bld) [#/Vol] 4.99 10*6/uL 4.20 - 6.0 0 m/uL [facility] WBC (Bld) [#/Vol] 7.01 10*3/uL [facility] VITAMIN D 25 HYDROXYon 12-21 25-hydroxyvitamin D3 [Mass/Vol] 47.9 ng/mL 31.0 - 80.0 ng/mL [facility] Comment on above: Classification of 25 [place] Vitamin D status: Deficiency/Insufficiency: < or = 30 ng/ml. Sufficiency/Optimal Levels: 31-80 ng/mL Toxicity: > 100 ng/mL. Test performed by chemiluminescent immunoassay. CBC W Auto Differential pane l (Bld)on 12-06-2022 Basophils (Bld) [#/Vol] 0.03 10*3/uL <0.11 k/uL [facility] Basophils/100 WBC (Bld) 0.4 % [facility] Differential cell count method Nom (Bld) Auto [facility] Eosinophils (Bld) [#/Vol] 0.23 10*3/uL <0.46 k/uL [facility] Eosinophils/100 WBC (Bld) 3.3 % [facility] Erythrocyte distribution width (RBC) [Ratio] 16.5 % High 11.5 - 15.0 % [facility] Hematocrit (Bld) [Volume fraction] 38.5 % Low 39.0 - 51.0 % [facility] Hemoglobin (Bld) [Mass/Vol] 12.2 g/dL Low 13.0 - 17.0 g/dL [facility] Immature granulocytes (Bld) [#/Vol] 0.03 10*3/uL <0.10 k/uL [facility] Immature granulocytes/100 WBC (Bld) 0.4 % [facility] Lymphocytes (Bld) [#/Vol] 1.41 10*3/uL 1.00 - 4.00 k/uL [facility] Lymphocytes/100 WBC (Bld) 20.5 % [facility] MCH (RBC) [Entitic mass] 25.6 pg Low 26.0 - 34.0 pg [facility] MCHC (RBC) [Mass/Vol] 31.7 g/dL 30.5 - 36.0 g/dL [facility] MCV (RBC) [Entitic vol] 80.7 fL 80.0 - 100.0 fL [facility] Monocytes (Bld) [#/Vol] 0.75 10*3/uL <0.87 k/uL [facility] Monocytes/100 WBC (Bld) 10.9 % [facility] Neutrophils (Bld) [#/Vol] 4.43 10*3/uL 1.45 - 7.50 k/uL [facility] Neutrophils/100 WBC (Bld) 64.5 % [facility] Nucleated RBC (Bld) [#/Vol] <0.01 k/uL [facility] Nucleated RBC/100 WBC (Bld) [Ratio] 0.0 /100 WBC [facility] Platelet mean volume (Bld) [Entitic vol] 10.0 fL 9.0 - 12.7 fL [facility] Platelets (Bld) [#/Vol] 174 10*3/uL 150 - 400 k/uL [facility] RBC (Bld) [#/Vol] 4.77 10*6/uL 4.20 - 6.0 0 m/uL [facility] WBC (Bld) [#/Vol] 6.88 10*3/uL 3.70 - 11.00 k/uL [facility] Comprehensive metabolic 2000 panelon 12-06-2022 Albumin [Mass/Vol] 4.1 g/dL 3.9 - 4.9 g/dL [facility] ALP [Catalytic activity/Vol] 97 U/L 38 - 113 U/L [facility] ALT [Catalytic activity/Vol] 14 U/L 10 - 54 U/L [facility] Anion gap [Moles/Vol] 8 mmol/L Low 9 - 18 mmol/L [facility] AST [Catalytic activity/Vol] 16 U/L 14 - 40 U/L [facility] Bilirubin [Mass/Vol] 0.4 mg/dL 0.2 - 1 .3 mg/dL [facility] Calcium [Mass/Vol] 10.1 mg/dL 8.5 - 10. 2 mg/dL [facility] Chloride [Moles/Vol] 104 mmol/L 97 - 10 5 mmol/L [facility] CO2 [Moles/Vol] 26 mmol/L 22 - 30 mmol/L [facility] Creatinine [Mass/Vol] 1.24 mg/dL High 0.73 - 1.22 mg/dL [facility] Estimated Glomerular Filtration Rate 58 mL/min/1.73m Low >=60 mL/min/1.73 m [facility] Glucose [Mass/Vol] 84 mg/dL 74 - 99 mg/dL [facility] Potassium [Moles/Vol] 4.3 mmol/L 3.7 - 5.1 mmol/L [facility] Protein [Mass/Vol] 7.0 g/dL 6.3 - 8.0 g/dL [facility] Sodium [Moles/Vol] 138 mmol/L 136 - 144 mmol/L [facility] Urea nitrogen [Mass/Vol] 18 mg/dL 9 - 24 mg/dL [facility] FERRITIN BLDon 12-06-2022 Ferritin [Mass/Vol] 28.5 ng/mL Low 30.3 - 565.7 ng/mL [facility] Iron and Iron binding capaci ty panelon 12-06-2022 Iron [Mass/Vol] 39 ug/dL Low 41 - 186 ug/dL [facility] Iron binding capacity [Mass/Vol] 381 ug/dL 232 - 386 ug/dL [facility] Iron/TIBC [Molar ratio] 10.2 % Low 15.0 - 57.0 % [facility] PSA/PROSTSPECAG SCRNon 12-06 Prostate specific Ag [Mass/Vol] 1.90 ng/mL <2.60 ng/mL [facility] TSH BLDon 12-06-2022 TSH Qn 1.980 m[IU]/L 0.270 - 4.200 mIU/L [facility] VITAMIN B12 BLOODon 12-07-19 Cobalamin (Vitamin B12) [Mass/Vol] 911 pg/mL 232 - 1,245 pg/mL [facility] VITAMIN D 25 HYDROXYon 12-06 25-hydroxyvitamin D3 [Mass/Vol] 57.5 ng/mL 31.0 - 80.0 ng/mL [facility] CBC panel Auto (Bld)on 06-18 Erythrocyte distribution width (RBC) [Ratio] 14.5 % 11.5 - 15.0 % [facility] Hematocrit (Bld) [Volume fraction] 29.4 % Low 39.0 - 51.0 % [facility] Hemoglobin (Bld) [Mass/Vol] 10.1 g/dL Low 13.0 - 17.0 g/dL [facility] MCH (RBC) [Entitic mass] 30.6 pg 26.0 - 34.0 pg [facility] MCHC (RBC) [Mass/Vol] 34.4 g/dL 30.5 - 36.0 g/dL [facility] MCV (RBC) [Entitic vol] 89.1 fL 80.0 - 100.0 fL [facility] Nucleated RBC (Bld) [#/Vol] 0.02 10*3/uL High <0.01 k/uL [facility] Platelet mean volume (Bld) [Entitic vol] 10.3 fL 9.0 - 12.7 fL [facility] Platelets (Bld) [#/Vol] 168 10*3/uL 150 - 400 k/uL [facility] RBC (Bld) [#/Vol] 3.30 10*6/uL Low 4.20 - 6.0 0 m/uL [facility] WBC (Bld) [#/Vol] 9.59 10*3/uL 3.70 - 11.00 k/uL [facility] Absolute lymphocyte counton 06-15-2022 Lymphocytes Auto (Unsp spec) [#/Vol] 1.01 10*3/uL 0.83-4.51 [facility] Work Phone: Basophil percentageon 2021 Basophils/100 WBC (Bld) 0.2 % 0-1 [facility] Work Phone: Eosinophils/100 WBC (Bld) 0.9 % 0-5 [facility] Work Phone: Neutrophils (Bld) [#/Vol] 6.1 10*3/uL 2.0-7.7 [facility] Work Phone: Neutrophils/100 WBC (Bld) 75.6 % 47-70 [facility] Work Phone: WBC (Bld) [#/Vol] 8.1 10*3/uL 4.4-11.0 [facility] Work Phone: Chloride [Moles/Vol] 111 mmol/L 98-107 [facility] Work Phone: Glucose [Mass/Vol] 123 mg/dL 74-106 [facility] Work Phone: Comment on above: Fasting Glucose resu lt from 100 to 125 mg/dL suggests IMPAIRED HOMEOSTASIS per A.D.A. criteria. Potassium [Moles/Vol] 3.5 mmol/L 3.5-5.1 [facility] Work Phone: Sodium [Moles/Vol] 141 mmol/L 136-145 [facility] Work Phone: [phone] Blood erythrocytes count (nu mber/volume)on 06-15-2022 RBC (Bld) [#/Vol] 3.03 10*6/uL 4.6-6.2 [facility] Work Phone: Blood hemoglobin measurement (mass/volume)on 06-15-2022 Hemoglobin (Bld) [Mass/Vol] 9.0 g/dL 13.0-16.5 [facility] Work Phone: Blood lymphocytes/100 leukoc yteson 06-15-2022 Lymphocytes/100 WBC (Bld) 12.4 % 19-41 [facility] Work Phone: Blood monocytes/100 leukocyt eson 06-15-2022 Monocytes/100 WBC (Bld) 10.3 % 0-10 [facility] Work Phone: Blood platelet mean volumeon 06-15-2022 Platelet mean volume (Bld) [Entitic vol] 9.2 fL 6.2-12.0 [facility] Work Phone: Determination of erythrocyte mean corpuscular volume (MCV)on 06-15-2022 MCV (RBC) [Entitic vol] 88.1 fL 80-94 [facility] Work Phone: Hematocrit Auto (Bld) [Volum e fraction]on 06-15-2022 Hematocrit (Bld) [Volume fraction] 26.7 % 40-54 [facility] Work Phone: Laboratory - Chemistry and C hemistry - challengeon 06-15-2022 CO2 [Moles/Vol] 26.0 mmol/L 21.0-32.0 [facility] Work Phone: Urea nitrogen/Creatinine [Mass ratio] 38.5 mg/mg 10-20 [facility] Work Phone: Laboratory - Hematology and Cell countson 06-15-2022 Erythrocyte distribution width (RBC) [Entitic vol] 44.9 fL 35.1-43.9 [facility] Work Phone: Erythrocyte distribution width (RBC) [Ratio] 14.1 % 11.6-14.6 [facility] Work Phone: Immature granulocytes/100 WBC (Bld) 0.600 % 0.0-0.9 [facility] Work Phone: Comment on above: IG% - Immature Granu locytes (promyelocytes, myelocytes and metamyelocytes) > 1% indicates that a LEFT SHIFT is Present. MCH (RBC) [Entitic mass] 29.7 pg 27.0-32.0 [facility] Work Phone: Nucleated RBC/100 WBC (Bld) [Ratio] 0 % 0-5 [facility] Work Phone: MCHC Auto (RBC) [Mass/Vol]on 06-15-2022 MCHC (RBC) [Mass/Vol] 33.7 g/dL 32-36 [facility] Work Phone: No Panel Informationon 06-15 Estimated Creatinine Clearance Calc 46.34 ml/min [facility] Work Phone: Estimated GFR (MDRD) Amer 83 mL/min >60 [facility] Work Phone: Comment on above: GFR Calc Estimated GFR (MDRD) Non-Af Amer 69 mL/min >60 [facility] Work Phone: Comment on above: Non- GFR Calc Platelets bldon 06-15-2022 Platelets (Bld) [#/Vol] 109 10*3/uL 150-450 [facility] Work Phone: Serum or plasma calcium kimmie urement (mass/volume)on 06-15-2022 Calcium [Mass/Vol] 8.5 mg/dL 8.5-10.1 [facility] Work Phone: Serum or plasma creatinine m easurement (mass/volume)on 06-15-2022 Creatinine [Mass/Vol] 1.09 mg/dL 0.70-1.30 [facility] Work Phone: Comment on above: The validity of the calculated GFR & GFRAA in patients over 70 years has not been determined. Clinical correlation is essential. Serum or plasma urea nitroge n measurement (mass/volume)on 06-15-2022 Urea nitrogen [Mass/Vol] 42 mg/dL 7-18 [facility] Work Phone: Thin prep Papanicolaou smear with manual screeningon 06-15-2022 Thin prep Papanicolaou smear with manual screening 4 5-15 [facility] Work Phone: Basophil percentageon 2021 Basophil percentage 2.2 mg/dL 2.5-4.9 [facility] Work Phone: No Panel Informationon 06-14 Thyroid Stimulating Hormone (TSH) 0.56 uIU/mL 0.358-3.74 [facility] Work Phone: Review by pathologiston 05-26 Pathologist review Xu (Unsp spec) [Interp] Reviewed [facility] Work Phone: Comment on above: Previous reported re sult: Candace jackson Edited by: BAIRON on 06/14/22:1324Neutrophilic leukocytosis.Normocytic anemia.Clinical correlation suggested.Devon Hodgson D.O. 06/14/22 AMENDED REPORT 06/14/22 1324 PATH REV previously reported as: Candace jackson Absolute lymphocyte counton 06-13-2022 Lymphocytes Auto (Unsp spec) [#/Vol] 1.16 10*3/uL 0.83-4.51 [facility] Work Phone: Basophil percentageon 2021 Basophil percentage 0 SEEN /hpf 0-5 [facility] Work Phone: [phone] Basophils/100 WBC (Bld) 0.1 % 0-1 [facility] Work Phone: [phone] Bilirubin [Mass/Vol] 1.00 mg/dL 0.20-1.00 [facility] Work Phone: [phone] Comment on above: For patients on eltr ombopag therapy, use of Dimension [place] TBIL is not recommended. Chloride [Moles/Vol] 98 mmol/L 98-107 [facility] Work Phone: Eosinophils/100 WBC (Bld) 0.0 % 0-5 [facility] Work Phone: Glucose [Mass/Vol] 178 mg/dL 74-106 [facility] Work Phone: Comment on above: Fasting Glucose resu lt greater than or equal to 126 mg/dL suggests DIABETES MELLITUS per A.D.A. criteria. Neutrophils (Bld) [#/Vol] 14.4 10*3/uL 2.0-7.7 [facility] Work Phone: Neutrophils/100 WBC (Bld) 85.3 % 47-70 [facility] Work Phone: Potassium [Moles/Vol] 4.5 mmol/L 3.5-5.1 [facility] Work Phone: Comment on above: Moderate Hemolysis, Result may be falsely increased. Protein [Mass/Vol] 7.4 g/dL 6.4-8.2 [facility] Work Phone: Sodium [Moles/Vol] 136 mmol/L 136-145 [facility] Work Phone: WBC (Bld) [#/Vol] 16.9 10*3/uL 4.4-11.0 [facility] Work Phone: Bilirubin Test strip Ql (U)o n 06-13-2022 Bilirubin Ql (U) Negative Negative [facility] Work Phone: Blood erythrocytes count (nu mber/volume)on 06-13-2022 RBC (Bld) [#/Vol] 4.89 10*6/uL 4.6-6.2 [facility] Work Phone: Blood hemoglobin measurement (mass/volume)on 06-13-2022 Hemoglobin (Bld) [Mass/Vol] 14.5 g/dL 13.0-16.5 [facility] Work Phone: Blood lymphocytes/100 leukoc yteson 06-13-2022 Lymphocytes/100 WBC (Bld) 6.9 % 19-41 [facility] Work Phone: Blood monocytes/100 leukocyt eson 06-13-2022 Monocytes/100 WBC (Bld) 7.2 % 0-10 [facility] Work Phone: Blood platelet mean volumeon 06-13-2022 Platelet mean volume (Bld) [Entitic vol] 9.3 fL 6.2-12.0 [facility] Work Phone: Determination of erythrocyte mean corpuscular volume (MCV)on 06-13-2022 MCV (RBC) [Entitic vol] 87.1 fL 80-94 [facility] Work Phone: Hematocrit Auto (Bld) [Volum e fraction]on 06-13-2022 Hematocrit (Bld) [Volume fraction] 42.6 % 40-54 [facility] Work Phone: INR in Blood by Coagulation assayon 06-13-2022 INR Coag (Bld) [Relative time] 1.2 {INR} [facility] Work Phone: Ketones Test strip Ql (U)on 06-13-2022 Ketones Ql (U) 15 mg/dl Negative [facility] Work Phone: Laboratory - Chemistry and C hemistry - challengeon 06-13-2022 ALP [Catalytic activity/Vol] 88 U/L 45-117 [facility] Work Phone: ALT [Catalytic activity/Vol] 18 U/L 16-61 [facility] Work Phone: [phone] CO2 [Moles/Vol] 29.0 mmol/L 21.0-32.0 [facility] Work Phone: Globulin (S) [Mass/Vol] 3.6 g/dL 2.2-4.2 [facility] Work Phone: [phone] Lipase [Catalytic activity/Vol] 46 U/L 73-393 [facility] Work Phone: Magnesium [Mass/Vol] 2.2 mg/dL 1.6-2.6 [facility] Work Phone: Comment on above: Moderate Hemolysis, Result may be falsely increased. Urea nitrogen/Creatinine [Mass ratio] 30.3 mg/mg 06-13 [facility] Work Phone: Laboratory - Coagulationon 1 PT Coag (PPP) [Time] 15.0 s 11.7-14.9 [facility] Work Phone: Laboratory - Hematology and Cell countson 06-13-2022 Erythrocyte distribution width (RBC) [Entitic vol] 44.2 fL 35.1-43.9 [facility] Work Phone: Erythrocyte distribution width (RBC) [Ratio] 13.9 % 11.6-14.6 [facility] Work Phone: Immature granulocytes/100 WBC (Bld) 0.500 % 0.0-0.9 [facility] Work Phone: Comment on above: IG% - Immature Granu locytes (promyelocytes, myelocytes and metamyelocytes) > 1% indicates that a LEFT SHIFT is Present. MCH (RBC) [Entitic mass] 29.7 pg 27.0-32.0 [facility] Work Phone: Nucleated RBC/100 WBC (Bld) [Ratio] 0 % 0-5 [facility] Work Phone: MCHC Auto (RBC) [Mass/Vol]on 06-13-2022 MCHC (RBC) [Mass/Vol] 34.0 g/dL 32-36 [facility] Work Phone: Mucus LM Ql (Urine sed)on Mucus Ql (Urine sed) 0 SEEN /hpf [facility] Work Phone: Nitrite Test strip Ql (U)on 06-13-2022 Nitrite Ql (U) Negative Negative [facility] Work Phone: No Panel Informationon 06-13 Estimated Creatinine Clearance Calc 36.09 ml/min [facility] Work Phone: Estimated GFR (MDRD) Amer 60 mL/min >60 [facility] Work Phone: Comment on above: GFR Calc Estimated GFR (MDRD) Non-Af Amer 49 mL/min >60 [facility] Work Phone: Comment on above: Non- GFR Calc Platelets bldon 06-13-2022 Platelets (Bld) [#/Vol] 205 10*3/uL 150-450 [facility] Work Phone: Protein Test strip Ql (U)on 06-13-2022 Protein Ql (U) 30 mg/dl Negative [facility] Work Phone: Serum or plasma albumin kimmie urement (mass/volume)on 06-13-2022 Albumin [Mass/Vol] 3.8 g/dL 3.2-5.0 [facility] Work Phone: Serum or plasma albumin/glob ulin mass ratioon 06-13-2022 Albumin/Globulin [Mass ratio] 1.1 {ratio} 0.9-2.4 [facility] Work Phone: Serum or plasma calcium kimmie urement (mass/volume)on 06-13-2022 Calcium [Mass/Vol] 9.7 mg/dL 8.5-10.1 [facility] Work Phone: Serum or plasma creatinine m easurement (mass/volume)on 06-13-2022 Creatinine [Mass/Vol] 1.45 mg/dL 0.70-1.30 [facility] Work Phone: Comment on above: The validity of the calculated GFR & GFRAA in patients over 70 years has not been determined. Clinical correlation is essential. Serum or plasma urea nitroge n measurement (mass/volume)on 06-13-2022 Urea nitrogen [Mass/Vol] 44 mg/dL 7-18 [facility] Work Phone: Squamous epithelial cells de tection in urine sediment by light microscopyon 06-13-2022 Epithelial cells.squamous LM Ql (Urine sed) 0-5 SEEN /hpf 0-5 [facility] Work Phone: Thin prep Papanicolaou smear with manual screeningon 06-13-2022 Thin prep Papanicolaou smear with manual screening 23 U/L 15-37 [facility] Work Phone: Comment on above: Moderate Hemolysis, Result may be falsely increased. Thin prep Papanicolaou smear with manual screening 9 5-15 [facility] Work Phone: Urine blood detectionon --2021 RBC Ql (U) Negative Negative [facility] Work Phone: RBC Ql (U) 0 SEEN /hpf 0-5 [facility] Work Phone: Urine clarityon 06-13-2022 Clarity (U) Clear Clear [facility] Work Phone: Urine color determinationon 06-13-2022 Color (U) Yellow Yellow [facility] Work Phone: Urine glucose detectionon Glucose Ql (U) 50 mg/dl Normal [facility] Work Phone: Urine leukocyte esterase det ection by dipstickon 06-13-2022 Leukocyte esterase Test strip Ql (U) Negative Negative [facility] Work Phone: Urine pHon 06-13-2022 pH (U) 8.0 [pH] 5.0 - 8.0 [facility] Work Phone: Urine sediment bacteria coun t by microscopy (number/high power field)on 06-13-2022 Bacteria LM.HPF (Urine sed) [#/Area] 1 /[HPF] None Seen [facility] Work Phone: Urine specific gravity measu rementon 06-13-2022 Specific gravity (U) [Rel density] 1.010 1.002-1.030 [facility] Work Phone: Urobilinogen Auto test strip Ql (U)on 06-13-2022 Urobilinogen Ql (U) Normal mg/dl Normal [facility] Work Phone: ANES POSTPROC EVALon 022 ANES POSTPROC EVAL HNO ID: [id number] Author: Fernando Salinas MD Service: Anesthesiology Author Type: Anesthesiologist Type: Anesthesia Postprocedure Evaluation Filed: 06/12/2022 1:06 PM Note Text: POST ANESTHESIA EVALUATION NOTE : 1940 Procedure Summary Date: 06/12/22 Room / Location: [place] [address] / [place] Anesthesia Start: 1140 Anesthesia Stop: 1300 [...] June 12, 2022 TIME: 1:06 PM CSN: [id number] [facility] ANES PRE-OPon 06-12-2022 ANES PRE-OP HNO ID: [id number] Author: Fernando Salinas MD Service: Anesthesiology Author [...] June 12, 2022 TIME: 10:26 AM CSN: [id number] [facility] HISTORY PHYSICALon HISTORY PHYSICAL HNO ID: [id number] Author: Florencio Tesfaye MD Service: General Surgery [...] Macular degeneration NSTEMI (non-ST elevated myocardial infarction) ([facility]) 10/28/2019 Osteoarthritis of left hip Paresthesia PMH [...] 07/28/07 DIR RPR ANEURYSM ABDOMINAL AORTA 04/20/2011 [facility] EYLEA (AFLIBERCEPT) 2MG INTRAVITREAL INJECTION OD (RIGHT [...] Tobacco Use Smokin (more content not included)... [facility] OPERATIVE NOon 06-12-2022 OPERATIVE NO HNO ID: [id number] Author: Florencio Tesfaye MD Service: General Surgery Author Type: Physician Type: Operative Report Filed: 06/12/2022 12:59 PM Note Text: OPERATIVE/PROCEDURE REPORT LOG ID: [id number] SURGERY/PROCEDURE DATE: 06/12/2022 INCISION/PROCEDURE START TIME: 12:00 PM INCISION CLOSE/PROCEDURE END TIME: 12:49 PM SURGEON(S)/PROCEDURALI ST(S) AND AUTISM MOTOR SPECIALIST(S): Surgeon(s) and Role: * Florencio Tesfaye MD - Primary Nurse Practitioner: Nuria Banks APRN.PMO CONSULTANT Physician Asbestos Wire Finisher: Indy Mosqueda PA-C SURGERY/PROCEDURE(S): Laparoscopic bilateral inguinal hernia repair with mesh ANESTHESIA: General SURGERY/PROCEDURE DETAILS: Patient was brought into the operating room. Placed in the supine position. Under excellent general anesthetic the abdomen was sterilely prepped and draped in the usual fashion. Local was injected supraumbilically. Dissection was carried down to the fascia the fascia was grasped with a Macy varies needle was placed inside the abdomen [...] the fascia the umbilical port with a etabuq-sl-[id number] stitch of 0 Vicryl. Skin incisions were closed with subcuticular stitches of 4-0 Monocryl. Steri-Strips were applied sterile dressings were applied patient tolerated the procedure well. Nuria Banks CNP was my intellectual property legal assistant. She assisted with retraction, visualization and [...] DATE: June 12, 2022 TIME: 12:53 PM [facility] Basic metabolic 2000 panelon 05-31-2022 Anion gap [Moles/Vol] 8 mmol/L Low 9 - 18 mmol/L [facility] Calcium [Mass/Vol] 9.2 mg/dL 8.5 - 10. 2 mg/dL [facility] Chloride [Moles/Vol] 104 mmol/L 97 - 10 5 mmol/L [facility] CO2 [Moles/Vol] 24 mmol/L 22 - 30 mmol/L [facility] Creatinine [Mass/Vol] 1.15 mg/dL 0.73 - 1.22 mg/dL [facility] Estimated Glomerular Filtration Rate 63 mL/min/1.73m >=60 mL/min/1.73 m [facility] Glucose [Mass/Vol] 126 mg/dL High 74 - 99 mg/dL [facility] Potassium [Moles/Vol] 4.1 mmol/L 3.7 - 5.1 mmol/L [facility] Sodium [Moles/Vol] 136 mmol/L 136 - 144 mmol/L [facility] Urea nitrogen [Mass/Vol] 25 mg/dL High 9 - 24 mg/dL [facility] CBC W Auto Differential pane l (Bld)on 05-31-2022 Abs Immature Gran <0.10 k/uL [facility] Basophils (Bld) [#/Vol] 0.03 10*3/uL <0.11 k/uL [facility] Basophils/100 WBC (Bld) 0.4 % C [facility] Differential cell count method Nom (Bld) Auto [facility] Eosinophils (Bld) [#/Vol] 0.32 10*3/uL <0.46 k/uL [facility] Eosinophils/100 WBC (Bld) 4.6 % [facility] Erythrocyte distribution width (RBC) [Ratio] 13.8 % 11.5 - 15.0 % [facility] Hematocrit (Bld) [Volume fraction] 40.4 % 39.0 - 51.0 % [facility] Hemoglobin (Bld) [Mass/Vol] 14.2 g/dL 13.0 - 17.0 g/dL [facility] Immature Gran % 0.3 % [facility] Lymphocytes (Bld) [#/Vol] 1.58 10*3/uL 1.00 - 4.00 k/uL [facility] Lymphocytes/100 WBC (Bld) 22.9 % [facility] MCH (RBC) [Entitic mass] 30.3 pg 26.0 - 34.0 pg [facility] MCHC (RBC) [Mass/Vol] 35.1 g/dL 30.5 - 36.0 g/dL [facility] MCV (RBC) [Entitic vol] 86.1 fL 80.0 - 100.0 fL [facility] Monocytes (Bld) [#/Vol] 0.64 10*3/uL <0.87 k/uL [facility] Monocytes/100 WBC (Bld) 9.3 % [facility] Neutrophils (Bld) [#/Vol] 4.31 10*3/uL 1.45 - 7.50 k/uL [facility] Neutrophils/100 WBC (Bld) 62.5 % [facility] Nucleated RBC (Bld) [#/Vol] <0.01 k/uL [facility] Nucleated RBC/100 WBC (Bld) [Ratio] 0.0 /100 WBC [facility] Platelet mean volume (Bld) [Entitic vol] 9.2 fL 9.0 - 12.7 fL [facility] Platelets (Bld) [#/Vol] 126 10*3/uL Low 150 - 400 k/uL [facility] RBC (Bld) [#/Vol] 4.69 10*6/uL 4.20 - 6.0 0 m/uL [facility] WBC (Bld) [#/Vol] 6.90 10*3/uL 3.70 - 11.00 k/uL [facility] Basophil percentageon 2021 Creatinine [Mass/Vol] 1.3 mg/dL 0.70-1.30 [facility] Work Phone: Laboratory - Chemistry and C hemistry - challengeon 01-01-2022 GFR/1.73 sq M.predicted among non-blacks MDRD (S/P/Bld) [Vol rate/Area] 54.0000 mL/min/{1.73_m2} >60 [facility] Work Phone: VL AORTA/IVC/ILIAC/BYPASS GR AFT COMPLETEOrdered By: Shailesh Stone on 06-20-2021 [facility] ----- Abdominal Aortic Endograft Report Patient DO ShilohB: 1940 Study 06/20/2021 Name: Todd Presley (81yrs) Date: Patient [id number] Age: 81 Account: [id number] ID: Gender: M Loc: BP: Ordering Physician: Shailesh Stone Satellite Tv Technician: SHERWIN MaharajT Interpreting Physician: Prachi López MD ----- Location: [address] ----- Indications: AAA without rupture. ----- [...] supine position. Images were obtained using a SunPods E9 vascular ultrasound machine. The study was [...] + + + (more content not included)... [employer] Work Phone: [place], [facility] Incoming Cardiology Results From [employer] [facility] - 06/20/2021 5:22 PM EDT [facility] ----- Abdominal Aortic Endograft Report Patient Shiloh, : 1940 Study 06/20/2021 Name: Todd Presley (yr) Date: Patient [id number] Age: 81 Account: [id number] ID: Gender: M Loc: BP: Ordering Physician: Shailesh Stone Satellite Tv Technician: Valerie Ulloa RVT Interpreting Physician: Prachi López MD ----- Location: [address] ----- Indications: AAA without rupture. ----- [...] supine position. Images were obtained using a SunPods E9 vascular ultrasound machine. The study was [...] ----+ +Left limb+ (more content not included)... [employer] Work Phone: [place] Phone: VL Aorta Iliac Duplex w/ Te nt [place] 06-20-2021 VL Aorta Iliac Duplex w/ Stent Graft Patient Name: TODD MATAMOROS [facility]#: [id number] Ultrasound ACCESSION EXAM DATE/TIME PROCEDURE ORDERING PROVIDER [phone] 06/20/2021 10:18 EDT VL Aorta Iliac Duplex w/ [id number] -SHAILESH STONE Stent Graft CPT code [id number] Reason For Exam (VL Aorta Iliac Duplex w/ Stent Graft) Presence of other vascular implants and grafts Report [facility] ----- Abdominal Aortic Endograft Report Patient DO ShilohB: 1940 Study 06/20/2021 Name: Todd Presley (81yrs) Date: Patient [id number] Age: 81 Account: [id number] ID: Gender: M Loc: BP: Ordering Physician: Shailesh Stone Satellite Tv Technician: Valerie Ulloa RVT Interpreting Physician: Prachi López MD ----- Location: [address] ----- Indications: AAA without rupture. ----- [...] supine position. Images were obtained using a SunPods E9 vascular ultrasound machine. The study was [...] +Artery + (more content not included)... Normal [facility] VL Aorta IVC Bypass Leilani 06-02-2020 [facility] ----- Abdominal Aortic Endograft Report Ordering Physician: John Clark MD Satellite Tv Technician: Mae Brito [facility] Interpreting Physician: Fernando Walker MD ----- Location: [address] ----- Indications: AAA without rupture, history [...] supine position. Images were obtained using a SunPods E9 vascular ultrasound machine. ----- Arterial pressure [...] signed by Fernando Walker MD 06/02/2020 14:26 [facility] [place], [place], [facility] Results From [employer] - 06/02/2020 2:26 PM EDT [facility] ----- Abdominal Aortic Endograft Report Ordering Physician: John Clark MD Satellite Tv Technician: SHERWIN JayT Interpreting Physician: Fernando Walker MD ----- Location: [address] ----- Indications: AAA without rupture, history [...] supine position. Images were obtained using a SunPods E9 vascular ultrasound machine. ----- Arterial pressure [...] signed by Fernando Walker MD 06/02/2020 14:26 [place], [place] Clinical Summary: HMSPatient IDon 05-12-2018 OOP Invalid Interpretation Code [facility] Work Phone: Office Visit: Follow-up by Mann peng: 1on 05-12-2018 NEGATED: Highlighted rowProtein mass conc Done Invalid Interpretation Code [facility] Work Phone: Lab Report: Lipid Profileon 08-12-2017 Cholesterol 112 mg/dL Invalid Interpretation Code 200 [facility] Work Phone: HDL Cholesterol 35 mg/dL Low [facility] Work Phone: LDL Cholesterol 45 mg/dL Invalid Interpretation Code 0-130 [facility] Work Phone: Triglyceride 162 mg/dL Invalid Interpretation Code [facility] Work Phone: very low density lipoproteins 32 mg/dL Invalid Interpretation Code 5-40 [facility] Work Phone: Lab Report: Liver Profileon 08-12-2017 Alanine aminotransferase (ALT) 17 U/L Invalid Interpretation Code 12-78 [facility] Work Phone: Albumin 3.6 g/dL Invalid Interpretation Code 3.4-5.0 [facility] Work Phone: [phone] Alkaline phosphatase (ALP) 145 U/L High 45-117 [facility] Work Phone: [phone] Aspartate aminotransferase (AST) 15 U/L Invalid Interpretation Code 15-37 [facility] Work Phone: [phone] Bilirubin (direct) 0.14 mg/dL Invalid Interpretation Code 0.00-0.30 [facility] Work Phone: [phone] Bilirubin (total) 0.50 mg/dL Invalid Interpretation Code 0.20-1.00 [facility] Work Phone: [phone] Globulin 4.4 g/dL High 2.2-4.2 [facility] Work Phone: [phone] Protein 8.0 g/dL Invalid Interpretation Code 6.4-8.2 [facility] Work Phone: [phone] Office Visiton 02-03-2017 Documentation of current medications (procedure) Done Invalid Interpretation Code [facility] Work Phone: [phone] Fall risk assessment No Invalid Interpretation Code [facility] Work Phone: [phone] Protein mass conc Done [facility] Work Phone: [phone] Chart Maintenanceon 02-02-20 17 Left ventricular Ejection fraction 65 % Invalid Interpretation Code [facility] Phone: [phone] Lab Report: Lipid Profileon 01-31-2017 Cholesterol 127 mg/dL Invalid Interpretation Code 200 [facility] Work Phone: [phone] HDL Cholesterol 40 mg/dL Invalid Interpretation Code [facility] Work Phone: [phone] LDL Cholesterol 54 mg/dL Invalid Interpretation Code 0-130 [facility] Work Phone: [phone] Triglyceride 166 mg/dL Invalid Interpretation Code [facility] Work Phone: [phone] very low density lipoproteins 33 mg/dL Invalid Interpretation Code 5-40 [facility] Work Phone: [phone] Lab Report: Liver Profileon 01-31-2017 Alanine aminotransferase (ALT) 26 U/L Invalid Interpretation Code 12-78 [facility] Work Phone: [phone] Albumin 3.8 g/dL Invalid Interpretation Code 3.4-5.0 [facility] Work Phone: [phone] Alkaline phosphatase (ALP) 132 U/L High 45-117 [facility] Work Phone: [phone] ALP enzyme act/vol (Bld) 132 U/L High 45-117 [facility] Work Phone: [phone] Aspartate aminotransferase (AST) 16 U/L Invalid Interpretation Code 15-37 [facility] Work Phone: [phone] Bilirubin (direct) 0.19 mg/dL Invalid Interpretation Code 0.00-0.30 [facility] Work Phone: [phone] Bilirubin (total) 0.70 mg/dL Invalid Interpretation Code 0.20-1.00 [facility] Work Phone: [phone] Globulin 3.5 g/dL Invalid Interpretation Code 2.3-3.5 [facility] Work Phone: [phone] Globulin mass conc (S) 3.5 g/dL 2.3-3.5 [facility] Work Phone: [phone] Protein 7.3 g/dL Invalid Interpretation Code 6.4-8.2 [facility] Work Phone: [phone] Office Visiton 07-30-2016 Documentation of current medications (procedure) Done Invalid Interpretation Code [facility] Work Phone: [phone] Protein mass conc Done [facility] Work Phone: [phone] Tobacco smoking status AZIS Tobacco smoking status AZIS Invalid Interpretation Code [facility] Work Phone: [phone] Tobacco smoking status [facility] Former smoker [facility] Work Phone: [phone] Tobacco use [facility] Former smoker Invalid Interpretation Code [facility] Work Phone: [phone] Lab Report: Lipid Profileon 07-01-2016 Cholesterol in HDL mass conc 31 mg/dL Low [facility] Work Phone: [phone] Cholesterol in LDL mass conc 29 mg/dL 0-130 [facility] Work Phone: [phone] Cholesterol mass conc 106 mg/dL [address] [facility] Work Phone: [phone] Lipoprotein.pre-beta mass conc 46 mg/dL High 5-40 [facility] Work Phone: [phone] Triglyceride mass conc 232 mg/dL High [facility] Work Phone: [phone] Lab Report: Liver Profileon 07-01-2016 Albumin mass conc 4.0 g/dL 3.4-5.0 [facility] Work Phone: [phone] ALP enzyme act/vol (Bld) 137 U/L High 50-136 [facility] Work Phone: [phone] ALT enzyme act/vol 25 U/L 12-78 [facility] Work Phone: [phone] AST enzyme act/vol 23 U/L 15-37 [facility] Work Phone: [phone] Bilirubin mass conc 0.70 mg/dL 0.20-1.00 [facility] Work Phone: [phone] Bilirubin.direct mass conc 0.15 mg/dL 0.00-0.30 [facility] Work Phone: [phone] Globulin mass conc (S) 3.3 g/dL 2.3-3.5 [facility] Work Phone: [phone] Protein mass conc 7.3 g/dL 6.4-8.2 [facility] Work Phone: [phone] Office Visiton 01-02-2016 Dietary management education, guidance, and counseling (procedure) yes Invalid Interpretation Code [facility] Work Phone: [phone] Office Visiton 07-03-2015 cardiac risk group C Invalid Interpretation Code [facility] Work Phone: [phone] General cardiovascular disease 10Y risk [#] [place].D'Agostino N/A Invalid Interpretation Code [facility] Work Phone: [phone] Protein mass conc yes [facility] Work Phone: [phone] Smoking cessation education (procedure) yes Invalid Interpretation Code [facility] Work Phone: [phone] Lab Report: LIVERon 06-14-20 14 ALK 139 U/L High 50-136 [facility] Work Phone: [phone] GE use only - for [employer] import when terms are not otherwise specified 139 U/L High 50-136 [facility] Work Phone: [phone] Replaced Document: Harjit Orr 05-24-2013 EKG QRS axis 28 deg [facility] Work Phone: [phone] electrocardiogram interpretation Sinus Bradycardia WITHIN NORMAL LIMITS Invalid Interpretation Code [facility] Work Phone: [phone] Interpretation Sinus Bradycardia WITHIN NORMAL LIMITS [facility] Work Phone: [phone] P [place] 55 deg [facility] Work Phone: [phone] P wave axis, electrocardiogram 55 deg Invalid Interpretation Code [facility] Work Phone: [phone] IL Interval 138 ms [facility] Work Phone: [phone] IL interval, electrocardiogram 138 ms Invalid Interpretation Code [facility] Work Phone: [phone] Pulse (Heart Rate) 442 ms Invalid Interpretation Code [facility] Work Phone: [phone] Pulse (Heart Rate) 57 /min Invalid Interpretation Code [facility] Work Phone: [phone] QRS axis, electrocardiogram 28 deg Invalid Interpretation Code [facility] Work Phone: [phone] QRS Duration 98 ms [facility] Work Phone: [phone] QRS duration, electrocardiogram 98 ms Invalid Interpretation Code [facility] Work Phone: [phone] QT Interval new path ms [facility] Work Phone: [phone] QT interval, electrocardiogram new path ms Invalid Interpretation Code [facility] Work Phone: [phone] T [place] 79 deg [facility] Work Phone: [phone] T wave axis, electrocardiogram 79 deg Invalid Interpretation Code [facility] Work Phone: [phone] Hemoglobin.gastrointestinal Ql ([place] f[place]) Gastric Occult Blood Positive [facility] Work Phone: Vital Signs Date Time Vital Sign Value Performing Clinician Facility 03-22-2025 14:16-0400 Body height 167.[address] Robel Onofre DO Work Phone: [facility] 03-22-2025 14:16-0400 Body mass index (BMI) [Ratio] 29.9 kg/m2 Dr. Robel Onofre DO Work Phone: 6(326)414-271240 [place] [address] 03-22-2025 14:16-0400 Body weight 84.[address] Robel Onofre DO Work Phone: 0(127)071-245340 [place] [address] 03-22-2025 14:16-0400 Diastolic blood pressure 73 mm[Hg] Dr. Robel Onofre DO Work Phone: 6(867)598-543940 [place] [address] 03-22-2025 14:16-0400 Heart rate 57 /min Dr. Robel Onofre DO Work Phone: 4(790)562-608340 [place] [address] 03-22-2025 14:16-0400 Respiratory rate 16 /min Dr. Robel Onofre DO Work Phone: 1(155)360-563273 [place] [address] 03-22-2025 14:16-0400 Systolic blood pressure 149 mm[Hg] Dr. Robel Onofre DO Work Phone: 3(205)181-180240 [place] [address] 12-27-2024 10:58-0400 Body mass index (BMI) [Ratio] 28.23 kg/m2 Robel Onofre DO Work Phone: [facility] 12-27-2024 10:58-0400 Body temperature 98.6 [degF] Robel Onofre DO Work Phone: [facility] 12-27-2024 10:58-0400 Body weight 82.56 kg Robel Hernandezon DO Work Phone: [facility] 12-27-2024 10:58-0400 Diastolic blood pressure 70 mm[Hg] Robel Hernandezon DO Work Phone: [facility] 12-27-2024 10:58-0400 Heart rate 60 /min Robel Hernandezon DO Work Phone: [facility] 12-27-2024 10:58-0400 Respiratory rate 20 /min Robel Onofre DO Work Phone: [facility] 12-27-2024 10:58-0400 Systolic blood pressure 110 mm[Hg] Robel Onofre DO Work Phone: [facility] 12-14-2024 14:57-0400 Body temperature 97.4 [degF] Dr. Robel Onofre DO Work Phone: [facility] 12-14-2024 14:57-0400 Diastolic blood pressure 92 mm[Hg] Dr. Robel Onofre DO Work Phone: [facility] 12-14-2024 14:57-0400 Heart rate 52 /min Dr. Robel Onofre DO Work Phone: [facility] 12-14-2024 14:57-0400 Respiratory rate 18 /min Dr. Robel Onofre DO Work Phone: [facility] 12-14-2024 14:57-0400 SaO2% (BldA) [Mass fraction] 97 % Dr. Robel Onofre DO Work Phone: [facility] 12-14-2024 14:57-0400 Systolic blood pressure 174 mm[Hg] Dr. Robel Onofre DO Work Phone: 4([phone])975-541640 [place] [address] 12-14-2024 12:40-0400 Body height 167.[address] Robel Onofre DO Work Phone: [facility] 12-14-2024 11:45-0400 Body mass index (BMI) [Ratio] 28.76 kg/m2 Asha Hernandez APRN.PMO CONSULTANT Work Phone: [facility] 12-14-2024 11:45-0400 Body weight 84.1 kg Asha Hernandez MANAGER [employer].PMO CONSULTANT Work Phone: [facility] 12-14-2024 11:45-0400 Diastolic blood pressure 84 mm[Hg] Asha Hernandez MANAGER [employer].PMO CONSULTANT Work Phone: [facility] 12-14-2024 11:45-0400 Heart rate 54 /min Asha Hernandez APRN.PMO CONSULTANT Work Phone: [facility] 12-14-2024 11:45-0400 Respiratory rate 12 /min Asha Hernandez MANAGER [employer].PMO CONSULTANT Work Phone: [facility] 12-14-2024 11:45-0400 SaO2% (BldA) [Mass fraction] 98 % Asha AlvaradoAnamaria MANAGER [employer].PMO CONSULTANT Work Phone: [facility] 12-14-2024 11:45-0400 Systolic blood pressure 152 mm[Hg] Asha Hernandez MANAGER [employer].PMO CONSULTANT Work Phone: [facility] 06-30-2024 10:29-0500 Body mass index (BMI) [Ratio] 28.85 kg/m2 Robel Onofre DO Work Phone: [facility] 06-30-2024 10:29-0500 Body temperature 97.81 [degF] Robel Onofre DO Work Phone: [facility] 06-30-2024 10:29-0500 Body weight 84.37 kg Robel Onofre DO Work Phone: [facility] 06-30-2024 10:29-0500 Diastolic blood pressure 80 mm[Hg] Robel Onofre DO Work Phone: [facility] 06-30-2024 10:29-0500 Heart rate 64 /min Robel Onofre DO Work Phone: [facility] 06-30-2024 10:29-0500 Respiratory rate 20 /min Robel Onofre DO Work Phone: [facility] 06-30-2024 10:29-0500 Systolic blood pressure 140 mm[Hg] Robel Onofre DO Work Phone: [facility] 03-10-2024 12:21-0400 Body mass index (BMI) [Ratio] 27.74 kg/m2 Bessie Ambrocio MANAGER [employer].PMO CONSULTANT Work Phone: [facility] 03-10-2024 12:21-0400 Body weight 81.1 kg Bessie Ambrocio MANAGER [employer].PMO CONSULTANT Work Phone: [facility] 03-10-2024 12:21-0400 Diastolic blood pressure 78 mm[Hg] Bessie Cristóbal MANAGER [employer].PMO CONSULTANT Work Phone: [facility] 03-10-2024 12:21-0400 Heart rate 55 /min Bessie Cristóbal MANAGER [employer].PMO CONSULTANT Work Phone: [facility] 03-10-2024 12:21-0400 Respiratory rate 18 /min Bessie Cristóbal MANAGER [employer].PMO CONSULTANT Work Phone: [facility] 03-10-2024 12:21-0400 SaO2% (BldA) [Mass fraction] 96 % Bessie Cristóbal MANAGER [employer].PMO CONSULTANT Work Phone: [facility] 03-10-2024 12:21-0400 Systolic blood pressure 136 mm[Hg] Bessie Cristóbal MANAGER [employer].PMO CONSULTANT Work Phone: [facility] 02-04-2024 12:48-0400 Body mass index (BMI) [Ratio] 27.67 kg/m2 Bessie Cristóbal MANAGER [employer].PMO CONSULTANT Work Phone: [facility] 02-04-2024 12:48-0400 Body weight 80.92 kg Bessie Cristóbal MANAGER [employer].PMO CONSULTANT Work Phone: [facility] 02-04-2024 12:48-0400 Diastolic blood pressure 80 mm[Hg] Bessie Cristóbal MANAGER [employer].PMO CONSULTANT Work Phone: [facility] 02-04-2024 12:48-0400 Heart rate 52 /min Bessie Cristóbal MANAGER [employer].PMO CONSULTANT Work Phone: [facility] 02-04-2024 12:48-0400 Respiratory rate 20 /min Bessie Cristóbal MANAGER [employer].PMO CONSULTANT Work Phone: [facility] 02-04-2024 12:48-0400 SaO2% (BldA) [Mass fraction] 96 % Bessie Cristóbal MANAGER [employer].PMO CONSULTANT Work Phone: [facility] 02-04-2024 12:48-0400 Systolic blood pressure 122 mm[Hg] Bessie Ambrocio APRNBeataPMO CONSULTANT Work Phone: [facility] 12-22-2023 12:12-0400 Body mass index (BMI) [Ratio] 27.92 kg/m2 Robel Onofre DO Work Phone: [facility] 12-22-2023 12:12-0400 Body temperature 96.69 [degF] Robel Onofre DO Work Phone: [facility] 12-22-2023 12:12-0400 Body weight 81.65 kg Robel Onofre DO Work Phone: [facility] 12-22-2023 12:12-0400 Diastolic blood pressure 70 mm[Hg] Robel Onofre DO Work Phone: [facility] 12-22-2023 12:12-0400 Heart rate 64 /min Robel Onofre DO Work Phone: [facility] 12-22-2023 12:12-0400 Respiratory rate 20 /min Robel Onofre DO Work Phone: [facility] 12-22-2023 12:12-0400 Systolic blood pressure 120 mm[Hg] Robel Onofre DO Work Phone: [facility] 06-13-2023 13:19-0400 Body height 171 cm Robel Onofre DO Work Phone: [facility] 06-13-2023 13:19-0400 Body temperature 96.69 [degF] Robel Onofre DO Work Phone: [facility] 06-13-2023 13:190400 Body weight 83.92 kg Robel Onofre DO Work Phone: [facility] 06-13-2023 13:19-0400 Diastolic blood pressure 70 mm[Hg] Robel Onofre DO Work Phone: [facility] 06-13-2023 13:19-0400 Heart rate 56 /min Robel Onofre DO Work Phone: [facility] 06-13-2023 13:19-0400 Respiratory rate 24 /min Robel Onofre DO Work Phone: [facility] 06-13-2023 13:19-0400 Systolic blood pressure 136 mm[Hg] Robel Onofre DO Work Phone: [facility] 12-06-2022 09:36-0400 Body temperature 97.7 [degF] Robel Onofre DO Work Phone: [facility] 12-06-2022 09:36-0400 Body weight 82.56 kg Robel Onofre DO Work Phone: [facility] 12-06-2022 09:36-0400 Diastolic blood pressure 60 mm[Hg] Robel Onofre DO Work Phone: [facility] 12-06-2022 09:36-0400 Heart rate 60 /min Robel Onofre DO Work Phone: [facility] 12-06-2022 09:36-0400 Respiratory rate 20 /min Robel Onofre DO Work Phone: [facility] 12-06-2022 09:36-0400 Systolic blood pressure 120 mm[Hg] Robel Onofre DO Work Phone: [facility] 07-03-2022 07:49-0500 Body weight 81.56 kg Bessie Cristóbal MANAGER [employer].PMO CONSULTANT Work Phone: [facility] 07-03-2022 07:49-0500 Diastolic blood pressure 80 mm[Hg] Bessie Cristóbal MANAGER [employer].PMO CONSULTANT Work Phone: [facility] 07-03-2022 07:49-0500 Heart rate 55 /min Bessie Cristóbal MANAGER [employer].PMO CONSULTANT Work Phone: [facility] 07-03-2022 07:49-0500 SaO2% (BldA) [Mass fraction] 98 % Bessie Cristóbal MANAGER [employer].PMO CONSULTANT Work Phone: [facility] 07-03-2022 07:49-0500 Systolic blood pressure 128 mm[Hg] Bessie Cristóbal MANAGER [employer].PMO CONSULTANT Work Phone: [facility] 06-15-2022 12:48-0400 Body temperature 98.5 [degF] Dr. Robel Onofre Work Phone: [facility] Work Phone: 06-15-2022 12:48-0400 Diastolic blood pressure 48 mm[Hg] Dr. Robel Onofre Work Phone: [facility] Work Phone: 06-15-2022 12:48-0400 Heart rate 63 /min Dr. Robel Onofre Work Phone: [facility] Work Phone: 06-15-2022 12:48-0400 Respiratory rate 18 /min Dr. Robel Onofre Work Phone: [facility] Work Phone: 06-15-2022 12:48-0400 SaO2% (BldA) [Mass fraction] 94 % Dr. Robel Onofre Work Phone: [facility] Work Phone: 06-15-2022 12:48-0400 Systolic blood pressure 111 mm[Hg] Dr. Robel Onofre Work Phone: [facility] Work Phone: 06-15-2022 03:54-0400 Body weight 82.[address] Robel Onofre Work Phone: [facility] Work Phone: 06-14-2022 15:08-0400 Body height [address] Robel Onofre Work Phone: [facility] Work Phone: 06-14-2022 15:08-0400 Body mass index (BMI) [Ratio] 27.2 kg/m2 Dr. Robel Onofre Work Phone: [facility] Work Phone: 06-13-2022 19:28-0400 Body temperature 99.1 [degF] Dr. Robel Onofre Work Phone: [facility] Work Phone: 06-13-2022 19:28-0400 Diastolic blood pressure 70 mm[Hg] Dr. Robel Onofre Work Phone: [facility] Work Phone: 06-13-2022 19:28-0400 Heart rate 80 /min Dr. Robel Onofre Work Phone: [facility] Work Phone: 06-13-2022 19:28-0400 Respiratory rate 20 /min Dr. Robel Onofre Work Phone: [facility] Work Phone: 06-13-2022 19:28-0400 SaO2% (BldA) [Mass fraction] 95 % Dr. Robel Onofre Work Phone: [facility] Work Phone: 06-13-2022 19:28-0400 Systolic blood pressure 152 mm[Hg] Dr. Robel Onofre Work Phone: [facility] Work Phone: 06-13-2022 16:28-0400 Body height 170.[address] Robel Onofre Work Phone: [facility] Work Phone: 06-13-2022 16:28-0400 Body mass index (BMI) [Ratio] 28.3 kg/m2 Dr. Robel Onofre Work Phone: [facility] Work Phone: 06-13-2022 16:28-0400 Body weight 82.[address] Robel Onofre Work Phone: [facility] Work Phone: 06-12-2022 13:30-0400 Diastolic blood pressure 67 mm[Hg] Florencio Tesfaye MD Work Phone: [facility] 10-19-2022 13:30-0400 Heart rate 49 /min Florencio Tesfaye MD Work Phone: [facility] 06-12-2022 13:30-0400 Respiratory rate 13 /min Florencio Tesfaye MD Work Phone: [facility] 06-12-2022 13:30-0400 SaO2% (BldA) [Mass fraction] 99 % Florencio Tesfaye MD Work Phone: [facility] 06-12-2022 13:30-0400 Systolic blood pressure 152 mm[Hg] Florencio Tesfaye MD Work Phone: [facility] 06-12-2022 13:00-0400 Body temperature 97.2 [degF] Florencio Tesfaye MD Work Phone: [facility] 06-03-2022 10:47-0400 Body weight 81.65 kg Robel Onofre DO Work Phone: [facility] 06-03-2022 10:47-0400 Diastolic blood pressure 66 mm[Hg] Robel Onofre DO Work Phone: [facility] 06-03-2022 10:47-0400 Heart rate 60 /min Robel Onofre DO Work Phone: [facility] 06-03-2022 10:47-0400 Respiratory rate 16 /min Robel Onofre DO Work Phone: [facility] 06-03-2022 10:47-0400 Systolic blood pressure 120 mm[Hg] Robel Onofre DO Work Phone: [facility] 05-31-2022 08:47-0400 Body height 170.2 cm Pacc 1 Work Phone: [facility] 05-31-2022 08:47-0400 Body temperature 97.7 [degF] Pacc 1 Work Phone: [facility] 05-31-2022 08:47-0400 Body weight 82.37 kg Pacc 1 Work Phone: [facility] 05-31-2022 08:47-0400 Diastolic blood pressure 58 mm[Hg] Pacc 1 Work Phone: [facility] 05-31-2022 08:47-0400 Heart rate 51 /min Pacc 1 Work Phone: [facility] 05-31-2022 08:47-0400 Respiratory rate 16 /min Pacc 1 Work Phone: [facility] 05-31-2022 08:47-0400 SaO2% (BldA) [Mass fraction] 96 % Pacc 1 Work Phone: [facility] 05-31-2022 08:47-0400 Systolic blood pressure 100 mm[Hg] Pacc 1 Work Phone: [facility] 05-21-2022 15:11-0400 Body temperature 97.59 [degF] Florencio Tesfaye MD Work Phone: [facility] 05-21-2022 15:11-0400 Body weight 82.01 kg Florencio Tesfaye MD Work Phone: [facility] 05-21-2022 15:11-0400 Diastolic blood pressure 63 mm[Hg] Florencio Tesfaye MD Work Phone: [facility] 05-21-2022 15:11-0400 Heart rate 59 /min Florencio Tesfaye MD Work Phone: [facility] 05-21-2022 15:11-0400 SaO2% (BldA) [Mass fraction] 96 % Florencio Tesfaye MD Work Phone: [facility] 05-21-2022 15:11-0400 Systolic blood pressure 133 mm[Hg] Florencio Tesfaye MD Work Phone: [facility] 01-11-2022 08:03-0400 Body height 170.2 cm Florencio Tesfaye MD Work Phone: [facility] 01-11-2022 08:03-0400 Body temperature 98.1 [degF] Florencio Tesfaye MD Work Phone: [facility] 01-11-2022 08:03-0400 Body weight 83.28 kg Florencio Tesfaye MD Work Phone: [facility] 01-11-2022 08:03-0400 Diastolic blood pressure 58 mm[Hg] Florencio Tesfaye MD Work Phone: [facility] 01-11-2022 08:03-0400 Heart rate 85 /min Florencio Tesfaye MD Work Phone: [facility] 01-11-2022 08:03-0400 SaO2% (BldA) [Mass fraction] 99 % Florencio Tesfaye MD Work Phone: [facility] 01-11-2022 08:03-0400 Systolic blood pressure 118 mm[Hg] Florencio Tesfaye MD Work Phone: [facility] 12-26-2021 14:59-0400 Body weight 85.73 kg Bessie Cristóbal MANAGER [employer].PMO CONSULTANT Work Phone: [facility] 12-26-2021 14:59-0400 Diastolic blood pressure 76 mm[Hg] Bessie Cristóbal MANAGER [employer].PMO CONSULTANT Work Phone: [facility] 12-26-2021 14:59-0400 Heart rate 56 /min Bessie Cristóbal MANAGER [employer].PMO CONSULTANT Work Phone: [facility] 12-26-2021 14:59-0400 SaO2% (BldA) [Mass fraction] 97 % Bessie Cristóbal MANAGER [employer].PMO CONSULTANT Work Phone: [facility] 12-26-2021 14:59-0400 Systolic blood pressure 120 mm[Hg] Bessie Cristóbal MANAGER OF [employer]IR[employer] SALES.PMO CONSULTANT Work Phone: [facility] 12-12-2021 10:04-0400 Body temperature 96.8 [degF] Robel Onofre DO Work Phone: [facility] 12-12-2021 10:04-0400 Body weight 83.92 kg Robel Onofre DO Work Phone: [facility] 12-12-2021 10:04-0400 Diastolic blood pressure 70 mm[Hg] Robel Onofre DO Work Phone: [facility] 12-12-2021 10:04-0400 Heart rate 56 /min Robel Onofre DO Work Phone: [facility] 12-12-2021 10:04-0400 Respiratory rate 16 /min Robel Onofre DO Work Phone: [facility] 12-12-2021 10:04-0400 Systolic blood pressure 100 mm[Hg] Robel Onofre DO Work Phone: [facility] 10-15-2021 08:32-0500 Body height 170.[address] Robel Onofre Work Phone: [facility] Work Phone: 10-15-2021 08:32-0500 Body mass index (BMI) [Ratio] 29.1 kg/m2 Dr. Robel Onofre Work Phone: [facility] Work Phone: 10-15-2021 08:32-0500 Body weight 84.[address] Robel Onofre Work Phone: [facility] Work Phone: 10-15-2021 08:32-0500 Diastolic blood pressure 70 mm[Hg] Dr. Robel Onofre Work Phone: [facility] Work Phone: 10-15-2021 08:32-0500 Heart rate 54 /min Dr. Robel Onofre Work Phone: [facility] Work Phone: 10-15-2021 08:32-0500 Respiratory rate 20 /min Dr. Robel Onofre Work Phone: [facility] Work Phone: 10-15-2021 08:32-0500 SaO2% (BldA) [Mass fraction] 96 % Dr. Robel Onofre Work Phone: [facility] Work Phone: 10-15-2021 08:32-0500 Systolic blood pressure 122 mm[Hg] Dr. Robel Onofre Work Phone: [facility] Work Phone: 02-03-2017 08:40-0400 BMI (Body Mass Index) 28.03 kg/m2 [facility] Work Phone: 02-03-2017 08:40-0400 BP Diastolic 68 mm[Hg] [facility] Work Phone: 02-03-2017 08:40-0400 BP Systolic 118 mm[Hg] [facility] Work Phone: 02-03-2017 08:40-0400 Height 170.18 cm [facility] Work Phone: 02-03-2017 08:40-0400 Pulse (Heart Rate) 58 /min [facility] Work Phone: 02-03-2017 08:40-0400 Respiratory Rate 18 /min [facility] Work Phone: 02-03-2017 08:40-0400 Weight 81.19 kg [facility] Work [...] [facility] Work Phone: NEGATED: Highlighted [id number] 11:20-0400 BMI (Body Mass Index) 27.35 kg/m2 [facility] Work Phone: NEGATED: Highlighted [id number] 11:20-0400 BP Diastolic 77 mm[Hg] [facility] Work Phone: NEGATED: Highlighted [id number] 11:20-0400 BP Systolic 127 mm[Hg] [facility] Work Phone: NEGATED: Highlighted [id number] 11:20-0400 Height 170.18 cm [facility] Work Phone: NEGATED: Highlighted [id number] 11:20-0400 Height 170 cm [facility] Work Phone: NEGATED: Highlighted [id number] 11:20-0400 Pulse (Heart Rate) 57 /min [facility] Work Phone: NEGATED: Highlighted [id number] 11:20-0400 Weight 78.93 kg [facility] Work Phone: NEGATED: Poonam [id number] 11:0 Weight 79 kg [facility] Work Phone: Encounters Encounter Date Encounter Type Care Provider Facility Start: 07-01-2025 ambulatory Robel Onofre Facilit y:[facility] Start: 06-27-2025 End: 06-27-2025 ambulatory ROBEL ONOFRE Facility:[facility] Start: 06-24-2025 End: 06-24-2025 ambulatory ROBEL ONOFRE Facility:[facility] Start: 06-24-2025 End: 06-24-2025 ambulatory ROBEL ONOFRE Facility:[facility] Start: 03-22-2025 End: 03-22-[address] Jamal Dawson MD [facility] Work Phone: Start: 03-22-2025 End: 03-22-[address] Robel Onofre DO Work Phone: [facility] Start: 03-17-2025 End: 03-17-2025 Refill Robel Onofre DO Work Phone: [facility] [place] Comment on above: Refill Request Start: 02-10-2025 End: 02-11-2025 Refill Cat Foote APRN.PMO CONSULTANT Work Phone: [facility] [place] Comment on above: Refill Request Start: 01-18-2025 End: 01-18-2025 ambulatory Citlaly Payton MA [facility] Start: 01-18-2025 End: 01-18-2025 Patient encounter procedure Citlaly Payton MA [facility] Comment on above: Population Health Na vigation Outreach ([place]/Workbench/ACO ) Start: 12-27-2024 End: 12-27-2024 Patient encounter procedure Robel Onofre DO Work Phone: [facility] [place] Comment on above: Gastroesophageal ref 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 hemorrhage (Primary Dx); Vitamin D deficiency; Other depression; Vitamin B12 deficiency; Thrombocytopenia; Familial hypercholesterolemia; Macular degeneration of both eyes, unspecified type; BPH associated with nocturia; Actinic keratosis; BPPV (benign paroxysmal positional vertigo), unspecified laterality Start: 12-27-2024 End: 12-27-2024 ambulatory ROBEL ONOFRE Facility:[facility] Start: 12-20-2024 End: 12-21-2024 Telephone encounter [...] Office outpatient visit 25 minutes Asha Hernandez APRN.PMO CONSULTANT Work Phone: [facility] [place] Comment on above: Vertigo (Primary Dx) ; Nausea and vomiting, unspecified vomiting type; Gait disturbance Start: 12-14-2024 End: 12-14-2024 ambulatory ASHA HERNANDEZ Facility:[facility] Start: 12-09-2024 End: 12-09-2024 Refill Robel Hernandezon DO Work Phone: [address] [place] [address] Comment on above: Refill Request Start: 11-22-2024 End: 11-24-2024 Refill Robel Tobinrison DO Work Phone: [facility] [place] Comment on above: Refill Request Start: 11-08-2024 End: 11-08-2024 Refill Robel Bowman Onofre DO Work Phone: [address] [place] [address] Comment on above: Refill Request Start: 10-08-2024 End: 10-12-2024 Refill Robel Tobinrison DO Work Phone: [facility] [place] Comment on above: Refill Request Letter (Blindness co nfirmation for taxes) Start: 08-30-2024 End: 11-30-2024 Telephone encounter Robel Onofre DO Work Phone: [facility] [place] Start: 08-11-2024 End: 08-11-2024 Refill Robel Onofre DO Work Phone: [facility] [place] Comment on above: Refill Request Start: 07-01-2024 End: 07-01-2024 Telephone encounter Robel Onofre DO Work Phone: [facility] [place] Start: 06-30-2024 End: 06-30-2024 ambulatory ROBEL ONOFRE Facility:[facility] Start: 06-30-2024 End: 06-30-2024 Patient encounter procedure Robel Onofre DO Work Phone: [facility] Comment on above: Hypertension, essent ial (Primary Dx); Need for influenza vaccination; Vitamin D deficiency; Vitamin B12 deficiency; Thrombocytopenia (HCC); Macular degeneration of both eyes, unspecified type; Familial hypercholesterolemia; BPH associated with nocturia; Borderline abnormal thyroid function test; Hyperglycemia; Other depression Start: 06-30-2024 End: 06-30-2024 ambulatory ROBEL ONOFRE Facility:[facility] Start: 05-04-2024 End: 05-04-2024 Refill Robel Onofre DO Work Phone: [facility] Comment on above: Refill Request Start: 03-10-2024 End: 03-10-2024 Office outpatient visit 15 minutes Bessie Ambrocio APRN.PMO CONSULTANT Work Phone: [facility] [place] Comment on above: Feelings of worthles sness (Primary Dx); Stress; Lack of motivation; Other depression Start: 02-04-2024 End: 02-04-2024 Patient encounter procedure Bessie Ambrocio APRN.CNP Work Phone: [facility] [place] Comment on above: Feelings of worthles sness (Primary Dx); Stress; Lack of motivation; Other depression; Macular degeneration of both eyes, unspecified type; Bilateral hearing loss, unspecified hearing loss type Start: 01-26-2024 Telephone encounter Robel villanueva DO Work Phone: [facility] [place] Comment on above: Depression Start: 01-16-2024 Telephone encounter Robel villanueva DO Work Phone: [facility] [place] Comment on above: Results Start: 01-01-2024 Telephone encounter Robel villanueva DO Work Phone: [facility] [place] Start: 12-22-2023 End: 12-22-2023 Patient encounter procedure Robel Onofre DO Work Phone: [facility] [place] Comment on above: Hypertension, essent ial [...] 11-25-2023 Refill Robel terrazas DO Work Phone: [facility] [place] Comment on above: Refill Request Start: 11-24-2023 Refill Robel terrazas DO Work Phone: [facility] [place] Comment on above: Refill Request; erro r Start: 11-12-2023 Refill Robel terrazas DO Work Phone: [facility] [place] Comment on above: Refill Request Start: 10-14-2023 Refill Robel terrazas DO Work Phone: [facility] [place] Comment on above: Refill Request Start: 07-31-2023 Refill Robel terrazas DO Work Phone: [facility] [place] Comment on above: Refill Request Start: 07-25-2023 Refill Robel terrazas DO Work Phone: [facility] [place] Comment on above: Refill Request Orders [...] 03-31-2023 Refill Robel terrazas DO Work Phone: [facility] Comment on above: Refill Request Start: 02-12-2023 Refill Robel terrazas DO Work Phone: [address] [place] [address] Comment on above: Refill Request Start: 01-30-2023 Telephone encounter Robel Gracie villanueva DO Work Phone: [facility] Comment on above: Handicap Placard Start: 12-23-2022 Telephone encounter Robel Bowman Jess villanueva DO Work Phone: [facility] Comment on above: Results Start: 12-06-2022 End: 12-06-2022 Patient encounter procedure Robel Onofre DO Work Phone: [facility] Comment on above: Vitamin D deficiency (Primary Dx); Vitamin B12 deficiency; Hypertension, essential; Familial hypercholesterolemia; BPH associated with nocturia; Screening for prostate cancer; Iron deficiency anemia, unspecified iron deficiency anemia type Start: 11-18-2022 Refill Bessie kenney APRN.PMO CONSULTANT Work Phone: [facility] Comment on above: Refill Request Start: 10-17-2022 Refill Robel terrazas DO Work Phone: [facility] Comment on above: Refill Request Start: 10-07-2022 Refill Robel terrazas DO Work Phone: [facility] Comment on above: Refill Request Start: 09-10-2022 Refill Robel terrazas DO Work Phone: [facility] Comment on above: Refill Request Start: 07-24-2022 Refill Robel terrazas DO Work Phone: [facility] Comment on above: Refill Request Start: 07-04-2022 Telephone encounter Bessie Camargo MANAGER OF [employer] SALES.PMO CONSULTANT Work Phone: [facility] Comment on above: Results Start: 07-03-2022 End: 07-03-2022 Patient encounter procedure Bessie Ambrocio MANAGER OF [employer] SALES.PMO CONSULTANT Work Phone: [facility] Comment on above: Hypertension, essent ial (Primary Dx); Maegan-Feldman tear Start: 06-26-2022 Telephone encounter Robel villanueva DO Work Phone: [facility] Comment on above: Patient Update Start: 06-21-2022 Telephone encounter Robel villanueva DO Work Phone: [facility] Comment on above: Patient Update Start: 06-17-2022 ambulatory Robel terrazas DO Work Phone: [facility] Start: 06-17-2022 Telephone encounter Robel villanueva DO Work Phone: [facility] Comment on above: Orders Start: 06-14-2022 Non-patient / Non-visit Dr. Roxana Onofre Work Phone: [facility] Start: 06-14-2022 Non-patient / Non-visit Dr. Roxana Onofre Work Phone: [facility] Start: 06-13-2022 End: 06-15-2022 Evaluation and management of inpatient Dr. Robel Onofre Work Phone: [facility] Start: 06-13-[address] Abram Onofre Work Phone: [facility] Work Phone: Start: 06-13-2022 Non-patient / Non-visit Dr. Roxana Onofre Work Phone: [facility] Start: 06-13-2022 Telephone encounter Florencio cummings MD Work Phone: General Surgery Comment on above: Patient Update Start: 06-12-2022 ambulatory FLORENCIO TESFAYE Facili ty:[facility] Start: 06-12-2022 End: 06-12-2022 Subsequent hospital visit by physician Florencio Tesfaye MD Work Phone: [facility] Surgery Comment on above: Right inguinal herni a [K40.90] Start: 06-07-2022 Telephone encounter Luiza Rivers APRN.CNP Work Phone: Pre Anesthesia Comment on above: Patient Update Start: 06-03-2022 End: 06-03-2022 Patient encounter procedure Robel Onofre Work Phone: [facility] Comment on above: Hypertension, essent ial [...] [facility] Work Phone: [facility] [place] Start: 05-31-2022 End: 05-31-2022 ambulatory [facility] 1 Work Phone: Pre Anesthesia Comment on above: Pre-operative examin ation (Primary Dx); Coronary artery disease due to lipid rich plaque; Hypertension, essential; Abdominal aortic aneurysm (AAA), unspecified part, unspecified whether ruptured; Thrombocytopenia (HCC); Familial hypercholesterolemia; Acute renal insufficiency; BPH associated with nocturia; Gastroesophageal ref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 hemorrhage Start: 05-31-2022 End: 05-31-2022 Preprocedural examination done [facility] [place] 1 Work Phone: Pre Anesthesia Start: 05-21-2022 End: 05-21-2022 Patient encounter procedure Florencio Tesfaye MD Work Phone: General Surgery Comment on above: Right inguinal herni a (Primary Dx) Start: 04-08-2022 Refill Robel Griems son DO Work Phone: [facility] [place] Comment on above: Refill Request Start: 02-18-2022 Refill Robel Grimes son DO Work Phone: [facility] Comment on above: Refill Request Start: 02-01-2022 Telephone encounter Bessie Camargo MANAGER OF [employer] SALES.PMO CONSULTANT Work Phone: [facility] Comment on above: Results Start: 01-31-2022 Telephone encounter Robel villanueva DO Work Phone: [facility] Comment on above: Patient Update; Appo intment Start: 01-11-2022 End: 01-11-2022 Patient encounter procedure Florencio Tesfaye MD Work Phone: General Surgery Comment on above: Bilateral inguinal h ernia without obstruction or gangrene, recurrence not specified Start: 01-02-2022 Telephone encounter Robel villanueva DO Work Phone: [facility] Comment on above: Results; Appointment Start: 01-01-2022 End: 01-01-[address] Robel Onofre Work Phone: [facility] Start: 12-27-2021 Telephone encounter Besise Camargo MANAGER OF [employer] SALES.PMO CONSULTANT Work Phone: [facility] Comment on above: Faxed orders Change Of Order ([facility] radiology dept.) Start: 12-26-2021 End: 12-26-2021 Patient encounter procedure Bessie Cristóbal MANAGER OF [employer] SALES.PMO CONSULTANT Work Phone: [facility] Comment on above: Right inguinal pain (Primary Dx); Inguinal bulge Start: 12-26-2021 Telephone encounter Robel villanueva DO Work Phone: [facility] [place] Comment on above: Right [...] encounter procedure Dr. Robel Onofre Work Phone: [facility] Start: 06-20-2021 End: 06-20-2021 Subsequent hospital visit [...] encounter procedure Mandeep Bernstein DO Work Phone: [facility] Work Phone: [...] 11-11-2011 End: 11-21-2011 *Hepatic Function Panel Reinaldo Diza MD Start: 11-11-2011 End: 11-11-2011 Follow Up [...] Author Start: 06-30-2027 Diabetes Screening Diabetes Screening [facility] Start: 01-13-2027 Diabetes Screening Diabetes Screening [facility] Start: 12-21-2026 Diabetes Screening Diabetes Screening [facility] Start: 12-06-2025 DIABETES SCREEN DIABETES SCREEN [facility] Start: 12-06-2025 Diabetes Screening Diabetes Screening [facility] Start: 07-03-2025 DIABETES SCREEN DIABETES SCREEN [facility] Start: 06-30-2025 Hepatitis B surface antibody level LDL Cholesterol [facility] Start: 06-24-2025 End: 06-24-2025 Patient encounter procedure 06/24/2025 10:00 AM EDT Office Visit [facility] [place] [address] [place], [place] [address] Robel Onofre DO [address] [place], [place] [id number] Medicare Wellness [facility] [place] Comment on above: Medicare Wellness Start: 05-31-2025 DIABETES SCREEN DIABETES SCREEN [facility] Start: 04-25-2025 Influenza [facility] Start: 01-31-2025 DIABETES SCREEN DIABETES SCREEN [facility] Start: 01-13-2025 Hepatitis B surface antibody level LDL Cholesterol [facility] Start: 12-27-2024 End: 12-27-2024 Patient encounter procedure 12/27/2024 10:40 AM EDT Office Visit [facility] [place] [address] [place], [place] [id number] Robel Onofre DO [address] [facility] [address] follow up [facility] [place] Comment on above: follow up Start: 12-14-2024 [facility] Start: 08-25-2024 Advance Directive Discussion Advance Directive Discussion [facility] Start: 08-25-2024 Medicare Advantage Annual Wellness Visit Medicare Advantage Annual Wellness Visit [facility] Start: 06-30-2024 End: 09-29-2024 25-hydroxyvitamin D3 [Mass/volume] in Serum or Plasma [facility] Comment on above: Expected: 06/30/2024, Expires: Start: 06-30-2024 End: 09-29-2024 CBC W Auto Differential panel - Blood [facility] Comment on above: Expected: 06/30/2024, Expires: Start: 06-30-2024 End: 09-29-2024 Cobalamin (Vitamin B12) [Mass/volume] in Serum or Plasma [facility] Comment on above: Expected: 06/30/2024, Expires: Start: 06-30-2024 End: 09-29-2024 Comprehensive metabolic 2000 panel - Serum or Plasma [facility] Work Phone: Comment on above: Expected: 06/30/2024, Expires: Start: 06-30-2024 End: 09-29-2024 Hemoglobin A1c in Blood [facility] Comment on above: Expected: 06/30/2024, Expires: Start: 06-30-2024 End: 09-29-2024 LIPID PANEL, NONFASTING [facility] Comment on above: Expected: 06/30/2024, Expires: Start: 06-30-2024 End: 09-29-2024 Magnesium [Mass/volume] in Serum or Plasma [facility] Comment on above: Expected: 06/30/2024, Expires: Start: 06-30-2024 End: 09-29-2024 Thyrotropin [Units/volume] in Serum or Plasma [facility] Comment on above: Expected: 06/30/2024, Expires: Start: 06-30-2024 End: 09-29-2024 Urinalysis complete panel - Urine [facility] Comment on above: Expected: 06/30/2024, Expires: Start: 06-30-2024 End: 06-30-2024 Patient encounter procedure 06/30/2024 10:40 AM EST Office Visit [facility] [place] [address] [place] [place] [address] Robel Onofre DO [address] [facility] [place] [address] 6 month follow up [facility] [place] Comment on above: 6 month follow up Start: 05-29-2024 DIABETES SCREEN DIABETES SCREEN [facility] Start: 04-25-2024 Covid-19 Vaccine ( season) Covid-19 Vaccine () [facility] Start: 04-25-2024 Covid-19 Vaccine ( season) Covid-19 Vaccine ( season) [facility] Start: 04-25-2024 Influenza vaccination Influenza Vaccine (#1) [facility] Start: 03-10-2024 End: 03-10-2024 Patient encounter procedure 03/10/2024 12:20 PM EDT Office Visit [facility] [place] [address] [facility] [place] [address] Bessie Ambrocio, MANAGER OF [employer]IR[employer] SALES.PMO CONSULTANT [address] [facility] [place] [address] 4-6 weeks follow up [facility] [place] Comment on above: 4-6 weeks follow up Start: 02-04-2024 End: 02-04-2024 Patient encounter procedure 02/04/2024 12:40 PM EDT Office Visit [facility] [place] [address] [place] [place] [address] Bessie Ambrocio, MANAGER OF [employer] SALES.PMO CONSULTANT [address] [facility] [place], [place] [address] depression [facility] [place] Comment on above: depression Start: 01-01-2024 End: 04-01-2024 ALK PHOS ISOENZYM BL ALK PHOS ISOENZYM BL Lab Routine Elevated alkaline phosphatase level Expected: 01/01/2024, Expires: 04/01/2024 [facility] Comment on above: Expected: 01/01/2024, Expires: Start: 01-01-2024 End: 04-01-2024 CBC W Auto Differential panel - Blood COMPLETE BLOOD COUNT AND DIFFERENTIAL Lab Routine Thrombocytopenia (HCC) Expected: 01/01/2024, Expires: 04/01/2024 [facility] Work Phone: Comment on above: Expected: 01/01/2024, Expires: Start: 01-01-2024 End: 04-01-2024 Comprehensive metabolic 2000 panel - Serum or Plasma COMPREHENSIVE METABOLIC PANEL Lab Routine Elevated serum creatinine Expected: 01/01/2024, Expires: 04/01/2024 [facility] Comment on above: Expected: 01/01/2024, Expires: Start: 12-22-2023 End: 03-22-2024 Cobalamin (Vitamin B12) [Mass/volume] in Serum or Plasma [facility] Comment on above: Expected: 12/22/2023, Expires: Start: 12-22-2023 End: 03-22-2024 Comprehensive metabolic 2000 panel - Serum or Plasma [facility] Work Phone: Comment on above: Expected: 12/22/2023, Expires: Start: 12-22-2023 End: 03-22-2024 Iron and Iron binding capacity panel - Serum or Plasma IRON AND TIBC Lab Routine Iron deficiency anemia, unspecified iron deficiency anemia type Expected: 12/22/2023, Expires: 03/22/2024 [facility] Comment on above: Expected: 12/22/2023, Expires: Start: 12-22-2023 End: 03-22-2024 LIPID PANEL, NONFASTING LIPID PANEL, NONFASTING Lab Routine Familial hypercholesterolemia Expected: 12/22/2023, Expires: 03/22/2024 [facility] Comment on above: Expected: 12/22/2023, Expires: Start: 12-22-2023 End: 03-22-2024 Thyrotropin [Units/volume] in Serum or Plasma [facility] Comment on above: Expected: 12/22/2023, Expires: Start: 12-22-2023 End: 03-22-2024 Thyroxine (T4) free [Mass/volume] in Serum or Plasma [facility] Comment on above: Expected: 12/22/2023, Expires: Start: 12-14-2023 End: 03-14-2024 25-hydroxyvitamin D3 [Mass/volume] in Serum or Plasma VITAMIN D 25 HYDROXY Lab Routine Vitamin D deficiency Expected: 12/14/2023, Expires: 03/14/2024 [facility] Work Phone: Comment on above: Expected: 12/14/2023, Expires: Start: 12-14-2023 End: 03-14-2024 CBC panel - Blood by Automated count CBC Lab Routine Familial hypercholesterolemia Iron deficiency anemia, unspecified iron deficiency anemia type Expected: 12/14/2023, Expires: 03/14/2024 [facility] Work Phone: Comment on above: Expected: 12/14/2023, Expires: Start: 12-14-2023 End: 03-14-2024 Cobalamin (Vitamin B12) [Mass/volume] in Serum or Plasma VITAMIN B12 BLOOD Lab Routine Vitamin B12 deficiency Expected: 12/14/2023, Expires: 03/14/2024 [facility] Work Phone: Comment on above: Expected: 12/14/2023, Expires: Start: 12-14-2023 End: 03-14-2024 Comprehensive metabolic 2000 panel - Serum or Plasma COMP METABOLIC PANEL Lab Routine Familial hypercholesterolemia Expected: 12/14/2023, Expires: 03/14/2024 [facility] Work Phone: Comment on above: Expected: 12/14/2023, Expires: Start: 12-14-2023 End: 03-14-2024 Ferritin [Mass/volume] in Serum or Plasma FERRITIN BLD Lab Routine Iron deficiency anemia, unspecified iron deficiency anemia type Expected: 12/14/2023, Expires: 03/14/2024 [facility] Work Phone: Comment on above: Expected: 12/14/2023, Expires: Start: 12-14-2023 End: 03-14-2024 Hemoglobin A1c in Blood HGB A1C Lab Routine Hyperglycemia Expected: 12/14/2023, Expires: 03/14/2024 [facility] Work Phone: Comment on above: Expected: 12/14/2023, Expires: Start: 12-14-2023 End: 03-14-2024 Iron and Iron binding capacity panel - Serum or Plasma IRON + TIBC Lab Routine Iron deficiency anemia, unspecified iron deficiency anemia type Expected: 12/14/2023, Expires: 03/14/2024 [facility] Work Phone: Comment on above: Expected: 12/14/2023, Expires: 4 Start: 12-14-2023 End: 03-14-2024 Lipid 1996 panel - Serum or Plasma LIPID PANEL BASIC Lab Routine Familial hypercholesterolemia Expected: 12/14/2023, Expires: 03/14/2024 [facility] Work Phone: Comment on above: Expected: 12/14/2023, Expires: 4 Start: 12-14-2023 End: 03-14-2024 PSA/PROSTSPECAG SCRN PSA/PROSTSPECAG SCRN Lab Routine BPH associated with nocturia Screening for prostate cancer Expected: 12/14/2023, Expires: 03/14/2024 [facility] Work Phone: Comment on above: Expected: 12/14/2023, Expires: 4 Start: 08-25-2023 Advance Directive Discussion Advance Directive Discussion [facility] Start: 04-25-2023 Covid-19 Vaccine () Covid-19 Vaccine () [facility] Start: 04-25-2023 Influenza vaccination [facility] Start: 12-03-2022 End: 02-02-2023 25-hydroxyvitamin D3 [Mass/volume] in Serum or Plasma VITAMIN D 25 HYDROXY Lab Routine Vitamin D deficiency Expected: 12/03/2022, Expires: 02/02/2023 [facility] Work Phone: Comment on above: Expected: 12/03/2022, Expires: 3 Start: 12-03-2022 End: 02-02-2023 CBC panel - Blood by Automated count CBC Lab Routine Familial hypercholesterolemia Expected: 12/03/2022, Expires: 02/02/2023 [facility] Work Phone: Comment on above: Expected: 12/03/2022, Expires: 3 Start: 12-03-2022 End: 02-02-2023 Cobalamin (Vitamin B12) [Mass/volume] in Serum or Plasma VITAMIN B12 BLOOD Lab Routine Vitamin B12 deficiency Expected: 12/03/2022, Expires: 02/02/2023 [facility] Work Phone: Comment on above: Expected: 12/03/2022, Expires: 3 Start: 12-03-2022 End: 02-02-2023 Comprehensive metabolic 2000 panel - Serum or Plasma COMP METABOLIC PANEL Lab Routine Familial hypercholesterolemia Expected: 12/03/2022, Expires: 02/02/2023 [facility] Work Phone: Comment on above: Expected: 12/03/2022, Expires: 3 Start: 12-03-2022 End: 02-02-2023 Lipid 1996 panel - Serum or Plasma LIPID PANEL BASIC Lab Routine Familial hypercholesterolemia Expected: 12/03/2022, Expires: 02/02/2023 [facility] Work Phone: Comment on above: Expected: 12/03/2022, Expires: 3 Start: 12-03-2022 End: 02-02-2023 PSA/PROSTSPECAG SCRN PSA/PROSTSPECAG SCRN Lab Routine BPH associated with nocturia Screening for prostate cancer Expected: 12/03/2022, Expires: 02/02/2023 [facility] Work Phone: Comment on above: Expected: 12/03/2022, Expires: 3 Start: 12-03-2022 End: 02-02-2023 Thyrotropin [Units/volume] in Serum or Plasma TSH BLD Lab Routine Elevated serum creatinine Fatigue, unspecified type Familial hypercholesterolemia BPH associated with nocturia Expected: 12/03/2022, Expires: 02/02/2023 [facility] Work Phone: Comment on above: Expected: 12/03/2022, Expires: 3 Start: 08-25-2022 ADVANCE DIRECTIVE DISCUSSION ADVANCE DIRECTIVE DISCUSSION [facility] Start: 06-15-2022 Patient discharge [facility] Work Phone: Start: 06-14-2022 Catheterization of vein [facility] Work Phone: Start: 06-13-2022 Application of intermittent pneumatic compression device [facility] Work Phone: Start: 06-13-2022 Ambulation without limitation [facility] Work Phone: Start: 06-13-2022 Assessment of risk of venous thromboembolism [facility] Work Phone: Start: 06-13-2022 Documentation procedure [facility] Work Phone: Start: 06-13-2022 Incentive spirometry [facility] Work Phone: Start: 06-13-2022 Insertion of catheter into peripheral vein [facility] Work Phone: Start: 06-13-2022 Measuring intake and output [facility] Work Phone: Start: 06-13-2022 Oxygen therapy [facility] Work Phone: Start: 06-13-2022 Providing care according to standard [facility] Work Phone: Start: 06-13-2022 Referral to gastroenterology service [facility] Work Phone: Start: 06-13-2022 Referral to occupational therapist [facility] Work Phone: Start: 06-13-2022 Referral to service [facility] Work Phone: Start: 06-13-2022 [facility] Work Phone: Start: 06-13-2022 Following clinical pathway protocol [facility] Work Phone: Start: 06-13-2022 Admission procedure [facility] Work Phone: Start: 05-29-2022 Hepatitis B surface antibody level LDL CHOLESTEROL [facility] Start: 04-25-2022 Influenza vaccination INFLUENZA (#1) [facility] Start: 02-15-2022 End: 04-17-2022 Renal function 2000 panel - Serum or Plasma RENAL FUNCTION PANEL Lab Routine Elevated serum creatinine Expected: 02/15/2022, Expires: 04/17/2022 [facility] Work Phone: Comment on above: Expected: 02/15/2022, Expires: 2 Start: 12-27-2021 End: 02-26-2022 CREATININE BLD CREATININE BLD Lab Routine Right groin pain Expected: 12/27/2021, Expires: 02/26/2022 [facility] Work Phone: Comment on above: Expected: 12/27/2021, Expires: 2 Start: 08-25-2021 ADVANCE DIRECTIVE DISCUSSION ADVANCE DIRECTIVE DISCUSSION [facility] Start: 06-06-2021 PNEUMOCOCCAL: 65+ (2 - PCV) PNEUMOCOCCAL: 65+ (2 - PCV) [facility] Start: 05-09-2021 COVID-19 Vaccine (3 - Pfizer booster) COVID-19 Vaccine (3 - Pfizer booster) [facility] Work Phone: Start: 03-08-2021 COVID-19 VACCINE (4 - Booster for Pfizer series) COVID-19 VACCINE (4 - Booster for Pfizer series) [facility] Start: 01-01-2021 COVID-19 VACCINE (4 - Booster for Pfizer series) COVID-19 VACCINE (4 - Booster for Pfizer series) [facility] Start: 01-01-2021 COVID-19 VACCINE (5 - Booster) COVID-19 VACCINE (5 - Booster) [facility] Start: 01-01-2021 COVID-19 VACCINE (6 - Booster) COVID-19 VACCINE (6 - Booster) [facility] Start: 01-01-2021 COVID-19 VACCINE (6 - Pfizer series) COVID-19 VACCINE (6 - Pfizer series) [facility] Start: 04-25-2020 Influenza vaccination Flu vaccine (#1) [place], [place] Start: 02-14-2019 Annual Wellness Visit (AWV) Annual Wellness Visit (AWV) [place] Start: 05-12-2018 End: 05-12-2018 Radex spine lumbosacral minimum 4 views XR LUMBAR 4VWS FLEX/EX [facility] Work Phone: Start: 08-12-2017 End: 08-12-2017 Appointment Appointment [facility] Work Phone: Start: 08-01-2017 End: 08-13-2017 *Hepatic Function Panel *Hepatic Function Panel [facility] Work Phone: Start: 08-01-2017 End: 08-13-2017 Lipid panel [AGGREGATE] *Lipid Profile CC PCP [facility] Work Phone: Start: 02-03-2017 End: 02-03-2017 Appointment Appointment [facility] Work Phone: Start: 02-03-2017 End: 02-03-2017 DJN DJN [facility] Work Phone: Start: 02-03-2017 End: 02-03-2017 Follow Up Appt 6 months Follow Up Appt 6 months [facility] Work Phone: Start: 02-03-2017 End: 02-03-2017 Stress Echocardiogram - Dobutamine Stress Echocardiogram - Dobutamine [facility] Work Phone: Start: 12-30-2016 End: 02-01-2017 *Hepatic Function Panel *Hepatic Function Panel [facility] Work Phone: Start: 12-30-2016 End: 02-01-2017 Lipid panel [AGGREGATE] *Lipid Profile CC PCP [facility] Work Phone: Start: 07-30-2016 End: 07-30-2016 DJN DJN [facility] Work Phone: Start: 07-30-2016 End: 07-30-2016 Follow Up Appt 6 months Follow Up Appt 6 months [facility] Work Phone: Start: 07-01-2016 End: 07-01-2016 *Hepatic Function Panel *Hepatic Function Panel [facility] Work Phone: Start: 07-01-2016 End: 07-01-2016 Lipid panel [AGGREGATE] *Lipid Profile CC PCP [facility] Work Phone: Start: 01-02-2016 End: 01-02-2016 MIRNA MIRNA [facility] Work Phone: Start: 01-02-2016 End: 01-02-2016 DJN DJN [facility] Work Phone: Start: 01-02-2016 End: 01-02-2016 Follow Up Appt 6 months Follow Up Appt 6 months [facility] Work Phone: Start: 01-02-2016 End: 01-02-2016 Stress Echocardiogram - Dobutamine Stress Echocardiogram - Dobutamine [facility] Work Phone: Start: 11-28-2015 End: 12-28-2015 *Hepatic Function Panel *Hepatic Function Panel [facility] Work Phone: Start: 11-28-2015 End: 12-28-2015 Lipid panel [AGGREGATE] *Lipid Profile CC PCP [facility] Work Phone: Start: 07-03-2015 End: 07-03-2015 DJN DJN [facility] Work Phone: Start: 07-03-2015 End: 07-03-2015 Follow Up Appt 6 months Follow Up Appt 6 months [facility] Work Phone: Start: 07-03-2015 End: 07-03-2015 Follow Up BP Check Follow Up BP Check [facility] Work Phone: Start: 05-29-2015 End: 05-29-2015 *Hepatic Function Panel *Hepatic Function Panel [facility] Work Phone: Start: 05-29-2015 End: 05-29-2015 Lipid panel [AGGREGATE] *Lipid Profile CC PCP [facility] Work Phone: Start: 12-13-2014 End: 12-13-2014 *Hepatic Function Panel *Hepatic Function Panel [facility] Work Phone: Start: 12-13-2014 End: 12-13-2014 Lipid panel [AGGREGATE] *Lipid Profile CC PCP [facility] Work Phone: Start: 05-31-2014 End: 06-14-2014 *Hepatic Function Panel *Hepatic Function Panel [facility] Work Phone: Start: 05-31-2014 End: 05-31-2014 KATTY ALANIZ [facility] Work Phone: Start: 05-31-2014 End: 05-31-2014 Follow Up Appt 1 year Follow Up Appt 1 year [facility] Work Phone: Start: 05-31-2014 End: 06-14-2014 Lipid panel [AGGREGATE] *Lipid Profile CC PCP [facility] Work Phone: Start: 05-31-2014 End: 06-30-2014 Stress Echocardiogram - Dobutamine Stress Echocardiogram - Dobutamine [facility] Work Phone: Start: 2014 RSV Vaccine (1 - 1-dose 75+ series) RSV Vaccine (1 - 1-dose 75+ series) [facility] Start: 05-24-2013 End: 05-18-2014 KATTY ALANIZ [facility] Work Phone: Start: 05-24-2013 End: 05-24-2013 Echocardiography Echocardiogram (complete) [facility] Work Phone: Start: 05-24-2013 End: 05-18-2014 Follow Up Appt 1 year Follow Up Appt 1 year [facility] Work Phone: Start: 05-24-2013 End: 05-24-2013 Stress Echocardiogram - Dobutamine Stress Echocardiogram - Dobutamine [facility] Work Phone: Start: 05-19-2013 End: 05-31-2014 *Hepatic Function Panel *Hepatic Function Panel [facility] Work Phone: Start: 05-19-2013 End: 05-31-2014 Lipid panel [AGGREGATE] *Lipid Profile [facility] Work Phone: Start: 11-25-2012 End: 04-14-2013 *Hepatic Function Panel *Hepatic Function Panel [facility] Work Phone: Start: 11-25-2012 End: 04-14-2013 Lipid panel [AGGREGATE] *Lipid Profile [facility] Work Phone: Start: 11-11-2012 End: 11-11-2012 Follow Up Appt 6 months Follow Up Appt 6 months [facility] Work Phone: Start: 06-02-2012 End: 05-07-2012 *Hepatic Function Panel *Hepatic Function Panel [facility] Work Phone: Start: 06-02-2012 End: 05-07-2012 Lipid panel [AGGREGATE] *Lipid Profile [facility] Work Phone: Start: 05-25-2012 End: 05-25-2012 Electrocardiogram, complete EKG (In office) [facility] Work Phone: Start: 05-25-2012 End: 05-25-2012 Follow Up Appt 6 months Follow Up Appt 6 months [facility] Work Phone: Start: 11-11-2011 End: 11-21-2011 *Hepatic Function Panel *Hepatic Function Panel [facility] Work Phone: Start: 11-11-2011 End: 11-11-2011 Follow Up Appt 6 months Follow Up Appt 6 months [facility] Work Phone: Start: 11-11-2011 End: 11-11-2011 Follow Up Appt Other Follow Up Appt Other [facility] Work Phone: Start: 11-11-2011 End: 11-21-2011 Lipid panel [AGGREGATE] *Lipid Profile [facility] Work Phone: Start: 2004 Pneumococcal 65+ years Vaccine (1 of 1 - PPSV23) Pneumococcal 65+ years Vaccine (1 of 1 - PPSV23) [place], [place] Start: 1999 RSV Vaccine (1 - 1-dose 60+ series) RSV Vaccine (1 - 1-dose 60+ series) [facility] Start: 1989 Shingles Vaccine (1 of 2) Shingles Vaccine (1 of 2) [place], [place] Start: 1989 SHINGRIX VACCINE (1 of 2) SHINGRIX VACCINE (1 of 2) [facility] Start: 1958 DTaP/Tdap/Td vaccine (1 - Tdap) DTaP/Tdap/Td vaccine (1 - Tdap) [place], [place] Start: 1958 Urine microalbumin profile [facility] Start: 1957 Anxiety Screening Anxiety Screening [facility] Start: 1949 Lipid panel Lipid screen [facility] Work Phone: Start: 1939 Creatinine measurement Creatinine monitoring [facility] Work Phone: Start: 1939 Potassium monitoring Potassium monitoring [facility] Work Phone: End: 01-26-2023 Ct abdomen & pelvis w/contrast material CT ABD/PEL W IVCON Radiology Routine Localized enlarged lymph nodes Right groin pain 1 Occurrences starting 12/27/2021 until 01/26/2023 [facility] Work Phone: Comment on above: 1 Occurrences starting 12/27/2021 until 01/26/2023 Hemoglobin.gastroint shannan nal.lower [Presence] in Stool by Immunoassay FECAL OCCULT BLOOD TEST Lab Routine Hypotension, unspecified hypotension type Ordered: 06/17/2022 [facility] Work Phone: Comment on above: Ordered: 06/17/2022 INFLUENZA SEASONAL QUADRIVALENT HIGH DOSE AGE 65+ INFLUENZA SEASONAL QUADRIVALENT HIGH DOSE AGE 65+ Immunization/Injection Routine Encounter for immunization Ordered: 06/03/2022 [facility] Work Phone: Comment on above: Ordered: 06/03/2022 Patient Education [facility] Work Phone: [facility] referral [facility] Work [place]: End: 01-25-2023 Us pelvic nonobstetric image dcmtn limited/f/u US PELVIS LTD Radiology MAYANK Right inguinal pain Inguinal bulge 1 Occurrences starting 12/26/2021 until 01/25/2023 [facility] Work Phone: Comment on above: 1 Occurrences starting 12/26/2021 until 01/25/2023 [facility] Immunizations Immunization Date Immunization Notes Care Provider [facility] 06-30-2024 influenza, high dose seasonal, preservative-free Robel Onofre DO Work Phone: [facility] 06-30-2024 influenza virus vaccine, unspecified formulation Hoonto DO Work Phone: [facility] 06-13-2023 influenza (HD-IIV4) vaccine, age 65+ yr, high dose, quadrivalent, PF (FLUZONE HIGH-DOSE) Hoonto DO Work Phone: [facility] Work Phone: 06-13-2023 influenza virus vaccine, unspecified formulation Hoonto DO Work Phone: [facility] 12-06-2022 pneumococcal (PCV20) vaccine, 20 valent (PREVNAR 20) Hoonto DO Work Phone: [facility] Work Phone: 12-06-2022 pneumococcal Conjuga te, unspecified formulation Hoonto DO Work Phone: [facility] Work Phone: 07-03-2022 influenza, high-dose , quadrivalent vaccine (FLUZONE HIGH DOSE QUADRIVALENT) Bessie Ambrocio APRN.PMO CONSULTANT Work Phone: [facility] 11-06-2020 COVID-19 vaccine, ag e 12+ yr (PFIZER-BIONTECH - PURPLE TOP) Robel Onofre DO Work Phone: [facility] Work Phone: 10-16-2020 COVID-19 vaccine, ag e 12+ yr (PFIZER-BIONTECH - PURPLE TOP) Robel Onofre DO Work Phone: [facility] Work Phone: 06-06-2020 influenza, high-dose , quadrivalent vaccine (FLUZONE HIGH DOSE QUADRIVALENT) Robel Onofre DO Work Phone: [facility] Work Phone: 06-06-2020 pneumococcal polysaccharide vaccine, 23 valent Robel Onofre DO Work Phone: [facility] Work Phone: 03-25-2020 Covid (Pfizer) Dr. Robel Onofre Work Phone: [facility] 02-23-2020 Covid (Pfizer) Dr. Robel Onofre Work Phone: [facility] 08-25-2019 influenza, injectabl e, quadrivalent, preservative free Dr. Robel Onofre DO Work Phone: [facility] 08-25-2019 influenza, seasonal, injectable Dr. Robel Onofre Work Phone: [facility] Work Phone: 07-27-2019 influenza, high dose seasonal, preservative-free Robel Onofre DO Work Phone: [facility] 05-25-[address] Robel Onofre Work Phone: [facility] No information available. Dorota Koenig [facility] [place] [facility] Work Phone: NEGATED: Highlighted row has not occurred!06-04-2022 influenza, high-dose, quadrivalent vaccine (FLUZONE HIGH DOSE QUADRIVALENT) Robel Onofre DO Work Phone: [facility] Work Phone: Payers Date Payer Category Payer Self-pay [id number] 2024 Medicare (Managed Care) MMO [employer] HMO [id number] 2024 Unknown [id number] 2021 Private Health Insurance [employer] [id number] 2021 Unknown [employer] MEDICARE SUPPLEMENT [id number] 2021-Present [phone] [id number] [place] [address] Indemnity [id number] 2021 Unknown [employer] MEDICARE SUPPLEMENT [id number] 2021-Present [phone] [id number] [place] [address] Indemnity [id number] 2021 Medicare [id number] 2016 Private Health Insurance [employer] MEDIC[employer] SUPP MEBLKCHF 2016-Present [phone] [address] [place] [address] ALBLKCHF [id number] 2016 Private Health Insurance [employer]IC[employer] SUPP [id number] 2016-Present [phone] [address] [place] [address] [id number] 2014 Private Health Insurance [id number] 2004 Medicare MEDICARE MEDICAR E A AND B [id number] 2004-Present [phone] [address] [address] [place] [address] Medicare [id number] 2004 Medicare [id number] 2004 Medicare [id number] Unknown [id number] Unknown [id number] Unknown [id number] Unknown [id number] Social History Date Type Detail Facility Start: 02-11-2018 End: 06-13-2022 Assertion Unknown if ever smoked [facility] [place] [facility] Work Phone: Start: 1940 Sex Assigned At Not on file [place], [place] Start: 07-27-2020 End: 12-14-2024 Tobacco smoking status AZIS Former smoker [facility] Work Phone: End: 07-27-1982 History of tobacco use Current smoker [facility] End: 07-27-1982 History of tobacco use Cigarette Smoker [facility] Start: 07-27-2020 End: 06-30-2024 Tobacco use and exposure Never used [facility] Start: 07-27-2020 Alcohol intake Lifetime non-drinker (finding) [facility] Work Phone: Start: 07-27-2020 End: 12-06-2022 History SDOH Alcohol Frequency 1 [facility] Work Phone: Start: 12-12-2021 End: 12-14-2024 Alcohol intake Current non-drinker of alcohol (finding) [facility] Start: 12-04-2020 End: 12-06-2022 History SDOH Social Connections Phone 5 [facility] Start: 12-04-2020 End: 12-06-2022 History SDOH Social Connections Meetings 3 [facility] Start: 12-04-2020 End: 12-06-2022 History SDOH Transport Med 2 [facility] Start: 12-04-2020 Education 12 [facility] Start: 12-02-2021 End: 07-03-2022 Exposure to SARS-CoV-2 (event) Not sure [facility] Work Phone: Start: 10-27-2019 None [facility] Start: 10-27-2019 Cigarettes [facility] Start: 1940 Sex Assigned At Male [facility] Start: 12-06-2022 History SDOH Alcohol Std Drinks 0 [facility] Start: 09-10-2022 End: 12-05-2022 History of Social function [facility] Start: 09-10-2022 End: 12-05-2022 Social connection and isolation panel [facility] Do you belong to any clubs or organizations such as yazdanism groups, unions, fraternal or athletic groups, or school groups? Yes [facility] Are you now , , , , never or living with a partner? [facility] How often to you hav e a drink containing alcohol? Never [facility] How many standard dr inks containing alcohol do you have on a typical day? Patient does not drink [facility] Do you feel stress - tense, restless, nervous, or anxious, or unable to sleep at night because your mind is troubled all the time - these days [OSQ] Only a little [facility] (I/We) worried wheervin er (my/our) food would run out before (I/we) got money to buy more. Never true [facility] In the past 12 month s, was there a time when you were not able to pay the mortgage or rent on time? No [facility] Do you feel stress - tense, restless, nervous, or anxious, or unable to sleep at night because your mind is troubled all the time - these days [OSQ] Not at all [facility] Start: 12-14-2024 Sex Male (finding) [facility] Medical Equipment Procedure Code Equipment Code Equipment Origin al Text Equipment Identifier Dates ACCOLADE II ANGL E STEM 127 DEG FDA Start: 11-26-2017 BIOLEX DELTA CER AMIC FEM HEAD FDA Start: 11-26-2017 TRIDENT X3 O DEG POLY INSERT FDA Start: 11-26-2017 trident susan acetabular shell FDA Start: 11-26-2017 Mesh Progrip Polyactic Acid Collagen Polyester [id number] Surgical Self Fixate - [id number] Start: 06-12-2022 ACCOLADE II ANGL E [...] FDA Start: 11-26-2017 Mesh Progrip Wisam Pet [id number] Surgical Self Fixate Flat Sheet Hernia Sterile - [id number] Start: 06-12-2022 ACCOLADE II ANGL E [...] Assessment Result Facility 06-15-2022 Functional status Ambulates;Chair [facility] Work Phone: Mental Status Date Assessment Result Facility 12-14-2024 Cognitive function Voice/Name [facility] Work Phone: 06-15-2022 Cognitive function Voice/Name [facility] Work Phone: Clinical Notes 09-22-1996 to 06-27-2025 Telephone Encounter - Zenaida Morrissey [facility] 03/17/2025 8:57 AM EDTTelephone Encounter - Zenaida Morrissey [facility] [place] 03/17/2025 8:57 AM Citlaly Maldonado MA - 01/18/2025 10:42 AM EDTPatient Instructions Note Date & Type Note Facility 06-27-2025 Note HNO ID: [id number] Author: SALLY STEELE CCC-ASSISTANT SUPERINTENDENT Service: ? Author Type: Speech Language Pathologist Type: Progress Notes Filed: 06/27/2025 13:58 Note Text: Summary: DYSPHAGIA EVALUATION Episode Visit Count: 1 Therapist That Will Accept/Oversee The Plan Of Care: Sally Steele Start of Care Date: 06/27/25 Onset Date: 06/24/25 Patient Identified by Name and Date of : Yes [facility] SPEECH THERAPY [...] Barium Swallow Study (MBSS) Recommended Consults GI ASSISTANT SUPERINTENDENT Recommendations: Instrumental Swallow Assessment Recommendations Instrumental Swallow [...] PO, Small Bite/Sip, Use extra moistening agents [place] Swallow Protocol: Pass Suspected Esophageal Deficits: Patient/Family [...] Return Demonstration TREATMENT: Evaluation: Swallow Eval Func (76371) Evaluation: Swallow Eval Func (87559) Current Home Program: Continue diet as tolerated. Continue current swallow/eating strategies. MBSS and GI follow-up ( (more content not included)... [facility] 06-25-2025 Note HNO ID: [id number] Author: ROBEL ONOFRE, DO Service: ? Author [...] loss. BMI 29.66 kg/(m2) Robel Onofre DO [facility] 06-24-2025 Note HNO ID: [id number] Author: NAMITA HARDWICK RT(R) Service: ? Author [...] PATIENT PRESENTS WITH AN IMPLANTABLE OR ATTACHED COMMODITY BUYER: No RADIOLOGY DEPARTMENT: General X-ray: Exam(s) Completed: Chest X-Ray PERIPHERAL IV DATA: Not applicable SIGNED BY: RT Derrick(R) June 24, 2025 11:36 AM [facility] 06-24-2025 Note HNO ID: [id number] Author: ROBEL ONOFRE DO Service: ? Author [...] taking medications as prescribed. Continues to see Office Secretary for followup Iron deficiency, eating iron rich [...] Macular degeneration NSTEMI (non-ST elevated myocardial infarction) (FORMERLY [facility]) 10/28/2019 Osteoarthritis of left hip Paresthesia PMH [...] 07/28/2007 DIR RPR ANEURYSM ABDOMINAL AORTA 04/20/2011 [facility] EYLEA (AFLIBERCEPT) 2MG INTRAVITREAL INJECTION OD (RIGHT [...] Age of Onset Heart Mother age 60 [place], smoker None Father age 77 MVA Cataract [...] rash/itching. Allergies: ALLERGIES (more content not included)... [facility] 03-17-2025 Telephone encounter Note Prescription Refill Information [...] Zenaida Mace March 17, 2025 8:57 AM [facility] 03-17-2025 Miscellaneous Notes Prescription Refill Information The [...] 2025 8:57 AM documented in this encounter [facility] 02-10-2025 Telephone encounter Note Prescription Refill Information [...] Cedillo MA February 10, 2025 7:53 PM [facility] 02-10-2025 Miscellaneous Notes Prescription Refill Information The [...] 2025 7:53 PM documented in this encounter [facility] 01-18-2025 Note HNO ID: [id number] Author: CITLALY PAYTON MA Service: ? Author Type: Laminating Press Operator Type: Progress Notes Filed: 01/18/2025 10:43 [...] orders: Medicare Annual Wellness Visit 06/24/2025 in [facility] with ROBEL ONOFRE - Medicare Wellness, HCC gap closure HCC related Navigation Signature: Citlaly Payton MA January 18, 2025 10:43 AM [facility] 01-18-2025 History of Present illness Narrative POPULATION [...] orders: Medicare Annual Wellness Visit 06/24/2025 in [facility] with ROBEL ONOFRE Medicare Wellness, HCC gap closure HCC related Navigation Signature: Citlaly Payton MA January 18, 2025 10:43 AM documented in this encounter [facility] 01-18-2025 Note Patient Outreach (NE TNAV) TODD MATAMOROS ([id number]) 1940 M Date Time Provider Department 01/18/25 [...] orders: Medicare Annual Wellness Visit 06/24/2025 in [facility] with ROBEL ONOFRE Medicare Wellness, [...] Encounter Status:Closed by CITLALY PAYTON on 01/18/25 [facility] 12-27-2024 Instructions Robel Onofre DO - 12/27/2024 11:19 AM EDT STOP the Omeprazole Start on PROTONIX documented in this encounter [facility] 12-27-2024 Note HNO ID: [id number] Author: ROBEL ONOFRE DO Service: ? Author Type: Physician Type: Progress Notes Filed: 12/27/2024 14:03 Note Text: CC: Todd Matamoros is a 84 year old male who presents to the office for follow up HPI: Recently with episode of dizziness. Was assessed in office by Asha Hernandez CNP and then sent to [facility] for further assessment with [...] taking medications as prescribed. Continues to see Office Secretary for followup Iron deficiency, eating iron rich [...] 07/28/2007 DIR RPR ANEURYSM ABDOMINAL AORTA 04/20/2011 [place] EYLEA (AFLIBERCEPT) 2MG INTRAVITREAL INJECTION OD [...] b/l, visually impair (more content not included)... [facility] 12-27-2024 History of Present illness Narrative CC: Todd Matamoros is a 84 year old male who presents to the office for follow up HPI: Recently with episode of dizziness. Was assessed in office by Asha Hernandez CNP and then sent to [facility] for further assessment with [...] taking medications as prescribed. Continues to see Office Secretary for followup Iron deficiency, eating iron rich [...] Macular degeneration NSTEMI (non-ST elevated myocardial infarction) (FORMERLY [facility]) 10/28/2019 Osteoarthritis of left hip Paresthesia PMH [...] 07/28/2007 DIR RPR ANEURYSM ABDOMINAL AORTA 04/20/2011 [facility] EYLEA (AFLIBERCEPT) 2MG INTRAVITREAL INJECTION OD (RIGHT [...] See patient instructions. Robel Onofre DO [address] [place] [address] documented in this encounter [facility] 12-21-2024 Telephone encounter Note Spoke with daughter and notified of below. Verbalized understanding. Nuria Hurst LPN [facility] 12-21-2024 Miscellaneous Notes Spoke with daughter and [...] 12/14/24 for vertigo. Asha sent pt to [facility] ER that day and ER prescribed meclizine 12.5 mg take 3 x's day prn. Reports the meclizine has helped pt's vertigo. Daughter did not schedule ER f/u with pcp b/c patient has appt with pcp on Friday12/27/24 for a f/u. Reports pt has 1-2 meclizine pills left. Asking if pcp would send new Rx to [facility]. Pended. documented in this encounter [facility] 12-21-2024 Telephone encounter Note The following approved medication requests have been transmitted electronically. Requested Prescriptions Signed Prescriptions Disp Refills meclizine (ANTIVERT) 12.5 mg tab 20 tablet 0 Sig: Take 1 tablet by mouth three times a day as needed (for dizziness.). Authorizing Provider: PARISH BEASLEY PA-C [facility] 12-20-2024 Telephone encounter Note Daughter, Zulema, reports pt saw Asha on 12/14/24 for vertigo. Asha sent pt to [facility] ER that day and ER prescribed meclizine 12.5 mg take 3 x's day prn. Reports the meclizine has helped pt's vertigo. Daughter did not schedule ER f/u with pcp b/c patient has appt with pcp on Friday12/27/24 for a f/u. Reports pt has 1-2 meclizine pills left. Asking if pcp would send new Rx to [facility]. Pended. [facility] 12-14-2024 Radiology Diagnostic study note [facility] [address] [place], [place] [id number] CTA Head AND Neck W/ Contrast MR#: [id number] Acct: [id number] Name: TODD MATAMOROS Rep #: [id number] : [id number] M 84 From: Robert Raymond MD PCP: Dr. Robel Onofre, DO Status: RE G ER Study:CTA Head AND Neck W/ Contrast Date of E xam: 12/14/24 Exam# [id number] Ordering Dr: Cristobal Mayo DO PROCEDURE: CTA [...] RIGHT Vertebral: Unremarkable. LEFT Vertebral: Unremarkable. Anatomy: [place] anatomy is normal. Aneurysm or [...] internal carotid artery. Cerebral atrophy. [facility] CC: Dr. Robel Onofre, DO; Dr. Cristobal Mayo DO ~ Property Underwriter: Signed [facility] 12-14-2024 Instructions Asha Hernandez, GIA.[facility] - 12/14/2024 12:22 PM EDT We [...] contact our office. documented in this encounter [facility] 12-14-2024 Note HNO ID: [id number] Author: ASHA HERNANDEZ APRN.LEO Service: ? Author Type: Nurse Practitioner Type: Progress Notes Filed: 12/14/2024 12:34 Note Text: CC: Patient presents with: Vertigo: Dizziness x 1 day HPI Recording using [employer] software for draft documentation of the visit was discussed with the patient/authorized floor representative; all questions welcomed and answered. Patient/authorized floor representative agreed to proceed Daryn is a [...] Macular degeneration NSTEMI (non-ST elevated myocardial infarction) (FORM[facility]LY [facility]) 10/28/2019 Osteoarthritis of left hip Paresthesia PMH [...] 07/28/2007 DIR RPR ANEURYSM ABDOMINAL AORTA 04/20/2011 [facility] EYLEA (AFLIBERCEPT) 2MG INTRAVITREAL INJECTION OD (RIGHT [...] Age of Onset Heart Mother age 60 [place], smoker None Father age 77 MVA Cataract Father No Known Problems Sister No Known Problems Brother No Known Problems (more content not included)... [facility] 12-14-2024 History of Present illness Narrative CC: Patient presents with: Vertigo: Dizziness x 1 day HPI Recording using [employer] software for draft documentation of the visit was discussed with the patient/authorized floor representative; all questions welcomed and answered. Patient/authorized floor representative agreed to proceed Daryn is a [...] Macular degeneration NSTEMI (non-ST elevated myocardial infarction) ([facility]) 10/28/2019 Osteoarthritis of left hip Paresthesia PMH [...] 07/28/2007 DIR RPR ANEURYSM ABDOMINAL AORTA 04/20/2011 [facility] EYLEA (AFLIBERCEPT) 2MG INTRAVITREAL INJECTION OD (RIGHT [...] Age of Onset Heart Mother age 60 [place], smoker None Father age 77 MVA Cataract [...] Left Ear: Tympanic membrane normal. Mouth/Throat: Lips: [place]. Mouth: Mucous membranes are moist. Pharynx: Oropharynx [...] Reflexes: Reflexes are normal and symmetric. Comments: David-Hallpike- vertigo elicited with head turned to the right however nystagmus was absent Assessment/Plan 1. Vertigo (R42) Nausea and vomiting, unspecified vomiting type (R11.2) Onset of vertigo occurred last evening when transitioning from a supine to sitting position. Described as room spinning, accompanied by nausea but no emesis. No associated otalgia, tinnitus, or recent upper respiratory infections. Neurological exam revealed no abnormalities. [place]-Hallpike maneuver elicited vertigo when head turned to the right but negative for nystagmus. Differential diagnosis includes BPPV and potential cerebrovascular accident (CVA) due to age and cardiac history. - Recommended immediate evaluation in the emergency department for further diagnostic workup, including CT scan of the brain to rule out CVA. Patient is stable for his daughter to transport him to [facility] ER - Discussed potential treatments for [...] which included preparing to see the patient, awwk-hu-kovk patient care, completing clinical documentation, performing a medically appropriate examination, counseling and educating the patient/family/caregiver, and care coordination (not separately reported). Prescription instructions reviewed with patient as applicable. Potential red flag symptoms discussed with the patient. Reviewed appropriate action plan to take if red flag symptoms occur. Patient agreeable to treatment plan. Asha Hernandez APRN.PMO CONSULTANT documented in this encounter [facility] 12-14-2024 Telephone encounter Note Pt's daughter calls [...] scheduled for this morning. Debra Romero LPN [facility] 12-14-2024 Miscellaneous Notes Pt's daughter calls to [...] Debra Romero LPN documented in this encounter [facility] 12-09-2024 Telephone encounter Note Prescription Refill Information [...] Sravanthi Mace December 09, 2024 2:48 PM [facility] 12-09-2024 Miscellaneous Notes Prescription Refill Information The [...] 2024 2:48 PM documented in this encounter [facility] 11-22-2024 Telephone encounter Note Patient has been [...] 12/27/2024 Please advise. Thank you. Vanessa Casillas. [facility] 11-22-2024 Miscellaneous Notes Patient has been identified [...] you. Vanessa Casillas. documented in this encounter [facility] 11-08-2024 Telephone encounter Note Prescription Refill Information [...] Sravanthi Mace November 08, 2024 8:43 AM [facility] 11-08-2024 Miscellaneous Notes Prescription Refill Information The [...] 2024 8:43 AM documented in this encounter [facility] 10-12-2024 Telephone encounter Note Letter signed on Nurse's desk 2nd floor. [facility] 10-12-2024 Miscellaneous Notes Letter signed on Nurse's [...] Person calling: daughter: Jadyn Lew patient at: [phone] Was an appointment scheduled: No Closing statement: Zenaida Mace documented in this encounter [facility] 10-12-2024 Telephone encounter Note Okay for letter. 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 Please compose letter for me to review and sign Robel Onofre DO [facility] 10-08-2024 Telephone encounter Note Shy is calling Robel Onofre DO today to request Letter (Blindness confirmation for taxes) Patient has been identified by name and birthdate. Duration of symptoms: N/A Person calling: daughter: Jadyn Lew patient at: [phone] Was an appointment scheduled: No Closing statement: Zenaida Mace [facility] Work Phone: 10-08-2024 Telephone encounter Note For your information: Patient's insurance is now [employer]. Daughter unable to supply further information. Will call back with info to update namita. [facility] 10-08-2024 Miscellaneous Notes For your information: Patient's [...] 2024 8:15 AM documented in this encounter [facility] 10-08-2024 Telephone encounter Note Prescription Refill Information [...] Zenaida Mace October 08, 2024 8:15 AM [facility] 09-02-2024 Telephone encounter Note Forms mailed to Jadyn's home address as requested. Copy placed in chart of forms. [facility] 09-02-2024 Miscellaneous Notes Forms mailed to Jadyn's [...] it to her in the mail at [address] [place], [place] [address]. Shahla Sofia RN Type of form: Deaf and blind form Form received via walk in When form is completed, PhoneTina when complete.[phone] Form has been forwarded to Physician Desk: Dr. Kingston Kirk LPN documented in this encounter [facility] 09-01-2024 Telephone encounter Note Paperwork is complete now Robel Onofre DO [facility] 09-01-2024 Telephone encounter Note Daughter calls to ask if form could be completed today as she is unexpectedly leaving to go out of town late this afternoon. Notified daughter that I was uncertain that letter would be completed that quickly. Daughter voices understanding and requests if can't be completed today to please send it to her in the mail at [address] [place], [place] [address]. Shahla Sofia RN [facility] 08-30-2024 Telephone encounter Note Type of form: Deaf and blind form Form received via walk in When form is completed, PhoneTina when complete.[phone] Form has been forwarded to Physician Desk: Dr. Kingston Kirk LPN [facility] 08-11-2024 Telephone encounter Note Prescription Refill Information [...] Lorrie Mace August 11, 2024 10:59 AM [facility] 08-11-2024 Miscellaneous Notes Prescription Refill Information The [...] 2024 10:59 AM documented in this encounter [facility] 07-01-2024 Telephone encounter Note Patient notified and verbalized understanding. Kortney Bonner LPN [facility] 07-01-2024 Miscellaneous Notes Patient notified and verbalized understanding. Kortney Bonner LPN Please inform patient or daughters that his labs are overall stable. Urine has a little protein and is dark and concentrated. Needs to be drinking more water. Robel Onofre DO documented in this encounter [facility] 07-01-2024 Telephone encounter Note Please inform patient or daughters that his labs are overall stable. Urine has a little protein and is dark and concentrated. Needs to be drinking more water. Robel Onofre DO [facility] 06-30-2024 Note HNO ID: [id number] Author: ROBEL ONOFRE DO Service: ? Author [...] taking medications as prescribed. Continues to see Office Secretary for followup Iron deficiency, eating iron rich foods,no signs of bleeding. Last labs in November Mood, overall stable, taking Sertraline. Helps to care for his with dementia. Daughter feels he is doing well. Has fatigue, wondering if can try vitamin b12 injections PAST MEDICAL HISTORY Diagnosis Date Acute bronchitis Aneurysm of abdominal aorta (FORMERLY [facility]) 04/20/2011. Lower abdomen. BPH (benign prostatic hyperplasia) CAD (coronary artery disease) Diverticulosis of colon (without mention of hemorrhage) GERD (gastroesophageal reflux disease) Hyperlipidemia Hypertension Internal hemorrhoids without mention of complication Macular degeneration NSTEMI (non-ST elevated myocardial infarction) (FORM[facility]LY [facility]) 10/28/2019 Osteoarthritis of left hip Paresthesia PMH [...] 07/28/2007 DIR RPR ANEURYSM ABDOMINAL AORTA 04/20/2011 [place] EYLEA (AFLIBERCEPT) 2MG INTRAVITREAL INJECTION OD [...] 4 extremities Ne (more content not included)... [facility] 06-30-2024 History of Present illness Narrative CC: [...] taking medications as prescribed. Continues to see Office Secretary for followup Iron deficiency, eating iron rich foods,no signs of bleeding. Last labs in November Mood, overall stable, taking Sertraline. Helps to care for his with dementia. Daughter feels he is doing well. Has fatigue, wondering if can try vitamin b12 injections PAST MEDICAL HISTORY Diagnosis Date Acute bronchitis Aneurysm of abdominal aorta ([facility]) 04/20/2011. Lower abdomen. BPH (benign prostatic hyperplasia) CAD (coronary artery disease) Diverticulosis of colon (without mention of hemorrhage) GERD (gastroesophageal reflux disease) Hyperlipidemia Hypertension Internal hemorrhoids without mention of complication Macular degeneration NSTEMI (non-ST elevated myocardial infarction) ([facility]) 10/28/2019 Osteoarthritis of left hip Paresthesia PMH [...] 07/28/2007 DIR RPR ANEURYSM ABDOMINAL AORTA 04/20/2011 [place] EYLEA (AFLIBERCEPT) 2MG INTRAVITREAL INJECTION OD [...] See patient instructions. Robel Onofre DO [address] [place] [address] documented in this encounter [facility] 05-04-2024 Telephone encounter Note Prescription Refill Information [...] Zenaida Mace May 04, 2024 11:46 AM [facility] 05-04-2024 Miscellaneous Notes Prescription Refill Information The [...] 2024 11:46 AM documented in this encounter [facility] 03-10-2024 History of Present illness Narrative Chief [...] - SERTRALINE 25 MG TABLET Bessie Ambrocio APRN.PMO CONSULTANT Currently: Accompanied by daughter Zulema today. Mood-significant [...] Macular degeneration NSTEMI (non-ST elevated myocardial infarction) ([facility]) 10/28/2019 Osteoarthritis of left hip Paresthesia PMH [...] 07/28/2007 DIR RPR ANEURYSM ABDOMINAL AORTA 04/20/2011 [facility] EYLEA (AFLIBERCEPT) 2MG INTRAVITREAL INJECTION OD (RIGHT [...] Age of Onset Heart Mother age 60 [place], smoker None Father age 77 MVA Cataract [...] in no acute distress, well-hydrated, well nourished. NELSON [place]. Psychiatric: pleasant, cooperative. Health Maintenance List DTaP,Tdap,Td [...] - SERTRALINE 25 MG TABLET Bessie Ambrocio APRN.PMO CONSULTANT documented in this encounter [facility] 02-04-2024 History of Present illness Narrative Chief [...] Date Acute bronchitis Aneurysm of abdominal aorta ([facility]) 04/20/2011. Lower abdomen. BPH (benign prostatic hyperplasia) CAD (coronary artery disease) Diverticulosis of colon (without mention of hemorrhage) GERD (gastroesophageal reflux disease) Hyperlipidemia Hypertension Internal hemorrhoids without mention of complication Macular degeneration NSTEMI (non-ST elevated myocardial infarction) ([facility]) 10/28/2019 Osteoarthritis of left hip Paresthesia PMH [...] 07/28/2007 DIR RPR ANEURYSM ABDOMINAL AORTA 04/20/2011 [place] EYLEA (AFLIBERCEPT) 2MG INTRAVITREAL INJECTION OD [...] Age of Onset Heart Mother age 60 [place], smoker None Father age 77 MVA Cataract [...] in no acute distress, well-hydrated, well nourished. [place], significantly decreased sight.. Lungs: Lungs clear to [...] Bessie Ambrocio APRN.CNP\ documented in this encounter [facility] 01-26-2024 Telephone encounter Note Spoke to daughter patient was scheduled. Did make 40 min due to multiple concerns Abby Hardy MA [facility] 01-26-2024 Miscellaneous Notes Spoke to daughter patient was scheduled. Did make 40 min due to multiple concerns Abby Hardy MA Needs appointment to assess and discuss. Thank you, Cat Foote APRN.PMO CONSULTANT Patient's daughter Jadyn calling stating that patient has been having issues with depression that seems to be getting worse due to 's worsening symptoms of dementia. Jadyn states that Todd is ready to try medication for this and is wondering if something could be sent to pharmacy. Please call Jadyn back once addressed. documented in this encounter [facility] 01-26-2024 Telephone encounter Note Needs appointment to assess and discuss. Thank you, Cat Foote APRN.PMO CONSULTANT [facility] 01-26-2024 Telephone encounter Note Patient's daughter Jadyn calling stating that patient has been having issues with depression that seems to be getting worse due to 's worsening symptoms of dementia. Jadyn states that Todd is ready to try medication for this and is wondering if something could be sent to pharmacy. Please call Jadyn back once addressed. [facility] 01-16-2024 Telephone encounter Note TC to patients daughter Jadyn who is listed in chart to receive medical information. Jadyn verbalized understanding of providers message and has no questions at this time. MINA Myers [facility] 01-16-2024 Miscellaneous Notes TC to patients daughter [...] Robel Onofre DO documented in this encounter [facility] 01-16-2024 Telephone encounter Note Please let him know that overall his labs look much better, improved from previous labs. Now alkaline phosphatase is normal. Renal and liver function is normal. Triglycerides are just slightly high which is related to fatty meat and sugars. Cut back on this if able Robel Onofre DO [facility] 01-01-2024 Telephone encounter Note Jadyn- Daughter notified and verbalized understanding. Marylu Villanueva MA [facility] 01-01-2024 Miscellaneous Notes Jadyn- Daughter notified and [...] Robel Onofre DO documented in this encounter [facility] 01-01-2024 Telephone encounter Note Please call patient and let him know that his recent labs show that his 1 liver enzyme called alkaline phosphatase is sligthly high and his serum creatinine is also slightly high. I would like him to increase his electrolyte rich water intake to at least 60-80 oz a day and recheck labs in 2 weeks. Robel Onofre DO [facility] 12-22-2023 History of Present illness Narrative CC: [...] taking medications as prescribed. Continues to see Office Secretary for followup Iron deficiency, eating iron rich [...] Macular degeneration NSTEMI (non-ST elevated myocardial infarction) (FORMERLY [facility]) 10/28/2019 Osteoarthritis of left hip Paresthesia PMH [...] 07/28/2007 DIR RPR ANEURYSM ABDOMINAL AORTA 04/20/2011 [facility] EYLEA (AFLIBERCEPT) 2MG INTRAVITREAL INJECTION OD (RIGHT [...] Age of Onset Heart Mother age 60 [place], smoker None Father age 77 MVA Cataract [...] agreed with the plan. Robel Onofre DO [address] [place] [address] documented in this encounter [facility] 11-25-2023 Miscellaneous Notes Spoke with pt and [...] you. Rodney Mace. documented in this encounter [facility] 11-12-2023 Miscellaneous Notes Patient has been identified [...] you. Lidia Galvez. documented in this encounter [facility] 10-14-2023 Miscellaneous Notes Patient has been identified [...] Marisela Lilly Pss. documented in this encounter [facility] 07-31-2023 Miscellaneous Notes KIRAN 06/13/23 Scheduled 12/22/23 Patient has been identified by name and date of : Yes Requested Prescriptions Pending Prescriptions Disp Refills tamsulosin (FLOMAX) 0.4 mg 180 capsule 3 Sig: Take 2 capsules by mouth once daily. RX INSTRUCTIONS: Patient aware RX will be sent to pharmacy. No need to notify patient. Lidia Galvez documented in this encounter [facility] 07-31-2023 Miscellaneous Notes Called pts daughter who is his cvicu rn gave information provided. She voices understanding. Asked this me mailed to home address,. Printed and sent to home address as asked. rx written in letters and sent to patient. Also printed if they need this as well Please inform Robel Onofre DO Last office visit - 06/13/2023 Patients cvicu rn calling asking if they can please get a script for a stair lift chair. Thank you documented in this encounter [facility] 07-25-2023 Miscellaneous Notes Kiran--06/13/23 Nov--12/22/23 Last refill--12/05/20 [...] patient. Lakesha Mace documented in this encounter [facility] 06-14-2023 History of Present illness Narrative CC: [...] taking medications as prescribed. Continues to see Office Secretary for followup Iron deficiency, eating iron rich foods,no signs of bleeding. Last labs in November PAST MEDICAL HISTORY Diagnosis Date Acute bronchitis Aneurysm of abdominal aorta (FORM[facility]LY [facility]) 04/20/2011. Lower abdomen. BPH (benign prostatic hyperplasia) CAD (coronary artery disease) Diverticulosis of colon (without mention of hemorrhage) GERD (gastroesophageal reflux disease) Hyperlipidemia Hypertension Internal hemorrhoids without mention of complication Macular degeneration NSTEMI (non-ST elevated myocardial infarction) (FORMERLY [facility]) 10/28/2019 Osteoarthritis of left hip Paresthesia PMH [...] 07/28/2007 DIR RPR ANEURYSM ABDOMINAL AORTA 04/20/2011 [facility] EYLEA (AFLIBERCEPT) 2MG INTRAVITREAL INJECTION OD (RIGHT [...] plan. See patient instructions. Robel Onofre DO [address] [place] [address] documented in this encounter [facility] 03-31-2023 Miscellaneous Notes Kiran--12/06/22 Nov--06/13/23 Last refill--lisinopril--10/07/22 90 with 1 refill Hctz--04/03/22 90 with 3 refills Last labs--12/06/22 Pharmacy verified in [facility] Patient has been identified by name and [...] Zenaida Zacarias Pss documented in this encounter [facility] 02-12-2023 Miscellaneous Notes Patient has been identified [...] advise. Sravanthi Mace documented in this encounter [facility] 02-05-2023 Miscellaneous Notes Given Rx's to daughter. Order signed Robel Onofre DO Order and Handicap placard letter placed on provider's desk to sign. Nury Levy RN Order placed Robel Onofre DO Patient requesting prescription of Handicap placard. Patient has two cars not sure if he needs two scripts or just one? Please advise and call Zulema Bernstein when ready for draft roller picker. documented in this encounter [facility] 12-25-2022 Miscellaneous Notes Patient's daughter Jadyn calls [...] Robel Onofre DO documented in this encounter [facility] 12-06-2022 History of Present illness Narrative CC: [...] taking medications as prescribed. Will be seeing Office Secretary for follow up next week Iron deficiency, [...] Macular degeneration NSTEMI (non-ST elevated myocardial infarction) ([facility]LY [facility]) 10/28/2019 Osteoarthritis of left hip Paresthesia PMH [...] 07/28/2007 DIR RPR ANEURYSM ABDOMINAL AORTA 04/20/2011 [facility] EYLEA (AFLIBERCEPT) 2MG INTRAVITREAL INJECTION OD (RIGHT [...] Age of Onset Heart Mother age 60 [place], smoker None Father age 77 MVA Cataract [...] with the plan. Robel Onofre DO [address] [place] [address] documented in this encounter [facility] 11-18-2022 Miscellaneous Notes Patient has been identified [...] Rodney Kirk LPN documented in this encounter [facility] 10-17-2022 Miscellaneous Notes Last office visit: 07/03/22 F/u scheduled: 12/06/22 Mikaela Varghese Ma Pharmacy verified in [facility] Patient has been identified by name and [...] Zenaida Zacarias Pss documented in this encounter [facility] 10-07-2022 Miscellaneous Notes Kiran--07/03/22 Nov--12/06/22 Last refill--protonix--06/14/22 [...] Lorrie Latham Pss documented in this encounter [facility] 09-10-2022 Miscellaneous Notes Patient has been identified by name and date of : Yes Requested Prescriptions Pending Prescriptions Disp Refills atenolol (TENORMIN) 50 mg tablet 90 tablet 3 Sig: Take 1 tablet by mouth once daily. RX INSTRUCTIONS: Patient aware RX will be sent to pharmacy. No need to notify patient. Lorrie Latham Pss documented in this encounter [facility] 07-24-2022 Miscellaneous Notes Patient has been identified [...] you. Cat Trammell documented in this encounter [facility] 07-04-2022 Miscellaneous Notes Spoke with pt's daughter [...] Bessie Ambrocio APRN.CNP documented in this encounter [facility] 07-03-2022 History of Present illness Narrative Chief Complaint Patient presents with: [facility] Todd Matamoros is a 82 year old male who presents here today for Above Complaints.. Today: Was admitted to [facility] on 06/13 for coffee ground emesis. [...] Macular degeneration NSTEMI (non-ST elevated myocardial infarction) ([facility]LY [facility]) 10/28/2019 Osteoarthritis of left hip Paresthesia PMH [...] 07/28/2007 DIR RPR ANEURYSM ABDOMINAL AORTA 04/20/2011 [facility] EYLEA (AFLIBERCEPT) 2MG INTRAVITREAL INJECTION OD (RIGHT [...] Age of Onset Heart Mother age 60 [place], smoker None Father age 77 MVA Cataract [...] Bessie Ambrocio APRN.LEO documented in this encounter [facility] 06-27-2022 Miscellaneous Notes TC to patient who [...] Robel Onofre DO documented in this encounter [facility] 06-21-2022 Miscellaneous Notes Pt daughter informed of [...] having procedure. Please advise daughter Shy at [phone]. Thank you. documented in this encounter [facility] 06-17-2022 Miscellaneous Notes Noted. Good to hear. Thank you, Cat Lentz APRN.PMO CONSULTANT Spoke with pts son pt is with [...] sooner if able. Thank you, Cat Lentz APRN.PMO CONSULTANT Daughter calls and states pt had hernia surgery last 06-12-22. Pt was having complications and was admitted to [facility] 06-13-22 vomiting black coffee ground. and [...] Tiffanie Latham LPN documented in this encounter [facility] 06-17-2022 History of Present illness Narrative TRANSITION CARE MANAGEMENT (TCM) INITIAL CONTACT Laminating Press Operator Outreach Provider Action/FYI: Pt having low blood pressure, daughter called in. Phone encounter made for this. Initial contact with patient post discharge, spoke to daughter. Patient identified by name and . TRANSITION CARE MANAGEMENT INITIAL OUTREACH DOCUMENTATION: Date of Outreach: 06/17/2022 Outreach Attempt 1: Contact Made Date of Discharge 06/08/2022 Some recent data might be hidden SUMMARY: -Pt discharged from [facility] on 06/08/22. -Admitted for: vomiting coffee [...] records from recent hospitalization: Records are at [facility] documented in this encounter [facility] 06-13-[address] 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 Staffing TRAIN CONTROLLER: Tamara Stinson APRN.TRAIN CONTROLLER Performed by: SARI Indications and Patient Condition [...] attempts at approach: 1 SIGNATURE: Tamara Stinson APRN.TRAIN CONTROLLER PATIENT NAME: Todd Matamoros DATE: June 12, 2022 TIME: 12:02 PM CSN: [id number] [facility] 06-12-2022 Surgical operation note OPERATIVE/PROCEDURE REPORT LOG ID: [id number] SURGERY/PROCEDURE DATE: 06/12/2022 INCISION/PROCEDURE START TIME: 12:00 PM INCISION CLOSE/PROCEDURE END TIME: 12:49 PM SURGEON(S)/PROCEDURALIST(S) AND AUTISM MOTOR SPECIALIST(S): Surgeon(s) and Role: * Florencio Tesfaye MD - Primary Nurse Practitioner: Nuria Banks APRN.PMO CONSULTANT Physician Asbestos Wire Finisher: Indy Mosqueda PA-C SURGERY/PROCEDURE(S): Laparoscopic bilateral inguinal hernia repair with mesh ANESTHESIA: General SURGERY/PROCEDURE DETAILS: Patient was brought into the operating room. Placed in the supine position. Under excellent general anesthetic the abdomen was sterilely prepped and draped in the usual fashion. Local was injected supraumbilically. Dissection was carried down to the fascia the fascia was grasped with a Macy varies needle was placed inside the abdomen [...] the fascia the umbilical port with a [id number] stitch of 0 Vicryl. Skin incisions were closed with subcuticular stitches of 4-0 Monocryl. Steri-Strips were applied sterile dressings were applied patient tolerated the procedure well. Nuria Banks CNP was my intellectual property legal assistant. She assisted with retraction, visualization and [...] TIME: 12:53 PM documented in this encounter [facility] 06-12-2022 History and physical note Images from [...] Date Acute bronchitis Aneurysm of abdominal aorta ([facility]) 04/20/2011. Lower abdomen. BPH (benign prostatic hyperplasia) CAD (coronary artery disease) Diverticulosis of colon (without mention of hemorrhage) GERD (gastroesophageal reflux disease) Hyperlipidemia Hypertension Internal hemorrhoids without mention of complication Macular degeneration NSTEMI (non-ST elevated myocardial infarction) ([facility]) 10/28/2019 Osteoarthritis of left hip Paresthesia PMH [...] 07/28/07 DIR RPR ANEURYSM ABDOMINAL AORTA 04/20/2011 [place] EYLEA (AFLIBERCEPT) 2MG INTRAVITREAL INJECTION OD [...] Age of Onset Heart Mother age 60 [place], smoker None Father age 77 MVA Cataract [...] right inguinal hernia repair with mesh - [id number] Anticipated Anesthetic: General Patient weight: Blood pressure 133/63, pulse (!) 59, temperature 36.4 C (97.6 F), weight 82 kg (180 lb 12.8 oz), SpO2 96 %. BMI: Body mass index is 28.32 kg/m . Planned antibiotic: Ancef 2gm IVPB detonator maker to OR SCDs needed - Yes Return [...] TIME: 11:11 AM documented in this encounter [facility] 06-07-2022 Miscellaneous Notes Received letter from Dr. Donald's office with notification to stop Plavix for 5 days prior to procedure but can continue aspirin therapy due to cardiac stent. TE from [facility] rasheed today notifying patient of instructions. Copy of letter given to Luiza Rivers CNP and original sent to sticker machine operator to scan. Gianna Branham LPN documented in this encounter [facility] 06-07-2022 Miscellaneous Notes Message left for Dr [...] 2022 10:44 AM documented in this encounter [facility] 06-04-2022 History of Past i llness Narrative Problem Noted Date Resolved Date Right inguinal hernia 06/04/2022 06/12/2022 documented as of this encounter (statuses as of 06/13/2022) [facility] History of Past illness Narrative* Problem Noted Date Resolved Date Right inguinal hernia 06/04/2022 06/12/2022 documented as of this encounter (statuses as of 06/13/2022) [facility] History of Past illness Narrative* Problem Noted Date Resolved Date Right inguinal hernia 06/04/2022 06/12/2022 documented as of this encounter (statuses as of 06/21/2022) [facility] History of Past illness Narrative* Problem Noted Date Resolved Date Right inguinal hernia 06/04/2022 06/12/2022 documented as of this encounter (statuses as of 06/24/2022) [facility] History of Past illness Narrative* Problem Noted Date Resolved Date Right inguinal hernia 06/04/2022 06/12/2022 documented as of this encounter (statuses as of 06/25/2022) [facility] History of Past illness Narrative* Problem Noted Date Resolved Date Right inguinal hernia 06/04/2022 06/12/2022 documented as of this encounter (statuses as of 06/27/2022) [facility] History of Past illness Narrative* Problem Noted Date Resolved Date Right inguinal hernia 06/04/2022 06/12/2022 documented as of this encounter (statuses as of 07/03/2022) [facility] History of Past illness Narrative* Problem Noted Date Resolved Date Right inguinal hernia 06/04/2022 06/12/2022 documented as of this encounter (statuses as of 07/04/2022) [facility] History of Past illness Narrative* Problem Noted Date Resolved Date Right inguinal hernia 06/04/2022 06/12/2022 documented as of this encounter (statuses as of 07/24/2022) [address]22 History of Past illness Narrative* Problem Noted Date Resolved Date Right inguinal hernia 06/04/2022 06/12/2022 documented as of this encounter (statuses as of 09/11/2022) [address]22 History of Past illness Narrative* Problem Noted Date Resolved Date Right inguinal hernia 06/04/2022 06/12/2022 documented as of this encounter (statuses as of 10/08/2022) [facility] History of Past illness Narrative* Problem Noted Date Resolved Date Right inguinal hernia 06/04/2022 06/12/2022 documented as of this encounter (statuses as of 10/17/2022) [facility] History of Past illness Narrative* Problem Noted Date Resolved Date Right inguinal hernia 06/04/2022 06/12/2022 documented as of this encounter (statuses as of 11/18/2022) [address]22 History of Past illness Narrative* Problem Noted Date Resolved Date Right inguinal hernia 06/04/2022 06/12/2022 documented as of this encounter (statuses as of 12/06/2022) [facility] History of Past illness Narrative* Problem Noted Date Resolved Date Right inguinal hernia 06/04/2022 06/12/2022 documented as of this encounter (statuses as of 12/26/2022) [address]22 History of Past illness Narrative* Problem Noted Date Resolved Date Right inguinal hernia 06/04/2022 06/12/2022 documented as of this encounter (statuses as of 02/05/2023) [facility] History of Past illness Narrative* Problem Noted Date Resolved Date Right inguinal hernia 06/04/2022 06/12/2022 documented as of this encounter (statuses as of 02/12/2023) [address]22 History of Past illness Narrative* Problem Noted Date Diagnosed Date Resolved Date Right inguinal hernia 06/04/20222021 documented as of this encounter (statuses as of 03/31/2023) [facility] History of Past illness Narrative* Problem Noted Date Diagnosed Date Resolved Date Right inguinal hernia 06/04/20222021 documented as of this encounter (statuses as of 06/18/2023) [address]22 History of Past illness Narrative* Problem Noted Date Diagnosed Date Resolved Date Right inguinal hernia 06/04/20222021 documented as of this encounter (statuses as of 07/25/2023) [address]22 History of Past illness Narrative* Problem Noted Date Diagnosed Date Resolved Date Right inguinal hernia 06/04/20222021 documented as of this encounter (statuses as of 07/31/2023) [facility] History of Past illness Narrative* Problem Noted Date Diagnosed Date Resolved Date Right inguinal hernia 06/04/20222021 documented as of this encounter (statuses as of 07/31/2023) [facility] History of Past illness Narrative* Problem Noted Date Diagnosed Date Resolved Date Right inguinal hernia 06/04/20222021 documented as of this encounter (statuses as of 10/15/2023) [facility] History of Past illness Narrative* Problem Noted Date Diagnosed Date Resolved Date Right inguinal hernia 06/04/20222021 documented as of this encounter (statuses as of 11/13/2023) [facility] History of Past illness Narrative* Problem Noted Date Diagnosed Date Resolved Date Right inguinal hernia 06/04/20222021 documented as of this encounter (statuses as of 11/24/2023) [facility] History of Past illness Narrative* Problem Noted Date Diagnosed Date Resolved Date Right inguinal hernia 06/04/20222021 documented as of this encounter (statuses as of 11/25/2023) [facility] History of Present illness Narrative* Robel Onofre, [...] Macular degeneration NSTEMI (non-ST elevated myocardial infarction) ([facility]) 10/28/2019 Osteoarthritis of left hip Paresthesia PMH [...] 07/28/07 DIR RPR ANEURYSM ABDOMINAL AORTA 04/20/2011 [place] EYLEA (AFLIBERCEPT) 2MG INTRAVITREAL INJECTION OD [...] Age of Onset Heart Mother age 60 [place], smoker None Father age 77 MVA Cataract [...] - ICD9: 362.52, ICD10: H35.3230 F/u with Cashier Ticket Selling 11. Screening for prostate cancer - ICD9: [...] with the plan. Robel Onofre DO [address] [place] [address] [facility] History and physical note * Luiza Rivers APRN.PMO CONSULTANT - 05/31/2022 8:55 AM EDT HISTORY AND [...] fevers. Neurological: No history of TIA's, stroke, INSERT OPERATOR tumor, impaired sensorium, hemiplegia, paraplegia orquadraplegia. No neurological symptoms or problems. Respiratory: No history of current cough or dyspnea, or pneumonia in the past 6 weeks. No history of respiratory/pulmonary symptoms or problems. Cardiovascular: Positive for: abdominal aortic aneurysm (s/p repair), anticoagulation therapy (ASA, Plavix), CAD, hyperlipidemia (on rx), hypertension (on rx) and open heart surgery Patient's last office visit with wafer mounter, [facility], The following tests and/or procedures were performed: cardiac stents. Negative for: arrhythmia, atrial fibrillation, chest pain, CHF, congenital heart defect, DVT/PE, recent VT, murmur/valvular heart disease and valve surgery. GI: [...] 07/28/07 DIR RPR ANEURYSM ABDOMINAL AORTA 04/20/2011 [facility] EYLEA (AFLIBERCEPT) 2MG INTRAVITREAL INJECTION OD (RIGHT [...] Age of Onset Heart Mother age 60 [place], smoker None Father age 77 MVA Cataract [...] or any previous visit (from the past 28907 hour(s)). Assessment BPH associated with nocturia Assessment: controlled on rx Coronary artery disease due to lipid rich plaque Assessment: s/p CABG and stent, daily statin, BB, and ASA therapy. Also on Plavix, AC letter faxed to wafer mounter office. Follows [facility], last OV 09/2021 scanned into [facility]. Denies CP, palpitations or SOB Familial hypercholesterolemia [...] have a large neck STOP-Bang Score: 3 [id number] Score: Age: >=75 Sex: male CHF history: No Hypertension history: Yes Stroke/TIA/thromboembolism history: No Vascular disease history: Yes Diabetes history: No [id number] Score: 4 ARISCAT Score: Age: >80 Preoperative [...] 8:55 AM PAGER/CONTACT #: [facility] Instructions* Patient Instructions* Luiza Rivers APRN.CNP - 05/31/2022 8:55 AM EDT PATIENT PREOPERATIVE INSTRUCTIONS Florencio Tesfaye MD has scheduled you for your procedure at this surgery center: [facility]: [phone] -- [address] [address]. Please read below carefully for your personalized [...] Procedures: - YOU MUST HAVE A RESPONSIBLE OPEN TENTER OPERATOR TAKE YOU HOME. A BARREL INSPECTOR TIGHT OR WASHER ASSEMBLER CANNOT BE MADE A RESPONSIBLE OPEN TENTER OPERATOR. - We recommend that a responsible [...] Advance Directive, please fax a copy to [phone] or email to for it to be [...] day. Luiza Rivers APRN.LEO documented in [facility] History of Present illness Narrative* Florencio Tesfaye MD - 05/27/2022 7:54 AM EDT HISTORY AND PHYSICAL Todd Matamoors 1940 REFERRING PHYSICIAN: Self CHIEF COMPLAINT: Follow [...] Macular degeneration NSTEMI (non-ST elevated myocardial infarction) ([facility]) 10/28/2019 Osteoarthritis of left hip Paresthesia PMH [...] 07/28/07 DIR RPR ANEURYSM ABDOMINAL AORTA 04/20/2011 [place] EYLEA (AFLIBERCEPT) 2MG INTRAVITREAL INJECTION OD [...] Age of Onset Heart Mother age 60 [place], smoker None Father age 77 MVA Cataract [...] benefits, anticipated outcomesand possible complications were mentioned. [facility] that all hernia repair surgery has [...] right inguinal hernia repair with mesh - [id number] Anticipated Anesthetic: General Patient weight: Blood pressure 133/63, pulse (!) 59, temperature 36.4 C (97.6 F), weight 82 kg (180lb 12.8 oz), SpO2 96 %. BMI: Body mass index is 28.32 kg/m . Planned antibiotic: Ancef 2gm IVPB detonator maker to OR SCDs needed - Yes Return [...] Florencio Tesfaye III, MD documented in this encounter[facility] Miscellaneous Notes* Telephone Encounter - Analilia Pedersen [...] patient. Delma Alatorre Pss documented in this encounterPrem[facility] Health [facility]06-27-2022 Miscellaneous Notes* Telephone Encounter - NATHAN Myers [...] notify patient. Haritha Arias documented in this encounterPremier Health [facility]06-10-2022 Miscellaneous Notes* Telephone Encounter - Marylu Jolly Ma - 02/01/2022 10:45 AM EDT Don't see Zulema number in chart. Pt informed, verbalized understanding. Pt reports he is feeling much better. No more abdominal pain. Pt informed office will call Jadyn (daughter) to relay results to her as well. Jaydn notified and verbalized understanding Marylu Jolly Ma [...] week. Bessie Ambrocio APRN.LEO documented in this encounterPremier Health [facility]06-09-2022 Miscellaneous Notes* Telephone Encounter - Bessie Ambrocio [...] declined. Shahla Sofia RN documented in this encounterPremier Health [facility]05-20-2022 History of Present illness Narrative* Florencio Tesfaye [...] Date Acute bronchitis Aneurysm of abdominal aorta ([facility]) 04/20/2011. Lower abdomen. BPH (benign prostatic hyperplasia) CAD (coronary artery disease) Diverticulosis of colon (without mention of hemorrhage) GERD (gastroesophageal reflux disease) Hyperlipidemia Hypertension Internal hemorrhoids without mention of complication Macular degeneration NSTEMI (non-ST elevated myocardial infarction) ([facility]) 10/28/2019 Osteoarthritis of left hip Paresthesia PMH [...] 07/28/07 DIR RPR ANEURYSM ABDOMINAL AORTA 04/20/2011 [place] EYLEA (AFLIBERCEPT) 2MG INTRAVITREAL INJECTION OD [...] Age of Onset Heart Mother age 60 [place], smoker None Father age 77 MVA Cataract Father No Known Problems Sister No Known Problems Brother No Known Problems Sister No Known Problems Sister No Known Problems Sister Coronary Artery Disease Brother Coronary Artery Disease Brother REVIEW OF SYMPTOMS: The review of systems data was entered by the nurse and reviewed by md Nursing Notes: Bhavna Anne RN 01/11/2022 8:09 [...] Florencio Tesfaye III, MD documented in this encounterPremier [facility]05-20-2022 Nurse Note* Bhavna Anne RN - 01/11/2022 [...] 07/28/2007 Bhavna Anne RN documented in this encounterPremier Health [facility]05-12-2022 Miscellaneous Notes* Telephone Encounter - Bessie Ambrocio [...] Thanks Robel Onofre DO documented in this encounterPremier Health [facility]05-05-2022 Miscellaneous Notes* Telephone Encounter - Jessica Moon Ma - 12/27/2021 2:48 PM EDT Faxed to [facility]. * Telephone Encounter - Bessie Ambrocio APRN.CNP - 12/27/2021 2:44 PM EDT New order placed per below request. Bessie Ambrocio APRN.CNP * Telephone Encounter - Torie King LPN - 12/27/2021 1:38 PM EDT [facility] biodiesel production technician Ju is calling to report if you are ruling out inguinal hernia the do not do this with an ultrasound at [facility]. It would be CT abd/pelvis with contrast. You can fax them a new order for CT. documented in this encounterPremier Health [facility]05-05-2022 Miscellaneous Notes* Telephone Encounter - Nury Levy RN - 12/27/2021 8:13 AM EDT Patient's daughter calls and is requesting that ultrasound orders be faxed to [facility]. Orders faxed as requested. Nury Levy RN documented in this encounterPremier Health [facility]05-04-2022 History of Present illness Narrative* Bessie Ambrocio [...] Macular degeneration NSTEMI (non-ST elevated myocardial infarction) ([facility]) 10/28/2019 Osteoarthritis of left hip Paresthesia PMH [...] 07/28/07 DIR RPR ANEURYSM ABDOMINAL AORTA 04/20/2011 [facility] EYLEA (AFLIBERCEPT) 2MG INTRAVITREAL INJECTION OD (RIGHT [...] Age of Onset Heart Mother age 60 [place], smoker None Father age 77 MVA Cataract [...] LTD Bessie Ambrocio APRN.CNP documented in this encounterPremier Health [facility]05-04-2022 Miscellaneous Notes* Telephone Encounter - Bessie Ambrocio [...] to this. Scheduled same day appt with Supervisor [employer] for evaluation. documented in this encounterPremier Health [facility]04-20-2022 History of Present illness Narrative* Robel Onofre, [...] Macular degeneration NSTEMI (non-ST elevated myocardial infarction) ([facility]) 10/28/2019 Osteoarthritis of left hip Paresthesia PMH [...] 07/28/07 DIR RPR ANEURYSM ABDOMINAL AORTA 04/20/2011 [facility] EYLEA (AFLIBERCEPT) 2MG INTRAVITREAL INJECTION OD (RIGHT [...] 414.3, ICD10: I25.10, I25.83 - f/u with Office Secretary as scheduled. stable 6. Hypertension, essential - [...] See patient instructions. Robel Onofre DO [address] [place] [address] documented in this encounterPremier Health [facility]01-29-1997 Evaluation note* Diagnosis Onset Date Resolution Status Atherosclerosis of coronary artery bypass graft(s) without angina pectoris chronic Essential (primary) hypertension chronic Hyperlipemia, mixed chronic S/P CABG x 3 September 22, 1996 chronic Stented coronary artery October 28, 2019 [facility] Work Phone: Evaluation note* Diagnosis Presence of [...] hypertension Actinic keratosis [facility]* Diagnosis Right inguinal pain- Primary Abdominal pain, right lower quadrant Inguinal bulge Abdominal or pelvic swelling, mass or lump, unspecified site documented in this encounter [facility]* Diagnosis Right groin pain- Primary Abdominal pain, right lower quadrant Localized enlarged lymph nodes Enlargement of lymph nodes documented in this [facility]* Diagnosis Bilateral inguinal hernia without obstruction or gangrene, recurrence not specified- Primary documented in this [facility]* Diagnosis Bilateral inguinal hernia without obstruction or gangrene, recurrence not specified documented [facility] this [facility]* Diagnosis Vitamin D deficiency- Primary Unspecified vitamin D deficiency Vitamin B12 deficiency Other B-complex deficiencies Elevated serum creatinine Other nonspecific findings on examination of blood documented in this encounter [facility] note* Diagnosis Right inguinal hernia- Primary Inguinal hernia without mention of obstruction or gangrene, unilateral or unspecified, (not specified as recurrent) Right inguinal hernia Inguinal hernia without mention of obstruction or gangrene, unilateral or unspecified, (not specified as recurrent) documented in this encounter [facility] note* Diagnosis Pre-operative examination- Primary Preoperative examination, [...] specified as recurrent) documented in this encounter [facility]* Diagnosis Hypertension, essential- Primary Unspecified essential [...] specified as recurrent) documented in this [facility]* Diagnosis Right inguinal hernia- Primary Inguinal hernia without mention of obstruction or gangrene, unilateral or unspecified, (not specified as recurrent) Right inguinal hernia Inguinal hernia without mention of obstruction or gangrene, unilateral or unspecified, (not specified as recurrent) documented in this encounter [facility]* Diagnosis Onset Date Resolution Status Upper GI bleed acute [facility] Work Phone: Evaluation note* Diagnosis Onset Date Resolution Status Acute blood loss anemia acut e PEPE (acute kidney injury) ac mary's igloo Erosive esophagitis acute Leukocytosis acute Status post bilateral inguinal hernia repair acute Upper GI bleed acute Urinary retention acute [facility] Work Phone: Evaluation note* Diagnosis Hypotension, unspecified hypotension type- Primary documented in this encounter [facility]* Diagnosis Hypertension, essential- Primary Unspecified essential hypertension 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 documented in this encounter [facility]* Diagnosis Vitamin D deficiency Unspecified vitamin D deficiency Vitamin B12 deficiency Other B-complex deficiencies documented in this encounter [facility] note* Diagnosis Vitamin D deficiency- Primary Unspecified [...] deficiency anemia type documented in this encounter [facility] note* Diagnosis Macular degeneration of both eyes, unspecified type- Primary [facility] Vitamin D deficiency Unspecified vitamin D deficiency Vitamin B12 deficiency Other B-complex deficiencies documented in this encounter [facility]* Diagnosis Hypertension, essential- Primary Unspecified essential [...] neoplasm of prostate documented in this encounter [facility]* Diagnosis Other eczema documented in this encounter [facility]Evaluation [facility]* Diagnosis Vitamin D deficiency Unspecified vitamin D deficiency Vitamin B12 deficiency Other B-complex deficiencies documented in this encounter [facility]* Diagnosis Vitamin D deficiency Unspecified vitamin D deficiency Vitamin B12 deficiency Other B-complex deficiencies [facility] Vitamin D deficiency Unspecified vitamin D deficiency documented in this encounter [facility]* Diagnosis Hypertension, essential- Primary Unspecified essential [...] unspecified Actinic keratosis documented in this encounter [facility]* Diagnosis Elevated alkaline phosphatase level- Primary Other nonspecific abnormal serum enzyme levels Elevated serum creatinine Other nonspecific findings on examination of blood Thrombocytopenia (HCC) Thrombocytopenia, unspecified documented in this encounter [facility]Evaluation [facility]* Diagnosis Feelings of worthlessness- Primary Stress Other psychological or physical stress, not elsewhere classified Lack of motivation Other depression Macular degeneration of both eyes, unspecified type Bilateral hearing loss, unspecified hearing loss type documented in this encounter [facility]* Diagnosis Feelings of worthlessness- Primary Stress Other psychological or physical stress, not elsewhere classified Lack of motivation Other depression documented in this encounter [facility]* Diagnosis Pre-operative examination- Primary Preoperative examination, [...] motivation Other depression documented in this encounter [facility]* Diagnosis Pre-operative examination- Primary Preoperative examination, [...] glucose Other depression documented in this encounter [facility] note* Diagnosis Pre-operative examination- Primary Preoperative examination, [...] Other B-complex deficiencies documented in this encounter [facility] note* Diagnosis Pre-operative examination- Primary Preoperative examination, [...] depression documented in this encounter [facility] note* Diagnosis Pre-operative examination- Primary Preoperative examination, [...] vitamin D deficiency documented in this encounter [facility] noteNo assessment information availableWMetroHealth [facility] Work Phone: Evaluation note* Diagnosis [...] Abnormality of gait documented in this encounter [facility] note* Diagnosis Pre-operative examination- Primary Preoperative examination, [...] vertigo), unspecified laterality documented in this encounter [facility]* Diagnosis Pre-operative examination- Primary Preoperative examination, [...] Other B-complex deficiencies documented in this encounter [facility]* Diagnosis Pre-operative examination- Primary Preoperative examination, [...] motivation Other depression [facility] Additional Instructions CT angiogram head and neck only mild plaque noted right internal carotid. No other acute findings. This is not causing her symptoms. EKG labs stable. Use meclizine as needed. Follow-up with her doctor. If Symptoms recur or worsens, return to ED for reevaluation.[facility] Work Phone: Reason for referral (narrative)* Diagnostic Procedure Only (Urgent) - Pending Review Specialty Diagnoses / Procedures Referred By Bala sheridan Referred To Contact US IMAGING Diagnoses Right inguinal pain Inguinal bulge Procedures US PELVIS LTD US PELVIC NONOBSTETRIC IMAGE DCMTN LIMITED/F/U Bessie Ambrocio, GIA.PMO CONSULTANT [address] [place] [address] Us Imaging Referral ID Status Reason Start Date Expiration Date Visits Requested Visits Authorized [id number] Pending Review Auto-Generat ed Referral 12/26/2021 01/25/2023 1 1 [facility] NorthReason for referral (narrative)No reason for referral information availableWMetroHealth [facility] Center Work Phone: Instructions Instruction Description Start Date Patient advised to follow-up with Primary Care Physician for BMI management. 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 Expl anation ACP-Advance Directive ACP-Power of Oil Heater Installer Advance Directive Response Recorded Date/ Time Living Will Yes November 04, 2019 8:26am Power of Oil Heater Installer Yes November 03 8:26am Advance Directive Response Recorded Date/ Time Name of Medical Power of Oil Heater Installer Thierno Matamoros June 13, 2022 5:30pm Living Will Yes June 13 5:30pm Power of Oil Heater Installer Yes June 13, 2022 5:30pm Advance Directive Response Recorded Date/ Time Name of Medical Power of Oil Heater Installer Jadny Peralta, Thierno Matamoros and Shy Bernstein June 13, 2022 8:21pm Living Will Yes June 13 8:21pm Power of Oil Heater Installer Yes June 13, 2022 8:21pm Advance Directive Response Recorded Date/ Time Do you have a Healthcare Power of Oil Heater Installer? No December 14, 2024 12:42pm Advance Directive Response Recorded Date/ Time Living Will Yes June 13 8:21pm Do you have a Healthcare Power of Oil Heater Installer? Yes June 13, 2022 8:21pm Do you have a Healthcare Power of Oil Heater Installer? 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 [place] [address] Specialty Diagnoses / Procedures Referred By Bala sheridan Referred To Contact CT IMAGING Diagnoses Localized enlarged lymph nodes Right groin pain Procedures CT ABD/PEL W IVCON CT ABD & PELVIS W/CONTRAST Robel Onofre, DO [address] [place] [address] Ct Imaging Referral ID Status Reason Start Date Expiration Date Visits Requested Visits Authorized [id number] Pending Review Auto-Generat ed Referral 12/27/2021 01/26/2023 1 1 Specialty Diagnoses / Procedures Referred By Bala sheridan Referred To Contact General Surgery Diagnoses Bilateral inguinal hernia without obstruction or gangrene, recurrence not specified Procedures CONSULT TO GENERAL SURGERY OFFICE/OUTPATIENT [facility] 60-74 MINUTES Robel Onofre, DO [address] [place] [address] Referral ID Status Reason Start Date Expiration Date Visits Requested Visits Authorized [id number] Authorized PCP Requested Referral 01/02/2022 01/02/2023 1 [...] section and content) DATE CREATED AUTHOR 06/22/2021 [facility] DATE CREATED AUTHOR AUTHOR'S ORGANIZ ATION 06/17/2022 [facility] DATE CREATED AUTHOR AUTHOR'S ORGANIZ ATION 06/27/2025 [facility] DATE CREATED AUTHOR AUTHOR'S ORGANIZ ATION 06/28/2025 [facility] DATE CREATED AUTHOR AUTHOR'S ORGANIZ ATION 07/01/2025 [facility] Source Comments (unrecognize d section and content) In the event this informatio n is protected by the Federal Confidentiality of Alcohol and Drug Abuse Patient Records regulations: The Federal rules restrict any use of the information to criminally investigate or prosecute any alcohol or drug abuse patient.[facility] NorthIn the event this information is protected by the Federal Confidentiality of Alcohol and Drug Abuse Patient Records regulations: The Federal rules restrict any use of the information to criminally investigate or prosecute any alcohol or drug abuse patient.[facility] NorthIn the event this information is protected by the Federal Confidentiality of Alcohol and Drug Abuse Patient Records regulations: The Federal rules restrict any use of the information to criminally investigate or prosecute any alcohol or drug abuse patient.[facility] NorthIn the event this information is protected by the Federal Confidentiality of Alcohol and Drug Abuse Patient Records regulations: The Federal rules restrict any use of the information to criminally investigate or prosecute any alcohol or drug abuse patient.[facility] NorthIn the event this information is protected by the Federal Confidentiality of Alcohol and Drug Abuse Patient Records regulations: The Federal rules restrict any use of the information to criminally investigate or prosecute any alcohol or drug abuse patient.[facility] NorthIn the event this information is protected by the Federal Confidentiality of Alcohol and Drug Abuse Patient Records regulations: The Federal rules restrict any use of the information to criminally investigate or prosecute any alcohol or drug abuse patient.[facility] NorthIn the event this information is protected by the Federal Confidentiality of Alcohol and Drug Abuse Patient Records regulations: The Federal rules restrict any use of the information to criminally investigate or prosecute any alcohol or drug abuse patient.[facility] NorthIn the event this information is protected by the Federal Confidentiality of Alcohol and Drug Abuse Patient Records regulations: The Federal rules restrict any use of the information to criminally investigate or prosecute any alcohol or drug abuse patient.[facility] NorthIn the event this information is protected by the Federal Confidentiality of Alcohol and Drug Abuse Patient Records regulations: The Federal rules restrict any use of the information to criminally investigate or prosecute any alcohol or drug abuse patient.[facility] NorthIn the event this information is protected by the Federal Confidentiality of Alcohol and Drug Abuse Patient Records regulations: The Federal rules restrict any use of the information to criminally investigate or prosecute any alcohol or drug abuse patient.[facility] NorthIn the event this information is protected by the Federal Confidentiality of Alcohol and Drug Abuse Patient Records regulations: The Federal rules restrict any use of the information to criminally investigate or prosecute any alcohol or drug abuse patient.[facility] NorthIn the event this information is protected by the Federal Confidentiality of Alcohol and Drug Abuse Patient Records regulations: The Federal rules restrict any use of the information to criminally investigate or prosecute any alcohol or drug abuse patient.[facility] NorthIn the event this information is protected by the Federal Confidentiality of Alcohol and Drug Abuse Patient Records regulations: The Federal rules restrict any use of the information to criminally investigate or prosecute any alcohol or drug abuse patient.[facility] NorthIn the event this information is protected by the Federal Confidentiality of Alcohol and Drug Abuse Patient Records regulations: The Federal rules restrict any use of the information to criminally investigate or prosecute any alcohol or drug abuse patient.[facility] NorthIn the event this information is protected by the Federal Confidentiality of Alcohol and Drug Abuse Patient Records regulations: The Federal rules restrict any use of the information to criminally investigate or prosecute any alcohol or drug abuse patient.[facility] NorthIn the event this information is protected by the Federal Confidentiality of Alcohol and Drug Abuse Patient Records regulations: The Federal rules restrict any use of the information to criminally investigate or prosecute any alcohol or drug abuse patient.[facility] NorthIn the event this information is protected by the Federal Confidentiality of Alcohol and Drug Abuse Patient Records regulations: The Federal rules restrict any use of the information to criminally investigate or prosecute any alcohol or drug abuse patient.[facility] NorthIn the event this information is protected by the Federal Confidentiality of Alcohol and Drug Abuse Patient Records regulations: The Federal rules restrict any use of the information to criminally investigate or prosecute any alcohol or drug abuse patient.[facility] NorthIn the event this information is protected by the Federal Confidentiality of Alcohol and Drug Abuse Patient Records regulations: The Federal rules restrict any use of the information to criminally investigate or prosecute any alcohol or drug abuse patient.[facility] NorthIn the event this information is protected by the Federal Confidentiality of Alcohol and Drug Abuse Patient Records regulations: The Federal rules restrict any use of the information to criminally investigate or prosecute any alcohol or drug abuse patient.[facility] NorthIn the event this information is protected by the Federal Confidentiality of Alcohol and Drug Abuse Patient Records regulations: The Federal rules restrict any use of the information to criminally investigate or prosecute any alcohol or drug abuse patient.[facility] NorthIn the event this information is protected by the Federal Confidentiality of Alcohol and Drug Abuse Patient Records regulations: The Federal rules restrict any use of the information to criminally investigate or prosecute any alcohol or drug abuse patient.[facility] NorthIn the event this information is protected by the Federal Confidentiality of Alcohol and Drug Abuse Patient Records regulations: The Federal rules restrict any use of the information to criminally investigate or prosecute any alcohol or drug abuse patient.[facility] NorthIn the event this information is protected by the Federal Confidentiality of Alcohol and Drug Abuse Patient Records regulations: The Federal rules restrict any use of the information to criminally investigate or prosecute any alcohol or drug abuse patient.[facility] NorthIn the event this information is protected by the Federal Confidentiality of Alcohol and Drug Abuse Patient Records regulations: The Federal rules restrict any use of the information to criminally investigate or prosecute any alcohol or drug abuse patient.[facility] NorthIn the event this information is protected by the Federal Confidentiality of Alcohol and Drug Abuse Patient Records regulations: The Federal rules restrict any use of the information to criminally investigate or prosecute any alcohol or drug abuse patient.[facility] NorthIn the event this information is protected by the Federal Confidentiality of Alcohol and Drug Abuse Patient Records regulations: The Federal rules restrict any use of the information to criminally investigate or prosecute any alcohol or drug abuse patient.[facility] NorthIn the event this information is protected by the Federal Confidentiality of Alcohol and Drug Abuse Patient Records regulations: The Federal rules restrict any use of the information to criminally investigate or prosecute any alcohol or drug abuse patient.[facility] NorthIn the event this information is protected by the Federal Confidentiality of Alcohol and Drug Abuse Patient Records regulations: The Federal rules restrict any use of the information to criminally investigate or prosecute any alcohol or drug abuse patient.[facility] NorthIn the event this information is protected by the Federal Confidentiality of Alcohol and Drug Abuse Patient Records regulations: The Federal rules restrict any use of the information to criminally investigate or prosecute any alcohol or drug abuse patient.[facility] NorthIn the event this information is protected by the Federal Confidentiality of Alcohol and Drug Abuse Patient Records regulations: The Federal rules restrict any use of the information to criminally investigate or prosecute any alcohol or drug abuse patient.[facility] NorthIn the event this information is protected by the Federal Confidentiality of Alcohol and Drug Abuse Patient Records regulations: The Federal rules restrict any use of the information to criminally investigate or prosecute any alcohol or drug abuse patient.[facility] NorthIn the event this information is protected by the Federal Confidentiality of Alcohol and Drug Abuse Patient Records regulations: The Federal rules restrict any use of the information to criminally investigate or prosecute any alcohol or drug abuse patient.[facility] NorthIn the event this information is protected by the Federal Confidentiality of Alcohol and Drug Abuse Patient Records regulations: The Federal rules restrict any use of the information to criminally investigate or prosecute any alcohol or drug abuse patient.[facility] NorthIn the event this information is protected by the Federal Confidentiality of Alcohol and Drug Abuse Patient Records regulations: The Federal rules restrict any use of the information to criminally investigate or prosecute any alcohol or drug abuse patient.[facility] NorthIn the event this information is protected by the Federal Confidentiality of Alcohol and Drug Abuse Patient Records regulations: The Federal rules restrict any use of the information to criminally investigate or prosecute any alcohol or drug abuse patient.[facility] NorthIn the event this information is protected by the Federal Confidentiality of Alcohol and Drug Abuse Patient Records regulations: The Federal rules restrict any use of the information to criminally investigate or prosecute any alcohol or drug abuse patient.[facility] NorthIn the event this information is protected by the Federal Confidentiality of Alcohol and Drug Abuse Patient Records regulations: The Federal rules restrict any use of the information to criminally investigate or prosecute any alcohol or drug abuse patient.[facility] NorthIn the event this information is protected by the Federal Confidentiality of Alcohol and Drug Abuse Patient Records regulations: The Federal rules restrict any use of the information to criminally investigate or prosecute any alcohol or drug abuse patient.[facility] NorthIn the event this information is protected by the Federal Confidentiality of Alcohol and Drug Abuse Patient Records regulations: The Federal rules restrict any use of the information to criminally investigate or prosecute any alcohol or drug abuse patient.[facility] NorthIn the event this information is protected by the Federal Confidentiality of Alcohol and Drug Abuse Patient Records regulations: The Federal rules restrict any use of the information to criminally investigate or prosecute any alcohol or drug abuse patient.[facility] NorthIn the event this information is protected by the Federal Confidentiality of Alcohol and Drug Abuse Patient Records regulations: The Federal rules restrict any use of the information to criminally investigate or prosecute any alcohol or drug abuse patient.[facility] NorthIn the event this information is protected by the Federal Confidentiality of Alcohol and Drug Abuse Patient Records regulations: The Federal rules restrict any use of the information to criminally investigate or prosecute any alcohol or drug abuse patient.[facility] NorthIn the event this information is protected by the Federal Confidentiality of Alcohol and Drug Abuse Patient Records regulations: The Federal rules restrict any use of the information to criminally investigate or prosecute any alcohol or drug abuse patient.[facility] NorthIn the event this information is protected by the Federal Confidentiality of Alcohol and Drug Abuse Patient Records regulations: The Federal rules restrict any use of the information to criminally investigate or prosecute any alcohol or drug abuse patient.[facility] NorthIn the event this information is protected by the Federal Confidentiality of Alcohol and Drug Abuse Patient Records regulations: The Federal rules restrict any use of the information to criminally investigate or prosecute any alcohol or drug abuse patient.[facility] NorthIn the event this information is protected by the Federal Confidentiality of Alcohol and Drug Abuse Patient Records regulations: The Federal rules restrict any use of the information to criminally investigate or prosecute any alcohol or drug abuse patient.[facility] NorthIn the event this information is protected by the Federal Confidentiality of Alcohol and Drug Abuse Patient Records regulations: The Federal rules restrict any use of the information to criminally investigate or prosecute any alcohol or drug abuse patient.[facility] NorthIn the event this information is protected by the Federal Confidentiality of Alcohol and Drug Abuse Patient Records regulations: The Federal rules restrict any use of the information to criminally investigate or prosecute any alcohol or drug abuse patient.[facility] NorthIn the event this information is protected by the Federal Confidentiality of Alcohol and Drug Abuse Patient Records regulations: The Federal rules restrict any use of the information to criminally investigate or prosecute any alcohol or drug abuse patient.[facility] NorthIn the event this information is protected by the Federal Confidentiality of Alcohol and Drug Abuse Patient Records regulations: The Federal rules restrict any use of the information to criminally investigate or prosecute any alcohol or drug abuse patient.[facility] NorthIn the event this information is protected by the Federal Confidentiality of Alcohol and Drug Abuse Patient Records regulations: The Federal rules restrict any use of the information to criminally investigate or prosecute any alcohol or drug abuse patient.[facility] NorthIn the event this information is protected by the Federal Confidentiality of Alcohol and Drug Abuse Patient Records regulations: The Federal rules restrict any use of the information to criminally investigate or prosecute any alcohol or drug abuse patient.[facility] NorthIn the event this information is protected by the Federal Confidentiality of Alcohol and Drug Abuse Patient Records regulations: The Federal rules restrict any use of the information to criminally investigate or prosecute any alcohol or drug abuse patient.[facility] NorthIn the event this information is protected by the Federal Confidentiality of Alcohol and Drug Abuse Patient Records regulations: The Federal rules restrict any use of the information to criminally investigate or prosecute any alcohol or drug abuse patient.[facility] NorthIn the event this information is protected by the Federal Confidentiality of Alcohol and Drug Abuse Patient Records regulations: The Federal rules restrict any use of the information to criminally investigate or prosecute any alcohol or drug abuse patient.[facility] NorthIn the event this information is protected by the Federal Confidentiality of Alcohol and Drug Abuse Patient Records regulations: The Federal rules restrict any use of the information to criminally investigate or prosecute any alcohol or drug abuse patient.[facility] NorthIn the event this information is protected by the Federal Confidentiality of Alcohol and Drug Abuse Patient Records regulations: The Federal rules restrict any use of the information to criminally investigate or prosecute any alcohol or drug abuse patient.[facility] NorthIn the event this information is protected by the Federal Confidentiality of Alcohol and Drug Abuse Patient Records regulations: The Federal rules restrict any use of the information to criminally investigate or prosecute any alcohol or drug abuse patient.[facility] NorthIn the event this information is protected by the Federal Confidentiality of Alcohol and Drug Abuse Patient Records regulations: The Federal rules restrict any use of the information to criminally investigate or prosecute any alcohol or drug abuse patient.[facility] NorthIn the event this information is protected by the Federal Confidentiality of Alcohol and Drug Abuse Patient Records regulations: The Federal rules restrict any use of the information to criminally investigate or prosecute any alcohol or drug abuse patient.[facility] NorthIn the event this information is protected by the Federal Confidentiality of Alcohol and Drug Abuse Patient Records regulations: The Federal rules restrict any use of the information to criminally investigate or prosecute any alcohol or drug abuse patient.[facility] NorthIn the event this information is protected by the Federal Confidentiality of Alcohol and Drug Abuse Patient Records regulations: The Federal rules restrict any use of the information to criminally investigate or prosecute any alcohol or drug abuse patient.[facility] NorthIn the event this information is protected by the Federal Confidentiality of Alcohol and Drug Abuse Patient Records regulations: The Federal rules restrict any use of the information to criminally investigate or prosecute any alcohol or drug abuse patient.[facility] NorthIn the event this information is protected by the Federal Confidentiality of Alcohol and Drug Abuse Patient Records regulations: The Federal rules restrict any use of the information to criminally investigate or prosecute any alcohol or drug abuse patient.[facility] Reason for Visit (unrecogniz ed section and content) Reason Comments 6 Month Exam Reason Comments Right groin pain Reason Comments hernia right groin area Reason Comments Faxed orders Reason Comments Change Of Order [facility] radiology dept. Reason Comments Results Appointment Reason Comments Consult bilateral inguinal h ernia Specialty Diagnoses / Procedures Referred By Contac t Referred To Contact General Surgery Diagnoses Bilateral inguinal hernia without obstruction or gangrene, recurrence not specified Procedures CONSULT TO GENERAL SURGERY OFFICE/OUTPATIENT NEW HIGH MDM 60-74 MINUTES Robel Onofre, DO [address] [place] [address] Referral ID Status Reason Start Date Expiration Date V isits Requested Visits Authorized [id number] Closed PCP Requested Referral 01/02/2022 01/02/2023 1 [...] INGUINAL HERNIA W/ MESH [facility] [address] [place] [address] Referral ID Status Reason Start Date Expiration Date Visits Re quested Visits Authorized [id number] 1 1 Reason Comments Orders Reason Comments [...] Care Teams (unrecognized sec tion and content) [employer] Relationship Specialty Start Date End Date Robel Onofre, DO [address] [place] [address] PCP - General Family Practice 10/01/19 [employer] Relationship Specialty Start Date End Date Robel Onofre, DO [address] [place] [address] PCP - General Family Practice 10/01/19 [employer] Relationship Specialty Start Date End Date Robel Onofre, DO [address] [place] [address] PCP - General Family Practice 10/01/19 [employer] Relationship Specialty Start Date End Date Robel Onofre, DO [address] [place] [address] PCP - General Family Practice 10/01/19 [employer] Relationship Specialty Start Date End Date Robel Onofre, DO [address] [place] [address] PCP - General Family Practice 10/01/19 [employer] Relationship Specialty Start Date End Date Robel Onofre, DO [address] [facility] [place] [address] PCP - General Family Practice 10/01/19 [employer] Relationship Specialty Start Date End Date Robel Onofre, DO [address] [place] [address] PCP - General Family Practice 10/01/19 [employer] Relationship Specialty Start Date End Date Robel Onofre, DO [address] [place] [address] PCP - General Family Practice 10/01/19 [employer] Relationship Specialty Start Date End Date Robel Onofre, DO [address] [place] [address] PCP - General Family Medicine 10/01/19 [employer] Relationship Specialty Start Date End Date Robel Onofre, DO [address] [place] [address] PCP - General Family Medicine 10/01/19 [employer] Relationship Specialty Start Date End Date Robel Onofre, DO [address] [place] [address] PCP - General Family Medicine 10/01/19 [employer] Relationship Specialty Start Date End Date Robel Onofre, DO [address] [place] [address] PCP - General Family Medicine 10/01/19 [employer] Relationship Specialty Start Date End Date Robel Onofre, DO [address] [place] [address] PCP - General Family Medicine 10/01/19 [employer] Relationship Specialty Start Date End Date Robel Onofre, DO [address] [place] [address] PCP - General Family Medicine 10/01/19 [employer] Relationship Specialty Start Date End Date Robel Onofre, DO [address] [place] [address] PCP - General Family Medicine 10/01/19 [employer] Relationship Specialty Start Date End Date Robel Onofre, DO [address] [place] [address] PCP - General Family Medicine 10/01/19 [employer] Relationship Specialty Start Date End Date Robel Onofre, DO [address] [place] [address] PCP - General Family Medicine 10/01/19 [employer] Relationship Specialty Start Date End Date Robel Onofre, DO [address] [place] [address] PCP - General Family Medicine 10/01/19 [employer] Relationship Specialty Start Date End Date Robel Onofre, DO [address] [place] [address] PCP - General Family Medicine 10/01/19 [employer] Relationship Specialty Start Date End Date Robel Onofre, DO [address] [place] [address] PCP - General Family Medicine 10/01/19 [employer] Relationship Specialty Start Date End Date Robel Onofre, DO [address] [place] [address] PCP - General Family Medicine 10/01/19 [employer] Relationship Specialty Start Date End Date Robel Onofre DO [address] [place] [address] PCP - General Family Medicine 10/01/19 [employer] Relationship Specialty Start Date End Date Robel Onofre DO [address] [place] [address] PCP - General Family Medicine 10/01/19 [employer] Relationship Specialty Start Date End Date Robel Onofre DO [address] [facility] [place] [address] PCP - General Family Medicine 10/01/19 [employer] Relationship Specialty Start Date End Date Robel Onofre, [address] [facility] [place] [address] PCP - General Family Medicine 10/01/19 [employer] Relationship Specialty Start Date End Date Robel Onofre, [address] [facility] [place] [address] PCP - General Family Medicine 10/01/19 [employer] Relationship Specialty Start Date End Date Robel Onofre, [address] [facility] [place] [address] PCP - General Family Medicine 10/01/19 [employer] Relationship Specialty Start Date End Date Robel Onofre, [address] [facility] [place] [address] PCP - General Family Medicine 10/01/19 [employer] Relationship Specialty Start Date End Date Robel Onofre, [address] [place] [address] PCP - General Family Medicine 10/01/19 [employer] Relationship Specialty Start Date End Date Robel Onofre, [address] [place] [address] PCP - General Family Medicine 10/01/19 [employer] Relationship Specialty Start Date End Date Robel Onofre DO [address] [facility] [place] [address] PCP - General Family Medicine 10/01/19 [employer] Relationship Specialty Start Date End Date Robel Onofre DO [address] [place] [address] PCP - General Family Medicine 10/01/19 [employer] Relationship Specialty Start Date End Date Robel Onofre DO [address] [place] [address] PCP - General Family Medicine 10/01/19 [employer] Relationship Specialty Start Date End Date Robel Onofre DO [address] [place] [address] PCP - General Family Medicine 10/01/19 [employer] Relationship Specialty Start Date End Date Robel Onofre DO [address] [facility] [place] [address] PCP - General Family Medicine 10/01/19 Cat Foote, MANAGER OF [employer] SAL[employer].PMO CONSULTANT [address] [facility] [place] [address] [employer] Coordinator Family Medicine 08/01/24 Bessie Ambrocio, MANAGER OF [employer].PMO CONSULTANT [address] [facility] [place] [address] [employer] Coordinator Family Medicine 08/01/24 [employer] Relationship Specialty Start Date End Date Robel Onofre DO [address] [facility] [place] [address] PCP - General Family Medicine 10/01/19 Cat Foote, MANAGER OF [employer].PMO CONSULTANT [address] [facility] [place] [address] [employer] Coordinator Family Medicine 08/01/24 Bessie Ambrocio MANAGER OF [employer].PMO CONSULTANT [address] [place] [address] [employer] Coordinator Family [facility] 08/01/24 [employer] Relationship Specialty Start Date End Date Robel Onofre DO [address] [facility] [place] [address] PCP - General Family Medicine 10/01/19 Cat Foote, MANAGER OF [employer].PMO CONSULTANT [address] [facility] [place] [address] [employer] Coordinator Family Medicine 08/01/24 Bessie Ambrocio, MANAGER OF [employer] SAL[employer].PMO CONSULTANT [address] [facility] [place] [address] [facility] 08/[facility] [employer] Relationship Specialty Start Date End Date Robel Onofre DO [address] [facility] [place] [address] PCP - General Family Medicine 10/01/19 Cat Foote, MANAGER OF [employer].PMO CONSULTANT [address] [facility] [place] [address] [employer] Coordinator Family Medicine 08/01/24 Bessie Ambrocio, MANAGER OF [employer] SAL[employer].PMO CONSULTANT [address] [facility] [place] [address] [employer] [facility] 08/01/24 [employer] Relationship Specialty Start Date End Date Robel Onofre DO [address] [facility] [place] [address] PCP - General Family Medicine 10/01/19 Bessie Ambrocio, MANAGER OF [employer].PMO CONSULTANT [address] [place] [address] [employer] [facility] 08/01/24 [employer] Relationship Specialty Start Date End Date Robel Onofre DO [address] [place] [address] PCP - General Family Medicine 10/01/19 Cat Foote, MANAGER OF [employer].PMO CONSULTANT [address] [place] [address] [employer] [facility] 08/01/24 11/12/24 Bessie Ambrocio, MANAGER OF [employer].PMO CONSULTANT [address] [place] [address] [facility] 08/01/24 [employer] Relationship Specialty Start Date End Date Robel Onofre DO [address] [place] [address] PCP - General Family Medicine 10/01/19 Bessie Ambrocio, MANAGER OF [employer].PMO CONSULTANT [address] [place] [address] [facility] 08/01/24 Team Status: Active Member Role Status Dates Dr. Robel Onofre DO Primary Care Provider Active Team Status: Inactive Member Role Status Dates Dr. Robel Onofre DO Primary Care Provider Active Start: December 14, 2024 End: December 14, 2024 Dr. Cristobal Mayo DO Emergency Provider Active Start : December 14, 2024 End: December 14, 2024 [employer] Relationship Specialty Start Date End Date Robel Onofre DO [address] [place] [address] PCP - General Family Medicine 10/01/19 Bessie Ambrocio, MANAGER OF [employer].PMO CONSULTANT [address] [place] [address] [employer] Coordinator Family Medicine 08/01/24 [employer] Relationship Specialty Start Date End Date Robel Onofre DO [address] [facility] [place] [address] PCP - General Family Medicine 10/01/19 [facility] MANAGER OF [employer] SAL[employer].PMO CONSULTANT [address] [place] [address] [employer] Coordinator Family [facility] 08/01/24 [employer] Relationship Specialty Start Date End Date Robel Onofre DO [address] [place] [address] PCP - General Family Medicine 10/01/19 [facility] MANAGER OF [employer].PMO CONSULTANT [address] [place] [address] [employer] Coordinator Family [facility] 08/01/24 [employer] Relationship Specialty Start Date End Date Robel Oonfre DO [address] [place] [address] PCP - General Family Medicine 10/01/19 [facility], MANAGER OF [employer].PMO CONSULTANT [address] [place] [address] [employer] Coordinator Family Medicine 08/01/24 Una Mckinley, MANAGER OF [employer].PMO CONSULTANT [address] [place] [address] [employer] Coordinator Family Medicine 02/07/25 Sampler O[employer] Relationship Specialty Start Date End Date Robel Onofre DO [address] [place] [address] PCP - General Family Medicine 10/01/19 Bessie Ambrocio APRN.PMO CONSULTANT [address] [place], [place] [id number] [employer] Coordinator Family Medicine 08/01/24 Una Mckinley, GIA.PMO CONSULTANT [address] [place], [place] [address] [employer] Coordinator Family Medicine 02/07/25 Team Status: Active Member [...] Gross RN)[id number] (Given - Provider: Tamara Stinson APRN.TRAIN CONTROLLER) scopolamine - REMOVE PATCH(Linked Group 1) ONCE, [...] BE BASED ON THE PRIMARY CLINICAL RECORDS. [facility] [employer] [facility]. provides no warranty or guarantee of the accuracy or completeness of information in this document.
[2025-07-29 00:41] LABS: Prothrombin Time (Protime)PT. 15.1 SECONDS (11.7-14.9)
[2025-07-29 00:43] LABS: Partial Thromboplast Time 76.1 Seconds (24.1-36.2)
[2025-07-29 00:45] LABS: Anion Gap 13 (5-15); BUN 24 mg/dL (4-19); BUN/Creat Ratio 19.8 RATIO (10-20); Calcium,Total 9.3 mg/dL (7.6-11.0); Carbon Dioxide 19.4 mmol/L (21.0-32.0); Chloride 104 mmol/L (98-108); Estimated Creatinine Clearance 46.41 ml/min (50-250); Glucose 167 mg/dL (70-99); Potassium 4.0 mmol/L (3.3-5.1)
[2025-07-29 00:49] LABS: Pro- Brain NATRIURETIC PEPTIDE 6585 pg/mL (<=1800); Troponin T High Sensitivity 215 ng/L (<=22)
--- OUTSIDE RECORDS SUMMARY | 2025-07-29 02:15 | XMS RPT_ITS | CCD ---
Author Organization [facility] Inform ion [facility] Care Team Providers Care Nuclear Fuel Enrichment Technician Name Role Phone Tony, Harumi Y Unavailable [...] Provider Dr. Robel Onofre Referring Provider Roof TRAFFIC COUNTER, TRAFFIC COUNTER-C John Murphy Attending Provider Robel Onofre DO [...] Onofre DORobel L Primary Care Provider Foote SIZING END BANDER.ADVANCED PRACTICE NURSE PSYCHOTHERAPIST, Cat [place] Unavailable Cristóbal SIZING END BANDER.ADVANCED PRACTICE NURSE PSYCHOTHERAPIST, Bessie Unavailable Foote SIZING END BANDER.ADVANCED PRACTICE NURSE PSYCHOTHERAPIST, Cat Elaine Unavailable [place] OROZCO, Dr. Huston Primary Care Provider [phone] Maria Esther OROZCO, Dr. Jain Emergency Provider Elías SIZING END BANDER.ADVANCED PRACTICE NURSE PSYCHOTHERAPIST, Una Duvall Unavailable Maria Esther OROZCO, Dr. [...] Primary Care Unavailable ONOFRE, ROBEL Referring Unavailable ONORFE, ROBEL Primary Care Unavailable ONOFRE, ROBEL L [...] TABS One tablet by mouth daily ASPIRIN [id number] Saida Middleton RN Start: 04-17-2007 End: 07-03-2022 [...] TABS One tablet by mouth daily ATENOLOL [id number] Anuradha Hickey Comment on above: Take 1 tablet by triston th once daily. cholecalciferol 0.05 mg oral capsule (20 sources) Vitamin D Start: take 1 capsule by mouth once daily Cholecalciferol, Vitamin D3, (VITAMIN D-3) 50 mcg (2,000 unit) cap Indications: Vitamin D deficiency Take 1 capsule by mouth once daily. 90 capsule 3 11/24/2024 Active Start: 06-13-2022 take 1 capsule by [facility] once daily Cholecalciferol (Vitamin D3) (Vitamin D3) [...] Comment on above: Take 1 capsule by [facility] once daily. finasteride 5 mg oral tablet (20 sources) 5-alpha Reductase Inhibitor Start: 02-24-20 End: 10-08-19 take 1 tablet by mouth once daily Finasteride 5 mg tablet Active 5 mg PO DAILY February 23, 2018 12:00am prostate Comment on above: Take 1 tablet by [facility] once daily. iv contrast (will be [...] TABS One tablet by mouth daily LISINOPRIL [id number] Florencio Ramires MD Start: 07-03-2015 take 1 tablet by triston th twice daily LISINOPRIL 10 MG TABS One tablet by mouth twice daily LISINOPRIL [id number] Saida Middleton RN Start: 01-03-2014 End: 07-03-2015 take 1 tablet by mouth once daily LISINOPRIL 20 MG TABS One tablet by mouth daily LISINOPRIL [id number] Florencio Ramires MD Comment on above: Take [...] MG CAPS 1 tab daily TAMSULOSIN HCL [id number] Mirian Ortiz SIZING END BANDER-ADVANCED PRACTICE NURSE PSYCHOTHERAPIST Start: 05-31-2014 End: 07-03-2015 take 1 tablet by mouth once daily TAMSULOSIN HCL 0.4 MG CAPS One tablet by mouth daily TAMSULOSIN HCL [id number] Florencio Ramires MD Comment on above: Take [...] 1 tablet by triston once daily. Vitamins A,C,Y-Luis-Oujqkq (Preservision Areds) 14,320-226-200 umyw-yz-hgzu capsule (1 source) Start: 2021 take 1 capsule by mouth twice daily Vitamins A,C,I-Ncnd-Euiojp (Preservision Areds) 14,320-226-200 omdv-tl-oqrl capsule Active 1 CAP PO TWICE A [...] as needed for up to 5 days. [id number] 200 actuat albuterol 0.09 mg/actuat metered dose [...] oral tablet (20 sources) Dihydropyridine Calcium Channel Eknan Start: 10-27-19 End: 02-08-20 23 take 1 [...] daily. docusate sodium 50 mg / sennosides, retirement 8.6 mg oral tablet (5 sources) Start: [...] TABS One tablet by mouth daily EZETIMIBE-SIMVASTATIN [id number] Florencio Ramires MD Start: 05-24-2013 take 1 tablet by triston th once daily VYTORIN 10-20 MG TABS One tablet by mout h daily EZETIMIBE-SIMVASTATIN [id number] Florencio Ramires MD Start: 05-24-2013 take 1 tablet by triston th once daily VYTORIN 10-20 MG TABS One tablet by mout h daily EZETIMIBE-SIMVASTATIN 15243119193 Florencio Ramires MD hydroCHLOROthiazide 12.5 mg oral [...] Two tablets by mouth twice daily IBUPROFEN [id number] Saida Middleton RN 24 hr isosorbide mononitrate [...] 1/2 tab twice a day ISOSORBIDE MONONITRATE [id number] Scot D Bernstein DO Start: 11-11-2011 take 1 tablet by triston th twice daily ISOSORBIDE MONONITRATE 10 MG TABS One half Tablet by mouth twice daily ISOSORBIDE MONONITRATE [id number] Florencio Ramires MD Comment on above: Take [...] one tab twice a day MULTIPLE VITAMINS-MINERALS [id number] Scot D Bernstein DO MULTIPLE VITAMINS-MINERALS (1 source) Start: 05-12-2018 PRESERVISION A REDS 2+MULTI VIT CAPS twice a day MULTIPLE VITAMINS-MINERALS [id number] Scot D Bernstein DO 24 hr nitroglycerin 0.1 mg/hr transdermal system (20 sources) Nitrate Vasodilator Start: 12-12-2010 End: 11-11-2011 NITRO-DUR 0.1 MG/HR PT24 Apply every morning & remove at night NITROGLYCERIN [id number] Reinaldo Diaz MD Start: 12-12-2010 NITROGLYCERIN 0.4 MG SUBL 1 tablet under the tongue every 5 minutes times 3 as needed for chest pain. NITROGLYCERIN [id number] Jennifer Tomlin RN Start: 12-12-2010 End: 11-11-2011 NITRO-DUR 0.1 MG/HR PT24 Tammi ly every morning & remove at night NITROGLYCERIN [id number] Reinaldo Diaz MD Start: 12-12-2010 NITRO-DUR 0.1 MG/HR PT24 Apply every morning & remove at night NITROGLYCERIN [id number] Anuradha Hickey KVUCL-7-XBDJ ETHYL ESTERS (20 sources) Start: 12-02-2011 take 2 capsules by mouth twice daily LOVAZA 1 GM CAPS Two capsules by mouth twice daily KQUJE-9-FCBJ ETHYL ESTERS [id number] Jennifer Tomlin RN Start: 12-02-2011 End: 11-11-2012 take 2 capsules by mouth twice daily LOVAZA 1 GM CAPS Two capsules by mouth twice daily FABSG-1-RHUB ETHYL ESTERS [id number] Reinaldo Diaz MD Start: 12-02-2011 End: 11-11-2012 take 2 capsules by mouth twice daily LOVAZA 1 GM CAPS Two capsules by mouth twice daily KIKJX-3-FROR ETHYL ESTERS [id number] Jennifer Tomlin RN Start: 12-02-2011 take 2 capsules by m [facility] twice daily LOVAZA 1 GM CAPS Two capsules by mouth twice daily FXLDX-6-SOKR ETHYL ESTERS [id number] Jennifer Tomlin RN Start: 12-02-2011 End: 11-11-2012 take 2 capsules by mouth twice daily LOVAZA 1 GM CAPS Two capsules by mouth twice daily ZMBPM-2-RYRX ETHYL ESTERS [id number] Reinaldo Diaz MD Start: 12-12-2010 take 1 tablet by triston th twice daily LOVAZA 1 GM CAPS One tablet by mouth twice daily UATOH-8-SVAS ETHYL ESTERS [id number] Anuradha Hickey Start: 12-12-2010 take 1 tablet by triston twice daily LOVAZA 1 GM CAPS One tablet by mouth twice daily IHPCI-7-HBWT ETHYL ESTERS [id number] Anuradha Hickey Start: 12-12-2010 take 1 tablet by triston twice daily LOVAZA 1 GM CAPS One tablet by mouth twice daily UCTYW-1-RGWG ETHYL ESTERS [id number] Anuradha Hickey omeprazole 20 mg delayed release oral capsule (20 sources) Proton Pump Inhibitor Start: 04-03-2017 OMEPRAZO LE 20 MG TBEC one tab a day OMEPRAZOLE [id number] Mandeep Bernstein DO Start: 12-12-2010 End: 12-27-2024 take 1 capsule by mouth once daily Omeprazole 20 MG capsule Discontinued 20 mg PO DAILY November 12, 2017 12:00am April 14, 2020 9:00am ACID IMPLEMENTATION ANALYST Comment on above: Take 20 mg by [...] tablet by mouth at bedtime. PRAVASTATIN SODIUM 74117319179 Florencio Ramires MD ramipril 10 mg oral tablet (20 sources) Angiotensin Converting Enzyme Inhibitor Start: 11-12-19 13 End: 01-04-20 14 take 1 tablet by mouth twice daily ALTACE 10 MG CAPS One tablet by mouth twice daily RAMIPRIL [id number] Reinaldo Diaz MD Start: 11-11-2012 End: 01-03-2014 take 1 tablet by mouth twice daily ALTACE 10 MG CAPS One tablet by mouth twice daily RAMIPRIL [id number] Reinaldo Diaz MD Start: 05-25-2012 take 1 tablet by triston th twice daily ALTACE 5 MG CAPS One tablet by mouth twice daily RAMIPRIL [id number] Reinaldo Diaz MD Start: 11-11-2011 take 1 tablet by triston th twice daily ALTACE 5 MG CAPS One tablet by mouth twice daily RAMIPRIL [id number] Reinaldo Diaz MD Start: 12-12-2010 take 1 tablet by triston th twice daily ALTACE 2.5 MG CAPS One tablet by mouth twice daily RAMIPRIL [id number] Anuradha Hickey Start: 12-12-2010 take 1 tablet by triston th twice daily ALTACE 2.5 MG CAPS One tablet by mouth twice daily RAMIPRIL 55887228661 Anuradha Hickey rosuvastatin calcium 10 mg oral tablet (8 sources) HMG-CoA Reductase Inhibitor Start: 05-28-2013 take 1 tablet by mouth at bedtime CRESTOR 10 MG TABS One tablet by mouth at bedtime. ROSUVASTATIN CALCIUM [id number] Florencio Ramires MD simvastatin 20 mg oral [...] MG TABS 1/2 tab at bedtime SIMVASTATIN [id number] Scot Bekah Bernstein DO Start: 06-04-2013 End: [...] on above: Take 2 tablets by mo [facility] twice daily. Vitamins A,C,G-Ogyt-Golakk (3 sources) Start: 11-12-2017 End: 04-14-2020 take 1 capsule by mouth twice daily Vitamins A,C,S-Obhk-Shiauz Discontinued 1 CAP PO TWICE A DAY November 12, 2017 10:06am April 14, 2020 9:00am Start: 11-12-2017 End: 04-14-2020 take 1 capsule by mouth twice daily Vitamins A,C,O-Gwsp-Jhkzra Discontinued 1 CAP PO TWICE A DAY November 12, 2017 12:00am April 14, 2020 9:00am Vitamins A,C,O-Irvd-Ayiwgq 1 EACH capsule (2 sources) Start: 11-12-2017 End: 04-14-2020 take 1 capsule by mouth twice daily Vitamins A,C,C-Wsbt-Ocbcbq 1 EACH capsule Discontinued 1 NMA PO TWICE A DAY November 12, 2017 12:00am April 14, 2020 9:00am [facility] Start: 11-12-2017 End: 04-14-2020 take 1 capsule by mouth twice daily Vitamins A,C,V-Fdwm-Bzowqe 1 EACH capsule Discontinued 1 NMA PO [...] within filter wire. 10/28/2019 per [facility]N @ [facility] Coronary atherosclerosis and other heart disease [...] (3 sources) Long-term drug therapy; Translations: [Other senior care (current) drug therapy] Onset: 1 12-12-2010 Unclassified [...] within filter wire. 10/28/2019 per [facility] @ [facility] Deficiency and other anemia (20 sources) [...] 04-03-2017 Episodic Other aftercare (5 sources) Other exterminator termite (current) drug therapy; Translations: [Other exterminator termite (current) drug therapy] Onset: 1 12-12-2010 Episodic [...] 06-27-2025 CNTHERAPY OT/PT/Speech Visit (LDSP) TODD MATAMOROS ([id number]) 1940 M Date Time Provider Department 06/27/25 1:00 PM SALLY STEELE LDSP Date Time Provider Department Center 06/27/2025 1:00 PM [id number] STEELE [facility] Reason for Visit: Speech Evaluation [8047] Visit Diagnosis:Oral phase dysphagia [R13.11] Allergies As of Date: 06/27/2025 (No Known Allergies) Date Reviewed: 12/14/2024 Reviewed by: Asha Hernandez, GIA.ADVANCED PRACTICE NURSE PSYCHOTHERAPIST - Fully Assessed Prescriptions as of 06/27/2025 [...] Apply sparingly to area for rash/itching. Normal [facility] Rosanna 06-25-2025 LEON Telephone (FAMPWS) TODD MATAMOROS ([id number]) 1940 M Date Time Provider Department 06/25/25 ROBEL ONOFREPWS During your visit today, we recorded the following information about you: Robel Onofre DO 06/25/2025 7:58 AM Signed Please fax Speech therapy referral to [facility]. This was ordered yesterday DO Jason Hernandez Linda M, LPN 06/25/2025 9:07 AM Signed Order faxed to [facility] as requested. Allergies As of Date: 06/25/2025 (No Known Allergies) Date Reviewed: 12/14/2024 Reviewed by: Asha Hernandez, SIZING END BANDER.ADVANCED PRACTICE NURSE PSYCHOTHERAPIST - Fully Assessed Prescriptions as of 06/25/2025 [...] HEIDI ABDI on 06/25/25 Normal [facility] 25(OH)[facility] 25-hydroxyvitamin D3 [Mass/Vol] 46.4 ng/mL Normal 31.0-80.0 [facility] Comment on above: Order Comment: Christian modi Type: BLOOD SPECIMENOrdering Facility: [facility] Address: [address] [place] [address] Result Comment: Clas sification of 25 OH Vitamin D status: Deficiency/Insufficiency: < or = 30 ng/ml. Sufficiency/Optimal Levels: 31-80 ng/mL Toxicity: > 100 ng/mL. Test performed by chemiluminescent immunoassay. Performed By: #### 1 989-3 ####[facility] [id number] [place] [address] [place] CBC W Auto Differential pane l (Bld)on 06-24-2025 Basophils (Bld) [#/Vol] 0.04 10*3/uL Normal <0.11 [facility] Comment on above: Order Comment: Christian modi Type: BLOOD SPECIMENOrdering Facility: [facility] Address: [address] [place] [address] Performed By: #### 5 7021-8 ####[facility] [id number] [place] [address] [place] Basophils/100 WBC (Bld) 0.6 % Normal C [facility] Comment on above: Order Comment: Christian modi Type: BLOOD SPECIMENOrdering Facility: [facility] Address: [address] [place] [address] Performed By: #### 5 7021-8 ####[facility] [id number] [place] [address] [place] Differential cell count method Nom (Bld) Auto Normal [facility] Comment on above: Order Comment: Speci men Type: BLOOD SPECIMENOrdering Facility: [facility] Address: [address] [place] [address] Performed By: #### 5 7021-8 ####[facility] [id number] [place] [address] [place] Eosinophils (Bld) [#/Vol] 0.33 10*3/uL Normal <0.46 [facility] Comment on above: Order Comment: Speci men Type: BLOOD SPECIMENOrdering Facility: [facility] Address: [address] [place] [address] Performed By: #### 5 7021-8 ####[facility] [id number] [address] [place] Eosinophils/100 WBC (Bld) 4.7 % Normal [facility] Comment on above: Order Comment: Speci men Type: BLOOD SPECIMENOrdering Facility: [facility] Address: [address] [place] [address] Performed By: #### 5 7021-8 ####[facility] [id number] [address] [place] Erythrocyte distribution width (RBC) [Ratio] 14.6 % Normal 11.5-15.0 [facility] Comment on above: Order Comment: Speci men Type: BLOOD SPECIMENOrdering Facility: [facility] Address: [address] [place] [address] Performed By: #### 5 7021-8 ####[facility] [id number] [address] [place] Hematocrit (Bld) [Volume fraction] 42.5 % Normal 39.0-51.0 [facility] Comment on above: Order Comment: Speci men Type: BLOOD SPECIMENOrdering Facility: [facility] Address: [address] [place] [address] Performed By: #### 5 7021-8 ####[facility] [id number] [place] [address] [place] Hemoglobin (Bld) [Mass/Vol] 14.4 g/dL Normal 13.0-17.0 [facility] Comment on above: Order Comment: Speci men Type: BLOOD SPECIMENOrdering Facility: [facility] Address: [address] [place] [address] Performed By: #### 5 7021-8 ####[facility] [id number] [place] [address] [place] Immature granulocytes (Bld) [#/Vol] 10*3/uL Normal <0.10 [facility] Comment on above: Order Comment: Speci men Type: BLOOD SPECIMENOrdering Facility: [facility] Address: [address] [place] [address] Performed By: #### 5 7021-8 ####[facility] [id number] [place] [address] [place] Immature granulocytes/100 WBC (Bld) 0.3 % Normal [facility] Comment on above: Order Comment: Speci men Type: BLOOD SPECIMENOrdering Facility: [facility] Address: [address] [place] [address] Performed By: #### 5 7021-8 ####[facility] [id number] [place] [address] [place] Lymphocytes (Bld) [#/Vol] 1.44 10*3/uL Normal 1.00-4.00 [facility] Comment on above: Order Comment: Speci men Type: BLOOD SPECIMENOrdering Facility: [facility] Address: [address] [place] [address] Performed By: #### 5 7021-8 ####[facility] [id number] [place] [address] [place] Lymphocytes/100 WBC (Bld) 20.3 % Normal [facility] Comment on above: Order Comment: Speci men Type: BLOOD SPECIMENOrdering Facility: [facility] Address: [address] [place] [address] Performed By: #### 5 7021-8 ####[facility] [id number] [place] [address] [place] MCH (RBC) [Entitic mass] 30.1 pg Normal 26.0-34.0 [facility] Comment on above: Order Comment: Speci men Type: BLOOD SPECIMENOrdering Facility: [facility] Address: [address] [place] [address] Performed By: #### 5 7021-8 ####[facility] [id number] [place] [address] [place] MCHC (RBC) [Mass/Vol] 33.9 g/dL Normal 30.5-36.0 [facility] Comment on above: Order Comment: Speci men Type: BLOOD SPECIMENOrdering Facility: [facility] Address: [address] [place] [address] Performed By: #### 5 7021-8 ####[facility] [id number] [place] [address] [place] MCV (RBC) [Entitic vol] 88.7 fL Normal 80.0-100.0 C [facility] Comment on above: Order Comment: Speci men Type: BLOOD SPECIMENOrdering Facility: [facility] Address: [address] [place] [address] Performed By: #### 5 7021-8 ####[facility] [id number] [place] [address] [place] Monocytes (Bld) [#/Vol] 0.77 10*3/uL Normal <0.87 [facility] Comment on above: Order Comment: Speci men Type: BLOOD SPECIMENOrdering Facility: [facility] Address: [address] [place] [address] Performed By: #### 5 7021-8 ####[facility] [id number] [place] [address] [place] Monocytes/100 WBC (Bld) 10.9 % Normal C [facility] Comment on above: Order Comment: Speci men Type: BLOOD SPECIMENOrdering Facility: [facility] Address: [address] [place] [address] Performed By: #### 5 7021-8 ####[facility] [id number] [place] [address] [place] Neutrophils (Bld) [#/Vol] 4.48 10*3/uL Normal 1.45-7.50 [facility] Comment on above: Order Comment: Speci men Type: BLOOD SPECIMENOrdering Facility: [facility] Address: [address] [place] [address] Performed By: #### 5 7021-8 ####[facility] [id number] [place] [address] [place] Neutrophils/100 WBC (Bld) 63.2 % Normal [facility] Comment on above: Order Comment: Speci men Type: BLOOD SPECIMENOrdering Facility: [facility] Address: [address] [place] [address] Performed By: #### 5 7021-8 ####[facility] [id number] [place] [address] [place] Nucleated RBC (Bld) [#/Vol] 10*3/uL Normal <0.01 [facility] Comment on above: Order Comment: Speci men Type: BLOOD SPECIMENOrdering Facility: [facility] Address: [address] [place] [address] Performed By: #### 5 7021-8 ####[facility] [id number] [place] [address] [place] Nucleated RBC/100 WBC (Bld) [Ratio] 0.0 /100 WBC Normal [facility] Comment on above: Order Comment: Speci men Type: BLOOD SPECIMENOrdering Facility: [facility] Address: [address] [place] [address] Performed By: #### 5 7021-8 ####[facility] [id number] [place] [address] [place] Platelet mean volume (Bld) [Entitic vol] 9.9 fL Normal 9.0-12.7 [facility] Comment on above: Order Comment: Speci men Type: BLOOD SPECIMENOrdering Facility: [facility] Address: [address] [place] [address] Performed By: #### 5 7021-8 ####[facility] [id number] [place] [address] [place] Platelets (Bld) [#/Vol] 134 10*3/uL Low 150-400 [facility] Comment on above: Order Comment: Speci men Type: BLOOD SPECIMENOrdering Facility: [facility] Address: [address] [place] [address] Performed By: #### 5 7021-8 ####[facility] [id number] [place] [address] [place] RBC (Bld) [#/Vol] 4.79 10*6/uL Normal 4.20-6.00 [facility] Comment on above: Order Comment: Speci men Type: BLOOD SPECIMENOrdering Facility: [facility] Address: [address] [place] [address] Performed By: #### 5 7021-8 ####[facility] [id number] [place] [address] [place] WBC (Bld) [#/Vol] 7.08 10*3/uL Normal 3.70-11.00 [facility] Comment on above: Order Comment: Speci men Type: BLOOD SPECIMENOrdering Facility: [facility] Address: [address] [place] [address] Performed By: #### 5 7021-8 ####[facility] [id number] [place] [address] [place] CNOVon 06-24-2025 CNOV Office Visit (FAMPWS ) TODD MATAMOROS ([id number]) 1940 M Date Time Provider Department 06/24/25 10:00 AM [facility] today, we recorded [...] taking medications as prescribed. Continues to see [employer] for followup Iron deficiency, eating iron rich [...] Macular degeneration NSTEMI (non-ST elevated myocardial infarction) ([facility]) 10/28/2019 Osteoarthritis of left hip Paresthesia [...] 07/28/2007 DIR RPR ANEURYSM ABDOMINAL AORTA 04/20/2011 [facility] EYLEA (AFLIBERCEPT) 2MG INTRAVITREAL INJECTION OD (RIGHT [...] Age of Onset Heart Mother age 60 [place], smoker None Father age 77 MVA Cataract [...] (more content not included)... Normal [facility] Comprehensive metabolic 2000 panelon 06-24-2025 Albumin [Mass/Vol] 4.3 g/dL Normal 3.9-4.9 [facility] Comment on above: Order Comment: Speci men Type: BLOOD SPECIMENOrdering Facility: [facility] Address: [address] [place] [address] Performed By: #### L IPNF, 64677-1, 3024-7, 3016-3 ####[facility] [id number] [place] [address] [place] ALP [Catalytic activity/Vol] 116 U/L High 38-113 [facility] Comment on above: Order Comment: Speci men Type: BLOOD SPECIMENOrdering Facility: [facility] Address: [address] [place] [address] Performed By: #### L IPNF, 97184-5, 3024-7, 3016-3 ####[facility] [id number] [place] [address] [place] ALT [Catalytic activity/Vol] 11 U/L Normal 10-54 [facility] Comment on above: Order Comment: Speci men Type: BLOOD SPECIMENOrdering Facility: [facility] Address: [address] [place] [address] Performed By: #### L IPNF, 09998-8, 3024-7, 3016-3 ####[facility] [id number] [place] [address] [place] Anion gap [Moles/Vol] 9 mmol/L Normal 8-15 [facility] Comment on above: Order Comment: Speci men Type: BLOOD SPECIMENOrdering Facility: [facility] Address: [address] [place] [address] Performed By: #### L IPNF, 78682-1, 4-7, 3016-3 ####[facility] [id number] [place] [address] [place] AST [Catalytic activity/Vol] 15 U/L Normal 14-40 [facility] Comment on above: Order Comment: Speci men Type: BLOOD SPECIMENOrdering Facility: [facility] Address: [address] [place] [address] Performed By: #### L IPNF, 09508-8, 3023-7, 6-3 ####[facility] [id number] [place] [address] [place] Bilirubin [Mass/Vol] 0.5 mg/dL Normal 0.2-1.3 [facility] Comment on above: Order Comment: Speci men Type: BLOOD SPECIMENOrdering Facility: [facility] Address: [address] [place] [address] Performed By: #### L IPNF, 75010-3, 3023-7, 3016-3 ####[facility] [id number] [place] [address] [place] Calcium [Mass/Vol] 9.4 mg/dL Normal 8.5-10.2 [facility] Comment on above: Order Comment: Speci men Type: BLOOD SPECIMENOrdering Facility: [facility] Address: [address] [place] [address] Performed By: #### L IPNF, 26021-8, 4-7, 3016-3 ####[facility] [id number] [place] [address] [place] Chloride [Moles/Vol] 106 mmol/L Normal 98-107 [facility] Comment on above: Order Comment: Speci men Type: BLOOD SPECIMENOrdering Facility: [facility] Address: [address] [place] [address] Performed By: #### L IPNF, 58283-4, 3024-7, 3016-3 ####[facility] [id number] [place] [address] [place] CO2 [Moles/Vol] 24 mmol/L Normal 22-30 [facility] Comment on above: Order Comment: Speci men Type: BLOOD SPECIMENOrdering Facility: [facility] Address: [address] [place] [address] Performed By: #### L IPNF, 92356-9, 3024-7, 3016-3 ####[facility] [id number] [place] [address] [place] Creatinine [Mass/Vol] 1.25 mg/dL High 0.73-1.22 [facility] Comment on above: Order Comment: Speci men Type: BLOOD SPECIMENOrdering Facility: [facility] Address: [address] [place] [address] Performed By: #### L IPNF, 20087-4, 3024-7, 3016-3 ####[facility] [id number] [place] [address] [place] eGFRcr SerPlBld CKD-EPI 2020 56 mL/min/1.73m??? Low >=60 [facility] Comment on above: Order Comment: Speci men Type: BLOOD SPECIMENOrdering Facility: [facility] Address: [address] [place] [address] Result Comment: Shannan mated Glomerular Filtration Rate [...] actual GFR. Performed By: #### L IPNF, 96217-0, 3023-7, 6-3 ####[facility] [id number] [place] [id number] [place] Glucose [Mass/Vol] 99 mg/dL Normal 74-99 [facility] Comment on above: Order Comment: Speci men Type: BLOOD SPECIMENOrdering Facility: [facility] Address: [address] [place] [address] Result Comment: The [place] Diabetes Association (ADA) provides guidance for cutoff [...] Standards of Medical Care in Diabetes 2016, [place] Diabetes Association. Diabetes Care. 2016.39(Suppl 1). Performed By: #### L IPNF, 79262-8, 7, 3 ####[facility] [id number] [place] [id number] [place] Potassium [Moles/Vol] 4.6 mmol/L Normal 3.7-5.1 [facility] Comment on above: Order Comment: Speci men Type: BLOOD SPECIMENOrdering Facility: [facility] Address: [address] [place] [id number] Performed By: #### L IPNF, 95654-3, 3023-7, 3015-3 ####[facility] [id number] [place] [id number] [place] Protein [Mass/Vol] 7.0 g/dL Normal 6.3-8.0 [facility] Comment on above: Order Comment: Speci men Type: BLOOD SPECIMENOrdering Facility: [facility] Address: [address] [place] [address] Performed By: #### L IPNF, 66443-3, 3024-7, 3016-3 ####[facility] [id number] [place] [id number] [place] Sodium [Moles/Vol] 139 mmol/L Normal 136-144 [facility] Comment on above: Order Comment: Speci men Type: BLOOD SPECIMENOrdering Facility: [facility] Address: [address] [place] [address] Performed By: #### L IPNF, 18539-3, 4-7, 6-3 ####[facility] [id number] [place] [address] [place] Urea nitrogen [Mass/Vol] 21 mg/dL Normal 9-24 [facility] Comment on above: Order Comment: Speci men Type: BLOOD SPECIMENOrdering Facility: [facility] Address: [address] [place] [address] Performed By: #### L IPNF, 89510-4, 4-7, 6-3 ####[facility] [id number] [place] [address] [place] HbA1c (Bld)on 06-24-2025 Average glucose Estimated from glycated hemoglobin (Bld) [Mass/Vol] 103 mg/dL Normal [facility] Comment on above: Order Comment: Speci men Type: BLOOD SPECIMENOrdering Facility: [facility] Address: [address] [place] [address] Result Comment: eAG: (Estimated average glucose) is a calculated value from HgbA1c and is fuels sales representative of the average blood glucose level in the last 2-3 month period. Performed By: #### 5 5454-3 ####[facility] [id number] [place] [address] [place] HbA1c (Bld) [Mass fraction] 5.2 % Normal 4.3-5.6 [facility] Comment on above: Order Comment: Speci men Type: BLOOD SPECIMENOrdering Facility: [facility] Address: [address] [place] [address] Result Comment: Amer [place] Diabetes Association guidelines indicate that patients with HgbA1c in the range 5.7-6.4% are at increased risk for development of diabetes, and intervention by lifestyle modification may be beneficial. HgbA1c greater or equal to 6.5% is considered diagnostic of diabetes. Performed By: #### 5 5454-3 ####[facility] [id number] [address] OF [place] LIPID PANEL, NONFASTINGon Cholesterol [Mass/Vol] 115 mg/dL Normal <[address] [facility] Comment on above: Order Comment: Christian modi Type: BLOOD SPECIMENOrdering Facility: [facility] Address: [address] [place] [address] Result Comment: <200 mg/dL, Desirable 200-239 mg/dL, Borderline high >239 mg/dL, High Performed By: #### L IPNF, 55090-2, 3024-7, 3016-3 ####[facility] [id number] [address] [place] HDL CHOLESTEROL, NF 32 mg/dL Low >39 [facility] Comment on above: Order Comment: Christian modi Type: BLOOD SPECIMENOrdering Facility: [facility] Address: [address] [place] [address] Result Comment: 40-5 9 mg/dL, Acceptable >59 mg/dL, High: Negative risk factor for coronary heart disease <40 mg/dL, Low: Positive risk factor for coronary heart disease Performed By: #### L IPNF, 96347-2, 3024-7, 3016-3 ####[facility] [id number] [place] [address] [place] LDL CHOLESTEROL CALCULATED, NF 43 mg/dL Normal <100 [facility] Comment on above: Order Comment: Emiraudel modi Type: BLOOD SPECIMENOrdering Facility: [facility] Address: [address] [place] [address] Result Comment: <100 mg/dL, Optimal 100-129 mg/dL, Near optimal/above optimal 130-159 mg/dL, Borderline high 160-189 mg/dL, High >189 mg/dL, Very high Secondary prevention optimal LDL Cholesterol levels are recommended to be <70 mg/dL LDL cholesterol is calculated using the Polo-NIH equation. Performed By: #### L IPTITO, 63306-9, 3023-7, 3015-3 ####[facility] [id number] [address] OF [facility] LDL/HDL RATIO, NF 1.34 mg/dL Normal <2.54 [facility] Comment on above: Order Comment: Christian modi Type: BLOOD SPECIMENOrdering Facility: [facility] Address: [address] [place] [address] Result Comment: Refe rence: 1. National Cholesterol Education Program ATP III Guideline At-A-Glance Quick Desk Reference: National Heart, Lung, and Blood [place]. National Institutes of Health. 2001: NIH Publication No. 01-3305. 2. An International Atherosclerosis Society position paper: global recommendations for the management of dyslipidemia: executive summary, Atherosclerosis. 2014: 232(2):410-413. Performed By: #### L KEITH, 77805-1, 3024-02, 3 ####[facility] [id number] [address] OF [facility] NON HDL CHOL, NF 83 mg/dL Normal <130 [facility] Comment on above: Order Comment: Christian modi Type: BLOOD SPECIMENOrdering Facility: [facility] Address: [address] [place] [address] Result Comment: <130 mg/dL, Optimal 130-159 mg/dL, Near optimal/above optimal 160-189 mg/dL, Borderline high 190-219 mg/dL, High >219 mg/dL, Very high Secondary prevention optimal non HDL Cholesterol levels are recommended to be <100 mg/dL Performed By: #### L IPNF, 77537-8, 3023-7, 3015-3 ####[facility] [id number] [place] [address] [place] T CHOL/HDL RATIO NF 3.59 mg/dL Normal <5.10 [facility] Comment on above: Order Comment: Speci men Type: BLOOD SPECIMENOrdering Facility: [facility] Address: [address] [place] [address] Performed By: #### L IPNF, 52561-2, 3024-7, 3016-3 ####[facility] [id number] [place] [address] [place] TRIGLYCERIDES, NF 257 mg/dL High <150 [facility] Comment on above: Order Comment: Speci men Type: BLOOD SPECIMENOrdering Facility: [facility] Address: [address] [place] [address] Result Comment: <150 mg/dL, Normal 150-199 mg/dL, Borderline high 200-499 mg/dL, High >499 mg/dL, Very high Performed By: #### L IPNF, 49476-1, 3023-7, 6-3 ####[facility] [id number] [place] [address] [place] VLDL CHOLESTEROL, NF 35 mg/dL High <30 [facility] Comment on above: Order Comment: Speci men Type: BLOOD SPECIMENOrdering Facility: [facility] Address: [address] [place] [address] Performed By: #### L IPNF, 02083-2, 3023-7, 6-3 ####[facility] [id number] [place] [address] [place] T4 Free SerPl-mCncon -31-2 025 Free T4 [Mass/Vol] 1.2 ng/dL Normal 0.9-1.7 [facility] Comment on above: Order Comment: Speci men Type: BLOOD SPECIMENOrdering Facility: [facility] Address: [address] [place] [address] Performed By: #### L IPNF, 29964-8, 302-7, 3016-3 ####[facility] [id number] [place] [id number] [place] TSH SerPl-aCncon 06-24-2025 TSH Qn 2.480 m[IU]/L Normal 0.270-4.200 [facility] Comment on above: Order Comment: Speci men Type: BLOOD SPECIMENOrdering Facility: [facility] Address: [address] [place] [address] Performed By: #### L IP, 12127-9, 3024-7, 3016-3 ####[facility] [id number] [place] [address] [place] Vit B12 SerPl-mCncon 025 Cobalamin (Vitamin B12) [Mass/Vol] 798 pg/mL Normal 232-1245 [facility] Comment on above: Order Comment: Speci men Type: BLOOD SPECIMENOrdering Facility: [facility] Address: [address] [place] [address] Performed By: #### 2 132-9 ####[facility] [id number] [place] [address] [place] XR CHEST 2V [...] Stable exam with no acute radiographic abnormality. Creative Writer: TOM Transcribe Date/Time: Jun 26 2025 6:21P Dictated by : FIDEL GAO MD This examination was interpreted and the report reviewed and electronically signed by: FIDEL GAO MD on Jun 26 2025 6:22PM EST [id number] Normal [facility] Cardiology Visit Reporton Cardiology Visit Report [facility] [address] [place] [address] OFFICE VISIT Date of Service: 03/22/25 MR#: [id number] Acct: [id number] Name: TODD MATAMOROS Rep #: [id number] : 1940 Provider: Dr. 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 Normal [facility] CNOVon 12-27-2024 [facility] Office Visit (FAMPWS ) TODD MATAMOROS ([id number]) 1940 M Date Time Provider Department 12/27/24 [...] Asha Hernandez CNP and then sent to [facility] EMERGENCY DEPARTMENT for further assessment with [...] taking medications as prescribed. Continues to see Clay [employer] Press Helper for followup Iron deficiency, eating iron rich [...] Macular degeneration NSTEMI (non-ST elevated myocardial infarction) ([facility]) 10/28/2019 Osteoarthritis of left hip Paresthesia [...] 07/28/2007 DIR RPR ANEURYSM ABDOMINAL AORTA 04/20/2011 [place] EYLEA (AFLIBERCEPT) 2MG INTRAVITREAL INJECTION OD [...] (more content not included)... Normal [facility] Rosanna 12-20-2024 [facility] Telephone (FAMPWS) TODD MATAMOROS ([id number]) 1940 M Date Time Provider Department 12/20/24 ROBEL ONOFRE During your visit today, we recorded the following information about you: Gildardo Franklin RN 12/20/2024 9:05 AM Signed Daughter, Zulema, reports pt saw Asha on 12/14/24 for vertigo. Asha sent pt to [facility] ER that day and ER prescribed [...] Date Reviewed: 12/14/2024 Reviewed by: Asha Hernandez, SIZING END BANDER.ADVANCED PRACTICE NURSE PSYCHOTHERAPIST - Fully Assessed Reason for Visit: Patient Question [1147] Order(s):meclizine (ANTIVERT) 12.5 mg tabTake 1 tablet [...] [place] on 12/21/24 Normal [facility] Absolute lymphocyte countOrd ered By: Cristobal Mayo on 12-14-2024 Lymphocytes Auto (Unsp spec) [#/Vol] 1.05 10*3/uL 0.83-4.51 [facility] Absolute neutrophil countOrd ered By: Cristobal Mayo on 12-14-2024 Neutrophils (Bld) [#/Vol] 4.8 10*3/uL 2.0-7.7 [facility] Activated partial thrombopla stin time (aPTT) in platelet poor plasma by coagulation aOrdered By: Cristobal Mayo on 12-14-2024 aPTT Coag (PPP) [Time] 82.8 s High 24.1-36.2 [facility] Anion gap in Serum or Plasma Ordered By: Cristobal Mayo on 12-14-2024 Anion gap [Moles/Vol] 10 mmol/L 5-15 [facility] Automated lymphocyte count a s percentage of total leukocytesOrdered By: Cristobal Mayo on 12-14-2024 Lymphocytes/100 WBC Auto (Unsp spec) 15.9 % Low - [facility] BUN/creatinine ratioOrdered By: Cristobal Mayo on 12-14-2024 Urea nitrogen/Creatinine [Mass ratio] 16.9 mg/mg - [facility] Basic Metabolic Profile (BMP )on 12-14-2024 BUN/CRE 16.9 RATIO Normal - [facility] Comment on above: Performed By: #### L 100.0100, L500.2500, L300.4310, L300.3900 #### [facility] [address] [place], [address] Calcium [Mass/Vol] 9.6 mg/dL Normal 7.6-11.0 [facility] Comment on above: Performed By: #### L 100.0100, L500.2500, L300.4310, L300.3900 #### [facility] [address] [place], [address] Chloride [Moles/Vol] 106 mmol/L Normal 98-108 [facility] Comment on above: Performed By: #### L 100.0100, L500.2500, L300.4310, L300.3900 #### [facility] [address] [place], [address] CO2 [Moles/Vol] 21.1 mmol/L Normal 21.0-32.0 [facility] Comment on above: Performed By: #### L 100.0100, L500.2500, L300.4310, L300.3900 #### [facility] [address] [place], [address] Creatinine [Mass/Vol] 1.01 mg/dL Normal 0.70-1.20 [facility] Comment on above: Performed By: #### L 100.0100, L500.2500, L300.4310, L300.3900 #### [facility] [address] [place], [address] GAP 10 Normal 5-15 [facility] Comment on above: Performed By: #### L 100.0100, L500.2500, L300.4310, L300.3900 #### [facility] [address] [place], [address] GFR/1.73 sq M.predicted among non-blacks MDRD (S/P/Bld) [Vol rate/Area] 73 mL/min/{1.73_m2} Normal >60 [facility] Comment on above: Result Comment: mL/m in/1.73m2 CKD-EPI Creatinine Equation (2020) Performed By: #### L 100.0100, L500.2500, L300.4310, L300.3900 #### [facility] [address] [place], [address] Glucose [Mass/Vol] 112 mg/dL High 70-99 [facility] Comment on above: Performed By: #### L 100.0100, L500.2500, L300.4310, L300.3900 #### [facility] [address] [place], [address] Potassium [Moles/Vol] 4.0 mmol/L Normal 3.3-5.1 [facility] Comment on above: Performed By: #### L 100.0100, L500.2500, L300.4310, L300.3900 #### [facility] [address] [place], [address] Sodium [Moles/Vol] 137 mmol/L Normal 133-145 [facility] Comment on above: Performed By: #### L 100.0100, L500.2500, L300.4310, L300.3900 #### [facility] [address] [place], [address] Urea nitrogen [Mass/Vol] 17 mg/dL Normal 4-19 [facility] Comment on above: Performed By: #### L 100.0100, L500.2500, L300.4310, L300.3900 #### [facility] [address] [place], [address] Basophil percentageOrdered B y: Cristobal Mayo on 12-14-2024 Basophils/100 WBC (Bld) 0.3 % 0-1 [facility] CBC W/Diff, Automatedon 11-24 Absolute Lymph 1.05 X10 3/uL Normal 0.83-4.51 [facility] Comment on above: Performed By: #### L 100.0100, L500.2500, L300.4310, L300.3900 #### [facility] [address] [place], [address] Absolute Neut 4.8 X10 3/uL Normal 2.0-7.7 [facility] Comment on above: Performed By: #### L 100.0100, L500.2500, L300.4310, L300.3900 #### [facility] [address] [place], [address] Basophils/100 WBC (Bld) 0.3 % Normal 0-1 [facility] Comment on above: Performed By: #### L 100.0100, L500.2500, L300.4310, L300.3900 #### [facility] [address] [place], [address] Eosinophils/100 WBC (Bld) 2.7 % Normal 0-5 [facility] Comment on above: Performed By: #### L 100.0100, L500.2500, L300.4310, L300.3900 #### [facility] [address] [place], [address] Erythrocyte distribution width (RBC) [Ratio] 13.9 % Normal 11.6-14.6 [facility] Comment on above: Performed By: #### L 100.0100, L500.2500, L300.4310, L300.3900 #### [facility] [address] [place], [address] Hematocrit (Bld) [Volume fraction] 41.5 % Normal 40-54 [facility] Comment on above: Performed By: #### L 100.0100, L500.2500, L300.4310, L300.3900 #### [facility] [address] [place], [address] Hemoglobin (Bld) [Mass/Vol] 14.6 g/dL Normal 13.0-16.5 [facility] Comment on above: Performed By: #### L 100.0100, L500.2500, L300.4310, L300.3900 #### [facility] [address] [place], [address] IG% 0.300 Normal 0.0-0.9 [facility] Comment on above: Result Comment: IG% - Immature Granulocytes (promyelocytes, myelocytes and metamyelocytes) > 1% indicates that a LEFT SHIFT is Present. Performed By: #### L 100.0100, L500.2500, L300.4310, L300.3900 #### [facility] [address] [place], [address] Lymphocytes/100 WBC (Bld) 15.9 % Low 19-41 [facility] Comment on above: Performed By: #### L 100.0100, L500.2500, L300.4310, L300.3900 #### [facility] [address] [place], [address] MCH (RBC) [Entitic mass] 28.9 pg Normal 27.0-32.0 [facility] Comment on above: Performed By: #### L 100.0100, L500.2500, L300.4310, L300.3900 #### [facility] [address] [place], [address] MCHC (RBC) [Mass/Vol] 35.2 g/dL Normal 32-36 [facility] Comment on above: Performed By: #### L 100.0100, L500.2500, L300.4310, L300.3900 #### [facility] [address] [place], [address] MCV (RBC) [Entitic vol] 82.2 fL Normal 80-94 [facility] Comment on above: Performed By: #### L 100.0100, L500.2500, L300.4310, L300.3900 #### [facility] [address] [place], [address] Monocytes/100 WBC (Bld) 8.2 % Normal 0-10 [facility] Comment on above: Performed By: #### L 100.0100, L500.2500, L300.4310, L300.3900 #### [facility] [address] [place], [address] Neutrophils/100 WBC (Bld) 72.6 % High 47-70 [facility] Comment on above: Performed By: #### L 100.0100, L500.2500, L300.4310, L300.3900 #### [facility] [address] [place], [address] Nucleated RBC (Bld) [#/Vol] 0 10*3/uL Normal 0-5 [facility] Comment on above: Performed By: #### L 100.0100, L500.2500, L300.4310, L300.3900 #### [facility] [address] [place], [address] Platelet mean volume (Bld) [Entitic vol] 9.4 fL Normal 6.2-12.0 [facility] Comment on above: Performed By: #### L 100.0100, L500.2500, L300.4310, L300.3900 #### [facility] [address] [place], [address] Platelets (Bld) [#/Vol] 122 10*3/uL Low 150-450 [facility] Comment on above: Performed By: #### L 100.0100, L500.2500, L300.4310, L300.3900 #### [facility] [address] [place], [address] RBC (Bld) [#/Vol] 5.05 10*6/uL Normal 4.6-6.2 [facility] Comment on above: Performed By: #### L 100.0100, L500.2500, L300.4310, L300.3900 #### [facility] [address] [place], [address] RDW SD 41.1 fl Normal 35.1-43.9 [facility] Comment on above: Performed By: #### L 100.0100, L500.2500, L300.4310, L300.3900 #### [facility] [address] [place], [address] WBC (Bld) [#/Vol] 6.6 10*3/uL Normal 4.4-11.0 [facility] Comment on above: Performed By: #### L 100.0100, L500.2500, L300.4310, L300.3900 #### [facility] [place], [address] CNOVon 12-14-2024 CNOV Office Visit (INTMWS ) TODD MATAMOROS ([id number]) 1940 M Date Time Provider Department 12/14/24 11:40 AM ASHA HERNANDEZ INTMWS During your visit today, we recorded the following information about you: Pulse Respiration Blood pressure Weight 54/minute 12/minute 152/84 84.1 kg Asha Hernandez, SIZING END BANDER.ADVANCED PRACTICE NURSE PSYCHOTHERAPIST 12/14/2024 12:34 PM Signed CC: Patient presents with: Vertigo: Dizziness x 1 day HPI Recording using [employer] software for draft documentation of the visit was discussed with the patient/authorized fuels sales representative; all questions welcomed and answered. Patient/authorized fuels sales representative agreed to proceed Daryn is a [...] Macular degeneration NSTEMI (non-ST elevated myocardial infarction) ([facility]) 10/28/2019 Osteoarthritis of left hip Paresthesia [...] 07/28/2007 DIR RPR ANEURYSM ABDOMINAL AORTA 04/20/2011 [facility] EYLEA (AFLIBERCEPT) 2MG INTRAVITREAL INJECTION OD (RIGHT [...] mg b (more content not included)... Normal [facility] 12-14-2024 [facility] Telephone (ISAIASWS) TODD MATAMOROS ([id number]) 1940 M Date Time Provider Department 12/14/24 ROBEL ONOFRE [facility] During your visit today, we recorded [...] DEBRA ROMERO on 12/14/24 Normal [facility] CTA Head AND Neck W/ Contras ton 12-14-2024 CTA Head AND Neck W/ Contrast [facility] Imaging Services [address] [place] [address] CTA Head AND Neck W/ Contrast MR#: [id number] Acct: [id number] Name: TODD MATAMOROS Rep #: [id number] : 1940 M 84 From: Galindo redding MD PCP: Dr. Robel Onofre, DO Status: REG ER Study: CTA Head AND Neck W/ Contrast Date of Exam: Exam# [id number] Ordering Dr: Cristobal Mayo DO PROCEDURE: CTA [...] RIGHT Vertebral: Unremarkable. LEFT Vertebral: Unremarkable. Anatomy: [place] anatomy is normal. Aneurysm or [...] internal carotid artery. Cerebral atrophy. Reading Location: [facility] [place] [address] CC: Dr. Robel Onofre DO; Dr. Cristobal Mayo DO Creative Writer: Signed Normal [facility] Carbon dioxide, total [Moles /volume] in Central venous bloodOrdered By: Cristobal Mayo on 12-14-2024 CO2 [Moles/Vol] 21.1 mmol/L 21.0-32.0 [facility] Chloride assayOrdered By: Geovanni Mayo on 12-14-2024 Chloride [Moles/Vol] 106 mmol/L 98-108 [facility] Emergency Department Summary on 12-14-2024 Emergency Department Summary [facility] Medical Records Department [address] [place] [address] Emergency Department Summary 12/14/24 MR#: [id number] Acct: [id number] Name: TODD MATAMOROS Rep #: [id number] : 1940 84 From: Cristobal Ivory PCP: [...] He had evaluation in the office with [facility] fully explained to the right he sat up and threw up. No headache. No recent upper respiratory symptoms or sinus symptoms. Does wear hearing aids. No allergies. Currently resting no symptoms. He ambulates with guidance from his daughter. 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 Normal [facility] Eosinophil percentageOrdered By: Cristobal Mayo on 12-14-2024 Eosinophils/100 WBC (Bld) 2.7 % 0-5 [facility] Erythrocyte distribution wid th (RBC) [Ratio]Ordered By: Cristobal Mayo on 12-14-2024 Erythrocyte distribution width (RBC) [Entitic vol] 41.1 fL 35.1-43.9 [facility] Erythrocyte distribution wid th ratioOrdered By: Cristobal Mayo on 12-14-2024 Erythrocyte distribution width (RBC) [Ratio] 13.9 % 11.6-14.6 [facility] Erythrocyte distribution wid th standard deviationOrdered By: Cristobal Mayo on 12-14-2024 Erythrocyte distribution width (RBC) [Ratio] 41.1 fl 35.1-43.9 [facility] GFR/1.73 sq M.predicted lebron g non-blacks MDRD (S/P/Bld) [Vol rate/Area]Ordered By: Cristobal Mayo on 12-14-2024 Estimated GFR (MDRD) Non-Af Amer 73 >60 [facility] Comment on above: mL/min/1.73m2 CKD-EP I Creatinine Equation (2020) Glomerular filtration rate ( GFR) estimation/1.73 sq m using serum, plasma, or whole bOrdered By: Cristobal Mayo on 12-14-2024 GFR/1.73 sq M.predicted among non-blacks MDRD (S/P/Bld) [Vol rate/Area] 73 mL/min/{1.73_m2} >60 [facility] Comment on above: mL/min/1.73m2 CKD-EP I Creatinine Equation (2020) Hematocrit Auto (Bld) [Volum e fraction]Ordered By: Cristobal Mayo on 12-14-2024 Hematocrit (Bld) [Volume fraction] 41.5 % 40-54 [facility] Hemoglobin measurementOrdere d By: Cristobal Mayo on 12-14-2024 Hemoglobin (Bld) [Mass/Vol] 14.6 g/dL 13.0-16.5 [facility] Immature granulocytes/100 WB C Auto (Bld)Ordered By: Cristobal Mayo on 12-14-2024 Immature granulocytes/100 WBC (Bld) 0.300 % 0.0-0.9 [facility] Comment on above: IG% - Immature Granu locytes (promyelocytes, myelocytes and metamyelocytes) > 1% indicates that a LEFT SHIFT is Present. International normalized rat io (INR) calculationOrdered By: Cristobal Mayo on 12-14-2024 INR Coag (Bld) [Relative time] 1.1 {INR} [facility] Lymphocytes Auto (Unsp spec) [#/Vol]Ordered By: Cristobal Mayo on 12-14-2024 Lymphocytes (Bld) [#/Vol] 1.05 10*3/uL 0.83-4.51 [facility] Lymphocytes/100 WBC Auto (Un sp spec)Ordered By: Cristobal Mayo on 12-14-2024 Lymphocytes/100 WBC (Bld) 15.9 % Low 19-41 [facility] MCV (mean corpuscular volume ) determinationOrdered By: Cristobal Maoy on 12-14-2024 MCV (RBC) [Entitic vol] 82.2 fL 80-94 [facility] Mean corpuscular hemoglobin (MCH) determinationOrdered By: Cristobal Mayo on 12-14-2024 MCH (RBC) [Entitic mass] 28.9 pg 27.0-32.0 [facility] Mean corpuscular hemoglobin concentration (MCHC) determinationOrdered By: Cristobal Mayo on 12-14-2024 MCHC (RBC) [Mass/Vol] 35.2 g/dL 32-36 [facility] Mean platelet volume determi nationOrdered By: Cristobal Mayo on 12-14-2024 Platelet mean volume (Bld) [Entitic vol] 9.4 fL 6.2-12.0 [facility] Monocyte percentageOrdered B y: Cristobal Mayo on 12-14-2024 Monocytes/100 WBC (Bld) 8.2 % 0-10 [facility] Neutrophil percentageOrdered By: Cristobal Mayo on 12-14-2024 Neutrophils/100 WBC (Bld) 72.6 % High 47-70 [facility] Nucleated red blood cell per centageOrdered By: Cristobal Mayo on 12-14-2024 Nucleated RBC/100 WBC (Bld) [Ratio] 0 % 0-5 [facility] Partial Thromboplast Timeon 12-14-2024 aPTT Coag (Bld) [Time] 82.8 s High 24.1-36.2 [facility] Comment on above: Performed By: #### L 100.0100, L500.2500, L300.4310, L300.3900 #### [facility] [address] [place], [address] Platelet countOrdered By: Geovanni Mayo on 12-14-2024 Platelets (Bld) [#/Vol] 122 10*3/uL Low 150-450 [facility] Potassium (Unsp spec) [Mass/ Vol]Ordered By: Cristobal Mayo on 12-14-2024 Potassium [Moles/Vol] 4.0 mmol/L 3.3-5.1 [facility] Potassium measurement (mass/ volume)Ordered By: Cristobal Mayo on 12-14-2024 Potassium (Unsp spec) [Mass/Vol] 4.0 mmol/L 3.3-5.1 [facility] Prothrombin Time w/INRon INR Coag (PPP) [Relative time] 1.1 {INR} Normal [facility] Comment on above: Performed By: #### L 100.0100, L500.2500, L300.4310, L300.3900 #### [facility] [address] [place], [address] PT Coag (PPP) [Time] 14.0 s Normal 11.7-14.9 [facility] Comment on above: Performed By: #### L 100.0100, L500.2500, L300.4310, L300.3900 #### [facility] [address] [place], [address] Prothrombin timeOrdered By: Cristobal Mayo on 12-14-2024 PT Coag (PPP) [Time] 14.0 s 11.7-14.9 [facility] RBC Auto (Bld) [#/Vol]Ordere d By: Cristobal Mayo on 12-14-2024 RBC (Bld) [#/Vol] 5.05 10*6/uL 4.6-6.2 [facility] Serum creatinine measurement (mass/volume)Ordered By: Cristobal Mayo on 12-14-2024 Creatinine [Mass/Vol] 1.01 mg/dL 0.70-1.20 [facility] Serum glucose measurement (m ass/volume)Ordered By: Cristobal Mayo on 12-14-2024 Glucose [Mass/Vol] 112 mg/dL High 70-99 [facility] Serum or plasma calcium kimmie urement (mass/volume)Ordered By: Cristobal Mayo on 12-14-2024 Calcium [Mass/Vol] 9.6 mg/dL 7.6-11.0 [facility] Serum or plasma urea nitroge n measurement (mass/volume)Ordered By: Cristobal Mayo on 12-14-2024 Urea nitrogen [Mass/Vol] 17 mg/dL 4-19 [facility] Sodium levelOrdered By: Cristobal Mayo on 12-14-2024 Sodium [Moles/Vol] 137 mmol/L 133-145 [facility] White blood cell (WBC) count Ordered By: Cristobal Mayo on 12-14-2024 WBC (Bld) [#/Vol] 6.6 10*3/uL 4.4-11.0 [facility] aPTT Coag (PPP) [Time]Ordere d By: Cristobal Mayo on 12-14-2024 aPTT Coag (Bld) [Time] 82.8 s High 24.1-36.2 [facility] CNPNon 10-08-2024 CNPN Telephone (FAMDahianaWS) TODD MATAMOROS ([id number]) 1940 M Date Time Provider Department 10/08/24 ROBEL ONOFRE During your visit today, we recorded the following information about you: Zenaida Morrissey 10/08/2024 8:17 AM Signed Shy is calling Robel Onofre DO today to request Letter (Blindness confirmation for taxes) Patient has been identified by name and birthdate. Duration of symptoms: N/A Person calling: daughter: Jadyn Lew patient at: [phone] Was an appointment scheduled: No Closing statement: [...] RODNEY KIRK LPN on 10/12/24 [facility] Rosanna 08-30-2024 LEON Telephone (FAMPWS) TODD MATAMOROS ([id number]) 1940 M Date Time Provider Department 08/30/24 ROBEL ONOFRE During your visit today, we recorded the following information about you: Rodney Kirk LPN 08/30/2024 12:11 PM Signed Type of form: Deaf and blind form Form received via walk in When form is completed, PhoneTina when complete.[phone] Form has been forwarded to Physician Desk: [...] it to her in the mail at [address] [place] [phone]. SAMUEL Delgado Jordan L, DO 09/01/2024 8:16 [...] RODNEY KIRK LPN on 11/30/24 [facility] TODD MATAMOROS ([id number]) 1940 M Date Time Provider Department 07/01/24 [...] KORTNEY BONNER on 07/01/24 Normal [facility] 25([place])D3 [facility] 2023 25-hydroxyvitamin D3 [Mass/Vol] 44.7 ng/mL Normal 31.0-80.0 [facility] Comment on above: Order Comment: Speci men Type: BLOOD SPECIMENOrdering Facility: [facility] Address: [address] [place] [address] Result Comment: Clas sification of 25 [place] Vitamin D status: Deficiency/Insufficiency: < or = 30 ng/ml. Sufficiency/Optimal Levels: 31-80 ng/mL Toxicity: > 100 ng/mL. Test performed by chemiluminescent immunoassay. Performed By: #### 1 989-3 ####[facility] LABCLIA [id number] [place] [address] [place] CBC W Auto Differential pane l (Bld)on 06-30-2024 Basophils (Bld) [#/Vol] 10*3/uL Normal <0.11 C [facility] Comment on above: Order Comment: Speci men Type: BLOOD SPECIMENOrdering Facility: [facility] Address: [address] [place] [address] Performed By: #### 5 7021-8 ####[facility] LABIA [id number] [place] [address] [place] Basophils/100 WBC (Bld) 0.3 % Normal C [facility] Comment on above: Order Comment: Speci men Type: BLOOD SPECIMENOrdering Facility: [facility] Address: [address] [place] [address] Performed By: #### 5 7021-8 ####[facility] LABCLIA [id number] [place] [address] [place] Differential cell count method Nom (Bld) Auto Normal [facility] Comment on above: Order Comment: Speci men Type: BLOOD SPECIMENOrdering Facility: [facility] Address: [address] [place] [address] Performed By: #### 5 7021-8 ####[facility] LABCLIA [id number] [address] [id number] [address] [place] Eosinophils (Bld) [#/Vol] 0.23 10*3/uL Normal <0.46 [facility] Comment on above: Order Comment: Speci men Type: BLOOD SPECIMENOrdering Facility: [facility] Address: [address] [place] [address] Performed By: #### 5 7021-8 ####[facility] LABCLIA [id number] [place] [address] [place] Eosinophils/100 WBC (Bld) 3.1 % Normal [facility] Comment on above: Order Comment: Speci men Type: BLOOD SPECIMENOrdering Facility: [facility] Address: [address] [place] [address] Performed By: #### 5 7021-8 ####[facility] LABCLIA [id number] [place] [address] [place] Erythrocyte distribution width (RBC) [Ratio] 14.1 % Normal 11.5-15.0 [facility] Comment on above: Order Comment: Speci men Type: BLOOD SPECIMENOrdering Facility: [facility] Address: [address] [place] [address] Performed By: #### 5 7021-8 ####[facility] LABCLIA [id number] [address] [place] Hematocrit (Bld) [Volume fraction] 42.9 % Normal 39.0-51.0 [facility] Comment on above: Order Comment: Speci men Type: BLOOD SPECIMENOrdering Facility: [facility] Address: [address] [place] [address] Performed By: #### 5 7021-8 ####[facility] LABCLIA [id number] [place] [address] [place] Hemoglobin (Bld) [Mass/Vol] 14.6 g/dL Normal 13.0-17.0 [facility] Comment on above: Order Comment: Speci men Type: BLOOD SPECIMENOrdering Facility: [facility] Address: [address] [place] [address] Performed By: #### 5 7021-8 ####[facility] LABCLIA [id number] [place] [address] [place] Immature granulocytes (Bld) [#/Vol] 0.03 10*3/uL Normal <0.10 [facility] Comment on above: Order Comment: Speci men Type: BLOOD SPECIMENOrdering Facility: [facility] Address: [address] [place] [address] Performed By: #### 5 7021-8 ####[facility] LABCLIA [id number] [place] [address] [place] Immature granulocytes/100 WBC (Bld) 0.4 % Normal [facility] Comment on above: Order Comment: Speci men Type: BLOOD SPECIMENOrdering Facility: [facility] Address: [address] [place] [address] Performed By: #### 5 7021-8 ####[facility] LABCLIA [id number] [place] [address] [place] Lymphocytes (Bld) [#/Vol] 1.43 10*3/uL Normal 1.00-4.00 [facility] Comment on above: Order Comment: Speci men Type: BLOOD SPECIMENOrdering Facility: [facility] Address: [address] [place] [address] Performed By: #### 5 7021-8 ####[facility] LABCLIA [id number] [place] [address] [place] Lymphocytes/100 WBC (Bld) 19.1 % Normal [facility] Comment on above: Order Comment: Speci men Type: BLOOD SPECIMENOrdering Facility: [facility] Address: [address] [place] [address] Performed By: #### 5 7021-8 ####[facility] LABCLIA [id number] [address] [id number], [place] [address] [place] MCH (RBC) [Entitic mass] 29.9 pg Normal 26.0-34.0 [facility] Comment on above: Order Comment: Speci men Type: BLOOD SPECIMENOrdering Facility: [facility] Address: [address] [place] [address] Performed By: #### 5 7021-8 ####[facility] LABCLIA [id number] [place] [address] [place] MCHC (RBC) [Mass/Vol] 34.0 g/dL Normal 30.5-36.0 [facility] Comment on above: Order Comment: Speci men Type: BLOOD SPECIMENOrdering Facility: [facility] Address: [address] [place] [address] Performed By: #### 5 7021-8 ####[facility] LABCLIA [id number] [place] [address] [place] MCV (RBC) [Entitic vol] 87.9 fL Normal 80.0-100.0 C [facility] Comment on above: Order Comment: Speci men Type: BLOOD SPECIMENOrdering Facility: [facility] Address: [address] [place] [address] Performed By: #### 5 7021-8 ####[facility] LABIA [id number] [place] [address] [place] Monocytes (Bld) [#/Vol] 0.72 10*3/uL Normal <0.87 [facility] Comment on above: Order Comment: Speci men Type: BLOOD SPECIMENOrdering Facility: [facility] Address: [address] [place] [address] Performed By: #### 5 7021-8 ####[facility] LABCLIA [id number] [place] [address] [place] Monocytes/100 WBC (Bld) 9.6 % Normal C [facility] Comment on above: Order Comment: Speci men Type: BLOOD SPECIMENOrdering Facility: [facility] Address: [address] [place] [address] Performed By: #### 5 7021-8 ####[facility] LABCLIA [id number] [place] [address] [place] Neutrophils (Bld) [#/Vol] 5.05 10*3/uL Normal 1.45-7.50 [facility] Comment on above: Order Comment: Speci men Type: BLOOD SPECIMENOrdering Facility: [facility] Address: [address] [place] [address] Performed By: #### 5 7021-8 ####[facility] LABCLIA [id number] [place] [address] [place] Neutrophils/100 WBC (Bld) 67.5 % Normal [facility] Comment on above: Order Comment: Speci men Type: BLOOD SPECIMENOrdering Facility: [facility] Address: [address] [place] [address] Performed By: #### 5 7021-8 ####[facility] LABCLIA [id number] [place] [address] [place] Nucleated RBC (Bld) [#/Vol] 10*3/uL Normal <0.01 [facility] Comment on above: Order Comment: Speci men Type: BLOOD SPECIMENOrdering Facility: [facility] Address: [address] [place] [address] Performed By: #### 5 7021-8 ####[facility] LABCLIA [id number] [place] [address] [place] Nucleated RBC/100 WBC (Bld) [Ratio] 0.0 /100 WBC Normal [facility] Comment on above: Order Comment: Speci men Type: BLOOD SPECIMENOrdering Facility: [facility] Address: [address] [place] [address] Performed By: #### 5 7021-8 ####[facility] LABCLIA [id number] [place] [address] [place] Platelet mean volume (Bld) [Entitic vol] 9.8 fL Normal 9.0-12.7 [facility] Comment on above: Order Comment: Speci men Type: BLOOD SPECIMENOrdering Facility: [facility] Address: [address] [place] [address] Performed By: #### 5 7021-8 ####[facility] LABIA [id number] [place] [address] [place] Platelets (Bld) [#/Vol] 133 10*3/uL Low 150-400 [facility] Comment on above: Order Comment: Speci men Type: BLOOD SPECIMENOrdering Facility: [facility] Address: [address] [place] [address] Performed By: #### 5 7021-8 ####[facility] LABIA [id number] [place] [address] [place] RBC (Bld) [#/Vol] 4.88 10*6/uL Normal 4.20-6.00 [facility] Comment on above: Order Comment: Speci men Type: BLOOD SPECIMENOrdering Facility: [facility] Address: [address] [place] [address] Performed By: #### 5 7021-8 ####[facility] LABIA [id number] [place] [address] [place] WBC (Bld) [#/Vol] 7.48 10*3/uL Normal 3.70-11.00 [facility] Comment on above: Order Comment: Speci men Type: BLOOD SPECIMENOrdering Facility: [facility] Address: [address] [place] [address] Performed By: #### 5 7021-8 ####[facility] LABCLIA [id number] [place] [address] [place] CNOVon 06-30-2024 CNOV Office Visit (FAMPWS ) TODD MATAMOROS ([id number]) 1940 M Date Time Provider Department 06/30/24 10:40 AM [facility] During your visit today, we recorded [...] taking medications as prescribed. Continues to see [employer] for followup Iron deficiency, eating iron rich foods,no signs of bleeding. Last labs in November Mood, overall stable, taking Sertraline. Helps to care for his with dementia. Daughter feels he is doing well. 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 Lower abdomen. BPH (benign prostatic hyperplasia) CAD (coronary artery disease) Diverticulosis of colon (without mention of hemorrhage) GERD (gastroesophageal reflux disease) Hyperlipidemia Hypertension Internal hemorrhoids without mention of complication Macular degeneration NSTEMI (non-ST elevated myocardial infarction) ([facility]) 10/28/2019 Osteoarthritis of left hip Paresthesia [...] 07/28/2007 DIR RPR ANEURYSM ABDOMINAL AORTA 04/20/2011 Max Klarissa EYLEA (AFLIBERCEPT) 2MG INTRAVITREAL INJECTION OD [...] (more content not included)... Normal [facility] Comprehensive metabolic 2000 panelon 06-30-2024 Albumin [Mass/Vol] 4.2 g/dL Normal 3.9-4.9 [facility] Comment on above: Order Comment: Speci men Type: BLOOD SPECIMENOrdering Facility: [facility] Address: [address] [place] [address] Performed By: #### 2 4323-8, LIPNF, 3015-10, ####[facility] LABCLIA [id number] [place] [address] [place] ALP [Catalytic activity/Vol] 123 U/L High 38-113 [facility] Comment on above: Order Comment: Speci men Type: BLOOD SPECIMENOrdering Facility: [facility] Address: [address] [place] [address] Performed By: #### 2 4323-8, LIPNF, 3015-10, ####[facility] LABCLIA [id number] [place] [address] [place] ALT [Catalytic activity/Vol] 12 U/L Normal 10-54 [facility] Comment on above: Order Comment: Speci men Type: BLOOD SPECIMENOrdering Facility: [facility] Address: [address] [place] [address] Performed By: #### 2 4323-8, LIPNF, 6-3, ####[facility] LABCLIA [id number] [place] [address] [place] Anion gap [Moles/Vol] 11 mmol/L Normal 8-15 [facility] Comment on above: Order Comment: Speci men Type: BLOOD SPECIMENOrdering Facility: [facility] Address: [address] [place] [address] Performed By: #### 2 4323-8, LIPNF, 6-3, ####[facility] LABCLIA [id number] [place] [address] [place] AST [Catalytic activity/Vol] 13 U/L Low 14-40 [facility] Comment on above: Order Comment: Speci men Type: BLOOD SPECIMENOrdering Facility: [facility] Address: [address] [place] [address] Performed By: #### 2 4323-8, LIPNF, 6-3, ####[facility] LABCLIA [id number] [place] [address] [place] Bilirubin [Mass/Vol] 0.6 mg/dL Normal 0.2-1.3 [facility] Comment on above: Order Comment: Speci men Type: BLOOD SPECIMENOrdering Facility: [facility] Address: [address] [place] [address] Performed By: #### 2 4323-8, LIPNF, 3015-3, ####[facility] LABCLIA [id number] [place] [address] [place] Calcium [Mass/Vol] 9.3 mg/dL Normal 8.5-10.2 [facility] Comment on above: Order Comment: Speci men Type: BLOOD SPECIMENOrdering Facility: [facility] Address: [address] [place] [address] Performed By: #### 2 4323-8, LIPNF, 6-3, ####[facility] LABCLIA [id number] [place] [address] [place] Chloride [Moles/Vol] 105 mmol/L Normal 98-107 [facility] Comment on above: Order Comment: Speci men Type: BLOOD SPECIMENOrdering Facility: [facility] Address: [address] [place] [address] Performed By: #### 2 4323-8, LIPNF, 6-3, ####[facility] LABIA [id number] [place] [address] [place] CO2 [Moles/Vol] 21 mmol/L Low 22-30 [facility] Comment on above: Order Comment: Speci men Type: BLOOD SPECIMENOrdering Facility: [facility] Address: [address] [place] [address] Performed By: #### 2 4323-8, LIPNF, 6-3, ####[facility] LABIA [id number] [place] [address] [place] Creatinine [Mass/Vol] 1.09 mg/dL Normal 0.73-1.22 [facility] Comment on above: Order Comment: Speci men Type: BLOOD SPECIMENOrdering Facility: [facility] Address: [address] [place] [address] Performed By: #### 2 4323-8, LIPNF, 3015-3, ####[facility] LABIA [id number] [place] [address] [place] Creatinine and Glomerular filtration rate.predicted panel (S/P/Bld) 67 mL/min/1.73m??? Normal >=60 [facility] Comment on above: Order Comment: Speci men Type: BLOOD SPECIMENOrdering Facility: [facility] Address: [address] [place] [address] Result Comment: Shannan mated Glomerular Filtration Rate [...] Performed By: #### 2 4323-8, ALEJA, 3015-3, ####[facility] LABIA [id number] [address] [address] [place] Glucose [Mass/Vol] 98 mg/dL Normal 74-99 [facility] Comment on above: Order Comment: Speci men Type: BLOOD SPECIMENOrdering Facility: [facility] Address: [address] [place] [address] Result Comment: The [place] Diabetes Association (ADA) provides guidance for cutoff [...] Standards of Medical Care in Diabetes 2016, [place] [employer]. Diabetes Care. 2016.39(Suppl 1). Performed By: #### 2 4323-8, LIPTITO, 3015-3, ####[facility] LABIA [id number] [address] [address] [place] Potassium [Moles/Vol] 4.0 mmol/L Normal 3.7-5.1 [facility] Comment on above: Order Comment: Speci men Type: BLOOD SPECIMENOrdering Facility: [facility] Address: [address] [id number] Performed By: #### 2 4323-8, LIPNF, 3016-3, ####[facility] LABCLIA [id number] [address] [address] [place] Protein [Mass/Vol] 6.6 g/dL Normal 6.3-8.0 [facility] Comment on above: Order Comment: Speci men Type: BLOOD SPECIMENOrdering Facility: [facility] Address: [address] [place] [address] Performed By: #### 2 4323-8, LIPNF, 6-3, ####[facility] LABIA [id number] [place] [address] [place] Sodium [Moles/Vol] 137 mmol/L Normal 136-144 [facility] Comment on above: Order Comment: Speci men Type: BLOOD SPECIMENOrdering Facility: [facility] Address: [address] [place] [address] Performed By: #### 2 4323-8, LIPNF, 6-3, ####[facility] LABIA [id number] [place] [address] [place] Urea nitrogen [Mass/Vol] 22 mg/dL Normal 9-24 [facility] Comment on above: Order Comment: Speci men Type: BLOOD SPECIMENOrdering Facility: [facility] Address: [address] [place] [address] Performed By: #### 2 4323-8, LIPNF, 6-3, ####[facility] LABIA [id number] [place] [id number] [place] HbA1c (Bld)on 06-30-2024 Average glucose Estimated from glycated hemoglobin (Bld) [Mass/Vol] 100 mg/dL Normal [facility] Comment on above: Order Comment: Speci men Type: BLOOD SPECIMENOrdering Facility: [facility] Address: [address] [place] [address] Result Comment: eAG: (Estimated average glucose) is a calculated value from HgbA1c and is fuels sales representative of the average blood glucose level in the last 2-3 month period. Performed By: #### 5 5454-3 ####[facility] LABCLIA [id number] [place] [address] [place] HbA1c (Bld) [Mass fraction] 5.1 % Normal 4.3-5.6 [facility] Comment on above: Order Comment: Christian modi Type: BLOOD SPECIMENOrdering Facility: [facility] Address: [address] [place] [address] Result Comment: [place] Diabetes Association guidelines indicate that patients with HgbA1c in the range 5.7-6.4% are at increased risk for development of diabetes, and intervention by lifestyle modification may be beneficial. HgbA1c greater or equal to 6.5% is considered diagnostic of diabetes. Performed By: #### 5 5454-3 ####[facility] LABIA [id number] [place] [address] [place] LIPID PANEL, NONFASTINGon Cholesterol [Mass/Vol] 126 mg/dL Normal <[address] [facility] Comment on above: Order Comment: Christian modi Type: BLOOD SPECIMENOrdering Facility: [facility] Address: [address] [place] [address] Result Comment: <200 mg/dL, Desirable 200-239 mg/dL, Borderline high >239 mg/dL, High Performed By: #### 2 4323-8, LIPNF, 3016-3, 93020-4 ####[facility] LABIA [id number] [place] [address] [place] HDL CHOLESTEROL, NF 33 mg/dL Low >39 [facility] Comment on above: Order Comment: Christian modi Type: BLOOD SPECIMENOrdering Facility: [facility] Address: [address] [place] [address] Result Comment: 40-5 9 mg/dL, Acceptable >59 mg/dL, High: Negative risk factor for coronary heart disease <40 mg/dL, Low: Positive risk factor for coronary heart disease Performed By: #### 2 4323-8, LIPNF, 3015-3, ####[facility] LABCLIA [id number] [place] [address] [place] LDL CHOLESTEROL, NF 43 mg/dL Normal <100 [facility] Comment on above: Order Comment: Speci men Type: BLOOD SPECIMENOrdering Facility: [facility] Address: [address] [place] [address] Result Comment: <100 mg/dL, Optimal 100-129 mg/dL, Near optimal/above optimal 130-159 mg/dL, Borderline high 160-189 mg/dL, High >189 mg/dL, Very high Secondary prevention optimal LDL Cholesterol levels are recommended to be < 70 mg/dL Performed By: #### 2 4323-8, LIPNF, 3015-10, ####[facility] LABCLIA [id number] [address] [place] LDL/HDL RATIO, NF 1.30 mg/dL Normal <2.54 [facility] Comment on above: Order Comment: Emii men Type: BLOOD SPECIMENOrdering Facility: [facility] Address: [address] [place] [address] Result Comment: Refe isabellce: 1. National Cholesterol Education Program ATP III Guideline At-A-Glance Quick Desk Reference: National Heart, Lung, and Blood [place]. National Institutes of Health. 2001: NIH Publication No. 01-3305. 2. An International Atherosclerosis Society position paper: global recommendations for the management of dyslipidemia: executive summary, Atherosclerosis. 2014: 232(2):410-413. Performed By: #### 2 4323-8, LIPNF, 3015-, ####[facility] LABCLIA [id number] [place] [address] [place] NON HDL CHOL, NF 93 mg/dL Normal <130 [facility] Comment on above: Order Comment: Speci men Type: BLOOD SPECIMENOrdering Facility: [facility] Address: [address] [place], [place] [id number] Result Comment: <130 mg/dL, Optimal 130-159 mg/dL, Near optimal/above optimal 160-189 mg/dL, Borderline high 190-219 mg/dL, High >219 mg/dL, Very high Secondary prevention optimal non HDL Cholesterol levels are recommended to be <100 mg/dL Performed By: #### 2 4323-8, LIPNF, 3015-3, ####[facility] LABCLIA [id number] [place] [address] [place] T CHOL/HDL RATIO NF 3.82 mg/dL Normal <5.10 [facility] Comment on above: Order Comment: Speci men Type: BLOOD SPECIMENOrdering Facility: [facility] Address: [address] [place] [address] Performed By: #### 2 4323-8, LIPNF, 3015-10, ####[facility] LABCLIA [id number] [place] [address] [place] TRIGLYCERIDES, NF 251 mg/dL High <150 [facility] Comment on above: Order Comment: Speci men Type: BLOOD SPECIMENOrdering Facility: [facility] Address: [address] [place] [address] Result Comment: <150 mg/dL, Normal 150-199 mg/dL, Borderline high 200-499 mg/dL, High >499 mg/dL, Very high Performed By: #### 2 4323-8, LIPNF, 3015-10, ####[facility] LABCLIA [id number] [place] [id number] [place] VLDL CHOLESTEROL, NF 50 mg/dL High <30 [facility] Comment on above: Order Comment: Speci men Type: BLOOD SPECIMENOrdering Facility: [facility] Address: [address] [place] [address] Performed By: #### 2 4323-8, LIPNF, 3015-10, ####[facility] LABCLIA [id number] [address] [address] [place] Magnesium SerPl-mCncon 06-30 Magnesium [Mass/Vol] 2.2 mg/dL Normal 1.7-2.3 [facility] Comment on above: Order Comment: Speci men Type: BLOOD SPECIMENOrdering Facility: [facility] Address: [address] [place] [address] Performed By: #### 2 4323-8, LIPNF, 3015-10, ####[facility] LABIA [id number] [place] [id number] [place] TSH SerPl-aCncon 06-30-2024 TSH Qn 2.020 m[IU]/L Normal 0.270-4.200 [facility] Comment on above: Order Comment: Speci men Type: BLOOD SPECIMENOrdering Facility: [facility] Address: [address] [place] [address] Performed By: #### 2 4323-8, LIPNF, 3015-10, ####[facility] LABIA [id number] [place] [address] [place] Urinalysis complete panel (U )on 06-30-2024 Bacteria LM.HPF (Urine sed) [#/Area] Negative Normal Negative [facility] Comment on above: Order Comment: Speci men Type: URINE SPECIMENOrdering Facility: [facility] Address: [address] [place] [address] Performed By: #### 2 4356-8 ####[facility] LABIA [id number] [place] [address] [place] Bilirubin Ql (U) Negative Normal Negative [facility] Comment on above: Order Comment: Speci men Type: URINE SPECIMENOrdering Facility: [facility] Address: [address] [place] [address] Performed By: #### 2 4356-8 ####[facility] LABCLIA [id number] [place] [address] [place] Clarity (Unsp spec) Clear Normal Clear [facility] Comment on above: Order Comment: Speci men Type: URINE SPECIMENOrdering Facility: [facility] Address: [address] [place] [address] Performed By: #### 2 4356-8 ####[facility] LABCLIA [id number] [place] [address] [place] Color (U) Dark Yellow Abnormal Yellow [facility] Comment on above: Order Comment: Speci men Type: URINE SPECIMENOrdering Facility: [facility] Address: [address] [place] [address] Performed By: #### 2 4356-8 ####[facility] LABCLIA [id number] [place] [address] [place] Epithelial cells LM.HPF (Urine sed) [#/Area] Few Normal [facility] Comment on above: Order Comment: Speci men Type: URINE SPECIMENOrdering Facility: [facility] Address: [address] [place] [address] Performed By: #### 2 4356-8 ####[facility] LABCLIA [id number] [place] [address] [place] Glucose Test strip (U) [Mass/Vol] Negative Normal Negative [facility] Comment on above: Order Comment: Speci men Type: URINE SPECIMENOrdering Facility: [facility] Address: [address] [place] [address] Performed By: #### 2 4356-8 ####[facility] LABCLIA [id number] [place] [address] [place] Hemoglobin Ql (U) Negative Normal Negative [facility] Comment on above: Order Comment: Speci men Type: URINE SPECIMENOrdering Facility: [facility] Address: [address] [place] [address] Performed By: #### 2 4356-8 ####[facility] LABCLIA [id number] [place] [address] [place] Hyaline casts (Urine sed) [#/Area] 0 /[LPF] Normal 0 /LPF [facility] Comment on above: Order Comment: Speci men Type: URINE SPECIMENOrdering Facility: [facility] Address: [address] [place] [address] Performed By: #### 2 4356-8 ####[facility] LABCLIA [id number] [place] [address] [place] Ketones Ql (U) Negative Normal Negative [facility] Comment on above: Order Comment: Speci men Type: URINE SPECIMENOrdering Facility: [facility] Address: [address] [place] [address] Performed By: #### 2 4356-8 ####[facility] LABCLIA [id number] [place] [address] [place] Leukocyte esterase Test strip Ql (U) Negative Normal Negative [facility] Comment on above: Order Comment: Speci men Type: URINE SPECIMENOrdering Facility: [facility] Address: [address] [place] [address] Performed By: #### 2 4356-8 ####[facility] LABCLIA [id number] [place] [address] [place] Nitrite Ql (U) Negative Normal Negative [facility] Comment on above: Order Comment: Speci men Type: URINE SPECIMENOrdering Facility: [facility] Address: [address] [place] [address] Performed By: #### 2 4356-8 ####[facility] LABCLIA [id number] [place] [address] [place] pH (U) 5.5 [pH] Normal <8.5 [facility] Comment on above: Order Comment: Speci men Type: URINE SPECIMENOrdering Facility: [facility] Address: [address] [place] [address] Performed By: #### 2 4356-8 ####[facility] LABIA [id number] [place] [address] [place] Protein (U) [Mass/Vol] Trace Abnormal Negative Cl [facility] Comment on above: Order Comment: Speci men Type: URINE SPECIMENOrdering Facility: [facility] Address: [address] [place] [address] Performed By: #### 2 4356-8 ####[facility] [id number] [place] [address] [place] RBC LM.HPF (Urine sed) [#/Area] 0-2 /HPF Normal 0-2 /HPF [facility] Comment on above: Order Comment: Speci men Type: URINE SPECIMENOrdering Facility: [facility] Address: [address] [place] [address] Performed By: #### 2 4356-8 ####[facility] [id number] [place] [address] [place] Specific gravity (U) [Rel density] 1.024 Normal 1.005-1.030 [facility] Comment on above: Order Comment: Speci men Type: URINE SPECIMENOrdering Facility: [facility] Address: [address] [place] [address] Performed By: #### 2 4356-8 ####[facility] [id number] [place] [address] [place] Urobilinogen Ql (U) 1.0 EU/dL Normal 0.2-1.0 EU/dL [facility] Comment on above: Order Comment: Speci men Type: URINE SPECIMENOrdering Facility: [facility] Address: [address] [place] [address] Performed By: #### 2 4356-8 ####[facility] LABCLIA [id number] [place] [id number] [place] WBC LM.HPF (Urine sed) [#/Area] 0-5 /HPF Normal 0-5 /HPF [facility] Comment on above: Order Comment: Speci men Type: URINE SPECIMENOrdering Facility: [facility] Address: [address] [place] [address] Performed By: #### 2 4356-8 ####[facility] LABCLIA [id number] [place] [id number] [place] Vit B12 [facility] 06-30- 024 Cobalamin (Vitamin B12) [Mass/Vol] 1079 pg/mL Normal 232-1245 [facility] Comment on above: Order Comment: Speci men Type: BLOOD SPECIMENOrdering Facility: [facility] Address: [address] [place] [address] Performed By: #### 2 132-9 ####[facility] LABCLIA [id number] [place] [id number] [place] 25-hydroxyvitamin D3 [Mass/V ol]on 12-22-2023 Interpretation and review of laboratory results Normal [facility] The reference range interval was based on an analysis of samples from healthy adults and may not pertain to children from 0-18 years old. [facility] CBC W Auto Differential pane l (Bld)on 12-22-2023 Basophils (Bld) [#/Vol] 0.03 10*3/uL [facility] Basophils/100 WBC (Bld) 0.4 % [facility] Differential cell count method Nom (Bld) Auto [facility] Eosinophils (Bld) [#/Vol] 0.54 10*3/uL High [facility] Eosinophils/100 WBC (Bld) 7.7 % [facility] Erythrocyte distribution width (RBC) [Ratio] 14.2 % 11.5 - 15.0 % [facility] Hematocrit (Bld) [Volume fraction] 44.0 % 39.0 - 51.0 % [facility] Hemoglobin (Bld) [Mass/Vol] 15.2 g/dL 13.0 - 17.0 g/dL [facility] Immature granulocytes (Bld) [#/Vol] 0.03 10*3/uL [facility] Immature granulocytes/100 WBC (Bld) 0.4 % [facility] Interpretation and review of laboratory results Abnormal [facility] Lymphocytes (Bld) [#/Vol] 1.45 10*3/uL [facility] Lymphocytes/100 WBC (Bld) 20.7 % [facility] MCH (RBC) [Entitic mass] 30.5 pg 26.0 - 34.0 pg [facility] MCHC (RBC) [Mass/Vol] 34.5 g/dL 30.5 - 36.0 g/dL [facility] MCV (RBC) [Entitic vol] 88.2 fL 80.0 - 100.0 fL [facility] Monocytes (Bld) [#/Vol] 0.62 10*3/uL [facility] Monocytes/100 WBC (Bld) 8.8 % [facility] Neutrophils (Bld) [#/Vol] 4.34 10*3/uL [facility] Neutrophils/100 WBC (Bld) 62.0 % [facility] Nucleated RBC (Bld) [#/Vol] [facility] Nucleated RBC/100 WBC (Bld) [Ratio] 0.0 % /100 WBC [facility] Platelet mean volume (Bld) [Entitic vol] 10.0 fL 9.0 - 12.7 fL [facility] Platelets (Bld) [#/Vol] 126 10*3/uL Low [facility] RBC (Bld) [#/Vol] 4.99 10*6/uL 4.20 - 6.0 0 m/uL [facility] WBC (Bld) [#/Vol] 7.01 10*3/uL [facility] VITAMIN D 25 HYDROXYon 12-21 25-hydroxyvitamin D3 [Mass/Vol] 47.9 ng/mL 31.0 - 80.0 ng/mL [facility] Comment on above: Classification of 25 [place] Vitamin D status: Deficiency/Insufficiency: < or = 30 ng/ml. Sufficiency/Optimal Levels: 31-80 ng/mL Toxicity: > 100 ng/mL. Test performed by chemiluminescent immunoassay. CBC W Auto Differential pane l (Bld)on 12-06-2022 Basophils (Bld) [#/Vol] 0.03 10*3/uL <0.11 k/uL [facility] Basophils/100 WBC (Bld) 0.4 % [facility] Differential cell count method Nom (Bld) Auto [facility] Eosinophils (Bld) [#/Vol] 0.23 10*3/uL <0.46 k/uL [facility] Eosinophils/100 WBC (Bld) 3.3 % [facility] Erythrocyte distribution width (RBC) [Ratio] 16.5 % High 11.5 - 15.0 % [facility] Hematocrit (Bld) [Volume fraction] 38.5 % Low 39.0 - 51.0 % [facility] Hemoglobin (Bld) [Mass/Vol] 12.2 g/dL Low 13.0 - 17.0 g/dL [facility] Immature granulocytes (Bld) [#/Vol] 0.03 10*3/uL <0.10 k/uL [facility] Immature granulocytes/100 WBC (Bld) 0.4 % [facility] Lymphocytes (Bld) [#/Vol] 1.41 10*3/uL 1.00 - 4.00 k/uL [facility] Lymphocytes/100 WBC (Bld) 20.5 % [facility] MCH (RBC) [Entitic mass] 25.6 pg Low 26.0 - 34.0 pg [facility] MCHC (RBC) [Mass/Vol] 31.7 g/dL 30.5 - 36.0 g/dL [facility] MCV (RBC) [Entitic vol] 80.7 fL 80.0 - 100.0 fL [facility] Monocytes (Bld) [#/Vol] 0.75 10*3/uL <0.87 k/uL [facility] Monocytes/100 WBC (Bld) 10.9 % [facility] Neutrophils (Bld) [#/Vol] 4.43 10*3/uL 1.45 - 7.50 k/uL [facility] Neutrophils/100 WBC (Bld) 64.5 % [facility] Nucleated RBC (Bld) [#/Vol] <0.01 k/uL [facility] Nucleated RBC/100 WBC (Bld) [Ratio] 0.0 /100 WBC [facility] Platelet mean volume (Bld) [Entitic vol] 10.0 fL 9.0 - 12.7 fL [facility] Platelets (Bld) [#/Vol] 174 10*3/uL 150 - 400 k/uL [facility] RBC (Bld) [#/Vol] 4.77 10*6/uL 4.20 - 6.0 0 m/uL [facility] WBC (Bld) [#/Vol] 6.88 10*3/uL 3.70 - 11.00 k/uL [facility] Comprehensive metabolic 2000 panelon 12-06-2022 Albumin [Mass/Vol] 4.1 g/dL 3.9 - 4.9 g/dL [facility] ALP [Catalytic activity/Vol] 97 U/L 38 - 113 U/L [facility] ALT [Catalytic activity/Vol] 14 U/L 10 - 54 U/L [facility] Anion gap [Moles/Vol] 8 mmol/L Low 9 - 18 mmol/L [facility] AST [Catalytic activity/Vol] 16 U/L 14 - 40 U/L [facility] Bilirubin [Mass/Vol] 0.4 mg/dL 0.2 - 1 .3 mg/dL [facility] Calcium [Mass/Vol] 10.1 mg/dL 8.5 - 10. 2 mg/dL [facility] Chloride [Moles/Vol] 104 mmol/L 97 - 10 5 mmol/L [facility] CO2 [Moles/Vol] 26 mmol/L 22 - 30 mmol/L [facility] Creatinine [Mass/Vol] 1.24 mg/dL High 0.73 - 1.22 mg/dL [facility] Estimated Glomerular Filtration Rate 58 mL/min/1.73m Low >=60 mL/min/1.73 m [facility] Glucose [Mass/Vol] 84 mg/dL 74 - 99 mg/dL [facility] Potassium [Moles/Vol] 4.3 mmol/L 3.7 - 5.1 mmol/L [facility] Protein [Mass/Vol] 7.0 g/dL 6.3 - 8.0 g/dL [facility] Sodium [Moles/Vol] 138 mmol/L 136 - 144 mmol/L [facility] Urea nitrogen [Mass/Vol] 18 mg/dL 9 - 24 mg/dL [facility] FERRITIN BLDon 12-06-2022 Ferritin [Mass/Vol] 28.5 ng/mL Low 30.3 - 565.7 ng/mL [facility] Iron and Iron binding capaci ty panelon 12-06-2022 Iron [Mass/Vol] 39 ug/dL Low 41 - 186 ug/dL [facility] Iron binding capacity [Mass/Vol] 381 ug/dL 232 - 386 ug/dL [facility] Iron/TIBC [Molar ratio] 10.2 % Low 15.0 - 57.0 % [facility] PSA/PROSTSPECAG SCRNon 12-06 Prostate specific Ag [Mass/Vol] 1.90 ng/mL <2.60 ng/mL [facility] TSH BLDon 12-06-2022 TSH Qn 1.980 m[IU]/L 0.270 - 4.200 mIU/L [facility] VITAMIN B12 BLOODon 12-07-19 Cobalamin (Vitamin B12) [Mass/Vol] 911 pg/mL 232 - 1,245 pg/mL [facility] VITAMIN D 25 HYDROXYon 12-06 25-hydroxyvitamin D3 [Mass/Vol] 57.5 ng/mL 31.0 - 80.0 ng/mL [facility] CBC panel Auto (Bld)on 06-18 Erythrocyte distribution width (RBC) [Ratio] 14.5 % 11.5 - 15.0 % [facility] Hematocrit (Bld) [Volume fraction] 29.4 % Low 39.0 - 51.0 % [facility] Hemoglobin (Bld) [Mass/Vol] 10.1 g/dL Low 13.0 - 17.0 g/dL [facility] MCH (RBC) [Entitic mass] 30.6 pg 26.0 - 34.0 pg [facility] MCHC (RBC) [Mass/Vol] 34.4 g/dL 30.5 - 36.0 g/dL [facility] MCV (RBC) [Entitic vol] 89.1 fL 80.0 - 100.0 fL [facility] Nucleated RBC (Bld) [#/Vol] 0.02 10*3/uL High <0.01 k/uL [facility] Platelet mean volume (Bld) [Entitic vol] 10.3 fL 9.0 - 12.7 fL [facility] Platelets (Bld) [#/Vol] 168 10*3/uL 150 - 400 k/uL [facility] RBC (Bld) [#/Vol] 3.30 10*6/uL Low 4.20 - 6.0 0 m/uL [facility] WBC (Bld) [#/Vol] 9.59 10*3/uL 3.70 - 11.00 k/uL [facility] Absolute lymphocyte counton 06-15-2022 Lymphocytes Auto (Unsp spec) [#/Vol] 1.01 10*3/uL 0.83-4.51 [facility] Work Phone: Basophil percentageon 2021 Basophils/100 WBC (Bld) 0.2 % 0-1 [facility] Work Phone: Eosinophils/100 WBC (Bld) 0.9 % 0-5 [facility] Work Phone: Neutrophils (Bld) [#/Vol] 6.1 10*3/uL 2.0-7.7 [facility] Work Phone: Neutrophils/100 WBC (Bld) 75.6 % 47-70 [facility] Work Phone: WBC (Bld) [#/Vol] 8.1 10*3/uL 4.4-11.0 [facility] Work Phone: Chloride [Moles/Vol] 111 mmol/L 98-107 [facility] Work Phone: Glucose [Mass/Vol] 123 mg/dL 74-106 [facility] Work Phone: Comment on above: Fasting Glucose resu lt from 100 to 125 mg/dL suggests IMPAIRED HOMEOSTASIS per A.D.A. criteria. Potassium [Moles/Vol] 3.5 mmol/L 3.5-5.1 [facility] Work Phone: Sodium [Moles/Vol] 141 mmol/L 136-145 [facility] Work Phone: [phone] Blood erythrocytes count (nu mber/volume)on 06-15-2022 RBC (Bld) [#/Vol] 3.03 10*6/uL 4.6-6.2 [facility]: Blood hemoglobin measurement (mass/volume)on 06-15-2022 Hemoglobin (Bld) [Mass/Vol] 9.0 g/dL 13.0-16.5 [facility] Work Phone: Blood lymphocytes/100 leukoc yteson 06-15-2022 Lymphocytes/100 WBC (Bld) 12.4 % 19-41 [facility] Work Phone: Blood monocytes/100 leukocyt eson 06-15-2022 Monocytes/100 WBC (Bld) 10.3 % 0-10 [facility] Work Phone: Blood platelet mean volumeon 06-15-2022 Platelet mean volume (Bld) [Entitic vol] 9.2 fL 6.2-12.0 [facility] Work Phone: Determination of erythrocyte mean corpuscular volume (MCV)on 06-15-2022 MCV (RBC) [Entitic vol] 88.1 fL 80-94 [facility] Work Phone: Hematocrit Auto (Bld) [Volum e fraction]on 06-15-2022 Hematocrit (Bld) [Volume fraction] 26.7 % 40-54 [facility] Work Phone: Laboratory - Chemistry and C hemistry - challengeon 06-15-2022 CO2 [Moles/Vol] 26.0 mmol/L 21.0-32.0 [facility] Work Phone: Urea nitrogen/Creatinine [Mass ratio] 38.5 mg/mg 10-20 [facility] Work Phone: Laboratory - Hematology and Cell countson 06-15-2022 Erythrocyte distribution width (RBC) [Entitic vol] 44.9 fL 35.1-43.9 [facility] Work Phone: Erythrocyte distribution width (RBC) [Ratio] 14.1 % 11.6-14.6 [facility] Work Phone: Immature granulocytes/100 WBC (Bld) 0.600 % 0.0-0.9 [facility] Work Phone: Comment on above: IG% - Immature Granu locytes (promyelocytes, myelocytes and metamyelocytes) > 1% indicates that a LEFT SHIFT is Present. MCH (RBC) [Entitic mass] 29.7 pg 27.0-32.0 [facility] Work Phone: Nucleated RBC/100 WBC (Bld) [Ratio] 0 % 0-5 [facility] Work Phone: MCHC Auto (RBC) [Mass/Vol]on 06-15-2022 MCHC (RBC) [Mass/Vol] 33.7 g/dL 32-36 [facility] Work Phone: No Panel Informationon 06-15 Estimated Creatinine Clearance Calc 46.34 ml/min [facility] Work Phone: Estimated GFR (MDRD) Amer 83 mL/min >60 [facility] Work Phone: Comment on above: GFR Calc Estimated GFR (MDRD) Non-Af Amer 69 mL/min >60 [facility] Work Phone: Comment on above: Non- GFR Calc Platelets bldon 06-15-2022 Platelets (Bld) [#/Vol] 109 10*3/uL 150-450 [facility] Work Phone: Serum or plasma calcium kimmie urement (mass/volume)on 06-15-2022 Calcium [Mass/Vol] 8.5 mg/dL 8.5-10.1 [facility] Work Phone: Serum or plasma creatinine m easurement (mass/volume)on 06-15-2022 Creatinine [Mass/Vol] 1.09 mg/dL 0.70-1.30 [facility] Work Phone: Comment on above: The validity of the calculated GFR & GFRAA in patients over 70 years has not been determined. Clinical correlation is essential. Serum or plasma urea nitroge n measurement (mass/volume)on 06-15-2022 Urea nitrogen [Mass/Vol] 42 mg/dL 7-18 [facility] Work Phone: Thin prep Papanicolaou smear with manual screeningon 06-15-2022 Thin prep Papanicolaou smear with manual screening 4 5-15 [facility] Work Phone: Basophil percentageon 2021 Basophil percentage 2.2 mg/dL 2.5-4.9 [facility] Work Phone: No Panel Informationon 06-14 Thyroid Stimulating Hormone (TSH) 0.56 uIU/mL 0.358-3.74 [facility] Work Phone: Review by pathologiston 05-26 Pathologist review Xu (Unsp spec) [Interp] Reviewed [facility] Work Phone: Comment on above: Previous reported re sult: Candace jackson Edited by: BAIRON on 06/14/22:1324Neutrophilic leukocytosis.Normocytic anemia.Clinical correlation suggested.Devon Hodgson D.O. 06/14/22 AMENDED REPORT 06/14/22 1324 PATH REV previously reported as: Candace jackson Absolute lymphocyte counton 06-13-2022 Lymphocytes Auto (Unsp spec) [#/Vol] 1.16 10*3/uL 0.83-4.51 [facility] Work Phone: Basophil percentageon 2021 Basophil percentage 0 SEEN /hpf 0-5 [facility] Work Phone: [phone] Basophils/100 WBC (Bld) 0.1 % 0-1 [facility] Work Phone: [phone] Bilirubin [Mass/Vol] 1.00 mg/dL 0.20-1.00 [facility] Work Phone: [phone] Comment on above: For patients on eltr ombopag therapy, use of Dimension Ucon TBIL is not recommended. Chloride [Moles/Vol] 98 mmol/L 98-107 [facility] Work Phone: Eosinophils/100 WBC (Bld) 0.0 % 0-5 [facility] Work Phone: Glucose [Mass/Vol] 178 mg/dL 74-106 [facility] Work Phone: Comment on above: Fasting Glucose resu lt greater than or equal to 126 mg/dL suggests DIABETES MELLITUS per A.D.A. criteria. Neutrophils (Bld) [#/Vol] 14.4 10*3/uL 2.0-7.7 [facility] Work Phone: Neutrophils/100 WBC (Bld) 85.3 % 47-70 [facility] Work Phone: Potassium [Moles/Vol] 4.5 mmol/L 3.5-5.1 [facility] Work Phone: Comment on above: Moderate Hemolysis, Result may be falsely increased. Protein [Mass/Vol] 7.4 g/dL 6.4-8.2 [facility] Work Phone: Sodium [Moles/Vol] 136 mmol/L 136-145 [facility] Work Phone: WBC (Bld) [#/Vol] 16.9 10*3/uL 4.4-11.0 [facility] Work Phone: Bilirubin Test strip Ql (U)o n 06-13-2022 Bilirubin Ql (U) Negative Negative [facility] Work Phone: Blood erythrocytes count (nu mber/volume)on 06-13-2022 RBC (Bld) [#/Vol] 4.89 10*6/uL 4.6-6.2 [facility] Work Phone: Blood hemoglobin measurement (mass/volume)on 06-13-2022 Hemoglobin (Bld) [Mass/Vol] 14.5 g/dL 13.0-16.5 [facility] Work Phone: Blood lymphocytes/100 leukoc yteson 06-13-2022 Lymphocytes/100 WBC (Bld) 6.9 % 19-41 [facility] Work Phone: Blood monocytes/100 leukocyt eson 06-13-2022 Monocytes/100 WBC (Bld) 7.2 % 0-10 [facility] Work Phone: Blood platelet mean volumeon 06-13-2022 Platelet mean volume (Bld) [Entitic vol] 9.3 fL 6.2-12.0 [facility] Work Phone: Determination of erythrocyte mean corpuscular volume (MCV)on 06-13-2022 MCV (RBC) [Entitic vol] 87.1 fL 80-94 [facility] Work Phone: Hematocrit Auto (Bld) [Volum e fraction]on 06-13-2022 Hematocrit (Bld) [Volume fraction] 42.6 % 40-54 [facility] Work Phone: INR in Blood by Coagulation assayon 06-13-2022 INR Coag (Bld) [Relative time] 1.2 {INR} [facility] Work Phone: Ketones Test strip Ql (U)on 06-13-2022 Ketones Ql (U) 15 mg/dl Negative [facility] Work Phone: Laboratory - Chemistry and C hemistry - challengeon 06-13-2022 ALP [Catalytic activity/Vol] 88 U/L 45-117 [facility] Work Phone: ALT [Catalytic activity/Vol] 18 U/L 16-61 [facility] Work Phone: [phone] CO2 [Moles/Vol] 29.0 mmol/L 21.0-32.0 [facility] Work Phone: Globulin (S) [Mass/Vol] 3.6 g/dL 2.2-4.2 [facility] Work Phone: [phone] Lipase [Catalytic activity/Vol] 46 U/L 73-393 [facility] Work Phone: Magnesium [Mass/Vol] 2.2 mg/dL 1.6-2.6 [facility] Work Phone: Comment on above: Moderate Hemolysis, Result may be falsely increased. Urea nitrogen/Creatinine [Mass ratio] 30.3 mg/mg 06-13 [facility] Work Phone: Laboratory - Coagulationon 1 PT Coag (PPP) [Time] 15.0 s 11.7-14.9 [facility] Work Phone: Laboratory - Hematology and Cell countson 06-13-2022 Erythrocyte distribution width (RBC) [Entitic vol] 44.2 fL 35.1-43.9 [facility] Work Phone: Erythrocyte distribution width (RBC) [Ratio] 13.9 % 11.6-14.6 [facility] Work Phone: Immature granulocytes/100 WBC (Bld) 0.500 % 0.0-0.9 [facility] Work Phone: Comment on above: IG% - Immature Granu locytes (promyelocytes, myelocytes and metamyelocytes) > 1% indicates that a LEFT SHIFT is Present. MCH (RBC) [Entitic mass] 29.7 pg 27.0-32.0 [facility] Work Phone: Nucleated RBC/100 WBC (Bld) [Ratio] 0 % 0-5 [facility] Work Phone: MCHC Auto (RBC) [Mass/Vol]on 06-13-2022 MCHC (RBC) [Mass/Vol] 34.0 g/dL 32-36 [facility] Work Phone: Mucus LM Ql (Urine sed)on Mucus Ql (Urine sed) 0 SEEN /hpf [facility] Work Phone: Nitrite Test strip Ql (U)on 06-13-2022 Nitrite Ql (U) Negative Negative [facility] Work Phone: No Panel Informationon 06-13 Estimated Creatinine Clearance Calc 36.09 ml/min [facility] Work Phone: Estimated GFR (MDRD) Amer 60 mL/min >60 [facility] Work Phone: Comment on above: GFR Calc Estimated GFR (MDRD) Non-Af Amer 49 mL/min >60 [facility] Work Phone: Comment on above: Non- GFR Calc Platelets bldon 06-13-2022 Platelets (Bld) [#/Vol] 205 10*3/uL 150-450 [facility] Work Phone: Protein Test strip Ql (U)on 06-13-2022 Protein Ql (U) 30 mg/dl Negative [facility] Work Phone: Serum or plasma albumin kimmie urement (mass/volume)on 06-13-2022 Albumin [Mass/Vol] 3.8 g/dL 3.2-5.0 [facility] Work Phone: Serum or plasma albumin/glob ulin mass ratioon 06-13-2022 Albumin/Globulin [Mass ratio] 1.1 {ratio} 0.9-2.4 [facility] Work Phone: Serum or plasma calcium kimmie urement (mass/volume)on 06-13-2022 Calcium [Mass/Vol] 9.7 mg/dL 8.5-10.1 [facility] Work Phone: Serum or plasma creatinine m easurement (mass/volume)on 06-13-2022 Creatinine [Mass/Vol] 1.45 mg/dL 0.70-1.30 [facility] Work Phone: Comment on above: The validity of the calculated GFR & GFRAA in patients over 70 years has not been determined. Clinical correlation is essential. Serum or plasma urea nitroge n measurement (mass/volume)on 06-13-2022 Urea nitrogen [Mass/Vol] 44 mg/dL 7-18 [facility] Work Phone: Squamous epithelial cells de tection in urine sediment by light microscopyon 06-13-2022 Epithelial cells.squamous LM Ql (Urine sed) 0-5 SEEN /hpf 0-5 [facility] Work Phone: Thin prep Papanicolaou smear with manual screeningon 06-13-2022 Thin prep Papanicolaou smear with manual screening 23 U/L 15-37 [facility] Work Phone: Comment on above: Moderate Hemolysis, Result may be falsely increased. Thin prep Papanicolaou smear with manual screening 9 5-15 [facility] Work Phone: Urine blood detectionon --2021 RBC Ql (U) Negative Negative [facility] Work Phone: RBC Ql (U) 0 SEEN /hpf 0-5 [facility] Work Phone: Urine clarityon 06-13-2022 Clarity (U) Clear Clear [facility] Work Phone: Urine color determinationon 06-13-2022 Color (U) Yellow Yellow [facility] Work Phone: Urine glucose detectionon Glucose Ql (U) 50 mg/dl Normal [facility] Work Phone: Urine leukocyte esterase det ection by dipstickon 06-13-2022 Leukocyte esterase Test strip Ql (U) Negative Negative [facility] Work Phone: Urine pHon 06-13-2022 pH (U) 8.0 [pH] 5.0 - 8.0 [facility] Work Phone: Urine sediment bacteria coun t by microscopy (number/high power field)on 06-13-2022 Bacteria LM.HPF (Urine sed) [#/Area] 1 /[HPF] None Seen [facility] Work Phone: Urine specific gravity measu rementon 06-13-2022 Specific gravity (U) [Rel density] 1.010 1.002-1.030 [facility] Work Phone: Urobilinogen Auto test strip Ql (U)on 06-13-2022 Urobilinogen Ql (U) Normal mg/dl Normal [facility] Work Phone: ANES POSTPROC EVALon 022 ANES POSTPROC EVAL HNO ID: [id number] Author: Fernando Salinas MD Service: Anesthesiology Author Type: Anesthesiologist Type: Anesthesia Postprocedure Evaluation Filed: 06/12/2022 1:06 PM Note Text: POST ANESTHESIA EVALUATION NOTE : 1940 Procedure Summary Date: 06/12/22 Room / Location: [place] [address] / [place] Anesthesia Start: 1140 Anesthesia Stop: 1300 [...] June 12, 2022 TIME: 1:06 PM CSN: [id number] [facility] ANES PRE-OPon 06-12-2022 ANES PRE-OP HNO ID: [id number] Author: Fernando Salinas MD Service: Anesthesiology Author [...] June 12, 2022 TIME: 10:26 AM CSN: [id number] [facility] HISTORY PHYSICALon HISTORY PHYSICAL HNO ID: [id number] Author: Florencio Tesfaye MD Service: General Surgery [...] Macular degeneration NSTEMI (non-ST elevated myocardial infarction) ([facility]) 10/28/2019 Osteoarthritis of left hip Paresthesia [...] 07/28/07 DIR RPR ANEURYSM ABDOMINAL AORTA 04/20/2011 [facility] EYLEA (AFLIBERCEPT) 2MG INTRAVITREAL INJECTION OD (RIGHT [...] Tobacco Use Smokin (more content not included)... [facility] OPERATIVE NOon 06-12-2022 OPERATIVE NO HNO ID: [id number] Author: Florencio Tesfaye MD Service: General Surgery Author Type: Physician Type: Operative Report Filed: 06/12/2022 12:59 PM Note Text: OPERATIVE/PROCEDURE REPORT LOG ID: [id number] SURGERY/PROCEDURE DATE: 06/12/2022 INCISION/PROCEDURE START TIME: 12:00 PM INCISION CLOSE/PROCEDURE END TIME: 12:49 PM SURGEON(S)/PROCEDURALI ST(S) AND LEATHER ROLLER(S): Surgeon(s) and Role: * Florencio Tesfaye MD - Primary Nurse Practitioner: Nuria Banks APRN.ADVANCED PRACTICE NURSE PSYCHOTHERAPIST Physician Construction Rigger: Indy Mosqueda PA-C SURGERY/PROCEDURE(S): Laparoscopic bilateral inguinal hernia repair with mesh ANESTHESIA: General SURGERY/PROCEDURE DETAILS: Patient was brought into the operating room. Placed in the supine position. Under excellent general anesthetic the abdomen was sterilely prepped and draped in the usual fashion. Local was injected supraumbilically. Dissection was carried down to the fascia the fascia was grasped with a [place] varies needle was placed inside the abdomen [...] the fascia the umbilical port with a hyvyag-hl-lagmc stitch of 0 Vicryl. Skin incisions were closed with subcuticular stitches of 4-0 Monocryl. Steri-Strips were applied sterile dressings were applied patient tolerated the procedure well. Nuria Banks CNP was my shipping and receiving assistant. She assisted with retraction, visualization and [...] DATE: June 12, 2022 TIME: 12:[address] [facility] Basic metabolic 2000 panelon 05-31-2022 Anion gap [Moles/Vol] 8 mmol/L Low 9 - 18 mmol/L [facility] Calcium [Mass/Vol] 9.2 mg/dL 8.5 - 10. 2 mg/dL [facility] Chloride [Moles/Vol] 104 mmol/L 97 - 10 5 mmol/L [facility] CO2 [Moles/Vol] 24 mmol/L 22 - 30 mmol/L [facility] Creatinine [Mass/Vol] 1.15 mg/dL 0.73 - 1.22 mg/dL [facility] Estimated Glomerular Filtration Rate 63 mL/min/1.73m >=60 mL/min/1.73 m [facility] Glucose [Mass/Vol] 126 mg/dL High 74 - 99 mg/dL [facility] Potassium [Moles/Vol] 4.1 mmol/L 3.7 - 5.1 mmol/L [facility] Sodium [Moles/Vol] 136 mmol/L 136 - 144 mmol/L [facility] Urea nitrogen [Mass/Vol] 25 mg/dL High 9 - 24 mg/dL [facility] CBC W Auto Differential pane l (Bld)on 05-31-2022 Abs Immature Gran <0.10 k/uL [facility] Basophils (Bld) [#/Vol] 0.03 10*3/uL <0.11 k/uL [facility] Basophils/100 WBC (Bld) 0.4 % C [facility] Differential cell count method Nom (Bld) Auto [facility] Eosinophils (Bld) [#/Vol] 0.32 10*3/uL <0.46 k/uL [facility] Eosinophils/100 WBC (Bld) 4.6 % [facility] Erythrocyte distribution width (RBC) [Ratio] 13.8 % 11.5 - 15.0 % [facility] Hematocrit (Bld) [Volume fraction] 40.4 % 39.0 - 51.0 % [facility] Hemoglobin (Bld) [Mass/Vol] 14.2 g/dL 13.0 - 17.0 g/dL [facility] Immature Gran % 0.3 % [facility] Lymphocytes (Bld) [#/Vol] 1.58 10*3/uL 1.00 - 4.00 k/uL [facility] Lymphocytes/100 WBC (Bld) 22.9 % [facility] MCH (RBC) [Entitic mass] 30.3 pg 26.0 - 34.0 pg [facility] MCHC (RBC) [Mass/Vol] 35.1 g/dL 30.5 - 36.0 g/dL [facility] MCV (RBC) [Entitic vol] 86.1 fL 80.0 - 100.0 fL [facility] Monocytes (Bld) [#/Vol] 0.64 10*3/uL <0.87 k/uL [facility] Monocytes/100 WBC (Bld) 9.3 % [facility] Neutrophils (Bld) [#/Vol] 4.31 10*3/uL 1.45 - 7.50 k/uL [facility] Neutrophils/100 WBC (Bld) 62.5 % [facility] Nucleated RBC (Bld) [#/Vol] <0.01 k/uL [facility] Nucleated RBC/100 WBC (Bld) [Ratio] 0.0 /100 WBC [facility] Platelet mean volume (Bld) [Entitic vol] 9.2 fL 9.0 - 12.7 fL [facility] Platelets (Bld) [#/Vol] 126 10*3/uL Low 150 - 400 k/uL [facility] RBC (Bld) [#/Vol] 4.69 10*6/uL 4.20 - 6.0 0 m/uL [facility] WBC (Bld) [#/Vol] 6.90 10*3/uL 3.70 - 11.00 k/uL [facility] Basophil percentageon 2021 Creatinine [Mass/Vol] 1.3 mg/dL 0.70-1.30 [facility] Work Phone: Laboratory - Chemistry and C hemistry - challengeon 01-01-2022 GFR/1.73 sq M.predicted among non-blacks MDRD (S/P/Bld) [Vol rate/Area] 54.0000 mL/min/{1.73_m2} >60 [facility] Work Phone: VL AORTA/IVC/ILIAC/BYPASS GR AFT COMPLETEOrdered By: Shailesh Stone on 06-20-2021 [facility] ----- Abdominal Aortic Endograft Report Patient DO ShilohB: 1940 Study 06/20/2021 Name: Todd Presley (81yrs) Date: Patient [id number] Age: 81 Account: [id number] ID: Gender: M Loc: BP: Ordering Physician: Shailesh Stone [employer] Associate: SHERWIN MaharajT Interpreting Physician: Prachi López MD ----- Location: [address] ----- Indications: AAA without rupture. ----- [...] supine position. Images were obtained using a [employer] E9 vascular ultrasound machine. The study [...] + + + (more content not included)... [employer] Work Phone: [place], [facility] Incoming Cardiology Results From [email or web address] - 06/20/2021 5:22 PM EDT [facility] ----- Abdominal Aortic Endograft Report Patient Shiloh, : 1940 Study 06/20/2021 Name: Todd Presley (yr) Date: Patient [id number] Age: 81 Account: [id number] ID: Gender: M Loc: BP: Ordering Physician: Shailesh Stone [employer] Associate: Valerie Ulloa RVT Interpreting Physician: Prachi López MD ----- Location: [address] ----- Indications: AAA without rupture. ----- [...] supine position. Images were obtained using a [employer] E9 vascular ultrasound machine. The study [...] ----+ +Left limb+ (more content not included)... [employer] Work Phone: [employer] Phone: VL Aorta Iliac Duplex w/ Te nt [place] 06-20-2021 VL Aorta Iliac Duplex w/ Stent Graft Patient Name: TODD MATAMOROS Located Within [facility]#: [id number] Ultrasound ACCESSION EXAM DATE/TIME PROCEDURE ORDERING PROVIDER [phone] 06/20/2021 10:18 EDT VL Aorta Iliac Duplex w/ [id number] -SHAILESH STONE Stent Graft CPT code 54790 [id number] Reason For Exam (VL Aorta Iliac Duplex w/ Stent Graft) Presence of other vascular implants and grafts Report [facility] ----- Abdominal Aortic Endograft Report Patient DO ShilohB: 1940 Study 06/20/2021 Name: Todd Presley (81yrs) Date: Patient [id number] Age: 81 Account: [id number] ID: Gender: M Loc: BP: Ordering Physician: Shailesh Stone [employer] Associate: Valerie Ulloa RVT Interpreting Physician: Prachi López MD ----- Location: [address] ----- Indications: AAA without rupture. ----- [...] supine position. Images were obtained using a [employer] E9 vascular ultrasound machine. The study [...] +Artery + (more content not included)... Normal [facility] VL Aorta IVC Bypass [place] 06-02-2020 [facility] ----- Abdominal Aortic Endograft Report Ordering Physician: John Clark MD [facility] Associate: Mae Brito [facility] Interpreting Physician: Fernando Walker MD ----- Location: [address] ----- Indications: AAA without rupture, history [...] supine position. Images were obtained using a [employer] E9 vascular ultrasound machine. ----- Arterial [...] ----+ Prepared and electronically signed by Fernando Wlaker MD 06/02/2020 14:26 [facility] [place], [place], [facility] Cardiology Results From [employer] - 06/02/2020 2:26 PM EDT [facility] ----- Abdominal Aortic Endograft Report Ordering Physician: John Clark MD [employer] Associate: SHERWIN JayT Interpreting Physician: Fernando Walker MD ----- Location: [address] ----- Indications: AAA without rupture, history [...] supine position. Images were obtained using a [employer] E9 vascular ultrasound machine. ----- Arterial [...] signed by Fernando Walker MD 06/02/2020 14:26 [place], [place] Clinical Summary: HMSPatient IDon 05-12-2018 OOP Invalid Interpretation Code [facility] Work Phone: Office Visit: Follow-up by Mann peng: 1on 05-12-2018 NEGATED: Highlighted rowProtein mass conc Done Invalid Interpretation Code [facility] Work Phone: Lab Report: Lipid Profileon 08-12-2017 Cholesterol 112 mg/dL Invalid Interpretation Code 200 [facility] Work Phone: HDL Cholesterol 35 mg/dL Low [facility] Work Phone: LDL Cholesterol 45 mg/dL Invalid Interpretation Code 0-130 [facility] Work Phone: Triglyceride 162 mg/dL Invalid Interpretation Code [facility] Work Phone: very low density lipoproteins 32 mg/dL Invalid Interpretation Code 5-40 [facility] Work Phone: Lab Report: Liver Profileon 08-12-2017 Alanine aminotransferase (ALT) 17 U/L Invalid Interpretation Code 12-78 [facility] Work Phone: Albumin 3.6 g/dL Invalid Interpretation Code 3.4-5.0 [employer] Work Phone: [phone] Alkaline phosphatase (ALP) 145 U/L High 45-117 [employer] Work Phone: [phone] Aspartate aminotransferase (AST) 15 U/L Invalid Interpretation Code 15-37 [employer] Work Phone: [phone] Bilirubin (direct) 0.14 mg/dL Invalid Interpretation Code 0.00-0.30 [employer] Work Phone: [phone] Bilirubin (total) 0.50 mg/dL Invalid Interpretation Code 0.20-1.00 [employer] Work Phone: [phone] Globulin 4.4 g/dL High 2.2-4.2 [employer] Work Phone: [phone] Protein 8.0 g/dL Invalid Interpretation Code 6.4-8.2 [employer] Work Phone: [phone] Office Visiton 02-03-2017 Documentation of current medications (procedure) Done Invalid Interpretation Code [employer] Work Phone: [phone] Fall risk assessment No Invalid Interpretation Code [employer] Work Phone: [phone] Protein mass conc Done [employer] Work Phone: [phone] Chart Maintenanceon 02-02-20 17 Left ventricular Ejection fraction 65 % Invalid Interpretation Code [employer] Phone: [phone] Lab Report: Lipid Profileon 01-31-2017 Cholesterol 127 mg/dL Invalid Interpretation Code 200 [employer] Work Phone: [phone] HDL Cholesterol 40 mg/dL Invalid Interpretation Code [employer] Work Phone: [phone] LDL Cholesterol 54 mg/dL Invalid Interpretation Code 0-130 [employer] Work Phone: [phone] Triglyceride 166 mg/dL Invalid Interpretation Code [employer] Work Phone: [phone] very low density lipoproteins 33 mg/dL Invalid Interpretation Code 5-40 [employer] Work Phone: [phone] Lab Report: Liver Profileon 01-31-2017 Alanine aminotransferase (ALT) 26 U/L Invalid Interpretation Code 12-78 [employer] Work Phone: [phone] Albumin 3.8 g/dL Invalid Interpretation Code 3.4-5.0 [facility] Work Phone: [phone] Alkaline phosphatase (ALP) 132 U/L High 45-117 [facility] Work Phone: [phone] ALP enzyme act/vol (Bld) 132 U/L High 45-117 [facility] Work Phone: [phone] Aspartate aminotransferase (AST) 16 U/L Invalid Interpretation Code 15-37 [facility] Work Phone: [phone] Bilirubin (direct) 0.19 mg/dL Invalid Interpretation Code 0.00-0.30 [facility] Work Phone: [phone] Bilirubin (total) 0.70 mg/dL Invalid Interpretation Code 0.20-1.00 [facility] Work Phone: [phone] Globulin 3.5 g/dL Invalid Interpretation Code 2.3-3.5 [facility] Work Phone: [phone] Globulin mass conc (S) 3.5 g/dL 2.3-3.5 [facility] Work Phone: [phone] Protein 7.3 g/dL Invalid Interpretation Code 6.4-8.2 [facility] Work Phone: [phone] Office Visiton 07-30-2016 Documentation of current medications (procedure) Done Invalid Interpretation Code [facility] Work Phone: [phone] Protein mass conc Done [facility] Work Phone: [phone] Tobacco smoking status NYIS Tobacco smoking status NYIS Invalid Interpretation Code [facility] Work Phone: [phone] Tobacco smoking status [facility] Former smoker [facility] Work Phone: [phone] Tobacco use [facility] Former smoker Invalid Interpretation Code [facility] Work Phone: [phone] Lab Report: Lipid Profileon 07-01-2016 Cholesterol in HDL mass conc 31 mg/dL Low [facility] Work Phone: [phone] Cholesterol in LDL mass conc 29 mg/dL 0-130 [facility] Work Phone: [phone] Cholesterol mass conc 106 mg/dL [address] [facility] Work Phone: [phone] Lipoprotein.pre-beta mass conc 46 mg/dL High 5-40 [facility] Work Phone: [phone] Triglyceride mass conc 232 mg/dL High [facility] Work Phone: [phone] Lab Report: Liver Profileon 07-01-2016 Albumin mass conc 4.0 g/dL 3.4-5.0 [facility] Work Phone: [phone] ALP enzyme act/vol (Bld) 137 U/L High 50-136 [facility] Work Phone: [phone] ALT enzyme act/vol 25 U/L 12-78 [facility] Work Phone: [phone] AST enzyme act/vol 23 U/L 15-37 [facility] Work Phone: [phone] Bilirubin mass conc 0.70 mg/dL 0.20-1.00 [facility] Work Phone: [phone] Bilirubin.direct mass conc 0.15 mg/dL 0.00-0.30 [facility] Work Phone: [phone] Globulin mass conc (S) 3.3 g/dL 2.3-3.5 [facility] Work Phone: [phone] Protein mass conc 7.3 g/dL 6.4-8.2 [facility] Work Phone: [phone] Office Visiton 01-02-2016 Dietary management education, guidance, and counseling (procedure) yes Invalid Interpretation Code [facility] Work Phone: [phone] Office Visiton 07-03-2015 cardiac risk group C Invalid Interpretation Code [facility] Work Phone: [phone] General cardiovascular disease 10Y risk [#] [place].D'Agostino N/A Invalid Interpretation Code [facility] Work Phone: [phone] Protein mass conc yes [facility] Work Phone: [phone] Smoking cessation education (procedure) yes Invalid Interpretation Code [facility] Work Phone: [phone] Lab Report: LIVERon 06-14-20 14 ALK 139 U/L High 50-136 [facility] Work Phone: [phone] GE use only - for [employer] import when terms are not otherwise specified 139 U/L High 50-136 [facility] Work Phone: [phone] Replaced Document: Harjit Orr 05-24-2013 EKG QRS axis 28 deg [facility] [employer] Work Phone: [phone] electrocardiogram interpretation Sinus Bradycardia WITHIN NORMAL LIMITS Invalid Interpretation Code [facility] Work Phone: [phone] Interpretation Sinus Bradycardia WITHIN NORMAL LIMITS [facility] Work Phone: [phone] P [place] 55 deg [facility] Work Phone: [phone] P wave axis, electrocardiogram 55 deg Invalid Interpretation Code [facility] Work Phone: [phone] VA Interval 138 ms [facility] Work Phone: [phone] VA interval, electrocardiogram 138 ms Invalid Interpretation Code [facility] Work Phone: [phone] Pulse (Heart Rate) 442 ms Invalid Interpretation Code [facility] Work Phone: [phone] Pulse (Heart Rate) 57 /min Invalid Interpretation Code [facility] Work Phone: [phone] QRS axis, electrocardiogram 28 deg Invalid Interpretation Code [facility] Work Phone: [phone] QRS Duration 98 ms JRD Communication t [facility] Work Phone: [phone] QRS duration, electrocardiogram 98 ms Invalid Interpretation Code [facility] Work Phone: [phone] QT Interval new path ms [facility] Work Phone: [phone] QT interval, electrocardiogram new path ms Invalid Interpretation Code [facility] Work Phone: [phone] T [place] 79 deg [facility] Work Phone: [phone] T wave axis, electrocardiogram 79 deg Invalid Interpretation Code [facility] Work Phone: [phone] Hemoglobin.gastrointestinal Ql ([place]) Gastric Occult Blood Positive [facility] Work Phone: Vital Signs Date Time Vital Sign Value Performing Clinician Facility 03-22-2025 14:16-0400 Body height 167.[address] Robel Onofre DO Work Phone: [facility] 03-22-2025 14:16-0400 Body mass index (BMI) [Ratio] 29.9 kg/m2 Dr. Robel Onofre DO Work Phone: [phone] [place] [address] 03-22-2025 14:16-0400 Body weight 84.[address] Robel Onofre DO Work Phone: [phone] [place] [address] 03-22-2025 14:16-0400 Diastolic blood pressure 73 mm[Hg] Dr. Robel Onofre DO Work Phone: [phone])490-584011 [place] [address] 03-22-2025 14:16-0400 Heart rate 57 /min Dr. Robel Onofre DO Work Phone: [phone])116-315511 [place] [address] 03-22-2025 14:16-0400 Respiratory rate 16 /min Dr. Robel Onofre DO Work Phone: 2(386)240-884526 [place] [address] 03-22-2025 14:16-0400 Systolic blood pressure 149 mm[Hg] Dr. Robel Onofre DO Work Phone: [phone])459-328711 [place] [address] 12-27-2024 10:58-0400 Body mass index (BMI) [Ratio] 28.23 kg/m2 Robel Onofre DO Work Phone: [facility] 12-27-2024 10:58-0400 Body temperature 98.6 [degF] Robel Onofre DO Work Phone: [facility] 12-27-2024 10:58-0400 Body weight 82.56 kg Robel Hernandezon DO Work Phone: [facility] 12-27-2024 10:58-0400 Diastolic blood pressure 70 mm[Hg] Robel Hernandezon DO Work Phone: [facility] 12-27-2024 10:58-0400 Heart rate 60 /min Robel Hernandezon DO Work Phone: [facility] 12-27-2024 10:58-0400 Respiratory rate 20 /min Robel Onofre DO Work Phone: [facility] 12-27-2024 10:58-0400 Systolic blood pressure 110 mm[Hg] Robel Onofre DO Work Phone: [facility] 12-14-2024 14:57-0400 Body temperature 97.4 [degF] Dr. Robel Onofre DO Work Phone: [facility] 12-14-2024 14:57-0400 Diastolic blood pressure 92 mm[Hg] Dr. Robel Onofre DO Work Phone: [facility] 12-14-2024 14:57-0400 Heart rate 52 /min Dr. Robel Onofre DO Work Phone: [facility] 12-14-2024 14:57-0400 Respiratory rate 18 /min Dr. Robel Onofre DO Work Phone: [facility] 12-14-2024 14:57-0400 SaO2% (BldA) [Mass fraction] 97 % Dr. Robel Onofre DO Work Phone: [facility] 12-14-2024 14:57-0400 Systolic blood pressure 174 mm[Hg] Dr. Robel Onofre DO Work Phone: [phone])[phone] [place] [address] 12-14-2024 12:40-0400 Body height 167.[address] Robel Onofre DO Work Phone: [facility] 12-14-2024 11:45-0400 Body mass index (BMI) [Ratio] 28.76 kg/m2 Asha Hernandez APRN.ADVANCED PRACTICE NURSE PSYCHOTHERAPIST Work Phone: [facility] 12-14-2024 11:45-0400 Body weight 84.1 kg Asha Hernandez SIZING END BANDER.ADVANCED PRACTICE NURSE PSYCHOTHERAPIST Work Phone: [facility] 12-14-2024 11:45-0400 Diastolic blood pressure 84 mm[Hg] Asha Hernandez SIZING END BANDER.ADVANCED PRACTICE NURSE PSYCHOTHERAPIST Work Phone: [facility] 12-14-2024 11:45-0400 Heart rate 54 /min Asha Hernandez APRN.ADVANCED PRACTICE NURSE PSYCHOTHERAPIST Work Phone: [facility] 12-14-2024 11:45-0400 Respiratory rate 12 /min Asha Hernandez SIZING END BANDER.ADVANCED PRACTICE NURSE PSYCHOTHERAPIST Work Phone: [facility] 12-14-2024 11:45-0400 SaO2% (BldA) [Mass fraction] 98 % Asha AlvaradoAnamaria SIZING END BANDER.ADVANCED PRACTICE NURSE PSYCHOTHERAPIST Work Phone: [facility] 12-14-2024 11:45-0400 Systolic blood pressure 152 mm[Hg] Asha Hernandez SIZING END BANDER.ADVANCED PRACTICE NURSE PSYCHOTHERAPIST Work Phone: [facility] 06-30-2024 10:29-0500 Body mass index (BMI) [Ratio] 28.85 kg/m2 Robel Onofre DO Work Phone: [facility] 06-30-2024 10:29-0500 Body temperature 97.81 [degF] Robel Onofre DO Work Phone: [facility] 06-30-2024 10:29-0500 Body weight 84.37 kg Robel Onofre DO Work Phone: [facility] 06-30-2024 10:29-0500 Diastolic blood pressure 80 mm[Hg] Robel Noofre DO Work Phone: [facility] 06-30-2024 10:29-0500 Heart rate 64 /min Robel Onofre DO Work Phone: [facility] 06-30-2024 10:29-0500 Respiratory rate 20 /min Robel Onofre DO Work Phone: [facility] 06-30-2024 10:29-0500 Systolic blood pressure 140 mm[Hg] Robel Onofre DO Work Phone: [facility] 03-10-2024 12:21-0400 Body mass index (BMI) [Ratio] 27.74 kg/m2 Bessie Ambrocio SIZING END BANDER.ADVANCED PRACTICE NURSE PSYCHOTHERAPIST Work Phone: [facility] 03-10-2024 12:21-0400 Body weight 81.1 kg Bessie Ambrocio SIZING END BANDER.ADVANCED PRACTICE NURSE PSYCHOTHERAPIST Work Phone: [facility] 03-10-2024 12:21-0400 Diastolic blood pressure 78 mm[Hg] Bessie Cristóbal SIZING END BANDER.ADVANCED PRACTICE NURSE PSYCHOTHERAPIST Work Phone: [facility] 03-10-2024 12:21-0400 Heart rate 55 /min Bessie Cristóbal SIZING END BANDER.ADVANCED PRACTICE NURSE PSYCHOTHERAPIST Work Phone: [facility] 03-10-2024 12:21-0400 Respiratory rate 18 /min Bessie Cristóbal SIZING END BANDER.ADVANCED PRACTICE NURSE PSYCHOTHERAPIST Work Phone: [facility] 03-10-2024 12:21-0400 SaO2% (BldA) [Mass fraction] 96 % Bessie Cristóbal SIZING END BANDER.ADVANCED PRACTICE NURSE PSYCHOTHERAPIST Work Phone: [facility] 03-10-2024 12:21-0400 Systolic blood pressure 136 mm[Hg] Bessie Cristóbal SIZING END BANDER.ADVANCED PRACTICE NURSE PSYCHOTHERAPIST Work Phone: [facility] 02-04-2024 12:48-0400 Body mass index (BMI) [Ratio] 27.67 kg/m2 Bessie Cristóbal SIZING END BANDER.ADVANCED PRACTICE NURSE PSYCHOTHERAPIST Work Phone: [facility] 02-04-2024 12:48-0400 Body weight 80.92 kg Bessie Cristóbal SIZING END BANDER.ADVANCED PRACTICE NURSE PSYCHOTHERAPIST Work Phone: [facility] 02-04-2024 12:48-0400 Diastolic blood pressure 80 mm[Hg] Bessie Cristóbal SIZING END BANDER.ADVANCED PRACTICE NURSE PSYCHOTHERAPIST Work Phone: [facility] 02-04-2024 12:48-0400 Heart rate 52 /min Bessie Cristóbal SIZING END BANDER.ADVANCED PRACTICE NURSE PSYCHOTHERAPIST Work Phone: [facility] 02-04-2024 12:48-0400 Respiratory rate 20 /min Bessie Cristóbal SIZING END BANDER.ADVANCED PRACTICE NURSE PSYCHOTHERAPIST Work Phone: [facility] 02-04-2024 12:48-0400 SaO2% (BldA) [Mass fraction] 96 % Bessie Cristóbal SIZING END BANDER.ADVANCED PRACTICE NURSE PSYCHOTHERAPIST Work Phone: [facility] 02-04-2024 12:48-0400 Systolic blood pressure 122 mm[Hg] Bessie Ambrocio APRNBeataADVANCED PRACTICE NURSE PSYCHOTHERAPIST Work Phone: [facility] 12-22-2023 12:12-0400 Body mass index (BMI) [Ratio] 27.92 kg/m2 Robel Onofre DO Work Phone: [facility] 12-22-2023 12:12-0400 Body temperature 96.69 [degF] Robel Onofre DO Work Phone: [facility] 12-22-2023 12:12-0400 Body weight 81.65 kg Robel Onofre DO Work Phone: [facility] 12-22-2023 12:12-0400 Diastolic blood pressure 70 mm[Hg] Robel Onofre DO Work Phone: [facility] 12-22-2023 12:12-0400 Heart rate 64 /min Robel Onofre DO Work Phone: [facility] 12-22-2023 12:12-0400 Respiratory rate 20 /min Robel Onofre DO Work Phone: [facility] 12-22-2023 12:12-0400 Systolic blood pressure 120 mm[Hg] Robel Onofre DO Work Phone: [facility] 06-13-2023 13:19-0400 Body height 171 cm Robel Onofre DO Work Phone: [facility] 06-13-2023 13:19-0400 Body temperature 96.69 [degF] Robel Onofre DO Work Phone: [facility] 06-13-2023 13:190400 Body weight 83.92 kg Robel Onofre DO Work Phone: [facility] 06-13-2023 13:19-0400 Diastolic blood pressure 70 mm[Hg] Robel Onofre DO Work Phone: [facility] 06-13-2023 13:19-0400 Heart rate 56 /min Robel Onofre DO Work Phone: [facility] 06-13-2023 13:19-0400 Respiratory rate 24 /min Robel Onofre DO Work Phone: [facility] 06-13-2023 13:19-0400 Systolic blood pressure 136 mm[Hg] Robel Onofre DO Work Phone: [facility] 12-06-2022 09:36-0400 Body temperature 97.7 [degF] Robel Onofre DO Work Phone: [facility] 12-06-2022 09:36-0400 Body weight 82.56 kg Robel Onofre DO Work Phone: [facility] 12-06-2022 09:36-0400 Diastolic blood pressure 60 mm[Hg] Robel Onofre DO Work Phone: [facility] 12-06-2022 09:36-0400 Heart rate 60 /min Robel Onofre DO Work Phone: [facility] 12-06-2022 09:36-0400 Respiratory rate 20 /min Robel Onofre DO Work Phone: [facility] 12-06-2022 09:36-0400 Systolic blood pressure 120 mm[Hg] Robel Onofre DO Work Phone: [facility] 07-03-2022 07:49-0500 Body weight 81.56 kg Bessie Cristóbal SIZING END BANDER.ADVANCED PRACTICE NURSE PSYCHOTHERAPIST Work Phone: [facility] 07-03-2022 07:49-0500 Diastolic blood pressure 80 mm[Hg] Bessie Cristóbal SIZING END BANDER.ADVANCED PRACTICE NURSE PSYCHOTHERAPIST Work Phone: [facility] 07-03-2022 07:49-0500 Heart rate 55 /min Bessie Cristóbal SIZING END BANDER.ADVANCED PRACTICE NURSE PSYCHOTHERAPIST Work Phone: [facility] 07-03-2022 07:49-0500 SaO2% (BldA) [Mass fraction] 98 % Bessie Cristóbal SIZING END BANDER.ADVANCED PRACTICE NURSE PSYCHOTHERAPIST Work Phone: [facility] 07-03-2022 07:49-0500 Systolic blood pressure 128 mm[Hg] Bessie Cristóbal SIZING END BANDER.ADVANCED PRACTICE NURSE PSYCHOTHERAPIST Work Phone: [facility] 06-15-2022 12:48-0400 Body temperature 98.5 [degF] Dr. Robel Onofre Work Phone: [facility] Work Phone: 06-15-2022 12:48-0400 Diastolic blood pressure 48 mm[Hg] Dr. Robel Onofre Work Phone: [facility] Work Phone: 06-15-2022 12:48-0400 Heart rate 63 /min Dr. Robel Onofre Work Phone: [facility] Work Phone: 06-15-2022 12:48-0400 Respiratory rate 18 /min Dr. Robel Onofre Work Phone: [facility] Work Phone: 06-15-2022 12:48-0400 SaO2% (BldA) [Mass fraction] 94 % Dr. Robel Onofre Work Phone: [facility] Work Phone: 06-15-2022 12:48-0400 Systolic blood pressure 111 mm[Hg] Dr. Robel Onofre Work Phone: [facility] Work Phone: 06-15-2022 03:54-0400 Body weight 82.[address] Robel Onofre Work Phone: [facility] Work Phone: 06-14-2022 15:08-0400 Body height [address] Robel Onofre Work Phone: [facility] Work Phone: 06-14-2022 15:08-0400 Body mass index (BMI) [Ratio] 27.2 kg/m2 Dr. Robel Onofre Work Phone: [facility] Work Phone: 06-13-2022 19:28-0400 Body temperature 99.1 [degF] Dr. Robel Onofre Work Phone: [facility] Work Phone: 06-13-2022 19:28-0400 Diastolic blood pressure 70 mm[Hg] Dr. Robel Onofre Work Phone: [facility] Work Phone: 06-13-2022 19:28-0400 Heart rate 80 /min Dr. Robel Onofre Work Phone: [facility] Work Phone: 06-13-2022 19:28-0400 Respiratory rate 20 /min Dr. Robel Onofre Work Phone: [facility] Work Phone: 06-13-2022 19:28-0400 SaO2% (BldA) [Mass fraction] 95 % Dr. Robel Onofre Work Phone: [facility] Work Phone: 06-13-2022 19:28-0400 Systolic blood pressure 152 mm[Hg] Dr. Robel Onofre Work Phone: [facility] Work Phone: 06-13-2022 16:28-0400 Body height 170.[address] Robel Onofre Work Phone: [facility] Work Phone: 06-13-2022 16:28-0400 Body mass index (BMI) [Ratio] 28.3 kg/m2 Dr. Robel Onofre Work Phone: [facility] Work Phone: 06-13-2022 16:28-0400 Body weight 82.[address] Robel Onofre Work Phone: [facility] Work Phone: 06-12-2022 13:30-0400 Diastolic blood pressure 67 mm[Hg] Florencio Tesfaye MD Work Phone: [facility] 10-19-2022 13:30-0400 Heart rate 49 /min Florencio Tesfaye MD Work Phone: [facility] 06-12-2022 13:30-0400 Respiratory rate 13 /min Florencio Tesfaye MD Work Phone: [facility] 06-12-2022 13:30-0400 SaO2% (BldA) [Mass fraction] 99 % Florencio Tesfaye MD Work Phone: [facility] 06-12-2022 13:30-0400 Systolic blood pressure 152 mm[Hg] Florencio Tesfaye MD Work Phone: [facility] 06-12-2022 13:00-0400 Body temperature 97.2 [degF] Florencio Tesfaye MD Work Phone: [facility] 06-03-2022 10:47-0400 Body weight 81.65 kg Robel Onofre DO Work Phone: [facility] 06-03-2022 10:47-0400 Diastolic blood pressure 66 mm[Hg] Robel Onofre DO Work Phone: [facility] 06-03-2022 10:47-0400 Heart rate 60 /min Robel Onofre DO Work Phone: [facility] 06-03-2022 10:47-0400 Respiratory rate 16 /min Robel Onofre DO Work Phone: [facility] 06-03-2022 10:47-0400 Systolic blood pressure 120 mm[Hg] Robel Onofre DO Work Phone: [facility] 05-31-2022 08:47-0400 Body height 170.2 cm Pacc 1 Work Phone: [facility] 05-31-2022 08:47-0400 Body temperature 97.7 [degF] Pacc 1 Work Phone: [facility] 05-31-2022 08:47-0400 Body weight 82.37 kg Pacc 1 Work Phone: [facility] 05-31-2022 08:47-0400 Diastolic blood pressure 58 mm[Hg] Pacc 1 Work Phone: [facility] 05-31-2022 08:47-0400 Heart rate 51 /min Pacc 1 Work Phone: [facility] 05-31-2022 08:47-0400 Respiratory rate 16 /min Pacc 1 Work Phone: [facility] 05-31-2022 08:47-0400 SaO2% (BldA) [Mass fraction] 96 % Pacc 1 Work Phone: [facility] 05-31-2022 08:47-0400 Systolic blood pressure 100 mm[Hg] Pacc 1 Work Phone: [facility] 05-21-2022 15:11-0400 Body temperature 97.59 [degF] Florencio Tesfaye MD Work Phone: [facility] 05-21-2022 15:11-0400 Body weight 82.01 kg Florencio Tesfaye MD Work Phone: [facility] 05-21-2022 15:11-0400 Diastolic blood pressure 63 mm[Hg] Florencio Tesfaye MD Work Phone: [facility] 05-21-2022 15:11-0400 Heart rate 59 /min Florencio Tesfaye MD Work Phone: [facility] 05-21-2022 15:11-0400 SaO2% (BldA) [Mass fraction] 96 % Florencoi Tesfaye MD Work Phone: [facility] 05-21-2022 15:11-0400 Systolic blood pressure 133 mm[Hg] Florencio Tesfaye MD Work Phone: [facility] 01-11-2022 08:03-0400 Body height 170.2 cm Florencio Tesfaye MD Work Phone: [facility] 01-11-2022 08:03-0400 Body temperature 98.1 [degF] Florencio Tesfaye MD Work Phone: [facility] 01-11-2022 08:03-0400 Body weight 83.28 kg Florencio Tesfaye MD Work Phone: [facility] 01-11-2022 08:03-0400 Diastolic blood pressure 58 mm[Hg] Florencio Tesfaye MD Work Phone: [facility] 01-11-2022 08:03-0400 Heart rate 85 /min Florencio Tesfaye MD Work Phone: [facility] 01-11-2022 08:03-0400 SaO2% (BldA) [Mass fraction] 99 % Florencio Tesfaye MD Work Phone: [facility] 01-11-2022 08:03-0400 Systolic blood pressure 118 mm[Hg] Florencio Tesfaye MD Work Phone: [facility] 12-26-2021 14:59-0400 Body weight 85.73 kg Bessie Cristóbal SIZING END BANDER.ADVANCED PRACTICE NURSE PSYCHOTHERAPIST Work Phone: [facility] 12-26-2021 14:59-0400 Diastolic blood pressure 76 mm[Hg] Bessie Cristóbal SIZING END BANDER.ADVANCED PRACTICE NURSE PSYCHOTHERAPIST Work Phone: [facility] 12-26-2021 14:59-0400 Heart rate 56 /min Bessie Cristóbal SIZING END BANDER.ADVANCED PRACTICE NURSE PSYCHOTHERAPIST Work Phone: [facility] 12-26-2021 14:59-0400 SaO2% (BldA) [Mass fraction] 97 % Bessie Cristóbal SIZING END BANDER.ADVANCED PRACTICE NURSE PSYCHOTHERAPIST Work Phone: [facility] 12-26-2021 14:59-0400 Systolic blood pressure 120 mm[Hg] Bessie Cristóbal SIZING END BANDER.ADVANCED PRACTICE NURSE PSYCHOTHERAPIST Work Phone: [facility] 12-12-2021 10:04-0400 Body temperature 96.8 [degF] Robel Onofre DO Work Phone: [facility] 12-12-2021 10:04-0400 Body weight 83.92 kg Robel Onofre DO Work Phone: [facility] 12-12-2021 10:04-0400 Diastolic blood pressure 70 mm[Hg] Robel Onofre DO Work Phone: [facility] 12-12-2021 10:04-0400 Heart rate 56 /min Robel Onofre DO Work Phone: [facility] 12-12-2021 10:04-0400 Respiratory rate 16 /min Robel Onofre DO Work Phone: [facility] 12-12-2021 10:04-0400 Systolic blood pressure 100 mm[Hg] Robel Onofre DO Work Phone: [facility] 10-15-2021 08:32-0500 Body height 170.[address] Robel Onofre Work Phone: [facility] Work Phone: 10-15-2021 08:32-0500 Body mass index (BMI) [Ratio] 29.1 kg/m2 Dr. Robel Onofre Work Phone: [facility] Work Phone: 10-15-2021 08:32-0500 Body weight 84.[address] Robel Onofre Work Phone: [facility] Work Phone: 10-15-2021 08:32-0500 Diastolic blood pressure 70 mm[Hg] Dr. Robel Onofre Work Phone: [facility] Work Phone: 10-15-2021 08:32-0500 Heart rate 54 /min Dr. Robel Onofre Work Phone: [facility] Work Phone: 10-15-2021 08:32-0500 Respiratory rate 20 /min Dr. Robel Onofre Work Phone: [facility] Work Phone: 10-15-2021 08:32-0500 SaO2% (BldA) [Mass fraction] 96 % Dr. Robel Onofre Work Phone: [facility] Work Phone: 10-15-2021 08:32-0500 Systolic blood pressure 122 mm[Hg] Dr. Robel Onofre Work Phone: [facility] Work Phone: 02-03-2017 08:40-0400 BMI (Body Mass Index) 28.03 kg/m2 [facility] Work Phone: 02-03-2017 08:40-0400 BP Diastolic 68 mm[Hg] [facility] Work Phone: 02-03-2017 08:40-0400 BP Systolic 118 mm[Hg] [facility] Work Phone: 02-03-2017 08:40-0400 Height 170.18 cm [facility] Work Phone: 02-03-2017 08:40-0400 Pulse (Heart Rate) 58 /min [facility] Work Phone: 02-03-2017 08:40-0400 Respiratory Rate 18 /min [facility] Work Phone: 02-03-2017 08:40-0400 Weight 81.19 kg [facility] Work [...] BP Diastolic 78 mm[Hg] Dede Araiza RN [facility] Work Phone: 01-02-2016 10:45-0400 BP Systolic 150 mm[Hg] [facility] Work Phone: 05-24-2013 10:32-0400 Heart rate 57 /min [facility] Work Phone: 05-24-2013 10:32-0400 Heart rate 442 ms [facility] Work Phone: NEGATED: Highlighted [id number] 11:20-0400 BMI (Body Mass Index) 27.35 kg/m2 [facility] Work Phone: NEGATED: Highlighted [id number] 11:20-0400 BP Diastolic 77 mm[Hg] [facility] Work Phone: NEGATED: Highlighted [id number] 11:20-0400 BP Systolic 127 mm[Hg] [facility] Work Phone: NEGATED: Highlighted [id number] 11:20-0400 Height 170.18 cm [facility] Work Phone: NEGATED: Highlighted [id number] 11:20-0400 Height 170 cm [facility] Work Phone: NEGATED: Highlighted [id number] 11:20-0400 Pulse (Heart Rate) 57 /min [facility] Work Phone: NEGATED: Highlighted [id number] 11:20-0400 Weight 78.93 kg [facility] Work Phone: NEGATED: Poonam [id number] 11:0 Weight 79 kg [facility] Work Phone: Encounters Encounter Date Encounter Type Care Provider Facility Start: 07-01-2025 ambulatory Robel Onofre Facilit y:[facility] Start: 06-27-2025 End: 06-27-2025 ambulatory ROBEL ONOFRE Facility:[facility] Start: 06-24-2025 End: 06-24-2025 ambulatory ROBEL ONOFRE Facility:[facility] Start: 06-24-2025 End: 06-24-2025 ambulatory ROBEL ONOFRE Facility:[facility] Start: 03-22-2025 End: 03-22-[address] Jamal Dawson MD -[facility] Work Phone: Start: 03-22-2025 End: 03-22-[address] Robel Onofre DO Work Phone: -[facility] Start: 03-17-2025 End: 03-17-2025 Refill Robel Onofre DO Work Phone: [facility] [place] Comment on above: Refill Request Start: 02-10-2025 End: 02-11-2025 Refill Cat Foote APRN.ADVANCED PRACTICE NURSE PSYCHOTHERAPIST Work Phone: [facility] [place] Comment on above: Refill Request Start: 01-18-2025 End: 01-18-2025 ambulatory Citlaly Payton MA [facility] Start: 01-18-2025 End: 01-18-2025 Patient encounter procedure Citlaly Payton MA [facility] Comment on above: Population Health Na vigation Outreach ([place]/Workbench/ACO ) Start: 12-27-2024 End: 12-27-2024 Patient encounter procedure Robel Onofre DO Work Phone: [facility] [place] Comment on above: Gastroesophageal ref 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 hemorrhage (Primary Dx); Vitamin D deficiency; Other depression; Vitamin B12 deficiency; Thrombocytopenia; Familial hypercholesterolemia; Macular degeneration of both eyes, unspecified type; BPH associated with nocturia; Actinic keratosis; BPPV (benign paroxysmal positional vertigo), unspecified laterality Start: 12-27-2024 End: 12-27-2024 ambulatory ROBEL ONOFRE Facility:[facility] Start: 12-20-2024 End: 12-21-2024 Telephone encounter Robel Onofre DO Work Phone: [facility] [place] Comment on above: Patient Question Start: 12-14-2024 End: 12-14-2024 Telephone encounter Robel Onofre DO Work Phone: [facility] [place] Comment on above: Vertigo Start: 12-14-2024 End: 12-14-2024 Emergency department patient visit Dr. Robel Onofre DO Work Phone: -Emergency Department Work Phone: Start: 12-14-2024 End: 12-14-2024 Office outpatient visit 25 minutes Asha Hernandez APRN.ADVANCED PRACTICE NURSE PSYCHOTHERAPIST Work Phone: [facility] [place] Comment on above: Vertigo (Primary Dx) ; Nausea and vomiting, unspecified vomiting type; Gait disturbance Start: 12-14-2024 End: 12-14-2024 ambulatory ASHA HERNANDEZ Facility:[facility] Start: 12-09-2024 End: 12-09-2024 Refill Robel Hernandezon DO Work Phone: [address] [place] [address] Comment on above: Refill Request Start: 11-22-2024 End: 11-24-2024 Refill Robel Tobinrison DO Work Phone: [facility] [place] Comment on above: Refill Request Start: 11-08-2024 End: 11-08-2024 Refill Robel Bowman Onofer DO Work Phone: [address] [place] [address] Comment on above: Refill Request Start: 10-08-2024 End: 10-12-2024 Refill Robel Tobinrison DO Work Phone: [facility] [place] Comment on above: Refill Request Letter (Blindness co nfirmation for taxes) Start: 08-30-2024 End: 11-30-2024 Telephone encounter Robel Onofre DO Work Phone: [facility] [place] Start: 08-11-2024 End: 08-11-2024 Refill Robel Onofre DO Work Phone: [facility] [place] Comment on above: Refill Request Start: 07-01-2024 End: 07-01-2024 Telephone encounter Robel Onofre DO Work Phone: [facility] [place] Start: 06-30-2024 End: 06-30-2024 ambulatory ROBEL ONOFRE Facility:[facility] Start: 06-30-2024 End: 06-30-2024 Patient encounter procedure Robel Onofre DO Work Phone: [facility] Comment on above: Hypertension, essent ial (Primary Dx); Need for influenza vaccination; Vitamin D deficiency; Vitamin B12 deficiency; Thrombocytopenia (HCC); Macular degeneration of both eyes, unspecified type; Familial hypercholesterolemia; BPH associated with nocturia; Borderline abnormal thyroid function test; Hyperglycemia; Other depression Start: 06-30-2024 End: 06-30-2024 ambulatory ROBEL ONOFRE Facility:[facility] Start: 05-04-2024 End: 05-04-2024 Refill Robel Onofre DO Work Phone: [facility] Comment on above: Refill Request Start: 03-10-2024 End: 03-10-2024 Office outpatient visit 15 minutes Bessie Ambrocio APRN.ADVANCED PRACTICE NURSE PSYCHOTHERAPIST Work Phone: [facility] [place] Comment on above: Feelings of worthles sness (Primary Dx); Stress; Lack of motivation; Other depression Start: 02-04-2024 End: 02-04-2024 Patient encounter procedure Bessie Ambrocio APRN.CNP Work Phone: [facility] [place] Comment on above: Feelings of worthles sness (Primary Dx); Stress; Lack of motivation; Other depression; Macular degeneration of both eyes, unspecified type; Bilateral hearing loss, unspecified hearing loss type Start: 01-26-2024 Telephone encounter Robel villanueva DO Work Phone: [facility] [place] Comment on above: Depression Start: 01-16-2024 Telephone encounter Robel villanueva DO Work Phone: [facility] [place] Comment on above: Results Start: 01-01-2024 Telephone encounter Robel villanueva DO Work Phone: [facility] [place] Start: 12-22-2023 End: 12-22-2023 Patient encounter procedure Robel Onofre DO Work Phone: [facility] [place] Comment on above: Hypertension, essent ial [...] 11-25-2023 Refill Robel terrazas DO Work Phone: [facility] [place] Comment on above: Refill Request Start: 11-24-2023 Refill Robel terrazas DO Work Phone: [facility] [place] Comment on above: Refill Request; erro r Start: 11-12-2023 Refill Robel terrazas DO Work Phone: [facility] [place] Comment on above: Refill Request Start: 10-14-2023 Refill Robel terrazas DO Work Phone: [facility] [place] Comment on above: Refill Request Start: 07-31-2023 Refill Robel terrazas DO Work Phone: [facility] [place] Comment on above: Refill Request Start: 07-25-2023 Refill Robel terrazas DO Work Phone: [facility] [place] Comment on above: Refill Request Orders Start: [...] 03-31-2023 Refill Robel terrazas DO Work Phone: [facility] Comment on above: Refill Request Start: 02-12-2023 Refill Robel terrazas DO Work Phone: [address] [place] [address] Comment on above: Refill Request Start: 01-30-2023 Telephone encounter Robel Gracie villanueva DO Work Phone: [facility] Comment on above: Handicap Placard Start: 12-23-2022 Telephone encounter Robel Bowman Jess villanueva DO Work Phone: [facility] Comment on above: Results Start: 12-06-2022 End: 12-06-2022 Patient encounter procedure Robel Onofre DO Work Phone: [facility] Comment on above: Vitamin D deficiency (Primary Dx); Vitamin B12 deficiency; Hypertension, essential; Familial hypercholesterolemia; BPH associated with nocturia; Screening for prostate cancer; Iron deficiency anemia, unspecified iron deficiency anemia type Start: 11-18-2022 Refill Bessie kenney APRN.ADVANCED PRACTICE NURSE PSYCHOTHERAPIST Work Phone: [facility] Comment on above: Refill Request Start: 10-17-2022 Refill Robel terrazas DO Work Phone: [facility] Comment on above: Refill Request Start: 10-07-2022 Refill Robel terrazas DO Work Phone: [facility] Comment on above: Refill Request Start: 09-10-2022 Refill Robel terrazas DO Work Phone: [facility] Comment on above: Refill Request Start: 07-24-2022 Refill Robel terrazas DO Work Phone: [facility] Comment on above: Refill Request Start: 07-04-2022 Telephone encounter Bessie Camargo SIZING END BANDER.ADVANCED PRACTICE NURSE PSYCHOTHERAPIST Work Phone: [facility] Comment on above: Results Start: 07-03-2022 End: 07-03-2022 Patient encounter procedure Bessie Ambrocio SIZING END BANDER.ADVANCED PRACTICE NURSE PSYCHOTHERAPIST Work Phone: [facility] Comment on above: Hypertension, essent ial (Primary Dx); Maegan-Feldman tear Start: 06-26-2022 Telephone encounter Robel villanueva DO Work Phone: [facility] Comment on above: Patient Update Start: 06-21-2022 Telephone encounter Robel villanueva DO Work Phone: [facility] Comment on above: Patient Update Start: 06-17-2022 ambulatory Robel terrazas DO Work Phone: [facility] Start: 06-17-2022 Telephone encounter Robel villanueva DO Work Phone: [facility] Comment on above: Orders Start: 06-14-2022 Non-patient / Non-visit Dr. Roxana Onofre Work Phone: [facility] Start: 06-14-2022 Non-patient / Non-visit Dr. Roxana Onofre Work Phone: [facility] Start: 06-13-2022 End: 06-15-2022 Evaluation and management of inpatient Dr. Robel Onofre Work Phone: [facility] Start: 06-13-[address] Abram Onofre Work Phone: [facility] Work Phone: Start: 06-13-2022 Non-patient / Non-visit Dr. Roxana Onofre Work Phone: [facility] Start: 06-13-2022 Telephone encounter Florencio cummings MD Work Phone: General Surgery Comment on above: Patient Update Start: 06-12-2022 ambulatory FLORENCIO TESFAYE Facili ty:[facility] Start: 06-12-2022 End: 06-12-2022 Subsequent hospital visit by physician Florencio Tesfaye MD Work Phone: [facility] Surgery Comment on above: Right inguinal herni a [K40.90] Start: 06-07-2022 Telephone encounter Luiza Rivers APRN.CNP Work Phone: Pre Anesthesia Comment on above: Patient Update Start: 06-03-2022 End: 06-03-2022 Patient encounter procedure Robel Onofre Work Phone: [facility] Comment on above: Hypertension, essent ial [...] gangrene Start: 05-31-2022 End: 05-31-2022 [facility] Work Phone: [facility] [place] Start: 05-31-2022 End: 05-31-2022 ambulatory [facility] 1 Work Phone: Pre Anesthesia Comment on above: Pre-operative examin ation (Primary Dx); Coronary artery disease due to lipid rich plaque; Hypertension, essential; Abdominal aortic aneurysm (AAA), unspecified part, unspecified whether ruptured; Thrombocytopenia (HCC); Familial hypercholesterolemia; Acute renal insufficiency; BPH associated with nocturia; Gastroesophageal ref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 hemorrhage Start: 05-31-2022 End: 05-31-2022 Preprocedural examination done [facility] [place] 1 Work Phone: Pre Anesthesia Start: 05-21-2022 End: 05-21-2022 Patient encounter procedure Florencio Tesfaye MD Work Phone: General Surgery Comment on above: Right inguinal herni a (Primary Dx) Start: 04-08-2022 Refill Robel Grimes son DO Work Phone: [facility] [place] Comment on above: Refill Request Start: 02-18-2022 Refill Robel Grimes son DO Work Phone: [facility] Comment on above: Refill Request Start: 02-01-2022 Telephone encounter Bessie Camargo SIZING END BANDER.ADVANCED PRACTICE NURSE PSYCHOTHERAPIST Work Phone: [facility] Comment on above: Results Start: 01-31-2022 Telephone encounter Robel villanueva DO Work Phone: [facility] Comment on above: Patient Update; Appo intment Start: 01-11-2022 End: 01-11-2022 Patient encounter procedure Florencio Tesfaye MD Work Phone: General Surgery Comment on above: Bilateral inguinal h ernia without obstruction or gangrene, recurrence not specified Start: 01-02-2022 Telephone encounter Robel villanueva DO Work Phone: [facility] Comment on above: Results; Appointment Start: 01-01-2022 End: 01-01-[address] Robel Onofre Work Phone: [facility] Start: 12-27-2021 Telephone encounter Bessie Camargo SIZING END BANDER.ADVANCED PRACTICE NURSE PSYCHOTHERAPIST Work Phone: [facility] Comment on above: Faxed orders Change Of Order ([facility] radiology dept[facility] Start: 12-26-2021 End: 12-26-2021 Patient encounter procedure Bessie Cristóbal SIZING END BANDER.ADVANCED PRACTICE NURSE PSYCHOTHERAPIST Work Phone: [facility] Comment on above: Right inguinal pain (Primary Dx); Inguinal bulge Start: 12-26-2021 Telephone encounter Robel villanueva DO Work Phone: [facility] [place] Comment on above: Right groin pain Start: 12-12-2021 End: 12-12-2021 Patient encounter procedure Robel Onofre DO Work Phone: [facility] [place] Comment on above: Vitamin D deficiency (Primary Dx); BPH associated with nocturia; Fatigue, unspecified type; Familial hypercholesterolemia; Coronary artery disease due to lipid rich plaque; Hypertension, essential; Actinic keratosis Start: 10-15-2021 End: 10-15-[address] Robel Onofre Work Phone: [facility] Start: 06-20-2021 End: 06-20-2021 Subsequent hospital [...] encounter procedure Mandeep Bernstein DO Work Phone: [facility] Work Phone: [...] Start: 12-30-2016 End: 02-01-2017 Lipid panel [AGGREGATE] Flroencio Ramires MD Work Phone: Start: 07-30-2016 End: [...] Author Start: 06-30-2027 Diabetes Screening Diabetes Screening [facility] Start: 01-13-2027 Diabetes Screening Diabetes Screening [facility] Start: 12-21-2026 Diabetes Screening Diabetes Screening [facility] Start: 12-06-2025 DIABETES SCREEN DIABETES SCREEN [facility] Start: 12-06-2025 Diabetes Screening Diabetes Screening [facility] Start: 07-03-2025 DIABETES SCREEN DIABETES SCREEN [facility] Start: 06-30-2025 Hepatitis B surface antibody level LDL Cholesterol [facility] Start: 06-24-2025 End: 06-24-2025 Patient encounter procedure 06/24/2025 10:00 AM EDT Office Visit [facility] [place] [address] [place], [place] [id number] Robel Onofre DO [address] [place], [place] [id number] Medicare Wellness [facility] [place] Comment on above: Medicare Wellness Start: 05-31-2025 DIABETES SCREEN DIABETES SCREEN [facility] Start: 04-25-2025 Influenza vaccination [facility] Start: 01-31-2025 DIABETES SCREEN DIABETES SCREEN [facility] Start: 01-13-2025 Hepatitis B surface antibody level LDL Cholesterol [facility] Start: 12-27-2024 End: 12-27-2024 Patient encounter procedure 12/27/2024 10:40 AM EDT Office Visit [facility] [place] [address] [place], [place] [id number] Robel Onofre DO [address] [facility] [place] [address] follow up [facility] [place] Comment on above: follow up Start: 12-14-2024 [facility] Start: 08-25-2024 Advance Directive Discussion Advance Directive Discussion [facility] Start: 08-25-2024 Medicare Advantage Annual Wellness Visit Medicare Advantage Annual Wellness Visit [facility] Start: 06-30-2024 End: 09-29-2024 25-hydroxyvitamin D3 [Mass/volume] in Serum or Plasma [facility] Comment on above: Expected: 06/30/2024, Expires: Start: 06-30-2024 End: 09-29-2024 CBC W Auto Differential panel - Blood [facility] Comment on above: Expected: 06/30/2024, Expires: Start: 06-30-2024 End: 09-29-2024 Cobalamin (Vitamin B12) [Mass/volume] in Serum or Plasma [facility] Comment on above: Expected: 06/30/2024, Expires: Start: 06-30-2024 End: 09-29-2024 Comprehensive metabolic 2000 panel - Serum or Plasma [facility] Work Phone: Comment on above: Expected: 06/30/2024, Expires: Start: 06-30-2024 End: 09-29-2024 Hemoglobin A1c in Blood [facility] Comment on above: Expected: 06/30/2024, Expires: Start: 06-30-2024 End: 09-29-2024 LIPID PANEL, NONFASTING [facility] Comment on above: Expected: 06/30/2024, Expires: Start: 06-30-2024 End: 09-29-2024 Magnesium [Mass/volume] in Serum or Plasma [facility] Comment on above: Expected: 06/30/2024, Expires: Start: 06-30-2024 End: 09-29-2024 Thyrotropin [Units/volume] in Serum or Plasma [facility] Comment on above: Expected: 06/30/2024, Expires: Start: 06-30-2024 End: 09-29-2024 Urinalysis complete panel - Urine [facility] Comment on above: Expected: 06/30/2024, Expires: Start: 06-30-2024 End: 06-30-2024 Patient encounter procedure 06/30/2024 10:40 AM EST Office Visit [facility] [place] [address] [place] [address] Robel Onofre DO [address] [facility] [place] [address] 6 month follow up [facility] [place] Comment on above: 6 month follow up Start: 05-29-2024 DIABETES SCREEN DIABETES SCREEN [facility] Start: 04-25-2024 Covid-19 Vaccine ( season) Covid-19 Vaccine () [facility] Start: 04-25-2024 Covid-19 Vaccine ( season) Covid-19 Vaccine ( season) [facility] Start: 04-25-2024 Influenza vaccination Influenza Vaccine (#1) [facility] Start: 03-10-2024 End: 03-10-2024 Patient encounter procedure 03/10/2024 12:20 PM EDT Office Visit [facility] [place] [address] [facility] [place] [address] Bessie Ambrocio, SIZING END BANDER.ADVANCED PRACTICE NURSE PSYCHOTHERAPIST [address] [facility] [place] [address] 4-6 weeks follow up [facility] [place] Comment on above: 4-6 weeks follow up Start: 02-04-2024 End: 02-04-2024 Patient encounter procedure 02/04/2024 12:40 PM EDT Office Visit [facility] [place] [address] [place] [address] Bessie Ambrocio, SIZING END BANDER.ADVANCED PRACTICE NURSE PSYCHOTHERAPIST [address] [facility] [place], [place] [phone] depression [facility] [place] Comment on above: depression Start: 01-01-2024 End: 04-01-2024 ALK PHOS ISOENZYM BL ALK PHOS ISOENZYM BL Lab Routine Elevated alkaline phosphatase level Expected: 01/01/2024, Expires: 04/01/2024 [facility] Comment on above: Expected: 01/01/2024, Expires: Start: 01-01-2024 End: 04-01-2024 CBC W Auto Differential panel - Blood COMPLETE BLOOD COUNT AND DIFFERENTIAL Lab Routine Thrombocytopenia (HCC) Expected: 01/01/2024, Expires: 04/01/2024 [facility] Work Phone: Comment on above: Expected: 01/01/2024, Expires: Start: 01-01-2024 End: 04-01-2024 Comprehensive metabolic 2000 panel - Serum or Plasma COMPREHENSIVE METABOLIC PANEL Lab Routine Elevated serum creatinine Expected: 01/01/2024, Expires: 04/01/2024 [facility] Comment on above: Expected: 01/01/2024, Expires: Start: 12-22-2023 End: 03-22-2024 Cobalamin (Vitamin B12) [Mass/volume] in Serum or Plasma [facility] Comment on above: Expected: 12/22/2023, Expires: Start: 12-22-2023 End: 03-22-2024 Comprehensive metabolic 2000 panel - Serum or Plasma [facility] Work Phone: Comment on above: Expected: 12/22/2023, Expires: Start: 12-22-2023 End: 03-22-2024 Iron and Iron binding capacity panel - Serum or Plasma IRON AND TIBC Lab Routine Iron deficiency anemia, unspecified iron deficiency anemia type Expected: 12/22/2023, Expires: 03/22/2024 [facility] Comment on above: Expected: 12/22/2023, Expires: Start: 12-22-2023 End: 03-22-2024 LIPID PANEL, NONFASTING LIPID PANEL, NONFASTING Lab Routine Familial hypercholesterolemia Expected: 12/22/2023, Expires: 03/22/2024 [facility] Comment on above: Expected: 12/22/2023, Expires: Start: 12-22-2023 End: 03-22-2024 Thyrotropin [Units/volume] in Serum or Plasma [facility] Comment on above: Expected: 12/22/2023, Expires: Start: 12-22-2023 End: 03-22-2024 Thyroxine (T4) free [Mass/volume] in Serum or Plasma [facility] Comment on above: Expected: 12/22/2023, Expires: Start: 12-14-2023 End: 03-14-2024 25-hydroxyvitamin D3 [Mass/volume] in Serum or Plasma VITAMIN D 25 HYDROXY Lab Routine Vitamin D deficiency Expected: 12/14/2023, Expires: 03/14/2024 [facility] Work Phone: Comment on above: Expected: 12/14/2023, Expires: Start: 12-14-2023 End: 03-14-2024 CBC panel - Blood by Automated count CBC Lab Routine Familial hypercholesterolemia Iron deficiency anemia, unspecified iron deficiency anemia type Expected: 12/14/2023, Expires: 03/14/2024 [facility] Work Phone: Comment on above: Expected: 12/14/2023, Expires: Start: 12-14-2023 End: 03-14-2024 Cobalamin (Vitamin B12) [Mass/volume] in Serum or Plasma VITAMIN B12 BLOOD Lab Routine Vitamin B12 deficiency Expected: 12/14/2023, Expires: 03/14/2024 [facility] Work Phone: Comment on above: Expected: 12/14/2023, Expires: Start: 12-14-2023 End: 03-14-2024 Comprehensive metabolic 2000 panel - Serum or Plasma COMP METABOLIC PANEL Lab Routine Familial hypercholesterolemia Expected: 12/14/2023, Expires: 03/14/2024 [facility] Work Phone: Comment on above: Expected: 12/14/2023, Expires: Start: 12-14-2023 End: 03-14-2024 Ferritin [Mass/volume] in Serum or Plasma FERRITIN BLD Lab Routine Iron deficiency anemia, unspecified iron deficiency anemia type Expected: 12/14/2023, Expires: 03/14/2024 [facility] Work Phone: Comment on above: Expected: 12/14/2023, Expires: Start: 12-14-2023 End: 03-14-2024 Hemoglobin A1c in Blood HGB A1C Lab Routine Hyperglycemia Expected: 12/14/2023, Expires: 03/14/2024 [facility] Work Phone: Comment on above: Expected: 12/14/2023, Expires: Start: 12-14-2023 End: 03-14-2024 Iron and Iron binding capacity panel - Serum or Plasma IRON + TIBC Lab Routine Iron deficiency anemia, unspecified iron deficiency anemia type Expected: 12/14/2023, Expires: 03/14/2024 [facility] Work Phone: Comment on above: Expected: 12/14/2023, Expires: 4 Start: 12-14-2023 End: 03-14-2024 Lipid 1996 panel - Serum or Plasma LIPID PANEL BASIC Lab Routine Familial hypercholesterolemia Expected: 12/14/2023, Expires: 03/14/2024 [facility] Work Phone: Comment on above: Expected: 12/14/2023, Expires: 4 Start: 12-14-2023 End: 03-14-2024 PSA/PROSTSPECAG SCRN PSA/PROSTSPECAG SCRN Lab Routine BPH associated with nocturia Screening for prostate cancer Expected: 12/14/2023, Expires: 03/14/2024 [facility] Work Phone: Comment on above: Expected: 12/14/2023, Expires: 4 Start: 08-25-2023 Advance Directive Discussion Advance Directive Discussion [facility] Start: 04-25-2023 Covid-19 Vaccine () Covid-19 Vaccine () [facility] Start: 04-25-2023 Influenza vaccination [facility] Start: 12-03-2022 End: 02-02-2023 25-hydroxyvitamin D3 [Mass/volume] in Serum or Plasma VITAMIN D 25 HYDROXY Lab Routine Vitamin D deficiency Expected: 12/03/2022, Expires: 02/02/2023 [facility] Work Phone: Comment on above: Expected: 12/03/2022, Expires: 3 Start: 12-03-2022 End: 02-02-2023 CBC panel - Blood by Automated count CBC Lab Routine Familial hypercholesterolemia Expected: 12/03/2022, Expires: 02/02/2023 [facility] Work Phone: Comment on above: Expected: 12/03/2022, Expires: 3 Start: 12-03-2022 End: 02-02-2023 Cobalamin (Vitamin B12) [Mass/volume] in Serum or Plasma VITAMIN B12 BLOOD Lab Routine Vitamin B12 deficiency Expected: 12/03/2022, Expires: 02/02/2023 [facility] Work Phone: Comment on above: Expected: 12/03/2022, Expires: 3 Start: 12-03-2022 End: 02-02-2023 Comprehensive metabolic 2000 panel - Serum or Plasma COMP METABOLIC PANEL Lab Routine Familial hypercholesterolemia Expected: 12/03/2022, Expires: 02/02/2023 [facility] Work Phone: Comment on above: Expected: 12/03/2022, Expires: 3 Start: 12-03-2022 End: 02-02-2023 Lipid 1996 panel - Serum or Plasma LIPID PANEL BASIC Lab Routine Familial hypercholesterolemia Expected: 12/03/2022, Expires: 02/02/2023 [facility] Work Phone: Comment on above: Expected: 12/03/2022, Expires: 3 Start: 12-03-2022 End: 02-02-2023 PSA/PROSTSPECAG SCRN PSA/PROSTSPECAG SCRN Lab Routine BPH associated with nocturia Screening for prostate cancer Expected: 12/03/2022, Expires: 02/02/2023 [facility] Work Phone: Comment on above: Expected: 12/03/2022, Expires: 3 Start: 12-03-2022 End: 02-02-2023 Thyrotropin [Units/volume] in Serum or Plasma TSH BLD Lab Routine Elevated serum creatinine Fatigue, unspecified type Familial hypercholesterolemia BPH associated with nocturia Expected: 12/03/2022, Expires: 02/02/2023 [facility] Work Phone: Comment on above: Expected: 12/03/2022, Expires: 3 Start: 08-25-2022 ADVANCE DIRECTIVE DISCUSSION ADVANCE DIRECTIVE DISCUSSION [facility] Start: 06-15-2022 Patient discharge [facility] Work Phone: Start: 06-14-2022 Catheterization of vein [facility] Work Phone: Start: 06-13-2022 Application of intermittent pneumatic compression device [facility] Work Phone: Start: 06-13-2022 Ambulation without limitation [facility] Work Phone: Start: 06-13-2022 Assessment of risk of venous thromboembolism [facility] Work Phone: Start: 06-13-2022 Documentation procedure [facility] Work Phone: Start: 06-13-2022 Incentive spirometry [facility] Work Phone: Start: 06-13-2022 Insertion of catheter into peripheral vein [facility] Work Phone: Start: 06-13-2022 Measuring intake and output [facility] Work Phone: Start: 06-13-2022 Oxygen therapy [facility] Work Phone: Start: 06-13-2022 Providing care according to standard [facility] Work Phone: Start: 06-13-2022 Referral to gastroenterology service [facility] Work Phone: Start: 06-13-2022 Referral to occupational therapist [facility] Work Phone: Start: 06-13-2022 Referral to service [facility] Work Phone: Start: 06-13-2022 [facility] Work Phone: Start: 06-13-2022 Following clinical pathway protocol [facility] Work Phone: Start: 06-13-2022 Admission procedure [facility] Work Phone: Start: 05-29-2022 Hepatitis B surface antibody level LDL CHOLESTEROL [facility] Start: 04-25-2022 Influenza vaccination INFLUENZA (#1) [facility] Start: 02-15-2022 End: 04-17-2022 Renal function 2000 panel - Serum or Plasma RENAL FUNCTION PANEL Lab Routine Elevated serum creatinine Expected: 02/15/2022, Expires: 04/17/2022 [facility] Work Phone: Comment on above: Expected: 02/15/2022, Expires: 2 Start: 12-27-2021 End: 02-26-2022 CREATININE BLD CREATININE BLD Lab Routine Right groin pain Expected: 12/27/2021, Expires: 02/26/2022 [facility] Work Phone: Comment on above: Expected: 12/27/2021, Expires: 2 Start: 08-25-2021 ADVANCE DIRECTIVE DISCUSSION ADVANCE DIRECTIVE DISCUSSION [facility] Start: 06-06-2021 PNEUMOCOCCAL: 65+ (2 - PCV) PNEUMOCOCCAL: 65+ (2 - PCV) [facility] Start: 05-09-2021 COVID-19 Vaccine (3 - Pfizer booster) COVID-19 Vaccine (3 - Pfizer booster) [facility] Work Phone: Start: 03-08-2021 COVID-19 VACCINE (4 - Booster for Pfizer series) COVID-19 VACCINE (4 - Booster for Pfizer series) [facility] Start: 01-01-2021 COVID-19 VACCINE (4 - Booster for Pfizer series) COVID-19 VACCINE (4 - Booster for Pfizer series) [facility] Start: 01-01-2021 COVID-19 VACCINE (5 - Booster) COVID-19 VACCINE (5 - Booster) [facility] Start: 01-01-2021 COVID-19 VACCINE (6 - Booster) COVID-19 VACCINE (6 - Booster) [facility] Start: 01-01-2021 COVID-19 VACCINE (6 - Pfizer series) COVID-19 VACCINE (6 - Pfizer series) [facility] Start: 04-25-2020 Influenza vaccination Flu vaccine (#1) [place], [place] Start: 02-14-2019 Annual Wellness Visit (AWV) Annual Wellness Visit (AWV) [place], [place] Start: 05-12-2018 End: 05-12-2018 Radex spine lumbosacral minimum 4 views XR LUMBAR 4VWS FLEX/EX [facility] Work Phone: Start: 08-12-2017 End: 08-12-2017 Appointment Appointment [facility] Work Phone: Start: 08-01-2017 End: 08-13-2017 *Hepatic Function Panel *Hepatic Function Panel [facility] Work Phone: Start: 08-01-2017 End: 08-13-2017 Lipid panel [AGGREGATE] *Lipid Profile CC PCP [facility] Work Phone: Start: 02-03-2017 End: 02-03-2017 Appointment Appointment [facility] Work Phone: Start: 02-03-2017 End: 02-03-2017 DJN DJN [facility] Work Phone: Start: 02-03-2017 End: 02-03-2017 Follow Up Appt 6 months Follow Up Appt 6 months [facility] Work Phone: Start: 02-03-2017 End: 02-03-2017 Stress Echocardiogram - Dobutamine Stress Echocardiogram - Dobutamine [facility] Work Phone: Start: 12-30-2016 End: 02-01-2017 *Hepatic Function Panel *Hepatic Function Panel [facility] Work Phone: Start: 12-30-2016 End: 02-01-2017 Lipid panel [AGGREGATE] *Lipid Profile CC PCP [facility] Work Phone: Start: 07-30-2016 End: 07-30-2016 DJN DJN [facility] Work Phone: Start: 07-30-2016 End: 07-30-2016 Follow Up Appt 6 months Follow Up Appt 6 months [facility] Work Phone: Start: 07-01-2016 End: 07-01-2016 *Hepatic Function Panel *Hepatic Function Panel [facility] Work Phone: Start: 07-01-2016 End: 07-01-2016 Lipid panel [AGGREGATE] *Lipid Profile CC PCP [facility] Work Phone: Start: 01-02-2016 End: 01-02-2016 MIRNA MIRNA [facility] Work Phone: Start: 01-02-2016 End: 01-02-2016 DJN DJN [facility] Work Phone: Start: 01-02-2016 End: 01-02-2016 Follow Up Appt 6 months Follow Up Appt 6 months [facility] Work Phone: Start: 01-02-2016 End: 01-02-2016 Stress Echocardiogram - Dobutamine Stress Echocardiogram - Dobutamine [facility] Work Phone: Start: 11-28-2015 End: 12-28-2015 *Hepatic Function Panel *Hepatic Function Panel [facility] Work Phone: Start: 11-28-2015 End: 12-28-2015 Lipid panel [AGGREGATE] *Lipid Profile CC PCP [facility] Work Phone: Start: 07-03-2015 End: 07-03-2015 DJN DJN [facility] Work Phone: Start: 07-03-2015 End: 07-03-2015 Follow Up Appt 6 months Follow Up Appt 6 months [facility] Work Phone: Start: 07-03-2015 End: 07-03-2015 Follow Up BP Check Follow Up BP Check [facility] Work Phone: Start: 05-29-2015 End: 05-29-2015 *Hepatic Function Panel *Hepatic Function Panel [facility] Work Phone: Start: 05-29-2015 End: 05-29-2015 Lipid panel [AGGREGATE] *Lipid Profile CC PCP [facility] Work Phone: Start: 12-13-2014 End: 12-13-2014 *Hepatic Function Panel *Hepatic Function Panel [facility] Work Phone: Start: 12-13-2014 End: 12-13-2014 Lipid panel [AGGREGATE] *Lipid Profile CC PCP [facility] Work Phone: Start: 05-31-2014 End: 06-14-2014 *Hepatic Function Panel *Hepatic Function Panel [facility] Work Phone: Start: 05-31-2014 End: 05-31-2014 KATTY ALANIZ [facility] Work Phone: Start: 05-31-2014 End: 05-31-2014 Follow Up Appt 1 year Follow Up Appt 1 year [facility] Work Phone: Start: 05-31-2014 End: 06-14-2014 Lipid panel [AGGREGATE] *Lipid Profile CC PCP [facility] Work Phone: Start: 05-31-2014 End: 06-30-2014 Stress Echocardiogram - Dobutamine Stress Echocardiogram - Dobutamine [facility] Work Phone: Start: 2014 RSV Vaccine (1 - 1-dose 75+ series) RSV Vaccine (1 - 1-dose 75+ series) [facility] Start: 05-24-2013 End: 05-18-2014 KATTY ALANIZ [facility] Work Phone: Start: 05-24-2013 End: 05-24-2013 Echocardiography Echocardiogram (complete) [facility] Work Phone: Start: 05-24-2013 End: 05-18-2014 Follow Up Appt 1 year Follow Up Appt 1 year [facility] Work Phone: Start: 05-24-2013 End: 05-24-2013 Stress Echocardiogram - Dobutamine Stress Echocardiogram - Dobutamine [facility] Work Phone: Start: 05-19-2013 End: 05-31-2014 *Hepatic Function Panel *Hepatic Function Panel [facility] Work Phone: Start: 05-19-2013 End: 05-31-2014 Lipid panel [AGGREGATE] *Lipid Profile [facility] Work Phone: Start: 11-25-2012 End: 04-14-2013 *Hepatic Function Panel *Hepatic Function Panel [facility] Work Phone: Start: 11-25-2012 End: 04-14-2013 Lipid panel [AGGREGATE] *Lipid Profile [facility] Work Phone: Start: 11-11-2012 End: 11-11-2012 Follow Up Appt 6 months Follow Up Appt 6 months [facility] Work Phone: Start: 06-02-2012 End: 05-07-2012 *Hepatic Function Panel *Hepatic Function Panel [facility] Work Phone: Start: 06-02-2012 End: 05-07-2012 Lipid panel [AGGREGATE] *Lipid Profile [facility] Work Phone: Start: 05-25-2012 End: 05-25-2012 Electrocardiogram, complete EKG (In office) [facility] Work Phone: Start: 05-25-2012 End: 05-25-2012 Follow Up Appt 6 months Follow Up Appt 6 months [facility] Work Phone: Start: 11-11-2011 End: 11-21-2011 *Hepatic Function Panel *Hepatic Function Panel [facility] Work Phone: Start: 11-11-2011 End: 11-11-2011 Follow Up Appt 6 months Follow Up Appt 6 months [facility] Work Phone: Start: 11-11-2011 End: 11-11-2011 Follow Up Appt Other Follow Up Appt Other [facility] Work Phone: Start: 11-11-2011 End: 11-21-2011 Lipid panel [AGGREGATE] *Lipid Profile [facility] Work Phone: Start: 2004 Pneumococcal 65+ years Vaccine (1 of 1 - PPSV23) Pneumococcal 65+ years Vaccine (1 of 1 - PPSV23) [place], [place] Start: 1999 RSV Vaccine (1 - 1-dose 60+ series) RSV Vaccine (1 - 1-dose 60+ series) [facility] Start: 1989 Shingles Vaccine (1 of 2) Shingles Vaccine (1 of 2) [place] Start: 1989 SHINGRIX VACCINE (1 of 2) SHINGRIX VACCINE (1 of 2) [facility] Start: 1958 DTaP/Tdap/Td vaccine (1 - Tdap) DTaP/Tdap/Td vaccine (1 - Tdap) [place], [place] Start: 1958 Urine microalbumin profile [facility] Start: 1957 Anxiety Screening Anxiety Screening [facility] Start: 1949 Lipid panel Lipid screen [facility] Work Phone: Start: 1939 Creatinine measurement Creatinine monitoring [facility] Work Phone: Start: 1939 Potassium monitoring Potassium monitoring [facility] Work Phone: End: 01-26-2023 Ct abdomen & pelvis w/contrast material CT ABD/PEL W IVCON Radiology Routine Localized enlarged lymph nodes Right groin pain 1 Occurrences starting 12/27/2021 until 01/26/2023 [facility] Work Phone: Comment on above: 1 Occurrences starting 12/27/2021 until 01/26/2023 Hemoglobin.gastroint shannan nal.lower [Presence] in Stool by Immunoassay FECAL OCCULT BLOOD TEST Lab Routine Hypotension, unspecified hypotension type Ordered: 06/17/2022 [facility] Work Phone: Comment on above: Ordered: 06/17/2022 INFLUENZA SEASONAL QUADRIVALENT HIGH DOSE AGE 65+ INFLUENZA SEASONAL QUADRIVALENT HIGH DOSE AGE 65+ Immunization/Injection Routine Encounter for immunization Ordered: 06/03/2022 [facility] Work Phone: Comment on above: Ordered: 06/03/2022 Patient Education [facility] Work Phone: Patient referral [facility] Work Phone: End: 01-25-2023 Us pelvic nonobstetric image dcmtn limited/f/u US PELVIS LTD Radiology MAYANK Right inguinal pain Inguinal bulge 1 Occurrences starting 12/26/2021 until 01/25/2023 [facility] Work Phone: Comment on above: 1 Occurrences starting 12/26/2021 until 01/25/2023 [facility] Immunizations Immunization Date Immunization Notes Care Provider Az [facility]ide 06-30-2024 influenza, high dose seasonal, preservative-free Robel Onofre DO Work Phone: [facility] 06-30-2024 influenza virus vaccine, unspecified formulation JoKno DO Work Phone: [facility] 06-13-2023 influenza (HD-IIV4) vaccine, age 65+ yr, high dose, quadrivalent, PF (FLUZONE HIGH-DOSE) JoKno DO Work Phone: [facility] Work Phone: 06-13-2023 influenza virus vaccine, unspecified formulation JoKno DO Work Phone: [facility] 12-06-2022 pneumococcal (PCV20) vaccine, 20 valent (PREVNAR 20) JoKno DO Work Phone: [facility] Work Phone: 12-06-2022 pneumococcal Conjuga te, unspecified formulation JoKno DO Work Phone: [facility] Work Phone: 07-03-2022 influenza, high-dose , quadrivalent vaccine (FLUZONE HIGH DOSE QUADRIVALENT) Bessie Ambrocio APRN.ADVANCED PRACTICE NURSE PSYCHOTHERAPIST Work Phone: [facility] 11-06-2020 COVID-19 vaccine, ag e 12+ yr (PFIZER-BIONTECH - PURPLE TOP) Robel Onofre DO Work Phone: [facility] Work Phone: 10-16-2020 COVID-19 vaccine, ag e 12+ yr (PFIZER-BIONTECH - PURPLE TOP) Robel Onofre DO Work Phone: [facility] Work Phone: 06-06-2020 influenza, high-dose , quadrivalent vaccine (FLUZONE HIGH DOSE QUADRIVALENT) Robel Onofre DO Work Phone: [facility] Work Phone: 06-06-2020 pneumococcal polysaccharide vaccine, 23 valent Robel Onofre DO Work Phone: [facility] Work Phone: 03-25-2020 Covid (Pfizer) Dr. Robel Onofre Work Phone: [facility] 02-23-2020 Covid (Pfizer) Dr. Robel Onofre Work Phone: [facility] 08-25-2019 influenza, injectabl e, quadrivalent, preservative free Dr. Robel Onofre DO Work Phone: [facility] 08-25-2019 influenza, seasonal, injectable Dr. Robel Onofre Work Phone: [facility] Work Phone: 07-27-2019 influenza, high dose seasonal, preservative-free Robel Onofre DO Work Phone: [facility] 05-25-[address] Robel Onofre Work Phone: [facility] No information available. Dorota Koenig [facility] Work Phone: NEGATED: Highlighted row has not occurred!06-04-2022 influenza, high-dose, quadrivalent vaccine (FLUZONE HIGH DOSE QUADRIVALENT) Robel Onofre DO Work Phone: [facility] Work Phone: Payers Date Payer Category Payer Self-pay [id number] 2024 Medicare (Managed Care) MMO [employer] HMO [id number] 2024 Unknown [id number] 2021 Private Health Insurance [employer] [id number] 2021 Unknown [employer] MEDICARE SUPPLEMENT [id number] 2021-Present [phone] [id number] [place] [address] Indemnity [id number] 2021 Unknown [employer] MEDIC[employer] SUPPLEMENT [id number] 2021-Present [phone] [id number] [place] [address] Indemnity [id number] 2021 Medicare [id number] 2016 Private Health Insurance [employer] MEDICARE SUPP [id number] 2016-Present [phone] [address] [place] [address] NEBLKCHF [id number] 2016 Private Health Insurance [employer] MEDIC[employer] SUPP [id number] 2016-Present [phone] [address] [place] [address] [id number] 2014 Private Health Insurance [id number] 2004 Medicare MEDICARE MEDICAR E A AND B [id number] 2004-Present [phone] [address] [address] [place] [address] Medicare [id number] 2004 Medicare [id number] 2004 Medicare [id number] Unknown [id number] Unknown [id number] Unknown [id number] Unknown [id number] Social History Date Type Detail Facility Start: 02-11-2018 End: 06-13-2022 Assertion Unknown if ever smoked [facility] Work Phone: Start: 1940 Sex Assigned At Not on file [place], [place] Start: 07-27-2020 End: 12-14-2024 Tobacco smoking status NYIS Former smoker [facility] Work Phone: End: 07-27-1982 History of tobacco use Current smoker [facility] End: 07-27-1982 History of tobacco use Cigarette Smoker [facility] Start: 07-27-2020 End: 06-30-2024 Tobacco use and exposure Never used [facility] Start: 07-27-2020 Alcohol intake Lifetime non-drinker (finding) [facility] Work Phone: Start: 07-27-2020 End: 12-06-2022 History SDOH Alcohol Frequency 1 [facility] Work Phone: Start: 12-12-2021 End: 12-14-2024 Alcohol intake Current non-drinker of alcohol (finding) [facility] Start: 12-04-2020 End: 12-06-2022 History SDOH Social Connections Phone 5 [facility] Start: 12-04-2020 End: 12-06-2022 History SDOH Social Connections Meetings 3 [facility] Start: 12-04-2020 End: 12-06-2022 History SDOH Transport Med 2 [facility] Start: 12-04-2020 Education 12 [facility] Start: 12-02-2021 End: 07-03-2022 Exposure to SARS-CoV-2 (event) Not sure [facility] Work Phone: Start: 10-27-2019 None [facility] Start: 10-27-2019 Cigarettes [facility] Start: 1940 Sex Assigned At Male [facility] Start: 12-06-2022 History SDOH Alcohol Std Drinks 0 [facility] Start: 09-10-2022 End: 12-05-2022 History of Social function [facility] Start: 09-10-2022 End: 12-05-2022 Social connection and isolation panel [facility] Do you belong to any clubs or organizations such as jewish groups, unions, fraternal or athletic groups, or school groups? Yes [facility] Are you now , , , , never or living with a partner? [facility] How often to you hav e a drink containing alcohol? Never [facility] How many standard dr inks containing alcohol do you have on a typical day? Patient does not drink [facility] Do you feel stress - tense, restless, nervous, or anxious, or unable to sleep at night because your mind is troubled all the time - these days [OSQ] Only a little [facility] (I/We) worried wheervin er (my/our) food would run out before (I/we) got money to buy more. Never true [facility] In the past 12 month s, was there a time when you were not able to pay the mortgage or rent on time? No [facility] Do you feel stress - tense, restless, nervous, or anxious, or unable to sleep at night because your mind is troubled all the time - these days [OSQ] Not at all [facility] Start: 12-14-2024 Sex Male (finding) [facility] Medical Equipment Procedure Code Equipment Code Equipment Origin al Text Equipment Identifier Dates ACCOLADE II ANGL E STEM 127 DEG FDA Start: 11-26-2017 BIOLEX DELTA CER AMIC FEM HEAD FDA Start: 11-26-2017 TRIDENT X3 O DEG POLY INSERT FDA Start: 11-26-2017 trident susan acetabular shell FDA Start: 11-26-2017 Mesh Progrip Polyactic Acid Collagen Polyester [id number] Surgical Self Fixate - [id number] Start: 06-12-2022 ACCOLADE II ANGL E [...] FDA Start: 11-26-2017 Mesh Pro[employer]rip Wisam Pet [id number] Surgical Self Fixate Flat Sheet Hernia Sterile - [id number] Start: 06-12-2022 ACCOLADE II ANGL E [...] Assessment Result Facility 06-15-2022 Functional status Ambulates;Chair [facility] Work Phone: Mental Status Date Assessment Result Facility 12-14-2024 Cognitive function Voice/Name [facility] Work Phone: 06-15-2022 Cognitive function Voice/Name [facility] Work Phone: Clinical Notes 09-22-1996 to 06-27-2025 Telephone Encounter - Zenaida Morrissey [facility] 03/17/2025 8:57 AM EDTTelephone Encounter - Zenaida Morrissey [facility] 03/17/2025 8:57 AM Citlaly Maldonado MA - 01/18/2025 10:42 AM EDTPatient Instructions Note Date & Type Note Facility 06-27-2025 Note HNO ID: [id number] Author: SALLY STEELE CCC-TODDLER TEACHER Service: ? Author Type: Speech Language Pathologist Type: Progress Notes Filed: 06/27/2025 13:58 Note Text: Summary: DYSPHAGIA EVALUATION Episode Visit Count: 1 Therapist That Will Accept/Oversee The Plan Of Care: Sally Steele Start of Care Date: 06/27/25 Onset Date: 06/24/25 Patient Identified by Name and Date of : Yes [facility] SPEECH THERAPY [...] Barium Swallow Study (MBSS) Recommended Consults GI TODDLER TEACHER Recommendations: Instrumental Swallow Assessment Recommendations Instrumental Swallow [...] PO, Small Bite/Sip, Use extra moistening agents [place] Swallow Protocol: Pass Suspected Esophageal Deficits: Patient/Family [...] Return Demonstration TREATMENT: Evaluation: Swallow Eval Func (66910) Evaluation: Swallow Eval Func (48914) Current Home Program: Continue diet as tolerated. Continue current swallow/eating strategies. MBSS and GI follow-up ( (more content not included)... [facility] 06-25-2025 Note HNO ID: [id number] Author: ROBEL ONOFRE, DO Service: ? Author [...] 29.66 kg/(m2) Robel Onofre DO [facility] 06-24-2025 Note HNO ID: [id number] Author: NAMITA HARDWICK RT(R) Service: ? Author [...] PATIENT PRESENTS WITH AN IMPLANTABLE OR ATTACHED RADIOLOGIST PHYSICIAN: No RADIOLOGY DEPARTMENT: General X-ray: Exam(s) Completed: Chest X-Ray PERIPHERAL IV DATA: Not applicable SIGNED BY: RT Derrick(R) June 24, 2025 11:36 AM [facility] 06-24-2025 Note HNO ID: [id number] Author: ROBEL ONOFRE DO Service: ? Author [...] taking medications as prescribed. Continues to see [employer] Press Helper for followup Iron deficiency, eating iron rich [...] Macular degeneration NSTEMI (non-ST elevated myocardial infarction) ([facility]) 10/28/2019 Osteoarthritis of left hip Paresthesia [...] 07/28/2007 DIR RPR ANEURYSM ABDOMINAL AORTA 04/20/2011 [facility] EYLEA (AFLIBERCEPT) 2MG INTRAVITREAL INJECTION OD (RIGHT [...] Age of Onset Heart Mother age 60 [place], smoker None Father age 77 MVA Cataract [...] ALLERGIES (more content not included)... [facility] 03-17-2025 Telephone encounter Note Prescription [...] Zenaida Mace March 17, 2025 8:57 AM [facility] 03-17-2025 Miscellaneous Notes Prescription Refill Information [...] 2025 8:57 AM documented in this encounter [facility] 02-10-2025 Telephone encounter Note Prescription Refill [...] Cedillo MA February 10, 2025 7:53 PM [facility] 02-10-2025 Miscellaneous Notes Prescription Refill Information [...] 2025 7:53 PM documented in this encounter [facility] 01-18-2025 Note HNO ID: [id number] Author: CITLALY PAYTON MA Service: ? Author Type: Hosiery Pairer Type: Progress Notes Filed: 01/18/2025 10:43 Note [...] orders: Medicare Annual Wellness Visit 06/24/2025 in [facility] with ROBEL ONOFRE - Medicare Wellness, HCC gap closure HCC related Navigation Signature: Citlaly Payton MA January 18, 2025 10:43 AM [facility] 01-18-2025 History of Present illness [...] orders: Medicare Annual Wellness Visit 06/24/2025 in [facility] with ROBEL ONOFRE Medicare Wellness, HCC gap closure HCC related Navigation Signature: Citlaly Payton MA January 18, 2025 10:43 AM documented in this encounter [facility] 01-18-2025 Note Patient Outreach (NE TNAV) TODD MATAMOROS ([id number]) 1940 M Date Time Provider Department 01/18/25 [...] orders: Medicare Annual Wellness Visit 06/24/2025 in [facility] with ROBEL ONOFRE Medicare Wellness, HCC gap closure HCC related Navigation Signature: Citlaly Payton MA January 18, 2025 10:43 AM Allergies As of Date: 01/18/2025 (No Known Allergies) Date Reviewed: 12/14/2024 Reviewed by: Asha Hernandez APRN.CNP - Fully Assessed Reason for Visit: Population Health Navigation Outreach [3910] Cmt: [facility]/Workbench/ACO Prescriptions as of 01/18/2025 - simvastatin (ZOCOR) [...] by CITLALY PAYTON on 01/18/25 [facility] 12-27-2024 Instructions Robel Onofre DO - 12/27/2024 11:19 AM EDT STOP the Omeprazole Start on PROTONIX documented in this encounter [facility] 12-27-2024 Note HNO ID: [id number] Author: ROBEL ONOFRE DO Service: ? Author Type: Physician Type: Progress Notes Filed: 12/27/2024 14:03 Note Text: CC: Todd Matamoros is a 84 year old male who presents to the office for follow up HPI: Recently with episode of dizziness. Was assessed in office by Asha Hernandez CNP and then sent to [facility] for further assessment with [...] taking medications as prescribed. Continues to see [employer] Helper for followup Iron deficiency, eating iron rich [...] 07/28/2007 DIR RPR ANEURYSM ABDOMINAL AORTA 04/20/2011 [place] EYLEA (AFLIBERCEPT) 2MG INTRAVITREAL INJECTION OD [...] impair (more content not included)... [facility] 12-27-2024 History of Present illness Narrative CC: Todd Matamoros is a 84 year old male who presents to the office for follow up HPI: Recently with episode of dizziness. Was assessed in office by Asha Hernandez CNP and then sent to [facility] EMERGENCY DEPARTMENT for further assessment with [...] taking medications as prescribed. Continues to see [employer] for followup Iron deficiency, eating iron rich [...] Macular degeneration NSTEMI (non-ST elevated myocardial infarction) ([facility]) 10/28/2019 Osteoarthritis of left hip Paresthesia [...] 07/28/2007 DIR RPR ANEURYSM ABDOMINAL AORTA 04/20/2011 [facility] EYLEA (AFLIBERCEPT) 2MG INTRAVITREAL INJECTION OD (RIGHT [...] See patient instructions. Robel Onofre DO [address] [place] [address] documented in this encounter [facility] 12-21-2024 Telephone encounter Note Spoke with daughter and notified of below. Verbalized understanding. Nuria Hurst LPN [facility] 12-21-2024 Miscellaneous Notes Spoke with daughter [...] 12/14/24 for vertigo. Asha sent pt to [facility] ER that day and ER prescribed meclizine 12.5 mg take 3 x's day prn. Reports the meclizine has helped pt's vertigo. Daughter did not schedule ER f/u with pcp b/c patient has appt with pcp on Friday12/27/24 for a f/u. Reports pt has 1-2 meclizine pills left. Asking if pcp would send new Rx to [facility]. Pended. documented in this encounter [facility] 12-21-2024 Telephone encounter Note The following approved medication requests have been transmitted electronically. Requested Prescriptions Signed Prescriptions Disp Refills meclizine (ANTIVERT) 12.5 mg tab 20 tablet 0 Sig: Take 1 tablet by mouth three times a day as needed (for dizziness.). Authorizing Provider: PARISH BEASLEY PA-C [facility] 12-20-2024 Telephone encounter Note Daughter, Zulema, reports pt saw Asha on 12/14/24 for vertigo. Asha sent pt to [facility] ER that day and ER prescribed meclizine 12.5 mg take 3 x's day prn. Reports the meclizine has helped pt's vertigo. Daughter did not schedule ER f/u with pcp b/c patient has appt with pcp on Friday12/27/24 for a f/u. Reports pt has 1-2 meclizine pills left. Asking if pcp would send new Rx to [facility]. Pended. [facility] 12-14-2024 Radiology Diagnostic study note [facility] Imaging Services [address] [place], [place] [id number] CTA Head AND Neck W/ Contrast MR#: [id number] Acct: [id number] Name: TODD MATAMOROS Rep #: [id number] : [id number] M [id number] From: Robert Raymond MD PCP: Dr. Robel Onofre, DO Status: RE G ER Study:CTA Head AND Neck W/ Contrast Date of E xam: 12/14/24 Exam# [id number] Ordering Dr: Cristobal Mayo DO PROCEDURE: CTA [...] RIGHT Vertebral: Unremarkable. LEFT Vertebral: Unremarkable. Anatomy: [place] anatomy is normal. Aneurysm or [...] internal carotid artery. Cerebral atrophy. [facility] CC: Dr. Robel Onofre, DO; Dr. Cristobal Mayo DO ~ Creative Writer: Signed [facility] 12-14-2024 Instructions Asha Hernandez, GIA.[facility] - 12/14/2024 12:22 PM EDT We discussed [...] contact our office. documented in this encounter [facility] 12-14-2024 Note HNO ID: [id number] Author: ASHA HERNANDEZ APRN.LEO Service: ? Author Type: Nurse Practitioner Type: Progress Notes Filed: 12/14/2024 12:34 Note Text: CC: Patient presents with: Vertigo: Dizziness x 1 day HPI Recording using Abakan software for draft documentation of the visit was discussed with the patient/authorized fuels sales representative; all questions welcomed and answered. Patient/authorized fuels sales representative agreed to proceed Daryn is a [...] Macular degeneration NSTEMI (non-ST elevated myocardial infarction) ([facility]) 10/28/2019 Osteoarthritis of left hip Paresthesia [...] 07/28/2007 DIR RPR ANEURYSM ABDOMINAL AORTA 04/20/2011 [facility] EYLEA (AFLIBERCEPT) 2MG INTRAVITREAL INJECTION OD (RIGHT [...] Age of Onset Heart Mother age 60 [place], smoker None Father age 77 MVA Cataract Father No Known Problems Sister No Known Problems Brother No Known Problems (more content not included)... [facility] 12-14-2024 History of Present illness Narrative CC: Patient presents with: Vertigo: Dizziness x 1 day HPI Recording using Abakan software for draft documentation of the visit was discussed with the patient/authorized fuels sales representative; all questions welcomed and answered. Patient/authorized fuels sales representative agreed to proceed Daryn is a [...] Macular degeneration NSTEMI (non-ST elevated myocardial infarction) ([facility]) 10/28/2019 Osteoarthritis of left hip Paresthesia [...] 07/28/2007 DIR RPR ANEURYSM ABDOMINAL AORTA 04/20/2011 [facility] EYLEA (AFLIBERCEPT) 2MG INTRAVITREAL INJECTION OD (RIGHT [...] Age of Onset Heart Mother age 60 [place], smoker None Father age 77 MVA Cataract [...] Left Ear: Tympanic membrane normal. Mouth/Throat: Lips: [place]. Mouth: Mucous membranes are moist. Pharynx: Oropharynx [...] respiratory infections. Neurological exam revealed no abnormalities. Summit-Hallpike maneuver elicited vertigo when head turned to the right but negative for nystagmus. Differential diagnosis includes BPPV and potential cerebrovascular accident (CVA) due to age and cardiac history. - Recommended immediate evaluation in the emergency department for further diagnostic workup, including CT scan of the brain to rule out CVA. Patient is stable for his daughter to transport him to [facility] ER - Discussed potential treatments for [...] which included preparing to see the patient, [id number] patient care, completing clinical documentation, performing a medically appropriate examination, counseling and educating the patient/family/caregiver, and care coordination (not separately reported). Prescription instructions reviewed with patient as applicable. Potential red flag symptoms discussed with the patient. Reviewed appropriate action plan to take if red flag symptoms occur. Patient agreeable to treatment plan. Asha Hernandez APRN.ADVANCED PRACTICE NURSE PSYCHOTHERAPIST documented in this encounter [facility] 12-14-2024 Telephone encounter Note Pt's daughter [...] scheduled for this morning. Debra Romero LPN [facility] 12-14-2024 Miscellaneous Notes Pt's daughter calls [...] Debra Romero LPN documented in this encounter [facility] 12-09-2024 Telephone encounter Note Prescription Refill [...] Sravanthi Mace December 09, 2024 2:48 PM [facility] 12-09-2024 Miscellaneous Notes Prescription Refill Information [...] 2024 2:48 PM documented in this encounter [facility] 11-22-2024 Telephone encounter Note Patient has [...] 12/27/2024 Please advise. Thank you. Vanessa Casillas. [facility] 11-22-2024 Miscellaneous Notes Patient has been [...] you. Vanessa Casillas. documented in this encounter [facility] 11-08-2024 Telephone encounter Note Prescription Refill [...] Sravanthi Mace November 08, 2024 8:43 AM [facility] 11-08-2024 Miscellaneous Notes Prescription Refill Information [...] 2024 8:43 AM documented in this encounter [facility] 10-12-2024 Telephone encounter Note Letter signed on Nurse's desk 2nd floor. [facility] 10-12-2024 Miscellaneous Notes Letter signed on [...] Person calling: daughter: Jadyn Lew patient at: [phone] Was an appointment scheduled: No Closing statement: Zenaida Mace documented in this encounter [facility] 10-12-2024 Telephone encounter Note Okay for letter. 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 Please compose letter for me to review and sign Robel Onofre DO [facility] 10-08-2024 Telephone encounter Note Shy is calling Robel Onofre DO today to request Letter (Blindness confirmation for taxes) Patient has been identified by name and birthdate. Duration of symptoms: N/A Person calling: daughter: Jadyn Lew patient at: [phone] Was an appointment scheduled: No Closing statement: Zenaida Mace [facility] Work Phone: 10-08-2024 Telephone encounter Note For your information: Patient's insurance is now [employer]. Daughter unable to supply further information. Will call back with info to update namita. [facility] 10-08-2024 Miscellaneous Notes For your information: [...] 2024 8:15 AM documented in this encounter [facility] 10-08-2024 Telephone encounter Note Prescription Refill [...] Zenaida Mace October 08, 2024 8:15 AM [facility] 09-02-2024 Telephone encounter Note Forms mailed to Jadyn's home address as requested. Copy placed in chart of forms. [facility] 09-02-2024 Miscellaneous Notes Forms mailed to [...] it to her in the mail at [address]. [place], [place] [address]. Shahla Sofia RN Type of form: Deaf and blind form Form received via walk in When form is completed, PhoneTina when complete.[phone] Form has been forwarded to Physician Desk: Dr. Kingston Kirk LPN documented in this encounter [facility] 09-01-2024 Telephone encounter Note Paperwork is complete now Robel Onofre DO [facility] 09-01-2024 Telephone encounter Note Daughter calls to ask if form could be completed today as she is unexpectedly leaving to go out of town late this afternoon. Notified daughter that I was uncertain that letter would be completed that quickly. Daughter voices understanding and requests if can't be completed today to please send it to her in the mail at [address] [place], [place] [address]. Shahla Sofia RN [facility] 08-30-2024 Telephone encounter Note Type of form: Deaf and blind form Form received via walk in When form is completed, PhoneTina when complete.[phone] Form has been forwarded to Physician Desk: Dr. Kingston Kirk LPN [facility] 08-11-2024 Telephone encounter Note Prescription Refill [...] Lorrie Mace August 11, 2024 10:59 AM [facility] 08-11-2024 Miscellaneous Notes Prescription Refill Information [...] 2024 10:59 AM documented in this encounter [facility] 07-01-2024 Telephone encounter Note Patient notified and verbalized understanding. Kortney Bonner LPN [facility] 07-01-2024 Miscellaneous Notes Patient notified and verbalized understanding. Kortney Bonner LPN Please inform patient or daughters that his labs are overall stable. Urine has a little protein and is dark and concentrated. Needs to be drinking more water. Robel Onofre DO documented in this encounter [facility] 07-01-2024 Telephone encounter Note Please inform patient or daughters that his labs are overall stable. Urine has a little protein and is dark and concentrated. Needs to be drinking more water. Robel Onofre DO [facility] 06-30-2024 Note HNO ID: [id number] Author: ROBEL ONOFRE DO Service: ? Author [...] taking medications as prescribed. Continues to see [employer] for followup Iron deficiency, eating iron rich foods,no signs of bleeding. Last labs in November Mood, overall stable, taking Sertraline. Helps to care for his with dementia. Daughter feels he is doing well. 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 Lower abdomen. BPH (benign prostatic hyperplasia) CAD (coronary artery disease) Diverticulosis of colon (without mention of hemorrhage) GERD (gastroesophageal reflux disease) Hyperlipidemia Hypertension Internal hemorrhoids without mention of complication Macular degeneration NSTEMI (non-ST elevated myocardial infarction) ([facility]) 10/28/2019 Osteoarthritis of left hip Paresthesia [...] 07/28/2007 DIR RPR ANEURYSM ABDOMINAL AORTA 04/20/2011 [place] EYLEA (AFLIBERCEPT) 2MG INTRAVITREAL INJECTION OD [...] Ne (more content not included)... [facility] 06-30-2024 History of Present illness [...] taking medications as prescribed. Continues to see [employer] for followup Iron deficiency, eating iron rich foods,no signs of bleeding. Last labs in November Mood, overall stable, taking Sertraline. Helps to care for his with dementia. Daughter feels he is doing well. 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 Lower abdomen. BPH (benign prostatic hyperplasia) CAD (coronary artery disease) Diverticulosis of colon (without mention of hemorrhage) GERD (gastroesophageal reflux disease) Hyperlipidemia Hypertension Internal hemorrhoids without mention of complication Macular degeneration NSTEMI (non-ST elevated myocardial infarction) ([facility]) 10/28/2019 Osteoarthritis of left hip Paresthesia [...] 07/28/2007 DIR RPR ANEURYSM ABDOMINAL AORTA 04/20/2011 [place] EYLEA (AFLIBERCEPT) 2MG INTRAVITREAL INJECTION OD [...] See patient instructions. Robel Onofre DO [address] [place] [address] documented in this encounter [facility] 05-04-2024 Telephone encounter Note Prescription Refill [...] Zenaida Mace May 04, 2024 11:46 AM [facility] 05-04-2024 Miscellaneous Notes Prescription Refill Information [...] 2024 11:46 AM documented in this encounter [facility] 03-10-2024 History of Present illness Narrative [...] - SERTRALINE 25 MG TABLET Bessie Ambrocio APRN.ADVANCED PRACTICE NURSE PSYCHOTHERAPIST Currently: Accompanied by daughter Zulema today. Mood-significant [...] Macular degeneration NSTEMI (non-ST elevated myocardial infarction) ([facility]) 10/28/2019 Osteoarthritis of left hip Paresthesia [...] 07/28/2007 DIR RPR ANEURYSM ABDOMINAL AORTA 04/20/2011 [facility] EYLEA (AFLIBERCEPT) 2MG INTRAVITREAL INJECTION OD (RIGHT [...] Age of Onset Heart Mother age 60 [place], smoker None Father age 77 MVA Cataract [...] in no acute distress, well-hydrated, well nourished. GAMBELL. Psychiatric: pleasant, cooperative. Health Maintenance List DTaP,Tdap,Td [...] - SERTRALINE 25 MG TABLET Bessie Ambrocio APRN.ADVANCED PRACTICE NURSE PSYCHOTHERAPIST documented in this encounter [facility] 02-04-2024 History of Present illness Narrative [...] Date Acute bronchitis Aneurysm of abdominal aorta ([facility]) 04/20/2011. Lower abdomen. BPH (benign prostatic hyperplasia) CAD (coronary artery disease) Diverticulosis of colon (without mention of hemorrhage) GERD (gastroesophageal reflux disease) Hyperlipidemia Hypertension Internal hemorrhoids without mention of complication Macular degeneration NSTEMI (non-ST elevated myocardial infarction) ([facility]) 10/28/2019 Osteoarthritis of left hip Paresthesia [...] 07/28/2007 DIR RPR ANEURYSM ABDOMINAL AORTA 04/20/2011 [place] EYLEA (AFLIBERCEPT) 2MG INTRAVITREAL INJECTION OD [...] Age of Onset Heart Mother age 60 [place], smoker None Father age 77 MVA Cataract [...] in no acute distress, well-hydrated, well nourished. GAMBELL, significantly decreased sight.. Lungs: Lungs clear to [...] Bessie Ambrocio APRN.CNP\ documented in this encounter [facility] 01-26-2024 Telephone encounter Note Spoke to daughter patient was scheduled. Did make 40 min due to multiple concerns Abby Hardy MA [facility] 01-26-2024 Miscellaneous Notes Spoke to daughter patient was scheduled. Did make 40 min due to multiple concerns Abby Hardy MA Needs appointment to assess and discuss. Thank you, Cat Foote APRN.ADVANCED PRACTICE NURSE PSYCHOTHERAPIST Patient's daughter Jadyn calling stating that patient has been having issues with depression that seems to be getting worse due to 's worsening symptoms of dementia. Jadyn states that Todd is ready to try medication for this and is wondering if something could be sent to pharmacy. Please call Jadyn back once addressed. documented in this encounter [facility] 01-26-2024 Telephone encounter Note Needs appointment to assess and discuss. Thank you, Cat Foote APRN.ADVANCED PRACTICE NURSE PSYCHOTHERAPIST [facility] 01-26-2024 Telephone encounter Note Patient's daughter Jadyn calling stating that patient has been having issues with depression that seems to be getting worse due to 's worsening symptoms of dementia. Jadyn states that Todd is ready to try medication for this and is wondering if something could be sent to pharmacy. Please call Jadyn back once addressed. [facility] 01-16-2024 Telephone encounter Note TC to patients daughter Jadyn who is listed in chart to receive medical information. Jadyn verbalized understanding of providers message and has no questions at this time. MINA Myers [facility] 01-16-2024 Miscellaneous Notes TC to patients [...] Robel Onofre DO documented in this encounter [facility] 01-16-2024 Telephone encounter Note Please let him know that overall his labs look much better, improved from previous labs. Now alkaline phosphatase is normal. Renal and liver function is normal. Triglycerides are just slightly high which is related to fatty meat and sugars. Cut back on this if able Robel Onofre DO [facility] 01-01-2024 Telephone encounter Note Jadyn- Daughter notified and verbalized understanding. Marylu Villanueva MA [facility] 01-01-2024 Miscellaneous Notes Jadyn- Daughter notified [...] Robel Onofre DO documented in this encounter [facility] 01-01-2024 Telephone encounter Note Please call patient and let him know that his recent labs show that his 1 liver enzyme called alkaline phosphatase is sligthly high and his serum creatinine is also slightly high. I would like him to increase his electrolyte rich water intake to at least 60-80 oz a day and recheck labs in 2 weeks. Robel Onofre DO [facility] 12-22-2023 History of Present illness Narrative [...] taking medications as prescribed. Continues to see [employer] for followup Iron deficiency, eating iron rich [...] Macular degeneration NSTEMI (non-ST elevated myocardial infarction) ([facility]) 10/28/2019 Osteoarthritis of left hip Paresthesia [...] 07/28/2007 DIR RPR ANEURYSM ABDOMINAL AORTA 04/20/2011 [facility] EYLEA (AFLIBERCEPT) 2MG INTRAVITREAL INJECTION OD (RIGHT [...] Age of Onset Heart Mother age 60 [place], smoker None Father age 77 MVA Cataract [...] with the plan. Robel Onofre DO [address] [place] [address] documented in this encounter [facility] 11-25-2023 Miscellaneous Notes Spoke with pt [...] you. Rodney Mace. documented in this encounter [facility] 11-12-2023 Miscellaneous Notes Patient has been [...] you. Lidia Galvez. documented in this encounter [facility] 10-14-2023 Miscellaneous Notes Patient has been [...] Marisela Lilly Pss. documented in this encounter [facility] 07-31-2023 Miscellaneous Notes KIRAN 06/13/23 Scheduled 12/22/23 Patient has been identified by name and date of : Yes Requested Prescriptions Pending Prescriptions Disp Refills tamsulosin (FLOMAX) 0.4 mg 180 capsule 3 Sig: Take 2 capsules by mouth once daily. RX INSTRUCTIONS: Patient aware RX will be sent to pharmacy. No need to notify patient. Lidia Galvez documented in this encounter [facility] 07-31-2023 Miscellaneous Notes Called pts daughter who is his legal service specialist gave information provided. She voices understanding. Asked this me mailed to home address,. Printed and sent to home address as asked. rx written in letters and sent to patient. Also printed if they need this as well Please inform Robel Onofre DO Last office visit - 06/13/2023 Patients legal service specialist calling asking if they can please get a script for a stair lift chair. Thank you documented in this encounter [facility] 07-25-2023 Miscellaneous Notes Kiran--06/13/23 Nov--12/22/23 Last [...] patient. Lakesha Mace documented in this encounter [facility] 06-14-2023 History of Present illness Narrative [...] taking medications as prescribed. Continues to see [employer] for followup Iron deficiency, eating iron rich foods,no signs of bleeding. Last labs in November PAST MEDICAL HISTORY Diagnosis Date Acute bronchitis Aneurysm of abdominal aorta ([facility]) 04/20/2011. Lower abdomen. BPH (benign prostatic hyperplasia) CAD (coronary artery disease) Diverticulosis of colon (without mention of hemorrhage) GERD (gastroesophageal reflux disease) Hyperlipidemia Hypertension Internal hemorrhoids without mention of complication Macular degeneration NSTEMI (non-ST elevated myocardial infarction) ([facility]) 10/28/2019 Osteoarthritis of left hip Paresthesia [...] 07/28/2007 DIR RPR ANEURYSM ABDOMINAL AORTA 04/20/2011 [facility] EYLEA (AFLIBERCEPT) 2MG INTRAVITREAL INJECTION OD (RIGHT [...] See patient instructions. Robel Onofre DO [address] [place] [address] documented in this encounter [facility] 03-31-2023 Miscellaneous Notes Kiran--12/06/22 Nov--06/13/23 Last refill--lisinopril--10/07/22 90 with 1 refill Hctz--04/03/22 90 with 3 refills Last labs--12/06/22 Pharmacy verified in [facility] Patient has been identified by name [...] Zenaida Zacarias Pss documented in this encounter [facility] 02-12-2023 Miscellaneous Notes Patient has been [...] advise. Sravanthi Mace documented in this encounter [facility] 02-05-2023 Miscellaneous Notes Given Rx's to daughter. Order signed Robel Onofre DO Order and Handicap placard letter placed on provider's desk to sign. Nury Levy RN Order placed Robel Onofre DO Patient requesting prescription of Handicap placard. Patient has two cars not sure if he needs two scripts or just one? Please advise and call Zulema Bernstein when ready for machine pecan picker. documented in this encounter [facility] 12-25-2022 Miscellaneous Notes Patient's daughter Jadyn [...] Robel Onofre DO documented in this encounter [facility] 12-06-2022 History of Present illness Narrative [...] taking medications as prescribed. Will be seeing [employer] for follow up next week Iron deficiency, [...] Macular degeneration NSTEMI (non-ST elevated myocardial infarction) ([facility]) 10/28/2019 Osteoarthritis of left hip Paresthesia [...] 07/28/2007 DIR RPR ANEURYSM ABDOMINAL AORTA 04/20/2011 [facility] EYLEA (AFLIBERCEPT) 2MG INTRAVITREAL INJECTION OD (RIGHT [...] Age of Onset Heart Mother age 60 [place], smoker None Father age 77 MVA Cataract [...] with the plan. Robel Onofre DO [address] [place] [address] documented in this encounter [facility] 11-18-2022 Miscellaneous Notes Patient has been [...] Rodney Kirk LPN documented in this encounter [facility] 10-17-2022 Miscellaneous Notes Last office visit: 07/03/22 F/u scheduled: 12/06/22 Mikaela Varghese Ma Pharmacy verified in [facility] Patient has been identified by name [...] Zenaida Zacarias Pss documented in this encounter [facility] 10-07-2022 Miscellaneous Notes Kiran--07/03/22 Nov--12/06/22 Last [...] Lorrie Latham Pss documented in this encounter [facility] 09-10-2022 Miscellaneous Notes Patient has been identified by name and date of : Yes Requested Prescriptions Pending Prescriptions Disp Refills atenolol (TENORMIN) 50 mg tablet 90 tablet 3 Sig: Take 1 tablet by mouth once daily. RX INSTRUCTIONS: Patient aware RX will be sent to pharmacy. No need to notify patient. Lorrie Latham Pss documented in this encounter [facility] 07-24-2022 Miscellaneous Notes Patient has been [...] you. Cat Trammell documented in this encounter [facility] 07-04-2022 Miscellaneous Notes Spoke with pt's [...] Bessie Ambrocio APRN.CNP documented in this encounter [facility] 07-03-2022 History of Present illness Narrative Chief Complaint Patient presents with: [facility] F/U [facility] Todd Matamoros is a 82 year old male who presents here today for Above Complaints.. Today: Was admitted to [facility] on 06/13 for coffee ground emesis. [...] Macular degeneration NSTEMI (non-ST elevated myocardial infarction) ([facility]) 10/28/2019 Osteoarthritis of left hip Paresthesia [...] 07/28/2007 DIR RPR ANEURYSM ABDOMINAL AORTA 04/20/2011 [facility] EYLEA (AFLIBERCEPT) 2MG INTRAVITREAL INJECTION OD (RIGHT [...] Age of Onset Heart Mother age 60 [place], smoker None Father age 77 MVA Cataract [...] Bessie Ambrocio APRN.LEO documented in this encounter [facility] 06-27-2022 Miscellaneous Notes TC to patient [...] Robel Onofre DO documented in this encounter [facility] 06-21-2022 Miscellaneous Notes Pt daughter informed [...] having procedure. Please advise daughter Shy at [phone]. Thank you. documented in this encounter [facility] 06-17-2022 Miscellaneous Notes Noted. Good to hear. Thank you, Cat Lentz APRN.ADVANCED PRACTICE NURSE PSYCHOTHERAPIST Spoke with pts son pt is with [...] sooner if able. Thank you, Cat Lentz APRN.ADVANCED PRACTICE NURSE PSYCHOTHERAPIST Daughter calls and states pt had hernia surgery last 06-12-22. Pt was having complications and was admitted to [facility] 06-13-22 vomiting black coffee ground. and [...] Tiffanie Latham LPN documented in this encounter [facility] 06-17-2022 History of Present illness Narrative TRANSITION CARE MANAGEMENT (TCM) INITIAL CONTACT Hosiery Pairer Outreach Provider Action/FYI: Pt having low blood pressure, daughter called in. Phone encounter made for this. Initial contact with patient post discharge, spoke to daughter. Patient identified by name and . TRANSITION CARE MANAGEMENT INITIAL OUTREACH DOCUMENTATION: Date of Outreach: 06/17/2022 Outreach Attempt 1: Contact Made Date of Discharge 06/08/2022 Some recent data might be hidden SUMMARY: -Pt discharged from [facility] on 06/08/22. -Admitted for: vomiting coffee [...] records from recent hospitalization: Records are at [facility] documented in this encounter [facility] 06-13-[address] Tesfaye aware [...] Delma Mojica RN documented in this encounter [facility] 06-12-2022 Note HNO ID: [id number] Author: Tamara Stinson APRN.CRNA Service: Anesthesiology Author Type: Nurse Hookman Type: Anesthesia Procedure Notes Filed: 06/12/2022 12:03 PM Note Text: ANESTHESIOLOGY PROCEDURE NOTE Airway General Information Procedure Start Time/Medication Administration: 06/12/2022 11:46 AM Patient location during procedure: OR Timeout Performed Pre-procedure: timeout performed Consent Obtained: Yes Patient identity confirmed: [employer] team member Staffing OPERATING ROOM TECH: Tamara Stinson APRN.OPERATING ROOM TECH Performed by: SARI Indications and Patient Condition [...] attempts at approach: 1 SIGNATURE: Tamara Stinson APRN.OPERATING ROOM TECH PATIENT NAME: Todd Matamoros DATE: June 12, 2022 TIME: 12:02 PM CSN: [id number] [facility] 06-12-2022 Surgical operation note OPERATIVE/PROCEDURE REPORT LOG ID: [id number] SURGERY/PROCEDURE DATE: 06/12/2022 INCISION/PROCEDURE START TIME: 12:00 PM INCISION CLOSE/PROCEDURE END TIME: 12:49 PM SURGEON(S)/PROCEDURALIST(S) AND LEATHER ROLLER(S): Surgeon(s) and Role: * Florencio Tesfaye MD - Primary Nurse Practitioner: Nuria Banks APRN.ADVANCED PRACTICE NURSE PSYCHOTHERAPIST Physician Construction Rigger: Indy Mosqueda PA-C SURGERY/PROCEDURE(S): Laparoscopic bilateral inguinal hernia repair with mesh ANESTHESIA: General SURGERY/PROCEDURE DETAILS: Patient was brought into the operating room. Placed in the supine position. Under excellent general anesthetic the abdomen was sterilely prepped and draped in the usual fashion. Local was injected supraumbilically. Dissection was carried down to the fascia the fascia was grasped with a [place] varies needle was placed inside the abdomen [...] the fascia the umbilical port with a [id number] stitch of 0 Vicryl. Skin incisions were closed with subcuticular stitches of 4-0 Monocryl. Steri-Strips were applied sterile dressings were applied patient tolerated the procedure well. Nuria Banks CNP was my shipping and receiving assistant. She assisted with retraction, visualization and [...] TIME: 12:53 PM documented in this encounter [facility] 06-12-2022 History and physical note Images [...] Date Acute bronchitis Aneurysm of abdominal aorta ([facility]) 04/20/2011. Lower abdomen. BPH (benign prostatic hyperplasia) CAD (coronary artery disease) Diverticulosis of colon (without mention of hemorrhage) GERD (gastroesophageal reflux disease) Hyperlipidemia Hypertension Internal hemorrhoids without mention of complication Macular degeneration NSTEMI (non-ST elevated myocardial infarction) ([facility]) 10/28/2019 Osteoarthritis of left hip Paresthesia [...] FEM PROSTC AGRFT/ALGRFT Left 11/26/2017 Dr. Sukhjinder Leiws AVASTIN (BEVACIZUMAB) 1.25MG INTRAVITREAL INJECTION OD (RIGHT EYE) Right multiple COLONOSCOPY FLX DX W/COLLJ SPEC WHEN PFRMD 07/28/07 DIR RPR ANEURYSM ABDOMINAL AORTA 04/20/2011 [place] EYLEA (AFLIBERCEPT) 2MG INTRAVITREAL INJECTION OD [...] Age of Onset Heart Mother age 60 [place], smoker None Father age 77 MVA Cataract [...] right inguinal hernia repair with mesh - [id number] Anticipated Anesthetic: General Patient weight: Blood pressure 133/63, pulse (!) 59, temperature 36.4 C (97.6 F), weight 82 kg (180 lb 12.8 oz), SpO2 96 %. BMI: Body mass index is 28.32 kg/m . Planned antibiotic: Ancef 2gm IVPB correction lieutenant to OR SCDs needed - Yes Return [...] TIME: 11:11 AM documented in this encounter [facility] 06-07-2022 Miscellaneous Notes Received letter from Dr. Donald's office with notification to stop Plavix for 5 days prior to procedure but can continue aspirin therapy due to cardiac stent. TE from Erickson rasheed today notifying patient of instructions. Copy of letter given to Luiza Rivers CNP and original sent to roller mill operator to scan. Gianna Branham LPN documented in this encounter [facility] 06-07-2022 Miscellaneous Notes Message left for [...] 2022 10:44 AM documented in this encounter [facility] 06-04-2022 History of Past i llness Narrative Problem Noted Date Resolved Date Right inguinal hernia 06/04/2022 06/12/2022 documented as of this encounter (statuses as of 06/13/2022) [facility] History of Past illness Narrative* Problem Noted Date Resolved Date Right inguinal hernia 06/04/2022 06/12/2022 documented as of this encounter (statuses as of 06/13/2022) [facility] History of Past illness Narrative* Problem Noted Date Resolved Date Right inguinal hernia 06/04/2022 06/12/2022 documented as of this encounter (statuses as of 06/21/2022) [facility] of Past illness Narrative* Problem Noted Date Resolved Date Right inguinal hernia 06/04/2022 06/12/2022 documented as of this encounter (statuses as of 06/24/2022) [facility] of Past illness Narrative* Problem Noted Date Resolved Date Right inguinal hernia 06/04/2022 06/12/2022 documented as of this encounter (statuses as of 06/25/2022) [facility] of Past illness Narrative* Problem Noted Date Resolved Date Right inguinal hernia 06/04/2022 06/12/2022 documented as of this encounter (statuses as of 06/27/2022) [facility] of Past illness Narrative* Problem Noted Date Resolved Date Right inguinal hernia 06/04/2022 06/12/2022 documented as of this encounter (statuses as of 07/03/2022) [facility] of [facility] Narrative* Problem Noted Date Resolved Date Right inguinal hernia 06/04/2022 06/12/2022 documented as of this encounter (statuses as of 07/04/2022) [facility] of Past illness Narrative* Problem Noted Date Resolved Date Right inguinal hernia 06/04/2022 06/12/2022 documented as of this encounter (statuses as of 07/24/2022) [address]-2022 History of Past illness Narrative* Problem Noted Date Resolved Date Right inguinal hernia 06/04/2022 06/12/2022 documented as of this encounter (statuses as of 09/11/2022) [address]22 History of Past illness Narrative* Problem Noted Date Resolved Date Right inguinal hernia 06/04/2022 06/12/2022 documented as of this encounter (statuses as of 10/08/2022) [facility] Narrative* Problem Noted Date Resolved Date Right inguinal hernia 06/04/2022 06/12/2022 documented as of this encounter (statuses as of 10/17/2022) [facility] of Past illness Narrative* Problem Noted Date Resolved Date Right inguinal hernia 06/04/2022 06/12/2022 documented as of this encounter (statuses as of 11/18/2022) [address]22 History of Past illness Narrative* Problem Noted Date Resolved Date Right inguinal hernia 06/04/2022 06/12/2022 documented as of this encounter (statuses as of 12/06/2022) [facility] of Past illness Narrative* Problem Noted Date Resolved Date Right inguinal hernia 06/04/2022 06/12/2022 documented as of this encounter (statuses as of 12/26/2022) [address]22 History of Past illness Narrative* Problem Noted Date Resolved Date Right inguinal hernia 06/04/2022 06/12/2022 documented as of this encounter (statuses as of 02/05/2023) [facility] Narrative* Problem Noted Date Resolved Date Right inguinal hernia 06/04/2022 06/12/2022 documented as of this encounter (statuses as of 02/12/2023) [address]22 History of Past illness Narrative* Problem Noted Date Diagnosed Date Resolved Date Right inguinal hernia 06/04/20222021 documented as of this encounter (statuses as of 03/31/2023) [facility] of Past illness Narrative* Problem Noted Date Diagnosed Date Resolved Date Right inguinal hernia 06/04/20222021 documented as of this encounter (statuses as of 06/18/2023) [address]22 History of Past illness Narrative* Problem Noted Date Diagnosed Date Resolved Date Right inguinal hernia 06/04/20222021 documented as of this encounter (statuses as of 07/25/2023) [address]22 History of Past illness Narrative* Problem Noted Date Diagnosed Date Resolved Date Right inguinal hernia 06/04/20222021 documented as of this encounter (statuses as of 07/31/2023) [facility] Narrative* Problem Noted Date Diagnosed Date Resolved Date Right inguinal hernia 06/04/20222021 documented as of this encounter (statuses as of 07/31/2023) [facility] Narrative* Problem Noted Date Diagnosed Date Resolved Date Right inguinal hernia 06/04/20222021 documented as of this encounter (statuses as of 10/15/2023) [facility] of Past illness Narrative* Problem Noted Date Diagnosed Date Resolved Date Right inguinal hernia 06/04/20222021 documented as of this encounter (statuses as of 11/13/2023) [facility] illness Narrative* Problem Noted Date Diagnosed Date Resolved Date Right inguinal hernia 06/04/20222021 documented as of this encounter (statuses as of 11/24/2023) [facility] of Past illness Narrative* Problem Noted Date Diagnosed Date Resolved Date Right inguinal hernia 06/04/20222021 documented as of this encounter (statuses as of 11/25/2023) [facility] History of Present illness Narrative* Robel [...] Macular degeneration NSTEMI (non-ST elevated myocardial infarction) ([facility]) 10/28/2019 Osteoarthritis of left hip Paresthesia [...] 07/28/07 DIR RPR ANEURYSM ABDOMINAL AORTA 04/20/2011 [place] EYLEA (AFLIBERCEPT) 2MG INTRAVITREAL INJECTION OD [...] Age of Onset Heart Mother age 60 [place], smoker None Father age 77 MVA Cataract [...] - ICD9: 362.52, ICD10: H35.3230 F/u with Machine Rough Rounder 11. Screening for prostate cancer - ICD9: [...] with the plan. Robel Onofre DO [address] [place] [address] [facility] History and physical note * Luiza Rivers APRN.ADVANCED PRACTICE NURSE PSYCHOTHERAPIST - 05/31/2022 8:55 AM EDT HISTORY AND [...] fevers. Neurological: No history of TIA's, stroke, TIRE MOLD ENGRAVER tumor, impaired sensorium, hemiplegia, paraplegia orquadraplegia. No neurological symptoms or problems. Respiratory: No history of current cough or dyspnea, or pneumonia in the past 6 weeks. No history of respiratory/pulmonary symptoms or problems. Cardiovascular: Positive for: abdominal aortic aneurysm (s/p repair), anticoagulation therapy (ASA, Plavix), CAD, hyperlipidemia (on rx), hypertension (on rx) and open heart surgery Patient's last office visit with top dyeing machine tender, [facility], The following tests and/or procedures were performed: cardiac stents. Negative for: arrhythmia, atrial fibrillation, chest pain, CHF, congenital heart defect, DVT/PE, recent FL, murmur/valvular heart disease and valve surgery. GI: [...] 07/28/07 DIR RPR ANEURYSM ABDOMINAL AORTA 04/20/2011 [facility] EYLEA (AFLIBERCEPT) 2MG INTRAVITREAL INJECTION OD (RIGHT [...] Age of Onset Heart Mother age 60 [place], smoker None Father age 77 MVA Cataract [...] or any previous visit (from the past 61854 hour(s)). Assessment BPH associated with nocturia Assessment: controlled on rx Coronary artery disease due to lipid rich plaque Assessment: s/p CABG and stent, daily statin, BB, and ASA therapy. Also on Plavix, AC letter faxed to top dyeing machine tender office. Follows [facility], last OV 09/2021 scanned into [employer]. Denies CP, palpitations or SOB Familial hypercholesterolemia [...] have a large neck STOP-Bang Score: 3 [id number] Score: Age: >=75 Sex: male CHF history: No Hypertension history: Yes Stroke/TIA/thromboembolism history: No Vascular disease history: Yes Diabetes history: No [id number] Score: 4 ARISCAT Score: Age: >80 Preoperative [...] and consent discussed: yes. Patient / Responsible Democrat agrees to proceed: yes Patient / Surrogate agrees to blood products: blood products not planned Prepared for Surgery: optimally prepared for surgery, pending [see comment]. Labs AC letter faxed to [facility] CONSULTS: Patient does not require [...] 8:55 AM PAGER/CONTACT #: [facility] Instructions* Patient Instructions* Luiza Rivers APRN.CNP - 05/31/2022 8:55 AM EDT PATIENT PREOPERATIVE INSTRUCTIONS Florencio Tesfaye MD has scheduled you for your procedure at this surgery center: [facility]: [phone] -- [address] [address] [facility] [address]. Please read below carefully for your personalized [...] Procedures: - YOU MUST HAVE A RESPONSIBLE OCC THERAPIST TAKE YOU HOME. A VOUCHER CLERK OR INTERNET DATABASE SPECIALIST CANNOT BE MADE A RESPONSIBLE OCC THERAPIST. - We recommend that a responsible person [...] Advance Directive, please fax a copy to [phone] or email to for it to be [...] day. Luiza Rivers APRN.LEO [facility] History of Present illness Narrative* Florencio [...] Macular degeneration NSTEMI (non-ST elevated myocardial infarction) ([facility]) 10/28/2019 Osteoarthritis of left hip Paresthesia [...] 07/28/07 DIR RPR ANEURYSM ABDOMINAL AORTA 04/20/2011 [place] EYLEA (AFLIBERCEPT) 2MG INTRAVITREAL INJECTION OD [...] Age of Onset Heart Mother age 60 [place], smoker None Father age 77 MVA Cataract [...] benefits, anticipated outcomesand possible complications were mentioned. [facility] [...] right inguinal hernia repair with mesh - [id number] Anticipated Anesthetic: General Patient weight: Blood pressure 133/63, pulse (!) 59, temperature 36.4 C (97.6 F), weight 82 kg (180lb 12.8 oz), SpO2 96 %. BMI: Body mass index is 28.32 kg/m . Planned antibiotic: Ancef 2gm IVPB correction lieutenant to OR SCDs needed - Yes Return [...] Florencio Tesfaye III, MD [facility] Miscellaneous Notes* Telephone Encounter - Analilia [...] patient. Delma Alatorre Pss [facility] Miscellaneous Notes* Telephone Encounter - NATHAN [...] notify patient. Haritha Arias [facility] Miscellaneous Notes* Telephone Encounter - Marylu [...] week. Bessie Ambrocio APRN.LEO [facility] Miscellaneous Notes* Telephone Encounter - Bessie [...] declined. Shahla Sofia RN documented [facility] History of Present illness Narrative* Florencio [...] Date Acute bronchitis Aneurysm of abdominal aorta ([facility]) 04/20/2011. Lower abdomen. BPH (benign prostatic hyperplasia) CAD (coronary artery disease) Diverticulosis of colon (without mention of hemorrhage) GERD (gastroesophageal reflux disease) Hyperlipidemia Hypertension Internal hemorrhoids without mention of complication Macular degeneration NSTEMI (non-ST elevated myocardial infarction) ([facility]) 10/28/2019 Osteoarthritis of left hip Paresthesia [...] 07/28/07 DIR RPR ANEURYSM ABDOMINAL AORTA 04/20/2011 [place] EYLEA (AFLIBERCEPT) 2MG INTRAVITREAL INJECTION OD [...] Age of Onset Heart Mother age 60 [place], smoker None Father age 77 MVA Cataract Father No Known Problems Sister No Known Problems Brother No Known Problems Sister No Known Problems Sister No Known Problems Sister Coronary Artery Disease Brother Coronary Artery Disease Brother REVIEW OF SYMPTOMS: The review of systems data was entered by the nurse and reviewed by wv Nursing Notes: Bhavna Anne RN 01/11/2022 8:09 [...] Florencio Tesfaye III, MD [facility] Nurse Note* Bhavna Anne RN - [...] 07/28/2007 Bhavna Anne RN [facility] Miscellaneous Notes* Telephone Encounter - Bessie Abmrocio APRN.LEO - 01/03/2022 8:29 AM EDT Noted, [...] Thanks Robel Onofre DO documented [facility] Miscellaneous Notes* Telephone Encounter - Jessica Moon Ma - 12/27/2021 2:48 PM EDT Faxed to [facility]. * Telephone Encounter - Bessie Ambrocio APRN.CNP - 12/27/2021 2:44 PM EDT New order placed per below request. Bessie Ambrocio APRN.CNP * Telephone Encounter - Torie King LPN - 12/27/2021 1:38 PM EDT [facility] robotic weld technician Ju is calling to report if you are ruling out inguinal hernia the do not do this with an ultrasound at [facility]. It would be CT abd/pelvis with contrast. You can fax them a new order for CT. documented in this encounter[facility]05[facility]22 Miscellaneous Notes* Telephone Encounter - Nury Levy RN - 12/27/2021 8:13 AM EDT Patient's daughter calls and is requesting that ultrasound orders be faxed to [facility]. Orders faxed as requested. Nury Levy RN documented in this encounterP[facility]05[facility] History of Present illness Narrative* Bessie [...] Macular degeneration NSTEMI (non-ST elevated myocardial infarction) ([facility]) 10/28/2019 Osteoarthritis of left hip Paresthesia [...] 07/28/07 DIR RPR ANEURYSM ABDOMINAL AORTA 04/20/2011 [facility] EYLEA (AFLIBERCEPT) 2MG INTRAVITREAL INJECTION OD (RIGHT [...] Age of Onset Heart Mother age 60 [place], smoker None Father age 77 MVA Cataract [...] LTD Bessie Ambrocio APRN.CNP [facility] Miscellaneous Notes* Telephone Encounter - Bessie [...] to this. Scheduled same day appt with [facility] Specialist for evaluation. documented in [facility] History of Present illness Narrative* Robel [...] Macular degeneration NSTEMI (non-ST elevated myocardial infarction) ([facility]) 10/28/2019 Osteoarthritis of left hip Paresthesia [...] 07/28/07 DIR RPR ANEURYSM ABDOMINAL AORTA 04/20/2011 [facility] EYLEA (AFLIBERCEPT) 2MG INTRAVITREAL INJECTION OD (RIGHT [...] 414.3, ICD10: I25.10, I25.83 - f/u with [employer] Dry Press Helper as scheduled. stable 6. Hypertension, essential - [...] See patient instructions. Robel Onofre DO [address] [place] [address] [facility] Evaluation note* Diagnosis Onset Date Resolution Status Atherosclerosis of coronary artery bypass graft(s) without angina pectoris chronic Essential (primary) hypertension chronic Hyperlipemia, mixed chronic S/P CABG x 3 September 22, 1996 chronic Stented coronary artery October 28, 2019 [facility] Work Phone: Evaluation note* Diagnosis Presence [...] hypertension Actinic keratosis [facility]* Diagnosis Right inguinal pain- Primary Abdominal pain, right lower quadrant Inguinal bulge Abdominal or pelvic swelling, mass or lump, unspecified site [facility]* Diagnosis Right groin pain- Primary Abdominal pain, right lower quadrant Localized enlarged lymph nodes Enlargement of lymph nodes [facility]* Diagnosis Bilateral inguinal hernia without obstruction or gangrene, recurrence not specified- Primary [facility]* Diagnosis Bilateral inguinal hernia without obstruction or gangrene, recurrence not specified [facility]* Diagnosis Vitamin D deficiency- Primary Unspecified vitamin D deficiency Vitamin B12 deficiency Other B-complex deficiencies Elevated serum creatinine Other nonspecific findings on examination of blood documented in this encounter [facility] note* Diagnosis Right inguinal hernia- Primary Inguinal hernia without mention of obstruction or gangrene, unilateral or unspecified, (not specified as recurrent) Right inguinal hernia Inguinal hernia without mention of obstruction or gangrene, unilateral or unspecified, (not specified as recurrent) documented in this encounter [facility] note* Diagnosis Pre-operative examination- Primary Preoperative [...] specified as recurrent) [facility]* Diagnosis Hypertension, essential- Primary Unspecified essential [...] specified as recurrent) [facility]* Diagnosis Right inguinal hernia- Primary Inguinal hernia without mention of obstruction or gangrene, unilateral or unspecified, (not specified as recurrent) Right inguinal hernia Inguinal hernia without mention of obstruction or gangrene, unilateral or unspecified, (not specified as recurrent) [facility]* Diagnosis Onset Date Resolution Status Upper GI bleed acute [facility] Work Phone: Evaluation note* Diagnosis Onset Date Resolution Status Acute blood loss anemia acut e PEPE (acute kidney injury) ac [place] Erosive esophagitis acute Leukocytosis acute Status post bilateral inguinal hernia repair acute Upper GI bleed acute Urinary retention acute [facility] Work Phone: Evaluation note* Diagnosis Hypotension, unspecified hypotension type- Primary [facility] Diagnosis Hypertension, essential- Primary Unspecified essential hypertension 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 [facility] Diagnosis Vitamin D deficiency Unspecified vitamin D deficiency Vitamin B12 deficiency Other B-complex deficiencies documented in this encounter [facility] note* Diagnosis Vitamin D deficiency- Primary [...] deficiency anemia type documented in this encounter [facility] note* Diagnosis Macular degeneration of both eyes, unspecified type- [facility] Vitamin D deficiency Unspecified vitamin D deficiency Vitamin B12 deficiency Other B-complex deficiencies [facility] Diagnosis Hypertension, essential- Primary Unspecified [...] neoplasm of prostate [facility] Diagnosis Other eczema [facility] Diagnosis Vitamin D deficiency Unspecified vitamin D deficiency Vitamin B12 deficiency Other B-complex deficiencies [facility] Diagnosis Vitamin D deficiency Unspecified vitamin D deficiency Vitamin B12 deficiency Other B-complex deficiencies [facility] Vitamin D deficiency Unspecified vitamin D deficiency [facility] Diagnosis Hypertension, essential- Primary Unspecified essential [...] unspecified Actinic keratosis [facility] Diagnosis Elevated alkaline phosphatase level- Primary Other nonspecific abnormal serum enzyme levels Elevated serum creatinine Other nonspecific findings on examination of blood Thrombocytopenia (HCC) Thrombocytopenia, unspecified [facility] Diagnosis Feelings of worthlessness- Primary Stress Other psychological or physical stress, not elsewhere classified Lack of motivation Other depression Macular degeneration of both eyes, unspecified type Bilateral hearing loss, unspecified hearing loss type [facility]* Diagnosis Feelings of worthlessness- Primary Stress Other psychological or physical stress, not elsewhere classified Lack of motivation Other depression [facility]* Diagnosis Pre-operative examination- Primary Preoperative examination, [...] motivation Other depression [facility]* Diagnosis Pre-operative examination- Primary Preoperative examination, [...] glucose Other depression documented in this encounter [facility] note* Diagnosis Pre-operative examination- Primary Preoperative [...] Other B-complex deficiencies documented in this encounter [facility] note* Diagnosis Pre-operative examination- Primary Preoperative [...] depression documented in this encounter [facility] note* Diagnosis Pre-operative examination- Primary Preoperative [...] vitamin D deficiency documented in this encounter [facility] noteNo assessment information availableWTrumbull [facility] Work Phone: Evaluation note* Diagnosis Pre-operative [...] Abnormality of gait documented in this encounter [facility] note* Diagnosis Pre-operative examination- Primary Preoperative [...] vertigo), unspecified laterality [facility] Diagnosis Pre-operative examination- Primary Preoperative examination, [...] Other B-complex deficiencies [facility] Diagnosis Pre-operative examination- Primary Preoperative examination, [...] motivation Other [facility]ogram head and neck only mild plaque noted right internal carotid. No other acute findings. This is not causing her symptoms. EKG labs stable. Use meclizine as needed. Follow-up with her doctor. If Symptoms recur or worsens, return to ED for reevaluation.[facility] Work Phone: Reason for referral (narrative)* Diagnostic Procedure Only (Urgent) - Pending Review Specialty Diagnoses / Procedures Referred By Bala sheridan Referred To Contact US IMAGING Diagnoses Right inguinal pain Inguinal bulge Procedures US PELVIS LTD US PELVIC NONOBSTETRIC IMAGE DCMTN LIMITED/F/U Bessie Ambrocio, GIA.ADVANCED PRACTICE NURSE PSYCHOTHERAPIST [address] [place] [address] Us Imaging Referral ID Status Reason Start Date Expiration Date Visits Requested Visits Authorized [id number] Pending Review Auto-Generat ed Referral 12/26/2021 01/25/2023 1 1 [facility]No reason for referral information availableWTrumbull Memorial Hospital Work Phone: Instructions Instruction Description Start Date Patient advised to follow-up with Primary Care Physician for BMI management. Advance Directives No Advanced Directives Records FoundDocuments on File Type Date Recorded Patient Rolling Machine Tender Expl anation ACP-Advance Directive ACP-Power of Scraper Loader Operator Advance Directive Response Recorded Date/ Time Living Will Yes November 04, 2019 8:26am Power of Scraper Loader Operator Yes November 03 8:26am Advance Directive Response Recorded Date/ Time Name of Medical Power of Scraper Loader Operator Thierno Matamoros June 13, 2022 5:30pm Living Will Yes June 13 5:30pm Power of Scraper Loader Operator Yes June 13, 2022 5:30pm Advance Directive Response Recorded Date/ Time Name of Medical Power of Scraper Loader Operator Jadyn Peralta, Thierno Matamoros and Shy Bernstein June 13, 2022 8:21pm Living Will Yes June 13 8:21pm Power of Scraper Loader Operator Yes June 13, 2022 8:21pm Advance Directive Response Recorded Date/ Time Do you have a Healthcare Power of Scraper Loader Operator? No December 14, 2024 12:42pm Advance Directive Response Recorded Date/ Time Living Will Yes June 13 8:21pm Do you have a Healthcare Power of Scraper Loader Operator? Yes June 13, 2022 8:21pm Do you have a Healthcare Power of Scraper Loader Operator? No December 14, 2024 12:42pm Assessments Diagnosis [...] Bypass Graft John Clark MD [address] [facility] [address] [place] [address] Status Reason Specialty Diagnoses / Procedures Referre d By Contact Referred To Contact Open Radiology Diagnoses Hx of endovascular stent graft for abdominal aortic aneurysm AAA (abdominal aortic aneurysm) without rupture (HCC) Aftercare following surgery of the circulatory system Procedures VL AORTA/IVC/ILIAC/BYPASS GRAFT COMPLETE Shailesh Stone PA [address] [place] [address] Specialty Diagnoses / Procedures Referred By Bala sheridan Referred To Contact CT IMAGING Diagnoses Localized enlarged lymph nodes Right groin pain Procedures CT ABD/PEL W IVCON CT ABD & PELVIS W/CONTRAST Robel Onofre, DO [address] [place] [address] Ct Imaging Referral ID Status Reason Start Date Expiration Date Visits Requested Visits Authorized [id number] Pending Review Auto-Generat ed Referral 12/27/2021 01/26/2023 1 1 Specialty Diagnoses / Procedures Referred By Bala sheridan Referred To Contact General Surgery Diagnoses Bilateral inguinal hernia without obstruction or gangrene, recurrence not specified Procedures CONSULT TO GENERAL SURGERY OFFICE/OUTPATIENT [facility] 60-74 MINUTES Robel Onofre, DO [address] [place] [address] Referral ID Status Reason Start Date Expiration Date Visits Requested Visits Authorized [id number] Authorized PCP Requested Referral 01/02/2022 01/02/2023 1 [...] section and content) DATE CREATED AUTHOR 06/22/2021 [facility] DATE CREATED AUTHOR AUTHOR'S ORGANIZ ATION 06/17/2022 [facility] DATE CREATED AUTHOR AUTHOR'S ORGANIZ ATION 06/27/2025 [facility] DATE CREATED AUTHOR AUTHOR'S ORGANIZ ATION 06/28/2025 [facility] DATE CREATED AUTHOR AUTHOR'S ORGANIZ ATION 07/01/2025 [facility] Source Comments (unrecognize d section and content) In the event this informatio n is protected by the Federal Confidentiality of Alcohol and Drug Abuse Patient Records regulations: The Federal rules restrict any use of the information to criminally investigate or prosecute any alcohol or drug abuse patient.[facility] the event this information is protected by the Federal Confidentiality of Alcohol and Drug Abuse Patient Records regulations: The Federal rules restrict any use of the information to criminally investigate or prosecute any alcohol or drug abuse patient.[facility] the event this information is protected by the Federal Confidentiality of Alcohol and Drug Abuse Patient Records regulations: The Federal rules restrict any use of the information to criminally investigate or prosecute any alcohol or drug abuse patient.[facility] the event this information is protected by the Federal Confidentiality of Alcohol and Drug Abuse Patient Records regulations: The Federal rules restrict any use of the information to criminally investigate or prosecute any alcohol or drug abuse patient.[facility]In the event this information is protected by the Federal Confidentiality of Alcohol and Drug Abuse Patient Records regulations: The Federal rules restrict any use of the information to criminally investigate or prosecute any alcohol or drug abuse patient.[facility]In the event this information is protected by the Federal Confidentiality of Alcohol and Drug Abuse Patient Records regulations: The Federal rules restrict any use of the information to criminally investigate or prosecute any alcohol or drug abuse patient.[facility] the event this information is protected by the Federal Confidentiality of Alcohol and Drug Abuse Patient Records regulations: The Federal rules restrict any use of the information to criminally investigate or prosecute any alcohol or drug abuse patient.[facility] HospitalIn the event this information is protected by the Federal Confidentiality of Alcohol and Drug Abuse Patient Records regulations: The Federal rules restrict any use of the information to criminally investigate or prosecute any alcohol or drug abuse patient.[facility]In the event this information is protected by the Federal Confidentiality of Alcohol and Drug Abuse Patient Records regulations: The Federal rules restrict any use of the information to criminally investigate or prosecute any alcohol or drug abuse patient.[facility] HospitalIn the event this information is protected by the Federal Confidentiality of Alcohol and Drug Abuse Patient Records regulations: The Federal rules restrict any use of the information to criminally investigate or prosecute any alcohol or drug abuse patient.[facility] HospitalIn the event this information is protected by the Federal Confidentiality of Alcohol and Drug Abuse Patient Records regulations: The Federal rules restrict any use of the information to criminally investigate or prosecute any alcohol or drug abuse patient.[facility]In the event this information is protected by the Federal Confidentiality of Alcohol and Drug Abuse Patient Records regulations: The Federal rules restrict any use of the information to criminally investigate or prosecute any alcohol or drug abuse patient.[facility]In the event this information is protected by the Federal Confidentiality of Alcohol and Drug Abuse Patient Records regulations: The Federal rules restrict any use of the information to criminally investigate or prosecute any alcohol or drug abuse patient.[facility]In the event this information is protected by the Federal Confidentiality of Alcohol and Drug Abuse Patient Records regulations: The Federal rules restrict any use of the information to criminally investigate or prosecute any alcohol or drug abuse patient.[facility]In the event this information is protected by the Federal Confidentiality of Alcohol and Drug Abuse Patient Records regulations: The Federal rules restrict any use of the information to criminally investigate or prosecute any alcohol or drug abuse patient.[facility] HospitalIn the event this information is protected by the Federal Confidentiality of Alcohol and Drug Abuse Patient Records regulations: The Federal rules restrict any use of the information to criminally investigate or prosecute any alcohol or drug abuse patient.[facility]In the event this information is protected by the Federal Confidentiality of Alcohol and Drug Abuse Patient Records regulations: The Federal rules restrict any use of the information to criminally investigate or prosecute any alcohol or drug abuse patient.[facility]In the event this information is protected by the Federal Confidentiality of Alcohol and Drug Abuse Patient Records regulations: The Federal rules restrict any use of the information to criminally investigate or prosecute any alcohol or drug abuse patient.[facility]In the event this information is protected by the Federal Confidentiality of Alcohol and Drug Abuse Patient Records regulations: The Federal rules restrict any use of the information to criminally investigate or prosecute any alcohol or drug abuse patient.[facility]In the event this information is protected by the Federal Confidentiality of Alcohol and Drug Abuse Patient Records regulations: The Federal rules restrict any use of the information to criminally investigate or prosecute any alcohol or drug abuse patient.[facility]In the event this information is protected by the Federal Confidentiality of Alcohol and Drug Abuse Patient Records regulations: The Federal rules restrict any use of the information to criminally investigate or prosecute any alcohol or drug abuse patient.[facility] HospitalIn the event this information is protected by the Federal Confidentiality of Alcohol and Drug Abuse Patient Records regulations: The Federal rules restrict any use of the information to criminally investigate or prosecute any alcohol or drug abuse patient.[facility]In the event this information is protected by the Federal Confidentiality of Alcohol and Drug Abuse Patient Records regulations: The Federal rules restrict any use of the information to criminally investigate or prosecute any alcohol or drug abuse patient.[facility]In the event this information is protected by the Federal Confidentiality of Alcohol and Drug Abuse Patient Records regulations: The Federal rules restrict any use of the information to criminally investigate or prosecute any alcohol or drug abuse patient.[facility]In the event this information is protected by the Federal Confidentiality of Alcohol and Drug Abuse Patient Records regulations: The Federal rules restrict any use of the information to criminally investigate or prosecute any alcohol or drug abuse patient.[facility]In the event this information is protected by the Federal Confidentiality of Alcohol and Drug Abuse Patient Records regulations: The Federal rules restrict any use of the information to criminally investigate or prosecute any alcohol or drug abuse patient.[facility]In the event this information is protected by the Federal Confidentiality of Alcohol and Drug Abuse Patient Records regulations: The Federal rules restrict any use of the information to criminally investigate or prosecute any alcohol or drug abuse patient.[facility] HospitalIn the event this information is protected by the Federal Confidentiality of Alcohol and Drug Abuse Patient Records regulations: The Federal rules restrict any use of the information to criminally investigate or prosecute any alcohol or drug abuse patient.[facility]In the event this information is protected by the Federal Confidentiality of Alcohol and Drug Abuse Patient Records regulations: The Federal rules restrict any use of the information to criminally investigate or prosecute any alcohol or drug abuse patient.[facility]In the event this information is protected by the Federal Confidentiality of Alcohol and Drug Abuse Patient Records regulations: The Federal rules restrict any use of the information to criminally investigate or prosecute any alcohol or drug abuse patient.[facility] HospitalIn the event this information is protected by the Federal Confidentiality of Alcohol and Drug Abuse Patient Records regulations: The Federal rules restrict any use of the information to criminally investigate or prosecute any alcohol or drug abuse patient.[facility]In the event this information is protected by the Federal Confidentiality of Alcohol and Drug Abuse Patient Records regulations: The Federal rules restrict any use of the information to criminally investigate or prosecute any alcohol or drug abuse patient.[facility] HospitalIn the event this information is protected by the Federal Confidentiality of Alcohol and Drug Abuse Patient Records regulations: The Federal rules restrict any use of the information to criminally investigate or prosecute any alcohol or drug abuse patient.[facility]In the event this information is protected by the Federal Confidentiality of Alcohol and Drug Abuse Patient Records regulations: The Federal rules restrict any use of the information to criminally investigate or prosecute any alcohol or drug abuse patient.[facility]In the event this information is protected by the Federal Confidentiality of Alcohol and Drug Abuse Patient Records regulations: The Federal rules restrict any use of the information to criminally investigate or prosecute any alcohol or drug abuse patient.[facility]In the event this information is protected by the Federal Confidentiality of Alcohol and Drug Abuse Patient Records regulations: The Federal rules restrict any use of the information to criminally investigate or prosecute any alcohol or drug abuse patient.[facility]In the event this information is protected by the Federal Confidentiality of Alcohol and Drug Abuse Patient Records regulations: The Federal rules restrict any use of the information to criminally investigate or prosecute any alcohol or drug abuse patient.[facility]In the event this information is protected by the Federal Confidentiality of Alcohol and Drug Abuse Patient Records regulations: The Federal rules restrict any use of the information to criminally investigate or prosecute any alcohol or drug abuse patient.[facility]In the event this information is protected by the Federal Confidentiality of Alcohol and Drug Abuse Patient Records regulations: The Federal rules restrict any use of the information to criminally investigate or prosecute any alcohol or drug abuse patient.[facility]In the event this information is protected by the Federal Confidentiality of Alcohol and Drug Abuse Patient Records regulations: The Federal rules restrict any use of the information to criminally investigate or prosecute any alcohol or drug abuse patient.[facility]In the event this information is protected by the Federal Confidentiality of Alcohol and Drug Abuse Patient Records regulations: The Federal rules restrict any use of the information to criminally investigate or prosecute any alcohol or drug abuse patient.[facility]In the event this information is protected by the Federal Confidentiality of Alcohol and Drug Abuse Patient Records regulations: The Federal rules restrict any use of the information to criminally investigate or prosecute any alcohol or drug abuse patient.[facility]In the event this information is protected by the Federal Confidentiality of Alcohol and Drug Abuse Patient Records regulations: The Federal rules restrict any use of the information to criminally investigate or prosecute any alcohol or drug abuse patient.[facility] HospitalIn the event this information is protected by the Federal Confidentiality of Alcohol and Drug Abuse Patient Records regulations: The Federal rules restrict any use of the information to criminally investigate or prosecute any alcohol or drug abuse patient.[facility]In the event this information is protected by the Federal Confidentiality of Alcohol and Drug Abuse Patient Records regulations: The Federal rules restrict any use of the information to criminally investigate or prosecute any alcohol or drug abuse patient.[facility]In the event this information is protected by the Federal Confidentiality of Alcohol and Drug Abuse Patient Records regulations: The Federal rules restrict any use of the information to criminally investigate or prosecute any alcohol or drug abuse patient.[facility]In the event this information is protected by the Federal Confidentiality of Alcohol and Drug Abuse Patient Records regulations: The Federal rules restrict any use of the information to criminally investigate or prosecute any alcohol or drug abuse patient.[facility]In the event this information is protected by the Federal Confidentiality of Alcohol and Drug Abuse Patient Records regulations: The Federal rules restrict any use of the information to criminally investigate or prosecute any alcohol or drug abuse patient.[facility]In the event this information is protected by the Federal Confidentiality of Alcohol and Drug Abuse Patient Records regulations: The Federal rules restrict any use of the information to criminally investigate or prosecute any alcohol or drug abuse patient.[facility]In the event this information is protected by the Federal Confidentiality of Alcohol and Drug Abuse Patient Records regulations: The Federal rules restrict any use of the information to criminally investigate or prosecute any alcohol or drug abuse patient.[facility]In the event this information is protected by the Federal Confidentiality of Alcohol and Drug Abuse Patient Records regulations: The Federal rules restrict any use of the information to criminally investigate or prosecute any alcohol or drug abuse patient.[facility]In the event this information is protected by the Federal Confidentiality of Alcohol and Drug Abuse Patient Records regulations: The Federal rules restrict any use of the information to criminally investigate or prosecute any alcohol or drug abuse patient.[facility]In the event this information is protected by the Federal Confidentiality of Alcohol and Drug Abuse Patient Records regulations: The Federal rules restrict any use of the information to criminally investigate or prosecute any alcohol or drug abuse patient.[facility] HospitalIn the event this information is protected by the Federal Confidentiality of Alcohol and Drug Abuse Patient Records regulations: The Federal rules restrict any use of the information to criminally investigate or prosecute any alcohol or drug abuse patient.[facility]In the event this information is protected by the Federal Confidentiality of Alcohol and Drug Abuse Patient Records regulations: The Federal rules restrict any use of the information to criminally investigate or prosecute any alcohol or drug abuse patient.[facility] HospitalIn the event this information is protected by the Federal Confidentiality of Alcohol and Drug Abuse Patient Records regulations: The Federal rules restrict any use of the information to criminally investigate or prosecute any alcohol or drug abuse patient.[facility]In the event this information is protected by the Federal Confidentiality of Alcohol and Drug Abuse Patient Records regulations: The Federal rules restrict any use of the information to criminally investigate or prosecute any alcohol or drug abuse patient.[facility] HospitalIn the event this information is protected by the Federal Confidentiality of Alcohol and Drug Abuse Patient Records regulations: The Federal rules restrict any use of the information to criminally investigate or prosecute any alcohol or drug abuse patient.[facility] HospitalIn the event this information is protected by the Federal Confidentiality of Alcohol and Drug Abuse Patient Records regulations: The Federal rules restrict any use of the information to criminally investigate or prosecute any alcohol or drug abuse patient.[facility]In the event this information is protected by the Federal Confidentiality of Alcohol and Drug Abuse Patient Records regulations: The Federal rules restrict any use of the information to criminally investigate or prosecute any alcohol or drug abuse patient.[facility] HospitalIn the event this information is protected by the Federal Confidentiality of Alcohol and Drug Abuse Patient Records regulations: The Federal rules restrict any use of the information to criminally investigate or prosecute any alcohol or drug abuse patient.[facility] HospitalIn the event this information is protected by the Federal Confidentiality of Alcohol and Drug Abuse Patient Records regulations: The Federal rules restrict any use of the information to criminally investigate or prosecute any alcohol or drug abuse patient.[facility] HospitalIn the event this information is protected by the Federal Confidentiality of Alcohol and Drug Abuse Patient Records regulations: The Federal rules restrict any use of the information to criminally investigate or prosecute any alcohol or drug abuse patient.[facility] HospitalIn the event this information is protected by the Federal Confidentiality of Alcohol and Drug Abuse Patient Records regulations: The Federal rules restrict any use of the information to criminally investigate or prosecute any alcohol or drug abuse patient.[facility] HospitalIn the event this information is protected by the Federal Confidentiality of Alcohol and Drug Abuse Patient Records regulations: The Federal rules restrict any use of the information to criminally investigate or prosecute any alcohol or drug abuse patient.[facility] Reason for Visit (unrecogniz ed section and content) Reason Comments 6 Month Exam Reason Comments Right groin pain Reason Comments hernia right groin area Reason Comments Faxed orders Reason Comments Change Of Order [facility] radiology dept. Reason Comments Results Appointment Reason Comments Consult bilateral inguinal h ernia Specialty Diagnoses / Procedures Referred By Contac t Referred To Contact General Surgery Diagnoses Bilateral inguinal hernia without obstruction or gangrene, recurrence not specified Procedures CONSULT TO GENERAL SURGERY OFFICE/OUTPATIENT NEW HIGH MDM 60-74 MINUTES Robel Onofre, DO [address] [place] [address] Referral ID Status Reason Start Date Expiration Date V isits Requested Visits Authorized [id number] Closed PCP Requested Referral 01/02/2022 01/02/2023 1 [...] INGUINAL HERNIA W/ MESH [facility] [address] [place] [address] Referral ID Status Reason Start Date Expiration Date Visits Re quested Visits Authorized [id number] 1 Reason Comments Orders Reason Comments [...] Care Teams (unrecognized sec tion and content) Nuclear Fuel Enrichment Technician Relationship Specialty Start Date End Date Robel Onofre, DO [address] [place] [address] PCP - General Family Practice 10/01/19 Nuclear Fuel Enrichment Technician Relationship Specialty Start Date End Date Robel Onofre, DO [address] [place] [address] PCP - General Family Practice 10/01/19 Nuclear Fuel Enrichment Technician Relationship Specialty Start Date End Date Robel Onofre, DO [address] [place] [address] PCP - General Family Practice 10/01/19 Nuclear Fuel Enrichment Technician Relationship Specialty Start Date End Date Robel Onofre, DO [address] [place] [address] PCP - General Family Practice 10/01/19 Nuclear Fuel Enrichment Technician Relationship Specialty Start Date End Date Robel Onofre, DO [address] [place] [address] PCP - General Family Practice 10/01/19 Nuclear Fuel Enrichment Technician Relationship Specialty Start Date End Date Robel Onofre, DO [address] [facility] [place] [place] [address] PCP - General Family Practice 10/01/19 Nuclear Fuel Enrichment Technician Relationship Specialty Start Date End Date Robel Onofre, DO [address] [place] [address] PCP - General Family Practice 10/01/19 Nuclear Fuel Enrichment Technician Relationship Specialty Start Date End Date Robel Onofre, DO [address] [place] [address] PCP - General Family Practice 10/01/19 Nuclear Fuel Enrichment Technician Relationship Specialty Start Date End Date Robel Onofre, DO [address] [place] [address] PCP - General Family Medicine 10/01/19 Nuclear Fuel Enrichment Technician Relationship Specialty Start Date End Date Robel Onofre, DO [address] [place] [address] PCP - General Family Medicine 10/01/19 Nuclear Fuel Enrichment Technician Relationship Specialty Start Date End Date Robel Onofre, DO [address] [place] [address] PCP - General Family Medicine 10/01/19 Nuclear Fuel Enrichment Technician Relationship Specialty Start Date End Date Robel Onofre, DO [address] [place] [address] PCP - General Family Medicine 10/01/19 Nuclear Fuel Enrichment Technician Relationship Specialty Start Date End Date Robel Onofre, DO [address] [place] [address] PCP - General Family Medicine 10/01/19 Nuclear Fuel Enrichment Technician Relationship Specialty Start Date End Date Robel Onofre, DO [address] [place] [address] PCP - General Family Medicine 10/01/19 Nuclear Fuel Enrichment Technician Relationship Specialty Start Date End Date Robel Onofre, DO [address] [place] [address] PCP - General Family Medicine 10/01/19 Nuclear Fuel Enrichment Technician Relationship Specialty Start Date End Date Robel Onofre, DO [address] [place] [address] PCP - General Family Medicine 10/01/19 Nuclear Fuel Enrichment Technician Relationship Specialty Start Date End Date Robel Onofre, DO [address] [place] [address] PCP - General Family Medicine 10/01/19 Nuclear Fuel Enrichment Technician Relationship Specialty Start Date End Date Robel Onofre, DO [address] [place] [address] PCP - General Family Medicine 10/01/19 Nuclear Fuel Enrichment Technician Relationship Specialty Start Date End Date Robel Onofre, DO [address] [place] [address] PCP - General Family Medicine 10/01/19 Nuclear Fuel Enrichment Technician Relationship Specialty Start Date End Date Robel Onofre, DO [address] [place] [address] PCP - General Family Medicine 10/01/19 Nuclear Fuel Enrichment Technician Relationship Specialty Start Date End Date Robel Onofre, DO [address] [place] [address] PCP - General Family Medicine 10/01/19 Nuclear Fuel Enrichment Technician Relationship Specialty Start Date End Date Robel Onofre DO [address] [place] [address] PCP - General Family Medicine 10/01/19 Nuclear Fuel Enrichment Technician Relationship Specialty Start Date End Date Robel Onofre DO [address] [place] [address] PCP - General Family Medicine 10/01/19 Nuclear Fuel Enrichment Technician Relationship Specialty Start Date End Date Robel Onofre DO [address] [facility] [place] [place] [address] PCP - General Family Medicine 10/01/19 Nuclear Fuel Enrichment Technician Relationship Specialty Start Date End Date Robel Onofre, [address] [facility] [place] [place] [address] PCP - General Family Medicine 10/01/19 Nuclear Fuel Enrichment Technician Relationship Specialty Start Date End Date Robel Onofre, [address] [facility] [place] [address] PCP - General Family Medicine 10/01/19 Nuclear Fuel Enrichment Technician Relationship Specialty Start Date End Date Robel Onofre, [address] [facility] [place] [address] PCP - General Family Medicine 10/01/19 Nuclear Fuel Enrichment Technician Relationship Specialty Start Date End Date Robel Onofre, [address] [facility] [place] [address] PCP - General Family Medicine 10/01/19 Nuclear Fuel Enrichment Technician Relationship Specialty Start Date End Date Robel Onofre, [address] [facility] [place] [address] PCP - General Family Medicine 10/01/19 Nuclear Fuel Enrichment Technician Relationship Specialty Start Date End Date Robel Onofre, [address] [facility] [place] [address] PCP - General Family Medicine 10/01/19 Nuclear Fuel Enrichment Technician Relationship Specialty Start Date End Date Robel Onofre DO [address] [facility] [place] [address] PCP - General Family Medicine 10/01/19 Nuclear Fuel Enrichment Technician Relationship Specialty Start Date End Date Robel Onofre DO [address] [facility] [place] [address] PCP - General Family Medicine 10/01/19 Nuclear Fuel Enrichment Technician Relationship Specialty Start Date End Date Robel Onofre DO [address] [facility] [place] [address] PCP - General Family Medicine 10/01/19 Nuclear Fuel Enrichment Technician Relationship Specialty Start Date End Date Robel Onofre DO [address] [facility] [place] [address] PCP - General Family Medicine 10/01/19 Nuclear Fuel Enrichment Technician Relationship Specialty Start Date End Date Robel Onofre DO [address] [facility] [place] [address] PCP - General Family Medicine 10/01/19 Cat Foote, SIZING END BANDER.ADVANCED PRACTICE NURSE PSYCHOTHERAPIST [address] [facility] [place] [address] Storage Battery Inspector Family Medicine 08/01/24 Bessie Ambrocio, SIZING END BANDER.ADVANCED PRACTICE NURSE PSYCHOTHERAPIST [address] [facility] [place] [address] Storage Battery Inspector Family Medicine 08/01/24 Nuclear Fuel Enrichment Technician Relationship Specialty Start Date End Date Robel Onofre DO [address] [facility] [place] [address] PCP - General Family Medicine 10/01/19 Cat Foote, SIZING END BANDER.ADVANCED PRACTICE NURSE PSYCHOTHERAPIST [address] [facility] [place] [address] Storage Battery Inspector Family Medicine 08/01/24 Bessie Ambrocio SIZING END BANDER.ADVANCED PRACTICE NURSE PSYCHOTHERAPIST [address] [place] [address] Storage Battery Inspector Family [facility] 08/01/24 Nuclear Fuel Enrichment Technician Relationship Specialty Start Date End Date Robel Onofre DO [address] [facility] [place] [place] [address] PCP - General Family Medicine 10/01/19 Cat Foote, SIZING END BANDER.ADVANCED PRACTICE NURSE PSYCHOTHERAPIST [address] [facility] [place] [place] [address] Storage Battery Inspector Family Medicine 08/01/24 Bessie Ambrocio, SIZING END BANDER.ADVANCED PRACTICE NURSE PSYCHOTHERAPIST [address] [facility] [place] [place] [address] [facility] 08/[facility]24 Nuclear Fuel Enrichment Technician Relationship Specialty Start Date End Date Robel Onofre DO [address] [facility] [place] [place] [address] PCP - General Family Medicine 10/01/19 Cat Foote, SIZING END BANDER.ADVANCED PRACTICE NURSE PSYCHOTHERAPIST [address] [facility] [place] [address] Storage Battery Inspector Family Medicine 08/01/24 Bessie Ambrocio, SIZING END BANDER.ADVANCED PRACTICE NURSE PSYCHOTHERAPIST [address] [facility] [place] [address] [facility] 08/01/24 Nuclear Fuel Enrichment Technician Relationship Specialty Start Date End Date Robel Onofre DO [address] [facility] [place] [address] PCP - General Family Medicine 10/01/19 Bessie Ambrocio, SIZING END BANDER.ADVANCED PRACTICE NURSE PSYCHOTHERAPIST [address] [place] [address] [facility] 08/01/24 Nuclear Fuel Enrichment Technician Relationship Specialty Start Date End Date Robel Onofre DO [address] [place] [address] PCP - General Family Medicine 10/01/19 Cat Foote, SIZING END BANDER.ADVANCED PRACTICE NURSE PSYCHOTHERAPIST [address] [place] [address] [facility] 08/01/24 11/12/24 Bessie Ambrocio, SIZING END BANDER.ADVANCED PRACTICE NURSE PSYCHOTHERAPIST [address] [place] [address] [facility] 08/01/24 Nuclear Fuel Enrichment Technician Relationship Specialty Start Date End Date Robel Onofre DO [address] [place] [address] PCP - General Family Medicine 10/01/19 Bessie Ambrocio, SIZING END BANDER.ADVANCED PRACTICE NURSE PSYCHOTHERAPIST [address] [place] [address] [facility] 08/01/24 Team Status: Active Member Role Status Dates Dr. Robel Onofre DO Primary Care Provider Active Team Status: Inactive Member Role Status Dates Dr. Robel Onofre DO Primary Care Provider Active Start: December 14, 2024 End: December 14, 2024 Dr. Cristobal Mayo DO Emergency Provider Active Start : December 14, 2024 End: December 14, 2024 Nuclear Fuel Enrichment Technician Relationship Specialty Start Date End Date Robel Onofre DO [address] [place] [address] PCP - General Family Medicine 10/01/19 Bessie Ambrocio, SIZING END BANDER.ADVANCED PRACTICE NURSE PSYCHOTHERAPIST [address] [facility] [place] [address] Storage Battery Inspector Family Medicine 08/01/24 Nuclear Fuel Enrichment Technician Relationship Specialty Start Date End Date Robel Onofre DO [address] [facility] [place] [address] PCP - General Family Medicine 10/01/19 [facility] SIZING END BANDER.ADVANCED PRACTICE NURSE PSYCHOTHERAPIST [address] [place] [address] Storage Battery Inspector Family [facility] 08/01/24 Nuclear Fuel Enrichment Technician Relationship Specialty Start Date End Date Robel Onofre DO [address] [place] [address] PCP - General Family Medicine 10/01/19 [facility], SIZING END BANDER.ADVANCED PRACTICE NURSE PSYCHOTHERAPIST [address] [place] [address] Storage Battery Inspector Family [facility] 08/01/24 Nuclear Fuel Enrichment Technician Relationship Specialty Start Date End Date Robel Onofre DO [address] [place] [address] PCP - General Family Medicine 10/01/19 [facility], SIZING END BANDER.ADVANCED PRACTICE NURSE PSYCHOTHERAPIST [address] [facility] [place] [address] Storage Battery Inspector Family Medicine 08/01/24 Una Mckinley, SIZING END BANDER.ADVANCED PRACTICE NURSE PSYCHOTHERAPIST [address] [place] [address] Storage Battery Inspector Family Medicine 02/07/25 Nuclear Fuel Enrichment Technician Relationship Specialty Start Date End Date Robel Onofre DO [address] [place] [address] PCP - General Family Medicine 10/01/19 Bessie Ambrocio APRN.ADVANCED PRACTICE NURSE PSYCHOTHERAPIST [address] [place], [place] [address] Storage Battery Inspector Family Medicine 08/01/24 Una Mckinley, GIA.ADVANCED PRACTICE NURSE PSYCHOTHERAPIST [address] [place], [place] [address] Storage Battery Inspector Family Medicine 02/07/25 Team Status: Active Member [...] Gross RN)1140 (Given - Provider: Tamara Stinson APRN.OPERATING ROOM TECH) scopolamine - REMOVE PATCH(Linked Group 1) ONCE, [...] Intraprocedure 1211 (Given - Provid er: Florencio Tefsaye MD) fentaNYL 50 mcg/mL 50 mcg injection [...] BE BASED ON THE PRIMARY CLINICAL RECORDS. [facility] [employer] [facility]. provides no warranty or guarantee of the accuracy or completeness of information in this document.
--- NOTE | 2025-07-29 02:19 | PCM.HP.STD ---
HPI - General General Date of Admission: 07/29/25 Date of Service: 07/29/25 Chief Complaint: Sudden onset of shortness of breath, could not breathe HPI Narrative EZE EVANS, is a 85 M who presents was brought to ED for sudden onset of shortness of breath, described as could not breathe last night. Similar event happened 1 day before yesterday and as per the son he got calm down with Ativan 0.5 mg 3 doses but patient was drowsy and lethargic yesterday night. Patient gets panic attack. He denies any chest pain pressure or tightness. Patient was admitted last week with similar symptoms of shortness of breath and heart failure/pulmonary edema that required cardiac cath and was found 3/4 grafts were patent. History of CABG in 1996 and cardiac stent in 2019. Patient was discharged left after cardiology consult. In ED, patient's BP was very high, 209/121 and was given IV enalapril, Bumex 1 mg and nitroglycerin 2 mg sublingual. After that blood pressure dropped down to 80/50, 79/51 but most recent blood pressure is improving 122/65. Patient on BiPAP. 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 Dyspnea on exertion Atherosclerosis of [place] coronary artery of [place] heart without angina pectoris Lupus anticoagulant disorder Syncope Spinal stenosis Rheumatic fever Essential (primary) hypertension Hyperlipemia, mixed Home Medications ?Medication ?Instructions ?Recorded ?Last Taken ?Type finasteride 5 mg tablet 5 mg PO DAILY prostate 02/23/18 12/14/24 History tamsulosin 0.4 mg capsule 0.4 mg PO BID prostate 10/27/19 12/14/24 History atenolol 50 mg tablet 50 mg PO DAILY BLOOD PRESSURE 11/18/19 12/14/24 History clopidogrel 75 mg tablet 75 mg PO DAILY BLOOD THINNER #90 02/07/20 12/14/24 Rx tabs simvastatin 20 mg tablet 20 mg PO QHS cholesterol #90 tabs 11/10/20 12/13/24 Rx cholecalciferol (vitamin D3) 50 50 mcg PO DAILY SUPPLEMENT 06/13/22 12/13/24 History mcg (2,000 unit) capsule (Vitamin D3) sertraline 25 mg tablet 50 mg PO DAILY 02/06/24 12/13/24 History cyanocobalamin (vitamin B-12) 1,000 mcg IM .COMPLEX 12/14/24 11/30/24 History 1,000 mcg/mL injection solution lisinopril 10 mg tablet 10 mg PO DAILY 12/14/24 12/14/24 History aspirin 81 mg capsule 81 mg PO DAILY #30 caps 07/19/25 Unknown Rx lorazepam 0.5 mg tablet 0.5 mg PO TID PRN PRN panic attack 07/29/25 Unknown History pantoprazole 40 mg tablet,delayed 40 mg PO DAILY 07/29/25 Unknown History release Allergy/AdvReac Type Severity Reaction Status Date / Time No Known Allergies Allergy Verified 07/29/25 00:02 Family History Mother CAD (coronary artery disease) Brother CAD (coronary artery disease) CABG Brother CAD (coronary artery disease) Surgical History Status post bilateral inguinal hernia repair Status post cardiac surgery History of heart artery stent H/O cardiac catheterization History of tonsillectomy 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) Stented coronary artery (10/28/19) H/O coronary artery bypass surgery History of endovascular stent graft for abdominal aortic aneurysm (AAA) History of left heart catheterization Social History Smoking Status: Former smoker how long ago did patient quit smokin years ago alcohol intake: never substance use type: does not use caffeine: Yes Type: coffee Number of servings: 4 ROS ROS Narrative 14 system ROS incomplete as patient on BiPAP and very hard of hearing I tried to obtain from the son and the patient over the BiPAP. Denies chest pain pressure or tightness. No fever or URI symptoms. Denies acute lower urinary tract symptoms or burning micturition BM regular. History of panic attack and depression after recent of her daughter about 1 week ago. On Ativan and sertraline Review of Systems ROS Unobtainable: other Details: Due to BiPAP and shortness of breath Vital Signs Vital Signs Vital Signs: 07/28/25 23:57 07/28/25 23:57 07/29/25 00:09 Temperature 98 F Temperature Source Temporal Pulse Rate 92 88 Respiratory Rate 35 H Respiratory Effort Short of Breath Labored Respiratory Pattern Blood Pressure 209/121 H 209/121 H Blood Pressure Mean 150 Pulse Ox 94 Oxygen Delivery Method Nasal Cannula Room Air Oxygen Flow Rate (L/min) 4 Fraction of Inspired Oxygen (FIO2) 07/29/25 00:12 07/29/25 00:13 07/29/25 00:13 Temperature Temperature Source Pulse Rate 87 Respiratory Rate 24 H Respiratory Effort Respiratory Pattern Tachypnea Blood Pressure Blood Pressure Mean Pulse Ox 94 94 Oxygen Delivery Method Bi-pap Bi-pap Oxygen Flow Rate (L/min) Fraction of Inspired Oxygen (FIO2) 40 50 50 07/29/25 00:19 07/29/25 00:19 07/29/25 00:21 Temperature Temperature Source Pulse Rate 84 84 Respiratory Rate 28 H 26 H Respiratory Effort Respiratory Pattern Blood Pressure 104/65 Blood Pressure Mean 78 Pulse Ox 94 94 94 Oxygen Delivery Method Bi-pap Oxygen Flow Rate (L/min) Fraction of Inspired Oxygen (FIO2) 50 07/29/25 00:24 07/29/25 00:27 07/29/25 00:30 Temperature Temperature Source Pulse Rate 82 86 80 Respiratory Rate 27 H 28 H 26 H Respiratory Effort Respiratory Pattern Blood Pressure 105/69 116/71 103/62 Blood Pressure Mean 81 84 76 Pulse Ox 94 98 96 Oxygen Delivery Method Oxygen Flow Rate (L/min) Fraction of Inspired Oxygen (FIO2) 07/29/25 00:33 07/29/25 00:36 07/29/25 00:39 Temperature Temperature Source Pulse Rate 80 80 82 Respiratory Rate 23 H 19 H 20 H Respiratory Effort Respiratory Pattern Blood Pressure 91/65 94/59 L 106/64 Blood Pressure Mean 73 71 78 Pulse Ox 94 96 96 Oxygen Delivery Method Oxygen Flow Rate (L/min) Fraction of Inspired Oxygen (FIO2) 07/29/25 00:42 07/29/25 00:45 07/29/25 00:48 Temperature Temperature Source Pulse Rate 81 78 74 Respiratory Rate 20 H 26 H 23 H Respiratory Effort Respiratory Pattern Blood Pressure 94/62 92/61 106/59 L Blood Pressure Mean 73 72 71 Pulse Ox 96 96 96 Oxygen Delivery Method Oxygen Flow Rate (L/min) Fraction of Inspired Oxygen (FIO2) 07/29/25 00:51 07/29/25 00:54 07/29/25 00:57 Temperature Temperature Source Pulse Rate 69 67 66 Respiratory Rate 21 H 25 H 23 H Respiratory Effort Respiratory Pattern Blood Pressure 85/53 L 84/61 L 98/62 Blood Pressure Mean 63 69 72 Pulse Ox 96 97 96 Oxygen Delivery Method Oxygen Flow Rate (L/min) Fraction of Inspired Oxygen (FIO2) 07/29/25 01:00 07/29/25 01:03 07/29/25 01:06 Temperature Temperature Source Pulse Rate 69 67 66 Respiratory Rate 28 H 24 H 23 H Respiratory Effort Respiratory Pattern Blood Pressure 105/62 100/61 102/61 Blood Pressure Mean 75 75 75 Pulse Ox 97 96 95 Oxygen Delivery Method Oxygen Flow Rate (L/min) Fraction of Inspired Oxygen (FIO2) 07/29/25 01:09 07/29/25 01:12 07/29/25 01:15 Temperature Temperature Source Pulse Rate 65 64 65 Respiratory Rate 22 H 23 H 26 H Respiratory Effort Respiratory Pattern Blood Pressure 98/55 L 110/57 L 96/65 Blood Pressure Mean 68 72 76 Pulse Ox 95 97 96 Oxygen Delivery Method Oxygen Flow Rate (L/min) Fraction of Inspired Oxygen (FIO2) 07/29/25 01:18 07/29/25 01:19 07/29/25 01:21 Temperature Temperature Source Pulse Rate 63 64 65 Respiratory Rate 24 H 24 H 21 H Respiratory Effort Respiratory Pattern Blood Pressure 79/59 L 81/57 L 80/50 L Blood Pressure Mean 67 65 60 Pulse Ox 95 96 95 Oxygen Delivery Method Oxygen Flow Rate (L/min) Fraction of Inspired Oxygen (FIO2) 07/29/25 01:24 07/29/25 01:27 07/29/25 01:30 Temperature Temperature Source Pulse Rate 65 62 66 Respiratory Rate 25 H 23 H 20 H Respiratory Effort Respiratory Pattern Blood Pressure 95/60 88/52 L 109/62 Blood Pressure Mean 72 63 76 Pulse Ox 98 97 100 Oxygen Delivery Method Oxygen Flow Rate (L/min) Fraction of Inspired Oxygen (FIO2) 07/29/25 01:40 07/29/25 01:45 07/29/25 01:50 Temperature Temperature Source Pulse Rate 61 61 63 Respiratory Rate 24 H 21 H 23 H Respiratory Effort Respiratory Pattern Blood Pressure 102/54 L 107/64 Blood Pressure Mean 69 78 Pulse Ox 98 99 98 Oxygen Delivery Method Oxygen Flow Rate (L/min) Fraction of Inspired Oxygen (FIO2) 07/29/25 02:00 07/29/25 02:02 07/29/25 02:03 Temperature 98 F 97.5 F L Temperature Source Oral Pulse Rate 61 61 66 Respiratory Rate 25 H 25 H 22 H Respiratory Effort Respiratory Pattern Blood Pressure 102/55 L 102/55 L 122/65 H Blood Pressure Mean 69 70 84 Pulse Ox 99 99 99 Oxygen Delivery Method Bi-pap Oxygen Flow Rate (L/min) Fraction of Inspired Oxygen (FIO2) Weight Weight: 197 lb 8.547 oz Body Mass Index (BMI) 30.9 Physical Exam Narrative General: Awake, alert, orientation cannot be ascertained on BiPAP HEENT: Atraumatic, PERRLA, EOMI, Normocephalic. Oral: On BiPAP Neck: Supple, JVP could not be evaluated. Negative Carotid Bruits Chest wall/Lungs: Air entry diminished in all lung mcgrath. Bilateral coarse crepitations Cardiovascular: Regular rate and rhythm, Normal S1,S2, No M/G/R Abdomen: Bowel Sounds Present, Soft, Non Tender, Non-Distended : No dysuria. No renal angle tenderness. No suprapubic tenderness. Extremities: No edema, varicose vein in right lower leg. No DVT Skin: No rashes, No breakdown Musculoskeletal: No Tenderness to Palpation of Joints or Extremities Neurological: Cranial nerves II-XII grossly intact, DTR 2+/4. No acute focal neurological deficit. Psych/Mental Status: Flat affect, anxiety and depression Results Lab / Micro Data 07/29/25 00:00 07/29/25 00:00 Labs: Laboratory Results - last 24 hr 07/29/25 00:00: WBC 9.2, RBC 4.63, Hgb 13.3, Hct 40.1, MCV 86.6, MCH 28.7, MCHC 33.2, RDW Std Deviation 47.0 H, RDW Coeff of Zoë 15.0 H, Plt Count 144 L, MPV 9.5, Immature Gran % (Auto) 0.400, Neut % (Auto) 79.2 H, Lymph % (Auto) 11.2 L, [place] % (Auto) 7.1, Eos % (Auto) 1.8, Baso % (Auto) 0.3, Absolute Neuts (auto) 7.3, Absolute Lymphs (auto) 1.03, Nucleated RBC % 0, PT 15.1 H, INR 1.2, APTT 76.1 H, Sodium 136, Potassium 4.0, Chloride 104, Carbon Dioxide 19.4 L, Anion Gap 13, BUN 24 H, Creatinine 1.22 H, Estim Creat Clear Calc 46.41 L, Est GFR (MDRD) Non-Af 58 L, BUN/Creatinine Ratio 19.8, Glucose 167 H, Calcium 9.3, Troponin T High Sens 215 H* D, NT pro BNP II 6585 H Imaging Radiology Impression Chest X-Ray 07/29/25 00:20 IMPRESSION: Mild increase in interstitial pulmonary congestion/infiltrates. [facility] Assessment & Plan Assessment/Plan (1) Flash pulmonary edema: (2) Acute hypoxic respiratory failure: (3) CHF exacerbation: PLAN: Plan This 85-year-old gentleman being admitted for acute onset of shortness of breath/dyspnea at rest due to flash pulmonary edema 1. Acute pulmonary edema due to heart failure exacerbation with acute hypoxic respiratory failure: Patient is being admitted in ICU on BiPAP. Shortness of breath is improving. proBNP elevated.Currently on 40% BiPAP pulse ox 98%, mild tachypnea RR 21 to 25/min. Patient not on home oxygen. 2. Acute on chronic systolic heart failure: Chest x-ray individually reviewed and shows bilateral alveolar opacities suggestive of interstitial pulmonary edema. Patient had echo on 07/19 reported EF 45% with regional wall motion abnormalities mainly lateral wall hypokinetic. LA moderately enlarged, 1-2+ eccentric MR. Mild TR PASP 28 mmHg. Mild eccentric AI. Started on IV furosemide 40 mg twice daily. Heart failure core measures including intake and output, fluid restriction less than 1500 mL, daily weight monitoring, kidney and electrolytes monitoring. Patient was supposed to get nitroglycerin infusion but not started because of low blood pressure. Nitroglycerin ointment ordered with holding parameters. Patient on baby aspirin, atenolol, lisinopril and simvastatin. 3. Recent non-STEMI: Twelve-lead EKG NSR, LVH with 88 bpm, QTc 510 ms. Mild QT prolongation. During recent hospitalization patient had cardiac cath which showed severe [place] CAD with patent 3 x 4 bypass graft and recommended maximize guideline directed medical therapy. This time patient did not had chest pain pressure or tightness. Serial troponins 215 and 271 but better than last hospitalization on 07/19, which was about 1999. 4. Hypertensive emergency: BP was 209/121 but decreased to low level in hypotensive range after IV enalapril, nitro sublingual. Most recent is better systolic 120s. Monitor BP in ICU. And titrate antihypertensive medications accordingly 5. Anxiety and depression with panic attack: Patient on Ativan 0.5 mg 3 times daily as needed but got drowsy after 3 doses a day before yesterday. Sertraline dose was increased recently by PCP on past Friday, 4 days ago. Will decrease Ativan 0.25 mg 3 times daily as needed 6. 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 Denies history of DVT. On Lovenox 40 mL subcu daily. Living will/advanced directive/end of life care: Patient does have living will or advanced directive. Patient's daughter is power of insurance defense attorney for health. After discussion of benefits/risks procedures involved with full code, DNR CC arrest and DNR CC, the patient and the son present ED, he opted for DNR CCA with no intubation. Patient doesn't want artificial life support including intubation, tube feed, ventilator and/chest compression, central venous catheter, vasopressor and DC shock if needed Total time spent in [id number] encounter in discussion of advanced directive 17 minutes. Laboratory Results 07/29/25 00:00: WBC 9.2, RBC 4.63, Hgb 13.3, Hct 40.1, MCV 86.6, MCH 28.7, MCHC 33.2, RDW Std Deviation 47.0 H, RDW Coeff of Zoë 15.0 H, Plt Count 144 L, MPV 9.5, Immature Gran % (Auto) 0.400, Neut % (Auto) 79.2 H, Lymph % (Auto) 11.2 L, [place]row % (Auto) 7.1, Eos % (Auto) 1.8, Baso % (Auto) 0.3, Absolute Neuts (auto) 7.3, Absolute Lymphs (auto) 1.03, Nucleated RBC % 0, PT 15.1 H, INR 1.2, APTT 76.1 H, Sodium 136, Potassium 4.0, Chloride 104, Carbon Dioxide 19.4 L, Anion Gap 13, BUN 24 H, Creatinine 1.22 H, Estim Creat Clear Calc 46.41 L, Est GFR (MDRD) Non-Af 58 L, BUN/Creatinine Ratio 19.8, Glucose 167 H, Calcium 9.3, Troponin T High Sens 215 H* D, NT pro BNP II 6585 H 07/29/25 01:50: Troponin T Hi Sens 2 Hr 271 H* Clinical Impression(s) from Imaging Studies Chest X-Ray 07/29/25 00:20 IMPRESSION: Mild increase in interstitial pulmonary congestion/infiltrates. Charges/Coding Visit Charges Inpatient E&M: 10128 Init Hosp L3 Procedures Hospitalists Procedures: 79806 Advncd Care Plan 30 Min
--- NOTE | 2025-07-29 02:20 | ED.RN ---
report called to receiving RN in ICU
[2025-07-29 02:21] LABS: Troponin T High Sens 2 HR 271 ng/L (<=22)
[2025-07-29 03:01] LABS: Magnesium 2.1 mg/dL (1.5-2.2)
[2025-07-29 04:42] LABS: Cholesterol 97 mg/dL (<=200); Low Density Lipoprotein Calc. 42 mg/dL; Triglycerides 125 mg/dL; Very Low Density Lipoprotein 25 mg/dL (5-40); cholesterol:hdl ratio screen 2.92
[2025-07-29 04:52] LABS: Anion Gap 11 (5-15); BUN 24 mg/dL (4-19); BUN/Creat Ratio 18.5 RATIO (10-20); Calcium,Total 9.3 mg/dL (7.6-11.0); Carbon Dioxide 19.8 mmol/L (21.0-32.0); Chloride 106 mmol/L (98-108); Estimated Creatinine Clearance 41.85 ml/min (50-250); Glucose 136 mg/dL (70-99); Potassium 4.0 mmol/L (3.3-5.1)
[2025-07-29] MEDS: Nitroglycerin Oint 1 INCH PACKET TD (06:14)
[2025-07-29 06:36] LABS: Hematocrit 34.7 % (40-54); Hemoglobin 11.6 g/dL (13.0-16.5); Immature Granulocytes Count 0.020 X10^3/uL (0.0-0.0); Mean Corp Hgb Conc 33.4 g/dL (32-36); Mean Corpuscular Volume 86.5 fL (80-94); Mean Platelet Vol. 9.3 fl (6.2-12.0); NRBC Flagged by Analyzer 0 % (0-5); Platelet Count 124 K/mm3 (150-450); RBC Distribution Width CV 15.0 % (11.6-14.6); RBC Distribution Width SD 47.4 fl (35.1-43.9); Red Blood Count 4.01 M/mm3 (4.6-6.2); White Blood Count 6.5 K/mm3 (4.4-11.0)
[2025-07-29 06:51] LABS: Troponin T High Sens 2 HR 254 ng/L (<=22)
[2025-07-29] MEDS: 0.9% Saline Lock 10 ML Syringe IV ×2 (08:11→18:05)
--- NOTE | 2025-07-29 08:19 | PCM.CONS.C ---
Assessment & Plan Assessment/Plan (1) Flash pulmonary edema: PLAN: He did present with flash pulm edema which was likely secondary to markedly elevated blood pressure. At this time I will suggest that we make some adjustments to the blood pressure medication and also isosorbide. I do not think there is a reason to repeat any testing at this time. He will continue to be treated with intravenous Lasix. (2) CAD (coronary artery disease): PLAN: He does have a history of coronary artery disease status post recent cardiac catheterization. Medical management would be the most recent (D. (3) Essential (primary) hypertension: PLAN: His blood pressure appears to be under better control this morning. The plan to be to continue the same with no major changes other than recommended above. Will see how he does. HPI Consult Data Date of Consult: 07/29/25 HPI Narrative HPI Narrative: EZE EVANS, is a 85 M who presents to the emergency room with mild shortness of breath last night. According to his son he was in his usual state of health but he had been having some anxiety spells saw his primary physician who put him on an anxiolytic. Later in the night he started getting more anxious and more short of breath but denies any chest pain. He had been seen in the hospital barely a week ago with a similar complaint. He has a history of coronary disease, hypertension, hyperlipidemia status post coronary bypass surgery with a HANCOCK to the LAD and diagonal sequential graft and the saphenous vein graft to the obtuse marginal vessel . He also has a saphenous vein graft to the right coronary artery. In 2019 he underwent PCI with thrombectomy to the saphenous vein graft to obtuse marginal vessel. During his recent hospitalization he underwent a cardiac catheterization which demonstrated a patent HANCOCK to the LAD, saphenous vein graft to the right coronary artery, subtotally occluded saphenous vein graft to obtuse marginal branch. His ejection fraction was approximately 40 to 45% with segmental wall motion abnormalities. Medical therapy was recommended. [facility] Medical History Hiatal hernia Restless legs High cholesterol History of stress test HTN (hypertension) Heart attack Macular degeneration of both eyes Atherosclerosis of coronary artery bypass graft(s) without angina pectoris Dyspnea on exertion Atherosclerosis of [place] coronary artery of [place] heart without angina pectoris Lupus anticoagulant disorder Syncope Spinal stenosis Rheumatic fever Essential (primary) hypertension Hyperlipemia, mixed Home Medications ?Medication ?Instructions ?Recorded ?Last Taken ?Type finasteride 5 mg tablet 5 mg PO DAILY prostate 02/23/18 12/14/24 History tamsulosin 0.4 mg capsule 0.4 mg PO BID prostate 10/27/19 12/14/24 History atenolol 50 mg tablet 50 mg PO DAILY BLOOD PRESSURE 11/18/19 12/14/24 History clopidogrel 75 mg tablet 75 mg PO DAILY BLOOD THINNER #90 02/07/20 12/14/24 Rx tabs simvastatin 20 mg tablet 20 mg PO QHS cholesterol #90 tabs 11/10/20 12/13/24 Rx cholecalciferol (vitamin D3) 50 50 mcg PO DAILY SUPPLEMENT 06/13/22 12/13/24 History mcg (2,000 unit) capsule (Vitamin D3) sertraline 25 mg tablet 50 mg PO DAILY 02/06/24 12/13/24 History cyanocobalamin (vitamin B-12) 1,000 mcg IM .COMPLEX 12/14/24 11/30/24 History 1,000 mcg/mL injection solution lisinopril 10 mg tablet 10 mg PO DAILY 12/14/24 12/14/24 History aspirin 81 mg capsule 81 mg PO DAILY #30 caps 07/19/25 Unknown Rx lorazepam 0.5 mg tablet 0.5 mg PO TID PRN PRN panic attack 07/29/25 Unknown History pantoprazole 40 mg tablet,delayed 40 mg PO DAILY 07/29/25 Unknown History release Allergy/AdvReac Type Severity Reaction Status Date / Time No Known Allergies Allergy Verified 07/29/25 00:02 Family History Mother CAD (coronary artery disease) Brother CAD (coronary artery disease) CABG Brother CAD (coronary artery disease) Surgical History Status post bilateral inguinal hernia repair Status post cardiac surgery History of heart artery stent H/O cardiac catheterization History of tonsillectomy 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) Stented coronary artery (10/28/19) H/O coronary artery bypass surgery History of endovascular stent graft for abdominal aortic aneurysm (AAA) History of left heart catheterization Social History Smoking Status: Former smoker how long ago did patient quit smokin years ago alcohol intake: never substance use type: does not use caffeine: Yes Type: coffee Number of servings: 4 ROS Constitutional Constitutional: Denies fever(s) or weight loss Eyes Eyes: Reports systems reviewed and no addt'l complaints, except as documented ENT HEENT: Reports systems reviewed and no addt'l complaints, except as documented Cardiovascular Cardiovascular: Reports dyspnea at rest and dyspnea on exertion; Denies chest pain at rest, chest pain with activity, edema, palpitations or paroxysmal nocturnal dyspnea Respiratory/Chest Respiratory/Chest: Reports dyspnea on exertion, shortness of breath at rest and shortness of breath with exertion; Denies productive cough Gastrointestinal Gastrointestinal: Denies change in bowel habits, nausea, vomiting or weight changes Genitourinary Genitourinary: Denies difficulty urinating Musculoskeletal Musculoskeletal: Denies joint stiffness or muscle weakness Integumentary Integumentary: Denies lesions Neurologic Neurologic: Denies dizziness or syncope Psychiatric Psychiatric: Denies anxiety Endocrine Endocrinology: Denies excessive sweating or fatigue Hematologic/Lymphatic Hematologic/Lymphatic: Denies anemia Allergic/Immunologic Allergic/Immunologic: Denies seasonal rhinorrhea Physical Exam Const alert and oriented x3 General Appearance: other HEENT normocephalic Eyes PERRL Neck full ROM Carotids: normal carotid upstroke Chest inspection of chest normal Chest: midline sternotomy incision Cardio regular rate and regular rhythm Rhythm: regular rhythm Extremity no clubbing, cyanosis or edema Objective Data Vital Signs: Vital Signs Temp Pulse Resp BP Pulse Ox O2 Del Method O2 Flow Rate 97.9 F 63 20 H 130/69 H 9 Bi-pap 4 07/29/25 06:00 07/29/25 08:00 07/29/25 08:00 07/29/25 08:00 07/29/25 08:00 07/29/25 08:00 07/28/25 23:57 FiO2 40 07/29/25 08:00 Oxygen Flow Rate (L/min) 4 Oxygen Delivery Method Bi-pap Weight: 184 lb 4.903 oz Body Mass Index (BMI) 28.8 Intake & Output: Intake and Output for Last 24 Hours 07/27/25 07/28/25 07/29/25 23:59 23:59 23:59 Intake Total 0 / 0 Output Total 200 / 200 Balance 0 / 0 -200 / -200 Lab / Micro Data 07/29/25 06:11 07/29/25 02:54 Labs: Laboratory Results - last 24 hr 07/29/25 00:00: WBC 9.2, RBC 4.63, Hgb 13.3, Hct 40.1, MCV 86.6, MCH 28.7, MCHC 33.2, RDW Std Deviation 47.0 H, RDW Coeff of Zoë 15.0 H, Plt Count 144 L, MPV 9.5, Immature Gran % (Auto) 0.400, Neut % (Auto) 79.2 H, Lymph % (Auto) 11.2 L, [place] % (Auto) 7.1, Eos % (Auto) 1.8, Baso % (Auto) 0.3, Absolute Neuts (auto) 7.3, Absolute Lymphs (auto) 1.03, Nucleated RBC % 0, PT 15.1 H, INR 1.2, APTT 76.1 H, Sodium 136, Potassium 4.0, Chloride 104, Carbon Dioxide 19.4 L, Anion Gap 13, BUN 24 H, Creatinine 1.22 H, Estim Creat Clear Calc 46.41 L, Est GFR (MDRD) Non-Af 58 L, BUN/Creatinine Ratio 19.8, Glucose 167 H, Calcium 9.3, Troponin T High Sens 215 H* D, NT pro BNP II 6585 H 07/29/25 01:50: Magnesium 2.1, Troponin T Hi Sens 2 Hr 271 H* 07/29/25 02:54: Sodium 137, Potassium 4.0, Chloride 106, Carbon Dioxide 19.8 L, Anion Gap 11, BUN 24 H, Creatinine 1.31 H, Estim Creat Clear Calc 41.85 L, Est GFR (MDRD) Non-Af 53 L, BUN/Creatinine Ratio 18.5, Glucose 136 H, Calcium 9.3, Triglycerides 125, Cholesterol 97, LDL Cholesterol, Calc 42, VLDL Cholesterol 25, HDL Cholesterol 33 L, Cholesterol/HDL Ratio 2.92, TSH 2.510 07/29/25 06:11: WBC 6.5, RBC 4.01 L, Hgb 11.6 L, Hct 34.7 L, MCV 86.5, MCH 28.9, MCHC 33.4, RDW Std Deviation 47.4 H, RDW Coeff of Zoë 15.0 H, Plt Count 124 L, MPV 9.3, Immature Gran % (Auto) 0.300, Neut % (Auto) 77.3 H, Lymph % (Auto) 12.7 L, [place] % (Auto) 8.8, Eos % (Auto) 0.6, Baso % (Auto) 0.3, Absolute Neuts (auto) 5.0, Absolute Lymphs (auto) 0.83, Nucleated RBC % 0, Troponin T Hi Sens 2 Hr 254 H* Cardiology Labs/Tests 07/29/25 00:00: WBC 9.2, RBC 4.63, Hgb 13.3, Hct 40.1, MCV 86.6, MCH 28.7, MCHC 33.2, Plt Count 144 L, MPV 9.5, Immature Gran % (Auto) 0.400, Neut % (Auto) 79.2 H, Lymph % (Auto) 11.2 L, [place] % (Auto) 7.1, Eos % (Auto) 1.8, Baso % (Auto) 0.3, Absolute Neuts (auto) 7.3, Nucleated RBC % 0, PT 15.1 H, INR 1.2, APTT 76.1 H, Sodium 136, Potassium 4.0, Chloride 104, Carbon Dioxide 19.4 L, Anion Gap 13, BUN 24 H, Creatinine 1.22 H, Est GFR (MDRD) Non-Af 58 L, BUN/Creatinine Ratio 19.8, Glucose 167 H, Calcium 9.3 07/29/25 01:50: Magnesium 2.1 07/29/25 02:54: Sodium 137, Potassium 4.0, Chloride 106, Carbon Dioxide 19.8 L, Anion Gap 11, BUN 24 H, Creatinine 1.31 H, Est GFR (MDRD) Non-Af 53 L, BUN/Creatinine Ratio 18.5, Glucose 136 H, Calcium 9.3, Triglycerides 125, Cholesterol 97, VLDL Cholesterol 25, HDL Cholesterol 33 L, Cholesterol/HDL Ratio 2.92 07/29/25 06:11: WBC 6.5, RBC 4.01 L, Hgb 11.6 L, Hct 34.7 L, MCV 86.5, MCH 28.9, MCHC 33.4, Plt Count 124 L, MPV 9.3, Immature Gran % (Auto) 0.300, Neut % (Auto) 77.3 H, Lymph % (Auto) 12.7 L, [place] % (Auto) 8.8, Eos % (Auto) 0.6, Baso % (Auto) 0.3, Absolute Neuts (auto) 5.0, Nucleated RBC % 0 Rhythm: EKG: ECHO: Stress Test: Cardiac Cath: PCI: CT Surgery: Holter monitor: EPS: PPM: CXR: Chest CT Scan: Radiography Diagnostic Testing: Radiology Impression Chest X-Ray 07/29/25 00:20 IMPRESSION: Mild increase in interstitial pulmonary congestion/infiltrates. Reading [facility] [address] [place] Risk Score for UA/STEMI Assesmment (YES = 1) Risk Stratification Applicable: Yes Age > or = 65: Yes > or = 3 CAD risk factors (HTN, Hypercholesterolemia, Diabetes, family hx, current smoker): Yes Known CAD (Stenosis > or = 50%): Yes ASA used in past 7 days: Yes Severe angina (> or = 2 episodes in 24 hrs): No EKG ST change > or = 0.5mm: No Positive cardiac markers: Yes Score KALLI Risk Score of mortality/ recurrent ischemic event over the next 14 days: 5 = 26.6% - HIGH RISK
[2025-07-29] MEDS: Cholecalciferol (VIT D3) 25 MCG TABLET (1,000 UNITS) 50 MCG PO (10:29)
[2025-07-29] MEDS: Senna/Docusate Sodium 1 Tablet 2 TABLET PO (10:30)
--- NOTE | 2025-07-29 12:31 | CASEMGMT ---
Social Work Copy of living will brought in and placed on pt chart. Copy of HCPOA brought in, however it lists pt's who has dementia and pt's dgt Jadyn who recently . SW updated dgt Zulema to this. Zulema feels as though there may be another document at home naming children Thierno and Zulema as decision makers and will look for it. At this time, as legal next of Kin, Thierno and Zulema will share decision making responsibilities if pt is not able to make own medical decisions. GODFREY Pitt
[2025-07-29] MEDS: Isosorbide DN 10 MG Tablet PO ×2 (14:14→20:37)
--- NOTE | 2025-07-29 14:49 | PN_ITS ---
Subjective Subjective Patient seen and examined. His son-in-law was by his bedside. He had no active complaints. His shortness of breath had resolved and he felt much better. Review of systems otherwise negative. He has remained hemodynamically stable. His blood pressure has improved markedly. Objective Data Objective Data Vital Signs: Vital Signs Temp Pulse Resp BP Pulse Ox O2 Del Method O2 Flow Rate 97.9 F 64 22 H 137/71 H 94 Room Air 3 07/29/25 06:00 07/29/25 11:34 07/29/25 09:00 07/29/25 09:00 07/29/25 12:25 07/29/25 14:28 07/29/25 12: FiO2 40 07/29/25 09:00 Oxygen Flow Rate (L/min) 3 Oxygen Delivery Method Room Air Weight: 184 lb 4.903 oz Body Mass Index (BMI) 28.8 Intake & Output: Intake and Output for Last 24 Hours 07/27/25 07/28/25 07/29/25 23:59 23:59 23:59 Intake Total 0 / 0 360 / 360 Output Total 1450 / 1450 Balance 0 / 0 -1090 / -1090 Lab / Micro Data 07/29/25 06:11 07/29/25 02:54 Labs: Laboratory Results - last 24 hr 07/29/25 00:00: WBC 9.2, RBC 4.63, Hgb 13.3, Hct 40.1, MCV 86.6, MCH 28.7, MCHC 33.2, RDW Std Deviation 47.0 H, RDW Coeff of Zoë 15.0 H, Plt Count 144 L, MPV 9.5, Immature Gran % (Auto) 0.400, Neut % (Auto) 79.2 H, Lymph % (Auto) 11.2 L, [place] % (Auto) 7.1, Eos % (Auto) 1.8, Baso % (Auto) 0.3, Absolute Neuts (auto) 7.3, Absolute Lymphs (auto) 1.03, Nucleated RBC % 0, PT 15.1 H, INR 1.2, APTT 76.1 H, Sodium 136, Potassium 4.0, Chloride 104, Carbon Dioxide 19.4 L, Anion Gap 13, BUN 24 H, Creatinine 1.22 H, Estim Creat Clear Calc 46.41 L, Est GFR (MDRD) Non-Af 58 L, BUN/Creatinine Ratio 19.8, Glucose 167 H, Calcium 9.3, T roponin T High Sens 215 H* D, NT pro BNP II 6585 H 07/29/25 01:50: Magnesium 2.1, Troponin T Hi Sens 2 Hr 271 H* 07/29/25 02:54: Sodium 137, Potassium 4.0, Chloride 106, Carbon Dioxide 19.8 L, Anion Gap 11, BUN 24 H, Creatinine 1.31 H, Estim Creat Clear Calc 41.85 L, Est GFR (MDRD) Non-Af 53 L, BUN/Creatinine Ratio 18.5, Glucose 136 H, Calcium 9.3, Triglycerides 125, Cholesterol 97, LDL Cholesterol, Calc 42, VLDL Cholesterol 25, HDL Cholesterol 33 L, Cholesterol/HDL Ratio 2.92, TSH 2.510 07/29/25 06:11: WBC 6.5, RBC 4.01 L, Hgb 11.6 L, Hct 34.7 L, MCV 86.5, MCH 28.9, MCHC 33.4, RDW Std Deviation 47.4 H, RDW Coeff of Zoë 15.0 H, Plt Count 124 L, MPV 9.3, Immature Gran % (Auto) 0.300, Neut % (Auto) 77.3 H, Lymph % (Auto) 12.7 L, [place] % (Auto) 8.8, Eos % (Auto) 0.6, Baso % (Auto) 0.3, Absolute Neuts (auto) 5.0, Absolute Lymphs (auto) 0.83, Nucleated RBC % 0, Troponin T Hi Sens 2 Hr 254 H* Radiography Diagnostic Testing: Radiology Impression Chest X-Ray 07/29/25 00:20 IMPRESSION: Mild increase in interstitial pulmonary congestion/infiltrates. Reading Location: [place] [address] Physical Exam Const alert, oriented x3 and no apparent distress General Appearance: cooperative HEENT normocephalic, head/scalp atraumatic, moist oral mucous membranes and oropharynx normal Eyes EOMs intact bilaterally Neck supple and no JVD Lymph Lymphatic: no lymphedema noted Resp Resp Narrative: Mildly diminished breath sounds bibasilarly. No wheezes or crackles. On room air. Cardio regular rate, regular rhythm, S1 normal heart sound, S2 normal heart sound and no murmurs GI normal to inspection, nondistended, normoactive bowel sounds, soft to palpation, non-tender and non-distended Extremity normal capillary refill General Extremity: no tenderness to palpation of joints or extremities Skin General Skin Exam: no breakdown Neuro no focal motor deficits and no sensory deficits noted Neuro Narrative: impaired vision Motor Exam: general weakness Psych thought process normal and cooperative Appearance: appropriate Assessment & Plan Assessment/Plan (1) Dyspnea: (2) Flash pulmonary edema: PLAN: Plan #Acute on chronic HFrEF * Admitted with a complaint of shortness of breath and found to be in flash pulmonary edema. Has known EF of 45% from 2D echo done in June 2025 but also had regional wall motion abnormalities with lateral wall hypokinesia. * On IV Lasix 40 mg twice daily. Cardiology on board. Blood pressure was markedly elevated when he came in at 209/121 but subsequently trended downwards. He could not be put on the nitro drip as he subsequently became hypotensive. * Continue on Lasix. On atenolol and lisinopril also. #CAD: * Recently admitted for non-STEMI and had cardiac cath which showed severe yurok CAD with patent bypass grafts. * He was placed on medical therapy. On aspirin, plavix and statin as well as lisinopril and metoprolol. #Hypertensive emergency: Now resolved. #Anxiety and depression: On Ativan and sertraline. DVT prophylaxis: Lovenox CODE STATUS: DNR CCA no intubation Disposition: transfer to PCU today Charges/Coding Visit Charges Inpatient E&M: 67051 Subs Hosp L2
--- NOTE | 2025-07-29 15:40 | CASEMGMT ---
Social Work Referral received from RN that pt requesting SW visit. SW met with pt in room and introduced self and role of SW. Pt sharing with SW that pt's dgt recently and was last Friday. Pt open in talking with SW and sharing memories of dgt and feelings regarding loss. Active listening provided as well as emotional support. Pt has large family and many friends who he states are supportive. Pt expressing appreciation for visit. SW will remain available for support as needed. GODFREY Benjamin
--- NOTE | 2025-07-29 17:06 | CHAPLAIN ---
Type of Pastoral Visit _x__ Initial Visit ___ Follow-up Visit ___ On-call Visit ___ General Patient Visit ___ Spiritual Assessment ___ Family Conference ___ Bereavement ___ Rapid Response ___ Code Blue ___ Other (describe below) Pastoral Care Referral From _x__ Patient ___ Family ___ Nurse ___ Physician ___ Wire Machine Cutter ___ Mulling Machine Operator ___ Other (describe below) Sacrament/Intervention _x__ Active listening ___ Anointing ___ Yazdanism _x__ Bereavement ___ Communion ___ Yolanda exploration ___ ___ Life review _x__ Prayer ___ Reconciliation ___ Sacrament of Sick _x__ Supportive presence ___ Wedding ___ Other (describe below) Pastoral Comments patient was seen previously in a recent admission; pt has since experienced a large service for his daughter that suddenly on the same day of his last admission; pt talks about his grief and also about the hope because they are Christians; pt has a with additional needs and this was addressed in conversation also; pt welcomes someone to talk with about his grief and for prayer concerning his health
[2025-07-30 03:11] VITALS: BP 145/82; PULSE 61; RESP 18; TEMP 36.3; O2SAT 97
[2025-07-30 04:34] VITALS: O2SAT 97
[2025-07-30] MEDS: Isosorbide DN 10 MG Tablet PO (05:03)
[2025-07-30 05:06] VITALS: BMI 27.3
[2025-07-30 05:24] LABS: Hematocrit 37.5 % (40-54); Hemoglobin 12.5 g/dL (13.0-16.5); Immature Granulocytes Count 0.020 X10^3/uL (0.0-0.0); Mean Corp Hgb Conc 33.3 g/dL (32-36); Mean Corpuscular Volume 86.0 fL (80-94); Mean Platelet Vol. 9.7 fl (6.2-12.0); NRBC Flagged by Analyzer 0 % (0-5); Platelet Count 144 K/mm3 (150-450); RBC Distribution Width CV 14.9 % (11.6-14.6); RBC Distribution Width SD 46.4 fl (35.1-43.9); Red Blood Count 4.36 M/mm3 (4.6-6.2); White Blood Count 7.0 K/mm3 (4.4-11.0)
[2025-07-30 05:59] LABS: Anion Gap 14 (5-15); BUN 25 mg/dL (4-19); BUN/Creat Ratio 19.8 RATIO (10-20); Calcium,Total 9.3 mg/dL (7.6-11.0); Carbon Dioxide 20.9 mmol/L (21.0-32.0); Chloride 103 mmol/L (98-108); Estimated Creatinine Clearance 42.51 ml/min (50-250); Glucose 99 mg/dL (70-99); Potassium 3.4 mmol/L (3.3-5.1)
[2025-07-30 07:57] VITALS: O2SAT 92
[2025-07-30 08:00] VITALS: PULSE 66; O2SAT 93
[2025-07-30 08:19] VITALS: BP 141/81; PULSE 58; RESP 18; TEMP 36.2; O2SAT 93
[2025-07-30] MEDS: Senna/Docusate Sodium 1 Tablet 2 TABLET PO (08:35)
[2025-07-30] MEDS: Cholecalciferol (VIT D3) 25 MCG TABLET (1,000 UNITS) 50 MCG PO (08:35)
--- NOTE | 2025-07-30 08:48 | PN.CARD_ITS ---
Subjective Subjective Patient seen and evaluated. Appears to be stable had a restful night. Objective Data Vital Signs: Vital Signs Temp Pulse Resp BP Pulse Ox O2 Del Method O2 Flow Rate 97.2 F L 58 L 18 141/81 H 93 Room Air 2 07/30/25 08:19 07/30/25 08:19 07/30/25 08:19 07/30/25 08:19 07/30/25 08:19 07/30/25 08:19 07/30/25 07:57 FiO2 40 07/29/25 09:00 Oxygen Flow Rate (L/min) 2 Oxygen Delivery Method Room Air Weight: 175 lb 0.752 oz Body Mass Index (BMI) 27.3 Intake & Output: Intake and Output for Last 24 Hours 07/28/25 07/29/25 07/30/25 23:59 23:59 23:59 Intake Total 0 / 0 360 / 480 120 / 120 Output Total 1999 / 1999 Balance 0 / 0 -1640 / -1520 120 / 120 Lab / Micro Data 07/30/25 04:10 07/30/25 04:10 Labs: Laboratory Results - last 24 hr 07/30/25 04:10: WBC 7.0, RBC 4.36 L, Hgb 12.5 L, Hct 37.5 L, MCV 86.0, MCH 28.7, MCHC 33.3, RDW Std Deviation 46.4 H, RDW Coeff of Zoë 14.9 H, Plt Count 144 L, MPV 9.7, Immature Gran % (Auto) 0.300, Neut % (Auto) 67.6, Lymph % (Auto) 17.6 L , [place] % (Auto) 10.4 H, Eos % (Auto) 3.7, Baso % (Auto) 0.4, Absolute Neuts (auto) 4.8, Absolute Lymphs (auto) 1.24, Nucleated RBC % 0, Sodium 138, Potassium 3.4, Chloride 103, Carbon Dioxide 20.9 L, Anion Gap 14, BUN 25 H, C reatinine 1.26 H, Estim Creat Clear Calc 42.51 L, Est GFR (MDRD) Non-Af 56 L, BUN/Creatinine Ratio 19.8, Glucose 99, Calcium 9.3 Cardiology Labs/Tests 07/30/25 04:10: WBC 7.0, RBC 4.36 L, Hgb 12.5 L, Hct 37.5 L, MCV 86.0, MCH 28.7, MCHC 33.3, Plt Count 144 L, MPV 9.7, Immature Gran % (Auto) 0.300, Neut % (Auto) 67.6, Lymph % (Auto) 17.6 L, [place] % (Auto) 10.4 H, Eos % (Auto) 3.7, Baso % (Auto) 0.4, Absolute Neuts (auto) 4.8, Nucleated RBC % 0, Sodium 138, Potassium 3.4, Chloride 103, Carbon Dioxide 20.9 L, Anion Gap 14, BUN 25 H, Creatinine 1.26 H, Est GFR (MDRD) Non-Af 56 L, BUN/Creatinine Ratio 19.8, Glucose 99, Calcium 9.3 Rhythm: EKG: ECHO: Stress Test: Cardiac Cath: PCI: CT Surgery: Holter monitor: EPS: PPM: CXR: Chest CT Scan: Physical Exam Const alert and oriented x3 General Appearance: other HEENT normocephalic Eyes PERRL Neck full ROM Carotids: normal carotid upstroke Chest inspection of chest normal Chest: midline sternotomy incision Cardio regular rate and regular rhythm Rhythm: regular rhythm Extremity no clubbing, cyanosis or edema Assessment & Plan Assessment/Plan (1) Flash pulmonary edema: PLAN: He did present with flash pulm edema which was likely secondary to markedly elevated blood pressure. At this time I will suggest that we make some adjustments to the blood pressure medication and also isosorbide. I do not think there is a reason to repeat any testing at this time. He will continue to be treated with oral Lasix with the addition of spironolactone. His last ejection fraction was noted to be mildly reduced and he will continue his guideline directed medical therapy. (2) CAD (coronary artery disease): PLAN: He does have a history of coronary artery disease status post recent cardiac catheterization. Medical management would be the more appropriate therapy at this time. (3) Essential (primary) hypertension: PLAN: His blood pressure appears to be under better control this morning. The plan to be to continue the same with no major changes other than recommended above. Will see how he does. PLAN: Plan He should be stable for outpatient home management.
[2025-07-30 10:00] VITALS: O2SAT 93; O2SAT 95
--- NOTE | 2025-07-30 12:41 | DS.PCM_ITS ---
Providers Date of Admission: 07/29/25 Date of Discharge: 07/30/25 Primary Care Physician: Dr. Robel Onofre, DO Consultations 07/29/25 02:47 Consult: Cardiology Routine Consulting Provider: Jamal Dawson Reason for Consult: flash Pulm edema, resp failure EMERGENT Consult: No MD Notified: Yes Date Notified: 07/29/25 Time Notified: 02:18 Method of Notification: Text Reason For Visit: CHF EXAC, PULM EDEMA, HTN EMERGENCY Diagnosis Discharge Diagnosis (1) Flash pulmonary edema: Status: Acute Code(s): J81.0 - Acute pulmonary edema (2) CAD (coronary artery disease): Status: Acute Code(s): I25.10 - Atherosclerotic heart disease of [place] coronary artery without angina pectoris (3) Essential (primary) hypertension: Status: Chronic Code(s): I10 - Essential (primary) hypertension Plan #Acute on chronic HFrEF * Admitted with a complaint of shortness of breath and found to be in flash pulmonary edema. Has known EF of 45% from 2D echo done in June 2025 but also had regional wall motion abnormalities with lateral wall hypokinesia. * On IV Lasix 40 mg twice daily. Cardiology on board. Blood pressure was markedly elevated when he came in at 209/121 but subsequently trended downwards. He could not be put on the nitro drip as he subsequently became hypotensive. * Continue on Lasix. On atenolol and lisinopril also. #CAD: * Recently admitted for non-STEMI and had cardiac cath which showed severe poarch CAD with patent bypass grafts. * He was placed on medical therapy. On aspirin, plavix and statin as well as lisinopril and metoprolol. #Hypertensive emergency: Now resolved. #Anxiety and depression: On Ativan and sertraline. DVT prophylaxis: Lovenox CODE STATUS: DNR CCA no intubation Disposition: transfer to PCU today Medications at Discharge Home Medications finasteride 5 mg tablet 5 mg PO DAILY prostate 02/23/18 tamsulosin 0.4 mg capsule 0.4 mg PO BID prostate 10/27/19 atenolol 50 mg tablet 50 mg PO DAILY BLOOD PRESSURE 11/18/19 clopidogrel 75 mg tablet 75 mg PO DAILY BLOOD THINNER #90 tabs 02/07/20 simvastatin 20 mg tablet 20 mg PO QHS cholesterol #90 tabs 11/10/20 cholecalciferol (vitamin D3) 50 mcg (2,000 unit) capsule (Vitamin D3) 50 mcg PO DAILY SUPPLEMENT 06/13/22 sertraline 25 mg tablet 50 mg PO DAILY 02/06/24 cyanocobalamin (vitamin B-12) 1,000 mcg/mL injection solution 1,000 mcg IM .COMPLEX 12/14/24 lisinopril 10 mg tablet 10 mg PO DAILY 12/14/24 aspirin 81 mg capsule 81 mg PO DAILY #30 caps 07/19/25 lorazepam 0.5 mg tablet 0.5 mg PO TID PRN PRN panic attack 07/29/25 pantoprazole 40 mg tablet,delayed release 40 mg PO DAILY 07/29/25 furosemide 40 mg tablet 40 mg PO BIDLX #60 tabs 07/30/25 isosorbide dinitrate 10 mg tablet 10 mg PO TID #30 tabs 07/30/25 potassium chloride 20 mEq tablet,extended release (K-Tab) 20 meq PO DAILY #30 tabs 07/30/25 spironolactone 25 mg tablet 25 mg PO DAILY #30 tabs 07/30/25 Hospital Course Operations None Procedures 2-D Echocardiogram Summary of Care Provided Minutes Spent on Discharge: 45 Hospital Course: Patient is an 85-year-old male with a past medical history as outlined was admitted through the ED on 07/29/2025 with a complaint of sudden onset of shortness of breath started the day before admission. He had been admitted a week before for similar symptoms and had a cardiac cath with 3 out of his 4 grafts were found to be patent. He was discharged home at that time but subsequently came back this time again with shortness of breath. His blood pressure was very high at 209/121 on admission. He was given enalapril and Bumex as well as sublingual nitroglycerin which caused his blood pressure to plummeted to 80/50 but subsequently came back up to 122/65. He was initially on BiPAP and was admitted to the ICU. He was admitted and managed for acute flash pulmonary edema in the setting of acute on chronic heart failure with reduced ejection fraction. He had known EF of 45% on 2D echo done in June 2025 which had regional wall motion abnormalities also with lateral hypokinesis. He was diuresed with IV Lasix and placed on home dose of atenolol and lisinopril. Cardiology was consulted. He had Imdur added onmedications. Patient shortness of breath resolved and he was weaned down to room air. He was transferred out of the ICU. He remained stable on the floor and was discharged home on 07/30/2025. He is follow-up with his primary care doctor and with cardiology within 1 to 2 weeks. He was discharged on p.o. Lasix 40 mg daily and p.o. Imdur as well as spironolactone and potassium supplementation. He was continued on his atenolol. Patient seen and examined prior to discharge. He had no active complaints. He had an uneventful night. Review of systems otherwise negative. Labs and vitals reviewed. Home medication reviewed and reconciled. Physical Exam Const alert, oriented x3 and no apparent distress General Appearance: cooperative and comfortable HEENT normocephalic, head/scalp atraumatic, hearing grossly normal bilaterally, moist oral mucous membranes and oropharynx normal Mouth: oral and palatal mucosa normal Eyes EOMs intact bilaterally Neck supple and no JVD Lymph Lymphatic: no lymphedema noted Resp Resp Narrative: Mildly diminished breath sounds bibasilarly. No wheezes or crackles. On room air. Cardio regular rate, regular rhythm, S1 normal heart sound, S2 normal heart sound and no murmurs GI normal to inspection, nondistended, normoactive bowel sounds, soft to palpation, non-tender and non-distended Extremity normal to inspection, full ROM and normal capillary refill General Extremity: no tenderness to palpation of joints or extremities Skin no rashes or lesions noted General Skin Exam: no breakdown Neuro oriented x3, moves all extremities and no focal motor deficits Neuro Narrative: impaired vision Sensorium / Orientation: awake and alert Motor Exam: general weakness Psych thought process normal and cooperative Appearance: appropriate Weight / BMI Weight Weight: 175 lb 0.752 oz Body Mass Index (BMI) 27.3 ABG / Lab / Microbiology Data 07/30/25 04:10 07/30/25 04:10 Laboratory: Laboratory Results - last 24 hr 07/30/25 04:10: WBC 7.0, RBC 4.36 L, Hgb 12.5 L, Hct 37.5 L, MCV 86.0, MCH 28.7, MCHC 33.3, RDW Std Deviation 46.4 H, RDW Coeff of Zoë 14.9 H, Plt Count 144 L, MPV 9.7, Immature Gran % (Auto) 0.300, Neut % (Auto) 67.6, Lymph % (Auto) 17.6 L , [place] % (Auto) 10.4 H, Eos % (Auto) 3.7, Baso % (Auto) 0.4, Absolute Neuts (auto) 4.8, Absolute Lymphs (auto) 1.24, Nucleated RBC % 0, Sodium 138, Potassium 3.4, Chloride 103, Carbon Dioxide 20.9 L, Anion Gap 14, BUN 25 H, C reatinine 1.26 H, Estim Creat Clear Calc 42.51 L, Est GFR (MDRD) Non-Af 56 L, BUN/Creatinine Ratio 19.8, Glucose 99, Calcium 9.3 D/C Instructions Discharge Activity: Return to Normal Activity Weight Bearing Status: Weight bearing as tolerated Call your doctor if you observe: Fever of 101 or Higher, Shortness of breath, Dizziness, Swelling in the ankles, Chest pain and Increased palpitations (irregular heartbeat) DC O2, CPAP, BIPAP Needs Home O2 Discharge instructions: No DC home with Oxygen: No Meaningful Use Info Meaningful Use Meaningful Use Diagnoses (Choose all that apply): CHF CHF MARISSA/ARB ordered at discharge?: Yes Documented LVEF (%): 45 Discharge Plan Admission Admit Date/Time: 07/29/25 02:11 Primary Reason for Your Visit: flash pulmonary edema Attending Provider: Parvin Peterson Primary Care Provider: Robel Onofre Consulting Providers: Rico Holliday; Jamal Dawson Instructions Patient Instructions: Pulmonary Edema Discharge Orders/Prescriptions Prescriptions: New furosemide 40 mg Tablet 40 mg PO BIDLX Qty: 60 2RF isosorbide dinitrate 10 mg Tablet 10 mg PO TID Qty: 30 2RF spironolactone 25 mg Tablet 25 mg PO DAILY Qty: 30 2RF potassium chloride [K-Tab] 20 mEq tablet extended release 20 meq PO DAILY Qty: 30 1RF Continued finasteride 5 mg tablet 5 mg PO DAILY atenolol 50 mg tablet 50 mg PO DAILY sertraline 25 mg tablet 50 mg PO DAILY tamsulosin 0.4 mg capsule 0.4 mg PO BID cholecalciferol (vitamin D3) [Vitamin D3] 50 mcg (2,000 unit) capsule 50 mcg PO DAILY cyanocobalamin (vitamin B-12) 1,000 mcg/mL solution 1,000 mcg IM .COMPLEX Rx Instructions: 1,000 mcg intramuscularly QOWEEK; lisinopril 10 mg tablet 10 mg PO DAILY aspirin 81 mg capsule 81 mg PO DAILY Qty: 30 3RF lorazepam 0.5 mg tablet 0.5 mg PO TID PRN PRN (Reason: panic attack) pantoprazole 40 mg tablet,delayed release (DR/EC) 40 mg PO DAILY clopidogrel 75 mg tablet 75 mg PO DAILY Qty: 90 3RF simvastatin 20 mg tablet 20 mg PO QHS Qty: 90 4RF Referrals / Follow Up: Jamal Dawson MD [Med Staff - Active Staff, Cardiology] - Within 2 Weeks Robel Onofre DO [Primary Care Provider, Medical] - Within 1 Week Disposition Disposition (needs filled in before D/C Order can be placed): Home, Self Care Charges/Coding Visit Charges Inpatient E&M: 99565 Disch Hosp >30min
== END 2025-07-30 13:06 | disposition home or self-care (01) | DRG 291 ==
LOC: ED 07-29 00:24 → ICU 07-29 02:12 → PCU 07-29 16:37
PROVIDERS: Admitting Provider Internal Medicine; Emergency Provider Specialist/Technologist Athletic Trainer; PCP Student in an Organized Health Care Education/Training Program; Visit Provider Student in an Organized Health Care Education/Training Program
DX: I11.0 Hypertensive heart disease with heart failure (principal); J96.01 Acute respiratory failure with hypoxia; I50.23 Acute on chronic systolic (congestive) heart failure; I16.1 Hypertensive emergency; Z66 Do not resuscitate; F32.A Depression, unspecified; E78.2 Mixed hyperlipidemia; I25.10 Atherosclerotic heart disease of native coronary artery without angina pectoris; I25.2 Old myocardial infarction; Z87.891 Personal history of nicotine dependence; Z79.02 Long term (current) use of antithrombotics/antiplatelets; Z79.82 Long term (current) use of aspirin; Z95.5 Presence of coronary angioplasty implant and graft; Z79.899 Other long term (current) drug therapy; Z96.643 Presence of artificial hip joint, bilateral; Z95.1 Presence of aortocoronary bypass graft
CPT/HCPCS: 71045; 80048; 80061; 83735; 83880; 84443; 84484; 85025; 85610; 85730; 93005; 94002; 94668; 97162; 97166; 99285; A4216; J1938